=== PATIENT | male | born 1940 | race Caucasian/White ===

== ENCOUNTER 2017-10-13 08:15 | Outpatient (RCR) | payer MEDICARE, OTHER, SELFPAY ==
[2017-03-18 00:31] VITALS: BP 105/61; PULSE 96; RESP 20; TEMP 35.9
[2017-09-29 09:18] VITALS: BP 115/96; PULSE 113; RESP 20; TEMP 37; BMI 65.4
--- NOTE | 2017-09-29 10:57 | PCM.WC.HP ---
(1) Bilateral edema of lower extremity Status: Chronic Current Visit: Yes Code(s): R60.0 - Localized edema (2) Chronic atrial fibrillation Status: Chronic Current Visit: Yes Code(s): I48.2 - Chronic atrial fibrillation (3) Neuropathic pain, leg, bilateral Status: Chronic Current Visit: Yes Code(s): G57.91 - Unspecified mononeuropathy of right lower limb; G57.92 - Unspecified mononeuropathy of left lower limb (4) Nonhealing ulcer of left lower leg Status: Acute Current Visit: Yes Code(s): L97.829 - Non-pressure chronic ulcer of other part of left lower leg with unspecified severity (5) Nonischemic cardiomyopathy Status: Chronic Current Visit: Yes Code(s): I42.8 - Other cardiomyopathies (6) Open wounds involving multiple regions of lower extremity Status: Chronic Current Visit: Yes Code(s): S81.809A - Unspecified open wound, unspecified lower leg, initial encounter (7) Infected open wound Status: Acute Current Visit: Yes Code(s): T14.8XXA - Other injury of unspecified body region, initial encounter; L08.9 - Local infection of the skin and subcutaneous tissue, unspecified History of Present Illness Date of Service: 09/29/17 Chief Complaint: Follow-up left lower leg ulcers History of Wound: 77-year-old white male who had surgery with Dr. 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 Apparently unbeknown to him he developed some open areas on the left lower leg and neglected them. Now he has very large deep ulcers with necrotic tissue and smell on the left lower leg anterior and posterior leg. Patient has been using his Aquacel silver on it. And not wearing his stockings or compression. There is a lot of edema and redness and cellulitis. Past Medical History Past Medical History: Chronic Problems Nonischemic cardiomyopathy (Chronic) Chronic systolic CHF (congestive heart failure) (Chronic) Chronic atrial fibrillation (Chronic) Bilateral edema of lower extremity (Chronic) Open wounds involving multiple regions of lower extremity (Chronic) Neuropathic pain, leg, bilateral (Chronic) Pain, lower extremity (Chronic) PAOD (peripheral arterial occlusive disease) (Chronic) Peripheral vascular disease of extremity with claudication (Chronic) Surgical History: appendectomy, herniorrhaphy, - - Hand surgery Allergies/Adverse Reactions: Allergies codeine Adverse Reaction (Verified 09/29/17 09:53) Nausea Home Medications: Ambulatory Orders Medication Instructions Recorded Aspirin E.C. [Ecotrin] 81 mg PO DAILY@0800 11/06/15 Furosemide [Lasix] 40 mg PO BID 11/06/15 Potassium Chloride [Klor-Con M10] 10 meq PO BID 11/06/15 Apixaban [Eliquis] 5 mg PO BID 05/24/17 Carvedilol [Coreg (Beta Min)] 12.5 mg PO BID 05/24/17 Lisinopril [Zestril] 10 mg PO DAILY 05/24/17 - Family History Maternal No pertinent history Paternal No pertinent history Lives: Spouse/ Significant Other Smoking Status: Former smoker Tobacco Use: Non-smoker Alcohol: None Drugs: None Review of Systems Constitutional: Denies: Chills, Fever Eyes: Denies: Blurred vision, Drainage, Pain HEENT: Denies: Difficulty Hearing, Difficulty Swallowing, Sore Throat, Visual Changes Cardiovascular: Denies: Chest Pain, Palpitations, Syncope Respiratory: Denies: Cough, Shortness of Breath Gastrointestinal: Denies: Abdominal Pain, Nausea, Vomiting Genitourinary: Denies: Dysuria, Frequency Musculoskeletal: Denies: Joint Pain, Muscle pain Skin: Reports: - - Left anterior and posterior ray is open ulcers with necrosis. Denies: Jaundice, Rash Neurological: Denies: Balance problems, Change in Speech, Difficulty swallowing, Focal weakness Psychiatric: Denies: Anxiety, Depression Endocrine: Denies: Change in Body Habitus Hematologic/ Lymphatic: Denies: Adenopathy - Physical Exam Vital Signs Temp Pulse Resp BP 98.6 F 113 H 20 H 115/96 H 09/29/17 09:18 09/29/17 09:18 09/29/17 09:18 09/29/17 09:18 General: Oriented x3, Cooperative, Well developed HEENT: Atraumatic, PERRLA Oral: Moist Mucosa Neck: Supple, No JVD Lungs: Clear to auscultation, Normal air movement Cardiovascular: Regular rate, Regular Rhythm Abdomen: Bowel Sounds Present, Soft, Non Tender, No Hepato-splenomegaly Extremities: No clubbing, No edema Wound Measurements and Assessment WC - Nurse 1 - General Ulcer Measurement Start: 09/29/17 09:18 Freq: Status: Active Protocol: Activity Type Activity Date Activity User E-Sign Co-Sign Detail Recorded Client Recorded Date Recorded By Document 09/29/17 09:18 DL [id number] 09/29/17 09:50 DL 09/29/17 09:18 Wound Center Nurse 1 [Ulcer Assessment Protocol: WC.WD.LOC] #7 R Ray -Current Size (cm) - Length 0.8 -Current Size (cm) - Width 1.6 -Current Size (cm) - Depth 0.1 -Total Square Cm 1.28 -Photo Taken Yes -Classification - Thickness Unclassifiable (Eschar Covered ) -Exudate Amt None Present (0 %) -Wound Margin Thickened -Granulation Amt None Present (0 %) -Necrosis Amt Large (67-100%) -Necrotic Tissue Type Eschar -Structure Exposed N/A -Texture (Cyndy-wound Skin Appearance) Localized Edema -Moisture (Cyndy-wound Skin Appearance No Abnormality ) -Color (Cyndy-wound Skin Appearance) Erythema Hemosiderin Staining -Temperature (Cyndy-wound Skin No Abnormality Appearance) (Pt Warm) -Foul Odor after Cleansing Yes -Anesthetic Used 4% Lidocaine Solution #6 L Ray -Current Size (cm) - Length 11.1 -Current Size (cm) - Width 4.1 -Current Size (cm) - Depth 0.5 -Total Square Cm 45.51 -Photo Taken Yes -Exudate Amt Medium (34-66%) -Exudate Type Serosanguineous -Wound Margin Thickened -Granulation Amt None Present (0 %) -Necrosis Amt Large (67-100%) -Necrotic Tissue Type Adherent Slough -Structure Exposed N/A -Texture (Cyndy-wound Skin Appearance) Localized Edema Scarring -Moisture (Cyndy-wound Skin Appearance No Abnormality ) -Color (Cyndy-wound Skin Appearance) Erythema Hemosiderin Staining -Temperature (Cyndy-wound Skin No Abnormality Appearance) (Pt Warm) -Ulcer Cleansing Wound Cleanser -Foul Odor after Cleansing Yes -Anesthetic Used 4% Lidocaine Solution #5 LLE Post -Current Size (cm) - Length 7.3 -Current Size (cm) - Width 5.5 -Current Size (cm) - Depth 0.5 -Total Square Cm 40.15 -Photo Taken Yes -Classification - Thickness Full Thickness without Exposed Support Structure -Exudate Amt Medium (34-66%) -Exudate Type Serosanguineous -Wound Margin Thickened -Granulation Amt Small (1-33%) -Granulation Quality Red -Necrosis Amt Large (67-100%) -Necrotic Tissue Type Adherent Slough -Structure Exposed N/A -Texture (Cyndy-wound Skin Appearance) Localized Edema Scarring -Moisture (Cyndy-wound Skin Appearance No Abnormality ) -Color (Cyndy-wound Skin Appearance) Erythema Hemosiderin Staining -Temperature (Cyndy-wound Skin No Abnormality Appearance) (Pt Warm) -Ulcer Cleansing Wound Cleanser -Foul Odor after Cleansing Yes -Anesthetic Used 4% Lidocaine Solution [Edema Assessment] -Right Calf (cm) 39.5 -Right Ankle (cm) 25.9 -Left Calf (cm) 45 -Left Ankle (cm) 25 WC - Nurse 2 - General Ulcer CM Notes Start: 09/29/17 09:18 Freq: Status: Active Protocol: Activity Type Activity Date Activity User E-Sign Co-Sign Detail Recorded Client Recorded Date Recorded By Document 09/29/17 10:12 MW [id number] 09/29/17 10:36 MW 09/29/17 10:12 Wound Center Nurse 2 [Procedure/Treatment] #7 R Ray -Time 10:24 -Correct Patient Yes -Correct Side, Site, Position Yes -Correct Procedure Yes -Procedure Performed No -Post Debridement Size (cm) - Length 0.8 -Post Debridement Size (cm) - Width 1.6 -Post Debridement Size (cm) - Depth 0.1 -Total Square Cm 1.28 -Wound/Ulcer Outcome Not Healed -Ulcer Cleansing Not Cleansed -Foul Odor after Cleansing No -Bioengineered Tissue No -Cetacaine [place] No -Bleeding Controlled with NA -Treatment Response Procedure Tolerated Well #6 L Ray -Time 10:22 -Correct Patient Yes -Correct Side, Site, Position Yes -Correct Procedure Yes -Procedure Performed Yes -Type of Procedure Debridement -Clinical Debridement Subcutaneous -Post Debridement Size (cm) - Length 11.3 -Post Debridement Size (cm) - Width 2.5 -Post Debridement Size (cm) - Depth 0.3 -Total Square Cm 28.25 -Wound/Ulcer Outcome Not Healed -Ulcer Cleansing Rinsed/ Irrigated with Saline -Foul Odor after Cleansing No -Bioengineered Tissue No -Cetacaine [place] No -Bleeding Controlled with Pressure -Treatment Response Procedure Tolerated Well #5 LLE Post -Time 10:23 -Correct Patient Yes -Correct Side, Site, Position Yes -Correct Procedure Yes -Procedure Performed Yes -Type of Procedure Debridement -Clinical Debridement Subcutaneous -Post Debridement Size (cm) - Length 8.8 -Post Debridement Size (cm) - Width 3.5 -Post Debridement Size (cm) - Depth 0.3 -Total Square Cm 30.80 -Wound/Ulcer Outcome Not Healed -Ulcer Cleansing Rinsed/ Irrigated with Saline -Foul Odor after Cleansing No -Bioengineered Tissue No -Cetacaine [place] No -Bleeding Controlled with Pressure -Treatment Response Procedure Tolerated Well [See Physician Procedure note for Specifics] Pain Scale: 0-10 Numeric [Pain] -Is Patient Pain Free? Yes Musculoskeletal: No Tenderness to Palpation of Joints or Extremities Lymphatic: No Cervical, Supraclavicular, or Inguinal Adenopathy Neurological: Cranial nerves II-XII grossly intact, Neuro grossly intact Psych/Mental Status: Normal Affect, Appropriate, Alert and oriented to time, place, person, mood and affect Debridement Note Post-Debridement Measurements/Treatment WC - Nurse 2 - General Ulcer CM Notes Start: 09/29/17 09:18 Freq: Status: Active Protocol: Activity Type Activity Date Activity User E-Sign Co-Sign Detail Recorded Client Recorded Date Recorded By Document 09/29/17 10:12 MW [id number] 09/29/17 10:36 MW 09/29/17 10:12 Wound Center Nurse 2 #7 R Ray -Time 10:24 -Correct Patient Yes -Correct Side, Site, Position Yes -Correct Procedure Yes -Procedure Performed No -Post Debridement Size (cm) - Length 0.8 -Post Debridement Size (cm) - Width 1.6 -Post Debridement Size (cm) - Depth 0.1 -Total Square Cm 1.28 -Wound/Ulcer Outcome Not Healed -Ulcer Cleansing Not Cleansed -Foul Odor after Cleansing No -Bioengineered Tissue No -Cetacaine [place] No -Bleeding Controlled with NA -Treatment Response Procedure Tolerated Well #6 L Ray -Time 10:22 -Correct Patient Yes -Correct Side, Site, Position Yes -Correct Procedure Yes -Procedure Performed Yes -Type of Procedure Debridement -Clinical Debridement Subcutaneous -Post Debridement Size (cm) - Length 11.3 -Post Debridement Size (cm) - Width 2.5 -Post Debridement Size (cm) - Depth 0.3 -Total Square Cm 28.25 -Wound/Ulcer Outcome Not Healed -Ulcer Cleansing Rinsed/ Irrigated with Saline -Foul Odor after Cleansing No -Bioengineered Tissue No -Cetacaine [place] No -Bleeding Controlled with Pressure -Treatment Response Procedure Tolerated Well #5 LLE Post -Time 10:23 -Correct Patient Yes -Correct Side, Site, Position Yes -Correct Procedure Yes -Procedure Performed Yes -Type of Procedure Debridement -Clinical Debridement Subcutaneous -Post Debridement Size (cm) - Length 8.8 -Post Debridement Size (cm) - Width 3.5 -Post Debridement Size (cm) - Depth 0.3 -Total Square Cm 30.80 -Wound/Ulcer Outcome Not Healed -Ulcer Cleansing Rinsed/ Irrigated with Saline -Foul Odor after Cleansing No -Bioengineered Tissue No -Cetacaine [place] No -Bleeding Controlled with Pressure -Treatment Response Procedure Tolerated Well Pain Scale: 0-10 Numeric Is Patient Pain Free? Yes Wound debrided: Left lower posterior ulcer Type of Debridement: Excisional debridement Anesthesia Used: 5% Lidocaine Gel Depth: Down to and including healthy tissue, in the subcutaneous layer Percentage of wound debrided: 100 Instrument Used: 5mm curette, 7mm curette, #15 blade, Forceps, - - Others Tissue Removed: Necrosis devitalized tissue slough Severity: Limited To Skin Breakdown Amount of bleeding with debridement: Mild Bleeding Controlled with: Compression and gauze Patient tolerated procedure well - Additional Wound Wound debrided: Left anterior ray ulcer Type of Debridement: Excisional debridement Anesthesia Used: 5% Lidocaine Gel Depth: Down to and including healthy tissue, in the subcutaneous layer Percentage of wound debrided: 100 Instrument Used: 7mm curette, #15 blade, Forceps - Scissors, - - Scissors Tissue Removed: Necrotic slough devitalized tissue Severity: Limited To Skin Breakdown Amount of bleeding with debridement: Mild Bleeding Controlled with: Compression and gauze Patient tolerated procedure: Patient tolerated procedure well Assessment/Plan Cultures of all lower leg ulcers lab work CBC with differential pre-albumin and a CMP Active Problems Infected open wound (Acute) Nonischemic cardiomyopathy (Chronic) Chronic atrial fibrillation (Chronic) Bilateral edema of lower extremity (Chronic) Open wounds involving multiple regions of lower extremity (Chronic) Neuropathic pain, leg, bilateral (Chronic) Nonhealing ulcer of left lower leg (Acute) Assessment: bilateral lower leg edema. Cellulitis,. Bilateral lower leg edema. Left lower leg ulcer-. 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 Atrial fib to onset. Peripheral vascular disease Plan: Wash bilateral lower legs with Hibiclens apply Santyl to all open areas cover with gauze moistened and then Adaptic gauze and Sanjuana with a double layer Tubigrip to both legs. Follow-up one week. Nursing notes reviewed
[2017-10-06 08:31] VITALS: BP 85/59; PULSE 100; RESP 18; TEMP 37.1; BMI 65.4
--- NOTE | 2017-10-06 09:47 | PN.PCM_ITS ---
(1) Bilateral edema of lower extremity Status: Chronic Current Visit: Yes Code(s): R60.0 - Localized edema (2) Chronic atrial fibrillation Status: Chronic Current Visit: Yes Code(s): I48.2 - Chronic atrial fibrillation (3) Neuropathic pain, leg, bilateral Status: Chronic Current Visit: Yes Code(s): G57.91 - Unspecified mononeuropathy of right lower limb; G57.92 - Unspecified mononeuropathy of left lower limb (4) Nonhealing ulcer of left lower leg Status: Acute Current Visit: Yes Code(s): L97.829 - Non-pressure chronic ulcer of other part of left lower leg with unspecified severity (5) Nonischemic cardiomyopathy Status: Chronic Current Visit: Yes Code(s): I42.8 - Other cardiomyopathies (6) Open wounds involving multiple regions of lower extremity Status: Chronic Current Visit: Yes Code(s): S81.809A - Unspecified open wound, unspecified lower leg, initial encounter (7) Infected open wound Status: Acute Current Visit: Yes Code(s): T14.8XXA - Other injury of unspecified body region, initial encounter; L08.9 - Local infection of the skin and subcutaneous tissue, unspecified Type of Wound Date of Service: 10/06/17 Chief Complaint: Follow-up on bilateral lower leg ulcers History of Wound: 77-year-old white male who had surgery with Dr. 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 Apparently unbeknown to him he developed some open areas on the left lower leg and neglected them. Now he has very large deep ulcers with necrotic tissue and smell on the left lower leg anterior and posterior leg. Patient has been using his Aquacel silver on it. And not wearing his stockings or compression. There is a lot of edema and redness and cellulitis. Progress of Wound: The right lower leg ulcer is healed. The left anterior and posterior open ulcers are half the size they were last week still has a lot of yellow slough but much improved. Smell is gone and patient has been taking sulfa and metronidazole which were correct picks from cultures they were sensitive to both for he is bacteria and anaerobes. She is tolerating medications and treatments well swelling is much improved also wearing a double layer Tubigrip. His history of coxsackie a virus he still goes in a congestive heart failure he is BNP was over 500 his pre-albumin was 22 his regular albumin his blood was within normal limits shows some slight anemia on labs suggested he take iron. - Physical Exam Vital Signs Temp Pulse Resp BP 98.7 F 100 18 85/59 L 10/06/17 08:31 10/06/17 08:31 10/06/17 08:31 10/06/17 08:31 General: Oriented x3, Cooperative, Well developed HEENT: Atraumatic, PERRLA Oral: Moist Mucosa Neck: Supple, No JVD Lungs: Clear to auscultation, Normal air movement Cardiovascular: Regular rate, Regular Rhythm Abdomen: Bowel Sounds Present, Soft, Non Tender, No Hepato-splenomegaly Extremities: No clubbing, No edema, - - Open ulcers anterior and posterior left lower leg Wound Measurements and Assessment WC - Nurse 1 - General Ulcer Measurement Start: 09/29/17 09:18 Freq: Status: Active Protocol: Activity Type Activity Date Activity User E-Sign Co-Sign Detail Recorded Client Recorded Date Recorded By Document 10/06/17 08:31 [id number] 10/06/17 08:51 10/06/17 08:31 Wound Center Nurse 1 [Ulcer Assessment Protocol: .WD.LOC] #7 R Ray -Combined with other wound No -Current Size (cm) - Length 0 -Current Size (cm) - Width 0 -Current Size (cm) - Depth 0 -Total Square Cm 0 -Date of Last Picture (Recall this 10/06/17 field) -Photo Taken Yes -Epithelialization Large 67-100% -Tunneling No -Undermining/Tunneling No -Circular Undermining No -Classification - Thickness Full Thickness without Exposed Support Structure -Exudate Amt None Present (0 %) -Wound Margin Distinct, Outline Attached -Granulation Amt Large (67-100%) -Granulation Quality [place] -Slough/Fibrin No -Necrosis Amt None Present (0 %) -Structure Exposed None/Limited to Skin Breakdown -Texture (Cyndy-wound Skin Appearance) Localized Edema -Moisture (Cyndy-wound Skin Appearance Dry/Scaly ) -Color (Cyndy-wound Skin Appearance) Erythema Hemosiderin Staining -Temperature (Cyndy-wound Skin No Abnormality Appearance) (Pt Warm) -Tenderness on Palpation (Cyndy-wound No Skin Appearance) -Ulcer Cleansing Rinsed/ Irrigated with Saline -Foul Odor after Cleansing No -Anesthetic Used 5% Lidocaine Gel #6 L Ray -Combined with other wound No -Current Size (cm) - Length 9.7 -Current Size (cm) - Width 3.3 -Current Size (cm) - Depth 0.2 -Total Square Cm 32.01 -Photo Taken No -Epithelialization Small 1-33% -Tunneling No -Undermining/Tunneling No -Circular Undermining No -Classification - Thickness Full Thickness without Exposed Support Structure -Exudate Amt Large (67-100%) -Exudate Type Serosanguineous -Wound Margin Fibrotic Scar, Thickened Scar -Granulation Amt Small (1-33%) -Granulation Quality [place] -Slough/Fibrin Yes -Necrosis Amt Large (67-100%) -Necrotic Tissue Type Adherent Slough -Structure Exposed Fascia Fat Layer Exposed -Texture (Cyndy-wound Skin Appearance) Localized Edema Scarring -Color (Cyndy-wound Skin Appearance) Erythema Hemosiderin Staining -Temperature (Cyndy-wound Skin No Abnormality Appearance) (Pt Warm) -Tenderness on Palpation (Cyndy-wound No Skin Appearance) -Ulcer Cleansing Rinsed/ Irrigated with Saline -Foul Odor after Cleansing No -Anesthetic Used 5% Lidocaine Gel #5 LLE Post -Combined with other wound No -Current Size (cm) - Length 5.0 -Current Size (cm) - Width 3.0 -Current Size (cm) - Depth 0.2 -Total Square Cm 15.00 -Photo Taken No -Epithelialization Small 1-33% -Tunneling No -Undermining/Tunneling No -Circular Undermining No -Classification - Thickness Full Thickness without Exposed Support Structure -Exudate Amt Medium (34-66%) -Exudate Type Serous -Wound Margin Fibrotic Scar, Thickened Scar -Granulation Amt Small (1-33%) -Granulation Quality [place] -Slough/Fibrin Yes -Necrosis Amt Medium (34-66%) -Necrotic Tissue Type Adherent Slough -Structure Exposed Fascia Fat Layer Exposed -Texture (Cyndy-wound Skin Appearance) Localized Edema Scarring -Moisture (Cyndy-wound Skin Appearance No Abnormality ) -Color (Cyndy-wound Skin Appearance) Erythema Hemosiderin Staining -Temperature (Cyndy-wound Skin No Abnormality Appearance) (Pt Warm) -Tenderness on Palpation (Cyndy-wound No Skin Appearance) -Ulcer Cleansing Rinsed/ Irrigated with Saline -Foul Odor after Cleansing No -Anesthetic Used 5% Lidocaine Gel [Edema Assessment] -Lower Limb Edema Present Yes -Right Calf (cm) 37.0 -Right Ankle (cm) 25.5 -Left Calf (cm) 41.8 -Left Ankle (cm) 26.0 BETI - Nurse 2 - General Ulcer CM Notes Start: 09/29/17 09:18 Freq: Status: Active Protocol: Activity Type Activity Date Activity User E-Sign Co-Sign Detail Recorded Client Recorded Date Recorded By Document 10/06/17 09:12 MW [id number] 10/06/17 09:17 MW 10/06/17 09:12 Wound Center Nurse 2 [Procedure/Treatment] #6 L Ray -Time 09:12 -Correct Patient Yes -Correct Side, Site, Position Yes -Correct Procedure Yes -Procedure Performed Yes -Type of Procedure Debridement -Clinical Debridement Subcutaneous -Post Debridement Size (cm) - Length 9.8 -Post Debridement Size (cm) - Width 3.5 -Post Debridement Size (cm) - Depth 0.3 -Total Square Cm 34.30 -Wound/Ulcer Outcome Not Healed -Ulcer Cleansing Wound Cleanser -Foul Odor after Cleansing No -Bioengineered Tissue No -Cetacaine [place] No -Bleeding Controlled with Pressure -Treatment Response Procedure Tolerated Well #5 LLE Post -Time 09:13 -Correct Patient Yes -Correct Side, Site, Position Yes -Correct Procedure Yes -Procedure Performed Yes -Type of Procedure Debridement -Clinical Debridement Subcutaneous -Post Debridement Size (cm) - Length 8.7 -Post Debridement Size (cm) - Width 2.5 -Post Debridement Size (cm) - Depth 0.2 -Total Square Cm 21.75 -Wound/Ulcer Outcome Amputation Anticipated -Ulcer Cleansing Rinsed/ Irrigated with Saline -Foul Odor after Cleansing No -Bioengineered Tissue No -Bleeding Controlled with Pressure -Treatment Response Procedure Tolerated Well [See Physician Procedure note for Specifics] Pain Scale: 0-10 Numeric [Pain] -Is Patient Pain Free? Yes Musculoskeletal: No Tenderness to Palpation of Joints or Extremities Lymphatic: No Cervical, Supraclavicular, or Inguinal Adenopathy Neurological: Cranial nerves II-XII grossly intact, Neuro grossly intact Psych/Mental Status: Normal Affect, Appropriate Debridement Note Post-Debridement Measurements/Treatment BETI - Nurse 2 - General Ulcer CM Notes Start: 09/29/17 09:18 Freq: Status: Active Protocol: Activity Type Activity Date Activity User E-Sign Co-Sign Detail Recorded Client Recorded Date Recorded By Document 09/29/17 10:12 MW [id number] 09/29/17 10:36 MW Document 10/06/17 09:12 MW [id number] 10/06/17 09:17 MW 09/29/17 10/06/17 10:12 09:12 Wound Center Nurse 2 #7 R Ray -Time 10:24 -Correct Patient Yes -Correct Side, Site, Position Yes -Correct Procedure Yes -Procedure Performed No -Post Debridement Size (cm) - Length 0.8 -Post Debridement Size (cm) - Width 1.6 -Post Debridement Size (cm) - Depth 0.1 -Total Square Cm 1.28 -Wound/Ulcer Outcome Not Healed -Ulcer Cleansing Not Cleansed -Foul Odor after Cleansing No -Bioengineered Tissue No -Cetacaine [place] No -Bleeding Controlled with NA -Treatment Response Procedure Tolerated Well #6 L Ray -Time 10:22 09:12 -Correct Patient Yes Yes -Correct Side, Site, Position Yes Yes -Correct Procedure Yes Yes -Procedure Performed Yes Yes -Type of Procedure Debridement Debridement -Clinical Debridement Subcutaneous Subcutaneous -Post Debridement Size (cm) - Length 11.3 9.8 -Post Debridement Size (cm) - Width 2.5 3.5 -Post Debridement Size (cm) - Depth 0.3 0.3 -Total Square Cm 28.25 34.30 -Wound/Ulcer Outcome Not Healed Not Healed -Ulcer Cleansing Rinsed/ Wound Cleanser Irrigated with Saline -Foul Odor after Cleansing No No -Bioengineered Tissue No No -Cetacaine [place] No No -Bleeding Controlled with Pressure Pressure -Treatment Response Procedure Procedure Tolerated Well Tolerated Well #5 LLE Post -Time 10:23 09:13 -Correct Patient Yes Yes -Correct Side, Site, Position Yes Yes -Correct Procedure Yes Yes -Procedure Performed Yes Yes -Type of Procedure Debridement Debridement -Clinical Debridement Subcutaneous Subcutaneous -Post Debridement Size (cm) - Length 8.8 8.7 -Post Debridement Size (cm) - Width 3.5 2.5 -Post Debridement Size (cm) - Depth 0.3 0.2 -Total Square Cm 30.80 21.75 -Wound/Ulcer Outcome Not Healed Amputation Anticipated -Ulcer Cleansing Rinsed/ Rinsed/ Irrigated with Irrigated with Saline Saline -Foul Odor after Cleansing No No -Bioengineered Tissue No No -Cetacaine [place] No -Bleeding Controlled with Pressure Pressure -Treatment Response Procedure Procedure Tolerated Well Tolerated Well Pain Scale: 0-10 Numeric Is Patient Pain Free? Yes Yes Wound debrided: Anterior lower ray Type of Debridement: Excisional debridement Anesthesia Used: 5% Lidocaine Gel Depth: Down to and including healthy tissue, in the subcutaneous layer Percentage of wound debrided: 100 Instrument Used: 5mm curette Tissue Removed: Slough and some fibrin Severity: Limited To Skin Breakdown Amount of bleeding with debridement: Mild Bleeding Controlled with: Compression and gauze Patient tolerated procedure well - Additional Wound Wound debrided: Posterior left lower leg other Type of Debridement: Excisional debridement Anesthesia Used: 5% Lidocaine Gel Depth: Down to and including healthy tissue, in the subcutaneous layer Percentage of wound debrided: 100 Instrument Used: 5mm curette Tissue Removed: Slough devitalized tissue Severity: Limited To Skin Breakdown Amount of bleeding with debridement: Mild Bleeding Controlled with: Compression and gauze Patient tolerated procedure: Patient tolerated procedure well Assessment/Plan Active Problems Infected open wound (Acute) Nonischemic cardiomyopathy (Chronic) Chronic atrial fibrillation (Chronic) Bilateral edema of lower extremity (Chronic) Open wounds involving multiple regions of lower extremity (Chronic) Neuropathic pain, leg, bilateral (Chronic) Nonhealing ulcer of left lower leg (Acute) Assessment: bilateral lower leg edema. Cellulitis,. Bilateral lower leg edema. Left lower leg ulcer-. Infection left lower leg ulcer. 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 Atrial fib to onset. Peripheral vascular disease Plan: Wash bilateral lower legs with Hibiclens apply Santyl to all open areas cover with gauze moistened and then Adaptic gauze and Sanjuana with a double layer Tubigrip to both legs. Follow-up one week. Nursing notes reviewed
[2017-10-13 08:26] VITALS: BP 109/72; PULSE 102; RESP 18; TEMP 36.6; BMI 65.4
--- NOTE | 2017-10-13 09:44 | PN.PCM_ITS ---
(1) Bilateral edema of lower extremity Status: Chronic Current Visit: Yes Code(s): R60.0 - Localized edema (2) Chronic atrial fibrillation Status: Chronic Current Visit: Yes Code(s): I48.2 - Chronic atrial fibrillation (3) Neuropathic pain, leg, bilateral Status: Chronic Current Visit: Yes Code(s): G57.91 - Unspecified mononeuropathy of right lower limb; G57.92 - Unspecified mononeuropathy of left lower limb (4) Nonhealing ulcer of left lower leg Status: Acute Current Visit: Yes Code(s): L97.829 - Non-pressure chronic ulcer of other part of left lower leg with unspecified severity (5) Nonischemic cardiomyopathy Status: Chronic Current Visit: Yes Code(s): I42.8 - Other cardiomyopathies (6) Open wounds involving multiple regions of lower extremity Status: Chronic Current Visit: Yes Code(s): S81.809A - Unspecified open wound, unspecified lower leg, initial encounter (7) Infected open wound Status: Acute Current Visit: Yes Code(s): T14.8XXA - Other injury of unspecified body region, initial encounter; L08.9 - Local infection of the skin and subcutaneous tissue, unspecified Type of Wound Date of Service: 10/13/17 Chief Complaint: Follow-up on bilateral lower leg ulcers History of Wound: 77-year-old white male who had surgery with Dr. 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 Apparently unbeknown to him he developed some open areas on the left lower leg and neglected them. Now he has very large deep ulcers with necrotic tissue and smell on the left lower leg anterior and posterior leg. Patient has been using his Aquacel silver on it. And not wearing his stockings or compression. There is a lot of edema and redness and cellulitis. Progress of Wound: The right lower leg ulcer is healed. The left anterior and posterior open ulcers still has a lot of yellow slough but improved. Smell is gone and patient has been taking sulfa and metronidazole which were correct picks from cultures they were sensitive to both for he is bacteria and anaerobes. he is tolerating medications and treatments well swelling is much improved also wearing a double layer Tubigrip. His history of coxsackie a virus he still goes in a congestive heart failure he is BNP was over 500 his pre -albumin was 22 his regular albumin his blood was within normal limits shows some slight anemia on labs suggested he take iron. We have applied for substitute scan for both the ulcers I think he would do very well. Currently we are using Santyl just to clean out all the slough having a hard time on the anterior ulcer to get most of the slough off using a lot of sharps to debride. - Physical Exam Vital Signs Temp Pulse Resp BP 98 F 102 H 18 109/72 10/13/17 08:26 10/13/17 08:26 10/13/17 08:26 10/13/17 08:26 General: Oriented x3, Cooperative, Well developed HEENT: Atraumatic, PERRLA Oral: Moist Mucosa Neck: Supple, No JVD Lungs: Clear to auscultation, Normal air movement Cardiovascular: Regular rate, Regular Rhythm Abdomen: Bowel Sounds Present, Soft, Non Tender, No Hepato-splenomegaly Extremities: No clubbing, No edema, - - Left lower leg anterior posterior open ulcer Skin: Ulcer/ Wound Wound Measurements and Assessment - Nurse 1 - General Ulcer Measurement Start: 09/29/17 09:18 Freq: Status: Active Protocol: Activity Type Activity Date Activity User E-Sign Co-Sign Detail Recorded Client Recorded Date Recorded By Document 10/13/17 08:26 DL [id number] 10/13/17 08:38 DL 10/13/17 08:26 Wound Center Nurse 1 [Ulcer Assessment Protocol: WC.WD.LOC] #6 L [place] -Current Size (cm) - Length 9.8 -Current Size (cm) - Width 2.8 -Current Size (cm) - Depth 0.3 -Total Square Cm 27.44 -Photo Taken No -Exudate Amt Large (67-100%) -Exudate Type Serosanguineous -Wound Margin Distinct, Outline Attached -Granulation Amt Small (1-33%) -Granulation Quality [place] -Necrosis Amt Large (67-100%) -Necrotic Tissue Type Adherent Slough -Structure Exposed N/A -Texture (Cyndy-wound Skin Appearance) Scarring -Moisture (Cyndy-wound Skin Appearance No Abnormality ) -Color (Cyndy-wound Skin Appearance) Hemosiderin Staining -Temperature (Cyndy-wound Skin No Abnormality Appearance) (Pt Warm) -Tenderness on Palpation (Cyndy-wound No Skin Appearance) -Ulcer Cleansing Wound Cleanser -Foul Odor after Cleansing No -Anesthetic Used 4% Lidocaine Solution #5 LLE Post -Current Size (cm) - Length 8.3 -Current Size (cm) - Width 2.7 -Current Size (cm) - Depth 0.3 -Total Square Cm 22.41 -Photo Taken No -Exudate Amt Large (67-100%) -Exudate Type Serosanguineous -Wound Margin Distinct, Outline Attached -Granulation Amt Small (1-33%) -Granulation Quality [place] -Necrosis Amt Large (67-100%) -Necrotic Tissue Type Adherent Slough -Structure Exposed N/A -Texture (Cyndy-wound Skin Appearance) Scarring -Moisture (Cyndy-wound Skin Appearance No Abnormality ) -Color (Cyndy-wound Skin Appearance) Hemosiderin Staining -Temperature (Cyndy-wound Skin No Abnormality Appearance) (Pt Warm) -Tenderness on Palpation (Cyndy-wound No Skin Appearance) -Ulcer Cleansing Wound Cleanser -Foul Odor after Cleansing No -Anesthetic Used 4% Lidocaine Solution [Edema Assessment] -Right Calf (cm) 35.3 -Right Ankle (cm) 25.8 -Left Calf (cm) 39 -Left Ankle (cm) 25 WC - Nurse 2 - General Ulcer CM Notes Start: 09/29/17 09:18 Freq: Status: Active Protocol: Activity Type Activity Date Activity User E-Sign Co-Sign Detail Recorded Client Recorded Date Recorded By Document 10/13/17 09:00 MW [id number] 10/13/17 09:09 MW 10/13/17 09:00 Wound Center Nurse 2 [Procedure/Treatment] #6 L [place] -Time 09:00 -Correct Patient Yes -Correct Side, Site, Position Yes -Correct Procedure Yes -Procedure Performed Yes -Type of Procedure Debridement -Clinical Debridement Subcutaneous -Post Debridement Size (cm) - Length 9.7 -Post Debridement Size (cm) - Width 3.5 -Post Debridement Size (cm) - Depth 0.3 -Total Square Cm 33.95 -Wound/Ulcer Outcome Not Healed -Ulcer Cleansing Rinsed/ Irrigated with Saline -Foul Odor after Cleansing No -Bioengineered Tissue No -Cetacaine [place] No -Bleeding Controlled with Pressure -Treatment Response Procedure Tolerated Well #5 LLE Post -Time 09:00 -Correct Patient Yes -Correct Side, Site, Position Yes -Correct Procedure Yes -Procedure Performed Yes -Type of Procedure Debridement -Clinical Debridement Subcutaneous -Post Debridement Size (cm) - Length 9.0 -Post Debridement Size (cm) - Width 2.0 -Post Debridement Size (cm) - Depth 0.2 -Total Square Cm 18.00 -Wound/Ulcer Outcome Not Healed -Ulcer Cleansing Rinsed/ Irrigated with Saline -Foul Odor after Cleansing No -Bioengineered Tissue No -Cetacaine [place] No -Bleeding Controlled with Pressure -Treatment Response Procedure Tolerated Well [See Physician Procedure note for Specifics] Pain Scale: 0-10 Numeric [Pain] -Is Patient Pain Free? Yes Musculoskeletal: No Tenderness to Palpation of Joints or Extremities Lymphatic: No Cervical, Supraclavicular, or Inguinal Adenopathy Neurological: Cranial nerves II-XII grossly intact, Neuro grossly intact Psych/Mental Status: Normal Affect, Appropriate, Alert and oriented to time, place, person, mood and affect Debridement Note Post-Debridement Measurements/Treatment WC - Nurse 2 - General Ulcer CM Notes Start: 09/29/17 09:18 Freq: Status: Active Protocol: Activity Type Activity Date Activity User E-Sign Co-Sign Detail Recorded Client Recorded Date Recorded By Document 09/29/17 10:12 MW [id number] 09/29/17 10:36 MW Document 10/06/17 09:12 MW [id number] 10/06/17 09:17 MW Document 10/13/17 09:00 MW [id number] 10/13/17 09:09 MW 09/29/17 10/06/17 10/13/17 10:12 09:12 09:00 Wound Center Nurse 2 #7 R Christensen -Time 10:24 -Correct Patient Yes -Correct Side, Site, Position Yes -Correct Procedure Yes -Procedure Performed No -Post Debridement Size (cm) - Length 0.8 -Post Debridement Size (cm) - Width 1.6 -Post Debridement Size (cm) - Depth 0.1 -Total Square Cm 1.28 -Wound/Ulcer Outcome Not Healed -Ulcer Cleansing Not Cleansed -Foul Odor after Cleansing No -Bioengineered Tissue No -Cetacaine [place] No -Bleeding Controlled with NA -Treatment Response Procedure Tolerated Well #6 L [place]ensen -Time 10:22 09:12 09:00 -Correct Patient Yes Yes Yes -Correct Side, Site, Position Yes Yes Yes -Correct Procedure Yes Yes Yes -Procedure Performed Yes Yes Yes -Type of Procedure Debridement Debridement Debridement -Clinical Debridement Subcutaneous Subcutaneous Subcutaneous -Post Debridement Size (cm) - Length 11.3 9.8 9.7 -Post Debridement Size (cm) - Width 2.5 3.5 3.5 -Post Debridement Size (cm) - Depth 0.3 0.3 0.3 -Total Square Cm 28.25 34.30 33.95 -Wound/Ulcer Outcome Not Healed Not Healed Not Healed -Ulcer Cleansing Rinsed/ Wound Cleanser Rinsed/ Irrigated with Irrigated with Saline Saline -Foul Odor after Cleansing No No No -Bioengineered Tissue No No No -Cetacaine [place] No No No -Bleeding Controlled with Pressure Pressure Pressure -Treatment Response Procedure Procedure Procedure Tolerated Well Tolerated Well Tolerated Well #5 LLE Post -Time 10:23 09:13 09:00 -Correct Patient Yes Yes Yes -Correct Side, Site, Position Yes Yes Yes -Correct Procedure Yes Yes Yes -Procedure Performed Yes Yes Yes -Type of Procedure Debridement Debridement Debridement -Clinical Debridement Subcutaneous Subcutaneous Subcutaneous -Post Debridement Size (cm) - Length 8.8 8.7 9.0 -Post Debridement Size (cm) - Width 3.5 2.5 2.0 -Post Debridement Size (cm) - Depth 0.3 0.2 0.2 -Total Square Cm 30.80 21.75 18.00 -Wound/Ulcer Outcome Not Healed Amputation Not Healed Anticipated -Ulcer Cleansing Rinsed/ Rinsed/ Rinsed/ Irrigated with Irrigated with Irrigated with Saline Saline Saline -Foul Odor after Cleansing No No No -Bioengineered Tissue No No No -Cetacaine [place] No No -Bleeding Controlled with Pressure Pressure Pressure -Treatment Response Procedure Procedure Procedure Tolerated Well Tolerated Well Tolerated Well Pain Scale: 0-10 Numeric Is Patient Pain Free? Yes Yes Yes Wound debrided: Left lower leg anterior ulcer Type of Debridement: Excisional debridement Anesthesia Used: 5% Lidocaine Gel Depth: Down to and including healthy tissue, in the subcutaneous layer Percentage of wound debrided: 100 Instrument Used: 5mm curette, #15 blade Tissue Removed: Slough and devitalized tissue Severity: Limited To Skin Breakdown Amount of bleeding with debridement: Mild Bleeding Controlled with: Compression and gauze Patient tolerated procedure well Assessment/Plan Active Problems Infected open wound (Acute) Nonischemic cardiomyopathy (Chronic) Chronic atrial fibrillation (Chronic) Bilateral edema of lower extremity (Chronic) Open wounds involving multiple regions of lower extremity (Chronic) Neuropathic pain, leg, bilateral (Chronic) Nonhealing ulcer of left lower leg (Acute) Assessment: bilateral lower leg edema. Cellulitis,. Bilateral lower leg edema. Left lower leg ulcer-. Infection left lower leg ulcer. 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 Atrial fib to onset. Peripheral vascular disease Plan: Wash bilateral lower legs with Hibiclens apply Santyl to all open areas cover with gauze moistened and then Adaptic gauze and Sanjuana with a double layer Tubigrip to both legs. Follow-up one week. Continue to apply for substitutes skin. Nursing notes reviewed
== END 2017-10-18 23:59 ==
LOC: WC 08:15
PROVIDERS: Family Provider Internal Medicine; PCP Internal Medicine; Visit Provider Nurse Practitioner
DX: I73.9 Peripheral vascular disease, unspecified (principal); L97.821 Non-pressure chronic ulcer of other part of left lower leg limited to breakdown of skin; I48.2 Chronic atrial fibrillation; G57.91 Unspecified mononeuropathy of right lower limb; I42.8 Other cardiomyopathies; R60.0 Localized edema; L03.116 Cellulitis of left lower limb; I50.22 Chronic systolic (congestive) heart failure; Z87.891 Personal history of nicotine dependence
CPT/HCPCS: 11042; 11045; 87070; 87075; 87076; 87077; 87186; 87205; 99213; G0463

== ENCOUNTER 2017-11-10 08:00 | Outpatient (RCR) | payer MEDICARE, OTHER, SELFPAY ==
[2017-10-13 08:26] VITALS: BP 109/72
[2017-10-19 00:04] VITALS: PULSE 102; RESP 18; TEMP 36.6
[2017-10-20 08:34] VITALS: BP 128/87; PULSE 126; RESP 18; TEMP 36.7; BMI 65.4
--- NOTE | 2017-10-20 10:51 | PCM.WC.PN ---
(1) Infected open wound Status: Acute Current Visit: Yes Code(s): T14.8XXA - Other injury of unspecified body region, initial encounter; L08.9 - Local infection of the skin and subcutaneous tissue, unspecified (2) Nonhealing ulcer of left lower leg Status: Acute Current Visit: Yes Code(s): L97.829 - Non-pressure chronic ulcer of other part of left lower leg with unspecified severity (3) Bilateral edema of lower extremity Status: Chronic Current Visit: Yes Code(s): R60.0 - Localized edema (4) Chronic atrial fibrillation Status: Chronic Current Visit: Yes Code(s): I48.2 - Chronic atrial fibrillation (5) Chronic systolic CHF (congestive heart failure) Status: Chronic Current Visit: Yes Code(s): I50.22 - Chronic systolic (congestive) heart failure (6) Neuropathic pain, leg, bilateral Status: Chronic Current Visit: Yes Code(s): G57.91 - Unspecified mononeuropathy of right lower limb; G57.92 - Unspecified mononeuropathy of left lower limb (7) Nonischemic cardiomyopathy Status: Chronic Current Visit: Yes Code(s): I42.8 - Other cardiomyopathies Type of Wound Date of Service: 10/20/17 Chief Complaint: Follow-up on bilateral lower leg ulcers History of Wound: 77-year-old white male who had surgery with Dr. 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 Apparently unbeknown to him he developed some open areas on the left lower leg and neglected them. Now he has very large deep ulcers with necrotic tissue and smell on the left lower leg anterior and posterior leg. Patient has been using his Aquacel silver on it. And not wearing his stockings or compression. There is a lot of edema and redness and cellulitis. Progress of Wound: The right lower leg ulcer is healed. The left anterior and posterior open ulcers still has a lot of yellow slough but improved. Smell is gone and patient has been taking sulfa and metronidazole which were correct picks from cultures they were sensitive to both for he is bacteria and anaerobes. he is tolerating medications and treatments well swelling is much improved also wearing a double layer Tubigrip. His history of coxsackie a virus he still goes in a congestive heart failure he is BNP was over 500 his pre-albumin was 22 his regular albumin his blood was within normal limits shows some slight anemia on labs suggested he take iron. Patient was approved for epiphytic's and received #1 today and the anterior ulcer which he tolerated very well. We will change the dressing to Aquacel to the posterior moistened since most of the slough is gone and is becoming more shallow. - Physical Exam Vital Signs Temp Pulse Resp BP 98.0 F 126 H 18 128/87 H 10/20/17 08:34 10/20/17 08:34 10/20/17 08:34 10/20/17 08:34 General: Oriented x3, Cooperative, Well developed HEENT: Atraumatic, PERRLA Oral: Moist Mucosa Neck: Supple, No JVD Lungs: Clear to auscultation, Normal air movement Cardiovascular: Regular rate, Regular Rhythm Abdomen: Bowel Sounds Present, Soft, Non Tender, No Hepato-splenomegaly Extremities: No clubbing, No edema, - - Left lower leg ulcer anterior and posterior Skin: Ulcer/ Wound Wound Measurements and Assessment - Nurse 1 - General Ulcer Measurement Start: 10/20/17 08:33 Freq: Status: Active Protocol: Activity Type Activity Date Activity User E-Sign Co-Sign Detail Recorded Client Recorded Date Recorded By Document 10/20/17 08:34 [id number] 10/20/17 08:38 TM 10/20/17 08:34 Wound Center Nurse 1 [Ulcer Assessment Protocol: .WD.LOC] #7 R Christensen -Combined with other wound No #6 L Christensen -Combined with other wound No -Current Size (cm) - Length 10.2 -Current Size (cm) - Width 3.2 -Current Size (cm) - Depth 0.2 -Total Square Cm 32.64 -Photo Taken No -Epithelialization None Present -Tunneling No -Undermining/Tunneling No -Circular Undermining No -Classification - Thickness Full Thickness without Exposed Support Structure -Exudate Amt Large (67-100%) -Exudate Type Purulent -Granulation Amt Small (1-33%) -Granulation Quality Red -Slough/Fibrin Yes -Necrosis Amt Large (67-100%) -Necrotic Tissue Type Adherent Slough -Structure Exposed Fascia Fat Layer Exposed -Texture (Cyndy-wound Skin Appearance) Friable Localized Edema Scarring -Moisture (Cyndy-wound Skin Appearance No Abnormality ) -Color (Cyndy-wound Skin Appearance) Erythema Hemosiderin Staining -Temperature (Cyndy-wound Skin No Abnormality Appearance) (Pt Warm) -Tenderness on Palpation (Cyndy-wound No Skin Appearance) -Ulcer Cleansing Rinsed/ Irrigated with Saline -Foul Odor after Cleansing No -Anesthetic Used 5% Lidocaine Gel #5 LLE Post -Combined with other wound No -Current Size (cm) - Length 8.4 -Current Size (cm) - Width 2.4 -Current Size (cm) - Depth 0.2 -Total Square Cm 20.16 -Photo Taken No -Epithelialization None Present -Tunneling No -Undermining/Tunneling No -Circular Undermining No -Classification - Thickness Full Thickness without Exposed Support Structure -Exudate Amt Large (67-100%) -Exudate Type Purulent -Wound Margin Distinct, Outline Attached -Granulation Amt Small (1-33%) -Granulation Quality [place] -Slough/Fibrin Yes -Necrosis Amt Large (67-100%) -Necrotic Tissue Type Adherent Slough -Structure Exposed Fascia Fat Layer Exposed -Texture (Cyndy-wound Skin Appearance) Friable Localized Edema Scarring -Moisture (Cyndy-wound Skin Appearance No Abnormality ) -Color (Cyndy-wound Skin Appearance) Erythema Hemosiderin Staining -Temperature (Cyndy-wound Skin No Abnormality Appearance) (Pt Warm) -Tenderness on Palpation (Cyndy-wound No Skin Appearance) -Ulcer Cleansing Rinsed/ Irrigated with Saline -Foul Odor after Cleansing No -Anesthetic Used 5% Lidocaine Gel [Edema Assessment] -Lower Limb Edema Present Yes -Left Calf (cm) 39.5 -Left Ankle (cm) 25.0 WC - Nurse 2 - General Ulcer CM Notes Start: 10/20/17 08:33 Freq: Status: Active Protocol: Activity Type Activity Date Activity User E-Sign Co-Sign Detail Recorded Client Recorded Date Recorded By Document 10/20/17 09:17 MW [id number] 10/20/17 09:31 MW 10/20/17 09:17 Wound Center Nurse 2 [Procedure/Treatment] #6 L Christensen -Time 09:18 -Correct Patient Yes -Correct Side, Site, Position Yes -Correct Procedure Yes -Procedure Performed Yes -Type of Procedure Debridement -Clinical Debridement Subcutaneous -Post Debridement Size (cm) - Length 9.7 -Post Debridement Size (cm) - Width 3.2 -Post Debridement Size (cm) - Depth 0.3 -Total Square Cm 31.04 -Wound/Ulcer Outcome Not Healed -Ulcer Cleansing Rinsed/ Irrigated with Saline -Foul Odor after Cleansing No -Bioengineered Tissue Yes -Type of bioengineered Tissue EPIFIX -Expiration Date 05/19/22 -Product Lot Number [id number] -Percent Used 100 -Saline Lot Number [id number] -Cetacaine [place] No -Bleeding Controlled with Pressure -Treatment Response Procedure Tolerated Well #5 LLE Post -Time 09:18 -Correct Patient Yes -Correct Side, Site, Position Yes -Correct Procedure Yes -Procedure Performed Yes -Type of Procedure Debridement -Clinical Debridement Subcutaneous -Post Debridement Size (cm) - Length 8.5 -Post Debridement Size (cm) - Width 1.8 -Post Debridement Size (cm) - Depth 0.2 -Total Square Cm 15.30 -Wound/Ulcer Outcome Not Healed -Ulcer Cleansing Rinsed/ Irrigated with Saline -Foul Odor after Cleansing No -Bioengineered Tissue No -Cetacaine [place] No -Bleeding Controlled with Pressure -Treatment Response Procedure Tolerated Well [See Physician Procedure note for Specifics] Pain Scale: 0-10 Numeric [Pain] -Is Patient Pain Free? Yes Musculoskeletal: No Tenderness to Palpation of Joints or Extremities Lymphatic: No Cervical, Supraclavicular, or Inguinal Adenopathy Neurological: Cranial nerves II-XII grossly intact, Neuro grossly intact Psych/Mental Status: Normal Affect, Appropriate, Alert and oriented to time, place, person, mood and affect Debridement Note Post-Debridement Measurements/Treatment WC - Nurse 2 - General Ulcer CM Notes Start: 10/20/17 08:33 Freq: Status: Active Protocol: Activity Type Activity Date Activity User E-Sign Co-Sign Detail Recorded Client Recorded Date Recorded By Document 10/20/17 09:17 MW [id number] 10/20/17 09:31 MW 10/20/17 09:17 Wound Center Nurse 2 #6 L Christensen -Time 09:18 -Correct Patient Yes -Correct Side, Site, Position Yes -Correct Procedure Yes -Procedure Performed Yes -Type of Procedure Debridement -Clinical Debridement Subcutaneous -Post Debridement Size (cm) - Length 9.7 -Post Debridement Size (cm) - Width 3.2 -Post Debridement Size (cm) - Depth 0.3 -Total Square Cm 31.04 -Wound/Ulcer Outcome Not Healed -Ulcer Cleansing Rinsed/ Irrigated with Saline -Foul Odor after Cleansing No -Bioengineered Tissue Yes -Type of bioengineered Tissue EPIFIX -Expiration Date 05/19/22 -Product Lot Number [id number] -Percent Used 100 -Saline Lot Number [id number] -Cetacaine [place] No -Bleeding Controlled with Pressure -Treatment Response Procedure Tolerated Well #5 LLE Post -Time 09:18 -Correct Patient Yes -Correct Side, Site, Position Yes -Correct Procedure Yes -Procedure Performed Yes -Type of Procedure Debridement -Clinical Debridement Subcutaneous -Post Debridement Size (cm) - Length 8.5 -Post Debridement Size (cm) - Width 1.8 -Post Debridement Size (cm) - Depth 0.2 -Total Square Cm 15.30 -Wound/Ulcer Outcome Not Healed -Ulcer Cleansing Rinsed/ Irrigated with Saline -Foul Odor after Cleansing No -Bioengineered Tissue No -Cetacaine [place] No -Bleeding Controlled with Pressure -Treatment Response Procedure Tolerated Well Pain Scale: 0-10 Numeric Is Patient Pain Free? Yes Type of Debridement: Excisional debridement Anesthesia Used: 5% Lidocaine Gel Depth: Down to and including healthy tissue, in the subcutaneous layer, to muscle Percentage of wound debrided: 100 Instrument Used: 5mm curette, #15 blade Tissue Removed: Slough and fibrin Severity: Fat Layer Exposed Amount of bleeding with debridement: Mild Bleeding Controlled with: Compression and gauze Patient tolerated procedure well - Additional Wound Wound debrided: Posterior left lower leg ulcer Type of Debridement: Excisional debridement Anesthesia Used: 5% Lidocaine Gel Depth: Down to and including healthy tissue, in the subcutaneous layer Percentage of wound debrided: 100 Instrument Used: 5mm curette, #15 blade Tissue Removed: Slough and fibrin Severity: Limited To Skin Breakdown Amount of bleeding with debridement: Mild Bleeding Controlled with: Compression and gauze Patient tolerated procedure: Patient tolerated procedure well Assessment/Plan Active Problems Infected open wound (Acute) Nonischemic cardiomyopathy (Chronic) Chronic systolic CHF (congestive heart failure) (Chronic) Chronic atrial fibrillation (Chronic) Bilateral edema of lower extremity (Chronic) Neuropathic pain, leg, bilateral (Chronic) Nonhealing ulcer of left lower leg (Acute) Assessment: bilateral lower leg edema. Cellulitis,. Bilateral lower leg edema. Left lower leg ulcer-. Infection left lower leg ulcer. 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 Atrial fib to onset. Peripheral vascular disease Plan: Wash around bilateral lower leg ulcers. Left lower anterior ulcer do not touch because of the epi flex. Posterior ulcer apply Aquacel silver moistened with Adaptic and moistened gauze wrap and a double layer Tubigrip to bilateral lower legs. Follow-up in 1 week. Nursing notes reviewed
--- NOTE | 2017-10-20 10:59 | PN.PCM_ITS ---
(1) Infected open wound Status: Acute Current Visit: Yes Code(s): T14.8XXA - Other injury of unspecified body region, initial encounter; L08.9 - Local infection of the skin and subcutaneous tissue, unspecified (2) Nonhealing ulcer of left lower leg Status: Acute Current Visit: Yes Code(s): L97.829 - Non-pressure chronic ulcer of other part of left lower leg with unspecified severity (3) Bilateral edema of lower extremity Status: Chronic Current Visit: Yes Code(s): R60.0 - Localized edema (4) Chronic atrial fibrillation Status: Chronic Current Visit: Yes Code(s): I48.2 - Chronic atrial fibrillation (5) Chronic systolic CHF (congestive heart failure) Status: Chronic Current Visit: Yes Code(s): I50.22 - Chronic systolic ( congestive) heart failure (6) Neuropathic pain, leg, bilateral Status: Chronic Current Visit: Yes Code(s): G57.91 - Unspecified mononeuropathy of right lower limb; G57.92 - Unspecified mononeuropathy of left lower limb (7) Nonischemic cardiomyopathy Status: Chronic Current Visit: Yes Code(s): I42.8 - Other cardiomyopathies Type of Wound Date of Service: 10/20/17 Chief Complaint: Follow-up on bilateral lower leg ulcers History of Wound: 77-year-old white male who had surgery with Dr. 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 Apparently unbeknown to him he developed some open areas on the left lower leg and neglected them. Now he has very large deep ulcers with necrotic tissue and smell on the left lower leg anterior and posterior leg. Patient has been using his Aquacel silver on it. And not wearing his stockings or compression. There is a lot of edema and redness and cellulitis. Progress of Wound: The right lower leg ulcer is healed. The left anterior and posterior open ulcers still has a lot of yellow slough but improved. Smell is gone and patient has been taking sulfa and metronidazole which were correct picks from cultures they were sensitive to both for he is bacteria and anaerobes. he is tolerating medications and treatments well swelling is much improved also wearing a double layer Tubigrip. His history of coxsackie a virus he still goes in a congestive heart failure he is BNP was over 500 his pre -albumin was 22 his regular albumin his blood was within normal limits shows some slight anemia on labs suggested he take iron. Patient was approved for epiphytic's and received #1 today and the anterior ulcer which he tolerated very well. We will change the dressing to Aquacel to the posterior moistened since most of the slough is gone and is becoming more shallow. - Physical Exam Vital Signs Temp Pulse Resp BP 98.0 F 126 H 18 128/87 H 10/20/17 08:34 10/20/17 08:34 10/20/17 08:34 10/20/17 08:34 General: Oriented x3, Cooperative, Well developed HEENT: Atraumatic, PERRLA Oral: Moist Mucosa Neck: Supple, No JVD Lungs: Clear to auscultation, Normal air movement Cardiovascular: Regular rate, Regular Rhythm Abdomen: Bowel Sounds Present, Soft, Non Tender, No Hepato-splenomegaly Extremities: No clubbing, No edema, - - Left lower leg ulcer anterior and posterior Skin: Ulcer/ Wound Wound Measurements and Assessment - Nurse 1 - General Ulcer Measurement Start: 10/20/17 08:33 Freq: Status: Active Protocol: Activity Type Activity Date Activity User E-Sign Co-Sign Detail Recorded Client Recorded Date Recorded By Document 10/20/17 08:34 [id number] 10/20/17 08:38 TM 10/20/17 08:34 Wound Center Nurse 1 [Ulcer Assessment Protocol: .WD.LOC] #7 R Christensen -Combined with other wound No #6 L Christensen -Combined with other wound No -Current Size (cm) - Length 10.2 -Current Size (cm) - Width 3.2 -Current Size (cm) - Depth 0.2 -Total Square Cm 32.64 -Photo Taken No -Epithelialization None Present -Tunneling No -Undermining/Tunneling No -Circular Undermining No -Classification - Thickness Full Thickness without Exposed Support Structure -Exudate Amt Large (67-100%) -Exudate Type Purulent -Granulation Amt Small (1-33%) -Granulation Quality Red -Slough/Fibrin Yes -Necrosis Amt Large (67-100%) -Necrotic Tissue Type Adherent Slough -Structure Exposed Fascia Fat Layer Exposed -Texture (Cyndy-wound Skin Appearance) Friable Localized Edema Scarring -Moisture (Cyndy-wound Skin Appearance No Abnormality ) -Color (Cyndy-wound Skin Appearance) Erythema Hemosiderin Staining -Temperature (Cyndy-wound Skin No Abnormality Appearance) (Pt Warm) -Tenderness on Palpation (Cyndy-wound No Skin Appearance) -Ulcer Cleansing Rinsed/ Irrigated with Saline -Foul Odor after Cleansing No -Anesthetic Used 5% Lidocaine Gel #5 LLE Post -Combined with other wound No -Current Size (cm) - Length 8.4 -Current Size (cm) - Width 2.4 -Current Size (cm) - Depth 0.2 -Total Square Cm 20.16 -Photo Taken No -Epithelialization None Present -Tunneling No -Undermining/Tunneling No -Circular Undermining No -Classification - Thickness Full Thickness without Exposed Support Structure -Exudate Amt Large (67-100%) -Exudate Type Purulent -Wound Margin Distinct, Outline Attached -Granulation Amt Small (1-33%) -Granulation Quality [place] -Slough/Fibrin Yes -Necrosis Amt Large (67-100%) -Necrotic Tissue Type Adherent Slough -Structure Exposed Fascia Fat Layer Exposed -Texture (Cyndy-wound Skin Appearance) Friable Localized Edema Scarring -Moisture (Cyndy-wound Skin Appearance No Abnormality ) -Color (Cyndy-wound Skin Appearance) Erythema Hemosiderin Staining -Temperature (Cyndy-wound Skin No Abnormality Appearance) (Pt Warm) -Tenderness on Palpation (Cyndy-wound No Skin Appearance) -Ulcer Cleansing Rinsed/ Irrigated with Saline -Foul Odor after Cleansing No -Anesthetic Used 5% Lidocaine Gel [Edema Assessment] -Lower Limb Edema Present Yes -Left Calf (cm) 39.5 -Left Ankle (cm) 25.0 WC - Nurse 2 - General Ulcer CM Notes Start: 10/20/17 08:33 Freq: Status: Active Protocol: Activity Type Activity Date Activity User E-Sign Co-Sign Detail Recorded Client Recorded Date Recorded By Document 10/20/17 09:17 MW [id number] 10/20/17 09:31 MW 10/20/17 09:17 Wound Center Nurse 2 [Procedure/Treatment] #6 L Christensen -Time 09:18 -Correct Patient Yes -Correct Side, Site, Position Yes -Correct Procedure Yes -Procedure Performed Yes -Type of Procedure Debridement -Clinical Debridement Subcutaneous -Post Debridement Size (cm) - Length 9.7 -Post Debridement Size (cm) - Width 3.2 -Post Debridement Size (cm) - Depth 0.3 -Total Square Cm 31.04 -Wound/Ulcer Outcome Not Healed -Ulcer Cleansing Rinsed/ Irrigated with Saline -Foul Odor after Cleansing No -Bioengineered Tissue Yes -Type of bioengineered Tissue EPIFIX -Expiration Date 05/19/22 -Product Lot Number [id number] -Percent Used 100 -Saline Lot Number [id number] -Cetacaine [place] No -Bleeding Controlled with Pressure -Treatment Response Procedure Tolerated Well #5 LLE Post -Time 09:18 -Correct Patient Yes -Correct Side, Site, Position Yes -Correct Procedure Yes -Procedure Performed Yes -Type of Procedure Debridement -Clinical Debridement Subcutaneous -Post Debridement Size (cm) - Length 8.5 -Post Debridement Size (cm) - Width 1.8 -Post Debridement Size (cm) - Depth 0.2 -Total Square Cm 15.30 -Wound/Ulcer Outcome Not Healed -Ulcer Cleansing Rinsed/ Irrigated with Saline -Foul Odor after Cleansing No -Bioengineered Tissue No -Cetacaine [place] No -Bleeding Controlled with Pressure -Treatment Response Procedure Tolerated Well [See Physician Procedure note for Specifics] Pain Scale: 0-10 Numeric [Pain] -Is Patient Pain Free? Yes Musculoskeletal: No Tenderness to Palpation of Joints or Extremities Lymphatic: No Cervical, Supraclavicular, or Inguinal Adenopathy Neurological: Cranial nerves II-XII grossly intact, Neuro grossly intact Psych/Mental Status: Normal Affect, Appropriate, Alert and oriented to time, place, person, mood and affect Debridement Note Post-Debridement Measurements/Treatment WC - Nurse 2 - General Ulcer CM Notes Start: 10/20/17 08:33 Freq: Status: Active Protocol: Activity Type Activity Date Activity User E-Sign Co-Sign Detail Recorded Client Recorded Date Recorded By Document 10/20/17 09:17 MW [id number] 10/20/17 09:31 MW 10/20/17 09:17 Wound Center Nurse 2 #6 L Christensen -Time 09:18 -Correct Patient Yes -Correct Side, Site, Position Yes -Correct Procedure Yes -Procedure Performed Yes -Type of Procedure Debridement -Clinical Debridement Subcutaneous -Post Debridement Size (cm) - Length 9.7 -Post Debridement Size (cm) - Width 3.2 -Post Debridement Size (cm) - Depth 0.3 -Total Square Cm 31.04 -Wound/Ulcer Outcome Not Healed -Ulcer Cleansing Rinsed/ Irrigated with Saline -Foul Odor after Cleansing No -Bioengineered Tissue Yes -Type of bioengineered Tissue EPIFIX -Expiration Date 05/19/22 -Product Lot Number [id number] -Percent Used 100 -Saline Lot Number [id number] -Cetacaine [place] No -Bleeding Controlled with Pressure -Treatment Response Procedure Tolerated Well #5 LLE Post -Time 09:18 -Correct Patient Yes -Correct Side, Site, Position Yes -Correct Procedure Yes -Procedure Performed Yes -Type of Procedure Debridement -Clinical Debridement Subcutaneous -Post Debridement Size (cm) - Length 8.5 -Post Debridement Size (cm) - Width 1.8 -Post Debridement Size (cm) - Depth 0.2 -Total Square Cm 15.30 -Wound/Ulcer Outcome Not Healed -Ulcer Cleansing Rinsed/ Irrigated with Saline -Foul Odor after Cleansing No -Bioengineered Tissue No -Cetacaine [place] No -Bleeding Controlled with Pressure -Treatment Response Procedure Tolerated Well Pain Scale: 0-10 Numeric Is Patient Pain Free? Yes Type of Debridement: Excisional debridement Anesthesia Used: 5% Lidocaine Gel Depth: Down to and including healthy tissue, in the subcutaneous layer, to muscle Percentage of wound debrided: 100 Instrument Used: 5mm curette, #15 blade Tissue Removed: Slough and fibrin Severity: Fat Layer Exposed Amount of bleeding with debridement: Mild Bleeding Controlled with: Compression and gauze Patient tolerated procedure well - Additional Wound Wound debrided: Posterior left lower leg ulcer Type of Debridement: Excisional debridement Anesthesia Used: 5% Lidocaine Gel Depth: Down to and including healthy tissue, in the subcutaneous layer Percentage of wound debrided: 100 Instrument Used: 5mm curette, #15 blade Tissue Removed: Slough and fibrin Severity: Limited To Skin Breakdown Amount of bleeding with debridement: Mild Bleeding Controlled with: Compression and gauze Patient tolerated procedure: Patient tolerated procedure well Assessment/Plan Active Problems Infected open wound (Acute) Nonischemic cardiomyopathy (Chronic) Chronic systolic CHF (congestive heart failure) (Chronic) Chronic atrial fibrillation (Chronic) Bilateral edema of lower extremity (Chronic) Neuropathic pain, leg, bilateral (Chronic) Nonhealing ulcer of left lower leg (Acute) Assessment: bilateral lower leg edema. Cellulitis,. Bilateral lower leg edema. Left lower leg ulcer-. Infection left lower leg ulcer. 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 Atrial fib to onset. Peripheral vascular disease Plan: Wash around bilateral lower leg ulcers. Left lower anterior ulcer do not touch because of the epi flex. Posterior ulcer apply Aquacel silver moistened with Adaptic and moistened gauze wrap and a double layer Tubigrip to bilateral lower legs. Follow-up in 1 week. Nursing notes reviewed
[2017-10-27 08:15] VITALS: BP 99/57; PULSE 97; RESP 20; TEMP 36.6; BMI 65.4
--- NOTE | 2017-10-27 13:11 | PCM.WC.PN ---
(1) Infected open wound Status: Acute Current Visit: Yes Code(s): T14.8XXA - Other injury of unspecified body region, initial encounter; L08.9 - Local infection of the skin and subcutaneous tissue, unspecified (2) Nonhealing ulcer of left lower leg Status: Acute Current Visit: Yes Code(s): L97.829 - Non-pressure chronic ulcer of other part of left lower leg with unspecified severity (3) Bilateral edema of lower extremity Status: Chronic Current Visit: Yes Code(s): R60.0 - Localized edema (4) Chronic atrial fibrillation Status: Chronic Current Visit: Yes Code(s): I48.2 - Chronic atrial fibrillation (5) Chronic systolic CHF (congestive heart failure) Status: Chronic Current Visit: Yes Code(s): I50.22 - Chronic systolic (congestive) heart failure (6) Neuropathic pain, leg, bilateral Status: Chronic Current Visit: Yes Code(s): G57.91 - Unspecified mononeuropathy of right lower limb; G57.92 - Unspecified mononeuropathy of left lower limb (7) Nonischemic cardiomyopathy Status: Chronic Current Visit: Yes Code(s): I42.8 - Other cardiomyopathies Type of Wound Date of Service: 10/27/17 Chief Complaint: Follow-up on bilateral lower leg ulcers History of Wound: 77-year-old white male who had surgery with Dr. 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 Apparently unbeknown to him he developed some open areas on the left lower leg and neglected them. Now he has very large deep ulcers with necrotic tissue and smell on the left lower leg anterior and posterior leg. Patient has been using his Aquacel silver on it. And not wearing his stockings or compression. There is a lot of edema and redness and cellulitis. Progress of Wound: The left anterior and posterior open ulcers still has a lot of yellow slough but improved. Smell is gone and patient has been taking sulfa and metronidazole which were correct picks from cultures they were sensitive to both for he is bacteria and anaerobes. He is on epi fix #2 and tolerating well anterior ray wound is improving. Swelling is much improved also wearing a double layer Tubigrip. His history of coxsackie a virus he still goes in a congestive heart failure he is BNP was over 500 his pre-albumin was 22 his regular albumin his blood was within normal limits shows some slight anemia on labs suggested he take iron. Patient was approved for epi-fix - Physical Exam Vital Signs Temp Pulse Resp BP 97.8 F 97 20 H 99/57 L 10/27/17 08:15 10/27/17 08:15 10/27/17 08:15 10/27/17 08:15 General: Oriented x3, Cooperative, Well developed HEENT: Atraumatic, PERRLA Oral: Moist Mucosa Neck: Supple, No JVD Lungs: Clear to auscultation, Normal air movement Cardiovascular: Regular rate, Regular Rhythm Abdomen: Bowel Sounds Present, Soft, Non Tender, No Hepato-splenomegaly Extremities: No clubbing, No edema, - - Lower leg anterior posterior ulcer Wound Measurements and Assessment WC - Nurse 1 - General Ulcer Measurement Start: 10/20/17 08:33 Freq: Status: Active Protocol: Activity Type Activity Date Activity User E-Sign Co-Sign Detail Recorded Client Recorded Date Recorded By Document 10/27/17 08:15 DL [id number] 10/27/17 08:29 DL 10/27/17 08:15 Wound Center Nurse 1 [Ulcer Assessment Protocol: WC.WD.LOC] #6 L Ray -Current Size (cm) - Length 9.8 -Current Size (cm) - Width 3 -Current Size (cm) - Depth 0.3 -Total Square Cm 29.4 -Photo Taken Yes -Exudate Amt Medium (34-66%) -Exudate Type Serosanguineous -Wound Margin Distinct, Outline Attached -Granulation Amt Small (1-33%) -Granulation Quality Red -Necrosis Amt Large (67-100%) -Necrotic Tissue Type Adherent Slough -Structure Exposed N/A -Texture (Cyndy-wound Skin Appearance) Scarring -Moisture (Cyndy-wound Skin Appearance No Abnormality ) -Color (Cyndy-wound Skin Appearance) Hemosiderin Staining -Temperature (Cyndy-wound Skin No Abnormality Appearance) (Pt Warm) -Ulcer Cleansing Wound Cleanser -Foul Odor after Cleansing No -Anesthetic Used 4% Lidocaine Solution #5 LLE Post -Current Size (cm) - Length 7.6 -Current Size (cm) - Width 5.4 -Current Size (cm) - Depth 0.3 -Total Square Cm 41.04 -Photo Taken Yes -Exudate Amt Medium (34-66%) -Exudate Type Serosanguineous -Wound Margin Distinct, Outline Attached -Granulation Amt Small (1-33%) -Granulation Quality Red -Necrosis Amt Medium (34-66%) -Necrotic Tissue Type Adherent Slough -Structure Exposed N/A -Texture (Cyndy-wound Skin Appearance) Scarring -Moisture (Cyndy-wound Skin Appearance No Abnormality ) -Color (Cyndy-wound Skin Appearance) Hemosiderin Staining -Temperature (Cyndy-wound Skin No Abnormality Appearance) (Pt Warm) -Ulcer Cleansing Wound Cleanser -Foul Odor after Cleansing No -Anesthetic Used 4% Lidocaine Solution [Edema Assessment] -Right Calf (cm) 36 -Right Ankle (cm) 25 -Left Calf (cm) 40.5 -Left Ankle (cm) 24.5 WC - Nurse 2 - General Ulcer CM Notes Start: 10/20/17 08:33 Freq: Status: Active Protocol: Activity Type Activity Date Activity User E-Sign Co-Sign Detail Recorded Client Recorded Date Recorded By Document 10/27/17 08:48 MW [id number] 10/27/17 09:08 MW 10/27/17 08:48 Wound Center Nurse 2 [Procedure/Treatment] #6 L Ray -Time 08:49 -Correct Patient Yes -Correct Side, Site, Position Yes -Correct Procedure Yes -Procedure Performed Yes -Type of Procedure Debridement -Clinical Debridement Subcutaneous -Post Debridement Size (cm) - Length 9.4 -Post Debridement Size (cm) - Width 2.8 -Post Debridement Size (cm) - Depth 0.3 -Total Square Cm 26.32 -Wound/Ulcer Outcome Not Healed -Ulcer Cleansing Rinsed/ Irrigated with Saline -Foul Odor after Cleansing No -Bioengineered Tissue No -Type of bioengineered Tissue EPIFIX -Expiration Date 05/19/22 -Product Lot Number [id number] -Bleeding Controlled with Pressure -Other SALINE LOT # [id number] -Treatment Response Procedure Tolerated Well #5 LLE Post -Time 08:49 -Correct Patient Yes -Correct Side, Site, Position Yes -Correct Procedure Yes -Procedure Performed Yes -Type of Procedure Debridement -Clinical Debridement Subcutaneous -Post Debridement Size (cm) - Length 8.5 -Post Debridement Size (cm) - Width 1.8 -Post Debridement Size (cm) - Depth 0.2 -Total Square Cm 15.30 -Wound/Ulcer Outcome Not Healed -Ulcer Cleansing Rinsed/ Irrigated with Saline -Foul Odor after Cleansing No -Type of bioengineered Tissue EPIFIX -Bleeding Controlled with Pressure -Treatment Response Procedure Tolerated Well [See Physician Procedure note for Specifics] Pain Scale: 0-10 Numeric [Pain] -Is Patient Pain Free? Yes Musculoskeletal: No Tenderness to Palpation of Joints or Extremities Lymphatic: No Cervical, Supraclavicular, or Inguinal Adenopathy Neurological: Cranial nerves II-XII grossly intact, Neuro grossly intact Psych/Mental Status: Normal Affect, Appropriate Debridement Note Post-Debridement Measurements/Treatment WC - Nurse 2 - General Ulcer CM Notes Start: 10/20/17 08:33 Freq: Status: Active Protocol: Activity Type Activity Date Activity User E-Sign Co-Sign Detail Recorded Client Recorded Date Recorded By Document 10/20/17 09:17 MW [id number] 10/20/17 09:31 MW Document 10/27/17 08:48 MW [id number] 10/27/17 09:08 MW 10/20/17 10/27/17 09:17 08:48 Wound Center Nurse 2 #6 L Ray -Time 09:18 08:49 -Correct Patient Yes Yes -Correct Side, Site, Position Yes Yes -Correct Procedure Yes Yes -Procedure Performed Yes Yes -Type of Procedure Debridement Debridement -Clinical Debridement Subcutaneous Subcutaneous -Post Debridement Size (cm) - Length 9.7 9.4 -Post Debridement Size (cm) - Width 3.2 2.8 -Post Debridement Size (cm) - Depth 0.3 0.3 -Total Square Cm 31.04 26.32 -Wound/Ulcer Outcome Not Healed Not Healed -Ulcer Cleansing Rinsed/ Rinsed/ Irrigated with Irrigated with Saline Saline -Foul Odor after Cleansing No No -Bioengineered Tissue Yes No -Type of bioengineered Tissue EPIFIX EPIFIX -Expiration Date 05/19/22 05/19/22 -Product Lot Number [id number] -Percent Used 100 -Saline Lot Number [id number] -Cetacaine Pierson No -Bleeding Controlled with Pressure Pressure -Other SALINE LOT # [id number] -Treatment Response Procedure Procedure Tolerated Well Tolerated Well #5 LLE Post -Time 09:18 08:49 -Correct Patient Yes Yes -Correct Side, Site, Position Yes Yes -Correct Procedure Yes Yes -Procedure Performed Yes Yes -Type of Procedure Debridement Debridement -Clinical Debridement Subcutaneous Subcutaneous -Post Debridement Size (cm) - Length 8.5 8.5 -Post Debridement Size (cm) - Width 1.8 1.8 -Post Debridement Size (cm) - Depth 0.2 0.2 -Total Square Cm 15.30 15.30 -Wound/Ulcer Outcome Not Healed Not Healed -Ulcer Cleansing Rinsed/ Rinsed/ Irrigated with Irrigated with Saline Saline -Foul Odor after Cleansing No No -Bioengineered Tissue No -Type of bioengineered Tissue EPIFIX -Cetacaine Pierson No -Bleeding Controlled with Pressure Pressure -Treatment Response Procedure Procedure Tolerated Well Tolerated Well Pain Scale: 0-10 Numeric Is Patient Pain Free? Yes Yes Wound debrided: Anterior lower ray ulcer Type of Debridement: Excisional debridement Anesthesia Used: 5% Lidocaine Gel Depth: Down to and including healthy tissue, in the subcutaneous layer Instrument Used: 5mm curette, #15 blade, Forceps, - Tissue Removed: Slough Severity: Limited To Skin Breakdown Amount of bleeding with debridement: Moderate Bleeding Controlled with: Compression and gauze Patient tolerated procedure well - Additional Wound Wound debrided: Cheerier left lower leg ulcer Type of Debridement: Excisional debridement Anesthesia Used: 5% Lidocaine Gel Depth: Down to and including healthy tissue, in the subcutaneous layer Percentage of wound debrided: 100 Instrument Used: 5mm curette Tissue Removed: slough Severity: Fat Layer Exposed Amount of bleeding with debridement: Mild Bleeding Controlled with: Compression and gauze Patient tolerated procedure: Patient tolerated procedure well Assessment/Plan Active Problems Infected open wound (Acute) Nonischemic cardiomyopathy (Chronic) Chronic systolic CHF (congestive heart failure) (Chronic) Chronic atrial fibrillation (Chronic) Bilateral edema of lower extremity (Chronic) Neuropathic pain, leg, bilateral (Chronic) Nonhealing ulcer of left lower leg (Acute) Assessment: bilateral lower leg edema. Cellulitis,. Bilateral lower leg edema. Left lower leg ulcer-. Infection left lower leg ulcer. 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 Atrial fib to onset. Peripheral vascular disease Plan: Wash around bilateral lower leg ulcers. Left lower anterior ulcer do not touch because of the epi flix #2. Posterior ulcer apply Aquacel silver moistened with Adaptic and moistened gauze wrap and a double layer Tubigrip to bilateral lower legs. Follow-up in 1 week. Nursing notes reviewed
--- NOTE | 2017-10-27 13:16 | PN.PCM_ITS ---
(1) Infected open wound Status: Acute Current Visit: Yes Code(s): T14.8XXA - Other injury of unspecified body region, initial encounter; L08.9 - Local infection of the skin and subcutaneous tissue, unspecified (2) Nonhealing ulcer of left lower leg Status: Acute Current Visit: Yes Code(s): L97.829 - Non-pressure chronic ulcer of other part of left lower leg with unspecified severity (3) Bilateral edema of lower extremity Status: Chronic Current Visit: Yes Code(s): R60.0 - Localized edema (4) Chronic atrial fibrillation Status: Chronic Current Visit: Yes Code(s): I48.2 - Chronic atrial fibrillation (5) Chronic systolic CHF (congestive heart failure) Status: Chronic Current Visit: Yes Code(s): I50.22 - Chronic systolic ( congestive) heart failure (6) Neuropathic pain, leg, bilateral Status: Chronic Current Visit: Yes Code(s): G57.91 - Unspecified mononeuropathy of right lower limb; G57.92 - Unspecified mononeuropathy of left lower limb (7) Nonischemic cardiomyopathy Status: Chronic Current Visit: Yes Code(s): I42.8 - Other cardiomyopathies Type of Wound Date of Service: 10/27/17 Chief Complaint: Follow-up on bilateral lower leg ulcers History of Wound: 77-year-old white male who had surgery with Dr. 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 Apparently unbeknown to him he developed some open areas on the left lower leg and neglected them. Now he has very large deep ulcers with necrotic tissue and smell on the left lower leg anterior and posterior leg. Patient has been using his Aquacel silver on it. And not wearing his stockings or compression. There is a lot of edema and redness and cellulitis. Progress of Wound: The left anterior and posterior open ulcers still has a lot of yellow slough but improved. Smell is gone and patient has been taking sulfa and metronidazole which were correct picks from cultures they were sensitive to both for he is bacteria and anaerobes. He is on epi fix #2 and tolerating well anterior ray wound is improving. Swelling is much improved also wearing a double layer Tubigrip. His history of coxsackie a virus he still goes in a congestive heart failure he is BNP was over 500 his pre-albumin was 22 his regular albumin his blood was within normal limits shows some slight anemia on labs suggested he take iron. Patient was approved for epi-fix - Physical Exam Vital Signs Temp Pulse Resp BP 97.8 F 97 20 H 99/57 L 10/27/17 08:15 10/27/17 08:15 10/27/17 08:15 10/27/17 08:15 General: Oriented x3, Cooperative, Well developed HEENT: Atraumatic, PERRLA Oral: Moist Mucosa Neck: Supple, No JVD Lungs: Clear to auscultation, Normal air movement Cardiovascular: Regular rate, Regular Rhythm Abdomen: Bowel Sounds Present, Soft, Non Tender, No Hepato-splenomegaly Extremities: No clubbing, No edema, - - Lower leg anterior posterior ulcer Wound Measurements and Assessment WC - Nurse 1 - General Ulcer Measurement Start: 10/20/17 08:33 Freq: Status: Active Protocol: Activity Type Activity Date Activity User E-Sign Co-Sign Detail Recorded Client Recorded Date Recorded By Document 10/27/17 08:15 DL [id number] 10/27/17 08:29 DL 10/27/17 08:15 Wound Center Nurse 1 [Ulcer Assessment Protocol: WC.WD.LOC] #6 L Ray -Current Size (cm) - Length 9.8 -Current Size (cm) - Width 3 -Current Size (cm) - Depth 0.3 -Total Square Cm 29.4 -Photo Taken Yes -Exudate Amt Medium (34-66%) -Exudate Type Serosanguineous -Wound Margin Distinct, Outline Attached -Granulation Amt Small (1-33%) -Granulation Quality Red -Necrosis Amt Large (67-100%) -Necrotic Tissue Type Adherent Slough -Structure Exposed N/A -Texture (Cyndy-wound Skin Appearance) Scarring -Moisture (Cyndy-wound Skin Appearance No Abnormality ) -Color (Cyndy-wound Skin Appearance) Hemosiderin Staining -Temperature (Cyndy-wound Skin No Abnormality Appearance) (Pt Warm) -Ulcer Cleansing Wound Cleanser -Foul Odor after Cleansing No -Anesthetic Used 4% Lidocaine Solution #5 LLE Post -Current Size (cm) - Length 7.6 -Current Size (cm) - Width 5.4 -Current Size (cm) - Depth 0.3 -Total Square Cm 41.04 -Photo Taken Yes -Exudate Amt Medium (34-66%) -Exudate Type Serosanguineous -Wound Margin Distinct, Outline Attached -Granulation Amt Small (1-33%) -Granulation Quality Red -Necrosis Amt Medium (34-66%) -Necrotic Tissue Type Adherent Slough -Structure Exposed N/A -Texture (Cyndy-wound Skin Appearance) Scarring -Moisture (Cyndy-wound Skin Appearance No Abnormality ) -Color (Cyndy-wound Skin Appearance) Hemosiderin Staining -Temperature (Cyndy-wound Skin No Abnormality Appearance) (Pt Warm) -Ulcer Cleansing Wound Cleanser -Foul Odor after Cleansing No -Anesthetic Used 4% Lidocaine Solution [Edema Assessment] -Right Calf (cm) 36 -Right Ankle (cm) 25 -Left Calf (cm) 40.5 -Left Ankle (cm) 24.5 WC - Nurse 2 - General Ulcer CM Notes Start: 10/20/17 08:33 Freq: Status: Active Protocol: Activity Type Activity Date Activity User E-Sign Co-Sign Detail Recorded Client Recorded Date Recorded By Document 10/27/17 08:48 MW [id number] 10/27/17 09:08 MW 10/27/17 08:48 Wound Center Nurse 2 [Procedure/Treatment] #6 L Ray -Time 08:49 -Correct Patient Yes -Correct Side, Site, Position Yes -Correct Procedure Yes -Procedure Performed Yes -Type of Procedure Debridement -Clinical Debridement Subcutaneous -Post Debridement Size (cm) - Length 9.4 -Post Debridement Size (cm) - Width 2.8 -Post Debridement Size (cm) - Depth 0.3 -Total Square Cm 26.32 -Wound/Ulcer Outcome Not Healed -Ulcer Cleansing Rinsed/ Irrigated with Saline -Foul Odor after Cleansing No -Bioengineered Tissue No -Type of bioengineered Tissue EPIFIX -Expiration Date 05/19/22 -Product Lot Number [id number] -Bleeding Controlled with Pressure -Other SALINE LOT # [id number] -Treatment Response Procedure Tolerated Well #5 LLE Post -Time 08:49 -Correct Patient Yes -Correct Side, Site, Position Yes -Correct Procedure Yes -Procedure Performed Yes -Type of Procedure Debridement -Clinical Debridement Subcutaneous -Post Debridement Size (cm) - Length 8.5 -Post Debridement Size (cm) - Width 1.8 -Post Debridement Size (cm) - Depth 0.2 -Total Square Cm 15.30 -Wound/Ulcer Outcome Not Healed -Ulcer Cleansing Rinsed/ Irrigated with Saline -Foul Odor after Cleansing No -Type of bioengineered Tissue EPIFIX -Bleeding Controlled with Pressure -Treatment Response Procedure Tolerated Well [See Physician Procedure note for Specifics] Pain Scale: 0-10 Numeric [Pain] -Is Patient Pain Free? Yes Musculoskeletal: No Tenderness to Palpation of Joints or Extremities Lymphatic: No Cervical, Supraclavicular, or Inguinal Adenopathy Neurological: Cranial nerves II-XII grossly intact, Neuro grossly intact Psych/Mental Status: Normal Affect, Appropriate Debridement Note Post-Debridement Measurements/Treatment WC - Nurse 2 - General Ulcer CM Notes Start: 10/20/17 08:33 Freq: Status: Active Protocol: Activity Type Activity Date Activity User E-Sign Co-Sign Detail Recorded Client Recorded Date Recorded By Document 10/20/17 09:17 MW [id number] 10/20/17 09:31 MW Document 10/27/17 08:48 MW [id number] 10/27/17 09:08 MW 10/20/17 10/27/17 09:17 08:48 Wound Center Nurse 2 #6 L Ray -Time 09:18 08:49 -Correct Patient Yes Yes -Correct Side, Site, Position Yes Yes -Correct Procedure Yes Yes -Procedure Performed Yes Yes -Type of Procedure Debridement Debridement -Clinical Debridement Subcutaneous Subcutaneous -Post Debridement Size (cm) - Length 9.7 9.4 -Post Debridement Size (cm) - Width 3.2 2.8 -Post Debridement Size (cm) - Depth 0.3 0.3 -Total Square Cm 31.04 26.32 -Wound/Ulcer Outcome Not Healed Not Healed -Ulcer Cleansing Rinsed/ Rinsed/ Irrigated with Irrigated with Saline Saline -Foul Odor after Cleansing No No -Bioengineered Tissue Yes No -Type of bioengineered Tissue EPIFIX EPIFIX -Expiration Date 05/19/22 05/19/22 -Product Lot Number [id number] -Percent Used 100 -Saline Lot Number [id number] -Cetacaine Leander No -Bleeding Controlled with Pressure Pressure -Other SALINE LOT # [id number] -Treatment Response Procedure Procedure Tolerated Well Tolerated Well #5 LLE Post -Time 09:18 08:49 -Correct Patient Yes Yes -Correct Side, Site, Position Yes Yes -Correct Procedure Yes Yes -Procedure Performed Yes Yes -Type of Procedure Debridement Debridement -Clinical Debridement Subcutaneous Subcutaneous -Post Debridement Size (cm) - Length 8.5 8.5 -Post Debridement Size (cm) - Width 1.8 1.8 -Post Debridement Size (cm) - Depth 0.2 0.2 -Total Square Cm 15.30 15.30 -Wound/Ulcer Outcome Not Healed Not Healed -Ulcer Cleansing Rinsed/ Rinsed/ Irrigated with Irrigated with Saline Saline -Foul Odor after Cleansing No No -Bioengineered Tissue No -Type of bioengineered Tissue EPIFIX -Cetacaine Leander No -Bleeding Controlled with Pressure Pressure -Treatment Response Procedure Procedure Tolerated Well Tolerated Well Pain Scale: 0-10 Numeric Is Patient Pain Free? Yes Yes Wound debrided: Anterior lower ray ulcer Type of Debridement: Excisional debridement Anesthesia Used: 5% Lidocaine Gel Depth: Down to and including healthy tissue, in the subcutaneous layer Instrument Used: 5mm curette, #15 blade, Forceps, - Tissue Removed: Slough Severity: Limited To Skin Breakdown Amount of bleeding with debridement: Moderate Bleeding Controlled with: Compression and gauze Patient tolerated procedure well - Additional Wound Wound debrided: Cheerier left lower leg ulcer Type of Debridement: Excisional debridement Anesthesia Used: 5% Lidocaine Gel Depth: Down to and including healthy tissue, in the subcutaneous layer Percentage of wound debrided: 100 Instrument Used: 5mm curette Tissue Removed: slough Severity: Fat Layer Exposed Amount of bleeding with debridement: Mild Bleeding Controlled with: Compression and gauze Patient tolerated procedure: Patient tolerated procedure well Assessment/Plan Active Problems Infected open wound (Acute) Nonischemic cardiomyopathy (Chronic) Chronic systolic CHF (congestive heart failure) (Chronic) Chronic atrial fibrillation (Chronic) Bilateral edema of lower extremity (Chronic) Neuropathic pain, leg, bilateral (Chronic) Nonhealing ulcer of left lower leg (Acute) Assessment: bilateral lower leg edema. Cellulitis,. Bilateral lower leg edema. Left lower leg ulcer-. Infection left lower leg ulcer. 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 Atrial fib to onset. Peripheral vascular disease Plan: Wash around bilateral lower leg ulcers. Left lower anterior ulcer do not touch because of the epi flix #2. Posterior ulcer apply Aquacel silver moistened with Adaptic and moistened gauze wrap and a double layer Tubigrip to bilateral lower legs. Follow-up in 1 week. Nursing notes reviewed
[2017-11-03 08:21] VITALS: BMI 65.4
--- NOTE | 2017-11-03 09:37 | PCM.WC.PN ---
(1) Infected open wound Status: Acute Current Visit: Yes Code(s): T14.8XXA - Other injury of unspecified body region, initial encounter; L08.9 - Local infection of the skin and subcutaneous tissue, unspecified (2) Nonhealing ulcer of left lower leg Status: Acute Current Visit: Yes Code(s): L97.829 - Non-pressure chronic ulcer of other part of left lower leg with unspecified severity (3) Bilateral edema of lower extremity Status: Chronic Current Visit: Yes Code(s): R60.0 - Localized edema (4) Chronic atrial fibrillation Status: Chronic Current Visit: Yes Code(s): I48.2 - Chronic atrial fibrillation (5) Chronic systolic CHF (congestive heart failure) Status: Chronic Current Visit: Yes Code(s): I50.22 - Chronic systolic (congestive) heart failure (6) Neuropathic pain, leg, bilateral Status: Chronic Current Visit: Yes Code(s): G57.91 - Unspecified mononeuropathy of right lower limb; G57.92 - Unspecified mononeuropathy of left lower limb (7) Nonischemic cardiomyopathy Status: Chronic Current Visit: Yes Code(s): I42.8 - Other cardiomyopathies Type of Wound Date of Service: 11/03/17 Chief Complaint: Follow-up on bilateral lower leg ulcers History of Wound: 77-year-old white male who had surgery with Dr. 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 Apparently unbeknown to him he developed some open areas on the left lower leg and neglected them. Now he has very large deep ulcers with necrotic tissue and smell on the left lower leg anterior and posterior leg. Patient has been using his Aquacel silver on it. And not wearing his stockings or compression. There is a lot of edema and redness and cellulitis. Progress of Wound: The left anterior and posterior open ulcers still has a lot of yellow slough but improved. Smell is gone and patient has been taking sulfa and metronidazole which were correct picks from cultures they were sensitive to both for he is bacteria and anaerobes. He is on epi fix #3 and tolerating well anterior ray wound is improving. Swelling is much improved also wearing a double layer Tubigrip. His history of coxsackie a virus he still goes in a congestive heart failure he is BNP was over 500 his pre-albumin was 22 his regular albumin his blood was within normal limits shows some slight anemia on labs suggested he take iron. - Physical Exam Vital Signs Temp Pulse Resp BP 97.8 F 97 20 H 99/57 L 10/27/17 08:15 10/27/17 08:15 10/27/17 08:15 10/27/17 08:15 General: Oriented x3, Cooperative, Well developed HEENT: Atraumatic, PERRLA Oral: Moist Mucosa Neck: Supple, No JVD Lungs: Clear to auscultation, Normal air movement Cardiovascular: Regular rate, Regular Rhythm Abdomen: Bowel Sounds Present, Soft, Non Tender, No Hepato-splenomegaly Extremities: No clubbing, No edema, - - Left lower leg anterior posterior ulcers Wound Measurements and Assessment WC - Nurse 1 - General Ulcer Measurement Start: 10/20/17 08:33 Freq: Status: Active Protocol: Activity Type Activity Date Activity User E-Sign Co-Sign Detail Recorded Client Recorded Date Recorded By Document 11/03/17 08:21 DV [id number] 11/03/17 08:34 DV 11/03/17 08:21 Wound Center Nurse 1 [Ulcer Assessment Protocol: WC.WD.LOC] #6 L Ray -Combined with other wound No -Current Size (cm) - Length 9.5 -Current Size (cm) - Width 2.7 -Current Size (cm) - Depth 0.3 -Total Square Cm 25.65 -Photo Taken No -Epithelialization None Present -Tunneling No -Undermining/Tunneling No -Circular Undermining No -Classification - Thickness Full Thickness without Exposed Support Structure -Exudate Amt Medium (34-66%) -Exudate Type Serosanguineous -Wound Margin Distinct, Outline Attached -Granulation Amt Small (1-33%) -Granulation Quality Pale -Slough/Fibrin Yes -Necrosis Amt Large (67-100%) -Necrotic Tissue Type Adherent Slough -Structure Exposed None/Limited to Skin Breakdown -Texture (Cyndy-wound Skin Appearance) Assessed Localized Edema Scarring -Moisture (Cyndy-wound Skin Appearance Assessed ) Weeping -Color (Cyndy-wound Skin Appearance) Assessed Erythema Hemosiderin Staining -Temperature (Cyndy-wound Skin No Abnormality Appearance) (Pt Warm) -Ulcer Cleansing Wound Cleanser -Foul Odor after Cleansing No -Anesthetic Used 4% Lidocaine Solution #5 LLE Post -Combined with other wound No -Current Size (cm) - Length 8.4 -Current Size (cm) - Width 1.5 -Current Size (cm) - Depth 0.2 -Total Square Cm 12.60 -Photo Taken No -Epithelialization None Present -Tunneling No -Undermining/Tunneling No -Circular Undermining No -Classification - Thickness Full Thickness without Exposed Support Structure -Exudate Amt Medium (34-66%) -Exudate Type Serosanguineous -Wound Margin Distinct, Outline Attached -Granulation Amt Small (1-33%) -Granulation Quality [place] -Slough/Fibrin Yes -Necrosis Amt Large (67-100%) -Necrotic Tissue Type Adherent Slough -Structure Exposed None/Limited to Skin Breakdown -Texture (Cyndy-wound Skin Appearance) Assessed Localized Edema Scarring -Moisture (Cyndy-wound Skin Appearance Assessed ) Weeping -Color (Cyndy-wound Skin Appearance) Assessed Erythema Hemosiderin Staining -Temperature (Cyndy-wound Skin No Abnormality Appearance) (Pt Warm) -Tenderness on Palpation (Cyndy-wound Yes Skin Appearance) -Ulcer Cleansing Wound Cleanser -Foul Odor after Cleansing No -Anesthetic Used 4% Lidocaine Solution [Edema Assessment] -Lower Limb Edema Present Yes -Right Calf (cm) 42.1 -Right Ankle (cm) 25.8 -Left Calf (cm) 44.0 -Point of measurement (cm from the 26.5 medial instep) WC - Nurse 2 - General Ulcer CM Notes Start: 10/20/17 08:33 Freq: Status: Active Protocol: Activity Type Activity Date Activity User E-Sign Co-Sign Detail Recorded Client Recorded Date Recorded By Document 11/03/17 08:50 MW [id number] 11/03/17 09:06 MW 11/03/17 08:50 Wound Center Nurse 2 [Procedure/Treatment] #6 L Ray -Time 08:51 -Correct Patient Yes -Correct Side, Site, Position Yes -Correct Procedure Yes -Procedure Performed Yes -Type of Procedure Debridement -Clinical Debridement Subcutaneous -Post Debridement Size (cm) - Length 9.5 -Post Debridement Size (cm) - Width 3.0 -Post Debridement Size (cm) - Depth 0.3 -Total Square Cm 28.50 -Wound/Ulcer Outcome Not Healed -Ulcer Cleansing Rinsed/ Irrigated with Saline -Foul Odor after Cleansing No -Bioengineered Tissue Yes -Type of bioengineered Tissue EPIFIX -Expiration Date 08/18/22 -Product Lot Number [id number] -Percent Used 100 -Saline Lot Number [id number] -Bleeding Controlled with Pressure -Treatment Response Procedure Tolerated Well #5 LLE Post -Time 08:54 -Correct Patient Yes -Correct Side, Site, Position Yes -Correct Procedure Yes -Procedure Performed Yes -Type of Procedure Debridement -Clinical Debridement Subcutaneous -Post Debridement Size (cm) - Length 8.5 -Post Debridement Size (cm) - Width 1.5 -Post Debridement Size (cm) - Depth 0.2 -Total Square Cm 12.75 -Wound/Ulcer Outcome Not Healed -Ulcer Cleansing Rinsed/ Irrigated with Saline -Foul Odor after Cleansing No -Bleeding Controlled with Pressure -Treatment Response Procedure Tolerated Well [See Physician Procedure note for Specifics] Pain Scale: 0-10 Numeric [Pain] -Is Patient Pain Free? Yes Musculoskeletal: No Tenderness to Palpation of Joints or Extremities Lymphatic: No Cervical, Supraclavicular, or Inguinal Adenopathy Neurological: Cranial nerves II-XII grossly intact, Neuro grossly intact Psych/Mental Status: Normal Affect, Appropriate Debridement Note Post-Debridement Measurements/Treatment WC - Nurse 2 - General Ulcer CM Notes Start: 10/20/17 08:33 Freq: Status: Active Protocol: Activity Type Activity Date Activity User E-Sign Co-Sign Detail Recorded Client Recorded Date Recorded By Document 10/20/17 09:17 MW [id number] 10/20/17 09:31 MW Document 10/27/17 08:48 MW [id number] 10/27/17 09:08 MW Document 11/03/17 08:50 MW [id number] 11/03/17 09:06 MW 10/20/17 10/27/17 11/03/17 09:17 08:48 08:50 Wound Center Nurse 2 #6 L Ray -Time 09:18 08:49 08:51 -Correct Patient Yes Yes Yes -Correct Side, Site, Position Yes Yes Yes -Correct Procedure Yes Yes Yes -Procedure Performed Yes Yes Yes -Type of Procedure Debridement Debridement Debridement -Clinical Debridement Subcutaneous Subcutaneous Subcutaneous -Post Debridement Size (cm) - Length 9.7 9.4 9.5 -Post Debridement Size (cm) - Width 3.2 2.8 3.0 -Post Debridement Size (cm) - Depth 0.3 0.3 0.3 -Total Square Cm 31.04 26.32 28.50 -Wound/Ulcer Outcome Not Healed Not Healed Not Healed -Ulcer Cleansing Rinsed/ Rinsed/ Rinsed/ Irrigated with Irrigated with Irrigated with Saline Saline Saline -Foul Odor after Cleansing No No No -Bioengineered Tissue Yes No Yes -Type of bioengineered Tissue EPIFIX EPIFIX EPIFIX -Expiration Date 05/19/22 05/19/22 08/18/22 -Product Lot Number [id number] -Percent Used 100 100 -Saline Lot Number [id number] -Cetacaine [place] No -Bleeding Controlled with Pressure Pressure Pressure -Other SALINE LOT # [id number] -Treatment Response Procedure Procedure Procedure Tolerated Well Tolerated Well Tolerated Well #5 LLE Post -Time 09:18 08:49 08:54 -Correct Patient Yes Yes Yes -Correct Side, Site, Position Yes Yes Yes -Correct Procedure Yes Yes Yes -Procedure Performed Yes Yes Yes -Type of Procedure Debridement Debridement Debridement -Clinical Debridement Subcutaneous Subcutaneous Subcutaneous -Post Debridement Size (cm) - Length 8.5 8.5 8.5 -Post Debridement Size (cm) - Width 1.8 1.8 1.5 -Post Debridement Size (cm) - Depth 0.2 0.2 0.2 -Total Square Cm 15.30 15.30 12.75 -Wound/Ulcer Outcome Not Healed Not Healed Not Healed -Ulcer Cleansing Rinsed/ Rinsed/ Rinsed/ Irrigated with Irrigated with Irrigated with Saline Saline Saline -Foul Odor after Cleansing No No No -Bioengineered Tissue No -Type of bioengineered Tissue EPIFIX -Cetacaine [place] No -Bleeding Controlled with Pressure Pressure Pressure -Treatment Response Procedure Procedure Procedure Tolerated Well Tolerated Well Tolerated Well Pain Scale: 0-10 Numeric Is Patient Pain Free? Yes Yes Yes Wound debrided: Left anterior ray Type of Debridement: Excisional debridement Anesthesia Used: 5% Lidocaine Gel Depth: Down to and including healthy tissue, in the subcutaneous layer Percentage of wound debrided: 100 Instrument Used: 5mm curette Tissue Removed: Slough and fibrin Severity: Limited To Skin Breakdown Amount of bleeding with debridement: Mild Bleeding Controlled with: Compression and gauze Patient tolerated procedure well - Additional Wound Wound debrided: Left lower posterior ulcer Type of Debridement: Excisional debridement Anesthesia Used: 5% Lidocaine Gel Depth: Down to and including healthy tissue, in the subcutaneous layer Percentage of wound debrided: 100 Instrument Used: 5mm curette Tissue Removed: Slough and fibrin Severity: Limited To Skin Breakdown Amount of bleeding with debridement: Mild Bleeding Controlled with: Pressure, Compression and gauze Patient tolerated procedure: Patient tolerated procedure well Assessment/Plan Recultured back of leg ulcer Active Problems Infected open wound (Acute) Nonischemic cardiomyopathy (Chronic) Chronic systolic CHF (congestive heart failure) (Chronic) Chronic atrial fibrillation (Chronic) Bilateral edema of lower extremity (Chronic) Neuropathic pain, leg, bilateral (Chronic) Nonhealing ulcer of left lower leg (Acute) Assessment: bilateral lower leg edema. Cellulitis,. Bilateral lower leg edema. Left lower leg ulcer-. Infection left lower leg ulcer. 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 Atrial fib to onset. Peripheral vascular disease Plan: Wash around bilateral lower leg ulcers. Left lower anterior ulcer do not touch because of the epi flix #3. Posterior ulcer apply Aquacel silver moistened with Adaptic and moistened gauze wrap and a double layer Tubigrip to bilateral lower legs. Follow-up in 1 week. Nursing notes reviewed
--- NOTE | 2017-11-03 09:41 | PN.PCM_ITS ---
(1) Infected open wound Status: Acute Current Visit: Yes Code(s): T14.8XXA - Other injury of unspecified body region, initial encounter; L08.9 - Local infection of the skin and subcutaneous tissue, unspecified (2) Nonhealing ulcer of left lower leg Status: Acute Current Visit: Yes Code(s): L97.829 - Non-pressure chronic ulcer of other part of left lower leg with unspecified severity (3) Bilateral edema of lower extremity Status: Chronic Current Visit: Yes Code(s): R60.0 - Localized edema (4) Chronic atrial fibrillation Status: Chronic Current Visit: Yes Code(s): I48.2 - Chronic atrial fibrillation (5) Chronic systolic CHF (congestive heart failure) Status: Chronic Current Visit: Yes Code(s): I50.22 - Chronic systolic ( congestive) heart failure (6) Neuropathic pain, leg, bilateral Status: Chronic Current Visit: Yes Code(s): G57.91 - Unspecified mononeuropathy of right lower limb; G57.92 - Unspecified mononeuropathy of left lower limb (7) Nonischemic cardiomyopathy Status: Chronic Current Visit: Yes Code(s): I42.8 - Other cardiomyopathies Type of Wound Date of Service: 11/03/17 Chief Complaint: Follow-up on bilateral lower leg ulcers History of Wound: 77-year-old white male who had surgery with Dr. 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 Apparently unbeknown to him he developed some open areas on the left lower leg and neglected them. Now he has very large deep ulcers with necrotic tissue and smell on the left lower leg anterior and posterior leg. Patient has been using his Aquacel silver on it. And not wearing his stockings or compression. There is a lot of edema and redness and cellulitis. Progress of Wound: The left anterior and posterior open ulcers still has a lot of yellow slough but improved. Smell is gone and patient has been taking sulfa and metronidazole which were correct picks from cultures they were sensitive to both for he is bacteria and anaerobes. He is on epi fix #3 and tolerating well anterior ray wound is improving. Swelling is much improved also wearing a double layer Tubigrip. His history of coxsackie a virus he still goes in a congestive heart failure he is BNP was over 500 his pre-albumin was 22 his regular albumin his blood was within normal limits shows some slight anemia on labs suggested he take iron. - Physical Exam Vital Signs Temp Pulse Resp BP 97.8 F 97 20 H 99/57 L 10/27/17 08:15 10/27/17 08:15 10/27/17 08:15 10/27/17 08:15 General: Oriented x3, Cooperative, Well developed HEENT: Atraumatic, PERRLA Oral: Moist Mucosa Neck: Supple, No JVD Lungs: Clear to auscultation, Normal air movement Cardiovascular: Regular rate, Regular Rhythm Abdomen: Bowel Sounds Present, Soft, Non Tender, No Hepato-splenomegaly Extremities: No clubbing, No edema, - - Left lower leg anterior posterior ulcers Wound Measurements and Assessment WC - Nurse 1 - General Ulcer Measurement Start: 10/20/17 08:33 Freq: Status: Active Protocol: Activity Type Activity Date Activity User E-Sign Co-Sign Detail Recorded Client Recorded Date Recorded By Document 11/03/17 08:21 DV [id number] 11/03/17 08:34 DV 11/03/17 08:21 Wound Center Nurse 1 [Ulcer Assessment Protocol: WC.WD.LOC] #6 L Ray -Combined with other wound No -Current Size (cm) - Length 9.5 -Current Size (cm) - Width 2.7 -Current Size (cm) - Depth 0.3 -Total Square Cm 25.65 -Photo Taken No -Epithelialization None Present -Tunneling No -Undermining/Tunneling No -Circular Undermining No -Classification - Thickness Full Thickness without Exposed Support Structure -Exudate Amt Medium (34-66%) -Exudate Type Serosanguineous -Wound Margin Distinct, Outline Attached -Granulation Amt Small (1-33%) -Granulation Quality Pale -Slough/Fibrin Yes -Necrosis Amt Large (67-100%) -Necrotic Tissue Type Adherent Slough -Structure Exposed None/Limited to Skin Breakdown -Texture (Cyndy-wound Skin Appearance) Assessed Localized Edema Scarring -Moisture (Cyndy-wound Skin Appearance Assessed ) Weeping -Color (Cyndy-wound Skin Appearance) Assessed Erythema Hemosiderin Staining -Temperature (Cyndy-wound Skin No Abnormality Appearance) (Pt Warm) -Ulcer Cleansing Wound Cleanser -Foul Odor after Cleansing No -Anesthetic Used 4% Lidocaine Solution #5 LLE Post -Combined with other wound No -Current Size (cm) - Length 8.4 -Current Size (cm) - Width 1.5 -Current Size (cm) - Depth 0.2 -Total Square Cm 12.60 -Photo Taken No -Epithelialization None Present -Tunneling No -Undermining/Tunneling No -Circular Undermining No -Classification - Thickness Full Thickness without Exposed Support Structure -Exudate Amt Medium (34-66%) -Exudate Type Serosanguineous -Wound Margin Distinct, Outline Attached -Granulation Amt Small (1-33%) -Granulation Quality [place] -Slough/Fibrin Yes -Necrosis Amt Large (67-100%) -Necrotic Tissue Type Adherent Slough -Structure Exposed None/Limited to Skin Breakdown -Texture (Cyndy-wound Skin Appearance) Assessed Localized Edema Scarring -Moisture (Cyndy-wound Skin Appearance Assessed ) Weeping -Color (Cyndy-wound Skin Appearance) Assessed Erythema Hemosiderin Staining -Temperature (Cyndy-wound Skin No Abnormality Appearance) (Pt Warm) -Tenderness on Palpation (Cyndy-wound Yes Skin Appearance) -Ulcer Cleansing Wound Cleanser -Foul Odor after Cleansing No -Anesthetic Used 4% Lidocaine Solution [Edema Assessment] -Lower Limb Edema Present Yes -Right Calf (cm) 42.1 -Right Ankle (cm) 25.8 -Left Calf (cm) 44.0 -Point of measurement (cm from the 26.5 medial instep) WC - Nurse 2 - General Ulcer CM Notes Start: 10/20/17 08:33 Freq: Status: Active Protocol: Activity Type Activity Date Activity User E-Sign Co-Sign Detail Recorded Client Recorded Date Recorded By Document 11/03/17 08:50 MW [id number] 11/03/17 09:06 MW 11/03/17 08:50 Wound Center Nurse 2 [Procedure/Treatment] #6 L Ray -Time 08:51 -Correct Patient Yes -Correct Side, Site, Position Yes -Correct Procedure Yes -Procedure Performed Yes -Type of Procedure Debridement -Clinical Debridement Subcutaneous -Post Debridement Size (cm) - Length 9.5 -Post Debridement Size (cm) - Width 3.0 -Post Debridement Size (cm) - Depth 0.3 -Total Square Cm 28.50 -Wound/Ulcer Outcome Not Healed -Ulcer Cleansing Rinsed/ Irrigated with Saline -Foul Odor after Cleansing No -Bioengineered Tissue Yes -Type of bioengineered Tissue EPIFIX -Expiration Date 08/18/22 -Product Lot Number [id number] -Percent Used 100 -Saline Lot Number [id number] -Bleeding Controlled with Pressure -Treatment Response Procedure Tolerated Well #5 LLE Post -Time 08:54 -Correct Patient Yes -Correct Side, Site, Position Yes -Correct Procedure Yes -Procedure Performed Yes -Type of Procedure Debridement -Clinical Debridement Subcutaneous -Post Debridement Size (cm) - Length 8.5 -Post Debridement Size (cm) - Width 1.5 -Post Debridement Size (cm) - Depth 0.2 -Total Square Cm 12.75 -Wound/Ulcer Outcome Not Healed -Ulcer Cleansing Rinsed/ Irrigated with Saline -Foul Odor after Cleansing No -Bleeding Controlled with Pressure -Treatment Response Procedure Tolerated Well [See Physician Procedure note for Specifics] Pain Scale: 0-10 Numeric [Pain] -Is Patient Pain Free? Yes Musculoskeletal: No Tenderness to Palpation of Joints or Extremities Lymphatic: No Cervical, Supraclavicular, or Inguinal Adenopathy Neurological: Cranial nerves II-XII grossly intact, Neuro grossly intact Psych/Mental Status: Normal Affect, Appropriate Debridement Note Post-Debridement Measurements/Treatment WC - Nurse 2 - General Ulcer CM Notes Start: 10/20/17 08:33 Freq: Status: Active Protocol: Activity Type Activity Date Activity User E-Sign Co-Sign Detail Recorded Client Recorded Date Recorded By Document 10/20/17 09:17 MW [id number] 10/20/17 09:31 MW Document 10/27/17 08:48 MW [id number] 10/27/17 09:08 MW Document 11/03/17 08:50 MW [id number] 11/03/17 09:06 MW 10/20/17 10/27/17 11/03/17 09:17 08:48 08:50 Wound Center Nurse 2 #6 L Ray -Time 09:18 08:49 08:51 -Correct Patient Yes Yes Yes -Correct Side, Site, Position Yes Yes Yes -Correct Procedure Yes Yes Yes -Procedure Performed Yes Yes Yes -Type of Procedure Debridement Debridement Debridement -Clinical Debridement Subcutaneous Subcutaneous Subcutaneous -Post Debridement Size (cm) - Length 9.7 9.4 9.5 -Post Debridement Size (cm) - Width 3.2 2.8 3.0 -Post Debridement Size (cm) - Depth 0.3 0.3 0.3 -Total Square Cm 31.04 26.32 28.50 -Wound/Ulcer Outcome Not Healed Not Healed Not Healed -Ulcer Cleansing Rinsed/ Rinsed/ Rinsed/ Irrigated with Irrigated with Irrigated with Saline Saline Saline -Foul Odor after Cleansing No No No -Bioengineered Tissue Yes No Yes -Type of bioengineered Tissue EPIFIX EPIFIX EPIFIX -Expiration Date 05/19/22 05/19/22 08/18/22 -Product Lot Number [id number] -Percent Used 100 100 -Saline Lot Number [id number] -Cetacaine [place] No -Bleeding Controlled with Pressure Pressure Pressure -Other SALINE LOT # [id number] -Treatment Response Procedure Procedure Procedure Tolerated Well Tolerated Well Tolerated Well #5 LLE Post -Time 09:18 08:49 08:54 -Correct Patient Yes Yes Yes -Correct Side, Site, Position Yes Yes Yes -Correct Procedure Yes Yes Yes -Procedure Performed Yes Yes Yes -Type of Procedure Debridement Debridement Debridement -Clinical Debridement Subcutaneous Subcutaneous Subcutaneous -Post Debridement Size (cm) - Length 8.5 8.5 8.5 -Post Debridement Size (cm) - Width 1.8 1.8 1.5 -Post Debridement Size (cm) - Depth 0.2 0.2 0.2 -Total Square Cm 15.30 15.30 12.75 -Wound/Ulcer Outcome Not Healed Not Healed Not Healed -Ulcer Cleansing Rinsed/ Rinsed/ Rinsed/ Irrigated with Irrigated with Irrigated with Saline Saline Saline -Foul Odor after Cleansing No No No -Bioengineered Tissue No -Type of bioengineered Tissue EPIFIX -Cetacaine [place] No -Bleeding Controlled with Pressure Pressure Pressure -Treatment Response Procedure Procedure Procedure Tolerated Well Tolerated Well Tolerated Well Pain Scale: 0-10 Numeric Is Patient Pain Free? Yes Yes Yes Wound debrided: Left anterior ray Type of Debridement: Excisional debridement Anesthesia Used: 5% Lidocaine Gel Depth: Down to and including healthy tissue, in the subcutaneous layer Percentage of wound debrided: 100 Instrument Used: 5mm curette Tissue Removed: Slough and fibrin Severity: Limited To Skin Breakdown Amount of bleeding with debridement: Mild Bleeding Controlled with: Compression and gauze Patient tolerated procedure well - Additional Wound Wound debrided: Left lower posterior ulcer Type of Debridement: Excisional debridement Anesthesia Used: 5% Lidocaine Gel Depth: Down to and including healthy tissue, in the subcutaneous layer Percentage of wound debrided: 100 Instrument Used: 5mm curette Tissue Removed: Slough and fibrin Severity: Limited To Skin Breakdown Amount of bleeding with debridement: Mild Bleeding Controlled with: Pressure, Compression and gauze Patient tolerated procedure: Patient tolerated procedure well Assessment/Plan Recultured back of leg ulcer Active Problems Infected open wound (Acute) Nonischemic cardiomyopathy (Chronic) Chronic systolic CHF (congestive heart failure) (Chronic) Chronic atrial fibrillation (Chronic) Bilateral edema of lower extremity (Chronic) Neuropathic pain, leg, bilateral (Chronic) Nonhealing ulcer of left lower leg (Acute) Assessment: bilateral lower leg edema. Cellulitis,. Bilateral lower leg edema. Left lower leg ulcer-. Infection left lower leg ulcer. 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 Atrial fib to onset. Peripheral vascular disease Plan: Wash around bilateral lower leg ulcers. Left lower anterior ulcer do not touch because of the epi flix #3. Posterior ulcer apply Aquacel silver moistened with Adaptic and moistened gauze wrap and a double layer Tubigrip to bilateral lower legs. Follow-up in 1 week. Nursing notes reviewed
[2017-11-10 08:23] VITALS: BP 146/57; PULSE 113; RESP 18; TEMP 36.9; BMI 65.4
--- NOTE | 2017-11-10 09:31 | PCM.WC.PN ---
(1) Infected open wound Status: Acute Current Visit: Yes Code(s): T14.8XXA - Other injury of unspecified body region, initial encounter; L08.9 - Local infection of the skin and subcutaneous tissue, unspecified (2) Nonhealing ulcer of left lower leg Status: Acute Current Visit: Yes Code(s): L97.829 - Non-pressure chronic ulcer of other part of left lower leg with unspecified severity (3) Bilateral edema of lower extremity Status: Chronic Current Visit: Yes Code(s): R60.0 - Localized edema (4) Chronic atrial fibrillation Status: Chronic Current Visit: Yes Code(s): I48.2 - Chronic atrial fibrillation (5) Chronic systolic CHF (congestive heart failure) Status: Chronic Current Visit: Yes Code(s): I50.22 - Chronic systolic (congestive) heart failure (6) Neuropathic pain, leg, bilateral Status: Chronic Current Visit: Yes Code(s): G57.91 - Unspecified mononeuropathy of right lower limb; G57.92 - Unspecified mononeuropathy of left lower limb (7) Nonischemic cardiomyopathy Status: Chronic Current Visit: Yes Code(s): I42.8 - Other cardiomyopathies Type of Wound Date of Service: 11/10/17 Chief Complaint: Follow-up on bilateral lower leg ulcers History of Wound: 77-year-old white male who had surgery with Dr. 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 Apparently unbeknown to him he developed some open areas on the left lower leg and neglected them. Now he has very large deep ulcers with necrotic tissue and smell on the left lower leg anterior and posterior leg. Patient has been using his Aquacel silver on it. And not wearing his stockings or compression. There is a lot of edema and redness and cellulitis. Progress of Wound: The left anterior and posterior open ulcers still has a lot of yellow slough but improved. Will obtain another infection in his left lower leg anterior posterior will hold on the epi fix this week. We saw that there was no movement and improvement with the epi fix. He is on epi fix #3 and tolerating well anterior ray wound is improving. Swelling is much improved also wearing a double layer Tubigrip. His history of coxsackie a virus he still goes in a congestive heart failure he is BNP was over 500 his pre-albumin was 22 his regular albumin his blood was within normal limits shows some slight anemia on labs suggested he take iron. - Physical Exam Vital Signs Temp Pulse Resp BP 98.4 F 113 H 18 146/57 H 11/10/17 08:23 11/10/17 08:23 11/10/17 08:23 11/10/17 08:23 General: Oriented x3, Cooperative, Well developed HEENT: Atraumatic, PERRLA Oral: Moist Mucosa Neck: Supple, No JVD Lungs: Clear to auscultation, Normal air movement Cardiovascular: Regular rate, Regular Rhythm Abdomen: Bowel Sounds Present, Soft, Non Tender, No Hepato-splenomegaly Extremities: No clubbing, No edema Skin: - - Lower anterior posterior ray Wound Measurements and Assessment WC - Nurse 1 - General Ulcer Measurement Start: 10/20/17 08:33 Freq: Status: Active Protocol: Activity Type Activity Date Activity User E-Sign Co-Sign Detail Recorded Client Recorded Date Recorded By Document 11/10/17 08:23 [id number] 11/10/17 08:25 11/10/17 08:23 Wound Center Nurse 1 [Ulcer Assessment] #6 L Ray -Combined with other wound No -Current Size (cm) - Length 9.5 -Current Size (cm) - Width 3.5 -Current Size (cm) - Depth 0.2 -Total Square Cm 33.25 -Photo Taken No -Epithelialization Small 1-33% -Tunneling No -Undermining/Tunneling No -Circular Undermining No -Classification - Thickness Full Thickness without Exposed Support Structure -Exudate Amt Large (67-100%) -Exudate Type Serosanguineous -Wound Margin Fibrotic Scar, Thickened Scar -Granulation Amt Medium (34-66%) -Granulation Quality [place] -Slough/Fibrin Yes -Necrosis Amt Medium (34-66%) -Necrotic Tissue Type Adherent Slough -Structure Exposed Fascia Fat Layer Exposed -Texture (Cyndy-wound Skin Appearance) Friable Localized Edema Scarring -Moisture (Cyndy-wound Skin Appearance No Abnormality ) -Color ([place]yndy-wound Skin Appearance) Erythema Hemosiderin Staining -Temperature ([place]yndy-wound Skin No Abnormality Appearance) (Pt Warm) -Tenderness on Palpation (Cyndy-wound No Skin Appearance) -Ulcer Cleansing Rinsed/ Irrigated with Saline -Foul Odor after Cleansing No -Anesthetic Used 5% Lidocaine Gel #5 LLE Post -Combined with other wound No -Current Size (cm) - Length 8.4 -Current Size (cm) - Width 1.8 -Current Size (cm) - Depth 0.2 -Total Square Cm 15.12 -Photo Taken No -Epithelialization None Present -Tunneling No -Undermining/Tunneling No -Circular Undermining No -Classification - Thickness Full Thickness without Exposed Support Structure -Exudate Amt Medium (34-66%) -Exudate Type Serosanguineous -Wound Margin Fibrotic Scar, Thickened Scar -Granulation Amt Medium (34-66%) -Granulation Quality [place] -Slough/Fibrin Yes -Necrosis Amt Medium (34-66%) -Necrotic Tissue Type Adherent Slough -Structure Exposed Fascia Fat Layer Exposed -Texture (Cyndy-wound Skin Appearance) Friable Localized Edema Scarring -Moisture (Cyndy-wound Skin Appearance No Abnormality ) -Color (Cyndy-wound Skin Appearance) Erythema Hemosiderin Staining -Temperature (Cyndy-wound Skin No Abnormality Appearance) (Pt Warm) -Tenderness on Palpation (Cyndy-wound No Skin Appearance) -Ulcer Cleansing Rinsed/ Irrigated with Saline -Foul Odor after Cleansing No -Anesthetic Used 5% Lidocaine Gel [Edema Assessment] -Lower Limb Edema Present Yes -Left Calf (cm) 41.0 -Left Ankle (cm) 25.0 WC - Nurse 2 - General Ulcer CM Notes Start: 10/20/17 08:33 Freq: Status: Active Protocol: Activity Type Activity Date Activity User E-Sign Co-Sign Detail Recorded Client Recorded Date Recorded By Document 11/10/17 08:50 MW [id number] 11/10/17 08:59 MW 11/10/17 08:50 Wound Center Nurse 2 [Procedure/Treatment] #6 L Ray -Time 08:50 -Correct Patient Yes -Correct Side, Site, Position Yes -Correct Procedure Yes -Procedure Performed Yes -Type of Procedure Debridement -Clinical Debridement Subcutaneous -Post Debridement Size (cm) - Length 9.5 -Post Debridement Size (cm) - Width 3.0 -Post Debridement Size (cm) - Depth 0.3 -Total Square Cm 28.50 -Wound/Ulcer Outcome Not Healed -Ulcer Cleansing Rinsed/ Irrigated with Saline -Foul Odor after Cleansing No -Bioengineered Tissue No -Bleeding Controlled with Pressure -Treatment Response Procedure Tolerated Well #5 LLE Post -Time 08:51 -Correct Patient Yes -Correct Side, Site, Position Yes -Correct Procedure Yes -Procedure Performed Yes -Type of Procedure Debridement -Clinical Debridement Subcutaneous -Post Debridement Size (cm) - Length 9.0 -Post Debridement Size (cm) - Width 1.5 -Post Debridement Size (cm) - Depth 0.2 -Total Square Cm 13.50 -Wound/Ulcer Outcome Not Healed -Ulcer Cleansing Rinsed/ Irrigated with Saline -Foul Odor after Cleansing No -Bioengineered Tissue No -Bleeding Controlled with Pressure -Treatment Response Procedure Tolerated Well [See Physician Procedure note for Specifics] Pain Scale: 0-10 Numeric [Pain] -Is Patient Pain Free? Yes Musculoskeletal: No Tenderness to Palpation of Joints or Extremities Lymphatic: No Cervical, Supraclavicular, or Inguinal Adenopathy Neurological: Cranial nerves II-XII grossly intact, Neuro grossly intact Psych/Mental Status: Normal Affect, Appropriate Debridement Note Post-Debridement Measurements/Treatment WC - Nurse 2 - General Ulcer CM Notes Start: 10/20/17 08:33 Freq: Status: Active Protocol: Activity Type Activity Date Activity User E-Sign Co-Sign Detail Recorded Client Recorded Date Recorded By Document 10/20/17 09:17 MW [id number] 10/20/17 09:31 MW Document 10/27/17 08:48 MW [id number] 10/27/17 09:08 MW Document 11/03/17 08:50 MW [id number] 11/03/17 09:06 MW Document 11/10/17 08:50 MW [id number] 11/10/17 08:59 MW 10/20/17 10/27/17 11/03/17 09:17 08:48 08:50 Wound Center Nurse 2 #6 L Ray -Time 09:18 08:49 08:51 -Correct Patient Yes Yes Yes -Correct Side, Site, Position Yes Yes Yes -Correct Procedure Yes Yes Yes -Procedure Performed Yes Yes Yes -Type of Procedure Debridement Debridement Debridement -Clinical Debridement Subcutaneous Subcutaneous Subcutaneous -Post Debridement Size (cm) - Length 9.7 9.4 9.5 -Post Debridement Size (cm) - Width 3.2 2.8 3.0 -Post Debridement Size (cm) - Depth 0.3 0.3 0.3 -Total Square Cm 31.04 26.32 28.50 -Wound/Ulcer Outcome Not Healed Not Healed Not Healed -Ulcer Cleansing Rinsed/ Rinsed/ Rinsed/ Irrigated with Irrigated with Irrigated with Saline Saline Saline -Foul Odor after Cleansing No No No -Bioengineered Tissue Yes No Yes -Type of bioengineered Tissue EPIFIX EPIFIX EPIFIX -Expiration Date 05/19/22 05/19/22 08/18/22 -Product Lot Number [id number] -Percent Used 100 100 -Saline Lot Number [id number] -Cetacaine [place] No -Bleeding Controlled with Pressure Pressure Pressure -Other SALINE LOT # [id number] -Treatment Response Procedure Procedure Procedure Tolerated Well Tolerated Well Tolerated Well #5 LLE Post -Time 09:18 08:49 08:54 -Correct Patient Yes Yes Yes -Correct Side, Site, Position Yes Yes Yes -Correct Procedure Yes Yes Yes -Procedure Performed Yes Yes Yes -Type of Procedure Debridement Debridement Debridement -Clinical Debridement Subcutaneous Subcutaneous Subcutaneous -Post Debridement Size (cm) - Length 8.5 8.5 8.5 -Post Debridement Size (cm) - Width 1.8 1.8 1.5 -Post Debridement Size (cm) - Depth 0.2 0.2 0.2 -Total Square Cm 15.30 15.30 12.75 -Wound/Ulcer Outcome Not Healed Not Healed Not Healed -Ulcer Cleansing Rinsed/ Rinsed/ Rinsed/ Irrigated with Irrigated with Irrigated with Saline Saline Saline -Foul Odor after Cleansing No No No -Bioengineered Tissue No -Type of bioengineered Tissue EPIFIX -Cetacaine [place] No -Bleeding Controlled with Pressure Pressure Pressure -Treatment Response Procedure Procedure Procedure Tolerated Well Tolerated Well Tolerated Well Pain Scale: 0-10 Numeric Is Patient Pain Free? Yes Yes Yes 11/10/17 08:50 Wound Center Nurse 2 #6 L Ray -Time 08:50 -Correct Patient Yes -Correct Side, Site, Position Yes -Correct Procedure Yes -Procedure Performed Yes -Type of Procedure Debridement -Clinical Debridement Subcutaneous -Post Debridement Size (cm) - Length 9.5 -Post Debridement Size (cm) - Width 3.0 -Post Debridement Size (cm) - Depth 0.3 -Total Square Cm 28.50 -Wound/Ulcer Outcome Not Healed -Ulcer Cleansing Rinsed/ Irrigated with Saline -Foul Odor after Cleansing No -Bioengineered Tissue No -Type of bioengineered Tissue -Expiration Date -Product Lot Number -Percent Used -Saline Lot Number -Cetacaine [place] -Bleeding Controlled with Pressure -Other -Treatment Response Procedure Tolerated Well #5 LLE Post -Time 08:51 -Correct Patient Yes -Correct Side, Site, Position Yes -Correct Procedure Yes -Procedure Performed Yes -Type of Procedure Debridement -Clinical Debridement Subcutaneous -Post Debridement Size (cm) - Length 9.0 -Post Debridement Size (cm) - Width 1.5 -Post Debridement Size (cm) - Depth 0.2 -Total Square Cm 13.50 -Wound/Ulcer Outcome Not Healed -Ulcer Cleansing Rinsed/ Irrigated with Saline -Foul Odor after Cleansing No -Bioengineered Tissue No -Type of bioengineered Tissue -Cetacaine [place] -Bleeding Controlled with Pressure -Treatment Response Procedure Tolerated Well Pain Scale: 0-10 Numeric Is Patient Pain Free? Yes Wound debrided: Your lower ray Type of Debridement: Excisional debridement Anesthesia Used: 5% Lidocaine Gel Depth: Down to and including healthy tissue, in the subcutaneous layer Percentage of wound debrided: 100 Instrument Used: 5mm curette Tissue Removed: Slough and some fibrin Severity: Limited To Skin Breakdown Bleeding Controlled with: Pressure, Compression and gauze Patient tolerated procedure well - Additional Wound Wound debrided: posterior left lower leg Type of Debridement: Excisional debridement Anesthesia Used: 5% Lidocaine Gel Depth: Down to and including healthy tissue, in the subcutaneous layer Percentage of wound debrided: 100 Instrument Used: 5mm curette Tissue Removed: Slough and fibrin Severity: Limited To Skin Breakdown Amount of bleeding with debridement: Mild Bleeding Controlled with: Compression and gauze Patient tolerated procedure: Patient tolerated procedure well Assessment/Plan Active Problems Infected open wound (Acute) Nonischemic cardiomyopathy (Chronic) Chronic systolic CHF (congestive heart failure) (Chronic) Chronic atrial fibrillation (Chronic) Bilateral edema of lower extremity (Chronic) Neuropathic pain, leg, bilateral (Chronic) Nonhealing ulcer of left lower leg (Acute) Assessment: bilateral lower leg edema. Cellulitis,. Bilateral lower leg edema. Left lower leg ulcer-. Infection left lower leg ulcer. 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 Atrial fib to onset. Peripheral vascular disease Plan: Wash around bilateral lower leg ulcers. Left lower anterior and posterior ulcers apply Aquacel silver moistened Adaptic gauze and [place]. Continue the double layer Tubigrip to bilateral lower legs. Follow-up in 1 week. ReStart epi fix next week. Nursing notes reviewed
--- NOTE | 2017-11-10 09:36 | PN.PCM_ITS ---
(1) Infected open wound Status: Acute Current Visit: Yes Code(s): T14.8XXA - Other injury of unspecified body region, initial encounter; L08.9 - Local infection of the skin and subcutaneous tissue, unspecified (2) Nonhealing ulcer of left lower leg Status: Acute Current Visit: Yes Code(s): L97.829 - Non-pressure chronic ulcer of other part of left lower leg with unspecified severity (3) Bilateral edema of lower extremity Status: Chronic Current Visit: Yes Code(s): R60.0 - Localized edema (4) Chronic atrial fibrillation Status: Chronic Current Visit: Yes Code(s): I48.2 - Chronic atrial fibrillation (5) Chronic systolic CHF (congestive heart failure) Status: Chronic Current Visit: Yes Code(s): I50.22 - Chronic systolic ( congestive) heart failure (6) Neuropathic pain, leg, bilateral Status: Chronic Current Visit: Yes Code(s): G57.91 - Unspecified mononeuropathy of right lower limb; G57.92 - Unspecified mononeuropathy of left lower limb (7) Nonischemic cardiomyopathy Status: Chronic Current Visit: Yes Code(s): I42.8 - Other cardiomyopathies Type of Wound Date of Service: 11/10/17 Chief Complaint: Follow-up on bilateral lower leg ulcers History of Wound: 77-year-old white male who had surgery with Dr. 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 Apparently unbeknown to him he developed some open areas on the left lower leg and neglected them. Now he has very large deep ulcers with necrotic tissue and smell on the left lower leg anterior and posterior leg. Patient has been using his Aquacel silver on it. And not wearing his stockings or compression. There is a lot of edema and redness and cellulitis. Progress of Wound: The left anterior and posterior open ulcers still has a lot of yellow slough but improved. Will obtain another infection in his left lower leg anterior posterior will hold on the epi fix this week. We saw that there was no movement and improvement with the epi fix. He is on epi fix #3 and tolerating well anterior ray wound is improving. Swelling is much improved also wearing a double layer Tubigrip. His history of coxsackie a virus he still goes in a congestive heart failure he is BNP was over 500 his pre-albumin was 22 his regular albumin his blood was within normal limits shows some slight anemia on labs suggested he take iron. - Physical Exam Vital Signs Temp Pulse Resp BP 98.4 F 113 H 18 146/57 H 11/10/17 08:23 11/10/17 08:23 11/10/17 08:23 11/10/17 08:23 General: Oriented x3, Cooperative, Well developed HEENT: Atraumatic, PERRLA Oral: Moist Mucosa Neck: Supple, No JVD Lungs: Clear to auscultation, Normal air movement Cardiovascular: Regular rate, Regular Rhythm Abdomen: Bowel Sounds Present, Soft, Non Tender, No Hepato-splenomegaly Extremities: No clubbing, No edema Skin: - - Lower anterior posterior ray Wound Measurements and Assessment WC - Nurse 1 - General Ulcer Measurement Start: 10/20/17 08:33 Freq: Status: Active Protocol: Activity Type Activity Date Activity User E-Sign Co-Sign Detail Recorded Client Recorded Date Recorded By Document 11/10/17 08:23 [id number] 11/10/17 08:25 11/10/17 08:23 Wound Center Nurse 1 [Ulcer Assessment] #6 L Ray -Combined with other wound No -Current Size (cm) - Length 9.5 -Current Size (cm) - Width 3.5 -Current Size (cm) - Depth 0.2 -Total Square Cm 33.25 -Photo Taken No -Epithelialization Small 1-33% -Tunneling No -Undermining/Tunneling No -Circular Undermining No -Classification - Thickness Full Thickness without Exposed Support Structure -Exudate Amt Large (67-100%) -Exudate Type Serosanguineous -Wound Margin Fibrotic Scar, Thickened Scar -Granulation Amt Medium (34-66%) -Granulation Quality [place] -Slough/Fibrin Yes -Necrosis Amt Medium (34-66%) -Necrotic Tissue Type Adherent Slough -Structure Exposed Fascia Fat Layer Exposed -Texture (Cyndy-wound Skin Appearance) Friable Localized Edema Scarring -Moisture (Cyndy-wound Skin Appearance No Abnormality ) -Color (Cyndy-wound Skin Appearance) Erythema Hemosiderin Staining -Temperature (Cyndy-wound Skin No Abnormality Appearance) (Pt Warm) -Tenderness on Palpation (Cyndy-wound No Skin Appearance) -Ulcer Cleansing Rinsed/ Irrigated with Saline -Foul Odor after Cleansing No -Anesthetic Used 5% Lidocaine Gel #5 LLE Post -Combined with other wound No -Current Size (cm) - Length 8.4 -Current Size (cm) - Width 1.8 -Current Size (cm) - Depth 0.2 -Total Square Cm 15.12 -Photo Taken No -Epithelialization None Present -Tunneling No -Undermining/Tunneling No -Circular Undermining No -Classification - Thickness Full Thickness without Exposed Support Structure -Exudate Amt Medium (34-66%) -Exudate Type Serosanguineous -Wound Margin Fibrotic Scar, Thickened Scar -Granulation Amt Medium (34-66%) -Granulation Quality [place] -Slough/Fibrin Yes -Necrosis Amt Medium (34-66%) -Necrotic Tissue Type Adherent Slough -Structure Exposed Fascia Fat Layer Exposed -Texture (Cyndy-wound Skin Appearance) Friable Localized Edema Scarring -Moisture (Cyndy-wound Skin Appearance No Abnormality ) -Color (Cyndy-wound Skin Appearance) Erythema Hemosiderin Staining -Temperature (Cyndy-wound Skin No Abnormality Appearance) (Pt Warm) -Tenderness on Palpation (Cyndy-wound No Skin Appearance) -Ulcer Cleansing Rinsed/ Irrigated with Saline -Foul Odor after Cleansing No -Anesthetic Used 5% Lidocaine Gel [Edema Assessment] -Lower Limb Edema Present Yes -Left Calf (cm) 41.0 -Left Ankle (cm) 25.0 WC - Nurse 2 - General Ulcer CM Notes Start: 10/20/17 08:33 Freq: Status: Active Protocol: Activity Type Activity Date Activity User E-Sign Co-Sign Detail Recorded Client Recorded Date Recorded By Document 11/10/17 08:50 MW [id number] 11/10/17 08:59 MW 11/10/17 08:50 Wound Center Nurse 2 [Procedure/Treatment] #6 L Ray -Time 08:50 -Correct Patient Yes -Correct Side, Site, Position Yes -Correct Procedure Yes -Procedure Performed Yes -Type of Procedure Debridement -Clinical Debridement Subcutaneous -Post Debridement Size (cm) - Length 9.5 -Post Debridement Size (cm) - Width 3.0 -Post Debridement Size (cm) - Depth 0.3 -Total Square Cm 28.50 -Wound/Ulcer Outcome Not Healed -Ulcer Cleansing Rinsed/ Irrigated with Saline -Foul Odor after Cleansing No -Bioengineered Tissue No -Bleeding Controlled with Pressure -Treatment Response Procedure Tolerated Well #5 LLE Post -Time 08:51 -Correct Patient Yes -Correct Side, Site, Position Yes -Correct Procedure Yes -Procedure Performed Yes -Type of Procedure Debridement -Clinical Debridement Subcutaneous -Post Debridement Size (cm) - Length 9.0 -Post Debridement Size (cm) - Width 1.5 -Post Debridement Size (cm) - Depth 0.2 -Total Square Cm 13.50 -Wound/Ulcer Outcome Not Healed -Ulcer Cleansing Rinsed/ Irrigated with Saline -Foul Odor after Cleansing No -Bioengineered Tissue No -Bleeding Controlled with Pressure -Treatment Response Procedure Tolerated Well [See Physician Procedure note for Specifics] Pain Scale: 0-10 Numeric [Pain] -Is Patient Pain Free? Yes Musculoskeletal: No Tenderness to Palpation of Joints or Extremities Lymphatic: No Cervical, Supraclavicular, or Inguinal Adenopathy Neurological: Cranial nerves II-XII grossly intact, Neuro grossly intact Psych/Mental Status: Normal Affect, Appropriate Debridement Note Post-Debridement Measurements/Treatment WC - Nurse 2 - General Ulcer CM Notes Start: 10/20/17 08:33 Freq: Status: Active Protocol: Activity Type Activity Date Activity User E-Sign Co-Sign Detail Recorded Client Recorded Date Recorded By Document 10/20/17 09:17 MW [id number] 10/20/17 09:31 MW Document 10/27/17 08:48 MW [id number] 10/27/17 09:08 MW Document 11/03/17 08:50 MW [id number] 11/03/17 09:06 MW Document 11/10/17 08:50 MW [id number] 11/10/17 08:59 MW 10/20/17 10/27/17 11/03/17 09:17 08:48 08:50 Wound Center Nurse 2 #6 L Ray -Time 09:18 08:49 08:51 -Correct Patient Yes Yes Yes -Correct Side, Site, Position Yes Yes Yes -Correct Procedure Yes Yes Yes -Procedure Performed Yes Yes Yes -Type of Procedure Debridement Debridement Debridement -Clinical Debridement Subcutaneous Subcutaneous Subcutaneous -Post Debridement Size (cm) - Length 9.7 9.4 9.5 -Post Debridement Size (cm) - Width 3.2 2.8 3.0 -Post Debridement Size (cm) - Depth 0.3 0.3 0.3 -Total Square Cm 31.04 26.32 28.50 -Wound/Ulcer Outcome Not Healed Not Healed Not Healed -Ulcer Cleansing Rinsed/ Rinsed/ Rinsed/ Irrigated with Irrigated with Irrigated with Saline Saline Saline -Foul Odor after Cleansing No No No -Bioengineered Tissue Yes No Yes -Type of bioengineered Tissue EPIFIX EPIFIX EPIFIX -Expiration Date 05/19/22 05/19/22 08/18/22 -Product Lot Number [id number] -Percent Used 100 100 -Saline Lot Number [id number] -Cetacaine [place] No -Bleeding Controlled with Pressure Pressure Pressure -Other SALINE LOT # [id number] -Treatment Response Procedure Procedure Procedure Tolerated Well Tolerated Well Tolerated Well #5 LLE Post -Time 09:18 08:49 08:54 -Correct Patient Yes Yes Yes -Correct Side, Site, Position Yes Yes Yes -Correct Procedure Yes Yes Yes -Procedure Performed Yes Yes Yes -Type of Procedure Debridement Debridement Debridement -Clinical Debridement Subcutaneous Subcutaneous Subcutaneous -Post Debridement Size (cm) - Length 8.5 8.5 8.5 -Post Debridement Size (cm) - Width 1.8 1.8 1.5 -Post Debridement Size (cm) - Depth 0.2 0.2 0.2 -Total Square Cm 15.30 15.30 12.75 -Wound/Ulcer Outcome Not Healed Not Healed Not Healed -Ulcer Cleansing Rinsed/ Rinsed/ Rinsed/ Irrigated with Irrigated with Irrigated with Saline Saline Saline -Foul Odor after Cleansing No No No -Bioengineered Tissue No -Type of bioengineered Tissue EPIFIX -Cetacaine [place] No -Bleeding Controlled with Pressure Pressure Pressure -Treatment Response Procedure Procedure Procedure Tolerated Well Tolerated Well Tolerated Well Pain Scale: 0-10 Numeric Is Patient Pain Free? Yes Yes Yes 11/10/17 08:50 Wound Center Nurse 2 #6 L Ray -Time 08:50 -Correct Patient Yes -Correct Side, Site, Position Yes -Correct Procedure Yes -Procedure Performed Yes -Type of Procedure Debridement -Clinical Debridement Subcutaneous -Post Debridement Size (cm) - Length 9.5 -Post Debridement Size (cm) - Width 3.0 -Post Debridement Size (cm) - Depth 0.3 -Total Square Cm 28.50 -Wound/Ulcer Outcome Not Healed -Ulcer Cleansing Rinsed/ Irrigated with Saline -Foul Odor after Cleansing No -Bioengineered Tissue No -Type of bioengineered Tissue -Expiration Date -Product Lot Number -Percent Used -Saline Lot Number -Cetacaine [place] -Bleeding Controlled with Pressure -Other -Treatment Response Procedure Tolerated Well #5 LLE Post -Time 08:51 -Correct Patient Yes -Correct Side, Site, Position Yes -Correct Procedure Yes -Procedure Performed Yes -Type of Procedure Debridement -Clinical Debridement Subcutaneous -Post Debridement Size (cm) - Length 9.0 -Post Debridement Size (cm) - Width 1.5 -Post Debridement Size (cm) - Depth 0.2 -Total Square Cm 13.50 -Wound/Ulcer Outcome Not Healed -Ulcer Cleansing Rinsed/ Irrigated with Saline -Foul Odor after Cleansing No -Bioengineered Tissue No -Type of bioengineered Tissue -Cetacaine [place] -Bleeding Controlled with Pressure -Treatment Response Procedure Tolerated Well Pain Scale: 0-10 Numeric Is Patient Pain Free? Yes Wound debrided: Your lower ray Type of Debridement: Excisional debridement Anesthesia Used: 5% Lidocaine Gel Depth: Down to and including healthy tissue, in the subcutaneous layer Percentage of wound debrided: 100 Instrument Used: 5mm curette Tissue Removed: Slough and some fibrin Severity: Limited To Skin Breakdown Bleeding Controlled with: Pressure, Compression and gauze Patient tolerated procedure well - Additional Wound Wound debrided: posterior left lower leg Type of Debridement: Excisional debridement Anesthesia Used: 5% Lidocaine Gel Depth: Down to and including healthy tissue, in the subcutaneous layer Percentage of wound debrided: 100 Instrument Used: 5mm curette Tissue Removed: Slough and fibrin Severity: Limited To Skin Breakdown Amount of bleeding with debridement: Mild Bleeding Controlled with: Compression and gauze Patient tolerated procedure: Patient tolerated procedure well Assessment/Plan Active Problems Infected open wound (Acute) Nonischemic cardiomyopathy (Chronic) Chronic systolic CHF (congestive heart failure) (Chronic) Chronic atrial fibrillation (Chronic) Bilateral edema of lower extremity (Chronic) Neuropathic pain, leg, bilateral (Chronic) Nonhealing ulcer of left lower leg (Acute) Assessment: bilateral lower leg edema. Cellulitis,. Bilateral lower leg edema. Left lower leg ulcer-. Infection left lower leg ulcer. 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 Atrial fib to onset. Peripheral vascular disease Plan: Wash around bilateral lower leg ulcers. Left lower anterior and posterior ulcers apply Aquacel silver moistened Adaptic gauze and Sanjuana. Continue the double layer Tubigrip to bilateral lower legs. Follow-up in 1 week. ReStart epi fix next week. Nursing notes reviewed
== END 2017-11-15 23:59 ==
LOC: WC 08:00
PROVIDERS: Family Provider Internal Medicine; PCP Internal Medicine; Visit Provider Nurse Practitioner
DX: I73.9 Peripheral vascular disease, unspecified (principal); L97.821 Non-pressure chronic ulcer of other part of left lower leg limited to breakdown of skin; I50.22 Chronic systolic (congestive) heart failure; I48.2 Chronic atrial fibrillation; I42.9 Cardiomyopathy, unspecified; R60.0 Localized edema; G57.91 Unspecified mononeuropathy of right lower limb; G57.92 Unspecified mononeuropathy of left lower limb
CPT/HCPCS: 11042; 11045; 15271; 87070; 87075; 87077; 87186; 87205; Q4131

== ENCOUNTER 2017-12-15 11:30 | Outpatient (RCR) | payer MEDICARE, OTHER, SELFPAY ==
[2017-11-16 00:13] VITALS: BP 99/57; PULSE 113; RESP 18; TEMP 36.9; BMI 65.4
[2017-11-17 08:14] VITALS: BP 101/51; PULSE 80; RESP 18; TEMP 37.3; BMI 65.4
--- NOTE | 2017-11-17 11:04 | PCM.WC.PN ---
(1) Infected open wound Status: Acute Current Visit: Yes Code(s): T14.8XXA - Other injury of unspecified body region, initial encounter; L08.9 - Local infection of the skin and subcutaneous tissue, unspecified (2) Nonhealing ulcer of left lower leg Status: Acute Current Visit: Yes Code(s): L97.829 - Non-pressure chronic ulcer of other part of left lower leg with unspecified severity (3) Bilateral edema of lower extremity Status: Chronic Current Visit: Yes Code(s): R60.0 - Localized edema (4) Chronic atrial fibrillation Status: Chronic Current Visit: Yes Code(s): I48.2 - Chronic atrial fibrillation (5) Neuropathic pain, leg, bilateral Status: Chronic Current Visit: Yes Code(s): G57.91 - Unspecified mononeuropathy of right lower limb; G57.92 - Unspecified mononeuropathy of left lower limb Type of Wound Date of Service: 11/17/17 Chief Complaint: Follow-up on bilateral lower leg ulcers History of Wound: 77-year-old white male who had surgery with Dr. 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 Apparently unbeknown to him he developed some open areas on the left lower leg and neglected them. Now he has very large deep ulcers with necrotic tissue and smell on the left lower leg anterior and posterior leg. Patient has been using his Aquacel silver on it. And not wearing his stockings or compression. There is a lot of edema and redness and cellulitis. Progress of Wound: The left anterior and posterior open ulcers still has a lot of yellow slough but easily removed and improved. Sitting up antibiotic therapy for his infection will be able to apply epi fix #4. Both ulcers today are slightly improved. Swelling is much improved also wearing a double layer Tubigrip. His history of coxsackie a virus he still goes in a congestive heart failure he is BNP was over 500 his pre-albumin was 22 his regular albumin his blood was within normal limits shows some slight anemia on labs suggested he take iron. - Physical Exam Vital Signs Temp Pulse Resp BP 99.1 F 80 18 101/51 L 11/17/17 08:14 11/17/17 08:14 11/17/17 08:14 11/17/17 08:14 General: Oriented x3, Cooperative, Well developed HEENT: Atraumatic, PERRLA Oral: Moist Mucosa Neck: Supple, No JVD Lungs: Clear to auscultation, Normal air movement Cardiovascular: Regular rate, Regular Rhythm Abdomen: Bowel Sounds Present, Soft, Non Tender, No Hepato-splenomegaly Extremities: No clubbing, Edema Skin: Ulcer/ Wound - Left anterior and posterior lower leg ulcers Wound Measurements and Assessment WC - Nurse 1 - General Ulcer Measurement Start: 11/17/17 08:14 Freq: Status: Active Protocol: Activity Type Activity Date Activity User E-Sign Co-Sign Detail Recorded Client Recorded Date Recorded By Document 11/17/17 08:14 TM [id number] 11/17/17 08:28 TM 11/17/17 08:14 Wound Center Nurse 1 [Ulcer Assessment] #6 L Christensen -Combined with other wound No -Current Size (cm) - Length 8.0 -Current Size (cm) - Width 4.0 -Current Size (cm) - Depth 0.2 -Total Square Cm 32.00 -Photo Taken No -Epithelialization None Present -Tunneling No -Undermining/Tunneling No -Circular Undermining No -Classification - Thickness Full Thickness without Exposed Support Structure -Exudate Amt Large (67-100%) -Exudate Type Serosanguineous -Wound Margin Fibrotic Scar, Thickened Scar -Granulation Amt Small (1-33%) -Granulation Quality [place] -Slough/Fibrin Yes -Necrosis Amt Large (67-100%) -Necrotic Tissue Type Adherent Slough -Structure Exposed Fascia Fat Layer Exposed -Texture (Cyndy-wound Skin Appearance) Friable Localized Edema Scarring -Moisture (Cyndy-wound Skin Appearance No Abnormality ) -Color (Cyndy-wound Skin Appearance) Erythema Hemosiderin Staining -Temperature (Cyndy-wound Skin No Abnormality Appearance) (Pt Warm) -Tenderness on Palpation (Cyndy-wound No Skin Appearance) -Ulcer Cleansing Rinsed/ Irrigated with Saline -Foul Odor after Cleansing No -Anesthetic Used 5% Lidocaine Gel #5 LLE Post -Combined with other wound No -Current Size (cm) - Length 8.3 -Current Size (cm) - Width 4.5 -Current Size (cm) - Depth 0.2 -Total Square Cm 37.35 -Photo Taken No -Epithelialization Small 1-33% -Tunneling No -Undermining/Tunneling No -Circular Undermining No -Classification - Thickness Full Thickness without Exposed Support Structure -Exudate Amt Small (1-33%) -Exudate Type Serosanguineous -Wound Margin Distinct, Outline Attached -Granulation Amt None Present (0 %) -Granulation Quality N/A -Slough/Fibrin Yes -Necrosis Amt Large (67-100%) -Necrotic Tissue Type Adherent Slough -Structure Exposed Fascia Fat Layer Exposed -Texture (Cyndy-wound Skin Appearance) Localized Edema Scarring -Moisture (Cyndy-wound Skin Appearance No Abnormality ) -Color (Cyndy-wound Skin Appearance) Erythema Hemosiderin Staining -Temperature (Cyndy-wound Skin No Abnormality Appearance) (Pt Warm) -Tenderness on Palpation (Cyndy-wound No Skin Appearance) -Ulcer Cleansing Rinsed/ Irrigated with Saline -Foul Odor after Cleansing No -Anesthetic Used 5% Lidocaine Gel [Edema Assessment] -Lower Limb Edema Present Yes -Left Calf (cm) 41.0 -Left Ankle (cm) 27.5 WC - Nurse 2 - General Ulcer CM Notes Start: 11/17/17 08:14 Freq: Status: Active Protocol: Activity Type Activity Date Activity User E-Sign Co-Sign Detail Recorded Client Recorded Date Recorded By Document 11/17/17 08:34 MW [id number] 11/17/17 08:45 MW 11/17/17 08:34 Wound Center Nurse 2 [Procedure/Treatment] #6 L Christensen -Time 08:36 -Correct Patient Yes -Correct Side, Site, Position Yes -Correct Procedure Yes -Procedure Performed Yes -Type of Procedure Debridement -Clinical Debridement Subcutaneous -Post Debridement Size (cm) - Length 9.4 -Post Debridement Size (cm) - Width 3.4 -Post Debridement Size (cm) - Depth 0.3 -Total Square Cm 31.96 -Wound/Ulcer Outcome Not Healed -Foul Odor after Cleansing No -Type of bioengineered Tissue EPIFIX -Expiration Date 08/18/22 -Product Lot Number [id number] -Percent Used 100 -Saline Lot Number [id number] -Bleeding Controlled with Pressure -Treatment Response Procedure Tolerated Well #5 LLE Post -Time 08:36 -Correct Patient Yes -Correct Side, Site, Position Yes -Correct Procedure Yes -Procedure Performed Yes -Type of Procedure Debridement -Clinical Debridement Subcutaneous -Post Debridement Size (cm) - Length 8.5 -Post Debridement Size (cm) - Width 1.4 -Post Debridement Size (cm) - Depth 0.2 -Total Square Cm 11.90 -Wound/Ulcer Outcome Not Healed -Ulcer Cleansing Rinsed/ Irrigated with Saline -Foul Odor after Cleansing No -Bioengineered Tissue No -Type of bioengineered Tissue EPIFIX -Bleeding Controlled with Pressure -Treatment Response Procedure Tolerated Well [See Physician Procedure note for Specifics] Pain Scale: 0-10 Numeric [Pain] -Is Patient Pain Free? Yes Musculoskeletal: No Tenderness to Palpation of Joints or Extremities Lymphatic: No Cervical, Supraclavicular, or Inguinal Adenopathy Neurological: Cranial nerves II-XII grossly intact, Neuro grossly intact Psych/Mental Status: Normal Affect, Appropriate Debridement Note Post-Debridement Measurements/Treatment WC - Nurse 2 - General Ulcer CM Notes Start: 11/17/17 08:14 Freq: Status: Active Protocol: Activity Type Activity Date Activity User E-Sign Co-Sign Detail Recorded Client Recorded Date Recorded By Document 11/17/17 08:34 MW [id number] 11/17/17 08:45 MW 11/17/17 08:34 Wound Center Nurse 2 #6 L Christensen -Time 08:36 -Correct Patient Yes -Correct Side, Site, Position Yes -Correct Procedure Yes -Procedure Performed Yes -Type of Procedure Debridement -Clinical Debridement Subcutaneous -Post Debridement Size (cm) - Length 9.4 -Post Debridement Size (cm) - Width 3.4 -Post Debridement Size (cm) - Depth 0.3 -Total Square Cm 31.96 -Wound/Ulcer Outcome Not Healed -Foul Odor after Cleansing No -Type of bioengineered Tissue EPIFIX -Expiration Date 08/18/22 -Product Lot Number [id number] -Percent Used 100 -Saline Lot Number [id number] -Bleeding Controlled with Pressure -Treatment Response Procedure Tolerated Well #5 LLE Post -Time 08:36 -Correct Patient Yes -Correct Side, Site, Position Yes -Correct Procedure Yes -Procedure Performed Yes -Type of Procedure Debridement -Clinical Debridement Subcutaneous -Post Debridement Size (cm) - Length 8.5 -Post Debridement Size (cm) - Width 1.4 -Post Debridement Size (cm) - Depth 0.2 -Total Square Cm 11.90 -Wound/Ulcer Outcome Not Healed -Ulcer Cleansing Rinsed/ Irrigated with Saline -Foul Odor after Cleansing No -Bioengineered Tissue No -Type of bioengineered Tissue EPIFIX -Bleeding Controlled with Pressure -Treatment Response Procedure Tolerated Well Pain Scale: 0-10 Numeric Is Patient Pain Free? Yes Wound debrided: Lower anterior ulcer Type of Debridement: Excisional debridement Anesthesia Used: 5% Lidocaine Gel Depth: in the subcutaneous layer Instrument Used: 7mm curette Tissue Removed: slough and fibrin Severity: Limited To Skin Breakdown Amount of bleeding with debridement: Mild Bleeding Controlled with: Compression and gauze Patient tolerated procedure well - Additional Wound Wound debrided: Posterior left lower leg Type of Debridement: Excisional debridement Anesthesia Used: 5% Lidocaine Gel Depth: Down to and including healthy tissue, in the subcutaneous layer Percentage of wound debrided: 100 Instrument Used: 7mm curette Tissue Removed: Slough and fibrin Severity: Limited To Skin Breakdown Amount of bleeding with debridement: Mild Bleeding Controlled with: Compression and gauze Patient tolerated procedure: Patient tolerated procedure well Assessment/Plan Active Problems Infected open wound (Acute) Chronic atrial fibrillation (Chronic) Bilateral edema of lower extremity (Chronic) Neuropathic pain, leg, bilateral (Chronic) Nonhealing ulcer of left lower leg (Acute) Assessment: bilateral lower leg edema. Cellulitis,. Bilateral lower leg edema. Left lower leg ulcer-. Infection left lower leg ulcer. 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 Atrial fib to onset. Peripheral vascular disease Plan: Wash around bilateral lower leg ulcers. Left lower anterior epi f ix #4. and posterior ulcers apply promogran moistened Adaptic gauze and Sanjuana QOD. Continue the double layer Tubigrip to bilateral lower legs. Follow-up in 2week. Nursing notes reviewed
--- NOTE | 2017-11-17 11:16 | PN.PCM_ITS ---
(1) Infected open wound Status: Acute Current Visit: Yes Code(s): T14.8XXA - Other injury of unspecified body region, initial encounter; L08.9 - Local infection of the skin and subcutaneous tissue, unspecified (2) Nonhealing ulcer of left lower leg Status: Acute Current Visit: Yes Code(s): L97.829 - Non-pressure chronic ulcer of other part of left lower leg with unspecified severity (3) Bilateral edema of lower extremity Status: Chronic Current Visit: Yes Code(s): R60.0 - Localized edema (4) Chronic atrial fibrillation Status: Chronic Current Visit: Yes Code(s): I48.2 - Chronic atrial fibrillation (5) Neuropathic pain, leg, bilateral Status: Chronic Current Visit: Yes Code(s): G57.91 - Unspecified mononeuropathy of right lower limb; G57.92 - Unspecified mononeuropathy of left lower limb Type of Wound Date of Service: 11/17/17 Chief Complaint: Follow-up on bilateral lower leg ulcers History of Wound: 77-year-old white male who had surgery with Dr. 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 Apparently unbeknown to him he developed some open areas on the left lower leg and neglected them. Now he has very large deep ulcers with necrotic tissue and smell on the left lower leg anterior and posterior leg. Patient has been using his Aquacel silver on it. And not wearing his stockings or compression. There is a lot of edema and redness and cellulitis. Progress of Wound: The left anterior and posterior open ulcers still has a lot of yellow slough but easily removed and improved. Sitting up antibiotic therapy for his infection will be able to apply epi fix #4. Both ulcers today are slightly improved. Swelling is much improved also wearing a double layer Tubigrip. His history of coxsackie a virus he still goes in a congestive heart failure he is BNP was over 500 his pre-albumin was 22 his regular albumin his blood was within normal limits shows some slight anemia on labs suggested he take iron. - Physical Exam Vital Signs Temp Pulse Resp BP 99.1 F 80 18 101/51 L 11/17/17 08:14 11/17/17 08:14 11/17/17 08:14 11/17/17 08:14 General: Oriented x3, Cooperative, Well developed HEENT: Atraumatic, PERRLA Oral: Moist Mucosa Neck: Supple, No JVD Lungs: Clear to auscultation, Normal air movement Cardiovascular: Regular rate, Regular Rhythm Abdomen: Bowel Sounds Present, Soft, Non Tender, No Hepato-splenomegaly Extremities: No clubbing, Edema Skin: Ulcer/ Wound - Left anterior and posterior lower leg ulcers Wound Measurements and Assessment WC - Nurse 1 - General Ulcer Measurement Start: 11/17/17 08:14 Freq: Status: Active Protocol: Activity Type Activity Date Activity User E-Sign Co-Sign Detail Recorded Client Recorded Date Recorded By Document 11/17/17 08:14 TM [id number] 11/17/17 08:28 TM 11/17/17 08:14 Wound Center Nurse 1 [Ulcer Assessment] #6 L Christensen -Combined with other wound No -Current Size (cm) - Length 8.0 -Current Size (cm) - Width 4.0 -Current Size (cm) - Depth 0.2 -Total Square Cm 32.00 -Photo Taken No -Epithelialization None Present -Tunneling No -Undermining/Tunneling No -Circular Undermining No -Classification - Thickness Full Thickness without Exposed Support Structure -Exudate Amt Large (67-100%) -Exudate Type Serosanguineous -Wound Margin Fibrotic Scar, Thickened Scar -Granulation Amt Small (1-33%) -Granulation Quality [place] -Slough/Fibrin Yes -Necrosis Amt Large (67-100%) -Necrotic Tissue Type Adherent Slough -Structure Exposed Fascia Fat Layer Exposed -Texture (Cyndy-wound Skin Appearance) Friable Localized Edema Scarring -Moisture (Cyndy-wound Skin Appearance No Abnormality ) -Color (Cyndy-wound Skin Appearance) Erythema Hemosiderin Staining -Temperature (Cyndy-wound Skin No Abnormality Appearance) (Pt Warm) -Tenderness on Palpation (Cyndy-wound No Skin Appearance) -Ulcer Cleansing Rinsed/ Irrigated with Saline -Foul Odor after Cleansing No -Anesthetic Used 5% Lidocaine Gel #5 LLE Post -Combined with other wound No -Current Size (cm) - Length 8.3 -Current Size (cm) - Width 4.5 -Current Size (cm) - Depth 0.2 -Total Square Cm 37.35 -Photo Taken No -Epithelialization Small 1-33% -Tunneling No -Undermining/Tunneling No -Circular Undermining No -Classification - Thickness Full Thickness without Exposed Support Structure -Exudate Amt Small (1-33%) -Exudate Type Serosanguineous -Wound Margin Distinct, Outline Attached -Granulation Amt None Present (0 %) -Granulation Quality N/A -Slough/Fibrin Yes -Necrosis Amt Large (67-100%) -Necrotic Tissue Type Adherent Slough -Structure Exposed Fascia Fat Layer Exposed -Texture (Cyndy-wound Skin Appearance) Localized Edema Scarring -Moisture (Cyndy-wound Skin Appearance No Abnormality ) -Color (Cyndy-wound Skin Appearance) Erythema Hemosiderin Staining -Temperature (Cyndy-wound Skin No Abnormality Appearance) (Pt Warm) -Tenderness on Palpation (Cyndy-wound No Skin Appearance) -Ulcer Cleansing Rinsed/ Irrigated with Saline -Foul Odor after Cleansing No -Anesthetic Used 5% Lidocaine Gel [Edema Assessment] -Lower Limb Edema Present Yes -Left Calf (cm) 41.0 -Left Ankle (cm) 27.5 WC - Nurse 2 - General Ulcer CM Notes Start: 11/17/17 08:14 Freq: Status: Active Protocol: Activity Type Activity Date Activity User E-Sign Co-Sign Detail Recorded Client Recorded Date Recorded By Document 11/17/17 08:34 MW [id number] 11/17/17 08:45 MW 11/17/17 08:34 Wound Center Nurse 2 [Procedure/Treatment] #6 L Christensen -Time 08:36 -Correct Patient Yes -Correct Side, Site, Position Yes -Correct Procedure Yes -Procedure Performed Yes -Type of Procedure Debridement -Clinical Debridement Subcutaneous -Post Debridement Size (cm) - Length 9.4 -Post Debridement Size (cm) - Width 3.4 -Post Debridement Size (cm) - Depth 0.3 -Total Square Cm 31.96 -Wound/Ulcer Outcome Not Healed -Foul Odor after Cleansing No -Type of bioengineered Tissue EPIFIX -Expiration Date 08/18/22 -Product Lot Number [id number] -Percent Used 100 -Saline Lot Number [id number] -Bleeding Controlled with Pressure -Treatment Response Procedure Tolerated Well #5 LLE Post -Time 08:36 -Correct Patient Yes -Correct Side, Site, Position Yes -Correct Procedure Yes -Procedure Performed Yes -Type of Procedure Debridement -Clinical Debridement Subcutaneous -Post Debridement Size (cm) - Length 8.5 -Post Debridement Size (cm) - Width 1.4 -Post Debridement Size (cm) - Depth 0.2 -Total Square Cm 11.90 -Wound/Ulcer Outcome Not Healed -Ulcer Cleansing Rinsed/ Irrigated with Saline -Foul Odor after Cleansing No -Bioengineered Tissue No -Type of bioengineered Tissue EPIFIX -Bleeding Controlled with Pressure -Treatment Response Procedure Tolerated Well [See Physician Procedure note for Specifics] Pain Scale: 0-10 Numeric [Pain] -Is Patient Pain Free? Yes Musculoskeletal: No Tenderness to Palpation of Joints or Extremities Lymphatic: No Cervical, Supraclavicular, or Inguinal Adenopathy Neurological: Cranial nerves II-XII grossly intact, Neuro grossly intact Psych/Mental Status: Normal Affect, Appropriate Debridement Note Post-Debridement Measurements/Treatment WC - Nurse 2 - General Ulcer CM Notes Start: 11/17/17 08:14 Freq: Status: Active Protocol: Activity Type Activity Date Activity User E-Sign Co-Sign Detail Recorded Client Recorded Date Recorded By Document 11/17/17 08:34 MW [id number] 11/17/17 08:45 MW 11/17/17 08:34 Wound Center Nurse 2 #6 L Christensen -Time 08:36 -Correct Patient Yes -Correct Side, Site, Position Yes -Correct Procedure Yes -Procedure Performed Yes -Type of Procedure Debridement -Clinical Debridement Subcutaneous -Post Debridement Size (cm) - Length 9.4 -Post Debridement Size (cm) - Width 3.4 -Post Debridement Size (cm) - Depth 0.3 -Total Square Cm 31.96 -Wound/Ulcer Outcome Not Healed -Foul Odor after Cleansing No -Type of bioengineered Tissue EPIFIX -Expiration Date 08/18/22 -Product Lot Number [id number] -Percent Used 100 -Saline Lot Number [id number] -Bleeding Controlled with Pressure -Treatment Response Procedure Tolerated Well #5 LLE Post -Time 08:36 -Correct Patient Yes -Correct Side, Site, Position Yes -Correct Procedure Yes -Procedure Performed Yes -Type of Procedure Debridement -Clinical Debridement Subcutaneous -Post Debridement Size (cm) - Length 8.5 -Post Debridement Size (cm) - Width 1.4 -Post Debridement Size (cm) - Depth 0.2 -Total Square Cm 11.90 -Wound/Ulcer Outcome Not Healed -Ulcer Cleansing Rinsed/ Irrigated with Saline -Foul Odor after Cleansing No -Bioengineered Tissue No -Type of bioengineered Tissue EPIFIX -Bleeding Controlled with Pressure -Treatment Response Procedure Tolerated Well Pain Scale: 0-10 Numeric Is Patient Pain Free? Yes Wound debrided: Lower anterior ulcer Type of Debridement: Excisional debridement Anesthesia Used: 5% Lidocaine Gel Depth: in the subcutaneous layer Instrument Used: 7mm curette Tissue Removed: slough and fibrin Severity: Limited To Skin Breakdown Amount of bleeding with debridement: Mild Bleeding Controlled with: Compression and gauze Patient tolerated procedure well - Additional Wound Wound debrided: Posterior left lower leg Type of Debridement: Excisional debridement Anesthesia Used: 5% Lidocaine Gel Depth: Down to and including healthy tissue, in the subcutaneous layer Percentage of wound debrided: 100 Instrument Used: 7mm curette Tissue Removed: Slough and fibrin Severity: Limited To Skin Breakdown Amount of bleeding with debridement: Mild Bleeding Controlled with: Compression and gauze Patient tolerated procedure: Patient tolerated procedure well Assessment/Plan Active Problems Infected open wound (Acute) Chronic atrial fibrillation (Chronic) Bilateral edema of lower extremity (Chronic) Neuropathic pain, leg, bilateral (Chronic) Nonhealing ulcer of left lower leg (Acute) Assessment: bilateral lower leg edema. Cellulitis,. Bilateral lower leg edema. Left lower leg ulcer-. Infection left lower leg ulcer. 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 Atrial fib to onset. Peripheral vascular disease Plan: Wash around bilateral lower leg ulcers. Left lower anterior epi f ix #4. and posterior ulcers apply promogran moistened Adaptic gauze and Sanjuana QOD. Continue the double layer Tubigrip to bilateral lower legs. Follow-up in 2week. Nursing notes reviewed
[2017-12-01 08:20] VITALS: BP 122/60; PULSE 107; RESP 20; TEMP 36.7; BMI 65.4
--- NOTE | 2017-12-01 09:46 | PCM.WC.PN ---
(1) Infected open wound Status: Acute Current Visit: Yes Code(s): T14.8XXA - Other injury of unspecified body region, initial encounter; L08.9 - Local infection of the skin and subcutaneous tissue, unspecified (2) Nonhealing ulcer of left lower leg Status: Acute Current Visit: Yes Code(s): L97.829 - Non-pressure chronic ulcer of other part of left lower leg with unspecified severity (3) Bilateral edema of lower extremity Status: Chronic Current Visit: Yes Code(s): R60.0 - Localized edema (4) Chronic atrial fibrillation Status: Chronic Current Visit: Yes Code(s): I48.2 - Chronic atrial fibrillation (5) Neuropathic pain, leg, bilateral Status: Chronic Current Visit: Yes Code(s): G57.91 - Unspecified mononeuropathy of right lower limb; G57.92 - Unspecified mononeuropathy of left lower limb Type of Wound Date of Service: 12/01/17 Chief Complaint: Follow-up on bilateral lower leg ulcers History of Wound: 77-year-old white male who had surgery with Dr. 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 Apparently unbeknown to him he developed some open areas on the left lower leg and neglected them. Now he has very large deep ulcers with necrotic tissue and smell on the left lower leg anterior and posterior leg. Patient has been using his Aquacel silver on it. And not wearing his stockings or compression. There is a lot of edema and redness and cellulitis. Progress of Wound: The left anterior and posterior open ulcers still has a lot of yellow slough but easily removed and improved. Epi fix #5 applied to the ant ray using 100 %.. Both ulcers today are slightly improved. Swelling is much improved also wearing a double layer Tubigrip need more compression for healing, going to add brandon wrap overtop the double layer tubigrip. His history of coxsackie a virus he still goes in a congestive heart failure he is BNP was over 500 his pre-albumin was 22 his regular albumin his blood was within normal limits shows some slight anemia on labs suggested he take iron. 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 - Physical Exam Vital Signs Temp Pulse Resp BP 98.0 F 107 H 20 H 122/60 H 12/01/17 08:20 12/01/17 08:20 12/01/17 08:20 12/01/17 08:20 General: Oriented x3, Cooperative, Well developed HEENT: Atraumatic, PERRLA Oral: Moist Mucosa Neck: Supple, No JVD Lungs: Clear to auscultation, Normal air movement Cardiovascular: Regular rate, Regular Rhythm Abdomen: Bowel Sounds Present, Soft, Non Tender, No Hepato-splenomegaly Extremities: No clubbing, Edema Skin: Ulcer/ Wound - Left anterior posterior ray ulcers Wound Measurements and Assessment WC - Nurse 1 - General Ulcer Measurement Start: 11/17/17 08:14 Freq: Status: Active Protocol: Activity Type Activity Date Activity User E-Sign Co-Sign Detail Recorded Client Recorded Date Recorded By Document 12/01/17 08:20 LORA [id number] 12/01/17 08:43 JS 12/01/17 08:20 Wound Center Nurse 1 [Ulcer Assessment] #6 L Ray -Combined with other wound No -Current Size (cm) - Length 9.8 -Current Size (cm) - Width 5.0 -Current Size (cm) - Depth 0.3 -Total Square Cm 49.00 -Date of Last Picture (Recall this 12/01/17 field) -Photo Taken Yes -Epithelialization None Present -Tunneling No -Undermining/Tunneling No -Circular Undermining No -Classification - Thickness Full Thickness without Exposed Support Structure -Exudate Amt Medium (34-66%) -Exudate Type Yellow/Green -Wound Margin Distinct, Outline Attached -Granulation Amt Small (1-33%) -Granulation Quality Pale Red -Slough/Fibrin Yes -Necrosis Amt None Present (0 %) -Necrotic Tissue Type Adherent Slough -Structure Exposed Fascia Fat Layer Exposed -Texture (Cyndy-wound Skin Appearance) No Abnormality -Moisture (Cyndy-wound Skin Appearance No Abnormality ) -Color (Cyndy-wound Skin Appearance) No Abnormality -Temperature (Cyndy-wound Skin No Abnormality Appearance) (Pt Warm) -Tenderness on Palpation (Cyndy-wound Yes Skin Appearance) -Ulcer Cleansing Rinsed/ Irrigated with Saline -Foul Odor after Cleansing No -Anesthetic Used 5% Lidocaine Gel #5 LLE Post -Combined with other wound No -Current Size (cm) - Length 9.3 -Current Size (cm) - Width 2.2 -Current Size (cm) - Depth 0.2 -Total Square Cm 20.46 -Date of Last Picture (Recall this 12/01/17 field) -Photo Taken Yes -Epithelialization None Present -Tunneling No -Undermining/Tunneling No -Circular Undermining No -Classification - Thickness Full Thickness without Exposed Support Structure -Exudate Amt Medium (34-66%) -Exudate Type Yellow/Green -Wound Margin Distinct, Outline Attached -Granulation Amt Small (1-33%) -Granulation Quality Pale Red -Slough/Fibrin Yes -Necrosis Amt None Present (0 %) -Necrotic Tissue Type Adherent Slough -Structure Exposed Fascia Fat Layer Exposed -Texture (Cyndy-wound Skin Appearance) No Abnormality -Moisture (Cyndy-wound Skin Appearance No Abnormality ) -Color (Cyndy-wound Skin Appearance) No Abnormality -Temperature (Cyndy-wound Skin No Abnormality Appearance) (Pt Warm) -Tenderness on Palpation (Cyndy-wound Yes Skin Appearance) -Ulcer Cleansing Rinsed/ Irrigated with Saline -Foul Odor after Cleansing No -Anesthetic Used 5% Lidocaine Gel [Edema Assessment] -Lower Limb Edema Present Yes -Point of measurement (cm from the 38.5 medial instep) -Point of Measurement (cm from the 27.5 medial instep) -Left Calf (cm) 45.0 -Left Ankle (cm) 27.5 WC - Nurse 2 - General Ulcer CM Notes Start: 11/17/17 08:14 Freq: Status: Active Protocol: Activity Type Activity Date Activity User E-Sign Co-Sign Detail Recorded Client Recorded Date Recorded By Document 12/01/17 09:05 MW [id number] 12/01/17 09:16 MW 12/01/17 09:05 Wound Center Nurse 2 [Procedure/Treatment] #6 L Ray -Time 09:05 -Correct Patient Yes -Correct Side, Site, Position Yes -Correct Procedure Yes -Procedure Performed Yes -Type of Procedure Debridement -Clinical Debridement Subcutaneous -Post Debridement Size (cm) - Length 9.3 -Post Debridement Size (cm) - Width 3.4 -Post Debridement Size (cm) - Depth 0.3 -Total Square Cm 31.62 -Wound/Ulcer Outcome Not Healed -Ulcer Cleansing Rinsed/ Irrigated with Saline -Foul Odor after Cleansing No -Bioengineered Tissue No -Type of bioengineered Tissue EPIFIX -Expiration Date 09/18/22 -Product Lot Number [id number] -Percent Used 100 -Saline Lot Number [id number] -Bleeding Controlled with Pressure -Treatment Response Procedure Tolerated Well #5 LLE Post -Time 09:05 -Correct Patient Yes -Correct Side, Site, Position Yes -Correct Procedure Yes -Procedure Performed Yes -Type of Procedure Debridement -Clinical Debridement Subcutaneous -Post Debridement Size (cm) - Length 8.1 -Post Debridement Size (cm) - Width 1.2 -Post Debridement Size (cm) - Depth 0.2 -Total Square Cm 9.72 -Wound/Ulcer Outcome Not Healed -Ulcer Cleansing Rinsed/ Irrigated with Saline -Foul Odor after Cleansing No -Bioengineered Tissue No -Bleeding Controlled with Pressure -Treatment Response Procedure Tolerated Well [See Physician Procedure note for Specifics] Pain Scale: 0-10 Numeric [Pain] -Is Patient Pain Free? Yes Musculoskeletal: No Tenderness to Palpation of Joints or Extremities Lymphatic: No Cervical, Supraclavicular, or Inguinal Adenopathy Neurological: Cranial nerves II-XII grossly intact, Neuro grossly intact Psych/Mental Status: Normal Affect, Appropriate, Alert and oriented to time, place, person, mood and affect Debridement Note Post-Debridement Measurements/Treatment WC - Nurse 2 - General Ulcer CM Notes Start: 11/17/17 08:14 Freq: Status: Active Protocol: Activity Type Activity Date Activity User E-Sign Co-Sign Detail Recorded Client Recorded Date Recorded By Document 11/17/17 08:34 MW [id number] 11/17/17 08:45 MW Document 12/01/17 09:05 MW [id number] 12/01/17 09:16 MW 11/17/17 12/01/17 08:34 09:05 Wound Center Nurse 2 #6 L Ray -Time 08:36 09:05 -Correct Patient Yes Yes -Correct Side, Site, Position Yes Yes -Correct Procedure Yes Yes -Procedure Performed Yes Yes -Type of Procedure Debridement Debridement -Clinical Debridement Subcutaneous Subcutaneous -Post Debridement Size (cm) - Length 9.4 9.3 -Post Debridement Size (cm) - Width 3.4 3.4 -Post Debridement Size (cm) - Depth 0.3 0.3 -Total Square Cm 31.96 31.62 -Wound/Ulcer Outcome Not Healed Not Healed -Ulcer Cleansing Rinsed/ Irrigated with Saline -Foul Odor after Cleansing No No -Bioengineered Tissue No -Type of bioengineered Tissue EPIFIX EPIFIX -Expiration Date 08/18/22 09/18/22 -Product Lot Number [id number] -Percent Used 100 100 -Saline Lot Number [id number] -Bleeding Controlled with Pressure Pressure -Treatment Response Procedure Procedure Tolerated Well Tolerated Well #5 LLE Post -Time 08:36 09:05 -Correct Patient Yes Yes -Correct Side, Site, Position Yes Yes -Correct Procedure Yes Yes -Procedure Performed Yes Yes -Type of Procedure Debridement Debridement -Clinical Debridement Subcutaneous Subcutaneous -Post Debridement Size (cm) - Length 8.5 8.1 -Post Debridement Size (cm) - Width 1.4 1.2 -Post Debridement Size (cm) - Depth 0.2 0.2 -Total Square Cm 11.90 9.72 -Wound/Ulcer Outcome Not Healed Not Healed -Ulcer Cleansing Rinsed/ Rinsed/ Irrigated with Irrigated with Saline Saline -Foul Odor after Cleansing No No -Bioengineered Tissue No No -Type of bioengineered Tissue EPIFIX -Bleeding Controlled with Pressure Pressure -Treatment Response Procedure Procedure Tolerated Well Tolerated Well Pain Scale: 0-10 Numeric Is Patient Pain Free? Yes Yes Wound debrided: Posterior ray ulcer Laterality: Left Type of Debridement: Excisional debridement Anesthesia Used: 5% Lidocaine Gel Depth: Down to and including healthy tissue, in the subcutaneous layer Percentage of wound debrided: 100 Instrument Used: 7mm curette Tissue Removed: Slough and fibrin Severity: Limited To Skin Breakdown Amount of bleeding with debridement: Mild Bleeding Controlled with: Compression and gauze Patient tolerated procedure well - Additional Wound Wound debrided: Left anterior lower ray Laterality: Left Type of Debridement: Excisional debridement Anesthesia Used: 5% Lidocaine Gel Depth: Down to and including healthy tissue, in the subcutaneous layer Percentage of wound debrided: 100 Instrument Used: 7mm curette Tissue Removed: Slough and fibrin Severity: Limited To Skin Breakdown Bleeding Controlled with: Compression and gauze Patient tolerated procedure: Patient tolerated procedure well Assessment/Plan Active Problems Infected open wound (Acute) Chronic atrial fibrillation (Chronic) Bilateral edema of lower extremity (Chronic) Neuropathic pain, leg, bilateral (Chronic) Nonhealing ulcer of left lower leg (Acute) Assessment: bilateral lower leg edema. Cellulitis,. Bilateral lower leg edema. Left lower leg ulcer-. Infection left lower leg ulcer. 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 Atrial fib to onset. Peripheral vascular disease Plan: Wash around bilateral lower leg ulcers. Left lower anterior epi f ix #5. and posterior ulcers apply promogran moistened Adaptic gauze and Sanjuana QOD. Continue the double layer Tubigrip to bilateral lower legs with Brandon wrap over top. Follow-up in 1 week. Nursing notes reviewed
--- NOTE | 2017-12-01 09:52 | PN.PCM_ITS ---
(1) Infected open wound Status: Acute Current Visit: Yes Code(s): T14.8XXA - Other injury of unspecified body region, initial encounter; L08.9 - Local infection of the skin and subcutaneous tissue, unspecified (2) Nonhealing ulcer of left lower leg Status: Acute Current Visit: Yes Code(s): L97.829 - Non-pressure chronic ulcer of other part of left lower leg with unspecified severity (3) Bilateral edema of lower extremity Status: Chronic Current Visit: Yes Code(s): R60.0 - Localized edema (4) Chronic atrial fibrillation Status: Chronic Current Visit: Yes Code(s): I48.2 - Chronic atrial fibrillation (5) Neuropathic pain, leg, bilateral Status: Chronic Current Visit: Yes Code(s): G57.91 - Unspecified mononeuropathy of right lower limb; G57.92 - Unspecified mononeuropathy of left lower limb Type of Wound Date of Service: 12/01/17 Chief Complaint: Follow-up on bilateral lower leg ulcers History of Wound: 77-year-old white male who had surgery with Dr. 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 Apparently unbeknown to him he developed some open areas on the left lower leg and neglected them. Now he has very large deep ulcers with necrotic tissue and smell on the left lower leg anterior and posterior leg. Patient has been using his Aquacel silver on it. And not wearing his stockings or compression. There is a lot of edema and redness and cellulitis. Progress of Wound: The left anterior and posterior open ulcers still has a lot of yellow slough but easily removed and improved. Epi fix #5 applied to the ant ray using 100 %.. Both ulcers today are slightly improved. Swelling is much improved also wearing a double layer Tubigrip need more compression for healing, going to add brandon wrap overtop the double layer tubigrip. His history of coxsackie a virus he still goes in a congestive heart failure he is BNP was over 500 his pre-albumin was 22 his regular albumin his blood was within normal limits shows some slight anemia on labs suggested he take iron. 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 - Physical Exam Vital Signs Temp Pulse Resp BP 98.0 F 107 H 20 H 122/60 H 12/01/17 08:20 12/01/17 08:20 12/01/17 08:20 12/01/17 08:20 General: Oriented x3, Cooperative, Well developed HEENT: Atraumatic, PERRLA Oral: Moist Mucosa Neck: Supple, No JVD Lungs: Clear to auscultation, Normal air movement Cardiovascular: Regular rate, Regular Rhythm Abdomen: Bowel Sounds Present, Soft, Non Tender, No Hepato-splenomegaly Extremities: No clubbing, Edema Skin: Ulcer/ Wound - Left anterior posterior ray ulcers Wound Measurements and Assessment WC - Nurse 1 - General Ulcer Measurement Start: 11/17/17 08:14 Freq: Status: Active Protocol: Activity Type Activity Date Activity User E-Sign Co-Sign Detail Recorded Client Recorded Date Recorded By Document 12/01/17 08:20 LORA [id number] 12/01/17 08:43 JS 12/01/17 08:20 Wound Center Nurse 1 [Ulcer Assessment] #6 L Ray -Combined with other wound No -Current Size (cm) - Length 9.8 -Current Size (cm) - Width 5.0 -Current Size (cm) - Depth 0.3 -Total Square Cm 49.00 -Date of Last Picture (Recall this 12/01/17 field) -Photo Taken Yes -Epithelialization None Present -Tunneling No -Undermining/Tunneling No -Circular Undermining No -Classification - Thickness Full Thickness without Exposed Support Structure -Exudate Amt Medium (34-66%) -Exudate Type Yellow/Green -Wound Margin Distinct, Outline Attached -Granulation Amt Small (1-33%) -Granulation Quality Pale Red -Slough/Fibrin Yes -Necrosis Amt None Present (0 %) -Necrotic Tissue Type Adherent Slough -Structure Exposed Fascia Fat Layer Exposed -Texture (Cyndy-wound Skin Appearance) No Abnormality -Moisture (Cyndy-wound Skin Appearance No Abnormality ) -Color (Cyndy-wound Skin Appearance) No Abnormality -Temperature (Cyndy-wound Skin No Abnormality Appearance) (Pt Warm) -Tenderness on Palpation (Cyndy-wound Yes Skin Appearance) -Ulcer Cleansing Rinsed/ Irrigated with Saline -Foul Odor after Cleansing No -Anesthetic Used 5% Lidocaine Gel #5 LLE Post -Combined with other wound No -Current Size (cm) - Length 9.3 -Current Size (cm) - Width 2.2 -Current Size (cm) - Depth 0.2 -Total Square Cm 20.46 -Date of Last Picture (Recall this 12/01/17 field) -Photo Taken Yes -Epithelialization None Present -Tunneling No -Undermining/Tunneling No -Circular Undermining No -Classification - Thickness Full Thickness without Exposed Support Structure -Exudate Amt Medium (34-66%) -Exudate Type Yellow/Green -Wound Margin Distinct, Outline Attached -Granulation Amt Small (1-33%) -Granulation Quality Pale Red -Slough/Fibrin Yes -Necrosis Amt None Present (0 %) -Necrotic Tissue Type Adherent Slough -Structure Exposed Fascia Fat Layer Exposed -Texture (Cyndy-wound Skin Appearance) No Abnormality -Moisture (Cyndy-wound Skin Appearance No Abnormality ) -Color (Cyndy-wound Skin Appearance) No Abnormality -Temperature (Cyndy-wound Skin No Abnormality Appearance) (Pt Warm) -Tenderness on Palpation (Cyndy-wound Yes Skin Appearance) -Ulcer Cleansing Rinsed/ Irrigated with Saline -Foul Odor after Cleansing No -Anesthetic Used 5% Lidocaine Gel [Edema Assessment] -Lower Limb Edema Present Yes -Point of measurement (cm from the 38.5 medial instep) -Point of Measurement (cm from the 27.5 medial instep) -Left Calf (cm) 45.0 -Left Ankle (cm) 27.5 WC - Nurse 2 - General Ulcer CM Notes Start: 11/17/17 08:14 Freq: Status: Active Protocol: Activity Type Activity Date Activity User E-Sign Co-Sign Detail Recorded Client Recorded Date Recorded By Document 12/01/17 09:05 MW [id number] 12/01/17 09:16 MW 12/01/17 09:05 Wound Center Nurse 2 [Procedure/Treatment] #6 L Ray -Time 09:05 -Correct Patient Yes -Correct Side, Site, Position Yes -Correct Procedure Yes -Procedure Performed Yes -Type of Procedure Debridement -Clinical Debridement Subcutaneous -Post Debridement Size (cm) - Length 9.3 -Post Debridement Size (cm) - Width 3.4 -Post Debridement Size (cm) - Depth 0.3 -Total Square Cm 31.62 -Wound/Ulcer Outcome Not Healed -Ulcer Cleansing Rinsed/ Irrigated with Saline -Foul Odor after Cleansing No -Bioengineered Tissue No -Type of bioengineered Tissue EPIFIX -Expiration Date 09/18/22 -Product Lot Number [id number] -Percent Used 100 -Saline Lot Number [id number] -Bleeding Controlled with Pressure -Treatment Response Procedure Tolerated Well #5 LLE Post -Time 09:05 -Correct Patient Yes -Correct Side, Site, Position Yes -Correct Procedure Yes -Procedure Performed Yes -Type of Procedure Debridement -Clinical Debridement Subcutaneous -Post Debridement Size (cm) - Length 8.1 -Post Debridement Size (cm) - Width 1.2 -Post Debridement Size (cm) - Depth 0.2 -Total Square Cm 9.72 -Wound/Ulcer Outcome Not Healed -Ulcer Cleansing Rinsed/ Irrigated with Saline -Foul Odor after Cleansing No -Bioengineered Tissue No -Bleeding Controlled with Pressure -Treatment Response Procedure Tolerated Well [See Physician Procedure note for Specifics] Pain Scale: 0-10 Numeric [Pain] -Is Patient Pain Free? Yes Musculoskeletal: No Tenderness to Palpation of Joints or Extremities Lymphatic: No Cervical, Supraclavicular, or Inguinal Adenopathy Neurological: Cranial nerves II-XII grossly intact, Neuro grossly intact Psych/Mental Status: Normal Affect, Appropriate, Alert and oriented to time, place, person, mood and affect Debridement Note Post-Debridement Measurements/Treatment WC - Nurse 2 - General Ulcer CM Notes Start: 11/17/17 08:14 Freq: Status: Active Protocol: Activity Type Activity Date Activity User E-Sign Co-Sign Detail Recorded Client Recorded Date Recorded By Document 11/17/17 08:34 MW [id number] 11/17/17 08:45 MW Document 12/01/17 09:05 MW [id number] 12/01/17 09:16 MW 11/17/17 12/01/17 08:34 09:05 Wound Center Nurse 2 #6 L Ray -Time 08:36 09:05 -Correct Patient Yes Yes -Correct Side, Site, Position Yes Yes -Correct Procedure Yes Yes -Procedure Performed Yes Yes -Type of Procedure Debridement Debridement -Clinical Debridement Subcutaneous Subcutaneous -Post Debridement Size (cm) - Length 9.4 9.3 -Post Debridement Size (cm) - Width 3.4 3.4 -Post Debridement Size (cm) - Depth 0.3 0.3 -Total Square Cm 31.96 31.62 -Wound/Ulcer Outcome Not Healed Not Healed -Ulcer Cleansing Rinsed/ Irrigated with Saline -Foul Odor after Cleansing No No -Bioengineered Tissue No -Type of bioengineered Tissue EPIFIX EPIFIX -Expiration Date 08/18/22 09/18/22 -Product Lot Number [id number] -Percent Used 100 100 -Saline Lot Number [id number] -Bleeding Controlled with Pressure Pressure -Treatment Response Procedure Procedure Tolerated Well Tolerated Well #5 LLE Post -Time 08:36 09:05 -Correct Patient Yes Yes -Correct Side, Site, Position Yes Yes -Correct Procedure Yes Yes -Procedure Performed Yes Yes -Type of Procedure Debridement Debridement -Clinical Debridement Subcutaneous Subcutaneous -Post Debridement Size (cm) - Length 8.5 8.1 -Post Debridement Size (cm) - Width 1.4 1.2 -Post Debridement Size (cm) - Depth 0.2 0.2 -Total Square Cm 11.90 9.72 -Wound/Ulcer Outcome Not Healed Not Healed -Ulcer Cleansing Rinsed/ Rinsed/ Irrigated with Irrigated with Saline Saline -Foul Odor after Cleansing No No -Bioengineered Tissue No No -Type of bioengineered Tissue EPIFIX -Bleeding Controlled with Pressure Pressure -Treatment Response Procedure Procedure Tolerated Well Tolerated Well Pain Scale: 0-10 Numeric Is Patient Pain Free? Yes Yes Wound debrided: Posterior ray ulcer Laterality: Left Type of Debridement: Excisional debridement Anesthesia Used: 5% Lidocaine Gel Depth: Down to and including healthy tissue, in the subcutaneous layer Percentage of wound debrided: 100 Instrument Used: 7mm curette Tissue Removed: Slough and fibrin Severity: Limited To Skin Breakdown Amount of bleeding with debridement: Mild Bleeding Controlled with: Compression and gauze Patient tolerated procedure well - Additional Wound Wound debrided: Left anterior lower ray Laterality: Left Type of Debridement: Excisional debridement Anesthesia Used: 5% Lidocaine Gel Depth: Down to and including healthy tissue, in the subcutaneous layer Percentage of wound debrided: 100 Instrument Used: 7mm curette Tissue Removed: Slough and fibrin Severity: Limited To Skin Breakdown Bleeding Controlled with: Compression and gauze Patient tolerated procedure: Patient tolerated procedure well Assessment/Plan Active Problems Infected open wound (Acute) Chronic atrial fibrillation (Chronic) Bilateral edema of lower extremity (Chronic) Neuropathic pain, leg, bilateral (Chronic) Nonhealing ulcer of left lower leg (Acute) Assessment: bilateral lower leg edema. Cellulitis,. Bilateral lower leg edema. Left lower leg ulcer-. Infection left lower leg ulcer. 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 Atrial fib to onset. Peripheral vascular disease Plan: Wash around bilateral lower leg ulcers. Left lower anterior epi f ix #5. and posterior ulcers apply promogran moistened Adaptic gauze and Sanjuana QOD. Continue the double layer Tubigrip to bilateral lower legs with Brandon wrap over top. Follow-up in 1 week. Nursing notes reviewed
[2017-12-08 08:37] VITALS: BP 128/80; RESP 20; TEMP 36.6; BMI 65.4
--- NOTE | 2017-12-08 09:23 | PCM.WC.PN ---
(1) Infected open wound Status: Acute Current Visit: Yes Code(s): T14.8XXA - Other injury of unspecified body region, initial encounter; L08.9 - Local infection of the skin and subcutaneous tissue, unspecified (2) Nonhealing ulcer of left lower leg Status: Acute Current Visit: Yes Code(s): L97.829 - Non-pressure chronic ulcer of other part of left lower leg with unspecified severity (3) Bilateral edema of lower extremity Status: Chronic Current Visit: Yes Code(s): R60.0 - Localized edema (4) Chronic atrial fibrillation Status: Chronic Current Visit: Yes Code(s): I48.2 - Chronic atrial fibrillation (5) Neuropathic pain, leg, bilateral Status: Chronic Current Visit: Yes Code(s): G57.91 - Unspecified mononeuropathy of right lower limb; G57.92 - Unspecified mononeuropathy of left lower limb Type of Wound Date of Service: 12/08/17 Chief Complaint: Follow-up on bilateral lower leg ulcers History of Wound: 77-year-old white male who had surgery with Dr. 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 Apparently unbeknown to him he developed some open areas on the left lower leg and neglected them. Now he has very large deep ulcers with necrotic tissue and smell on the left lower leg anterior and posterior leg. Patient has been using his Aquacel silver on it. And not wearing his stockings or compression. There is a lot of edema and redness and cellulitis. Progress of Wound: The left anterior and posterior open ulcers have little slough in them. Specially the posterior leg very beefy and a lot of new epithelial excision of the skin using Promogran. The anterior has been slower but still developing a lot of epithelial tissue also were going to try to hold on the epi-fix this week and use Promogran in the anterior leg also. Swelling is improved also wearing a double layer Tubigrip and Brandon wrap over top for more compression His history of coxsackie a virus he still goes in a congestive heart failure he is BNP was over 500 his pre-albumin was 22 his regular albumin his blood was within normal limits shows some slight anemia on labs suggested he take iron. 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 Forced elevating legs eating more meat to improve his healing. - Physical Exam Vital Signs Temp Pulse Resp BP 97.8 F 107 H 20 H 128/80 H 12/08/17 08:37 12/01/17 08:20 12/08/17 08:37 12/08/17 08:37 General: Oriented x3, Cooperative, Well developed HEENT: Atraumatic, PERRLA Oral: Moist Mucosa Neck: Supple, No JVD Lungs: Clear to auscultation, Normal air movement Cardiovascular: Regular rate, Regular Rhythm Abdomen: Bowel Sounds Present, Soft, Non Tender, No Hepato-splenomegaly Extremities: No clubbing, Edema Skin: Ulcer/ Wound - Left lower leg anterior posterior ray Wound Measurements and Assessment WC - Nurse 1 - General Ulcer Measurement Start: 11/17/17 08:14 Freq: Status: Active Protocol: Activity Type Activity Date Activity User E-Sign Co-Sign Detail Recorded Client Recorded Date Recorded By Document 12/08/17 08:37 LORA [id number] 12/08/17 08:53 LORA 12/08/17 08:37 Wound Center Nurse 1 [Ulcer Assessment] #6 L Ray -Combined with other wound No -Current Size (cm) - Length 9.4 -Current Size (cm) - Width 4.9 -Current Size (cm) - Depth 0.4 -Total Square Cm 46.06 -Date of Last Picture (Recall this 12/01/17 field) -Photo Taken No -Epithelialization None Present -Tunneling No -Undermining/Tunneling No -Circular Undermining No -Classification - Thickness Full Thickness without Exposed Support Structure -Exudate Amt Medium (34-66%) -Exudate Type Serosanguineous -Wound Margin Distinct, Outline Attached -Granulation Amt Medium (34-66%) -Granulation Quality Pale Red -Slough/Fibrin Yes -Necrosis Amt Small (1-33%) -Necrotic Tissue Type Adherent Slough -Structure Exposed Fascia Fat Layer Exposed -Texture (Cyndy-wound Skin Appearance) Localized Edema -Moisture (Cyndy-wound Skin Appearance No Abnormality ) -Color (Cyndy-wound Skin Appearance) Hemosiderin Staining -Temperature (Cyndy-wound Skin No Abnormality Appearance) (Pt Warm) -Tenderness on Palpation (Cyndy-wound Yes Skin Appearance) -Ulcer Cleansing Rinsed/ Irrigated with Saline -Foul Odor after Cleansing No -Anesthetic Used 5% Lidocaine Gel #5 LLE Post -Combined with other wound No -Current Size (cm) - Length 8.6 -Current Size (cm) - Width 1.5 -Current Size (cm) - Depth 0.3 -Total Square Cm 12.90 -Date of Last Picture (Recall this 12/01/17 field) -Photo Taken No -Epithelialization None Present -Tunneling No -Undermining/Tunneling No -Circular Undermining No -Classification - Thickness Full Thickness without Exposed Support Structure -Exudate Amt Medium (34-66%) -Exudate Type Serosanguineous -Wound Margin Distinct, Outline Attached -Granulation Amt Small (1-33%) -Granulation Quality Pale Red -Slough/Fibrin Yes -Necrosis Amt None Present (0 %) -Necrotic Tissue Type Adherent Slough -Structure Exposed Fascia Fat Layer Exposed -Texture (Cyndy-wound Skin Appearance) No Abnormality Localized Edema -Moisture (Cyndy-wound Skin Appearance Dry/Scaly ) -Color (Cyndy-wound Skin Appearance) Hemosiderin Staining -Temperature (Cyndy-wound Skin No Abnormality Appearance) (Pt Warm) -Tenderness on Palpation (Cyndy-wound Yes Skin Appearance) -Ulcer Cleansing Rinsed/ Irrigated with Saline -Foul Odor after Cleansing No -Anesthetic Used 5% Lidocaine Gel [Edema Assessment] -Lower Limb Edema Present Yes -Left Calf (cm) 46.0 -Left Ankle (cm) 28.0 WC - Nurse 2 - General Ulcer CM Notes Start: 11/17/17 08:14 Freq: Status: Active Protocol: Activity Type Activity Date Activity User E-Sign Co-Sign Detail Recorded Client Recorded Date Recorded By Document 12/08/17 09:09 MW [id number] 12/08/17 09:18 MW 12/08/17 09:09 Wound Center Nurse 2 [Procedure/Treatment] #6 L Ray -Time 09:10 -Correct Patient Yes -Correct Side, Site, Position Yes -Correct Procedure Yes -Procedure Performed Yes -Type of Procedure Debridement -Clinical Debridement Subcutaneous -Post Debridement Size (cm) - Length 9.2 -Post Debridement Size (cm) - Width 3.1 -Post Debridement Size (cm) - Depth 0.3 -Total Square Cm 28.52 -Wound/Ulcer Outcome Not Healed -Ulcer Cleansing Rinsed/ Irrigated with Saline -Foul Odor after Cleansing No -Type of bioengineered Tissue EPIFIX -Bleeding Controlled with Pressure -Treatment Response Procedure Tolerated Well #5 LLE Post -Time 09:10 -Correct Patient Yes -Correct Side, Site, Position Yes -Correct Procedure Yes -Procedure Performed Yes -Type of Procedure Debridement -Clinical Debridement Subcutaneous -Post Debridement Size (cm) - Length 8.7 -Post Debridement Size (cm) - Width 1.4 -Post Debridement Size (cm) - Depth 0.2 -Total Square Cm 12.18 -Wound/Ulcer Outcome Not Healed -Ulcer Cleansing Rinsed/ Irrigated with Saline -Foul Odor after Cleansing No -Bleeding Controlled with Pressure -Treatment Response Procedure Tolerated Well [See Physician Procedure note for Specifics] Pain Scale: 0-10 Numeric [Pain] -Is Patient Pain Free? Yes Musculoskeletal: No Tenderness to Palpation of Joints or Extremities Lymphatic: No Cervical, Supraclavicular, or Inguinal Adenopathy Neurological: Cranial nerves II-XII grossly intact, Neuro grossly intact Psych/Mental Status: Normal Affect, Appropriate, Alert and oriented to time, place, person, mood and affect Debridement Note Post-Debridement Measurements/Treatment WC - Nurse 2 - General Ulcer CM Notes Start: 11/17/17 08:14 Freq: Status: Active Protocol: Activity Type Activity Date Activity User E-Sign Co-Sign Detail Recorded Client Recorded Date Recorded By Document 11/17/17 08:34 MW [id number] 11/17/17 08:45 MW Document 12/01/17 09:05 MW [id number] 12/01/17 09:16 MW Document 12/08/17 09:09 MW [id number] 12/08/17 09:18 MW 11/17/17 12/01/17 12/08/17 08:34 09:05 09:09 Wound Center Nurse 2 #6 L Ray -Time 08:36 09:05 09:10 -Correct Patient Yes Yes Yes -Correct Side, Site, Position Yes Yes Yes -Correct Procedure Yes Yes Yes -Procedure Performed Yes Yes Yes -Type of Procedure Debridement Debridement Debridement -Clinical Debridement Subcutaneous Subcutaneous Subcutaneous -Post Debridement Size (cm) - Length 9.4 9.3 9.2 -Post Debridement Size (cm) - Width 3.4 3.4 3.1 -Post Debridement Size (cm) - Depth 0.3 0.3 0.3 -Total Square Cm 31.96 31.62 28.52 -Wound/Ulcer Outcome Not Healed Not Healed Not Healed -Ulcer Cleansing Rinsed/ Rinsed/ Irrigated with Irrigated with Saline Saline -Foul Odor after Cleansing No No No -Bioengineered Tissue No -Type of bioengineered Tissue EPIFIX EPIFIX EPIFIX -Expiration Date 08/18/22 09/18/22 -Product Lot Number [id number] -Percent Used 100 100 -Saline Lot Number [id number] -Bleeding Controlled with Pressure Pressure Pressure -Treatment Response Procedure Procedure Procedure Tolerated Well Tolerated Well Tolerated Well #5 LLE Post -Time 08:36 09:05 09:10 -Correct Patient Yes Yes Yes -Correct Side, Site, Position Yes Yes Yes -Correct Procedure Yes Yes Yes -Procedure Performed Yes Yes Yes -Type of Procedure Debridement Debridement Debridement -Clinical Debridement Subcutaneous Subcutaneous Subcutaneous -Post Debridement Size (cm) - Length 8.5 8.1 8.7 -Post Debridement Size (cm) - Width 1.4 1.2 1.4 -Post Debridement Size (cm) - Depth 0.2 0.2 0.2 -Total Square Cm 11.90 9.72 12.18 -Wound/Ulcer Outcome Not Healed Not Healed Not Healed -Ulcer Cleansing Rinsed/ Rinsed/ Rinsed/ Irrigated with Irrigated with Irrigated with Saline Saline Saline -Foul Odor after Cleansing No No No -Bioengineered Tissue No No -Type of bioengineered Tissue EPIFIX -Bleeding Controlled with Pressure Pressure Pressure -Treatment Response Procedure Procedure Procedure Tolerated Well Tolerated Well Tolerated Well Pain Scale: 0-10 Numeric Is Patient Pain Free? Yes Yes Yes Wound debrided: Anterior ray left lower leg Type of Debridement: Excisional debridement Anesthesia Used: 5% Lidocaine Gel Depth: Down to and including healthy tissue, in the subcutaneous layer Percentage of wound debrided: 100 Instrument Used: 7mm curette Tissue Removed: Fibrin and some devitalized tissue Severity: Limited To Skin Breakdown Amount of bleeding with debridement: Mild Patient tolerated procedure well - Additional Wound Wound debrided: Posterior lower leg ulcer Type of Debridement: Excisional debridement Anesthesia Used: 5% Lidocaine Gel Depth: Down to and including healthy tissue, in the subcutaneous layer, to muscle Percentage of wound debrided: 100 Instrument Used: 7mm curette Tissue Removed: Fibrin and some devitalized tissue Severity: Limited To Skin Breakdown Bleeding Controlled with: Compression and gauze Patient tolerated procedure: Patient tolerated procedure well Assessment/Plan Ulcers taken anaerobic and aerobic Active Problems Infected open wound (Acute) Chronic atrial fibrillation (Chronic) Bilateral edema of lower extremity (Chronic) Neuropathic pain, leg, bilateral (Chronic) Nonhealing ulcer of left lower leg (Acute) Assessment: bilateral lower leg edema. Cellulitis,. Bilateral lower leg edema. Left lower leg ulcer-. Infection left lower leg ulcer. 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 Atrial fib to onset. Peripheral vascular disease Plan: Use Hibiclens wash around bilateral lower leg ulcers. posterior ulcers and anterior ulcer apply promogran moistened Adaptic gauze and Sanjuana QOD. Continue the double layer Tubigrip to bilateral lower legs with Brandon wrap over top. Follow-up in 1 week. Nursing notes reviewed
--- NOTE | 2017-12-08 09:34 | PN.PCM_ITS ---
(1) Infected open wound Status: Acute Current Visit: Yes Code(s): T14.8XXA - Other injury of unspecified body region, initial encounter; L08.9 - Local infection of the skin and subcutaneous tissue, unspecified (2) Nonhealing ulcer of left lower leg Status: Acute Current Visit: Yes Code(s): L97.829 - Non-pressure chronic ulcer of other part of left lower leg with unspecified severity (3) Bilateral edema of lower extremity Status: Chronic Current Visit: Yes Code(s): R60.0 - Localized edema (4) Chronic atrial fibrillation Status: Chronic Current Visit: Yes Code(s): I48.2 - Chronic atrial fibrillation (5) Neuropathic pain, leg, bilateral Status: Chronic Current Visit: Yes Code(s): G57.91 - Unspecified mononeuropathy of right lower limb; G57.92 - Unspecified mononeuropathy of left lower limb Type of Wound Date of Service: 12/08/17 Chief Complaint: Follow-up on bilateral lower leg ulcers History of Wound: 77-year-old white male who had surgery with Dr. 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 Apparently unbeknown to him he developed some open areas on the left lower leg and neglected them. Now he has very large deep ulcers with necrotic tissue and smell on the left lower leg anterior and posterior leg. Patient has been using his Aquacel silver on it. And not wearing his stockings or compression. There is a lot of edema and redness and cellulitis. Progress of Wound: The left anterior and posterior open ulcers have little slough in them. Specially the posterior leg very beefy and a lot of new epithelial excision of the skin using Promogran. The anterior has been slower but still developing a lot of epithelial tissue also were going to try to hold on the epi-fix this week and use Promogran in the anterior leg also. Swelling is improved also wearing a double layer Tubigrip and Brandon wrap over top for more compression His history of coxsackie a virus he still goes in a congestive heart failure he is BNP was over 500 his pre-albumin was 22 his regular albumin his blood was within normal limits shows some slight anemia on labs suggested he take iron. 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 Forced elevating legs eating more meat to improve his healing. - Physical Exam Vital Signs Temp Pulse Resp BP 97.8 F 107 H 20 H 128/80 H 12/08/17 08:37 12/01/17 08:20 12/08/17 08:37 12/08/17 08:37 General: Oriented x3, Cooperative, Well developed HEENT: Atraumatic, PERRLA Oral: Moist Mucosa Neck: Supple, No JVD Lungs: Clear to auscultation, Normal air movement Cardiovascular: Regular rate, Regular Rhythm Abdomen: Bowel Sounds Present, Soft, Non Tender, No Hepato-splenomegaly Extremities: No clubbing, Edema Skin: Ulcer/ Wound - Left lower leg anterior posterior ray Wound Measurements and Assessment WC - Nurse 1 - General Ulcer Measurement Start: 11/17/17 08:14 Freq: Status: Active Protocol: Activity Type Activity Date Activity User E-Sign Co-Sign Detail Recorded Client Recorded Date Recorded By Document 12/08/17 08:37 LORA [id number] 12/08/17 08:53 LORA 12/08/17 08:37 Wound Center Nurse 1 [Ulcer Assessment] #6 L Ray -Combined with other wound No -Current Size (cm) - Length 9.4 -Current Size (cm) - Width 4.9 -Current Size (cm) - Depth 0.4 -Total Square Cm 46.06 -Date of Last Picture (Recall this 12/01/17 field) -Photo Taken No -Epithelialization None Present -Tunneling No -Undermining/Tunneling No -Circular Undermining No -Classification - Thickness Full Thickness without Exposed Support Structure -Exudate Amt Medium (34-66%) -Exudate Type Serosanguineous -Wound Margin Distinct, Outline Attached -Granulation Amt Medium (34-66%) -Granulation Quality Pale Red -Slough/Fibrin Yes -Necrosis Amt Small (1-33%) -Necrotic Tissue Type Adherent Slough -Structure Exposed Fascia Fat Layer Exposed -Texture (Cyndy-wound Skin Appearance) Localized Edema -Moisture (Cyndy-wound Skin Appearance No Abnormality ) -Color (Cyndy-wound Skin Appearance) Hemosiderin Staining -Temperature (Cyndy-wound Skin No Abnormality Appearance) (Pt Warm) -Tenderness on Palpation (Cyndy-wound Yes Skin Appearance) -Ulcer Cleansing Rinsed/ Irrigated with Saline -Foul Odor after Cleansing No -Anesthetic Used 5% Lidocaine Gel #5 LLE Post -Combined with other wound No -Current Size (cm) - Length 8.6 -Current Size (cm) - Width 1.5 -Current Size (cm) - Depth 0.3 -Total Square Cm 12.90 -Date of Last Picture (Recall this 12/01/17 field) -Photo Taken No -Epithelialization None Present -Tunneling No -Undermining/Tunneling No -Circular Undermining No -Classification - Thickness Full Thickness without Exposed Support Structure -Exudate Amt Medium (34-66%) -Exudate Type Serosanguineous -Wound Margin Distinct, Outline Attached -Granulation Amt Small (1-33%) -Granulation Quality Pale Red -Slough/Fibrin Yes -Necrosis Amt None Present (0 %) -Necrotic Tissue Type Adherent Slough -Structure Exposed Fascia Fat Layer Exposed -Texture (Cyndy-wound Skin Appearance) No Abnormality Localized Edema -Moisture (Cyndy-wound Skin Appearance Dry/Scaly ) -Color (Cyndy-wound Skin Appearance) Hemosiderin Staining -Temperature (Cyndy-wound Skin No Abnormality Appearance) (Pt Warm) -Tenderness on Palpation (Cyndy-wound Yes Skin Appearance) -Ulcer Cleansing Rinsed/ Irrigated with Saline -Foul Odor after Cleansing No -Anesthetic Used 5% Lidocaine Gel [Edema Assessment] -Lower Limb Edema Present Yes -Left Calf (cm) 46.0 -Left Ankle (cm) 28.0 WC - Nurse 2 - General Ulcer CM Notes Start: 11/17/17 08:14 Freq: Status: Active Protocol: Activity Type Activity Date Activity User E-Sign Co-Sign Detail Recorded Client Recorded Date Recorded By Document 12/08/17 09:09 MW [id number] 12/08/17 09:18 MW 12/08/17 09:09 Wound Center Nurse 2 [Procedure/Treatment] #6 L Ray -Time 09:10 -Correct Patient Yes -Correct Side, Site, Position Yes -Correct Procedure Yes -Procedure Performed Yes -Type of Procedure Debridement -Clinical Debridement Subcutaneous -Post Debridement Size (cm) - Length 9.2 -Post Debridement Size (cm) - Width 3.1 -Post Debridement Size (cm) - Depth 0.3 -Total Square Cm 28.52 -Wound/Ulcer Outcome Not Healed -Ulcer Cleansing Rinsed/ Irrigated with Saline -Foul Odor after Cleansing No -Type of bioengineered Tissue EPIFIX -Bleeding Controlled with Pressure -Treatment Response Procedure Tolerated Well #5 LLE Post -Time 09:10 -Correct Patient Yes -Correct Side, Site, Position Yes -Correct Procedure Yes -Procedure Performed Yes -Type of Procedure Debridement -Clinical Debridement Subcutaneous -Post Debridement Size (cm) - Length 8.7 -Post Debridement Size (cm) - Width 1.4 -Post Debridement Size (cm) - Depth 0.2 -Total Square Cm 12.18 -Wound/Ulcer Outcome Not Healed -Ulcer Cleansing Rinsed/ Irrigated with Saline -Foul Odor after Cleansing No -Bleeding Controlled with Pressure -Treatment Response Procedure Tolerated Well [See Physician Procedure note for Specifics] Pain Scale: 0-10 Numeric [Pain] -Is Patient Pain Free? Yes Musculoskeletal: No Tenderness to Palpation of Joints or Extremities Lymphatic: No Cervical, Supraclavicular, or Inguinal Adenopathy Neurological: Cranial nerves II-XII grossly intact, Neuro grossly intact Psych/Mental Status: Normal Affect, Appropriate, Alert and oriented to time, place, person, mood and affect Debridement Note Post-Debridement Measurements/Treatment WC - Nurse 2 - General Ulcer CM Notes Start: 11/17/17 08:14 Freq: Status: Active Protocol: Activity Type Activity Date Activity User E-Sign Co-Sign Detail Recorded Client Recorded Date Recorded By Document 11/17/17 08:34 MW [id number] 11/17/17 08:45 MW Document 12/01/17 09:05 MW [id number] 12/01/17 09:16 MW Document 12/08/17 09:09 MW [id number] 12/08/17 09:18 MW 11/17/17 12/01/17 12/08/17 08:34 09:05 09:09 Wound Center Nurse 2 #6 L Ray -Time 08:36 09:05 09:10 -Correct Patient Yes Yes Yes -Correct Side, Site, Position Yes Yes Yes -Correct Procedure Yes Yes Yes -Procedure Performed Yes Yes Yes -Type of Procedure Debridement Debridement Debridement -Clinical Debridement Subcutaneous Subcutaneous Subcutaneous -Post Debridement Size (cm) - Length 9.4 9.3 9.2 -Post Debridement Size (cm) - Width 3.4 3.4 3.1 -Post Debridement Size (cm) - Depth 0.3 0.3 0.3 -Total Square Cm 31.96 31.62 28.52 -Wound/Ulcer Outcome Not Healed Not Healed Not Healed -Ulcer Cleansing Rinsed/ Rinsed/ Irrigated with Irrigated with Saline Saline -Foul Odor after Cleansing No No No -Bioengineered Tissue No -Type of bioengineered Tissue EPIFIX EPIFIX EPIFIX -Expiration Date 08/18/22 09/18/22 -Product Lot Number [id number] -Percent Used 100 100 -Saline Lot Number [id number] -Bleeding Controlled with Pressure Pressure Pressure -Treatment Response Procedure Procedure Procedure Tolerated Well Tolerated Well Tolerated Well #5 LLE Post -Time 08:36 09:05 09:10 -Correct Patient Yes Yes Yes -Correct Side, Site, Position Yes Yes Yes -Correct Procedure Yes Yes Yes -Procedure Performed Yes Yes Yes -Type of Procedure Debridement Debridement Debridement -Clinical Debridement Subcutaneous Subcutaneous Subcutaneous -Post Debridement Size (cm) - Length 8.5 8.1 8.7 -Post Debridement Size (cm) - Width 1.4 1.2 1.4 -Post Debridement Size (cm) - Depth 0.2 0.2 0.2 -Total Square Cm 11.90 9.72 12.18 -Wound/Ulcer Outcome Not Healed Not Healed Not Healed -Ulcer Cleansing Rinsed/ Rinsed/ Rinsed/ Irrigated with Irrigated with Irrigated with Saline Saline Saline -Foul Odor after Cleansing No No No -Bioengineered Tissue No No -Type of bioengineered Tissue EPIFIX -Bleeding Controlled with Pressure Pressure Pressure -Treatment Response Procedure Procedure Procedure Tolerated Well Tolerated Well Tolerated Well Pain Scale: 0-10 Numeric Is Patient Pain Free? Yes Yes Yes Wound debrided: Anterior ray left lower leg Type of Debridement: Excisional debridement Anesthesia Used: 5% Lidocaine Gel Depth: Down to and including healthy tissue, in the subcutaneous layer Percentage of wound debrided: 100 Instrument Used: 7mm curette Tissue Removed: Fibrin and some devitalized tissue Severity: Limited To Skin Breakdown Amount of bleeding with debridement: Mild Patient tolerated procedure well - Additional Wound Wound debrided: Posterior lower leg ulcer Type of Debridement: Excisional debridement Anesthesia Used: 5% Lidocaine Gel Depth: Down to and including healthy tissue, in the subcutaneous layer, to muscle Percentage of wound debrided: 100 Instrument Used: 7mm curette Tissue Removed: Fibrin and some devitalized tissue Severity: Limited To Skin Breakdown Bleeding Controlled with: Compression and gauze Patient tolerated procedure: Patient tolerated procedure well Assessment/Plan Ulcers taken anaerobic and aerobic Active Problems Infected open wound (Acute) Chronic atrial fibrillation (Chronic) Bilateral edema of lower extremity (Chronic) Neuropathic pain, leg, bilateral (Chronic) Nonhealing ulcer of left lower leg (Acute) Assessment: bilateral lower leg edema. Cellulitis,. Bilateral lower leg edema. Left lower leg ulcer-. Infection left lower leg ulcer. 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 Atrial fib to onset. Peripheral vascular disease Plan: Use Hibiclens wash around bilateral lower leg ulcers. posterior ulcers and anterior ulcer apply promogran moistened Adaptic gauze and Sanjuana QOD. Continue the double layer Tubigrip to bilateral lower legs with Brandon wrap over top. Follow-up in 1 week. Nursing notes reviewed
[2017-12-15 08:31] VITALS: BP 103/67; PULSE 84; RESP 20; TEMP 36.7; BMI 65.4
--- NOTE | 2017-12-15 09:23 | PCM.WC.PN ---
(1) Infected open wound Status: Acute Current Visit: Yes Code(s): T14.8XXA - Other injury of unspecified body region, initial encounter; L08.9 - Local infection of the skin and subcutaneous tissue, unspecified (2) Nonhealing ulcer of left lower leg Status: Acute Current Visit: Yes Code(s): L97.829 - Non-pressure chronic ulcer of other part of left lower leg with unspecified severity (3) Bilateral edema of lower extremity Status: Chronic Current Visit: Yes Code(s): R60.0 - Localized edema (4) Chronic atrial fibrillation Status: Chronic Current Visit: Yes Code(s): I48.2 - Chronic atrial fibrillation (5) Neuropathic pain, leg, bilateral Status: Chronic Current Visit: Yes Code(s): G57.91 - Unspecified mononeuropathy of right lower limb; G57.92 - Unspecified mononeuropathy of left lower limb (6) Chronic systolic CHF (congestive heart failure) Status: Chronic Current Visit: Yes Code(s): I50.22 - Chronic systolic (congestive) heart failure (7) Nonischemic cardiomyopathy Status: Chronic Current Visit: Yes Code(s): I42.8 - Other cardiomyopathies Type of Wound Date of Service: 12/15/17 Chief Complaint: Follow-up on bilateral lower leg ulcers History of Wound: 77-year-old white male who had surgery with Dr. 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 Apparently unbeknown to him he developed some open areas on the left lower leg and neglected them. Now he has very large deep ulcers with necrotic tissue and smell on the left lower leg anterior and posterior leg. Patient has been using his Aquacel silver on it. And not wearing his stockings or compression. There is a lot of edema and redness and cellulitis. Progress of Wound: The left anterior and posterior open ulcers bigger this week. 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 The posterior ulcer is slightly bigger and deeper also less beefy than it was last week. The left total leg is very swollen he has intolerant to the extra Brandon wrap on the left leg because of the pain. So the cultures came back positive for MRSA and he is on Bactrim DS for that he showed no anaerobes which was good. But the left leg swelling is a concern and we are going to get an emergency ultrasound on him now to make sure that there is no blood clot or any problems in that leg to impede healing. We also are going to apply for puraply for both wounds because of the infection puraply can be put in wounds with some infection in them and they will still take. We will also consult Dr. Restrepo and infectious disease to just make sure that there is nothing else that we could possibly do we will continue with our treatment plan and continue with consults to see if he would be open for graft because of the depth of the ulcer. His history of coxsackie a virus he still goes in a congestive heart failure he is BNP was over 500 his pre-albumin was 22 his regular albumin his blood was within normal limits shows some slight anemia on labs suggested he take iron. 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 Forced elevating legs eating more meat to improve his healing. - Physical Exam Vital Signs Temp Pulse Resp BP 98.0 F 84 20 H 103/67 12/15/17 08:31 12/15/17 08:31 12/15/17 08:31 12/15/17 08:31 General: Oriented x3, Cooperative, Well developed HEENT: Atraumatic, PERRLA Oral: Moist Mucosa Neck: Supple, No JVD Lungs: Clear to auscultation, Normal air movement Cardiovascular: Regular rate, Regular Rhythm Abdomen: Bowel Sounds Present, Soft, Non Tender, No Hepato-splenomegaly Extremities: No clubbing, No edema, - - Left lower leg anterior posterior christensen area ulcers open nonhealing Wound Measurements and Assessment WC - Nurse 1 - General Ulcer Measurement Start: 11/17/17 08:14 Freq: Status: Active Protocol: Activity Type Activity Date Activity User E-Sign Co-Sign Detail Recorded Client Recorded Date Recorded By Document 12/15/17 08:31 LORA [id number] 12/15/17 08:55 LORA 12/15/17 08:31 Wound Center Nurse 1 [Ulcer Assessment] #6 L Christensen -Combined with other wound No -Current Size (cm) - Length 9.3 -Current Size (cm) - Width 5.0 -Current Size (cm) - Depth 0.3 -Total Square Cm 46.50 -Date of Last Picture (Recall this 12/01/17 field) -Photo Taken No -Epithelialization None Present -Tunneling No -Undermining/Tunneling No -Circular Undermining No -Classification - Thickness Full Thickness without Exposed Support Structure -Change in Wound Grade/Stage No Query Text:If change please identify the Stage/Grade in the comment (ie. S2 G3) -Exudate Amt Medium (34-66%) -Exudate Type Serosanguineous -Wound Margin Distinct, Outline Attached -Granulation Amt Small (1-33%) -Granulation Quality Pale [place] -Slough/Fibrin Yes -Necrosis Amt None Present (0 %) -Necrotic Tissue Type Adherent Slough -Structure Exposed Fascia Fat Layer Exposed -Texture (Cyndy-wound Skin Appearance) Localized Edema -Moisture (Cyndy-wound Skin Appearance No Abnormality ) -Color (Cyndy-wound Skin Appearance) Hemosiderin Staining -Temperature (Cyndy-wound Skin No Abnormality Appearance) (Pt Warm) -Tenderness on Palpation (Cyndy-wound Yes Skin Appearance) -Ulcer Cleansing Rinsed/ Irrigated with Saline -Foul Odor after Cleansing No -Anesthetic Used 4% Lidocaine Solution 5% Lidocaine Gel #5 LLE Post -Combined with other wound No -Current Size (cm) - Length 6.3 -Current Size (cm) - Width 5.5 -Current Size (cm) - Depth 0.3 -Total Square Cm 34.65 -Date of Last Picture (Recall this 12/01/17 field) -Photo Taken No -Epithelialization None Present -Tunneling No -Undermining/Tunneling No -Circular Undermining No -Classification - Thickness Full Thickness without Exposed Support Structure -Change in Wound Grade/Stage No Query Text:If change please identify the Stage/Grade in the comment (ie. S2 G3) -Exudate Amt Large (67-100%) -Exudate Type Serosanguineous -Wound Margin Distinct, Outline Attached -Granulation Amt Medium (34-66%) -Granulation Quality Pale [place] -Slough/Fibrin Yes -Necrosis Amt None Present (0 %) -Necrotic Tissue Type Adherent Slough -Structure Exposed Fascia Fat Layer Exposed -Texture (Cyndy-wound Skin Appearance) Localized Edema -Moisture (Cyndy-wound Skin Appearance No Abnormality ) -Color (Cyndy-wound Skin Appearance) No Abnormality -Temperature (Cyndy-wound Skin No Abnormality Appearance) (Pt Warm) -Tenderness on Palpation (Cyndy-wound Yes Skin Appearance) -Ulcer Cleansing Rinsed/ Irrigated with Saline -Foul Odor after Cleansing No -Anesthetic Used 4% Lidocaine Solution 5% Lidocaine Gel [Edema Assessment] -Lower Limb Edema Present Yes -Point of measurement (cm from the 38.8 medial instep) -Point of Measurement (cm from the 27.0 medial instep) -Left Ankle (cm) 49.0 -Left Foot (cm) 27.6 WC - Nurse 2 - General Ulcer CM Notes Start: 11/17/17 08:14 Freq: Status: Active Protocol: Activity Type Activity Date Activity User E-Sign Co-Sign Detail Recorded Client Recorded Date Recorded By Document 12/15/17 09:02 MW [id number] 12/15/17 09:11 MW 12/15/17 09:02 Wound Center Nurse 2 [Procedure/Treatment] #6 L Christensen -Time 09:03 -Correct Patient Yes -Correct Side, Site, Position Yes -Correct Procedure Yes -Procedure Performed Yes -Type of Procedure Debridement -Clinical Debridement Subcutaneous -Post Debridement Size (cm) - Length 9.5 -Post Debridement Size (cm) - Width 3.8 -Post Debridement Size (cm) - Depth 0.4 -Total Square Cm 36.10 -Wound/Ulcer Outcome Not Healed -Ulcer Cleansing Rinsed/ Irrigated with Saline -Foul Odor after Cleansing No -Bioengineered Tissue No -Bleeding Controlled with Pressure -Treatment Response Procedure Tolerated Well #5 LLE Post -Time 09:04 -Correct Patient Yes -Correct Side, Site, Position Yes -Correct Procedure Yes -Procedure Performed Yes -Type of Procedure Debridement -Clinical Debridement Subcutaneous -Post Debridement Size (cm) - Length 9.0 -Post Debridement Size (cm) - Width 1.7 -Post Debridement Size (cm) - Depth 0.3 -Total Square Cm 15.30 -Wound/Ulcer Outcome Not Healed -Ulcer Cleansing Rinsed/ Irrigated with Saline -Foul Odor after Cleansing No -Bioengineered Tissue No -Bleeding Controlled with Pressure -Treatment Response Procedure Tolerated Well [See Physician Procedure note for Specifics] Musculoskeletal: No Tenderness to Palpation of Joints or Extremities Lymphatic: No Cervical, Supraclavicular, or Inguinal Adenopathy Neurological: Cranial nerves II-XII grossly intact, Neuro grossly intact Psych/Mental Status: Normal Affect, Appropriate, Alert and oriented to time, place, person, mood and affect Debridement Note Post-Debridement Measurements/Treatment BETI - Nurse 2 - General Ulcer CM Notes Start: 11/17/17 08:14 Freq: Status: Active Protocol: Activity Type Activity Date Activity User E-Sign Co-Sign Detail Recorded Client Recorded Date Recorded By Document 11/17/17 08:34 MW [id number] 11/17/17 08:45 MW Document 12/01/17 09:05 MW [id number] 12/01/17 09:16 MW Document 12/08/17 09:09 MW [id number] 12/08/17 09:18 MW Document 12/15/17 09:02 MW [id number] 12/15/17 09:11 MW 11/17/17 12/01/17 12/08/17 08:34 09:05 09:09 Wound Center Nurse 2 #6 L Christensen -Time 08:36 09:05 09:10 -Correct Patient Yes Yes Yes -Correct Side, Site, Position Yes Yes Yes -Correct Procedure Yes Yes Yes -Procedure Performed Yes Yes Yes -Type of Procedure Debridement Debridement Debridement -Clinical Debridement Subcutaneous Subcutaneous Subcutaneous -Post Debridement Size (cm) - Length 9.4 9.3 9.2 -Post Debridement Size (cm) - Width 3.4 3.4 3.1 -Post Debridement Size (cm) - Depth 0.3 0.3 0.3 -Total Square Cm 31.96 31.62 28.52 -Wound/Ulcer Outcome Not Healed Not Healed Not Healed -Ulcer Cleansing Rinsed/ Rinsed/ Irrigated with Irrigated with Saline Saline -Foul Odor after Cleansing No No No -Bioengineered Tissue No -Type of bioengineered Tissue EPIFIX EPIFIX EPIFIX -Expiration Date 08/18/22 09/18/22 -Product Lot Number [id number] -Percent Used 100 100 -Saline Lot Number [id number] -Bleeding Controlled with Pressure Pressure Pressure -Treatment Response Procedure Procedure Procedure Tolerated Well Tolerated Well Tolerated Well #5 LLE Post -Time 08:36 09:05 09:10 -Correct Patient Yes Yes Yes -Correct Side, Site, Position Yes Yes Yes -Correct Procedure Yes Yes Yes -Procedure Performed Yes Yes Yes -Type of Procedure Debridement Debridement Debridement -Clinical Debridement Subcutaneous Subcutaneous Subcutaneous -Post Debridement Size (cm) - Length 8.5 8.1 8.7 -Post Debridement Size (cm) - Width 1.4 1.2 1.4 -Post Debridement Size (cm) - Depth 0.2 0.2 0.2 -Total Square Cm 11.90 9.72 12.18 -Wound/Ulcer Outcome Not Healed Not Healed Not Healed -Ulcer Cleansing Rinsed/ Rinsed/ Rinsed/ Irrigated with Irrigated with Irrigated with Saline Saline Saline -Foul Odor after Cleansing No No No -Bioengineered Tissue No No -Type of bioengineered Tissue EPIFIX -Bleeding Controlled with Pressure Pressure Pressure -Treatment Response Procedure Procedure Procedure Tolerated Well Tolerated Well Tolerated Well Pain Scale: 0-10 Numeric Is Patient Pain Free? Yes Yes Yes 12/15/17 09:02 Wound Center Nurse 2 #6 L Christensen -Time 09:03 -Correct Patient Yes -Correct Side, Site, Position Yes -Correct Procedure Yes -Procedure Performed Yes -Type of Procedure Debridement -Clinical Debridement Subcutaneous -Post Debridement Size (cm) - Length 9.5 -Post Debridement Size (cm) - Width 3.8 -Post Debridement Size (cm) - Depth 0.4 -Total Square Cm 36.10 -Wound/Ulcer Outcome Not Healed -Ulcer Cleansing Rinsed/ Irrigated with Saline -Foul Odor after Cleansing No -Bioengineered Tissue No -Type of bioengineered Tissue -Expiration Date -Product Lot Number -Percent Used -Saline Lot Number -Bleeding Controlled with Pressure -Treatment Response Procedure Tolerated Well #5 LLE Post -Time 09:04 -Correct Patient Yes -Correct Side, Site, Position Yes -Correct Procedure Yes -Procedure Performed Yes -Type of Procedure Debridement -Clinical Debridement Subcutaneous -Post Debridement Size (cm) - Length 9.0 -Post Debridement Size (cm) - Width 1.7 -Post Debridement Size (cm) - Depth 0.3 -Total Square Cm 15.30 -Wound/Ulcer Outcome Not Healed -Ulcer Cleansing Rinsed/ Irrigated with Saline -Foul Odor after Cleansing No -Bioengineered Tissue No -Type of bioengineered Tissue -Bleeding Controlled with Pressure -Treatment Response Procedure Tolerated Well Pain Scale: 0-10 Numeric Is Patient Pain Free? Wound debrided: Left anterior ulcer Type of Debridement: Excisional debridement Depth: Down to and including healthy tissue, in the subcutaneous layer, to bone Percentage of wound debrided: 100 Instrument Used: 7mm curette Tissue Removed: Slough and fibrin Severity: Limited To Skin Breakdown Amount of bleeding with debridement: Mild Bleeding Controlled with: Pressure, Compression and gauze Patient tolerated procedure well - Additional Wound Wound debrided: Posterior left lower leg Type of Debridement: Excisional debridement Anesthesia Used: 5% Lidocaine Gel Depth: Down to and including healthy tissue, in the subcutaneous layer, to muscle Percentage of wound debrided: 100 Instrument Used: 7mm curette Tissue Removed: Fibrin and some slough Severity: Limited To Skin Breakdown Amount of bleeding with debridement: Mild Bleeding Controlled with: Compression and gauze Patient tolerated procedure: Patient tolerated procedure well Assessment/Plan Some left leg consult with liya and infectious disease Active Problems Infected open wound (Acute) Nonischemic cardiomyopathy (Chronic) Chronic systolic CHF (congestive heart failure) (Chronic) Chronic atrial fibrillation (Chronic) Bilateral edema of lower extremity (Chronic) Neuropathic pain, leg, bilateral (Chronic) Nonhealing ulcer of left lower leg (Acute) Assessment: bilateral lower leg edema. Cellulitis,. Bilateral lower leg edema swelling excessively in the left leg. Left lower leg ulcer-. Infection left lower leg ulcer. 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 Atrial fib to onset. Peripheral vascular disease Plan: Use Hibiclens wash around bilateral lower leg ulcers. posterior ulcers and anterior ulcer apply promogran moistened Adaptic gauze and Sanjuana QOD. Continue the double layer Tubigrip to bilateral lower legs with Brandon wrap over top. Follow-up in [address] nickerson and infectious disease. Ultrasound emergency immediately for left leg. Nursing notes reviewed
--- NOTE | 2017-12-15 09:33 | PN.PCM_ITS ---
(1) Infected open wound Status: Acute Current Visit: Yes Code(s): T14.8XXA - Other injury of unspecified body region, initial encounter; L08.9 - Local infection of the skin and subcutaneous tissue, unspecified (2) Nonhealing ulcer of left lower leg Status: Acute Current Visit: Yes Code(s): L97.829 - Non-pressure chronic ulcer of other part of left lower leg with unspecified severity (3) Bilateral edema of lower extremity Status: Chronic Current Visit: Yes Code(s): R60.0 - Localized edema (4) Chronic atrial fibrillation Status: Chronic Current Visit: Yes Code(s): I48.2 - Chronic atrial fibrillation (5) Neuropathic pain, leg, bilateral Status: Chronic Current Visit: Yes Code(s): G57.91 - Unspecified mononeuropathy of right lower limb; G57.92 - Unspecified mononeuropathy of left lower limb (6) Chronic systolic CHF (congestive heart failure) Status: Chronic Current Visit: Yes Code(s): I50.22 - Chronic systolic ( congestive) heart failure (7) Nonischemic cardiomyopathy Status: Chronic Current Visit: Yes Code(s): I42.8 - Other cardiomyopathies Type of Wound Date of Service: 12/15/17 Chief Complaint: Follow-up on bilateral lower leg ulcers History of Wound: 77-year-old white male who had surgery with Dr. 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 Apparently unbeknown to him he developed some open areas on the left lower leg and neglected them. Now he has very large deep ulcers with necrotic tissue and smell on the left lower leg anterior and posterior leg. Patient has been using his Aquacel silver on it. And not wearing his stockings or compression. There is a lot of edema and redness and cellulitis. Progress of Wound: The left anterior and posterior open ulcers bigger this week. 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 The posterior ulcer is slightly bigger and deeper also less beefy than it was last week. The left total leg is very swollen he has intolerant to the extra Brandon wrap on the left leg because of the pain. So the cultures came back positive for MRSA and he is on Bactrim DS for that he showed no anaerobes which was good. But the left leg swelling is a concern and we are going to get an emergency ultrasound on him now to make sure that there is no blood clot or any problems in that leg to impede healing. We also are going to apply for puraply for both wounds because of the infection puraply can be put in wounds with some infection in them and they will still take. We will also consult Dr. Restrepo and infectious disease to just make sure that there is nothing else that we could possibly do we will continue with our treatment plan and continue with consults to see if he would be open for graft because of the depth of the ulcer. His history of coxsackie a virus he still goes in a congestive heart failure he is BNP was over 500 his pre-albumin was 22 his regular albumin his blood was within normal limits shows some slight anemia on labs suggested he take iron. 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 Forced elevating legs eating more meat to improve his healing. - Physical Exam Vital Signs Temp Pulse Resp BP 98.0 F 84 20 H 103/67 12/15/17 08:31 12/15/17 08:31 12/15/17 08:31 12/15/17 08:31 General: Oriented x3, Cooperative, Well developed HEENT: Atraumatic, PERRLA Oral: Moist Mucosa Neck: Supple, No JVD Lungs: Clear to auscultation, Normal air movement Cardiovascular: Regular rate, Regular Rhythm Abdomen: Bowel Sounds Present, Soft, Non Tender, No Hepato-splenomegaly Extremities: No clubbing, No edema, - - Left lower leg anterior posterior christensen area ulcers open nonhealing Wound Measurements and Assessment WC - Nurse 1 - General Ulcer Measurement Start: 11/17/17 08:14 Freq: Status: Active Protocol: Activity Type Activity Date Activity User E-Sign Co-Sign Detail Recorded Client Recorded Date Recorded By Document 12/15/17 08:31 LORA [id number] 12/15/17 08:55 LORA 12/15/17 08:31 Wound Center Nurse 1 [Ulcer Assessment] #6 L Christensen -Combined with other wound No -Current Size (cm) - Length 9.3 -Current Size (cm) - Width 5.0 -Current Size (cm) - Depth 0.3 -Total Square Cm 46.50 -Date of Last Picture (Recall this 12/01/17 field) -Photo Taken No -Epithelialization None Present -Tunneling No -Undermining/Tunneling No -Circular Undermining No -Classification - Thickness Full Thickness without Exposed Support Structure -Change in Wound Grade/Stage No Query Text:If change please identify the Stage/Grade in the comment (ie. S2 G3) -Exudate Amt Medium (34-66%) -Exudate Type Serosanguineous -Wound Margin Distinct, Outline Attached -Granulation Amt Small (1-33%) -Granulation Quality Pale [place] -Slough/Fibrin Yes -Necrosis Amt None Present (0 %) -Necrotic Tissue Type Adherent Slough -Structure Exposed Fascia Fat Layer Exposed -Texture (Cyndy-wound Skin Appearance) Localized Edema -Moisture (Cyndy-wound Skin Appearance No Abnormality ) -Color (Cyndy-wound Skin Appearance) Hemosiderin Staining -Temperature (Cyndy-wound Skin No Abnormality Appearance) (Pt Warm) -Tenderness on Palpation (Cyndy-wound Yes Skin Appearance) -Ulcer Cleansing Rinsed/ Irrigated with Saline -Foul Odor after Cleansing No -Anesthetic Used 4% Lidocaine Solution 5% Lidocaine Gel #5 LLE Post -Combined with other wound No -Current Size (cm) - Length 6.3 -Current Size (cm) - Width 5.5 -Current Size (cm) - Depth 0.3 -Total Square Cm 34.65 -Date of Last Picture (Recall this 12/01/17 field) -Photo Taken No -Epithelialization None Present -Tunneling No -Undermining/Tunneling No -Circular Undermining No -Classification - Thickness Full Thickness without Exposed Support Structure -Change in Wound Grade/Stage No Query Text:If change please identify the Stage/Grade in the comment (ie. S2 G3) -Exudate Amt Large (67-100%) -Exudate Type Serosanguineous -Wound Margin Distinct, Outline Attached -Granulation Amt Medium (34-66%) -Granulation Quality Pale [place] -Slough/Fibrin Yes -Necrosis Amt None Present (0 %) -Necrotic Tissue Type Adherent Slough -Structure Exposed Fascia Fat Layer Exposed -Texture (Cyndy-wound Skin Appearance) Localized Edema -Moisture (Cyndy-wound Skin Appearance No Abnormality ) -Color (Cyndy-wound Skin Appearance) No Abnormality -Temperature (Cyndy-wound Skin No Abnormality Appearance) (Pt Warm) -Tenderness on Palpation (Cyndy-wound Yes Skin Appearance) -Ulcer Cleansing Rinsed/ Irrigated with Saline -Foul Odor after Cleansing No -Anesthetic Used 4% Lidocaine Solution 5% Lidocaine Gel [Edema Assessment] -Lower Limb Edema Present Yes -Point of measurement (cm from the 38.8 medial instep) -Point of Measurement (cm from the 27.0 medial instep) -Left Ankle (cm) 49.0 -Left Foot (cm) 27.6 WC - Nurse 2 - General Ulcer CM Notes Start: 11/17/17 08:14 Freq: Status: Active Protocol: Activity Type Activity Date Activity User E-Sign Co-Sign Detail Recorded Client Recorded Date Recorded By Document 12/15/17 09:02 MW [id number] 12/15/17 09:11 MW 12/15/17 09:02 Wound Center Nurse 2 [Procedure/Treatment] #6 L Christensen -Time 09:03 -Correct Patient Yes -Correct Side, Site, Position Yes -Correct Procedure Yes -Procedure Performed Yes -Type of Procedure Debridement -Clinical Debridement Subcutaneous -Post Debridement Size (cm) - Length 9.5 -Post Debridement Size (cm) - Width 3.8 -Post Debridement Size (cm) - Depth 0.4 -Total Square Cm 36.10 -Wound/Ulcer Outcome Not Healed -Ulcer Cleansing Rinsed/ Irrigated with Saline -Foul Odor after Cleansing No -Bioengineered Tissue No -Bleeding Controlled with Pressure -Treatment Response Procedure Tolerated Well #5 LLE Post -Time 09:04 -Correct Patient Yes -Correct Side, Site, Position Yes -Correct Procedure Yes -Procedure Performed Yes -Type of Procedure Debridement -Clinical Debridement Subcutaneous -Post Debridement Size (cm) - Length 9.0 -Post Debridement Size (cm) - Width 1.7 -Post Debridement Size (cm) - Depth 0.3 -Total Square Cm 15.30 -Wound/Ulcer Outcome Not Healed -Ulcer Cleansing Rinsed/ Irrigated with Saline -Foul Odor after Cleansing No -Bioengineered Tissue No -Bleeding Controlled with Pressure -Treatment Response Procedure Tolerated Well [See Physician Procedure note for Specifics] Musculoskeletal: No Tenderness to Palpation of Joints or Extremities Lymphatic: No Cervical, Supraclavicular, or Inguinal Adenopathy Neurological: Cranial nerves II-XII grossly intact, Neuro grossly intact Psych/Mental Status: Normal Affect, Appropriate, Alert and oriented to time, place, person, mood and affect Debridement Note Post-Debridement Measurements/Treatment BETI - Nurse 2 - General Ulcer CM Notes Start: 11/17/17 08:14 Freq: Status: Active Protocol: Activity Type Activity Date Activity User E-Sign Co-Sign Detail Recorded Client Recorded Date Recorded By Document 11/17/17 08:34 MW [id number] 11/17/17 08:45 MW Document 12/01/17 09:05 MW [id number] 12/01/17 09:16 MW Document 12/08/17 09:09 MW [id number] 12/08/17 09:18 MW Document 12/15/17 09:02 MW [id number] 12/15/17 09:11 MW 11/17/17 12/01/17 12/08/17 08:34 09:05 09:09 Wound Center Nurse 2 #6 L Christensen -Time 08:36 09:05 09:10 -Correct Patient Yes Yes Yes -Correct Side, Site, Position Yes Yes Yes -Correct Procedure Yes Yes Yes -Procedure Performed Yes Yes Yes -Type of Procedure Debridement Debridement Debridement -Clinical Debridement Subcutaneous Subcutaneous Subcutaneous -Post Debridement Size (cm) - Length 9.4 9.3 9.2 -Post Debridement Size (cm) - Width 3.4 3.4 3.1 -Post Debridement Size (cm) - Depth 0.3 0.3 0.3 -Total Square Cm 31.96 31.62 28.52 -Wound/Ulcer Outcome Not Healed Not Healed Not Healed -Ulcer Cleansing Rinsed/ Rinsed/ Irrigated with Irrigated with Saline Saline -Foul Odor after Cleansing No No No -Bioengineered Tissue No -Type of bioengineered Tissue EPIFIX EPIFIX EPIFIX -Expiration Date 08/18/22 09/18/22 -Product Lot Number [id number] -Percent Used 100 100 -Saline Lot Number [id number] -Bleeding Controlled with Pressure Pressure Pressure -Treatment Response Procedure Procedure Procedure Tolerated Well Tolerated Well Tolerated Well #5 LLE Post -Time 08:36 09:05 09:10 -Correct Patient Yes Yes Yes -Correct Side, Site, Position Yes Yes Yes -Correct Procedure Yes Yes Yes -Procedure Performed Yes Yes Yes -Type of Procedure Debridement Debridement Debridement -Clinical Debridement Subcutaneous Subcutaneous Subcutaneous -Post Debridement Size (cm) - Length 8.5 8.1 8.7 -Post Debridement Size (cm) - Width 1.4 1.2 1.4 -Post Debridement Size (cm) - Depth 0.2 0.2 0.2 -Total Square Cm 11.90 9.72 12.18 -Wound/Ulcer Outcome Not Healed Not Healed Not Healed -Ulcer Cleansing Rinsed/ Rinsed/ Rinsed/ Irrigated with Irrigated with Irrigated with Saline Saline Saline -Foul Odor after Cleansing No No No -Bioengineered Tissue No No -Type of bioengineered Tissue EPIFIX -Bleeding Controlled with Pressure Pressure Pressure -Treatment Response Procedure Procedure Procedure Tolerated Well Tolerated Well Tolerated Well Pain Scale: 0-10 Numeric Is Patient Pain Free? Yes Yes Yes 12/15/17 09:02 Wound Center Nurse 2 #6 L Christensen -Time 09:03 -Correct Patient Yes -Correct Side, Site, Position Yes -Correct Procedure Yes -Procedure Performed Yes -Type of Procedure Debridement -Clinical Debridement Subcutaneous -Post Debridement Size (cm) - Length 9.5 -Post Debridement Size (cm) - Width 3.8 -Post Debridement Size (cm) - Depth 0.4 -Total Square Cm 36.10 -Wound/Ulcer Outcome Not Healed -Ulcer Cleansing Rinsed/ Irrigated with Saline -Foul Odor after Cleansing No -Bioengineered Tissue No -Type of bioengineered Tissue -Expiration Date -Product Lot Number -Percent Used -Saline Lot Number -Bleeding Controlled with Pressure -Treatment Response Procedure Tolerated Well #5 LLE Post -Time 09:04 -Correct Patient Yes -Correct Side, Site, Position Yes -Correct Procedure Yes -Procedure Performed Yes -Type of Procedure Debridement -Clinical Debridement Subcutaneous -Post Debridement Size (cm) - Length 9.0 -Post Debridement Size (cm) - Width 1.7 -Post Debridement Size (cm) - Depth 0.3 -Total Square Cm 15.30 -Wound/Ulcer Outcome Not Healed -Ulcer Cleansing Rinsed/ Irrigated with Saline -Foul Odor after Cleansing No -Bioengineered Tissue No -Type of bioengineered Tissue -Bleeding Controlled with Pressure -Treatment Response Procedure Tolerated Well Pain Scale: 0-10 Numeric Is Patient Pain Free? Wound debrided: Left anterior ulcer Type of Debridement: Excisional debridement Depth: Down to and including healthy tissue, in the subcutaneous layer, to bone Percentage of wound debrided: 100 Instrument Used: 7mm curette Tissue Removed: Slough and fibrin Severity: Limited To Skin Breakdown Amount of bleeding with debridement: Mild Bleeding Controlled with: Pressure, Compression and gauze Patient tolerated procedure well - Additional Wound Wound debrided: Posterior left lower leg Type of Debridement: Excisional debridement Anesthesia Used: 5% Lidocaine Gel Depth: Down to and including healthy tissue, in the subcutaneous layer, to muscle Percentage of wound debrided: 100 Instrument Used: 7mm curette Tissue Removed: Fibrin and some slough Severity: Limited To Skin Breakdown Amount of bleeding with debridement: Mild Bleeding Controlled with: Compression and gauze Patient tolerated procedure: Patient tolerated procedure well Assessment/Plan Some left leg consult with liya and infectious disease Active Problems Infected open wound (Acute) Nonischemic cardiomyopathy (Chronic) Chronic systolic CHF (congestive heart failure) (Chronic) Chronic atrial fibrillation (Chronic) Bilateral edema of lower extremity (Chronic) Neuropathic pain, leg, bilateral (Chronic) Nonhealing ulcer of left lower leg (Acute) Assessment: bilateral lower leg edema. Cellulitis,. Bilateral lower leg edema swelling excessively in the left leg. Left lower leg ulcer-. Infection left lower leg ulcer. 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 Atrial fib to onset. Peripheral vascular disease Plan: Use Hibiclens wash around bilateral lower leg ulcers. posterior ulcers and anterior ulcer apply promogran moistened Adaptic gauze and Sanjuana QOD. Continue the double layer Tubigrip to bilateral lower legs with Brandon wrap over top. Follow-up in [address] nickerson and infectious disease. Ultrasound emergency immediately for left leg. Nursing notes reviewed
--- NOTE | 2017-12-15 10:02 | VDLE_ITS ---
Reason For Study: LEG SWELLING Procedure LEFT Exam performed in department. GSV is normal. A preliminary report was called and/or faxed CFV is compressible, spontaneous, phasic, to Benson Lopez. competent, and demonstrates normal augmentation. FV is compressible, spontaneous, phasic, competent and demonstrates normal augmentation. POP V is compressible, spontaneous, phasic, competent and demonstrates normal augmentation. T/P Trunk is compressible. PTV is compressible. LT PerV is compressible. Interpretation Summary There is no evidence of left lower extremity deep vein thrombosis. Left greater saphenous vein appears patent and compressible segmentally. Ordering Physician: LISETTE LOPEZ Referring Physician: Phoebe Daniels M.D. Performed By: Silva Sanchez RVT
== END 2017-12-16 23:59 ==
LOC: CVS 11:30
PROVIDERS: Family Provider Internal Medicine; PCP Internal Medicine; Visit Provider Nurse Practitioner
DX: I73.9 Peripheral vascular disease, unspecified (principal); L97.821 Non-pressure chronic ulcer of other part of left lower leg limited to breakdown of skin; I48.2 Chronic atrial fibrillation; R60.0 Localized edema; L08.9 Local infection of the skin and subcutaneous tissue, unspecified; G57.91 Unspecified mononeuropathy of right lower limb; B95.62 Methicillin resistant Staphylococcus aureus infection as the cause of diseases classified elsewhere; I50.22 Chronic systolic (congestive) heart failure
CPT/HCPCS: 11042; 11045; 15271; 87070; 87075; 87077; 87186; 87205; 93971; Q4131

== ENCOUNTER 2018-01-11 15:00 | Outpatient (RCR) | payer MEDICARE, OTHER, SELFPAY ==
[2017-12-17 00:18] VITALS: BP 99/57; PULSE 84; RESP 20; TEMP 36.7; BMI 65.4
[2017-12-22 08:38] VITALS: BP 99/68; PULSE 110; RESP 20; TEMP 36.4; BMI 65.4
--- NOTE | 2017-12-22 09:37 | PCM.WC.PN ---
(1) Infected open wound Status: Acute Current Visit: Yes Code(s): T14.8XXA - Other injury of unspecified body region, initial encounter; L08.9 - Local infection of the skin and subcutaneous tissue, unspecified (2) Nonhealing ulcer of left lower leg Status: Acute Current Visit: Yes Code(s): L97.829 - Non-pressure chronic ulcer of other part of left lower leg with unspecified severity (3) Bilateral edema of lower extremity Status: Chronic Current Visit: Yes Code(s): R60.0 - Localized edema (4) Chronic atrial fibrillation Status: Chronic Current Visit: Yes Code(s): I48.2 - Chronic atrial fibrillation (5) Nonischemic cardiomyopathy Status: Chronic Current Visit: Yes Code(s): I42.8 - Other cardiomyopathies (6) Pain, lower extremity Status: Chronic Current Visit: Yes Type of Wound Date of Service: 12/22/17 Chief Complaint: Follow-up on bilateral lower leg ulcers History of Wound: 77-year-old white male who had surgery with Dr. 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 Apparently unbeknown to him he developed some open areas on the left lower leg and neglected them. Now he has very large deep ulcers with necrotic tissue and smell on the left lower leg anterior and posterior leg. Patient has been using his Aquacel silver on it. And not wearing his stockings or compression. There is a lot of edema and redness and cellulitis. Progress of Wound: The left anterior and posterior open ulcers about the same this week. 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 He has been taking antibiotic therapy for that plus and antimicrobial but did not show any anaerobes in his ulcer. The left total leg length is much improved. Patient states his primary care doctor gave him a better medication for decreasing edema. Patient states he will try review using the Brandon wraps over the Tubigrip's this next week. He has been more compliant with elevation and it shows. So the cultures came back positive for MRSA and he is on Bactrim DS for that he showed no anaerobes which was good. Ultrasound shows no blood clot in his left leg. Patient was approved for puraply #1 was applied today to the anterior ulcer. Puraply can be put on wounds that have MRSA it is resistant. We also are going to apply for puraply for both wounds. It is medically necessary for him to either use the substitute skin or we will be looking at a skin graft. We will also consult Dr. Restrepo and infectious disease to just make sure that there is nothing else that we could possibly do we will continue with our treatment plan and continue with consults to see if he would be open for graft because of the depth of the ulcer. His history of coxsackie a virus he still goes in a congestive heart failure he is BNP was over 500 his pre-albumin was 22 his regular albumin his blood was within normal limits shows some slight anemia on labs suggested he take iron. 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 Forced elevating legs eating more meat to improve his healing. - Physical Exam Vital Signs Temp Pulse Resp BP 97.6 F L 110 H 20 H 99/68 12/22/17 08:38 12/22/17 08:38 12/22/17 08:38 12/22/17 08:38 General: Oriented x3, Cooperative, Well developed HEENT: Atraumatic, PERRLA Oral: Moist Mucosa Neck: Supple, No JVD Lungs: Clear to auscultation, Normal air movement Cardiovascular: Regular rate, Regular Rhythm Abdomen: Bowel Sounds Present, Soft, Non Tender, No Hepato-splenomegaly Extremities: No clubbing, No edema Skin: Ulcer/ Wound - Anterior and posterior left lower leg ulcers Wound Measurements and Assessment WC - Nurse 1 - General Ulcer Measurement Start: 12/22/17 08:25 Freq: Status: Active Protocol: Activity Type Activity Date Activity User E-Sign Co-Sign Detail Recorded Client Recorded Date Recorded By Document 12/22/17 08:38 DL [id number] 12/22/17 08:51 DL 12/22/17 08:38 Wound Center Nurse 1 [Ulcer Assessment] #6 L Christensen -Current Size (cm) - Length 9.5 -Current Size (cm) - Width 4.4 -Current Size (cm) - Depth 0.6 -Total Square Cm 41.80 -Photo Taken No -Exudate Amt Medium (34-66%) -Exudate Type Serosanguineous -Wound Margin Thickened -Granulation Amt Small (1-33%) -Granulation Quality [place] -Necrosis Amt Large (67-100%) -Necrotic Tissue Type Adherent Slough -Structure Exposed N/A -Texture (Cyndy-wound Skin Appearance) Scarring -Moisture (Cyndy-wound Skin Appearance Dry/Scaly ) -Color (Cyndy-wound Skin Appearance) No Abnormality Hemosiderin Staining Rubor -Temperature (Cyndy-wound Skin No Abnormality Appearance) (Pt Warm) -Ulcer Cleansing Rinsed/ Irrigated with Saline -Foul Odor after Cleansing No -Anesthetic Used 4% Lidocaine Solution #5 LLE Post -Current Size (cm) - Length 7.8 -Current Size (cm) - Width 1.8 -Current Size (cm) - Depth 0.6 -Total Square Cm 14.04 -Photo Taken No -Exudate Amt Medium (34-66%) -Exudate Type Serosanguineous -Wound Margin Thickened -Granulation Amt Small (1-33%) -Granulation Quality [place] -Necrosis Amt Large (67-100%) -Necrotic Tissue Type Adherent Slough -Structure Exposed N/A -Texture (Cyndy-wound Skin Appearance) Scarring -Moisture (Cyndy-wound Skin Appearance Dry/Scaly ) -Color (Cyndy-wound Skin Appearance) Hemosiderin Staining Rubor -Temperature (Cyndy-wound Skin No Abnormality Appearance) (Pt Warm) -Tenderness on Palpation (Cyndy-wound Yes Skin Appearance) -Ulcer Cleansing Rinsed/ Irrigated with Saline -Foul Odor after Cleansing No -Anesthetic Used 4% Lidocaine Solution [Edema Assessment] -Left Calf (cm) 42 -Left Ankle (cm) 24.2 WC - Nurse 2 - General Ulcer CM Notes Start: 12/22/17 08:25 Freq: Status: Active Protocol: Activity Type Activity Date Activity User E-Sign Co-Sign Detail Recorded Client Recorded Date Recorded By Document 12/22/17 09:07 MW [id number] 12/22/17 09:19 MW 12/22/17 09:07 Wound Center Nurse 2 [Procedure/Treatment] #6 L Christensen -Time 09:08 -Correct Patient Yes -Correct Side, Site, Position Yes -Correct Procedure Yes -Procedure Performed Yes -Type of Procedure Debridement -Clinical Debridement Subcutaneous -Post Debridement Size (cm) - Length 9.3 -Post Debridement Size (cm) - Width 3.8 -Post Debridement Size (cm) - Depth 0.4 -Total Square Cm 35.34 -Wound/Ulcer Outcome Not Healed -Ulcer Cleansing Rinsed/ Irrigated with Saline -Foul Odor after Cleansing No -Bioengineered Tissue Yes -Type of bioengineered Tissue [id number] -Expiration Date 08/12/19 -Product Lot Number [id number] -Percent Used 100 -Saline Lot Number [id number] -Bleeding Controlled with Pressure -Treatment Response Procedure Tolerated Well #5 LLE Post -Time 09:08 -Correct Patient Yes -Correct Side, Site, Position Yes -Correct Procedure Yes -Procedure Performed Yes -Type of Procedure Debridement -Clinical Debridement Subcutaneous -Post Debridement Size (cm) - Length 8.5 -Post Debridement Size (cm) - Width 1.5 -Post Debridement Size (cm) - Depth 0.3 -Total Square Cm 12.75 -Wound/Ulcer Outcome Not Healed -Ulcer Cleansing Rinsed/ Irrigated with Saline -Foul Odor after Cleansing No -Bioengineered Tissue No -Bleeding Controlled with Pressure -Treatment Response Procedure Tolerated Well [See Physician Procedure note for Specifics] Pain Scale: 0-10 Numeric [Pain] -Is Patient Pain Free? Yes Musculoskeletal: No Tenderness to Palpation of Joints or Extremities Lymphatic: No Cervical, Supraclavicular, or Inguinal Adenopathy Neurological: Cranial nerves II-XII grossly intact, Neuro grossly intact Psych/Mental Status: Normal Affect, Appropriate Debridement Note Post-Debridement Measurements/Treatment WC - Nurse 2 - General Ulcer CM Notes Start: 12/22/17 08:25 Freq: Status: Active Protocol: Activity Type Activity Date Activity User E-Sign Co-Sign Detail Recorded Client Recorded Date Recorded By Document 12/22/17 09:07 MW [id number] 12/22/17 09:19 MW 12/22/17 09:07 Wound Center Nurse 2 #6 L Christensen -Time 09:08 -Correct Patient Yes -Correct Side, Site, Position Yes -Correct Procedure Yes -Procedure Performed Yes -Type of Procedure Debridement -Clinical Debridement Subcutaneous -Post Debridement Size (cm) - Length 9.3 -Post Debridement Size (cm) - Width 3.8 -Post Debridement Size (cm) - Depth 0.4 -Total Square Cm 35.34 -Wound/Ulcer Outcome Not Healed -Ulcer Cleansing Rinsed/ Irrigated with Saline -Foul Odor after Cleansing No -Bioengineered Tissue Yes -Type of bioengineered Tissue [id number] -Expiration Date 08/12/19 -Product Lot Number [id number] -Percent Used 100 -Saline Lot Number [id number] -Bleeding Controlled with Pressure -Treatment Response Procedure Tolerated Well #5 LLE Post -Time 09:08 -Correct Patient Yes -Correct Side, Site, Position Yes -Correct Procedure Yes -Procedure Performed Yes -Type of Procedure Debridement -Clinical Debridement Subcutaneous -Post Debridement Size (cm) - Length 8.5 -Post Debridement Size (cm) - Width 1.5 -Post Debridement Size (cm) - Depth 0.3 -Total Square Cm 12.75 -Wound/Ulcer Outcome Not Healed -Ulcer Cleansing Rinsed/ Irrigated with Saline -Foul Odor after Cleansing No -Bioengineered Tissue No -Bleeding Controlled with Pressure -Treatment Response Procedure Tolerated Well Pain Scale: 0-10 Numeric Is Patient Pain Free? Yes Wound debrided: Cheerier christensen ulcer Type of Debridement: Excisional debridement Anesthesia Used: 5% Lidocaine Gel Depth: Down to and including healthy tissue, in the subcutaneous layer Percentage of wound debrided: 100 Instrument Used: 7mm curette Tissue Removed: Devitalized tissue and slough Severity: Limited To Skin Breakdown Amount of bleeding with debridement: None Bleeding Controlled with: Pressure, Compression and gauze Patient tolerated procedure well - Additional Wound Wound debrided: Posterior left lower leg ulcer Type of Debridement: Excisional debridement Anesthesia Used: 5% Lidocaine Gel Depth: Down to and including healthy tissue, in the subcutaneous layer Percentage of wound debrided: 100 Instrument Used: 7mm curette Tissue Removed: Slough and devitalized tissue Severity: Limited To Skin Breakdown Amount of bleeding with debridement: None Bleeding Controlled with: Pressure Patient tolerated procedure: Patient tolerated procedure well Assessment/Plan Active Problems Infected open wound (Acute) Nonischemic cardiomyopathy (Chronic) Chronic atrial fibrillation (Chronic) Bilateral edema of lower extremity (Chronic) Pain, lower extremity (Chronic) Nonhealing ulcer of left lower leg (Acute) Assessment: bilateral lower leg edema. Cellulitis,. Bilateral lower leg edema swelling excessively in the left leg. Left lower leg ulcer-. Infection left lower leg ulcer. 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 Atrial fib to onset. Peripheral vascular disease Plan: Use Hibiclens wash around bilateral lower leg ulcers. posterior ulcers apply promogran moistened Adaptic gauze and Sanjuana QOD. Anterior ulcer #1 puraply with Adaptic over top Steri-Strips gauze dressing. Continue the double layer Tubigrip to bilateral lower legs with Brandon wrap over top. Follow-up in [address] nickerson and infectious disease. Nursing notes reviewed
--- NOTE | 2017-12-22 09:46 | PN.PCM_ITS ---
(1) Infected open wound Status: Acute Current Visit: Yes Code(s): T14.8XXA - Other injury of unspecified body region, initial encounter; L08.9 - Local infection of the skin and subcutaneous tissue, unspecified (2) Nonhealing ulcer of left lower leg Status: Acute Current Visit: Yes Code(s): L97.829 - Non-pressure chronic ulcer of other part of left lower leg with unspecified severity (3) Bilateral edema of lower extremity Status: Chronic Current Visit: Yes Code(s): R60.0 - Localized edema (4) Chronic atrial fibrillation Status: Chronic Current Visit: Yes Code(s): I48.2 - Chronic atrial fibrillation (5) Nonischemic cardiomyopathy Status: Chronic Current Visit: Yes Code(s): I42.8 - Other cardiomyopathies (6) Pain, lower extremity Status: Chronic Current Visit: Yes Type of Wound Date of Service: 12/22/17 Chief Complaint: Follow-up on bilateral lower leg ulcers History of Wound: 77-year-old white male who had surgery with Dr. 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 Apparently unbeknown to him he developed some open areas on the left lower leg and neglected them. Now he has very large deep ulcers with necrotic tissue and smell on the left lower leg anterior and posterior leg. Patient has been using his Aquacel silver on it. And not wearing his stockings or compression. There is a lot of edema and redness and cellulitis. Progress of Wound: The left anterior and posterior open ulcers about the same this week. 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 He has been taking antibiotic therapy for that plus and antimicrobial but did not show any anaerobes in his ulcer. The left total leg length is much improved. Patient states his primary care doctor gave him a better medication for decreasing edema. Patient states he will try review using the Brandon wraps over the Tubigrip's this next week. He has been more compliant with elevation and it shows. So the cultures came back positive for MRSA and he is on Bactrim DS for that he showed no anaerobes which was good. Ultrasound shows no blood clot in his left leg. Patient was approved for puraply #1 was applied today to the anterior ulcer. Puraply can be put on wounds that have MRSA it is resistant. We also are going to apply for puraply for both wounds. It is medically necessary for him to either use the substitute skin or we will be looking at a skin graft. We will also consult Dr. Restrepo and infectious disease to just make sure that there is nothing else that we could possibly do we will continue with our treatment plan and continue with consults to see if he would be open for graft because of the depth of the ulcer. His history of coxsackie a virus he still goes in a congestive heart failure he is BNP was over 500 his pre-albumin was 22 his regular albumin his blood was within normal limits shows some slight anemia on labs suggested he take iron. 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 Forced elevating legs eating more meat to improve his healing. - Physical Exam Vital Signs Temp Pulse Resp BP 97.6 F L 110 H 20 H 99/68 12/22/17 08:38 12/22/17 08:38 12/22/17 08:38 12/22/17 08:38 General: Oriented x3, Cooperative, Well developed HEENT: Atraumatic, PERRLA Oral: Moist Mucosa Neck: Supple, No JVD Lungs: Clear to auscultation, Normal air movement Cardiovascular: Regular rate, Regular Rhythm Abdomen: Bowel Sounds Present, Soft, Non Tender, No Hepato-splenomegaly Extremities: No clubbing, No edema Skin: Ulcer/ Wound - Anterior and posterior left lower leg ulcers Wound Measurements and Assessment WC - Nurse 1 - General Ulcer Measurement Start: 12/22/17 08:25 Freq: Status: Active Protocol: Activity Type Activity Date Activity User E-Sign Co-Sign Detail Recorded Client Recorded Date Recorded By Document 12/22/17 08:38 DL [id number] 12/22/17 08:51 DL 12/22/17 08:38 Wound Center Nurse 1 [Ulcer Assessment] #6 L Christensen -Current Size (cm) - Length 9.5 -Current Size (cm) - Width 4.4 -Current Size (cm) - Depth 0.6 -Total Square Cm 41.80 -Photo Taken No -Exudate Amt Medium (34-66%) -Exudate Type Serosanguineous -Wound Margin Thickened -Granulation Amt Small (1-33%) -Granulation Quality [place] -Necrosis Amt Large (67-100%) -Necrotic Tissue Type Adherent Slough -Structure Exposed N/A -Texture (Cyndy-wound Skin Appearance) Scarring -Moisture (Cyndy-wound Skin Appearance Dry/Scaly ) -Color (Cyndy-wound Skin Appearance) No Abnormality Hemosiderin Staining Rubor -Temperature (Cyndy-wound Skin No Abnormality Appearance) (Pt Warm) -Ulcer Cleansing Rinsed/ Irrigated with Saline -Foul Odor after Cleansing No -Anesthetic Used 4% Lidocaine Solution #5 LLE Post -Current Size (cm) - Length 7.8 -Current Size (cm) - Width 1.8 -Current Size (cm) - Depth 0.6 -Total Square Cm 14.04 -Photo Taken No -Exudate Amt Medium (34-66%) -Exudate Type Serosanguineous -Wound Margin Thickened -Granulation Amt Small (1-33%) -Granulation Quality [place] -Necrosis Amt Large (67-100%) -Necrotic Tissue Type Adherent Slough -Structure Exposed N/A -Texture (Cyndy-wound Skin Appearance) Scarring -Moisture (Cyndy-wound Skin Appearance Dry/Scaly ) -Color (Cyndy-wound Skin Appearance) Hemosiderin Staining Rubor -Temperature (Cyndy-wound Skin No Abnormality Appearance) (Pt Warm) -Tenderness on Palpation (Cyndy-wound Yes Skin Appearance) -Ulcer Cleansing Rinsed/ Irrigated with Saline -Foul Odor after Cleansing No -Anesthetic Used 4% Lidocaine Solution [Edema Assessment] -Left Calf (cm) 42 -Left Ankle (cm) 24.2 WC - Nurse 2 - General Ulcer CM Notes Start: 12/22/17 08:25 Freq: Status: Active Protocol: Activity Type Activity Date Activity User E-Sign Co-Sign Detail Recorded Client Recorded Date Recorded By Document 12/22/17 09:07 MW [id number] 12/22/17 09:19 MW 12/22/17 09:07 Wound Center Nurse 2 [Procedure/Treatment] #6 L Christensen -Time 09:08 -Correct Patient Yes -Correct Side, Site, Position Yes -Correct Procedure Yes -Procedure Performed Yes -Type of Procedure Debridement -Clinical Debridement Subcutaneous -Post Debridement Size (cm) - Length 9.3 -Post Debridement Size (cm) - Width 3.8 -Post Debridement Size (cm) - Depth 0.4 -Total Square Cm 35.34 -Wound/Ulcer Outcome Not Healed -Ulcer Cleansing Rinsed/ Irrigated with Saline -Foul Odor after Cleansing No -Bioengineered Tissue Yes -Type of bioengineered Tissue [id number] -Expiration Date 08/12/19 -Product Lot Number [id number] -Percent Used 100 -Saline Lot Number [id number] -Bleeding Controlled with Pressure -Treatment Response Procedure Tolerated Well #5 LLE Post -Time 09:08 -Correct Patient Yes -Correct Side, Site, Position Yes -Correct Procedure Yes -Procedure Performed Yes -Type of Procedure Debridement -Clinical Debridement Subcutaneous -Post Debridement Size (cm) - Length 8.5 -Post Debridement Size (cm) - Width 1.5 -Post Debridement Size (cm) - Depth 0.3 -Total Square Cm 12.75 -Wound/Ulcer Outcome Not Healed -Ulcer Cleansing Rinsed/ Irrigated with Saline -Foul Odor after Cleansing No -Bioengineered Tissue No -Bleeding Controlled with Pressure -Treatment Response Procedure Tolerated Well [See Physician Procedure note for Specifics] Pain Scale: 0-10 Numeric [Pain] -Is Patient Pain Free? Yes Musculoskeletal: No Tenderness to Palpation of Joints or Extremities Lymphatic: No Cervical, Supraclavicular, or Inguinal Adenopathy Neurological: Cranial nerves II-XII grossly intact, Neuro grossly intact Psych/Mental Status: Normal Affect, Appropriate Debridement Note Post-Debridement Measurements/Treatment WC - Nurse 2 - General Ulcer CM Notes Start: 12/22/17 08:25 Freq: Status: Active Protocol: Activity Type Activity Date Activity User E-Sign Co-Sign Detail Recorded Client Recorded Date Recorded By Document 12/22/17 09:07 MW [id number] 12/22/17 09:19 MW 12/22/17 09:07 Wound Center Nurse 2 #6 L Christensen -Time 09:08 -Correct Patient Yes -Correct Side, Site, Position Yes -Correct Procedure Yes -Procedure Performed Yes -Type of Procedure Debridement -Clinical Debridement Subcutaneous -Post Debridement Size (cm) - Length 9.3 -Post Debridement Size (cm) - Width 3.8 -Post Debridement Size (cm) - Depth 0.4 -Total Square Cm 35.34 -Wound/Ulcer Outcome Not Healed -Ulcer Cleansing Rinsed/ Irrigated with Saline -Foul Odor after Cleansing No -Bioengineered Tissue Yes -Type of bioengineered Tissue [id number] -Expiration Date 08/12/19 -Product Lot Number [id number] -Percent Used 100 -Saline Lot Number [id number] -Bleeding Controlled with Pressure -Treatment Response Procedure Tolerated Well #5 LLE Post -Time 09:08 -Correct Patient Yes -Correct Side, Site, Position Yes -Correct Procedure Yes -Procedure Performed Yes -Type of Procedure Debridement -Clinical Debridement Subcutaneous -Post Debridement Size (cm) - Length 8.5 -Post Debridement Size (cm) - Width 1.5 -Post Debridement Size (cm) - Depth 0.3 -Total Square Cm 12.75 -Wound/Ulcer Outcome Not Healed -Ulcer Cleansing Rinsed/ Irrigated with Saline -Foul Odor after Cleansing No -Bioengineered Tissue No -Bleeding Controlled with Pressure -Treatment Response Procedure Tolerated Well Pain Scale: 0-10 Numeric Is Patient Pain Free? Yes Wound debrided: Cheerier christensen ulcer Type of Debridement: Excisional debridement Anesthesia Used: 5% Lidocaine Gel Depth: Down to and including healthy tissue, in the subcutaneous layer Percentage of wound debrided: 100 Instrument Used: 7mm curette Tissue Removed: Devitalized tissue and slough Severity: Limited To Skin Breakdown Amount of bleeding with debridement: None Bleeding Controlled with: Pressure, Compression and gauze Patient tolerated procedure well - Additional Wound Wound debrided: Posterior left lower leg ulcer Type of Debridement: Excisional debridement Anesthesia Used: 5% Lidocaine Gel Depth: Down to and including healthy tissue, in the subcutaneous layer Percentage of wound debrided: 100 Instrument Used: 7mm curette Tissue Removed: Slough and devitalized tissue Severity: Limited To Skin Breakdown Amount of bleeding with debridement: None Bleeding Controlled with: Pressure Patient tolerated procedure: Patient tolerated procedure well Assessment/Plan Active Problems Infected open wound (Acute) Nonischemic cardiomyopathy (Chronic) Chronic atrial fibrillation (Chronic) Bilateral edema of lower extremity (Chronic) Pain, lower extremity (Chronic) Nonhealing ulcer of left lower leg (Acute) Assessment: bilateral lower leg edema. Cellulitis,. Bilateral lower leg edema swelling excessively in the left leg. Left lower leg ulcer-. Infection left lower leg ulcer. 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 Atrial fib to onset. Peripheral vascular disease Plan: Use Hibiclens wash around bilateral lower leg ulcers. posterior ulcers apply promogran moistened Adaptic gauze and Sanjuana QOD. Anterior ulcer #1 puraply with Adaptic over top Steri-Strips gauze dressing. Continue the double layer Tubigrip to bilateral lower legs with Brandon wrap over top. Follow-up in [address] nickerson and infectious disease. Nursing notes reviewed
[2018-01-05 09:45] VITALS: BP 99/69; PULSE 100; RESP 18; TEMP 36.4; BMI 65.4
--- NOTE | 2018-01-05 10:55 | PCM.WC.PN ---
(1) Infected open wound Status: Acute Current Visit: Yes Code(s): T14.8XXA - Other injury of unspecified body region, initial encounter; L08.9 - Local infection of the skin and subcutaneous tissue, unspecified (2) Nonhealing ulcer of left lower leg Status: Acute Current Visit: Yes Code(s): L97.829 - Non-pressure chronic ulcer of other part of left lower leg with unspecified severity (3) Bilateral edema of lower extremity Status: Chronic Current Visit: Yes Code(s): R60.0 - Localized edema (4) Chronic atrial fibrillation Status: Chronic Current Visit: Yes Code(s): I48.2 - Chronic atrial fibrillation (5) Nonischemic cardiomyopathy Status: Chronic Current Visit: Yes Code(s): I42.8 - Other cardiomyopathies (6) Pain, lower extremity Status: Chronic Current Visit: Yes Type of Wound Date of Service: 01/05/18 Chief Complaint: Follow-up on bilateral lower leg ulcers History of Wound: 77-year-old white male who had surgery with Dr. 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 Apparently unbeknown to him he developed some open areas on the left lower leg and neglected them. Now he has very large deep ulcers with necrotic tissue and smell on the left lower leg anterior and posterior leg. Patient has been using his Aquacel silver on it. And not wearing his stockings or compression. There is a lot of edema and redness and cellulitis. Progress of Wound: The left anterior and posterior open ulcers are bigger slightly but smell awful, the puraply rep states it pulls the bad out and after debridement was not as bad . 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 He has been taking antibiotic therapy for that plus and antimicrobial but did not show any anaerobes in his ulcer. The left total leg length is much improved. Patient states his primary care doctor gave him a better medication for decreasing edema. Patient states unable to tolerate the Brandon wraps over the Tubigrip's . He missed last week and it shows with the smell and the increased szeof the wounds.Ultrasound shows no blood clot in his left leg. Patient was approved for puraply #2 was applied today to the anterior ulcer. Puraply can be put on wounds that have MRSA it is resistant.Applied #1 puraply to the posterior Llower leg It is medically necessary for him to either use the substitute skin or we will be looking at a skin graft. We will also consult Dr. Restrepo and infectious disease to just make sure that there is nothing else that we could possibly do we will continue with our treatment plan and continue with consults to see if he would be open for graft because of the depth of the ulcer. His history of coxsackie a virus he still goes in a congestive heart failure he is BNP was over 500 his pre-albumin was 22 his regular albumin his blood was within normal limits shows some slight anemia on labs suggested he take iron. 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 Forced elevating legs eating more meat to improve his healing. - Physical Exam Vital Signs Temp Pulse Resp BP 97.5 F L 100 18 99/69 01/05/18 09:45 01/05/18 09:45 01/05/18 09:45 01/05/18 09:45 General: Oriented x3, Cooperative, Well developed HEENT: Atraumatic, PERRLA Oral: Moist Mucosa Neck: Supple, No JVD Lungs: Clear to auscultation, Normal air movement Cardiovascular: Regular rate, Regular Rhythm Abdomen: Bowel Sounds Present, Soft, Non Tender, No Hepato-splenomegaly Extremities: No clubbing, No edema, Edema Skin: Ulcer/ Wound - Lower anterior and posterior left lower leg Wound Measurements and Assessment WC - Nurse 1 - General Ulcer Measurement Start: 12/22/17 08:25 Freq: Status: Active Protocol: Activity Type Activity Date Activity User E-Sign Co-Sign Detail Recorded Client Recorded Date Recorded By Document 01/05/18 09:45 [id number] 01/05/18 09:49 01/05/18 09:45 Wound Center Nurse 1 [Ulcer Assessment] #6 L Christensen -Combined with other wound No -Current Size (cm) - Length 9.5 -Current Size (cm) - Width 5.0 -Current Size (cm) - Depth 0.3 -Total Square Cm 47.50 -Date of Last Picture (Recall this 01/05/18 field) -Photo Taken Yes -Epithelialization None Present -Tunneling No -Undermining/Tunneling Yes -Undermining/Tunneling Starts (O' 9 clock) -Undermining/Tunneling Ends (O'clock) 11 -Maximum Distance (cm) 0.3 -Circular Undermining No -Classification - Thickness Full Thickness with Exposed Support Structure -Exudate Amt Large (67-100%) -Exudate Type Purulent -Wound Margin Distinct, Outline Attached -Granulation Amt None Present (0 %) -Granulation Quality N/A -Slough/Fibrin Yes -Necrosis Amt Large (67-100%) -Necrotic Tissue Type Adherent Slough -Structure Exposed Fascia Bone Fat Layer Exposed -Texture (Cyndy-wound Skin Appearance) Friable Localized Edema Scarring -Moisture (Cyndy-wound Skin Appearance No Abnormality ) -Color (Cyndy-wound Skin Appearance) Erythema Hemosiderin Staining -Temperature (Cyndy-wound Skin No Abnormality Appearance) (Pt Warm) -Tenderness on Palpation (Cyndy-wound Yes Skin Appearance) -Ulcer Cleansing Rinsed/ Irrigated with Saline -Foul Odor after Cleansing Yes -Anesthetic Used 5% Lidocaine Gel #5 LLE Post -Combined with other wound No -Current Size (cm) - Length 8.0 -Current Size (cm) - Width 6.0 -Current Size (cm) - Depth 0.2 -Total Square Cm 48.00 -Date of Last Picture (Recall this 01/05/18 field) -Photo Taken Yes -Epithelialization Small 1-33% -Tunneling No -Undermining/Tunneling No -Circular Undermining No -Classification - Thickness Full Thickness without Exposed Support Structure -Exudate Amt Small (1-33%) -Exudate Type Serosanguineous -Wound Margin Distinct, Outline Attached -Granulation Amt Large (67-100%) -Granulation Quality Pale [place] -Slough/Fibrin Yes -Necrosis Amt Small (1-33%) -Necrotic Tissue Type Adherent Slough -Structure Exposed Fascia Fat Layer Exposed -Texture (Cyndy-wound Skin Appearance) Localized Edema Scarring -Moisture (Cyndy-wound Skin Appearance No Abnormality ) -Color (Cyndy-wound Skin Appearance) Erythema Hemosiderin Staining -Temperature (Cyndy-wound Skin No Abnormality Appearance) (Pt Warm) -Tenderness on Palpation (Cyndy-wound No Skin Appearance) -Ulcer Cleansing Rinsed/ Irrigated with Saline -Foul Odor after Cleansing No -Anesthetic Used 5% Lidocaine Gel [Edema Assessment] -Lower Limb Edema Present Yes -Right Calf (cm) 37.0 -Right Ankle (cm) 26.0 -Left Calf (cm) 42.0 -Left Ankle (cm) 26.5 WC - Nurse 2 - General Ulcer CM Notes Start: 12/22/17 08:25 Freq: Status: Active Protocol: Activity Type Activity Date Activity User E-Sign Co-Sign Detail Recorded Client Recorded Date Recorded By Document 01/05/18 09:56 MW [id number] 01/05/18 10:15 MW 01/05/18 09:56 Wound Center Nurse 2 [Procedure/Treatment] #6 L Christensen -Time 09:57 -Correct Patient Yes -Correct Side, Site, Position Yes -Correct Procedure Yes -Procedure Performed Yes -Type of Procedure Debridement -Clinical Debridement Muscle -Post Debridement Size (cm) - Length 9.4 -Post Debridement Size (cm) - Width 4.5 -Post Debridement Size (cm) - Depth 0.5 -Total Square Cm 42.30 -Wound/Ulcer Outcome Not Healed -Ulcer Cleansing Rinsed/ Irrigated with Saline -Foul Odor after Cleansing No -Bioengineered Tissue No -Type of bioengineered Tissue [id number] -Expiration Date 08/12/19 -Product Lot Number [id number] -Percent Used 100 -Saline Lot Number [id number] -Bleeding Controlled with Pressure -Treatment Response Procedure Tolerated Well #5 LLE Post -Time 09:57 -Correct Patient Yes -Correct Side, Site, Position Yes -Correct Procedure Yes -Procedure Performed Yes -Type of Procedure Debridement -Clinical Debridement Subcutaneous -Post Debridement Size (cm) - Length 9.0 -Post Debridement Size (cm) - Width 1.6 -Post Debridement Size (cm) - Depth 0.4 -Total Square Cm 14.40 -Wound/Ulcer Outcome Not Healed -Ulcer Cleansing Rinsed/ Irrigated with Saline -Foul Odor after Cleansing No -Bioengineered Tissue No -Type of bioengineered Tissue [id number] -Expiration Date 08/12/19 -Product Lot Number [id number] -Percent Used 75 -Saline Lot Number [id number] -Bleeding Controlled with Pressure -Treatment Response Procedure Tolerated Well [See Physician Procedure note for Specifics] Pain Scale: 0-10 Numeric [Pain] -Is Patient Pain Free? Yes Musculoskeletal: No Tenderness to Palpation of Joints or Extremities Lymphatic: No Cervical, Supraclavicular, or Inguinal Adenopathy Neurological: Cranial nerves II-XII grossly intact, Neuro grossly intact Psych/Mental Status: Normal Affect, Appropriate Debridement Note Post-Debridement Measurements/Treatment WC - Nurse 2 - General Ulcer CM Notes Start: 12/22/17 08:25 Freq: Status: Active Protocol: Activity Type Activity Date Activity User E-Sign Co-Sign Detail Recorded Client Recorded Date Recorded By Document 12/22/17 09:07 MW [id number] 12/22/17 09:19 MW Document 01/05/18 09:56 MW [id number] 01/05/18 10:15 MW 12/22/17 01/05/18 09:07 09:56 Wound Center Nurse 2 #6 L Christensen -Time 09:08 09:57 -Correct Patient Yes Yes -Correct Side, Site, Position Yes Yes -Correct Procedure Yes Yes -Procedure Performed Yes Yes -Type of Procedure Debridement Debridement -Clinical Debridement Subcutaneous Muscle -Post Debridement Size (cm) - Length 9.3 9.4 -Post Debridement Size (cm) - Width 3.8 4.5 -Post Debridement Size (cm) - Depth 0.4 0.5 -Total Square Cm 35.34 42.30 -Wound/Ulcer Outcome Not Healed Not Healed -Ulcer Cleansing Rinsed/ Rinsed/ Irrigated with Irrigated with Saline Saline -Foul Odor after Cleansing No No -Bioengineered Tissue Yes No -Type of bioengineered Tissue [id number] -Expiration Date 08/12/19 08/12/19 -Product Lot Number [id number] -Percent Used 100 100 -Saline Lot Number [id number] -Bleeding Controlled with Pressure Pressure -Treatment Response Procedure Procedure Tolerated Well Tolerated Well #5 LLE Post -Time 09:08 09:57 -Correct Patient Yes Yes -Correct Side, Site, Position Yes Yes -Correct Procedure Yes Yes -Procedure Performed Yes Yes -Type of Procedure Debridement Debridement -Clinical Debridement Subcutaneous Subcutaneous -Post Debridement Size (cm) - Length 8.5 9.0 -Post Debridement Size (cm) - Width 1.5 1.6 -Post Debridement Size (cm) - Depth 0.3 0.4 -Total Square Cm 12.75 14.40 -Wound/Ulcer Outcome Not Healed Not Healed -Ulcer Cleansing Rinsed/ Rinsed/ Irrigated with Irrigated with Saline Saline -Foul Odor after Cleansing No No -Bioengineered Tissue No No -Type of bioengineered Tissue [id number] -Expiration Date 08/12/19 -Product Lot Number [id number] -Percent Used 75 -Saline Lot Number [id number] -Bleeding Controlled with Pressure Pressure -Treatment Response Procedure Procedure Tolerated Well Tolerated Well Pain Scale: 0-10 Numeric Is Patient Pain Free? Yes Yes Wound debrided: Left lower anterior lower leg Anesthesia Used: 5% Lidocaine Gel Depth: Down to and including healthy tissue, in the subcutaneous layer, - - Tendon Percentage of wound debrided: 100 Instrument Used: 7mm curette Tissue Removed: Slough Severity: Limited To Skin Breakdown Amount of bleeding with debridement: Mild Bleeding Controlled with: Compression and gauze Patient tolerated procedure well - Additional Wound Wound debrided: Left posterior lower leg Type of Debridement: Excisional debridement Anesthesia Used: 5% Lidocaine Gel Depth: Down to and including healthy tissue, in the subcutaneous layer Percentage of wound debrided: 100 Instrument Used: 5mm curette Tissue Removed: Slough and fibrin Severity: Limited To Skin Breakdown Amount of bleeding with debridement: Mild Bleeding Controlled with: Compression and gauze Patient tolerated procedure: Patient tolerated procedure well Assessment/Plan Active Problems Infected open wound (Acute) Nonischemic cardiomyopathy (Chronic) Chronic atrial fibrillation (Chronic) Bilateral edema of lower extremity (Chronic) Pain, lower extremity (Chronic) Nonhealing ulcer of left lower leg (Acute) Assessment: bilateral lower leg edema. Cellulitis,. Bilateral lower leg edema swelling excessively in the left leg. Left lower leg ulcer-. Infection left lower leg ulcer. 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 Atrial fib to onset. Peripheral vascular disease Plan: Use Hibiclens wash around bilateral lower leg ulcers. posterior ulcers apply for 1 puraply moistened Adaptic gauze and Sanjuana. Anterior ulcer #2 puraply with Adaptic over top Steri-Strips gauze dressing. Continue the double layer Tubigrip to bilateral lower legs. Follow-up in 1 week with another provider and follow-up with me in [address] nickerson and infectious disease. Nursing notes reviewed
--- NOTE | 2018-01-05 11:03 | PN.PCM_ITS ---
(1) Infected open wound Status: Acute Current Visit: Yes Code(s): T14.8XXA - Other injury of unspecified body region, initial encounter; L08.9 - Local infection of the skin and subcutaneous tissue, unspecified (2) Nonhealing ulcer of left lower leg Status: Acute Current Visit: Yes Code(s): L97.829 - Non-pressure chronic ulcer of other part of left lower leg with unspecified severity (3) Bilateral edema of lower extremity Status: Chronic Current Visit: Yes Code(s): R60.0 - Localized edema (4) Chronic atrial fibrillation Status: Chronic Current Visit: Yes Code(s): I48.2 - Chronic atrial fibrillation (5) Nonischemic cardiomyopathy Status: Chronic Current Visit: Yes Code(s): I42.8 - Other cardiomyopathies (6) Pain, lower extremity Status: Chronic Current Visit: Yes Type of Wound Date of Service: 01/05/18 Chief Complaint: Follow-up on bilateral lower leg ulcers History of Wound: 77-year-old white male who had surgery with Dr. 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 Apparently unbeknown to him he developed some open areas on the left lower leg and neglected them. Now he has very large deep ulcers with necrotic tissue and smell on the left lower leg anterior and posterior leg. Patient has been using his Aquacel silver on it. And not wearing his stockings or compression. There is a lot of edema and redness and cellulitis. Progress of Wound: The left anterior and posterior open ulcers are bigger slightly but smell awful, the puraply rep states it pulls the bad out and after debridement was not as bad . 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 He has been taking antibiotic therapy for that plus and antimicrobial but did not show any anaerobes in his ulcer. The left total leg length is much improved. Patient states his primary care doctor gave him a better medication for decreasing edema. Patient states unable to tolerate the Brandon wraps over the Tubigrip's . He missed last week and it shows with the smell and the increased szeof the wounds.Ultrasound shows no blood clot in his left leg. Patient was approved for puraply #2 was applied today to the anterior ulcer. Puraply can be put on wounds that have MRSA it is resistant.Applied #1 puraply to the posterior Llower leg It is medically necessary for him to either use the substitute skin or we will be looking at a skin graft. We will also consult Dr. Restrepo and infectious disease to just make sure that there is nothing else that we could possibly do we will continue with our treatment plan and continue with consults to see if he would be open for graft because of the depth of the ulcer. His history of coxsackie a virus he still goes in a congestive heart failure he is BNP was over 500 his pre-albumin was 22 his regular albumin his blood was within normal limits shows some slight anemia on labs suggested he take iron. 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 Forced elevating legs eating more meat to improve his healing. - Physical Exam Vital Signs Temp Pulse Resp BP 97.5 F L 100 18 99/69 01/05/18 09:45 01/05/18 09:45 01/05/18 09:45 01/05/18 09:45 General: Oriented x3, Cooperative, Well developed HEENT: Atraumatic, PERRLA Oral: Moist Mucosa Neck: Supple, No JVD Lungs: Clear to auscultation, Normal air movement Cardiovascular: Regular rate, Regular Rhythm Abdomen: Bowel Sounds Present, Soft, Non Tender, No Hepato-splenomegaly Extremities: No clubbing, No edema, Edema Skin: Ulcer/ Wound - Lower anterior and posterior left lower leg Wound Measurements and Assessment WC - Nurse 1 - General Ulcer Measurement Start: 12/22/17 08:25 Freq: Status: Active Protocol: Activity Type Activity Date Activity User E-Sign Co-Sign Detail Recorded Client Recorded Date Recorded By Document 01/05/18 09:45 [id number] 01/05/18 09:49 01/05/18 09:45 Wound Center Nurse 1 [Ulcer Assessment] #6 L Christensen -Combined with other wound No -Current Size (cm) - Length 9.5 -Current Size (cm) - Width 5.0 -Current Size (cm) - Depth 0.3 -Total Square Cm 47.50 -Date of Last Picture (Recall this 01/05/18 field) -Photo Taken Yes -Epithelialization None Present -Tunneling No -Undermining/Tunneling Yes -Undermining/Tunneling Starts (O' 9 clock) -Undermining/Tunneling Ends (O'clock) 11 -Maximum Distance (cm) 0.3 -Circular Undermining No -Classification - Thickness Full Thickness with Exposed Support Structure -Exudate Amt Large (67-100%) -Exudate Type Purulent -Wound Margin Distinct, Outline Attached -Granulation Amt None Present (0 %) -Granulation Quality N/A -Slough/Fibrin Yes -Necrosis Amt Large (67-100%) -Necrotic Tissue Type Adherent Slough -Structure Exposed Fascia Bone Fat Layer Exposed -Texture (Cyndy-wound Skin Appearance) Friable Localized Edema Scarring -Moisture (Cyndy-wound Skin Appearance No Abnormality ) -Color (Cyndy-wound Skin Appearance) Erythema Hemosiderin Staining -Temperature (Cyndy-wound Skin No Abnormality Appearance) (Pt Warm) -Tenderness on Palpation (Cyndy-wound Yes Skin Appearance) -Ulcer Cleansing Rinsed/ Irrigated with Saline -Foul Odor after Cleansing Yes -Anesthetic Used 5% Lidocaine Gel #5 LLE Post -Combined with other wound No -Current Size (cm) - Length 8.0 -Current Size (cm) - Width 6.0 -Current Size (cm) - Depth 0.2 -Total Square Cm 48.00 -Date of Last Picture (Recall this 01/05/18 field) -Photo Taken Yes -Epithelialization Small 1-33% -Tunneling No -Undermining/Tunneling No -Circular Undermining No -Classification - Thickness Full Thickness without Exposed Support Structure -Exudate Amt Small (1-33%) -Exudate Type Serosanguineous -Wound Margin Distinct, Outline Attached -Granulation Amt Large (67-100%) -Granulation Quality Pale Mascotte -Slough/Fibrin Yes -Necrosis Amt Small (1-33%) -Necrotic Tissue Type Adherent Slough -Structure Exposed Fascia Fat Layer Exposed -Texture (Cyndy-wound Skin Appearance) Localized Edema Scarring -Moisture (Cyndy-wound Skin Appearance No Abnormality ) -Color (Cyndy-wound Skin Appearance) Erythema Hemosiderin Staining -Temperature (Cyndy-wound Skin No Abnormality Appearance) (Pt Warm) -Tenderness on Palpation (Cyndy-wound No Skin Appearance) -Ulcer Cleansing Rinsed/ Irrigated with Saline -Foul Odor after Cleansing No -Anesthetic Used 5% Lidocaine Gel [Edema Assessment] -Lower Limb Edema Present Yes -Right Calf (cm) 37.0 -Right Ankle (cm) 26.0 -Left Calf (cm) 42.0 -Left Ankle (cm) 26.5 WC - Nurse 2 - General Ulcer CM Notes Start: 12/22/17 08:25 Freq: Status: Active Protocol: Activity Type Activity Date Activity User E-Sign Co-Sign Detail Recorded Client Recorded Date Recorded By Document 01/05/18 09:56 MW [id number] 01/05/18 10:15 MW 01/05/18 09:56 Wound Center Nurse 2 [Procedure/Treatment] #6 L Christensen -Time 09:57 -Correct Patient Yes -Correct Side, Site, Position Yes -Correct Procedure Yes -Procedure Performed Yes -Type of Procedure Debridement -Clinical Debridement Muscle -Post Debridement Size (cm) - Length 9.4 -Post Debridement Size (cm) - Width 4.5 -Post Debridement Size (cm) - Depth 0.5 -Total Square Cm 42.30 -Wound/Ulcer Outcome Not Healed -Ulcer Cleansing Rinsed/ Irrigated with Saline -Foul Odor after Cleansing No -Bioengineered Tissue No -Type of bioengineered Tissue [id number] -Expiration Date 08/12/19 -Product Lot Number [id number] -Percent Used 100 -Saline Lot Number [id number] -Bleeding Controlled with Pressure -Treatment Response Procedure Tolerated Well #5 LLE Post -Time 09:57 -Correct Patient Yes -Correct Side, Site, Position Yes -Correct Procedure Yes -Procedure Performed Yes -Type of Procedure Debridement -Clinical Debridement Subcutaneous -Post Debridement Size (cm) - Length 9.0 -Post Debridement Size (cm) - Width 1.6 -Post Debridement Size (cm) - Depth 0.4 -Total Square Cm 14.40 -Wound/Ulcer Outcome Not Healed -Ulcer Cleansing Rinsed/ Irrigated with Saline -Foul Odor after Cleansing No -Bioengineered Tissue No -Type of bioengineered Tissue [id number] -Expiration Date 08/12/19 -Product Lot Number [id number] -Percent Used 75 -Saline Lot Number [id number] -Bleeding Controlled with Pressure -Treatment Response Procedure Tolerated Well [See Physician Procedure note for Specifics] Pain Scale: 0-10 Numeric [Pain] -Is Patient Pain Free? Yes Musculoskeletal: No Tenderness to Palpation of Joints or Extremities Lymphatic: No Cervical, Supraclavicular, or Inguinal Adenopathy Neurological: Cranial nerves II-XII grossly intact, Neuro grossly intact Psych/Mental Status: Normal Affect, Appropriate Debridement Note Post-Debridement Measurements/Treatment WC - Nurse 2 - General Ulcer CM Notes Start: 12/22/17 08:25 Freq: Status: Active Protocol: Activity Type Activity Date Activity User E-Sign Co-Sign Detail Recorded Client Recorded Date Recorded By Document 12/22/17 09:07 MW [id number] 12/22/17 09:19 MW Document 01/05/18 09:56 MW [id number] 01/05/18 10:15 MW 12/22/17 01/05/18 09:07 09:56 Wound Center Nurse 2 #6 L Christensen -Time 09:08 09:57 -Correct Patient Yes Yes -Correct Side, Site, Position Yes Yes -Correct Procedure Yes Yes -Procedure Performed Yes Yes -Type of Procedure Debridement Debridement -Clinical Debridement Subcutaneous Muscle -Post Debridement Size (cm) - Length 9.3 9.4 -Post Debridement Size (cm) - Width 3.8 4.5 -Post Debridement Size (cm) - Depth 0.4 0.5 -Total Square Cm 35.34 42.30 -Wound/Ulcer Outcome Not Healed Not Healed -Ulcer Cleansing Rinsed/ Rinsed/ Irrigated with Irrigated with Saline Saline -Foul Odor after Cleansing No No -Bioengineered Tissue Yes No -Type of bioengineered Tissue [id number] -Expiration Date 08/12/19 08/12/19 -Product Lot Number [id number] -Percent Used 100 100 -Saline Lot Number [id number] -Bleeding Controlled with Pressure Pressure -Treatment Response Procedure Procedure Tolerated Well Tolerated Well #5 LLE Post -Time 09:08 09:57 -Correct Patient Yes Yes -Correct Side, Site, Position Yes Yes -Correct Procedure Yes Yes -Procedure Performed Yes Yes -Type of Procedure Debridement Debridement -Clinical Debridement Subcutaneous Subcutaneous -Post Debridement Size (cm) - Length 8.5 9.0 -Post Debridement Size (cm) - Width 1.5 1.6 -Post Debridement Size (cm) - Depth 0.3 0.4 -Total Square Cm 12.75 14.40 -Wound/Ulcer Outcome Not Healed Not Healed -Ulcer Cleansing Rinsed/ Rinsed/ Irrigated with Irrigated with Saline Saline -Foul Odor after Cleansing No No -Bioengineered Tissue No No -Type of bioengineered Tissue [id number] -Expiration Date 08/12/19 -Product Lot Number [id number] -Percent Used 75 -Saline Lot Number [id number] -Bleeding Controlled with Pressure Pressure -Treatment Response Procedure Procedure Tolerated Well Tolerated Well Pain Scale: 0-10 Numeric Is Patient Pain Free? Yes Yes Wound debrided: Left lower anterior lower leg Anesthesia Used: 5% Lidocaine Gel Depth: Down to and including healthy tissue, in the subcutaneous layer, - - Tendon Percentage of wound debrided: 100 Instrument Used: 7mm curette Tissue Removed: Slough Severity: Limited To Skin Breakdown Amount of bleeding with debridement: Mild Bleeding Controlled with: Compression and gauze Patient tolerated procedure well - Additional Wound Wound debrided: Left posterior lower leg Type of Debridement: Excisional debridement Anesthesia Used: 5% Lidocaine Gel Depth: Down to and including healthy tissue, in the subcutaneous layer Percentage of wound debrided: 100 Instrument Used: 5mm curette Tissue Removed: Slough and fibrin Severity: Limited To Skin Breakdown Amount of bleeding with debridement: Mild Bleeding Controlled with: Compression and gauze Patient tolerated procedure: Patient tolerated procedure well Assessment/Plan Active Problems Infected open wound (Acute) Nonischemic cardiomyopathy (Chronic) Chronic atrial fibrillation (Chronic) Bilateral edema of lower extremity (Chronic) Pain, lower extremity (Chronic) Nonhealing ulcer of left lower leg (Acute) Assessment: bilateral lower leg edema. Cellulitis,. Bilateral lower leg edema swelling excessively in the left leg. Left lower leg ulcer-. Infection left lower leg ulcer. 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 Atrial fib to onset. Peripheral vascular disease Plan: Use Hibiclens wash around bilateral lower leg ulcers. posterior ulcers apply for 1 puraply moistened Adaptic gauze and Sanjuana. Anterior ulcer #2 puraply with Adaptic over top Steri-Strips gauze dressing. Continue the double layer Tubigrip to bilateral lower legs. Follow-up in 1 week with another provider and follow-up with me in [address] nickerson and infectious disease. Nursing notes reviewed
[2018-01-11 15:59] VITALS: RESP 18; TEMP 36.6; BMI 65.4
--- NOTE | 2018-01-11 19:40 | PCM.WC.PN ---
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 Apparently unbeknown to him he developed some open areas on the left lower leg and neglected them. Now he has very large deep ulcers with necrotic tissue and smell on the left lower leg anterior and posterior leg. Patient has been using his Aquacel silver on it. And not wearing his stockings or compression. There is a lot of edema and redness and cellulitis. Progress of Wound: Courtesy visit for Vale Lopez NP. The left anterior ulceration now has bone exposed and both anterior and posterior ulcers have a slight foul smell. The patient did tolerate the previous use of purapply well. 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 Patient states unable to tolerate the Brandon wraps over the Tubigrip's . Purapply was applied to both ulcers today and 100% was used. It is medically necessary for him to either use the substitute skin or we will be looking at a skin graft. Patient does have a pending consult for Dr. Restrepo and infectious disease to just make sure that there is nothing else that we could possibly do. we will continue with our treatment plan and continue with consults to see if he would be open for graft because of the depth of the ulcer. - Physical Exam Vital Signs Temp Pulse Resp BP 97.8 F 100 18 99/69 01/11/18 15:59 01/05/18 09:45 01/11/18 15:59 01/05/18 09:45 General: Alert, Oriented x3, Cooperative, No apparent distress HEENT: Atraumatic Lungs: Clear to auscultation Cardiovascular: Regular rate, Regular Rhythm Extremities: Diminished Peripheral Pulses, Edema - generalized BLLE edema Skin: Ulcer/ Wound - Ulcerations present anterior and posterior left lower extremity. Anterior lower extremity shows a large amount of slough and devitalized tissue and bone is exposed. Left posterior lower extremity ulcer has a moderate amount of slough to. There is a slight foul smell to the wounds. No surrounding erythema or warmth Neurological: Neuro grossly intact Psych/Mental Status: Normal Affect, Alert and oriented to time, place, person, mood and affect Debridement Note Post-Debridement Measurements/Treatment WC - Nurse 2 - General Ulcer CM Notes Start: 12/22/17 08:25 Freq: Status: Active Protocol: Activity Type Activity Date Activity User E-Sign Co-Sign Detail Recorded Client Recorded Date Recorded By Document 12/22/17 09:07 MW [id number] 12/22/17 09:19 MW Document 01/05/18 09:56 MW [id number] 01/05/18 10:15 MW Document 01/11/18 16:58 DV [id number] 01/11/18 17:20 DV 12/22/17 01/05/18 01/11/18 09:07 09:56 16:58 Wound Center Nurse 2 #6 L Christensen -Time 09:08 09:57 16:59 -Correct Patient Yes Yes Yes -Correct Side, Site, Position Yes Yes Yes -Correct Procedure Yes Yes Yes -Procedure Performed Yes Yes Yes -Type of Procedure Debridement Debridement Debridement -Clinical Debridement Subcutaneous Muscle Subcutaneous -Post Debridement Size (cm) - Length 9.3 9.4 9.0 -Post Debridement Size (cm) - Width 3.8 4.5 5.5 -Post Debridement Size (cm) - Depth 0.4 0.5 0.9 -Total Square Cm 35.34 42.30 49.50 -Wound/Ulcer Outcome Not Healed Not Healed Not Healed -Ulcer Cleansing Rinsed/ Rinsed/ Irrigated with Irrigated with Saline Saline -Foul Odor after Cleansing No No No -Bioengineered Tissue Yes No Yes -Type of bioengineered Tissue [id number] -Expiration Date 08/12/19 08/12/19 08/12/19 -Product Lot Number [id number] -Percent Used 100 100 100 -Saline Lot Number [id number] -Topical Lidocaine (%) 5 -Bleeding Controlled with Pressure Pressure Pressure -Treatment Response Procedure Procedure Procedure Tolerated Well Tolerated Well Tolerated Well #5 LLE Post -Time 09:08 09:57 16:59 -Correct Patient Yes Yes Yes -Correct Side, Site, Position Yes Yes Yes -Correct Procedure Yes Yes Yes -Procedure Performed Yes Yes Yes -Type of Procedure Debridement Debridement Debridement -Clinical Debridement Subcutaneous Subcutaneous Subcutaneous -Post Debridement Size (cm) - Length 8.5 9.0 9.0 -Post Debridement Size (cm) - Width 1.5 1.6 4.0 -Post Debridement Size (cm) - Depth 0.3 0.4 0.4 -Total Square Cm 12.75 14.40 36.00 -Wound/Ulcer Outcome Not Healed Not Healed Not Healed -Ulcer Cleansing Rinsed/ Rinsed/ Rinsed/ Irrigated with Irrigated with Irrigated with Saline Saline Saline -Foul Odor after Cleansing No No No -Bioengineered Tissue No No Yes -Type of bioengineered Tissue [id number] -Expiration Date 08/12/19 08/12/19 -Product Lot Number [id number] -Percent Used 75 100 -Saline Lot Number [id number] -Topical Lidocaine (%) 5 -Bleeding Controlled with Pressure Pressure Pressure -Treatment Response Procedure Procedure Procedure Tolerated Well Tolerated Well Tolerated Well Pain Scale: 0-10 Numeric Is Patient Pain Free? Yes Yes Yes Wound debrided: Left anterior lower extremity ulcer Laterality: Left Type of Debridement: Excisional debridement Anesthesia Used: 5% Lidocaine Gel Depth: to bone Percentage of wound debrided: 100 Instrument Used: 7mm curette Tissue Removed: Large amounts of slough and fibrous and devitalized tissue Severity: Necrosis of Muscle Amount of bleeding with debridement: Mild Bleeding Controlled with: Pressure Patient tolerated procedure well - Additional Wound Wound debrided: Left posterior lower extremity ulcer Laterality: Left Type of Debridement: Excisional debridement Anesthesia Used: 5% Lidocaine Gel Depth: to muscle Percentage of wound debrided: 100 Instrument Used: 7mm curette Tissue Removed: Slough and devitalized tissue Severity: Necrosis of Muscle Amount of bleeding with debridement: Mild Bleeding Controlled with: Pressure Patient tolerated procedure: Patient tolerated procedure well Assessment/Plan Assessment: bilateral lower leg edema. Cellulitis,. Bilateral lower leg edema swelling excessively in the left leg. Left lower leg ulcer-. Infection left lower leg ulcer. 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 Atrial fib to onset. Peripheral vascular disease Plan: Use Hibiclens wash around bilateral lower leg ulcers. Anterior and posterior ulcer puraply applied with wound veil over top Steri-Strips gauze dressing, 100% was used with 0% waste. Continue the double layer Tubigrip to bilateral lower legs. Continue taking the full course of antibiotics as previously prescribed. Educated on worsening signs of systemic infection that would require urgent medical attention. Patient verbalized understanding. Given the fact that bone is not exposed, an x-ray of the lower extremity was ordered to rule out osteomyelitis. If questionable, further imaging may be warranted in the future. Follow-up in 1 week with Vale Lopez NP. Call Dr. restrepo and infectious disease to set up consult appointments. This note was generated with [employer] dictation software. It may contain incorrect words, spelling, and punctuation that were not noted in checking the note before signing. Code Visit Office Visits / Consults: 33677 OV L4 Est 150xxx-152xx: [id number] Skin sub graft trnk/arm/leg
--- NOTE | 2018-01-17 13:51 | PN.PCM_ITS ---
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 Apparently unbeknown to him he developed some open areas on the left lower leg and neglected them. Now he has very large deep ulcers with necrotic tissue and smell on the left lower leg anterior and posterior leg. Patient has been using his Aquacel silver on it. And not wearing his stockings or compression. There is a lot of edema and redness and cellulitis. Progress of Wound: Courtesy visit for Vale Lopez NP. The left anterior ulceration now has bone exposed and both anterior and posterior ulcers have a slight foul smell. The patient did tolerate the previous use of purapply well. 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 Patient states unable to tolerate the Brandon wraps over the Tubigrip's . Purapply was applied to both ulcers today and 100% was used. It is medically necessary for him to either use the substitute skin or we will be looking at a skin graft. Patient does have a pending consult for Dr. Restrepo and infectious disease to just make sure that there is nothing else that we could possibly do. we will continue with our treatment plan and continue with consults to see if he would be open for graft because of the depth of the ulcer. - Physical Exam Vital Signs Temp Pulse Resp BP 97.8 F 100 18 99/69 01/11/18 15:59 01/05/18 09:45 01/11/18 15:59 01/05/18 09:45 General: Alert, Oriented x3, Cooperative, No apparent distress HEENT: Atraumatic Lungs: Clear to auscultation Cardiovascular: Regular rate, Regular Rhythm Extremities: Diminished Peripheral Pulses, Edema - generalized BLLE edema Skin: Ulcer/ Wound - Ulcerations present anterior and posterior left lower extremity. Anterior lower extremity shows a large amount of slough and devitalized tissue and bone is exposed. Left posterior lower extremity ulcer has a moderate amount of slough to. There is a slight foul smell to the wounds. No surrounding erythema or warmth Neurological: Neuro grossly intact Psych/Mental Status: Normal Affect, Alert and oriented to time, place, person, mood and affect Debridement Note Post-Debridement Measurements/Treatment WC - Nurse 2 - General Ulcer CM Notes Start: 12/22/17 08:25 Freq: Status: Active Protocol: Activity Type Activity Date Activity User E-Sign Co-Sign Detail Recorded Client Recorded Date Recorded By Document 12/22/17 09:07 MW [id number] 12/22/17 09:19 MW Document 01/05/18 09:56 MW [id number] 01/05/18 10:15 MW Document 01/11/18 16:58 DV [id number] 01/11/18 17:20 DV 12/22/17 01/05/18 01/11/18 09:07 09:56 16:58 Wound Center Nurse 2 #6 L Christensen -Time 09:08 09:57 16:59 -Correct Patient Yes Yes Yes -Correct Side, Site, Position Yes Yes Yes -Correct Procedure Yes Yes Yes -Procedure Performed Yes Yes Yes -Type of Procedure Debridement Debridement Debridement -Clinical Debridement Subcutaneous Muscle Subcutaneous -Post Debridement Size (cm) - Length 9.3 9.4 9.0 -Post Debridement Size (cm) - Width 3.8 4.5 5.5 -Post Debridement Size (cm) - Depth 0.4 0.5 0.9 -Total Square Cm 35.34 42.30 49.50 -Wound/Ulcer Outcome Not Healed Not Healed Not Healed -Ulcer Cleansing Rinsed/ Rinsed/ Irrigated with Irrigated with Saline Saline -Foul Odor after Cleansing No No No -Bioengineered Tissue Yes No Yes -Type of bioengineered Tissue [id number] -Expiration Date 08/12/19 08/12/19 08/12/19 -Product Lot Number [id number] -Percent Used 100 100 100 -Saline Lot Number [id number] -Topical Lidocaine (%) 5 -Bleeding Controlled with Pressure Pressure Pressure -Treatment Response Procedure Procedure Procedure Tolerated Well Tolerated Well Tolerated Well #5 LLE Post -Time 09:08 09:57 16:59 -Correct Patient Yes Yes Yes -Correct Side, Site, Position Yes Yes Yes -Correct Procedure Yes Yes Yes -Procedure Performed Yes Yes Yes -Type of Procedure Debridement Debridement Debridement -Clinical Debridement Subcutaneous Subcutaneous Subcutaneous -Post Debridement Size (cm) - Length 8.5 9.0 9.0 -Post Debridement Size (cm) - Width 1.5 1.6 4.0 -Post Debridement Size (cm) - Depth 0.3 0.4 0.4 -Total Square Cm 12.75 14.40 36.00 -Wound/Ulcer Outcome Not Healed Not Healed Not Healed -Ulcer Cleansing Rinsed/ Rinsed/ Rinsed/ Irrigated with Irrigated with Irrigated with Saline Saline Saline -Foul Odor after Cleansing No No No -Bioengineered Tissue No No Yes -Type of bioengineered Tissue [id number] -Expiration Date 08/12/19 08/12/19 -Product Lot Number [id number] -Percent Used 75 100 -Saline Lot Number [id number] -Topical Lidocaine (%) 5 -Bleeding Controlled with Pressure Pressure Pressure -Treatment Response Procedure Procedure Procedure Tolerated Well Tolerated Well Tolerated Well Pain Scale: 0-10 Numeric Is Patient Pain Free? Yes Yes Yes Wound debrided: Left anterior lower extremity ulcer Laterality: Left Type of Debridement: Excisional debridement Anesthesia Used: 5% Lidocaine Gel Depth: to bone Percentage of wound debrided: 100 Instrument Used: 7mm curette Tissue Removed: Large amounts of slough and fibrous and devitalized tissue Severity: Necrosis of Muscle Amount of bleeding with debridement: Mild Bleeding Controlled with: Pressure Patient tolerated procedure well - Additional Wound Wound debrided: Left posterior lower extremity ulcer Laterality: Left Type of Debridement: Excisional debridement Anesthesia Used: 5% Lidocaine Gel Depth: to muscle Percentage of wound debrided: 100 Instrument Used: 7mm curette Tissue Removed: Slough and devitalized tissue Severity: Necrosis of Muscle Amount of bleeding with debridement: Mild Bleeding Controlled with: Pressure Patient tolerated procedure: Patient tolerated procedure well Assessment/Plan Assessment: bilateral lower leg edema. Cellulitis,. Bilateral lower leg edema swelling excessively in the left leg. Left lower leg ulcer-. Infection left lower leg ulcer. 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 Atrial fib to onset. Peripheral vascular disease Plan: Use Hibiclens wash around bilateral lower leg ulcers. Anterior and posterior ulcer puraply applied with wound veil over top Steri-Strips gauze dressing, 100% was used with 0% waste. Continue the double layer Tubigrip to bilateral lower legs. Continue taking the full course of antibiotics as previously prescribed. Educated on worsening signs of systemic infection that would require urgent medical attention. Patient verbalized understanding. Given the fact that bone is not exposed, an x-ray of the lower extremity was ordered to rule out osteomyelitis. If questionable, further imaging may be warranted in the future. Follow-up in 1 week with Vale Lopez NP. Call Dr. restrepo and infectious disease to set up consult appointments. This note was generated with [employer] dictation software. It may contain incorrect words, spelling, and punctuation that were not noted in checking the note before signing. Code Visit Office Visits / Consults: [id number] OV L4 Est 150xxx-152xx: [id number] Skin sub graft trnk/arm/leg
== END 2018-01-15 23:59 ==
LOC: WC 15:00
PROVIDERS: Family Provider Internal Medicine; PCP Internal Medicine; Visit Provider Nurse Practitioner
DX: I73.9 Peripheral vascular disease, unspecified (principal); L97.821 Non-pressure chronic ulcer of other part of left lower leg limited to breakdown of skin; L08.9 Local infection of the skin and subcutaneous tissue, unspecified; R60.0 Localized edema; I48.2 Chronic atrial fibrillation; I42.8 Other cardiomyopathies; B95.62 Methicillin resistant Staphylococcus aureus infection as the cause of diseases classified elsewhere; I50.9 Heart failure, unspecified; M79.89 Other specified soft tissue disorders; G62.9 Polyneuropathy, unspecified; I77.9 Disorder of arteries and arterioles, unspecified
CPT/HCPCS: 11042; 11045; 15271; 15272; 87070; 87075; 87077; 87186; 87205; Q4172

== ENCOUNTER → 2018-01-14 11:59 | Outpatient (CLI) | payer MEDICARE, OTHER, SELFPAY ==
--- NOTE | 2018-01-14 12:08 | RAD_ITS ---
STUDY: X-RAY - LEFT TIBIA AND FIBULA REASON FOR EXAM: Male, 77 years old. EXPOSED BONE, LLE ULCER TECHNIQUE: 2 view(s) of the tibia and fibula were obtained. COMPARISON: None. FINDINGS: Normal visualized tibia. Normal visualized fibula. There is calcification in the knee joint space which may signify calcium pyrophosphate deposition disease. Soft tissue edema. Soft tissue swelling around the ankle. Soft tissue defect along the anterior aspect of the lower extremity. This likely represents a large ulceration. There is a calcaneal spur. RAD/Tibia & Fibula 2 Views IMPRESSION: Soft tissue edema. Soft tissue swelling around the ankle. Soft tissue defect along the anterior aspect of the lower extremity. This likely represents a large ulceration. Electronically Signed: Luciano Gandhi MD at 16:18 EDT , Service support ,
== END ==
PROVIDERS: Family Provider Internal Medicine; PCP Internal Medicine; Visit Provider Nurse Practitioner
DX: L97.826 Non-pressure chronic ulcer of other part of left lower leg with bone involvement without evidence of necrosis (principal)
CPT/HCPCS: 73590

== ENCOUNTER → 2018-01-30 09:46 | Outpatient (CLI) | payer MEDICARE, OTHER, SELFPAY ==
--- NOTE | 2018-01-30 09:55 | RAD_ITS ---
STUDY: X-RAY - LEFT ANKLE REASON FOR EXAM: Male, 77 years old. Ankle sprain evaluate for fracture TECHNIQUE: 3 view(s) of the ankle. COMPARISON: January 14, 2018 left ankle x-ray FINDINGS: The bones are osteopenic. This is especially seen on the medial malleolus. An acute fracture is not visualized. Normal medial and lateral malleoli. Normal tibiotalar articulation and ankle mortise. There is a plantar spur. The visualized subtalar, talonavicular, calcaneocuboid and tarsal articulations are normal. Is visualized soft tissue swelling. RAD/Ankle min 3 Views IMPRESSION: Bony osteopenia. Degenerative change. No definitive evidence of an acute fracture. Electronically Signed: Latisha Khan MD at 17:52 EDT Tel , Service support ,
== END ==
PROVIDERS: Family Provider Internal Medicine; PCP Internal Medicine; Visit Provider Podiatrist
DX: S93.402A Sprain of unspecified ligament of left ankle, initial encounter (principal)
CPT/HCPCS: 73610

== ENCOUNTER 2018-02-14 08:00 | Outpatient (RCR) | payer MEDICARE, OTHER, SELFPAY ==
[2018-01-16 00:19] VITALS: BP 99/57; PULSE 100; RESP 18; TEMP 36.6; BMI 65.4
[2018-01-19 09:52] VITALS: BP 118/74; PULSE 100; RESP 18; TEMP 36; BMI 65.4
--- NOTE | 2018-01-22 13:47 | PCM.WC.PN ---
(1) Infected open wound Status: Acute Current Visit: No Code(s): T14.8XXA - Other injury of unspecified body region, initial encounter; L08.9 - Local infection of the skin and subcutaneous tissue, unspecified (2) Nonhealing ulcer of left lower leg Status: Acute Current Visit: No Code(s): L97.829 - Non-pressure chronic ulcer of other part of left lower leg with unspecified severity (3) Bilateral edema of lower extremity Status: Chronic Current Visit: Yes Code(s): R60.0 - Localized edema (4) Chronic atrial fibrillation Status: Chronic Current Visit: No Code(s): I48.2 - Chronic atrial fibrillation (5) Neuropathic pain, leg, bilateral Status: Chronic Current Visit: No Code(s): G57.91 - Unspecified mononeuropathy of right lower limb; G57.92 - Unspecified mononeuropathy of left lower limb Type of Wound Date of Service: 02/02/18 Chief Complaint: Follow-up on bilateral lower leg ulcers History of Wound: 77-year-old white male who had surgery with Dr. 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 Apparently unbeknown to him he developed some open areas on the left lower leg and neglected them. Now he has very large deep ulcers with necrotic tissue and smell on the left lower leg anterior and posterior leg. Patient has been using his Aquacel silver on it. And not wearing his stockings or compression. There is a lot of edema and redness and cellulitis. Progress of Wound: The left anterior and posterior open ulcers are slightlysmaller with no odor, the puraply rep states it pulls the bad out. 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 Xrays show no osteomylitis but soft tissue swelling . He has been taking antibiotic therapy for that plus and antimicrobial but did not show any anaerobes in his ulcer. The left total leg length is much improved. Patient states his primary care doctor gave him a better medication for decreasing edema. Patient states unable to tolerate the Brandon wraps over the Tubigrip's . Ultrsound showed no blood clot in his left leg. Patient was approved for puraply #3 was applied today to the anterior ulcer and posterior ulcer too. It is medically necessary for him to either use the substitute skin or we will be looking at a skin graft. We will also consult Dr. Restrepo and infectious disease to just make sure that there is nothing else that we could possibly do we will continue with our treatment plan and continue with consults to see if he would be open for graft because of the depth of the ulcer. His history of coxsackie a virus he still goes in a congestive heart failure he is BNP was over 500 his pre-albumin was 22 his regular albumin his blood was within normal limits shows some slight anemia on labs suggested he take iron. 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 Forced elevating legs eating more meat to improve his healing. - Physical Exam Vital Signs Temp Pulse Resp BP 96.8 F L 100 18 118/74 01/19/18 09:52 01/19/18 09:52 01/19/18 09:52 01/19/18 09:52 General: Oriented x3, Cooperative, Well developed HEENT: Atraumatic, PERRLA Oral: Moist Mucosa Neck: Supple, No JVD Lungs: Clear to auscultation, Normal air movement Cardiovascular: Regular rate, Regular Rhythm Abdomen: Bowel Sounds Present, Soft, Non Tender, No Hepato-splenomegaly Extremities: No clubbing, No edema Skin: Ulcer/ Wound - L lower leg upcer anterior and posterior Musculoskeletal: No Tenderness to Palpation of Joints or Extremities Lymphatic: No Cervical, Supraclavicular, or Inguinal Adenopathy Neurological: Cranial nerves II-XII grossly intact, Neuro grossly intact Psych/Mental Status: Normal Affect, Appropriate, Alert and oriented to time, place, person, mood and affect Debridement Note Post-Debridement Measurements/Treatment WC - Nurse 2 - General Ulcer CM Notes Start: 01/19/18 09:52 Freq: Status: Active Protocol: Activity Type Activity Date Activity User E-Sign Co-Sign Detail Recorded Client Recorded Date Recorded By Document 01/19/18 10:28 DV [id number] 01/19/18 10:50 DV 01/19/18 10:28 Wound Center Nurse 2 #6 L Christensen -Time 10:29 -Correct Patient Yes -Correct Side, Site, Position Yes -Correct Procedure Yes -Procedure Performed Yes -Type of Procedure Debridement -Clinical Debridement Subcutaneous -Post Debridement Size (cm) - Length 9.2 -Post Debridement Size (cm) - Width 5.2 -Post Debridement Size (cm) - Depth 0.7 -Total Square Cm 47.84 -Wound/Ulcer Outcome Not Healed -Ulcer Cleansing Rinsed/ Irrigated with Saline -Foul Odor after Cleansing No -Bioengineered Tissue Yes -Type of bioengineered Tissue [id number] -Expiration Date 09/14/19 -Product Lot Number [id number] -Percent Used 100 -Saline Lot Number [id number] -Topical Lidocaine (%) 4 -Bleeding Controlled with Pressure -Treatment Response Procedure Tolerated Well #5 LLE Post -Time 10:37 -Correct Patient Yes -Correct Side, Site, Position Yes -Correct Procedure Yes -Procedure Performed Yes -Type of Procedure Debridement -Clinical Debridement Subcutaneous -Post Debridement Size (cm) - Length 8.4 -Post Debridement Size (cm) - Width 1.9 -Post Debridement Size (cm) - Depth 0.3 -Total Square Cm 15.96 -Wound/Ulcer Outcome Not Healed -Ulcer Cleansing Rinsed/ Irrigated with Saline -Foul Odor after Cleansing No -Bioengineered Tissue Yes -Type of bioengineered Tissue [id number] -Expiration Date 09/14/19 -Product Lot Number [id number] -Percent Used 100 -Saline Lot Number [id number] -Topical Lidocaine (%) 4 -Bleeding Controlled with Pressure -Treatment Response Procedure Tolerated Well Pain Scale: 0-10 Numeric Is Patient Pain Free? Yes Wound debrided: L anterior christensen Type of Debridement: Excisional debridement Anesthesia Used: 5% Lidocaine Gel Depth: Down to and including healthy tissue, in the subcutaneous layer Percentage of wound debrided: 100 Instrument Used: 5mm curette Tissue Removed: slough and fibrin Severity: Limited To Skin Breakdown Amount of bleeding with debridement: Mild Bleeding Controlled with: Compression and gauze Patient tolerated procedure well - Additional Wound Wound debrided: L posterior christensen Type of Debridement: Excisional debridement Anesthesia Used: 5% Lidocaine Gel Depth: Down to and including healthy tissue, in the subcutaneous layer Percentage of wound debrided: 100 Instrument Used: 5mm curette Tissue Removed: slough devitalized tissue Severity: Limited To Skin Breakdown Amount of bleeding with debridement: Mild Bleeding Controlled with: Compression and gauze Patient tolerated procedure: Patient tolerated procedure well Assessment/Plan Active Problems Skin ulcer of lower leg with necrosis of muscle (Chronic) 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 Cellulitis,. Bilateral lower leg edema swelling excessively in the left leg. Left lower leg ulcer-. Infection left lower leg ulcer. 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 Atrial fib to onset. Peripheral vascular disease Plan: Use Hibiclens wash around bilateral lower leg ulcers. TAught patient to decolonized self for the MRSA. posterior ulcers apply #4 puraply moistened with hydrogel veil gauze and Sanjuana. Anterior ulcer #4 puraply with hydrogel Veil over top Steri-Strips gauze dressing. Continue the double layer Tubigrip to bilateral lower legs. Follow-up in [address] restrepo and infectious disease. Nursing notes reviewed
--- NOTE | 2018-01-22 13:57 | PN.PCM_ITS ---
(1) Infected open wound Status: Acute Current Visit: No Code(s): T14.8XXA - Other injury of unspecified body region, initial encounter; L08.9 - Local infection of the skin and subcutaneous tissue, unspecified (2) Nonhealing ulcer of left lower leg Status: Acute Current Visit: No Code(s): L97.829 - Non-pressure chronic ulcer of other part of left lower leg with unspecified severity (3) Bilateral edema of lower extremity Status: Chronic Current Visit: Yes Code(s): R60.0 - Localized edema (4) Chronic atrial fibrillation Status: Chronic Current Visit: No Code(s): I48.2 - Chronic atrial fibrillation (5) Neuropathic pain, leg, bilateral Status: Chronic Current Visit: No Code(s): G57.91 - Unspecified mononeuropathy of right lower limb; G57.92 - Unspecified mononeuropathy of left lower limb Type of Wound Date of Service: 02/02/18 Chief Complaint: Follow-up on bilateral lower leg ulcers History of Wound: 77-year-old white male who had surgery with Dr. 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 Apparently unbeknown to him he developed some open areas on the left lower leg and neglected them. Now he has very large deep ulcers with necrotic tissue and smell on the left lower leg anterior and posterior leg. Patient has been using his Aquacel silver on it. And not wearing his stockings or compression. There is a lot of edema and redness and cellulitis. Progress of Wound: The left anterior and posterior open ulcers are slightlysmaller with no odor, the puraply rep states it pulls the bad out. 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 Xrays show no osteomylitis but soft tissue swelling . He has been taking antibiotic therapy for that plus and antimicrobial but did not show any anaerobes in his ulcer. The left total leg length is much improved. Patient states his primary care doctor gave him a better medication for decreasing edema. Patient states unable to tolerate the Brandon wraps over the Tubigrip's . Ultrsound showed no blood clot in his left leg. Patient was approved for puraply #3 was applied today to the anterior ulcer and posterior ulcer too. It is medically necessary for him to either use the substitute skin or we will be looking at a skin graft. We will also consult Dr. Restrepo and infectious disease to just make sure that there is nothing else that we could possibly do we will continue with our treatment plan and continue with consults to see if he would be open for graft because of the depth of the ulcer. His history of coxsackie a virus he still goes in a congestive heart failure he is BNP was over 500 his pre-albumin was 22 his regular albumin his blood was within normal limits shows some slight anemia on labs suggested he take iron. 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 Forced elevating legs eating more meat to improve his healing. - Physical Exam Vital Signs Temp Pulse Resp BP 96.8 F L 100 18 118/74 01/19/18 09:52 01/19/18 09:52 01/19/18 09:52 01/19/18 09:52 General: Oriented x3, Cooperative, Well developed HEENT: Atraumatic, PERRLA Oral: Moist Mucosa Neck: Supple, No JVD Lungs: Clear to auscultation, Normal air movement Cardiovascular: Regular rate, Regular Rhythm Abdomen: Bowel Sounds Present, Soft, Non Tender, No Hepato-splenomegaly Extremities: No clubbing, No edema Skin: Ulcer/ Wound - L lower leg upcer anterior and posterior Musculoskeletal: No Tenderness to Palpation of Joints or Extremities Lymphatic: No Cervical, Supraclavicular, or Inguinal Adenopathy Neurological: Cranial nerves II-XII grossly intact, Neuro grossly intact Psych/Mental Status: Normal Affect, Appropriate, Alert and oriented to time, place, person, mood and affect Debridement Note Post-Debridement Measurements/Treatment WC - Nurse 2 - General Ulcer CM Notes Start: 01/19/18 09:52 Freq: Status: Active Protocol: Activity Type Activity Date Activity User E-Sign Co-Sign Detail Recorded Client Recorded Date Recorded By Document 01/19/18 10:28 DV [id number] 01/19/18 10:50 DV 01/19/18 10:28 Wound Center Nurse 2 #6 L Christensen -Time 10:29 -Correct Patient Yes -Correct Side, Site, Position Yes -Correct Procedure Yes -Procedure Performed Yes -Type of Procedure Debridement -Clinical Debridement Subcutaneous -Post Debridement Size (cm) - Length 9.2 -Post Debridement Size (cm) - Width 5.2 -Post Debridement Size (cm) - Depth 0.7 -Total Square Cm 47.84 -Wound/Ulcer Outcome Not Healed -Ulcer Cleansing Rinsed/ Irrigated with Saline -Foul Odor after Cleansing No -Bioengineered Tissue Yes -Type of bioengineered Tissue [id number] -Expiration Date 09/14/19 -Product Lot Number [id number] -Percent Used 100 -Saline Lot Number [id number] -Topical Lidocaine (%) 4 -Bleeding Controlled with Pressure -Treatment Response Procedure Tolerated Well #5 LLE Post -Time 10:37 -Correct Patient Yes -Correct Side, Site, Position Yes -Correct Procedure Yes -Procedure Performed Yes -Type of Procedure Debridement -Clinical Debridement Subcutaneous -Post Debridement Size (cm) - Length 8.4 -Post Debridement Size (cm) - Width 1.9 -Post Debridement Size (cm) - Depth 0.3 -Total Square Cm 15.96 -Wound/Ulcer Outcome Not Healed -Ulcer Cleansing Rinsed/ Irrigated with Saline -Foul Odor after Cleansing No -Bioengineered Tissue Yes -Type of bioengineered Tissue [id number] -Expiration Date 09/14/19 -Product Lot Number [id number] -Percent Used 100 -Saline Lot Number [id number] -Topical Lidocaine (%) 4 -Bleeding Controlled with Pressure -Treatment Response Procedure Tolerated Well Pain Scale: 0-10 Numeric Is Patient Pain Free? Yes Wound debrided: L anterior christensen Type of Debridement: Excisional debridement Anesthesia Used: 5% Lidocaine Gel Depth: Down to and including healthy tissue, in the subcutaneous layer Percentage of wound debrided: 100 Instrument Used: 5mm curette Tissue Removed: slough and fibrin Severity: Limited To Skin Breakdown Amount of bleeding with debridement: Mild Bleeding Controlled with: Compression and gauze Patient tolerated procedure well - Additional Wound Wound debrided: L posterior christensen Type of Debridement: Excisional debridement Anesthesia Used: 5% Lidocaine Gel Depth: Down to and including healthy tissue, in the subcutaneous layer Percentage of wound debrided: 100 Instrument Used: 5mm curette Tissue Removed: slough devitalized tissue Severity: Limited To Skin Breakdown Amount of bleeding with debridement: Mild Bleeding Controlled with: Compression and gauze Patient tolerated procedure: Patient tolerated procedure well Assessment/Plan Active Problems Skin ulcer of lower leg with necrosis of muscle (Chronic) 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 Cellulitis,. Bilateral lower leg edema swelling excessively in the left leg. Left lower leg ulcer-. Infection left lower leg ulcer. 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 Atrial fib to onset. Peripheral vascular disease Plan: Use Hibiclens wash around bilateral lower leg ulcers. TAught patient to decolonized self for the MRSA. posterior ulcers apply #4 puraply moistened with hydrogel veil gauze and Sanjuana. Anterior ulcer #4 puraply with hydrogel Veil over top Steri-Strips gauze dressing. Continue the double layer Tubigrip to bilateral lower legs. Follow-up in [address] restrepo and infectious disease. Nursing notes reviewed
[2018-01-26 14:07] VITALS: BP 100/64; PULSE 92; RESP 18; TEMP 36.1; BMI 65.4
--- NOTE | 2018-01-26 15:40 | PCM.WC.PN ---
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 Status: Chronic Current Visit: Yes Code(s): L97.902 - Non-pressure chronic ulcer of unspecified part of unspecified lower leg with fat layer exposed (3) Bilateral edema of lower extremity Status: Chronic Current Visit: Yes Code(s): R60.0 - Localized edema (4) Pain, lower extremity Status: Chronic Current Visit: Yes Qualifiers: Laterality: left Qualified Code(s): M79.605 - Pain in left leg (5) Peripheral vascular disease of extremity with claudication Status: Chronic Current Visit: Yes Code(s): I73.9 - Peripheral vascular disease, unspecified Type of Wound Date of Service: 01/28/18 Chief Complaint: Follow-up on left leg ulcers History of Wound: 77-year-old white male who had surgery with Dr. Maloney in July for his small vessel occlusions in the left lower leg return to clinic today. He is recently been seen at the wound care center by nurse practitioner Vale. His wound was cultured and he dedrick out multiple organisms. He was started on antibiotics and pure apply was applied to stimulate healing and to address his bioburden. He denies leg or wound pain. He denies fever, chill, nausea, vomiting. He had previous vascular disease and was seen by Dr. Maloney. He does not remember exactly what he had done. He takes equate nutritional supplements daily. He reports he does also have a follow-up consultation with plastic surgery within the next month and a half. I am covering for nurse practitioner, Vale, today. Progress of Wound: stable - Physical Exam Vital Signs Temp Pulse Resp BP 96.9 F L 92 18 100/64 01/26/18 14:07 01/26/18 14:07 01/26/18 14:07 01/26/18 14:07 General: Alert, Oriented x3, Cooperative Extremities: No cyanosis, Capillary Refill Less than 3 Seconds, No Calf Tenderness - Negative Travon and Araya sign bilateral, Diminished Peripheral Pulses, Edema Skin: Ulcer/ Wound - No purulence, no erythema, streaking, no odor, no acute signs of infection. The left christensen bone and also exposed tendon and muscle bellies to the anterior lateral area. His skin has no hair and is very atrophic. There is no eschar or necrosis. The posterior left leg wound is granular base with minimal fibrous tissue noted. Wound Measurements and Assessment WC - Nurse 1 - General Ulcer Measurement Start: 01/19/18 09:52 Freq: Status: Active Protocol: Activity Type Activity Date Activity User E-Sign Co-Sign Detail Recorded Client Recorded Date Recorded By Document 01/26/18 14:07 MW [id number] 01/26/18 14:19 MW 01/26/18 14:07 Wound Center Nurse 1 [Ulcer Assessment] #6 L Christensen -Combined with other wound No -Current Size (cm) - Length 8.4 -Current Size (cm) - Width 4.6 -Current Size (cm) - Depth 0.6 -Total Square Cm 38.64 -Photo Taken No -Epithelialization None Present -Tunneling No -Undermining/Tunneling No -Circular Undermining No -Exudate Amt Medium (34-66%) -Exudate Type Serosanguineous -Wound Margin Distinct, Outline Attached -Granulation Amt None Present (0 %) -Granulation Quality N/A -Slough/Fibrin Yes -Necrosis Amt Large (67-100%) -Necrotic Tissue Type Adherent Slough -Structure Exposed N/A -Texture (Cyndy-wound Skin Appearance) Assessed Localized Edema Scarring -Moisture (Cyndy-wound Skin Appearance Assessed ) Dry/Scaly -Color (Cyndy-wound Skin Appearance) Assessed Rubor -Temperature (Cyndy-wound Skin No Abnormality Appearance) (Pt Warm) -Tenderness on Palpation (Cyndy-wound Yes Skin Appearance) -Ulcer Cleansing Rinsed/ Irrigated with Saline -Foul Odor after Cleansing No -Anesthetic Used 4% Lidocaine Solution 5% Lidocaine Gel #5 LLE Post -Combined with other wound No -Current Size (cm) - Length 7.5 -Current Size (cm) - Width 4.0 -Current Size (cm) - Depth 0.3 -Total Square Cm 30.00 -Photo Taken No -Epithelialization None Present -Tunneling No -Undermining/Tunneling No -Circular Undermining No -Exudate Amt Medium (34-66%) -Exudate Type Serosanguineous -Wound Margin Distinct, Outline Attached -Granulation Amt None Present (0 %) -Granulation Quality N/A -Slough/Fibrin Yes -Necrosis Amt Large (67-100%) -Necrotic Tissue Type Adherent Slough -Structure Exposed N/A -Texture (Cyndy-wound Skin Appearance) Assessed Localized Edema Scarring -Moisture (Cyndy-wound Skin Appearance Assessed ) Dry/Scaly -Color (Cyndy-wound Skin Appearance) Assessed Rubor -Temperature (Cyndy-wound Skin No Abnormality Appearance) (Pt Warm) -Tenderness on Palpation (Cyndy-wound Yes Skin Appearance) -Ulcer Cleansing Rinsed/ Irrigated with Saline -Foul Odor after Cleansing No -Anesthetic Used 4% Lidocaine Solution 5% Lidocaine Gel [Edema Assessment] -Lower Limb Edema Present Yes -Left Calf (cm) 41.0 -Left Ankle (cm) 25.0 WC - Nurse 2 - General Ulcer CM Notes Start: 01/19/18 09:52 Freq: Status: Active Protocol: Activity Type Activity Date Activity User E-Sign Co-Sign Detail Recorded Client Recorded Date Recorded By Document 01/26/18 14:42 [id number] 01/26/18 15:06 01/26/18 14:42 Wound Center Nurse 2 [Procedure/Treatment] #6 L Christensen -Time 14:46 -Correct Patient Yes -Correct Side, Site, Position Yes -Correct Procedure Yes -Procedure Performed Yes -Type of Procedure Debridement -Clinical Debridement Subcutaneous -Post Debridement Size (cm) - Length 8.5 -Post Debridement Size (cm) - Width 4.7 -Post Debridement Size (cm) - Depth 0.6 -Total Square Cm 39.95 -Wound/Ulcer Outcome Not Healed -Ulcer Cleansing Rinsed/ Irrigated with Saline -Foul Odor after Cleansing No -Bioengineered Tissue Yes -Type of bioengineered Tissue EPIFIX -Expiration Date 10/19/22 -Product Lot Number [id number] -Percent Used 50 -Saline Lot Number [id number] -Topical Lidocaine (%) 5 -Bleeding Controlled with Pressure -Treatment Response Procedure Tolerated Well #5 LLE Post -Time 14:46 -Correct Patient Yes -Correct Side, Site, Position Yes -Correct Procedure Yes -Procedure Performed Yes -Type of Procedure Debridement -Clinical Debridement Subcutaneous -Post Debridement Size (cm) - Length 7.6 -Post Debridement Size (cm) - Width 4.1 -Post Debridement Size (cm) - Depth 0.3 -Total Square Cm 31.16 -Wound/Ulcer Outcome Not Healed -Ulcer Cleansing Rinsed/ Irrigated with Saline -Foul Odor after Cleansing No -Bioengineered Tissue No -Expiration Date 10/19/22 -Product Lot Number [id number] -Percent Used 50 -Saline Lot Number [id number] -Topical Lidocaine (%) 5 -Bleeding Controlled with Pressure -Treatment Response Procedure Tolerated Well [See Physician Procedure note for Specifics] Pain Scale: 0-10 Numeric [Pain] -Is Patient Pain Free? Yes Musculoskeletal: No Tenderness to Palpation of Joints or Extremities, Muscle Wasting, Tenderness - No pain with wound manipulation left leg Neurological: - - Lack of epicritic sensation light touch Psych/Mental Status: Normal Affect, Appropriate Debridement Note Post-Debridement Measurements/Treatment WC - Nurse 2 - General Ulcer CM Notes Start: 01/19/18 09:52 Freq: Status: Active Protocol: Activity Type Activity Date Activity User E-Sign Co-Sign Detail Recorded Client Recorded Date Recorded By Document 01/19/18 10:28 DV [id number] 01/19/18 10:50 DV Document 01/26/18 14:42 TM [id number] 01/26/18 15:06 TM 01/19/18 01/26/18 10:28 14:42 Wound Center Nurse 2 #6 L Christensen -Time 10:29 14:46 -Correct Patient Yes Yes -Correct Side, Site, Position Yes Yes -Correct Procedure Yes Yes -Procedure Performed Yes Yes -Type of Procedure Debridement Debridement -Clinical Debridement Subcutaneous Subcutaneous -Post Debridement Size (cm) - Length 9.2 8.5 -Post Debridement Size (cm) - Width 5.2 4.7 -Post Debridement Size (cm) - Depth 0.7 0.6 -Total Square Cm 47.84 39.95 -Wound/Ulcer Outcome Not Healed Not Healed -Ulcer Cleansing Rinsed/ Rinsed/ Irrigated with Irrigated with Saline Saline -Foul Odor after Cleansing No No -Bioengineered Tissue Yes Yes -Type of bioengineered Tissue [id number] EPIFIX -Expiration Date 09/14/19 10/19/22 -Product Lot Number [id number] -Percent Used 100 50 -Saline Lot Number [id number] -Topical Lidocaine (%) 4 5 -Bleeding Controlled with Pressure Pressure -Treatment Response Procedure Procedure Tolerated Well Tolerated Well #5 LLE Post -Time 10:37 14:46 -Correct Patient Yes Yes -Correct Side, Site, Position Yes Yes -Correct Procedure Yes Yes -Procedure Performed Yes Yes -Type of Procedure Debridement Debridement -Clinical Debridement Subcutaneous Subcutaneous -Post Debridement Size (cm) - Length 8.4 7.6 -Post Debridement Size (cm) - Width 1.9 4.1 -Post Debridement Size (cm) - Depth 0.3 0.3 -Total Square Cm 15.96 31.16 -Wound/Ulcer Outcome Not Healed Not Healed -Ulcer Cleansing Rinsed/ Rinsed/ Irrigated with Irrigated with Saline Saline -Foul Odor after Cleansing No No -Bioengineered Tissue Yes No -Type of bioengineered Tissue [id number] -Expiration Date 09/14/19 10/19/22 -Product Lot Number [id number] -Percent Used 100 50 -Saline Lot Number [id number] -Topical Lidocaine (%) 4 5 -Bleeding Controlled with Pressure Pressure -Treatment Response Procedure Procedure Tolerated Well Tolerated Well Pain Scale: 0-10 Numeric Is Patient Pain Free? Yes Yes Wound debrided: leg anterior Laterality: Left Type of Debridement: Excisional debridement Anesthesia Used: 4% Lidocaine Solution Depth: in the subcutaneous layer Percentage of wound debrided: 100 Instrument Used: #15 blade Tissue Removed: fibrous, devitalized subcutaneous, biofilm, slough Severity: Fat Layer Exposed - Subcutaneous tissue was debrided. There was exposed muscle and bone and these items were not debrided today Bleeding Controlled with: Pressure Patient tolerated procedure well - Additional Wound Wound debrided: leg posterior Laterality: Left Type of Debridement: Excisional debridement Anesthesia Used: 5% Lidocaine Gel Depth: in the subcutaneous layer Percentage of wound debrided: 100 Instrument Used: #15 blade, 3-12 blade Tissue Removed: fibrous, devitalized subcutaneous, biofilm, slough Severity: Fat Layer Exposed Amount of bleeding with debridement: Mild Bleeding Controlled with: Pressure Patient tolerated procedure: Patient tolerated procedure well Assessment/Plan Active Problems 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 Left leg ulcer with muscle and bone exposed. left lower leg edema. Cellulitis resolving. 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 Atrial fib to onset Plan: I reviewed and discussed his case today. Subcutaneous excisional ulcer debridement was performed as noted in the clinical panel. He appears to be responding well to his MRSA decolonization, Hibiclens wash, antibiotics, and multiple applications of antimicrobial collagen dressing (puraply). Verbal consent was obtained for application of epi fix today to the anterior christensen. The indications and healing expectations were discussed. He tolerated this well. The advanced wound care product was secured in place with Steri-Strips and wound veil. He was advised to keep this clean dry and intact until follow-up visit next week. Sangeeta was applied to the posterior leg wound and he was advised to change this every 1-2 days. To continue light compression, Tubigrip. I reviewed his venous Doppler evaluation which did not demonstrate greater saphenous vein reflux or deep venous thrombosis. We reviewed and discussed his peripheral vascular disease status. His noninvasive vascular studies from 2016 did demonstrate an PEREZ in the left lower extremity of 0.5 to and evidence of multi segment disease. He relates he was seen and treated by Dr. Maloney. I will request his medical records to see exactly which intervention has been performed. He understands additional follow-up will be likely. His x-rays from January 14, 2018 were reviewed without any acute fracture, dislocation, foreign body, soft tissue emphysema, periosteal reaction adjacent to the wound bed, other periosteal or bone destruction. 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 Infectious disease input will be appreciated. His previous lab work from September 2017 was reviewed with a white blood cell count of 7.0, creatinine 1.31, prealbumin of 22.3. I recommend additional screening with ESR and C-reactive protein. Recommend nutritional supplementation with Napoleon which has amino acids and collagen protein which optimize healing. A prescription is provided. I recommend improve immobilization of this wound site with a tall cam walker boot. I can see the tendon moving and gliding freely within the wound bed and will be difficult to epithelialize over this moving structure. A prescription was provided and I advised he avoid tight strap placement directly over the wound bed. I see he has a plastic surgery consultation scheduled within the next 6 weeks. I recommended advanced techniques. I offered him application of additional advanced wound care products in the operating room within the next couple of weeks if we can get this scheduled. I will review the case with Dr. Restrepo to see if he had any other free flap, muscle flap, or other advanced technique surgical treatment options. Otherwise, I will proceed with debridement, application of advanced wound care products such as Amniofil or epi cord if preapproved, and application of wound VAC. This can be done under local anesthetic. He understands an H&P will need to be completed as well as additional lab work. Follow-up in 1 week at the wound care center. To call sooner if he has any questions or concerns.
--- NOTE | 2018-01-26 15:43 | PN.PCM_ITS ---
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 Status: Chronic Current Visit: Yes Code(s): L97.902 - Non-pressure chronic ulcer of unspecified part of unspecified lower leg with fat layer exposed (3) Bilateral edema of lower extremity Status: Chronic Current Visit: Yes Code(s): R60.0 - Localized edema (4) Pain, lower extremity Status: Chronic Current Visit: Yes Qualifiers: Laterality: left Qualified Code(s): M79.605 - Pain in left leg (5) Peripheral vascular disease of extremity with claudication Status: Chronic Current Visit: Yes Code(s): I73.9 - Peripheral vascular disease, unspecified Type of Wound Date of Service: 01/28/18 Chief Complaint: Follow-up on left leg ulcers History of Wound: 77-year-old white male who had surgery with Dr. Maloney in July for his small vessel occlusions in the left lower leg return to clinic today. He is recently been seen at the wound care center by nurse practitioner Vale. His wound was cultured and he dedrick out multiple organisms. He was started on antibiotics and pure apply was applied to stimulate healing and to address his bioburden. He denies leg or wound pain. He denies fever, chill, nausea, vomiting. He had previous vascular disease and was seen by Dr. Maloney. He does not remember exactly what he had done. He takes equate nutritional supplements daily. He reports he does also have a follow-up consultation with plastic surgery within the next month and a half. I am covering for nurse practitioner, Vale, today. Progress of Wound: stable - Physical Exam Vital Signs Temp Pulse Resp BP 96.9 F L 92 18 100/64 01/26/18 14:07 01/26/18 14:07 01/26/18 14:07 01/26/18 14:07 General: Alert, Oriented x3, Cooperative Extremities: No cyanosis, Capillary Refill Less than 3 Seconds, No Calf Tenderness - Negative Travon and Araya sign bilateral, Diminished Peripheral Pulses, Edema Skin: Ulcer/ Wound - No purulence, no erythema, streaking, no odor, no acute signs of infection. The left christensen bone and also exposed tendon and muscle bellies to the anterior lateral area. His skin has no hair and is very atrophic. There is no eschar or necrosis. The posterior left leg wound is granular base with minimal fibrous tissue noted. Wound Measurements and Assessment WC - Nurse 1 - General Ulcer Measurement Start: 01/19/18 09:52 Freq: Status: Active Protocol: Activity Type Activity Date Activity User E-Sign Co-Sign Detail Recorded Client Recorded Date Recorded By Document 01/26/18 14:07 MW [id number] 01/26/18 14:19 MW 01/26/18 14:07 Wound Center Nurse 1 [Ulcer Assessment] #6 L Christensen -Combined with other wound No -Current Size (cm) - Length 8.4 -Current Size (cm) - Width 4.6 -Current Size (cm) - Depth 0.6 -Total Square Cm 38.64 -Photo Taken No -Epithelialization None Present -Tunneling No -Undermining/Tunneling No -Circular Undermining No -Exudate Amt Medium (34-66%) -Exudate Type Serosanguineous -Wound Margin Distinct, Outline Attached -Granulation Amt None Present (0 %) -Granulation Quality N/A -Slough/Fibrin Yes -Necrosis Amt Large (67-100%) -Necrotic Tissue Type Adherent Slough -Structure Exposed N/A -Texture (Cyndy-wound Skin Appearance) Assessed Localized Edema Scarring -Moisture (Cyndy-wound Skin Appearance Assessed ) Dry/Scaly -Color (Cyndy-wound Skin Appearance) Assessed Rubor -Temperature (Cyndy-wound Skin No Abnormality Appearance) (Pt Warm) -Tenderness on Palpation (Cyndy-wound Yes Skin Appearance) -Ulcer Cleansing Rinsed/ Irrigated with Saline -Foul Odor after Cleansing No -Anesthetic Used 4% Lidocaine Solution 5% Lidocaine Gel #5 LLE Post -Combined with other wound No -Current Size (cm) - Length 7.5 -Current Size (cm) - Width 4.0 -Current Size (cm) - Depth 0.3 -Total Square Cm 30.00 -Photo Taken No -Epithelialization None Present -Tunneling No -Undermining/Tunneling No -Circular Undermining No -Exudate Amt Medium (34-66%) -Exudate Type Serosanguineous -Wound Margin Distinct, Outline Attached -Granulation Amt None Present (0 %) -Granulation Quality N/A -Slough/Fibrin Yes -Necrosis Amt Large (67-100%) -Necrotic Tissue Type Adherent Slough -Structure Exposed N/A -Texture (Cyndy-wound Skin Appearance) Assessed Localized Edema Scarring -Moisture (Cyndy-wound Skin Appearance Assessed ) Dry/Scaly -Color (Cyndy-wound Skin Appearance) Assessed Rubor -Temperature (Cyndy-wound Skin No Abnormality Appearance) (Pt Warm) -Tenderness on Palpation (Cyndy-wound Yes Skin Appearance) -Ulcer Cleansing Rinsed/ Irrigated with Saline -Foul Odor after Cleansing No -Anesthetic Used 4% Lidocaine Solution 5% Lidocaine Gel [Edema Assessment] -Lower Limb Edema Present Yes -Left Calf (cm) 41.0 -Left Ankle (cm) 25.0 WC - Nurse 2 - General Ulcer CM Notes Start: 01/19/18 09:52 Freq: Status: Active Protocol: Activity Type Activity Date Activity User E-Sign Co-Sign Detail Recorded Client Recorded Date Recorded By Document 01/26/18 14:42 [id number] 01/26/18 15:06 01/26/18 14:42 Wound Center Nurse 2 [Procedure/Treatment] #6 L Christensen -Time 14:46 -Correct Patient Yes -Correct Side, Site, Position Yes -Correct Procedure Yes -Procedure Performed Yes -Type of Procedure Debridement -Clinical Debridement Subcutaneous -Post Debridement Size (cm) - Length 8.5 -Post Debridement Size (cm) - Width 4.7 -Post Debridement Size (cm) - Depth 0.6 -Total Square Cm 39.95 -Wound/Ulcer Outcome Not Healed -Ulcer Cleansing Rinsed/ Irrigated with Saline -Foul Odor after Cleansing No -Bioengineered Tissue Yes -Type of bioengineered Tissue EPIFIX -Expiration Date 10/19/22 -Product Lot Number [id number] -Percent Used 50 -Saline Lot Number [id number] -Topical Lidocaine (%) 5 -Bleeding Controlled with Pressure -Treatment Response Procedure Tolerated Well #5 LLE Post -Time 14:46 -Correct Patient Yes -Correct Side, Site, Position Yes -Correct Procedure Yes -Procedure Performed Yes -Type of Procedure Debridement -Clinical Debridement Subcutaneous -Post Debridement Size (cm) - Length 7.6 -Post Debridement Size (cm) - Width 4.1 -Post Debridement Size (cm) - Depth 0.3 -Total Square Cm 31.16 -Wound/Ulcer Outcome Not Healed -Ulcer Cleansing Rinsed/ Irrigated with Saline -Foul Odor after Cleansing No -Bioengineered Tissue No -Expiration Date 10/19/22 -Product Lot Number [id number] -Percent Used 50 -Saline Lot Number [id number] -Topical Lidocaine (%) 5 -Bleeding Controlled with Pressure -Treatment Response Procedure Tolerated Well [See Physician Procedure note for Specifics] Pain Scale: 0-10 Numeric [Pain] -Is Patient Pain Free? Yes Musculoskeletal: No Tenderness to Palpation of Joints or Extremities, Muscle Wasting, Tenderness - No pain with wound manipulation left leg Neurological: - - Lack of epicritic sensation light touch Psych/Mental Status: Normal Affect, Appropriate Debridement Note Post-Debridement Measurements/Treatment WC - Nurse 2 - General Ulcer CM Notes Start: 01/19/18 09:52 Freq: Status: Active Protocol: Activity Type Activity Date Activity User E-Sign Co-Sign Detail Recorded Client Recorded Date Recorded By Document 01/19/18 10:28 DV [id number] 01/19/18 10:50 DV Document 01/26/18 14:42 TM [id number] 01/26/18 15:06 TM 01/19/18 01/26/18 10:28 14:42 Wound Center Nurse 2 #6 L Christensen -Time 10:29 14:46 -Correct Patient Yes Yes -Correct Side, Site, Position Yes Yes -Correct Procedure Yes Yes -Procedure Performed Yes Yes -Type of Procedure Debridement Debridement -Clinical Debridement Subcutaneous Subcutaneous -Post Debridement Size (cm) - Length 9.2 8.5 -Post Debridement Size (cm) - Width 5.2 4.7 -Post Debridement Size (cm) - Depth 0.7 0.6 -Total Square Cm 47.84 39.95 -Wound/Ulcer Outcome Not Healed Not Healed -Ulcer Cleansing Rinsed/ Rinsed/ Irrigated with Irrigated with Saline Saline -Foul Odor after Cleansing No No -Bioengineered Tissue Yes Yes -Type of bioengineered Tissue [id number] EPIFIX -Expiration Date 09/14/19 10/19/22 -Product Lot Number [id number] -Percent Used 100 50 -Saline Lot Number [id number] -Topical Lidocaine (%) 4 5 -Bleeding Controlled with Pressure Pressure -Treatment Response Procedure Procedure Tolerated Well Tolerated Well #5 LLE Post -Time 10:37 14:46 -Correct Patient Yes Yes -Correct Side, Site, Position Yes Yes -Correct Procedure Yes Yes -Procedure Performed Yes Yes -Type of Procedure Debridement Debridement -Clinical Debridement Subcutaneous Subcutaneous -Post Debridement Size (cm) - Length 8.4 7.6 -Post Debridement Size (cm) - Width 1.9 4.1 -Post Debridement Size (cm) - Depth 0.3 0.3 -Total Square Cm 15.96 31.16 -Wound/Ulcer Outcome Not Healed Not Healed -Ulcer Cleansing Rinsed/ Rinsed/ Irrigated with Irrigated with Saline Saline -Foul Odor after Cleansing No No -Bioengineered Tissue Yes No -Type of bioengineered Tissue [id number] -Expiration Date 09/14/19 10/19/22 -Product Lot Number [id number] -Percent Used 100 50 -Saline Lot Number [id number] -Topical Lidocaine (%) 4 5 -Bleeding Controlled with Pressure Pressure -Treatment Response Procedure Procedure Tolerated Well Tolerated Well Pain Scale: 0-10 Numeric Is Patient Pain Free? Yes Yes Wound debrided: leg anterior Laterality: Left Type of Debridement: Excisional debridement Anesthesia Used: 4% Lidocaine Solution Depth: in the subcutaneous layer Percentage of wound debrided: 100 Instrument Used: #15 blade Tissue Removed: fibrous, devitalized subcutaneous, biofilm, slough Severity: Fat Layer Exposed - Subcutaneous tissue was debrided. There was exposed muscle and bone and these items were not debrided today Bleeding Controlled with: Pressure Patient tolerated procedure well - Additional Wound Wound debrided: leg posterior Laterality: Left Type of Debridement: Excisional debridement Anesthesia Used: 5% Lidocaine Gel Depth: in the subcutaneous layer Percentage of wound debrided: 100 Instrument Used: #15 blade, 3-12 blade Tissue Removed: fibrous, devitalized subcutaneous, biofilm, slough Severity: Fat Layer Exposed Amount of bleeding with debridement: Mild Bleeding Controlled with: Pressure Patient tolerated procedure: Patient tolerated procedure well Assessment/Plan Active Problems 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 Left leg ulcer with muscle and bone exposed. left lower leg edema. Cellulitis resolving. 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 Atrial fib to onset Plan: I reviewed and discussed his case today. Subcutaneous excisional ulcer debridement was performed as noted in the clinical panel. He appears to be responding well to his MRSA decolonization, Hibiclens wash, antibiotics, and multiple applications of antimicrobial collagen dressing (puraply). Verbal consent was obtained for application of epi fix today to the anterior christensen. The indications and healing expectations were discussed. He tolerated this well. The advanced wound care product was secured in place with Steri-Strips and wound veil. He was advised to keep this clean dry and intact until follow- up visit next week. Sangeeta was applied to the posterior leg wound and he was advised to change this every 1-2 days. To continue light compression, Tubigrip. I reviewed his venous Doppler evaluation which did not demonstrate greater saphenous vein reflux or deep venous thrombosis. We reviewed and discussed his peripheral vascular disease status. His noninvasive vascular studies from 2016 did demonstrate an PEREZ in the left lower extremity of 0.5 to and evidence of multi segment disease. He relates he was seen and treated by Dr. Maloney. I will request his medical records to see exactly which intervention has been performed. He understands additional follow-up will be likely. His x-rays from January 14, 2018 were reviewed without any acute fracture , dislocation, foreign body, soft tissue emphysema, periosteal reaction adjacent to the wound bed, other periosteal or bone destruction. 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 Infectious disease input will be appreciated. His previous lab work from September 2017 was reviewed with a white blood cell count of 7.0, creatinine 1.31, prealbumin of 22.3. I recommend additional screening with ESR and C-reactive protein. Recommend nutritional supplementation with Napoleon which has amino acids and collagen protein which optimize healing. A prescription is provided. I recommend improve immobilization of this wound site with a tall cam walker boot. I can see the tendon moving and gliding freely within the wound bed and will be difficult to epithelialize over this moving structure. A prescription was provided and I advised he avoid tight strap placement directly over the wound bed. I see he has a plastic surgery consultation scheduled within the next 6 weeks. I recommended advanced techniques. I offered him application of additional advanced wound care products in the operating room within the next couple of weeks if we can get this scheduled. I will review the case with Dr. Restrepo to see if he had any other free flap, muscle flap, or other advanced technique surgical treatment options. Otherwise, I will proceed with debridement, application of advanced wound care products such as Amniofil or epi cord if preapproved, and application of wound VAC. This can be done under local anesthetic. He understands an H&P will need to be completed as well as additional lab work. Follow-up in 1 week at the wound care center. To call sooner if he has any questions or concerns.
[2018-02-02 08:48] VITALS: BP 101/60; PULSE 105; RESP 20; TEMP 36.7; BMI 65.4
--- NOTE | 2018-02-02 10:50 | PCM.WC.PN ---
(1) Infected open wound Status: Acute Current Visit: Yes Code(s): T14.8XXA - Other injury of unspecified body region, initial encounter; L08.9 - Local infection of the skin and subcutaneous tissue, unspecified (2) Nonhealing ulcer of left lower leg Status: Acute Current Visit: Yes Code(s): L97.829 - Non-pressure chronic ulcer of other part of left lower leg with unspecified severity (3) Bilateral edema of lower extremity Status: Chronic Current Visit: Yes Code(s): R60.0 - Localized edema (4) Chronic atrial fibrillation Status: Chronic Current Visit: Yes Code(s): I48.2 - Chronic atrial fibrillation (5) Neuropathic pain, leg, bilateral Status: Chronic Current Visit: Yes Code(s): G57.91 - Unspecified mononeuropathy of right lower limb; G57.92 - Unspecified mononeuropathy of left lower limb (6) 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 Status: Acute Current Visit: Yes Code(s): L97.922 - Non-pressure chronic ulcer of unspecified part of left lower leg with fat layer exposed Type of Wound Date of Service: 02/02/18 Chief Complaint: Follow-up on bilateral lower leg ulcers History of Wound: 77-year-old white male who had surgery with Dr. 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 Apparently unbeknown to him he developed some open areas on the left lower leg and neglected them. Now he has very large deep ulcers with necrotic tissue and smell on the left lower leg anterior and posterior leg. Patient has been using his Aquacel silver on it. And not wearing his stockings or compression. There is a lot of edema and redness and cellulitis. Progress of Wound: The left anterior and posterior open ulcers are the same with no odor, the puraply rep states it pulls the bad out. 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 Xrays show no osteomylitis but soft tissue swelling . He has been taking antibiotic therapy for that plus and antimicrobial but did not show any anaerobes in his ulcer. The left total leg length is much improved. Patient states his primary care doctor gave him a better medication for decreasing edema. Patient states unable to tolerate the Brandon wraps over the Tubigrip's . Ultrsound showed no blood clot in his left leg. Patient was approved for puraply #3 was applied today to the anterior ulcer and posterior ulcer too. It is medically necessary for him to either use the substitute skin or we will be looking at a skin graft. Now transfer care to Dr. Lynn on for surgical debridement and skin substitutes layered. His history of coxsackie a virus he still goes in a congestive heart failure he is BNP was over 500 his pre-albumin was 22 his regular albumin his blood was within normal limits shows some slight anemia on labs suggested he take iron. 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 Forced elevating legs eating more meat to improve his healing. Patient has requested a hospital bed to elevate and still be able to work. We will write a letter or send a prescription over for his many diagnosis is for his peripheral vascular disease edema nonhealing ulcers. - Physical Exam Vital Signs Temp Pulse Resp BP 98.0 F 105 H 20 H 101/60 02/02/18 08:48 02/02/18 08:48 02/02/18 08:48 02/02/18 08:48 General: Oriented x3, Cooperative, Well developed HEENT: Atraumatic, PERRLA Oral: Moist Mucosa Neck: Supple, No JVD Lungs: Clear to auscultation, Normal air movement Cardiovascular: Regular rate, Regular Rhythm Abdomen: Bowel Sounds Present, Soft, Non Tender, No Hepato-splenomegaly Extremities: No clubbing, No edema, - - There is anterior and posterior leg Wound Measurements and Assessment WC - Nurse 1 - General Ulcer Measurement Start: 01/19/18 09:52 Freq: Status: Active Protocol: Activity Type Activity Date Activity User E-Sign Co-Sign Detail Recorded Client Recorded Date Recorded By Document 02/02/18 08:48 [id number] 02/02/18 09:05 LORA 02/02/18 08:48 Wound Center Nurse 1 [Ulcer Assessment] #6 L Christensen -Combined with other wound No -Current Size (cm) - Length 9.5 -Current Size (cm) - Width 5.5 -Current Size (cm) - Depth 0.4 -Total Square Cm 52.25 -Date of Last Picture (Recall this 02/02/18 field) -Photo Taken Yes -Epithelialization None Present -Tunneling No -Undermining/Tunneling No -Circular Undermining No -Classification - Thickness Full Thickness with Exposed Support Structure -Exudate Amt Large (67-100%) -Exudate Type Serosanguineous -Wound Margin Distinct, Outline Attached -Granulation Amt Small (1-33%) -Granulation Quality Pale Shindler -Slough/Fibrin Yes -Necrosis Amt None Present (0 %) -Necrotic Tissue Type Eschar -Structure Exposed Muscle -Texture (Cyndy-wound Skin Appearance) No Abnormality -Moisture (Cyndy-wound Skin Appearance No Abnormality ) -Color (Cyndy-wound Skin Appearance) No Abnormality -Temperature (Cyndy-wound Skin No Abnormality Appearance) (Pt Warm) -Tenderness on Palpation (Cyndy-wound Yes Skin Appearance) -Ulcer Cleansing Rinsed/ Irrigated with Saline -Foul Odor after Cleansing No -Anesthetic Used 4% Lidocaine Solution #5 LLE Post -Combined with other wound No -Current Size (cm) - Length 6.0 -Current Size (cm) - Width 5.2 -Current Size (cm) - Depth 0.3 -Total Square Cm 31.20 -Date of Last Picture (Recall this 02/02/18 field) -Photo Taken Yes -Epithelialization Small 1-33% -Tunneling No -Undermining/Tunneling No -Circular Undermining No -Classification - Thickness Full Thickness without Exposed Support Structure -Change in Wound Grade/Stage No Query Text:If change please identify the Stage/Grade in the comment (ie. S2 G3) -Exudate Amt Medium (34-66%) -Exudate Type Serosanguineous -Wound Margin Distinct, Outline Attached -Granulation Amt Medium (34-66%) -Granulation Quality Pale Shindler -Slough/Fibrin Yes -Necrosis Amt None Present (0 %) -Necrotic Tissue Type Adherent Slough -Structure Exposed N/A -Texture (Cyndy-wound Skin Appearance) No Abnormality -Moisture (Cyndy-wound Skin Appearance No Abnormality ) -Color (Cyndy-wound Skin Appearance) No Abnormality -Temperature (Cyndy-wound Skin No Abnormality Appearance) (Pt Warm) -Tenderness on Palpation (Cyndy-wound Yes Skin Appearance) -Ulcer Cleansing Rinsed/ Irrigated with Saline -Foul Odor after Cleansing No -Anesthetic Used 4% Lidocaine Solution [Edema Assessment] -Lower Limb Edema Present Yes -Right Calf (cm) 36.0 -Right Ankle (cm) 24.0 -Left Calf (cm) 40.2 -Left Ankle (cm) 27.2 WC - Nurse 2 - General Ulcer CM Notes Start: 01/19/18 09:52 Freq: Status: Active Protocol: Activity Type Activity Date Activity User E-Sign Co-Sign Detail Recorded Client Recorded Date Recorded By Document 02/02/18 09:33 DV [id number] 02/02/18 09:46 DV 02/02/18 09:33 Wound Center Nurse 2 [Procedure/Treatment] #6 L Christensen -Time 09:43 -Correct Patient Yes -Correct Side, Site, Position Yes -Correct Procedure Yes -Procedure Performed Yes -Type of Procedure Debridement -Clinical Debridement Subcutaneous -Post Debridement Size (cm) - Length 9.5 -Post Debridement Size (cm) - Width 5.0 -Post Debridement Size (cm) - Depth 0.6 -Total Square Cm 47.50 -Wound/Ulcer Outcome Not Healed -Ulcer Cleansing Rinsed/ Irrigated with Saline -Foul Odor after Cleansing No -Bioengineered Tissue Yes -Type of bioengineered Tissue [id number] -Expiration Date 09/29/19 -Product Lot Number [id number] -Percent Used 100 -Saline Lot Number [id number] -Topical Lidocaine (%) 4 -Bleeding Controlled with Pressure -Treatment Response Procedure Tolerated Well #5 LLE Post -Time 09:33 -Correct Patient Yes -Correct Side, Site, Position Yes -Correct Procedure Yes -Procedure Performed Yes -Type of Procedure Debridement -Clinical Debridement Subcutaneous -Post Debridement Size (cm) - Length 8.4 -Post Debridement Size (cm) - Width 2.0 -Post Debridement Size (cm) - Depth 0.3 -Total Square Cm 16.80 -Wound/Ulcer Outcome Not Healed -Ulcer Cleansing Rinsed/ Irrigated with Saline -Foul Odor after Cleansing No -Bioengineered Tissue Yes -Type of bioengineered Tissue EPIFIX -Expiration Date 10/19/22 -Product Lot Number [id number] -Percent Used 100 -Saline Lot Number [id number] -Topical Lidocaine (%) 4 -Bleeding Controlled with Pressure -Treatment Response Procedure Tolerated Well [See Physician Procedure note for Specifics] Pain Scale: 0-10 Numeric [Pain] -Is Patient Pain Free? Yes Musculoskeletal: No Tenderness to Palpation of Joints or Extremities Lymphatic: No Cervical, Supraclavicular, or Inguinal Adenopathy Neurological: Cranial nerves II-XII grossly intact, Neuro grossly intact Psych/Mental Status: Normal Affect, Appropriate Debridement Note Post-Debridement Measurements/Treatment WC - Nurse 2 - General Ulcer CM Notes Start: 01/19/18 09:52 Freq: Status: Active Protocol: Activity Type Activity Date Activity User E-Sign Co-Sign Detail Recorded Client Recorded Date Recorded By Document 01/19/18 10:28 DV [id number] 01/19/18 10:50 DV Document 01/26/18 14:42 TM [id number] 01/26/18 15:06 TM Document 02/02/18 09:33 DV [id number] 02/02/18 09:46 DV 01/19/18 01/26/18 02/02/18 10:28 14:42 09:33 Wound Center Nurse 2 #6 L Christensen -Time 10:29 14:46 09:43 -Correct Patient Yes Yes Yes -Correct Side, Site, Position Yes Yes Yes -Correct Procedure Yes Yes Yes -Procedure Performed Yes Yes Yes -Type of Procedure Debridement Debridement Debridement -Clinical Debridement Subcutaneous Subcutaneous Subcutaneous -Post Debridement Size (cm) - Length 9.2 8.5 9.5 -Post Debridement Size (cm) - Width 5.2 4.7 5.0 -Post Debridement Size (cm) - Depth 0.7 0.6 0.6 -Total Square Cm 47.84 39.95 47.50 -Wound/Ulcer Outcome Not Healed Not Healed Not Healed -Ulcer Cleansing Rinsed/ Rinsed/ Rinsed/ Irrigated with Irrigated with Irrigated with Saline Saline Saline -Foul Odor after Cleansing No No No -Bioengineered Tissue Yes Yes Yes -Type of bioengineered Tissue [id number] EPIFIX [id number] -Expiration Date 09/14/19 10/19/22 09/29/19 -Product Lot Number [id number] -Percent Used 100 50 100 -Saline Lot Number [id number] -Topical Lidocaine (%) 4 5 4 -Bleeding Controlled with Pressure Pressure Pressure -Treatment Response Procedure Procedure Procedure Tolerated Well Tolerated Well Tolerated Well #5 LLE Post -Time 10:37 14:46 09:33 -Correct Patient Yes Yes Yes -Correct Side, Site, Position Yes Yes Yes -Correct Procedure Yes Yes Yes -Procedure Performed Yes Yes Yes -Type of Procedure Debridement Debridement Debridement -Clinical Debridement Subcutaneous Subcutaneous Subcutaneous -Post Debridement Size (cm) - Length 8.4 7.6 8.4 -Post Debridement Size (cm) - Width 1.9 4.1 2.0 -Post Debridement Size (cm) - Depth 0.3 0.3 0.3 -Total Square Cm 15.96 31.16 16.80 -Wound/Ulcer Outcome Not Healed Not Healed Not Healed -Ulcer Cleansing Rinsed/ Rinsed/ Rinsed/ Irrigated with Irrigated with Irrigated with Saline Saline Saline -Foul Odor after Cleansing No No No -Bioengineered Tissue Yes No Yes -Type of bioengineered Tissue [id number] EPIFIX -Expiration Date 09/14/19 10/19/22 10/19/22 -Product Lot Number [id number] -Percent Used 100 50 100 -Saline Lot Number [id number] -Topical Lidocaine (%) 4 5 4 -Bleeding Controlled with Pressure Pressure Pressure -Treatment Response Procedure Procedure Procedure Tolerated Well Tolerated Well Tolerated Well Pain Scale: 0-10 Numeric Is Patient Pain Free? Yes Yes Yes Wound debrided: Left anterior christensen Type of Debridement: Excisional debridement Anesthesia Used: 5% Lidocaine Gel Depth: Down to and including healthy tissue, in the subcutaneous layer, to bone Percentage of wound debrided: 100 Instrument Used: 7mm curette Tissue Removed: Fibrin Severity: Fat Layer Exposed Amount of bleeding with debridement: None Bleeding Controlled with: Pressure Patient tolerated procedure well - Additional Wound Wound debrided: Posterior calf Laterality: Left Type of Debridement: Excisional debridement Anesthesia Used: 5% Lidocaine Gel Depth: Down to and including healthy tissue, in the subcutaneous layer Percentage of wound debrided: 100 Instrument Used: 5mm curette Tissue Removed: Hamzah and slough Amount of bleeding with debridement: Mild Bleeding Controlled with: Compression and gauze Patient tolerated procedure: Patient tolerated procedure well Assessment/Plan Active Problems Skin ulcer of lower leg with necrosis of muscle (Chronic) 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 Cellulitis,. Bilateral lower leg edema swelling excessively in the left leg. Left lower leg ulcer-. Infection left lower leg ulcer. 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 Atrial fib to onset. Peripheral vascular disease Plan: Posterior ulcers apply #7 epi-fix moistened with hydrogel veil gauze and Sanjuana. Anterior ulcer # 5 puraply with hydrogel Veil over top Steri-Strips gauze dressing. Continue the double layer Tubigrip to bilateral lower legs. Follow-up with Dr. Cleary for further transfer care. Follow-up in [address] joshua and infectious disease. Nursing notes reviewed
--- NOTE | 2018-02-02 11:00 | PN.PCM_ITS ---
(1) Infected open wound Status: Acute Current Visit: Yes Code(s): T14.8XXA - Other injury of unspecified body region, initial encounter; L08.9 - Local infection of the skin and subcutaneous tissue, unspecified (2) Nonhealing ulcer of left lower leg Status: Acute Current Visit: Yes Code(s): L97.829 - Non-pressure chronic ulcer of other part of left lower leg with unspecified severity (3) Bilateral edema of lower extremity Status: Chronic Current Visit: Yes Code(s): R60.0 - Localized edema (4) Chronic atrial fibrillation Status: Chronic Current Visit: Yes Code(s): I48.2 - Chronic atrial fibrillation (5) Neuropathic pain, leg, bilateral Status: Chronic Current Visit: Yes Code(s): G57.91 - Unspecified mononeuropathy of right lower limb; G57.92 - Unspecified mononeuropathy of left lower limb (6) 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 Status: Acute Current Visit: Yes Code(s): L97.922 - Non-pressure chronic ulcer of unspecified part of left lower leg with fat layer exposed Type of Wound Date of Service: 02/02/18 Chief Complaint: Follow-up on bilateral lower leg ulcers History of Wound: 77-year-old white male who had surgery with Dr. 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 Apparently unbeknown to him he developed some open areas on the left lower leg and neglected them. Now he has very large deep ulcers with necrotic tissue and smell on the left lower leg anterior and posterior leg. Patient has been using his Aquacel silver on it. And not wearing his stockings or compression. There is a lot of edema and redness and cellulitis. Progress of Wound: The left anterior and posterior open ulcers are the same with no odor, the puraply rep states it pulls the bad out. 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 Xrays show no osteomylitis but soft tissue swelling . He has been taking antibiotic therapy for that plus and antimicrobial but did not show any anaerobes in his ulcer. The left total leg length is much improved. Patient states his primary care doctor gave him a better medication for decreasing edema. Patient states unable to tolerate the Brandon wraps over the Tubigrip's . Ultrsound showed no blood clot in his left leg. Patient was approved for puraply #3 was applied today to the anterior ulcer and posterior ulcer too. It is medically necessary for him to either use the substitute skin or we will be looking at a skin graft. Now transfer care to Dr. Lynn on for surgical debridement and skin substitutes layered. His history of coxsackie a virus he still goes in a congestive heart failure he is BNP was over 500 his pre-albumin was 22 his regular albumin his blood was within normal limits shows some slight anemia on labs suggested he take iron. 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 Forced elevating legs eating more meat to improve his healing. Patient has requested a hospital bed to elevate and still be able to work. We will write a letter or send a prescription over for his many diagnosis is for his peripheral vascular disease edema nonhealing ulcers. - Physical Exam Vital Signs Temp Pulse Resp BP 98.0 F 105 H 20 H 101/60 02/02/18 08:48 02/02/18 08:48 02/02/18 08:48 02/02/18 08:48 General: Oriented x3, Cooperative, Well developed HEENT: Atraumatic, PERRLA Oral: Moist Mucosa Neck: Supple, No JVD Lungs: Clear to auscultation, Normal air movement Cardiovascular: Regular rate, Regular Rhythm Abdomen: Bowel Sounds Present, Soft, Non Tender, No Hepato-splenomegaly Extremities: No clubbing, No edema, - - There is anterior and posterior leg Wound Measurements and Assessment WC - Nurse 1 - General Ulcer Measurement Start: 01/19/18 09:52 Freq: Status: Active Protocol: Activity Type Activity Date Activity User E-Sign Co-Sign Detail Recorded Client Recorded Date Recorded By Document 02/02/18 08:48 [id number] 02/02/18 09:05 LORA 02/02/18 08:48 Wound Center Nurse 1 [Ulcer Assessment] #6 L Christensen -Combined with other wound No -Current Size (cm) - Length 9.5 -Current Size (cm) - Width 5.5 -Current Size (cm) - Depth 0.4 -Total Square Cm 52.25 -Date of Last Picture (Recall this 02/02/18 field) -Photo Taken Yes -Epithelialization None Present -Tunneling No -Undermining/Tunneling No -Circular Undermining No -Classification - Thickness Full Thickness with Exposed Support Structure -Exudate Amt Large (67-100%) -Exudate Type Serosanguineous -Wound Margin Distinct, Outline Attached -Granulation Amt Small (1-33%) -Granulation Quality Pale Thendara -Slough/Fibrin Yes -Necrosis Amt None Present (0 %) -Necrotic Tissue Type Eschar -Structure Exposed Muscle -Texture (Cyndy-wound Skin Appearance) No Abnormality -Moisture (Cyndy-wound Skin Appearance No Abnormality ) -Color (Cyndy-wound Skin Appearance) No Abnormality -Temperature (Cyndy-wound Skin No Abnormality Appearance) (Pt Warm) -Tenderness on Palpation (Cyndy-wound Yes Skin Appearance) -Ulcer Cleansing Rinsed/ Irrigated with Saline -Foul Odor after Cleansing No -Anesthetic Used 4% Lidocaine Solution #5 LLE Post -Combined with other wound No -Current Size (cm) - Length 6.0 -Current Size (cm) - Width 5.2 -Current Size (cm) - Depth 0.3 -Total Square Cm 31.20 -Date of Last Picture (Recall this 02/02/18 field) -Photo Taken Yes -Epithelialization Small 1-33% -Tunneling No -Undermining/Tunneling No -Circular Undermining No -Classification - Thickness Full Thickness without Exposed Support Structure -Change in Wound Grade/Stage No Query Text:If change please identify the Stage/Grade in the comment (ie. S2 G3) -Exudate Amt Medium (34-66%) -Exudate Type Serosanguineous -Wound Margin Distinct, Outline Attached -Granulation Amt Medium (34-66%) -Granulation Quality Pale Thendara -Slough/Fibrin Yes -Necrosis Amt None Present (0 %) -Necrotic Tissue Type Adherent Slough -Structure Exposed N/A -Texture (Cyndy-wound Skin Appearance) No Abnormality -Moisture (Cyndy-wound Skin Appearance No Abnormality ) -Color (Cyndy-wound Skin Appearance) No Abnormality -Temperature (Cyndy-wound Skin No Abnormality Appearance) (Pt Warm) -Tenderness on Palpation (Cyndy-wound Yes Skin Appearance) -Ulcer Cleansing Rinsed/ Irrigated with Saline -Foul Odor after Cleansing No -Anesthetic Used 4% Lidocaine Solution [Edema Assessment] -Lower Limb Edema Present Yes -Right Calf (cm) 36.0 -Right Ankle (cm) 24.0 -Left Calf (cm) 40.2 -Left Ankle (cm) 27.2 WC - Nurse 2 - General Ulcer CM Notes Start: 01/19/18 09:52 Freq: Status: Active Protocol: Activity Type Activity Date Activity User E-Sign Co-Sign Detail Recorded Client Recorded Date Recorded By Document 02/02/18 09:33 DV [id number] 02/02/18 09:46 DV 02/02/18 09:33 Wound Center Nurse 2 [Procedure/Treatment] #6 L Christensen -Time 09:43 -Correct Patient Yes -Correct Side, Site, Position Yes -Correct Procedure Yes -Procedure Performed Yes -Type of Procedure Debridement -Clinical Debridement Subcutaneous -Post Debridement Size (cm) - Length 9.5 -Post Debridement Size (cm) - Width 5.0 -Post Debridement Size (cm) - Depth 0.6 -Total Square Cm 47.50 -Wound/Ulcer Outcome Not Healed -Ulcer Cleansing Rinsed/ Irrigated with Saline -Foul Odor after Cleansing No -Bioengineered Tissue Yes -Type of bioengineered Tissue [id number] -Expiration Date 09/29/19 -Product Lot Number [id number] -Percent Used 100 -Saline Lot Number [id number] -Topical Lidocaine (%) 4 -Bleeding Controlled with Pressure -Treatment Response Procedure Tolerated Well #5 LLE Post -Time 09:33 -Correct Patient Yes -Correct Side, Site, Position Yes -Correct Procedure Yes -Procedure Performed Yes -Type of Procedure Debridement -Clinical Debridement Subcutaneous -Post Debridement Size (cm) - Length 8.4 -Post Debridement Size (cm) - Width 2.0 -Post Debridement Size (cm) - Depth 0.3 -Total Square Cm 16.80 -Wound/Ulcer Outcome Not Healed -Ulcer Cleansing Rinsed/ Irrigated with Saline -Foul Odor after Cleansing No -Bioengineered Tissue Yes -Type of bioengineered Tissue EPIFIX -Expiration Date 10/19/22 -Product Lot Number [id number] -Percent Used 100 -Saline Lot Number [id number] -Topical Lidocaine (%) 4 -Bleeding Controlled with Pressure -Treatment Response Procedure Tolerated Well [See Physician Procedure note for Specifics] Pain Scale: 0-10 Numeric [Pain] -Is Patient Pain Free? Yes Musculoskeletal: No Tenderness to Palpation of Joints or Extremities Lymphatic: No Cervical, Supraclavicular, or Inguinal Adenopathy Neurological: Cranial nerves II-XII grossly intact, Neuro grossly intact Psych/Mental Status: Normal Affect, Appropriate Debridement Note Post-Debridement Measurements/Treatment WC - Nurse 2 - General Ulcer CM Notes Start: 01/19/18 09:52 Freq: Status: Active Protocol: Activity Type Activity Date Activity User E-Sign Co-Sign Detail Recorded Client Recorded Date Recorded By Document 01/19/18 10:28 DV [id number] 01/19/18 10:50 DV Document 01/26/18 14:42 TM [id number] 01/26/18 15:06 TM Document 02/02/18 09:33 DV [id number] 02/02/18 09:46 DV 01/19/18 01/26/18 02/02/18 10:28 14:42 09:33 Wound Center Nurse 2 #6 L Christensen -Time 10:29 14:46 09:43 -Correct Patient Yes Yes Yes -Correct Side, Site, Position Yes Yes Yes -Correct Procedure Yes Yes Yes -Procedure Performed Yes Yes Yes -Type of Procedure Debridement Debridement Debridement -Clinical Debridement Subcutaneous Subcutaneous Subcutaneous -Post Debridement Size (cm) - Length 9.2 8.5 9.5 -Post Debridement Size (cm) - Width 5.2 4.7 5.0 -Post Debridement Size (cm) - Depth 0.7 0.6 0.6 -Total Square Cm 47.84 39.95 47.50 -Wound/Ulcer Outcome Not Healed Not Healed Not Healed -Ulcer Cleansing Rinsed/ Rinsed/ Rinsed/ Irrigated with Irrigated with Irrigated with Saline Saline Saline -Foul Odor after Cleansing No No No -Bioengineered Tissue Yes Yes Yes -Type of bioengineered Tissue [id number] EPIFIX [id number] -Expiration Date 09/14/19 10/19/22 09/29/19 -Product Lot Number [id number] -Percent Used 100 50 100 -Saline Lot Number [id number] -Topical Lidocaine (%) 4 5 4 -Bleeding Controlled with Pressure Pressure Pressure -Treatment Response Procedure Procedure Procedure Tolerated Well Tolerated Well Tolerated Well #5 LLE Post -Time 10:37 14:46 09:33 -Correct Patient Yes Yes Yes -Correct Side, Site, Position Yes Yes Yes -Correct Procedure Yes Yes Yes -Procedure Performed Yes Yes Yes -Type of Procedure Debridement Debridement Debridement -Clinical Debridement Subcutaneous Subcutaneous Subcutaneous -Post Debridement Size (cm) - Length 8.4 7.6 8.4 -Post Debridement Size (cm) - Width 1.9 4.1 2.0 -Post Debridement Size (cm) - Depth 0.3 0.3 0.3 -Total Square Cm 15.96 31.16 16.80 -Wound/Ulcer Outcome Not Healed Not Healed Not Healed -Ulcer Cleansing Rinsed/ Rinsed/ Rinsed/ Irrigated with Irrigated with Irrigated with Saline Saline Saline -Foul Odor after Cleansing No No No -Bioengineered Tissue Yes No Yes -Type of bioengineered Tissue [id number] EPIFIX -Expiration Date 09/14/19 10/19/22 10/19/22 -Product Lot Number [id number] -Percent Used 100 50 100 -Saline Lot Number [id number] -Topical Lidocaine (%) 4 5 4 -Bleeding Controlled with Pressure Pressure Pressure -Treatment Response Procedure Procedure Procedure Tolerated Well Tolerated Well Tolerated Well Pain Scale: 0-10 Numeric Is Patient Pain Free? Yes Yes Yes Wound debrided: Left anterior christensen Type of Debridement: Excisional debridement Anesthesia Used: 5% Lidocaine Gel Depth: Down to and including healthy tissue, in the subcutaneous layer, to bone Percentage of wound debrided: 100 Instrument Used: 7mm curette Tissue Removed: Fibrin Severity: Fat Layer Exposed Amount of bleeding with debridement: None Bleeding Controlled with: Pressure Patient tolerated procedure well - Additional Wound Wound debrided: Posterior calf Laterality: Left Type of Debridement: Excisional debridement Anesthesia Used: 5% Lidocaine Gel Depth: Down to and including healthy tissue, in the subcutaneous layer Percentage of wound debrided: 100 Instrument Used: 5mm curette Tissue Removed: Hamzah and slough Amount of bleeding with debridement: Mild Bleeding Controlled with: Compression and gauze Patient tolerated procedure: Patient tolerated procedure well Assessment/Plan Active Problems Skin ulcer of lower leg with necrosis of muscle (Chronic) 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 Cellulitis,. Bilateral lower leg edema swelling excessively in the left leg. Left lower leg ulcer-. Infection left lower leg ulcer. 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 Atrial fib to onset. Peripheral vascular disease Plan: Posterior ulcers apply #7 epi-fix moistened with hydrogel veil gauze and Sanjuana. Anterior ulcer # 5 puraply with hydrogel Veil over top Steri-Strips gauze dressing. Continue the double layer Tubigrip to bilateral lower legs. Follow-up with Dr. Cleary for further transfer care. Follow-up in [address] joshua and infectious disease. Nursing notes reviewed
[2018-02-14 08:08] VITALS: BP 103/71; PULSE 105; RESP 18; TEMP 37.1; BMI 65.4
--- NOTE | 2018-02-14 09:17 | PN.PCM_ITS ---
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 Status: Chronic Current Visit: Yes Code(s): L97.902 - Non-pressure chronic ulcer of unspecified part of unspecified lower leg with fat layer exposed (3) Bilateral edema of lower extremity Status: Chronic Current Visit: Yes Code(s): R60.0 - Localized edema (4) Pain, lower extremity Status: Chronic Current Visit: Yes Qualifiers: Laterality: left Qualified Code(s): M79.605 - Pain in left leg (5) Peripheral vascular disease of extremity with claudication Status: Chronic Current Visit: Yes Code(s): I73.9 - Peripheral vascular disease, unspecified (6) Venous insufficiency Status: Acute Current Visit: Yes Code(s): I87.2 - Venous insufficiency ( chronic) (peripheral) (7) Cellulitis of left leg Status: Acute Current Visit: Yes Code(s): L03.116 - Cellulitis of left lower limb Type of Wound Date of Service: 02/14/18 Chief Complaint: Follow-up on left lower leg ulcers History of Wound: 77-year-old male who had surgery with Dr. 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 He follows up today for 2 left left lower extremity wounds. He has increased swelling and inflammation to that site today. He did not obtain his walking boot yet. He denies fever, chill, nausea, vomiting, loss of appetite, odor, streaking to the leg. He was previously not amenable to go to surgery he would like to reconsider this at this time. His increased leg swelling and relates he has been more active over this past holiday weekend. Progress of Wound: improving posterior wound. Anterior wound with increased inflammation - Physical Exam Vital Signs Temp Pulse Resp BP 98.7 F 105 H 18 103/71 02/14/18 08:08 02/14/18 08:08 02/14/18 08:08 02/14/18 08:08 General: Alert, Oriented x3, Cooperative Extremities: No cyanosis, Capillary Refill Less than 3 Seconds, No Calf Tenderness - Negative Travon and Araya sign left lower extremity, Diminished Peripheral Pulses, Edema, - - The posterior leg ulcer site has improved granulation tissue. The anterior leg wound has exposed muscle and bone without discoloration or necrosis. There is period of moist eschar to the distal peripheral border. His adjacent skin is hairless and atrophic. He does have exposed subcutaneous granular and fibrous tissue noted. There is increased peripheral edema inflammation and hyperpigmentation without purulence, odor, or nena infection. There is no proximal streaking. Skin: Ulcer/ Wound Wound Measurements and Assessment WC - Nurse 1 - General Ulcer Measurement Start: 01/19/18 09:52 Freq: Status: Active Protocol: Activity Type Activity Date Activity User E-Sign Co-Sign Detail Recorded Client Recorded Date Recorded By Document 02/14/18 08:08 DL [id number] 02/14/18 08:23 DL 02/14/18 08:08 Wound Center Nurse 1 [Ulcer Assessment] #6 L Christensen -Current Size (cm) - Length 8.7 -Current Size (cm) - Width 6.2 -Current Size (cm) - Depth 0.5 -Total Square Cm 53.94 -Photo Taken No -Exudate Amt Large (67-100%) -Exudate Type Serosanguineous -Wound Margin Distinct, Outline Attached -Granulation Amt Medium (34-66%) -Granulation Quality Red -Necrosis Amt Medium (34-66%) -Necrotic Tissue Type Adherent Slough -Structure Exposed Bone -Texture (Cyndy-wound Skin Appearance) Excoriation Localized Edema -Color (Cyndy-wound Skin Appearance) Erythema -Temperature (Cyndy-wound Skin No Abnormality Appearance) (Pt Warm) -Tenderness on Palpation (Cyndy-wound Yes Skin Appearance) -Ulcer Cleansing Wound Cleanser -Foul Odor after Cleansing No -Anesthetic Used 4% Lidocaine Solution #5 LLE Post -Current Size (cm) - Length 7 -Current Size (cm) - Width 5 -Current Size (cm) - Depth 0.4 -Total Square Cm 35 -Photo Taken No -Exudate Amt Medium (34-66%) -Exudate Type Serosanguineous -Wound Margin Distinct, Outline Attached -Granulation Amt Medium (34-66%) -Granulation Quality Red -Necrosis Amt Medium (34-66%) -Necrotic Tissue Type Adherent Slough -Structure Exposed N/A -Texture (Cyndy-wound Skin Appearance) Localized Edema Scarring -Moisture (Cyndy-wound Skin Appearance Maceration ) -Color (Cyndy-wound Skin Appearance) Erythema -Temperature (Cyndy-wound Skin No Abnormality Appearance) (Pt Warm) -Ulcer Cleansing Wound Cleanser -Foul Odor after Cleansing No -Anesthetic Used 4% Lidocaine Solution [Edema Assessment] -Left Calf (cm) 42 -Left Ankle (cm) 26.4 Musculoskeletal: No Tenderness to Palpation of Joints or Extremities, Muscle Wasting, Tenderness - Pain with manipulation left lower extremity Neurological: - - Lack of epicritic sensation light touch left lower extremity Psych/Mental Status: Normal Affect, Appropriate Debridement Note Post-Debridement Measurements/Treatment WC - Nurse 2 - General Ulcer CM Notes Start: 01/19/18 09:52 Freq: Status: Active Protocol: Activity Type Activity Date Activity User E-Sign Co-Sign Detail Recorded Client Recorded Date Recorded By Document 01/19/18 10:28 DV [id number] 01/19/18 10:50 DV Document 01/26/18 14:42 TM [id number] 01/26/18 15:06 TM Document 02/02/18 09:33 DV [id number] 02/02/18 09:46 DV 01/19/18 01/26/18 02/02/18 10:28 14:42 09:33 Wound Center Nurse 2 #6 L Christensen -Time 10:29 14:46 09:43 -Correct Patient Yes Yes Yes -Correct Side, Site, Position Yes Yes Yes -Correct Procedure Yes Yes Yes -Procedure Performed Yes Yes Yes -Type of Procedure Debridement Debridement Debridement -Clinical Debridement Subcutaneous Subcutaneous Subcutaneous -Post Debridement Size (cm) - Length 9.2 8.5 9.5 -Post Debridement Size (cm) - Width 5.2 4.7 5.0 -Post Debridement Size (cm) - Depth 0.7 0.6 0.6 -Total Square Cm 47.84 39.95 47.50 -Wound/Ulcer Outcome Not Healed Not Healed Not Healed -Ulcer Cleansing Rinsed/ Rinsed/ Rinsed/ Irrigated with Irrigated with Irrigated with Saline Saline Saline -Foul Odor after Cleansing No No No -Bioengineered Tissue Yes Yes Yes -Type of bioengineered Tissue [id number] EPIFIX [id number] -Expiration Date 09/14/19 10/19/22 09/29/19 -Product Lot Number [id number] -Percent Used 100 50 100 -Saline Lot Number [id number] -Topical Lidocaine (%) 4 5 4 -Bleeding Controlled with Pressure Pressure Pressure -Treatment Response Procedure Procedure Procedure Tolerated Well Tolerated Well Tolerated Well #5 LLE Post -Time 10:37 14:46 09:33 -Correct Patient Yes Yes Yes -Correct Side, Site, Position Yes Yes Yes -Correct Procedure Yes Yes Yes -Procedure Performed Yes Yes Yes -Type of Procedure Debridement Debridement Debridement -Clinical Debridement Subcutaneous Subcutaneous Subcutaneous -Post Debridement Size (cm) - Length 8.4 7.6 8.4 -Post Debridement Size (cm) - Width 1.9 4.1 2.0 -Post Debridement Size (cm) - Depth 0.3 0.3 0.3 -Total Square Cm 15.96 31.16 16.80 -Wound/Ulcer Outcome Not Healed Not Healed Not Healed -Ulcer Cleansing Rinsed/ Rinsed/ Rinsed/ Irrigated with Irrigated with Irrigated with Saline Saline Saline -Foul Odor after Cleansing No No No -Bioengineered Tissue Yes No Yes -Type of bioengineered Tissue [id number] EPIFIX -Expiration Date 09/14/19 10/19/22 10/19/22 -Product Lot Number [id number] -Percent Used 100 50 100 -Saline Lot Number [id number] -Topical Lidocaine (%) 4 5 4 -Bleeding Controlled with Pressure Pressure Pressure -Treatment Response Procedure Procedure Procedure Tolerated Well Tolerated Well Tolerated Well Pain Scale: 0-10 Numeric Is Patient Pain Free? Yes Yes Yes Wound debrided: posterior leg Laterality: Left Type of Debridement: Excisional debridement Anesthesia Used: 4% Lidocaine Solution Depth: in the subcutaneous layer Percentage of wound debrided: 100 Instrument Used: 5mm curette Tissue Removed: fibrous, devitalized subcutaneous, biofilm, slough Severity: Fat Layer Exposed Amount of bleeding with debridement: Mild Bleeding Controlled with: Pressure Patient tolerated procedure well - Additional Wound Wound debrided: anterior leg Laterality: Left Type of Debridement: Excisional debridement Anesthesia Used: 4% Lidocaine Solution Depth: in the subcutaneous layer Percentage of wound debrided: 100 Instrument Used: 5mm curette Tissue Removed: fibrous, devitalized subcutaneous, biofilm, slough Severity: Fat Layer Exposed Amount of bleeding with debridement: Mild Bleeding Controlled with: Pressure Patient tolerated procedure: Patient tolerated procedure well Assessment/Plan Active Problems Skin ulcer of lower leg with necrosis of muscle (Chronic) 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 Worsening status of left lower extremity ; infection workup in process. Rule out MRSA carrier status. Bilateral lower leg edema swelling increased in the left leg. Left lower leg ulcer-anterior and posterior. 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 Atrial fib to onset. Peripheral vascular disease Plan: I reviewed and discussed his case today. Subcutaneous excisional ulcer debridement was performed as noted in the clinical panel. The post debridement measurement of the posterior left leg wound measures 7.1 x 5.1 x 0 L with a total measurement of 36.21 cm?. The anterior left leg post debridement wound measurement is 8.8 x 6 with a total measurement of 55.44 cm?. The ulcer sites were excisionally debrided with a 15 blade after 5% lidocaine solution was applied for anesthesia. He tolerated this well. Hemostasis was controlled with pressure and 1 3-0 Prolene was used to help stop a dermal bleeder to the anterior lateral aspect of the wound margin after prolonged compression did not completely stop site. This is controlled prior to dressing application.. Applied was applied to the borders of the anterior wound which appears to have increased inflammation today. Aerobic and anaerobic cultures were also obtained after debridement and saline irrigation was performed. I am also concerned that he is a MRSA carrier and performed a nasal swab today to see if a decolonization process is necessary. He appeared to be responding well to his MRSA decolonization, Hibiclens wash, antibiotics, and multiple applications of antimicrobial collagen dressing (puraply). However he has a little setback this week and is not clear if this is his infection returning or if his increased activity is resulting in his increased leg edema. the indications and healing expectations were discussed. He tolerated this well. The advanced wound care product was secured in place with Steri-Strips and wound veil. He was advised to keep this clean dry and intact until follow-up visit next week. Sangeeta was applied to the posterior leg wound. To continue light compression, Tubigrip. I reviewed his venous Doppler evaluation which did not demonstrate greater saphenous vein reflux or deep venous thrombosis. We reviewed and discussed his peripheral vascular disease status. His noninvasive vascular studies from 2016 did demonstrate an PEREZ in the left lower extremity of 0.5 to and evidence of multi segment disease. He relates he was seen and treated by Dr. Maloney. I will request his medical records to see exactly which intervention has been performed. And also interested in obtaining a primary care physician notes to better understand his medical history in preparation for surgical intervention. His x-rays from January 14, 2018 were reviewed without any acute fracture, dislocation, foreign body, soft tissue emphysema, periosteal reaction adjacent to the wound bed, other periosteal or bone destruction. This was discussed again today. Infectious disease input will be appreciated and I recommend a consultation. The wound care center nursing staff will help coordinate this. His previous lab work from September 2017 was reviewed with a white blood cell count of 7.0, creatinine 1.31, prealbumin of 22.3. I recommend additional screening with ESR and C-reactive protein. Recommend nutritional supplementation with Napoleon which has amino acids and collagen protein which optimize healing. A prescription is provided. I recommend improve immobilization of this wound site with a tall cam walker boot. He did not obtain this yet and he was advised to go to the foot and ankle center to get fitted today. I can see the tendon moving and gliding freely within the wound bed and will be difficult to epithelialize over this moving structure. A prescription was provided and I advised he avoid tight strap placement directly over the wound bed. I offered him application of additional advanced wound care products in the operating room within the next couple of weeks if we can get this scheduled. A wound VAC will be considered. This can be done under local anesthetic. He understands an H&P will need to be completed as well as additional lab work. Follow-up in 1 week at the wound care center. To call sooner if he has any questions or concerns.
[2018-02-14 13:56] LABS: M R Staph aureus DNA By PCR POSITIVE (Negative); Probe Check PASS
[2018-02-14 14:00] LABS: M R Staph aureus DNA By PCR POSITIVE (Negative); Probe Check PASS; Staph aureus DNA By PCR POSITIVE (Negative)
== END 2018-02-15 23:59 ==
LOC: WC 08:00
PROVIDERS: Family Provider Internal Medicine; PCP Internal Medicine; Visit Provider Podiatrist
DX: I73.9 Peripheral vascular disease, unspecified (principal); L97.823 Non-pressure chronic ulcer of other part of left lower leg with necrosis of muscle; R60.0 Localized edema; I48.2 Chronic atrial fibrillation; G57.93 Unspecified mononeuropathy of bilateral lower limbs; L08.9 Local infection of the skin and subcutaneous tissue, unspecified; B95.62 Methicillin resistant Staphylococcus aureus infection as the cause of diseases classified elsewhere; I50.9 Heart failure, unspecified
CPT/HCPCS: 11042; 15271; 15272; 87070; 87075; 87077; 87186; 87205; 87640; 87641; Q4131; Q4172

== ENCOUNTER 2018-02-17 10:14 | Inpatient (IN) | payer MEDICARE, OTHER, SELFPAY ==
[2018-02-17] VITALS (9 sets, daily range): BP systolic 95–141; BP diastolic 53–61; PULSE 86–140; RESP 16–18; TEMP 36.7–36.9; O2SAT 96–100; BMI 28.3; BMI 29.1; BMI 27.7; BMI 27.6
[2018-02-17 11:31] LABS: Absolute Lymphocyte Count 1.27 X10^3/ul (0.83-4.51); Absolute Neutrophil Count 8.5 X10^3/uL (2.0-7.7); Basophil# 0.01 X10^3/uL; Basophil% 0.1 % (0-1); Eosinophil# 0.12 X10^3/uL; Eosinophils% 1.1 % (0-5); Hematocrit 30.7 % (40-54); Lymphocyte # 1.27 X10^3/ul (4.0); Lymphocyte % 11.6 % (19-41); Mean Corp Hgb Conc 32.6 g/gl (32-36); Mean Corpuscular Hgb 29.1 pg (27.0-32.0); Mean Corpuscular Volume 89.2 fL (80-94); Mean Platelet Vol. 9.5 fl (6.2-12.0); Monocyte# 1.02 X10^3/uL; Monocyte% 9.3 % (0-10); Neutrophil % 77.7 % (47-70); Platelet Count 252 K/mm3 (150-450); RBC Distribution Width CV 13.5 % (11.6-14.6); RBC Distribution Width SD 44.5 fl (35.1-43.9); Red Blood Count 3.44 M/mm3 (4.6-6.2); White Blood Count 10.9 K/mm3 (4.4-11.0)
[2018-02-17 11:32] LABS: POSITIVE COUNT NO; POSITIVE DIFFERENTIAL NO; POSITIVE MORPHOLOGY NO
[2018-02-17] MEDS: Ceftriaxone 1 GM/50 ML BAG IV ×2 (11:38→22:12)
[2018-02-17 11:50] LABS: Anion Gap 9 (5-15); BUN 49 mg/dL (7-18); BUN/Creat Ratio 35.3 RATIO (10-20); Chloride 103 mmol/L (98-107); Creatinine, Serum 1.39 mg/dL (0.70-1.30); EST Glomerular Filtration Rate 53 mL/min (>60); Est Glom Filt Rate - Afr Amer 64 mL/min (>60); Glucose 109 mg/dL (74-106); Potassium 4.1 mmol/L (3.5-5.1); Sodium Level 138 mmol/L (136-145)
[2018-02-17 11:53] LABS: Lactic Acid 1.2 mmol/L (0.4-2.0)
--- NOTE | 2018-02-17 12:36 | ED.DCSUM_ITS ---
- ER Visit Summary Date of Service: 02/17/18 Chief Complaint: Bleeding from wound on left leg History of Present Illness: The patient is a [address] Daniels and goes to the wound clinic. He has a wound on the anterior left leg that has been present for quite some time. It was debrided by Dr. Cleary on February 14. Patient reports that there was a small area that would not stop bleeding so a stitch was placed. Patient states that he removed the dressing this morning approximately an hour ago and it began bleeding horribly. EMS placed a turning cut on his leg. He reports that he has a burning pain 8 out of 10 worst and 6 out of 10 currently. Review of systems: General: No fever, chills, cold sweats. Cardiovascular: No chest pain, palpitations. Respiratory: No cough, shortness of breath, dyspnea on exertion. Gastrointestinal: No abdominal pain, vomiting, diarrhea, melena, or hematochezia. Genitourinary: No dysuria, frequency, hematuria. Skin: No rash. Neuro: No headache, numbness, weakness. Physical Examination: Vitals: Stable. Afebrile. General: Well-nourished and well-developed. Head: Normocephalic atraumatic. Neck: Supple, no lymphadenopathy. No JVD. Nontender. Cardiovascular: Regular rate and rhythm. No murmurs. Respiratory: No respiratory distress. Clear to auscultation bilaterally. Abdominal: Soft, nontender, nondistended, normal bowel sounds. No guarding, rebound, or peritoneal signs. Back: Nontender. Extremities: Approximately 10 cm in diameter ulcer to the anterior left leg. There is a avulsed skin covering this. There is no active bleeding. There is a significant amount of malodorous purulent drainage on the dressing. He is neurovascularly intact distally. Skin: Normal color, no rash. Neurologic: Alert and oriented ?3. Cranial nerves II through XII are intact. Normal strength and sensation. Psych: Normal affect. Test Results: CBC is marked for an H&H of 10.0 and 30.0 his last hemoglobin was 12.9 on October 04. 7 neutrophils 70 leukocytes 12. Chem-7 is more for BUN 49 , creatinine 1.39, glucose 109. CRP is 105. Lactic acid is 1.2. Patient had a wound culture obtained February 14 which shows MRSA. Anaerobic cultures are still pending. Emergency Department Course and Treatment: Patient had a dressing placed. He was treated with Rocephin and vancomycin IV. Treatment Plan: Patient was discussed with Dr. Lazaro. He will also be discussed with Dr. Lucas and admitted for further evaluation and treatment. Disposition: Admitted in improved condition. Impression: 1. Infected non healing wound left leg. 2. Anemia. This note was generated with [employer] dictation software. It may contain incorrect words, spelling, and punctuation that were not noted in review of the chart prior to signing ED Disposition - Plan for ED Patient: Chief Complaint: Laceration Referrals: Phoebe Daniels MD [Primary Care Provider] -
--- NOTE | 2018-02-17 12:38 | HP.PCM_ITS ---
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) Nonischemic cardiomyopathy (Chronic) Chronic systolic CHF (congestive heart failure) (Chronic) Chronic atrial fibrillation (Chronic) Bilateral edema of lower extremity (Chronic) Open wounds involving multiple regions of lower extremity (Chronic) Neuropathic pain, leg, bilateral (Chronic) Pain, lower extremity (Chronic) PAOD (peripheral arterial occlusive disease) (Chronic) Peripheral vascular disease of extremity with claudication (Chronic) Allergies codeine Adverse Reaction (Verified 09/29/17 09:53) Nausea Home Medications: Ambulatory Orders Medication Instructions Recorded Aspirin E.C. [Ecotrin] 81 mg PO DAILY@0800 11/06/15 Furosemide [Lasix] 40 mg PO BID 11/06/15 Potassium Chloride [Klor-Con M10] 10 meq PO BID 11/06/15 Apixaban [Eliquis] 5 mg PO BID 05/24/17 Carvedilol [Coreg (Beta Min)] 12.5 mg PO BID 05/24/17 Lisinopril [Zestril] 10 mg PO DAILY 05/24/17 Surgical History: appendectomy, herniorrhaphy, - - Hand surgery Smoking Status: Former smoker - *Family History Maternal History Items: No pertinent history Paternal History Items: No pertinent history - Physical Exam General: Alert, Oriented x3, Cooperative HEENT: Atraumatic, PERRLA, EOMI, Normocephalic Neck: Supple, No JVD, Negative Carotid Bruits Lungs: Clear to auscultation, Normal air movement Cardiovascular: Regular rate, No murmurs Abdomen: Bowel Sounds Present, Soft, Non Tender Extremities: No edema, Capillary Refill Less than 3 Seconds Skin: No rashes, No breakdown Musculoskeletal: No Tenderness to Palpation of Joints or Extremities Neurological: Cranial nerves II-XII grossly intact Psych/Mental Status: Normal Affect, Appropriate Vital Signs Temp Pulse Resp BP Pulse Ox 98.3 F 120 H 18 141/59 H 96 02/17/18 10:15 02/17/18 11:54 02/17/18 11:54 02/17/18 11:54 02/17/18 11:54 Oxygen Delivery Method Room Air Weight: 97.522 kg Body Mass Index (BMI) 29.1 Laboratory Tests Past 24 Hrs 02/17/18 02/17/18 02/17/18 11:19 11:19 11:19 WBC 10.9 RBC 3.44 L Hgb 10.0 L Hct 30.7 L MCV 89.2 MCH 29.1 MCHC 32.6 RDW 13.5 RDW Differential 44.5 H Plt Count 252 MPV 9.5 Immature Gran % (Auto) 0.200 Neut % (Auto) 77.7 H Lymph % (Auto) 11.6 L Stafford % (Auto) 9.3 Eos % (Auto) 1.1 Baso % (Auto) 0.1 Absolute Neuts (auto) 8.5 H Absolute Lymphs (auto) 1.27 Total Counted Not Reportable ESR Pending Sodium 138 Potassium 4.1 Chloride 103 Carbon Dioxide 26.0 Anion Gap 9 BUN 49 H Creatinine 1.39 H Estim Creat Clear Calc 51.10 Est GFR (MDRD) Af Amer 64 Est GFR (MDRD) Non-Af 53 L BUN/Creatinine Ratio 35.3 H Glucose 109 H Lactic Acid 1.2 Calcium 9.0 C-React Prot Ext Range 105.00 H Assessment/Plan All Active Problems 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 (Acute) Venous insufficiency (Acute) Cellulitis of left leg (Acute) Infected open wound (Acute) Nonhealing ulcer of left lower leg (Acute) Code Visit Inpatient E&M: 30856 Init Hosp L3
--- NOTE | 2018-02-17 13:21 | DT_ITS ---
This patient was seen during an EMR downtime February 19, 2018 - February 26, 2018. This patient may have a combination of paper and electronic documentation or all paper documentation. All documentation is viewable within the e-chart portion of [email or web address] for each patient visit.
[2018-02-17 14:45] LABS: Erythrocyte Sedimentation Rate 43 mm/hr (0-20)
--- NOTE | 2018-02-17 17:34 | HP.PCM_ITS ---
<Washington Proctor - Last Filed: 02/17/18 17:22> Problem List (1) Cellulitis of left leg Status: Acute (2) CKD (chronic kidney disease) stage 3, GFR 30-59 ml/min Status: Chronic (3) Nonischemic cardiomyopathy Status: Chronic (4) Chronic systolic CHF (congestive heart failure) Status: Chronic (5) PAOD (peripheral arterial occlusive disease) Status: Chronic (6) Anemia Status: Chronic History of Present Illness Date of Admission: 02/17/18 Chief Complaint: bleeding of nonhealing lle wound The patient is a 77 year old M with a hx of chronic venous stasis wounds, nonischemic cardiomyopathy, chronic Afib, systolic CHF, PAD, who presents to the ER from the home by squad for bleeding of his LLE wound. He has a large about 10x6 cm open wound down to the bone that is treated weekly by Dr. Cleary at the wound center. Reportedly, something was nicked on monday with copious bleeding and a subsequent ligation. He was changing his dressing at home today and it started bleeding profusely. He states it was shooting blood out. He is on eliquis for Afib. He placed a tourniquet on his leg. He was brought to the emergency room and had a hgb of 10.0, and in the ER it was noted not to be actively bleeding but was foul smelling and with purulent drainage. He denies fevers or chills. He has tachycardia but denies palpitations, he did miss his morning meds today. He has no worsening of chronic pain, redness, or warmth of his affected wound. He is in severe pain daily for about 2 years. 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) CKD (chronic kidney disease) stage 3, GFR 30-59 ml/min (Chronic) Anemia (Chronic) Nonischemic cardiomyopathy (Chronic) Chronic systolic CHF (congestive heart failure) (Chronic) Chronic atrial fibrillation (Chronic) Bilateral edema of lower extremity (Chronic) Open wounds involving multiple regions of lower extremity (Chronic) Neuropathic pain, leg, bilateral (Chronic) Pain, lower extremity (Chronic) PAOD (peripheral arterial occlusive disease) (Chronic) Peripheral vascular disease of extremity with claudication (Chronic) Allergies codeine Adverse Reaction (Verified 09/29/17 09:53) Nausea Home Medications: Ambulatory Orders Medication Instructions Recorded Aspirin E.C. [Ecotrin] 81 mg PO DAILY@0800 11/06/15 Furosemide [Lasix] 40 mg PO BID 11/06/15 Potassium Chloride [Klor-Con M10] 10 meq PO BID 11/06/15 Apixaban [Eliquis] 5 mg PO BID 05/24/17 Carvedilol [Coreg (Beta Min)] 12.5 mg PO BID 05/24/17 Lisinopril [Zestril] 10 mg PO DAILY 05/24/17 Surgical History: appendectomy, herniorrhaphy, - - Hand surgery Psychiatric History: No pertinent psych hx Lives: Spouse/ Significant Other Smoking Status: Former smoker Tobacco Use: Non-smoker Alcohol: None Drugs: None - *Family History Maternal History Items: Dementia Paternal History Items: - - venous ulcers Review of Systems Constitutional: Denies: Chills, Fever, Weight Change HEENT: Denies: Head Aches, Sinus Congestion, Sinus Drainage Cardiovascular: Denies: Chest Pain, Palpitations Respiratory: Denies: Cough, Shortness of breath at rest, Sputum production Gastrointestinal: Denies: Abdominal Pain, Nausea, Vomiting Genitourinary: Denies: Dysuria Musculoskeletal: Denies: Joint Pain, Joint Tenderness Skin: Reports: Wounds - bleeding, draingage purulent. Denies: Rash Neurological: Denies: Numbness, Tingling, Focal weakness Psychiatric: Denies: Anxiety, Depression, Homicidal Ideations, Suicidal Ideations Hematologic/ Lymphatic: Denies: Easy Bruising, Easy Bleeding VTE Information - Inpt Only VTE Present on Admission: No VTE Mechan Device Prophylaxis: None VTE Pharm Prophylaxis ordered?: No Reason prophylaxis not ordered:: Medical Contraindication - Physical Exam General: Alert, Oriented x3, Cooperative HEENT: Atraumatic, PERRLA, EOMI, Normocephalic Neck: Supple, No JVD, Negative Carotid Bruits Lungs: Clear to auscultation, Normal air movement Cardiovascular: Regular rate, No murmurs Abdomen: Bowel Sounds Present, Soft, Non Tender Extremities: No edema, Capillary Refill Less than 3 Seconds Skin: No rashes, No breakdown, - - 610 chronic venous wound with surrounding erythema and slough, visible bone Musculoskeletal: No Tenderness to Palpation of Joints or Extremities Neurological: Cranial nerves II-XII grossly intact Psych/Mental Status: Normal Affect, Appropriate Vital Signs Temp Pulse Resp BP Pulse Ox 98.0 F 114 H 18 106/61 100 02/17/18 14:47 02/17/18 15:39 02/17/18 14:47 02/17/18 14:47 02/17/18 14:47 Oxygen Delivery Method Room Air Weight: 92.533 kg Body Mass Index (BMI) 27.6 Assessment/Plan All Active Problems 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 (Acute) Venous insufficiency (Acute) Cellulitis of left leg (Acute) Infected open wound (Acute) Nonhealing ulcer of left lower leg (Acute) 1. Bleeding, nonhealing wound, LLE chronic venous stasus, open to bone, some surrounding erythema concerning for cellulitis - no fever or wbc. Hx MRSA. Continue vanc and ceftriaxone. Consult to Dr. Cleary. Consult ID. Elevated CRP/ESR. 2. Chronic AF - tachy, missed AM meds. restart. Hold eliquis for bleeding 3. Anemia - mild. blood loss, bleeding now controlled. Trend 4. Hx Nonischemic CM and systolic CHF - continue home meds. 5. PAD - complicating wound healing. DVT ppx: SCDs and chemoppx contraindicated. DC planning: PTOT. This patient was seen by Washington Proctor PA-C under the supervision of Dr. Lucas. <Cony Lucas - Last Filed: 02/17/18 19:01> Problem List 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 (2) Nonischemic cardiomyopathy Status: Chronic (3) Chronic systolic CHF (congestive heart failure) Status: Chronic (4) Chronic atrial fibrillation Status: Chronic (5) Peripheral vascular disease of extremity with claudication Status: Chronic History of Present Illness The patient is a 77 year old M [] Past Medical History Allergies codeine Adverse Reaction (Verified 09/29/17 09:53) Nausea - Physical Exam Vital Signs Temp Pulse Resp BP Pulse Ox 98.0 F 114 H 18 106/61 100 02/17/18 14:47 02/17/18 15:39 02/17/18 14:47 02/17/18 14:47 02/17/18 14:47 Oxygen Delivery Method Room Air Weight: 92.533 kg Body Mass Index (BMI) 27.6 Assessment/Plan Patient was seen and examined with physician dental front office assistant Washington Proctor. I agree with his above history physical exam and assessment and plan as documented. Patient is a 77-year-old male with past medical history of chronic atrial fibrillation, on Eliquis and aspirin, history of chronic systolic CHF, nonischemic, history of chronic bilateral leg edema secondary to chronic venostasis with stasis dermatitis and ulcers. Had history of chronic ulcers since having his cardiomyopathy. These ulcers have taken more than 1 year to heal. He has been following up with the wound clinic for his left leg ulcer and follows up with Dr. Cleary. This week, the patient says he had wound debridement done in the wound center with bleeding for which a stitch was put in his leg to stop the bleeding. He was trying to change his dressing this morning, when the wound started gushing blood. Denied any fever or chills or dizziness or chest pain or shortness of breath. History of MRSA. Review of systems was essentially negative. 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 GEN: Alert and oriented ?3, not pale, no jaundice, well-hydrated CVS: Heart sounds 1 and 2 heard, no murmurs were heard, regular, no tachycardia RESP: Clinically clear to auscultation EXT: Lower edema, chronic, +2, with large tibia ulcer, appears to have stopped, bone exposed, ulcer at the heel of the foot. 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 Martínez in the outpatient, no signs of acute exacerbation Plan: Podiatry consult, ID consult, IV hydration, IV vancomycin, pharmacy to dose vancomycin, IV ceftriaxone, hold Eliquis and aspirin for now light of active bleeding, would resume heparin subcu for DVT prophylaxis from tomorrow Code Visit Inpatient E&M: 19608 Init Hosp L3
--- NOTE | 2018-02-17 18:17 | PCM.CONS.GEN ---
Reason for Consult Date of Consultation: 02/17/18 Reason for Consultation: Ulcer left leg History of Present Illness: The patient is a 77 year old male with history nonhealing ulcerations leg lower extremity was seen today at bedside - anterior leg and posterior leg. He was admitted today after he presented to the ER due to significant bleeding from the left anterior leg ulcer site, he did present to the ER with a tourniquet around leg to stop the bleeding. He also relates to purulent drainage from the wound, and wound is deep down to tendon and bone; recent culture from 02/14/18 growing MRSA. He has been following at the wound center, recently saw Dr. Cleary this past Monday. Today WBC is WNL. ESR and CRP are elevated. Patient does have history of chronic venous insufficiency as well as chronic peripheral arterial disease to the lower extremites. He relates he has has seen Dr. Maloney in the past. Patient does admit he does not elevate his legs as he should. Patient was admitted for further workup and management. 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) CKD (chronic kidney disease) stage 3, GFR 30-59 ml/min (Chronic) Anemia (Chronic) Nonischemic cardiomyopathy (Chronic) Chronic systolic CHF (congestive heart failure) (Chronic) Chronic atrial fibrillation (Chronic) Bilateral edema of lower extremity (Chronic) Open wounds involving multiple regions of lower extremity (Chronic) Neuropathic pain, leg, bilateral (Chronic) Pain, lower extremity (Chronic) PAOD (peripheral arterial occlusive disease) (Chronic) Peripheral vascular disease of extremity with claudication (Chronic) Allergies codeine Adverse Reaction (Verified 09/29/17 09:53) Nausea Home Medications: Ambulatory Orders Medication Instructions Recorded Aspirin E.C. [Ecotrin] 81 mg PO DAILY@0800 11/06/15 Furosemide [Lasix] 40 mg PO BID 11/06/15 Potassium Chloride [Klor-Con M10] 10 meq PO BID 11/06/15 Apixaban [Eliquis] 5 mg PO BID 05/24/17 Carvedilol [Coreg (Beta Min)] 12.5 mg PO BID 05/24/17 Lisinopril [Zestril] 10 mg PO DAILY 05/24/17 Surgical History: appendectomy, herniorrhaphy, - - Hand surgery Psychiatric History: No pertinent psych hx Lives: Spouse/ Significant Other Smoking Status: Former smoker Tobacco Use: Non-smoker Alcohol: None Drugs: None - *Family History Maternal History Items: Dementia Paternal History Items: - - venous ulcers Review of Systems Constitutional: Denies: Chills, Fever Gastrointestinal: Denies: Nausea, Vomiting - Physical Exam General: Alert, Oriented x3, Cooperative, No apparent distress Extremities: Capillary Refill Less than 3 Seconds, - - Large anterior left leg ulceration measuring ~10cm x 5cm down to subcutaneous tissue, anterior tibial tendon and anterior tibia present, fibrogranular base, there is also smaller ulceration to the posterior left leg down to subcutaneous tissue with fibrogranular base, there is +maloder, there is edema to the leg and some erythema present, the bone of the anterior tibia which is visualized in the wound is hard, no visible abscess, no crepitus. There is no evidence of acute ischemia to the lower extremity bilateral. He relates there is pain localized to the ulcer sites left leg. There is chronic venous insufficiency to the lower extremity, pedal pulses intact however he does have chronic lower extremity arterial disease as well. Motor function intact to the lower extremity, but diffuse weakness is present. Sensation intact to lower extremities with light touch bilateral. Psych/Mental Status: Alert and oriented to time, place, person, mood and affect Vital Signs Temp Pulse Resp BP Pulse Ox 98.0 F 114 H 18 106/61 100 02/17/18 14:47 02/17/18 15:39 02/17/18 14:47 02/17/18 14:47 02/17/18 14:47 Oxygen Delivery Method Room Air Weight: 92.533 kg Body Mass Index (BMI) 27.6 Assessment/Plan All Active Problems 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 (Acute) Venous insufficiency (Acute) Cellulitis of left leg (Acute) Infected open wound (Acute) Nonhealing ulcer of left lower leg (Acute) Ulceration left lower extremity down to tendon and bone anterior aspect Ulceration left lower extremity down to subcutaneous tissue posterior aspect Peripheral vascular disease - venous and arterial - chronic MRSA infection left lower extremity Reviewed diagnostic data. Cultures from 02/14/18 have been reviewed, which are positive for MRSA. Patient on IV antibiotic therapy - vancomycin and rocephin at this time. Infectious Disease has been consulted. Previous xrays of the left leg reviewed from December 2017 - no evidence of osteomyelitis - however given bone exposure, elevated ESR and CRP with +MRSA wound culture an MRI is indicated for further evaluation - this was ordered. Blood cultures pending. New noninvasive lower extremity arterial study ordered - patient will need to follow up with vascular surgery given chronic venous and arterial disease to optimize healing. There is no evidence of acute ischemia at this time. Wound care: Aquacel Ag with overlying gauze and Kerlix dressing. Patient refused compression (even light compression) - he states it is to painful. He is to keep the left foot/leg elevated. Keep ulcer sites offloaded. Bleeding is controlled at this time, and no active bleeding is present at this time. Eliquis has been stopped at this time given the significant bleeding. I did speak and review with Dr. Huber. Podiatry will continue to follow patient.
[2018-02-17] MEDS: Acetaminophen 325 MG Tablet 650 MG PO (18:59)
--- NOTE | 2018-02-17 19:25 | RAD_ITS ---
STUDY: X-RAY - LEFT TIBIA AND FIBULA REASON FOR EXAM: Male, 77 years old. Ulceration of lower leg. TECHNIQUE: 4 view(s) of the tibia and fibula were obtained. COMPARISON: None. FINDINGS: Normal visualized tibia. Normal visualized fibula. There is a superficial ulcer within the posterior soft tissues of the lower leg distally. RAD/Tibia & Fibula 2 Views IMPRESSION: Superficial ulceration. No osseous abnormality. Electronically Signed: Bob Garcia MD at 21:12 EDT , Service support ,
--- NOTE | 2018-02-17 20:17 | PCM.RX.CS ---
Consult Pharmacy has been consulted to manage selected antiobiotic: Vancomycin Type of Consult: New start Suspected Infection: Skin/Soft tissue Prior Doses of Antibiotics Received/Current Regimen: Medications Vancomycin HCl 1,750 mg/ (Dextrose) 535 mls @ 250 mls/hr IV Q24H HALEY Discontinued Medications Vancomycin HCl 1,500 mg/ (Sodium Chloride) 530 mls @ 250 mls/hr IV X1 ONE Stop: 02/17/18 12:46 Last Admin: 02/17/18 12:00 Dose: 250 mls/hr Labs: Sodium 138 mmol/L (136-145) 02/17/18 11:19 Potassium 4.1 mmol/L (3.5-5.1) 02/17/18 11:19 Chloride 103 mmol/L (98-107) 02/17/18 11:19 Carbon Dioxide 26.0 mmol/L (21.0-32.0) 02/17/18 11:19 Anion Gap 9 (5-15) 02/17/18 11:19 BUN 49 mg/dL (7-18) H 02/17/18 11:19 Creatinine 1.39 mg/dL (0.70-1.30) H 02/17/18 11:19 Est GFR (MDRD) Af Amer 64 mL/min (>60) 02/17/18 11:19 Est GFR (MDRD) Non-Af 53 mL/min (>60) L 02/17/18 11:19 BUN/Creatinine Ratio 35.3 RATIO (10-20) H 02/17/18 11:19 Glucose 109 mg/dL (74-106) H 02/17/18 11:19 Weight used for dosin.5 kg Estimated Creatinine Clearance: 51 Goal Trough: 10-15 mcg/mL Pharmacy Plan for Drug Dosing: Pharmacy Service will continue to monitor and adjust dosing as required. Follow-Up Labs: Trough Vancomycin Labs to be done on [date and time ordered]: 02/19/18 @0730
[2018-02-17] MEDS: Carvedilol 12.5 MG Tablet PO (22:12)
[2018-02-18] VITALS (11 sets, daily range): BP systolic 87–106; BP diastolic 49–66; PULSE 84–107; RESP 15–18; TEMP 36.6–36.9; O2SAT 94–98
[2018-02-18 06:19] LABS: Hematocrit 30.1 % (40-54); Hemoglobin 9.8 g/dl (13.0-16.5); Mean Corp Hgb Conc 32.6 g/gl (32-36); Mean Corpuscular Hgb 30.2 pg (27.0-32.0); Mean Corpuscular Volume 92.6 fL (80-94); Mean Platelet Vol. 10.6 fl (6.2-12.0); Platelet Count 273 K/mm3 (150-450); RBC Distribution Width CV 13.4 % (11.6-14.6); RBC Distribution Width SD 44.2 fl (35.1-43.9); Red Blood Count 3.25 M/mm3 (4.6-6.2); White Blood Count 10.4 K/mm3 (4.4-11.0)
[2018-02-18 06:23] LABS: Scan Indicated on CBC? Y/N NO
[2018-02-18 06:35] LABS: Anion Gap 5 (5-15); BUN 25 mg/dL (7-18); BUN/Creat Ratio 30.2 RATIO (10-20); Calcium,Total 8.9 mg/dL (8.5-10.1); Chloride 111 mmol/L (98-107); Creatinine, Serum 0.83 mg/dL (0.70-1.30); EST Glomerular Filtration Rate 96 mL/min (>60); Est Glom Filt Rate - Afr Amer 116 mL/min (>60); Estimated Creatinine Clearance 83.11 ml/min; Glucose 104 mg/dL (74-106); Potassium 4.5 mmol/L (3.5-5.1); Sodium Level 142 mmol/L (136-145)
[2018-02-18] MEDS: Acetaminophen 325 MG Tablet 650 MG PO (08:17)
[2018-02-18] MEDS: Aspirin E.C. 81 MG Tablet PO (08:17)
[2018-02-18] MEDS: Carvedilol 25 MG Tablet PO (09:28)
[2018-02-18] MEDS: Furosemide 40 MG Tablet PO ×2 (09:28→17:38)
[2018-02-18] MEDS: Lisinopril 10 MG Tablet PO (09:28)
[2018-02-18] MEDS: Ceftriaxone 1 GM/50 ML BAG IV ×2 (11:05→21:30)
--- NOTE | 2018-02-18 12:46 | PN_ITS ---
<Washington Proctor - Last Filed: 02/18/18 12:29> Subjective: Pt remains comfortable in bed. Pain is minimal and well controlled. Using tylenol only. No fever/chills. No n/v. Appetite intact. Heart rate is improved. No palpitations, dizziness, LH. - Physical Exam General: Alert, Oriented x3, Cooperative HEENT: Atraumatic, PERRLA, EOMI, Normocephalic Neck: Supple, No JVD, Negative Carotid Bruits Lungs: Clear to auscultation, Normal air movement Cardiovascular: Regular rate, No murmurs Abdomen: Bowel Sounds Present, Soft, Non Tender Extremities: No edema, Capillary Refill Less than 3 Seconds Skin: No breakdown, - - erythema is receding away from demarcations. Musculoskeletal: No Tenderness to Palpation of Joints or Extremities Neurological: Cranial nerves II-XII grossly intact Psych/Mental Status: Normal Affect, Appropriate, Alert and oriented to time, place, person, mood and affect Vital Signs Temp Pulse Resp BP Pulse Ox 98.0 F 88 18 102/66 95 02/18/18 09:27 02/18/18 10:00 02/18/18 09:27 02/18/18 09:27 02/18/18 09:27 Oxygen Delivery Method Room Air Weight: 92.986 kg Body Mass Index (BMI) 27.6 Intake and Output for Last 24 Hours 02/16/18 02/17/18 02/18/18 23:59 23:59 23:59 Intake Total 2460 / 2460 1450 / 1450 Output Total 1000 / 1000 1250 / 1250 Balance 1460 / 1460 200 / 200 Laboratory Tests Past 24 Hrs 02/18/18 02/18/18 05:20 05:20 WBC 10.4 RBC 3.25 L Hgb 9.8 L Hct 30.1 L MCV 92.6 MCH 30.2 MCHC 32.6 RDW 13.4 RDW Differential 44.2 H Plt Count 273 MPV 10.6 Sodium 142 Potassium 4.5 Chloride 111 H Carbon Dioxide 26.0 Anion Gap 5 BUN 25 H Creatinine 0.83 Estim Creat Clear Calc 83.11 Est GFR (MDRD) Af Amer 116 Est GFR (MDRD) Non-Af 96 BUN/Creatinine Ratio 30.2 H Glucose 104 Calcium 8.9 Medical Necessity - Tobacco Use Smoking Status: Former smoker Tobacco Use: Non-smoker Assessment/Plan All Active Problems 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 (Acute) Venous insufficiency (Acute) Cellulitis of left leg (Acute) Infected open wound (Acute) Nonhealing ulcer of left lower leg (Acute) 1. Bleeding, nonhealing wound, LLE chronic venous stasus, open to bone, some surrounding erythema concerning for cellulitis. Hx MRSA. Continue vanc and ceftriaxone. Consult to Dr. Cleary. Consult ID. Elevated CRP/ESR. -XR without bone involvement. -Follow up with MRI to r/o osteo. -bleeding controlled. -no fever/wbc elevation -PVR study ordered. -He does not tolerate any compression 2. Chronic AF - tachy, missed AM meds. restart now. 3. Anemia - mild. blood loss, bleeding now controlled. Trend 4. Hx Nonischemic CM and systolic CHF - continue home meds. 5. PAD - complicating wound healing. DVT ppx: SCDs and chemoppx contraindicated. DC planning: PTOT. This patient was seen by Washington Proctor PA-C under the supervision of Dr. Lucas. <Cony Lucas - Last Filed: 02/18/18 16:07> - Physical Exam Vital Signs Temp Pulse Resp BP Pulse Ox 98.3 F 93 18 106/49 L 96 02/18/18 14:33 02/18/18 14:33 02/18/18 14:33 02/18/18 14:33 02/18/18 14:33 Oxygen Delivery Method Room Air Weight: 92.986 kg Body Mass Index (BMI) 27.6 Intake and Output for Last 24 Hours 02/16/18 02/17/18 02/18/18 23:59 23:59 23:59 Intake Total 2460 / 2460 1450 / 1450 Output Total 1000 / 1000 1250 / 1250 Balance 1460 / 1460 200 / 200 Laboratory Tests Past 24 Hrs 02/18/18 02/18/18 05:20 05:20 WBC 10.4 RBC 3.25 L Hgb 9.8 L Hct 30.1 L MCV 92.6 MCH 30.2 MCHC 32.6 RDW 13.4 RDW Differential 44.2 H Plt Count 273 MPV 10.6 Sodium 142 Potassium 4.5 Chloride 111 H Carbon Dioxide 26.0 Anion Gap 5 BUN 25 H Creatinine 0.83 Estim Creat Clear Calc 83.11 Est GFR (MDRD) Af Amer 116 Est GFR (MDRD) Non-Af 96 BUN/Creatinine Ratio 30.2 H Glucose 104 Calcium 8.9 Assessment/Plan Patient was seen and examined independently. I agree with the above interval history, physical examination assessment and plan as documented by Washington Proctor. Patient has no new complaints. No acute events overnight. Denied any pain in the leg. Lower extremity swelling is improved. No more bleeding seen overnight. Appreciate podiatry consult. Denies any fevers or chills or shortness of breath or chest pain. Vitals reviewed, are stable, tachycardia is improved, but slightly tachycardic. Physical exam is essentially unchanged in the same as documented above in Washington Proctor's notes. Discussed with a hotel front desk clerk, patient to be get an MRI of the lower extremity. Continue with vancomycin, ceftriaxone, infectious disease consult Increase Coreg to 25 mg p.o. twice daily Code Visit Inpatient E&M: 76866 Subs Hosp L2
--- NOTE | 2018-02-18 15:40 | PN_ITS ---
Subjective: Patient seen today for follow up on left leg. No new complaints, no acute events since overnight. No fevers, WBC WNL. He is resting in bed. He denies fever, chills, nausea, or vomiting. - Physical Exam General: Alert, Oriented x3, Cooperative, No apparent distress Extremities: Capillary Refill Less than 3 Seconds, - - Reviewed with nursing: Anterior left leg ulceration (measuring ~10cm x 5cm down to subcutaneous tissue , anterior tibial tendon and anterior tibia present) and ulceration to the posterior left leg (down to subcutaneous tissue) with less erythema, and otherwise stable, no active bleeding. There is no evidence of acute ischemia to the lower extremity bilateral. Pain to ulcerations controlled. Vital Signs Temp Pulse Resp BP Pulse Ox 98.3 F 93 18 106/49 L 96 02/18/18 14:33 02/18/18 14:33 02/18/18 14:33 02/18/18 14:33 02/18/18 14:33 Oxygen Delivery Method Room Air Weight: 92.986 kg Body Mass Index (BMI) 27.6 Intake and Output for Last 24 Hours 02/16/18 02/17/18 02/18/18 23:59 23:59 23:59 Intake Total 2460 / 2460 1450 / 1450 Output Total 1000 / 1000 1250 / 1250 Balance 1460 / 1460 200 / 200 Laboratory Tests Past 24 Hrs 02/18/18 02/18/18 05:20 05:20 WBC 10.4 RBC 3.25 L Hgb 9.8 L Hct 30.1 L MCV 92.6 MCH 30.2 MCHC 32.6 RDW 13.4 RDW Differential 44.2 H Plt Count 273 MPV 10.6 Sodium 142 Potassium 4.5 Chloride 111 H Carbon Dioxide 26.0 Anion Gap 5 BUN 25 H Creatinine 0.83 Estim Creat Clear Calc 83.11 Est GFR (MDRD) Af Amer 116 Est GFR (MDRD) Non-Af 96 BUN/Creatinine Ratio 30.2 H Glucose 104 Calcium 8.9 Medical Necessity - Tobacco Use Smoking Status: Former smoker Tobacco Use: Non-smoker Assessment/Plan All Active Problems 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 (Acute) Venous insufficiency (Acute) Cellulitis of left leg (Acute) Infected open wound (Acute) Nonhealing ulcer of left lower leg (Acute) Ulceration left lower extremity down to tendon and bone anterior aspect Ulceration left lower extremity down to subcutaneous tissue posterior aspect Peripheral vascular disease - venous and arterial - chronic MRSA infection left lower extremity Reviewed diagnostic data. Cultures from 02/14/18 have been reviewed, which are positive for MRSA. Patient on IV antibiotic therapy - vancomycin and rocephin at this time. Infectious Disease has been consulted. Xrays from yesterday without noted bone involvement, MRI is pending. Blood cultures pending. New noninvasive lower extremity arterial study have been ordered. There is no evidence of acute ischemia at this time. Wound care: Aquacel Ag with overlying gauze and Kerlix dressing. He is to keep the left foot/leg elevated. Keep ulcer sites offloaded. Bleeding is controlled at this time, and no active bleeding is present at this time. Eliquis has been resumed. Podiatry will continue to follow patient.
[2018-02-18] MEDS: APIXABAN 5 MG TABLET PO (21:38)
--- NOTE | 2018-02-19 07:00 | MRI_ITS ---
STUDY: MRI LEFT LOWER LEG WITHOUT CONTRAST REASON FOR EXAM: Male, 77 years old. Calf cellulitis, anteriorly open wound. TECHNIQUE: Standardized fat and water weighted pulse sequences were obtained in all 3 orthogonal planes. IV contrast was not utilized. COMPARISON: X-ray left tibia/fibula: 02/17/2018 FINDINGS: The examination demonstrate a 8.5 mm wide cutaneous/deep subcutaneous defect extending through the cortex of the tibia to the skin surface along the anterior aspect of the lower extremity. No definite cortical destruction/osseous abnormality or evidence of osteomyelitis demonstrated on this noncontrast exam. Medially in the lower leg distally subcutaneous T1-weighted high signal edema/hemorrhage is demonstrated. More distally in the lower leg laterally T2-weighted high signal in subcutaneous fat and intermuscular fascial planes is demonstrated, suggestive of cellulitis and non-necrotizing fasciitis. No drainable fluid collection/abscess formation is evident. MRI/Lower Ext/No Jt/w/o IMPRESSION: Superficial ulceration, cellulitis, subcutaneous hemorrhage/edema in the lower leg distally demonstrated as described without demonstrable cortical destruction/osseous abnormality to suggest osteomyelitis. Electronically Signed: Columba Mast MD at 8:16 EDT Tel , Service support ,
[2018-02-28 14:31] LABS: Vancomycin, Trough Level 8.8 ug/mL (5.0-15.0)
--- NOTE | 2018-03-03 09:12 | LEAS ---
Arterial Study - Arterial Study Arterial Study: This is a 77-year-old male with a history of peripheral arterial occlusive disease, atrial fibrillation, and smoking. He presents with a chronic nonhealing wound to the left lower extremity. With a history of, and suspecting, peripheral arterial occlusive disease, the patient was brought to the noninvasive vascular laboratory at this time for the purpose of bilateral noninvasive lower extremity arterial assessment. Doppler signal assessment was used to evaluate the pulses at ankle level bilaterally. The posterior tibial pulses were biphasic bilaterally. The dorsalis pedis pulses were monophasic bilaterally. Segmental limb pressures were obtained bilaterally. The right low thigh pressure was measured at 64 mmHg. The right calf pressure was measured at 68 mmHg. The right ankle pressure, as determined by posterior tibial pulse, was measured at 48 mmHg. The right ankle pressure, as determined by dorsalis pedis pulse, was measured at 49 mmHg. The left low thigh pressure was measured at 52 mmHg. The left calf pressure was measured at 44 mmHg. The left ankle pressure, as determined by posterior tibial pulse, was measured at 41 mmHg. The left ankle pressure, as determined by dorsalis pedis pulse, was measured at 46 mmHg. Pulse-volume recordings were obtained bilaterally and segmentally. Waveform amplitudes appeared to be diminished at low thigh, calf, and ankle levels. Resting ankle-brachial indices were calculated bilaterally. The resting right ankle-brachial index was calculated to be 0.45. The resting left ankle-brachial index was calculated to be 0.42. Impression: Based upon the findings of this resting noninvasive lower extremity arterial study, there is evidence of severe arterial occlusive disease in the lower extremities bilaterally. Biphasic and monophasic waveforms were noted at ankle level bilaterally. Resting ankle-brachial indices are severely diminished bilaterally. These findings suggest the presence of severe arterial occlusive disease in both lower extremities, which appears to be related to arterial inflow disease at the aorto-iliac or ilio-femoral levels. Clinical correlation is advised.
--- NOTE | 2018-03-03 09:19 | LEAS_ITS ---
Arterial Study - Arterial Study Arterial Study: This is a 77-year-old male with a history of peripheral arterial occlusive disease, atrial fibrillation, and smoking. He presents with a chronic nonhealing wound to the left lower extremity. With a history of, and suspecting , peripheral arterial occlusive disease, the patient was brought to the noninvasive vascular laboratory at this time for the purpose of bilateral noninvasive lower extremity arterial assessment. Doppler signal assessment was used to evaluate the pulses at ankle level bilaterally. The posterior tibial pulses were biphasic bilaterally. The dorsalis pedis pulses were monophasic bilaterally. Segmental limb pressures were obtained bilaterally. The right low thigh pressure was measured at 64 mmHg. The right calf pressure was measured at 68 mmHg. The right ankle pressure, as determined by posterior tibial pulse, was measured at 48 mmHg. The right ankle pressure, as determined by dorsalis pedis pulse, was measured at 49 mmHg. The left low thigh pressure was measured at 52 mmHg. The left calf pressure was measured at 44 mmHg. The left ankle pressure , as determined by posterior tibial pulse, was measured at 41 mmHg. The left ankle pressure, as determined by dorsalis pedis pulse, was measured at 46 mmHg. Pulse-volume recordings were obtained bilaterally and segmentally. Waveform amplitudes appeared to be diminished at low thigh, calf, and ankle levels. Resting ankle-brachial indices were calculated bilaterally. The resting right ankle-brachial index was calculated to be 0.45. The resting left ankle- brachial index was calculated to be 0.42. Impression: Based upon the findings of this resting noninvasive lower extremity arterial study, there is evidence of severe arterial occlusive disease in the lower extremities bilaterally. Biphasic and monophasic waveforms were noted at ankle level bilaterally. Resting ankle-brachial indices are severely diminished bilaterally. These findings suggest the presence of severe arterial occlusive disease in both lower extremities, which appears to be related to arterial inflow disease at the aorto-iliac or ilio-femoral levels. Clinical correlation is advised.
== END 2018-02-20 16:50 | DRG 593 ==
LOC: ED 11:25 → MS3 13:32
PROVIDERS: Admitting Provider Internal Medicine; Emergency Provider Emergency Medicine; Family Provider Internal Medicine; PCP Internal Medicine; Visit Provider Internal Medicine
DX: L97.826 Non-pressure chronic ulcer of other part of left lower leg with bone involvement without evidence of necrosis (principal); D62 Acute posthemorrhagic anemia; L03.116 Cellulitis of left lower limb; M86.9 Osteomyelitis, unspecified; I13.0 Hypertensive heart and chronic kidney disease with heart failure and stage 1 through stage 4 chronic kidney disease, or unspecified chronic kidney disease; I50.20 Unspecified systolic (congestive) heart failure; L97.821 Non-pressure chronic ulcer of other part of left lower leg limited to breakdown of skin; A49.02 Methicillin resistant Staphylococcus aureus infection, unspecified site; I87.8 Other specified disorders of veins; I73.9 Peripheral vascular disease, unspecified; I87.2 Venous insufficiency (chronic) (peripheral); I48.2 Chronic atrial fibrillation; N18.3 Chronic kidney disease, stage 3 (moderate); B33.24 Viral cardiomyopathy; Z87.891 Personal history of nicotine dependence; L97.823 Non-pressure chronic ulcer of other part of left lower leg with necrosis of muscle; R60.0 Localized edema; L08.9 Local infection of the skin and subcutaneous tissue, unspecified; G57.93 Unspecified mononeuropathy of bilateral lower limbs; B95.62 Methicillin resistant Staphylococcus aureus infection as the cause of diseases classified elsewhere
CPT/HCPCS: 15271; 36415; 73590; 73718; 80048; 80202; 83605; 85025; 85027; 85652; 86140; 87040; 87070; 87075; 87077; 87186; 87205; 87640; 87641; 93923; 96365; 97162; 97165; 97802; 99285; J7040; J7050; Q4172; A4216; G8978; G8979; G8987; G8988

== ENCOUNTER 2018-02-20 16:50 | Inpatient (IN) | payer MEDICARE, OTHER, SELFPAY ==
--- NOTE | 2018-02-20 16:50 | DT_ITS ---
This patient was seen during an EMR downtime February 19, 2018 - February 26, 2018. This patient may have a combination of paper and electronic documentation or all paper documentation. All documentation is viewable within the e-chart portion of [email or web address] for each patient visit.
[2018-02-20 19:15] VITALS: BMI 25.3
--- NOTE | 2018-02-21 14:10 | RAD_ITS ---
STUDY: X-RAY CHEST REASON FOR EXAM: Male, 77 years old. Right PICC placement verification. TECHNIQUE: Single frontal view of the chest. COMPARISON: March 18, 2017 FINDINGS: A right PICC catheter has been placed with the tip projected into the mid-SVC. No complications are noted. There is stable low volume inspiration with bibasilar atelectasis. There is hyperlucency of the visualized lung nicole unchanged. There is no demonstrated pleural abnormality. There is stable borderline cardiomegaly. Normal mediastinum and philip. Normal visualized pulmonary arteries. Normal visualized aortic arch and descending thoracic aorta. Normal visualized thoracic spine. Normal visualized ribs, clavicles, and shoulders. There is no demonstrated abnormality of the visualized soft tissue structures of the upper abdomen. RAD/Chest 1 View (Portable) IMPRESSION: Stable borderline cardiomegaly, low volume inspiration and hyperlucency. Placement of right PICC catheter without complications. Electronically Signed: Bob Garcia MD at 11:44 EDT , Service support ,
[2018-02-22 11:41] LABS: BUN 18 mg/dL (7-18); Glucose 90 mg/dL (74-106)
[2018-02-22 11:42] LABS: Anion Gap 10 (5-15); BUN/Creat Ratio 17.8 RATIO (10-20); Calcium,Total 8.9 mg/dL (8.5-10.1); Chloride 104 mmol/L (98-107); Creatinine, Serum 1.01 mg/dL (0.70-1.30); EST Glomerular Filtration Rate 76 mL/min (>60); Est Glom Filt Rate - Afr Amer 92 mL/min (>60); Potassium 4.2 mmol/L (3.5-5.1); Sodium Level 138 mmol/L (136-145)
[2018-02-22 16:51] LABS: Hematocrit 33.2 % (40-54); Hemoglobin 10.4 g/dl (13.0-16.5); Mean Corp Hgb Conc 31.3 g/gl (32-36); Mean Corpuscular Hgb 29.6 pg (27.0-32.0); Mean Corpuscular Volume 94.6 fL (80-94); Mean Platelet Vol. 11.2 fl (6.2-12.0); Platelet Count 289 K/mm3 (150-450); RBC Distribution Width CV 13.7 % (11.6-14.6); RBC Distribution Width SD 45.3 fl (35.1-43.9); Red Blood Count 3.51 M/mm3 (4.6-6.2); White Blood Count 10.9 K/mm3 (4.4-11.0)
[2018-02-22 16:52] LABS: Absolute Lymphocyte Count 1.36 X10^3/ul (0.83-4.51); Absolute Neutrophil Count 8.2 X10^3/uL (2.0-7.7); Basophil# 0.02 X10^3/uL; Basophil% 0.2 % (0-1); Eosinophils% 1.8 % (0-5); Lymphocyte # 1.36 X10^3/ul (4.0); Lymphocyte % 12.5 % (19-41); Monocyte# 1.08 X10^3/uL; Monocyte% 9.9 % (0-10); Neutrophil % 75.6 % (47-70); POSITIVE COUNT NO; POSITIVE DIFFERENTIAL NO; POSITIVE MORPHOLOGY NO
--- NOTE | 2018-02-22 23:03 | PCM.PN.RX ---
<VishalBrady ruiz D - Last Filed: 02/22/18 23:03> Progress Note - Pharmacy Subjective: TCU Admission Objective: Allergies codeine Adverse Reaction (Verified 09/29/17 09:53) Nausea Current Medications Generic Name Dose Route Start Last Admin Trade Name Freq PRN Reason Stop Dose Admin Acetaminophen 1,000 mg 02/21/18 15:32 Tylenol PO Q8H PRN PRN PAIN Apixaban 5 mg 02/21/18 18:00 Eliquis PO BID [facility] Aspirin 81 mg 02/21/18 08:00 Aspirin, Baby PO DAILY@0800 [facility] Carvedilol 25 mg 02/21/18 18:00 Coreg PO BID [facility] Furosemide 40 mg 02/21/18 18:00 Lasix PO BID [facility] Vancomycin HCl 1,750 mg/ 535 mls @ 260 mls/hr 02/20/18 15:00 Sodium Chloride IV Q24H [facility] Ceftriaxone Sodium 1 gm in 50 mls @ 100 mls/hr 02/22/18 10:00 Rocephin IV DAILY@1000 [facility] Lactobacillus Acidophilus 1 tablet 02/21/18 18:00 Acidophilus PO BID [facility] Lisinopril 10 mg 02/21/18 06:00 Zestril PO DAILY [facility] Nutritional Formula 1 packet 02/21/18 06:00 [place] Flavor PO BID [facility] Nutritional Formula (Lactose Free) 120 ml 02/21/18 22:00 Ensure Enlive PO 4X/DAY [facility] Polyethylene Glycol 17 gm 02/21/18 15:33 Miralax PO DAILY PRN Potassium Chloride 10 meq 02/21/18 08[facility]00 [facility]na 2 tablet 02/21/18 15:34 Senokot PO DAILY PRN CONSTIPATION Sodium Chloride 5 - 30 ml 02/22/18 15:34 IV UD PRN SALINE FLUSH Sodium 138 mmol/L (136-145) 02/19/18 Unknown Potassium 4.2 mmol/L (3.5-5.1) 02/19/18 Unknown Chloride 104 mmol/L (98-107) 02/19/18 Unknown Carbon Dioxide 24.0 mmol/L (21.0-32.0) 02/19/18 Unknown Anion Gap 10 (5-15) 02/19/18 Unknown BUN 18 mg/dL (7-18) 02/19/18 Unknown Creatinine 1.01 mg/dL (0.70-1.30) 02/19/18 Unknown Est GFR (MDRD) Af Amer 92 mL/min (>60) 02/19/18 Unknown Est GFR (MDRD) Non-Af 76 mL/min (>60) 02/19/18 Unknown BUN/Creatinine Ratio 17.8 RATIO (10-20) 02/19/18 Unknown Glucose 90 mg/dL (74-106) 02/19/18 Unknown Assessment/Plan: 1) Pain APAP for pain. Continue to monitor prn medication use, daily pain scores. 2) ID Vancomycin, ceftriaxone. Continue to monitor s/s infection. 3) Cardiac ASA, apixaban, carvedilol, furosemide/KCl, lisinopril. Continue to monitor Hgb/Hct, BP/HR, renal function, electrolytes, s/s bleeding/clot. 4) GI Lactobacillus twice daily. Continue to monitor for s/s GI distress. 5) Nutrition Ensure, [place]. Continue to monitor clinically. Psychotropic Medications: None Unnecessary Medications: None Bowel Regimen: 6) Senna prn, PEG prn. Continue to monitor prn medication use, for constipation/diarrhea. Date of Note:: 02/22/18 - Provider Comments Provider responsibility: Provider responsible to enter orders to implement recommendations <Chacorta Trammell Chi - Last Filed: 02/26/18 18:17> Progress Note - Pharmacy Subjective: [] Objective: Allergies codeine Adverse Reaction (Verified 09/29/17 09:53) Nausea Current Medications Generic Name Dose Route Start Last Admin Trade Name Freq PRN Reason Stop Dose Admin Acetaminophen 1,000 mg 02/21/18 15:32 Tylenol PO Q8H PRN PRN PAIN Apixaban 5 mg 02/21/18 18:00 02/26/18 17:49 Eliquis PO 5 mg BID [facility] Administration Aspirin 81 mg 02/21/18 08:00 02/26/18 08:00 Aspirin, Baby PO 81 mg DAILY@0800 [facility] Administration Carvedilol 25 mg 02/21/18 18:00 02/26/18 17:48 Coreg PO 25 mg BID [facility] Administration Furosemide 40 mg 02/21/18 18:00 02/26/18 17:48 Lasix PO 40 mg BID [facility] Administration Ceftriaxone Sodium 1 gm in 50 mls @ 100 mls/hr 02/22/18 10:00 02/26/18 10:08 Rocephin IV 100 mls/hr DAILY@1000 [facility] Administration Vancomycin HCl 1,250 mg/ 275 mls @ 183.333 mls/hr 02/26/18 15:00 02/26/18 14:52 Sodium Chloride IV 183.333 mls/hr Q24H [facility] Administration Lactobacillus Acidophilus 1 tablet 02/21/18 18:00 02/26/18 17:48 Acidophilus PO 1 tablet BID [facility] Administration Lisinopril 10 mg 02/21/18 06:00 02/26/18 06:00 Zestril PO 10 mg DAILY [facility] Administration Nutritional Formula 1 packet 02/21/18 06:00 02/26/18 17:49 [place] Flavor PO 1 packet BID [facility] Administration Nutritional Formula (Lactose Free) 120 ml 02/21/18 22:00 02/26/18 15:26 Ensure Enlive PO 120 ml 4X/DAY [facility] Administration Polyethylene Glycol 17 gm 02/21/18 15:33 Miralax PO DAILY PRN Potassium Chloride 10 meq 02/21/18 08:00 02/26/18 17:48 K-Dur PO 10 meq BIDCM [facility] Administration Senna 2 tablet 02/21/18 15:34 Senokot PO DAILY PRN CONSTIPATION Sodium Chloride 5 - 30 ml 02/22/18 15:34 IV UD PRN SALINE FLUSH Vital Signs Pulse Resp Pulse Ox 74 16 95 02/26/18 17:54 02/26/18 17:54 02/26/18 17:54 Oxygen Delivery Method Room Air Sodium 139 mmol/L (136-145) 02/21/18 Unknown Potassium 4.0 mmol/L (3.5-5.1) 02/21/18 Unknown Chloride 100 mmol/L (98-107) 02/21/18 Unknown Carbon Dioxide 30.0 mmol/L (21.0-32.0) 02/21/18 Unknown Anion Gap 9 (5-15) 02/21/18 Unknown BUN 19 mg/dL (7-18) H 02/21/18 Unknown Creatinine 0.91 mg/dL (0.70-1.30) 02/21/18 Unknown Est GFR (MDRD) Af Amer 104 mL/min (>60) 02/21/18 Unknown Est GFR (MDRD) Non-Af 86 mL/min (>60) 02/21/18 Unknown BUN/Creatinine Ratio 20.9 RATIO (10-20) H 02/21/18 Unknown Glucose 99 mg/dL (74-106) 02/21/18 Unknown Vancomycin Trough 15.5 ug/mL (5.0-15.0) H 02/22/18 13:50 Assessment/Plan: Psychotropic Medications: Unnecessary Medications: Bowel Regimen: - Provider Comments Provider responsibility: Provider responsible to enter orders to implement recommendations Provider Comments to Recommendations by Pharmacy: Agree
--- NOTE | 2018-02-22 23:07 | PHA.CONS_ITS ---
<VishalBrady ruiz D - Last Filed: 02/22/18 23:03> Progress Note - Pharmacy Subjective: TCU Admission Objective: Allergies codeine Adverse Reaction (Verified 09/29/17 09:53) Nausea Current Medications Generic Name Dose Route Start Last Admin Trade Name Freq PRN Reason Stop Dose Admin Acetaminophen 1,000 mg 02/21/18 15:32 Tylenol PO Q8H PRN PRN PAIN Apixaban 5 mg 02/21/18 18:00 Eliquis PO BID [facility] Aspirin 81 mg 02/21/18 08:00 Aspirin, Baby PO DAILY@0800 [facility] Carvedilol 25 mg 02/21/18 18:00 Coreg PO BID [facility] Furosemide 40 mg 02/21/18 18:00 Lasix PO BID [facility] Vancomycin HCl 1,750 mg/ 535 mls @ 260 mls/hr 02/20/18 15:00 Sodium Chloride IV Q24H [facility] Ceftriaxone Sodium 1 gm in 50 mls @ 100 mls/hr 02/22/18 10:00 Rocephin IV DAILY@1000 [facility] Lactobacillus Acidophilus 1 tablet 02/21/18 18:00 Acidophilus PO BID [facility] Lisinopril 10 mg 02/21/18 06:00 Zestril PO DAILY [facility] Nutritional Formula 1 packet 02/21/18 06:00 [place] Flavor PO BID [facility] Nutritional Formula (Lactose Free) 120 ml 02/21/18 22:00 Ensure Enlive PO 4X/DAY [facility] Polyethylene Glycol 17 gm 02/21/18 15:33 Miralax PO DAILY PRN Potassium Chloride 10 meq 02/21/18 08:00 [facility]na 2 tablet 02/21/18 15:34 Senokot PO DAILY PRN CONSTIPATION Sodium Chloride 5 - 30 ml 02/22/18 15:34 IV UD PRN SALINE FLUSH Sodium 138 mmol/L (136-145) 02/19/18 Unknown Potassium 4.2 mmol/L (3.5-5.1) 02/19/18 Unknown Chloride 104 mmol/L (98-107) 02/19/18 Unknown Carbon Dioxide 24.0 mmol/L (21.0-32.0) 02/19/18 Unknown Anion Gap 10 (5-15) 02/19/18 Unknown BUN 18 mg/dL (7-18) 02/19/18 Unknown Creatinine 1.01 mg/dL (0.70-1.30) 02/19/18 Unknown Est GFR (MDRD) Af Amer 92 mL/min (>60) 02/19/18 Unknown Est GFR (MDRD) Non-Af 76 mL/min (>60) 02/19/18 Unknown BUN/Creatinine Ratio 17.8 RATIO (10-20) 02/19/18 Unknown Glucose 90 mg/dL (74-106) 02/19/18 Unknown Assessment/Plan: 1) Pain APAP for pain. Continue to monitor prn medication use, daily pain scores. 2) ID Vancomycin, ceftriaxone. Continue to monitor s/s infection. 3) Cardiac ASA, apixaban, carvedilol, furosemide/KCl, lisinopril. Continue to monitor Hgb/Hct, BP/HR, renal function, electrolytes, s/s bleeding/clot. 4) GI Lactobacillus twice daily. Continue to monitor for s/s GI distress. 5) Nutrition Ensure, [place]. Continue to monitor clinically. Psychotropic Medications: None Unnecessary Medications: None Bowel Regimen: 6) Senna prn, PEG prn. Continue to monitor prn medication use, for constipation/ diarrhea. Date of Note:: 02/22/18 - Provider Comments Provider responsibility: Provider responsible to enter orders to implement recommendations <Chacorta Trammell Chi - Last Filed: 02/26/18 18:17> Progress Note - Pharmacy Subjective: [] Objective: Allergies codeine Adverse Reaction (Verified 09/29/17 09:53) Nausea Current Medications Generic Name Dose Route Start Last Admin Trade Name Freq PRN Reason Stop Dose Admin Acetaminophen 1,000 mg 02/21/18 15:32 Tylenol PO Q8H PRN PRN PAIN Apixaban 5 mg 02/21/18 18:00 02/26/18 17:49 Eliquis PO 5 mg BID [facility] Administration Aspirin 81 mg 02/21/18 08:00 02/26/18 08:00 Aspirin, Baby PO 81 mg DAILY@0800 [facility] Administration Carvedilol 25 mg 02/21/18 18:00 02/26/18 17:48 Coreg PO 25 mg BID [facility] Administration Furosemide 40 mg 02/21/18 18:00 02/26/18 17:48 Lasix PO 40 mg BID [facility] Administration Ceftriaxone Sodium 1 gm in 50 mls @ 100 mls/hr 02/22/18 10:00 02/26/18 10:08 Rocephin IV 100 mls/hr DAILY@1000 [facility] Administration Vancomycin HCl 1,250 mg/ 275 mls @ 183.333 mls/hr 02/26/18 15:00 02/26/18 14: 52 Sodium Chloride IV 183.333 mls/hr Q24H [facility] Administration Lactobacillus Acidophilus 1 tablet 02/21/18 18:00 02/26/18 17:48 Acidophilus PO 1 tablet BID [facility] Administration Lisinopril 10 mg 02/21/18 06:00 02/26/18 06:00 Zestril PO 10 mg DAILY [facility] Administration Nutritional Formula 1 packet 02/21/18 06:00 02/26/18 17:49 [place] Flavor PO 1 packet BID [facility] Administration Nutritional Formula (Lactose Free) 120 ml 02/21/18 22:00 02/26/18 15:26 Ensure Enlive PO 120 ml 4X/DAY [facility] Administration Polyethylene Glycol 17 gm 02/21/18 15:33 Miralax PO DAILY PRN Potassium Chloride 10 meq 02/21/18 08:00 02/26/18 17:48 K-Dur PO 10 meq BIDCM [facility] Administration Senna 2 tablet 02/21/18 15:34 Senokot PO DAILY PRN CONSTIPATION Sodium Chloride 5 - 30 ml 02/22/18 15:34 IV UD PRN SALINE FLUSH Vital Signs Pulse Resp Pulse Ox 74 16 95 02/26/18 17:54 02/26/18 17:54 02/26/18 17:54 Oxygen Delivery Method Room Air Sodium 139 mmol/L (136-145) 02/21/18 Unknown Potassium 4.0 mmol/L (3.5-5.1) 02/21/18 Unknown Chloride 100 mmol/L (98-107) 02/21/18 Unknown Carbon Dioxide 30.0 mmol/L (21.0-32.0) 02/21/18 Unknown Anion Gap 9 (5-15) 02/21/18 Unknown BUN 19 mg/dL (7-18) H 02/21/18 Unknown Creatinine 0.91 mg/dL (0.70-1.30) 02/21/18 Unknown Est GFR (MDRD) Af Amer 104 mL/min (>60) 02/21/18 Unknown Est GFR (MDRD) Non-Af 86 mL/min (>60) 02/21/18 Unknown BUN/Creatinine Ratio 20.9 RATIO (10-20) H 02/21/18 Unknown Glucose 99 mg/dL (74-106) 02/21/18 Unknown Vancomycin Trough 15.5 ug/mL (5.0-15.0) H 02/22/18 13:50 Assessment/Plan: Psychotropic Medications: Unnecessary Medications: Bowel Regimen: - Provider Comments Provider responsibility: Provider responsible to enter orders to implement recommendations Provider Comments to Recommendations by Pharmacy: Agree
[2018-02-24 10:16] LABS: Anion Gap 9 (5-15); BUN 19 mg/dL (7-18); BUN/Creat Ratio 20.9 RATIO (10-20); Calcium,Total 9.2 mg/dL (8.5-10.1); Chloride 100 mmol/L (98-107); Creatinine, Serum 0.91 mg/dL (0.70-1.30); EST Glomerular Filtration Rate 86 mL/min (>60); Est Glom Filt Rate - Afr Amer 104 mL/min (>60); Glucose 99 mg/dL (74-106); Sodium Level 139 mmol/L (136-145)
[2018-02-25 16:25] LABS: Vancomycin, Trough Level 15.5 ug/mL (5.0-15.0)
[2018-02-26] MEDS: Carvedilol 25 MG Tablet PO ×2 (06:00→17:48)
[2018-02-26] MEDS: Lisinopril 10 MG Tablet PO (06:00)
[2018-02-26] MEDS: Furosemide 40 MG Tablet PO ×2 (06:00→17:48)
[2018-02-26] MEDS: APIXABAN 5 MG TABLET PO ×2 (06:00→17:49)
[2018-02-26] MEDS: Aspirin 81 MG TAB.CHEW PO (08:00)
[2018-02-26] MEDS: Ceftriaxone 1 GM/50 ML BAG IV (10:08)
[2018-02-26 11:38] LABS: Red Blood Count 3.83 M/mm3 (4.6-6.2); White Blood Count 10.5 K/mm3 (4.4-11.0)
[2018-02-26 11:39] LABS: Hematocrit 34.3 % (40-54); Hemoglobin 11.2 g/dl (13.0-16.5); Lymphocyte % 13.6 % (19-41); Mean Corp Hgb Conc 32.7 g/gl (32-36); Mean Corpuscular Hgb 29.2 pg (27.0-32.0); Mean Corpuscular Volume 89.6 fL (80-94); Mean Platelet Vol. 9.9 fl (6.2-12.0); Neutrophil % 73.4 % (47-70); POSITIVE COUNT NO; POSITIVE DIFFERENTIAL NO; POSITIVE MORPHOLOGY NO; Platelet Count 403 K/mm3 (150-450); RBC Distribution Width CV 13.4 % (11.6-14.6)
[2018-02-26 11:40] LABS: Absolute Lymphocyte Count 1.43 X10^3/ul (0.83-4.51); Absolute Neutrophil Count 7.8 X10^3/uL (2.0-7.7); Basophil% 0.2 % (0-1); Eosinophils% 4.3 % (0-5); Lymphocyte # 1.43 X10^3/ul (4.0); Monocyte% 8.3 % (0-10); Neutrophil # 7.75 X10^3/uL (2.7-7.7)
--- NOTE | 2018-02-26 11:56 | PCM.RX.CS ---
Consult Pharmacy has been consulted to manage selected antiobiotic: Vancomycin Type of Consult: Follow-up Suspected Infection: Skin/Soft tissue Labs: Sodium 139 mmol/L (136-145) 02/21/18 Unknown Potassium 4.0 mmol/L (3.5-5.1) 02/21/18 Unknown Chloride 100 mmol/L (98-107) 02/21/18 Unknown Carbon Dioxide 30.0 mmol/L (21.0-32.0) 02/21/18 Unknown Anion Gap 9 (5-15) 02/21/18 Unknown BUN 19 mg/dL (7-18) H 02/21/18 Unknown Creatinine 0.91 mg/dL (0.70-1.30) 02/21/18 Unknown Est GFR (MDRD) Af Amer 104 mL/min (>60) 02/21/18 Unknown Est GFR (MDRD) Non-Af 86 mL/min (>60) 02/21/18 Unknown BUN/Creatinine Ratio 20.9 RATIO (10-20) H 02/21/18 Unknown Glucose 99 mg/dL (74-106) 02/21/18 Unknown Vancomycin Trough 15.5 ug/mL (5.0-15.0) H 02/22/18 13:50 Goal Trough: 10-15 mcg/mL - DOSE CHANGE TO 1250MG Q24H, TROUGH 02/28/18 @ 1430 Pharmacy Plan for Drug Dosing: Pharmacy Service will continue to monitor and adjust dosing as required.
--- NOTE | 2018-02-26 15:25 | CASEMGMT ---
Brief interview for mental status (BIMS) and resident mood interview (PHQ-9) completed on this day. BIMS score 15. PHQ-9 score 11/14. Ayanna WETZEL, SHIPPING TEAM LEADER
[2018-02-26 17:54] VITALS: PULSE 74; RESP 16; O2SAT 95
[2018-02-26] MEDS: 0.9% NaCl Peripheral Flush Adult/Peds IV (21:11)
--- NOTE | 2018-02-27 01:53 | NURSING ---
Code status discussed with pt at this time. Pt wishes to be a full code.
[2018-02-27] MEDS: Carvedilol 25 MG Tablet PO ×2 (05:03→18:11)
[2018-02-27] MEDS: APIXABAN 5 MG TABLET PO ×2 (05:03→18:09)
[2018-02-27] MEDS: Lisinopril 10 MG Tablet PO (05:04)
[2018-02-27] MEDS: Furosemide 40 MG Tablet PO ×2 (05:04→18:09)
[2018-02-27 05:14] LABS: Absolute Neutrophil Count 7.4 X10^3/uL (2.0-7.7); Basophil# 0.03 X10^3/uL; Basophil% 0.3 % (0-1); Eosinophil# 0.37 X10^3/uL; Eosinophils% 3.6 % (0-5); Hematocrit 32.6 % (40-54); Hemoglobin 10.3 g/dl (13.0-16.5); Lymphocyte % 13.8 % (19-41); Mean Corp Hgb Conc 31.6 g/gl (32-36); Mean Corpuscular Hgb 29.3 pg (27.0-32.0); Mean Corpuscular Volume 92.9 fL (80-94); Mean Platelet Vol. 9.9 fl (6.2-12.0); Monocyte# 0.95 X10^3/uL; Monocyte% 9.3 % (0-10); Neutrophil % 72.7 % (47-70); Platelet Count 449 K/mm3 (150-450); RBC Distribution Width CV 13.5 % (11.6-14.6); Red Blood Count 3.51 M/mm3 (4.6-6.2); White Blood Count 10.2 K/mm3 (4.4-11.0)
[2018-02-27 05:34] LABS: POSITIVE COUNT NO; POSITIVE DIFFERENTIAL NO; POSITIVE MORPHOLOGY NO
[2018-02-27 05:47] LABS: Anion Gap 8 (5-15); BUN 37 mg/dL (7-18); BUN/Creat Ratio 32.2 RATIO (10-20); Chloride 104 mmol/L (98-107); Creatinine, Serum 1.15 mg/dL (0.70-1.30); EST Glomerular Filtration Rate 66 mL/min (>60); Est Glom Filt Rate - Afr Amer 79 mL/min (>60); Glucose 114 mg/dL (74-106); Potassium 4.3 mmol/L (3.5-5.1); Sodium Level 141 mmol/L (136-145)
[2018-02-27 08:41] LABS: Vancomycin, Trough Level 17.9 ug/mL (5.0-15.0)
[2018-02-27] MEDS: Aspirin 81 MG TAB.CHEW PO (09:27)
[2018-02-27] MEDS: Ceftriaxone 1 GM/50 ML BAG IV (11:50)
[2018-02-27] MEDS: 0.9% NaCl Peripheral Flush Adult/Peds IV ×2 (11:50→23:59)
--- NOTE | 2018-02-27 13:35 | PCM.PN.ID ---
Subjective: Feeling well, no fever, no n/v/d, no issues with picc. - Physical Exam General: Alert, Cooperative, No apparent distress Lungs: Clear to auscultation, Normal air movement Cardiovascular: Regular rate, Regular Rhythm Abdomen: Soft, Non Tender, Non-Distended Skin: Ulcer/ Wound - L ray wrapped Vital Signs Pulse Resp Pulse Ox 74 16 95 02/26/18 17:54 02/26/18 17:54 02/26/18 17:54 Oxygen Delivery Method Room Air Weight: 87.1 kg Body Mass Index (BMI) 25.3 Intake and Output for Last 24 Hours 02/25/18 02/26/18 02/27/18 23:59 23:59 23:59 Intake Total 840 / 840 660 / 660 Output Total 800 / 800 300 / 300 Balance 40 / 40 360 / 360 Laboratory Tests Past 24 Hrs 02/25/18 02/27/18 02/27/18 13:04 05:00 05:00 WBC 10.2 RBC 3.51 L Hgb 10.3 L Hct 32.6 L MCV 92.9 MCH 29.3 MCHC 31.6 L RDW 13.5 RDW Differential 44.0 H Plt Count 449 MPV 9.9 Immature Gran % (Auto) 0.300 Neut % (Auto) 72.7 H Lymph % (Auto) 13.8 L [place] % (Auto) 9.3 Eos % (Auto) 3.6 Baso % (Auto) 0.3 Absolute Neuts (auto) 7.4 Absolute Lymphs (auto) 1.40 Total Counted Not Reportable Sodium 141 Potassium 4.3 Chloride 104 Carbon Dioxide 29.0 Anion Gap 8 BUN 37 H Creatinine 1.15 Est GFR (MDRD) Af Amer 79 Est GFR (MDRD) Non-Af 66 BUN/Creatinine Ratio 32.2 H Glucose 114 H Calcium 9.0 Vancomycin Trough 17.9 H Medical Necessity - Tobacco Use Smoking Status: Former smoker Route of nutrition/ use of supplements: [] Nutritional Intake: [] IV Site: [] [place] Catheter: [] - Assessment/Plan Antibiotics: [] Assessment/Plan: [] 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 Cont iv vanc while in TCU. Plan for discharge will be 4 more weeks of po doxy 100mg bid and 2 weeks of augmentin 875mg bid. ID follow-up at wound center. Will follow.
--- NOTE | 2018-02-27 14:13 | NURSING ---
Dr. Moya in to see patient, NO to d/c iv rocephin and start augmentin 875mg PO BID and doxycycline 100mg PO BID. Patient made aware.
[2018-02-27 15:45] VITALS: BP 105/58; PULSE 54; RESP 16; TEMP 36.7
--- NOTE | 2018-02-27 16:16 | CHAPLAIN ---
Type of Pastoral Visit _x__ Initial Visit ___ Follow-up Visit ___ On-call Visit ___ General Patient Visit ___ Spiritual Assessment ___ Family Conference ___ Bereavement ___ Rapid Response ___ Code Blue ___ Other (describe below) Pastoral Care Referral From _x__ Patient ___ Family ___ Nurse ___ Physician ___ Veterinary Inspector ___ Hand Bender ___ Other (describe below) Sacrament/Intervention _x__ Active listening ___ Anointing ___ Mandaen ___ Bereavement ___ Communion _x__ Yin exploration ___ _x__ Life review _x__ Prayer ___ Reconciliation ___ Sacrament of Sick ___ Supportive presence ___ Wedding ___ Other (describe below) Pastoral Comments
[2018-02-27] MEDS: Doxycycline 100 MG CAPSULE PO (18:10)
--- NOTE | 2018-02-27 18:18 | NURSING ---
PT STATED TO THIS NURSE THAT HIS SIDE AND BACK WAS ITCHY. THIS NURSE SEEN BACK WAS RED AND SLIGHTLY RAISED. REPORTED TO NUNO GAFFNEY
--- NOTE | 2018-02-27 18:31 | NURSING ---
Patient has a red, pruritic rash to back, Dr. Trammell made aware, NO for hytone 2.5% cream.
[2018-02-27] MEDS: Amox/Clavulanate 875 MG Tablet PO (21:20)
[2018-02-27] MEDS: Hydrocortisone 2.5% Crm 1 APPLIC TOPICAL (21:20)
[2018-02-27 21:53] VITALS: PULSE 87; RESP 18; O2SAT 97
--- NOTE | 2018-02-28 02:04 | NURSING ---
Pt remains in contact precautions this shift d/t MRSA in wound, all nursing care provided in room.
[2018-02-28] MEDS: Furosemide 40 MG Tablet PO ×2 (05:58→18:16)
[2018-02-28] MEDS: Hydrocortisone 2.5% Crm 1 APPLIC TOPICAL ×3 (05:58→20:58)
[2018-02-28] MEDS: Carvedilol 25 MG Tablet PO ×2 (05:58→18:17)
[2018-02-28] MEDS: Doxycycline 100 MG CAPSULE PO ×2 (05:59→18:16)
[2018-02-28] MEDS: Lisinopril 10 MG Tablet PO (05:59)
[2018-02-28] MEDS: APIXABAN 5 MG TABLET PO ×2 (05:59→18:16)
[2018-02-28] MEDS: Amox/Clavulanate 875 MG Tablet PO ×2 (08:00→18:16)
[2018-02-28] MEDS: Aspirin 81 MG TAB.CHEW PO (08:00)
[2018-02-28 10:00] VITALS: PULSE 91; RESP 18; O2SAT 96
--- NOTE | 2018-02-28 10:59 | CASEMGMT ---
Plan of care meeting held. Resident present as well as resident spouse. No discharge date set at this time. Resident plans to continue with further care and treatment on the Transitional Care Unit at this time. Resident plans to discharge home with spouse at time of discharge. Support given. Will continue to follow. Ayanna WETZEL, [employer] MAINFRAME DEVELOPER
--- NOTE | 2018-02-28 10:59 | NURSING ---
PT IN PRECAUTIONS FOR MRSA IN WOUND.
[2018-02-28] MEDS: Tuberculin,Purif.prot.deriv. 50 TU/ML Vial 5 ML ID (11:00)
--- NOTE | 2018-02-28 15:23 | NURSING ---
PT RASH NOW SPREADING TO BUTTOCKS,THIGHS, AND CHEST. PT WAS REFUSING THE CREAM ORDERED. NUNO GAFFNEY AND NUNO MARTIN IN ROOM ALSO TALKED TO PT ABOUT USEING THE CREAM. PT STATED I LOVE TO ITCH IT WILL GO AWAY IN A FEW DAYS. AFTER A LITTLE MORE EDUCATION PT FINALLY AGREED TO LET THIS NURSE PUT CREAM ON.
[2018-02-28 15:33] VITALS: BP 110/48; PULSE 91; RESP 28; TEMP 37.4; O2SAT 96
--- NOTE | 2018-02-28 17:56 | NURSING ---
Rash spreading to buttock, chest and rib. Dr Trammell aware. Would like us to try Hytone cream first. Resident previously refusing cream but willing to try some.
[2018-02-28] MEDS: 0.9% NaCl Peripheral Flush Adult/Peds IV (21:31)
[2018-03-01] MEDS: APIXABAN 5 MG TABLET PO ×2 (05:02→17:45)
[2018-03-01] MEDS: Carvedilol 25 MG Tablet PO ×2 (05:02→17:45)
[2018-03-01] MEDS: Lisinopril 10 MG Tablet PO (05:02)
[2018-03-01] MEDS: Furosemide 40 MG Tablet PO ×2 (05:02→17:47)
[2018-03-01] MEDS: Doxycycline 100 MG CAPSULE PO ×2 (05:02→17:45)
[2018-03-01] MEDS: Hydrocortisone 2.5% Crm 1 APPLIC TOPICAL ×2 (05:03→20:52)
[2018-03-01] MEDS: Amox/Clavulanate 875 MG Tablet PO ×2 (07:12→17:44)
[2018-03-01] MEDS: Aspirin 81 MG TAB.CHEW PO (07:12)
[2018-03-01] MEDS: Acetaminophen 500 MG Tablet 1000 MG PO ×2 (07:12→21:06)
--- NOTE | 2018-03-01 12:15 | PCM.PROGNOTE ---
Subjective: This 77 year old male patient was seen today resting bedside for follow up and dressing change of left lower leg ulcers. Patient has no new complaints at this time today. He denies any feelings of nausea, vomiting, fever, or chills. - Physical Exam General: Alert, Oriented x3, Cooperative Extremities: Capillary Refill Less than 3 Seconds, No Calf Tenderness - negative rima and celeste sign, Edema - lower extremity Skin: Ulcer/ Wound - Ulcer to left anterior ray down to subcutaneous level with visualization of ant tib tendon and some ant tibia present. Ulcer measures approximately 10cm x 5cm. There is mixture of granular tissue, fibrotic tissue, slough to the base. There are two smaller ulcers to the posterior calf down to subcutaneous tissue as well. These did not probe to bone. These ulcers all appear stable at this time. There is no active bleeding noted. There continues to be no evidence of acute ischemia to the lower extremity bilateral. Pain continues to be controlled to ulcer sites. Musculoskeletal: Tenderness - Slight tenderness to direct palpation of ulcer sites. Neurological: Sensory exam intact to light touch and pain Psych/Mental Status: Normal Affect, Appropriate Vital Signs Temp Pulse Resp BP Pulse Ox 99.4 F H 91 28 H 110/48 L 96 02/28/18 15:33 02/28/18 15:33 02/28/18 15:33 02/28/18 15:33 02/28/18 15:33 Oxygen Delivery Method Room Air Weight: 87.1 kg Body Mass Index (BMI) 25.3 Intake and Output for Last 24 Hours 02/27/18 02/28/18 03/01/18 23:59 23:59 23:59 Intake Total 840 / 840 600 / 600 480 / 480 Output Total 1550 / 1550 1350 / 1350 1075 / 1075 Balance -710 / -710 -750 / -750 -595 / -595 Medical Necessity - Tobacco Use Smoking Status: Former smoker Assessment/Plan All Active Problems 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 (Acute) Venous insufficiency (Acute) Cellulitis of left leg (Acute) Infected open wound (Acute) Nonhealing ulcer of left lower leg (Acute) Ulcer left lower extremity down to tendon an bone - anterior Ulcer left lower extremity down to subcutaneous tissue- posterior PVD MRSA Patient was carefully examined and evaluated in detail. His vitals remain stable at this time. He is being followed by infectious disease and being treated with IV antibiotics. Patient still currently thinking about surgical procedure by Dr. Cleary currently. MRI result report read as no signs of acute osteomyelitis. Dressing change was performed using adaptic to the base, followed by slightly moistened aquacel ag, followed by 4x4s, ABD, and kerlix. Patient to have dressing changes daily by nursing staff. Again no active bleeding present. Patient was instructed to keep legs elevated, as he refuses any compression. Patient will follow up with Dr. Cleary in wound center if he is discharged. Podiatry will continue to follow while in house.
[2018-03-01 15:37] VITALS: BP 84/51; PULSE 90; RESP 18; TEMP 36.7; O2SAT 92
[2018-03-01 21:10] VITALS: PULSE 80; RESP 22; O2SAT 94
--- NOTE | 2018-03-01 21:10 | NURSING ---
DURING ASSESSMENT THIS NURSE NOTED A CRACKED AREA ON CALLOUSED HEEL LEFT FOOT OUTER ASPECT. PATIENT STATED I GET THEM ALL THE TIME, I USE GOLD NARAYAN HEEL CREAM AND IT CLEARS THEM RIGHT UP. PATIENT POSITIONED LEFT LEG AND FOOT ON OUTER ASPECT BUT PUTS COMPUTER AT FOOT OF BED AND REST HIS FOOT ON TOP OF COMPUTER. AREA DRY AND OPEN TO AIR. DENIES ANY PAIN AT SITE. WILL CONT TO MONITOR. SAME REPORTED TO DELMA RN AND DUSTIN RN.
[2018-03-01 22:16] LABS: Vancomycin, Trough Level 13.9 ug/mL (5.0-15.0)
[2018-03-01] MEDS: 0.9% NaCl Peripheral Flush Adult/Peds IV (22:28)
--- NOTE | 2018-03-01 22:41 | PCM.RX.CS ---
Consult Pharmacy has been consulted to manage selected antiobiotic: Vancomycin Type of Consult: Follow-up Suspected Infection: Skin/Soft tissue Prior Doses of Antibiotics Received/Current Regimen: Medications Vancomycin HCl 1,250 mg/ (Sodium Chloride) 275 mls @ 183.333 mls/hr IV Q24H [facility] Last Admin: 03/01/18 22:28 Dose: 183.333 mls/hr Labs: Sodium 141 mmol/L (136-145) 02/27/18 05:00 Potassium 4.3 mmol/L (3.5-5.1) 02/27/18 05:00 Chloride 104 mmol/L (98-107) 02/27/18 05:00 Carbon Dioxide 29.0 mmol/L (21.0-32.0) 02/27/18 05:00 Anion Gap 8 (5-15) 02/27/18 05:00 BUN 37 mg/dL (7-18) H 02/27/18 05:00 Creatinine 1.15 mg/dL (0.70-1.30) 02/27/18 05:00 Est GFR (MDRD) Af Amer 79 mL/min (>60) 02/27/18 05:00 Est GFR (MDRD) Non-Af 66 mL/min (>60) 02/27/18 05:00 BUN/Creatinine Ratio 32.2 RATIO (10-20) H 02/27/18 05:00 Glucose 114 mg/dL (74-106) H 02/27/18 05:00 Vancomycin Trough 13.9 ug/mL (5.0-15.0) 03/01/18 21:46 Weight used for dosin.1 kg Estimated Creatinine Clearance: 67 Goal Trough: 10-15 mcg/mL Pharmacy Plan for Drug Dosing: Pharmacy Service will continue to monitor and adjust dosing as required. Follow-Up Labs: Trough Vancomycin Labs to be done on [date and time ordered]: 03/04/18 @3419
[2018-03-02] MEDS: Lisinopril 10 MG Tablet PO (04:59)
[2018-03-02] MEDS: APIXABAN 5 MG TABLET PO ×2 (04:59→17:35)
[2018-03-02] MEDS: Doxycycline 100 MG CAPSULE PO ×2 (04:59→17:35)
[2018-03-02] MEDS: Carvedilol 25 MG Tablet PO ×2 (04:59→17:35)
[2018-03-02] MEDS: Furosemide 40 MG Tablet PO ×2 (04:59→17:35)
[2018-03-02] MEDS: Hydrocortisone 2.5% Crm 1 APPLIC TOPICAL ×2 (05:00→20:10)
[2018-03-02] MEDS: Aspirin 81 MG TAB.CHEW PO (08:19)
[2018-03-02] MEDS: Amox/Clavulanate 875 MG Tablet PO ×2 (08:19→17:35)
[2018-03-02 10:00] VITALS: PULSE 77; RESP 18; O2SAT 94
[2018-03-02] MEDS: Acetaminophen 500 MG Tablet 1000 MG PO (10:39)
[2018-03-02 15:21] VITALS: BP 89/57; PULSE 100; RESP 20; TEMP 36.9; O2SAT 92
[2018-03-02] MEDS: 0.9% NaCl Peripheral Flush Adult/Peds IV (22:28)
[2018-03-02] MEDS: 0.9% NaCl IVPB Med Flush (250 mL) 15 ML IV (22:31)
[2018-03-03] MEDS: Acetaminophen 500 MG Tablet 1000 MG PO ×2 (00:13→08:26)
[2018-03-03] MEDS: Hydrocortisone 2.5% Crm 1 APPLIC TOPICAL ×3 (04:01→19:37)
[2018-03-03] MEDS: Doxycycline 100 MG CAPSULE PO ×2 (04:01→16:42)
[2018-03-03] MEDS: Carvedilol 25 MG Tablet PO ×2 (04:01→16:43)
[2018-03-03] MEDS: Furosemide 40 MG Tablet PO ×2 (04:01→16:42)
[2018-03-03] MEDS: APIXABAN 5 MG TABLET PO ×2 (04:01→16:43)
[2018-03-03] MEDS: Lisinopril 10 MG Tablet PO (04:03)
[2018-03-03] MEDS: Aspirin 81 MG TAB.CHEW PO (07:47)
[2018-03-03] MEDS: Amox/Clavulanate 875 MG Tablet PO ×2 (07:47→16:42)
[2018-03-03 15:43] VITALS: BP 114/72; PULSE 105; RESP 18; TEMP 36.1; O2SAT 94
[2018-03-03 21:00] VITALS: PULSE 68; RESP 18; O2SAT 96
[2018-03-03] MEDS: 0.9% NaCl Peripheral Flush Adult/Peds IV ×2 (22:05→23:41)
--- NOTE | 2018-03-04 04:52 | NURSING ---
Pt remains in contact isolation precautions for MRSA in wound, nursing care provided in pt room.
[2018-03-04] MEDS: Hydrocortisone 2.5% Crm 1 APPLIC TOPICAL ×3 (06:43→20:10)
[2018-03-04] MEDS: Furosemide 40 MG Tablet PO ×2 (06:43→17:59)
[2018-03-04] MEDS: Doxycycline 100 MG CAPSULE PO ×2 (06:44→17:59)
[2018-03-04] MEDS: APIXABAN 5 MG TABLET PO ×2 (06:44→17:59)
[2018-03-04] MEDS: Carvedilol 25 MG Tablet PO (06:45)
[2018-03-04] MEDS: Lisinopril 10 MG Tablet PO (06:45)
--- NOTE | 2018-03-04 08:54 | NURSING ---
PT IN PRECAUTIONS FOR MRSA.
[2018-03-04] MEDS: Aspirin 81 MG TAB.CHEW PO (08:55)
[2018-03-04] MEDS: Amox/Clavulanate 875 MG Tablet PO ×2 (08:55→17:59)
[2018-03-04 16:00] VITALS: BP 94/39; PULSE 84; RESP 16; TEMP 36.8; O2SAT 95
[2018-03-04 18:12] VITALS: BP 87/49
[2018-03-04 21:04] VITALS: PULSE 76; RESP 18; O2SAT 96
[2018-03-04 22:11] LABS: Vancomycin, Trough Level 13.1 ug/mL (5.0-15.0)
--- NOTE | 2018-03-04 22:20 | PCM.RX.CS ---
Consult Pharmacy has been consulted to manage selected antiobiotic: Vancomycin Type of Consult: Follow-up Suspected Infection: Skin/Soft tissue Prior Doses of Antibiotics Received/Current Regimen: Medications Vancomycin HCl 1,250 mg/ (Sodium Chloride) 275 mls @ 183.333 mls/hr IV Q24H HALEY Last Admin: 03/03/18 21:37 Dose: 183.333 mls/hr Labs: Sodium 141 mmol/L (136-145) 02/27/18 05:00 Potassium 4.3 mmol/L (3.5-5.1) 02/27/18 05:00 Chloride 104 mmol/L (98-107) 02/27/18 05:00 Carbon Dioxide 29.0 mmol/L (21.0-32.0) 02/27/18 05:00 Anion Gap 8 (5-15) 02/27/18 05:00 BUN 37 mg/dL (7-18) H 02/27/18 05:00 Creatinine 1.15 mg/dL (0.70-1.30) 02/27/18 05:00 Est GFR (MDRD) Af Amer 79 mL/min (>60) 02/27/18 05:00 Est GFR (MDRD) Non-Af 66 mL/min (>60) 02/27/18 05:00 BUN/Creatinine Ratio 32.2 RATIO (10-20) H 02/27/18 05:00 Glucose 114 mg/dL (74-106) H 02/27/18 05:00 Vancomycin Trough 13.1 ug/mL (5.0-15.0) 03/04/18 21:30 Weight used for dosin.1 kg Estimated Creatinine Clearance: 67 Goal Trough: 10-15 mcg/mL Pharmacy Plan for Drug Dosing: Trough levels within goal range. Next level scheduled in 4 days. Pharmacy Service will continue to monitor and adjust dosing as required. Follow-Up Labs: Trough Vancomycin Labs to be done on [date and time ordered]: 03/08/18 @8796
[2018-03-04] MEDS: 0.9% NaCl Peripheral Flush Adult/Peds IV (22:57)
[2018-03-04] MEDS: 0.9% NaCl IVPB Med Flush (250 mL) 15 ML IV (22:57)
[2018-03-05] MEDS: APIXABAN 5 MG TABLET PO ×2 (06:46→17:07)
[2018-03-05] MEDS: Hydrocortisone 2.5% Crm 1 APPLIC TOPICAL ×3 (06:46→21:05)
[2018-03-05] MEDS: Doxycycline 100 MG CAPSULE PO ×2 (06:46→17:07)
[2018-03-05] MEDS: Furosemide 40 MG Tablet PO ×2 (06:46→17:07)
[2018-03-05] MEDS: Carvedilol 25 MG Tablet PO ×2 (06:46→17:07)
[2018-03-05] MEDS: Lisinopril 10 MG Tablet PO (06:47)
[2018-03-05] MEDS: Acetaminophen 500 MG Tablet 1000 MG PO ×2 (06:51→21:27)
--- NOTE | 2018-03-05 06:55 | NURSING ---
Pt remains in contact isolation precautions for MRSA in wound. All nursing care provided in room. Dressing changed to lower left leg per orders.
[2018-03-05] MEDS: Aspirin 81 MG TAB.CHEW PO (08:10)
[2018-03-05] MEDS: Amox/Clavulanate 875 MG Tablet PO ×2 (08:10→17:08)
--- NOTE | 2018-03-05 11:52 | MDS.RN ---
Information for the mds was obtained from review of the clinical record-computer and paper charting due to computers down hospital wide during part of lookback period, and direct observation of resident's care.
[2018-03-05] MEDS: 0.9% NaCl PICC Flush IV (15:30)
[2018-03-05 16:00] VITALS: BP 114/63; PULSE 88; RESP 16; TEMP 36.6; O2SAT 96
[2018-03-05 21:30] VITALS: PULSE 78; RESP 20; O2SAT 98
[2018-03-05] MEDS: 0.9% NaCl IVPB Med Flush (250 mL) 15 ML IV (21:54)
[2018-03-05] MEDS: 0.9% NaCl Peripheral Flush Adult/Peds IV (21:58)
[2018-03-06] MEDS: Furosemide 40 MG Tablet PO ×2 (04:19→17:36)
[2018-03-06] MEDS: APIXABAN 5 MG TABLET PO ×2 (04:19→17:36)
[2018-03-06] MEDS: Lisinopril 10 MG Tablet PO (04:19)
[2018-03-06] MEDS: Doxycycline 100 MG CAPSULE PO ×2 (04:20→17:36)
[2018-03-06] MEDS: Hydrocortisone 2.5% Crm 1 APPLIC TOPICAL ×3 (04:20→20:36)
[2018-03-06] MEDS: Carvedilol 25 MG Tablet PO (04:20)
[2018-03-06 04:30] LABS: Absolute Lymphocyte Count 1.55 X10^3/ul (0.83-4.51); Absolute Neutrophil Count 4.5 X10^3/uL (2.0-7.7); Basophil# 0.03 X10^3/uL; Basophil% 0.4 % (0-1); Eosinophil# 0.78 X10^3/uL; Hematocrit 31.1 % (40-54); Hemoglobin 10.1 g/dl (13.0-16.5); Lymphocyte # 1.55 X10^3/ul (4.0); Lymphocyte % 19.9 % (19-41); Mean Corp Hgb Conc 32.5 g/gl (32-36); Mean Corpuscular Volume 92.3 fL (80-94); Mean Platelet Vol. 9.8 fl (6.2-12.0); Monocyte# 0.95 X10^3/uL; Monocyte% 12.2 % (0-10); Neutrophil # 4.45 X10^3/uL (2.7-7.7); Neutrophil % 57.2 % (47-70); Platelet Count 287 K/mm3 (150-450); RBC Distribution Width CV 13.9 % (11.6-14.6); RBC Distribution Width SD 45.1 fl (35.1-43.9); Red Blood Count 3.37 M/mm3 (4.6-6.2); White Blood Count 7.8 K/mm3 (4.4-11.0)
[2018-03-06 04:31] LABS: POSITIVE COUNT NO; POSITIVE DIFFERENTIAL NO; POSITIVE MORPHOLOGY NO
[2018-03-06 04:51] LABS: Anion Gap 6 (5-15); BUN 37 mg/dL (7-18); BUN/Creat Ratio 31.6 RATIO (10-20); Calcium,Total 8.6 mg/dL (8.5-10.1); Chloride 108 mmol/L (98-107); Creatinine, Serum 1.17 mg/dL (0.70-1.30); EST Glomerular Filtration Rate 64 mL/min (>60); Est Glom Filt Rate - Afr Amer 78 mL/min (>60); Glucose 95 mg/dL (74-106); Sodium Level 142 mmol/L (136-145)
[2018-03-06] MEDS: Aspirin 81 MG TAB.CHEW PO (08:30)
[2018-03-06] MEDS: Amox/Clavulanate 875 MG Tablet PO ×2 (08:30→17:36)
[2018-03-06] MEDS: Acetaminophen 500 MG Tablet 1000 MG PO (08:30)
--- NOTE | 2018-03-06 08:37 | NURSING ---
PT IN PRECAUTIONS FOR MRSA IN WOUND. NUNO CANO WOUND NURSE IN ROOM CHANGING DRESSING.
--- NOTE | 2018-03-06 14:31 | CASEMGMT ---
Brief interview for mental status (BIMS) and resident mood interview (PHQ-9) completed on this day. BIMS score 15/15. PHQ-9 score
[2018-03-06 15:24] VITALS: BP 89/52; PULSE 76; RESP 20; TEMP 36.6; O2SAT 95
--- NOTE | 2018-03-06 15:37 | NURSING ---
wound photo: left anterior lower leg
--- NOTE | 2018-03-06 15:43 | NURSING ---
wound photo: left medial lower leg
[2018-03-06 17:49] VITALS: BP 96/48; PULSE 76
[2018-03-06 21:05] VITALS: PULSE 72; RESP 18; O2SAT 95
[2018-03-06] MEDS: 0.9% NaCl IVPB Med Flush (250 mL) 15 ML IV (22:08)
[2018-03-06] MEDS: 0.9% NaCl Peripheral Flush Adult/Peds IV (22:08)
[2018-03-07] MEDS: Hydrocortisone 2.5% Crm 1 APPLIC TOPICAL ×2 (04:07→19:56)
[2018-03-07] MEDS: Doxycycline 100 MG CAPSULE PO ×2 (04:08→17:40)
[2018-03-07] MEDS: Carvedilol 25 MG Tablet PO ×2 (04:08→17:40)
[2018-03-07] MEDS: Lisinopril 10 MG Tablet PO (04:08)
[2018-03-07] MEDS: APIXABAN 5 MG TABLET PO ×2 (04:08→17:40)
[2018-03-07] MEDS: Furosemide 40 MG Tablet PO ×2 (04:08→17:40)
[2018-03-07] MEDS: Amox/Clavulanate 875 MG Tablet PO ×2 (08:34→17:40)
[2018-03-07] MEDS: Aspirin 81 MG TAB.CHEW PO (08:34)
--- NOTE | 2018-03-07 09:51 | NURSING ---
Pt remains in contact precautions this shift d/t MRSA in wound, all nursing care and therapy provided in room.
--- NOTE | 2018-03-07 10:02 | CASEMGMT ---
Social Work Spoke with resident in room. Resident is requesting for discharge date to be set for 03/08/18. Spoke with staff/therapy, 03/08/18 is an agreeable date at this time. Resident plans to discharge home with spouse at time of discharge. Resident declining to have any further therapy after discharge. Resident reporting to have all needed durable medical equipment already set up within the home. Resident plans to follow up with the wound center for wound care management. Resident spouse plans to provide transportation home for resident at time of discharge. Support given. Proposed discharge date: 03/08/18 PLAN: Discharge home with spouse and wound center for wound care management. Ayanna WETZEL, COMPONENT ASSEMBLER SUPERVISOR
--- NOTE | 2018-03-07 10:36 | NURSING ---
Dr. Moya updated on discharge tomorrow, N.O. for last dose of IV Vanc tonight, pull PICC line after dose, stop dates also clarified and entered for Doxycycline and Augmentin. Pt updated on all.
[2018-03-07] MEDS: 0.9% NaCl Peripheral Flush Adult/Peds IV ×2 (11:20→21:24)
[2018-03-07] MEDS: Acetaminophen 500 MG Tablet 1000 MG PO (13:40)
--- NOTE | 2018-03-07 16:25 | DCINST_ITS ---
You will use the following diet at home:: No restrictions, Regular Your food should be the consistency of: Regular Your liquids should be the consistency of: Regular/Thin Discharge Activity: Return to Normal Activity, May Shower, Use Walker Weight Bearing Status: Weight bearing as tolerated Call your doctor if you observe: Fever of 101 or Higher, Inability to urinate, Inability to have a bowel movement, Shortness of breath, Chest pain, Uncontrolled pain Allergies/Adverse Reactions: Allergies codeine Adverse Reaction (Verified 09/29/17 09:53) Nausea Medications to take at Discharge Aspirin E.C. [Ecotrin] 81 mg PO DAILY@0800 11/06/15 Furosemide [Lasix] 40 mg PO BID 11/06/15 Potassium Chloride [Klor-Con M10] 10 meq PO BID 11/06/15 Apixaban [Eliquis] 5 mg PO BID 05/24/17 Carvedilol [Coreg (Beta Min)] 12.5 mg PO BID 05/24/17 Lisinopril [Zestril] 10 mg PO DAILY 05/24/17 Amox/Clavulanate Tablet [Augmentin Tablet] 875 mg PO BIDCM #10 tab 03/07/18 Apixaban [Eliquis] 5 mg PO BID tablet 03/07/18 Aspirin [Aspirin, Baby] 81 mg PO DAILY@0800 tab.chew 03/07/18 Carvedilol [Coreg (Beta Min)] 25 mg PO BID tablet 03/07/18 Doxycycline 100 mg PO BID #38 cap 03/07/18 Furosemide [Lasix] 40 mg PO BID tablet 03/07/18 Hydrocortisone 2.5% Crm [Hytone] 1 applic TOPICAL TID tube 03/07/18 Lactobacillus Acidophilus [Acidophilus] 1 tab PO BID #60 tab 03/07/18 Lisinopril [Zestril] 10 mg PO DAILY tablet 03/07/18 Nutritional Supplement [[place] - ORANGE FLAVOR] 1 packet PO BID #60 packet Potassium Chloride [K-Dur] 10 meq PO BIDCM tablet 03/07/18 The following prescriptions were given: Amox/Clavulanate Tablet [Augmentin Tablet] 875 mg PO BIDCM #10 tab Doxycycline 100 mg PO BID #38 cap Lactobacillus Acidophilus [Acidophilus] 1 tab PO BID #60 tab Nutritional Supplement [[place] - ORANGE FLAVOR] 1 packet PO BID #60 packet Primary Care Physician: Phoebe Daniels MD [Primary Care Provider] - Please follow up with your Primary Care Physician in: 1 week. Proposed Discharge Date: 03/08/18
--- NOTE | 2018-03-07 16:25 | PCM.DC.SUM ---
Discharge Date and Diagnosis Date of Admission: 02/17/18 Date of Discharge: 03/08/18 - Secondary Discharge Diagnosis Chronic Problems Skin ulcer of lower leg with necrosis of muscle (Chronic) 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 (Chronic) CKD (chronic kidney disease) stage 3, GFR 30-59 ml/min (Chronic) Anemia (Chronic) Nonischemic cardiomyopathy (Chronic) Chronic systolic CHF (congestive heart failure) (Chronic) Chronic atrial fibrillation (Chronic) Bilateral edema of lower extremity (Chronic) Open wounds involving multiple regions of lower extremity (Chronic) Neuropathic pain, leg, bilateral (Chronic) Pain, lower extremity (Chronic) PAOD (peripheral arterial occlusive disease) (Chronic) Peripheral vascular disease of extremity with claudication (Chronic) Hospital Course and Treatment Imaging Results: 02/26/18 16:54 Diet: Cardiac/Low Cholesterol Diet Comments: low sodium Clinical Impression(s) from Imaging Studies Chest X-Ray 02/21/18 14:10 IMPRESSION: Stable borderline cardiomegaly, low volume inspiration and hyperlucency. Placement of right PICC catheter without complications. Electronically Signed: Bob Garcia MD at 11:44 EDT , Service support , Labs (Last 48 Hours) 02/21/18 03/06/18 03/06/18 06:00 04:17 04:17 WBC Cancelled 7.8 Corrected WBC Cancelled RBC Cancelled 3.37 L Hgb Cancelled 10.1 L Hct Cancelled 31.1 L MCV Cancelled 92.3 MCH Cancelled 30.0 MCHC Cancelled 32.5 RDW Cancelled 13.9 RDW Differential Cancelled 45.1 H Plt Count Cancelled 287 MPV Cancelled 9.8 Immature Gran % (Auto) Cancelled 0.300 Neut % (Auto) Cancelled 57.2 Lymph % (Auto) Cancelled 19.9 [place] % (Auto) Cancelled 12.2 H Eos % (Auto) Cancelled 10.0 H Baso % (Auto) Cancelled 0.4 Immature Gran # (Auto) Cancelled Absolute Neuts (auto) Cancelled 4.5 Absolute Lymphs (auto) Cancelled 1.55 Absolute Monos (auto) Cancelled Total Counted Cancelled Not Reportable Neutrophils % (Manual) Cancelled Band Neutrophils % Cancelled Lymphocytes % (Manual) Cancelled Monocytes % (Manual) Cancelled Eosinophils % (Manual) Cancelled Basophils % (Manual) Cancelled Metamyelocytes % Cancelled Myelocytes % Cancelled Promyelocytes % Cancelled Blast Cells % Cancelled Plasma Cell % (Manual) Cancelled Other Cells % Cancelled Lymphocytes # Cancelled Nucleated RBCs/100 WBC Cancelled Differential Comment Cancelled Diff Path Review Cancelled Hypersegmented Neuts Cancelled Atypical Lymphocytes Cancelled Reactive Lymphocytes Cancelled Smudge Cells Cancelled Eosinophilia # Cancelled Basophilia # Cancelled Toxic Granulation Cancelled Dohle Bodies Cancelled Ariana Rods Cancelled Platelet Estimate Cancelled Plt Morphology Comment Cancelled RBC Morphology Cancelled Polychromasia Cancelled Hypochromasia Cancelled Poikilocytosis Cancelled Basophilic Stippling Cancelled Anisocytosis Cancelled Microcytosis Cancelled Macrocytosis Cancelled Spherocytes Cancelled Sickle Cells Cancelled Target Cells Cancelled Tear Drop Cells Cancelled Ovalocytes Cancelled Stomatocytes Cancelled [place] Bodies Cancelled [place] Cells Cancelled Bite Cells Cancelled Acanthocytes (Spur) Cancelled Rouleaux Cancelled Schistocytes Cancelled Sodium 142 Potassium 4.0 Chloride 108 H Carbon Dioxide 28.0 Anion Gap 6 BUN 37 H Creatinine 1.17 Estim Creat Clear Calc 60.70 Est GFR (MDRD) Af Amer 78 Est GFR (MDRD) Non-Af 64 BUN/Creatinine Ratio 31.6 H Glucose 95 Calcium 8.6 Consultations 02/26/18 Consult: Onc/Wound/clarity developer Routine Comment: Operations: None Procedures: None Summary of Care Provided: The patient is a 77 year old Male with below past medical history hospitalized for left lower extremity cellulitis/osteomyelitis requiring wound debridement, intravenous antibiotics, admitted to TCU for rehabilitation, strengthening, intravenous antibiotics, wound care, prior to discharge home with spouse. Discharge home with spouse, and wound center for wound care management. Discharge Diet: No Restrictions Discharge Activity: Return to Normal Activity, May Shower, Use Walker Weight Bearing Status: Weight bearing as tolerated Call your doctor if you observe: Fever of 101 or Higher, Inability to urinate, Inability to have a bowel movement, Shortness of breath, Chest pain, Uncontrolled pain Home Medications: Medications to take at Discharge Aspirin E.C. [Ecotrin] 81 mg PO DAILY@0800 11/06/15 Furosemide [Lasix] 40 mg PO BID 11/06/15 Potassium Chloride [Klor-Con M10] 10 meq PO BID 11/06/15 Apixaban [Eliquis] 5 mg PO BID 05/24/17 Carvedilol [Coreg (Beta Min)] 12.5 mg PO BID 05/24/17 Lisinopril [Zestril] 10 mg PO DAILY 05/24/17 Amox/Clavulanate Tablet [Augmentin Tablet] 875 mg PO BIDCM #10 tab 03/07/18 Apixaban [Eliquis] 5 mg PO BID tablet 03/07/18 Aspirin [Aspirin, Baby] 81 mg PO DAILY@0800 tab.chew 03/07/18 Carvedilol [Coreg (Beta Min)] 25 mg PO BID tablet 03/07/18 Doxycycline 100 mg PO BID #38 cap 03/07/18 Furosemide [Lasix] 40 mg PO BID tablet 03/07/18 Hydrocortisone 2.5% Crm [Hytone] 1 applic TOPICAL TID tube 03/07/18 Lactobacillus Acidophilus [Acidophilus] 1 tab PO BID #60 tab 03/07/18 Lisinopril [Zestril] 10 mg PO DAILY tablet 03/07/18 Nutritional Supplement [[place] - [place]ANGE FLAVOR] 1 packet PO BID #60 packet 03/07/18 Potassium Chloride [K-Dur] 10 meq PO BIDCM tablet 03/07/18 Following Prescrptions Were Given to Patient: Amox/Clavulanate Tablet [Augmentin Tablet] 875 mg PO BIDCM #10 tab Doxycycline 100 mg PO BID #38 cap Lactobacillus Acidophilus [Acidophilus] 1 tab PO BID #60 tab Nutritional Supplement [[place] - ORANGE FLAVOR] 1 packet PO BID #60 packet Primary Care Physician: Phoebe Daniels MD [Primary Care Provider] - Please follow up with your Primary Care Physician in: 1 week. Please Follow Up With: Linda Cleary DPM - Wound Center. When: 1 week. Disposition: Home Minutes spent on discharge:: 30 Patient Condition:: Stable Medical Necessity - Tobacco Use Smoking Status: Former smoker Meaningful Use Info Meaningful Use Diagnoses (Choose all that apply): None applicable
--- NOTE | 2018-03-07 16:28 | DS.PCM_ITS ---
Discharge Date and Diagnosis Date of Admission: 02/17/18 Date of Discharge: 03/08/18 - Secondary Discharge Diagnosis Chronic Problems Skin ulcer of lower leg with necrosis of muscle (Chronic) 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 (Chronic) CKD (chronic kidney disease) stage 3, GFR 30-59 ml/min (Chronic) Anemia (Chronic) Nonischemic cardiomyopathy (Chronic) Chronic systolic CHF (congestive heart failure) (Chronic) Chronic atrial fibrillation (Chronic) Bilateral edema of lower extremity (Chronic) Open wounds involving multiple regions of lower extremity (Chronic) Neuropathic pain, leg, bilateral (Chronic) Pain, lower extremity (Chronic) PAOD (peripheral arterial occlusive disease) (Chronic) Peripheral vascular disease of extremity with claudication (Chronic) Hospital Course and Treatment Imaging Results: 02/26/18 16:54 Diet: Cardiac/Low Cholesterol Diet Comments: low sodium Clinical Impression(s) from Imaging Studies Chest X-Ray 02/21/18 14:10 IMPRESSION: Stable borderline cardiomegaly, low volume inspiration and hyperlucency. Placement of right PICC catheter without complications. Electronically Signed: Bob Garcia MD at 11:44 EDT , Service support , Labs (Last 48 Hours) 02/21/18 03/06/18 03/06/18 06:00 04:17 04:17 WBC Cancelled 7.8 Corrected WBC Cancelled RBC Cancelled 3.37 L Hgb Cancelled 10.1 L Hct Cancelled 31.1 L MCV Cancelled 92.3 MCH Cancelled 30.0 MCHC Cancelled 32.5 RDW Cancelled 13.9 RDW Differential Cancelled 45.1 H Plt Count Cancelled 287 MPV Cancelled 9.8 Immature Gran % (Auto) Cancelled 0.300 Neut % (Auto) Cancelled 57.2 Lymph % (Auto) Cancelled 19.9 [place] % (Auto) Cancelled 12.2 H Eos % (Auto) Cancelled 10.0 H Baso % (Auto) Cancelled 0.4 Immature Gran # (Auto) Cancelled Absolute Neuts (auto) Cancelled 4.5 Absolute Lymphs (auto) Cancelled 1.55 Absolute Monos (auto) Cancelled Total Counted Cancelled Not Reportable Neutrophils % (Manual) Cancelled Band Neutrophils % Cancelled Lymphocytes % (Manual) Cancelled Monocytes % (Manual) Cancelled Eosinophils % (Manual) Cancelled Basophils % (Manual) Cancelled Metamyelocytes % Cancelled Myelocytes % Cancelled Promyelocytes % Cancelled Blast Cells % Cancelled Plasma Cell % (Manual) Cancelled Other Cells % Cancelled Lymphocytes # Cancelled Nucleated RBCs/100 WBC Cancelled Differential Comment Cancelled Diff Path Review Cancelled Hypersegmented Neuts Cancelled Atypical Lymphocytes Cancelled Reactive Lymphocytes Cancelled Smudge Cells Cancelled Eosinophilia # Cancelled Basophilia # Cancelled Toxic Granulation Cancelled Dohle Bodies Cancelled Ariana Rods Cancelled Platelet Estimate Cancelled Plt Morphology Comment Cancelled RBC Morphology Cancelled Polychromasia Cancelled Hypochromasia Cancelled Poikilocytosis Cancelled Basophilic Stippling Cancelled Anisocytosis Cancelled Microcytosis Cancelled Macrocytosis Cancelled Spherocytes Cancelled Sickle Cells Cancelled Target Cells Cancelled Tear Drop Cells Cancelled Ovalocytes Cancelled Stomatocytes Cancelled Recinos[place] Bodies Cancelled [place] Cells Cancelled Bite Cells Cancelled Acanthocytes (Spur) Cancelled Rouleaux Cancelled Schistocytes Cancelled Sodium 142 Potassium 4.0 Chloride 108 H Carbon Dioxide 28.0 Anion Gap 6 BUN 37 H Creatinine 1.17 Estim Creat Clear Calc 60.70 Est GFR (MDRD) Af Amer 78 Est GFR (MDRD) Non-Af 64 BUN/Creatinine Ratio 31.6 H Glucose 95 Calcium 8.6 Consultations 02/26/18 Consult: Onc/Wound/surgical resident Routine Comment: Operations: None Procedures: None Summary of Care Provided: The patient is a 77 year old Male with below past medical history hospitalized for left lower extremity cellulitis/osteomyelitis requiring wound debridement, intravenous antibiotics, admitted to TCU for rehabilitation, strengthening, intravenous antibiotics, wound care, prior to discharge home with spouse. Discharge home with spouse, and wound center for wound care management. Discharge Diet: No Restrictions Discharge Activity: Return to Normal Activity, May Shower, Use Walker Weight Bearing Status: Weight bearing as tolerated Call your doctor if you observe: Fever of 101 or Higher, Inability to urinate, Inability to have a bowel movement, Shortness of breath, Chest pain, Uncontrolled pain Home Medications: Medications to take at Discharge Aspirin E.C. [Ecotrin] 81 mg PO DAILY@0800 11/06/15 Furosemide [Lasix] 40 mg PO BID 11/06/15 Potassium Chloride [Klor-Con M10] 10 meq PO BID 11/06/15 Apixaban [Eliquis] 5 mg PO BID 05/24/17 Carvedilol [Coreg (Beta Min)] 12.5 mg PO BID 05/24/17 Lisinopril [Zestril] 10 mg PO DAILY 05/24/17 Amox/Clavulanate Tablet [Augmentin Tablet] 875 mg PO BIDCM #10 tab 03/07/18 Apixaban [Eliquis] 5 mg PO BID tablet 03/07/18 Aspirin [Aspirin, Baby] 81 mg PO DAILY@0800 tab.chew 03/07/18 Carvedilol [Coreg (Beta Min)] 25 mg PO BID tablet 03/07/18 Doxycycline 100 mg PO BID #38 cap 03/07/18 Furosemide [Lasix] 40 mg PO BID tablet 03/07/18 Hydrocortisone 2.5% Crm [Hytone] 1 applic TOPICAL TID tube 03/07/18 Lactobacillus Acidophilus [Acidophilus] 1 tab PO BID #60 tab 03/07/18 Lisinopril [Zestril] 10 mg PO DAILY tablet 03/07/18 Nutritional Supplement [[place] - ORANGE FLAVOR] 1 packet PO BID #60 packet Potassium Chloride [K-Dur] 10 meq PO BIDCM tablet 03/07/18 Following Prescrptions Were Given to Patient: Amox/Clavulanate Tablet [Augmentin Tablet] 875 mg PO BIDCM #10 tab Doxycycline 100 mg PO BID #38 cap Lactobacillus Acidophilus [Acidophilus] 1 tab PO BID #60 tab Nutritional Supplement [[place] - ORANGE FLAVOR] 1 packet PO BID #60 packet Primary Care Physician: Phoebe Daniels MD [Primary Care Provider] - Please follow up with your Primary Care Physician in: 1 week. Please Follow Up With: Linda Cleary DPM - Wound Center. When: 1 week. Disposition: Home Minutes spent on discharge:: 30 Patient Condition:: Stable Medical Necessity - Tobacco Use Smoking Status: Former smoker Meaningful Use Info Meaningful Use Diagnoses (Choose all that apply): None applicable
--- NOTE | 2018-03-07 19:57 | NURSING ---
Pt remains in isolation precautions for MRSA in wound. All nursing care provided in room.
[2018-03-07 20:00] VITALS: PULSE 76; RESP 18; O2SAT 97
[2018-03-08] MEDS: APIXABAN 5 MG TABLET PO (06:27)
[2018-03-08] MEDS: Carvedilol 25 MG Tablet PO (06:27)
[2018-03-08] MEDS: Doxycycline 100 MG CAPSULE PO (06:27)
[2018-03-08] MEDS: Lisinopril 10 MG Tablet PO (06:28)
[2018-03-08] MEDS: Furosemide 40 MG Tablet PO (06:28)
[2018-03-08] MEDS: Aspirin 81 MG TAB.CHEW PO (07:55)
[2018-03-08] MEDS: Amox/Clavulanate 875 MG Tablet PO (07:55)
[2018-03-08] MEDS: Acetaminophen 500 MG Tablet 1000 MG PO (07:55)
[2018-03-08 11:20] VITALS: BP 100/60; PULSE 99; RESP 18; TEMP 36.8; O2SAT 96
--- NOTE | 2018-03-19 15:15 | MDS.RN ---
Information for the mds was obtained from review of the clinical record, interview of resident, staff, and direct observation of resident's care.
== END 2018-03-08 12:30 | disposition home or self-care (01) | DRG 949 ==
PROVIDERS: Internal Medicine Infectious Disease; Nurse Practitioner Family; Admitting Provider Family Medicine Geriatric Medicine; Family Provider Internal Medicine; PCP Internal Medicine; Visit Provider Family Medicine Geriatric Medicine
DX: Z48.817 Encounter for surgical aftercare following surgery on the skin and subcutaneous tissue (principal); L97.826 Non-pressure chronic ulcer of other part of left lower leg with bone involvement without evidence of necrosis; M86.8X6 Other osteomyelitis, lower leg; I50.22 Chronic systolic (congestive) heart failure; I13.0 Hypertensive heart and chronic kidney disease with heart failure and stage 1 through stage 4 chronic kidney disease, or unspecified chronic kidney disease; I48.2 Chronic atrial fibrillation; I73.9 Peripheral vascular disease, unspecified; D50.0 Iron deficiency anemia secondary to blood loss (chronic); Z79.01 Long term (current) use of anticoagulants; N18.3 Chronic kidney disease, stage 3 (moderate); Z87.891 Personal history of nicotine dependence
CPT/HCPCS: 36415; 71045; 80048; 80202; 85025; 97110; 97116; 97162; 97166; 97530; 97535; 97802; J7040; J7050; A4216; G8978; G8979; G8987; G8988

== ENCOUNTER 2018-03-16 08:00 | Outpatient (RCR) | payer MEDICARE, OTHER, SELFPAY ==
[2018-02-16 00:22] VITALS: BP 103/71; PULSE 105; RESP 18; TEMP 37.1; BMI 65.4
[2018-03-09 08:21] VITALS: BP 87/52; PULSE 102; RESP 20; TEMP 37; BMI 65.4
--- NOTE | 2018-03-09 12:25 | PCM.WC.PN ---
(1) Cellulitis of left leg Status: Acute Current Visit: No Code(s): L03.116 - Cellulitis of left lower limb (2) Infected open wound Status: Acute Current Visit: Yes Code(s): T14.8XXA - Other injury of unspecified body region, initial encounter; L08.9 - Local infection of the skin and subcutaneous tissue, unspecified (3) Nonhealing ulcer of left lower leg Status: Acute Current Visit: Yes Code(s): L97.829 - Non-pressure chronic ulcer of other part of left lower leg with unspecified severity (4) 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 Status: Acute Current Visit: Yes Code(s): L97.922 - Non-pressure chronic ulcer of unspecified part of left lower leg with fat layer exposed (5) Venous insufficiency Status: Acute Current Visit: Yes Code(s): I87.2 - Venous insufficiency (chronic) (peripheral) (6) Anemia Status: Chronic Current Visit: Yes Code(s): D64.9 - Anemia, unspecified (7) Bilateral edema of lower extremity Status: Chronic Current Visit: Yes Code(s): R60.0 - Localized edema (8) Chronic atrial fibrillation Status: Chronic Current Visit: Yes Code(s): I48.2 - Chronic atrial fibrillation (9) Chronic systolic CHF (congestive heart failure) Status: Chronic Current Visit: Yes Code(s): I50.22 - Chronic systolic (congestive) heart failure (10) 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 Status: Chronic Current Visit: Yes Code(s): L97.902 - Non-pressure chronic ulcer of unspecified part of unspecified lower leg with fat layer exposed (11) Nonischemic cardiomyopathy Status: Chronic Current Visit: Yes Code(s): I42.8 - Other cardiomyopathies (12) Open wounds involving multiple regions of lower extremity Status: Chronic Current Visit: Yes Code(s): S81.809A - Unspecified open wound, unspecified lower leg, initial encounter (13) PAOD (peripheral arterial occlusive disease) Status: Chronic Current Visit: Yes Code(s): I77.9 - Disorder of arteries and arterioles, unspecified (14) Pain, lower extremity Status: Chronic Current Visit: Yes Qualifiers: (15) Peripheral vascular disease of extremity with claudication Status: Chronic Current Visit: Yes Code(s): I73.9 - Peripheral vascular disease, unspecified Type of Wound Date of Service: 03/09/18 Chief Complaint: Follow-up on left lower leg ulcers History of Wound: 77-year-old male who had surgery with Dr. 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 He follows up today for 2 left left lower extremity wounds. He has increased swelling and inflammation to that site today. He did not obtain his walking boot yet. He denies fever, chill, nausea, vomiting, loss of appetite, odor, streaking to the leg. He was previously not amenable to go to surgery he would like to reconsider this at this time. His increased leg swelling and relates he has been more active over this past holiday weekend. Progress of Wound: 77-year-old white male with a anterior open ulcer to the left lower ray. And to the left posterior calf. Patient's open ulcer to the ray has tendon exposed. The posterior calf is almost healed and is more superficial opening. Patient was last seen of 02/16/2018 patient was referred to [facility] on for further evaluation and surgery to the left lower leg. Patient developed a bleeder and his left ray at at home after being seen by podiatry and ended up in the hospital. Patient was kept and has MRSA in his wound he has been on IV antibiotics for 21 days in the hospital in TCU unit. Patient originally refused surgery on his left lower leg and wanted to come back to the wound center. Today tendon still exposed on the anterior lower leg and discussed with patient that he can still develop osteomyelitis even though he has not yet. MRIs x-rays show no osteomyelitis at this point but we discussed with him it is really medically necessary that we close this and cover that tendon before he loses the leg. Posterior ulcer is pretty well healed. very well patient was convinced he needs to go to surgery and have the epi effects placed in surgery so they can do a better job. We did place an epi fix today on his left ray over tendons only and used Promogran over the rest of the Beefy wound. - Physical Exam Vital Signs Temp Pulse Resp BP 98.6 F 102 H 20 H 87/52 L 03/09/18 08:21 03/09/18 08:21 03/09/18 08:21 03/09/18 08:21 General: Oriented x3, Cooperative, Well developed HEENT: Atraumatic, PERRLA Oral: Moist Mucosa Neck: Supple, No JVD Lungs: Clear to auscultation, Normal air movement Cardiovascular: Regular rate, Regular Rhythm Abdomen: Bowel Sounds Present, Soft, Non Tender, No Hepato-splenomegaly Extremities: No clubbing, No edema Skin: Ulcer/ Wound - Lower anterior ray posterior calf Wound Measurements and Assessment WC - Nurse 1 - General Ulcer Measurement Start: 03/09/18 08:21 Freq: Status: Active Protocol: Activity Type Activity Date Activity User E-Sign Co-Sign Detail Recorded Client Recorded Date Recorded By Document 03/09/18 08:21 LORA [id number] 03/09/18 08:37 LORA 03/09/18 08:21 Wound Center Nurse 1 [Ulcer Assessment] #6 L Ray -Combined with other wound No -Current Size (cm) - Length 13.0 -Current Size (cm) - Width 5.0 -Current Size (cm) - Depth 0.3 -Total Square Cm 65.00 -Date of Last Picture (Recall this 03/09/18 field) -Photo Taken Yes -Epithelialization None Present -Tunneling No -Undermining/Tunneling No -Circular Undermining No -Classification - Thickness Full Thickness with Exposed Support Structure -Exudate Amt Large (67-100%) -Exudate Type Serosanguineous -Wound Margin Distinct, Outline Attached -Necrosis Amt Medium (34-66%) -Necrotic Tissue Type Adherent Slough -Structure Exposed Tendon -Texture (Cyndy-wound Skin Appearance) No Abnormality -Moisture (Cyndy-wound Skin Appearance No Abnormality ) -Color (Cyndy-wound Skin Appearance) No Abnormality -Temperature (Cyndy-wound Skin No Abnormality Appearance) (Pt Warm) -Tenderness on Palpation (Cyndy-wound Yes Skin Appearance) -Ulcer Cleansing Rinsed/ Irrigated with Saline -Foul Odor after Cleansing No -Anesthetic Used 4% Lidocaine Solution 5% Lidocaine Gel #5 LLE Post -Combined with other wound No -Current Size (cm) - Length 5.0 -Current Size (cm) - Width 0.8 -Current Size (cm) - Depth 0.1 -Total Square Cm 4.00 -Date of Last Picture (Recall this 03/09/18 field) -Photo Taken Yes -Epithelialization Medium 34-66% -Tunneling No -Undermining/Tunneling No -Circular Undermining No -Classification - Thickness Full Thickness without Exposed Support Structure -Exudate Amt Small (1-33%) -Exudate Type Serosanguineous -Wound Margin Distinct, Outline Attached -Granulation Amt Small (1-33%) -Granulation Quality Red -Slough/Fibrin Yes -Necrosis Amt None Present (0 %) -Necrotic Tissue Type Eschar -Structure Exposed None/Limited to Skin Breakdown -Texture (Cyndy-wound Skin Appearance) No Abnormality -Moisture (Cyndy-wound Skin Appearance No Abnormality ) -Color (Cyndy-wound Skin Appearance) No Abnormality -Temperature (Cyndy-wound Skin No Abnormality Appearance) (Pt Warm) -Tenderness on Palpation (Cyndy-wound Yes Skin Appearance) -Ulcer Cleansing Rinsed/ Irrigated with Saline -Foul Odor after Cleansing No -Anesthetic Used 4% Lidocaine Solution 5% Lidocaine Gel [Edema Assessment] -Lower Limb Edema Present No -Left Calf (cm) 40.5 -Left Ankle (cm) 25.0 WC - Nurse 2 - General Ulcer CM Notes Start: 03/09/18 08:21 Freq: Status: Active Protocol: Activity Type Activity Date Activity User E-Sign Co-Sign Detail Recorded Client Recorded Date Recorded By Document 03/09/18 09:10 DV [id number] 03/09/18 09:28 DV 03/09/18 09:10 Wound Center Nurse 2 [Procedure/Treatment] #6 L Ray -Time 09:13 -Correct Patient Yes -Correct Side, Site, Position Yes -Correct Procedure Yes -Procedure Performed Yes -Type of Procedure Debridement -Clinical Debridement Subcutaneous -Post Debridement Size (cm) - Length 13.0 -Post Debridement Size (cm) - Width 5.0 -Post Debridement Size (cm) - Depth 0.3 -Total Square Cm 65.00 -Wound/Ulcer Outcome Not Healed -Ulcer Cleansing Rinsed/ Irrigated with Saline -Foul Odor after Cleansing No -Bioengineered Tissue Yes -Type of bioengineered Tissue EPIFIX -Expiration Date 10/19/22 -Product Lot Number [id number] -Percent Used 100 -Saline Lot Number [id number] -Topical Lidocaine (%) 5 -Bleeding Controlled with Pressure -Other HYDROGEL -Treatment Response Procedure Tolerated Well #5 LLE Post -Time 09:13 -Correct Patient Yes -Correct Side, Site, Position Yes -Correct Procedure Yes -Procedure Performed Yes -Type of Procedure Debridement -Clinical Debridement Subcutaneous -Post Debridement Size (cm) - Length 2.8 -Post Debridement Size (cm) - Width 0.5 -Post Debridement Size (cm) - Depth 0.2 -Total Square Cm 1.40 -Wound/Ulcer Outcome Not Healed -Ulcer Cleansing Rinsed/ Irrigated with Saline -Foul Odor after Cleansing No -Bioengineered Tissue Yes -Type of bioengineered Tissue EPIFIX -Bleeding Controlled with Pressure -Treatment Response Procedure Tolerated Well [See Physician Procedure note for Specifics] Pain Scale: 0-10 Numeric [Pain] -Is Patient Pain Free? Yes Musculoskeletal: No Tenderness to Palpation of Joints or Extremities Lymphatic: No Cervical, Supraclavicular, or Inguinal Adenopathy Neurological: Cranial nerves II-XII grossly intact, Neuro grossly intact Psych/Mental Status: Normal Affect, Appropriate, Alert and oriented to time, place, person, mood and affect Debridement Note Post-Debridement Measurements/Treatment WC - Nurse 2 - General Ulcer CM Notes Start: 03/09/18 08:21 Freq: Status: Active Protocol: Activity Type Activity Date Activity User E-Sign Co-Sign Detail Recorded Client Recorded Date Recorded By Document 03/09/18 09:10 DV [id number] 03/09/18 09:28 DV 03/09/18 09:10 Wound Center Nurse 2 #6 L Ray -Time 09:13 -Correct Patient Yes -Correct Side, Site, Position Yes -Correct Procedure Yes -Procedure Performed Yes -Type of Procedure Debridement -Clinical Debridement Subcutaneous -Post Debridement Size (cm) - Length 13.0 -Post Debridement Size (cm) - Width 5.0 -Post Debridement Size (cm) - Depth 0.3 -Total Square Cm 65.00 -Wound/Ulcer Outcome Not Healed -Ulcer Cleansing Rinsed/ Irrigated with Saline -Foul Odor after Cleansing No -Bioengineered Tissue Yes -Type of bioengineered Tissue EPIFIX -Expiration Date 10/19/22 -Product Lot Number [id number] -Percent Used 100 -Saline Lot Number [id number] -Topical Lidocaine (%) 5 -Bleeding Controlled with Pressure -Other HYDROGEL -Treatment Response Procedure Tolerated Well #5 LLE Post -Time 09:13 -Correct Patient Yes -Correct Side, Site, Position Yes -Correct Procedure Yes -Procedure Performed Yes -Type of Procedure Debridement -Clinical Debridement Subcutaneous -Post Debridement Size (cm) - Length 2.8 -Post Debridement Size (cm) - Width 0.5 -Post Debridement Size (cm) - Depth 0.2 -Total Square Cm 1.40 -Wound/Ulcer Outcome Not Healed -Ulcer Cleansing Rinsed/ Irrigated with Saline -Foul Odor after Cleansing No -Bioengineered Tissue Yes -Type of bioengineered Tissue EPIFIX -Bleeding Controlled with Pressure -Treatment Response Procedure Tolerated Well Pain Scale: 0-10 Numeric Is Patient Pain Free? 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 (Chronic) 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 (Acute) Venous insufficiency (Acute) Anemia (Chronic) Infected open wound (Acute) Nonischemic cardiomyopathy (Chronic) Chronic systolic CHF (congestive heart failure) (Chronic) Chronic atrial fibrillation (Chronic) Bilateral edema of lower extremity (Chronic) Open wounds involving multiple regions of lower extremity (Chronic) Pain, lower extremity (Chronic) PAOD (peripheral arterial occlusive disease) (Chronic) Peripheral vascular disease of extremity with claudication (Chronic) Nonhealing ulcer of left lower leg (Acute) Assessment: bilateral lower leg edema. Worsening status of left lower extremity; infection workup in process. Rule out MRSA carrier status. Bilateral lower leg edema swelling increased in the left leg. Left lower leg ulcer-anterior and posterior. 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 Atrial fib to onset. Peripheral vascular disease Plan: Epi fix #1 applied to his left lower ray tendons only applied Promogran to beefy red skin around the area covered with hydrogel Tunica Steri-Strips gauze dressing double layer Tubigrip. Not to be changed for a week follow-up in 1 week or. We referred him back to Dr. Engel on for surgery patient has agreed to with us that he needs surgery. Can be seen with me till surgery is scheduled am actually performed.
--- NOTE | 2018-03-09 12:52 | PN.PCM_ITS ---
(1) Cellulitis of left leg Status: Acute Current Visit: No Code(s): L03.116 - Cellulitis of left lower limb (2) Infected open wound Status: Acute Current Visit: Yes Code(s): T14.8XXA - Other injury of unspecified body region, initial encounter; L08.9 - Local infection of the skin and subcutaneous tissue, unspecified (3) Nonhealing ulcer of left lower leg Status: Acute Current Visit: Yes Code(s): L97.829 - Non-pressure chronic ulcer of other part of left lower leg with unspecified severity (4) 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 Status: Acute Current Visit: Yes Code(s): L97.922 - Non-pressure chronic ulcer of unspecified part of left lower leg with fat layer exposed (5) Venous insufficiency Status: Acute Current Visit: Yes Code(s): I87.2 - Venous insufficiency ( chronic) (peripheral) (6) Anemia Status: Chronic Current Visit: Yes Code(s): D64.9 - Anemia, unspecified (7) Bilateral edema of lower extremity Status: Chronic Current Visit: Yes Code(s): R60.0 - Localized edema (8) Chronic atrial fibrillation Status: Chronic Current Visit: Yes Code(s): I48.2 - Chronic atrial fibrillation (9) Chronic systolic CHF (congestive heart failure) Status: Chronic Current Visit: Yes Code(s): I50.22 - Chronic systolic ( congestive) heart failure (10) 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 Status: Chronic Current Visit: Yes Code(s): L97.902 - Non-pressure chronic ulcer of unspecified part of unspecified lower leg with fat layer exposed (11) Nonischemic cardiomyopathy Status: Chronic Current Visit: Yes Code(s): I42.8 - Other cardiomyopathies (12) Open wounds involving multiple regions of lower extremity Status: Chronic Current Visit: Yes Code(s): S81.809A - Unspecified open wound, unspecified lower leg, initial encounter (13) PAOD (peripheral arterial occlusive disease) Status: Chronic Current Visit: Yes Code(s): I77.9 - Disorder of arteries and arterioles, unspecified (14) Pain, lower extremity Status: Chronic Current Visit: Yes Qualifiers: (15) Peripheral vascular disease of extremity with claudication Status: Chronic Current Visit: Yes Code(s): I73.9 - Peripheral vascular disease, unspecified Type of Wound Date of Service: 03/09/18 Chief Complaint: Follow-up on left lower leg ulcers History of Wound: 77-year-old male who had surgery with Dr. 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 He follows up today for 2 left left lower extremity wounds. He has increased swelling and inflammation to that site today. He did not obtain his walking boot yet. He denies fever, chill, nausea, vomiting, loss of appetite, odor, streaking to the leg. He was previously not amenable to go to surgery he would like to reconsider this at this time. His increased leg swelling and relates he has been more active over this past holiday weekend. Progress of Wound: 77-year-old white male with a anterior open ulcer to the left lower ray. And to the left posterior calf. Patient's open ulcer to the ray has tendon exposed. The posterior calf is almost healed and is more superficial opening. Patient was last seen of 02/16/2018 patient was referred to [facility] on for further evaluation and surgery to the left lower leg. Patient developed a bleeder and his left ray at at home after being seen by podiatry and ended up in the hospital. Patient was kept and has MRSA in his wound he has been on IV antibiotics for 21 days in the hospital in TCU unit. Patient originally refused surgery on his left lower leg and wanted to come back to the wound center. Today tendon still exposed on the anterior lower leg and discussed with patient that he can still develop osteomyelitis even though he has not yet. MRIs x-rays show no osteomyelitis at this point but we discussed with him it is really medically necessary that we close this and cover that tendon before he loses the leg. Posterior ulcer is pretty well healed. very well patient was convinced he needs to go to surgery and have the epi effects placed in surgery so they can do a better job. We did place an epi fix today on his left ray over tendons only and used Promogran over the rest of the Beefy wound. - Physical Exam Vital Signs Temp Pulse Resp BP 98.6 F 102 H 20 H 87/52 L 03/09/18 08:21 03/09/18 08:21 03/09/18 08:21 03/09/18 08:21 General: Oriented x3, Cooperative, Well developed HEENT: Atraumatic, PERRLA Oral: Moist Mucosa Neck: Supple, No JVD Lungs: Clear to auscultation, Normal air movement Cardiovascular: Regular rate, Regular Rhythm Abdomen: Bowel Sounds Present, Soft, Non Tender, No Hepato-splenomegaly Extremities: No clubbing, No edema Skin: Ulcer/ Wound - Lower anterior ray posterior calf Wound Measurements and Assessment WC - Nurse 1 - General Ulcer Measurement Start: 03/09/18 08:21 Freq: Status: Active Protocol: Activity Type Activity Date Activity User E-Sign Co-Sign Detail Recorded Client Recorded Date Recorded By Document 03/09/18 08:21 LORA [id number] 03/09/18 08:37 LORA 03/09/18 08:21 Wound Center Nurse 1 [Ulcer Assessment] #6 L Ray -Combined with other wound No -Current Size (cm) - Length 13.0 -Current Size (cm) - Width 5.0 -Current Size (cm) - Depth 0.3 -Total Square Cm 65.00 -Date of Last Picture (Recall this 03/09/18 field) -Photo Taken Yes -Epithelialization None Present -Tunneling No -Undermining/Tunneling No -Circular Undermining No -Classification - Thickness Full Thickness with Exposed Support Structure -Exudate Amt Large (67-100%) -Exudate Type Serosanguineous -Wound Margin Distinct, Outline Attached -Necrosis Amt Medium (34-66%) -Necrotic Tissue Type Adherent Slough -Structure Exposed Tendon -Texture (Cyndy-wound Skin Appearance) No Abnormality -Moisture (Cyndy-wound Skin Appearance No Abnormality ) -Color (Cyndy-wound Skin Appearance) No Abnormality -Temperature (Cyndy-wound Skin No Abnormality Appearance) (Pt Warm) -Tenderness on Palpation (Cyndy-wound Yes Skin Appearance) -Ulcer Cleansing Rinsed/ Irrigated with Saline -Foul Odor after Cleansing No -Anesthetic Used 4% Lidocaine Solution 5% Lidocaine Gel #5 LLE Post -Combined with other wound No -Current Size (cm) - Length 5.0 -Current Size (cm) - Width 0.8 -Current Size (cm) - Depth 0.1 -Total Square Cm 4.00 -Date of Last Picture (Recall this 03/09/18 field) -Photo Taken Yes -Epithelialization Medium 34-66% -Tunneling No -Undermining/Tunneling No -Circular Undermining No -Classification - Thickness Full Thickness without Exposed Support Structure -Exudate Amt Small (1-33%) -Exudate Type Serosanguineous -Wound Margin Distinct, Outline Attached -Granulation Amt Small (1-33%) -Granulation Quality Red -Slough/Fibrin Yes -Necrosis Amt None Present (0 %) -Necrotic Tissue Type Eschar -Structure Exposed None/Limited to Skin Breakdown -Texture (Cyndy-wound Skin Appearance) No Abnormality -Moisture (Cyndy-wound Skin Appearance No Abnormality ) -Color (Cyndy-wound Skin Appearance) No Abnormality -Temperature (Cyndy-wound Skin No Abnormality Appearance) (Pt Warm) -Tenderness on Palpation (Cyndy-wound Yes Skin Appearance) -Ulcer Cleansing Rinsed/ Irrigated with Saline -Foul Odor after Cleansing No -Anesthetic Used 4% Lidocaine Solution 5% Lidocaine Gel [Edema Assessment] -Lower Limb Edema Present No -Left Calf (cm) 40.5 -Left Ankle (cm) 25.0 WC - Nurse 2 - General Ulcer CM Notes Start: 03/09/18 08:21 Freq: Status: Active Protocol: Activity Type Activity Date Activity User E-Sign Co-Sign Detail Recorded Client Recorded Date Recorded By Document 03/09/18 09:10 DV [id number] 03/09/18 09:28 DV 03/09/18 09:10 Wound Center Nurse 2 [Procedure/Treatment] #6 L Ray -Time 09:13 -Correct Patient Yes -Correct Side, Site, Position Yes -Correct Procedure Yes -Procedure Performed Yes -Type of Procedure Debridement -Clinical Debridement Subcutaneous -Post Debridement Size (cm) - Length 13.0 -Post Debridement Size (cm) - Width 5.0 -Post Debridement Size (cm) - Depth 0.3 -Total Square Cm 65.00 -Wound/Ulcer Outcome Not Healed -Ulcer Cleansing Rinsed/ Irrigated with Saline -Foul Odor after Cleansing No -Bioengineered Tissue Yes -Type of bioengineered Tissue EPIFIX -Expiration Date 10/19/22 -Product Lot Number [id number] -Percent Used 100 -Saline Lot Number 73704 -Topical Lidocaine (%) 5 -Bleeding Controlled with Pressure -Other HYDROGEL -Treatment Response Procedure Tolerated Well #5 LLE Post -Time 09:13 -Correct Patient Yes -Correct Side, Site, Position Yes -Correct Procedure Yes -Procedure Performed Yes -Type of Procedure Debridement -Clinical Debridement Subcutaneous -Post Debridement Size (cm) - Length 2.8 -Post Debridement Size (cm) - Width 0.5 -Post Debridement Size (cm) - Depth 0.2 -Total Square Cm 1.40 -Wound/Ulcer Outcome Not Healed -Ulcer Cleansing Rinsed/ Irrigated with Saline -Foul Odor after Cleansing No -Bioengineered Tissue Yes -Type of bioengineered Tissue EPIFIX -Bleeding Controlled with Pressure -Treatment Response Procedure Tolerated Well [See Physician Procedure note for Specifics] Pain Scale: 0-10 Numeric [Pain] -Is Patient Pain Free? Yes Musculoskeletal: No Tenderness to Palpation of Joints or Extremities Lymphatic: No Cervical, Supraclavicular, or Inguinal Adenopathy Neurological: Cranial nerves II-XII grossly intact, Neuro grossly intact Psych/Mental Status: Normal Affect, Appropriate, Alert and oriented to time, place, person, mood and affect Debridement Note Post-Debridement Measurements/Treatment WC - Nurse 2 - General Ulcer CM Notes Start: 03/09/18 08:21 Freq: Status: Active Protocol: Activity Type Activity Date Activity User E-Sign Co-Sign Detail Recorded Client Recorded Date Recorded By Document 03/09/18 09:10 DV [id number] 03/09/18 09:28 DV 03/09/18 09:10 Wound Center Nurse 2 #6 L Ray -Time 09:13 -Correct Patient Yes -Correct Side, Site, Position Yes -Correct Procedure Yes -Procedure Performed Yes -Type of Procedure Debridement -Clinical Debridement Subcutaneous -Post Debridement Size (cm) - Length 13.0 -Post Debridement Size (cm) - Width 5.0 -Post Debridement Size (cm) - Depth 0.3 -Total Square Cm 65.00 -Wound/Ulcer Outcome Not Healed -Ulcer Cleansing Rinsed/ Irrigated with Saline -Foul Odor after Cleansing No -Bioengineered Tissue Yes -Type of bioengineered Tissue EPIFIX -Expiration Date 10/19/22 -Product Lot Number [id number] -Percent Used 100 -Saline Lot Number [id number] -Topical Lidocaine (%) 5 -Bleeding Controlled with Pressure -Other HYDROGEL -Treatment Response Procedure Tolerated Well #5 LLE Post -Time 09:13 -Correct Patient Yes -Correct Side, Site, Position Yes -Correct Procedure Yes -Procedure Performed Yes -Type of Procedure Debridement -Clinical Debridement Subcutaneous -Post Debridement Size (cm) - Length 2.8 -Post Debridement Size (cm) - Width 0.5 -Post Debridement Size (cm) - Depth 0.2 -Total Square Cm 1.40 -Wound/Ulcer Outcome Not Healed -Ulcer Cleansing Rinsed/ Irrigated with Saline -Foul Odor after Cleansing No -Bioengineered Tissue Yes -Type of bioengineered Tissue EPIFIX -Bleeding Controlled with Pressure -Treatment Response Procedure Tolerated Well Pain Scale: 0-10 Numeric Is Patient Pain Free? 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 (Chronic) 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 (Acute) Venous insufficiency (Acute) Anemia (Chronic) Infected open wound (Acute) Nonischemic cardiomyopathy (Chronic) Chronic systolic CHF (congestive heart failure) (Chronic) Chronic atrial fibrillation (Chronic) Bilateral edema of lower extremity (Chronic) Open wounds involving multiple regions of lower extremity (Chronic) Pain, lower extremity (Chronic) PAOD (peripheral arterial occlusive disease) (Chronic) Peripheral vascular disease of extremity with claudication (Chronic) Nonhealing ulcer of left lower leg (Acute) Assessment: bilateral lower leg edema. Worsening status of left lower extremity ; infection workup in process. Rule out MRSA carrier status. Bilateral lower leg edema swelling increased in the left leg. Left lower leg ulcer-anterior and posterior. 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 Atrial fib to onset. Peripheral vascular disease Plan: Epi fix #1 applied to his left lower ray tendons only applied Promogran to beefy red skin around the area covered with hydrogel [place] Steri-Strips gauze dressing double layer Tubigrip. Not to be changed for a week follow-up in 1 week or. We referred him back to Dr. Engel on for surgery patient has agreed to with us that he needs surgery. Can be seen with me till surgery is scheduled am actually performed.
[2018-03-16 08:17] VITALS: BP 93/54; PULSE 111; RESP 16; TEMP 37.1; BMI 65.4
--- NOTE | 2018-03-16 09:52 | PCM.WC.PN ---
(1) Cellulitis of left leg Status: Acute Current Visit: Yes Code(s): L03.116 - Cellulitis of left lower limb (2) Infected open wound Status: Acute Current Visit: Yes Code(s): T14.8XXA - Other injury of unspecified body region, initial encounter; L08.9 - Local infection of the skin and subcutaneous tissue, unspecified (3) Nonhealing ulcer of left lower leg Status: Acute Current Visit: Yes Code(s): L97.829 - Non-pressure chronic ulcer of other part of left lower leg with unspecified severity (4) 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 Status: Acute Current Visit: Yes Code(s): L97.922 - Non-pressure chronic ulcer of unspecified part of left lower leg with fat layer exposed (5) Venous insufficiency Status: Acute Current Visit: Yes Code(s): I87.2 - Venous insufficiency (chronic) (peripheral) (6) Anemia Status: Chronic Current Visit: Yes Code(s): D64.9 - Anemia, unspecified (7) Bilateral edema of lower extremity Status: Chronic Current Visit: Yes Code(s): R60.0 - Localized edema (8) Chronic atrial fibrillation Status: Chronic Current Visit: Yes Code(s): I48.2 - Chronic atrial fibrillation (9) Chronic systolic CHF (congestive heart failure) Status: Chronic Current Visit: Yes Code(s): I50.22 - Chronic systolic (congestive) heart failure (10) 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 Status: Chronic Current Visit: Yes Code(s): L97.902 - Non-pressure chronic ulcer of unspecified part of unspecified lower leg with fat layer exposed (11) Nonischemic cardiomyopathy Status: Chronic Current Visit: Yes Code(s): I42.8 - Other cardiomyopathies (12) Open wounds involving multiple regions of lower extremity Status: Chronic Current Visit: Yes Code(s): S81.809A - Unspecified open wound, unspecified lower leg, initial encounter (13) PAOD (peripheral arterial occlusive disease) Status: Chronic Current Visit: Yes Code(s): I77.9 - Disorder of arteries and arterioles, unspecified (14) Pain, lower extremity Status: Chronic Current Visit: Yes Qualifiers: (15) Peripheral vascular disease of extremity with claudication Status: Chronic Current Visit: Yes Code(s): I73.9 - Peripheral vascular disease, unspecified Type of Wound Date of Service: 03/16/18 Chief Complaint: Follow-up on left lower leg ulcers History of Wound: 77-year-old male who had surgery with Dr. 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 He follows up today for 2 left left lower extremity wounds. He has increased swelling and inflammation to that site today. He did not obtain his walking boot yet. He denies fever, chill, nausea, vomiting, loss of appetite, odor, streaking to the leg. He was previously not amenable to go to surgery he would like to reconsider this at this time. His increased leg swelling and relates he has been more active over this past holiday weekend. Progress of Wound: 77-year-old white male with a anterior open ulcer to the left lower ray. And to the left posterior calf. Patient's open ulcer to the ray has tendon exposed. The posterior calf is open more again this week beefy base and is still superficial opening. Today tendon still exposed on the anterior lower leg ulcer is larger but there is developing skin growth over the tendon can be seen from the epi fix it is crucial and medically necessary to continue using the epi fix to we can get him in surgery to cover the tendon before we lose it. Today we had him sign surgery papers for Dr. Engel on to get this done in early part of March. MRIs x-rays show no osteomyelitis at this point but we discussed with him it is really medically necessary that we close this and cover that tendon before he loses the leg. Discussed with patient offloading of the posterior ulcer needs to be done better he is developing pressure on that area that is keeping it open. - Physical Exam Vital Signs Temp Pulse Resp BP 98.8 F 111 H 16 93/54 L 03/16/18 08:17 03/16/18 08:17 03/16/18 08:17 03/16/18 08:17 General: Oriented x3, Cooperative, Well developed HEENT: Atraumatic, PERRLA Oral: Moist Mucosa Neck: Supple, No JVD Lungs: Clear to auscultation, Normal air movement Cardiovascular: Regular rate, Regular Rhythm Abdomen: Bowel Sounds Present, Soft, Non Tender, No Hepato-splenomegaly Extremities: No clubbing, No edema Skin: Ulcer/ Wound - Anterior posterior left lower leg ulcers with tendon exposed on the ray Wound Measurements and Assessment WC - Nurse 1 - General Ulcer Measurement Start: 03/09/18 08:21 Freq: Status: Active Protocol: Activity Type Activity Date Activity User E-Sign Co-Sign Detail Recorded Client Recorded Date Recorded By Document 03/16/18 08:17 [id number] 03/16/18 08:32 CS 03/16/18 08:17 Wound Center Nurse 1 [Ulcer Assessment] #6 L Ray -Combined with other wound No -Current Size (cm) - Length 13.8 -Current Size (cm) - Width 5.2 -Current Size (cm) - Depth 0.3 -Total Square Cm 71.76 -Photo Taken No -Epithelialization None Present -Tunneling No -Undermining/Tunneling No -Circular Undermining No -Classification - Thickness Full Thickness with Exposed Support Structure -Exudate Amt Large (67-100%) -Exudate Type Serosanguineous -Wound Margin Distinct, Outline Attached -Granulation Amt Small (1-33%) -Granulation Quality Red -Slough/Fibrin Yes -Necrosis Amt Medium (34-66%) -Necrotic Tissue Type Adherent Slough -Structure Exposed Tendon Fascia Fat Layer Exposed -Texture (Cyndy-wound Skin Appearance) Friable Scarring -Moisture (Cyndy-wound Skin Appearance Weeping ) -Color (Cyndy-wound Skin Appearance) Erythema Hemosiderin Staining -Temperature (Cyndy-wound Skin No Abnormality Appearance) (Pt Warm) -Tenderness on Palpation (Cyndy-wound Yes Skin Appearance) -Ulcer Cleansing Rinsed/ Irrigated with Saline -Foul Odor after Cleansing No -Anesthetic Used 5% Lidocaine Gel #5 LLE Post -Combined with other wound No -Current Size (cm) - Length 2.5 -Current Size (cm) - Width 0.7 -Current Size (cm) - Depth 0.2 -Total Square Cm 1.75 -Photo Taken No -Epithelialization Small 1-33% -Tunneling No -Undermining/Tunneling No -Circular Undermining No -Classification - Thickness Full Thickness without Exposed Support Structure -Exudate Amt Small (1-33%) -Exudate Type Serosanguineous -Wound Margin Distinct, Outline Attached -Granulation Amt Large (67-100%) -Granulation Quality [place] -Slough/Fibrin Yes -Necrosis Amt Small (1-33%) -Necrotic Tissue Type Adherent Slough -Structure Exposed Fascia Fat Layer Exposed -Texture (Cyndy-wound Skin Appearance) Scarring -Moisture (Cyndy-wound Skin Appearance No Abnormality ) -Color (Cyndy-wound Skin Appearance) Hemosiderin Staining -Temperature (Cyndy-wound Skin No Abnormality Appearance) (Pt Warm) -Tenderness on Palpation (Cyndy-wound No Skin Appearance) -Ulcer Cleansing Rinsed/ Irrigated with Saline -Foul Odor after Cleansing No -Anesthetic Used 5% Lidocaine Gel [Edema Assessment] -Lower Limb Edema Present Yes -Right Calf (cm) 36.6 -Right Ankle (cm) 25.7 -Left Calf (cm) 41.3 -Left Ankle (cm) 27.4 WC - Nurse 2 - General Ulcer CM Notes Start: 03/09/18 08:21 Freq: Status: Active Protocol: Activity Type Activity Date Activity User E-Sign Co-Sign Detail Recorded Client Recorded Date Recorded By Document 03/16/18 08:53 LORA [id number] 03/16/18 09:15 LORA 03/16/18 08:53 Wound Center Nurse 2 [Procedure/Treatment] #6 L Ray -Time 08:53 -Correct Patient Yes -Correct Side, Site, Position Yes -Correct Procedure Yes -Procedure Performed Yes -Type of Procedure Debridement -Clinical Debridement Muscle Bone -Post Debridement Size (cm) - Length 13.8 -Post Debridement Size (cm) - Width 5.0 -Post Debridement Size (cm) - Depth 0.3 -Total Square Cm 69.00 -Wound/Ulcer Outcome Not Healed -Ulcer Cleansing Rinsed/ Irrigated with Saline -Foul Odor after Cleansing No -Bioengineered Tissue No -Topical Lidocaine (%) 5 -Lidocaine (ml) 10 -Bleeding Controlled with NA -Treatment Response Procedure Tolerated Well #5 LLE Post -Time 08:54 -Correct Patient Yes -Correct Side, Site, Position Yes -Correct Procedure Yes -Procedure Performed Yes -Type of Procedure Debridement -Clinical Debridement Subcutaneous -Post Debridement Size (cm) - Length 5.0 -Post Debridement Size (cm) - Width 1.0 -Post Debridement Size (cm) - Depth 0.2 -Total Square Cm 5.00 -Wound/Ulcer Outcome Not Healed -Ulcer Cleansing Rinsed/ Irrigated with Saline -Foul Odor after Cleansing No -Bioengineered Tissue No -Topical Lidocaine (%) 4 -Lidocaine (ml) 5 -Bleeding Controlled with NA -Treatment Response Procedure Tolerated Well [See Physician Procedure note for Specifics] Pain Scale: 0-10 Numeric [Pain] -Is Patient Pain Free? Yes Musculoskeletal: No Tenderness to Palpation of Joints or Extremities Lymphatic: No Cervical, Supraclavicular, or Inguinal Adenopathy Neurological: Cranial nerves II-XII grossly intact, Neuro grossly intact Psych/Mental Status: Normal Affect, Appropriate Debridement Note Post-Debridement Measurements/Treatment WC - Nurse 2 - General Ulcer CM Notes Start: 03/09/18 08:21 Freq: Status: Active Protocol: Activity Type Activity Date Activity User E-Sign Co-Sign Detail Recorded Client Recorded Date Recorded By Document 03/09/18 09:10 DV [id number] 03/09/18 09:28 DV Document 03/16/18 08:53 JS [id number] 03/16/18 09:15 JS 03/09/18 03/16/18 09:10 08:53 Wound Center Nurse 2 #6 L Ray -Time 09:13 08:53 -Correct Patient Yes Yes -Correct Side, Site, Position Yes Yes -Correct Procedure Yes Yes -Procedure Performed Yes Yes -Type of Procedure Debridement Debridement -Clinical Debridement Subcutaneous Muscle Bone -Post Debridement Size (cm) - Length 13.0 13.8 -Post Debridement Size (cm) - Width 5.0 5.0 -Post Debridement Size (cm) - Depth 0.3 0.3 -Total Square Cm 65.00 69.00 -Wound/Ulcer Outcome Not Healed Not Healed -Ulcer Cleansing Rinsed/ Rinsed/ Irrigated with Irrigated with Saline Saline -Foul Odor after Cleansing No No -Bioengineered Tissue Yes No -Type of bioengineered Tissue EPIFIX -Expiration Date 10/19/22 -Product Lot Number [id number] -Percent Used 100 -Saline Lot Number [id number] -Topical Lidocaine (%) 5 5 -Lidocaine (ml) 10 -Bleeding Controlled with Pressure NA -Other HYDROGEL -Treatment Response Procedure Procedure Tolerated Well Tolerated Well #5 LLE Post -Time 09:13 08:54 -Correct Patient Yes Yes -Correct Side, Site, Position Yes Yes -Correct Procedure Yes Yes -Procedure Performed Yes Yes -Type of Procedure Debridement Debridement -Clinical Debridement Subcutaneous Subcutaneous -Post Debridement Size (cm) - Length 2.8 5.0 -Post Debridement Size (cm) - Width 0.5 1.0 -Post Debridement Size (cm) - Depth 0.2 0.2 -Total Square Cm 1.40 5.00 -Wound/Ulcer Outcome Not Healed Not Healed -Ulcer Cleansing Rinsed/ Rinsed/ Irrigated with Irrigated with Saline Saline -Foul Odor after Cleansing No No -Bioengineered Tissue Yes No -Type of bioengineered Tissue EPIFIX -Topical Lidocaine (%) 4 -Lidocaine (ml) 5 -Bleeding Controlled with Pressure NA -Treatment Response Procedure Procedure Tolerated Well Tolerated Well Pain Scale: 0-10 Numeric Is Patient Pain Free? Yes Yes Wound debrided: Left lower anterior ulcer Type of Debridement: Excisional debridement Anesthesia Used: 5% Lidocaine Gel Depth: Down to and including healthy tissue, to bone Percentage of wound debrided: 100 Instrument Used: 7mm curette Tissue Removed: Fibrin Severity: Limited To Skin Breakdown Bleeding Controlled with: Pressure Patient tolerated procedure well - Additional Wound Wound debrided: Left posterior lower leg ulcer Type of Debridement: Excisional debridement Depth: Down to and including healthy tissue, in the subcutaneous layer Instrument Used: 5mm curette Tissue Removed: Fibrin Severity: Limited To Skin Breakdown Amount of bleeding with debridement: Mild Bleeding Controlled with: Pressure Patient tolerated procedure: Patient tolerated procedure well Assessment/Plan Active Problems 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 (Chronic) 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 (Acute) Venous insufficiency (Acute) Cellulitis of left leg (Acute) Anemia (Chronic) Infected open wound (Acute) Nonischemic cardiomyopathy (Chronic) Chronic systolic CHF (congestive heart failure) (Chronic) Chronic atrial fibrillation (Chronic) Bilateral edema of lower extremity (Chronic) Open wounds involving multiple regions of lower extremity (Chronic) Pain, lower extremity (Chronic) PAOD (peripheral arterial occlusive disease) (Chronic) Peripheral vascular disease of extremity with claudication (Chronic) Nonhealing ulcer of left lower leg (Acute) Assessment: bilateral lower leg edema. Worsening status of left lower extremity; infection workup in process. Rule out MRSA carrier status. Bilateral lower leg edema swelling increased in the left leg. Left lower leg ulcer-anterior and posterior. 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 Atrial fib to onset. Peripheral vascular disease Plan: Epi fix #13 applied to his left lower ray tendons only applied Promogran to beefy red skin around the area covered with hydrogel [place] Steri-Strips gauze dressing double layer Tubigrip. Not to be changed for a week posterior dressing to be changed in every other day. follow-up in 1 week. We referred him back to Dr. Engel on for surgery patient has agreed to with us that he needs surgery. Surgery permission signed. Can be seen with me till surgery is scheduled am actually performed.
--- NOTE | 2018-03-16 09:59 | PN.PCM_ITS ---
(1) Cellulitis of left leg Status: Acute Current Visit: Yes Code(s): L03.116 - Cellulitis of left lower limb (2) Infected open wound Status: Acute Current Visit: Yes Code(s): T14.8XXA - Other injury of unspecified body region, initial encounter; L08.9 - Local infection of the skin and subcutaneous tissue, unspecified (3) Nonhealing ulcer of left lower leg Status: Acute Current Visit: Yes Code(s): L97.829 - Non-pressure chronic ulcer of other part of left lower leg with unspecified severity (4) 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 Status: Acute Current Visit: Yes Code(s): L97.922 - Non-pressure chronic ulcer of unspecified part of left lower leg with fat layer exposed (5) Venous insufficiency Status: Acute Current Visit: Yes Code(s): I87.2 - Venous insufficiency ( chronic) (peripheral) (6) Anemia Status: Chronic Current Visit: Yes Code(s): D64.9 - Anemia, unspecified (7) Bilateral edema of lower extremity Status: Chronic Current Visit: Yes Code(s): R60.0 - Localized edema (8) Chronic atrial fibrillation Status: Chronic Current Visit: Yes Code(s): I48.2 - Chronic atrial fibrillation (9) Chronic systolic CHF (congestive heart failure) Status: Chronic Current Visit: Yes Code(s): I50.22 - Chronic systolic ( congestive) heart failure (10) 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 Status: Chronic Current Visit: Yes Code(s): L97.902 - Non-pressure chronic ulcer of unspecified part of unspecified lower leg with fat layer exposed (11) Nonischemic cardiomyopathy Status: Chronic Current Visit: Yes Code(s): I42.8 - Other cardiomyopathies (12) Open wounds involving multiple regions of lower extremity Status: Chronic Current Visit: Yes Code(s): S81.809A - Unspecified open wound, unspecified lower leg, initial encounter (13) PAOD (peripheral arterial occlusive disease) Status: Chronic Current Visit: Yes Code(s): I77.9 - Disorder of arteries and arterioles, unspecified (14) Pain, lower extremity Status: Chronic Current Visit: Yes Qualifiers: (15) Peripheral vascular disease of extremity with claudication Status: Chronic Current Visit: Yes Code(s): I73.9 - Peripheral vascular disease, unspecified Type of Wound Date of Service: 03/16/18 Chief Complaint: Follow-up on left lower leg ulcers History of Wound: 77-year-old male who had surgery with Dr. 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 He follows up today for 2 left left lower extremity wounds. He has increased swelling and inflammation to that site today. He did not obtain his walking boot yet. He denies fever, chill, nausea, vomiting, loss of appetite, odor, streaking to the leg. He was previously not amenable to go to surgery he would like to reconsider this at this time. His increased leg swelling and relates he has been more active over this past holiday weekend. Progress of Wound: 77-year-old white male with a anterior open ulcer to the left lower ray. And to the left posterior calf. Patient's open ulcer to the ray has tendon exposed. The posterior calf is open more again this week beefy base and is still superficial opening. Today tendon still exposed on the anterior lower leg ulcer is larger but there is developing skin growth over the tendon can be seen from the epi fix it is crucial and medically necessary to continue using the epi fix to we can get him in surgery to cover the tendon before we lose it. Today we had him sign surgery papers for Dr. Engel on to get this done in early part of March. MRIs x-rays show no osteomyelitis at this point but we discussed with him it is really medically necessary that we close this and cover that tendon before he loses the leg. Discussed with patient offloading of the posterior ulcer needs to be done better he is developing pressure on that area that is keeping it open. - Physical Exam Vital Signs Temp Pulse Resp BP 98.8 F 111 H 16 93/54 L 03/16/18 08:17 03/16/18 08:17 03/16/18 08:17 03/16/18 08:17 General: Oriented x3, Cooperative, Well developed HEENT: Atraumatic, PERRLA Oral: Moist Mucosa Neck: Supple, No JVD Lungs: Clear to auscultation, Normal air movement Cardiovascular: Regular rate, Regular Rhythm Abdomen: Bowel Sounds Present, Soft, Non Tender, No Hepato-splenomegaly Extremities: No clubbing, No edema Skin: Ulcer/ Wound - Anterior posterior left lower leg ulcers with tendon exposed on the ray Wound Measurements and Assessment WC - Nurse 1 - General Ulcer Measurement Start: 03/09/18 08:21 Freq: Status: Active Protocol: Activity Type Activity Date Activity User E-Sign Co-Sign Detail Recorded Client Recorded Date Recorded By Document 03/16/18 08:17 [id number] 03/16/18 08:32 CS 03/16/18 08:17 Wound Center Nurse 1 [Ulcer Assessment] #6 L Ray -Combined with other wound No -Current Size (cm) - Length 13.8 -Current Size (cm) - Width 5.2 -Current Size (cm) - Depth 0.3 -Total Square Cm 71.76 -Photo Taken No -Epithelialization None Present -Tunneling No -Undermining/Tunneling No -Circular Undermining No -Classification - Thickness Full Thickness with Exposed Support Structure -Exudate Amt Large (67-100%) -Exudate Type Serosanguineous -Wound Margin Distinct, Outline Attached -Granulation Amt Small (1-33%) -Granulation Quality Red -Slough/Fibrin Yes -Necrosis Amt Medium (34-66%) -Necrotic Tissue Type Adherent Slough -Structure Exposed Tendon Fascia Fat Layer Exposed -Texture (Cyndy-wound Skin Appearance) Friable Scarring -Moisture (Cyndy-wound Skin Appearance Weeping ) -Color (Cyndy-wound Skin Appearance) Erythema Hemosiderin Staining -Temperature (Cyndy-wound Skin No Abnormality Appearance) (Pt Warm) -Tenderness on Palpation (Cyndy-wound Yes Skin Appearance) -Ulcer Cleansing Rinsed/ Irrigated with Saline -Foul Odor after Cleansing No -Anesthetic Used 5% Lidocaine Gel #5 LLE Post -Combined with other wound No -Current Size (cm) - Length 2.5 -Current Size (cm) - Width 0.7 -Current Size (cm) - Depth 0.2 -Total Square Cm 1.75 -Photo Taken No -Epithelialization Small 1-33% -Tunneling No -Undermining/Tunneling No -Circular Undermining No -Classification - Thickness Full Thickness without Exposed Support Structure -Exudate Amt Small (1-33%) -Exudate Type Serosanguineous -Wound Margin Distinct, Outline Attached -Granulation Amt Large (67-100%) -Granulation Quality [place] -Slough/Fibrin Yes -Necrosis Amt Small (1-33%) -Necrotic Tissue Type Adherent Slough -Structure Exposed Fascia Fat Layer Exposed -Texture (Cyndy-wound Skin Appearance) Scarring -Moisture (Cyndy-wound Skin Appearance No Abnormality ) -Color (Cyndy-wound Skin Appearance) Hemosiderin Staining -Temperature (Cyndy-wound Skin No Abnormality Appearance) (Pt Warm) -Tenderness on Palpation (Cyndy-wound No Skin Appearance) -Ulcer Cleansing Rinsed/ Irrigated with Saline -Foul Odor after Cleansing No -Anesthetic Used 5% Lidocaine Gel [Edema Assessment] -Lower Limb Edema Present Yes -Right Calf (cm) 36.6 -Right Ankle (cm) 25.7 -Left Calf (cm) 41.3 -Left Ankle (cm) 27.4 WC - Nurse 2 - General Ulcer CM Notes Start: 03/09/18 08:21 Freq: Status: Active Protocol: Activity Type Activity Date Activity User E-Sign Co-Sign Detail Recorded Client Recorded Date Recorded By Document 03/16/18 08:53 LORA [id number] 03/16/18 09:15 LORA 03/16/18 08:53 Wound Center Nurse 2 [Procedure/Treatment] #6 L Ray -Time 08:53 -Correct Patient Yes -Correct Side, Site, Position Yes -Correct Procedure Yes -Procedure Performed Yes -Type of Procedure Debridement -Clinical Debridement Muscle Bone -Post Debridement Size (cm) - Length 13.8 -Post Debridement Size (cm) - Width 5.0 -Post Debridement Size (cm) - Depth 0.3 -Total Square Cm 69.00 -Wound/Ulcer Outcome Not Healed -Ulcer Cleansing Rinsed/ Irrigated with Saline -Foul Odor after Cleansing No -Bioengineered Tissue No -Topical Lidocaine (%) 5 -Lidocaine (ml) 10 -Bleeding Controlled with NA -Treatment Response Procedure Tolerated Well #5 LLE Post -Time 08:54 -Correct Patient Yes -Correct Side, Site, Position Yes -Correct Procedure Yes -Procedure Performed Yes -Type of Procedure Debridement -Clinical Debridement Subcutaneous -Post Debridement Size (cm) - Length 5.0 -Post Debridement Size (cm) - Width 1.0 -Post Debridement Size (cm) - Depth 0.2 -Total Square Cm 5.00 -Wound/Ulcer Outcome Not Healed -Ulcer Cleansing Rinsed/ Irrigated with Saline -Foul Odor after Cleansing No -Bioengineered Tissue No -Topical Lidocaine (%) 4 -Lidocaine (ml) 5 -Bleeding Controlled with NA -Treatment Response Procedure Tolerated Well [See Physician Procedure note for Specifics] Pain Scale: 0-10 Numeric [Pain] -Is Patient Pain Free? Yes Musculoskeletal: No Tenderness to Palpation of Joints or Extremities Lymphatic: No Cervical, Supraclavicular, or Inguinal Adenopathy Neurological: Cranial nerves II-XII grossly intact, Neuro grossly intact Psych/Mental Status: Normal Affect, Appropriate Debridement Note Post-Debridement Measurements/Treatment WC - Nurse 2 - General Ulcer CM Notes Start: 03/09/18 08:21 Freq: Status: Active Protocol: Activity Type Activity Date Activity User E-Sign Co-Sign Detail Recorded Client Recorded Date Recorded By Document 03/09/18 09:10 DV [id number] 03/09/18 09:28 DV Document 03/16/18 08:53 JS [id number] 03/16/18 09:15 JS 03/09/18 03/16/18 09:10 08:53 Wound Center Nurse 2 #6 L Ray -Time 09:13 08:53 -Correct Patient Yes Yes -Correct Side, Site, Position Yes Yes -Correct Procedure Yes Yes -Procedure Performed Yes Yes -Type of Procedure Debridement Debridement -Clinical Debridement Subcutaneous Muscle Bone -Post Debridement Size (cm) - Length 13.0 13.8 -Post Debridement Size (cm) - Width 5.0 5.0 -Post Debridement Size (cm) - Depth 0.3 0.3 -Total Square Cm 65.00 69.00 -Wound/Ulcer Outcome Not Healed Not Healed -Ulcer Cleansing Rinsed/ Rinsed/ Irrigated with Irrigated with Saline Saline -Foul Odor after Cleansing No No -Bioengineered Tissue Yes No -Type of bioengineered Tissue EPIFIX -Expiration Date 10/19/22 -Product Lot Number [id number] -Percent Used 100 -Saline Lot Number [id number] -Topical Lidocaine (%) 5 5 -Lidocaine (ml) 10 -Bleeding Controlled with Pressure NA -Other HYDROGEL -Treatment Response Procedure Procedure Tolerated Well Tolerated Well #5 LLE Post -Time 09:13 08:54 -Correct Patient Yes Yes -Correct Side, Site, Position Yes Yes -Correct Procedure Yes Yes -Procedure Performed Yes Yes -Type of Procedure Debridement Debridement -Clinical Debridement Subcutaneous Subcutaneous -Post Debridement Size (cm) - Length 2.8 5.0 -Post Debridement Size (cm) - Width 0.5 1.0 -Post Debridement Size (cm) - Depth 0.2 0.2 -Total Square Cm 1.40 5.00 -Wound/Ulcer Outcome Not Healed Not Healed -Ulcer Cleansing Rinsed/ Rinsed/ Irrigated with Irrigated with Saline Saline -Foul Odor after Cleansing No No -Bioengineered Tissue Yes No -Type of bioengineered Tissue EPIFIX -Topical Lidocaine (%) 4 -Lidocaine (ml) 5 -Bleeding Controlled with Pressure NA -Treatment Response Procedure Procedure Tolerated Well Tolerated Well Pain Scale: 0-10 Numeric Is Patient Pain Free? Yes Yes Wound debrided: Left lower anterior ulcer Type of Debridement: Excisional debridement Anesthesia Used: 5% Lidocaine Gel Depth: Down to and including healthy tissue, to bone Percentage of wound debrided: 100 Instrument Used: 7mm curette Tissue Removed: Fibrin Severity: Limited To Skin Breakdown Bleeding Controlled with: Pressure Patient tolerated procedure well - Additional Wound Wound debrided: Left posterior lower leg ulcer Type of Debridement: Excisional debridement Depth: Down to and including healthy tissue, in the subcutaneous layer Instrument Used: 5mm curette Tissue Removed: Fibrin Severity: Limited To Skin Breakdown Amount of bleeding with debridement: Mild Bleeding Controlled with: Pressure Patient tolerated procedure: Patient tolerated procedure well Assessment/Plan Active Problems 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 (Chronic) 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 (Acute) Venous insufficiency (Acute) Cellulitis of left leg (Acute) Anemia (Chronic) Infected open wound (Acute) Nonischemic cardiomyopathy (Chronic) Chronic systolic CHF (congestive heart failure) (Chronic) Chronic atrial fibrillation (Chronic) Bilateral edema of lower extremity (Chronic) Open wounds involving multiple regions of lower extremity (Chronic) Pain, lower extremity (Chronic) PAOD (peripheral arterial occlusive disease) (Chronic) Peripheral vascular disease of extremity with claudication (Chronic) Nonhealing ulcer of left lower leg (Acute) Assessment: bilateral lower leg edema. Worsening status of left lower extremity ; infection workup in process. Rule out MRSA carrier status. Bilateral lower leg edema swelling increased in the left leg. Left lower leg ulcer-anterior and posterior. 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 Atrial fib to onset. Peripheral vascular disease Plan: Epi fix #13 applied to his left lower ray tendons only applied Promogran to beefy red skin around the area covered with hydrogel [place] Steri-Strips gauze dressing double layer Tubigrip. Not to be changed for a week posterior dressing to be changed in every other day. follow-up in 1 week. We referred him back to Dr. Engel on for surgery patient has agreed to with us that he needs surgery. Surgery permission signed. Can be seen with me till surgery is scheduled am actually performed.
== END 2018-03-17 23:59 ==
LOC: WC 08:00
PROVIDERS: Family Provider Internal Medicine; PCP Internal Medicine; Visit Provider Nurse Practitioner
DX: I73.9 Peripheral vascular disease, unspecified (principal); I77.9 Disorder of arteries and arterioles, unspecified; I42.0 Dilated cardiomyopathy; I50.22 Chronic systolic (congestive) heart failure; I48.2 Chronic atrial fibrillation; R60.0 Localized edema; L03.116 Cellulitis of left lower limb; L08.9 Local infection of the skin and subcutaneous tissue, unspecified; Z86.14 Personal history of Methicillin resistant Staphylococcus aureus infection; L97.821 Non-pressure chronic ulcer of other part of left lower leg limited to breakdown of skin; G62.9 Polyneuropathy, unspecified
CPT/HCPCS: 15271; 87070; 87075; 87077; 87186; 87205; 97110; 97162; 97166; 97530; 99212; Q4131; G0463

== ENCOUNTER 2018-04-03 12:57 | Day surgery (SDC) | payer MEDICARE, OTHER, SELFPAY ==
[2018-04-03 13:29] LABS: Hematocrit 30.7 % (40-54); Hemoglobin 9.9 g/dl (13.0-16.5); Mean Corp Hgb Conc 32.2 g/gl (32-36); Mean Corpuscular Hgb 29.6 pg (27.0-32.0); Mean Corpuscular Volume 91.9 fL (80-94); Mean Platelet Vol. 9.3 fl (6.2-12.0); Platelet Count 360 K/mm3 (150-450); RBC Distribution Width CV 15.4 % (11.6-14.6); RBC Distribution Width SD 52.1 fl (35.1-43.9); Red Blood Count 3.34 M/mm3 (4.6-6.2); Scan Indicated on CBC? Y/N NO; White Blood Count 10.1 K/mm3 (4.4-11.0)
[2018-04-03 13:32] VITALS: BP 83/70; PULSE 114; RESP 16; TEMP 36.8; O2SAT 100; BMI 24.6
[2018-04-03 13:44] LABS: ALB/GLOB Ratio 0.6 RATIO (0.9-2.4); AST(SGOT) 13 U/L (15-37); Alanine Aminotransfer ALT/SGPT 14 U/L (16-61); Albumin, Serum 2.7 g/dL (3.2-5.0); Alkaline Phosphatase 70 U/L (45-117); Anion Gap 8 (5-15); BUN 32 mg/dL (7-18); BUN/Creat Ratio 22.7 RATIO (10-20); Calcium,Total 8.9 mg/dL (8.5-10.1); Chloride 105 mmol/L (98-107); Creatinine, Serum 1.41 mg/dL (0.70-1.30); EST Glomerular Filtration Rate 52 mL/min (>60); Est Glom Filt Rate - Afr Amer 63 mL/min (>60); Globulin 4.3 g/dL (2.2-4.2); Glucose 95 mg/dL (74-106); Sodium Level 138 mmol/L (136-145)
[2018-04-03] MEDS: Bupivacaine Mpf 0.5% 30 ML VIAL (14:50)
[2018-04-03 16:06] VITALS: BP 106/70; BP 83/70; PULSE 120; RESP 16; TEMP 36.4; O2SAT 99
--- NOTE | 2018-04-03 16:09 | PCM.DC.POD ---
Discharge Diet: No Restrictions Discharge Activity: - - reduce overall activity Weight Bearing Status: Weight bearing as tolerated Keep extremity elevated above heart level: Left Leg Call your doctor if your incision/area has: Continuous Slow Oozing, Sudden Increased Bleeding, Increased Pain/ Swelling, Increased Redness, Foul Smelling Discharge, Swelling at the incision site Call your doctor if you observe: Fever of 101 or Higher, Calf discomfort, Uncontrolled pain Cleanse incision/area with: Keep Dressing Clean & Dry Allergies/Adverse Reactions: Allergies codeine Adverse Reaction (Verified 04/02/18 16:17) Nausea Medications to take at Discharge Aspirin E.C. [Ecotrin] 81 mg PO DAILY@0800 11/06/15 Apixaban [Eliquis] 5 mg PO BID 05/24/17 Carvedilol [Coreg (Beta Min)] 12.5 mg PO BID 05/24/17 Furosemide [Lasix] 40 mg PO BID tablet 03/07/18 Lactobacillus Acidophilus [Acidophilus] 1 tab PO BID #60 tab 03/07/18 Lisinopril [Zestril] 10 mg PO DAILY tablet 03/07/18 Nutritional Supplement [[place] - ORANGE FLAVOR] 1 packet PO BID #60 packet 03/07/18 Potassium Chloride [K-Dur] 10 meq PO BIDCM tablet 03/07/18 Levofloxacin [Levaquin] 500 mg PO DAILY 04/02/18 Primary Care Physician: Phoebe Daniels MD [Primary Care Provider] - Test Results: Test results from this visit will be discussed in further detail at your follow-up appointment, if applicable. Please Follow Up With: Linda Cleary DPM When: [facility] Proposed Discharge Date: 04/03/18
[2018-04-03 16:10] VITALS: BP 83/70; BP 95/76; PULSE 97; RESP 16; O2SAT 96
--- NOTE | 2018-04-03 16:11 | PCM.IMDPSTOP ---
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 delayed healing Post-Operative Diagnosis: non healing ulcer left leg with exposed bone and tendon. delayed healing Surgery/Procedure Performed:: debridement of tendon left leg. application of advanced wound care products left leg (amniofill and epicord). application of JOSE wound vac left leg Description of Surgical Findings:: hemostasis controlled see detailed operative report The patient tolerated the procedure and anesthesia well. He was transported to the PACU with vital signs stable and vascular status intact left lower extremity. Postoperative orders were entered electronically. he will be discharged home later today. Estimated Blood Loss: <40 mL Specimen's removed: none Type of Anesthesia:: Local MAC Special Medications: Preoperative - 16 cc of 1:1 mixture of 1% lidocaine plain and 0.5% Marcaine plain administered in the local infiltrative manner to left leg wound - Admit VTE Documentation VTE Present on Admission: No VTE Pharm Prophylaxis ordered?: Yes
--- NOTE | 2018-04-03 16:14 | OP.PN_ITS ---
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 delayed healing Post-Operative Diagnosis: non healing ulcer left leg with exposed bone and tendon. delayed healing Surgery/Procedure Performed:: debridement of tendon left leg. application of advanced wound care products left leg (amniofill and epicord). application of JOSE wound vac left leg Description of Surgical Findings:: hemostasis controlled see detailed operative report The patient tolerated the procedure and anesthesia well. He was transported to the PACU with vital signs stable and vascular status intact left lower extremity. Postoperative orders were entered electronically. he will be discharged home later today. Estimated Blood Loss: <40 mL Specimen's removed: none Type of Anesthesia:: Local MAC Special Medications: Preoperative - 16 cc of 1:1 mixture of 1% lidocaine plain and 0.5% Marcaine plain administered in the local infiltrative manner to left leg wound - Admit VTE Documentation VTE Present on Admission: No VTE Pharm Prophylaxis ordered?: Yes
[2018-04-03 16:15] VITALS: BP 83/70; BP 85/65; PULSE 93; RESP 16; O2SAT 98
[2018-04-03 16:20] VITALS: BP 83/70; BP 99/76; PULSE 108; RESP 16; TEMP 36.6; O2SAT 94
[2018-04-03 16:47] VITALS: BP 83/70
--- NOTE | 2018-04-03 22:19 | PCM.OPRPT ---
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 delayed healing Post-Operative Diagnosis: non healing ulcer left leg with exposed bone and tendon. delayed healing Surgery/Procedure Performed:: debridement of tendon left leg. application of advanced wound care products left leg (amniofill and epicord). application of JOSE wound vac left leg Description of Surgical Findings:: hemostasis : Anatomic dissection, pressure Materials: 3-0 nylon, Adaptic,two 3 x 5 epi cord applications, 1000 mL of Amniofill Complications: None Specimens: None bottling machine operator: none Type of Anesthesia:: Local MAC Special Medications: Preoperative - 16 cc of 1:1 mixture of 1% lidocaine plain and 0.5% Marcaine plain administered in the local infiltrative manner to left leg wound Specimen's removed: none Estimated Blood Loss (mL): <40 mL Description of Procedure: Indications: This is a 77-year-old male with past medical history including anemia chronic kidney disease, congestive heart failure, neuropathy, peripheral vascular disease, venous insufficiency, malnutrition, noncompliance, previous smoker, chronic anticoagulation use has had a wound to the left leg for approximately 2 years with significant delayed healing. He has been seen at the wound care center and has failed traditional therapies including routine debridement, vascular intervention, nutritional supplementation, offloading, advanced and conservative wound treatment and Biologics. He has been treated in a comprehensive manner. He has also had previous progressive wound size. He has a history of MRSA and deep tissue infection which she was treated earlier this year with IV antibiotics administered via PICC line and antimicrobial dressings and debridements. He is ready to proceed with surgical debridement and advanced tissue application. The preoperative indications, planned procedure, possible benefits, risks, complications, and anticipated healing time and management were discussed in detail with patient. He understands these potential complications include but are not limited to the following: Pain, delayed or nonhealing, swelling, scarring, loss of limb function or life, blood clots, allergic reaction, chronic pain syndrome. He understands and elects to proceed with surgery at this time. No guarantees were made. He understands he is at risk for limb loss and this may be a staged surgical procedure. His preoperative diagnostic data was reviewed including CBC and CMP. His preoperative clearance and history and physical exam were also reviewed; he obtain this at no time family physicians. I answered his questions. The surgical limb and surgical consent were signed. Procedure in detail: The patient was transported to the operating room via cart and placed on the operating table in supine position. Final verification the patient, surgery, limb designation was performed via the timeout procedure. The anesthesia team initiated MAC. Local anesthetic was administered as described above. The left lower extremity is prepped and draped in the usual aseptic manner. No tourniquet was utilized. Attention was first directed to the large wound to the anterior left leg that measures 18.3 x 7.0 x 0.8 cm. A 15 blade and a forcep was used to remove devitalized necrotic tibialis anterior tendon, biofilm, slough. Additionally a curette was used to debride the borders and other exposed subcutaneous tissue. There is an area of exposed bone to the proximal medial aspect of this wound bed which is not discolored or soft to touch. There is no purulence or necrosis noted at or after the tendon debridement in this wound does not appear to be infected at this time. He did demonstrate some hematogenous drainage however this is not pulsatile or uncontrolled after pressure was applied. The post debridement measurement was 18.5 x 7.2 x 0.8 cm. Attention was next directed to the left posterior medial wound that measures 5.0 x 2.0 x 0.2 cm. A curette was used to remove devitalized subcutaneous, fibrous, biofilm, slough tissue. Again pressure was applied to maintain hemostasis and the post debridement measurement was 5.2 x 2.1 x 0.2 cm. The leg was copiously irrigated with normal saline. Epi cord was fashioned over the exposed tibialis anterior tendon was sutured in place with 3-0 nylon. Additional advanced wound care product, Amniofill, was gently applied to the adjacent exposed bone and subcutaneous tissue to the medial lower aspect of the centrally located tendon. The wound was covered 100% and additional epi cord was sutured over the previously exposed bone area. Adaptic was next applied and gently sutured in place at 3 locations. The advancement product was gently moistened with saline gauze and incorporation and absorption was initiated. The remaining Amniofill product was applied to the posterior medial left leg wound and this was additionally covered with Adaptic and moistened with saline. Next, a jose (10 x 10) was applied to cover the large wound and was secured in place. This was turned on and no leaks were identified. The posterior wound was covered with gauze abdominal pad. The remainder of the leg was padded with abdominal pad and the wound VAC port was padded and secured to the leg with additional Kerlix and Brandon wrap applied in a noncompressive manner. Prior to dressing application it was noted that there was no pulsatile bleeding and brisk capillary refill time continue to all digits the left foot. After procedure: The patient tolerated the procedure and anesthesia well. He was transported to the PACU with vital signs stable and vascular status intact to left lower extremity. He will be discharged home later today. He was advised to keep his dressing and wound VAC clean dry and intact until follow-up visit at the wound care center next Monday. He was advised to elevate his limb and to avoid excessive walking activities. He was advised to avoid smoking and alcohol. He was advised to continue with proper nutrition to optimize healing and to keep pressure off of the wound site. I will continue to follow him closely during his recovery period. All of his postoperative orders were entered electronically. Linda Cleary DPM, [facility] Grafts/Implants Used: epicord and amniofill
== END 2018-04-03 17:15 | disposition home or self-care (01) ==
LOC: SDC 12:59 → AC 13:01
PROVIDERS: Family Provider Internal Medicine; PCP Internal Medicine; Visit Provider Podiatrist
PROC: (CPT 11042; principal; 2018-04-03 14:20)
DX: L97.823 Non-pressure chronic ulcer of other part of left lower leg with necrosis of muscle (principal); L97.222 Non-pressure chronic ulcer of left calf with fat layer exposed; I73.9 Peripheral vascular disease, unspecified; I87.2 Venous insufficiency (chronic) (peripheral); D64.9 Anemia, unspecified; G62.9 Polyneuropathy, unspecified; E46 Unspecified protein-calorie malnutrition; I13.0 Hypertensive heart and chronic kidney disease with heart failure and stage 1 through stage 4 chronic kidney disease, or unspecified chronic kidney disease; N18.9 Chronic kidney disease, unspecified; I50.9 Heart failure, unspecified; I48.91 Unspecified atrial fibrillation; Z68.24 Body mass index [BMI] 24.0-24.9, adult; Z91.19 Patient's noncompliance with other medical treatment and regimen; Z87.891 Personal history of nicotine dependence; Z85.828 Personal history of other malignant neoplasm of skin; Z79.02 Long term (current) use of antithrombotics/antiplatelets; Z79.82 Long term (current) use of aspirin; Z79.899 Other long term (current) drug therapy
CPT/HCPCS: 01470; 11042; 11043; 80053; 85027; J7120

== ENCOUNTER 2018-04-11 08:30 | Outpatient (RCR) | payer MEDICARE, OTHER, SELFPAY ==
[2018-03-18 00:24] VITALS: BP 93/54; PULSE 111; RESP 16; TEMP 37.1; BMI 65.4
[2018-03-23 08:17] VITALS: BP 96/59; PULSE 125; RESP 18; TEMP 37.3; BMI 65.4
--- NOTE | 2018-03-23 09:33 | PCM.WC.PN ---
(1) MRSA (methicillin resistant staph aureus) culture positive Status: Acute Current Visit: Yes Code(s): Z22.322 - Carrier or suspected carrier of Methicillin resistant Staphylococcus aureus (2) Cellulitis of left leg Status: Acute Current Visit: Yes Code(s): L03.116 - Cellulitis of left lower limb (3) Infected open wound Status: Acute Current Visit: Yes Code(s): T14.8XXA - Other injury of unspecified body region, initial encounter; L08.9 - Local infection of the skin and subcutaneous tissue, unspecified (4) Nonhealing ulcer of left lower leg Status: Acute Current Visit: Yes Code(s): L97.829 - Non-pressure chronic ulcer of other part of left lower leg with unspecified severity (5) 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 Status: Acute Current Visit: Yes Code(s): L97.922 - Non-pressure chronic ulcer of unspecified part of left lower leg with fat layer exposed (6) Venous insufficiency Status: Acute Current Visit: Yes Code(s): I87.2 - Venous insufficiency (chronic) (peripheral) (7) Anemia Status: Chronic Current Visit: Yes Code(s): D64.9 - Anemia, unspecified (8) Bilateral edema of lower extremity Status: Chronic Current Visit: Yes Code(s): R60.0 - Localized edema (9) CKD (chronic kidney disease) stage 3, GFR 30-59 ml/min Status: Chronic Current Visit: Yes Code(s): N18.3 - Chronic kidney disease, stage 3 (moderate) (10) Chronic atrial fibrillation Status: Chronic Current Visit: Yes Code(s): I48.2 - Chronic atrial fibrillation (11) PAOD (peripheral arterial occlusive disease) Status: Chronic Current Visit: Yes Code(s): I77.9 - Disorder of arteries and arterioles, unspecified (12) Peripheral vascular disease of extremity with claudication Status: Chronic Current Visit: Yes Code(s): I73.9 - Peripheral vascular disease, unspecified Type of Wound Date of Service: 03/23/18 Chief Complaint: Follow-up on left lower leg ulcers History of Wound: 77-year-old male who had surgery with Dr. 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 He follows up today for 2 left left lower extremity wounds. He has increased swelling and inflammation to that site today. He did not obtain his walking boot yet. He denies fever, chill, nausea, vomiting, loss of appetite, odor, streaking to the leg. He was previously not amenable to go to surgery he would like to reconsider this at this time. His increased leg swelling and relates he has been more active over this past holiday weekend. Progress of Wound: 77-year-old white male with a anterior open ulcer to the left lower ray. And to the left posterior calf. Patient's open ulcer to the ray has tendon exposed. The posterior calf is open but just subcutaneously and healing slowly. Today tendon still exposed on the anterior lower leg ulcer is larger but there is developing skin growth over the tendon can be seen from the epi fix it is crucial and medically necessary to continue using the epi fix to we can get him in surgery to cover the tendon before we lose it. Today we had him sign surgery papers for Dr. Engel on to get this done in early part of March. MRIs x-rays show no osteomyelitis at this point but we discussed with him it is really medically necessary that we close this and cover that tendon before he loses the leg. Discussed with patient offloading of the posterior ulcer needs to be done better he is developing pressure on that area that is keeping it open. Patient did show MRSA on this last culture and will be started on Levaquin 500 for 14 days. - Physical Exam Vital Signs Temp Pulse Resp BP 99.1 F 125 H 18 96/59 L 03/23/18 08:17 03/23/18 08:17 03/23/18 08:17 03/23/18 08:17 General: Oriented x3, Cooperative, Well developed HEENT: Atraumatic, PERRLA Oral: Moist Mucosa Neck: Supple, No JVD Lungs: Clear to auscultation, Normal air movement Cardiovascular: Regular rate, Regular Rhythm Abdomen: Bowel Sounds Present, Soft, Non Tender, No Hepato-splenomegaly Extremities: No clubbing, No edema Skin: Ulcer/ Wound - Floor ray ulcer with tendon posterior ulcer subcutaneously Wound Measurements and Assessment WC - Nurse 1 - General Ulcer Measurement Start: 03/23/18 08:16 Freq: Status: Active Protocol: Activity Type Activity Date Activity User E-Sign Co-Sign Detail Recorded Client Recorded Date Recorded By Document 03/23/18 08:17 TN [id number] 03/23/18 08:27 TN 03/23/18 08:17 Wound Center Nurse 1 [Ulcer Assessment] #6 L Ray -Combined with other wound No -Current Size (cm) - Length 15 -Current Size (cm) - Width 6.2 -Current Size (cm) - Depth 0.2 -Total Square Cm 93.0 -Photo Taken No -Epithelialization None Present -Tunneling No -Undermining/Tunneling No -Circular Undermining No -Classification - Thickness Full Thickness with Exposed Support Structure -Change in Wound Grade/Stage No Query Text:If change please identify the Stage/Grade in the comment (ie. S2 G3) -Exudate Amt Large (67-100%) -Exudate Type Yellow/Green -Wound Margin Distinct, Outline Attached -Granulation Amt Small (1-33%) -Granulation Quality [place] -Slough/Fibrin Yes -Necrosis Amt Large (67-100%) -Necrotic Tissue Type Adherent Slough -Structure Exposed Tendon -Texture (Cyndy-wound Skin Appearance) Assessed Localized Edema Scarring -Moisture (Cyndy-wound Skin Appearance Assessed ) Maceration -Color (Cyndy-wound Skin Appearance) Assessed Erythema Hemosiderin Staining -Temperature (Cyndy-wound Skin No Abnormality Appearance) (Pt Warm) -Tenderness on Palpation (Cyndy-wound No Skin Appearance) -Ulcer Cleansing Wound Cleanser -Foul Odor after Cleansing No -Anesthetic Used 5% Lidocaine Gel #5 LLE Post -Combined with other wound No -Current Size (cm) - Length 1.8 -Current Size (cm) - Width 1.4 -Current Size (cm) - Depth 0.2 -Total Square Cm 2.52 -Photo Taken No -Epithelialization None Present -Tunneling No -Undermining/Tunneling No -Circular Undermining No -Classification - Thickness Full Thickness without Exposed Support Structure -Change in Wound Grade/Stage No Query Text:If change please identify the Stage/Grade in the comment (ie. S2 G3) -Exudate Amt Large (67-100%) -Exudate Type Serosanguineous -Wound Margin Distinct, Outline Attached -Granulation Amt Medium (34-66%) -Granulation Quality [place] -Slough/Fibrin Yes -Necrosis Amt Medium (34-66%) -Necrotic Tissue Type Adherent Slough -Structure Exposed None/Limited to Skin Breakdown -Texture (Cyndy-wound Skin Appearance) Assessed Localized Edema Scarring -Moisture (Cyndy-wound Skin Appearance Assessed ) Maceration -Color (Cyndy-wound Skin Appearance) Assessed Erythema Hemosiderin Staining -Temperature (Cyndy-wound Skin No Abnormality Appearance) (Pt Warm) -Tenderness on Palpation (Cyndy-wound No Skin Appearance) -Ulcer Cleansing Wound Cleanser -Foul Odor after Cleansing No -Anesthetic Used 5% Lidocaine Gel [Edema Assessment] -Lower Limb Edema Present Yes -Left Calf (cm) 42.5 -Left Ankle (cm) 30.7 WC - Nurse 2 - General Ulcer CM Notes Start: 03/23/18 08:16 Freq: Status: Active Protocol: Activity Type Activity Date Activity User E-Sign Co-Sign Detail Recorded Client Recorded Date Recorded By Document 03/23/18 08:49 LORA [id number] 03/23/18 08:58 LORA 03/23/18 08:49 Wound Center Nurse 2 [Procedure/Treatment] #6 L Ray -Time 08:49 -Correct Patient Yes -Correct Side, Site, Position Yes -Correct Procedure Yes -Procedure Performed Yes -Type of Procedure Debridement -Clinical Debridement Muscle -Post Debridement Size (cm) - Length 15.5 -Post Debridement Size (cm) - Width 6.5 -Post Debridement Size (cm) - Depth 0.8 -Total Square Cm 100.75 -Wound/Ulcer Outcome Not Healed -Ulcer Cleansing Rinsed/ Irrigated with Saline -Foul Odor after Cleansing No -Bioengineered Tissue No -Bleeding Controlled with NA -Treatment Response Procedure Tolerated Well #5 LLE Post -Time 08:50 -Correct Patient Yes -Correct Side, Site, Position Yes -Correct Procedure Yes -Procedure Performed Yes -Type of Procedure Debridement -Clinical Debridement Subcutaneous -Post Debridement Size (cm) - Length 5.2 -Post Debridement Size (cm) - Width 1.5 -Post Debridement Size (cm) - Depth 0.2 -Total Square Cm 7.80 -Wound/Ulcer Outcome Not Healed -Ulcer Cleansing Rinsed/ Irrigated with Saline -Foul Odor after Cleansing No -Bioengineered Tissue No -Bleeding Controlled with NA -Treatment Response Procedure Tolerated Well [See Physician Procedure note for Specifics] Pain Scale: 0-10 Numeric [Pain] -Is Patient Pain Free? Yes Musculoskeletal: No Tenderness to Palpation of Joints or Extremities Lymphatic: No Cervical, Supraclavicular, or Inguinal Adenopathy Neurological: Cranial nerves II-XII grossly intact, Neuro grossly intact Psych/Mental Status: Normal Affect, Appropriate Debridement Note Post-Debridement Measurements/Treatment WC - Nurse 2 - General Ulcer CM Notes Start: 03/23/18 08:16 Freq: Status: Active Protocol: Activity Type Activity Date Activity User E-Sign Co-Sign Detail Recorded Client Recorded Date Recorded By Document 03/23/18 08:49 LORA [id number] 03/23/18 08:58 LORA 03/23/18 08:49 Wound Center Nurse 2 #6 L Ray -Time 08:49 -Correct Patient Yes -Correct Side, Site, Position Yes -Correct Procedure Yes -Procedure Performed Yes -Type of Procedure Debridement -Clinical Debridement Muscle -Post Debridement Size (cm) - Length 15.5 -Post Debridement Size (cm) - Width 6.5 -Post Debridement Size (cm) - Depth 0.8 -Total Square Cm 100.75 -Wound/Ulcer Outcome Not Healed -Ulcer Cleansing Rinsed/ Irrigated with Saline -Foul Odor after Cleansing No -Bioengineered Tissue No -Bleeding Controlled with NA -Treatment Response Procedure Tolerated Well #5 LLE Post -Time 08:50 -Correct Patient Yes -Correct Side, Site, Position Yes -Correct Procedure Yes -Procedure Performed Yes -Type of Procedure Debridement -Clinical Debridement Subcutaneous -Post Debridement Size (cm) - Length 5.2 -Post Debridement Size (cm) - Width 1.5 -Post Debridement Size (cm) - Depth 0.2 -Total Square Cm 7.80 -Wound/Ulcer Outcome Not Healed -Ulcer Cleansing Rinsed/ Irrigated with Saline -Foul Odor after Cleansing No -Bioengineered Tissue No -Bleeding Controlled with NA -Treatment Response Procedure Tolerated Well Pain Scale: 0-10 Numeric Is Patient Pain Free? Yes Wound debrided: Left lower ray area Type of Debridement: Excisional debridement Anesthesia Used: 5% Lidocaine Gel Depth: Down to and including healthy tissue, in the subcutaneous layer Instrument Used: 7mm curette Tissue Removed: Slough and fibrin Severity: Limited To Skin Breakdown Amount of bleeding with debridement: None Bleeding Controlled with: Pressure Patient tolerated procedure well - Additional Wound Wound debrided: Posterior left lower leg calf Type of Debridement: Excisional debridement Anesthesia Used: 5% Lidocaine Gel Depth: Down to and including healthy tissue, in the subcutaneous layer Instrument Used: 5mm curette Tissue Removed: Fibrin and some slough Severity: Limited To Skin Breakdown Amount of bleeding with debridement: None Bleeding Controlled with: Compression and gauze Patient tolerated procedure: Patient tolerated procedure well Assessment/Plan Active Problems 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 Worsening status of left lower extremity; infection workup in process. Rule out MRSA carrier status. Bilateral lower leg edema swelling increased in the left leg. Left lower leg ulcer-anterior and posterior. 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 Atrial fib to onset. Peripheral vascular disease Plan: Wash left leg in shower with Hibiclens apply Sangeeta to all of left anterior and posterior ray area cover with Adaptic gauze wrap double layer Tubigrip follow-up in 1 week. We referred him back to Dr. Engel on for surgery patient has agreed to with us that he needs surgery. Surgery permission signed. Can be seen with me till surgery is scheduled am actually performed.
[2018-03-30 08:17] VITALS: BP 110/59; PULSE 120; RESP 20; TEMP 36.4; BMI 65.4
--- NOTE | 2018-03-30 09:34 | PCM.WC.PN ---
(1) MRSA (methicillin resistant staph aureus) culture positive Status: Acute Current Visit: Yes Code(s): Z22.322 - Carrier or suspected carrier of Methicillin resistant Staphylococcus aureus (2) Cellulitis of left leg Status: Acute Current Visit: Yes Code(s): L03.116 - Cellulitis of left lower limb (3) Infected open wound Status: Acute Current Visit: Yes Code(s): T14.8XXA - Other injury of unspecified body region, initial encounter; L08.9 - Local infection of the skin and subcutaneous tissue, unspecified (4) Nonhealing ulcer of left lower leg Status: Acute Current Visit: Yes Code(s): L97.829 - Non-pressure chronic ulcer of other part of left lower leg with unspecified severity (5) 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 Status: Acute Current Visit: Yes Code(s): L97.922 - Non-pressure chronic ulcer of unspecified part of left lower leg with fat layer exposed (6) Venous insufficiency Status: Acute Current Visit: Yes Code(s): I87.2 - Venous insufficiency (chronic) (peripheral) (7) Anemia Status: Chronic Current Visit: Yes Code(s): D64.9 - Anemia, unspecified (8) Bilateral edema of lower extremity Status: Chronic Current Visit: Yes Code(s): R60.0 - Localized edema (9) CKD (chronic kidney disease) stage 3, GFR 30-59 ml/min Status: Chronic Current Visit: Yes Code(s): N18.3 - Chronic kidney disease, stage 3 (moderate) (10) Chronic atrial fibrillation Status: Chronic Current Visit: Yes Code(s): I48.2 - Chronic atrial fibrillation (11) PAOD (peripheral arterial occlusive disease) Status: Chronic Current Visit: Yes Code(s): I77.9 - Disorder of arteries and arterioles, unspecified (12) Peripheral vascular disease of extremity with claudication Status: Chronic Current Visit: Yes Code(s): I73.9 - Peripheral vascular disease, unspecified (13) Chronic systolic CHF (congestive heart failure) Status: Chronic Current Visit: Yes Code(s): I50.22 - Chronic systolic (congestive) heart failure Type of Wound Date of Service: 03/30/18 Chief Complaint: Follow-up on left lower leg ulcers History of Wound: 77-year-old male who had surgery with Dr. 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 He follows up today for 2 left left lower extremity wounds. He has increased swelling and inflammation to that site today. He did not obtain his walking boot yet. He denies fever, chill, nausea, vomiting, loss of appetite, odor, streaking to the leg. He was previously not amenable to go to surgery he would like to reconsider this at this time. His increased leg swelling and relates he has been more active over this past holiday weekend. Progress of Wound: 77-year-old white male with a anterior open ulcer to the left lower christensen. And to the left posterior calf. Patient's open ulcer to the christensen has tendon exposed. The posterior calf is open but just subcutaneously and healing slowly. Today tendon still exposed on the anterior lower leg ulcer is larger. the epi fix is crucial and medically necessary to continue using in surgery to cover the tendon before we lose it. Today patient has appointment with Dr. Laisha Fulton for preop evaluation for surgery on Monday . MRIs x-rays show no osteomyelitis at this point but we discussed with him it is really medically necessary that we close this and cover that tendon before he loses the leg. Discussed with patient offloading of the posterior ulcer needs to be done better he is developing pressure on that area that is keeping it open. Patient did show MRSA on this last culture and will be started on Levaquin 500 for 14 days. - Physical Exam Vital Signs Temp Pulse Resp BP 97.5 F L 120 H 20 H 110/59 L 03/30/18 08:17 03/30/18 08:17 03/30/18 08:17 03/30/18 08:17 General: Oriented x3, Cooperative, Well developed HEENT: Atraumatic, PERRLA Oral: Moist Mucosa Neck: Supple, No JVD Lungs: Clear to auscultation, Normal air movement Cardiovascular: Regular rate, Regular Rhythm Abdomen: Bowel Sounds Present, Soft, Non Tender, No Hepato-splenomegaly Extremities: No clubbing, Edema Skin: Ulcer/ Wound, - - Cellulitis around the wound Wound Measurements and Assessment WC - Nurse 1 - General Ulcer Measurement Start: 03/23/18 08:16 Freq: Status: Active Protocol: Activity Type Activity Date Activity User E-Sign Co-Sign Detail Recorded Client Recorded Date Recorded By Document 03/30/18 08:17 DL [id number] 03/30/18 08:34 DL 03/30/18 08:17 Wound Center Nurse 1 [Ulcer Assessment] #6 L Christensen -Current Size (cm) - Length 17.6 -Current Size (cm) - Width 6.2 -Current Size (cm) - Depth 0.5 -Total Square Cm 109.12 -Photo Taken No -Exudate Amt Large (67-100%) -Exudate Type Serosanguineous -Wound Margin Distinct, Outline Attached -Granulation Amt Medium (34-66%) -Granulation Quality [place] -Necrosis Amt Large (67-100%) -Necrotic Tissue Type Adherent Slough -Structure Exposed Tendon Bone -Texture (Cyndy-wound Skin Appearance) Localized Edema -Moisture (Cyndy-wound Skin Appearance Dry/Scaly ) -Color (Cyndy-wound Skin Appearance) Erythema Hemosiderin Staining -Temperature (Cyndy-wound Skin No Abnormality Appearance) (Pt Warm) -Tenderness on Palpation (Cyndy-wound No Skin Appearance) -Ulcer Cleansing Wound Cleanser -Foul Odor after Cleansing No -Anesthetic Used 4% Lidocaine Solution #5 LLE Post -Current Size (cm) - Length 3.2 -Current Size (cm) - Width 2.2 -Current Size (cm) - Depth 0.2 -Total Square Cm 7.04 -Photo Taken No -Exudate Amt Medium (34-66%) -Exudate Type Serosanguineous -Wound Margin Distinct, Outline Attached -Granulation Amt Medium (34-66%) -Granulation Quality Lexa -Necrosis Amt Medium (34-66%) -Necrotic Tissue Type Adherent Slough -Structure Exposed N/A -Texture (Cyndy-wound Skin Appearance) Scarring -Moisture (Cyndy-wound Skin Appearance Dry/Scaly ) -Color (Cyndy-wound Skin Appearance) Hemosiderin Staining -Temperature (Cyndy-wound Skin No Abnormality Appearance) (Pt Warm) -Ulcer Cleansing Wound Cleanser -Foul Odor after Cleansing No -Anesthetic Used 4% Lidocaine Solution [Edema Assessment] -Right Calf (cm) 41 -Right Ankle (cm) 27.2 WC - Nurse 2 - General Ulcer CM Notes Start: 03/23/18 08:16 Freq: Status: Active Protocol: Activity Type Activity Date Activity User E-Sign Co-Sign Detail Recorded Client Recorded Date Recorded By Document 03/30/18 09:10 [id number] 03/30/18 09:13 03/30/18 09:10 Wound Center Nurse 2 [Procedure/Treatment] #6 L Christensen -Time 09:10 -Correct Patient Yes -Correct Side, Site, Position Yes -Correct Procedure Yes -Procedure Performed Yes -Type of Procedure Debridement -Clinical Debridement Bone -Post Debridement Size (cm) - Length 18.3 -Post Debridement Size (cm) - Width 7.0 -Post Debridement Size (cm) - Depth 0.8 -Total Square Cm 128.10 -Wound/Ulcer Outcome Not Healed -Ulcer Cleansing Rinsed/ Irrigated with Saline -Foul Odor after Cleansing No -Bioengineered Tissue No -Topical Lidocaine (%) 4 -Lidocaine (ml) 20 -Bleeding Controlled with NA -Treatment Response Procedure Tolerated Well #5 LLE Post -Time 09:12 -Correct Patient Yes -Correct Side, Site, Position Yes -Correct Procedure Yes -Procedure Performed Yes -Type of Procedure Debridement -Clinical Debridement Subcutaneous -Post Debridement Size (cm) - Length 5.0 -Post Debridement Size (cm) - Width 2.0 -Post Debridement Size (cm) - Depth 0.2 -Total Square Cm 10.00 -Wound/Ulcer Outcome Not Healed -Ulcer Cleansing Rinsed/ Irrigated with Saline -Foul Odor after Cleansing No -Bioengineered Tissue No -Topical Lidocaine (%) 5 -Lidocaine (ml) 10 -Bleeding Controlled with NA -Treatment Response Procedure Tolerated Well [See Physician Procedure note for Specifics] Pain Scale: 0-10 Numeric [Pain] -Is Patient Pain Free? Yes Musculoskeletal: No Tenderness to Palpation of Joints or Extremities Lymphatic: No Cervical, Supraclavicular, or Inguinal Adenopathy Neurological: Cranial nerves II-XII grossly intact, Neuro grossly intact Psych/Mental Status: Normal Affect, Appropriate Debridement Note Post-Debridement Measurements/Treatment WC - Nurse 2 - General Ulcer CM Notes Start: 03/23/18 08:16 Freq: Status: Active Protocol: Activity Type Activity Date Activity User E-Sign Co-Sign Detail Recorded Client Recorded Date Recorded By Document 03/23/18 08:49 [id number] 03/23/18 08:58 Document 03/30/18 09:10 [id number] 03/30/18 09:13 LORA 03/23/18 03/30/18 08:49 09:10 Wound Center Nurse 2 #6 L Christensen -Time 08:49 09:10 -Correct Patient Yes Yes -Correct Side, Site, Position Yes Yes -Correct Procedure Yes Yes -Procedure Performed Yes Yes -Type of Procedure Debridement Debridement -Clinical Debridement Muscle Bone -Post Debridement Size (cm) - Length 15.5 18.3 -Post Debridement Size (cm) - Width 6.5 7.0 -Post Debridement Size (cm) - Depth 0.8 0.8 -Total Square Cm 100.75 128.10 -Wound/Ulcer Outcome Not Healed Not Healed -Ulcer Cleansing Rinsed/ Rinsed/ Irrigated with Irrigated with Saline Saline -Foul Odor after Cleansing No No -Bioengineered Tissue No No -Topical Lidocaine (%) 4 -Lidocaine (ml) 20 -Bleeding Controlled with NA NA -Treatment Response Procedure Procedure Tolerated Well Tolerated Well #5 LLE Post -Time 08:50 09:12 -Correct Patient Yes Yes -Correct Side, Site, Position Yes Yes -Correct Procedure Yes Yes -Procedure Performed Yes Yes -Type of Procedure Debridement Debridement -Clinical Debridement Subcutaneous Subcutaneous -Post Debridement Size (cm) - Length 5.2 5.0 -Post Debridement Size (cm) - Width 1.5 2.0 -Post Debridement Size (cm) - Depth 0.2 0.2 -Total Square Cm 7.80 10.00 -Wound/Ulcer Outcome Not Healed Not Healed -Ulcer Cleansing Rinsed/ Rinsed/ Irrigated with Irrigated with Saline Saline -Foul Odor after Cleansing No No -Bioengineered Tissue No No -Topical Lidocaine (%) 5 -Lidocaine (ml) 10 -Bleeding Controlled with NA NA -Treatment Response Procedure Procedure Tolerated Well Tolerated Well Pain Scale: 0-10 Numeric Is Patient Pain Free? Yes Yes Wound debrided: Left anterior christensen Type of Debridement: Excisional debridement Anesthesia Used: 5% Lidocaine Gel Depth: in the subcutaneous layer, to muscle, to bone Percentage of wound debrided: 100 Instrument Used: 7mm curette Tissue Removed: Devitalized tissue and fibrin Amount of bleeding with debridement: Moderate Bleeding Controlled with: Compression and gauze, Gel Foam Patient tolerated procedure well Assessment/Plan Active Problems 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 (Acute) Venous insufficiency (Acute) Cellulitis of left leg (Acute) CKD (chronic kidney disease) stage 3, GFR 30-59 ml/min (Chronic) Anemia (Chronic) MRSA (methicillin resistant staph aureus) culture positive (Acute) Infected open wound (Acute) Chronic systolic CHF (congestive heart failure) (Chronic) Chronic atrial fibrillation (Chronic) Bilateral edema of lower extremity (Chronic) PAOD (peripheral arterial occlusive disease) (Chronic) Peripheral vascular disease of extremity with claudication (Chronic) Nonhealing ulcer of left lower leg (Acute) Assessment: 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 Worsening status of left lower extremity; infection workup in process. 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 Bilateral lower leg edema swelling increased in the left leg. Left lower leg ulcer-anterior and posterior. 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 Atrial fib to onset. Peripheral vascular disease Plan: Wash left leg in shower with Hibiclens apply Sangeeta to all of left anterior and posterior christensen area cover with Adaptic gauze wrap double layer Tubigrip. We referred him back to Dr. Engel for surgery patient has agreed to with us that he needs surgery. Surgery permission signed. Keep appointment with Dr. Laisha Fulton for preop eval. Transfer care to Dr. Maren ozuna for postoperative care
--- NOTE | 2018-03-30 09:44 | PN.PCM_ITS ---
(1) MRSA (methicillin resistant staph aureus) culture positive Status: Acute Current Visit: Yes Code(s): Z22.322 - Carrier or suspected carrier of Methicillin resistant Staphylococcus aureus (2) Cellulitis of left leg Status: Acute Current Visit: Yes Code(s): L03.116 - Cellulitis of left lower limb (3) Infected open wound Status: Acute Current Visit: Yes Code(s): T14.8XXA - Other injury of unspecified body region, initial encounter; L08.9 - Local infection of the skin and subcutaneous tissue, unspecified (4) Nonhealing ulcer of left lower leg Status: Acute Current Visit: Yes Code(s): L97.829 - Non-pressure chronic ulcer of other part of left lower leg with unspecified severity (5) 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 Status: Acute Current Visit: Yes Code(s): L97.922 - Non-pressure chronic ulcer of unspecified part of left lower leg with fat layer exposed (6) Venous insufficiency Status: Acute Current Visit: Yes Code(s): I87.2 - Venous insufficiency ( chronic) (peripheral) (7) Anemia Status: Chronic Current Visit: Yes Code(s): D64.9 - Anemia, unspecified (8) Bilateral edema of lower extremity Status: Chronic Current Visit: Yes Code(s): R60.0 - Localized edema (9) CKD (chronic kidney disease) stage 3, GFR 30-59 ml/min Status: Chronic Current Visit: Yes Code(s): N18.3 - Chronic kidney disease, stage 3 (moderate) (10) Chronic atrial fibrillation Status: Chronic Current Visit: Yes Code(s): I48.2 - Chronic atrial fibrillation (11) PAOD (peripheral arterial occlusive disease) Status: Chronic Current Visit: Yes Code(s): I77.9 - Disorder of arteries and arterioles, unspecified (12) Peripheral vascular disease of extremity with claudication Status: Chronic Current Visit: Yes Code(s): I73.9 - Peripheral vascular disease, unspecified (13) Chronic systolic CHF (congestive heart failure) Status: Chronic Current Visit: Yes Code(s): I50.22 - Chronic systolic ( congestive) heart failure Type of Wound Date of Service: 03/30/18 Chief Complaint: Follow-up on left lower leg ulcers History of Wound: 77-year-old male who had surgery with Dr. 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 He follows up today for 2 left left lower extremity wounds. He has increased swelling and inflammation to that site today. He did not obtain his walking boot yet. He denies fever, chill, nausea, vomiting, loss of appetite, odor, streaking to the leg. He was previously not amenable to go to surgery he would like to reconsider this at this time. His increased leg swelling and relates he has been more active over this past holiday weekend. Progress of Wound: 77-year-old white male with a anterior open ulcer to the left lower christensen. And to the left posterior calf. Patient's open ulcer to the christensen has tendon exposed. The posterior calf is open but just subcutaneously and healing slowly. Today tendon still exposed on the anterior lower leg ulcer is larger. the epi fix is crucial and medically necessary to continue using in surgery to cover the tendon before we lose it. Today patient has appointment with Dr. Laisha Fulton for preop evaluation for surgery on Monday . MRIs x- rays show no osteomyelitis at this point but we discussed with him it is really medically necessary that we close this and cover that tendon before he loses the leg. Discussed with patient offloading of the posterior ulcer needs to be done better he is developing pressure on that area that is keeping it open. Patient did show MRSA on this last culture and will be started on Levaquin 500 for 14 days. - Physical Exam Vital Signs Temp Pulse Resp BP 97.5 F L 120 H 20 H 110/59 L 03/30/18 08:17 03/30/18 08:17 03/30/18 08:17 03/30/18 08:17 General: Oriented x3, Cooperative, Well developed HEENT: Atraumatic, PERRLA Oral: Moist Mucosa Neck: Supple, No JVD Lungs: Clear to auscultation, Normal air movement Cardiovascular: Regular rate, Regular Rhythm Abdomen: Bowel Sounds Present, Soft, Non Tender, No Hepato-splenomegaly Extremities: No clubbing, Edema Skin: Ulcer/ Wound, - - Cellulitis around the wound Wound Measurements and Assessment WC - Nurse 1 - General Ulcer Measurement Start: 03/23/18 08:16 Freq: Status: Active Protocol: Activity Type Activity Date Activity User E-Sign Co-Sign Detail Recorded Client Recorded Date Recorded By Document 03/30/18 08:17 DL [id number] 03/30/18 08:34 DL 03/30/18 08:17 Wound Center Nurse 1 [Ulcer Assessment] #6 L Christensen -Current Size (cm) - Length 17.6 -Current Size (cm) - Width 6.2 -Current Size (cm) - Depth 0.5 -Total Square Cm 109.12 -Photo Taken No -Exudate Amt Large (67-100%) -Exudate Type Serosanguineous -Wound Margin Distinct, Outline Attached -Granulation Amt Medium (34-66%) -Granulation Quality [address] -Necrosis Amt Large (67-100%) -Necrotic Tissue Type Adherent Slough -Structure Exposed Tendon Bone -Texture (Cyndy-wound Skin Appearance) Localized Edema -Moisture (Cyndy-wound Skin Appearance Dry/Scaly ) -Color (Cyndy-wound Skin Appearance) Erythema Hemosiderin Staining -Temperature (Cyndy-wound Skin No Abnormality Appearance) (Pt Warm) -Tenderness on Palpation (Cyndy-wound No Skin Appearance) -Ulcer Cleansing Wound Cleanser -Foul Odor after Cleansing No -Anesthetic Used 4% Lidocaine Solution #5 LLE Post -Current Size (cm) - Length 3.2 -Current Size (cm) - Width 2.2 -Current Size (cm) - Depth 0.2 -Total Square Cm 7.04 -Photo Taken No -Exudate Amt Medium (34-66%) -Exudate Type Serosanguineous -Wound Margin Distinct, Outline Attached -Granulation Amt Medium (34-66%) -Granulation Quality [address] -Necrosis Amt Medium (34-66%) -Necrotic Tissue Type Adherent Slough -Structure Exposed N/A -Texture (Cyndy-wound Skin Appearance) Scarring -Moisture (Cyndy-wound Skin Appearance Dry/Scaly ) -Color (Cyndy-wound Skin Appearance) Hemosiderin Staining -Temperature (Cyndy-wound Skin No Abnormality Appearance) (Pt Warm) -Ulcer Cleansing Wound Cleanser -Foul Odor after Cleansing No -Anesthetic Used 4% Lidocaine Solution [Edema Assessment] -Right Calf (cm) 41 -Right Ankle (cm) 27.2 WC - Nurse 2 - General Ulcer CM Notes Start: 03/23/18 08:16 Freq: Status: Active Protocol: Activity Type Activity Date Activity User E-Sign Co-Sign Detail Recorded Client Recorded Date Recorded By Document 03/30/18 09:10 [id number] 03/30/18 09:13 03/30/18 09:10 Wound Center Nurse 2 [Procedure/Treatment] #6 L Christensen -Time 09:10 -Correct Patient Yes -Correct Side, Site, Position Yes -Correct Procedure Yes -Procedure Performed Yes -Type of Procedure Debridement -Clinical Debridement Bone -Post Debridement Size (cm) - Length 18.3 -Post Debridement Size (cm) - Width 7.0 -Post Debridement Size (cm) - Depth 0.8 -Total Square Cm 128.10 -Wound/Ulcer Outcome Not Healed -Ulcer Cleansing Rinsed/ Irrigated with Saline -Foul Odor after Cleansing No -Bioengineered Tissue No -Topical Lidocaine (%) 4 -Lidocaine (ml) 20 -Bleeding Controlled with NA -Treatment Response Procedure Tolerated Well #5 LLE Post -Time 09:12 -Correct Patient Yes -Correct Side, Site, Position Yes -Correct Procedure Yes -Procedure Performed Yes -Type of Procedure Debridement -Clinical Debridement Subcutaneous -Post Debridement Size (cm) - Length 5.0 -Post Debridement Size (cm) - Width 2.0 -Post Debridement Size (cm) - Depth 0.2 -Total Square Cm 10.00 -Wound/Ulcer Outcome Not Healed -Ulcer Cleansing Rinsed/ Irrigated with Saline -Foul Odor after Cleansing No -Bioengineered Tissue No -Topical Lidocaine (%) 5 -Lidocaine (ml) 10 -Bleeding Controlled with NA -Treatment Response Procedure Tolerated Well [See Physician Procedure note for Specifics] Pain Scale: 0-10 Numeric [Pain] -Is Patient Pain Free? Yes Musculoskeletal: No Tenderness to Palpation of Joints or Extremities Lymphatic: No Cervical, Supraclavicular, or Inguinal Adenopathy Neurological: Cranial nerves II-XII grossly intact, Neuro grossly intact Psych/Mental Status: Normal Affect, Appropriate Debridement Note Post-Debridement Measurements/Treatment WC - Nurse 2 - General Ulcer CM Notes Start: 03/23/18 08:16 Freq: Status: Active Protocol: Activity Type Activity Date Activity User E-Sign Co-Sign Detail Recorded Client Recorded Date Recorded By Document 03/23/18 08:49 [id number] 03/23/18 08:58 Document 03/30/18 09:10 [id number] 03/30/18 09:13 LORA 03/23/18 03/30/18 08:49 09:10 Wound Center Nurse 2 #6 L Christensen -Time 08:49 09:10 -Correct Patient Yes Yes -Correct Side, Site, Position Yes Yes -Correct Procedure Yes Yes -Procedure Performed Yes Yes -Type of Procedure Debridement Debridement -Clinical Debridement Muscle Bone -Post Debridement Size (cm) - Length 15.5 18.3 -Post Debridement Size (cm) - Width 6.5 7.0 -Post Debridement Size (cm) - Depth 0.8 0.8 -Total Square Cm 100.75 128.10 -Wound/Ulcer Outcome Not Healed Not Healed -Ulcer Cleansing Rinsed/ Rinsed/ Irrigated with Irrigated with Saline Saline -Foul Odor after Cleansing No No -Bioengineered Tissue No No -Topical Lidocaine (%) 4 -Lidocaine (ml) 20 -Bleeding Controlled with NA NA -Treatment Response Procedure Procedure Tolerated Well Tolerated Well #5 LLE Post -Time 08:50 09:12 -Correct Patient Yes Yes -Correct Side, Site, Position Yes Yes -Correct Procedure Yes Yes -Procedure Performed Yes Yes -Type of Procedure Debridement Debridement -Clinical Debridement Subcutaneous Subcutaneous -Post Debridement Size (cm) - Length 5.2 5.0 -Post Debridement Size (cm) - Width 1.5 2.0 -Post Debridement Size (cm) - Depth 0.2 0.2 -Total Square Cm 7.80 10.00 -Wound/Ulcer Outcome Not Healed Not Healed -Ulcer Cleansing Rinsed/ Rinsed/ Irrigated with Irrigated with Saline Saline -Foul Odor after Cleansing No No -Bioengineered Tissue No No -Topical Lidocaine (%) 5 -Lidocaine (ml) 10 -Bleeding Controlled with NA NA -Treatment Response Procedure Procedure Tolerated Well Tolerated Well Pain Scale: 0-10 Numeric Is Patient Pain Free? Yes Yes Wound debrided: Left anterior christensen Type of Debridement: Excisional debridement Anesthesia Used: 5% Lidocaine Gel Depth: in the subcutaneous layer, to muscle, to bone Percentage of wound debrided: 100 Instrument Used: 7mm curette Tissue Removed: Devitalized tissue and fibrin Amount of bleeding with debridement: Moderate Bleeding Controlled with: Compression and gauze, Gel Foam Patient tolerated procedure well Assessment/Plan Active Problems 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 (Acute) Venous insufficiency (Acute) Cellulitis of left leg (Acute) CKD (chronic kidney disease) stage 3, GFR 30-59 ml/min (Chronic) Anemia (Chronic) MRSA (methicillin resistant staph aureus) culture positive (Acute) Infected open wound (Acute) Chronic systolic CHF (congestive heart failure) (Chronic) Chronic atrial fibrillation (Chronic) Bilateral edema of lower extremity (Chronic) PAOD (peripheral arterial occlusive disease) (Chronic) Peripheral vascular disease of extremity with claudication (Chronic) Nonhealing ulcer of left lower leg (Acute) Assessment: 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 Worsening status of left lower extremity; infection workup in process. 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 Bilateral lower leg edema swelling increased in the left leg. Left lower leg ulcer-anterior and posterior. 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 Atrial fib to onset. Peripheral vascular disease Plan: Wash left leg in shower with Hibiclens apply Sangeeta to all of left anterior and posterior christensen area cover with Adaptic gauze wrap double layer Tubigrip. We referred him back to Dr. Engel for surgery patient has agreed to with us that he needs surgery. Surgery permission signed. Keep appointment with Dr. Laisha Fulton for preop eval. Transfer care to Dr. Maren ozuna for postoperative care
[2018-04-11 08:43] VITALS: BP 105/62; PULSE 115; RESP 18; TEMP 36.9; BMI 65.4
--- NOTE | 2018-04-11 09:51 | PN.PCM_ITS ---
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 Current Visit: Yes Code(s): L97.923 - Non-pressure chronic ulcer of unspecified part of left lower leg with necrosis of muscle (2) 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 Status: Chronic Current Visit: Yes Code(s): L97.922 - Non-pressure chronic ulcer of unspecified part of left lower leg with fat layer exposed (3) Venous insufficiency Status: Acute Current Visit: Yes Code(s): I87.2 - Venous insufficiency ( chronic) (peripheral) (4) CKD (chronic kidney disease) stage 3, GFR 30-59 ml/min Status: Chronic Current Visit: Yes Code(s): N18.3 - Chronic kidney disease, stage 3 (moderate) (5) Bilateral edema of lower extremity Status: Chronic Current Visit: Yes Code(s): R60.0 - Localized edema (6) Delayed wound healing Status: Chronic Current Visit: Yes Code(s): T14.8XXD - Other injury of unspecified body region, subsequent encounter Type of Wound Date of Service: 04/11/18 Chief Complaint: Follow-up on left lower leg ulcers History of Wound: 77-year-old male who had surgery with Dr. 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 He follows up today for 2 left left lower extremity wounds. He has increased swelling and inflammation to that site today. He did not obtain his walking boot yet. He denies fever, chill, nausea, vomiting, loss of appetite, odor, streaking to the leg. He was previously not amenable to go to surgery he would like to reconsider this at this time. His increased leg swelling and relates he has been more active over this past holiday weekend. Progress of Wound: 77-year-old white male with a anterior open ulcer to the left lower ray. And to the left posterior calf. Patient's open ulcer to the ray has tendon exposed. He had an advanced wound care product applied in the operating room last week after aggressive devitalized tendon debridement. A jose wound VAC was applied he kept this clean and intact. He has been trying to elevate the limb and reports pain with prolonged elevation. He does have some leg swelling he denies calf pain, shortness of breath, chest pain, fever, chill, nausea, vomiting, loss of appetite. He is here today with his . - Physical Exam Vital Signs Temp Pulse Resp BP 98.4 F 115 H 18 105/62 04/11/18 08:43 04/11/18 08:43 04/11/18 08:43 04/11/18 08:43 General: Alert, Oriented x3, Cooperative Extremities: No cyanosis, Capillary Refill Less than 3 Seconds, No Calf Tenderness - Negative Travon and Araya sign left lower extremity, Diminished Peripheral Pulses, Edema - Left lower extremity Skin: Ulcer/ Wound - No purulence, no odor, no erythema, streaking, no acute signs of infection. Wound veil of Adaptic is sutured into the skin with underlying advanced wound care product in place with partial incorporation. There is no peripheral maceration noted., - - The peripheral skin is hairless and atrophic Wound Measurements and Assessment WC - Nurse 1 - General Ulcer Measurement Start: 03/23/18 08:16 Freq: Status: Active Protocol: Activity Type Activity Date Activity User E-Sign Co-Sign Detail Recorded Client Recorded Date Recorded By Document 04/11/18 08:43 DL [id number] 04/11/18 08:52 DL 04/11/18 08:43 Wound Center Nurse 1 [Ulcer Assessment] #6 L Ray -Texture (Cyndy-wound Skin Appearance) No Abnormality -Moisture (Cyndy-wound Skin Appearance No Abnormality ) -Color (Cyndy-wound Skin Appearance) No Abnormality #5 LLE Post -Texture (Cyndy-wound Skin Appearance) No Abnormality -Moisture (Cyndy-wound Skin Appearance No Abnormality ) -Color (Cyndy-wound Skin Appearance) No Abnormality -Temperature (Cyndy-wound Skin No Abnormality Appearance) (Pt Warm) WC - Nurse 2 - General Ulcer CM Notes Start: 03/23/18 08:16 Freq: Status: Active Protocol: Activity Type Activity Date Activity User E-Sign Co-Sign Detail Recorded Client Recorded Date Recorded By Document 04/11/18 09:15 TM [id number] 04/11/18 09:19 TM 04/11/18 09:15 Wound Center Nurse 2 [Procedure/Treatment] #6 L Ray -Time 09:16 -Correct Patient Yes -Correct Side, Site, Position Yes -Correct Procedure Yes -Procedure Performed Yes -Post Debridement Size (cm) - Length 0.1 -Post Debridement Size (cm) - Width 0.1 -Post Debridement Size (cm) - Depth 0.1 -Total Square Cm 0.01 -Wound/Ulcer Outcome Not Healed -Ulcer Cleansing Not Cleansed -Foul Odor after Cleansing No -Bioengineered Tissue No -Bleeding Controlled with NA -Other amniofil and epicord intact covered with adaptic then JOSE NPWT applied -Treatment Response Procedure Tolerated Well #5 LLE Post -Time 09:17 -Correct Patient Yes -Correct Side, Site, Position Yes -Correct Procedure Yes -Procedure Performed Yes -Post Debridement Size (cm) - Length 0.1 -Post Debridement Size (cm) - Width 0.1 -Post Debridement Size (cm) - Depth 0.1 -Total Square Cm 0.01 -Wound/Ulcer Outcome Not Healed -Ulcer Cleansing Not Cleansed -Foul Odor after Cleansing No -Bioengineered Tissue No -Bleeding Controlled with NA -Other amniofil and epicord intact covered with adaptic then gauze -Treatment Response Procedure Tolerated Well [See Physician Procedure note for Specifics] Pain Scale: 0-10 Numeric [Pain] -Is Patient Pain Free? Yes Musculoskeletal: No Tenderness to Palpation of Joints or Extremities, Muscle Wasting Neurological: - - Lack of epicritic sensation light touch periwound Psych/Mental Status: Normal Affect, Appropriate Debridement Note Post-Debridement Measurements/Treatment WC - Nurse 2 - General Ulcer CM Notes Start: 03/23/18 08:16 Freq: Status: Active Protocol: Activity Type Activity Date Activity User E-Sign Co-Sign Detail Recorded Client Recorded Date Recorded By Document 03/23/18 08:49 [id number] 03/23/18 08:58 Document 03/30/18 09:10 [id number] 03/30/18 09:13 Document 04/11/18 09:15 [id number] 04/11/18 09:19 03/23/18 03/30/18 04/11/18 08:49 09:10 09:15 Wound Center Nurse 2 #6 L Ray -Time 08:49 09:10 09:16 -Correct Patient Yes Yes Yes -Correct Side, Site, Position Yes Yes Yes -Correct Procedure Yes Yes Yes -Procedure Performed Yes Yes Yes -Type of Procedure Debridement Debridement -Clinical Debridement Muscle Bone -Post Debridement Size (cm) - Length 15.5 18.3 0.1 -Post Debridement Size (cm) - Width 6.5 7.0 0.1 -Post Debridement Size (cm) - Depth 0.8 0.8 0.1 -Total Square Cm 100.75 128.10 0.01 -Wound/Ulcer Outcome Not Healed Not Healed Not Healed -Ulcer Cleansing Rinsed/ Rinsed/ Not Cleansed Irrigated with Irrigated with Saline Saline -Foul Odor after Cleansing No No No -Bioengineered Tissue No No No -Topical Lidocaine (%) 4 -Lidocaine (ml) 20 -Bleeding Controlled with NA NA NA -Other amniofil and epicord intact covered with adaptic then JOSE NPWT applied -Treatment Response Procedure Procedure Procedure Tolerated Well Tolerated Well Tolerated Well #5 LLE Post -Time 08:50 09:12 09:17 -Correct Patient Yes Yes Yes -Correct Side, Site, Position Yes Yes Yes -Correct Procedure Yes Yes Yes -Procedure Performed Yes Yes Yes -Type of Procedure Debridement Debridement -Clinical Debridement Subcutaneous Subcutaneous -Post Debridement Size (cm) - Length 5.2 5.0 0.1 -Post Debridement Size (cm) - Width 1.5 2.0 0.1 -Post Debridement Size (cm) - Depth 0.2 0.2 0.1 -Total Square Cm 7.80 10.00 0.01 -Wound/Ulcer Outcome Not Healed Not Healed Not Healed -Ulcer Cleansing Rinsed/ Rinsed/ Not Cleansed Irrigated with Irrigated with Saline Saline -Foul Odor after Cleansing No No No -Bioengineered Tissue No No No -Topical Lidocaine (%) 5 -Lidocaine (ml) 10 -Bleeding Controlled with NA NA NA -Other amniofil and epicord intact covered with adaptic then gauze -Treatment Response Procedure Procedure Procedure Tolerated Well Tolerated Well Tolerated Well Pain Scale: 0-10 Numeric Is Patient Pain Free? 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 Bilateral lower leg edema swelling increased in the left leg. Left lower leg ulcer-anterior (tendon exposed) and posterior (subcutaneous tissue exposed). 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 Atrial fib to onset. Peripheral vascular disease Plan: I reviewed and discussed his care plan. Debridement was not performed today because events wound care product is incorporating in. The underlying sutured Adaptic wound veil was left in place. The jose wound VAC was removed and additional product will be ordered for application next week. Today this is covered with gauze abdominal pads Kerlix and Tubigrip. He was advised to elevate his limb at least 20 min/hour. I am suspecting he is perhaps getting some ischemic pain with prolonged elevation. To follow-up with vascular surgery as advised. He is reassured there are no signs of infection or blood clot today. He was advised to monitor this and he demonstrates understanding. To continue nutritional supplementation optimize healing. To return to clinic in 1 week or call sooner if he has any questions or concerns.
== END 2018-04-17 23:59 ==
LOC: WC 08:30
PROVIDERS: Family Provider Internal Medicine; PCP Internal Medicine; Visit Provider Nurse Practitioner
DX: I73.9 Peripheral vascular disease, unspecified (principal); I48.2 Chronic atrial fibrillation; L97.821 Non-pressure chronic ulcer of other part of left lower leg limited to breakdown of skin; L97.221 Non-pressure chronic ulcer of left calf limited to breakdown of skin; I77.9 Disorder of arteries and arterioles, unspecified; R60.0 Localized edema; N18.3 Chronic kidney disease, stage 3 (moderate); L03.116 Cellulitis of left lower limb; Z86.14 Personal history of Methicillin resistant Staphylococcus aureus infection; I48.91 Unspecified atrial fibrillation; I50.22 Chronic systolic (congestive) heart failure
CPT/HCPCS: 11042; 11043; 11044; 11046; 11047; 99214; G0463

== ENCOUNTER 2018-05-16 15:00 | Outpatient (RCR) | payer MEDICARE, OTHER, SELFPAY ==
[2018-04-18 00:28] VITALS: BP 105/62; PULSE 115; RESP 18; TEMP 36.9; BMI 65.4
[2018-04-18 08:39] VITALS: BP 96/69; PULSE 128; RESP 18; TEMP 36.6; BMI 65.4
--- NOTE | 2018-04-18 08:56 | WC ---
veil sutured to wound periulcer let in place.
--- NOTE | 2018-04-18 11:15 | PCM.WC.PN ---
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 Current Visit: Yes Code(s): L97.923 - Non-pressure chronic ulcer of unspecified part of left lower leg with necrosis of muscle (2) Venous insufficiency Status: Chronic Current Visit: Yes Code(s): I87.2 - Venous insufficiency (chronic) (peripheral) (3) Delayed wound healing Status: Chronic Current Visit: Yes Code(s): T14.8XXD - Other injury of unspecified body region, subsequent encounter (4) Peripheral vascular disease of extremity with claudication Status: Chronic Current Visit: Yes Code(s): I73.9 - Peripheral vascular disease, unspecified Type of Wound Date of Service: 04/18/18 Chief Complaint: Follow-up on left lower leg ulcers History of Wound: 77-year-old male who had surgery with Dr. 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 He follows up today for 2 left left lower extremity wounds. He has decreased swelling and inflammation to that site today. He denies fever, chill, nausea, vomiting, loss of appetite, odor, streaking to the leg. He did undergo surgical debridement of his necrotic tendon with application of epi cord and amniofill within the last 2 weeks and is doing well. He is left his dressing intact. He is interested in having additional wound VAC applied today if appropriate. He relates significant decrease in pain and has been able to walk this past week. Progress of Wound: Stable - Physical Exam Vital Signs Temp Pulse Resp BP 97.8 F 128 H 18 96/69 04/18/18 08:39 04/18/18 08:39 04/18/18 08:39 04/18/18 08:39 General: Alert, Oriented x3, Cooperative HEENT: Atraumatic Extremities: No cyanosis, Capillary Refill Less than 3 Seconds, No Calf Tenderness - Negative Travon and Araya bilateral, Diminished Peripheral Pulses, Edema - Decreased left leg Skin: Ulcer/ Wound - No purulence, no erythema, streaking, odor, no infection. The peripheral skin is atrophic. The Adaptic as a wound veil and underlying advanced wound care products are incorporating well and remained intact without any local signs of infection. No necrosis or purulence noted. Wound Measurements and Assessment WC - Nurse 1 - General Ulcer Measurement Start: 04/18/18 08:39 Freq: Status: Active Protocol: Activity Type Activity Date Activity User E-Sign Co-Sign Detail Recorded Client Recorded Date Recorded By Document 04/18/18 08:39 RB [id number] 04/18/18 08:57 RB 04/18/18 08:39 Wound Center Nurse 1 [Ulcer Assessment] #6 L Christensen -Combined with other wound No -Current Size (cm) - Length 19.2 -Current Size (cm) - Width 6.3 -Current Size (cm) - Depth 0.3 -Total Square Cm 120.96 -Photo Taken No -Epithelialization Small 1-33% -Tunneling No -Undermining/Tunneling No -Circular Undermining No -Classification - Thickness Full Thickness without Exposed Support Structure -Exudate Amt Medium (34-66%) -Exudate Type Serosanguineous -Wound Margin Thickened & Rolled Under -Granulation Amt Medium (34-66%) -Granulation Quality [place] -Slough/Fibrin Yes -Necrosis Amt Small (1-33%) -Necrotic Tissue Type Adherent Slough -Structure Exposed N/A -Texture (Cyndy-wound Skin Appearance) Assessed -Moisture (Cyndy-wound Skin Appearance Assessed ) -Color (Cyndy-wound Skin Appearance) Assessed -Temperature (Cyndy-wound Skin No Abnormality Appearance) (Pt Warm) -Tenderness on Palpation (Cyndy-wound No Skin Appearance) -Ulcer Cleansing Rinsed/ Irrigated with Saline -Foul Odor after Cleansing No -Anesthetic Used 4% Lidocaine Solution #5 LLE Post -Combined with other wound No -Current Size (cm) - Length 5 -Current Size (cm) - Width 1.7 -Current Size (cm) - Depth 0.3 -Total Square Cm 8.5 -Photo Taken No -Tunneling No -Undermining/Tunneling No -Circular Undermining No -Classification - Thickness Full Thickness without Exposed Support Structure -Exudate Amt Small (1-33%) -Exudate Type Serosanguineous -Wound Margin Thickened & Rolled Under -Granulation Amt Large (67-100%) -Granulation Quality [place] -Slough/Fibrin Yes -Necrosis Amt Medium (34-66%) -Necrotic Tissue Type Adherent Slough -Structure Exposed N/A -Texture (Cyndy-wound Skin Appearance) Assessed -Moisture (Cyndy-wound Skin Appearance Assessed ) -Color (Cyndy-wound Skin Appearance) Assessed -Temperature ([place]yndy-wound Skin No Abnormality Appearance) (Pt Warm) -Tenderness on Palpation (Cyndy-wound No Skin Appearance) -Ulcer Cleansing Rinsed/ Irrigated with Saline -Foul Odor after Cleansing No -Anesthetic Used 4% Lidocaine Solution [Edema Assessment] -Lower Limb Edema Present Yes -Right Calf (cm) 35.5 -Right Ankle (cm) 25.2 -Left Calf (cm) 39.5 -Left Ankle (cm) 28.2 04/18/18 08:56 Wound Center by Lori Blanco sutured to wound periulcer let in place. Initialized on 04/18/18 08:56 - END OF NOTE WC - Nurse 2 - General Ulcer CM Notes Start: 04/18/18 08:39 Freq: Status: Active Protocol: Activity Type Activity Date Activity User E-Sign Co-Sign Detail Recorded Client Recorded Date Recorded By Document 04/18/18 09:04 [id number] 04/18/18 09:14 TM 04/18/18 09:04 Wound Center Nurse 2 [Procedure/Treatment] #6 L Christensen -Time 09:12 -Correct Patient Yes -Correct Side, Site, Position Yes -Correct Procedure Yes -Procedure Performed Yes -Post Debridement Size (cm) - Length 19.2 -Post Debridement Size (cm) - Width 6.3 -Post Debridement Size (cm) - Depth 0.3 -Total Square Cm 120.96 -Wound/Ulcer Outcome Not Healed -Ulcer Cleansing Rinsed/ Irrigated with Saline -Foul Odor after Cleansing No -Bioengineered Tissue No -Topical Lidocaine (%) 4 -Bleeding Controlled with NA -Other amniofil and epicord intact covered with adaptic JOSE placed over graft -Treatment Response Procedure Tolerated Well #5 LLE Post -Time 09:13 -Correct Patient Yes -Correct Side, Site, Position Yes -Correct Procedure Yes -Procedure Performed Yes -Post Debridement Size (cm) - Length 5.0 -Post Debridement Size (cm) - Width 1.7 -Post Debridement Size (cm) - Depth 0.3 -Total Square Cm 8.50 -Wound/Ulcer Outcome Not Healed -Ulcer Cleansing Rinsed/ Irrigated with Saline -Foul Odor after Cleansing No -Bioengineered Tissue No -Topical Lidocaine (%) 4 -Bleeding Controlled with NA -Other amniofil and epicord intact covered with adaptic JOSE placed over graft -Treatment Response Procedure Tolerated Well [See Physician Procedure note for Specifics] Pain Scale: 0-10 Numeric [Pain] -Is Patient Pain Free? Yes Musculoskeletal: No Tenderness to Palpation of Joints or Extremities, Muscle Wasting Neurological: - - Lack of epicritic sensation light touch noted Psych/Mental Status: Normal Affect, Appropriate Debridement Note Post-Debridement Measurements/Treatment WC - Nurse 2 - General Ulcer CM Notes Start: 04/18/18 08:39 Freq: Status: Active Protocol: Activity Type Activity Date Activity User E-Sign Co-Sign Detail Recorded Client Recorded Date Recorded By Document 04/18/18 09:04 [id number] 04/18/18 09:14 TM 04/18/18 09:04 Wound Center Nurse 2 #6 L Christensen -Time 09:12 -Correct Patient Yes -Correct Side, Site, Position Yes -Correct Procedure Yes -Procedure Performed Yes -Post Debridement Size (cm) - Length 19.2 -Post Debridement Size (cm) - Width 6.3 -Post Debridement Size (cm) - Depth 0.3 -Total Square Cm 120.96 -Wound/Ulcer Outcome Not Healed -Ulcer Cleansing Rinsed/ Irrigated with Saline -Foul Odor after Cleansing No -Bioengineered Tissue No -Topical Lidocaine (%) 4 -Bleeding Controlled with NA -Other amniofil and epicord intact covered with adaptic JOSE placed over graft -Treatment Response Procedure Tolerated Well #5 LLE Post -Time 09:13 -Correct Patient Yes -Correct Side, Site, Position Yes -Correct Procedure Yes -Procedure Performed Yes -Post Debridement Size (cm) - Length 5.0 -Post Debridement Size (cm) - Width 1.7 -Post Debridement Size (cm) - Depth 0.3 -Total Square Cm 8.50 -Wound/Ulcer Outcome Not Healed -Ulcer Cleansing Rinsed/ Irrigated with Saline -Foul Odor after Cleansing No -Bioengineered Tissue No -Topical Lidocaine (%) 4 -Bleeding Controlled with NA -Other amniofil and epicord intact covered with adaptic JOSE placed over graft -Treatment Response Procedure Tolerated Well Pain Scale: 0-10 Numeric Is Patient Pain Free? 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 Bilateral lower leg edema swelling increased in the left leg. Left lower leg ulcer-anterior (tendon exposed) and posterior (subcutaneous tissue exposed) now s/p advanced wound product application. 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 Atrial fib to onset. Peripheral vascular disease Plan: I reviewed and discussed his care plan. Debridement was not performed today because the wound care product is incorporating and remains stable at this time. The underlying sutured Adaptic wound veil was left in place. The jose wound VAC was reapplied today and he is advised he does intact clean and dry at the upcoming week. He was advised to elevate his limb at least 20 min/hour. I am suspecting he is perhaps getting some ischemic pain with prolonged elevation. To follow-up with vascular surgery as advised. He is reassured there are no signs of infection or blood clot today. He was advised to monitor this and he demonstrates understanding. To continue nutritional supplementation optimize healing. To continue to take nutritional supplementation to optimize healing. To return to clinic in 1 week or call sooner if he has any questions or concerns.
[2018-04-25 08:40] VITALS: BP 106/56; PULSE 114; RESP 18; TEMP 37.1; BMI 65.4
--- NOTE | 2018-04-25 16:10 | PN.PCM_ITS ---
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 Code(s): L97.923 - Non-pressure chronic ulcer of unspecified part of left lower leg with necrosis of muscle (2) Venous insufficiency Status: Chronic Code(s): I87.2 - Venous insufficiency (chronic) (peripheral) (3) Delayed wound healing Status: Chronic Code(s): T14.8XXD - Other injury of unspecified body region, subsequent encounter (4) Peripheral vascular disease of extremity with claudication Status: Chronic Code(s): I73.9 - Peripheral vascular disease, unspecified Type of Wound Date of Service: 04/28/18 Chief Complaint: Follow-up on left lower leg ulcers History of Wound: 77-year-old male who had surgery with Dr. 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 He follows up today for two left left lower extremity wounds. He has decreased swelling and inflammation to that site today. He denies fever, chill, nausea, vomiting , loss of appetite, odor, streaking to the leg. He did undergo surgical debridement of his necrotic tendon with application of epi cord and amniofill within the last 3 weeks and is doing well. He is left his dressing intact. Progress of Wound: Improved quality - Physical Exam Vital Signs Temp Pulse Resp BP 98.7 F 114 H 18 106/56 L 04/25/18 08:40 04/25/18 08:40 04/25/18 08:40 04/25/18 08:40 General: Alert, Oriented x3, Cooperative Extremities: No cyanosis, Capillary Refill Less than 3 Seconds, No Calf Tenderness - Negative Travon and Araya sign bilateral, Diminished Peripheral Pulses, Edema - Decreased left lower extremity Skin: Ulcer/ Wound - No purulence, no erythema, streaking, no border, no infection left lower extremity, - - Peripheral skin is hairless atrophic Wound Measurements and Assessment WC - Nurse 1 - General Ulcer Measurement Start: 04/18/18 08:39 Freq: Status: Active Protocol: Activity Type Activity Date Activity User E-Sign Co-Sign Detail Recorded Client Recorded Date Recorded By Document 04/25/18 08:40 DL [id number] 04/25/18 08:49 DL 04/25/18 08:40 Wound Center Nurse 1 [Ulcer Assessment] #5 LLE Post -Combined with other wound No [Edema Assessment] -Lower Limb Edema Present Yes -Left Calf (cm) 41.5 -Left Ankle (cm) 27.5 BETI - Nurse 2 - General Ulcer CM Notes Start: 04/18/18 08:39 Freq: Status: Active Protocol: Activity Type Activity Date Activity User E-Sign Co-Sign Detail Recorded Client Recorded Date Recorded By Document 04/25/18 09:02 [id number] 04/25/18 09:12 04/25/18 09:02 Wound Center Nurse 2 [Procedure/Treatment] #6 L Christensen -Time 09:02 -Correct Patient Yes -Correct Side, Site, Position Yes -Correct Procedure Yes -Procedure Performed Yes -Type of Procedure Debridement -Clinical Debridement Subcutaneous -Post Debridement Size (cm) - Length 20.0 -Post Debridement Size (cm) - Width 7.0 -Post Debridement Size (cm) - Depth 0.4 -Total Square Cm 140.00 -Wound/Ulcer Outcome Not Healed -Ulcer Cleansing Rinsed/ Irrigated with Saline -Foul Odor after Cleansing No -Bioengineered Tissue No -Topical Lidocaine (%) 4 -Bleeding Controlled with Pressure -Treatment Response Procedure Tolerated Well #5 LLE Post -Time 09:02 -Correct Patient Yes -Correct Side, Site, Position Yes -Correct Procedure Yes -Procedure Performed Yes -Type of Procedure Debridement -Clinical Debridement Subcutaneous -Post Debridement Size (cm) - Length 4.3 -Post Debridement Size (cm) - Width 4.3 -Post Debridement Size (cm) - Depth 0.2 -Total Square Cm 18.49 -Wound/Ulcer Outcome Not Healed -Ulcer Cleansing Rinsed/ Irrigated with Saline -Foul Odor after Cleansing No -Bioengineered Tissue No -Topical Lidocaine (%) 4 -Bleeding Controlled with Pressure -Treatment Response Procedure Tolerated Well [See Physician Procedure note for Specifics] Pain Scale: 0-10 Numeric [Pain] -Is Patient Pain Free? Yes Musculoskeletal: No Tenderness to Palpation of Joints or Extremities, Muscle Wasting Neurological: - - Lack of epicritic sensation light touch left lower extremity Psych/Mental Status: Normal Affect, Appropriate Debridement Note Post-Debridement Measurements/Treatment BETI - Nurse 2 - General Ulcer CM Notes Start: 04/18/18 08:39 Freq: Status: Active Protocol: Activity Type Activity Date Activity User E-Sign Co-Sign Detail Recorded Client Recorded Date Recorded By Document 04/18/18 09:04 [id number] 04/18/18 09:14 TM Document 04/25/18 09:02 [id number] 04/25/18 09:12 TM 04/18/18 04/25/18 09:04 09:02 Wound Center Nurse 2 #6 L Christensen -Time 09:12 09:02 -Correct Patient Yes Yes -Correct Side, Site, Position Yes Yes -Correct Procedure Yes Yes -Procedure Performed Yes Yes -Type of Procedure Debridement -Clinical Debridement Subcutaneous -Post Debridement Size (cm) - Length 19.2 20.0 -Post Debridement Size (cm) - Width 6.3 7.0 -Post Debridement Size (cm) - Depth 0.3 0.4 -Total Square Cm 120.96 140.00 -Wound/Ulcer Outcome Not Healed Not Healed -Ulcer Cleansing Rinsed/ Rinsed/ Irrigated with Irrigated with Saline Saline -Foul Odor after Cleansing No No -Bioengineered Tissue No No -Topical Lidocaine (%) 4 4 -Bleeding Controlled with NA Pressure -Other amniofil and epicord intact covered with adaptic JOSE placed over graft -Treatment Response Procedure Procedure Tolerated Well Tolerated Well #5 LLE Post -Time 09:13 09:02 -Correct Patient Yes Yes -Correct Side, Site, Position Yes Yes -Correct Procedure Yes Yes -Procedure Performed Yes Yes -Type of Procedure Debridement -Clinical Debridement Subcutaneous -Post Debridement Size (cm) - Length 5.0 4.3 -Post Debridement Size (cm) - Width 1.7 4.3 -Post Debridement Size (cm) - Depth 0.3 0.2 -Total Square Cm 8.50 18.49 -Wound/Ulcer Outcome Not Healed Not Healed -Ulcer Cleansing Rinsed/ Rinsed/ Irrigated with Irrigated with Saline Saline -Foul Odor after Cleansing No No -Bioengineered Tissue No No -Topical Lidocaine (%) 4 4 -Bleeding Controlled with NA Pressure -Other amniofil and epicord intact covered with adaptic JOSE placed over graft -Treatment Response Procedure Procedure Tolerated Well Tolerated Well Pain Scale: 0-10 Numeric Is Patient Pain Free? Yes Yes Wound debrided: posterior leg Laterality: Left Type of Debridement: Excisional debridement Anesthesia Used: 4% Lidocaine Solution Depth: in the subcutaneous layer Percentage of wound debrided: 100 Instrument Used: #15 blade Tissue Removed: fibrous, devitalized subcutaneous, biofilm, slough Severity: Fat Layer Exposed Amount of bleeding with debridement: Mild Bleeding Controlled with: Pressure Patient tolerated procedure well - Additional Wound Wound debrided: anterior leg Laterality: Right Type of Debridement: Excisional debridement Anesthesia Used: 4% Lidocaine Solution Depth: in the subcutaneous layer, to muscle Percentage of wound debrided: 90 - peripheral subcutaneous, 10 - tendon devitalized Instrument Used: #15 blade, Forceps Tissue Removed: fibrous, devitalized subcutaneous and tendon, biofilm, slough Severity: Necrosis of Muscle Amount of bleeding with debridement: Mild Bleeding Controlled with: Pressure Patient tolerated procedure: Patient tolerated procedure well Assessment/Plan Assessment: 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 Bilateral lower leg edema swelling increased in the left leg. Left lower leg ulcer-anterior (tendon exposed) and posterior (subcutaneous tissue exposed) now s/p advanced wound product application. 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 Atrial fib to onset. Peripheral vascular disease Plan: I reviewed and discussed his care plan. The underlying sutured Adaptic wound veil wasremoved today and debride was performed as noted in the clinical panelment to muscle and subcutaneous tissue. Sangeeta was applied to the adjacent ninth tendon area and some of the epi cord was left intact over the healthy centralize anterior tibialis tendon. The jose wound VAC was reapplied today and he is advised he does intact clean and dry at the upcoming week. He was advised to elevate his limb at least 20 min/hour. I am suspecting he is perhaps getting some ischemic pain with prolonged elevation. To follow-up with vascular surgery as advised. He is reassured there are no signs of infection or blood clot today. He was advised to monitor this and he demonstrates understanding. To continue nutritional supplementation optimize healing. To continue to take nutritional supplementation to optimize healing. To return to clinic in 1 week or call sooner if he has any questions or concerns.
[2018-05-02 09:54] VITALS: BP 103/62; PULSE 129; RESP 22; TEMP 36.6; BMI 65.4
--- NOTE | 2018-05-02 11:08 | PCM.WC.PN ---
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 He follows up today for two left left lower extremity wounds. He has decreased swelling and inflammation to that site today. He denies fever, chill, nausea, vomiting, loss of appetite, odor, streaking to the leg. He did undergo surgical debridement of his necrotic tendon with application of epi cord and amniofill within the last 3 weeks and is doing well. He is left his dressing intact. He reports increased drainage in the wound VAC is fairly saturated. Progress of Wound: Improved quality - Physical Exam Vital Signs Temp Pulse Resp BP 97.8 F 129 H 22 H 103/62 05/02/18 09:54 05/02/18 09:54 05/02/18 09:54 05/02/18 09:54 General: Alert, Oriented x3, Cooperative HEENT: Atraumatic Extremities: No cyanosis, Capillary Refill Less than 3 Seconds, No Calf Tenderness - Negative Travon and Araya sign left lower extremity, Diminished Peripheral Pulses, Edema - Continue to left lower extremity decreased compared to 1 month ago Skin: Ulcer/ Wound - No purulence, odor, erythema, streaking, acute infection. There is continued exposed bone that is healthy and white to the proximal medial aspect of the wound bed. There is continued exposed tendon with partial devitalization and liquid applied characteristic. The peripheral skin is atrophic. He has significant improvement in the quality of peripheral granulation tissue that is healthy bleeding and beefy red in color. The posterior leg wound has decreased in size and also is healthy and granular with sparse fibrous tissue Wound Measurements and Assessment WC - Nurse 1 - General Ulcer Measurement Start: 04/18/18 08:39 Freq: Status: Active Protocol: Activity Type Activity Date Activity User E-Sign Co-Sign Detail Recorded Client Recorded Date Recorded By Document 05/02/18 09:54 DL [id number] 05/02/18 10:06 DL 05/02/18 09:54 Wound Center Nurse 1 [Ulcer Assessment] #6 L Christensen -Current Size (cm) - Length 20.1 -Current Size (cm) - Width 7.5 -Current Size (cm) - Depth 0.5 -Total Square Cm 150.75 -Photo Taken No -Exudate Amt Large (67-100%) -Exudate Type Yellow/Green -Wound Margin Distinct, Outline Attached -Granulation Amt Medium (34-66%) -Granulation Quality Red -Necrosis Amt Medium (34-66%) -Necrotic Tissue Type Adherent Slough -Structure Exposed Bone -Texture (Cyndy-wound Skin Appearance) Excoriation Scarring -Moisture (Cyndy-wound Skin Appearance No Abnormality ) -Color (Cyndy-wound Skin Appearance) Erythema Hemosiderin Staining -Temperature (Cyndy-wound Skin No Abnormality Appearance) (Pt Warm) -Ulcer Cleansing Wound Cleanser -Foul Odor after Cleansing Yes -Anesthetic Used 4% Lidocaine Solution #5 LLE Post -Current Size (cm) - Length 7 -Current Size (cm) - Width 1.9 -Current Size (cm) - Depth 0.2 -Total Square Cm 13.3 -Photo Taken No -Exudate Amt Medium (34-66%) -Exudate Type Serosanguineous -Wound Margin Distinct, Outline Attached -Granulation Amt Medium (34-66%) -Granulation Quality Red -Necrosis Amt Medium (34-66%) -Necrotic Tissue Type Adherent Slough -Structure Exposed N/A -Texture (Cyndy-wound Skin Appearance) Scarring -Color (Cyndy-wound Skin Appearance) Erythema Hemosiderin Staining -Temperature (Cyndy-wound Skin No Abnormality Appearance) (Pt Warm) -Ulcer Cleansing Wound Cleanser -Foul Odor after Cleansing No -Anesthetic Used 4% Lidocaine Solution [Edema Assessment] -Left Calf (cm) 42 -Left Ankle (cm) 26.3 WC - Nurse 2 - General Ulcer CM Notes Start: 04/18/18 08:39 Freq: Status: Active Protocol: Activity Type Activity Date Activity User E-Sign Co-Sign Detail Recorded Client Recorded Date Recorded By Document 05/02/18 10:22 [id number] 05/02/18 10:56 05/02/18 10:22 Wound Center Nurse 2 [Procedure/Treatment] #6 L Christensen -Time 10:24 -Correct Patient Yes -Correct Side, Site, Position Yes -Correct Procedure Yes -Procedure Performed Yes -Type of Procedure Debridement -Clinical Debridement Muscle -Post Debridement Size (cm) - Length 20.2 -Post Debridement Size (cm) - Width 7.6 -Post Debridement Size (cm) - Depth 0.5 -Total Square Cm 153.52 -Wound/Ulcer Outcome Not Healed -Ulcer Cleansing Rinsed/ Irrigated with Saline -Foul Odor after Cleansing No -Bioengineered Tissue No -Topical Lidocaine (%) 4 -Bleeding Controlled with Pressure -Treatment Response Procedure Tolerated Well #5 LLE Post -Time 10:26 -Correct Patient Yes -Correct Side, Site, Position Yes -Correct Procedure Yes -Procedure Performed Yes -Type of Procedure Debridement -Clinical Debridement Subcutaneous -Post Debridement Size (cm) - Length 7.1 -Post Debridement Size (cm) - Width 2.0 -Post Debridement Size (cm) - Depth 0.2 -Total Square Cm 14.20 -Wound/Ulcer Outcome Not Healed -Ulcer Cleansing Rinsed/ Irrigated with Saline -Foul Odor after Cleansing No -Bioengineered Tissue No -Topical Lidocaine (%) 4 -Bleeding Controlled with Pressure -Treatment Response Procedure Tolerated Well [See Physician Procedure note for Specifics] Pain Scale: 0-10 Numeric [Pain] -Is Patient Pain Free? Yes Musculoskeletal: No Tenderness to Palpation of Joints or Extremities, Muscle Wasting, Tenderness - Minimal wound manipulation pain Neurological: - - Lack of epicritic sensation and altered light touch and debridement left lower extremity Psych/Mental Status: Normal Affect, Appropriate Debridement Note Post-Debridement Measurements/Treatment BETI - Nurse 2 - General Ulcer CM Notes Start: 04/18/18 08:39 Freq: Status: Active Protocol: Activity Type Activity Date Activity User E-Sign Co-Sign Detail Recorded Client Recorded Date Recorded By Document 04/18/18 09:04 [id number] 04/18/18 09:14 TM Document 04/25/18 09:02 [id number] 04/25/18 09:12 TM Document 05/02/18 10:22 [id number] 05/02/18 10:56 04/18/18 04/25/18 05/02/18 09:04 09:02 10:22 Wound Center Nurse 2 #6 L Christensen -Time 09:12 09:02 10:24 -Correct Patient Yes Yes Yes -Correct Side, Site, Position Yes Yes Yes -Correct Procedure Yes Yes Yes -Procedure Performed Yes Yes Yes -Type of Procedure Debridement Debridement -Clinical Debridement Muscle Muscle -Post Debridement Size (cm) - Length 19.2 20.0 20.2 -Post Debridement Size (cm) - Width 6.3 7.0 7.6 -Post Debridement Size (cm) - Depth 0.3 0.4 0.5 -Total Square Cm 120.96 140.00 153.52 -Wound/Ulcer Outcome Not Healed Not Healed Not Healed -Ulcer Cleansing Rinsed/ Rinsed/ Rinsed/ Irrigated with Irrigated with Irrigated with Saline Saline Saline -Foul Odor after Cleansing No No No -Bioengineered Tissue No No No -Topical Lidocaine (%) 4 4 4 -Bleeding Controlled with NA Pressure Pressure -Other amniofil and epicord intact covered with adaptic JOSE placed over graft -Treatment Response Procedure Procedure Procedure Tolerated Well Tolerated Well Tolerated Well #5 LLE Post -Time 09:13 09:02 10:26 -Correct Patient Yes Yes Yes -Correct Side, Site, Position Yes Yes Yes -Correct Procedure Yes Yes Yes -Procedure Performed Yes Yes Yes -Type of Procedure Debridement Debridement -Clinical Debridement Subcutaneous Subcutaneous -Post Debridement Size (cm) - Length 5.0 4.3 7.1 -Post Debridement Size (cm) - Width 1.7 4.3 2.0 -Post Debridement Size (cm) - Depth 0.3 0.2 0.2 -Total Square Cm 8.50 18.49 14.20 -Wound/Ulcer Outcome Not Healed Not Healed Not Healed -Ulcer Cleansing Rinsed/ Rinsed/ Rinsed/ Irrigated with Irrigated with Irrigated with Saline Saline Saline -Foul Odor after Cleansing No No No -Bioengineered Tissue No No No -Topical Lidocaine (%) 4 4 4 -Bleeding Controlled with NA Pressure Pressure -Other amniofil and epicord intact covered with adaptic JOSE placed over graft -Treatment Response Procedure Procedure Procedure Tolerated Well Tolerated Well Tolerated Well Pain Scale: 0-10 Numeric Is Patient Pain Free? Yes Yes Yes Wound debrided: posterior leg Laterality: Left Type of Debridement: Excisional debridement Anesthesia Used: 4% Lidocaine Solution Depth: in the subcutaneous layer Percentage of wound debrided: 100 Instrument Used: #15 blade Tissue Removed: fibrous, devitalized subcutaneous, biofilm, slough Severity: Fat Layer Exposed Amount of bleeding with debridement: Mild Bleeding Controlled with: Pressure Patient tolerated procedure well - Additional Wound Wound debrided: anterior leg Laterality: Left Type of Debridement: Excisional debridement Anesthesia Used: 4% Lidocaine Solution Depth: to muscle Percentage of wound debrided: 90 - subcutaneous, 10 - tendon Instrument Used: #15 blade Tissue Removed: fibrous, devitalized subcutaneous, biofilm, slough Severity: Necrosis of Muscle - tibialis anterior Amount of bleeding with debridement: Mild Bleeding Controlled with: Pressure Patient tolerated procedure: Patient tolerated procedure well Assessment/Plan Active Problems 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 Bilateral lower leg edema swelling increased in the left leg. Left lower leg ulcer-anterior (tendon exposed) and posterior (subcutaneous tissue exposed) now s/p advanced wound product application. 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 Atrial fib to onset. Peripheral vascular disease Plan: I reviewed and discussed his care plan. Subcutaneous and tendon debridement was performed as noted in the clinical panel and he tolerated this well. Sangeeta was applied to the adjacent exposed tendon area and some of the epi cord was left intact over the healthy centralize anterior tibialis tendon. The ojse wound VAC was reapplied today and he is advised he does intact clean and dry at the upcoming week. I recommend repeat debridement in the operating room with application of Osvaldo fell and epi cord; scheduling will be initiated. He is amenable to this plan and understands indications purpose and anticipated healing time and management that is anticipated to be staged. He was advised to elevate his limb at least 20 min/hour. I am suspecting he is perhaps getting some ischemic pain with prolonged elevation. To follow-up with vascular surgery as advised. He is reassured there are no signs of infection or blood clot today. He was advised to monitor this and he demonstrates understanding. To continue nutritional supplementation optimize healing. To continue to take nutritional supplementation to optimize healing. To continue with Tubigrip compression to decrease leg edema. To return to clinic in 1 week or call sooner if he has any questions or concerns.
[2018-05-04 15:29] VITALS: BP 96/55; PULSE 120; RESP 16; TEMP 37; BMI 65.4
[2018-05-09 10:38] VITALS: BP 98/56; PULSE 121; RESP 20; TEMP 37.7; BMI 65.4
[2018-05-09 12:59] LABS: Absolute Neutrophil Count 11.8 X10^3/uL (2.0-7.7); Basophil# 0.01 X10^3/uL; Basophil% 0.1 % (0-1); Eosinophil# 0.04 X10^3/uL; Eosinophils% 0.3 % (0-5); Hematocrit 30.4 % (40-54); Hemoglobin 9.4 g/dl (13.0-16.5); Lymphocyte % 8.4 % (19-41); Mean Corp Hgb Conc 30.9 g/gl (32-36); Mean Corpuscular Hgb 28.5 pg (27.0-32.0); Mean Corpuscular Volume 92.1 fL (80-94); Mean Platelet Vol. 9.8 fl (6.2-12.0); Monocyte# 1.17 X10^3/uL; Monocyte% 8.2 % (0-10); Neutrophil # 11.81 X10^3/uL (2.7-7.7); Neutrophil % 82.9 % (47-70); Platelet Count 457 K/mm3 (150-450); RBC Distribution Width SD 50.9 fl (35.1-43.9); White Blood Count 14.3 K/mm3 (4.4-11.0)
[2018-05-09 13:01] LABS: POSITIVE COUNT NO; POSITIVE DIFFERENTIAL NO; POSITIVE MORPHOLOGY NO
[2018-05-09 13:06] LABS: Erythrocyte Sedimentation Rate 95 mm/hr (0-20)
[2018-05-09 13:18] LABS: ALB/GLOB Ratio 0.6 RATIO (0.9-2.4); AST(SGOT) 15 U/L (15-37); Alanine Aminotransfer ALT/SGPT 17 U/L (16-61); Albumin, Serum 2.7 g/dL (3.2-5.0); Alkaline Phosphatase 79 U/L (45-117); Anion Gap 7 (5-15); BUN 18 mg/dL (7-18); BUN/Creat Ratio 15.1 RATIO (10-20); Calcium,Total 8.9 mg/dL (8.5-10.1); Chloride 105 mmol/L (98-107); Creatinine, Serum 1.19 mg/dL (0.70-1.30); EST Glomerular Filtration Rate 63 mL/min (>60); Est Glom Filt Rate - Afr Amer 76 mL/min (>60); Globulin 4.9 g/dL (2.2-4.2); Glucose 105 mg/dL (74-106); Potassium 3.6 mmol/L (3.5-5.1); Protein, Total 7.6 g/dL (6.4-8.2); Sodium Level 140 mmol/L (136-145)
--- NOTE | 2018-05-09 13:18 | PCM.WC.PN ---
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 lower leg with necrosis of muscle (3) Venous insufficiency Status: Chronic Current Visit: Yes Code(s): I87.2 - Venous insufficiency (chronic) (peripheral) (4) Delayed wound healing Status: Chronic Current Visit: Yes Code(s): T14.8XXD - Other injury of unspecified body region, subsequent encounter (5) Peripheral vascular disease of extremity with claudication Status: Chronic Current Visit: Yes Code(s): I73.9 - Peripheral vascular disease, unspecified Type of Wound Date of Service: 05/09/18 Chief Complaint: Follow-up on left lower leg ulcers History of Wound: 77-year-old male who had surgery with Dr. 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 He follows up today for two left left lower extremity wounds. He has decreased swelling and inflammation to that site today. He denies fever, chill, nausea, vomiting, loss of appetite, odor, streaking to the leg. He did undergo surgical debridement of his necrotic tendon with application of epi cord and amniofill. He is left his dressing intact. He reports increased drainage and odor noted. He denies fever, chill, nausea, vomiting, loss of appetite. He is with his today. His wound VAC became loose and he removed it at home. Progress of Wound: Worsening status - Physical Exam Vital Signs Temp Pulse Resp BP 99.8 F H 121 H 20 H 98/56 L 05/09/18 10:38 05/09/18 10:38 05/09/18 10:38 05/09/18 10:38 General: Alert, Oriented x3, Cooperative HEENT: Atraumatic Extremities: No cyanosis, Capillary Refill Less than 3 Seconds, No Calf Tenderness - Negative Travon and Araya last, Diminished Peripheral Pulses, Edema Skin: Ulcer/ Wound - There is an odor and the wound appears to be deteriorating with increased fibrous slough. There is continued exposed tibia bone that is nondiscolored. The tibialis anterior tendon is devitalized and is sloughing away. The peripheral skin is hairless and atrophic. The posterior leg wound is decreased in size and has peripheral epithelialization noted Wound Measurements and Assessment WC - Nurse 1 - General Ulcer Measurement Start: 04/18/18 08:39 Freq: Status: Active Protocol: Activity Type Activity Date Activity User E-Sign Co-Sign Detail Recorded Client Recorded Date Recorded By Document 05/09/18 10:38 [facility] [id number] 05/09/18 10:55 [facility] 05/09/18 10:38 Wound Center Nurse 1 [Ulcer Assessment] #6 L Christensen -Combined with other wound No -Current Size (cm) - Length 20.5 -Current Size (cm) - Width 8.7 -Current Size (cm) - Depth 0.4 -Total Square Cm 178.35 -Photo Taken No -Epithelialization None Present -Tunneling No -Undermining/Tunneling No -Circular Undermining No -Exudate Amt Large (67-100%) -Exudate Type Yellow/Green -Wound Margin Well Defined, Not Attached -Granulation Amt None Present (0 %) -Granulation Quality N/A -Slough/Fibrin Yes -Necrosis Amt Large (67-100%) -Necrotic Tissue Type Adherent Slough -Structure Exposed Tendon -Texture (Cyndy-wound Skin Appearance) Assessed Excoriation Localized Edema -Moisture (Cyndy-wound Skin Appearance Assessed ) Weeping -Color (Cyndy-wound Skin Appearance) Assessed -Temperature (Cyndy-wound Skin No Abnormality Appearance) (Pt Warm) -Tenderness on Palpation (Cyndy-wound Yes Skin Appearance) -Ulcer Cleansing Wound Cleanser -Foul Odor after Cleansing Yes, Due to Product Use -Anesthetic Used 4% Lidocaine Solution #5 LLE Post -Combined with other wound No -Current Size (cm) - Length 8 -Current Size (cm) - Width 5 -Current Size (cm) - Depth 0.3 -Total Square Cm 40 -Photo Taken No -Epithelialization Small 1-33% -Tunneling No -Undermining/Tunneling No -Circular Undermining No -Exudate Amt Medium (34-66%) -Exudate Type Serosanguineous -Wound Margin Flat & Intact -Granulation Amt Medium (34-66%) -Granulation Quality Red -Slough/Fibrin Yes -Necrosis Amt Small (1-33%) -Necrotic Tissue Type Adherent Slough -Structure Exposed N/A -Texture (Cyndy-wound Skin Appearance) Assessed Localized Edema -Moisture (Cyndy-wound Skin Appearance Assessed ) Dry/Scaly -Color (Cyndy-wound Skin Appearance) Assessed -Temperature (Cyndy-wound Skin No Abnormality Appearance) (Pt Warm) -Tenderness on Palpation (Cyndy-wound No Skin Appearance) -Ulcer Cleansing Wound Cleanser -Anesthetic Used 4% Lidocaine Solution [Edema Assessment] -Lower Limb Edema Present Yes -Right Calf (cm) 35 -Right Ankle (cm) 25.8 -Left Calf (cm) 42.9 -Left Ankle (cm) 28.3 WC - Nurse 2 - General Ulcer CM Notes Start: 04/18/18 08:39 Freq: Status: Active Protocol: Activity Type Activity Date Activity User E-Sign Co-Sign Detail Recorded Client Recorded Date Recorded By Document 05/09/18 11:21 [id number] 05/09/18 11:23 05/09/18 11:21 Wound Center Nurse 2 [Procedure/Treatment] #6 L Christensen -Time 11:22 -Correct Patient Yes -Correct Side, Site, Position Yes -Correct Procedure Yes -Procedure Performed Yes -Type of Procedure Debridement -Clinical Debridement Subcutaneous -Post Debridement Size (cm) - Length 20.6 -Post Debridement Size (cm) - Width 8.8 -Post Debridement Size (cm) - Depth 0.4 -Total Square Cm 181.28 -Wound/Ulcer Outcome Not Healed -Ulcer Cleansing Rinsed/ Irrigated with Saline -Foul Odor after Cleansing No -Bioengineered Tissue No -Topical Lidocaine (%) 4 -Bleeding Controlled with Pressure -Treatment Response Procedure Tolerated Well #5 LLE Post -Time 11:22 -Correct Patient Yes -Correct Side, Site, Position Yes -Correct Procedure Yes -Procedure Performed Yes -Type of Procedure Debridement -Clinical Debridement Subcutaneous -Post Debridement Size (cm) - Length 8.1 -Post Debridement Size (cm) - Width 5.1 -Post Debridement Size (cm) - Depth 0.3 -Total Square Cm 41.31 -Wound/Ulcer Outcome Not Healed -Ulcer Cleansing Rinsed/ Irrigated with Saline -Foul Odor after Cleansing No -Bioengineered Tissue No -Topical Lidocaine (%) 4 -Bleeding Controlled with Pressure -Treatment Response Procedure Tolerated Well [See Physician Procedure note for Specifics] Pain Scale: 0-10 Numeric [Pain] -Is Patient Pain Free? Yes Musculoskeletal: No Tenderness to Palpation of Joints or Extremities, Muscle Wasting, Tenderness - Mild tenderness with wound manipulation, - - Compartment soft Neurological: - - Lack of epicritic sensation light touch periwound left Psych/Mental Status: Normal Affect, Appropriate Debridement Note Post-Debridement Measurements/Treatment WC - Nurse 2 - General Ulcer CM Notes Start: 04/18/18 08:39 Freq: Status: Active Protocol: Activity Type Activity Date Activity User E-Sign Co-Sign Detail Recorded Client Recorded Date Recorded By Document 04/18/18 09:04 TM [id number] 04/18/18 09:14 TM Document 04/25/18 09:02 TM [id number] 04/25/18 09:12 TM Document 05/02/18 10:22 TM [id number] 05/02/18 10:56 TM Document 05/09/18 11:21 TM [id number] 05/09/18 11:23 TM 04/18/18 04/25/18 05/02/18 09:04 09:02 10:22 Wound Center Nurse 2 #6 L Christensen -Time 09:12 09:02 10:24 -Correct Patient Yes Yes Yes -Correct Side, Site, Position Yes Yes Yes -Correct Procedure Yes Yes Yes -Procedure Performed Yes Yes Yes -Type of Procedure Debridement Debridement -Clinical Debridement Muscle Muscle -Post Debridement Size (cm) - Length 19.2 20.0 20.2 -Post Debridement Size (cm) - Width 6.3 7.0 7.6 -Post Debridement Size (cm) - Depth 0.3 0.4 0.5 -Total Square Cm 120.96 140.00 153.52 -Wound/Ulcer Outcome Not Healed Not Healed Not Healed -Ulcer Cleansing Rinsed/ Rinsed/ Rinsed/ Irrigated with Irrigated with Irrigated with Saline Saline Saline -Foul Odor after Cleansing No No No -Bioengineered Tissue No No No -Topical Lidocaine (%) 4 4 4 -Bleeding Controlled with NA Pressure Pressure -Other amniofil and epicord intact covered with adaptic JOSE placed over graft -Treatment Response Procedure Procedure Procedure Tolerated Well Tolerated Well Tolerated Well #5 LLE Post -Time 09:13 09:02 10:26 -Correct Patient Yes Yes Yes -Correct Side, Site, Position Yes Yes Yes -Correct Procedure Yes Yes Yes -Procedure Performed Yes Yes Yes -Type of Procedure Debridement Debridement -Clinical Debridement Subcutaneous Subcutaneous -Post Debridement Size (cm) - Length 5.0 4.3 7.1 -Post Debridement Size (cm) - Width 1.7 4.3 2.0 -Post Debridement Size (cm) - Depth 0.3 0.2 0.2 -Total Square Cm 8.50 18.49 14.20 -Wound/Ulcer Outcome Not Healed Not Healed Not Healed -Ulcer Cleansing Rinsed/ Rinsed/ Rinsed/ Irrigated with Irrigated with Irrigated with Saline Saline Saline -Foul Odor after Cleansing No No No -Bioengineered Tissue No No No -Topical Lidocaine (%) 4 4 4 -Bleeding Controlled with NA Pressure Pressure -Other amniofil and epicord intact covered with adaptic JOSE placed over graft -Treatment Response Procedure Procedure Procedure Tolerated Well Tolerated Well Tolerated Well Pain Scale: 0-10 Numeric Is Patient Pain Free? Yes Yes Yes 05/09/18 11:21 Wound Center Nurse 2 #6 L Christensen -Time 11:22 -Correct Patient Yes -Correct Side, Site, Position Yes -Correct Procedure Yes -Procedure Performed Yes -Type of Procedure Debridement -Clinical Debridement Subcutaneous -Post Debridement Size (cm) - Length 20.6 -Post Debridement Size (cm) - Width 8.8 -Post Debridement Size (cm) - Depth 0.4 -Total Square Cm 181.28 -Wound/Ulcer Outcome Not Healed -Ulcer Cleansing Rinsed/ Irrigated with Saline -Foul Odor after Cleansing No -Bioengineered Tissue No -Topical Lidocaine (%) 4 -Bleeding Controlled with Pressure -Other -Treatment Response Procedure Tolerated Well #5 LLE Post -Time 11:22 -Correct Patient Yes -Correct Side, Site, Position Yes -Correct Procedure Yes -Procedure Performed Yes -Type of Procedure Debridement -Clinical Debridement Subcutaneous -Post Debridement Size (cm) - Length 8.1 -Post Debridement Size (cm) - Width 5.1 -Post Debridement Size (cm) - Depth 0.3 -Total Square Cm 41.31 -Wound/Ulcer Outcome Not Healed -Ulcer Cleansing Rinsed/ Irrigated with Saline -Foul Odor after Cleansing No -Bioengineered Tissue No -Topical Lidocaine (%) 4 -Bleeding Controlled with Pressure -Other -Treatment Response Procedure Tolerated Well Pain Scale: 0-10 Numeric Is Patient Pain Free? Yes Wound debrided: leg anterior Laterality: Left Type of Debridement: Excisional debridement Anesthesia Used: 4% Lidocaine Solution Depth: to muscle Percentage of wound debrided: - - 5 % tendon; 70% subcutaneous Instrument Used: #15 blade Tissue Removed: fibrous, devitalized subcutaneous+tendon, biofilm, slough Severity: Necrosis of Muscle Amount of bleeding with debridement: Mild Bleeding Controlled with: Pressure Patient tolerated procedure well - Additional Wound Wound debrided: leg posterior Laterality: Left Type of Debridement: Excisional debridement Anesthesia Used: 4% Lidocaine Solution Depth: in the subcutaneous layer Percentage of wound debrided: 100 Instrument Used: #15 blade Tissue Removed: fibrous, devitalized subcutaneous, biofilm, slough Severity: Fat Layer Exposed Amount of bleeding with debridement: Mild Bleeding Controlled with: Pressure Patient tolerated procedure: Patient tolerated procedure well Assessment/Plan Active Problems 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 Bilateral lower leg edema swelling increased in the left leg. Left lower leg ulcer-anterior (tendon exposed) and posterior (subcutaneous tissue exposed) now s/p advanced wound product application. 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 Atrial fib to onset. Peripheral vascular disease Plan: I reviewed and discussed his care plan. Subcutaneous and tendon debridement was performed as noted in the clinical panel and he tolerated this well. To wash leg daily with Hibiclens antimicrobial soap. And to apply Betadine gauze to the wound to reduce the bioburden and infection. To discontinue wound VAC. After the wound was debrided, a wound culture was obtained. Infectious disease reconsultation will be initiated for next week. She was advised to monitor for local and systemic signs of illness and to report to the emergency room if these emerge. A prescription for Augmentin was provided and he was advised on safe and proper use. I recommend repeat debridement in the operating room with application of Amiofill and epi cord early May if his local deterioration improves. Consents will need to be signed. He is amenable to this plan and understands indications purpose and anticipated healing time and management that is anticipated to be staged. He was advised to elevate his limb at least 20 min/hour. to follow-up with vascular surgery as advised. He is reassured there are no signs of infection or blood clot today. He was advised to monitor this and he demonstrates understanding. To continue nutritional supplementation optimize healing. To continue with Tubigrip compression to decrease leg edema. To return to clinic in 1 week or call sooner if he has any questions or concerns.
--- NOTE | 2018-05-09 13:24 | PN.PCM_ITS ---
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 lower leg with necrosis of muscle (3) Venous insufficiency Status: Chronic Current Visit: Yes Code(s): I87.2 - Venous insufficiency ( chronic) (peripheral) (4) Delayed wound healing Status: Chronic Current Visit: Yes Code(s): T14.8XXD - Other injury of unspecified body region, subsequent encounter (5) Peripheral vascular disease of extremity with claudication Status: Chronic Current Visit: Yes Code(s): I73.9 - Peripheral vascular disease, unspecified Type of Wound Date of Service: 05/09/18 Chief Complaint: Follow-up on left lower leg ulcers History of Wound: 77-year-old male who had surgery with Dr. 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 He follows up today for two left left lower extremity wounds. He has decreased swelling and inflammation to that site today. He denies fever, chill, nausea, vomiting , loss of appetite, odor, streaking to the leg. He did undergo surgical debridement of his necrotic tendon with application of epi cord and amniofill. He is left his dressing intact. He reports increased drainage and odor noted. He denies fever, chill, nausea, vomiting, loss of appetite. He is with his today. His wound VAC became loose and he removed it at home. Progress of Wound: Worsening status - Physical Exam Vital Signs Temp Pulse Resp BP 99.8 F H 121 H 20 H 98/56 L 05/09/18 10:38 05/09/18 10:38 05/09/18 10:38 05/09/18 10:38 General: Alert, Oriented x3, Cooperative HEENT: Atraumatic Extremities: No cyanosis, Capillary Refill Less than 3 Seconds, No Calf Tenderness - Negative Travon and Araya last, Diminished Peripheral Pulses, Edema Skin: Ulcer/ Wound - There is an odor and the wound appears to be deteriorating with increased fibrous slough. There is continued exposed tibia bone that is nondiscolored. The tibialis anterior tendon is devitalized and is sloughing away. The peripheral skin is hairless and atrophic. The posterior leg wound is decreased in size and has peripheral epithelialization noted Wound Measurements and Assessment WC - Nurse 1 - General Ulcer Measurement Start: 04/18/18 08:39 Freq: Status: Active Protocol: Activity Type Activity Date Activity User E-Sign Co-Sign Detail Recorded Client Recorded Date Recorded By Document 05/09/18 10:38 [facility] [id number] 05/09/18 10:55 [facility] 05/09/18 10:38 Wound Center Nurse 1 [Ulcer Assessment] #6 L Christensen -Combined with other wound No -Current Size (cm) - Length 20.5 -Current Size (cm) - Width 8.7 -Current Size (cm) - Depth 0.4 -Total Square Cm 178.35 -Photo Taken No -Epithelialization None Present -Tunneling No -Undermining/Tunneling No -Circular Undermining No -Exudate Amt Large (67-100%) -Exudate Type Yellow/Green -Wound Margin Well Defined, Not Attached -Granulation Amt None Present (0 %) -Granulation Quality N/A -Slough/Fibrin Yes -Necrosis Amt Large (67-100%) -Necrotic Tissue Type Adherent Slough -Structure Exposed Tendon -Texture (Cyndy-wound Skin Appearance) Assessed Excoriation Localized Edema -Moisture (Cyndy-wound Skin Appearance Assessed ) Weeping -Color (Cyndy-wound Skin Appearance) Assessed -Temperature (Cyndy-wound Skin No Abnormality Appearance) (Pt Warm) -Tenderness on Palpation (Cyndy-wound Yes Skin Appearance) -Ulcer Cleansing Wound Cleanser -Foul Odor after Cleansing Yes, Due to Product Use -Anesthetic Used 4% Lidocaine Solution #5 LLE Post -Combined with other wound No -Current Size (cm) - Length 8 -Current Size (cm) - Width 5 -Current Size (cm) - Depth 0.3 -Total Square Cm 40 -Photo Taken No -Epithelialization Small 1-33% -Tunneling No -Undermining/Tunneling No -Circular Undermining No -Exudate Amt Medium (34-66%) -Exudate Type Serosanguineous -Wound Margin Flat & Intact -Granulation Amt Medium (34-66%) -Granulation Quality Red -Slough/Fibrin Yes -Necrosis Amt Small (1-33%) -Necrotic Tissue Type Adherent Slough -Structure Exposed N/A -Texture (Cyndy-wound Skin Appearance) Assessed Localized Edema -Moisture (Cyndy-wound Skin Appearance Assessed ) Dry/Scaly -Color (Cyndy-wound Skin Appearance) Assessed -Temperature (Cyndy-wound Skin No Abnormality Appearance) (Pt Warm) -Tenderness on Palpation (Cyndy-wound No Skin Appearance) -Ulcer Cleansing Wound Cleanser -Anesthetic Used 4% Lidocaine Solution [Edema Assessment] -Lower Limb Edema Present Yes -Right Calf (cm) 35 -Right Ankle (cm) 25.8 -Left Calf (cm) 42.9 -Left Ankle (cm) 28.3 WC - Nurse 2 - General Ulcer CM Notes Start: 04/18/18 08:39 Freq: Status: Active Protocol: Activity Type Activity Date Activity User E-Sign Co-Sign Detail Recorded Client Recorded Date Recorded By Document 05/09/18 11:21 [id number] 05/09/18 11:23 05/09/18 11:21 Wound Center Nurse 2 [Procedure/Treatment] #6 L Christensen -Time 11:22 -Correct Patient Yes -Correct Side, Site, Position Yes -Correct Procedure Yes -Procedure Performed Yes -Type of Procedure Debridement -Clinical Debridement Subcutaneous -Post Debridement Size (cm) - Length 20.6 -Post Debridement Size (cm) - Width 8.8 -Post Debridement Size (cm) - Depth 0.4 -Total Square Cm 181.28 -Wound/Ulcer Outcome Not Healed -Ulcer Cleansing Rinsed/ Irrigated with Saline -Foul Odor after Cleansing No -Bioengineered Tissue No -Topical Lidocaine (%) 4 -Bleeding Controlled with Pressure -Treatment Response Procedure Tolerated Well #5 LLE Post -Time 11:22 -Correct Patient Yes -Correct Side, Site, Position Yes -Correct Procedure Yes -Procedure Performed Yes -Type of Procedure Debridement -Clinical Debridement Subcutaneous -Post Debridement Size (cm) - Length 8.1 -Post Debridement Size (cm) - Width 5.1 -Post Debridement Size (cm) - Depth 0.3 -Total Square Cm 41.31 -Wound/Ulcer Outcome Not Healed -Ulcer Cleansing Rinsed/ Irrigated with Saline -Foul Odor after Cleansing No -Bioengineered Tissue No -Topical Lidocaine (%) 4 -Bleeding Controlled with Pressure -Treatment Response Procedure Tolerated Well [See Physician Procedure note for Specifics] Pain Scale: 0-10 Numeric [Pain] -Is Patient Pain Free? Yes Musculoskeletal: No Tenderness to Palpation of Joints or Extremities, Muscle Wasting, Tenderness - Mild tenderness with wound manipulation, - - Compartment soft Neurological: - - Lack of epicritic sensation light touch periwound left Psych/Mental Status: Normal Affect, Appropriate Debridement Note Post-Debridement Measurements/Treatment WC - Nurse 2 - General Ulcer CM Notes Start: 04/18/18 08:39 Freq: Status: Active Protocol: Activity Type Activity Date Activity User E-Sign Co-Sign Detail Recorded Client Recorded Date Recorded By Document 04/18/18 09:04 TM [id number] 04/18/18 09:14 TM Document 04/25/18 09:02 TM [id number] 04/25/18 09:12 TM Document 05/02/18 10:22 TM [id number] 05/02/18 10:56 TM Document 05/09/18 11:21 TM [id number] 05/09/18 11:23 TM 04/18/18 04/25/18 05/02/18 09:04 09:02 10:22 Wound Center Nurse 2 #6 L Christensen -Time 09:12 09:02 10:24 -Correct Patient Yes Yes Yes -Correct Side, Site, Position Yes Yes Yes -Correct Procedure Yes Yes Yes -Procedure Performed Yes Yes Yes -Type of Procedure Debridement Debridement -Clinical Debridement Muscle Muscle -Post Debridement Size (cm) - Length 19.2 20.0 20.2 -Post Debridement Size (cm) - Width 6.3 7.0 7.6 -Post Debridement Size (cm) - Depth 0.3 0.4 0.5 -Total Square Cm 120.96 140.00 153.52 -Wound/Ulcer Outcome Not Healed Not Healed Not Healed -Ulcer Cleansing Rinsed/ Rinsed/ Rinsed/ Irrigated with Irrigated with Irrigated with Saline Saline Saline -Foul Odor after Cleansing No No No -Bioengineered Tissue No No No -Topical Lidocaine (%) 4 4 4 -Bleeding Controlled with NA Pressure Pressure -Other amniofil and epicord intact covered with adaptic JOSE placed over graft -Treatment Response Procedure Procedure Procedure Tolerated Well Tolerated Well Tolerated Well #5 LLE Post -Time 09:13 09:02 10:26 -Correct Patient Yes Yes Yes -Correct Side, Site, Position Yes Yes Yes -Correct Procedure Yes Yes Yes -Procedure Performed Yes Yes Yes -Type of Procedure Debridement Debridement -Clinical Debridement Subcutaneous Subcutaneous -Post Debridement Size (cm) - Length 5.0 4.3 7.1 -Post Debridement Size (cm) - Width 1.7 4.3 2.0 -Post Debridement Size (cm) - Depth 0.3 0.2 0.2 -Total Square Cm 8.50 18.49 14.20 -Wound/Ulcer Outcome Not Healed Not Healed Not Healed -Ulcer Cleansing Rinsed/ Rinsed/ Rinsed/ Irrigated with Irrigated with Irrigated with Saline Saline Saline -Foul Odor after Cleansing No No No -Bioengineered Tissue No No No -Topical Lidocaine (%) 4 4 4 -Bleeding Controlled with NA Pressure Pressure -Other amniofil and epicord intact covered with adaptic JOSE placed over graft -Treatment Response Procedure Procedure Procedure Tolerated Well Tolerated Well Tolerated Well Pain Scale: 0-10 Numeric Is Patient Pain Free? Yes Yes Yes 05/09/18 11:21 Wound Center Nurse 2 #6 L Christensen -Time 11:22 -Correct Patient Yes -Correct Side, Site, Position Yes -Correct Procedure Yes -Procedure Performed Yes -Type of Procedure Debridement -Clinical Debridement Subcutaneous -Post Debridement Size (cm) - Length 20.6 -Post Debridement Size (cm) - Width 8.8 -Post Debridement Size (cm) - Depth 0.4 -Total Square Cm 181.28 -Wound/Ulcer Outcome Not Healed -Ulcer Cleansing Rinsed/ Irrigated with Saline -Foul Odor after Cleansing No -Bioengineered Tissue No -Topical Lidocaine (%) 4 -Bleeding Controlled with Pressure -Other -Treatment Response Procedure Tolerated Well #5 LLE Post -Time 11:22 -Correct Patient Yes -Correct Side, Site, Position Yes -Correct Procedure Yes -Procedure Performed Yes -Type of Procedure Debridement -Clinical Debridement Subcutaneous -Post Debridement Size (cm) - Length 8.1 -Post Debridement Size (cm) - Width 5.1 -Post Debridement Size (cm) - Depth 0.3 -Total Square Cm 41.31 -Wound/Ulcer Outcome Not Healed -Ulcer Cleansing Rinsed/ Irrigated with Saline -Foul Odor after Cleansing No -Bioengineered Tissue No -Topical Lidocaine (%) 4 -Bleeding Controlled with Pressure -Other -Treatment Response Procedure Tolerated Well Pain Scale: 0-10 Numeric Is Patient Pain Free? Yes Wound debrided: leg anterior Laterality: Left Type of Debridement: Excisional debridement Anesthesia Used: 4% Lidocaine Solution Depth: to muscle Percentage of wound debrided: - - 5 % tendon; 70% subcutaneous Instrument Used: #15 blade Tissue Removed: fibrous, devitalized subcutaneous+tendon, biofilm, slough Severity: Necrosis of Muscle Amount of bleeding with debridement: Mild Bleeding Controlled with: Pressure Patient tolerated procedure well - Additional Wound Wound debrided: leg posterior Laterality: Left Type of Debridement: Excisional debridement Anesthesia Used: 4% Lidocaine Solution Depth: in the subcutaneous layer Percentage of wound debrided: 100 Instrument Used: #15 blade Tissue Removed: fibrous, devitalized subcutaneous, biofilm, slough Severity: Fat Layer Exposed Amount of bleeding with debridement: Mild Bleeding Controlled with: Pressure Patient tolerated procedure: Patient tolerated procedure well Assessment/Plan Active Problems 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 Bilateral lower leg edema swelling increased in the left leg. Left lower leg ulcer-anterior (tendon exposed) and posterior (subcutaneous tissue exposed) now s/p advanced wound product application. 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 Atrial fib to onset. Peripheral vascular disease Plan: I reviewed and discussed his care plan. Subcutaneous and tendon debridement was performed as noted in the clinical panel and he tolerated this well. To wash leg daily with Hibiclens antimicrobial soap. And to apply Betadine gauze to the wound to reduce the bioburden and infection. To discontinue wound VAC. After the wound was debrided, a wound culture was obtained. Infectious disease reconsultation will be initiated for next week. She was advised to monitor for local and systemic signs of illness and to report to the emergency room if these emerge. A prescription for Augmentin was provided and he was advised on safe and proper use. I recommend repeat debridement in the operating room with application of Amiofill and epi cord early May if his local deterioration improves. Consents will need to be signed. He is amenable to this plan and understands indications purpose and anticipated healing time and management that is anticipated to be staged. He was advised to elevate his limb at least 20 min/hour. to follow-up with vascular surgery as advised. He is reassured there are no signs of infection or blood clot today. He was advised to monitor this and he demonstrates understanding. To continue nutritional supplementation optimize healing. To continue with Tubigrip compression to decrease leg edema. To return to clinic in 1 week or call sooner if he has any questions or concerns.
[2018-05-09 16:28] LABS: Probe Check PASS; Staph aureus DNA By PCR POSITIVE (Negative)
[2018-05-09 16:30] LABS: M R Staph aureus DNA By PCR POSITIVE (Negative)
[2018-05-16 13:13] VITALS: BP 118/60; PULSE 113; RESP 18; TEMP 36.4; BMI 65.4
--- NOTE | 2018-05-16 14:54 | PCM.WC.PN ---
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 Code(s): L97.923 - Non-pressure chronic ulcer of unspecified part of left lower leg with necrosis of muscle (3) Venous insufficiency Status: Chronic Code(s): I87.2 - Venous insufficiency (chronic) (peripheral) (4) Delayed wound healing Status: Chronic Code(s): T14.8XXD - Other injury of unspecified body region, subsequent encounter (5) Peripheral vascular disease of extremity with claudication Status: Chronic Code(s): I73.9 - Peripheral vascular disease, unspecified Type of Wound Date of Service: 05/19/18 Chief Complaint: Follow-up on left lower leg ulcers History of Wound: 77-year-old male who had surgery with Dr. 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 He follows up today for two left left lower extremity wounds. He has decreased swelling and inflammation to that site today. He denies fever, chill, nausea, vomiting, loss of appetite, odor, streaking to the leg. He did undergo surgical debridement of his necrotic tendon with application of epi cord and amniofill. He is left his dressing intact. He reports increased drainage and odor noted. He denies fever, chill, nausea, vomiting, loss of appetite. He was started on antibiotics and was seen by infectious disease physician, Dr. Ulrich, this afternoon. He is also ready to return to the operating room for additional debridement application of advanced wound care product, Amniofill and epi cord. He has discomfort behind his knee and back of the leg in this does not seem to warm up. He has swelling. She reports previous knee ligamentous damage is not sure if it is related to that. He has continued draining and weeping from the wound. Progress of Wound: Stabilizing - Physical Exam Vital Signs Temp Pulse Resp BP 97.5 F L 113 H 18 118/60 05/16/18 13:13 05/16/18 13:13 05/16/18 13:13 05/16/18 13:13 General: Alert, Oriented x3, Cooperative Extremities: No cyanosis, Capillary Refill Less than 3 Seconds - All digits left foot, No Calf Tenderness - Negative Travon sign. Positive Araya sign left, Diminished Peripheral Pulses, Edema - Left lower extremity Skin: Ulcer/ Wound - Posterior left leg wound has no erythema streaking necrosis deep tissue exposure or infection; peripheral epithelialization continues with a granular fibrous base. The left anterior wound has increased bone exposure and tendon devitalization. The remainder of the wound is granular and fibrous. There is decreased peripheral erythema and edema and odor noted since he has been on antibiotics and performs daily antimicrobial washes as advised., - - His peripheral skin is atrophic and hairless Wound Measurements and Assessment WC - Nurse 1 - General Ulcer Measurement Start: 04/18/18 08:39 Freq: Status: Active Protocol: Activity Type Activity Date Activity User E-Sign Co-Sign Detail Recorded Client Recorded Date Recorded By Document 05/16/18 13:13 JF [id number] 05/16/18 13:23 MAGALYS 05/16/18 13:13 Wound Center Nurse 1 [Ulcer Assessment] #6 L Christensen -Current Size (cm) - Length 21.7 -Current Size (cm) - Width 10.6 -Current Size (cm) - Depth 0.4 -Total Square Cm 230.02 -Photo Taken No -Exudate Amt Large (67-100%) -Exudate Type Serosanguineous -Wound Margin Distinct, Outline Attached -Granulation Amt Small (1-33%) -Granulation Quality [place] -Slough/Fibrin Yes -Necrosis Amt Large (67-100%) -Necrotic Tissue Type Adherent Slough -Structure Exposed Bone -Texture (Cyndy-wound Skin Appearance) Excoriation Localized Edema Scarring -Moisture (Cyndy-wound Skin Appearance Dry/Scaly ) -Color (Cyndy-wound Skin Appearance) Erythema Hemosiderin Staining -Temperature (Cyndy-wound Skin No Abnormality Appearance) (Pt Warm) -Tenderness on Palpation (Cyndy-wound Yes Skin Appearance) -Ulcer Cleansing Wound Cleanser -Foul Odor after Cleansing No -Anesthetic Used 4% Lidocaine Solution #5 LLE Post -Current Size (cm) - Length 7.4 -Current Size (cm) - Width 5.3 -Current Size (cm) - Depth 0.2 -Total Square Cm 39.22 -Photo Taken No -Exudate Amt Medium (34-66%) -Exudate Type Serosanguineous -Wound Margin Distinct, Outline Attached -Granulation Amt Medium (34-66%) -Granulation Quality [place] -Necrosis Amt Medium (34-66%) -Necrotic Tissue Type Adherent Slough -Structure Exposed N/A -Texture (Cyndy-wound Skin Appearance) Scarring -Moisture (Cyndy-wound Skin Appearance No Abnormality ) -Color (Cyndy-wound Skin Appearance) Hemosiderin Staining -Temperature (Cyndy-wound Skin No Abnormality Appearance) (Pt Warm) -Tenderness on Palpation (Cyndy-wound Yes Skin Appearance) -Ulcer Cleansing Wound Cleanser -Foul Odor after Cleansing No -Anesthetic Used 4% Lidocaine Solution [Edema Assessment] -Right Calf (cm) 34.5 -Right Ankle (cm) 24.9 -Left Calf (cm) 42.4 -Left Ankle (cm) 27.7 WC - Nurse 2 - General Ulcer CM Notes Start: 04/18/18 08:39 Freq: Status: Active Protocol: Activity Type Activity Date Activity User E-Sign Co-Sign Detail Recorded Client Recorded Date Recorded By Document 05/16/18 13:59 [id number] 05/16/18 14:05 05/16/18 13:59 Wound Center Nurse 2 [Procedure/Treatment] #6 L Christensen -Time 14:03 -Correct Patient Yes -Correct Side, Site, Position Yes -Correct Procedure Yes -Procedure Performed Yes -Type of Procedure Debridement -Clinical Debridement Muscle -Post Debridement Size (cm) - Length 21.8 -Post Debridement Size (cm) - Width 10.6 -Post Debridement Size (cm) - Depth 0.4 -Total Square Cm 231.08 -Wound/Ulcer Outcome Not Healed -Ulcer Cleansing Rinsed/ Irrigated with Saline -Foul Odor after Cleansing No -Bioengineered Tissue No -Bleeding Controlled with Pressure -Treatment Response Procedure Tolerated Well #5 LLE Post -Time 14:04 -Correct Patient Yes -Correct Side, Site, Position Yes -Correct Procedure Yes -Procedure Performed Yes -Type of Procedure Debridement -Clinical Debridement Subcutaneous -Post Debridement Size (cm) - Length 7.5 -Post Debridement Size (cm) - Width 5.3 -Post Debridement Size (cm) - Depth 0.2 -Total Square Cm 39.75 -Wound/Ulcer Outcome Not Healed -Ulcer Cleansing Rinsed/ Irrigated with Saline -Foul Odor after Cleansing No -Bioengineered Tissue No -Bleeding Controlled with Pressure -Treatment Response Procedure Tolerated Well [See Physician Procedure note for Specifics] Pain Scale: 0-10 Numeric [Pain] -Is Patient Pain Free? Yes Musculoskeletal: No Tenderness to Palpation of Joints or Extremities, Muscle Wasting, - - No bogginess on palpation. Neurological: - - Lack of normal epicritic sensation light touch left lower extremity and minimal discomfort with wound manipulation debridement Psych/Mental Status: Normal Affect, Appropriate Debridement Note Post-Debridement Measurements/Treatment WC - Nurse 2 - General Ulcer CM Notes Start: 04/18/18 08:39 Freq: Status: Active Protocol: Activity Type Activity Date Activity User E-Sign Co-Sign Detail Recorded Client Recorded Date Recorded By Document 04/18/18 09:04 TM [id number] 04/18/18 09:14 TM Document 04/25/18 09:02 TM [id number] 04/25/18 09:12 TM Document 05/02/18 10:22 [id number] 05/02/18 10:56 TM Document 05/09/18 11:21 [id number] 05/09/18 11:23 TM Document 05/16/18 13:59 [id number] 05/16/18 14:05 04/18/18 04/25/18 05/02/18 09:04 09:02 10:22 Wound Center Nurse 2 #6 L Christensen -Time 09:12 09:02 10:24 -Correct Patient Yes Yes Yes -Correct Side, Site, Position Yes Yes Yes -Correct Procedure Yes Yes Yes -Procedure Performed Yes Yes Yes -Type of Procedure Debridement Debridement -Clinical Debridement Muscle Muscle -Post Debridement Size (cm) - Length 19.2 20.0 20.2 -Post Debridement Size (cm) - Width 6.3 7.0 7.6 -Post Debridement Size (cm) - Depth 0.3 0.4 0.5 -Total Square Cm 120.96 140.00 153.52 -Wound/Ulcer Outcome Not Healed Not Healed Not Healed -Ulcer Cleansing Rinsed/ Rinsed/ Rinsed/ Irrigated with Irrigated with Irrigated with Saline Saline Saline -Foul Odor after Cleansing No No No -Bioengineered Tissue No No No -Topical Lidocaine (%) 4 4 4 -Bleeding Controlled with NA Pressure Pressure -Other amniofil and epicord intact covered with adaptic JOSE placed over graft -Treatment Response Procedure Procedure Procedure Tolerated Well Tolerated Well Tolerated Well #5 LLE Post -Time 09:13 09:02 10:26 -Correct Patient Yes Yes Yes -Correct Side, Site, Position Yes Yes Yes -Correct Procedure Yes Yes Yes -Procedure Performed Yes Yes Yes -Type of Procedure Debridement Debridement -Clinical Debridement Subcutaneous Subcutaneous -Post Debridement Size (cm) - Length 5.0 4.3 7.1 -Post Debridement Size (cm) - Width 1.7 4.3 2.0 -Post Debridement Size (cm) - Depth 0.3 0.2 0.2 -Total Square Cm 8.50 18.49 14.20 -Wound/Ulcer Outcome Not Healed Not Healed Not Healed -Ulcer Cleansing Rinsed/ Rinsed/ Rinsed/ Irrigated with Irrigated with Irrigated with Saline Saline Saline -Foul Odor after Cleansing No No No -Bioengineered Tissue No No No -Topical Lidocaine (%) 4 4 4 -Bleeding Controlled with NA Pressure Pressure -Other amniofil and epicord intact covered with adaptic JOSE placed over graft -Treatment Response Procedure Procedure Procedure Tolerated Well Tolerated Well Tolerated Well Pain Scale: 0-10 Numeric Is Patient Pain Free? Yes Yes Yes 05/09/18 05/16/18 11:21 13:59 Wound Center Nurse 2 #6 L Christensen -Time 11: 14:03 -Correct Patient Yes Yes -Correct Side, Site, Position Yes Yes -Correct Procedure Yes Yes -Procedure Performed Yes Yes -Type of Procedure Debridement Debridement -Clinical Debridement Subcutaneous Muscle -Post Debridement Size (cm) - Length 20.6 21.8 -Post Debridement Size (cm) - Width 8.8 10.6 -Post Debridement Size (cm) - Depth 0.4 0.4 -Total Square Cm 181.28 231.08 -Wound/Ulcer Outcome Not Healed Not Healed -Ulcer Cleansing Rinsed/ Rinsed/ Irrigated with Irrigated with Saline Saline -Foul Odor after Cleansing No No -Bioengineered Tissue No No -Topical Lidocaine (%) 4 -Bleeding Controlled with Pressure Pressure -Other -Treatment Response Procedure Procedure Tolerated Well Tolerated Well #5 LLE Post -Time 11: 14:04 -Correct Patient Yes Yes -Correct Side, Site, Position Yes Yes -Correct Procedure Yes Yes -Procedure Performed Yes Yes -Type of Procedure Debridement Debridement -Clinical Debridement Subcutaneous Subcutaneous -Post Debridement Size (cm) - Length 8.1 7.5 -Post Debridement Size (cm) - Width 5.1 5.3 -Post Debridement Size (cm) - Depth 0.3 0.2 -Total Square Cm 41.31 39.75 -Wound/Ulcer Outcome Not Healed Not Healed -Ulcer Cleansing Rinsed/ Rinsed/ Irrigated with Irrigated with Saline Saline -Foul Odor after Cleansing No No -Bioengineered Tissue No No -Topical Lidocaine (%) 4 -Bleeding Controlled with Pressure Pressure -Other -Treatment Response Procedure Procedure Tolerated Well Tolerated Well Pain Scale: 0-10 Numeric Is Patient Pain Free? Yes Yes Wound debrided: posterior leg Laterality: Left Type of Debridement: Excisional debridement Anesthesia Used: 4% Lidocaine Solution Depth: in the subcutaneous layer Percentage of wound debrided: 100 Instrument Used: #15 blade Tissue Removed: fibrous, devitalized subcutaneous, biofilm, slough Severity: Fat Layer Exposed Amount of bleeding with debridement: Mild Bleeding Controlled with: Pressure Patient tolerated procedure well - Additional Wound Wound debrided: anterior leg Laterality: Left Type of Debridement: Excisional debridement Anesthesia Used: 4% Lidocaine Solution Depth: to muscle Percentage of wound debrided: 80 - subcutaneous, 10 - tendon Instrument Used: #15 blade, Forceps Tissue Removed: fibrous, devitalized subcutaneous and tendon, biofilm, slough Severity: Necrosis of Muscle Amount of bleeding with debridement: Mild Bleeding Controlled with: Pressure Patient tolerated procedure: Patient tolerated procedure well Assessment/Plan Assessment: 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 Bilateral lower leg edema swelling increased in the left leg. Left lower leg ulcer-anterior (tendon exposed) and posterior (subcutaneous tissue exposed) now s/p advanced wound product application. 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 Atrial fib to onset. Peripheral vascular disease Plan: I reviewed and discussed his care plan. Subcutaneous and tendon debridement was performed as noted in the clinical panel and he tolerated this well. To wash leg daily with Hibiclens antimicrobial soap. And to apply Aquacel Ag and gauze to the wound to reduce the bioburden and infection. To discontinue wound VAC. Infectious disease consultation was performed today and multi organism growth was noted at the following: MRSA (PCR), burkoholderia cepacia, propionicbacterium propionicum, and prevotella intermedia. This case was discussed in detail with infectious disease physician consultation is greatly appreciated. He was advised to continue on doxycycline and ciprofloxacin for 2 weeks and prescription and lab orders were provided. It is noted his last set of labs included a white blood cell count of 14.3, limitation rate of 95, C-reactive protein of 111.0. He was advised to monitor for local and systemic signs of illness and to report to the emergency room if these emerge. I recommend repeat debridement in the operating room with application of Amiofill and epi cord early May if his local deterioration improves. Consents were signed today and he fully understands the plan. He is amenable to this plan and understands indications purpose and anticipated healing time and management that is anticipated to be staged. We discussed the indications, planned procedure, possible benefits, risks, complications, and anticipated healing time and management. No guarantees are made. He understands complications and risks may include but are not limited to the following: Pain, swelling, scarring, loss of limb, function, life, blood clot, allergic reaction, chronic pain, delayed or nonhealing, infection, dropfoot, abnormal walking pattern, need for additional surgeries. He understands preoperative clearance and history and physical exam with Dr. Fulton are required prior to proceeding to the operating room and he is scheduled to have this done today. He was advised to elevate his limb at least 20 min/hour. Due to his continued swelling and ongoing discomfort in the back of his left leg I ordered a venous Doppler exam to rule out a deep venous thrombosis. This is reviewed after clinic and it was negative for blood clot. Was to follow-up with vascular surgery as advised. He was advised to monitor this and he demonstrates understanding. To continue nutritional supplementation optimize healing. To continue with Tubigrip compression to decrease leg edema. To return to clinic in 2 week (surgery is scheduled in one week) or call sooner if he has any questions or concerns.
== END 2018-05-18 23:59 ==
LOC: CVS 15:00
PROVIDERS: Family Provider Internal Medicine; PCP Internal Medicine; Visit Provider Podiatrist
DX: I73.9 Peripheral vascular disease, unspecified (principal); I87.2 Venous insufficiency (chronic) (peripheral); Z86.14 Personal history of Methicillin resistant Staphylococcus aureus infection; I50.22 Chronic systolic (congestive) heart failure; I48.91 Unspecified atrial fibrillation; M30.3 Mucocutaneous lymph node syndrome [Kawasaki]; M79.605 Pain in left leg; R60.0 Localized edema; M79.89 Other specified soft tissue disorders; L97.822 Non-pressure chronic ulcer of other part of left lower leg with fat layer exposed; L97.823 Non-pressure chronic ulcer of other part of left lower leg with necrosis of muscle; G62.9 Polyneuropathy, unspecified
CPT/HCPCS: 11042; 11043; 11045; 80053; 85025; 85652; 86140; 87070; 87075; 87077; 87186; 87205; 87640; 93971; 97608; 99213; 99214; G0463

== ENCOUNTER 2018-06-06 08:30 | Outpatient (RCR) | payer MEDICARE, OTHER, SELFPAY ==
[2018-05-19 00:39] VITALS: BP 118/60; PULSE 113; RESP 18; TEMP 36.4; BMI 65.4
[2018-05-23 08:55] VITALS: BP 99/62; PULSE 106; RESP 16; TEMP 37.3; BMI 65.4
--- NOTE | 2018-05-23 10:59 | PCM.WC.PN ---
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 Current Visit: Yes Code(s): L97.922 - Non-pressure chronic ulcer of unspecified part of left lower leg with fat layer exposed (3) Venous insufficiency Status: Chronic Current Visit: Yes Code(s): I87.2 - Venous insufficiency (chronic) (peripheral) (4) Cellulitis of left leg Status: Resolved Current Visit: Yes Code(s): L03.116 - Cellulitis of left lower limb (5) Peripheral vascular disease of extremity with claudication Status: Chronic Current Visit: Yes Code(s): I73.9 - Peripheral vascular disease, unspecified (6) Deep venous thrombosis of distal end of left lower extremity Status: Ruled-out Current Visit: Yes Code(s): I82.4Z2 - Acute embolism and thrombosis of unspecified deep veins of left distal lower extremity (7) MRSA (methicillin resistant Staphylococcus aureus) infection Status: Ruled-out Current Visit: Yes Code(s): A49.02 - Methicillin resistant Staphylococcus aureus infection, unspecified site Type of Wound Date of Service: 05/23/18 Chief Complaint: Follow-up on left lower leg ulcers History of Wound: 77-year-old male who had surgery with Dr. 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 He follows up today for two left left lower extremity wounds. He has decreased swelling and inflammation to that site today. He denies fever, chill, nausea, vomiting, loss of appetite, odor, streaking to the leg. He did undergo surgical debridement of his necrotic tendon with application of epi cord and amniofill. He is left his dressing intact. This repeat procedure was recommended and was canceled for this week because he unfortunately missed his history and physical and clearance examining she with Dr. Fulton. He will try to get this rescheduled in the near future. He reports increased drainage and odor noted. He denies fever, chill, nausea, vomiting, loss of appetite. He denies leg ulcer pain. He did have a venous Doppler performed which was negative for DVT and his pain has resolved to the site. Progress of Wound: Worsening status - Physical Exam Vital Signs Temp Pulse Resp BP 99.1 F 106 H 16 99/62 05/23/18 08:55 05/23/18 08:55 05/23/18 08:55 05/23/18 08:55 General: Alert, Oriented x3, Cooperative HEENT: Atraumatic Extremities: No cyanosis, Capillary Refill Less than 3 Seconds, No Calf Tenderness - Negative Araya sign left, Diminished Peripheral Pulses, Edema - Moderate bilateral lower extremities Skin: Ulcer/ Wound - No purulence, no erythema, streaking, no odor, no acute signs of infection. The erythema, orders drainage, and inflammation have decreased since he has been on antibiotics. There is exposed bone and tendon. The wound bed is fibrous and mainly granular. The tibia bone remains firm and white in appearance Wound Measurements and Assessment WC - Nurse 1 - General Ulcer Measurement Start: 05/23/18 08:55 Freq: Status: Active Protocol: Activity Type Activity Date Activity User E-Sign Co-Sign Detail Recorded Client Recorded Date Recorded By Document 05/23/18 08:55 CT [id number] 05/23/18 09:20 CT 05/23/18 08:55 Wound Center Nurse 1 [Ulcer Assessment] #6 L Christensen -Combined with other wound No -Current Size (cm) - Length 20 -Current Size (cm) - Width 11.7 -Current Size (cm) - Depth 0.3 -Total Square Cm 234.0 -Photo Taken No -Tunneling No -Undermining/Tunneling No -Circular Undermining No -Exudate Amt Medium (34-66%) -Exudate Type Purulent -Wound Margin Thickened -Granulation Amt Small (1-33%) -Granulation Quality Red -Necrosis Amt Large (67-100%) -Necrotic Tissue Type Adherent Slough -Structure Exposed Tendon -Texture (Cyndy-wound Skin Appearance) Assessed Localized Edema -Moisture (Cyndy-wound Skin Appearance Assessed ) Maceration -Color (Ycndy-wound Skin Appearance) Assessed Rubor -Temperature (Cyndy-wound Skin No Abnormality Appearance) (Pt Warm) -Tenderness on Palpation (Cynyd-wound No Skin Appearance) -Ulcer Cleansing Rinsed/ Irrigated with Saline -Foul Odor after Cleansing No -Anesthetic Used 4% Lidocaine Solution 5% Lidocaine Gel #5 LLE Post -Combined with other wound No -Current Size (cm) - Length 8.5 -Current Size (cm) - Width 2.5 -Current Size (cm) - Depth 0.2 -Total Square Cm 21.25 -Photo Taken No -Tunneling No -Undermining/Tunneling No -Circular Undermining No -Exudate Amt Small (1-33%) -Exudate Type Serosanguineous -Wound Margin Flat & Intact -Granulation Amt Medium (34-66%) -Granulation Quality Pale [place] -Necrosis Amt Medium (34-66%) -Necrotic Tissue Type Adherent Slough -Texture (Cyndy-wound Skin Appearance) Assessed Localized Edema -Moisture (Cyndy-wound Skin Appearance Assessed ) Maceration -Color (Cyndy-wound Skin Appearance) Assessed -Temperature (Cyndy-wound Skin No Abnormality Appearance) (Pt Warm) -Tenderness on Palpation (Cyndy-wound No Skin Appearance) -Ulcer Cleansing Rinsed/ Irrigated with Saline -Foul Odor after Cleansing No -Anesthetic Used 4% Lidocaine Solution [Edema Assessment] -Lower Limb Edema Present Yes -Left Calf (cm) 42 -Left Ankle (cm) 30.5 WC - Nurse 2 - General Ulcer CM Notes Start: 05/23/18 08:55 Freq: Status: Active Protocol: Activity Type Activity Date Activity User E-Sign Co-Sign Detail Recorded Client Recorded Date Recorded By Document 05/23/18 09:51 [id number] 05/23/18 09:57 05/23/18 09:51 Wound Center Nurse 2 [Procedure/Treatment] #6 L Christensen -Time 09:56 -Correct Patient Yes -Correct Side, Site, Position Yes -Correct Procedure Yes -Procedure Performed Yes -Type of Procedure Debridement -Clinical Debridement Subcutaneous Muscle -Post Debridement Size (cm) - Length 20.1 -Post Debridement Size (cm) - Width 11.8 -Post Debridement Size (cm) - Depth 0.3 -Total Square Cm 237.18 -Wound/Ulcer Outcome Not Healed -Ulcer Cleansing Rinsed/ Irrigated with Saline -Foul Odor after Cleansing No -Bioengineered Tissue No -Topical Lidocaine (%) 4 -Bleeding Controlled with Pressure -Treatment Response Procedure Tolerated Well #5 LLE Post -Time 09:56 -Correct Patient Yes -Correct Side, Site, Position Yes -Correct Procedure Yes -Procedure Performed Yes -Type of Procedure Debridement -Clinical Debridement Subcutaneous -Post Debridement Size (cm) - Length 8.6 -Post Debridement Size (cm) - Width 2.6 -Post Debridement Size (cm) - Depth 0.2 -Total Square Cm 22.36 -Wound/Ulcer Outcome Not Healed -Ulcer Cleansing Rinsed/ Irrigated with Saline -Foul Odor after Cleansing No -Bioengineered Tissue No -Topical Lidocaine (%) 4 -Bleeding Controlled with Pressure -Treatment Response Procedure Tolerated Well [See Physician Procedure note for Specifics] Pain Scale: 0-10 Numeric [Pain] -Is Patient Pain Free? Yes Musculoskeletal: No Tenderness to Palpation of Joints or Extremities, Muscle Wasting, - - Decreased pain with wound and periwound manipulation. The compartments remain soft to the left leg on palpation Neurological: - - Lack of normal epicritic sensation to light touch left lower extremity Psych/Mental Status: Normal Affect, Appropriate, Anxious, - - Extremely talkative Debridement Note Post-Debridement Measurements/Treatment WC - Nurse 2 - General Ulcer CM Notes Start: 05/23/18 08:55 Freq: Status: Active Protocol: Activity Type Activity Date Activity User E-Sign Co-Sign Detail Recorded Client Recorded Date Recorded By Document 05/23/18 09:51 [id number] 05/23/18 09:57 05/23/18 09:51 Wound Center Nurse 2 #6 L Christensen -Time 09:56 -Correct Patient Yes -Correct Side, Site, Position Yes -Correct Procedure Yes -Procedure Performed Yes -Type of Procedure Debridement -Clinical Debridement Subcutaneous Muscle -Post Debridement Size (cm) - Length 20.1 -Post Debridement Size (cm) - Width 11.8 -Post Debridement Size (cm) - Depth 0.3 -Total Square Cm 237.18 -Wound/Ulcer Outcome Not Healed -Ulcer Cleansing Rinsed/ Irrigated with Saline -Foul Odor after Cleansing No -Bioengineered Tissue No -Topical Lidocaine (%) 4 -Bleeding Controlled with Pressure -Treatment Response Procedure Tolerated Well #5 LLE Post -Time 09:56 -Correct Patient Yes -Correct Side, Site, Position Yes -Correct Procedure Yes -Procedure Performed Yes -Type of Procedure Debridement -Clinical Debridement Subcutaneous -Post Debridement Size (cm) - Length 8.6 -Post Debridement Size (cm) - Width 2.6 -Post Debridement Size (cm) - Depth 0.2 -Total Square Cm 22.36 -Wound/Ulcer Outcome Not Healed -Ulcer Cleansing Rinsed/ Irrigated with Saline -Foul Odor after Cleansing No -Bioengineered Tissue No -Topical Lidocaine (%) 4 -Bleeding Controlled with Pressure -Treatment Response Procedure Tolerated Well Pain Scale: 0-10 Numeric Is Patient Pain Free? Yes Wound debrided: anterior leg Laterality: Left Type of Debridement: Excisional debridement Anesthesia Used: 4% Lidocaine Solution Depth: in the subcutaneous layer Percentage of wound debrided: 100 Instrument Used: 5mm curette Tissue Removed: fibrous, devitalized subcutaneous, biofilm, slough Severity: Fat Layer Exposed Amount of bleeding with debridement: Mild Bleeding Controlled with: Pressure Patient tolerated procedure well - Additional Wound Wound debrided: posterior leg Laterality: Left Type of Debridement: Excisional debridement Anesthesia Used: 4% Lidocaine Solution Depth: in the subcutaneous layer Percentage of wound debrided: 100 Instrument Used: 5mm curette Tissue Removed: fibrous, devitalized subcutaneous, biofilm, slough Severity: Fat Layer Exposed Amount of bleeding with debridement: Mild Bleeding Controlled with: Pressure Patient tolerated procedure: Patient tolerated procedure well Assessment/Plan Active Problems 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 Bilateral lower leg edema swelling increased in the left leg. Left lower leg ulcer-anterior (tendon exposed) and posterior (subcutaneous tissue exposed) now s/p advanced wound product application. 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 Atrial fib to onset. Peripheral vascular disease Plan: I reviewed and discussed his care plan. Subcutaneous and tendon debridement was performed as noted in the clinical panel and he tolerated this well. To wash leg daily with gentle Dial soap continue antimicrobial aggressive soap at this time. His wound appearance has improved and his infection signs are resolving. To change the dressing with Adaptic and Aquacel Ag. He has approximately 4 days left of antibiotics and he was advised to complete this. Infectious disease is on consultation and input is greatly appreciated. He was advised to monitor for local and systemic signs of illness and to report to the emergency room if these emerge. I recommend repeat debridement in the operating room with application of Amiofill and epi cord soon as possible. Consents were already freely signed. He is amenable to this plan and understands indications purpose and anticipated healing time and management that is anticipated to be staged. A new clearance and history and physical exam will be arranged prior to re-scheduling his debridement in the operating room with advanced product. He was advised to elevate his limb at least 20 min/hour. to follow-up with vascular surgery as advised. He is reassured there are no signs of infection or blood clot today. His venous Doppler results were reviewed from last week and were negative for deep venous thrombosis. He was advised to monitor this and he demonstrates understanding. To continue nutritional supplementation optimize healing. To continue with Tubigrip compression to decrease leg edema. To return to clinic in 1 week or call sooner if he has any questions or concerns.
[2018-05-30 08:58] VITALS: BP 94/60; PULSE 90; RESP 18; TEMP 37.5; BMI 65.4
--- NOTE | 2018-05-30 10:43 | PN.PCM_ITS ---
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 Current Visit: Yes Code(s): L97.922 - Non-pressure chronic ulcer of unspecified part of left lower leg with fat layer exposed (3) Venous insufficiency Status: Chronic Current Visit: Yes Code(s): I87.2 - Venous insufficiency ( chronic) (peripheral) (4) Cellulitis of left leg Status: Resolved Current Visit: Yes Code(s): L03.116 - Cellulitis of left lower limb (5) Peripheral vascular disease of extremity with claudication Status: Chronic Current Visit: Yes Code(s): I73.9 - Peripheral vascular disease, unspecified (6) Deep venous thrombosis of distal end of left lower extremity Status: Ruled-out Current Visit: Yes Code(s): I82.4Z2 - Acute embolism and thrombosis of unspecified deep veins of left distal lower extremity (7) MRSA (methicillin resistant Staphylococcus aureus) infection Status: Ruled-out Current Visit: Yes Code(s): A49.02 - Methicillin resistant Staphylococcus aureus infection, unspecified site Type of Wound Date of Service: 05/30/18 Chief Complaint: Follow-up on left lower leg ulcers History of Wound: 77-year-old male who had surgery with Dr. 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 He follows up today for two left left lower extremity wounds. He has decreased swelling and inflammation to that site today. He denies fever, chill, nausea, vomiting , loss of appetite, odor, streaking to the leg. He did undergo surgical debridement of his necrotic tendon with application of epi cord and amniofill. He is left his dressing intact. This repeat procedure was recommended and was canceled for this week because he unfortunately missed his history and physical and clearance examining she with Dr. Fulton. He will try to get this rescheduled in the near future. He has not been able to reschedule yet. He reports decreased drainage and odor noted. He denies fever, chill, nausea, vomiting, loss of appetite. He denies leg ulcer pain. He did have a venous Doppler performed which was negative for DVT and his pain has resolved to the site. Progress of Wound: Stable - Physical Exam Vital Signs Temp Pulse Resp BP 99.5 F H 90 18 94/60 05/30/18 08:58 05/30/18 08:58 05/30/18 08:58 05/30/18 08:58 General: Alert, Oriented x3, Cooperative HEENT: Atraumatic Extremities: No cyanosis, Capillary Refill Less than 3 Seconds, No Calf Tenderness - Negative Travon and Araya left, Diminished Peripheral Pulses, Edema - Left lower extremity Skin: Ulcer/ Wound - There is a large wound with no erythema, streaking, odor, nena necrosis noted. There is exposed bone to the anterior crest of the mid tibia with some overlying debris; this is still firm to touch. There is exposed tendon there is no longer devitalized. There is exposed subcutaneous and fibrous tissue with granulation tissue also the anterior and posterior wound. The peripheral skin is hairless and atrophic. Wound Measurements and Assessment WC - Nurse 1 - General Ulcer Measurement Start: 05/23/18 08:55 Freq: Status: Active Protocol: Activity Type Activity Date Activity User E-Sign Co-Sign Detail Recorded Client Recorded Date Recorded By Document 05/30/18 08:58 RB [id number] 05/30/18 09:13 RB 05/30/18 08:58 Wound Center Nurse 1 [Ulcer Assessment] #6 L Christensen -Combined with other wound No -Current Size (cm) - Length 21.5 -Current Size (cm) - Width 8.6 -Current Size (cm) - Depth 0.3 -Total Square Cm 184.90 -Photo Taken No -Tunneling No -Undermining/Tunneling No -Circular Undermining No -Classification - Thickness Full Thickness without Exposed Support Structure -Exudate Amt Large (67-100%) -Exudate Type Serosanguineous -Wound Margin Distinct, Outline Attached -Granulation Amt Medium (34-66%) -Granulation Quality [place] -Slough/Fibrin Yes -Necrosis Amt Large (67-100%) -Necrotic Tissue Type Adherent Slough -Structure Exposed N/A -Texture (Cyndy-wound Skin Appearance) Assessed -Moisture (Cyndy-wound Skin Appearance Dry/Scaly ) -Color (Cyndy-wound Skin Appearance) Assessed -Temperature (Cyndy-wound Skin No Abnormality Appearance) (Pt Warm) -Tenderness on Palpation (Cyndy-wound No Skin Appearance) -Ulcer Cleansing Rinsed/ Irrigated with Saline -Foul Odor after Cleansing No -Anesthetic Used 4% Lidocaine Solution 5% Lidocaine Gel #5 LLE Post -Combined with other wound No -Current Size (cm) - Length 8 -Current Size (cm) - Width 2.3 -Current Size (cm) - Depth 0.2 -Total Square Cm 18.4 -Photo Taken No -Tunneling No -Undermining/Tunneling No -Circular Undermining No -Classification - Thickness Full Thickness without Exposed Support Structure -Exudate Amt Small (1-33%) -Exudate Type Serosanguineous -Wound Margin Distinct, Outline Attached -Granulation Amt Medium (34-66%) -Granulation Quality [place] -Slough/Fibrin Yes -Necrosis Amt Medium (34-66%) -Necrotic Tissue Type Adherent Slough -Structure Exposed N/A -Texture (Cyndy-wound Skin Appearance) Assessed -Moisture (Cyndy-wound Skin Appearance Dry/Scaly ) -Color (Cyndy-wound Skin Appearance) Assessed -Temperature (Cyndy-wound Skin No Abnormality Appearance) (Pt Warm) -Tenderness on Palpation (Cyndy-wound No Skin Appearance) -Ulcer Cleansing Rinsed/ Irrigated with Saline -Foul Odor after Cleansing No -Anesthetic Used 4% Lidocaine Solution [Edema Assessment] -Lower Limb Edema Present Yes -Right Calf (cm) 34 -Right Ankle (cm) 25 -Left Calf (cm) 47 -Left Ankle (cm) 27.5 WC - Nurse 2 - General Ulcer CM Notes Start: 05/23/18 08:55 Freq: Status: Active Protocol: Activity Type Activity Date Activity User E-Sign Co-Sign Detail Recorded Client Recorded Date Recorded By Document 05/30/18 09:41 [id number] 05/30/18 09:43 05/30/18 09:41 Wound Center Nurse 2 [Procedure/Treatment] #6 L Christensen -Time 09:41 -Correct Patient Yes -Correct Side, Site, Position Yes -Correct Procedure Yes -Procedure Performed Yes -Type of Procedure Debridement -Clinical Debridement Subcutaneous -Post Debridement Size (cm) - Length 21.6 -Post Debridement Size (cm) - Width 8.7 -Post Debridement Size (cm) - Depth 0.3 -Total Square Cm 187.92 -Wound/Ulcer Outcome Not Healed -Ulcer Cleansing Rinsed/ Irrigated with Saline -Foul Odor after Cleansing No -Bioengineered Tissue No -Topical Lidocaine (%) 5 -Bleeding Controlled with Pressure -Treatment Response Procedure Tolerated Well #5 LLE Post -Time 09:42 -Correct Patient Yes -Correct Side, Site, Position Yes -Correct Procedure Yes -Procedure Performed Yes -Type of Procedure Debridement -Clinical Debridement Subcutaneous -Post Debridement Size (cm) - Length 8.1 -Post Debridement Size (cm) - Width 2.4 -Post Debridement Size (cm) - Depth 0.2 -Total Square Cm 19.44 -Wound/Ulcer Outcome Not Healed -Ulcer Cleansing Rinsed/ Irrigated with Saline -Foul Odor after Cleansing No -Bioengineered Tissue No -Topical Lidocaine (%) 5 -Bleeding Controlled with Pressure -Treatment Response Procedure Tolerated Well [See Physician Procedure note for Specifics] Pain Scale: 0-10 Numeric [Pain] -Is Patient Pain Free? Yes Musculoskeletal: No Tenderness to Palpation of Joints or Extremities, Muscle Wasting, - - Compartments soft left lower extremity Neurological: Sensory exam intact to light touch and pain Psych/Mental Status: Normal Affect, Appropriate Debridement Note Post-Debridement Measurements/Treatment WC - Nurse 2 - General Ulcer CM Notes Start: 05/23/18 08:55 Freq: Status: Active Protocol: Activity Type Activity Date Activity User E-Sign Co-Sign Detail Recorded Client Recorded Date Recorded By Document 05/23/18 09:51 [id number] 05/23/18 09:57 TM Document 05/30/18 09:41 [id number] 05/30/18 09:43 TM 05/23/18 05/30/18 09:51 09:41 Wound Center Nurse 2 #6 L Christensen -Time 09:56 09:41 -Correct Patient Yes Yes -Correct Side, Site, Position Yes Yes -Correct Procedure Yes Yes -Procedure Performed Yes Yes -Type of Procedure Debridement Debridement -Clinical Debridement Subcutaneous Subcutaneous Muscle -Post Debridement Size (cm) - Length 20.1 21.6 -Post Debridement Size (cm) - Width 11.8 8.7 -Post Debridement Size (cm) - Depth 0.3 0.3 -Total Square Cm 237.18 187.92 -Wound/Ulcer Outcome Not Healed Not Healed -Ulcer Cleansing Rinsed/ Rinsed/ Irrigated with Irrigated with Saline Saline -Foul Odor after Cleansing No No -Bioengineered Tissue No No -Topical Lidocaine (%) 4 5 -Bleeding Controlled with Pressure Pressure -Treatment Response Procedure Procedure Tolerated Well Tolerated Well #5 LLE Post -Time 09:56 09:42 -Correct Patient Yes Yes -Correct Side, Site, Position Yes Yes -Correct Procedure Yes Yes -Procedure Performed Yes Yes -Type of Procedure Debridement Debridement -Clinical Debridement Subcutaneous Subcutaneous -Post Debridement Size (cm) - Length 8.6 8.1 -Post Debridement Size (cm) - Width 2.6 2.4 -Post Debridement Size (cm) - Depth 0.2 0.2 -Total Square Cm 22.36 19.44 -Wound/Ulcer Outcome Not Healed Not Healed -Ulcer Cleansing Rinsed/ Rinsed/ Irrigated with Irrigated with Saline Saline -Foul Odor after Cleansing No No -Bioengineered Tissue No No -Topical Lidocaine (%) 4 5 -Bleeding Controlled with Pressure Pressure -Treatment Response Procedure Procedure Tolerated Well Tolerated Well Pain Scale: 0-10 Numeric Is Patient Pain Free? Yes Yes Wound debrided: posterior leg Laterality: Left Type of Debridement: Excisional debridement Anesthesia Used: 4% Lidocaine Solution Depth: in the subcutaneous layer Percentage of wound debrided: 100 Instrument Used: 5mm curette Tissue Removed: fibrous, devitalized subcutaneous, biofilm, slough Severity: Fat Layer Exposed Amount of bleeding with debridement: Mild Bleeding Controlled with: Pressure Patient tolerated procedure well - Additional Wound Wound debrided: anterior leg Laterality: Left Type of Debridement: Excisional debridement Anesthesia Used: 4% Lidocaine Solution Depth: in the subcutaneous layer Percentage of wound debrided: 100 Instrument Used: 5mm curette Severity: Limited To Skin Breakdown Amount of bleeding with debridement: Mild Bleeding Controlled with: Pressure Patient tolerated procedure: Patient tolerated procedure well Assessment/Plan Active Problems 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 Bilateral lower leg edema swelling increased in the left leg. Left lower leg ulcer-anterior (tendon exposed) and posterior (subcutaneous tissue exposed) now s/p advanced wound product application. 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 Atrial fib to onset. Peripheral vascular disease Plan: I reviewed and discussed his care plan. Subcutaneous and tendon debridement was performed as noted in the clinical panel and he tolerated this well. To wash leg daily with gentle Dial soap continue antimicrobial aggressive soap at this time. His wound appearance has improved and his infection signs are resolving. To change the dressing with Adaptic and Aquacel Ag. He has completed course of antibiotics. Infectious disease is on consultation and input is greatly appreciated. He was advised to monitor for local and systemic signs of illness and to report to the emergency room if these emerge. I recommend repeat debridement in the operating room with application of Amiofill and epi cord soon as possible. Consents were already freely signed. He is amenable to this plan and understands indications purpose and anticipated healing time and management that is anticipated to be staged. A new clearance and history and physical exam will be arranged prior to re- scheduling his debridement in the operating room with advanced product. He was advised to elevate his limb at least 20 min/hour. to follow-up with vascular surgery as advised. He previously saw Dr. Maloney and mainly addressed venous insufficiency issues. I do recommend he returns for discussion of further arterial workup or intervention due to his progressive deterioration of the wound and increased size. I am concerned that there arterial disease may be contributing to this. He was reassured there are no signs of infection or blood clot today. I am concerned about his prolonged bone exposure. It is noted his remote MRI to his leg was negative for osteomyelitis. I do recommend repeating labs including CBC, ESR, CRP, as well as a leg x-ray to screen for any status change with the tibia. Orders were provided. His recent venous Doppler results were reviewed and were negative for deep venous thrombosis. He was advised to monitor this and he demonstrates understanding. To continue n utritional supplementation optimize healing. To continue with Tubigrip compression to decrease leg edema. To return to clinic in 1 week or call sooner if he has any questions or concerns. I answered all of his questions.
[2018-06-06 08:43] VITALS: BP 93/57; PULSE 119; RESP 18; TEMP 37.1; BMI 65.4
--- NOTE | 2018-06-06 09:58 | PCM.WC.PN ---
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 Current Visit: Yes Code(s): L97.922 - Non-pressure chronic ulcer of unspecified part of left lower leg with fat layer exposed (3) Venous insufficiency Status: Chronic Current Visit: Yes Code(s): I87.2 - Venous insufficiency (chronic) (peripheral) (4) Cellulitis of left leg Status: Resolved Current Visit: Yes Code(s): L03.116 - Cellulitis of left lower limb (5) Peripheral vascular disease of extremity with claudication Status: Chronic Current Visit: Yes Code(s): I73.9 - Peripheral vascular disease, unspecified (6) Deep venous thrombosis of distal end of left lower extremity Status: Ruled-out Current Visit: Yes Code(s): I82.4Z2 - Acute embolism and thrombosis of unspecified deep veins of left distal lower extremity (7) MRSA (methicillin resistant Staphylococcus aureus) infection Status: Ruled-out Current Visit: Yes Code(s): A49.02 - Methicillin resistant Staphylococcus aureus infection, unspecified site Type of Wound Date of Service: 06/06/18 Chief Complaint: Follow-up on left lower leg ulcers History of Wound: 77-year-old male who had surgery with Dr. 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 He follows up today for two left left lower extremity wounds. He has decreased swelling and inflammation to that site today. He denies fever, chill, nausea, vomiting, loss of appetite, odor, streaking to the leg. He did undergo surgical debridement of his necrotic tendon with application of epi cord and amniofill. He was set up to have a history and physical exam performed by a different physician and his surgery is tentatively scheduled for June 29, 2018. He reports decreased drainage and odor noted. He denies fever, chill, nausea, vomiting, loss of appetite. He denies leg ulcer pain. He did have a venous Doppler performed which was negative for DVT and his pain has resolved to the site. I recommended updated labs and x-rays to evaluate for osteomyelitis due to the chronicity of this wound and exposed bone; he did not get this done yet. Progress of Wound: Stable - Physical Exam Vital Signs Temp Pulse Resp BP 98.7 F 119 H 18 93/57 L 06/06/18 08:43 06/06/18 08:43 06/06/18 08:43 06/06/18 08:43 General: Alert, Oriented x3, Cooperative Extremities: No cyanosis, Capillary Refill Less than 3 Seconds, No Calf Tenderness, Diminished Peripheral Pulses, Edema - Mild left lower extremity Skin: Ulcer/ Wound - No purulence, no erythema, streaking, odor, no acute signs of infection. The bone is firm to touch and is still exposed. The remaining tendon appears to be healthy and is not necrotic., - - The peripheral skin is hairless and atrophic Wound Measurements and Assessment WC - Nurse 1 - General Ulcer Measurement Start: 05/23/18 08:55 Freq: Status: Active Protocol: Activity Type Activity Date Activity User E-Sign Co-Sign Detail Recorded Client Recorded Date Recorded By Document 06/06/18 08:43 DL [id number] 06/06/18 08:56 DL 06/06/18 08:43 Wound Center Nurse 1 [Ulcer Assessment] #6 L Christensen -Current Size (cm) - Length 21.2 -Current Size (cm) - Width 11 -Current Size (cm) - Depth 0.4 -Total Square Cm 233.2 -Photo Taken No -Exudate Amt Large (67-100%) -Exudate Type Serosanguineous -Wound Margin Distinct, Outline Attached -Granulation Amt Small (1-33%) -Granulation Quality [place] -Necrosis Amt Large (67-100%) -Necrotic Tissue Type Adherent Slough -Structure Exposed Tendon Bone -Texture (Cyndy-wound Skin Appearance) Localized Edema Scarring -Moisture (Cyndy-wound Skin Appearance No Abnormality ) -Color (Cyndy-wound Skin Appearance) Hemosiderin Staining Rubor -Temperature (Cyndy-wound Skin No Abnormality Appearance) (Pt Warm) -Ulcer Cleansing Wound Cleanser -Foul Odor after Cleansing No -Anesthetic Used 4% Lidocaine Solution #5 LLE Post -Current Size (cm) - Length 7 -Current Size (cm) - Width 2.2 -Current Size (cm) - Depth 0.4 -Total Square Cm 15.4 -Photo Taken No -Exudate Amt Medium (34-66%) -Exudate Type Serosanguineous -Wound Margin Thickened -Granulation Amt Small (1-33%) -Granulation Quality [place] -Necrosis Amt Large (67-100%) -Necrotic Tissue Type Adherent Slough -Structure Exposed N/A -Texture (Cyndy-wound Skin Appearance) Localized Edema Scarring -Moisture (Cyndy-wound Skin Appearance No Abnormality ) -Color (Cyndy-wound Skin Appearance) Hemosiderin Staining Rubor -Temperature (Cyndy-wound Skin No Abnormality Appearance) (Pt Warm) -Ulcer Cleansing Wound Cleanser -Foul Odor after Cleansing No -Anesthetic Used 4% Lidocaine Solution [Edema Assessment] -Left Calf (cm) 43 -Left Ankle (cm) 25 WC - Nurse 2 - General Ulcer CM Notes Start: 05/23/18 08:55 Freq: Status: Active Protocol: Activity Type Activity Date Activity User E-Sign Co-Sign Detail Recorded Client Recorded Date Recorded By Document 06/06/18 09:04 DL [id number] 06/06/18 09:12 DL 06/06/18 09:04 Wound Center Nurse 2 [Procedure/Treatment] #6 L Christensen -Time 09:04 -Correct Patient Yes -Correct Side, Site, Position Yes -Correct Procedure Yes -Procedure Performed Yes -Type of Procedure Debridement -Clinical Debridement Subcutaneous -Post Debridement Size (cm) - Length 21.3 -Post Debridement Size (cm) - Width 11.1 -Post Debridement Size (cm) - Depth 0.4 -Total Square Cm 236.43 -Wound/Ulcer Outcome Not Healed -Ulcer Cleansing Rinsed/ Irrigated with Saline -Foul Odor after Cleansing No -Bioengineered Tissue No -Bleeding Controlled with Pressure -Treatment Response Procedure Tolerated Well #5 LLE Post -Time 09:04 -Correct Patient Yes -Correct Side, Site, Position Yes -Correct Procedure Yes -Procedure Performed Yes -Type of Procedure Debridement -Clinical Debridement Subcutaneous -Post Debridement Size (cm) - Length 7 -Post Debridement Size (cm) - Width 2.3 -Post Debridement Size (cm) - Depth 0.4 -Total Square Cm 16.1 -Wound/Ulcer Outcome Not Healed -Ulcer Cleansing Rinsed/ Irrigated with Saline -Foul Odor after Cleansing No -Bioengineered Tissue No -Bleeding Controlled with Pressure -Treatment Response Procedure Tolerated Well [See Physician Procedure note for Specifics] Pain Scale: 0-10 Numeric [Pain] -Is Patient Pain Free? Yes Musculoskeletal: No Tenderness to Palpation of Joints or Extremities, Muscle Wasting, - - Compartments left lower extremity remain soft to touch Neurological: - - Altered sensation light touch and periwound manipulation Psych/Mental Status: Normal Affect, Appropriate Debridement Note Post-Debridement Measurements/Treatment WC - Nurse 2 - General Ulcer CM Notes Start: 05/23/18 08:55 Freq: Status: Active Protocol: Activity Type Activity Date Activity User E-Sign Co-Sign Detail Recorded Client Recorded Date Recorded By Document 05/23/18 09:51 TM [id number] 05/23/18 09:57 TM Document 05/30/18 09:41 TM [id number] 05/30/18 09:43 TM Document 06/06/18 09:04 DL [id number] 06/06/18 09:12 DL 05/23/18 05/30/18 06/06/18 09:51 09:41 09:04 Wound Center Nurse 2 #6 L Christensen -Time 09:56 09:41 09:04 -Correct Patient Yes Yes Yes -Correct Side, Site, Position Yes Yes Yes -Correct Procedure Yes Yes Yes -Procedure Performed Yes Yes Yes -Type of Procedure Debridement Debridement Debridement -Clinical Debridement Subcutaneous Subcutaneous Subcutaneous Muscle -Post Debridement Size (cm) - Length 20.1 21.6 21.3 -Post Debridement Size (cm) - Width 11.8 8.7 11.1 -Post Debridement Size (cm) - Depth 0.3 0.3 0.4 -Total Square Cm 237.18 187.92 236.43 -Wound/Ulcer Outcome Not Healed Not Healed Not Healed -Ulcer Cleansing Rinsed/ Rinsed/ Rinsed/ Irrigated with Irrigated with Irrigated with Saline Saline Saline -Foul Odor after Cleansing No No No -Bioengineered Tissue No No No -Topical Lidocaine (%) 4 5 -Bleeding Controlled with Pressure Pressure Pressure -Treatment Response Procedure Procedure Procedure Tolerated Well Tolerated Well Tolerated Well #5 LLE Post -Time 09:56 09:42 09:04 -Correct Patient Yes Yes Yes -Correct Side, Site, Position Yes Yes Yes -Correct Procedure Yes Yes Yes -Procedure Performed Yes Yes Yes -Type of Procedure Debridement Debridement Debridement -Clinical Debridement Subcutaneous Subcutaneous Subcutaneous -Post Debridement Size (cm) - Length 8.6 8.1 7 -Post Debridement Size (cm) - Width 2.6 2.4 2.3 -Post Debridement Size (cm) - Depth 0.2 0.2 0.4 -Total Square Cm 22.36 19.44 16.1 -Wound/Ulcer Outcome Not Healed Not Healed Not Healed -Ulcer Cleansing Rinsed/ Rinsed/ Rinsed/ Irrigated with Irrigated with Irrigated with Saline Saline Saline -Foul Odor after Cleansing No No No -Bioengineered Tissue No No No -Topical Lidocaine (%) 4 5 -Bleeding Controlled with Pressure Pressure Pressure -Treatment Response Procedure Procedure Procedure Tolerated Well Tolerated Well Tolerated Well Pain Scale: 0-10 Numeric Is Patient Pain Free? Yes Yes Yes Wound debrided: posterior leg Laterality: Left Type of Debridement: Excisional debridement Anesthesia Used: 4% Lidocaine Solution Depth: in the subcutaneous layer Percentage of wound debrided: 100 Instrument Used: #15 blade Tissue Removed: fibrous, devitalized subcutaneous, biofilm, slough Severity: Fat Layer Exposed Amount of bleeding with debridement: Mild Bleeding Controlled with: Pressure Patient tolerated procedure well - Additional Wound Wound debrided: anterior leg Laterality: Left Type of Debridement: Excisional debridement Anesthesia Used: 4% Lidocaine Solution Depth: in the subcutaneous layer Percentage of wound debrided: 100 Instrument Used: #15 blade Tissue Removed: fibrous, devitalized subcutaneous, biofilm, slough Severity: Fat Layer Exposed Amount of bleeding with debridement: Mild Bleeding Controlled with: Pressure Patient tolerated procedure: Patient tolerated procedure well Assessment/Plan Active Problems 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 Bilateral lower leg edema swelling increased in the left leg. Left lower leg ulcer-anterior (tendon exposed) and posterior (subcutaneous tissue exposed) now s/p advanced wound product application. 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 Atrial fib to onset. Peripheral vascular disease Plan: I reviewed and discussed his care plan. Subcutaneous and tendon debridement was performed as noted in the clinical panel and he tolerated this well. To wash leg daily with gentle Dial soap continue antimicrobial aggressive soap at this time. His wound appearance has improved and his infection signs are resolving. To change the dressing with Adaptic and Aquacel Ag. He has completed course of antibiotics. Infectious disease is on consultation and input is greatly appreciated. He was advised to monitor for local and systemic signs of illness and to report to the emergency room if these emerge. I recommend repeat debridement in the operating room with application of Amiofill and epi cord soon as possible. Consents were already freely signed. He is amenable to this plan and understands indications purpose and anticipated healing time and management that is anticipated to be staged. A new clearance and history and physical exam was arranged and he is tentatively scheduled for June 29, 2018. He was advised to elevate his limb at least 20 min/hour. to follow-up with vascular surgery as advised. He is scheduled for July 11, 2018. He previously saw Dr. Maloney and mainly addressed venous insufficiency issues. I do recommend he returns for discussion of further arterial workup or intervention due to his progressive deterioration of the wound and increased size. He was reassured there are no signs of infection or blood clot today. I am concerned about his prolonged bone exposure. It is noted his remote MRI to his leg was negative for osteomyelitis. I do recommend repeating labs including CBC, ESR, CRP, as well as a leg x-ray to screen for any status change with the tibia. Orders were provided last week and I urged him to complete this today. His previous venous Doppler results were reviewed and were negative for deep venous thrombosis. He was advised to monitor this and he demonstrates understanding. To continue nutritional supplementation optimize healing. To continue with Tubigrip compression to decrease leg edema. To return to clinic in 1 week or call sooner if he has any questions or concerns. He understands his delay in completing treatment recommendations as compromising his care plan and his ability to salvage his limb. I answered all of his questions.
--- NOTE | 2018-06-06 15:50 | RAD_ITS ---
STUDY: X-RAY - LEFT TIBIA AND FIBULA REASON FOR EXAM: Male, 77 years old. Anterior wound. Possible osteomyelitis. TECHNIQUE: Frontal lateral view(s) of the tibia and fibula were obtained on 4 films. COMPARISON: None. FINDINGS: There is mottled lucency in the anterior mid to distal third of the tibia consistent with active osteomyelitis. Normal visualized fibula. There is no demonstrated acute fracture. There is a dressing along the mid to distal third of the lower leg. Lobulated irregularity of the cutaneous/subcutaneous tissues at the mid to distal third of the lower leg consistent with an open wound. There is generalized soft tissue swelling. 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 Electronically Signed: Torsten Walden MD at 19:58 EDT , Service support ,
[2018-06-06 17:13] LABS: Absolute Lymphocyte Count 1.19 X10^3/ul (0.83-4.51); Absolute Neutrophil Count 8.9 X10^3/uL (2.0-7.7); Basophil# 0.02 X10^3/uL; Basophil% 0.2 % (0-1); Eosinophil# 0.07 X10^3/uL; Eosinophils% 0.6 % (0-5); Hematocrit 31.9 % (40-54); Lymphocyte # 1.19 X10^3/ul (4.0); Lymphocyte % 10.6 % (19-41); Mean Corp Hgb Conc 31.3 g/gl (32-36); Mean Corpuscular Volume 89.4 fL (80-94); Monocyte# 1.06 X10^3/uL; Monocyte% 9.4 % (0-10); Neutrophil # 8.89 X10^3/uL (2.7-7.7); Platelet Count 410 K/mm3 (150-450); RBC Distribution Width CV 16.4 % (11.6-14.6); RBC Distribution Width SD 51.9 fl (35.1-43.9); Red Blood Count 3.57 M/mm3 (4.6-6.2); White Blood Count 11.3 K/mm3 (4.4-11.0)
[2018-06-06 17:25] LABS: POSITIVE COUNT NO; POSITIVE DIFFERENTIAL NO; POSITIVE MORPHOLOGY NO
[2018-06-06 17:45] LABS: Erythrocyte Sedimentation Rate 78 mm/hr (0-20)
[2018-06-13 08:59] VITALS: BP 104/65; PULSE 126; RESP 18; TEMP 36.8; BMI 65.4
--- NOTE | 2018-06-13 10:31 | PN.PCM_ITS ---
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: Chronic Code(s): L97.922 - Non-pressure chronic ulcer of unspecified part of left lower leg with fat layer exposed (4) Venous insufficiency Status: Chronic Code(s): I87.2 - Venous insufficiency (chronic) (peripheral) (5) Cellulitis of left leg Status: Resolved Code(s): L03.116 - Cellulitis of left lower limb (6) Peripheral vascular disease of extremity with claudication Status: Chronic Code(s): I73.9 - Peripheral vascular disease, unspecified (7) Deep venous thrombosis of distal end of left lower extremity Status: Ruled-out Code(s): I82.4Z2 - Acute embolism and thrombosis of unspecified deep veins of left distal lower extremity (8) MRSA (methicillin resistant Staphylococcus aureus) infection Status: Ruled-out Code(s): A49.02 - Methicillin resistant Staphylococcus aureus infection, unspecified site Type of Wound Date of Service: 06/13/18 Chief Complaint: Follow-up on left lower leg ulcers History of Wound: 77-year-old male who had surgery with Dr. Maloney in July for his small vessel occlusions in the left leg and venous insufficiency. He follows up today for two chronic non healing left left lower extremity wounds. He denies fever, chill, nausea, vomiting, loss of appetite, odor, streaking to the leg. He denies new redness or increased swelling. He denies pain. He did obtain the recommended leg x-rays and labs this past week even though it was obtained in a very delayed manner. Progress of Wound: Worsening status - Physical Exam Vital Signs Temp Pulse Resp BP 98.2 F 126 H 18 104/65 06/13/18 08:59 06/13/18 08:59 06/13/18 08:59 06/13/18 08:59 General: Alert, Oriented x3, Cooperative HEENT: Atraumatic Extremities: No cyanosis, Capillary Refill Less than 3 Seconds - All digits left foot, No Calf Tenderness - Negative Travon and Araya bilateral, Diminished Peripheral Pulses, Edema - Left leg moderate Skin: Ulcer/ Wound - There is no purulence, odor, streaking, fluctuance on palpation. The anterior leg wound has exposed tendon that is no longer necrotic and continued exposed mid tibial crest that is larger in size and is now discolored and has a moth-eaten appearance, - - The posterior leg ulcer has fibrous tissue and granulation tissue. The peripheral skin is atrophic and hairless Wound Measurements and Assessment WC - Nurse 1 - General Ulcer Measurement Start: 05/23/18 08:55 Freq: Status: Active Protocol: Activity Type Activity Date Activity User E-Sign Co-Sign Detail Recorded Client Recorded Date Recorded By Document 06/13/18 08:59 MAGALYS [id number] 06/13/18 09:08 MAGALYS 06/13/18 08:59 Wound Center Nurse 1 [Ulcer Assessment] #6 L Christensen -Combined with other wound No -Current Size (cm) - Length 21.5 -Current Size (cm) - Width 8.0 -Current Size (cm) - Depth 0.3 -Total Square Cm 172.00 -Photo Taken Yes -Epithelialization None Present -Tunneling No -Undermining/Tunneling No -Circular Undermining No -Exudate Amt Large (67-100%) -Exudate Type Serosanguineous -Wound Margin Flat & Intact -Granulation Amt None Present (0 %) -Slough/Fibrin Yes -Necrosis Amt Large (67-100%) -Necrotic Tissue Type Adherent Slough -Structure Exposed Tendon -Texture (Cyndy-wound Skin Appearance) Assessed Induration Localized Edema -Moisture (Cyndy-wound Skin Appearance Assessed ) Dry/Scaly -Color (Cyndy-wound Skin Appearance) Assessed -Temperature (Cyndy-wound Skin No Abnormality Appearance) (Pt Warm) -Tenderness on Palpation (Cyndy-wound No Skin Appearance) -Ulcer Cleansing Wound Cleanser -Foul Odor after Cleansing No -Anesthetic Used 4% Lidocaine Solution #5 LLE Post -Combined with other wound No -Current Size (cm) - Length 4 -Current Size (cm) - Width 2.7 -Current Size (cm) - Depth 0.2 -Total Square Cm 10.8 -Photo Taken Yes -Epithelialization Medium 34-66% -Tunneling No -Undermining/Tunneling No -Circular Undermining No -Exudate Amt Medium (34-66%) -Exudate Type Serosanguineous -Wound Margin Flat & Intact -Granulation Amt Medium (34-66%) -Granulation Quality Red -Slough/Fibrin Yes -Necrosis Amt Small (1-33%) -Necrotic Tissue Type Adherent Slough -Structure Exposed N/A -Texture (Cyndy-wound Skin Appearance) Assessed Localized Edema -Moisture (Cyndy-wound Skin Appearance Assessed ) Dry/Scaly -Color (Cyndy-wound Skin Appearance) Assessed -Temperature (Cyndy-wound Skin No Abnormality Appearance) (Pt Warm) -Tenderness on Palpation (Cyndy-wound No Skin Appearance) -Ulcer Cleansing Wound Cleanser -Foul Odor after Cleansing No -Anesthetic Used 4% Lidocaine Solution [Edema Assessment] -Lower Limb Edema Present Yes -Right Calf (cm) 34.0 -Right Ankle (cm) 24.3 -Left Calf (cm) 45.8 -Left Ankle (cm) 46.0 WC - Nurse 2 - General Ulcer CM Notes Start: 05/23/18 08:55 Freq: Status: Active Protocol: Activity Type Activity Date Activity User E-Sign Co-Sign Detail Recorded Client Recorded Date Recorded By Document 06/13/18 09:12 [id number] 06/13/18 09:26 06/13/18 09:12 Wound Center Nurse 2 [Procedure/Treatment] #6 L Christensen -Time 09:23 -Correct Patient Yes -Correct Side, Site, Position Yes -Correct Procedure Yes -Procedure Performed Yes -Type of Procedure Debridement -Clinical Debridement Subcutaneous -Post Debridement Size (cm) - Length 21.6 -Post Debridement Size (cm) - Width 8.0 -Post Debridement Size (cm) - Depth 0.3 -Total Square Cm 172.80 -Wound/Ulcer Outcome Not Healed -Ulcer Cleansing Rinsed/ Irrigated with Saline -Foul Odor after Cleansing No -Bioengineered Tissue No -Topical Lidocaine (%) 4 -Bleeding Controlled with Pressure -Treatment Response Procedure Not Tolerated Well #5 LLE Post -Time 09:25 -Correct Patient Yes -Correct Side, Site, Position Yes -Correct Procedure Yes -Procedure Performed Yes -Type of Procedure Debridement -Clinical Debridement Subcutaneous -Post Debridement Size (cm) - Length 4.1 -Post Debridement Size (cm) - Width 2.8 -Post Debridement Size (cm) - Depth 0.2 -Total Square Cm 11.48 -Wound/Ulcer Outcome Not Healed -Ulcer Cleansing Rinsed/ Irrigated with Saline -Foul Odor after Cleansing No -Bioengineered Tissue No -Topical Lidocaine (%) 4 -Bleeding Controlled with Pressure -Treatment Response Procedure Tolerated Well [See Physician Procedure note for Specifics] Pain Scale: 0-10 Numeric [Pain] -Is Patient Pain Free? Yes Musculoskeletal: No Tenderness to Palpation of Joints or Extremities, Muscle Wasting, Tenderness - Pain with debridement noted Neurological: - - Lack of normal epicritic sensation light touch Psych/Mental Status: Normal Affect, Appropriate Debridement Note Post-Debridement Measurements/Treatment WC - Nurse 2 - General Ulcer CM Notes Start: 05/23/18 08:55 Freq: Status: Active Protocol: Activity Type Activity Date Activity User E-Sign Co-Sign Detail Recorded Client Recorded Date Recorded By Document 05/23/18 09:51 TM [id number] 05/23/18 09:57 TM Document 05/30/18 09:41 TM [id number] 05/30/18 09:43 TM Document 06/06/18 09:04 DL [id number] 06/06/18 09:12 DL Document 06/13/18 09:12 TM [id number] 06/13/18 09:26 TM 05/23/18 05/30/18 06/06/18 09:51 09:41 09:04 Wound Center Nurse 2 #6 L Christensen -Time 09:56 09:41 09:04 -Correct Patient Yes Yes Yes -Correct Side, Site, Position Yes Yes Yes -Correct Procedure Yes Yes Yes -Procedure Performed Yes Yes Yes -Type of Procedure Debridement Debridement Debridement -Clinical Debridement Subcutaneous Subcutaneous Subcutaneous Muscle -Post Debridement Size (cm) - Length 20.1 21.6 21.3 -Post Debridement Size (cm) - Width 11.8 8.7 11.1 -Post Debridement Size (cm) - Depth 0.3 0.3 0.4 -Total Square Cm 237.18 187.92 236.43 -Wound/Ulcer Outcome Not Healed Not Healed Not Healed -Ulcer Cleansing Rinsed/ Rinsed/ Rinsed/ Irrigated with Irrigated with Irrigated with Saline Saline Saline -Foul Odor after Cleansing No No No -Bioengineered Tissue No No No -Topical Lidocaine (%) 4 5 -Bleeding Controlled with Pressure Pressure Pressure -Treatment Response Procedure Procedure Procedure Tolerated Well Tolerated Well Tolerated Well #5 LLE Post -Time 09:56 09:42 09:04 -Correct Patient Yes Yes Yes -Correct Side, Site, Position Yes Yes Yes -Correct Procedure Yes Yes Yes -Procedure Performed Yes Yes Yes -Type of Procedure Debridement Debridement Debridement -Clinical Debridement Subcutaneous Subcutaneous Subcutaneous -Post Debridement Size (cm) - Length 8.6 8.1 7 -Post Debridement Size (cm) - Width 2.6 2.4 2.3 -Post Debridement Size (cm) - Depth 0.2 0.2 0.4 -Total Square Cm 22.36 19.44 16.1 -Wound/Ulcer Outcome Not Healed Not Healed Not Healed -Ulcer Cleansing Rinsed/ Rinsed/ Rinsed/ Irrigated with Irrigated with Irrigated with Saline Saline Saline -Foul Odor after Cleansing No No No -Bioengineered Tissue No No No -Topical Lidocaine (%) 4 5 -Bleeding Controlled with Pressure Pressure Pressure -Treatment Response Procedure Procedure Procedure Tolerated Well Tolerated Well Tolerated Well Pain Scale: 0-10 Numeric Is Patient Pain Free? Yes Yes Yes 06/13/18 09:12 Wound Center Nurse 2 #6 L Christensen -Time 09:23 -Correct Patient Yes -Correct Side, Site, Position Yes -Correct Procedure Yes -Procedure Performed Yes -Type of Procedure Debridement -Clinical Debridement Subcutaneous -Post Debridement Size (cm) - Length 21.6 -Post Debridement Size (cm) - Width 8.0 -Post Debridement Size (cm) - Depth 0.3 -Total Square Cm 172.80 -Wound/Ulcer Outcome Not Healed -Ulcer Cleansing Rinsed/ Irrigated with Saline -Foul Odor after Cleansing No -Bioengineered Tissue No -Topical Lidocaine (%) 4 -Bleeding Controlled with Pressure -Treatment Response Procedure Not Tolerated Well #5 LLE Post -Time 09:25 -Correct Patient Yes -Correct Side, Site, Position Yes -Correct Procedure Yes -Procedure Performed Yes -Type of Procedure Debridement -Clinical Debridement Subcutaneous -Post Debridement Size (cm) - Length 4.1 -Post Debridement Size (cm) - Width 2.8 -Post Debridement Size (cm) - Depth 0.2 -Total Square Cm 11.48 -Wound/Ulcer Outcome Not Healed -Ulcer Cleansing Rinsed/ Irrigated with Saline -Foul Odor after Cleansing No -Bioengineered Tissue No -Topical Lidocaine (%) 4 -Bleeding Controlled with Pressure -Treatment Response Procedure Tolerated Well Pain Scale: 0-10 Numeric Is Patient Pain Free? Yes Wound debrided: anterior leg Laterality: Left Type of Debridement: Excisional debridement Anesthesia Used: 4% Lidocaine Solution Depth: in the subcutaneous layer Percentage of wound debrided: 40 Instrument Used: #15 blade Tissue Removed: fibrous, devitalized subcutaneous, biofilm, slough Severity: Fat Layer Exposed Amount of bleeding with debridement: Mild Bleeding Controlled with: Pressure Patient tolerated procedure well - Additional Wound Wound debrided: posterior leg Laterality: Left Type of Debridement: Excisional debridement Anesthesia Used: 4% Lidocaine Solution Depth: in the subcutaneous layer Percentage of wound debrided: 100 Instrument Used: #15 blade Tissue Removed: fibrous, devitalized subcutaneous, biofilm, slough Severity: Fat Layer Exposed Amount of bleeding with debridement: Mild Bleeding Controlled with: Pressure Patient tolerated procedure: Patient tolerated procedure well Assessment/Plan Clinical Impression(s) from Imaging Studies Tibia/Fibula X-Ray 06/06/18 15:50 IMPRESSION: Ulcerated soft tissue wound as well as osseous changes consistent with active tibial osteomyelitis of the mid to distal third of the left lower leg. Electronically Signed: Torsten Walden MD at 19:58 EDT , Service support , Assessment: Left lower leg ulcer-anterior (tendon exposed) and posterior (subcutaneous tissue exposed) now s/p advanced wound product application. Osteomyelitis left tibia. Peripheral vascular disease. 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 Bilateral lower leg edema swelling increased in the left leg. Neuropathy lower extremities. Atrial fibrillation. Non compliance. Venous insufficiency. Left acute DVT has been ruled out Plan: I reviewed and discussed his care plan. Subcutaneous debridement was performed as noted in the clinical panel and he tolerated this well. To wash leg daily with gentle Dial soap and water. To change the dressing with Adaptic and Aquacel Ag. He has continued deterioration and worsening ulcer status. His leg x-rays demonstrated progressive osteolysis of his left tibia consistent with osteomyelitis. His recent lab work was also reviewed from the including white blood cell count 11.3, ESR 78, C-reactive protein 34.2. He was advised to elevate his limb at least 20 min/hour. to follow-up with vascular surgery as advised. He is scheduled for July 11, 2018. I urged him to seek a sooner follow-up and he will try to see if he can get a ride to another office location. He had previous noninvasive vascular studies performed at [facility] in July 2016 with left ankle-brachial index of 0.5 to and biphasic PT and DP waveforms. He previously saw Dr. Maloney and mainly addressed venous insufficiency issues. He was also seen for arterial disease and he reports he had other vascular evaluations performed with Dr. Maloney at an outside facility as well as the [facility]. Medical records will be requested again; I would like to review this in full detail to see if additional noninvasive studies are warranted at this time. His previous venous Doppler results were reviewed and were negative for deep venous thrombosis. He was advised to monitor this and he demonstrates understanding. To continue nutritional supplementation optimize healing. To continue with Tubigrip compression to decrease leg edema. Infectious disease is also helping manage this case and he was seen today by Dr. Moya. A 6-week course of IV antibiotics will be reinitiated and he will need lab work reassessed approximately every 2 weeks. I recommend orthopedic surgical referral for bone debridement and biopsy versus amputation. His continued response and vascular status will help make this decision. Bone resection at this level is not currently in my podiatric scope of practice and I will help set this referral up for him. To return to clinic in 1 week or call sooner if he has any questions or concerns. His advanced wound care product application and ulcer debridement will be tentatively canceled for the operating room. He understands his delay in completing treatment recommendations is compromising his care plan and his ability to salvage his limb. I answered all of his questions.
--- NOTE | 2018-06-13 13:36 | PCM.PN.ID ---
Subjective: Feeling ok, no pain in leg. No fever. Xray done recently. Off abx for 1-2 weeks, leg relatively stable. No side effects with recent abx. - Physical Exam General: Alert, Cooperative, No apparent distress Lungs: Clear to auscultation, Normal air movement Cardiovascular: Regular rate, Regular Rhythm Abdomen: Soft, Non Tender, Non-Distended Skin: Ulcer/ Wound - L ray ulcer, deep Vital Signs Temp Pulse Resp BP 98.2 F 126 H 18 104/65 06/13/18 08:59 06/13/18 08:59 06/13/18 08:59 06/13/18 08:59 Oxygen Delivery Method Room Air Weight: 225 kg Body Mass Index (BMI) 65.4 Medical Necessity - Tobacco Use Smoking Status: Former smoker Tobacco Use: Non-smoker Route of nutrition/ use of supplements: [] Nutritional Intake: [] IV Site: [] [place] Catheter: [] - Assessment/Plan Antibiotics: [] Assessment/Plan: [] L tibial osteo with PAD and chronic ulcer - xray now with tibial ulcer. Recent wound cx with burkholderia and corynebacterium. Will need ortho referral. Seeing Dr. Maloney as outpt. May need surgical debridement vs amputation. Leg much worse over past few months. Will restart cipro/doxy for 6 week course based on recent cx results. Check basic labs in 2 weeks for monitoring. Will follow, d/w Dr. Cleary.
--- NOTE | 2018-06-27 11:38 | LEAS ---
Arterial Study - Arterial Study Arterial Study: Date of scan 06/20/[address] Maloney History: Left lower extremity ulceration with PVD ADD. Interpretation: Right lower extremity with decreased waveform noted from the low thigh down to the calf ankle out through the digits segmental pressures are already decreased at the low thigh at 0.79 maintained through the calf and at the PT 0.52 DP 0.56 with monophasic flow of both vessels. Left lower extremity again with decreased waveform noted from the low thigh down to the calf ankle and up to the digits segmental pressures decreased at the low thigh at 0.64 to the calf at 0.5 to, and then PT 0.49 DP 0.45. Again monophasic flow noted at both vessels at the ankle. Impression: 1. 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 2. Left lower extremity with moderate arterial occlusive disease with an PEREZ 0.49. Suggestive of either aortoiliac or iliofemoral occlusive disease.
== END 2018-06-17 23:59 ==
LOC: WC 08:30
PROVIDERS: Family Provider Internal Medicine; PCP Internal Medicine; Visit Provider Podiatrist
DX: I87.2 Venous insufficiency (chronic) (peripheral) (principal); L97.822 Non-pressure chronic ulcer of other part of left lower leg with fat layer exposed; I73.9 Peripheral vascular disease, unspecified; Z86.14 Personal history of Methicillin resistant Staphylococcus aureus infection; Z86.718 Personal history of other venous thrombosis and embolism; I50.22 Chronic systolic (congestive) heart failure; I48.91 Unspecified atrial fibrillation; Z87.891 Personal history of nicotine dependence
CPT/HCPCS: 11042; 11045; 36415; 73590; 85025; 85652; 86140; 99213; G0463

== ENCOUNTER → 2018-07-13 13:51 | Outpatient (CLI) | payer MEDICARE, OTHER, SELFPAY ==
[2018-07-13 15:09] LABS: Creatinine, Serum 0.86 mg/dL (0.70-1.30); EST Glomerular Filtration Rate 92 mL/min (>60); Est Glom Filt Rate - Afr Amer 111 mL/min (>60)
== END ==
PROVIDERS: Family Provider Internal Medicine; PCP Internal Medicine; Referring Provider Surgery Vascular Surgery; Visit Provider Surgery Vascular Surgery
DX: Z01.812 Encounter for preprocedural laboratory examination (principal); I70.239 Atherosclerosis of native arteries of right leg with ulceration of unspecified site
CPT/HCPCS: 36415; 82565

== ENCOUNTER 2018-07-18 08:30 | Outpatient (RCR) | payer MEDICARE, OTHER, SELFPAY ==
[2018-06-18 00:34] VITALS: BP 104/65; PULSE 126; RESP 18; TEMP 36.8; BMI 65.4
[2018-06-20 15:55] VITALS: BP 91/52; PULSE 131; RESP 18; TEMP 37.7; BMI 65.4
--- NOTE | 2018-06-20 17:13 | PN.PCM_ITS ---
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 Status: Chronic Qualifiers: Laterality: left Qualified Code(s): L97.923 - Non-pressure chronic ulcer of unspecified part of left lower leg with necrosis of muscle Code(s): L97.903 - Non-pressure chronic ulcer of unspecified part of unspecified lower leg with necrosis of muscle (4) 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 Status: Chronic Qualifiers: Laterality: left Qualified Code(s): L97.922 - Non-pressure chronic ulcer of unspecified part of left lower leg with fat layer exposed Code(s): L97.902 - Non-pressure chronic ulcer of unspecified part of unspecified lower leg with fat layer exposed (5) Delayed wound healing Status: Chronic Code(s): T14.8XXD - Other injury of unspecified body region, subsequent encounter (6) Peripheral vascular disease of extremity with claudication Status: Chronic Code(s): I73.9 - Peripheral vascular disease, unspecified Type of Wound Date of Service: 06/20/18 Chief Complaint: Follow-up on left lower leg ulcers History of Wound: 77-year-old male who had surgery with Dr. Maloney in July for his small vessel occlusions in the left leg and venous insufficiency. He follows up today for two chronic non healing left left lower extremity wounds. He denies fever, chill, nausea, vomiting, loss of appetite, odor, streaking to t he leg. He denies new redness or increased swelling. He denies pain. He completed the non invasive vascular study update and is scheduled to see ortho later this week. Progress of Wound: worse - Physical Exam Vital Signs Temp Pulse Resp BP 99.9 F H 131 H 18 91/52 L 06/20/18 15:55 06/20/18 15:55 06/20/18 15:55 06/20/18 15:55 General: Alert, Oriented x3, Cooperative HEENT: Atraumatic Extremities: No Calf Tenderness - negative rima and celeste bilateral, Diminished Peripheral Pulses - non palpble pt/dp left, Edema - mild to moderate left lower leg, Tenderness - wound manipulation and there is exposed tibia bone, - Skin: Ulcer/ Wound - no purulence, no erythema, no streaking, no foreign body. there is exposed tibia that is now discolored and loss of cortical boundry. the ulcer site has fibrous tissue, exposed tendon, biofilm, and some subcutaneous tissue also., - - the peripheral ulcer skin is hairless and atrophic. the tendon exposed is necrotic and devitalized Wound Measurements and Assessment WC - Nurse 1 - General Ulcer Measurement Start: 06/20/18 15:54 Freq: Status: Active Protocol: Activity Type Activity Date Activity User E-Sign Co-Sign Detail Recorded Client Recorded Date Recorded By Document 06/20/18 15:55 DV [id number] 06/20/18 16:09 DV 06/20/18 15:55 Wound Center Nurse 1 [Ulcer Assessment] #6 L Christensen -Combined with other wound No -Current Size (cm) - Length 22.7 -Current Size (cm) - Width 8.5 -Current Size (cm) - Depth 0.3 -Total Square Cm 192.95 -Photo Taken No -Epithelialization None Present -Tunneling No -Undermining/Tunneling No -Circular Undermining No -Classification - Thickness Full Thickness with Exposed Support Structure -Exudate Amt Large (67-100%) -Exudate Type Yellow/Green -Wound Margin Distinct, Outline Attached -Granulation Amt None Present (0 %) -Granulation Quality N/A -Slough/Fibrin Yes -Necrosis Amt Large (67-100%) -Necrotic Tissue Type Adherent Slough -Structure Exposed Tendon Fascia Muscle Bone Fat Layer Exposed -Texture (Cyndy-wound Skin Appearance) Assessed Localized Edema Scarring -Moisture (Cyndy-wound Skin Appearance Assessed ) Weeping -Color (Cyndy-wound Skin Appearance) Assessed -Temperature (Cyndy-wound Skin No Abnormality Appearance) (Pt Warm) -Tenderness on Palpation (Cyndy-wound No Skin Appearance) -Ulcer Cleansing Rinsed/ Irrigated with Saline -Foul Odor after Cleansing No -Anesthetic Used 5% Lidocaine Gel #5 LLE Post -Combined with other wound No -Current Size (cm) - Length 3.2 -Current Size (cm) - Width 2.4 -Current Size (cm) - Depth 0.2 -Total Square Cm 7.68 -Photo Taken No -Epithelialization None Present -Tunneling No -Undermining/Tunneling No -Circular Undermining No -Classification - Thickness Full Thickness without Exposed Support Structure -Exudate Amt None Present (0 %) -Wound Margin Distinct, Outline Attached -Granulation Amt None Present (0 %) -Granulation Quality N/A -Slough/Fibrin No -Necrosis Amt Large (67-100%) -Necrotic Tissue Type Necrosis of Muscle -Structure Exposed None/Limited to Skin Breakdown -Texture (Cyndy-wound Skin Appearance) Assessed Localized Edema -Moisture (Cyndy-wound Skin Appearance Assessed ) Dry/Scaly -Color (Cyndy-wound Skin Appearance) Assessed -Temperature (Cyndy-wound Skin No Abnormality Appearance) (Pt Warm) -Tenderness on Palpation (Cyndy-wound No Skin Appearance) -Ulcer Cleansing Rinsed/ Irrigated with Saline -Foul Odor after Cleansing No -Anesthetic Used 5% Lidocaine Gel [Edema Assessment] -Lower Limb Edema Present Yes -Right Calf (cm) 36.2 -Right Ankle (cm) 29.0 -Left Calf (cm) 52.9 -Left Ankle (cm) 32.5 WC - Nurse 2 - General Ulcer CM Notes Start: 06/20/18 15:54 Freq: Status: Active Protocol: Activity Type Activity Date Activity User E-Sign Co-Sign Detail Recorded Client Recorded Date Recorded By Document 06/20/18 16:32 [id number] 06/20/18 16:36 06/20/18 16:32 Wound Center Nurse 2 [Procedure/Treatment] #6 L Christensen -Time 16:33 -Correct Patient Yes -Correct Side, Site, Position Yes -Correct Procedure Yes -Procedure Performed Yes -Type of Procedure Debridement -Clinical Debridement Muscle -Post Debridement Size (cm) - Length 22.8 -Post Debridement Size (cm) - Width 8.6 -Post Debridement Size (cm) - Depth 0.3 -Total Square Cm 196.08 -Wound/Ulcer Outcome Not Healed -Ulcer Cleansing Rinsed/ Irrigated with Saline -Foul Odor after Cleansing No -Bioengineered Tissue No -Topical Lidocaine (%) 4 -Bleeding Controlled with Pressure -Treatment Response Procedure Tolerated Well #5 LLE Post -Time 16:33 -Correct Patient Yes -Correct Side, Site, Position Yes -Correct Procedure Yes -Procedure Performed Yes -Type of Procedure Debridement -Clinical Debridement Subcutaneous -Post Debridement Size (cm) - Length 3.3 -Post Debridement Size (cm) - Width 2.2 -Post Debridement Size (cm) - Depth 0.2 -Total Square Cm 7.26 -Wound/Ulcer Outcome Not Healed -Ulcer Cleansing Rinsed/ Irrigated with Saline -Foul Odor after Cleansing No -Bioengineered Tissue No -Topical Lidocaine (%) 4 -Bleeding Controlled with Pressure -Treatment Response Procedure Tolerated Well [See Physician Procedure note for Specifics] Pain Scale: 0-10 Numeric [Pain] -Is Patient Pain Free? Yes Musculoskeletal: No Tenderness to Palpation of Joints or Extremities, Muscle Wasting, - - compartment soft left lower extremity Neurological: - - altered sensation via light touch left lower extremity Psych/Mental Status: Normal Affect, Appropriate Debridement Note Post-Debridement Measurements/Treatment WC - Nurse 2 - General Ulcer CM Notes Start: 06/20/18 15:54 Freq: Status: Active Protocol: Activity Type Activity Date Activity User E-Sign Co-Sign Detail Recorded Client Recorded Date Recorded By Document 06/20/18 16:32 [id number] 06/20/18 16:36 06/20/18 16:32 Wound Center Nurse 2 #6 L Christensen -Time 16:33 -Correct Patient Yes -Correct Side, Site, Position Yes -Correct Procedure Yes -Procedure Performed Yes -Type of Procedure Debridement -Clinical Debridement Muscle -Post Debridement Size (cm) - Length 22.8 -Post Debridement Size (cm) - Width 8.6 -Post Debridement Size (cm) - Depth 0.3 -Total Square Cm 196.08 -Wound/Ulcer Outcome Not Healed -Ulcer Cleansing Rinsed/ Irrigated with Saline -Foul Odor after Cleansing No -Bioengineered Tissue No -Topical Lidocaine (%) 4 -Bleeding Controlled with Pressure -Treatment Response Procedure Tolerated Well #5 LLE Post -Time 16:33 -Correct Patient Yes -Correct Side, Site, Position Yes -Correct Procedure Yes -Procedure Performed Yes -Type of Procedure Debridement -Clinical Debridement Subcutaneous -Post Debridement Size (cm) - Length 3.3 -Post Debridement Size (cm) - Width 2.2 -Post Debridement Size (cm) - Depth 0.2 -Total Square Cm 7.26 -Wound/Ulcer Outcome Not Healed -Ulcer Cleansing Rinsed/ Irrigated with Saline -Foul Odor after Cleansing No -Bioengineered Tissue No -Topical Lidocaine (%) 4 -Bleeding Controlled with Pressure -Treatment Response Procedure Tolerated Well Pain Scale: 0-10 Numeric Is Patient Pain Free? Yes Wound debrided: leg Laterality: Left - posterior Type of Debridement: Excisional debridement Anesthesia Used: 4% Lidocaine Solution Depth: in the subcutaneous layer Percentage of wound debrided: 100 Instrument Used: #15 blade Tissue Removed: fibrous, devitalized subcutaneous, biofilm, slough Severity: Fat Layer Exposed Amount of bleeding with debridement: Mild Bleeding Controlled with: Pressure Patient tolerated procedure well - Additional Wound Wound debrided: leg anterior Laterality: Left Type of Debridement: Excisional debridement Anesthesia Used: 4% Lidocaine Solution Depth: to muscle Percentage of wound debrided: 10 Instrument Used: #15 blade, Forceps Amount of bleeding with debridement: Mild - fibrous, devitalized subcutaneous, biofilm, slough Bleeding Controlled with: Pressure Patient tolerated procedure: Patient tolerated procedure well Assessment/Plan Assessment: Left lower leg ulcer-anterior (tendon exposed) and posterior (subcutaneous tissue exposed). Osteomyelitis left tibia. Peripheral vascular disease. 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 Bilateral lower leg edema swelling increased in the left leg. Neuropathy lower extremities. Atrial fibrillation. Non compliance. Venous insufficiency. Left acute DVT has been ruled out Plan: I reviewed and discussed his care plan. Subcutaneous and necrotic muscle/tendon debridement was performed as noted in the clinical panel and he tolerated this well. To wash leg daily with gentle Dial soap and water. To change the dressing with Adaptic and Aquacel Ag. He has continued deterioration and worsening ulcer status. His leg x-rays demonstrated progressive osteolysis of his left tibia consistent with osteomyelitis. His recent lab work was also reviewed from the including white blood cell count 11.3, ESR 78, C-reactive protein 34.2. He was advised to elevate his limb at least 20 min/hour. to follow-up with vascular surgery as advised. He is scheduled for July 11, 2018. I urged him to seek a sooner follow-up and he will try to see if he can get a ride to another office location. He had recent updated noninvasive vascular studies performed at [facility] with bilateral dp and pt monophasic waveforms and right manpreet of 0.56 an left of 0.49. He was also seen for arterial disease and he reports he had other vascular evaluations performed with Dr. Maloney at an outside facility as well as the [facility]. His previous venous Doppler results were reviewed and were negative for deep venous thrombosis. He was advised to monitor this and he demonstrates understanding. To continue nutritional supplementation optimize healing. To continue with Tubigrip compression to decrease leg edema. Infectious disease is also helping manage this case and he was seen previously by Dr. Moya. A 6-week course of IV antibiotics will be reinitiated and he will need lab work reassessed approximately every 2 weeks. I recommend orthopedic surgical referral for bone debridement and biopsy versus amputation. His continued response and vascular status will help make this decision. Bone resection at this level is not currently in my podiatric scope of practice and I will help set this referral up for him. This case was discussed with Dr. Grier and recommendations are pending. To return to clinic in 1 week or call sooner if he has any questions or concerns. His advanced wound care product application and ulcer debridement is canceled and not appropriate at this time. He understands his delay in completing treatment recommendations is compromising his care plan and his ability to salvage his limb. I answered all of his questions.
[2018-06-27 08:32] VITALS: BP 101/67; PULSE 131; RESP 20; TEMP 37.6; BMI 65.4
--- NOTE | 2018-06-27 10:16 | PCM.WC.PN ---
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: Chronic Current Visit: Yes Qualifiers: Laterality: left Qualified Code(s): L97.923 - Non-pressure chronic ulcer of unspecified part of left lower leg with necrosis of muscle Code(s): L97.903 - Non-pressure chronic ulcer of unspecified part of unspecified lower leg with necrosis of muscle (4) 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 Status: Chronic Current Visit: Yes Qualifiers: Laterality: left Qualified Code(s): L97.922 - Non-pressure chronic ulcer of unspecified part of left lower leg with fat layer exposed Code(s): L97.902 - Non-pressure chronic ulcer of unspecified part of unspecified lower leg with fat layer exposed (5) Delayed wound healing Status: Chronic Current Visit: No Code(s): T14.8XXD - Other injury of unspecified body region, subsequent encounter (6) Peripheral vascular disease of extremity with claudication Status: Chronic Current Visit: No Code(s): I73.9 - Peripheral vascular disease, unspecified Type of Wound Date of Service: 06/27/18 Chief Complaint: Follow-up on left lower leg ulcers History of Wound: 77-year-old male who had surgery with Dr. Maloney in July for his small vessel occlusions in the left leg and venous insufficiency follows up today for two chronic non healing left left lower extremity wounds. He denies fever, chill, nausea, vomiting, loss of appetite, odor, streaking to the leg. He denies new redness or increased swelling. He denies pain. He saw Dr. Grier, orthopedic surgeon, who recommended vascular reconstruction versus above-knee amputation. Serial evaluation with Dr. Maloney for arterial evaluation is pending. He is taking antibiotics as prescribed twice daily for treatment of MRSA. He denies injuries or increased pain to the left leg. Progress of Wound: Stable - Physical Exam Vital Signs Temp Pulse Resp BP 99.7 F H 131 H 20 H 101/67 06/27/18 08:32 06/27/18 08:32 06/27/18 08:32 06/27/18 08:32 General: Alert, Oriented x3, Cooperative Extremities: No cyanosis, Capillary Refill Less than 3 Seconds, No Calf Tenderness - Negative Travon and Araya sign bilateral, Diminished Peripheral Pulses, Edema - Left lower extremity Skin: Ulcer/ Wound - No purulence, erythema, streaking, or odor today left leg. There is still exposed bone and tendon and there is no reduction in ulcer size to both sites in the left leg. The peripheral skin is hairless and atrophic. Wound Measurements and Assessment WC - Nurse 1 - General Ulcer Measurement Start: 06/20/18 15:54 Freq: Status: Active Protocol: Activity Type Activity Date Activity User E-Sign Co-Sign Detail Recorded Client Recorded Date Recorded By Document 06/27/18 08:32 DL [id number] 06/27/18 08:41 DL 06/27/18 08:32 Wound Center Nurse 1 [Ulcer Assessment] #6 L Christensen -Combined with other wound No -Current Size (cm) - Length 23 -Current Size (cm) - Width 11.3 -Current Size (cm) - Depth 0.4 -Total Square Cm 259.9 -Photo Taken No -Epithelialization None Present -Tunneling No -Undermining/Tunneling No -Circular Undermining No -Classification - Thickness Full Thickness with Exposed Support Structure -Change in Wound Grade/Stage No Query Text:If change please identify the Stage/Grade in the comment (ie. S2 G3) -Exudate Amt Large (67-100%) -Exudate Type Serosanguineous -Wound Margin Distinct, Outline Attached -Granulation Amt Small (1-33%) -Granulation Quality [place] -Slough/Fibrin Yes -Necrosis Amt Large (67-100%) -Necrotic Tissue Type Adherent Slough -Structure Exposed Bone -Texture (Cyndy-wound Skin Appearance) Assessed Localized Edema -Moisture (Cyndy-wound Skin Appearance No Abnormality ) Assessed -Color (Cyndy-wound Skin Appearance) Assessed Erythema Hemosiderin Staining -Temperature (Cyndy-wound Skin No Abnormality Appearance) (Pt Warm) -Tenderness on Palpation (Cyndy-wound No Skin Appearance) -Ulcer Cleansing Wound Cleanser -Foul Odor after Cleansing No -Anesthetic Used 4% Lidocaine Solution #5 LLE Post -Combined with other wound No -Current Size (cm) - Length 6.6 -Current Size (cm) - Width 5 -Current Size (cm) - Depth 0.4 -Total Square Cm 33.0 -Photo Taken No -Epithelialization None Present -Tunneling No -Undermining/Tunneling No -Circular Undermining No -Classification - Thickness Full Thickness without Exposed Support Structure -Change in Wound Grade/Stage No Query Text:If change please identify the Stage/Grade in the comment (ie. S2 G3) -Exudate Amt Large (67-100%) -Exudate Type Serous -Wound Margin Distinct, Outline Attached -Granulation Amt Small (1-33%) -Granulation Quality [place] -Slough/Fibrin Yes -Necrotic Tissue Type Adherent Slough -Structure Exposed Fat Layer Exposed -Texture (Cyndy-wound Skin Appearance) Assessed Localized Edema -Moisture (Cyndy-wound Skin Appearance No Abnormality ) Assessed -Color (Cyndy-wound Skin Appearance) Assessed Erythema Hemosiderin Staining -Temperature (Cyndy-wound Skin No Abnormality Appearance) (Pt Warm) -Tenderness on Palpation (Cyndy-wound No Skin Appearance) -Ulcer Cleansing Wound Cleanser -Foul Odor after Cleansing No -Anesthetic Used 4% Lidocaine Solution [Edema Assessment] -Lower Limb Edema Present No -Left Calf (cm) 45 -Left Ankle (cm) 26.4 WC - Nurse 2 - General Ulcer CM Notes Start: 06/20/18 15:54 Freq: Status: Active Protocol: Activity Type Activity Date Activity User E-Sign Co-Sign Detail Recorded Client Recorded Date Recorded By Document 06/27/18 08:57 [id number] 06/27/18 09:00 06/27/18 08:57 Wound Center Nurse 2 [Procedure/Treatment] #6 L Christensen -Time 08:58 -Correct Patient Yes -Correct Side, Site, Position Yes -Correct Procedure Yes -Procedure Performed Yes -Type of Procedure Debridement -Clinical Debridement Selective -Post Debridement Size (cm) - Length 23.1 -Post Debridement Size (cm) - Width 11.4 -Post Debridement Size (cm) - Depth 0.4 -Total Square Cm 263.34 -Wound/Ulcer Outcome Not Healed -Ulcer Cleansing Rinsed/ Irrigated with Saline -Foul Odor after Cleansing No -Bioengineered Tissue No -Topical Lidocaine (%) 4 -Bleeding Controlled with Pressure -Treatment Response Procedure Tolerated Well #5 LLE Post -Time 08:59 -Correct Patient Yes -Correct Side, Site, Position Yes -Correct Procedure Yes -Procedure Performed Yes -Clinical Debridement Selective -Post Debridement Size (cm) - Length 6.7 -Post Debridement Size (cm) - Width 5.1 -Post Debridement Size (cm) - Depth 0.4 -Total Square Cm 34.17 -Wound/Ulcer Outcome Not Healed -Ulcer Cleansing Rinsed/ Irrigated with Saline -Foul Odor after Cleansing No -Bioengineered Tissue No -Topical Lidocaine (%) 4 -Bleeding Controlled with Pressure -Treatment Response Procedure Tolerated Well [See Physician Procedure note for Specifics] Pain Scale: 0-10 Numeric [Pain] -Is Patient Pain Free? Yes Musculoskeletal: No Tenderness to Palpation of Joints or Extremities, Muscle Wasting, - - Compartments remain soft left lower extremity Neurological: - - Lack of normal epicritic sensation to light touch and with wound debridement left leg Psych/Mental Status: Normal Affect, Appropriate Debridement Note Post-Debridement Measurements/Treatment WC - Nurse 2 - General Ulcer CM Notes Start: 06/20/18 15:54 Freq: Status: Active Protocol: Activity Type Activity Date Activity User E-Sign Co-Sign Detail Recorded Client Recorded Date Recorded By Document 06/20/18 16:32 [id number] 06/20/18 16:36 TM Document 06/27/18 08:57 [id number] 06/27/18 09:00 TM 06/20/18 06/27/18 16:32 08:57 Wound Center Nurse 2 #6 L Christensen -Time 16:33 08:58 -Correct Patient Yes Yes -Correct Side, Site, Position Yes Yes -Correct Procedure Yes Yes -Procedure Performed Yes Yes -Type of Procedure Debridement Debridement -Clinical Debridement Muscle Selective -Post Debridement Size (cm) - Length 22.8 23.1 -Post Debridement Size (cm) - Width 8.6 11.4 -Post Debridement Size (cm) - Depth 0.3 0.4 -Total Square Cm 196.08 263.34 -Wound/Ulcer Outcome Not Healed Not Healed -Ulcer Cleansing Rinsed/ Rinsed/ Irrigated with Irrigated with Saline Saline -Foul Odor after Cleansing No No -Bioengineered Tissue No No -Topical Lidocaine (%) 4 4 -Bleeding Controlled with Pressure Pressure -Treatment Response Procedure Procedure Tolerated Well Tolerated Well #5 LLE Post -Time 16:33 08:59 -Correct Patient Yes Yes -Correct Side, Site, Position Yes Yes -Correct Procedure Yes Yes -Procedure Performed Yes Yes -Type of Procedure Debridement -Clinical Debridement Subcutaneous Selective -Post Debridement Size (cm) - Length 3.3 6.7 -Post Debridement Size (cm) - Width 2.2 5.1 -Post Debridement Size (cm) - Depth 0.2 0.4 -Total Square Cm 7.26 34.17 -Wound/Ulcer Outcome Not Healed Not Healed -Ulcer Cleansing Rinsed/ Rinsed/ Irrigated with Irrigated with Saline Saline -Foul Odor after Cleansing No No -Bioengineered Tissue No No -Topical Lidocaine (%) 4 4 -Bleeding Controlled with Pressure Pressure -Treatment Response Procedure Procedure Tolerated Well Tolerated Well Pain Scale: 0-10 Numeric Is Patient Pain Free? Yes Yes Wound debrided: leg anterior Laterality: Left Type of Debridement: Selective debridement Anesthesia Used: 4% Lidocaine Solution Depth: Down to and including healthy tissue Percentage of wound debrided: 100 Instrument Used: #15 blade Tissue Removed: fibrous, devitalized superficial tissue, biofilm, slough Severity: Limited To Skin Breakdown Amount of bleeding with debridement: Mild Bleeding Controlled with: Pressure Patient tolerated procedure well - Additional Wound Wound debrided: leg posterior Laterality: Left Type of Debridement: Excisional debridement Anesthesia Used: 4% Lidocaine Solution Depth: Down to and including healthy tissue Percentage of wound debrided: 100 Instrument Used: #15 blade Tissue Removed: fibrous, devitalized superficial tissue, biofilm, slough Severity: Limited To Skin Breakdown Amount of bleeding with debridement: Mild Bleeding Controlled with: Pressure Patient tolerated procedure: Patient tolerated procedure well Assessment/Plan Active Problems Osteomyelitis of left tibia (Acute) 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 Osteomyelitis left tibia. Peripheral vascular disease. 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 Bilateral lower leg edema swelling increased in the left leg. Neuropathy lower extremities. Atrial fibrillation. Non compliance. Venous insufficiency. Left acute DVT has been ruled out Plan: I reviewed and discussed his care plan. Selective debridement was performed as noted in the clinical panel and he tolerated this well. To wash leg daily with gentle Dial soap and water. To change the dressing with Adaptic and Aquacel Ag. He has continued deterioration and worsening ulcer status. His leg x-rays demonstrated progressive osteolysis of his left tibia consistent with osteomyelitis. His recent lab work was also reviewed from the including white blood cell count 11.3, ESR 78, C-reactive protein 34.2. He was advised to elevate his limb at least 20 min/hour. To follow-up with vascular surgery as advised. He is scheduled for July 11, 2018. I urged him to seek a sooner follow-up and he will try to see if he can get a ride to another office location. He had recent updated noninvasive vascular studies performed at [facility] with bilateral dp and pt monophasic waveforms and right manpreet of 0.56 an left of 0.49. He was also seen for arterial disease and he reports he had other vascular evaluations performed with Dr. Maloney at an outside facility as well as the [facility]. His previous venous Doppler results were reviewed and were negative for deep venous thrombosis. He was advised to monitor this and he demonstrates understanding. To continue nutritional supplementation optimize healing. To continue with Tubigrip compression to decrease leg edema. Infectious disease is also helping manage this case and he was seen previously by Dr. Moya. A 6-week course of IV antibiotics will be reinitiated and he will need lab work reassessed approximately every 2 weeks. I recommend orthopedic surgical referral for bone debridement and biopsy versus amputation. His continued response and vascular status will help make this decision. This case was discussed with Dr. Grier and recommendations include vascular reconstruction if this is a possibility versus above-knee amputation. To return to clinic in 1 week or call sooner if he has any questions or concerns. His advanced wound care product application and ulcer debridement is canceled and not appropriate at this time. The goal is to keep this leg free of active infection or worsening status until his definitive plan is completed. He understands his delay in completing treatment recommendations is compromising his care plan and his ability to salvage his limb. I answered all of his questions.
[2018-07-04 09:05] VITALS: BP 104/28; PULSE 122; RESP 22; TEMP 36.7; BMI 65.4
--- NOTE | 2018-07-04 10:21 | PCM.WC.PN ---
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: Chronic Current Visit: Yes Qualifiers: Laterality: left Qualified Code(s): L97.923 - Non-pressure chronic ulcer of unspecified part of left lower leg with necrosis of muscle Code(s): L97.903 - Non-pressure chronic ulcer of unspecified part of unspecified lower leg with necrosis of muscle (4) 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 Status: Chronic Current Visit: Yes Qualifiers: Laterality: left Qualified Code(s): L97.922 - Non-pressure chronic ulcer of unspecified part of left lower leg with fat layer exposed Code(s): L97.902 - Non-pressure chronic ulcer of unspecified part of unspecified lower leg with fat layer exposed (5) Delayed wound healing Status: Chronic Current Visit: No Code(s): T14.8XXD - Other injury of unspecified body region, subsequent encounter (6) Peripheral vascular disease of extremity with claudication Status: Chronic Current Visit: No Code(s): I73.9 - Peripheral vascular disease, unspecified Type of Wound Date of Service: 07/04/18 Chief Complaint: Follow-up on left lower leg ulcers History of Wound: 77-year-old male who had surgery with Dr. Maloney in July for his small vessel occlusions in the left leg and venous insufficiency follows up today for two chronic non healing left left lower extremity wounds. He denies fever, chill, nausea, vomiting, loss of appetite, odor, streaking to the leg. He denies new redness or increased swelling. He denies pain. He saw Dr. Grier, orthopedic surgeon, who recommended vascular reconstruction versus above-knee amputation. Serial evaluation with Dr. Maloney for arterial evaluation is pending and his appointment is scheduled for July 11, 2008. He is taking antibiotics as prescribed twice daily for treatment of MRSA. He denies injuries or increased pain to the left leg. Progress of Wound: Stable - Physical Exam Vital Signs Temp Pulse Resp BP 98.1 F 122 H 22 H 104/28 L 07/04/18 09:05 07/04/18 09:05 07/04/18 09:05 07/04/18 09:05 General: Alert, Oriented x3, Cooperative Extremities: No cyanosis, Capillary Refill Less than 3 Seconds, No Calf Tenderness - Negative Travon and Araya left, Diminished Peripheral Pulses - Nonpalpable pulses left, Edema - Moderate left lower extremity Skin: Ulcer/ Wound - There is exposed bone and tendon this is not progressively worsened. There is no purulence or odor streaking or erythema noted. The peripheral skin is hairless and atrophic. Wound Measurements and Assessment WC - Nurse 1 - General Ulcer Measurement Start: 06/20/18 15:54 Freq: Status: Active Protocol: Activity Type Activity Date Activity User E-Sign Co-Sign Detail Recorded Client Recorded Date Recorded By Document 07/04/18 09:05 DL [id number] 07/04/18 09:18 DL 07/04/18 09:05 Wound Center Nurse 1 [Ulcer Assessment] #6 L Christensen -Current Size (cm) - Length 22.8 -Current Size (cm) - Width 10.8 -Current Size (cm) - Depth 0.5 -Total Square Cm 246.24 -Photo Taken No -Exudate Amt Large (67-100%) -Exudate Type Serosanguineous -Wound Margin Thickened -Granulation Amt Small (1-33%) -Granulation Quality Marlow -Necrosis Amt Large (67-100%) -Necrotic Tissue Type Adherent Slough -Structure Exposed Bone -Texture (Cyndy-wound Skin Appearance) Scarring -Moisture (Cyndy-wound Skin Appearance Dry/Scaly ) -Color (Cyndy-wound Skin Appearance) Erythema Hemosiderin Staining Rubor -Temperature (Cyndy-wound Skin No Abnormality Appearance) (Pt Warm) -Ulcer Cleansing Wound Cleanser -Foul Odor after Cleansing No -Anesthetic Used 4% Lidocaine Solution #5 LLE Post -Current Size (cm) - Length 6.2 -Current Size (cm) - Width 5 -Current Size (cm) - Depth 0.3 -Total Square Cm 31.0 -Photo Taken No -Exudate Amt Small (1-33%) -Exudate Type Serosanguineous -Wound Margin Thickened -Granulation Amt Small (1-33%) -Granulation Quality Marlow Red -Necrosis Amt Large (67-100%) -Necrotic Tissue Type Adherent Slough -Structure Exposed N/A -Texture (Cyndy-wound Skin Appearance) Scarring -Moisture (Cyndy-wound Skin Appearance Dry/Scaly ) -Color (Cyndy-wound Skin Appearance) Erythema Hemosiderin Staining Rubor -Temperature (Cyndy-wound Skin No Abnormality Appearance) (Pt Warm) -Tenderness on Palpation (Cyndy-wound No Skin Appearance) -Ulcer Cleansing Wound Cleanser -Anesthetic Used 4% Lidocaine Solution [Edema Assessment] -Right Calf (cm) 36 -Right Ankle (cm) 28.4 -Right Foot (cm) 42 -Left Calf (cm) 25 WC - Nurse 2 - General Ulcer CM Notes Start: 06/20/18 15:54 Freq: Status: Active Protocol: Activity Type Activity Date Activity User E-Sign Co-Sign Detail Recorded Client Recorded Date Recorded By Document 07/04/18 09:38 [id number] 07/04/18 09:40 07/04/18 09:38 Wound Center Nurse 2 [Procedure/Treatment] #6 L Christensen -Time 09:38 -Correct Patient Yes -Correct Side, Site, Position Yes -Correct Procedure Yes -Procedure Performed Yes -Type of Procedure Debridement -Clinical Debridement Selective -Post Debridement Size (cm) - Length 23.1 -Post Debridement Size (cm) - Width 11.4 -Post Debridement Size (cm) - Depth 0.1 -Total Square Cm 263.34 -Wound/Ulcer Outcome Not Healed -Ulcer Cleansing Rinsed/ Irrigated with Saline -Foul Odor after Cleansing No -Bioengineered Tissue No -Topical Lidocaine (%) 4 -Bleeding Controlled with Pressure -Treatment Response Procedure Tolerated Well #5 LLE Post -Time 09:39 -Correct Patient Yes -Correct Side, Site, Position Yes -Correct Procedure Yes -Procedure Performed Yes -Type of Procedure Debridement -Clinical Debridement Selective -Post Debridement Size (cm) - Length 6.7 -Post Debridement Size (cm) - Width 5.1 -Post Debridement Size (cm) - Depth 0.4 -Total Square Cm 34.17 -Wound/Ulcer Outcome Not Healed -Ulcer Cleansing Rinsed/ Irrigated with Saline -Foul Odor after Cleansing No -Bioengineered Tissue No -Topical Lidocaine (%) 4 -Bleeding Controlled with Pressure -Treatment Response Procedure Tolerated Well [See Physician Procedure note for Specifics] Pain Scale: 0-10 Numeric [Pain] -Is Patient Pain Free? Yes Musculoskeletal: No Tenderness to Palpation of Joints or Extremities, Muscle Wasting, - - Compartments remain soft without fluctuance left lower extremity Neurological: - - Lack of normal epicritic sensation light touch and debridement; there is some pain noted with debridement Psych/Mental Status: Normal Affect, Appropriate Debridement Note Post-Debridement Measurements/Treatment WC - Nurse 2 - General Ulcer CM Notes Start: 06/20/18 15:54 Freq: Status: Active Protocol: Activity Type Activity Date Activity User E-Sign Co-Sign Detail Recorded Client Recorded Date Recorded By Document 06/20/18 16:32 [id number] 06/20/18 16:36 TM Document 06/27/18 08:57 TM [id number] 06/27/18 09:00 TM Document 07/04/18 09:38 TM [id number] 07/04/18 09:40 TM 06/20/18 06/27/18 07/04/18 16:32 08:57 09:38 Wound Center Nurse 2 #6 L Christensen -Time 16:33 08:58 09:38 -Correct Patient Yes Yes Yes -Correct Side, Site, Position Yes Yes Yes -Correct Procedure Yes Yes Yes -Procedure Performed Yes Yes Yes -Type of Procedure Debridement Debridement Debridement -Clinical Debridement Muscle Selective Selective -Post Debridement Size (cm) - Length 22.8 23.1 23.1 -Post Debridement Size (cm) - Width 8.6 11.4 11.4 -Post Debridement Size (cm) - Depth 0.3 0.4 0.1 -Total Square Cm 196.08 263.34 263.34 -Wound/Ulcer Outcome Not Healed Not Healed Not Healed -Ulcer Cleansing Rinsed/ Rinsed/ Rinsed/ Irrigated with Irrigated with Irrigated with Saline Saline Saline -Foul Odor after Cleansing No No No -Bioengineered Tissue No No No -Topical Lidocaine (%) 4 4 4 -Bleeding Controlled with Pressure Pressure Pressure -Treatment Response Procedure Procedure Procedure Tolerated Well Tolerated Well Tolerated Well #5 LLE Post -Time 16:33 08:59 09:39 -Correct Patient Yes Yes Yes -Correct Side, Site, Position Yes Yes Yes -Correct Procedure Yes Yes Yes -Procedure Performed Yes Yes Yes -Type of Procedure Debridement Debridement -Clinical Debridement Subcutaneous Selective Selective -Post Debridement Size (cm) - Length 3.3 6.7 6.7 -Post Debridement Size (cm) - Width 2.2 5.1 5.1 -Post Debridement Size (cm) - Depth 0.2 0.4 0.4 -Total Square Cm 7.26 34.17 34.17 -Wound/Ulcer Outcome Not Healed Not Healed Not Healed -Ulcer Cleansing Rinsed/ Rinsed/ Rinsed/ Irrigated with Irrigated with Irrigated with Saline Saline Saline -Foul Odor after Cleansing No No No -Bioengineered Tissue No No No -Topical Lidocaine (%) 4 4 4 -Bleeding Controlled with Pressure Pressure Pressure -Treatment Response Procedure Procedure Procedure Tolerated Well Tolerated Well Tolerated Well Pain Scale: 0-10 Numeric Is Patient Pain Free? Yes Yes Yes Wound debrided: leg posterior Laterality: Left Type of Debridement: Selective debridement Anesthesia Used: 4% Lidocaine Solution Depth: Down to and including healthy tissue Percentage of wound debrided: 100 Instrument Used: #15 blade Tissue Removed: fibrous, devitalized superficial, biofilm, slough Severity: Fat Layer Exposed Amount of bleeding with debridement: Mild Bleeding Controlled with: Pressure Patient tolerated procedure well - Additional Wound Wound debrided: leg anterior Laterality: Left Type of Debridement: Selective debridement Anesthesia Used: 4% Lidocaine Solution Depth: Down to and including healthy tissue Percentage of wound debrided: 100 Instrument Used: #15 blade Tissue Removed: fibrous, devitalized superficial, biofilm, slough Severity: Necrosis of Bone Amount of bleeding with debridement: Mild Bleeding Controlled with: Pressure Patient tolerated procedure: Patient tolerated procedure well Assessment/Plan Active Problems Osteomyelitis of left tibia (Acute) 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 Osteomyelitis left tibia. Peripheral vascular disease. 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 Bilateral lower leg edema swelling increased in the left leg. Neuropathy lower extremities. Atrial fibrillation. Non compliance. Venous insufficiency. Left acute DVT has been ruled out Plan: I reviewed and discussed his care plan. Selective debridement was performed as noted in the clinical panel and he tolerated this well. To wash leg daily with gentle Dial soap and water. To change the dressing with Adaptic and Aquacel Ag. He has continued deterioration and worsening ulcer status. His leg x-rays demonstrated progressive osteolysis of his left tibia consistent with osteomyelitis. His recent lab work was also reviewed from the including white blood cell count 11.3, ESR 78, C-reactive protein 34.2. He was advised to elevate his limb at least 20 min/hour. To follow-up with vascular surgery as advised. He is scheduled for July 11, 2018. I urged him to seek a sooner follow-up and he will try to see if he can get a ride to another office location. He had recent updated noninvasive vascular studies performed at [facility] with bilateral dp and pt monophasic waveforms and right manpreet of 0.56 an left of 0.49. He was also seen for arterial disease and he reports he had other vascular evaluations performed with Dr. Maloney at an outside facility as well as the [facility]. His previous venous Doppler results were reviewed and were negative for deep venous thrombosis. He was advised to monitor this and he demonstrates understanding. To continue nutritional supplementation optimize healing. To continue with Tubigrip compression to decrease leg edema. Infectious disease is also helping manage this case and he was seen previously by Dr. Moya. A 6-week course of IV antibiotics will be reinitiated and he will need lab work reassessed approximately every 2 weeks. I recommend orthopedic surgical referral for bone debridement and biopsy versus amputation. His continued response and vascular status will help make this decision. This case was discussed with Dr. Grier and recommendations include vascular reconstruction if this is a possibility versus above-knee amputation. To return to clinic in 1 week or call sooner if he has any questions or concerns. His advanced wound care product application and ulcer debridement is canceled and not appropriate at this time. The goal is to keep this leg free of active infection or worsening status until his definitive plan is completed. He understands his delay in completing treatment recommendations is compromising his care plan and his ability to salvage his limb. I answered all of his questions.
[2018-07-11 16:05] VITALS: BP 107/58; PULSE 134; RESP 22; TEMP 36.3; BMI 65.4
--- NOTE | 2018-07-11 16:59 | PN.PCM_ITS ---
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 Code(s): L97.922 - Non-pressure chronic ulcer of unspecified part of left lower leg with fat layer exposed (2) Skin ulcer of lower leg with necrosis of muscle Status: Chronic Qualifiers: Laterality: left Qualified Code(s): L97.923 - Non-pressure chronic ulcer of unspecified part of left lower leg with necrosis of muscle Code(s): L97.903 - Non-pressure chronic ulcer of unspecified part of unspecified lower leg with necrosis of muscle (3) Osteomyelitis of left tibia Status: Chronic Qualifiers: Osteomyelitis type: subacute Qualified Code(s): M86.262 - Subacute osteomyelitis, left tibia and fibula Code(s): M86.9 - Osteomyelitis, unspecified (4) Delayed wound healing Status: Chronic Code(s): T14.8XXD - Other injury of unspecified body region, subsequent encounter (5) Peripheral vascular disease of extremity with claudication Status: Chronic Code(s): I73.9 - Peripheral vascular disease, unspecified Type of Wound Date of Service: 07/11/18 Chief Complaint: Follow-up on left lower leg ulcers History of Wound: 77-year-old male who had surgery with Dr. Maloney in July for his small vessel occlusions in the left leg and venous insufficiency follows up today for two chronic non healing left left lower extremity wounds. He denies fever, chill, nausea, vomiting, loss of appetite, odor, streaking to the leg. He denies new redness or increased swelling. He denies pain. He saw Dr. Grier, orthopedic surgeon, who recommended vascular reconstruction versus above-knee amputation. Attended the he is taking antibiotics as prescribed twice daily for treatment of MRSA. He denies injuries or increased pain to the left leg. He attended the vascular referral as advised. Progress of Wound: Stable - Physical Exam Vital Signs Temp Pulse Resp BP 97.3 F L 134 H 22 H 107/58 L 07/11/18 16:05 07/11/18 16:05 07/11/18 16:05 07/11/18 16:05 General: Alert, Oriented x3, Cooperative Extremities: No cyanosis, Capillary Refill Less than 3 Seconds, No Calf Tenderness - Negative Travon and Araya left, Diminished Peripheral Pulses, Edema - Moderate left Skin: Ulcer/ Wound - There is no purulence, erythema, streaking, odor, infection, or eschar. There is continued exposed tendon and bone in this wound is not making healing progress. Wound Measurements and Assessment WC - Nurse 1 - General Ulcer Measurement Start: 06/20/18 15:54 Freq: Status: Active Protocol: Activity Type Activity Date Activity User E-Sign Co-Sign Detail Recorded Client Recorded Date Recorded By Document 07/11/18 16:05 DL [id number] 07/11/18 16:17 DL 07/11/18 16:05 Wound Center Nurse 1 [Ulcer Assessment] #6 L Christensen -Current Size (cm) - Length 21.4 -Current Size (cm) - Width 11.4 -Current Size (cm) - Depth 0.9 -Total Square Cm 243.96 -Photo Taken No -Exudate Amt Large (67-100%) -Exudate Type Yellow/Green -Wound Margin Thickened -Granulation Amt Small (1-33%) -Granulation Quality Talmage -Necrosis Amt Large (67-100%) -Necrotic Tissue Type Adherent Slough -Structure Exposed Bone -Texture (Cyndy-wound Skin Appearance) Localized Edema Scarring -Moisture (Cyndy-wound Skin Appearance Dry/Scaly ) -Color (Cyndy-wound Skin Appearance) Erythema Hemosiderin Staining -Temperature (Cyndy-wound Skin No Abnormality Appearance) (Pt Warm) -Tenderness on Palpation (Cyndy-wound No Skin Appearance) -Ulcer Cleansing Wound Cleanser -Foul Odor after Cleansing Yes -Anesthetic Used 5% Lidocaine Gel #5 LLE Post -Current Size (cm) - Length 7 -Current Size (cm) - Width 6 -Current Size (cm) - Depth 0.4 -Total Square Cm 42 -Photo Taken No -Exudate Amt Medium (34-66%) -Exudate Type Serosanguineous -Wound Margin Thickened -Granulation Amt Medium (34-66%) -Granulation Quality Talmage -Necrosis Amt Large (67-100%) -Necrotic Tissue Type Adherent Slough -Structure Exposed N/A -Texture (Cyndy-wound Skin Appearance) Localized Edema Scarring -Color (Cyndy-wound Skin Appearance) Erythema Hemosiderin Staining -Temperature (Cyndy-wound Skin No Abnormality Appearance) (Pt Warm) -Ulcer Cleansing Wound Cleanser -Foul Odor after Cleansing No -Anesthetic Used 4% Lidocaine Solution [Edema Assessment] -Left Calf (cm) 49 -Left Ankle (cm) 27 WC - Nurse 2 - General Ulcer CM Notes Start: 06/20/18 15:54 Freq: Status: Active Protocol: Activity Type Activity Date Activity User E-Sign Co-Sign Detail Recorded Client Recorded Date Recorded By Document 07/11/18 16:42 [id number] 07/11/18 16:47 07/11/18 16:42 Wound Center Nurse 2 [Procedure/Treatment] #6 L Christensen -Time 16:43 -Correct Patient Yes -Correct Side, Site, Position Yes -Correct Procedure Yes -Procedure Performed Yes -Type of Procedure Debridement -Clinical Debridement Subcutaneous -Post Debridement Size (cm) - Length 21.5 -Post Debridement Size (cm) - Width 11.5 -Post Debridement Size (cm) - Depth 0.9 -Total Square Cm 247.25 -Wound/Ulcer Outcome Not Healed -Ulcer Cleansing Rinsed/ Irrigated with Saline -Foul Odor after Cleansing No -Bioengineered Tissue No -Bleeding Controlled with Pressure -Treatment Response Procedure Tolerated Well #5 LLE Post -Time 16:43 -Correct Patient Yes -Correct Side, Site, Position Yes -Correct Procedure Yes -Procedure Performed Yes -Type of Procedure Debridement -Clinical Debridement Subcutaneous -Post Debridement Size (cm) - Length 7 -Post Debridement Size (cm) - Width 6.1 -Post Debridement Size (cm) - Depth 0.4 -Total Square Cm 42.7 -Wound/Ulcer Outcome Not Healed -Ulcer Cleansing Rinsed/ Irrigated with Saline -Foul Odor after Cleansing No -Bioengineered Tissue No -Bleeding Controlled with Pressure -Treatment Response Procedure Tolerated Well [See Physician Procedure note for Specifics] Pain Scale: 0-10 Numeric [Pain] -Is Patient Pain Free? Yes Musculoskeletal: No Tenderness to Palpation of Joints or Extremities, Muscle Wasting Neurological: - - Decreased sensation with palpation and ulcer debridement noted-selective Psych/Mental Status: Normal Affect, Appropriate Debridement Note Post-Debridement Measurements/Treatment WC - Nurse 2 - General Ulcer CM Notes Start: 06/20/18 15:54 Freq: Status: Active Protocol: Activity Type Activity Date Activity User E-Sign Co-Sign Detail Recorded Client Recorded Date Recorded By Document 06/20/18 16:32 [id number] 06/20/18 16:36 TM Document 06/27/18 08:57 [id number] 06/27/18 09:00 TM Document 07/04/18 09:38 TM [id number] 07/04/18 09:40 TM Document 07/11/18 16:42 [id number] [id number] 07/11/18 16:47 JF 06/20/18 06/27/18 07/04/18 16:32 08:57 09:38 Wound Center Nurse 2 #6 L Christensen -Time 16:33 08:58 09:38 -Correct Patient Yes Yes Yes -Correct Side, Site, Position Yes Yes Yes -Correct Procedure Yes Yes Yes -Procedure Performed Yes Yes Yes -Type of Procedure Debridement Debridement Debridement -Clinical Debridement Muscle Selective Selective -Post Debridement Size (cm) - Length 22.8 23.1 23.1 -Post Debridement Size (cm) - Width 8.6 11.4 11.4 -Post Debridement Size (cm) - Depth 0.3 0.4 0.1 -Total Square Cm 196.08 263.34 263.34 -Wound/Ulcer Outcome Not Healed Not Healed Not Healed -Ulcer Cleansing Rinsed/ Rinsed/ Rinsed/ Irrigated with Irrigated with Irrigated with Saline Saline Saline -Foul Odor after Cleansing No No No -Bioengineered Tissue No No No -Topical Lidocaine (%) 4 4 4 -Bleeding Controlled with Pressure Pressure Pressure -Treatment Response Procedure Procedure Procedure Tolerated Well Tolerated Well Tolerated Well #5 LLE Post -Time 16:33 08:59 09:39 -Correct Patient Yes Yes Yes -Correct Side, Site, Position Yes Yes Yes -Correct Procedure Yes Yes Yes -Procedure Performed Yes Yes Yes -Type of Procedure Debridement Debridement -Clinical Debridement Subcutaneous Selective Selective -Post Debridement Size (cm) - Length 3.3 6.7 6.7 -Post Debridement Size (cm) - Width 2.2 5.1 5.1 -Post Debridement Size (cm) - Depth 0.2 0.4 0.4 -Total Square Cm 7.26 34.17 34.17 -Wound/Ulcer Outcome Not Healed Not Healed Not Healed -Ulcer Cleansing Rinsed/ Rinsed/ Rinsed/ Irrigated with Irrigated with Irrigated with Saline Saline Saline -Foul Odor after Cleansing No No No -Bioengineered Tissue No No No -Topical Lidocaine (%) 4 4 4 -Bleeding Controlled with Pressure Pressure Pressure -Treatment Response Procedure Procedure Procedure Tolerated Well Tolerated Well Tolerated Well Pain Scale: 0-10 Numeric Is Patient Pain Free? Yes Yes Yes 10/24/18 16:42 Wound Center Nurse 2 #6 L Christensen -Time 16:43 -Correct Patient Yes -Correct Side, Site, Position Yes -Correct Procedure Yes -Procedure Performed Yes -Type of Procedure Debridement -Clinical Debridement Subcutaneous -Post Debridement Size (cm) - Length 21.5 -Post Debridement Size (cm) - Width 11.5 -Post Debridement Size (cm) - Depth 0.9 -Total Square Cm 247.25 -Wound/Ulcer Outcome Not Healed -Ulcer Cleansing Rinsed/ Irrigated with Saline -Foul Odor after Cleansing No -Bioengineered Tissue No -Topical Lidocaine (%) -Bleeding Controlled with Pressure -Treatment Response Procedure Tolerated Well #5 LLE Post -Time 16:43 -Correct Patient Yes -Correct Side, Site, Position Yes -Correct Procedure Yes -Procedure Performed Yes -Type of Procedure Debridement -Clinical Debridement Subcutaneous -Post Debridement Size (cm) - Length 7 -Post Debridement Size (cm) - Width 6.1 -Post Debridement Size (cm) - Depth 0.4 -Total Square Cm 42.7 -Wound/Ulcer Outcome Not Healed -Ulcer Cleansing Rinsed/ Irrigated with Saline -Foul Odor after Cleansing No -Bioengineered Tissue No -Topical Lidocaine (%) -Bleeding Controlled with Pressure -Treatment Response Procedure Tolerated Well Pain Scale: 0-10 Numeric Is Patient Pain Free? Yes Wound debrided: posterior leg Laterality: Left Type of Debridement: Selective debridement Anesthesia Used: 4% Lidocaine Solution Depth: in the subcutaneous layer Percentage of wound debrided: 100 Instrument Used: 5mm curette Tissue Removed: fibrous, devitalized tissue, biofilm, slough Severity: Fat Layer Exposed Amount of bleeding with debridement: Mild Bleeding Controlled with: Pressure Patient tolerated procedure well - Additional Wound Wound debrided: anterior leg Laterality: Left Type of Debridement: Selective debridement Anesthesia Used: 4% Lidocaine Solution Depth: Down to and including healthy tissue, in the subcutaneous layer Percentage of wound debrided: 100 Instrument Used: 7mm curette Tissue Removed: fibrous, devitalized tissue, biofilm, slough Severity: Necrosis of Bone Amount of bleeding with debridement: Mild Bleeding Controlled with: Pressure Patient tolerated procedure: Patient tolerated procedure well Assessment/Plan Assessment: Left lower leg ulcer-anterior (tendon and bone exposed) and posterior (subcutaneous tissue exposed). Osteomyelitis left tibia. Peripheral vascular disease. 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 Bilateral lower leg edema swelling increased in the left leg. Neuropathy lower extremities. Atrial fibrillation. Non compliance. Venous insufficiency. Left acute DVT has been ruled out Plan: I reviewed and discussed his care plan. Selective debridement was performed as noted in the clinical panel and he tolerated this well. To wash leg daily with gentle Dial soap and water. To change the dressing with Adaptic and Aquacel Ag. He has continued deterioration and worsening ulcer status. His leg x-rays demonstrated progressive osteolysis of his left tibia consistent with osteomyelitis. His recent lab work was also reviewed from the including white blood cell count 11.3, ESR 78, C-reactive protein 34.2. He was advised to elevate his limb at least 20 min/hour. To follow-up with vascular surgery as advised. He did see Dr. Maloney earlier today who recommends angiogram with potential intervention. He will proceed with getting this scheduled. He had a previous updated noninvasive vascular studies performed at [facility] with bilateral dp and pt monophasic waveforms and right manpreet of 0.56 an left of 0.49. He was also seen for arterial disease and he reports he had other vascular evaluations performed with Dr. Maloney at an outside facility as well as the [facility]. His previous venous Doppler results were reviewed and were negative for deep venous thrombosis. He was advised to monitor this and he demonstrates understanding. To continue nutritional supplementation optimize healing. To continue with Tubigrip compression to decrease leg edema. Infectious disease is also helping manage this case and he was seen previously by Dr. Moya. A 6-week course of IV antibiotics will be reinitiated and he will need lab work reassessed approximately every 2 weeks. I recommend orthopedic surgical referral for bone debridement and biopsy versus amputation. His continued response and vascular status will help make this decision. This case was discussed with Dr. Grier and recommendations include vascular reconstruction if this is a possibility versus above-knee amputation. To return to clinic in 1 week or call sooner if he has any questions or concerns. His advanced wound care product application and ulcer debridement is canceled and not appropriate at this time. The goal is to keep this leg free of active infection or worsening status until his definitive plan is completed. He understands his delay in completing treatment recommendations is compromising his care plan and his ability to salvage his limb. I answered all of his questions.
[2018-07-18 09:18] VITALS: BP 89/55; PULSE 132; RESP 18; TEMP 37.7; BMI 65.4
--- NOTE | 2018-07-18 09:49 | PCM.WC.PN ---
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 Current Visit: Yes Code(s): L97.922 - Non-pressure chronic ulcer of unspecified part of left lower leg with fat layer exposed (2) Skin ulcer of lower leg with necrosis of muscle Status: Chronic Current Visit: Yes Qualifiers: Laterality: left Qualified Code(s): L97.923 - Non-pressure chronic ulcer of unspecified part of left lower leg with necrosis of muscle Code(s): L97.903 - Non-pressure chronic ulcer of unspecified part of unspecified lower leg with necrosis of muscle (3) Osteomyelitis of left tibia Status: Chronic Current Visit: Yes Qualifiers: Osteomyelitis type: subacute Qualified Code(s): M86.262 - Subacute osteomyelitis, left tibia and fibula Code(s): M86.9 - Osteomyelitis, unspecified (4) Delayed wound healing Status: Chronic Current Visit: Yes Code(s): T14.8XXD - Other injury of unspecified body region, subsequent encounter (5) Peripheral vascular disease of extremity with claudication Status: Chronic Current Visit: Yes Code(s): I73.9 - Peripheral vascular disease, unspecified Type of Wound Date of Service: 07/18/18 Chief Complaint: Follow-up on left lower leg ulcers History of Wound: 77-year-old male who had surgery with Dr. Maloney in July for his small vessel occlusions in the left leg and venous insufficiency follows up today for two chronic non healing left left lower extremity wounds. He denies fever, chill, nausea, vomiting, loss of appetite, odor, streaking to the leg. He denies new redness or increased swelling. He denies pain. He saw Dr. Grier, orthopedic surgeon, who recommended vascular reconstruction versus above-knee amputation. Attended the he is taking antibiotics as prescribed twice daily for treatment of MRSA. He denies injuries or increased pain to the left leg. He attended the vascular referral as advised. He reports some occasional chills and this is not currently occurring this morning. Progress of Wound: Stable - Physical Exam Vital Signs Temp Pulse Resp BP 99.8 F H 132 H 18 89/55 L 07/18/18 09:18 07/18/18 09:18 07/18/18 09:18 07/18/18 09:18 General: Alert, Oriented x3, Cooperative, - - Very talkative Extremities: No cyanosis, Capillary Refill Less than 3 Seconds, No Calf Tenderness - Negative Travon and Araya sign bilateral, Diminished Peripheral Pulses, Edema - Bilateral lower extremities Skin: Ulcer/ Wound - No purulence, erythema, streaking, odor, or fluctuance on palpation left leg ulcer sites. There is exposed bone and tendon that is continued there is no nena necrosis or maceration. The posterior leg ulcer site is fibrous and granular, - - The peripheral skin is atrophic and hairless Wound Measurements and Assessment WC - Nurse 1 - General Ulcer Measurement Start: 06/20/18 15:54 Freq: Status: Active Protocol: Activity Type Activity Date Activity User E-Sign Co-Sign Detail Recorded Client Recorded Date Recorded By Document 07/18/18 09:18 [id number] 07/18/18 09:20 07/18/18 09:18 Wound Center Nurse 1 [Ulcer Assessment] #6 L Christensen -Combined with other wound No -Current Size (cm) - Length 23.0 -Current Size (cm) - Width 11.0 -Current Size (cm) - Depth 0.3 -Total Square Cm 253.00 -Photo Taken No -Epithelialization None Present -Tunneling No -Undermining/Tunneling No -Circular Undermining No -Exudate Amt Large (67-100%) -Exudate Type Serosanguineous -Wound Margin Flat & Intact -Granulation Amt None Present (0 %) -Slough/Fibrin Yes -Necrosis Amt Large (67-100%) -Necrotic Tissue Type Adherent Slough -Structure Exposed Tendon -Texture (Cyndy-wound Skin Appearance) Assessed Localized Edema Scarring -Moisture (Cyndy-wound Skin Appearance Assessed ) Dry/Scaly -Color (Cyndy-wound Skin Appearance) Assessed -Temperature (Cyndy-wound Skin No Abnormality Appearance) (Pt Warm) -Tenderness on Palpation (Cyndy-wound No Skin Appearance) -Ulcer Cleansing Wound Cleanser -Foul Odor after Cleansing No -Anesthetic Used 4% Lidocaine Solution #5 LLE Post -Combined with other wound No -Current Size (cm) - Length 4 -Current Size (cm) - Width 4 -Current Size (cm) - Depth 0.2 -Total Square Cm 16 -Photo Taken No -Epithelialization None Present -Tunneling No -Undermining/Tunneling No -Circular Undermining No -Exudate Amt Medium (34-66%) -Exudate Type Serosanguineous -Wound Margin Flat & Intact -Granulation Amt Medium (34-66%) -Granulation Quality [place] -Slough/Fibrin Yes -Necrosis Amt Small (1-33%) -Necrotic Tissue Type Adherent Slough -Structure Exposed N/A -Texture (Cyndy-wound Skin Appearance) Assessed Localized Edema -Moisture (Cyndy-wound Skin Appearance Assessed ) Dry/Scaly -Color (Cyndy-wound Skin Appearance) Assessed -Temperature (Cyndy-wound Skin No Abnormality Appearance) (Pt Warm) -Tenderness on Palpation (Cyndy-wound No Skin Appearance) -Ulcer Cleansing Wound Cleanser -Foul Odor after Cleansing No -Anesthetic Used 4% Lidocaine Solution [Edema Assessment] -Lower Limb Edema Present Yes -Left Calf (cm) 43.3 -Left Ankle (cm) 26.0 WC - Nurse 2 - General Ulcer CM Notes Start: 06/20/18 15:54 Freq: Status: Active Protocol: Activity Type Activity Date Activity User E-Sign Co-Sign Detail Recorded Client Recorded Date Recorded By Document 07/18/18 09:41 [id number] 07/18/18 09:44 07/18/18 09:41 Wound Center Nurse 2 [Procedure/Treatment] #6 L Christensen -Time 09:41 -Correct Patient Yes -Correct Side, Site, Position Yes -Correct Procedure Yes -Procedure Performed Yes -Type of Procedure Debridement -Clinical Debridement Selective -Post Debridement Size (cm) - Length 23.0 -Post Debridement Size (cm) - Width 11.0 -Post Debridement Size (cm) - Depth 0.3 -Total Square Cm 253.00 -Wound/Ulcer Outcome Not Healed -Ulcer Cleansing Rinsed/ Irrigated with Saline -Foul Odor after Cleansing No -Bioengineered Tissue No -Topical Lidocaine (%) 4 -Bleeding Controlled with Pressure -Treatment Response Procedure Tolerated Well #5 LLE Post -Time 09:41 -Correct Patient Yes -Correct Side, Site, Position Yes -Correct Procedure Yes -Procedure Performed Yes -Type of Procedure Debridement -Clinical Debridement Selective -Post Debridement Size (cm) - Length 4.0 -Post Debridement Size (cm) - Width 4.0 -Post Debridement Size (cm) - Depth 0.2 -Total Square Cm 16.00 -Wound/Ulcer Outcome Not Healed -Ulcer Cleansing Rinsed/ Irrigated with Saline -Foul Odor after Cleansing No -Bioengineered Tissue No -Topical Lidocaine (%) 4 -Bleeding Controlled with Pressure -Treatment Response Procedure Tolerated Well [See Physician Procedure note for Specifics] Pain Scale: 0-10 Numeric [Pain] -Is Patient Pain Free? Yes Musculoskeletal: No Tenderness to Palpation of Joints or Extremities, Muscle Wasting Neurological: - - Lack of normal sensation light touch and with wound debridement; partially intact Psych/Mental Status: Normal Affect, Appropriate Debridement Note Post-Debridement Measurements/Treatment WC - Nurse 2 - General Ulcer CM Notes Start: 06/20/18 15:54 Freq: Status: Active Protocol: Activity Type Activity Date Activity User E-Sign Co-Sign Detail Recorded Client Recorded Date Recorded By Document 06/20/18 16:32 [id number] 06/20/18 16:36 TM Document 06/27/18 08:57 [email or web address] [id number] 06/27/18 09:00 TM Document 07/04/18 09:38 [email or web address] [id number] 07/04/18 09:40 TM Document 07/11/18 16:42 [id number] 07/11/18 16:47 Document 07/18/18 09:41 [id number] 07/18/18 09:44 TM 06/20/18 06/27/18 07/04/18 16:32 08:57 09:38 Wound Center Nurse 2 #6 L Christensen -Time 16:33 08:58 09:38 -Correct Patient Yes Yes Yes -Correct Side, Site, Position Yes Yes Yes -Correct Procedure Yes Yes Yes -Procedure Performed Yes Yes Yes -Type of Procedure Debridement Debridement Debridement -Clinical Debridement Muscle Selective Selective -Post Debridement Size (cm) - Length 22.8 23.1 23.1 -Post Debridement Size (cm) - Width 8.6 11.4 11.4 -Post Debridement Size (cm) - Depth 0.3 0.4 0.1 -Total Square Cm 196.08 263.34 263.34 -Wound/Ulcer Outcome Not Healed Not Healed Not Healed -Ulcer Cleansing Rinsed/ Rinsed/ Rinsed/ Irrigated with Irrigated with Irrigated with Saline Saline Saline -Foul Odor after Cleansing No No No -Bioengineered Tissue No No No -Topical Lidocaine (%) 4 4 4 -Bleeding Controlled with Pressure Pressure Pressure -Treatment Response Procedure Procedure Procedure Tolerated Well Tolerated Well Tolerated Well #5 LLE Post -Time 16:33 08:59 09:39 -Correct Patient Yes Yes Yes -Correct Side, Site, Position Yes Yes Yes -Correct Procedure Yes Yes Yes -Procedure Performed Yes Yes Yes -Type of Procedure Debridement Debridement -Clinical Debridement Subcutaneous Selective Selective -Post Debridement Size (cm) - Length 3.3 6.7 6.7 -Post Debridement Size (cm) - Width 2.2 5.1 5.1 -Post Debridement Size (cm) - Depth 0.2 0.4 0.4 -Total Square Cm 7.26 34.17 34.17 -Wound/Ulcer Outcome Not Healed Not Healed Not Healed -Ulcer Cleansing Rinsed/ Rinsed/ Rinsed/ Irrigated with Irrigated with Irrigated with Saline Saline Saline -Foul Odor after Cleansing No No No -Bioengineered Tissue No No No -Topical Lidocaine (%) 4 4 4 -Bleeding Controlled with Pressure Pressure Pressure -Treatment Response Procedure Procedure Procedure Tolerated Well Tolerated Well Tolerated Well Pain Scale: 0-10 Numeric Is Patient Pain Free? Yes Yes Yes 18 07/18/18 16:42 09:41 Wound Center Nurse 2 #6 L Christensen -Time 16:43 09:41 -Correct Patient Yes Yes -Correct Side, Site, Position Yes Yes -Correct Procedure Yes Yes -Procedure Performed Yes Yes -Type of Procedure Debridement Debridement -Clinical Debridement Subcutaneous Selective -Post Debridement Size (cm) - Length 21.5 23.0 -Post Debridement Size (cm) - Width 11.5 11.0 -Post Debridement Size (cm) - Depth 0.9 0.3 -Total Square Cm 247.25 253.00 -Wound/Ulcer Outcome Not Healed Not Healed -Ulcer Cleansing Rinsed/ Rinsed/ Irrigated with Irrigated with Saline Saline -Foul Odor after Cleansing No No -Bioengineered Tissue No No -Topical Lidocaine (%) 4 -Bleeding Controlled with Pressure Pressure -Treatment Response Procedure Procedure Tolerated Well Tolerated Well #5 LLE Post -Time 16:43 09:41 -Correct Patient Yes Yes -Correct Side, Site, Position Yes Yes -Correct Procedure Yes Yes -Procedure Performed Yes Yes -Type of Procedure Debridement Debridement -Clinical Debridement Subcutaneous Selective -Post Debridement Size (cm) - Length 7 4.0 -Post Debridement Size (cm) - Width 6.1 4.0 -Post Debridement Size (cm) - Depth 0.4 0.2 -Total Square Cm 42.7 16.00 -Wound/Ulcer Outcome Not Healed Not Healed -Ulcer Cleansing Rinsed/ Rinsed/ Irrigated with Irrigated with Saline Saline -Foul Odor after Cleansing No No -Bioengineered Tissue No No -Topical Lidocaine (%) 4 -Bleeding Controlled with Pressure Pressure -Treatment Response Procedure Procedure Tolerated Well Tolerated Well Pain Scale: 0-10 Numeric Is Patient Pain Free? Yes Yes Wound debrided: posterior leg Laterality: Left Type of Debridement: Selective debridement Anesthesia Used: 4% Lidocaine Solution Depth: Down to and including healthy tissue Percentage of wound debrided: 100 Instrument Used: #15 blade Tissue Removed: fibrous, devitalized tissue, biofilm, slough Severity: Fat Layer Exposed Amount of bleeding with debridement: Mild Bleeding Controlled with: Pressure Patient tolerated procedure well - Additional Wound Wound debrided: anterior leg Laterality: Left Type of Debridement: Selective debridement Anesthesia Used: 4% Lidocaine Solution Depth: Down to and including healthy tissue - Bone and tendon were exposed and these were not debrided today Instrument Used: #15 blade Tissue Removed: fibrous, devitalized tissue, biofilm, slough Severity: Necrosis of Bone Amount of bleeding with debridement: Mild Bleeding Controlled with: Pressure Patient tolerated procedure: Patient tolerated procedure well Assessment/Plan Active Problems Osteomyelitis of left tibia (Chronic) Ulcer of left lower extremity with fat layer exposed (Chronic) Skin 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 Osteomyelitis left tibia. Peripheral vascular disease. 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 Bilateral lower leg edema swelling increased in the left leg. Neuropathy lower extremities. Atrial fibrillation. Non compliance. Venous insufficiency. Left acute DVT has been ruled out Plan: I reviewed and discussed his care plan. Selective debridement was performed as noted in the clinical panel and he tolerated this well. It is noted he has a temperature of 99.5 today and this may be considered a low-grade fever. He does not appear systemically ill today nor is he having systemic subjective reports. To monitor this closely. To wash leg daily with gentle Dial soap and water. To change the dressing with Adaptic and Aquacel Ag. He has continued deterioration and worsening ulcer status. His leg x-rays demonstrated progressive osteolysis of his left tibia consistent with osteomyelitis. His recent lab work was also reviewed from the including white blood cell count 11.3, ESR 78, C-reactive protein 34.2. He was advised to elevate his limb at least 20 min/hour. To follow-up with vascular surgery as advised. He did see Dr. Maloney earlier today who recommends angiogram with potential intervention. He will proceed with getting this scheduled. He had a previous updated noninvasive vascular studies performed at [facility] with bilateral dp and pt monophasic waveforms and right manpreet of 0.56 an left of 0.49. He was also seen for arterial disease and he reports he had other vascular evaluations performed with Dr. Maloney at an outside facility as well as the [facility]. Most recently, he has a CT of the abdominal area to assess for any proximal pathology that may be contributing to his arterial lack of perfusion to the limb and delayed healing. This is scheduled for next week. I urged him to call and confirm the date and time of this procedure. His previous venous Doppler results were reviewed and were negative for deep venous thrombosis. He was advised to monitor this and he demonstrates understanding. To continue nutritional supplementation optimize healing. To continue with Tubigrip compression to decrease leg edema. Infectious disease is also helping manage this case and he was seen previously by Dr. Moya. A 6-week course of IV antibiotics will be reinitiated and he will need lab work reassessed approximately every 2 weeks. I recommend orthopedic surgical referral for bone debridement and biopsy versus amputation. His continued response and vascular status will help make this decision. This case was discussed with Dr. Grier and recommendations include vascular reconstruction if this is a possibility versus above-knee amputation. To return to clinic in 1 week or call sooner if he has any questions or concerns. His advanced wound care product application and ulcer debridement is canceled and not appropriate at this time. The goal is to keep this leg free of active infection or worsening status until his definitive plan is completed. He understands his delay in completing treatment recommendations is compromising his care plan and his ability to salvage his limb. I answered all of his questions.
== END 2018-07-18 23:59 ==
LOC: WC 08:30
PROVIDERS: Family Provider Internal Medicine; PCP Internal Medicine; Referring Provider Podiatrist; Visit Provider Podiatrist
DX: I73.9 Peripheral vascular disease, unspecified (principal); Z86.14 Personal history of Methicillin resistant Staphylococcus aureus infection; M86.262 Subacute osteomyelitis, left tibia and fibula; L97.822 Non-pressure chronic ulcer of other part of left lower leg with fat layer exposed; L97.825 Non-pressure chronic ulcer of other part of left lower leg with muscle involvement without evidence of necrosis; G62.9 Polyneuropathy, unspecified; I48.91 Unspecified atrial fibrillation; I50.22 Chronic systolic (congestive) heart failure; Z91.19 Patient's noncompliance with other medical treatment and regimen
CPT/HCPCS: 11042; 11043; 93923; 97597; 97598; 99214; G0463

== ENCOUNTER → 2018-07-30 08:03 | Outpatient (CLI) | payer MEDICARE, OTHER, SELFPAY ==
--- NOTE | 2018-07-30 08:09 | CT_ITS ---
STUDY: CTA OF THE ABDOMINAL AORTA AND BILATERAL LOWER EXTREMITIES REASON FOR EXAM: Male, 77 years old. Nonhealing wound of the right lower extremity. RADIATION DOSAGE (If Supplied By Facility): CTDIvol = ( 9.96 ) mGy, DLP = ( 3264.74 ) mGycm TECHNIQUE: Axial CT angiography multi-detector data acquisition was obtained from the diaphragm to the feet following intravenous administration of 100 ml of Isovue 370 contrast. Axial images and MIP images were reconstructed from the axial data set. Post-processing of the angiographic images was performed, with multiplanar reformation and 3D reconstruction. Individualized dose optimization techniques were used for this CT. TECHNICAL QUALITY: Good COMPARISON: None. Descriptors of Narrowing: None (0%) Mild (< 50%) Moderate (50-70%) Severe (70-90%) Subtotal/Total Occlusion (90-100%) Non-Evaluable (technically non-diagnostic FINDINGS: Abdominal aorta: There is minimal atherosclerotic changes of the abdominal aorta. There is mild ectasia without dissection aneurysm or significant stenosis. Celiac and superior mesenteric arteries: No demonstrated narrowing. Inferior mesenteric artery: No demonstrated narrowing. Right renal artery(arteries): No demonstrated narrowing. Left renal artery(arteries): No demonstrated narrowing. Right common iliac artery: Atherosclerotic changes with mild stenosis Right external iliac artery: Atherosclerotic changes with mild stenosis. Right internal iliac artery: Atherosclerotic changes with mild stenosis. Left common iliac artery: Atherosclerotic changes with mild stenosis. Left external iliac artery: Atherosclerotic changes with mild stenosis. Left internal iliac artery: Atherosclerotic changes with mild stenosis. RIGHT LOWER EXTREMITY Right common femoral artery: Atherosclerotic changes with mild stenosis. Right profundus femoris: No demonstrated narrowing. Right superficial femoral: The superficial femoral artery is occluded at its origin. Right popliteal artery: The popliteal artery reconstitutes just below the Osito's canal. There is scattered atherosclerotic changes without significant stenosis. Right tibioperoneal trunk: No demonstrated narrowing. Right anterior tibial artery: No demonstrated narrowing. Right posterior tibial artery: No demonstrated narrowing. Right peroneal artery: No demonstrated narrowing. LEFT LOWER EXTREMITY Left common femoral artery: Atherosclerotic changes with mild stenosis. Left profundus femoris: No demonstrated narrowing. Left superficial femoral: There is occlusion of the SFA at its origin. Left popliteal artery: The popliteal artery reconstitutes via collaterals below the level of Osito's canal. There is no significant stenosis. Left tibioperoneal trunk: Minimal atherosclerotic changes without stenosis. Left anterior tibial artery: No demonstrated narrowing. Left posterior tibial artery: No demonstrated narrowing. Left peroneal artery: No demonstrated narrowing. Lung bases are clear. The heart is borderline enlarged. There is fatty infiltration liver without focal mass. Normal gallbladder and biliary ductal system. Normal spleen. Normal pancreas. Normal adrenal glands. Normal bilateral kidneys. Normal IVC and retroperitoneum. Normal stomach. Normal small bowel. There is normal colon. There is evidence of appendectomy. The urinary bladder is of normal size and wall thickness. The arm prostate invaginates into the bladder floor. There is no pelvic lymphadenopathy. No free air or free fluid is seen within the abdominal cavity. Normal abdominal wall. There are degenerative changes about the lumbar spine and hips. There is mild subcutaneous edema of both lower extremities, left greater than right. There is soft tissue defects over the anterior lower leg and foot. CT/CT ANGIO ABD&PEL W/O&W/DYE IMPRESSION: 1. 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 There is no abnormality of the calf vasculature. 2. Mild atherosclerotic changes of the aorta and iliac arteries. 3. Diffuse edema of the lower extremities left greater than right with soft tissue defect over the anterior lower leg and foot. 4. Fatty infiltration of the liver. 5. Enlarged prostate. Electronically Signed: Richard Mcmullen DO at 22:04 EST Tel [phone], Service support ,
== END ==
PROVIDERS: Family Provider Internal Medicine; PCP Internal Medicine; Referring Provider Surgery Vascular Surgery; Visit Provider Surgery Vascular Surgery
DX: I70.239 Atherosclerosis of native arteries of right leg with ulceration of unspecified site (principal)
CPT/HCPCS: 74174; Q9967

== ENCOUNTER → 2018-08-03 09:04 | Outpatient (CLI) | payer MEDICARE, OTHER, SELFPAY ==
--- NOTE | 2018-08-03 09:09 | VDLE_ITS ---
Reason For Study: LEG SWELLING RIGHT LEFT CFV is compressible, spontaneous, phasic, CFV is compressible, spontaneous, phasic, competent and demonstrates normal competent, and demonstrates normal augmentation. augmentation. FV is compressible, spontaneous, phasic, FV is compressible, spontaneous, phasic, competent and demonstrates normal competent and demonstrates normal augmentation. augmentation. POP V is compressible, spontaneous, phasic, POP V is compressible, spontaneous, phasic, competent and demonstrates normal competent and demonstrates normal augmentation. augmentation. T/P Trunk is compressible. T/P Trunk is compressible. PTV is compressible. PTV is compressible. RT PerV is compressible. LT PerV is compressible. SFJ is competent SFJ is competent GSV is INCOMPETENT with reflux greater GSV is INCOMPETENT with reflux greater than .5 sec and diameter of .40 x .41 cm than .5 sec and diameter of .38 x .38 cm SSV is competent SSV is INCOMPETENT with reflux greater INCOMPETENT applications project manager 13 cm prox to medial than .5 sec and diameter of .21 x .21 cm. malleolus. Procedure Exam performed in department. <> Interpretation Summary 1. bilateral no DVT. 2. right GSV 4.1 and reflux 3. Left GSV 3.8 and LSV 2.1 and both relfux. Ordering Physician: Coy Maloney Referring Physician: Phoebe Daniels M.D. Performed By: Silva Sanchez RVT
== END ==
PROVIDERS: Family Provider Internal Medicine; PCP Internal Medicine; Referring Provider Surgery Vascular Surgery; Visit Provider Surgery Vascular Surgery
DX: M79.89 Other specified soft tissue disorders (principal); M79.605 Pain in left leg; M79.604 Pain in right leg
CPT/HCPCS: 93970

== ENCOUNTER 2018-08-08 19:07 | Emergency (ER) | payer MEDICARE, OTHER, SELFPAY ==
[2018-08-08 19:08] VITALS: BP 81/43; PULSE 115; RESP 18; TEMP 36.6; O2SAT 98; BMI 27.1
[2018-08-08 19:29] VITALS: BP 82/47; PULSE 128; RESP 16; O2SAT 100
[2018-08-08 19:30] VITALS: BP 81/44; PULSE 120; RESP 16; O2SAT 99
--- NOTE | 2018-08-08 19:44 | ED.VISSUMM ---
- ER Visit Summary Date of Service: 08/08/18 Chief Complaint: Nausea and vomiting x2. History of Present Illness: The patient is a 77 M history of anemia and chronic leg wounds were seen at the wound care center. Patient was eating at a local restaurant and had nausea vomiting x2. Denies any fever. Denies abdominal pain. Denies any melena. Denies any hematemesis. Said before he went to eat he felt fine. Currently says he feels fine. He thinks he just picked up a virus. He does not want extensive evaluation done. Physical Examination: Well appearing older male. His initial blood pressure is 82/47 he states his pressure normally runs under 100. He has a known cardiomyopathy. Temperature 97.8. Heart rate is 128. Pulse ox 100% on room air no. No hypoxia. HEENT exam unremarkable. Moist mucous membranes. Patient does not look dehydrated. Neck nontender. Lungs clear to auscultation bilaterally. Heart regular rate and rhythm. Rate about 100. Abdomen is soft. Nontender. Nondistended. No signs of obstruction. Right upper right lower quadrant unremarkable. Normal bowel sounds. No peritoneal signs. Moving all 4 extremities. He has chronic edema in his left lower leg. He has dressings on both lower legs and feet from chronic wounds. Neurologically he is awake and alert with no focal motor deficits. Test Results: Discussed with the patient he does not want any workup done. Clinically looks well. Emergency Department Course and Treatment: Discharge home with Zofran home pack. Treatment Plan: Viral syndrome. Zofran. Fluids and rest. Return if worse. Patient and his are both in the room. Both are fine with no workup being done and that is what he prefers. He will return if he feels worse. Disposition: Discharge Impression: Acute nausea and vomiting secondary to viral. This note was generated with [email or web address] dictation software. It may contain incorrect words, spelling, and punctuation that were not noted in review of the chart prior to signing ED Disposition - Plan for ED Patient: Chief Complaint: General Illness Referrals: Phoebe Daniels MD [Primary Care Provider] -
[2018-08-08 20:07] VITALS: BP 87/59; PULSE 111; RESP 16; O2SAT 96
--- NOTE | 2018-08-08 20:09 | ED.DEP ---
ED Disposition - Plan for ED Patient: Disposition: Home or Assisted Living Chief Complaint: General Illness Instructions: ED Nausea Vomiting Referrals: Phoebe Daniels MD [Primary Care Provider] - 3-5 Days if not improving Additional Instructions: Zofran as needed for nausea. 20 of fluids and rest. Return if feeling worse. Or intractable vomiting or you develop abdominal pain.
--- NOTE | 2018-08-08 20:10 | ED.RN ---
PT AMBULATED IN HALLWAY AND DENIES DIZZINESS BP RECHECK 87/59, PULSE 111, RESPIRATIONS 16, PULSE OX 96% PT TOLERATED WELL.
[2018-08-08] MEDS: Ondansetron ODT 4 MG Tablet PO (20:26)
--- NOTE | 2018-08-08 20:26 | ED.DCSUM_ITS ---
- ER Visit Summary Date of Service: 08/08/18 Chief Complaint: Nausea and vomiting x2. History of Present Illness: The patient is a 77 M history of anemia and chronic leg wounds were seen at the wound care center. Patient was eating at a local restaurant and had nausea vomiting x2. Denies any fever. Denies abdominal pain. Denies any melena. Denies any hematemesis. Said before he went to eat he felt fine. Currently says he feels fine. He thinks he just picked up a virus. He does not want extensive evaluation done. Physical Examination: Well appearing older male. His initial blood pressure is 82/47 he states his pressure normally runs under 100. He has a known cardiomyo linda. Temperature 97.8. Heart rate is 128. Pulse ox 100% on room air no. No hypoxia. HEENT exam unremarkable. Moist mucous membranes. Patient does not look dehydrated. Neck nontender. Lungs clear to auscultation bilaterally. Heart regular rate and rhythm. Rate about 100. Abdomen is soft. Nontender. Nondistended. No signs of obstruction. Right upper right lower quadrant unremarkable. Normal bowel sounds. No peritoneal signs. Moving all 4 extremities. He has chronic edema in his left lower leg. He has dressings on both lower legs and feet from chronic wounds. Neurologically he is awake and alert with no focal motor deficits. Test Results: Discussed with the patient he does not want any workup done. Clinically looks well. Emergency Department Course and Treatment: Discharge home with Zofran home pack. Treatment Plan: Viral syndrome. Zofran. Fluids and rest. Return if worse. Helio ozuna and his are both in the room. Both are fine with no workup being done and that is what he prefers. He will return if he feels worse. Disposition: Discharge Impression: Acute nausea and vomiting secondary to viral. This note was generated with [employer] dictation software. It may contain incorrect words, spelling, and punctuation that were not noted in review of the chart prior to signing ED Disposition - Plan for ED Patient: Chief Complaint: General Illness Referrals: Phoebe Daniels MD [Primary Care Provider] -
== END 2018-08-08 20:27 | disposition home or self-care (01) ==
PROVIDERS: Emergency Provider Emergency Medicine; Family Provider Internal Medicine; PCP Internal Medicine
DX: R11.2 Nausea with vomiting, unspecified (principal); B34.9 Viral infection, unspecified; D64.9 Anemia, unspecified; Z79.02 Long term (current) use of antithrombotics/antiplatelets; Z79.82 Long term (current) use of aspirin; Z79.899 Other long term (current) drug therapy
CPT/HCPCS: 97597; 97598; 99282

== ENCOUNTER 2018-08-15 15:00 | Outpatient (RCR) | payer MEDICARE, OTHER, SELFPAY ==
[2018-07-19 00:39] VITALS: BP 89/55; PULSE 132; RESP 18; TEMP 37.7; BMI 65.4
[2018-07-25 09:31] VITALS: BP 125/78; PULSE 136; RESP 18; TEMP 37.6; BMI 65.4
--- NOTE | 2018-07-25 10:39 | PN.PCM_ITS ---
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 Current Visit: Yes Code(s): L97.922 - Non-pressure chronic ulcer of unspecified part of left lower leg with fat layer exposed (4) Venous insufficiency Status: Chronic Current Visit: Yes Code(s): I87.2 - Venous insufficiency (chronic) (peripheral) (5) MRSA (methicillin resistant staph aureus) culture positive Status: Resolved Current Visit: Yes Code(s): Z22.322 - Carrier or suspected carrier of Methicillin resistant Staphylococcus aureus (6) Delayed wound healing Status: Chronic Current Visit: Yes Code(s): T14.8XXD - Other injury of unspecified body region, subsequent encounter (7) Peripheral vascular disease of extremity with claudication Status: Chronic Current Visit: Yes Code(s): I73.9 - Peripheral vascular dis ease, unspecified Type of Wound Chief Complaint: Follow-up on left lower leg ulcers History of Wound: 77-year-old male who had surgery with Dr. Maloney in July for his small vessel occlusions in the left leg and venous insufficiency follows up today for two chronic non healing left left lower extremity wounds. He denies fever, chill, nausea, vomiting, loss of appetite, odor, streaking to the leg. He denies new redness or increased swelling. He denies pain. He saw Dr. Grier, orthopedic surgeon, who recommended vascular reconstruction versus above-knee amputation. He denies injuries or increased pain to the left leg. He attended the vascular referral as advised. He reports some occasional chills and this is not currently occurring this morning. He has an abdominal CT scan scheduled for July 30, 2018 and is follow-up with Dr. Maloney is August 08, 2018. Progress of Wound: Stable - Physical Exam Vital Signs Temp Pulse Resp BP 99.6 F H 136 H 18 125/78 H 07/25/18 09:31 07/25/18 09:31 07/25/18 09:31 07/25/18 09:31 General: Alert, Oriented x3, Cooperative Extremities: No cyanosis, Capillary Refill Less than 3 Seconds, No Calf Tenderness - Negative Travon and Araya signs left, Diminished Peripheral Pulses, Edema - Mild left lower extremity Skin: Ulcer/ Wound - No purulence, no erythema, streaking, no odor, no redness no infection left. Exposed bone and tendon are noted this appears to be stable. The peripheral skin is hairless and atrophic. Wound Measurements and Assessment WC - Nurse 1 - General Ulcer Measurement Start: 07/25/18 09:31 Freq: Status: Active Protocol: Activity Type Activity Date Activity User E-Sign Co-Sign Detail Recorded Client Recorded Date Recorded By Document 07/25/18 09: [id number] 07/25/18 09:33 07/25/18 09:31 Wound Center Nurse 1 [Ulcer Assessment] #6 L Christensen -Combined with other wound No -Current Size (cm) - Length 21.5 -Current Size (cm) - Width 12.0 -Current Size (cm) - Depth 0.5 -Total Square Cm 258.00 -Photo Taken No -Epithelialization None Present -Tunneling No -Undermining/Tunneling No -Circular Undermining No -Exudate Amt Large (67-100%) -Exudate Type Serosanguineous -Wound Margin Flat & Intact -Granulation Amt None Present (0 %) -Slough/Fibrin Yes -Necrosis Amt Large (67-100%) -Necrotic Tissue Type Adherent Slough -Structure Exposed Tendon Bone -Texture (Cyndy-wound Skin Appearance) Assessed Localized Edema -Moisture (Cyndy-wound Skin Appearance Assessed ) Dry/Scaly -Color (Cyndy-wound Skin Appearance) Assessed Hemosiderin Staining -Temperature (Cyndy-wound Skin No Abnormality Appearance) (Pt Warm) -Tenderness on Palpation (Cyndy-wound No Skin Appearance) -Ulcer Cleansing Wound Cleanser -Foul Odor after Cleansing No -Anesthetic Used 4% Lidocaine Solution #5 LLE Post -Combined with other wound No -Current Size (cm) - Length 5.5 -Current Size (cm) - Width 3 -Current Size (cm) - Depth 0.2 -Total Square Cm 16.5 -Photo Taken No -Epithelialization Small 1-33% -Tunneling No -Undermining/Tunneling No -Circular Undermining No -Exudate Amt Small (1-33%) -Exudate Type Serosanguineous -Wound Margin Flat & Intact -Granulation Amt Medium (34-66%) -Granulation Quality [place] -Slough/Fibrin Yes -Necrosis Amt Small (1-33%) -Necrotic Tissue Type Adherent Slough -Structure Exposed N/A -Texture (Cyndy-wound Skin Appearance) Assessed Localized Edema -Moisture (Cyndy-wound Skin Appearance Assessed ) Dry/Scaly -Color (Cyndy-wound Skin Appearance) Assessed Hemosiderin Staining -Temperature (Cyndy-wound Skin No Abnormality Appearance) (Pt Warm) -Tenderness on Palpation (Cyndy-wound No Skin Appearance) -Ulcer Cleansing Wound Cleanser -Foul Odor after Cleansing No -Anesthetic Used 4% Lidocaine Solution [Edema Assessment] -Lower Limb Edema Present Yes -Left Calf (cm) 45.2 -Left Ankle (cm) 27.2 WC - Nurse 2 - General Ulcer CM Notes Start: 07/25/18 09:31 Freq: Status: Active Protocol: Activity Type Activity Date Activity User E-Sign Co-Sign Detail Recorded Client Recorded Date Recorded By Document 07/25/18 09:46 [id number] 07/25/18 09:47 07/25/18 09:46 Wound Center Nurse 2 [Procedure/Treatment] #6 L Christensen -Time 09:46 -Correct Patient Yes -Correct Side, Site, Position Yes -Correct Procedure Yes -Procedure Performed Yes -Type of Procedure Debridement -Clinical Debridement Selective -Post Debridement Size (cm) - Length 21.6 -Post Debridement Size (cm) - Width 12.1 -Post Debridement Size (cm) - Depth 0.5 -Total Square Cm 261.36 -Wound/Ulcer Outcome Not Healed -Ulcer Cleansing Rinsed/ Irrigated with Saline -Foul Odor after Cleansing No -Bioengineered Tissue No -Topical Lidocaine (%) 4 -Bleeding Controlled with Pressure -Treatment Response Procedure Tolerated Well #5 LLE Post -Time 09:46 -Correct Patient Yes -Correct Side, Site, Position Yes -Correct Procedure Yes -Procedure Performed Yes -Type of Procedure Debridement -Clinical Debridement Selective -Post Debridement Size (cm) - Length 5.6 -Post Debridement Size (cm) - Width 3.1 -Post Debridement Size (cm) - Depth 0.2 -Total Square Cm 17.36 -Wound/Ulcer Outcome Not Healed -Ulcer Cleansing Rinsed/ Irrigated with Saline -Foul Odor after Cleansing No -Bioengineered Tissue No -Topical Lidocaine (%) 4 -Bleeding Controlled with Pressure -Treatment Response Procedure Tolerated Well [See Physician Procedure note for Specifics] Pain Scale: 0-10 Numeric [Pain] -Is Patient Pain Free? Yes Musculoskeletal: No Tenderness to Palpation of Joints or Extremities, Muscle Wasting Neurological: - - Normal epicritic sensation is not intact left lower extremity Psych/Mental Status: Normal Affect, Appropriate Debridement Note Post-Debridement Measurements/Treatment WC - Nurse 2 - General Ulcer CM Notes Start: 07/25/18 09:31 Freq: Status: Active Protocol: Activity Type Activity Date Activity User E-Sign Co-Sign Detail Recorded Client Recorded Date Recorded By Document 07/25/18 09:46 [id number] 07/25/18 09:47 07/25/18 09:46 Wound Center Nurse 2 #6 L Christensen -Time 09:46 -Correct Patient Yes -Correct Side, Site, Position Yes -Correct Procedure Yes -Procedure Performed Yes -Type of Procedure Debridement -Clinical Debridement Selective -Post Debridement Size (cm) - Length 21.6 -Post Debridement Size (cm) - Width 12.1 -Post Debridement Size (cm) - Depth 0.5 -Total Square Cm 261.36 -Wound/Ulcer Outcome Not Healed -Ulcer Cleansing Rinsed/ Irrigated with Saline -Foul Odor after Cleansing No -Bioengineered Tissue No -Topical Lidocaine (%) 4 -Bleeding Controlled with Pressure -Treatment Response Procedure Tolerated Well #5 LLE Post -Time 09:46 -Correct Patient Yes -Correct Side, Site, Position Yes -Correct Procedure Yes -Procedure Performed Yes -Type of Procedure Debridement -Clinical Debridement Selective -Post Debridement Size (cm) - Length 5.6 -Post Debridement Size (cm) - Width 3.1 -Post Debridement Size (cm) - Depth 0.2 -Total Square Cm 17.36 -Wound/Ulcer Outcome Not Healed -Ulcer Cleansing Rinsed/ Irrigated with Saline -Foul Odor after Cleansing No -Bioengineered Tissue No -Topical Lidocaine (%) 4 -Bleeding Controlled with Pressure -Treatment Response Procedure Tolerated Well Pain Scale: 0-10 Numeric Is Patient Pain Free? Yes Wound debrided: posterior leg Laterality: Left Wound Grade/Stage: Type of Debridement: Selective debridement Anesthesia Used: 4% Lidocaine Solution Depth: Down to and including healthy tissue Percentage of wound debrided: 100 Instrument Used: #15 blade Tissue Removed: fibrous, devitalized tissue, biofilm, slough Severity: Fat Layer Exposed Amount of bleeding with debridement: Mild Bleeding Controlled with: Pressure Patient tolerated procedure well - Additional Wound Wound debrided: anterior leg Laterality: Left Type of Debridement: Selective debridement Anesthesia Used: 4% Lidocaine Solution Depth: Down to and including healthy tissue Percentage of wound debrided: 100 Instrument Used: #15 blade Tissue Removed: fibrous, devitalized tissue, biofilm, slough Severity: Limited To Skin Breakdown Amount of bleeding with debridement: Mild Bleeding Controlled with: Pressure Patient tolerated procedure: Patient tolerated procedure well Assessment/Plan Active Problems Osteomyelitis of left tibia (Chronic) 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 Osteomyelitis left tibia. Peripheral vascular disease. 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 Bilateral lower leg edema sw elling increased in the left leg. Neuropathy lower extremities. Atrial fibrillation. Non compliance. Venous insufficiency. Left acute DVT has been ruled out Plan: I reviewed and discussed his care plan. Selective debridement was performed as noted in the clinical panel and he tolerated this well. To wash leg daily with gentle Dial soap and water. To change the dressing with Adaptic and Aquacel Ag. His leg x-rays demonstrated progressive osteolysis of his left tibia consistent with osteomyelitis. His recent lab work was also reviewed from the including white blood cell count 11.3, ESR 78, C-reactive protein 34.2. He was advised to elevate his limb at least 20 min/hour. To follow-up with vascular surgery as advised. He did see Dr. Maloney earlier today who recommends additional workup with abdominal CT and this is scheduled for July 30, 2018. He had a previous updated noninvasive vascular studies performed at [facility] with bilateral dp and pt monophasic waveforms and right manpreet of 0.56 an left of 0.49. He was also seen for arterial disease and he reports he had other vascular evaluations performed with Dr. Maloney at an outside facility as well as the [facility]. His previous venous Doppler results were reviewed and were negative for deep venous thrombosis. He was advised to monitor this and he demonstrates understanding. To continue nutritional supplementation optimize healing. To continue with Tubigrip compression to decrease leg edema. I recommend orthopedic surgical referral for bone debridement and biopsy versus amputation. His continued response and vascular status will help make this decision. This case was discussed with Dr. Grier and recommendations include vascular reconstruction if this is a possibility versus above-knee amputation. To return to clinic in 1 week or call sooner if he has any questions or concerns. The goal is to keep this leg free of active infection or worsening status until his definitive plan is completed. He understands his delay in completing treatment recommendations is compromising his care plan and his ability to salvage his limb. I answered all of his questions.
[2018-08-01 15:10] VITALS: BP 111/50; PULSE 137; RESP 22; TEMP 36.6; BMI 65.4
--- NOTE | 2018-08-01 17:16 | PN.PCM_ITS ---
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 Current Visit: Yes Code(s): L97.922 - Non-pressure chronic ulcer of unspecified part of left lower leg with fat layer exposed (4) Venous insufficiency Status: Chronic Current Visit: Yes Code(s): I87.2 - Venous insufficiency (chronic) (peripheral) (5) MRSA (methicillin resistant staph aureus) culture positive Status: Resolved Current Visit: Yes Code(s): Z22.322 - Carrier or suspected carrier of Methicillin resistant Staphylococcus aureus (6) Delayed wound healing Status: Chronic Current Visit: Yes Code(s): T14.8XXD - Other injury of unspecified body region, subsequent encounter (7) Peripheral vascular disease of extremity with claudication Status: Chronic Current Visit: Yes Code(s): I73.9 - Peripheral vascular dis ease, unspecified Type of Wound Date of Service: 08/01/18 Chief Complaint: Follow-up on left lower leg ulcers History of Wound: 77-year-old male who had surgery with Dr. Maloney in July for his small vessel occlusions in the left leg and venous insufficiency follows up today for two chronic non healing left left lower extremity wounds. He denies fever, chill, nausea, vomiting, loss of appetite, odor, streaking to the leg. He denies new redness or increased swelling. He denies pain. He saw Dr. Grier, orthopedic surgeon, who recommended vascular reconstruction versus above-knee amputation. He denies injuries or increased pain to the left leg. He attended the vascular referral as advised. He reports some occasional chills and this is not currently occurring this morning. He presented to obtain his abdominal CT scan and reports it was canceled because they could not find the order. He plans to call today to get this rescheduled. Progress of Wound: Stable - Physical Exam Vital Signs Temp Pulse Resp BP 98 F 137 H 22 H 111/50 L 08/01/18 15:10 08/01/18 15:10 08/01/18 15:10 08/01/18 15:10 General: Alert, Oriented x3, Cooperative Extremities: No cyanosis, Capillary Refill Less than 3 Seconds, No Calf Tenderness - Negative Travon and Araya sign left, Diminished Peripheral Pulses, Edema Skin: Ulcer/ Wound - No purulence, erythema, streaking, odor, or acute infection. It is noted that there is devitalized tendon and bone exposed and this remains stable compared to prior exams. Peripheral skin is very hairless and atrophic. Wound Measurements and Assessment WC - Nurse 1 - General Ulcer Measurement Start: 07/25/18 09:31 Freq: Status: Active Protocol: Activity Type Activity Date Activity User E-Sign Co-Sign Detail Recorded Client Recorded Date Recorded By Document 08/01/18 15:10 DL [id number] 08/01/18 15:22 DL 08/01/18 15:10 Wound Center Nurse 1 [Ulcer Assessment] #6 L Christensen -Current Size (cm) - Length 22.2 -Current Size (cm) - Width 13 -Current Size (cm) - Depth 0.7 -Total Square Cm 288.6 -Photo Taken No -Exudate Amt Large (67-100%) -Exudate Type Serosanguineous -Wound Margin Thickened & Rolled Under -Granulation Amt None Present (0 %) -Necrosis Amt Large (67-100%) -Necrotic Tissue Type Adherent Slough -Structure Exposed Tendon Bone -Texture (Cyndy-wound Skin Appearance) Localized Edema Scarring -Moisture (Cyndy-wound Skin Appearance No Abnormality ) -Color (Cyndy-wound Skin Appearance) Hemosiderin Staining Rubor -Temperature (Cyndy-wound Skin No Abnormality Appearance) (Pt Warm) -Ulcer Cleansing Wound Cleanser -Foul Odor after Cleansing No -Anesthetic Used 4% Lidocaine Solution #5 LLE Post -Current Size (cm) - Length 7.7 -Current Size (cm) - Width 5 -Current Size (cm) - Depth 0.7 -Total Square Cm 38.5 -Photo Taken No -Exudate Amt Large (67-100%) -Exudate Type Serosanguineous -Wound Margin Thickened & Rolled Under -Granulation Amt Small (1-33%) -Granulation Quality [place] -Necrosis Amt Large (67-100%) -Necrotic Tissue Type Adherent Slough -Structure Exposed N/A -Texture (Cyndy-wound Skin Appearance) Localized Edema Scarring -Moisture (Cyndy-wound Skin Appearance No Abnormality ) Dry/Scaly -Color (Cyndy-wound Skin Appearance) Hemosiderin Staining Rubor -Temperature (Cyndy-wound Skin No Abnormality Appearance) (Pt Warm) -Tenderness on Palpation (Cyndy-wound No Skin Appearance) -Ulcer Cleansing Wound Cleanser -Foul Odor after Cleansing No -Anesthetic Used 4% Lidocaine Solution [Edema Assessment] -Left Calf (cm) 45.5 -Left Ankle (cm) 27 WC - Nurse 2 - General Ulcer CM Notes Start: 07/25/18 09:31 Freq: Status: Active Protocol: Activity Type Activity Date Activity User E-Sign Co-Sign Detail Recorded Client Recorded Date Recorded By Document 08/01/18 15:45 [id number] 08/01/18 15:52 08/01/18 15:45 Wound Center Nurse 2 [Procedure/Treatment] #6 L Christensen -Time 15:46 -Correct Patient Yes -Correct Side, Site, Position Yes -Correct Procedure Yes -Procedure Performed Yes -Type of Procedure Debridement -Clinical Debridement Selective -Post Debridement Size (cm) - Length 22.3 -Post Debridement Size (cm) - Width 13.1 -Post Debridement Size (cm) - Depth 0.7 -Total Square Cm 292.13 -Wound/Ulcer Outcome Not Healed -Ulcer Cleansing Rinsed/ Irrigated with Saline -Foul Odor after Cleansing No -Bioengineered Tissue No -Topical Lidocaine (%) 4 -Bleeding Controlled with Pressure -Treatment Response Procedure Tolerated Well #5 LLE Post -Time 15:46 -Correct Patient Yes -Correct Side, Site, Position Yes -Correct Procedure Yes -Procedure Performed Yes -Type of Procedure Debridement -Clinical Debridement Selective -Post Debridement Size (cm) - Length 7.8 -Post Debridement Size (cm) - Width 5.1 -Post Debridement Size (cm) - Depth 0.7 -Total Square Cm 39.78 -Wound/Ulcer Outcome Not Healed -Ulcer Cleansing Rinsed/ Irrigated with Saline -Foul Odor after Cleansing No -Bioengineered Tissue No -Topical Lidocaine (%) 4 -Bleeding Controlled with Pressure -Treatment Response Procedure Tolerated Well [See Physician Procedure note for Specifics] Pain Scale: 0-10 Numeric [Pain] -Is Patient Pain Free? Yes Musculoskeletal: No Tenderness to Palpation of Joints or Extremities, Muscle Wasting Neurological: - - Lack of normal epicritic sensation light touch left lower extremity Psych/Mental Status: Normal Affect, Appropriate Debridement Note Post-Debridement Measurements/Treatment WC - Nurse 2 - General Ulcer CM Notes Start: 07/25/18 09:31 Freq: Status: Active Protocol: Activity Type Activity Date Activity User E-Sign Co-Sign Detail Recorded Client Recorded Date Recorded By Document 07/25/18 09:46 [id number] 07/25/18 09:47 Document 08/01/18 15:45 [id number] 08/01/18 15:52 TM 07/25/18 08/01/18 09:46 15:45 Wound Center Nurse 2 #6 L Christensen -Time 09:46 15:46 -Correct Patient Yes Yes -Correct Side, Site, Position Yes Yes -Correct Procedure Yes Yes -Procedure Performed Yes Yes -Type of Procedure Debridement Debridement -Clinical Debridement Selective Selective -Post Debridement Size (cm) - Length 21.6 22.3 -Post Debridement Size (cm) - Width 12.1 13.1 -Post Debridement Size (cm) - Depth 0.5 0.7 -Total Square Cm 261.36 292.13 -Wound/Ulcer Outcome Not Healed Not Healed -Ulcer Cleansing Rinsed/ Rinsed/ Irrigated with Irrigated with Saline Saline -Foul Odor after Cleansing No No -Bioengineered Tissue No No -Topical Lidocaine (%) 4 4 -Bleeding Controlled with Pressure Pressure -Treatment Response Procedure Procedure Tolerated Well Tolerated Well #5 LLE Post -Time 09:46 15:46 -Correct Patient Yes Yes -Correct Side, Site, Position Yes Yes -Correct Procedure Yes Yes -Procedure Performed Yes Yes -Type of Procedure Debridement Debridement -Clinical Debridement Selective Selective -Post Debridement Size (cm) - Length 5.6 7.8 -Post Debridement Size (cm) - Width 3.1 5.1 -Post Debridement Size (cm) - Depth 0.2 0.7 -Total Square Cm 17.36 39.78 -Wound/Ulcer Outcome Not Healed Not Healed -Ulcer Cleansing Rinsed/ Rinsed/ Irrigated with Irrigated with Saline Saline -Foul Odor after Cleansing No No -Bioengineered Tissue No No -Topical Lidocaine (%) 4 4 -Bleeding Controlled with Pressure Pressure -Treatment Response Procedure Procedure Tolerated Well Tolerated Well Pain Scale: 0-10 Numeric Is Patient Pain Free? Yes Yes Wound debrided: anterior leg Laterality: Left Type of Debridement: Selective debridement Anesthesia Used: 4% Lidocaine Solution Depth: in the subcutaneous layer Percentage of wound debrided: 100 Instrument Used: 7mm curette Tissue Removed: fibrous, devitalized ulcer tissue, biofilm, slough Severity: Necrosis of Bone Amount of bleeding with debridement: Mild Bleeding Controlled with: Pressure Patient tolerated procedure well - Additional Wound Wound debrided: posterior leg Laterality: Left Type of Debridement: Selective debridement Anesthesia Used: 4% Lidocaine Solution Depth: in the subcutaneous layer Percentage of wound debrided: 100 Instrument Used: 7mm curette Tissue Removed: fibrous, devitalized ulcer tissue, biofilm, slough Severity: Fat Layer Exposed Amount of bleeding with debridement: Mild Bleeding Controlled with: Pressure Patient tolerated procedure: Patient tolerated procedure well Assessment/Plan Active Problems Osteomyelitis of left tibia (Chronic) 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 Osteomyelitis left tibia. Peripheral vascular disease. 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 Bilateral lower leg edema swelling increased in the left leg. Neuropathy lower extremities. Atrial fibrillation. Non compliance. Venous insufficiency. Left acute DVT has been ruled out Plan: I reviewed and discussed his care plan. Selective debridement was performed as noted in the clinical panel and he tolerated this well. To wash leg daily with gentle Dial soap and water. To change the dressing with Adaptic and Aquacel Ag. His leg x-rays demonstrated progressive osteolysis of his left tibia consistent with osteomyelitis. His recent lab work was also reviewed from the including white blood cell count 11.3, ESR 78, C-reactive protein 34.2. He was advised to elevate his limb at least 20 min/hour. To follow-up with vascular surgery as advised. He did see Dr. Maloney earlier today who recommends additional workup with abdominal CT. He will work on getting this rescheduled and I urged him to do this quickly because he is high risk. He had a previous updated noninvasive vascular studies performed at [facility] with bilateral dp and pt monophasic waveforms and right manpreet of 0.56 an left of 0.49. He was also seen for arterial disease and he reports he had other vascular evaluations performed with Dr. Maloney at an outside facility as well as the [facility]. His previous venous Doppler results were reviewed and were negative for deep venous thrombosis. He was advised to monitor this and he demonstrates understanding. To continue nutritional supplementation optimize healing. To continue with Tubigrip compression to decrease leg edema. I recommend orthopedic surgical referral for bone debridement and biopsy versus amputation. His continued response and vascular status will help make this decision. This case was discussed with Dr. Grier and recommendations include vascular reconstruction if this is a possibility versus above-knee amputation. To return to clinic in 1 week or call sooner if he has any questions or concerns. The goal is to keep this leg free of active infection or worsening status until his definitive plan is completed. He understands his delay in completing treatment recommendations is compromising his care plan and his ability to salvage his limb. I answered all of his questions.
[2018-08-08 15:00] VITALS: BP 101/65; PULSE 122; RESP 16; TEMP 36.9; BMI 65.4
--- NOTE | 2018-08-08 17:47 | PCM.WC.PN ---
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: Chronic Code(s): L97.922 - Non-pressure chronic ulcer of unspecified part of left lower leg with fat layer exposed (4) Venous insufficiency Status: Chronic Code(s): I87.2 - Venous insufficiency (chronic) (peripheral) (5) MRSA (methicillin resistant staph aureus) culture positive Status: Resolved Code(s): Z22.322 - Carrier or suspected carrier of Methicillin resistant Staphylococcus aureus (6) Delayed wound healing Status: Chronic Code(s): T14.8XXD - Other injury of unspecified body region, subsequent encounter (7) Peripheral vascular disease of extremity with claudication Status: Chronic Code(s): I73.9 - Peripheral vascular disease, unspecified Type of Wound Date of Service: 08/08/18 Chief Complaint: Follow-up on left lower leg ulcers History of Wound: 77-year-old male who had surgery with Dr. Maloney in July for his small vessel occlusions in the left leg and venous insufficiency follows up today for two chronic non healing left left lower extremity wounds. He denies fever, chill, nausea, vomiting, loss of appetite, odor, streaking to the leg. He denies new redness or increased swelling. He denies pain. He saw Dr. Grier, orthopedic surgeon, who recommended vascular reconstruction versus above-knee amputation. He denies injuries or increased pain to the left leg. He attended the vascular referral as advised and is tentatively scheduled to have reconstructive vascular arterial study with Dr. Maloney within the next 2 weeks. Progress of Wound: Stable - Physical Exam Vital Signs Temp Pulse Resp BP 98.4 F 122 H 16 101/65 08/08/18 15:00 08/08/18 15:00 08/08/18 15:00 08/08/18 15:00 General: Alert, Oriented x3, Cooperative Extremities: No cyanosis, Capillary Refill Less than 3 Seconds, No Calf Tenderness, Diminished Peripheral Pulses, Edema Skin: Ulcer/ Wound - No purulence, erythema, itching, odor, or infection. He does have chronic osteomyelitis consistent with his exposed tibia and tendinous structures noted. There is no progressive maceration or necrosis today. The peripheral skin is very hairless and atrophic. Wound Measurements and Assessment WC - Nurse 1 - General Ulcer Measurement Start: 07/25/18 09:31 Freq: Status: Active Protocol: Activity Type Activity Date Activity User E-Sign Co-Sign Detail Recorded Client Recorded Date Recorded By Document 08/08/18 15:00 [id number] 08/08/18 15:13 08/08/18 15:00 Wound Center Nurse 1 [Ulcer Assessment] #6 L Christensen -Combined with other wound No -Current Size (cm) - Length 23.5 -Current Size (cm) - Width 12.0 -Current Size (cm) - Depth 0.5 -Total Square Cm 282.00 -Photo Taken No -Epithelialization None Present -Tunneling No -Undermining/Tunneling No -Circular Undermining No -Exudate Amt Large (67-100%) -Exudate Type Yellow/Green -Wound Margin Flat & Intact -Granulation Amt None Present (0 %) -Slough/Fibrin Yes -Necrosis Amt Large (67-100%) -Necrotic Tissue Type Adherent Slough -Structure Exposed Tendon -Texture (Cyndy-wound Skin Appearance) Assessed Localized Edema -Moisture (Cyndy-wound Skin Appearance Assessed ) Dry/Scaly -Color (Cyndy-wound Skin Appearance) Assessed Hemosiderin Staining -Temperature (Cyndy-wound Skin No Abnormality Appearance) (Pt Warm) -Tenderness on Palpation (Cyndy-wound No Skin Appearance) -Ulcer Cleansing Wound Cleanser -Foul Odor after Cleansing No -Anesthetic Used 4% Lidocaine Solution #5 LLE Post -Combined with other wound No -Current Size (cm) - Length 5 -Current Size (cm) - Width 5.5 -Current Size (cm) - Depth 0.2 -Total Square Cm 27.5 -Photo Taken No -Epithelialization Small 1-33% -Tunneling No -Undermining/Tunneling No -Circular Undermining No -Exudate Amt Small (1-33%) -Exudate Type Serosanguineous -Wound Margin Flat & Intact -Granulation Amt Medium (34-66%) -Granulation Quality [place] -Slough/Fibrin Yes -Necrosis Amt Small (1-33%) -Necrotic Tissue Type Adherent Slough -Structure Exposed N/A -Texture (Cyndy-wound Skin Appearance) Assessed Localized Edema -Moisture (Cyndy-wound Skin Appearance Assessed ) Dry/Scaly -Color (Cyndy-wound Skin Appearance) Assessed -Temperature (Cyndy-wound Skin No Abnormality Appearance) (Pt Warm) -Tenderness on Palpation (Cyndy-wound No Skin Appearance) -Ulcer Cleansing Wound Cleanser -Foul Odor after Cleansing No -Anesthetic Used 4% Lidocaine Solution [Edema Assessment] -Lower Limb Edema Present Yes -Left Calf (cm) 45.0 -Left Ankle (cm) 27.4 WC - Nurse 2 - General Ulcer CM Notes Start: 07/25/18 09:31 Freq: Status: Active Protocol: Activity Type Activity Date Activity User E-Sign Co-Sign Detail Recorded Client Recorded Date Recorded By Document 08/08/18 15:40 [id number] 08/08/18 15:41 08/08/18 15:40 Wound Center Nurse 2 [Procedure/Treatment] #6 L Christensen -Time 15:40 -Correct Patient Yes -Correct Side, Site, Position Yes -Correct Procedure Yes -Procedure Performed Yes -Type of Procedure Debridement -Clinical Debridement Selective -Post Debridement Size (cm) - Length 23.6 -Post Debridement Size (cm) - Width 12.1 -Post Debridement Size (cm) - Depth 0.5 -Total Square Cm 285.56 -Wound/Ulcer Outcome Not Healed -Ulcer Cleansing Rinsed/ Irrigated with Saline -Foul Odor after Cleansing No -Bioengineered Tissue No -Topical Lidocaine (%) 5 -Bleeding Controlled with Pressure -Treatment Response Procedure Tolerated Well #5 LLE Post -Time 15:40 -Correct Patient Yes -Correct Side, Site, Position Yes -Correct Procedure Yes -Procedure Performed Yes -Type of Procedure Debridement -Clinical Debridement Selective -Post Debridement Size (cm) - Length 5.1 -Post Debridement Size (cm) - Width 5.6 -Post Debridement Size (cm) - Depth 0.2 -Total Square Cm 28.56 -Wound/Ulcer Outcome Not Healed -Ulcer Cleansing Rinsed/ Irrigated with Saline -Foul Odor after Cleansing No -Bioengineered Tissue No -Topical Lidocaine (%) 5 -Bleeding Controlled with Pressure -Treatment Response Procedure Tolerated Well [See Physician Procedure note for Specifics] Pain Scale: 0-10 Numeric [Pain] -Is Patient Pain Free? Yes Musculoskeletal: No Tenderness to Palpation of Joints or Extremities, Muscle Wasting Neurological: - - There is lack of epicritic sensation light touch at the ulcer site Psych/Mental Status: Normal Affect, Appropriate Debridement Note Post-Debridement Measurements/Treatment WC - Nurse 2 - General Ulcer CM Notes Start: 07/25/18 09:31 Freq: Status: Active Protocol: Activity Type Activity Date Activity User E-Sign Co-Sign Detail Recorded Client Recorded Date Recorded By Document 07/25/18 09:46 [id number] 07/25/18 09:47 TM Document 08/01/18 15:45 [id number] 08/01/18 15:52 TM Document 08/08/18 15:40 [id number] 08/08/18 15:41 TM 07/25/18 08/01/18 08/08/18 09:46 15:45 15:40 Wound Center Nurse 2 #6 L Christensen -Time 09:46 15:46 15:40 -Correct Patient Yes Yes Yes -Correct Side, Site, Position Yes Yes Yes -Correct Procedure Yes Yes Yes -Procedure Performed Yes Yes Yes -Type of Procedure Debridement Debridement Debridement -Clinical Debridement Selective Selective Selective -Post Debridement Size (cm) - Length 21.6 22.3 23.6 -Post Debridement Size (cm) - Width 12.1 13.1 12.1 -Post Debridement Size (cm) - Depth 0.5 0.7 0.5 -Total Square Cm 261.36 292.13 285.56 -Wound/Ulcer Outcome Not Healed Not Healed Not Healed -Ulcer Cleansing Rinsed/ Rinsed/ Rinsed/ Irrigated with Irrigated with Irrigated with Saline Saline Saline -Foul Odor after Cleansing No No No -Bioengineered Tissue No No No -Topical Lidocaine (%) 4 4 5 -Bleeding Controlled with Pressure Pressure Pressure -Treatment Response Procedure Procedure Procedure Tolerated Well Tolerated Well Tolerated Well #5 LLE Post -Time 09:46 15:46 15:40 -Correct Patient Yes Yes Yes -Correct Side, Site, Position Yes Yes Yes -Correct Procedure Yes Yes Yes -Procedure Performed Yes Yes Yes -Type of Procedure Debridement Debridement Debridement -Clinical Debridement Selective Selective Selective -Post Debridement Size (cm) - Length 5.6 7.8 5.1 -Post Debridement Size (cm) - Width 3.1 5.1 5.6 -Post Debridement Size (cm) - Depth 0.2 0.7 0.2 -Total Square Cm 17.36 39.78 28.56 -Wound/Ulcer Outcome Not Healed Not Healed Not Healed -Ulcer Cleansing Rinsed/ Rinsed/ Rinsed/ Irrigated with Irrigated with Irrigated with Saline Saline Saline -Foul Odor after Cleansing No No No -Bioengineered Tissue No No No -Topical Lidocaine (%) 4 4 5 -Bleeding Controlled with Pressure Pressure Pressure -Treatment Response Procedure Procedure Procedure Tolerated Well Tolerated Well Tolerated Well Pain Scale: 0-10 Numeric Is Patient Pain Free? Yes Yes Yes Wound debrided: posterior leg Laterality: Left Type of Debridement: Selective debridement Anesthesia Used: 4% Lidocaine Solution Depth: Down to and including healthy tissue, in the subcutaneous layer Percentage of wound debrided: 100 Instrument Used: 7mm curette Tissue Removed: fibrous, devitalized tissue, biofilm, slough Severity: Necrosis of Bone Amount of bleeding with debridement: Mild Bleeding Controlled with: Pressure Patient tolerated procedure well - Additional Wound Wound debrided: anterior leg Laterality: Left Type of Debridement: Selective debridement Anesthesia Used: 4% Lidocaine Solution Depth: Down to and including healthy tissue, in the subcutaneous layer Percentage of wound debrided: 100 Instrument Used: 7mm curette Tissue Removed: fibrous, devitalized tissue, biofilm, slough Severity: Necrosis of Bone Amount of bleeding with debridement: Mild Bleeding Controlled with: Pressure Patient tolerated procedure: Patient tolerated procedure well Assessment/Plan Assessment: Left lower leg ulcer-anterior (tendon and bone exposed) and posterior (subcutaneous tissue exposed). Osteomyelitis left tibia. Peripheral vascular disease. 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 Bilateral lower leg edema swelling increased in the left leg. Neuropathy lower extremities. Atrial fibrillation. Non compliance. Venous insufficiency. Left acute DVT has been ruled out Plan: I reviewed and discussed his care plan. Selective debridement was performed as noted in the clinical panel and he tolerated this well. To wash leg daily with gentle Dial soap and water. To change the dressing with Adaptic and Aquacel Ag. His leg x-rays demonstrated progressive osteolysis of his left tibia consistent with osteomyelitis. His recent lab work was also reviewed from the including white blood cell count 11.3, ESR 78, C-reactive protein 34.2. He was advised to elevate his limb at least 20 min/hour. To follow-up with vascular surgery as advised. He rescheduled his abdominal CT scan and did follow up with Dr. Maloney as advised. He does have a pending reconstructive vascular surgery intervention planned for within the next 2 weeks. He had a previous updated noninvasive vascular studies performed at [facility] with bilateral dp and pt monophasic waveforms and right manpreet of 0.56 an left of 0.49. His previous venous Doppler results were reviewed and were negative for deep venous thrombosis. He was advised to monitor this and he demonstrates understanding. To continue nutritional supplementation optimize healing. To continue with Tubigrip compression to decrease leg edema. I recommend orthopedic surgical referral for bone debridement and biopsy versus amputation. His continued response and vascular status will help make this decision. This case was discussed with Dr. Grier and recommendations include vascular reconstruction if this is a possibility versus above-knee amputation. To return to clinic in 1 week or call sooner if he has any questions or concerns. The goal is to keep this leg free of active infection or worsening status until his definitive plan is completed. He understands his delay in completing treatment recommendations is compromising his care plan and his ability to salvage his limb. I answered all of his questions.
[2018-08-15 15:21] VITALS: BP 118/69; PULSE 116; RESP 22; TEMP 35.9; BMI 65.4
--- NOTE | 2018-08-15 16:05 | PN.PCM_ITS ---
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 Current Visit: Yes Code(s): L97.922 - Non-pressure chronic ulcer of unspecified part of left lower leg with fat layer exposed (4) Venous insufficiency Status: Chronic Current Visit: Yes Code(s): I87.2 - Venous insufficiency (chronic) (peripheral) (5) MRSA (methicillin resistant staph aureus) culture positive Status: Resolved Current Visit: Yes Code(s): Z22.322 - Carrier or suspected carrier of Methicillin resistant Staphylococcus aureus (6) Delayed wound healing Status: Chronic Current Visit: Yes Code(s): T14.8XXD - Other injury of unspecified body region, subsequent encounter (7) Peripheral vascular disease of extremity with claudication Status: Chronic Current Visit: Yes Code(s): I73.9 - Peripheral vascular dis ease, unspecified Type of Wound Date of Service: 08/15/18 Chief Complaint: Follow-up on left lower leg ulcers History of Wound: 77-year-old male who had surgery with Dr. Maloney in July for his small vessel occlusions in the left leg and venous insufficiency follows up today for two chronic non healing left left lower extremity wounds. He reports he is supposed to have reconstructive vascular artery surgery next week and does not know when. He is amenable to us helping make this phone call to communicate the plan with the vascular surgery office. He did already have his abdominal CT completed. He denies fever, chill, nausea, vomiting, loss of appetite, odor, streaking to the leg. He denies new redness or increased swelling. He denies pain. He saw Dr. Grier, orthopedic surgeon, who recommended vascular reconstruction versus above-knee amputation. He denies injuries or increased pain to the left leg. Progress of Wound: Worse with increased ulcer sizes - Physical Exam Vital Signs Temp Pulse Resp BP 96.6 F L 116 H 22 H 118/69 08/15/18 15:21 08/15/18 15:21 08/15/18 15:21 08/15/18 15:21 General: Alert, Oriented x3, Cooperative Extremities: No cyanosis, Capillary Refill Less than 3 Seconds, No Calf Tenderness - Negative Travon and Araya sign, Diminished Peripheral Pulses, Edema - Bilateral lower extremities Skin: Ulcer/ Wound - No purulence, erythema, streaking, odor, or acute infection. There is a continued exposed discolored tibia shaft bone that is larger in size. The posterior anterior leg ulcer sites also have increased in size and do not look viable. There is exposed edematous tendon including tibialis anterior and extensor tendons extruding from the anterior wound. The peripheral skin is hairless and atrophic. Wound Measurements and Assessment WC - Nurse 1 - General Ulcer Measurement Start: 07/25/18 09:31 Freq: Status: Active Protocol: Activity Type Activity Date Activity User E-Sign Co-Sign Detail Recorded Client Recorded Date Recorded By Document 08/15/18 15:21 DL [id number] 08/15/18 15:34 DL 08/15/18 15:21 Wound Center Nurse 1 [Ulcer Assessment] #6 L Christenesn -Current Size (cm) - Length 23.2 -Current Size (cm) - Width 12.8 -Current Size (cm) - Depth 0.8 -Total Square Cm 296.96 -Photo Taken No -Exudate Amt Large (67-100%) -Exudate Type Serosanguineous -Wound Margin Thickened & Rolled Under -Granulation Amt Small (1-33%) -Granulation Quality [place] -Necrosis Amt Large (67-100%) -Necrotic Tissue Type Adherent Slough -Structure Exposed Tendon Bone -Texture (Cyndy-wound Skin Appearance) Localized Edema Scarring -Moisture (Cyndy-wound Skin Appearance Dry/Scaly ) -Color (Cyndy-wound Skin Appearance) Erythema Hemosiderin Staining Rubor -Temperature (Cyndy-wound Skin No Abnormality Appearance) (Pt Warm) -Tenderness on Palpation (Cyndy-wound Yes Skin Appearance) -Ulcer Cleansing Wound Cleanser -Foul Odor after Cleansing No -Anesthetic Used 4% Lidocaine Solution #5 LLE Post -Current Size (cm) - Length 7.1 -Current Size (cm) - Width 5.6 -Current Size (cm) - Depth 0.3 -Total Square Cm 39.76 -Photo Taken No -Exudate Amt Medium (34-66%) -Exudate Type Serosanguineous -Wound Margin Thickened & Rolled Under -Granulation Amt None Present (0 %) -Necrosis Amt Large (67-100%) -Necrotic Tissue Type Adherent Slough -Structure Exposed N/A -Texture (Cyndy-wound Skin Appearance) Localized Edema Scarring -Moisture (Cyndy-wound Skin Appearance Dry/Scaly ) -Color (Cyndy-wound Skin Appearance) Hemosiderin Staining Rubor -Temperature (Cyndy-wound Skin No Abnormality Appearance) (Pt Warm) -Tenderness on Palpation (Cyndy-wound No Skin Appearance) -Ulcer Cleansing Wound Cleanser -Foul Odor after Cleansing No -Anesthetic Used 4% Lidocaine Solution [Edema Assessment] -Left Calf (cm) 41.5 -Left Ankle (cm) 26 Musculoskeletal: No Tenderness to Palpation of Joints or Extremities, Muscle Wasting, - - No pain with wound manipulation left. The compartments of the left lower extremity remains soft to palpate. Neurological: - - Lack of normal epicritic sensation light touch noted Psych/Mental Status: Normal Affect, Appropriate Debridement Note Post-Debridement Measurements/Treatment WC - Nurse 2 - General Ulcer CM Notes Start: 07/25/18 09:31 Freq: Status: Active Protocol: Activity Type Activity Date Activity User E-Sign Co-Sign Detail Recorded Client Recorded Date Recorded By Document 07/25/18 09:46 [id number] 07/25/18 09:47 Document 08/01/18 15:45 [id number] 08/01/18 15:52 TM Document 08/08/18 15:40 [id number] 08/08/18 15:41 07/25/18 08/01/18 08/08/18 09:46 15:45 15:40 Wound Center Nurse 2 #6 L Christensen -Time 09:46 15:46 15:40 -Correct Patient Yes Yes Yes -Correct Side, Site, Position Yes Yes Yes -Correct Procedure Yes Yes Yes -Procedure Performed Yes Yes Yes -Type of Procedure Debridement Debridement Debridement -Clinical Debridement Selective Selective Selective -Post Debridement Size (cm) - Length 21.6 22.3 23.6 -Post Debridement Size (cm) - Width 12.1 13.1 12.1 -Post Debridement Size (cm) - Depth 0.5 0.7 0.5 -Total Square Cm 261.36 292.13 285.56 -Wound/Ulcer Outcome Not Healed Not Healed Not Healed -Ulcer Cleansing Rinsed/ Rinsed/ Rinsed/ Irrigated with Irrigated with Irrigated with Saline Saline Saline -Foul Odor after Cleansing No No No -Bioengineered Tissue No No No -Topical Lidocaine (%) 4 4 5 -Bleeding Controlled with Pressure Pressure Pressure -Treatment Response Procedure Procedure Procedure Tolerated Well Tolerated Well Tolerated Well #5 LLE Post -Time 09:46 15:46 15:40 -Correct Patient Yes Yes Yes -Correct Side, Site, Position Yes Yes Yes -Correct Procedure Yes Yes Yes -Procedure Performed Yes Yes Yes -Type of Procedure Debridement Debridement Debridement -Clinical Debridement Selective Selective Selective -Post Debridement Size (cm) - Length 5.6 7.8 5.1 -Post Debridement Size (cm) - Width 3.1 5.1 5.6 -Post Debridement Size (cm) - Depth 0.2 0.7 0.2 -Total Square Cm 17.36 39.78 28.56 -Wound/Ulcer Outcome Not Healed Not Healed Not Healed -Ulcer Cleansing Rinsed/ Rinsed/ Rinsed/ Irrigated with Irrigated with Irrigated with Saline Saline Saline -Foul Odor after Cleansing No No No -Bioengineered Tissue No No No -Topical Lidocaine (%) 4 4 5 -Bleeding Controlled with Pressure Pressure Pressure -Treatment Response Procedure Procedure Procedure Tolerated Well Tolerated Well Tolerated Well Pain Scale: 0-10 Numeric Is Patient Pain Free? Yes Yes Yes Wound debrided: anterior leg Laterality: Left Type of Debridement: Selective debridement Anesthesia Used: 5% Lidocaine Gel Depth: in the subcutaneous layer Percentage of wound debrided: 100 Instrument Used: #15 blade Tissue Removed: fibrous, devitalized tissue, biofilm, slough Severity: Fat Layer Exposed Amount of bleeding with debridement: Mild Bleeding Controlled with: Pressure Patient tolerated procedure well - Additional Wound Wound debrided: posterior leg Laterality: Left Type of Debridement: Selective debridement Anesthesia Used: 5% Lidocaine Gel Depth: in the subcutaneous layer Percentage of wound debrided: 100 Instrument Used: #15 blade Tissue Removed: biofilm, slough , fibrous, devitalized tissue Severity: Necrosis of Muscle Amount of bleeding with debridement: Mild Bleeding Controlled with: Pressure Patient tolerated procedure: Patient tolerated procedure well Assessment/Plan Active Problems Osteomyelitis of left tibia (Chronic) 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 Osteomyelitis left tibia. Peripheral vascular disease. 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 Bilateral lower leg edema swelling increased in the left leg. Neuropathy lower extremities. Atrial fibrillation. Non compliance. Venous insufficiency. Left acute DVT has been ruled out Plan: I reviewed and discussed his care plan. Selective debridement was performed as noted in the clinical panel and he tolerated this well. To wash leg daily with gentle Dial soap and water. To change the dressing with Adaptic and Aquacel Ag. His leg x-rays demonstrated progressive osteolysis of his left tibia consistent with osteomyelitis. His recent lab work was also reviewed from the including white blood cell count 11.3, ESR 78, C-reactive protein 34.2. He was advised to elevate his limb at least 20 min/hour. To follow-up with vascular surgery as advised. He rescheduled his abdominal CT scan and did follow up with Dr. Maloney as advised. He does have a pending reconstructive vascular surgery intervention planned for within the next 2 weeks. Nurse Jauregui did call vascular surgery office and confirmed that he does need to have a left lower extremity angiogram to address his arterial disease there is suspected bilateral superficial femoral artery occlusion is noted which seemed to be his main issue at this time. Dr. Maloney is also concerned about his left greater saphenous vein reflux and recommend 24-hour compression and will consider a left EVLT procedure and bilateral ultrasound-guided sclero procedure. The vascular surgery office will call him tomorrow to confirm the scheduled time. He had a previous updated noninvasive vascular studies performed at [facility] with bilateral dp and pt monophasic waveforms and right manpreet of 0.56 an left of 0.49. His previous venous Doppler results were reviewed and were negative for deep venous thrombosis. He was advised to monitor this and he demonstrates understanding. To continue nutritional supplementation optimize healing. To continue with Tubigrip compression to decrease leg edema. I recommend orthopedic surgical referral for bone debridement and biopsy versus amputation. His continued response and vascular status will help make this decision. This case was discussed with Dr. Grier and recommendations include vascular reconstruction if this is a possibility versus above-knee amputation. To return to clinic in 1 week or call sooner if he has any questions or concerns. The goal is to keep this leg free of active infection or worsening status until his definitive plan is completed. He understands his delay in completing treatment recommendations is compromising his care plan and his ability to salvage his limb. I answered all of his questions.
== END 2018-08-17 23:59 ==
LOC: WC 15:00
PROVIDERS: Family Provider Internal Medicine; PCP Internal Medicine; Referring Provider Podiatrist; Visit Provider Podiatrist
DX: I87.2 Venous insufficiency (chronic) (peripheral) (principal); I73.9 Peripheral vascular disease, unspecified; Z86.14 Personal history of Methicillin resistant Staphylococcus aureus infection; L97.822 Non-pressure chronic ulcer of other part of left lower leg with fat layer exposed; L97.821 Non-pressure chronic ulcer of other part of left lower leg limited to breakdown of skin; I48.91 Unspecified atrial fibrillation; G62.9 Polyneuropathy, unspecified; Z91.19 Patient's noncompliance with other medical treatment and regimen; I50.22 Chronic systolic (congestive) heart failure; M86.8X6 Other osteomyelitis, lower leg
CPT/HCPCS: 97597; 97598; 99214; G0463

== ENCOUNTER 2018-09-12 15:00 | Outpatient (RCR) | payer MEDICARE, OTHER, SELFPAY ==
[2018-08-18 00:40] VITALS: BP 118/69; PULSE 116; RESP 22; TEMP 35.9
[2018-08-22 15:21] VITALS: BP 132/73; PULSE 74; RESP 18; TEMP 36.3; BMI 65.4
--- NOTE | 2018-08-22 16:51 | PN.PCM_ITS ---
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 layer exposed Status: Chronic Code(s): L97.922 - Non-pressure chronic ulcer of unspecified part of left lower leg with fat layer exposed (5) Venous insufficiency Status: Chronic Code(s): I87.2 - Venous insufficiency (chronic) (peripheral) (6) Delayed wound healing Status: Chronic Code(s): T14.8XXD - Other injury of unspecified body region, subsequent encounter (7) Peripheral vascular disease of extremity with claudication Status: Chronic Code(s): I73.9 - Peripheral vascular disease, unspecified Type of Wound Date of Service: 08/22/18 Chief Complaint: Follow-up on left lower leg ulcers History of Wound: 77-year-old male who had surgery with Dr. Maloney in July for his small vessel occlusions in the left leg and venous insufficiency follows up today for two chronic non healing left left lower extremity wounds. He reports he is supposed to have reconstructive vascular artery surgery next week on 08/31/18. He denies fever, chill, nausea, vomiting, loss of appetite, odor, streaking to the leg. He is tired. Progress of Wound: Worse with increased ulcer sizes - Physical Exam Vital Signs Temp Pulse Resp BP 97.3 F L 74 18 132/73 H 08/22/18 15:21 08/22/18 15:21 08/22/18 15:21 08/22/18 15:21 General: Alert, Oriented x3, Cooperative Extremities: No cyanosis, Capillary Refill Less than 3 Seconds, No Calf Tenderness - Negative Travon Bilateral, Diminished Peripheral Pulses, Edema - Left lower extremity, Tenderness - Minimal pain with ulcer manipulations to left leg Skin: Ulcer/ Wound - There is no purulence erythema or proximal streaking left lower extremity. There is continued exposed discolored and devascularized and devitalized tendon and bone of the anterior left leg ulcer site. The ulcer sizes to the anterior and posterior aspect of the left leg have also continue to expand and increase. The peripheral skin is hairless and atrophic. Wound Measurements and Assessment WC - Nurse 1 - General Ulcer Measurement Start: 08/22/18 15:20 Freq: Status: Active Protocol: Activity Type Activity Date Activity User E-Sign Co-Sign Detail Recorded Client Recorded Date Recorded By Document 08/22/18 15:21 RB [id number] 08/22/18 15:41 RB 08/22/18 15:21 Wound Center Nurse 1 [Ulcer Assessment] #6 L Christensen -Combined with other wound No -Current Size (cm) - Length 23.2 -Current Size (cm) - Width 12.8 -Current Size (cm) - Depth 0.9 -Total Square Cm 296.96 -Tunneling No -Undermining/Tunneling No -Circular Undermining No -Exudate Amt Large (67-100%) -Exudate Type Serosanguineous -Wound Margin Thickened & Rolled Under -Granulation Amt Small (1-33%) -Granulation Quality [place] Red -Slough/Fibrin Yes -Necrosis Amt Large (67-100%) -Necrotic Tissue Type Adherent Slough -Structure Exposed Tendon Fascia Muscle Bone -Texture (Cyndy-wound Skin Appearance) Assessed Localized Edema -Moisture (Cyndy-wound Skin Appearance Assessed ) Dry/Scaly -Color (Cyndy-wound Skin Appearance) Erythema Hemosiderin Staining -Temperature (Cyndy-wound Skin No Abnormality Appearance) (Pt Warm) -Tenderness on Palpation (Cyndy-wound No Skin Appearance) -Ulcer Cleansing Wound Cleanser -Foul Odor after Cleansing Yes -Anesthetic Used 4% Lidocaine Solution 5% Lidocaine Gel #5 LLE Post -Combined with other wound No -Current Size (cm) - Length 7 -Current Size (cm) - Width 6 -Current Size (cm) - Depth 0.4 -Total Square Cm 42 -Photo Taken No -Tunneling No -Undermining/Tunneling No -Circular Undermining No -Exudate Amt Medium (34-66%) -Exudate Type Serosanguineous -Wound Margin Thickened & Rolled Under -Granulation Amt Medium (34-66%) -Granulation Quality [place] -Slough/Fibrin Yes -Necrosis Amt Large (67-100%) -Necrotic Tissue Type Adherent Slough -Structure Exposed N/A -Texture (Cyndy-wound Skin Appearance) Localized Edema -Moisture (Cyndy-wound Skin Appearance Assessed ) Dry/Scaly -Color (Cyndy-wound Skin Appearance) Hemosiderin Staining -Tenderness on Palpation (Cyndy-wound No Skin Appearance) -Ulcer Cleansing Wound Cleanser -Foul Odor after Cleansing Yes -Anesthetic Used 4% Lidocaine Solution 5% Lidocaine Gel [Edema Assessment] -Lower Limb Edema Present Yes -Right Calf (cm) 34.2 -Right Ankle (cm) 24 -Left Calf (cm) 42.3 -Left Ankle (cm) 28.5 WC - Nurse 2 - General Ulcer CM Notes Start: 08/22/18 15:20 Freq: Status: Active Protocol: Activity Type Activity Date Activity User E-Sign Co-Sign Detail Recorded Client Recorded Date Recorded By Document 08/22/18 16:11 MAGALYS [id number] 08/22/18 16:13 MAGALYS 08/22/18 16:11 Wound Center Nurse 2 [Procedure/Treatment] #6 L Christensen -Time 16:12 -Correct Patient Yes -Correct Side, Site, Position Yes -Correct Procedure Yes -Procedure Performed Yes -Type of Procedure Debridement -Clinical Debridement Muscle -Post Debridement Size (cm) - Length 23.2 -Post Debridement Size (cm) - Width 12.8 -Post Debridement Size (cm) - Depth 0.9 -Total Square Cm 296.96 -Wound/Ulcer Outcome Not Healed -Ulcer Cleansing Rinsed/ Irrigated with Saline -Foul Odor after Cleansing No -Bioengineered Tissue No -Bleeding Controlled with Pressure -Other <20 sq cm tendon debrided . -Offloading No -Treatment Response Procedure Tolerated Well #5 LLE Post -Time 16:12 -Correct Patient Yes -Correct Side, Site, Position Yes -Correct Procedure Yes -Procedure Performed Yes -Type of Procedure Debridement -Clinical Debridement Selective -Post Debridement Size (cm) - Length 7 -Post Debridement Size (cm) - Width 6 -Post Debridement Size (cm) - Depth 0.4 -Total Square Cm 42 -Wound/Ulcer Outcome Not Healed -Ulcer Cleansing Rinsed/ Irrigated with Saline -Foul Odor after Cleansing No -Bioengineered Tissue No -Bleeding Controlled with Pressure -Other 20 sq cm selectively debrided. -Offloading No -Treatment Response Procedure Tolerated Well [See Physician Procedure note for Specifics] Pain Scale: 0-10 Numeric [Pain] -Is Patient Pain Free? Yes Musculoskeletal: No Tenderness to Palpation of Joints or Extremities, Muscle Wasting Neurological: - - Lack of normal epicritic sensation light touch left lower extremity Psych/Mental Status: Normal Affect, Appropriate Debridement Note Post-Debridement Measurements/Treatment WC - Nurse 2 - General Ulcer CM Notes Start: 08/22/18 15:20 Freq: Status: Active Protocol: Activity Type Activity Date Activity User E-Sign Co-Sign Detail Recorded Client Recorded Date Recorded By Document 08/22/18 16:11 MAGALYS [id number] 08/22/18 16:13 MAGALYS 08/22/18 16:11 Wound Center Nurse 2 #6 L Christensen -Time 16:12 -Correct Patient Yes -Correct Side, Site, Position Yes -Correct Procedure Yes -Procedure Performed Yes -Type of Procedure Debridement -Clinical Debridement Muscle -Post Debridement Size (cm) - Length 23.2 -Post Debridement Size (cm) - Width 12.8 -Post Debridement Size (cm) - Depth 0.9 -Total Square Cm 296.96 -Wound/Ulcer Outcome Not Healed -Ulcer Cleansing Rinsed/ Irrigated with Saline -Foul Odor after Cleansing No -Bioengineered Tissue No -Bleeding Controlled with Pressure -Other <20 sq cm tendon debrided . -Offloading No -Treatment Response Procedure Tolerated Well #5 LLE Post -Time 16:12 -Correct Patient Yes -Correct Side, Site, Position Yes -Correct Procedure Yes -Procedure Performed Yes -Type of Procedure Debridement -Clinical Debridement Selective -Post Debridement Size (cm) - Length 7 -Post Debridement Size (cm) - Width 6 -Post Debridement Size (cm) - Depth 0.4 -Total Square Cm 42 -Wound/Ulcer Outcome Not Healed -Ulcer Cleansing Rinsed/ Irrigated with Saline -Foul Odor after Cleansing No -Bioengineered Tissue No -Bleeding Controlled with Pressure -Other 20 sq cm selectively debrided. -Offloading No -Treatment Response Procedure Tolerated Well Pain Scale: 0-10 Numeric Is Patient Pain Free? Yes Wound debrided: posterior leg Laterality: Left Type of Debridement: Selective debridement Anesthesia Used: 5% Lidocaine Gel Depth: in the subcutaneous layer Percentage of wound debrided: 100 Instrument Used: #15 blade Tissue Removed: devitalized tissues, biofilm, slough, fibrous Severity: Fat Layer Exposed Amount of bleeding with debridement: Mild Bleeding Controlled with: Pressure Patient tolerated procedure well Assessment/Plan Assessment: Left lower leg ulcer-anterior (tendon and bone exposed) and posterior (subcutaneous tissue exposed). Osteomyelitis left tibia. Peripheral vascular disease. 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 Bilateral lower leg edema swelling increased in the left leg. Neuropathy lower extremities. Atrial fibrillation. Non compliance. Venous insufficiency. Left acute DVT has been ruled out Plan: I reviewed and discussed his care plan. Selective debridement was performed as noted in the clinical panel and he tolerated this well to the posterior leg site. Progressive deterioration and black discoloration of tendinous structures are noted to the anterior ulcer site and therefore e xcisional tendon and muscle debridement was performed as noted in the clinical panel. The peripheral subcutaneous tissue was selectively debrided. To wash leg daily with gentle Dial soap and water. To change the dressing with Adaptic and Aquacel Ag to the posterior ulcer site and Betadine gauze to the anterior leg site. I recommend we continue packing the gauze corner between the two anterior lateral leg muscle sites that remain. His leg x-rays demonstrated progressive osteolysis of his left tibia consistent with osteomyelitis. His recent lab work was also reviewed from the including white blood cell count 11.3, ESR 78, C-reactive protein 34.2. He was advised to elevate his limb at least 20 min/hour. To follow-up with vascular surgery as advised. He rescheduled his abdominal CT scan and did follow up with Dr. Maloney as advised. He does have a pending reconstructive vascular surgery intervention planned for August 31, 2018. A left lower extremity angiogram to address his arterial disease there is suspected bilateral superficial femoral artery occlusion is noted which seemed to be his main issue at this time. Dr. Maloney is also concerned about his left greater saphenous vein reflux and recommend 24-hour compression and will consider a left EVLT procedure and bilateral ultrasound- guided sclero procedure. He had a previous updated noninvasive vascular studie s performed at [facility] with bilateral dp and pt monophasic waveforms and right manpreet of 0.56 an left of 0.49. His previous venous Doppler results were reviewed and were negative for deep venous thrombosis. He was advised to monitor this and he demonstrates understanding. To continue nutritional supplementation optimize healing. To continue with Tubigrip compression to decrease leg edema. I recommend orthopedic surgical referral for bone debridement and biopsy versus amputation. His continued response and vascular status will help make this decision. This case was discussed with Dr. Grier and recommendations include vascular reconstruction if this is a possibility versus above-knee amputation. To return to clinic in 1 week or call sooner if he has any questions or concerns. The goal is to keep this leg free of active infection or worsening status until his definitive plan is completed. He understands his delay in completing treatment recommendations is compromising his care plan and his ability to salvage his limb. I answered all of his questions.
[2018-09-05 15:28] VITALS: BP 124/83; PULSE 127; RESP 22; TEMP 37.4; BMI 65.4
--- NOTE | 2018-09-05 16:25 | PCM.WC.PN ---
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 Current Visit: Yes Code(s): L97.924 - Non-pressure chronic ulcer of unspecified part of left lower leg with necrosis of bone (3) Osteomyelitis of left tibia Status: Chronic Current Visit: Yes Qualifiers: Code(s): M86.9 - Osteomyelitis, unspecified (4) Ulcer of left lower extremity with fat layer exposed Status: Chronic Current Visit: Yes Code(s): L97.922 - Non-pressure chronic ulcer of unspecified part of left lower leg with fat layer exposed (5) Venous insufficiency Status: Chronic Current Visit: Yes Code(s): I87.2 - Venous insufficiency (chronic) (peripheral) (6) Delayed wound healing Status: Chronic Current Visit: Yes Code(s): T14.8XXD - Other injury of unspecified body region, subsequent encounter (7) Peripheral vascular disease of extremity with claudication Status: Chronic Current Visit: Yes Code(s): I73.9 - Peripheral vascular disease, unspecified Type of Wound Chief Complaint: Follow-up on left lower leg ulcers History of Wound: 77-year-old male who had surgery with Dr. Maloney in July for his small vessel occlusions in the left leg and venous insufficiency follows up today for two chronic non healing left left lower extremity wounds. He reports he is supposed to have reconstructive vascular artery surgery next week on 08/31/18. He denies fever, chill, nausea, vomiting, loss of appetite, odor, streaking to the leg. He is tired. Progress of Wound: Worse with increased ulcer sizes - Physical Exam Vital Signs Temp Pulse Resp BP 99.3 F H 127 H 22 H 124/83 H 09/05/18 15:28 09/05/18 15:28 09/05/18 15:28 09/05/18 15:28 Wound Measurements and Assessment WC - Nurse 1 - General Ulcer Measurement Start: 08/22/18 15:20 Freq: Status: Active Protocol: Activity Type Activity Date Activity User E-Sign Co-Sign Detail Recorded Client Recorded Date Recorded By Document 09/05/18 15:28 DL [id number] 09/05/18 15:43 DL 09/05/18 15:28 Wound Center Nurse 1 [Ulcer Assessment] #6 L Christensen -Combined with other wound No -Current Size (cm) - Length 24.5 -Current Size (cm) - Width 12.5 -Current Size (cm) - Depth 0.5 -Total Square Cm 306.25 -Date of Last Picture (Recall this 09/05/18 field) -Photo Taken Yes -Epithelialization None Present -Tunneling No -Undermining/Tunneling No -Circular Undermining No -Classification - Thickness Full Thickness with Exposed Support Structure -Exudate Amt Large (67-100%) -Exudate Type Yellow/Green -Wound Margin Thickened -Granulation Amt None Present (0 %) -Granulation Quality N/A -Slough/Fibrin Yes -Necrosis Amt Large (67-100%) -Necrotic Tissue Type Adherent Slough -Structure Exposed Tendon Fascia Muscle Bone Fat Layer Exposed -Texture (Cyndy-wound Skin Appearance) Assessed -Moisture (Cyndy-wound Skin Appearance Assessed ) -Color (Cyndy-wound Skin Appearance) Assessed Ecchymosis -Temperature (Cyndy-wound Skin No Abnormality Appearance) (Pt Warm) -Tenderness on Palpation (Cyndy-wound Yes Skin Appearance) -Ulcer Cleansing Rinsed/ Irrigated with Saline -Foul Odor after Cleansing Yes -Anesthetic Used 4% Lidocaine Solution #5 LLE Post -Combined with other wound No -Current Size (cm) - Length 9.0 -Current Size (cm) - Width 5.5 -Current Size (cm) - Depth 0.4 -Total Square Cm 49.50 -Date of Last Picture (Recall this 09/05/18 field) -Photo Taken Yes -Epithelialization None Present -Undermining/Tunneling No -Circular Undermining No -Classification - Thickness Full Thickness without Exposed Support Structure -Exudate Amt Medium (34-66%) -Exudate Type Yellow/Green -Wound Margin Indistinct, Non -Visible -Granulation Amt None Present (0 %) -Granulation Quality N/A -Slough/Fibrin Yes -Necrosis Amt Large (67-100%) -Necrotic Tissue Type Adherent Slough -Structure Exposed Fascia Fat Layer Exposed -Texture (Cyndy-wound Skin Appearance) Assessed Scarring -Moisture (Cynyd-wound Skin Appearance Assessed ) Weeping -Color (Cyndy-wound Skin Appearance) Assessed Erythema -Temperature (Cyndy-wound Skin No Abnormality Appearance) (Pt Warm) -Tenderness on Palpation (Cyndy-wound No Skin Appearance) -Ulcer Cleansing Rinsed/ Irrigated with Saline -Foul Odor after Cleansing Yes -Anesthetic Used 4% Lidocaine Solution BETI - Nurse 2 - General Ulcer CM Notes Start: 08/22/18 15:20 Freq: Status: Active Protocol: Activity Type Activity Date Activity User E-Sign Co-Sign Detail Recorded Client Recorded Date Recorded By Document 09/05/18 16:04 [id number] 09/05/18 16:08 09/05/18 16:04 Wound Center Nurse 2 [Procedure/Treatment] #6 L Christensen -Time 16:04 -Correct Patient Yes -Correct Side, Site, Position Yes -Correct Procedure Yes -Procedure Performed Yes -Type of Procedure Debridement -Clinical Debridement Muscle Selective -Post Debridement Size (cm) - Length 24.5 -Post Debridement Size (cm) - Width 12.5 -Post Debridement Size (cm) - Depth 0.5 -Total Square Cm 306.25 -Wound/Ulcer Outcome Not Healed -Ulcer Cleansing Rinsed/ Irrigated with Saline -Foul Odor after Cleansing No -Bioengineered Tissue No -Bleeding Controlled with Pressure -Offloading No -Treatment Response Procedure Tolerated Well #5 LLE Post -Time 16:04 -Correct Patient Yes -Correct Side, Site, Position Yes -Correct Procedure Yes -Procedure Performed Yes -Type of Procedure Debridement -Clinical Debridement Selective -Post Debridement Size (cm) - Length 8 -Post Debridement Size (cm) - Width 5.5 -Post Debridement Size (cm) - Depth 0.4 -Total Square Cm 44.0 -Wound/Ulcer Outcome Not Healed -Ulcer Cleansing Rinsed/ Irrigated with Saline -Foul Odor after Cleansing No -Bioengineered Tissue No -Bleeding Controlled with Pressure -Offloading No -Treatment Response Procedure Tolerated Well [See Physician Procedure note for Specifics] Pain Scale: 0-10 Numeric [Pain] -Is Patient Pain Free? Yes Debridement Note Post-Debridement Measurements/Treatment BETI - Nurse 2 - General Ulcer CM Notes Start: 08/22/18 15:20 Freq: Status: Active Protocol: Activity Type Activity Date Activity User E-Sign Co-Sign Detail Recorded Client Recorded Date Recorded By Document 08/22/18 16:11 [id number] 08/22/18 16:13 Document 09/05/18 16:04 [id number] 09/05/18 16:08 08/22/18 09/05/18 16:11 16:04 Wound Center Nurse 2 #6 L Christensen -Time 16:12 16:04 -Correct Patient Yes Yes -Correct Side, Site, Position Yes Yes -Correct Procedure Yes Yes -Procedure Performed Yes Yes -Type of Procedure Debridement Debridement -Clinical Debridement Muscle Muscle Selective -Post Debridement Size (cm) - Length 23.2 24.5 -Post Debridement Size (cm) - Width 12.8 12.5 -Post Debridement Size (cm) - Depth 0.9 0.5 -Total Square Cm 296.96 306.25 -Wound/Ulcer Outcome Not Healed Not Healed -Ulcer Cleansing Rinsed/ Rinsed/ Irrigated with Irrigated with Saline Saline -Foul Odor after Cleansing No No -Bioengineered Tissue No No -Bleeding Controlled with Pressure Pressure -Other <20 sq cm tendon debrided . -Offloading No No -Treatment Response Procedure Procedure Tolerated Well Tolerated Well #5 LLE Post -Time 16:12 16:04 -Correct Patient Yes Yes -Correct Side, Site, Position Yes Yes -Correct Procedure Yes Yes -Procedure Performed Yes Yes -Type of Procedure Debridement Debridement -Clinical Debridement Selective Selective -Post Debridement Size (cm) - Length 7 8 -Post Debridement Size (cm) - Width 6 5.5 -Post Debridement Size (cm) - Depth 0.4 0.4 -Total Square Cm 42 44.0 -Wound/Ulcer Outcome Not Healed Not Healed -Ulcer Cleansing Rinsed/ Rinsed/ Irrigated with Irrigated with Saline Saline -Foul Odor after Cleansing No No -Bioengineered Tissue No No -Bleeding Controlled with Pressure Pressure -Other 20 sq cm selectively debrided. -Offloading No No -Treatment Response Procedure Procedure Tolerated Well Tolerated Well Pain Scale: 0-10 Numeric Is Patient Pain Free? Yes Yes Wound debrided: posterioe leg Laterality: Left Type of Debridement: Selective debridement Anesthesia Used: 4% Lidocaine Solution Depth: Down to and including healthy tissue, in the subcutaneous layer Percentage of wound debrided: 100 Instrument Used: #15 blade Tissue Removed: fibrous, devitalized tissue, biofilm, slough Severity: Fat Layer Exposed Amount of bleeding with debridement: Mild Bleeding Controlled with: Pressure Patient tolerated procedure well - Additional Wound Wound debrided: anterior leg Laterality: Left Type of Debridement: Excisional debridement Anesthesia Used: 4% Lidocaine Solution Depth: to muscle Percentage of wound debrided: 20 - 20% of the ulcer site included the tendon debridement. 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 Osteomyelitis left tibia. Peripheral vascular disease. 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 Bilateral lower leg edema swelling increased in the left leg. Neuropathy lower extremities. Atrial fibrillation. Non compliance. Venous insufficiency. Left acute DVT has been ruled out Plan: I reviewed and discussed his care plan. Selective and excisional tendon debridement was performed as noted in the clinical panel and he tolerated this well. Progressive deterioration and black discoloration of tendinous structures are noted to the anterior ulcer site and therefore excisional tendon and muscle debridement was performed as noted in the clinical panel. The peripheral subcutaneous tissue was selectively debrided. To wash leg daily with gentle Dial soap and water. To change the dressing with Aquacel Ag to the posterior and anterior ulcer sites. To additionally apply Betadine gauze to the anterior leg site where the tendon is starting to liquefy. His leg x-rays demonstrated progressive osteolysis of his left tibia consistent with osteomyelitis. His recent lab work was also reviewed from the including white blood cell count 11.3, ESR 78, C-reactive protein 34.2. He was advised to elevate his limb at least 20 min/hour. To follow-up with vascular surgery as advised. He he did have a recent vascular surgery intervention on August 31, 2018, and he is very fatigued since he has returned home. He is having leg pain since the procedure and this is recently started to improve. A left lower extremity angiogram to address his arterial disease there is suspected bilateral superficial femoral artery occlusion is noted which seemed to be his main issue at this time. He will return for a femoropopliteal bypass in September 2018; scheduling is pending. Dr. Maloney is also concerned about his left greater saphenous vein reflux and recommend 24-hour compression and will consider a left EVLT procedure and bilateral ultrasound-guided sclero procedure. He had a previous updated noninvasive vascular studies performed at [facility] with bilateral dp and pt monophasic waveforms and right manpreet of 0.56 an left of 0.49. His previous venous Doppler results were reviewed and were negative for deep venous thrombosis. He was advised to monitor this and he demonstrates understanding. To continue nutritional supplementation optimize healing. To continue with Tubigrip compression to decrease leg edema. I recommend orthopedic surgical referral for bone debridement and biopsy versus amputation. His continued response and vascular status will help make this decision. This case was previously discussed with Dr. Grier who is also on consultation for this case. To return to clinic in 1 week or call sooner if he has any questions or concerns. The goal is to keep this leg free of active infection or worsening status until his definitive plan is completed. He understands his delay in completing treatment recommendations is compromising his care plan and his ability to salvage his limb. I answered all of his questions.
[2018-09-12 15:07] VITALS: BP 91/40; PULSE 117; RESP 18; TEMP 37.3; BMI 65.4
--- NOTE | 2018-09-12 16:00 | PCM.WC.PN ---
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 Current Visit: Yes Code(s): L97.924 - Non-pressure chronic ulcer of unspecified part of left lower leg with necrosis of bone (3) Osteomyelitis of left tibia Status: Chronic Current Visit: Yes Qualifiers: Code(s): M86.9 - Osteomyelitis, unspecified (4) Ulcer of left lower extremity with fat layer exposed Status: Chronic Current Visit: Yes Code(s): L97.922 - Non-pressure chronic ulcer of unspecified part of left lower leg with fat layer exposed (5) Venous insufficiency Status: Chronic Current Visit: Yes Code(s): I87.2 - Venous insufficiency (chronic) (peripheral) (6) Delayed wound healing Status: Chronic Current Visit: Yes Code(s): T14.8XXD - Other injury of unspecified body region, subsequent encounter (7) Peripheral vascular disease of extremity with claudication Status: Chronic Current Visit: Yes Code(s): I73.9 - Peripheral vascular disease, unspecified Type of Wound Date of Service: 09/12/18 Chief Complaint: Follow-up on left lower leg ulcers History of Wound: 77-year-old male who had surgery with Dr. Maloney in July for his small vessel occlusions in the left leg and venous insufficiency follows up today for two chronic non healing left left lower extremity wounds. He reports he is supposed to have reconstructive vascular artery surgery. He reports he is apprehensive to proceed with the scheduling because he does not know the details of the surgical plan. He was reports he was supposed to receive this in writing and has never see this. He has many questions about this today. He has not recently called vascular to assess his questions this past week. He denies fever, chill, nausea, vomiting, loss of appetite, odor, streaking to the leg. He is with his friend today. Progress of Wound: Continued deteriorating ulcer status - Physical Exam Vital Signs Temp Pulse Resp BP 99.1 F 117 H 18 91/40 L 09/12/18 15:07 09/12/18 15:07 09/12/18 15:07 09/12/18 15:07 General: Alert, Oriented x3, Cooperative Extremities: No cyanosis, Capillary Refill Less than 3 Seconds, No Calf Tenderness - Negative Travon and Araya sign left lower extremity, Diminished Peripheral Pulses, Edema - Left lower extremity mild Skin: Ulcer/ Wound - No purulence, odor, erythema, streaking. The peripheral skin is hairless and atrophic. There is continued devitalization, liquid fixation, and dark discoloration to the extensor tendons to the mid left leg. There is also continued exposed tibia bone that is discolored soft and moth-eaten appearance. There is also subcutaneous tissue in the wound bed that is granular and fibrous. Wound Measurements and Assessment WC - Nurse 1 - General Ulcer Measurement Start: 08/22/18 15:20 Freq: Status: Active Protocol: Activity Type Activity Date Activity User E-Sign Co-Sign Detail Recorded Client Recorded Date Recorded By Document 09/12/18 15:07 DV [id number] 09/12/18 15:23 DV 09/12/18 15:07 Wound Center Nurse 1 [Ulcer Assessment] #6 L Christensen -Combined with other wound No -Current Size (cm) - Length 25.2 -Current Size (cm) - Width 11.0 -Current Size (cm) - Depth 0.7 -Total Square Cm 277.20 -Photo Taken No -Epithelialization None Present -Tunneling No -Undermining/Tunneling No -Circular Undermining No -Exudate Amt Large (67-100%) -Exudate Type Serosanguineous -Wound Margin Thickened & Rolled Under -Granulation Amt None Present (0 %) -Granulation Quality N/A -Slough/Fibrin No -Necrosis Amt Large (67-100%) -Necrotic Tissue Type Eschar -Structure Exposed Tendon Fascia Muscle Bone Fat Layer Exposed -Texture (Cyndy-wound Skin Appearance) Assessed -Moisture (Cyndy-wound Skin Appearance Assessed ) -Color (Cyndy-wound Skin Appearance) Assessed -Temperature (Cyndy-wound Skin No Abnormality Appearance) (Pt Warm) -Tenderness on Palpation (Cyndy-wound No Skin Appearance) -Ulcer Cleansing Wound Cleanser -Foul Odor after Cleansing No -Anesthetic Used 4% Lidocaine Solution #5 LLE Post -Combined with other wound No -Current Size (cm) - Length 9.3 -Current Size (cm) - Width 5.7 -Current Size (cm) - Depth 0.4 -Total Square Cm 53.01 WC - Nurse 2 - General Ulcer CM Notes Start: 08/22/18 15:20 Freq: Status: Active Protocol: Activity Type Activity Date Activity User E-Sign Co-Sign Detail Recorded Client Recorded Date Recorded By Document 09/12/18 15:32 [id number] 09/12/18 15:37 09/12/18 15:32 Wound Center Nurse 2 [Procedure/Treatment] #6 L Christensen -Time 15:32 -Correct Patient Yes -Correct Side, Site, Position Yes -Correct Procedure Yes -Procedure Performed Yes -Type of Procedure Debridement -Clinical Debridement Muscle -Post Debridement Size (cm) - Length 25.3 -Post Debridement Size (cm) - Width 11 -Post Debridement Size (cm) - Depth 0.7 -Total Square Cm 278.3 -Wound/Ulcer Outcome Not Healed -Ulcer Cleansing Rinsed/ Irrigated with Saline -Foul Odor after Cleansing No -Bioengineered Tissue No -Bleeding Controlled with Pressure -Offloading No -Treatment Response Procedure Tolerated Well #5 LLE Post -Time 15:32 -Correct Patient Yes -Correct Side, Site, Position Yes -Correct Procedure Yes -Procedure Performed Yes -Type of Procedure Debridement -Clinical Debridement Subcutaneous -Post Debridement Size (cm) - Length 9.3 -Post Debridement Size (cm) - Width 5.8 -Post Debridement Size (cm) - Depth 0.4 -Total Square Cm 53.94 -Wound/Ulcer Outcome Not Healed -Ulcer Cleansing Rinsed/ Irrigated with Saline -Foul Odor after Cleansing No -Bioengineered Tissue No -Bleeding Controlled with Pressure -Offloading No -Treatment Response Procedure Tolerated Well [See Physician Procedure note for Specifics] Pain Scale: 0-10 Numeric [Pain] -Is Patient Pain Free? Yes Musculoskeletal: No Tenderness to Palpation of Joints or Extremities, Muscle Wasting, Tenderness - Tenderness with ulcer manipulation Psych/Mental Status: Normal Affect, Appropriate, Anxious Debridement Note Post-Debridement Measurements/Treatment WC - Nurse 2 - General Ulcer CM Notes Start: 08/22/18 15:20 Freq: Status: Active Protocol: Activity Type Activity Date Activity User E-Sign Co-Sign Detail Recorded Client Recorded Date Recorded By Document 08/22/18 16:11 [id number] 08/22/18 16:13 Document 09/05/18 16:04 [email or web address] 09/05/18 16:08 Document 09/12/18 15:32 [id number] 09/12/18 15:37 08/22/18 09/05/18 09/12/18 16:11 16:04 15:32 Wound Center Nurse 2 #6 L Christensen -Time 16:12 16:04 15:32 -Correct Patient Yes Yes Yes -Correct Side, Site, Position Yes Yes Yes -Correct Procedure Yes Yes Yes -Procedure Performed Yes Yes Yes -Type of Procedure Debridement Debridement Debridement -Clinical Debridement Muscle Muscle Muscle Selective -Post Debridement Size (cm) - Length 23.2 24.5 25.3 -Post Debridement Size (cm) - Width 12.8 12.5 11 -Post Debridement Size (cm) - Depth 0.9 0.5 0.7 -Total Square Cm 296.96 306.25 278.3 -Wound/Ulcer Outcome Not Healed Not Healed Not Healed -Ulcer Cleansing Rinsed/ Rinsed/ Rinsed/ Irrigated with Irrigated with Irrigated with Saline Saline Saline -Foul Odor after Cleansing No No No -Bioengineered Tissue No No No -Bleeding Controlled with Pressure Pressure Pressure -Other <20 sq cm tendon debrided . -Offloading No No No -Treatment Response Procedure Procedure Procedure Tolerated Well Tolerated Well Tolerated Well #5 LLE Post -Time 16:12 16:04 15:32 -Correct Patient Yes Yes Yes -Correct Side, Site, Position Yes Yes Yes -Correct Procedure Yes Yes Yes -Procedure Performed Yes Yes Yes -Type of Procedure Debridement Debridement Debridement -Clinical Debridement Selective Selective Subcutaneous -Post Debridement Size (cm) - Length 7 8 9.3 -Post Debridement Size (cm) - Width 6 5.5 5.8 -Post Debridement Size (cm) - Depth 0.4 0.4 0.4 -Total Square Cm 42 44.0 53.94 -Wound/Ulcer Outcome Not Healed Not Healed Not Healed -Ulcer Cleansing Rinsed/ Rinsed/ Rinsed/ Irrigated with Irrigated with Irrigated with Saline Saline Saline -Foul Odor after Cleansing No No No -Bioengineered Tissue No No No -Bleeding Controlled with Pressure Pressure Pressure -Other 20 sq cm selectively debrided. -Offloading No No No -Treatment Response Procedure Procedure Procedure Tolerated Well Tolerated Well Tolerated Well Pain Scale: 0-10 Numeric Is Patient Pain Free? Yes Yes Yes Wound debrided: anterior leg Laterality: Left Type of Debridement: Excisional debridement Anesthesia Used: 5% Lidocaine Gel Depth: to muscle Percentage of wound debrided: 60 - devitalized subcutaneous, 30 - devitalized tendon Instrument Used: #15 blade, Forceps Tissue Removed: fibrous, devitalized subcutaneous and tendon, biofilm, slough Severity: Necrosis of Muscle Amount of bleeding with debridement: Mild Bleeding Controlled with: Pressure Patient tolerated procedure well - Additional Wound Wound debrided: posterior leg Laterality: Left Type of Debridement: Excisional debridement Anesthesia Used: 5% Lidocaine Gel Depth: in the subcutaneous layer Percentage of wound debrided: 100 Instrument Used: #15 blade Tissue Removed: fibrous, devitalized subcutaneous, biofilm, slough Severity: Fat Layer Exposed Amount of bleeding with debridement: Mild Bleeding Controlled with: Pressure Patient tolerated procedure: Patient tolerated procedure well Assessment/Plan Active Problems Osteomyelitis of left tibia (Chronic) Ulcer of left lower extremity with fat layer exposed (Chronic) 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 Osteomyelitis left tibia. Peripheral vascular disease. 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 Bilateral lower leg edema swelling increased in the left leg. Neuropathy lower extremities. Atrial fibrillation. Non compliance. Venous insufficiency. Left acute DVT has been ruled out Plan: I reviewed and discussed his care plan. excisional tendon debridement was performed as noted in the clinical panel and he tolerated this well. Progressive deterioration and black discoloration of tendinous structures are noted to the anterior ulcer site and therefore excisional tendon and muscle debridement was performed as noted in the clinical panel. The peripheral subcutaneous tissue was selectively debrided. To wash leg daily with gentle Dial soap and water. To change the dressing with Aquacel Ag to the posterior and anterior ulcer sites. To additionally apply Betadine gauze to the anterior leg site where the tendon is starting to liquefy. His leg x-rays demonstrated progressive osteolysis of his left tibia consistent with osteomyelitis. His recent lab work was also reviewed from the including white blood cell count 11.3, ESR 78, C-reactive protein 34.2. He was advised to elevate his limb at least 20 min/hour. To follow-up with vascular surgery as advised. He he did have a recent vascular surgery intervention on August 31, 2018. A left lower extremity angiogram to address his arterial disease there is suspected bilateral superficial femoral artery occlusion is noted which seemed to be his main issue at this time. He will return for a femoropopliteal bypass in September 2018; scheduling is pending. I have reviewed his vascular surgeons operation report and plan. It appears he will need to have additional cardiac clearance prior to proceeding with this next reconstructive surgery. Dr. Maloney is also concerned about his left greater saphenous vein reflux and recommend 24-hour compression and will consider a left EVLT procedure and bilateral ultrasound-guided sclero procedure. He had a previous updated noninvasive vascular studies performed at [facility] with bilateral dp and pt monophasic waveforms and right manpreet of 0.56 an left of 0.49. His previous venous Doppler results were reviewed and were negative for deep venous thrombosis. He was advised to monitor this and he demonstrates understanding. The patient has continued questions about his upcoming vascular surgery and I urged him to call and review this with the medical staff member over the phone or make another surgical consultation appointment. To continue nutritional supplementation optimize healing. To continue with Tubigrip compression to decrease leg edema. I recommend orthopedic surgical referral for bone debridement and biopsy versus amputation. His continued response and vascular status will help make this decision. This case was previously discussed with Dr. Grier who is also on consultation for this case. To return to clinic in 1 week or call sooner if he has any questions or concerns. The goal is to keep this leg free of active infection or worsening status until his definitive plan is completed. He understands his delay in completing treatment recommendations is compromising his care plan and his ability to salvage his limb. I answered all of his questions.
--- NOTE | 2018-09-12 16:05 | PN.PCM_ITS ---
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 Current Visit: Yes Code(s): L97.924 - Non-pressure chronic ulcer of unspecified part of left lower leg with necrosis of bone (3) Osteomyelitis of left tibia Status: Chronic Current Visit: Yes Qualifiers: Code(s): M86.9 - Osteomyelitis, unspecified (4) Ulcer of left lower extremity with fat layer exposed Status: Chronic Current Visit: Yes Code(s): L97.922 - Non-pressure chronic ulcer of unspecified part of left lower leg with fat layer exposed (5) Venous insufficiency Status: Chronic Current Visit: Yes Code(s): I87.2 - Venous insufficiency (chronic) (peripheral) (6) Delayed wound healing Status: Chronic Current Visit: Yes Code(s): T14.8XXD - Other injury of unspecified body region, subsequent encounter (7) Peripheral vascular disease of extremity with claudication Status: Chronic Current Visit: Yes Code(s): I73.9 - Peripheral vascular disease, unspecified Type of Wound Date of Service: 09/12/18 Chief Complaint: Follow-up on left lower leg ulcers History of Wound: 77-year-old male who had surgery with Dr. Maloney in July for his small vessel occlusions in the left leg and venous insufficiency follows up today for two chronic non healing left left lower extremity wounds. He reports he is supposed to have reconstructive vascular artery surgery. He reports he is apprehensive to proceed with the scheduling because he does not kn ow the details of the surgical plan. He was reports he was supposed to receive this in writing and has never see this. He has many questions about this today. He has not recently called vascular to assess his questions this past week. He denies fever, chill, nausea, vomiting, loss of appetite, odor, streaking to the leg. He is with his friend today. Progress of Wound: Continued deteriorating ulcer status - Physical Exam Vital Signs Temp Pulse Resp BP 99.1 F 117 H 18 91/40 L 09/12/18 15:07 09/12/18 15:07 09/12/18 15:07 09/12/18 15:07 General: Alert, Oriented x3, Cooperative Extremities: No cyanosis, Capillary Refill Less than 3 Seconds, No Calf Tendern ess - Negative Travon and Araya sign left lower extremity, Diminished Peripheral Pulses, Edema - Left lower extremity mild Skin: Ulcer/ Wound - No purulence, odor, erythema, streaking. The peripheral skin is hairless and atrophic. There is continued devitalization, liquid fixation, and dark discoloration to the extensor tendons to the mid left leg. There is also continued exposed tibia bone that is discolored soft and moth- eaten appearance. There is also subcutaneous tissue in the wound bed that is granular and fibrous. Wound Measurements and Assessment WC - Nurse 1 - General Ulcer Measurement Start: 08/22/18 15:20 Freq: Status: Active Protocol: Activity Type Activity Date Activity User E-Sign Co-Sign Detail Recorded Client Recorded Date Recorded By Document 09/12/18 15:07 DV [id number] 09/12/18 15:23 DV 09/12/18 15:07 Wound Center Nurse 1 [Ulcer Assessment] #6 L Christensen -Combined with other wound No -Current Size (cm) - Length 25.2 -Current Size (cm) - Width 11.0 -Current Size (cm) - Depth 0.7 -Total Square Cm 277.20 -Photo Taken No -Epithelialization None Present -Tunneling No -Undermining/Tunneling No -Circular Undermining No -Exudate Amt Large (67-100%) -Exudate Type Serosanguineous -Wound Margin Thickened & Rolled Under -Granulation Amt None Present (0 %) -Granulation Quality N/A -Slough/Fibrin No -Necrosis Amt Large (67-100%) -Necrotic Tissue Type Eschar -Structure Exposed Tendon Fascia Muscle Bone Fat Layer Exposed -Texture (Cyndy-wound Skin Appearance) Assessed -Moisture (Cyndy-wound Skin Appearance Assessed ) -Color (Cyndy-wound Skin Appearance) Assessed -Temperature (Cyndy-wound Skin No Abnormality Appearance) (Pt Warm) -Tenderness on Palpation (Cyndy-wound No Skin Appearance) -Ulcer Cleansing Wound Cleanser -Foul Odor after Cleansing No -Anesthetic Used 4% Lidocaine Solution #5 LLE Post -Combined with other wound No -Current Size (cm) - Length 9.3 -Current Size (cm) - Width 5.7 -Current Size (cm) - Depth 0.4 -Total Square Cm 53.01 - Nurse 2 - General Ulcer CM Notes Start: 08/22/18 15:20 Freq: Status: Active Protocol: Activity Type Activity Date Activity User E-Sign Co-Sign Detail Recorded Client Recorded Date Recorded By Document 09/12/18 15:32 [id number] 09/12/18 15:37 09/12/18 15:32 Wound Center Nurse 2 [Procedure/Treatment] #6 L Christensen -Time 15:32 -Correct Patient Yes -Correct Side, Site, Position Yes -Correct Procedure Yes -Procedure Performed Yes -Type of Procedure Debridement -Clinical Debridement Muscle -Post Debridement Size (cm) - Length 25.3 -Post Debridement Size (cm) - Width 11 -Post Debridement Size (cm) - Depth 0.7 -Total Square Cm 278.3 -Wound/Ulcer Outcome Not Healed -Ulcer Cleansing Rinsed/ Irrigated with Saline -Foul Odor after Cleansing No -Bioengineered Tissue No -Bleeding Controlled with Pressure -Offloading No -Treatment Response Procedure Tolerated Well #5 LLE Post -Time 15:32 -Correct Patient Yes -Correct Side, Site, Position Yes -Correct Procedure Yes -Procedure Performed Yes -Type of Procedure Debridement -Clinical Debridement Subcutaneous -Post Debridement Size (cm) - Length 9.3 -Post Debridement Size (cm) - Width 5.8 -Post Debridement Size (cm) - Depth 0.4 -Total Square Cm 53.94 -Wound/Ulcer Outcome Not Healed -Ulcer Cleansing Rinsed/ Irrigated with Saline -Foul Odor after Cleansing No -Bioengineered Tissue No -Bleeding Controlled with Pressure -Offloading No -Treatment Response Procedure Tolerated Well [See Physician Procedure note for Specifics] Pain Scale: 0-10 Numeric [Pain] -Is Patient Pain Free? Yes Musculoskeletal: No Tenderness to Palpation of Joints or Extremities, Muscle Wasting, Tenderness - Tenderness with ulcer manipulation Psych/Mental Status: Normal Affect, Appropriate, Anxious Debridement Note Post-Debridement Measurements/Treatment - Nurse 2 - General Ulcer CM Notes Start: 08/22/18 15:20 Freq: Status: Active Protocol: Activity Type Activity Date Activity User E-Sign Co-Sign Detail Recorded Client Recorded Date Recorded By Document 08/22/18 16:11 [id number] 08/22/18 16:13 Document 09/05/18 16:04 [id number] 09/05/18 16:08 Document 09/12/18 15:32 [id number] 09/12/18 15:37 08/22/18 09/05/18 09/12/18 16:11 16:04 15:32 Wound Center Nurse 2 #6 L Christensen -Time 16:12 16:04 15:32 -Correct Patient Yes Yes Yes -Correct Side, Site, Position Yes Yes Yes -Correct Procedure Yes Yes Yes -Procedure Performed Yes Yes Yes -Type of Procedure Debridement Debridement Debridement -Clinical Debridement Muscle Muscle Muscle Selective -Post Debridement Size (cm) - Length 23.2 24.5 25.3 -Post Debridement Size (cm) - Width 12.8 12.5 11 -Post Debridement Size (cm) - Depth 0.9 0.5 0.7 -Total Square Cm 296.96 306.25 278.3 -Wound/Ulcer Outcome Not Healed Not Healed Not Healed -Ulcer Cleansing Rinsed/ Rinsed/ Rinsed/ Irrigated with Irrigated with Irrigated with Saline Saline Saline -Foul Odor after Cleansing No No No -Bioengineered Tissue No No No -Bleeding Controlled with Pressure Pressure Pressure -Other <20 sq cm tendon debrided . -Offloading No No No -Treatment Response Procedure Procedure Procedure Tolerated Well Tolerated Well Tolerated Well #5 LLE Post -Time 16:12 16:04 15:32 -Correct Patient Yes Yes Yes -Correct Side, Site, Position Yes Yes Yes -Correct Procedure Yes Yes Yes -Procedure Performed Yes Yes Yes -Type of Procedure Debridement Debridement Debridement -Clinical Debridement Selective Selective Subcutaneous -Post Debridement Size (cm) - Length 7 8 9.3 -Post Debridement Size (cm) - Width 6 5.5 5.8 -Post Debridement Size (cm) - Depth 0.4 0.4 0.4 -Total Square Cm 42 44.0 53.94 -Wound/Ulcer Outcome Not Healed Not Healed Not Healed -Ulcer Cleansing Rinsed/ Rinsed/ Rinsed/ Irrigated with Irrigated with Irrigated with Saline Saline Saline -Foul Odor after Cleansing No No No -Bioengineered Tissue No No No -Bleeding Controlled with Pressure Pressure Pressure -Other 20 sq cm selectively debrided. -Offloading No No No -Treatment Response Procedure Procedure Procedure Tolerated Well Tolerated Well Tolerated Well Pain Scale: 0-10 Numeric Is Patient Pain Free? Yes Yes Yes Wound debrided: anterior leg Laterality: Left Type of Debridement: Excisional debridement Anesthesia Used: 5% Lidocaine Gel Depth: to muscle Percentage of wound debrided: 60 - devitalized subcutaneous, 30 - devitalized tendon Instrument Used: #15 blade, Forceps Tissue Removed: fibrous, devitalized subcutaneous and tendon, biofilm, slough Severity: Necrosis of Muscle Amount of bleeding with debridement: Mild Bleeding Controlled with: Pressure Patient tolerated procedure well - Additional Wound Wound debrided: posterior leg Laterality: Left Type of Debridement: Excisional debridement Anesthesia Used: 5% Lidocaine Gel Depth: in the subcutaneous layer Percentage of wound debrided: 100 Instrument Used: #15 blade Tissue Removed: fibrous, devitalized subcutaneous, biofilm, slough Severity: Fat Layer Exposed Amount of bleeding with debridement: Mild Bleeding Controlled with: Pressure Patient tolerated procedure: Patient tolerated procedure well Assessment/Plan Active Problems Osteomyelitis of left tibia (Chronic) Ulcer of left lower extremity with fat layer exposed (Chronic) 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 Osteomyelitis left tibia. Peripheral vascular disease. 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 Bilateral lower leg edema swelling increased in the left leg. Neuropathy lower extremities. Atrial fibrillation. Non compliance. Venous insufficiency. Left acute DVT has been ruled out Plan: I reviewed and discussed his care plan. excisional tendon debridement was performed as noted in the clinical panel and he tolerated this well. Progressive deterioration and black discoloration of tendinous structures are noted to the anterior ulcer site and therefore excisional tendon and muscle debridement was performed as noted in the clinical panel. The peripheral subcutaneous tissue was selectively debrided. To wash leg daily with gentle Dial soap and water. To change the dressing with Aquacel Ag to the posterior and anterior ulcer sites. To additionally apply Betadine gauze to the anterior leg site where the tendon is starting to liquefy. His leg x-rays demonstrated progressive osteolysis of his left tibia consistent with osteomyelitis. His recent lab work was also reviewed from the including white blood cell count 11.3, ESR 78, C-reactive protein 34.2. He was advised to elevate his limb at least 20 min/hour. To follow-up with vascular surgery as advised. He he did have a recent vascular surgery intervention on August 31, 2018. A left lower extremity angiogram to address his arterial disease there is suspected bilateral superficial femoral artery occlusion is noted which seemed to be his main issue at this time. He will return for a femoropopliteal bypass in September 2018; scheduling is pending. I have reviewed his vascular surgeons operation report and plan. It appears he will need to have additional cardiac clearance prior to proceeding with this next reconstructive surgery. Dr. Maloney is also concerned about his left greater saphenous vein reflux and recommend 24-hour compression and will consider a left EVLT procedure and bilateral ultrasound-guided sclero procedure. He had a previous updated noninvasive vascular studies performed at [facility] with bilateral dp and pt monophasic waveforms and right manpreet of 0.56 an left of 0.49. His previous venous Doppler results were reviewed and were negative for deep venous thrombosis. He was advised to monitor this and he demonstrates understanding. The patient has continued questions about his upcoming vascular surgery and I urged him to call and review this with the medical staff member over the phone or make another surgical consultation appointment. To continue nutritional supplementation optimize healing. To continue with Tubigrip compression to decrease leg edema. I recommend orthopedic surgical referral for bone debridement and biopsy versus amputation. His continued response and vascular status will help make this decision. This case was previously discussed with Dr. Grier who is also on consultation for this case. To return to clinic in 1 week or call sooner if he has any questions or concerns. The goal is to keep this leg free of active infection or worsening status until his definitive plan is completed. He understands his delay in completing treatment recommendations is compromising his care plan and his ability to salvage his limb. I answered all of his questions.
== END 2018-09-17 23:59 ==
LOC: WC 15:00
PROVIDERS: Family Provider Internal Medicine; PCP Internal Medicine; Referring Provider Podiatrist; Visit Provider Podiatrist
DX: I87.2 Venous insufficiency (chronic) (peripheral) (principal); I73.9 Peripheral vascular disease, unspecified; L97.822 Non-pressure chronic ulcer of other part of left lower leg with fat layer exposed; L97.824 Non-pressure chronic ulcer of other part of left lower leg with necrosis of bone; Z86.14 Personal history of Methicillin resistant Staphylococcus aureus infection; I50.22 Chronic systolic (congestive) heart failure; G62.9 Polyneuropathy, unspecified; Z91.19 Patient's noncompliance with other medical treatment and regimen; R60.0 Localized edema; M79.89 Other specified soft tissue disorders; L97.823 Non-pressure chronic ulcer of other part of left lower leg with necrosis of muscle
CPT/HCPCS: 11042; 11043; 11045; 97597; 97598

== ENCOUNTER 2018-09-26 15:15 | Outpatient (RCR) | payer MEDICARE, OTHER, SELFPAY ==
[2018-09-18 00:34] VITALS: BP 91/40; PULSE 117; RESP 18; TEMP 37.3
[2018-09-19 15:36] VITALS: BP 86/48; PULSE 113; RESP 16; TEMP 36.1; BMI 65.4
--- NOTE | 2018-09-19 16:52 | PN.PCM_ITS ---
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 Current Visit: Yes Code(s): L97.922 - Non-pressure chronic ulcer of unspecified part of left lower leg with fat layer exposed (3) Osteomyelitis of left tibia Status: Chronic Current Visit: Yes Qualifiers: Code(s): M86.9 - Osteomyelitis, unspecified (4) Venous insufficiency Status: Chronic Current Visit: Yes Code(s): I87.2 - Venous insufficiency (chronic) (peripheral) (5) Delayed wound healing Status: Chronic Current Visit: Yes Code(s): T14.8XXD - Other injury of unspecified body region, subsequent encounter (6) Peripheral vascular disease of extremity with claudication Status: Chronic Current Visit: Yes Code(s): I73.9 - Peripheral vascular disease, unspecified Type of Wound Date of Service: 09/19/18 Chief Complaint: Follow-up on left lower leg ulcers History of Wound: 78-year-old male who had surgery with Dr. Maloney in July for his small vessel occlusions in the left leg and venous insufficiency follows up today for two chronic non healing left left lower extremity wounds. He reports he is supposed to have reconstructive vascular artery surgery. He has a consultation appointment scheduled with Dr. Maloney this upcoming month. He denies fever, chill, nausea, vomiting, loss of appetite, odor, streaking to the leg. He continues to have dressing changes every other day with his home nurse. Progress of Wound: Continued deteriorating ulcer status - Physical Exam Vital Signs Temp Pulse Resp BP 96.9 F L 113 H 16 86/48 L 09/19/18 15:36 09/19/18 15:36 09/19/18 15:36 09/19/18 15:36 General: Alert, Oriented x3, Cooperative Extremities: Capillary Refill Less than 3 Seconds, No Calf Tenderness - Negative Travon and Araya sign left, Diminished Peripheral Pulses, Edema - Left lower extremity Skin: Ulcer/ Wound - There is continued deterioration of both anterior and posterior left leg ulcer sites with exposed devitalized tendon and necrotic appearing tibial crest bone. The tendon is continuing to liquefy. There is no nena purulence or streaking noted. The surrounding compartments remain soft to palpate. The adjacent peripheral skin is hairless and atrophic. Wound Measurements and Assessment WC - Nurse 1 - General Ulcer Measurement Start: 09/19/18 15:34 Freq: Status: Active Protocol: Activity Type Activity Date Activity User E-Sign Co-Sign Detail Recorded Client Recorded Date Recorded By Document 09/19/18 15:36 DL [id number] 09/19/18 15:50 DL 09/19/18 15:36 Wound Center Nurse 1 [Ulcer Assessment] #6 L Christensen -Current Size (cm) - Length 24 -Current Size (cm) - Width 11 -Current Size (cm) - Depth 0.6 -Total Square Cm 264 -Photo Taken No -Exudate Amt Large (67-100%) -Exudate Type Yellow/Green -Wound Margin Thickened & Rolled Under -Granulation Amt Small (1-33%) -Granulation Quality Marsing -Necrosis Amt Large (67-100%) -Necrotic Tissue Type Eschar -Structure Exposed Tendon Fascia -Texture (Cyndy-wound Skin Appearance) Localized Edema Scarring -Moisture (Cyndy-wound Skin Appearance Dry/Scaly ) -Color (Cyndy-wound Skin Appearance) Erythema -Temperature (Cyndy-wound Skin No Abnormality Appearance) (Pt Warm) -Tenderness on Palpation (Cyndy-wound No Skin Appearance) -Ulcer Cleansing Wound Cleanser -Foul Odor after Cleansing Yes -Anesthetic Used 4% Lidocaine Solution #5 LLE Post -Current Size (cm) - Length 9.2 -Current Size (cm) - Width 6 -Current Size (cm) - Depth 0.7 -Total Square Cm 55.2 -Photo Taken No -Exudate Amt Large (67-100%) -Exudate Type Yellow/Green -Wound Margin Thickened & Rolled Under -Granulation Amt Small (1-33%) -Granulation Quality Marsing -Necrosis Amt Large (67-100%) -Necrotic Tissue Type Adherent Slough -Structure Exposed N/A -Texture (Cyndy-wound Skin Appearance) Localized Edema Scarring -Moisture (Cyndy-wound Skin Appearance Dry/Scaly ) -Color (Cyndy-wound Skin Appearance) Hemosiderin Staining -Temperature (Cyndy-wound Skin No Abnormality Appearance) (Pt Warm) -Ulcer Cleansing Wound Cleanser -Foul Odor after Cleansing No -Anesthetic Used 4% Lidocaine Solution [Edema Assessment] -Left Calf (cm) 39 -Left Ankle (cm) 23.2 WC - Nurse 2 - General Ulcer CM Notes Start: 09/19/18 15:34 Freq: Status: Active Protocol: Activity Type Activity Date Activity User E-Sign Co-Sign Detail Recorded Client Recorded Date Recorded By Document 09/19/18 15:55 MAGALYS [id number] 09/19/18 16:00 09/19/18 15:55 Wound Center Nurse 2 [Procedure/Treatment] #6 L Christensen -Time 15:55 -Correct Patient Yes -Correct Side, Site, Position Yes -Correct Procedure Yes -Procedure Performed Yes -Type of Procedure Debridement -Clinical Debridement Subcutaneous Muscle -Post Debridement Size (cm) - Length 24 -Post Debridement Size (cm) - Width 11.1 -Post Debridement Size (cm) - Depth 0.6 -Total Square Cm 266.4 -Wound/Ulcer Outcome Not Healed -Ulcer Cleansing Rinsed/ Irrigated with Saline -Foul Odor after Cleansing No -Bioengineered Tissue No -Bleeding Controlled with Pressure -Offloading No -Treatment Response Procedure Tolerated Well #5 LLE Post -Time 15:56 -Correct Patient Yes -Correct Side, Site, Position Yes -Correct Procedure Yes -Procedure Performed Yes -Type of Procedure Debridement -Clinical Debridement Subcutaneous -Post Debridement Size (cm) - Length 9.2 -Post Debridement Size (cm) - Width 6.1 -Post Debridement Size (cm) - Depth 0.7 -Total Square Cm 56.12 -Wound/Ulcer Outcome Not Healed -Ulcer Cleansing Rinsed/ Irrigated with Saline -Foul Odor after Cleansing No -Bioengineered Tissue No -Bleeding Controlled with Pressure -Offloading No -Treatment Response Procedure Tolerated Well [See Physician Procedure note for Specifics] Pain Scale: 0-10 Numeric [Pain] -Is Patient Pain Free? Yes Musculoskeletal: No Tenderness to Palpation of Joints or Extremities, Muscle Wasting Neurological: - - Lack of epicritic sensation normal light touch is noted left cyndy-ulcer site Psych/Mental Status: Normal Affect, Appropriate Debridement Note Post-Debridement Measurements/Treatment WC - Nurse 2 - General Ulcer CM Notes Start: 09/19/18 15:34 Freq: Status: Active Protocol: Activity Type Activity Date Activity User E-Sign Co-Sign Detail Recorded Client Recorded Date Recorded By Document 09/19/18 15:55 MAGALYS [id number] 09/19/18 16:00 JF 09/19/18 15:55 Wound Center Nurse 2 #6 L Christensen -Time 15:55 -Correct Patient Yes -Correct Side, Site, Position Yes -Correct Procedure Yes -Procedure Performed Yes -Type of Procedure Debridement -Clinical Debridement Subcutaneous Muscle -Post Debridement Size (cm) - Length 24 -Post Debridement Size (cm) - Width 11.1 -Post Debridement Size (cm) - Depth 0.6 -Total Square Cm 266.4 -Wound/Ulcer Outcome Not Healed -Ulcer Cleansing Rinsed/ Irrigated with Saline -Foul Odor after Cleansing No -Bioengineered Tissue No -Bleeding Controlled with Pressure -Offloading No -Treatment Response Procedure Tolerated Well #5 LLE Post -Time 15:56 -Correct Patient Yes -Correct Side, Site, Position Yes -Correct Procedure Yes -Procedure Performed Yes -Type of Procedure Debridement -Clinical Debridement Subcutaneous -Post Debridement Size (cm) - Length 9.2 -Post Debridement Size (cm) - Width 6.1 -Post Debridement Size (cm) - Depth 0.7 -Total Square Cm 56.12 -Wound/Ulcer Outcome Not Healed -Ulcer Cleansing Rinsed/ Irrigated with Saline -Foul Odor after Cleansing No -Bioengineered Tissue No -Bleeding Controlled with Pressure -Offloading No -Treatment Response Procedure Tolerated Well Pain Scale: 0-10 Numeric Is Patient Pain Free? Yes Wound debrided: posterior leg Laterality: Left Type of Debridement: Excisional debridement Anesthesia Used: 5% Lidocaine Gel Depth: in the subcutaneous layer Percentage of wound debrided: 100 Instrument Used: #15 blade Tissue Removed: fibrous, devitalized subcutaneous, biofilm, slough Severity: Fat Layer Exposed Amount of bleeding with debridement: Mild Bleeding Controlled with: Pressure Patient tolerated procedure well - Additional Wound Wound debrided: anterior leg Laterality: Left Type of Debridement: Excisional debridement Anesthesia Used: 5% Lidocaine Gel Depth: in the subcutaneous layer Percentage of wound debrided: 10 Instrument Used: #15 blade, Forceps Tissue Removed: fibrous, devitalized subcutaneous and tendon, biofilm, slough Severity: Necrosis of Muscle Amount of bleeding with debridement: Mild Bleeding Controlled with: Pressure Patient tolerated procedure: Patient tolerated procedure well Assessment/Plan Active Problems Osteomyelitis of left tibia (Chronic) Ulcer of left lower extremity with fat layer exposed (Chronic) 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 Osteomyelitis left tibia. Peripheral vascular disease. 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 Bilateral lower leg edema swelling increased in the left leg. Neuropathy lower extremities. Atrial fibrillation. Non compliance. Venous insufficiency. Left acute DVT has been ruled out Plan: I reviewed and discussed his care plan. excisional tendon debridement was performed as noted in the clinical panel to the anterior ulcer site, and he tolerated this well. Subcutaneous excision to the posterior left leg ulcer site. Progressive deterioration and black discoloration of tendinous structures are noted to the anterior ulcer site and therefore excisional tendon and muscle debridement was performed as noted in the clinical panel. To wash leg daily with gentle Dial soap and water. To change the dressing with Betadine gauze to the posterior and anterior ulcer sites to dry this out and prevent further tendon deterioration and liquefication. His leg x-rays demonstrated progressive osteolysis of his left tibia consistent with osteomyelitis. His recent lab work was also reviewed from the including white blood cell count 11.3, ESR 78, C-reactive protein 34.2. He was advised to elevate his limb at least 20 min/hour. To follow-up with vascular surgery as advised. He he did have a recent vascular surgery intervention on August 31, 2018. A left lower extremity angiogram to address his arterial disease there is suspected bilateral superficial femoral artery occlusion is noted which seemed to be his main issue at this time. He will return for a femoropopliteal bypass in September 2018; scheduling is pending. I have reviewed his vascular surgeons operation report and plan. It appears he will need to have additional cardiac clearance prior to proceeding with this next reconstructive surgery. Dr. Maloney is also concerned about his left greater saphenous vein reflux and recommend 24-hour compression and will consider a left EVLT procedure and bilateral ultrasound-guided sclero procedure. He had a previous updated noninvasive vascular studies performed at [facility] with bilateral dp and pt monophasic waveforms and right manpreet of 0.56 an left of 0.49. His previous venous Doppler results were reviewed and were negative for deep venous thrombosis. He was advised to monitor this and he demonstrates understanding. To proceed with vascular procedure and consultations as scheduled. The patient understands by delaying his appointments this is significantly affecting his care plan and his limb may not be salvageable even after vascular reconstruction due to the loss of healthy tissue. To continue nutritional supplementation optimize healing. To continue with Tubigrip compression to decrease leg edema. I recommended orthopedic surgical referral for bone debridement and biopsy versus amputation. His continued response and vascular status will help make this decision. This case was previously discussed with Dr. Grier who is also on consultation for this case. To return to clinic in 1 week or call sooner if he has any questions or concerns. The goal is to keep this leg free of active infection or worsening status until his definitive plan is completed. I answered all of his questions.
[2018-09-26 15:46] VITALS: BP 124/92; PULSE 95; RESP 18; TEMP 35.7; BMI 65.4
--- NOTE | 2018-09-26 16:59 | PCM.WC.PN ---
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 Current Visit: Yes Code(s): L97.922 - Non-pressure chronic ulcer of unspecified part of left lower leg with fat layer exposed (3) Osteomyelitis of left tibia Status: Chronic Current Visit: Yes Qualifiers: Code(s): M86.9 - Osteomyelitis, unspecified (4) Venous insufficiency Status: Chronic Current Visit: Yes Code(s): I87.2 - Venous insufficiency (chronic) (peripheral) (5) Delayed wound healing Status: Chronic Current Visit: Yes Code(s): T14.8XXD - Other injury of unspecified body region, subsequent encounter (6) Peripheral vascular disease of extremity with claudication Status: Chronic Current Visit: Yes Code(s): I73.9 - Peripheral vascular disease, unspecified Type of Wound Date of Service: 09/26/18 Chief Complaint: Follow-up on left lower leg ulcers History of Wound: 78-year-old male who had surgery with Dr. Maloney in July for his small vessel occlusions in the left leg and venous insufficiency follows up today for two chronic non healing left left lower extremity wounds. He reports he is supposed to have reconstructive vascular artery surgery. He has a consultation appointment scheduled with Dr. Maloney this upcoming month. He denies fever, chill, nausea, vomiting, loss of appetite, odor, streaking to the leg. He continues to have dressing changes every other day with his home nurse. He denies calf pain, chest pain, shortness of breath. He relates overall fatigue. He is scheduled with his primary care physician Dr. Daniels tomorrow late morning. The appointment is for follow-up for his fatigue as well as for a preoperative history and physical and clearance for his vascular surgery. Progress of Wound: Continued deteriorating ulcer status - Physical Exam Vital Signs Temp Pulse Resp BP 96.2 F L 95 18 124/92 H 09/26/18 15:46 09/26/18 15:46 09/26/18 15:46 09/26/18 15:46 General: Alert, Oriented x3, Cooperative, - - Transports from the clinic in a wheelchair Extremities: Capillary Refill Less than 3 Seconds, Diminished Peripheral Pulses - Nonpalpable pulses left, Edema, Tenderness - Wound manipulation pain Skin: Ulcer/ Wound - The anterior and posterior left leg ulcer site continued to deteriorate and enlarged in size. The posterior ulcer has granular fibrous tissue. The anterior leg ulcer has exposed necrotic tibial crest bone and also dorsal medial midfoot bone that is newer that is also discolored. There is also exposed devitalized liquefied tendon with eschar. There is an odor. There is no purulence on expression erythema or streaking. The salvageability of this limb is not likely given this recent and progressive deterioration. The peripheral skin has no hair and is very atrophic Wound Measurements and Assessment WC - Nurse 1 - General Ulcer Measurement Start: 09/19/18 15:34 Freq: Status: Active Protocol: Activity Type Activity Date Activity User E-Sign Co-Sign Detail Recorded Client Recorded Date Recorded By Document 09/26/18 15:46 [facility] [id number] 09/26/18 15:54 [facility] 09/26/18 15:46 Wound Center Nurse 1 [Ulcer Assessment] #6 L Christensen -Combined with other wound No -Current Size (cm) - Length 26.0 -Current Size (cm) - Width 13 -Current Size (cm) - Depth 0.6 -Total Square Cm 338.0 -Photo Taken No -Epithelialization None Present -Tunneling No -Undermining/Tunneling No -Circular Undermining No -Exudate Amt Large -Exudate Type Serosanguineous -Wound Margin Thickened -Granulation Amt Small (1-33%) -Granulation Quality Shandon -Slough/Fibrin Yes -Necrosis Amt Large (67-100%) -Necrotic Tissue Type Adherent Slough -Structure Exposed Tendon -Texture (Cyndy-wound Skin Appearance) Scarring -Moisture (Cyndy-wound Skin Appearance Dry/Scaly ) -Color (Cyndy-wound Skin Appearance) Erythema -Temperature (Cyndy-wound Skin No Abnormality Appearance) (Pt Warm) -Tenderness on Palpation (Cyndy-wound Yes Skin Appearance) -Ulcer Cleansing Wound Cleanser -Foul Odor after Cleansing No -Anesthetic Used 4% Lidocaine Solution #5 LLE Post -Combined with other wound No -Current Size (cm) - Length 9.2 -Current Size (cm) - Width 6.2 -Current Size (cm) - Depth 0.3 -Total Square Cm 57.04 -Photo Taken No -Epithelialization None Present -Tunneling No -Undermining/Tunneling No -Circular Undermining No -Exudate Amt Medium -Exudate Type Serosanguineous -Wound Margin Thickened -Granulation Amt Small (1-33%) -Granulation Quality Shandon -Slough/Fibrin Yes -Necrosis Amt Large (67-100%) -Necrotic Tissue Type Adherent Slough -Texture (Cyndy-wound Skin Appearance) Scarring -Moisture (Cyndy-wound Skin Appearance Assessed ) -Color (Cyndy-wound Skin Appearance) Erythema -Temperature (Cyndy-wound Skin No Abnormality Appearance) (Pt Warm) -Tenderness on Palpation (Cyndy-wound Yes Skin Appearance) -Ulcer Cleansing Wound Cleanser -Foul Odor after Cleansing No -Anesthetic Used 4% Lidocaine Solution [Edema Assessment] -Lower Limb Edema Present Yes -Left Calf (cm) 38.4 -Left Ankle (cm) 24 WC - Nurse 2 - General Ulcer CM Notes Start: 09/19/18 15:34 Freq: Status: Active Protocol: Activity Type Activity Date Activity User E-Sign Co-Sign Detail Recorded Client Recorded Date Recorded By Document 09/26/18 16:15 [id number] 09/26/18 16:23 MAGALYS 09/26/18 16:15 Wound Center Nurse 2 [Procedure/Treatment] #6 L Christensen -Time 16:16 -Correct Patient Yes -Correct Side, Site, Position Yes -Correct Procedure Yes -Procedure Performed Yes -Type of Procedure Debridement -Clinical Debridement Muscle -Post Debridement Size (cm) - Length 26 -Post Debridement Size (cm) - Width 13.1 -Post Debridement Size (cm) - Depth 0.6 -Total Square Cm 340.6 -Wound/Ulcer Outcome Not Healed -Ulcer Cleansing Rinsed/ Irrigated with Saline -Foul Odor after Cleansing No -Bioengineered Tissue No -Bleeding Controlled with Pressure -Other 40cm2 debrided of tendon -Offloading No -Treatment Response Procedure Tolerated Well #5 LLE Post -Time 16:17 -Correct Patient Yes -Correct Side, Site, Position Yes -Correct Procedure Yes -Procedure Performed Yes -Type of Procedure Debridement -Clinical Debridement Selective -Post Debridement Size (cm) - Length 9.2 -Post Debridement Size (cm) - Width 6.3 -Post Debridement Size (cm) - Depth 0.3 -Total Square Cm 57.96 -Wound/Ulcer Outcome Not Healed -Ulcer Cleansing Rinsed/ Irrigated with Saline -Foul Odor after Cleansing No -Bioengineered Tissue No -Bleeding Controlled with Pressure -Offloading No -Treatment Response Procedure Tolerated Well [See Physician Procedure note for Specifics] Pain Scale: 0-10 Numeric [Pain] -Is Patient Pain Free? Yes Musculoskeletal: No Tenderness to Palpation of Joints or Extremities, Muscle Wasting Neurological: - - Lack of normal epicritic sensation light touch left lower extremity. Wound. It is no he does have pain discomfort with ulcer manipulation and debridement left Psych/Mental Status: Normal Affect, Appropriate Debridement Note Post-Debridement Measurements/Treatment WC - Nurse 2 - General Ulcer CM Notes Start: 09/19/18 15:34 Freq: Status: Active Protocol: Activity Type Activity Date Activity User E-Sign Co-Sign Detail Recorded Client Recorded Date Recorded By Document 09/19/18 15:55 [id number] 09/19/18 16:00 Document 09/26/18 16:15 [id number] 09/26/18 16:23 09/19/18 09/26/18 15:55 16:15 Wound Center Nurse 2 #6 L Christensen -Time 15:55 16:16 -Correct Patient Yes Yes -Correct Side, Site, Position Yes Yes -Correct Procedure Yes Yes -Procedure Performed Yes Yes -Type of Procedure Debridement Debridement -Clinical Debridement Subcutaneous Muscle Muscle -Post Debridement Size (cm) - Length 24 26 -Post Debridement Size (cm) - Width 11.1 13.1 -Post Debridement Size (cm) - Depth 0.6 0.6 -Total Square Cm 266.4 340.6 -Wound/Ulcer Outcome Not Healed Not Healed -Ulcer Cleansing Rinsed/ Rinsed/ Irrigated with Irrigated with Saline Saline -Foul Odor after Cleansing No No -Bioengineered Tissue No No -Bleeding Controlled with Pressure Pressure -Other 40cm2 debrided of tendon -Offloading No No -Treatment Response Procedure Procedure Tolerated Well Tolerated Well #5 LLE Post -Time 15:56 16:17 -Correct Patient Yes Yes -Correct Side, Site, Position Yes Yes -Correct Procedure Yes Yes -Procedure Performed Yes Yes -Type of Procedure Debridement Debridement -Clinical Debridement Subcutaneous Selective -Post Debridement Size (cm) - Length 9.2 9.2 -Post Debridement Size (cm) - Width 6.1 6.3 -Post Debridement Size (cm) - Depth 0.7 0.3 -Total Square Cm 56.12 57.96 -Wound/Ulcer Outcome Not Healed Not Healed -Ulcer Cleansing Rinsed/ Rinsed/ Irrigated with Irrigated with Saline Saline -Foul Odor after Cleansing No No -Bioengineered Tissue No No -Bleeding Controlled with Pressure Pressure -Offloading No No -Treatment Response Procedure Procedure Tolerated Well Tolerated Well Pain Scale: 0-10 Numeric Is Patient Pain Free? Yes Yes Wound debrided: posterior leg Laterality: Left Type of Debridement: Selective debridement Anesthesia Used: 5% Lidocaine Gel Depth: in the subcutaneous layer Percentage of wound debrided: 100 Instrument Used: #15 blade Tissue Removed: fibrous, devitalized tissue, biofilm, slough Severity: Fat Layer Exposed Amount of bleeding with debridement: Mild Bleeding Controlled with: Pressure Patient tolerated procedure well - Additional Wound Wound debrided: anterior christensen Laterality: Left Type of Debridement: Excisional debridement Anesthesia Used: 4% Lidocaine Solution Depth: in the subcutaneous layer, to muscle Percentage of wound debrided: - - 12% tendon excision debridement, 88 % selective debridement of devitalized subcutaneous. 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 Osteomyelitis left tibia. Peripheral vascular disease. 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 Bilateral lower leg edema swelling increased in the left leg. Neuropathy lower extremities. Atrial fibrillation. Non compliance. Venous insufficiency. Left acute DVT has been ruled out Plan: I reviewed and discussed his care plan. excisional tendon debridement was performed as noted in the clinical panel to the anterior ulcer site, and he tolerated this well. Selective debridement to the posterior left leg ulcer site was performed as noted in the clinical panel. Progressive deterioration and black discoloration of tendinous structures are noted to the anterior ulcer site and therefore excisional tendon and muscle debridement was performed as noted in the clinical panel. To wash leg daily with gentle Dial soap and water. To change the dressing with Betadine gauze to the posterior and anterior ulcer sites to dry this out and prevent further tendon deterioration and liquefication. His leg x-rays demonstrated progressive osteolysis of his left tibia consistent with osteomyelitis. His recent lab work was also reviewed from the including white blood cell count 11.3, ESR 78, C-reactive protein 34.2. He was advised to elevate his limb at least 20 min/hour. To follow-up with vascular surgery as advised. He he did have a recent vascular surgery intervention on August 31, 2018. A left lower extremity angiogram to address his arterial disease there is suspected bilateral superficial femoral artery occlusion is noted which seemed to be his main issue at this time. He will return for a femoropopliteal bypass in September 2018; scheduling is pending. I have reviewed his vascular surgeons operation report and plan. It appears he will need to have additional cardiac clearance prior to proceeding with this next reconstructive surgery. Dr. Maloney is also concerned about his left greater saphenous vein reflux and recommend 24-hour compression and will consider a left EVLT procedure and bilateral ultrasound-guided sclero procedure. He had a previous updated noninvasive vascular studies performed at [facility] with bilateral dp and pt monophasic waveforms and right manpreet of 0.56 an left of 0.49. His previous venous Doppler results were reviewed and were negative for deep venous thrombosis. He was advised to monitor this and he demonstrates understanding. To proceed with vascular procedure and consultations as scheduled. The patient understands by delaying his appointments this is significantly affecting his care plan and his limb may not be salvageable even after vascular reconstruction due to the loss of healthy tissue. He has a follow-up vascular appointment in 2 weeks and is not sure if his surgery is at that time or mid to late October. To continue nutritional supplementation optimize healing. To continue with Tubigrip compression to decrease leg edema. I recommended orthopedic surgical referral for bone debridement and biopsy versus amputation. His continued response and vascular status will help make this decision. This case was previously discussed with Dr. Grier who is also on consultation for this case. To return to clinic in 1 week or call sooner if he has any questions or concerns. The goal is to keep this leg free of active infection or worsening status until his definitive plan is completed. I answered all of his questions. Given his fatigue I recommend he go for evaluation in the emergency room or his primary care physician within the next day. He already has a scheduled appointment Dr. Daniels tomorrow and he was advised to attend as scheduled.
== END 2018-10-18 23:59 ==
LOC: WC 15:15
PROVIDERS: Family Provider Internal Medicine; PCP Internal Medicine; Referring Provider Podiatrist; Visit Provider Podiatrist
DX: I73.9 Peripheral vascular disease, unspecified (principal); I87.2 Venous insufficiency (chronic) (peripheral); L97.823 Non-pressure chronic ulcer of other part of left lower leg with necrosis of muscle; L97.822 Non-pressure chronic ulcer of other part of left lower leg with fat layer exposed; Z86.14 Personal history of Methicillin resistant Staphylococcus aureus infection; I48.91 Unspecified atrial fibrillation; Z91.19 Patient's noncompliance with other medical treatment and regimen; M86.662 Other chronic osteomyelitis, left tibia and fibula
CPT/HCPCS: 11042; 11043; 11045; 11046; 97597; 97598

== ENCOUNTER 2018-09-28 18:45 | Inpatient (IN) | payer MEDICARE, OTHER, SELFPAY ==
[2018-09-28] VITALS (11 sets, daily range): BP systolic 76–127; BP diastolic 40–112; PULSE 102–119; RESP 14–18; TEMP 36.2–36.6; O2SAT 91–100; BMI 22.2; BMI 21.5
--- NOTE | 2018-09-28 19:08 | EKG12_ITS ---
Test Reason : SYNCOPE/ R/O SEPSIS Blood Pressure : / mmHG Vent. Rate : 091 BPM Atrial Rate : 117 BPM P-R Int : 000 ms QRS Dur : 084 ms QT Int : 380 ms P-R-T Axes : 000 061 050 degrees QTc Int : 467 ms Atrial fibrillation Minimal voltage criteria for LVH, may be normal variant Abnormal ECG Confirmed by DEVYN OROURKE, MANNY ([id number]), news copy editor CODY HOFF ([id number]) on 10/02/2018 5:06:22 PM Referred By: Herberth Adams Confirmed By:MANNY SHEPARD MD
--- NOTE | 2018-09-28 19:11 | RAD_ITS ---
STUDY: X-RAY CHEST REASON FOR EXAM: Male, 78 years old. Dyspnea. TECHNIQUE: Single AP portable view of the chest. COMPARISON: None. FINDINGS: The lungs are clear and expanded. There is no demonstrated pleural abnormality. Normal size heart. Normal mediastinum and philip. Normal visualized pulmonary arteries. Normal visualized aortic arch and descending thoracic aorta. There is a dextroscoliosis of the thoracic spine. There is degenerative osteoarthritis of the bilateral shoulders. There is no demonstrated abnormality of the visualized soft tissue structures of the upper abdomen. RAD/Chest 1 View (Portable) IMPRESSION: Degenerative changes, as described above. No demonstrated acute cardiopulmonary process. Electronically Signed: Ronaldo Romo MD at 20:13 EST Tel , Service support ,
[2018-09-28] MEDS: 0.9% Normal Saline 1,000 ML 1000 ML IV (19:35)
[2018-09-28 19:44] LABS: Absolute Lymphocyte Count 1.15 X10^3/ul (0.83-4.51); Absolute Neutrophil Count 12.5 X10^3/uL (2.0-7.7); Basophil# 0.01 X10^3/uL; Basophil% 0.1 % (0-1); Eosinophil# 0.06 X10^3/uL; Eosinophils% 0.4 % (0-5); Hematocrit 26.3 % (40-54); Lymphocyte # 1.15 X10^3/ul (4.0); Mean Corp Hgb Conc 30.4 g/gl (32-36); Mean Corpuscular Hgb 25.6 pg (27.0-32.0); Mean Platelet Vol. 9.9 fl (6.2-12.0); Monocyte# 0.65 X10^3/uL; Monocyte% 4.5 % (0-10); Neutrophil # 12.53 X10^3/uL (2.7-7.7); Neutrophil % 86.8 % (47-70); Platelet Count 567 K/mm3 (150-450); RBC Distribution Width CV 17.4 % (11.6-14.6); RBC Distribution Width SD 52.9 fl (35.1-43.9); Red Blood Count 3.13 M/mm3 (4.6-6.2); White Blood Count 14.4 K/mm3 (4.4-11.0)
[2018-09-28 19:45] LABS: POSITIVE COUNT NO; POSITIVE DIFFERENTIAL NO; POSITIVE MORPHOLOGY NO
[2018-09-28 20:01] LABS: Anion Gap 9 (5-15); BUN 87 mg/dL (7-18); BUN/Creat Ratio 39.9 RATIO (10-20); Calcium,Total 9.6 mg/dL (8.5-10.1); Chloride 104 mmol/L (98-107); Creatinine, Serum 2.18 mg/dL (0.70-1.30); EST Glomerular Filtration Rate 31 mL/min (>60); Est Glom Filt Rate - Afr Amer 38 mL/min (>60); Estimated Creatinine Clearance 29.86 ml/min; Glucose 125 mg/dL (74-106); Potassium 5.3 mmol/L (3.5-5.1); Sodium Level 139 mmol/L (136-145)
--- NOTE | 2018-09-28 20:18 | ED.VISSUMM ---
- ER Visit Summary Date of Service: 09/28/18 Chief Complaint: [Syncope] History of Present Illness: The patient is a 78 M [presents the emergency department complaint of a syncopal episode that occurred this afternoon. Patient was at a restaurant with a friend and while sitting down the friend states that low back patient is kind of went to sleep and he hit his head gently on a bar. Patient then had some twitches that were noted and EMS was called. Patient denies any chest pain. Patient denies any shortness of breath. Patient apparently falls asleep easily. Patient tells me normally his blood pressure is in the 90s over 40s. Patient states he is not been eating or drinking well lately. Patient being treated for chronic left lower extremity wound. Patient also with history of A. fib and is on Eliquis. He denies any headache.] Physical Examination: [HEENT-PERRLA, EOMI. Cranial nerves II through XII grossly intact. TMs clear. Mucous membranes moist. No adenopathy. Cardiovascular-irregularly irregular with 2 of 6.ejection murmur. Lungs-clear to auscultation, chest wall stable without crepitus or subcu emphysema Abdomen-normoactive bowel sounds, soft, nontender, no rebound or rigidity, no peritoneal signs. Extremities-intact ?4, normal range of motion, normal pulses, atraumatic] Test Results: [EKG obtained arrival showed atrial fibrillation with a ventricular rate of 91 bpm with no acute ST segment changes. CBC with differential showed a white count of 14.4, hemoglobin 8.0, hematocrit 26, platelets 567. Chemistries unremarkable other than a potassium of 5.3. BUN was 87 and creatinine 2.18. Troponin was less than 0.015. I ordered a CT scan of the brain without contrast given the patient being on Coumadin and bumping his head however he is refusing to have the scan. Patient states he has no headache and does not have any concerns about his head and is adamant that he will not agree to a CAT scan. Patient understands cannot rule out intracranial hemorrhage.] Emergency Department Course and Treatment: [Patient was given a liter normal same fluid bolus. Patient blood pressure in the 90 systolic.] Treatment Plan: [Case will be discussed with hospitalist to admit patient] Disposition: [Admit] Impression: [Syncope Hypotension Acute kidney injury Anemia] This note was generated with Dragon dictation software. It may contain incorrect words, spelling, and punctuation that were not noted in review of the chart prior to signing ED Disposition - Plan for ED Patient: Chief Complaint: Syncope Referrals: Phoebe Daniels MD [Primary Care Provider] -
--- NOTE | 2018-09-28 20:18 | ED.RN ---
HOSPITALIST PAGED FOR DR TURPIN
--- NOTE | 2018-09-28 20:24 | HP.PCM_ITS ---
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 Patient reported that all day he did not eat so he went out to eat with friend at a restaurant. While at a restaurant he reported feeling light headed and hitting his head on the restaurant table. He thinks he did not pass out although people around think he passed out. Reportedly he has some twitching after passing out. The squad was called and patient was brought to the emergency department. Patient reported that because his has dementia; so he (patient) does not get good food food to eat at home. He reports drinking adequate amount of fluids. Patient reports chronic chills. Previously he was antibiotic therapy for his leg wound but at the time of presentation he was no longer on antibiotics. He reported that he follows up with wound care every week for his left lower extremity wound. He reported that his left lower extremity wound is not healing because he has poor blood supply in his leg. At the emergency department patient was found to have a white count of 14.4; potassium level of 5.3; severely elevated creatinine of 2.18 His initial systolic blood pressure at emergency department was in the 70s. Patient reports that typically his systolic blood pressure is in the 90s. With IV boluses patient's blood systolic pressure went into the middle 90s. 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) 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 (Chronic) Venous insufficiency (Chronic) CKD (chronic kidney disease) stage 3, GFR 30-59 ml/min (Chronic) Anemia (Chronic) 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) Delayed wound healing (Chronic) Nonischemic cardiomyopathy (Chronic) Chronic systolic CHF (congestive heart failure) (Chronic) Chronic atrial fibrillation (Chronic) Bilateral edema of lower extremity (Chronic) Open wounds involving multiple regions of lower extremity (Chronic) Neuropathic pain, leg, bilateral (Chronic) Pain, lower extremity (Chronic) PAOD (peripheral arterial occlusive disease) (Chronic) Peripheral vascular disease of extremity with claudication (Chronic) Allergies codeine Adverse Reaction (Verified 09/28/18 18:53) Nausea Home Medications: Ambulatory Orders Medication Instructions Recorded Aspirin E.C. [Ecotrin] 81 mg PO DAILY@0800 11/06/15 Apixaban [Eliquis] 5 mg PO BID 05/24/17 Carvedilol [Coreg (Beta Min)] 12.5 mg PO BID 05/24/17 Lisinopril [Zestril] 10 mg PO DAILY tablet 03/07/18 Nutritional Supplement [Napoleon - 1 packet PO BID #60 packet 03/07/18 [place] FLAVOR] traMADol [Ultram (G)] 50 mg PO Q6H PRN PRN 09/28/18 Surgical History: appendectomy, herniorrhaphy, - - Hand surgery Psychiatric History: No pertinent psych hx Smoking Status: Former smoker Tobacco Use: Cigarettes - *Family History Maternal History Items: Dementia Paternal History Items: - - venous ulcers Review of Systems Constitutional: Reports: Chills - Chronic HEENT: Denies: Head Aches, Sinus Congestion, Sinus Drainage Cardiovascular: Denies: Chest Pain, Palpitations Respiratory: Denies: Cough, Shortness of breath at rest, Sputum production Gastrointestinal: Denies: Abdominal Pain, Nausea, Vomiting Genitourinary: Denies: Dysuria Musculoskeletal: Denies: Joint Pain, Joint Tenderness Skin: Reports: Wounds - Left leg. Denies: Rash Neurological: Denies: Numbness, Tingling, Focal weakness Psychiatric: Denies: Anxiety, Depression, Homicidal Ideations, Suicidal Ideations Hematologic/ Lymphatic: Denies: Easy Bruising, Easy Bleeding VTE Information - Inpt Only VTE Present on Admission: No VTE Mechan Device Prophylaxis: None VTE Pharm Prophylaxis ordered?: No Reason prophylaxis not ordered:: Treatment Not Indicated - On Eliquis for A. fib; continued. Patient Problems: Active and Suspected Problems Severe sepsis (Acute) Osteomyelitis (Suspected) Syncope (Acute) - Physical Exam General: Alert, Oriented x3, Cooperative HEENT: Atraumatic, PERRLA, EOMI, Normocephalic Oral: Dry Mucosa Neck: Supple, No JVD, Negative Carotid Bruits Lungs: Clear to auscultation, Normal air movement Cardiovascular: No murmurs, Irregular Rate, Tachycardic Abdomen: Bowel Sounds Present, Soft, Non Tender Extremities: Tenderness - Left flank Skin: No rashes, - - Left leg with a necrotic wound with erythema around wound and with severe tenderness around wound. Musculoskeletal: Tenderness Neurological: Neuro grossly intact Psych/Mental Status: Normal Affect, Appropriate Vital Signs Temp Pulse Resp BP Pulse Ox 97.2 F L 102 H 17 96/41 L 98 09/28/18 19:40 09/28/18 19:40 09/28/18 19:40 09/28/18 19:40 09/28/18 19:40 Oxygen Flow Rate (L/min) 2 Oxygen Delivery Method Nasal Cannula Weight: 74.389 kg Body Mass Index (BMI) 22.2 Laboratory Tests Past 24 Hrs 09/28/18 09/28/18 19:35 19:35 WBC 14.4 H RBC 3.13 L Hgb 8.0 L Hct 26.3 L MCV 84.0 MCH 25.6 L MCHC 30.4 L RDW 17.4 H RDW Differential 52.9 H Plt Count 567 H MPV 9.9 Immature Gran % (Auto) 0.200 Neut % (Auto) 86.8 H Lymph % (Auto) 8.0 L [place] % (Auto) 4.5 Eos % (Auto) 0.4 Baso % (Auto) 0.1 Absolute Neuts (auto) 12.5 H Absolute Lymphs (auto) 1.15 Total Counted Not Reportable Sodium 139 Potassium 5.3 H Chloride 104 Carbon Dioxide 26.0 Anion Gap 9 BUN 87 H Creatinine 2.18 H Estim Creat Clear Calc 29.86 Est GFR (MDRD) Af Amer 38 L Est GFR (MDRD) Non-Af 31 L BUN/Creatinine Ratio 39.9 H Glucose 125 H Calcium 9.6 Troponin I < 0.015 Assessment/Plan All Active Problems Severe sepsis (Acute) Syncope (Acute) Deep venous thrombosis of distal end of left lower extremity (Ruled-out) Cellulitis of leg without foot, left (Acute) MRSA (methicillin resistant Staphylococcus aureus) infection (Resolved) Cellulitis of left leg (Resolved) MRSA (methicillin resistant staph aureus) culture positive (Resolved) Infected open wound (Acute) Nonhealing ulcer of left lower leg (Acute) The patient is a 78 year old M with a significant history of atrial fibrillation; coxsackie virus myocarditis/endocarditis; 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 Probable Severe sepsis secondary to osteomyelitis of left leg Because of leukocytosis and systolic blood pressure in the 70s with probable acute on chronic infection of his left leg patient was diagnosed with severe sepsis. Notably patient has AK I Discussed with emergency room doctor to get blood cultures and start patient on broad-spectrum antibiotics of vancomycin and Zosyn. We will continue vancomycin and Zosyn. Blood cultures are pending Urinalysis was unremarkable Lactic was unremarkable Patient sees podiatry. Will consult podiatry. We will consult infectious disease to optimize management. Nurse reported pus from wound. Order to get wound culture from pus. Wet to dry dressing ordered. Wound care consult. CRP ordered. Follow CBC and BMP. Severe dehydration It is likely that his syncopal episodes is from dehydration. As patient has dry mucous membrane and skin tenting. Patient received normal saline IV bolus at emergency department. We will continue patient on maintenance IV infusion at 150ml/hr for 3000 mL's. SHANA On admission his creatinine was 2.18 Review of old records shows baseline creatinine around 1.16 His BUN on admission was 87. BUN over creatinine is more than 20 Likely prerenal from severe dehydration and components of intrarenal from sepsis IV hydration as above Hold lisinopril. Avoid other nephrotoxic's A. fib with RVR Presentations patient's highest heart rate was 119. And he was in A. fib. He has chronic A. fib. His rapid ventricular rate is likely due to dehydration. Hydration as above Eliquis continued Carvedilol on hold secondary to hypotension Syncope Likely from a severe dehydration and probably severe sepsis IV hydration as above. Orthostatic blood pressure not ordered since patient was already hypotensive Echocardiogram ordered. Patient on telemetry monitoring. History of hypertension Because of hypotension on admission and AK would hold lisinopril and Coreg Trend blood pressures. DVT Prophylaxis Not indicated since patient is on Eliquis for A. fib. Eliquis continued. Code Visit Inpatient E&M: 43171 Init Hosp L3
[2018-09-28 20:56] LABS: Lactic Acid 1.6 mmol/L (0.4-2.0)
[2018-09-28 21:02] LABS: Bacteria 0 SEEN /hpf (None Seen); Mucous, Urine 0 SEEN /hpf (<or=2+); Red Blood Cells-Urine 0 SEEN /hpf (0-5); Squamous Epithelial Cells - UA 0 SEEN /hpf (0-5); White Blood Cells 0 SEEN /hpf (0-5)
[2018-09-28 21:12] LABS: Color, Urine Yellow (Yellow); Glucose, Dipstick Normal (Normal); Ketone-Dipstick Negative (Negative); Leukocyte Esterase-Dipstick Negative /ul (Negative); Nitrite-Dipstick Negative (Negative); Occult Blood-Urine 10 /ul (Negative); Protein-Dipstick Negative (Negative); Specific Gravity, Urine 1.015 (1.002-1.030); Urine Bilirubin Dipstick Negative (Negative); Urine Clarity Clear (Clear); Urine Urobilinogen Normal (Normal)
[2018-09-28] MEDS: 0.9% Normal Saline 1,000 ML 999 ML IV (21:13)
[2018-09-28] MEDS: Vancomycin IV 1,000 MG/200 ML BAG 200 MG IV (21:52)
[2018-09-28] MEDS: 0.9% Normal Saline 1,000 ML 150 ML IV (23:07)
[2018-09-28] MEDS: APIXABAN 5 MG TABLET PO (23:30)
[2018-09-29] VITALS (53 sets, daily range): BP systolic 70–118; BP diastolic 36–79; PULSE 76–121; RESP 15–26; TEMP 35.8–38.1; O2SAT 96–100
[2018-09-29] MEDS: Acetaminophen 325 MG Tablet 650 MG PO (02:22)
--- NOTE | 2018-09-29 02:53 | PCM.RX.CS ---
Consult Pharmacy has been consulted to manage selected antiobiotic: Vancomycin Type of Consult: New start Suspected Infection: Sepsis Prior Doses of Antibiotics Received/Current Regimen: Medications Vancomycin HCl (Vancomycin) 1,000 mg in 200 mls @ 200 mls/hr IV Q24H HALEY Discontinued Medications Vancomycin HCl (Vancomycin) 1,000 mg in 200 mls @ 200 mls/hr IV X1 ONE Stop: 09/28/18 22:29 Last Admin: 09/28/18 21:52 Dose: 200 mls/hr Labs: Sodium 139 mmol/L (136-145) 09/28/18 19:35 Potassium 5.3 mmol/L (3.5-5.1) H 09/28/18 19:35 Chloride 104 mmol/L (98-107) 09/28/18 19:35 Carbon Dioxide 26.0 mmol/L (21.0-32.0) 09/28/18 19:35 Anion Gap 9 (5-15) 09/28/18 19:35 BUN 87 mg/dL (7-18) H 09/28/18 19:35 Creatinine 2.18 mg/dL (0.70-1.30) H 09/28/18 19:35 Est GFR (MDRD) Af Amer 38 mL/min (>60) L 09/28/18 19:35 Est GFR (MDRD) Non-Af 31 mL/min (>60) L 09/28/18 19:35 BUN/Creatinine Ratio 39.9 RATIO (10-20) H 09/28/18 19:35 Glucose 125 mg/dL (74-106) H 09/28/18 19:35 Weight used for dosin kg Estimated Creatinine Clearance: 29.9 Goal Trough: 15-20 mcg/mL Pharmacy Plan for Drug Dosing: Pharmacy Service will continue to monitor and adjust dosing as required. Follow-Up Labs: Trough Vancomycin Labs to be done on [date and time ordered]: 09/30/18 @1248
[2018-09-29] MEDS: 0.9% Normal Saline 1,000 ML 999 ML IV (05:35)
[2018-09-29] MEDS: Piperacil/Tazobactam 3.375 GM/50 ML ML IV (06:38)
[2018-09-29] MEDS: 0.9% Normal Saline 1,000 ML 150 ML IV (06:38)
[2018-09-29 07:16] LABS: Hematocrit 20.7 % (40-54); Hemoglobin 6.3 g/dl (13.0-16.5); Mean Corp Hgb Conc 30.4 g/gl (32-36); Mean Corpuscular Hgb 25.6 pg (27.0-32.0); Mean Corpuscular Volume 84.1 fL (80-94); Mean Platelet Vol. 9.7 fl (6.2-12.0); Platelet Count 448 K/mm3 (150-450); RBC Distribution Width CV 17.6 % (11.6-14.6); RBC Distribution Width SD 54.2 fl (35.1-43.9); Red Blood Count 2.46 M/mm3 (4.6-6.2); White Blood Count 13.3 K/mm3 (4.4-11.0)
[2018-09-29 07:19] LABS: Scan Indicated on CBC? Y/N NO
[2018-09-29 07:22] LABS: Anion Gap 8 (5-15); BUN 70 mg/dL (7-18); BUN/Creat Ratio 46.4 RATIO (10-20); Chloride 112 mmol/L (98-107); Creatinine, Serum 1.51 mg/dL (0.70-1.30); EST Glomerular Filtration Rate 48 mL/min (>60); Est Glom Filt Rate - Afr Amer 58 mL/min (>60); Estimated Creatinine Clearance 43.17 ml/min; Glucose 115 mg/dL (74-106); Sodium Level 143 mmol/L (136-145)
--- NOTE | 2018-09-29 07:32 | NURSING ---
Pt to ICU bed 6 from PCU w/2 [employer]PER[employer]OCATIONAL [employer]'s transporting.
--- NOTE | 2018-09-29 07:32 | NURSING ---
This RN called report to CONSTRUCTION FIELD ENGINEERNeal at 07:10
[2018-09-29 08:39] LABS: Hematocrit 21.4 % (40-54); Hemoglobin 6.5 g/dl (13.0-16.5); Mean Corp Hgb Conc 30.4 g/gl (32-36); Mean Corpuscular Hgb 26.1 pg (27.0-32.0); Mean Corpuscular Volume 85.9 fL (80-94); Mean Platelet Vol. 10.5 fl (6.2-12.0); Platelet Count 512 K/mm3 (150-450); RBC Distribution Width CV 17.4 % (11.6-14.6); Red Blood Count 2.49 M/mm3 (4.6-6.2); White Blood Count 15.4 K/mm3 (4.4-11.0)
[2018-09-29 08:40] LABS: Scan Indicated on CBC? Y/N NO
--- NOTE | 2018-09-29 09:01 | RAD_ITS ---
STUDY: X-RAY - LEFT TIBIA AND FIBULA REASON FOR EXAM: Male, 78 years old. Infection TECHNIQUE: 3 views view(s) of the tibia and fibula were obtained. COMPARISON: None. FINDINGS: There is cortical irregularity noted in the anterior aspect of the mid to distal tibia with adjacent soft tissue lucency. Cortical thickening is also noted in the mid to distal fibula. RAD/Tibia & Fibula 2 Views IMPRESSION: Irregularity in the cortex and adjacent soft tissues of the mid to distal tibia and fibula, may represent an infectious process. MRI may be helpful for further evaluation. Electronically Signed: Gavino Gonzales, at 11:14 EST Tel , Service support ,
--- NOTE | 2018-09-29 09:01 | RAD_ITS ---
STUDY: X-RAY - LEFT FOOT CLINICAL: Male, 78 years old. Infection. TECHNIQUE: 3 views are obtained view(s) of the foot. COMPARISON: January 30, 2018 FINDINGS: There is mild bony spurring on the plantar calcaneus. Normal visualized subtalar, talonavicular, calcaneocuboid, tarsal and tarsometatarsal articulations. There is mild joint space narrowing at the tarsometatarsal joints. There is mild joint space narrowing and osteophyte formation at the first metatarsophalangeal joint. Normal tibial and fibular sesamoid bones. Normal interphalangeal joint of the great toe. Normal phalanges of the great toe. Normal second through fifth metatarsophalangeal joints. There is mild hammertoe configuration of the second through fourth toes. Nonspecific lucencies noted in the soft tissues of the lower leg at the level of the distal tibia. There is periosteal thickening and irregularity involving the anterior tibia which may represent sequelae from venous stasis or chronic infection. RAD/Foot min 3 Views IMPRESSION: Periosteal thickening in the anterior tibia may be related to venous stasis or chronic infection. Clinical correlation recommended. Nonspecific lucencies in the soft tissues as described may represent ulceration. Clinical correlation recommended. If further evaluation is warranted, MRI can be obtained. Electronically Signed: Gavino Gonzales, at 11:11 EST Tel , Service support ,
--- NOTE | 2018-09-29 09:09 | PCM.PROGNOTE ---
Patient Problems: Active and Suspected Problems Septic shock (Acute) Syncope (Acute) Subjective: Chief complaint: Follow-up after admission for syncopal episode, septic shock secondary to suspected osteomyelitis of the left leg/nonhealing infected ulcer/wound of the left leg with extensive necrotic tissue, exposed bone, muscles or tendons, also found to have acute kidney injury. Patient seen and examined. No acute events overnight. He complains of being very weak and fatigued. Denies chest pain or shortness of breath. Denies fever chills. Denied abdominal pain, nausea or vomiting. Patient was started on IV Levophed drip because of hypotension. He is afebrile, blood pressure has been in the 80s systolic, pulse ox and heart rate maintained. This patient has chronic nonhealing left leg arterial ulcer with exposed left tibia, tenderness of muscles with extensive necrotic tissues and gangrene. He has been following up with podiatry medicine for a long time and according to Dr. Diana who spoke with Dr. Cleary, there is no significant improvement in the left leg wound and it has been progressing with gangrene and necrotic tissue and probably, distally cannot be saved and patient will probably need amputation. - Physical Exam General: Alert, Oriented x3, Cooperative, No apparent distress HEENT: Atraumatic, PERRLA, EOMI, Normocephalic Oral: No Gingival or Mucosal Lesions/ Ulcerations, Dry Mucosa Neck: Supple, No JVD, Negative Carotid Bruits, Trachea Midline, Thyroid Normal Size and Texture Lungs: Clear to auscultation, No rhonchi, No wheeze, No rales, Diminished Cardiovascular: Regular rate, Regular Rhythm, Normal S1, Normal S2, No murmurs, PMI Normal Abdomen: Bowel Sounds Present, Soft, Non Tender, Non-Distended, No Hepato-splenomegaly Extremities: No clubbing, No cyanosis, No edema Skin: No rashes, Ulcer/ Wound - Left leg: Large wound on the anterior aspect of the left leg extending from mid left foot up to the upper one third of the left tibia, size is about 40 cm x 10 cm with exposed bone, tendons and muscles, necrotic tissue with gangrene. There is another wound on the dorsal aspect of the left leg measuring about 10 x 4 cm. Lymphatic: No Cervical, Supraclavicular, or Inguinal Adenopathy Neurological: Cranial nerves II-XII grossly intact, Motor Exam 5/5 strength throughout Psych/Mental Status: Normal Affect, Appropriate, Alert and oriented to time, place, person, mood and affect Vital Signs Temp Pulse Resp BP Pulse Ox 98.2 F 88 18 84/45 L 98 09/29/18 06:47 09/29/18 06:57 09/29/18 06:47 09/29/18 06:47 09/29/18 06:47 Oxygen Flow Rate (L/min) 2 Oxygen Delivery Method Room Air Weight: 164 lb 3.91 oz Body Mass Index (BMI) 21.5 Intake and Output for Last 24 Hours 09/27/18 09/28/18 09/29/18 23:59 23:59 23:59 Intake Total 958 / 958 870 / 870 Output Total 200 / 200 Balance 958 / 958 670 / 670 Laboratory Tests Past 24 Hrs 09/28/18 09/28/18 09/28/18 19:35 19:35 19:35 WBC 14.4 H RBC 3.13 L Hgb 8.0 L Hct 26.3 L MCV 84.0 MCH 25.6 L MCHC 30.4 L RDW 17.4 H RDW Differential 52.9 H Plt Count 567 H MPV 9.9 Immature Gran % (Auto) 0.200 Neut % (Auto) 86.8 H Lymph % (Auto) 8.0 L [place] % (Auto) 4.5 Eos % (Auto) 0.4 Baso % (Auto) 0.1 Absolute Neuts (auto) 12.5 H Absolute Lymphs (auto) 1.15 Total Counted Not Reportable Sodium 139 Potassium 5.3 H Chloride 104 Carbon Dioxide 26.0 Anion Gap 9 BUN 87 H Creatinine 2.18 H Estim Creat Clear Calc 29.86 Est GFR (MDRD) Af Amer 38 L Est GFR (MDRD) Non-Af 31 L BUN/Creatinine Ratio 39.9 H Glucose 125 H Lactic Acid 1.6 Calcium 9.6 Troponin I < 0.015 C-React Prot High Sens Urine Color Urine Clarity Urine pH Ur Specific [place] Urine Protein Urine Glucose (UA) Urine Ketones Urine Occult Blood Urine Nitrite Urine Bilirubin Urine Urobilinogen Ur Leukocyte Esterase Urine RBC Urine WBC Ur Squamous Epith Cells Urine Bacteria Urine Mucus 09/28/18 09/28/18 09/29/18 19:35 21:00 06:39 WBC RBC Hgb Hct MCV MCH MCHC RDW RDW Differential Plt Count MPV Immature Gran % (Auto) Neut % (Auto) Lymph % (Auto) [place] % (Auto) Eos % (Auto) Baso % (Auto) Absolute Neuts (auto) Absolute Lymphs (auto) Total Counted Sodium 143 Potassium 4.0 Chloride 112 H Carbon Dioxide 23.0 Anion Gap 8 BUN 70 H Creatinine 1.51 H Estim Creat Clear Calc 43.17 Est GFR (MDRD) Af Amer 58 L Est GFR (MDRD) Non-Af 48 L BUN/Creatinine Ratio 46.4 H Glucose 115 H Lactic Acid Calcium 8.0 L Troponin I C-React Prot High Sens 125.00 H Urine Color Yellow Urine Clarity Clear Urine pH 6.0 Ur Specific [place] 1.015 Urine Protein Negative Urine Glucose (UA) Normal Urine Ketones Negative Urine Occult Blood 10 H Urine Nitrite Negative Urine Bilirubin Negative Urine Urobilinogen Normal Ur Leukocyte Esterase Negative Urine RBC 0 SEEN Urine WBC 0 SEEN Ur Squamous Epith Cells 0 SEEN Urine Bacteria 0 SEEN Urine Mucus 0 SEEN 09/29/18 09/29/18 06:39 08:15 WBC 13.3 H 15.4 H RBC 2.46 L 2.49 L Hgb 6.3 L 6.5 L Hct 20.7 L 21.4 L MCV 84.1 85.9 MCH 25.6 L 26.1 L MCHC 30.4 L 30.4 L RDW 17.6 H 17.4 H RDW Differential 54.2 H 52.0 H Plt Count 448 512 H MPV 9.7 10.5 Immature Gran % (Auto) Neut % (Auto) Lymph % (Auto) [place] % (Auto) Eos % (Auto) Baso % (Auto) Absolute Neuts (auto) Absolute Lymphs (auto) Total Counted Sodium Potassium Chloride Carbon Dioxide Anion Gap BUN Creatinine Estim Creat Clear Calc Est GFR (MDRD) Af Amer Est GFR (MDRD) Non-Af BUN/Creatinine Ratio Glucose Lactic Acid Calcium Troponin I C-React Prot High Sens Urine Color Urine Clarity Urine pH Ur Specific [place] Urine Protein Urine Glucose (UA) Urine Ketones Urine Occult Blood Urine Nitrite Urine Bilirubin Urine Urobilinogen Ur Leukocyte Esterase Urine RBC Urine WBC Ur Squamous Epith Cells Urine Bacteria Urine Mucus Medical Necessity - Tobacco Use Smoking Status: Former smoker Tobacco Use: Cigarettes Assessment/Plan All Active Problems Septic shock (Acute) Syncope (Acute) Cellulitis of leg without foot, left (Acute) This is a 78 years old male patient presented to the medicine because of syncopal episode, found to have septic shock secondary to nonhealing infected large ulcer of the left leg with osteomyelitis of the left tibia with extensive necrotic tissue and gangrene in context of history of severe peripheral vascular disease and also found to have acute on chronic anemia and acute kidney injury. #1 septic shock: Secondary to osteomyelitis of the left leg/tibia with infected large left leg ulcer/wound, necrosis and gangrene as well. Normally, patient's blood pressure runs low in the 90 systolic but it has been down to 70s. Patient received bolus of IV fluids without improvement of his blood pressure. Started on IV Levophed drip. At this time, blood pressure improved, afebrile, other vital signs are stable. He is on IV meropenem and vancomycin. Blood and wound cultures are pending. Plan to continue same treatment. #2 nonhealing infected left leg large wound/ulcer, osteomyelitis of the left tibia/extensive necrotic tissue and gangrene: In context of history of severe peripheral vascular disease. Patient has been following up with podiatry medicine and wound care for a long time and reportedly, no improvement of his left leg wound and it has been getting worse and more extensive. After discussion with the patient and Dr. Diana, the manager training and development, and given his situation regarding the severe peripheral vascular disease, we recommended patient to go for amputation of the left leg because the infection is deep and severe, bone is exposed with necrotic tissue and gangrene and even with revascularization of the left lower extremity, chances of recovering and saving the left leg is very low and almost none. As mentioned above, patient is on IV meropenem and vancomycin. Plan: Orthopedic surgery consult for amputation. #3 acute on chronic anemia: Baseline hemoglobin has been around 9-12 g/dL. At this time, no evidence of active bleeding. Admission hemoglobin was 8 g/dL, came down to 6.3 this morning. It is normocytic anemia. Order given to give 2 units of packed RBCs. Plan to repeat H&H after blood transfusion, repeat CBC tomorrow morning. #4 acute kidney injury: Baseline creatinine has been normal. It is likely due to ATN secondary to septic shock and hypoperfusion. Admission creatinine was 2.18. Patient is on IV fluids and vasopressors. Creatinine came down to 1.51 today, improving. #5 A. fib with RVR: Patient did have a history of chronic atrial fibrillation. Last night, heart rate went up to 130s. This morning, heart rate is down to 80s-90s while on IV Levophed. No treatment given. At home, he has not been on any medication for rate control. Eliquis held because patient probably will go for surgery. #5 chronic systolic CHF/nonischemic cardiomyopathy: Clinically stable, compensated at this time. Patient has been receiving IV fluids. He had 2D echocardiogram back on July, and showed ejection fraction of 50-55%. Coreg and lisinopril held because of septic shock. Plan for close monitoring to avoid volume overload. #6 hypertension: On vasopressors, Coreg and lisinopril held. #7 DVT prophylaxis: DC Eliquis as patient may go for surgery. This note was generated with [employer] dictation software. It may contain incorrect words, spelling, and punctuation that were not noted in checking the note before signing. Code Visit Inpatient E&M: 50727 [facility] Hosp L3
--- NOTE | 2018-09-29 09:34 | PCM.PROGNOTE ---
Patient Problems: Active and Suspected Problems Septic shock (Acute) Syncope (Acute) Subjective: This this 78-year-old male patient was consulted to podiatry this morning after he presented to the emergency room last evening after having a syncopal episode while out to dinner last night. He was transferred to hospital by squad. Patient has been transferred to ICU today due to low blood pressure. This patient is known to Dr. Cleary as she has been treating him for many months at the wound healing center. The patient's extensive ulcers to left anterior and posterior lower leg and dorsal foot have shown continued deterioration over the months. He has had surgery in the past with Dr. Maloney for small vessel occlusions back in July. This patient has suspected osteomyelitis with extensive amount of necrotic anterior tibia exposed through anterior ulcer. Patient is currently resting comfortably in bed. He is currently denying any feeling of nausea, vomiting, or fever. He does relate some slight chills and says this is normal for him. - Physical Exam General: Alert, Oriented x3, Cooperative Extremities: Capillary Refill Less than 3 Seconds, Diminished Peripheral Pulses - DP and PT pulses nonpalpable to the left side, Edema, Tenderness - With manipulation of ulcer sites Skin: Ulcer/ Wound - Ulcer to anterior left lower leg approximately 30 cm x 15 cm. Ulcer to anterior lower leg extends from mid lower leg down to proximal foot. There is necrotic bone to the tibial crest as well as to the dorsal medial foot. There is also exposed and devitalized tendon with eschar noted throughout the ulcer site. There is malodor noted as well as some serosanguineous drainage. No thick purulence appreciated and no streaking or extending cellulitis. There is some slight surrounding erythema to the ulcer site. Ulcer to the posterior left lower leg measures approximately 10 cm x 6 cm and the base is noted to have a mixture of granular and fibrous tissue. No purulence or extending or streaking cellulitis noted to this area either. Musculoskeletal: Tenderness - With manipulation of ulcer site Neurological: - - Lack of normal epicritic sensation light touch left lower extremity Psych/Mental Status: Normal Affect, Appropriate Vital Signs Temp Pulse Resp BP Pulse Ox 98.2 F 88 18 84/45 L 98 09/29/18 06:47 09/29/18 06:57 09/29/18 06:47 09/29/18 06:47 09/29/18 06:47 Oxygen Flow Rate (L/min) 2 Oxygen Delivery Method Room Air Weight: 74.5 kg Body Mass Index (BMI) 21.5 Intake and Output for Last 24 Hours 09/27/18 09/28/18 09/29/18 23:59 23:59 23:59 Intake Total 958 / 958 870 / 870 Output Total 200 / 200 Balance 958 / 958 670 / 670 Laboratory Tests Past 24 Hrs 09/28/18 09/28/18 09/28/18 19:35 19:35 19:35 WBC 14.4 H RBC 3.13 L Hgb 8.0 L Hct 26.3 L MCV 84.0 MCH 25.6 L MCHC 30.4 L RDW 17.4 H RDW Differential 52.9 H Plt Count 567 H MPV 9.9 Immature Gran % (Auto) 0.200 Neut % (Auto) 86.8 H Lymph % (Auto) 8.0 L [place] % (Auto) 4.5 Eos % (Auto) 0.4 Baso % (Auto) 0.1 Absolute Neuts (auto) 12.5 H Absolute Lymphs (auto) 1.15 Total Counted Not Reportable Sodium 139 Potassium 5.3 H Chloride 104 Carbon Dioxide 26.0 Anion Gap 9 BUN 87 H Creatinine 2.18 H Estim Creat Clear Calc 29.86 Est GFR (MDRD) Af Amer 38 L Est GFR (MDRD) Non-Af 31 L BUN/Creatinine Ratio 39.9 H Glucose 125 H Lactic Acid 1.6 Calcium 9.6 Troponin I < 0.015 C-React Prot High Sens Urine Color Urine Clarity Urine pH Ur Specific [place] Urine Protein Urine Glucose (UA) Urine Ketones Urine Occult Blood Urine Nitrite Urine Bilirubin Urine Urobilinogen Ur Leukocyte Esterase Urine RBC Urine WBC Ur Squamous Epith Cells Urine Bacteria Urine Mucus 09/28/18 09/28/18 09/29/18 19:35 21:00 06:39 WBC RBC Hgb Hct MCV MCH MCHC RDW RDW Differential Plt Count MPV Immature Gran % (Auto) Neut % (Auto) Lymph % (Auto) [place] % (Auto) Eos % (Auto) Baso % (Auto) Absolute Neuts (auto) Absolute Lymphs (auto) Total Counted Sodium 143 Potassium 4.0 Chloride 112 H Carbon Dioxide 23.0 Anion Gap 8 BUN 70 H Creatinine 1.51 H Estim Creat Clear Calc 43.17 Est GFR (MDRD) Af Amer 58 L Est GFR (MDRD) Non-Af 48 L BUN/Creatinine Ratio 46.4 H Glucose 115 H Lactic Acid Calcium 8.0 L Troponin I C-React Prot High Sens 125.00 H Urine Color Yellow Urine Clarity Clear Urine pH 6.0 Ur Specific [place] 1.015 Urine Protein Negative Urine Glucose (UA) Normal Urine Ketones Negative Urine Occult Blood 10 H Urine Nitrite Negative Urine Bilirubin Negative Urine Urobilinogen Normal Ur Leukocyte Esterase Negative Urine RBC 0 SEEN Urine WBC 0 SEEN Ur Squamous Epith Cells 0 SEEN Urine Bacteria 0 SEEN Urine Mucus 0 SEEN 09/29/18 09/29/18 06:39 08:15 WBC 13.3 H 15.4 H RBC 2.46 L 2.49 L Hgb 6.3 L 6.5 L Hct 20.7 L 21.4 L MCV 84.1 85.9 MCH 25.6 L 26.1 L MCHC 30.4 L 30.4 L RDW 17.6 H 17.4 H RDW Differential 54.2 H 52.0 H Plt Count 448 512 H MPV 9.7 10.5 Immature Gran % (Auto) Neut % (Auto) Lymph % (Auto) [place] % (Auto) Eos % (Auto) Baso % (Auto) Absolute Neuts (auto) Absolute Lymphs (auto) Total Counted Sodium Potassium Chloride Carbon Dioxide Anion Gap BUN Creatinine Estim Creat Clear Calc Est GFR (MDRD) Af Amer Est GFR (MDRD) Non-Af BUN/Creatinine Ratio Glucose Lactic Acid Calcium Troponin I C-React Prot High Sens Urine Color Urine Clarity Urine pH Ur Specific [place] Urine Protein Urine Glucose (UA) Urine Ketones Urine Occult Blood Urine Nitrite Urine Bilirubin Urine Urobilinogen Ur Leukocyte Esterase Urine RBC Urine WBC Ur Squamous Epith Cells Urine Bacteria Urine Mucus Medical Necessity - Tobacco Use Smoking Status: Former smoker Tobacco Use: Cigarettes Assessment/Plan All Active Problems Septic shock (Acute) Syncope (Acute) Cellulitis of leg without foot, left (Acute) Osteomyelitis Left Lower Leg (tibia) Ulcer of left lower extremity with necrosis muscle/tendon/bone Ulcer left lower extremity with fat layer exposed PVD Venous insufficiency Delayed wound healing Patient was carefully examined and evaluated bedside with Dr. Costa present. Ulcer sites were carefully examined. Patient is currently afebrile. Patient's white count was 15.4 and CRP is 125. Description of ulcer sites can be noted above. Very light manual debridement was performed to any loosened/necrotic areas. Once complete the area was carefully cleansed and then dressed with betadine soaked 4x4s, dry 4x4s, and kerlix in order to prevent further tendon deterioration and liquefication. Patient is to keep these areas offloaded at all times. His most recent non invasive vascular studies demonstrate monophasic DP and PT waveforms as well as right PEREZ of 0.56 an left PEREZ of 0.49. I spoke with both Dr. Cleary via telephone as well as Dr. Costa after evaluating the patient with him bedside. At this time, I feel an orthopedic consult is in the patients best interest in order to be evaluated for amputation with the amount of long standing exposed/necrotic tibia and osteomyelitis. As stated before, this patient has shown continued progression and deterioration of his ulcer sites throughout his treatment at the wound healing center. Even if sufficient blood flow was restored to the lower leg and foot, there is still little hope for remodeling or salvageability to the lower leg. I discussed the possibility of amputation with the patient with Dr. Costa present, and he was open to the idea if that what was felt was needed to be done. Dr. Costa will be placing orthopedic consult for further evaluation for amputation. Blood cultures and wound cultures are still pending. X-rays of left tib/fib and left foot were ordered and show osseous destruction especially to tibia consistent with osteomyelitis. Please contact me with any questions.
--- NOTE | 2018-09-29 09:36 | PCM.CON.CC ---
Problem List (1) Osteomyelitis of left tibia Status: Chronic Qualifiers: (2) Ulcer of left lower extremity with fat layer exposed Status: Chronic (3) Ulcer of left lower extremity with necrosis of bone Status: Chronic (4) Ulcer of left lower extremity with necrosis of muscle Status: Chronic (5) Severe sepsis Status: Acute (6) Syncope Status: Acute (7) Cellulitis of leg without foot, left Status: Acute (8) Venous insufficiency Status: Chronic (9) CKD (chronic kidney disease) stage 3, GFR 30-59 ml/min Status: Chronic (10) Anemia Status: Chronic (11) Ulcer of left lower extremity with necrosis of muscle Status: Chronic (12) Delayed wound healing Status: Chronic (13) Nonischemic cardiomyopathy Status: Chronic (14) Chronic systolic CHF (congestive heart failure) Status: Chronic (15) Chronic atrial fibrillation Status: Chronic (16) Bilateral edema of lower extremity Status: Chronic (17) Open wounds involving multiple regions of lower extremity Status: Chronic (18) Neuropathic pain, leg, bilateral Status: Chronic (19) 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 Patient was reportedly attempting to sit down and became unresponsive. Patient reportedly had some twitching and EMS was called. Patient did not report any chest pain, shortness of breath, but reportedly nodded off quickly. On presentation to the ER, patient was noted to have systolic blood pressure in the 90s. Patient had reported decreased p.o. intake recently. Laboratory workup did show a leukocytosis of 14.4 and elevated platelets of 567. Creatinine was significantly elevated at 2.18 (baseline 0.8). Working diagnosis was hypotension was related to dehydration, so patient was admitted to PCU. This morning, patient was noted to have persistent systolic blood pressures in the 70s despite 4-1/2 L of IV fluids. Patient was transferred to the intensive care unit for further evaluation. Patient was initiated on Levophed peripherally. Patient had received Eliquis therapy at 11:30 PM last night. Patient has been evaluated by the wound center. Patient is being treated for a left lower extremity wound. Patient had noted some exudate recently. 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 Patient denies any current chest pain, abdominal pain, nausea or vomiting. Patient does feel subjectively improved since admission to the hospital, but I still feel right. Patient does report that he was supposed to have a femoropopliteal bypass completed by vascular surgery to help with wound healing. 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 Patient states his last EF was 50% and has improved since I had that virus. Patient reports he has been compliant with his medications as ordered. Patient denies any recent trauma. Patient denies any recent dysuria, hematuria, hemoptysis or melena. Patient does state that he would want full measures if required. Review of systems otherwise negative x10 systems 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) 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) Venous insufficiency (Chronic) CKD (chronic kidney disease) stage 3, GFR 30-59 ml/min (Chronic) Anemia (Chronic) 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) Delayed wound healing (Chronic) Nonischemic cardiomyopathy (Chronic) Chronic systolic CHF (congestive heart failure) (Chronic) Chronic atrial fibrillation (Chronic) Bilateral edema of lower extremity (Chronic) Open wounds involving multiple regions of lower extremity (Chronic) Neuropathic pain, leg, 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 [Ecotrin] 81 mg PO DAILY@0800 11/06/15 Apixaban [Eliquis] 5 mg PO BID 05/24/17 Carvedilol [Coreg (Beta Min)] 12.5 mg PO BID 05/24/17 Lisinopril [Zestril] 10 mg PO DAILY tablet 03/07/18 Nutritional Supplement [Napoleon - 1 packet PO BID #60 packet 03/07/18 ORANGE FLAVOR] traMADol [Ultram (G)] 50 mg PO Q6H PRN PRN 09/28/18 Surgical History: appendectomy, herniorrhaphy, - - Hand surgery Psychiatric History: No pertinent psych hx Smoking Status: Former smoker Tobacco Use: Cigarettes - *Family History Maternal History Items: Dementia Paternal History Items: - - venous ulcers Review of Systems Comment: See HPI Patient Problems: Active and Suspected Problems Severe sepsis (Acute) Syncope (Acute) Objective: Chest x-ray was personally reviewed and shows no acute infiltrate - Physical Exam General: Alert, Oriented x3, Cooperative, No apparent distress, - - Appears stated age. Thin build. No conversational dyspnea HEENT: Atraumatic, PERRLA, EOMI, Normocephalic, - - No scleral icterus or injection noted Oral: Moist Mucosa, No Gingival or Mucosal Lesions/ Ulcerations, - - Poor dentition Neck: Supple, No JVD, No Nodes, Trachea Midline Lungs: No rhonchi, No wheeze, No rales, Diminished, - - Metric expansion. No dullness to percussion. Cardiovascular: Normal S1, Normal S2, No murmurs, Irregular Rate, No rub noted, No Gallop Abdomen: Bowel Sounds Present, Soft, Non Tender, Non-Distended Extremities: No clubbing, No cyanosis, Diminished Peripheral Pulses, Edema - Left lower extremity Skin: Ulcer/ Wound - Large ulcers of the left lower extremity with exposed bone and tendon noted Musculoskeletal: Tenderness - Palpation of left lower extremity Lymphatic: No Cervical, Supraclavicular, or Inguinal Adenopathy Neurological: Cranial nerves II-XII grossly intact, Neuro grossly intact Psych/Mental Status: Alert and oriented to time, place, person, mood and affect Vital Signs Temp Pulse Resp BP Pulse Ox 36.8 C 88 18 84/45 L 98 09/29/18 06:47 09/29/18 06:57 09/29/18 06:47 09/29/18 06:47 09/29/18 06:47 Oxygen Flow Rate (L/min) 2 Oxygen Delivery Method Room Air Weight: 74.5 kg Body Mass Index (BMI) 21.5 Intake and Output for Last 24 Hours 09/27/18 09/28/18 09/29/18 23:59 23:59 23:59 Intake Total 958 / 958 870 / 870 Output Total 200 / 200 Balance 958 / 958 670 / 670 Laboratory Tests Past 24 Hrs 09/28/18 09/28/18 09/28/18 19:35 19:35 19:35 WBC 14.4 H RBC 3.13 L Hgb 8.0 L Hct 26.3 L MCV 84.0 MCH 25.6 L MCHC 30.4 L RDW 17.4 H RDW Differential 52.9 H Plt Count 567 H MPV 9.9 Immature Gran % (Auto) 0.200 Neut % (Auto) 86.8 H Lymph % (Auto) 8.0 L [place] % (Auto) 4.5 Eos % (Auto) 0.4 Baso % (Auto) 0.1 Absolute Neuts (auto) 12.5 H Absolute Lymphs (auto) 1.15 Total Counted Not Reportable Sodium 139 Potassium 5.3 H Chloride 104 Carbon Dioxide 26.0 Anion Gap 9 BUN 87 H Creatinine 2.18 H Estim Creat Clear Calc 29.86 Est GFR (MDRD) Af Amer 38 L Est GFR (MDRD) Non-Af 31 L BUN/Creatinine Ratio 39.9 H Glucose 125 H Lactic Acid 1.6 Calcium 9.6 Troponin I < 0.015 C-React Prot High Sens Urine Color Urine Clarity Urine pH Ur Specific [place] Urine Protein Urine Glucose (UA) Urine Ketones Urine Occult Blood Urine Nitrite Urine Bilirubin Urine Urobilinogen Ur Leukocyte Esterase Urine RBC Urine WBC Ur Squamous Epith Cells Urine Bacteria Urine Mucus 09/28/18 09/28/18 09/29/18 19:35 21:00 06:39 WBC RBC Hgb Hct MCV MCH MCHC RDW RDW Differential Plt Count MPV Immature Gran % (Auto) Neut % (Auto) Lymph % (Auto) [place] % (Auto) Eos % (Auto) Baso % (Auto) Absolute Neuts (auto) Absolute Lymphs (auto) Total Counted Sodium 143 Potassium 4.0 Chloride 112 H Carbon Dioxide 23.0 Anion Gap 8 BUN 70 H Creatinine 1.51 H Estim Creat Clear Calc 43.17 Est GFR (MDRD) Af Amer 58 L Est GFR (MDRD) Non-Af 48 L BUN/Creatinine Ratio 46.4 H Glucose 115 H Lactic Acid Calcium 8.0 L Troponin I C-React Prot High Sens 125.00 H Urine Color Yellow Urine Clarity Clear Urine pH 6.0 Ur Specific [place] 1.015 Urine Protein Negative Urine Glucose (UA) Normal Urine Ketones Negative Urine Occult Blood 10 H Urine Nitrite Negative Urine Bilirubin Negative Urine Urobilinogen Normal Ur Leukocyte Esterase Negative Urine RBC 0 SEEN Urine WBC 0 SEEN Ur Squamous Epith Cells 0 SEEN Urine Bacteria 0 SEEN Urine Mucus 0 SEEN 09/29/18 09/29/18 06:39 08:15 WBC 13.3 H 15.4 H RBC 2.46 L 2.49 L Hgb 6.3 L 6.5 L Hct 20.7 L 21.4 L MCV 84.1 85.9 MCH 25.6 L 26.1 L MCHC 30.4 L 30.4 L RDW 17.6 H 17.4 H RDW Differential 54.2 H 52.0 H Plt Count 448 512 H MPV 9.7 10.5 Immature Gran % (Auto) Neut % (Auto) Lymph % (Auto) [place] % (Auto) Eos % (Auto) Baso % (Auto) Absolute Neuts (auto) Absolute Lymphs (auto) Total Counted Sodium Potassium Chloride Carbon Dioxide Anion Gap BUN Creatinine Estim Creat Clear Calc Est GFR (MDRD) Af Amer Est GFR (MDRD) Non-Af BUN/Creatinine Ratio Glucose Lactic Acid Calcium Troponin I C-React Prot High Sens Urine Color Urine Clarity Urine pH Ur Specific [place] Urine Protein Urine Glucose (UA) Urine Ketones Urine Occult Blood Urine Nitrite Urine Bilirubin Urine Urobilinogen Ur Leukocyte Esterase Urine RBC Urine WBC Ur Squamous Epith Cells Urine Bacteria Urine Mucus Clinical Impression(s) from Imaging Studies Chest X-Ray 09/28/18 19:11 IMPRESSION: Degenerative changes, as described above. No demonstrated acute cardiopulmonary process. Electronically Signed: Ronaldo Romo MD at 20:13 EST Tel , Service support , Assessment/Plan Active and Suspected Problems Severe sepsis (Acute) Syncope (Acute) RECOMMENDATIONS: 1. Peripheral pressors for now 2. Potential central line later today 3. Transition from Zosyn to meropenem given previous susceptibilities 4. Continue vancomycin 5. Monitor oxygenation closely 6. Obtain old records from [facility] IMPRESSIONS: 1. Septic shock secondary to left lower extremity osteomyelitis Patient with chronic wounds of the left lower extremity. Previous cultures have shown Sheryl cepacia with intermediate resistance to Zosyn and MRSA. Patient will be placed on vancomycin. Zosyn will be transitioned to meropenem for better susceptibility. Wound center has been consulted for possible need of intervention and possible amputation. Patient did receive Eliquis therapy overnight, so will attempt to hold off on central line for now. This may be necessary this afternoon after anticoagulation is time to resolve. 2. Acute kidney injury Likely prerenal etiology secondary to #1. Patient has improved following aggressive resuscitation. We will continue to monitor. Urine output appears to be appropriate. Lisinopril has been appropriately held secondary to hypotension and acute kidney injury. No indication for renal replacement therapy at this time. 3. Possible acute blood loss anemia Patient with significant anemia on morning labs. Repeat testing shows persistent low hemoglobin. Patient is on anticoagulation, but no history of acute blood loss has been reported. Will await first bowel movement for evaluation. Patient will be transfused 2 units of packed red blood cells. This may need to be repeated this afternoon if develops clinical signs of bleeding. Other possible etiology would be intravascular hemolysis secondary to #1. 4. A. fib with RVR Vision has a history of chronic A. fib. Will need to watch ventricular rate closely given need for pressor therapy. There has been some improvement following hydration. Carvedilol has been held secondary to #1. Anticoagulation will be held secondary to a possible need for intervention. 5. Advanced age/syncope/hypertension Complicates care, management, recovery and prognosis. Antihypertensive medications have been held. Patient is a full code TIME: 47 minutes critical care time spent addressing septic shock, acute kidney injury, anemia, review of all data and collaboration with care team (8 AM to 9:50 AM) Code Visit 9xxxx: [id number] Critical care first hour
--- NOTE | 2018-09-29 10:14 | CASEMGMT ---
Participated in interdisciplinary rounds this am. Patient is already on eliquis. Chronic LLE wound that he follows with [facility] for. Hasn't been eating a lot. Was originally admitted to PCU but couldn't maintain BP so transferred to ICU. HGB low-plan to transfuse 2 units PRBCs. Discussing possible amputation of LLE. Consult to ortho. Veronica Swann RN, CCM.
--- NOTE | 2018-09-29 10:21 | CM.UR ---
See art instructor. Met face to face with patient, introduced myself and my role. States he currently has a RN (that he private pays) to come do his daily dressing change. DENIES having had any skilled home care before. Does continue to drive. Also discussed that we need a copy of his living will and DPOA for healthcare. He states he has them and mentioned a trust. Reinforced that I am referring a medical living will and DPOA for healthcare only. States he does have them. Asked if they can be brought in. Verb understanding but doesn't say that they will be brought in. Discussed discharge needs but patient states he does know until we find out what we are going to do. Agreed with vet and explained that case management will continue to follow what is going on with him so we can make recommendations or assist with any needs that come up. Verb understanding and agreement. Veronica Swann RN, [facility].
--- NOTE | 2018-09-29 13:42 | NURSING ---
Pt's reported that she is taking home his watch, necklace & bracelet. Pt aware as well. Rings remain with pt.
--- NOTE | 2018-09-29 19:28 | NURSING ---
education re chronic illness deferred till acute illness resolving
[2018-09-29 21:26] LABS: Hematocrit 25.1 % (40-54); Hemoglobin 7.9 g/dl (13.0-16.5)
[2018-09-29] MEDS: Vancomycin IV 1,000 MG/200 ML BAG 200 MG IV (21:45)
[2018-09-29] MEDS: 0.9% NaCl Peripheral Flush Adult/Peds IV (21:46)
[2018-09-30] VITALS (34 sets, daily range): BP systolic 91–152; BP diastolic 52–97; PULSE 88–131; RESP 17–29; TEMP 36.6–37.7; O2SAT 94–99
[2018-09-30 05:01] LABS: Absolute Lymphocyte Count 1.08 X10^3/ul (0.83-4.51); Basophil# 0.01 X10^3/uL; Basophil% 0.1 % (0-1); Eosinophil# 0.08 X10^3/uL; Eosinophils% 0.6 % (0-5); Hematocrit 25.1 % (40-54); Hemoglobin 7.7 g/dl (13.0-16.5); Lymphocyte # 1.08 X10^3/ul (4.0); Lymphocyte % 8.3 % (19-41); Mean Corp Hgb Conc 30.7 g/gl (32-36); Mean Corpuscular Hgb 26.3 pg (27.0-32.0); Mean Corpuscular Volume 85.7 fL (80-94); Mean Platelet Vol. 9.6 fl (6.2-12.0); Monocyte# 0.84 X10^3/uL; Monocyte% 6.4 % (0-10); Neutrophil # 10.98 X10^3/uL (2.7-7.7); Neutrophil % 84.3 % (47-70); Platelet Count 482 K/mm3 (150-450); RBC Distribution Width CV 17.5 % (11.6-14.6); RBC Distribution Width SD 54.9 fl (35.1-43.9); Red Blood Count 2.93 M/mm3 (4.6-6.2)
[2018-09-30 05:03] LABS: Anion Gap 8 (5-15); BUN 33 mg/dL (7-18); BUN/Creat Ratio 35.8 RATIO (10-20); Calcium,Total 8.5 mg/dL (8.5-10.1); Chloride 115 mmol/L (98-107); Creatinine, Serum 0.92 mg/dL (0.70-1.30); EST Glomerular Filtration Rate 85 mL/min (>60); Est Glom Filt Rate - Afr Amer 102 mL/min (>60); Estimated Creatinine Clearance 70.86 ml/min; Glucose 99 mg/dL (74-106); Potassium 3.9 mmol/L (3.5-5.1); Sodium Level 146 mmol/L (136-145)
[2018-09-30 05:09] LABS: POSITIVE COUNT NO; POSITIVE DIFFERENTIAL NO; POSITIVE MORPHOLOGY NO
--- NOTE | 2018-09-30 07:18 | PCM.PN.INT ---
Subjective: Patient did well overnight. Patient feels significantly improved compared to previous. Patient does remain in A. fib and has had some tachycardia overnight, but was able to be taken off of Levophed at approximately 2 AM. No bleeding is been reported. Patient continues to report left lower extremity and back pain, but attributes this to the bed. General: Alert, Oriented x3, Cooperative, No apparent distress, - - Appears older than stated age. No conversational dyspnea noted. HEENT: Atraumatic, PERRLA, EOMI, Normocephalic, - - No scleral icterus or injection noted. Oral: Moist Mucosa, No Gingival or Mucosal Lesions/ Ulcerations, - - Poor dentition Neck: Supple, No JVD, No Nodes, Trachea Midline Lungs: No rhonchi, No wheeze, No rales, Diminished, - - Symmetric expansion. No dullness to percussion. Cardiovascular: Normal S1, Normal S2, No murmurs, Irregular Rate, No rub noted, No Gallop, Tachycardic Abdomen: Bowel Sounds Present, Soft, Non Tender, Non-Distended Extremities: No cyanosis, Capillary Refill Less than 3 Seconds, Clubbing, Edema - Trace Skin: - - Left lower extremity wrapped. No significant changes otherwise Musculoskeletal: No Tenderness to Palpation of Joints or Extremities Lymphatic: No Cervical, Supraclavicular, or Inguinal Adenopathy Neurological: Cranial nerves II-XII grossly intact, Neuro grossly intact Psych/Mental Status: Alert and oriented to time, place, person, mood and affect Vital Signs Temp Pulse Resp BP Pulse Ox 37.2 C 97 21 H 99/67 98 09/30/18 07:00 09/30/18 07:00 09/30/18 07:00 09/30/18 07:00 09/30/18 07:00 Oxygen Flow Rate (L/min) 2 Oxygen Delivery Method Room Air Weight: 80.3 kg Body Mass Index (BMI) 21.5 Intake and Output for Last 24 Hours 09/28/18 09/29/18 09/30/18 23:59 23:59 23:59 Intake Total 958 / 958 4656.7 / 4656.7 529.6 / 529.6 Output Total 2500 / 2500 850 / 850 Balance 958 / 958 2156.7 / 2156.7 -320.4 / -320.4 Labs (Last 48 Hours) 09/28/18 09/28/18 09/28/18 19:35 19:35 19:35 WBC 14.4 H RBC 3.13 L Hgb 8.0 L Hct 26.3 L MCV 84.0 MCH 25.6 L MCHC 30.4 L RDW 17.4 H RDW Differential 52.9 H Plt Count 567 H MPV 9.9 Immature Gran % (Auto) 0.200 Neut % (Auto) 86.8 H Lymph % (Auto) 8.0 L [place] % (Auto) 4.5 Eos % (Auto) 0.4 Baso % (Auto) 0.1 Absolute Neuts (auto) 12.5 H Absolute Lymphs (auto) 1.15 Total Counted Not Reportable Sodium 139 Potassium 5.3 H Chloride 104 Carbon Dioxide 26.0 Anion Gap 9 BUN 87 H Creatinine 2.18 H Estim Creat Clear Calc 29.86 Est GFR (MDRD) Af Amer 38 L Est GFR (MDRD) Non-Af 31 L BUN/Creatinine Ratio 39.9 H Glucose 125 H Lactic Acid 1.6 Calcium 9.6 Troponin I < 0.015 C-React Prot High Sens Urine Color Urine Clarity Urine pH Ur Specific [place] Urine Protein Urine Glucose (UA) Urine Ketones Urine Occult Blood Urine Nitrite Urine Bilirubin Urine Urobilinogen Ur Leukocyte Esterase Urine RBC Urine WBC Ur Squamous Epith Cells Urine Bacteria Urine Mucus Blood Type Antibody Screen Crossmatch 09/28/18 09/28/18 09/29/18 19:35 21:00 06:39 WBC RBC Hgb Hct MCV MCH MCHC RDW RDW Differential Plt Count MPV Immature Gran % (Auto) Neut % (Auto) Lymph % (Auto) [place] % (Auto) Eos % (Auto) Baso % (Auto) Absolute Neuts (auto) Absolute Lymphs (auto) Total Counted Sodium 143 Potassium 4.0 Chloride 112 H Carbon Dioxide 23.0 Anion Gap 8 BUN 70 H Creatinine 1.51 H Estim Creat Clear Calc 43.17 Est GFR (MDRD) Af Amer 58 L Est GFR (MDRD) Non-Af 48 L BUN/Creatinine Ratio 46.4 H Glucose 115 H Lactic Acid Calcium 8.0 L Troponin I C-React Prot High Sens 125.00 H Urine Color Yellow Urine Clarity Clear Urine pH 6.0 Ur Specific [place] 1.015 Urine Protein Negative Urine Glucose (UA) Normal Urine Ketones Negative Urine Occult Blood 10 H Urine Nitrite Negative Urine Bilirubin Negative Urine Urobilinogen Normal Ur Leukocyte Esterase Negative Urine RBC 0 SEEN Urine WBC 0 SEEN Ur Squamous Epith Cells 0 SEEN Urine Bacteria 0 SEEN Urine Mucus 0 SEEN Blood Type Antibody Screen Crossmatch 09/29/18 09/29/18 09/29/18 06:39 08:15 09:35 WBC 13.3 H 15.4 H RBC 2.46 L 2.49 L Hgb 6.3 L 6.5 L Hct 20.7 L 21.4 L MCV 84.1 85.9 MCH 25.6 L 26.1 L MCHC 30.4 L 30.4 L RDW 17.6 H 17.4 H RDW Differential 54.2 H 52.0 H Plt Count 448 512 H MPV 9.7 10.5 Immature Gran % (Auto) Neut % (Auto) Lymph % (Auto) [place] % (Auto) Eos % (Auto) Baso % (Auto) Absolute Neuts (auto) Absolute Lymphs (auto) Total Counted Sodium Potassium Chloride Carbon Dioxide Anion Gap BUN Creatinine Estim Creat Clear Calc Est GFR (MDRD) Af Amer Est GFR (MDRD) Non-Af BUN/Creatinine Ratio Glucose Lactic Acid Calcium Troponin I C-React Prot High Sens Urine Color Urine Clarity Urine pH Ur Specific [place] Urine Protein Urine Glucose (UA) Urine Ketones Urine Occult Blood Urine Nitrite Urine Bilirubin Urine Urobilinogen Ur Leukocyte Esterase Urine RBC Urine WBC Ur Squamous Epith Cells Urine Bacteria Urine Mucus Blood Type O POSITIVE Antibody Screen NEGATIVE Crossmatch See Detail 09/29/18 09/30/18 09/30/18 21:15 04:35 04:35 WBC 13.0 H RBC 2.93 L Hgb 7.9 L 7.7 L Hct 25.1 L 25.1 L MCV 85.7 MCH 26.3 L MCHC 30.7 L RDW 17.5 H RDW Differential 54.9 H Plt Count 482 H MPV 9.6 Immature Gran % (Auto) 0.300 Neut % (Auto) 84.3 H Lymph % (Auto) 8.3 L [place] % (Auto) 6.4 Eos % (Auto) 0.6 Baso % (Auto) 0.1 Absolute Neuts (auto) 11.0 H Absolute Lymphs (auto) 1.08 Total Counted Not Reportable Sodium 146 H Potassium 3.9 Chloride 115 H Carbon Dioxide 23.0 Anion Gap 8 BUN 33 H Creatinine 0.92 Estim Creat Clear Calc 70.86 Est GFR (MDRD) Af Amer 102 Est GFR (MDRD) Non-Af 85 BUN/Creatinine Ratio 35.8 H Glucose 99 Lactic Acid Calcium 8.5 Troponin I C-React Prot High Sens Urine Color Urine Clarity Urine pH Ur Specific [place] Urine Protein Urine Glucose (UA) Urine Ketones Urine Occult Blood Urine Nitrite Urine Bilirubin Urine Urobilinogen Ur Leukocyte Esterase Urine RBC Urine WBC Ur Squamous Epith Cells Urine Bacteria Urine Mucus Blood Type Antibody Screen Crossmatch Microbiology 09/29/18 02:40 Ulcer, Decubitus - Leg, Left Gram Stain - Final 09/29/18 02:40 Ulcer, Decubitus - Leg, Left Gram Stain - Final Clinical Impression(s) from Imaging Studies Foot X-Ray 09/29/18 09:01 IMPRESSION: Periosteal thickening in the anterior tibia may be related to venous stasis or chronic infection. Clinical correlation recommended. Nonspecific lucencies in the soft tissues as described may represent ulceration. Clinical correlation recommended. If further evaluation is warranted, MRI can be obtained. Electronically Signed: Gavino Gonzales, at 11:11 EST Tel , Service support , Tibia/Fibula X-Ray 09/29/18 09:01 IMPRESSION: Irregularity in the cortex and adjacent soft tissues of the mid to distal tibia and fibula, may represent an infectious process. MRI may be helpful for further evaluation. Electronically Signed: Gavino Gonzales, at 11:14 EST Tel , Service support , Medical Necessity - Tobacco Use Smoking Status: Former smoker Tobacco Use: Cigarettes Assessment/Plan All Active Problems Septic shock (Acute) Syncope (Acute) Cellulitis of leg without foot, left (Acute) RECOMMENDATIONS: 1. Okay to advance diet as tolerated 2. No central line placement 3. Tinea vancomycin and meropenem until culture data available 4. Okay to transfer from the intensive care unit from my perspective 5. Increase activity as tolerated 6. Obtain old records from [facility] IMPRESSIONS: 1. Septic shock secondary to left lower extremity osteomyelitis Patient with chronic wounds of the left lower extremity. Previous cultures have shown Sheryl cepacia with intermediate resistance to Zosyn and MRSA. Patient will be placed on vancomycin. Zosyn will be transitioned to meropenem for better susceptibility. Repeat cultures are currently pending. Wound center has been consulted for possible need of intervention and possible amputation. Patient did not have a central line placed overnight. There is likely no indication at this time. 2. Acute kidney injury RESOLVED> likely prerenal etiology secondary to #1. Patient has improved following aggressive resuscitation. We will continue to monitor. Urine output appears to be appropriate. Lisinopril has been appropriately held secondary to hypotension and acute kidney injury. No indication for renal replacement therapy at this time. 3. Possible acute blood loss anemia Patient with significant anemia on morning labs. Hemoglobin is relatively stable after transfusion. This could be worked up as an outpatient. Patient may have an element of bone marrow suppression secondary to osteomyelitis. 4. A. fib with RVR Patient has a history of chronic A. fib. There has been some improvement following hydration. Carvedilol has been held secondary to #1. Anticoagulation will be held secondary to a possible need for intervention. This likely will be held given need for possible amputation of left lower extremity 5. Advanced age/syncope/hypertension Complicates care, management, recovery and prognosis. Antihypertensive medications have been held. Patient is a full code Code Visit Inpatient E&M: 16794 Subs Hosp L3
--- NOTE | 2018-09-30 07:40 | PCM.RX.CS ---
Consult Pharmacy has been consulted to manage selected antiobiotic: Vancomycin Type of Consult: Follow-up Suspected Infection: Sepsis, Osteomyelitis Prior Doses of Antibiotics Received/Current Regimen: Currently on vancomycin 1000mg IV q24h with the last dose received 09/29/18 at 21:45 Labs: Sodium 146 mmol/L (136-145) H 09/30/18 04:35 Potassium 3.9 mmol/L (3.5-5.1) 09/30/18 04:35 Chloride 115 mmol/L (98-107) H 09/30/18 04:35 Carbon Dioxide 23.0 mmol/L (21.0-32.0) 09/30/18 04:35 Anion Gap 8 (5-15) 09/30/18 04:35 BUN 33 mg/dL (7-18) H 09/30/18 04:35 Creatinine 0.92 mg/dL (0.70-1.30) 09/30/18 04:35 Est GFR (MDRD) Af Amer 102 mL/min (>60) 09/30/18 04:35 Est GFR (MDRD) Non-Af 85 mL/min (>60) 09/30/18 04:35 BUN/Creatinine Ratio 35.8 RATIO (10-20) H 09/30/18 04:35 Glucose 99 mg/dL (74-106) 09/30/18 04:35 Microbiology: Microbiology 09/29/18 02:40 Ulcer, Decubitus - Leg, Left Gram Stain - Final 09/29/18 02:40 Ulcer, Decubitus - Leg, Left Gram Stain - Final Weight used for dosin.3 kg Estimated Creatinine Clearance: 71 ml/min Goal Trough: 15-20 mcg/mL Pharmacy Plan for Drug Dosing: Patient's renal function has improved significantly from CrCl of 29.9 ml/min on 09/28/18 to 71 ml/min today so the vancomycin dose will be increased to 1000mg IV q12h. A trough will still be obtained before tonight's dose. Pharmacy Service will continue to monitor and adjust dosing as required. Follow-Up Labs: Trough Vancomycin Labs to be done on [date and time ordered]: 09/30/18 at 21:30
[2018-09-30] MEDS: Acetaminophen 325 MG Tablet 650 MG PO ×2 (08:03→19:46)
[2018-09-30] MEDS: Aspirin E.C. 81 MG Tablet PO (09:24)
--- NOTE | 2018-09-30 10:34 | CON.PCM_ITS ---
Reason for Consult Date of Consultation: 09/30/18 Reason for Consultation: LLE ulcer History of Present Illness: The patient is a 78 year old M [with extensive history of treatment for LLE ulcer by the wound center. He saw my partner, Dr. Grier, in the fall and a plan was made for AKA. He has had vascular studies and multiple procedures with Dr. Maloney. Was brought into [facility] this weekend with sepsis which is resolving on antibiotics. At the time of my consultation, the patient was comfortable, eating breakfast and his was with him at the bedside. 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) 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) Venous insufficiency (Chronic) CKD (chronic kidney disease) stage 3, GFR 30-59 ml/min (Chronic) Anemia (Chronic) 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) Delayed wound healing (Chronic) Nonischemic cardiomyopathy (Chronic) Chronic systolic CHF (congestive heart failure) (Chronic) Chronic atrial fibrillation (Chronic) Bilateral edema of lower extremity (Chronic) Open wounds involving multiple regions of lower extremity (Chronic) Neuropathic pain, leg, 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 [Ecotrin] 81 mg PO DAILY@0800 11/06/15 Apixaban [Eliquis] 5 mg PO BID 05/24/17 Carvedilol [Coreg (Beta Min)] 12.5 mg PO BID 05/24/17 Lisinopril [Zestril] 10 mg PO DAILY tablet 03/07/18 Nutritional Supplement [[place] - 1 packet PO BID #60 packet 03/07/18 [place]LAV[place]] traMADol [Ultram (G)] 50 mg PO Q6H PRN PRN 09/28/18 Furosemide [Lasix] 40 mg PO DAILY 09/29/18 Spironolactone 25 mg PO BID 09/29/18 Surgical History: appendectomy, herniorrhaphy, - - Hand surgery Psychiatric History: No pertinent psych hx Smoking Status: Former smoker Tobacco Use: Cigarettes - *Family History Maternal History Items: Dementia Paternal History Items: - - venous ulcers Patient Problems: Active and Suspected Problems Septic shock (Acute) Syncope (Acute) - Physical Exam General: Alert, Oriented x3, No apparent distress, - - Quite talkative Extremities: Tenderness - LLE. Ulcer on Left leg coverred with dressing which I did not take down. Left knee and exposed skin below the knee is warm and non- infected appearing. Musculoskeletal: Tenderness - Left foot shows chronic atrophic changes, pulses are non-palpable Neurological: Cranial nerves II-XII grossly intact, Neuro grossly intact Comment: xray of left leg reviewed. He appears to have osteomyelitis of lower tibia Vital Signs Temp Pulse Resp BP Pulse Ox 98.8 F 92 19 H 102/63 98 09/30/18 09:00 09/30/18 09:00 09/30/18 09:00 09/30/18 09:00 09/30/18 09:00 Oxygen Flow Rate (L/min) 2 Oxygen Delivery Method Room Air Weight: 177 lb 0.499 oz Body Mass Index (BMI) 21.5 Intake and Output for Last 24 Hours 09/28/18 09/29/18 09/30/18 23:59 23:59 23:59 Intake Total 958 / 958 4656.7 / 4656.7 529.6 / 529.6 Output Total 2500 / 2500 850 / 850 Balance 958 / 958 2156.7 / 2156.7 -320.4 / -320.4 Microbiology Past 72 Hours 09/29/18 02:40 Gram Stain - Final Ulcer, Decubitus - Leg, Left 09/29/18 02:40 Gram Stain - Final Ulcer, Decubitus - Leg, Left Laboratory Tests Past 24 Hrs 09/29/18 09/29/18 09/30/18 09:35 21:15 04:35 WBC 13.0 H RBC 2.93 L Hgb 7.9 L 7.7 L Hct 25.1 L 25.1 L MCV 85.7 MCH 26.3 L MCHC 30.7 L RDW 17.5 H RDW Differential 54.9 H Plt Count 482 H MPV 9.6 Immature Gran % (Auto) 0.300 Neut % (Auto) 84.3 H Lymph % (Auto) 8.3 L [place] % (Auto) 6.4 Eos % (Auto) 0.6 Baso % (Auto) 0.1 Absolute Neuts (auto) 11.0 H Absolute Lymphs (auto) 1.08 Total Counted Not Reportable Sodium Potassium Chloride Carbon Dioxide Anion Gap BUN Creatinine Estim Creat Clear Calc Est GFR (MDRD) Af Amer Est GFR (MDRD) Non-Af BUN/Creatinine Ratio Glucose Calcium Blood Type O POSITIVE Antibody Screen NEGATIVE Crossmatch See Detail 09/30/18 04:35 WBC RBC Hgb Hct MCV MCH MCHC RDW RDW Differential Plt Count MPV Immature Gran % (Auto) Neut % (Auto) Lymph % (Auto) [place] % (Auto) Eos % (Auto) Baso % (Auto) Absolute Neuts (auto) Absolute Lymphs (auto) Total Counted Sodium 146 H Potassium 3.9 Chloride 115 H Carbon Dioxide 23.0 Anion Gap 8 BUN 33 H Creatinine 0.92 Estim Creat Clear Calc 70.86 Est GFR (MDRD) Af Amer 102 Est GFR (MDRD) Non-Af 85 BUN/Creatinine Ratio 35.8 H Glucose 99 Calcium 8.5 Blood Type Antibody Screen Crossmatch Assessment/Plan All Active Problems Septic shock (Acute) Syncope (Acute) Cellulitis of leg without foot, left (Acute) Osteomyelitis left diaphyseal and lower tibia with chronic, non-healing ulcer despite valiant efforts by the patient and the wound care center. I think this patient will need an amputation to resolve this problem. I would like to see the definitive results of vascular studies to determine if he will support healing of a BKA or if an AKA would be more appropriate. He has already discussed an AKA with Dr. Grier. I will discuss case with Dr. Grier upon his return from vacation and we will make a definitive plan within the next 2 weeks. Patient does not appear to be in septic shock at this time, so an emergent amputation does not appear to be necessary. Case discussed with Dr. Amador who agrees with this plan. 1.5 hours spent with patient his family, discussing case with other consultants and on chart review.
--- NOTE | 2018-09-30 10:46 | PCM.PROGNOTE ---
Patient Problems: Active and Suspected Problems Septic shock (Acute) Syncope (Acute) Subjective: Chief complaint: Follow-up after admission for syncopal episode, septic shock secondary to suspected osteomyelitis of the left leg/nonhealing infected ulcer/wound of the left leg with extensive necrotic tissue, exposed bone, muscles or tendons, also found to have acute kidney injury. Patient seen and examined. No acute events overnight. Today, is feeling much better. Left leg pain is manageable. Denies chest pain or shortness of breath. His blood pressure has been improving. He has been off IV Levophed drip since 2 AM this morning. Other vital signs are stable, afebrile. - Physical Exam General: Alert, Oriented x3, Cooperative, No apparent distress HEENT: Atraumatic, PERRLA, EOMI, Normocephalic Oral: Moist Mucosa, No Gingival or Mucosal Lesions/ Ulcerations Neck: Supple, No JVD, Negative Carotid Bruits, Trachea Midline, Thyroid Normal Size and Texture Lungs: Clear to auscultation, No rhonchi, Diminished Cardiovascular: Regular rate, Regular Rhythm, Normal S1, Normal S2, PMI Normal Abdomen: Bowel Sounds Present, Soft, Non Tender, Non-Distended, No Hepato-splenomegaly Extremities: No clubbing, No cyanosis, Edema - Trace edema. Skin: No rashes, Ulcer/ Wound, - - Left leg: Large wound on the anterior aspect of the left leg extending from mid left foot up to the upper one third of the left tibia, size is about 40 cm x 10 cm with exposed bone, tendons and muscles, necrotic tissue with gangrene. There is another wound on the dorsal aspect of the left leg measuring about 10 x 4 cm. Lymphatic: No Cervical, Supraclavicular, or Inguinal Adenopathy Neurological: Cranial nerves II-XII grossly intact, Neuro grossly intact Psych/Mental Status: Normal Affect, Appropriate, Alert and oriented to time, place, person, mood and affect Vital Signs Temp Pulse Resp BP Pulse Ox 98.8 F 92 19 H 102/63 98 09/30/18 09:00 09/30/18 09:00 09/30/18 09:00 09/30/18 09:00 09/30/18 09:00 Oxygen Flow Rate (L/min) 2 Oxygen Delivery Method Room Air Weight: 177 lb 0.499 oz Body Mass Index (BMI) 21.5 Intake and Output for Last 24 Hours 09/28/18 09/29/18 09/30/18 23:59 23:59 23:59 Intake Total 958 / 958 4656.7 / 4656.7 529.6 / 529.6 Output Total 2500 / 2500 850 / 850 Balance 958 / 958 2156.7 / 2156.7 -320.4 / -320.4 Microbiology Past 72 Hours 09/29/18 02:40 Gram Stain - Final Ulcer, Decubitus - Leg, Left 09/29/18 02:40 Gram Stain - Final Ulcer, Decubitus - Leg, Left Laboratory Tests Past 24 Hrs 09/29/18 09/29/18 09/30/18 09:35 21:15 04:35 WBC 13.0 H RBC 2.93 L Hgb 7.9 L 7.7 L Hct 25.1 L 25.1 L MCV 85.7 MCH 26.3 L MCHC 30.7 L RDW 17.5 H RDW Differential 54.9 H Plt Count 482 H MPV 9.6 Immature Gran % (Auto) 0.300 Neut % (Auto) 84.3 H Lymph % (Auto) 8.3 L [place] % (Auto) 6.4 Eos % (Auto) 0.6 Baso % (Auto) 0.1 Absolute Neuts (auto) 11.0 H Absolute Lymphs (auto) 1.08 Total Counted Not Reportable Sodium Potassium Chloride Carbon Dioxide Anion Gap BUN Creatinine Estim Creat Clear Calc Est GFR (MDRD) Af Amer Est GFR (MDRD) Non-Af BUN/Creatinine Ratio Glucose Calcium Blood Type O POSITIVE Antibody Screen NEGATIVE Crossmatch See Detail 09/30/18 04:35 WBC RBC Hgb Hct MCV MCH MCHC RDW RDW Differential Plt Count MPV Immature Gran % (Auto) Neut % (Auto) Lymph % (Auto) [place] % (Auto) Eos % (Auto) Baso % (Auto) Absolute Neuts (auto) Absolute Lymphs (auto) Total Counted Sodium 146 H Potassium 3.9 Chloride 115 H Carbon Dioxide 23.0 Anion Gap 8 BUN 33 H Creatinine 0.92 Estim Creat Clear Calc 70.86 Est GFR (MDRD) Af Amer 102 Est GFR (MDRD) Non-Af 85 BUN/Creatinine Ratio 35.8 H Glucose 99 Calcium 8.5 Blood Type Antibody Screen Crossmatch Medical Necessity - Tobacco Use Smoking Status: Former smoker Tobacco Use: Cigarettes Assessment/Plan All Active Problems Septic shock (Acute) Syncope (Acute) Cellulitis of leg without foot, left (Acute) This is a 78 years old male patient presented to the medicine because of syncopal episode, found to have septic shock secondary to nonhealing infected large ulcer of the left leg with osteomyelitis of the left tibia with extensive necrotic tissue and gangrene in context of history of severe peripheral vascular disease and also found to have acute on chronic anemia and acute kidney injury. #1 septic shock: Secondary to osteomyelitis of the left leg/tibia with infected large left leg ulcer/wound, necrosis and gangrene as well. Vital signs are stabilized, blood pressure improved. He has been off Levophed drip since 2 AM this morning. Normally, his systolic blood pressure is around 90s. He is on IV meropenem and vancomycin. Blood and wound cultures are pending. Plan to transfer to PCU, continue same treatment. #2 nonhealing infected left leg large wound/ulcer, osteomyelitis of the left tibia/extensive necrotic tissue and gangrene: In context of history of severe peripheral vascular disease. He is on IV vancomycin and meropenem as above. Blood pressure stabilized, has been afebrile, white blood cell count is trending down. After discussion with podiatry medicine, will recommended patient to go for left leg amputation. Orthopedic surgery consulted and Dr. Gaspar recommended to have definitive results of the vascular studies to determine if the patient will need above or below-knee amputation and he stated that he would discuss the case with Dr. Grier when he comes back and then will have a definitive plan within 2 weeks. At this time, no plan for amputation. Patient had venous Doppler of the bilateral lower extremities on June, that revealed moderate arterial occlusive disease of the right leg as well as moderate arterial disease of the left lower extremity with PEREZ of 0.49. Plan to continue same treatment, will discuss with podiatry about possible need for debridement of recommended. #3 acute on chronic anemia: Baseline hemoglobin has been around 9-12 g/dL. At this time, no evidence of active bleeding. Today's hemoglobin is 7.7 g/dL after transfusion of 2 units of packed RBCs. Plan to transfuse another unit of packed RBCs, repeat CBC tomorrow morning. #4 acute kidney injury: Baseline creatinine has been normal. It is likely due to ATN secondary to septic shock and hypoperfusion. Admission creatinine was 2.18, came down to 0.9 to on IV fluids and vasopressors, improved. Plan to encourage oral intake, DC IV fluids. #5 A. fib with RVR: Heart rate improved, has been around 90-100. Plan to resume Coreg for rate control, resume Eliquis for anticoagulation. #5 chronic systolic CHF/nonischemic cardiomyopathy: Remained clinically stable, compensated at this time. He had 2D echocardiogram back on July, and showed ejection fraction of 50-55%. Plan to resume Coreg, Lasix and keep holding lisinopril and Aldactone. #6 hypertension: Blood pressure improved, has been off IV Levophed drip since 2 AM this morning. Plan to resume Coreg. #7 DVT prophylaxis: Resume Eliquis. This note was generated with [employer] dictation software. It may contain incorrect words, spelling, and punctuation that were not noted in checking the note before signing. Code Visit Inpatient E&M: 34715 Subs Hosp L2
[2018-09-30] MEDS: Vancomycin IV 1,000 MG/200 ML BAG 200 MG IV ×2 (10:58→22:24)
[2018-09-30] MEDS: 0.9% NaCl Peripheral Flush Adult/Peds IV (11:05)
--- NOTE | 2018-09-30 13:14 | PCM.PROGNOTE ---
Patient Problems: Active and Suspected Problems Septic shock (Acute) Syncope (Acute) Subjective: This 78 year old male patient was seen resting in his bed early this afternoon again today for evaluation of his ulcers to left lower extremity as well as dressing change. Patient is up in bed resting comfortably. He is much more alert today and telling stories and joking around. He says he feels better overall today as well. He denies any feelings of nausea, vomiting, fever, or chills. - Physical Exam General: Alert, Oriented x3, Cooperative, No apparent distress Extremities: Capillary Refill Less than 3 Seconds, Diminished Peripheral Pulses - DP and PT pulses nonpalpable to the left side, Edema, Tenderness - With manipulation of ulcer sites Skin: Ulcer/ Wound - Each ulcer site remains relatively stable since yesterday. Ulcer to anterior left lower leg measures approximately 30 cm x 15 cm. Ulcer to anterior lower leg extends from mid lower leg down to proximal foot. There is necrotic bone to the tibial crest as well as to the dorsal medial foot. There is also exposed and devitalized tendon with eschar noted throughout the ulcer site. There is malodor noted as well as some serosanguineous drainage. No thick purulence appreciated and no streaking or extending cellulitis. There is some slight surrounding erythema to the ulcer site. Ulcer to the posterior left lower leg measures approximately 10 cm x 6 cm and the base is noted to have a mixture of granular and fibrous tissue with a few necrotic/eschar areas as well. No purulence or extending or streaking cellulitis noted to this area either. Musculoskeletal: Tenderness - With manipulation of ulcer site Neurological: - - Lack of normal epicritic sensation light touch left lower extremity Psych/Mental Status: Normal Affect, Appropriate Vital Signs Temp Pulse Resp BP Pulse Ox 98.2 F 108 H 18 106/71 94 09/30/18 13:05 09/30/18 13:05 09/30/18 13:05 09/30/18 13:05 09/30/18 13:05 Oxygen Flow Rate (L/min) 2 Oxygen Delivery Method Room Air Weight: 80.3 kg Body Mass Index (BMI) 21.5 Intake and Output for Last 24 Hours 09/28/18 09/29/18 09/30/18 23:59 23:59 23:59 Intake Total 958 / 958 4656.7 / 4656.7 529.6 / 529.6 Output Total 2500 / 2500 850 / 850 Balance 958 / 958 2156.7 / 2156.7 -320.4 / -320.4 Microbiology Past 72 Hours 09/29/18 02:40 Gram Stain - Final Ulcer, Decubitus - Leg, Left Wound Culture - Preliminary GNR Poss Pseudomonas sp Gram positive organism 09/29/18 02:40 Gram Stain - Final Ulcer, Decubitus - Leg, Left Wound Culture - Preliminary GNR Poss Pseudomonas sp Gram positive organism Laboratory Tests Past 24 Hrs 09/29/18 09/29/18 09/29/18 09:35 09:35 21:15 WBC RBC Hgb 7.9 L Hct 25.1 L MCV MCH MCHC RDW RDW Differential Plt Count MPV Immature Gran % (Auto) Neut % (Auto) Lymph % (Auto) [place] % (Auto) Eos % (Auto) Baso % (Auto) Absolute Neuts (auto) Absolute Lymphs (auto) Total Counted Sodium Potassium Chloride Carbon Dioxide Anion Gap BUN Creatinine Estim Creat Clear Calc Est GFR (MDRD) Af Amer Est GFR (MDRD) Non-Af BUN/Creatinine Ratio Glucose Calcium Blood Type O POSITIVE Antibody Screen NEGATIVE Crossmatch See Detail See Detail 09/30/18 09/30/18 04:35 04:35 WBC 13.0 H RBC 2.93 L Hgb 7.7 L Hct 25.1 L MCV 85.7 MCH 26.3 L MCHC 30.7 L RDW 17.5 H RDW Differential 54.9 H Plt Count 482 H MPV 9.6 Immature Gran % (Auto) 0.300 Neut % (Auto) 84.3 H Lymph % (Auto) 8.3 L [place] % (Auto) 6.4 Eos % (Auto) 0.6 Baso % (Auto) 0.1 Absolute Neuts (auto) 11.0 H Absolute Lymphs (auto) 1.08 Total Counted Not Reportable Sodium 146 H Potassium 3.9 Chloride 115 H Carbon Dioxide 23.0 Anion Gap 8 BUN 33 H Creatinine 0.92 Estim Creat Clear Calc 70.86 Est GFR (MDRD) Af Amer 102 Est GFR (MDRD) Non-Af 85 BUN/Creatinine Ratio 35.8 H Glucose 99 Calcium 8.5 Blood Type Antibody Screen Crossmatch Medical Necessity - Tobacco Use Smoking Status: Former smoker Tobacco Use: Cigarettes Assessment/Plan All Active Problems Septic shock (Acute) Syncope (Acute) Cellulitis of leg without foot, left (Acute) Osteomyelitis Left Lower Leg (tibia) Ulcer of left lower extremity with necrosis muscle/tendon/bone Ulcer left lower extremity with fat layer exposed PVD Venous insufficiency Delayed wound healing Patient was carefully examined and evaluated bedside again today. Ulcer sites were carefully examined. Patient is currently afebrile and vital signs are currently stable. Blood pressure improved since yesterday. Patient's white count id down to 13 today. Description of ulcer sites can be noted above. Very light manual debridement was performed again today to reamove any loosened/necrotic areas. Once complete the area was carefully cleansed with sterile saline and then dressed with betadine soaked 4x4s, dry 4x4s, and kerlix in order to prevent further tendon deterioration and liquefication. Patient is to keep these areas offloaded at all times. His most recent non invasive vascular studies demonstrate monophasic DP and PT waveforms as well as right PEREZ of 0.56 an left PEREZ of 0.49. I continue to recommend either a below or above knee amputation by ortho, as there does not appear to be hope of salvaging his left lower leg, even if sufficient blood supply was returned to this area. Dr. Gaspar saw this patient today as well and agrees that this patient needs either a below or above knee amputation. His note states that he does not feel this patient is in septic shock at this time and does not believe his left lower leg needs to be amputated emergently. He states he would like to get further blood flow studies completed as well as discuss the case with his partner, Dr. Grier, before the final plan is in place. He anticipates the amputation happening within the next 1 or 2 weeks. I discussed this again today with the patient and he is still on board with this plan for amputation. Blood cultures still pending. Preliminary wound culture results are showing gnr poss psuedomonas as well as gram positive organism. ID is on consult and will see this patient tomorrow. This patient will require daily dressing changes as noted above. If he is discharged from the hospital prior to having his amputation, he is to follow up with regularly scheduled wound center appointments until ortho is ready to amputate. Podiatry will continue to follow this patient while in house as needed for ulcer evaluation and dressing changes. Please contact with any questions.
[2018-09-30] MEDS: Carvedilol 12.5 MG Tablet PO (21:12)
--- NOTE | 2018-09-30 22:28 | PCM.RX.CS ---
Consult Pharmacy has been consulted to manage selected antiobiotic: Vancomycin Type of Consult: Follow-up Suspected Infection: Sepsis Prior Doses of Antibiotics Received/Current Regimen: Medications Vancomycin HCl (Vancomycin) 1,000 mg in 200 mls @ 200 mls/hr IV Q12H HALEY Last Admin: 09/30/18 22:24 Dose: 200 mls/hr Labs: Sodium 146 mmol/L (136-145) H 09/30/18 04:35 Potassium 3.9 mmol/L (3.5-5.1) 09/30/18 04:35 Chloride 115 mmol/L (98-107) H 09/30/18 04:35 Carbon Dioxide 23.0 mmol/L (21.0-32.0) 09/30/18 04:35 Anion Gap 8 (5-15) 09/30/18 04:35 BUN 33 mg/dL (7-18) H 09/30/18 04:35 Creatinine 0.92 mg/dL (0.70-1.30) 09/30/18 04:35 Est GFR (MDRD) Af Amer 102 mL/min (>60) 09/30/18 04:35 Est GFR (MDRD) Non-Af 85 mL/min (>60) 09/30/18 04:35 BUN/Creatinine Ratio 35.8 RATIO (10-20) H 09/30/18 04:35 Glucose 99 mg/dL (74-106) 09/30/18 04:35 Vancomycin Trough 16.0 ug/mL (5.0-15.0) H 09/30/18 21:15 Microbiology: Microbiology 09/29/18 02:40 Ulcer, Decubitus - Leg, Left Gram Stain - Final 09/29/18 02:40 Ulcer, Decubitus - Leg, Left Wound Culture - Preliminary GNR Poss Pseudomonas sp Gram positive organism 09/29/18 02:40 Ulcer, Decubitus - Leg, Left Gram Stain - Final 09/29/18 02:40 Ulcer, Decubitus - Leg, Left Wound Culture - Preliminary GNR Poss Pseudomonas sp Gram positive organism Weight used for dosin.3 kg Estimated Creatinine Clearance: 71 Goal Trough: 15-20 mcg/mL Pharmacy Plan for Drug Dosing: Trough level received of 16.0, within target range of 15-20. Will continue dose at 1000mg IV q12h and redraw trough 10/02/18. Pharmacy Service will continue to monitor and adjust dosing as required. Follow-Up Labs: Trough Vancomycin Labs to be done on [date and time ordered]: 10/02/18 @8149
[2018-10-01] VITALS (8 sets, daily range): BP systolic 82–101; BP diastolic 58–68; PULSE 85–109; RESP 14–20; TEMP 37.3–37.6; O2SAT 95–98
[2018-10-01 04:14] LABS: Absolute Lymphocyte Count 0.91 X10^3/ul (0.83-4.51); Absolute Neutrophil Count 8.2 X10^3/uL (2.0-7.7); Basophil# 0.02 X10^3/uL; Basophil% 0.2 % (0-1); Eosinophil# 0.24 X10^3/uL; Eosinophils% 2.4 % (0-5); Hematocrit 30.8 % (40-54); Hemoglobin 9.5 g/dl (13.0-16.5); Lymphocyte # 0.91 X10^3/ul (4.0); Mean Corp Hgb Conc 30.8 g/gl (32-36); Mean Corpuscular Hgb 26.6 pg (27.0-32.0); Mean Corpuscular Volume 86.3 fL (80-94); Mean Platelet Vol. 9.5 fl (6.2-12.0); Monocyte# 0.74 X10^3/uL; Monocyte% 7.3 % (0-10); Neutrophil % 80.9 % (47-70); Platelet Count 437 K/mm3 (150-450); RBC Distribution Width CV 17.6 % (11.6-14.6); RBC Distribution Width SD 55.3 fl (35.1-43.9); Red Blood Count 3.57 M/mm3 (4.6-6.2); White Blood Count 10.1 K/mm3 (4.4-11.0)
[2018-10-01 04:21] LABS: POSITIVE COUNT NO; POSITIVE DIFFERENTIAL NO; POSITIVE MORPHOLOGY NO
[2018-10-01] MEDS: 0.9% NaCl Peripheral Flush Adult/Peds IV (05:33)
[2018-10-01] MEDS: Acetaminophen 325 MG Tablet 650 MG PO ×2 (05:48→13:25)
--- NOTE | 2018-10-01 07:02 | PCM.PN.INT ---
Subjective: The patient was seen and examined at the bedside this morning. Events from the last 24 hours have been reviewed. The patient is currently afebrile, hemodynamically stable and maintaining appropriate oxygen saturations on room air. The patient's Levophed has been off now for greater than 24 hours. Objective: The patient's most recent lab work, culture data and imaging studies have all been personally reviewed. Wound cultures dated September 29 were both positive for Pseudomonas. Blood cultures are pending. Surface echocardiogram dated 2014 revealed ejection fraction of 35%. Pulmonary artery systolic pressure was estimated to be 38 mmHg. General: Alert, Cooperative, No apparent distress HEENT: Atraumatic, PERRLA, Normocephalic Oral: No Gingival or Mucosal Lesions/ Ulcerations Neck: Supple, No Nodes, Trachea Midline Lungs: No rhonchi, No wheeze, No rales, Diminished Cardiovascular: Normal S1, Normal S2, No murmurs, Irregular Rate Abdomen: Bowel Sounds Present, Soft, Non Tender Extremities: No clubbing, No cyanosis, Edema Skin: - - Wrapped left lower extremity. Musculoskeletal: No Tenderness to Palpation of Joints or Extremities Lymphatic: No Cervical, Supraclavicular, or Inguinal Adenopathy Neurological: Neuro grossly intact Psych/Mental Status: Normal Affect, Appropriate Vital Signs Temp Pulse Resp BP Pulse Ox 37.6 C H 85 18 82/58 L 95 10/01/18 05:43 10/01/18 05:43 10/01/18 05:43 10/01/18 05:43 10/01/18 05:43 Oxygen Flow Rate (L/min) 2 Oxygen Delivery Method Room Air Weight: 180 lb 12.465 oz Body Mass Index (BMI) 21.5 Intake and Output for Last 24 Hours 09/29/18 09/30/18 10/01/18 23:59 23:59 23:59 Intake Total 4656.7 / 4656.7 2881.6 / 2881.6 480 / 480 Output Total 2500 / 2500 1600 / 1600 550 / 550 Balance 2156.7 / 2156.7 1281.6 / 1281.6 -70 / -70 Labs (Last 48 Hours) 09/29/18 09/29/18 09/29/18 06:39 06:39 08:15 WBC 13.3 H 15.4 H RBC 2.46 L 2.49 L Hgb 6.3 L 6.5 L Hct 20.7 L 21.4 L MCV 84.1 85.9 MCH 25.6 L 26.1 L MCHC 30.4 L 30.4 L RDW 17.6 H 17.4 H RDW Differential 54.2 H 52.0 H Plt Count 448 512 H MPV 9.7 10.5 Immature Gran % (Auto) Neut % (Auto) Lymph % (Auto) [place] % (Auto) Eos % (Auto) Baso % (Auto) Absolute Neuts (auto) Absolute Lymphs (auto) Total Counted Sodium 143 Potassium 4.0 Chloride 112 H Carbon Dioxide 23.0 Anion Gap 8 BUN 70 H Creatinine 1.51 H Estim Creat Clear Calc 43.17 Est GFR (MDRD) Af Amer 58 L Est GFR (MDRD) Non-Af 48 L BUN/Creatinine Ratio 46.4 H Glucose 115 H Calcium 8.0 L Vancomycin Trough Blood Type Antibody Screen Crossmatch 09/29/18 09/29/18 09/29/18 09:35 09:35 21:15 WBC RBC Hgb 7.9 L Hct 25.1 L MCV MCH MCHC RDW RDW Differential Plt Count MPV Immature Gran % (Auto) Neut % (Auto) Lymph % (Auto) [place] % (Auto) Eos % (Auto) Baso % (Auto) Absolute Neuts (auto) Absolute Lymphs (auto) Total Counted Sodium Potassium Chloride Carbon Dioxide Anion Gap BUN Creatinine Estim Creat Clear Calc Est GFR (MDRD) Af Amer Est GFR (MDRD) Non-Af BUN/Creatinine Ratio Glucose Calcium Vancomycin Trough Blood Type O POSITIVE Antibody Screen NEGATIVE Crossmatch See Detail See Detail 09/30/18 09/30/18 09/30/18 04:35 04:35 21:15 WBC 13.0 H RBC 2.93 L Hgb 7.7 L Hct 25.1 L MCV 85.7 MCH 26.3 L MCHC 30.7 L RDW 17.5 H RDW Differential 54.9 H Plt Count 482 H MPV 9.6 Immature Gran % (Auto) 0.300 Neut % (Auto) 84.3 H Lymph % (Auto) 8.3 L [place] % (Auto) 6.4 Eos % (Auto) 0.6 Baso % (Auto) 0.1 Absolute Neuts (auto) 11.0 H Absolute Lymphs (auto) 1.08 Total Counted Not Reportable Sodium 146 H Potassium 3.9 Chloride 115 H Carbon Dioxide 23.0 Anion Gap 8 BUN 33 H Creatinine 0.92 Estim Creat Clear Calc 70.86 Est GFR (MDRD) Af Amer 102 Est GFR (MDRD) Non-Af 85 BUN/Creatinine Ratio 35.8 H Glucose 99 Calcium 8.5 Vancomycin Trough 16.0 H Blood Type Antibody Screen Crossmatch 10/01/18 03:55 WBC 10.1 RBC 3.57 L Hgb 9.5 L Hct 30.8 L MCV 86.3 MCH 26.6 L MCHC 30.8 L RDW 17.6 H RDW Differential 55.3 H Plt Count 437 MPV 9.5 Immature Gran % (Auto) 0.200 Neut % (Auto) 80.9 H Lymph % (Auto) 9.0 L [place] % (Auto) 7.3 Eos % (Auto) 2.4 Baso % (Auto) 0.2 Absolute Neuts (auto) 8.2 H Absolute Lymphs (auto) 0.91 Total Counted Not Reportable Sodium Potassium Chloride Carbon Dioxide Anion Gap BUN Creatinine Estim Creat Clear Calc Est GFR (MDRD) Af Amer Est GFR (MDRD) Non-Af BUN/Creatinine Ratio Glucose Calcium Vancomycin Trough Blood Type Antibody Screen Crossmatch Microbiology 09/29/18 02:40 Ulcer, Decubitus - Leg, Left Gram Stain - Final 09/29/18 02:40 Ulcer, Decubitus - Leg, Left Wound Culture - Preliminary GNR Poss Pseudomonas sp Gram positive organism 09/29/18 02:40 Ulcer, Decubitus - Leg, Left Gram Stain - Final 09/29/18 02:40 Ulcer, Decubitus - Leg, Left Wound Culture - Preliminary GNR Poss Pseudomonas sp Gram positive organism Clinical Impression(s) from Imaging Studies Chest X-Ray 09/28/18 19:11 IMPRESSION: Degenerative changes, as described above. No demonstrated acute cardiopulmonary process. Electronically Signed: Ronaldo Romo MD at 20:13 EST Tel , Service support , Foot X-Ray 09/29/18 09:01 IMPRESSION: Periosteal thickening in the anterior tibia may be related to venous stasis or chronic infection. Clinical correlation recommended. Nonspecific lucencies in the soft tissues as described may represent ulceration. Clinical correlation recommended. If further evaluation is warranted, MRI can be obtained. Electronically Signed: Gavino Gonzales, at 11:11 EST Tel , Service support , Tibia/Fibula X-Ray 09/29/18 09:01 IMPRESSION: Irregularity in the cortex and adjacent soft tissues of the mid to distal tibia and fibula, may represent an infectious process. MRI may be helpful for further evaluation. Electronically Signed: Gavino Gonzales, at 11:14 EST Tel , Service support , Medical Necessity - Tobacco Use Smoking Status: Former smoker Tobacco Use: Cigarettes Assessment/Plan All Active Problems Septic shock (Acute) Syncope (Acute) Cellulitis of leg without foot, left (Acute) RECOMMENDATIONS: 1. Continue antibiotics per infectious diseases recommendations. 2. Encourage incentive spirometer use while in bed 3. Mobilize patient as tolerated. IMPRESSIONS: 1. Septic shock secondary to left lower extremity osteomyelitis Continue antibiotics per infectious diseases recommendations. The patient remains hemodynamically stable. Continue local wound care with tentative plans for surgical intervention in the very near future. 2. Acute kidney injury Resolved. Likely secondary to hemodynamic stability in the setting #1. Continue to monitor urine output. No indication for renal replacement therapy. 3. Normocytic anemia The patient has received 3 units of packed red blood cells to date. Blood counts remained stable. Continue to check H&H daily with plans to transfuse if hemoglobin drops below 7 g/dL. 4. Atrial fibrillation with rapid ventricular rate/history of systolic heart failure The patient has a history of chronic atrial fibrillation. We will continue beta-sumanth therapy as ordered. Eliquis is currently on hold. 5. Advanced age/syncope/hypertension Complicates care, management, recovery and prognosis. Physical therapy to work with patient. This note was generated with [employer] software. It may contain incorrect words, spelling, and punctuation that were not noted in checking the note before signing. Code Visit Inpatient E&M: 70754 Subs Hosp L3
[2018-10-01] MEDS: Aspirin E.C. 81 MG Tablet PO (08:30)
[2018-10-01] MEDS: Carvedilol 12.5 MG Tablet PO (08:35)
[2018-10-01] MEDS: Ciprofloxacin 500 MG Tablet PO (10:48)
--- NOTE | 2018-10-01 13:51 | PCM.HP.ID ---
Problem List (1) Septic shock Status: Acute Reason for Consult: septic shock Consulted by: Dr. Block History of Present Illness: The patient is a 78 year old M with PAD and recurrent LLE infection and osteo, past cxs with MRSA, PsA, burkholderia, strep, propionibacteria, and others. Had been stable off abx for a while, following at wound care, but worsening wound with necrosis and drainage. Over past few days, started feeling worse and had syncopal episode 09/28. Taken to ED, found to be in septic shock, admitted to icu on pressors. Started on vanc/zosyn, then meropenem, then changed to po cipro this AM. Wound cx with GPR and PsA. Feeling better, off pressors. Full ROS performed and neg except as noted above. - Medical History Past Medical History (Chronic Problems): Chronic Problems Osteomyelitis of left tibia (Chronic) Ulcer of left lower extremity with fat layer exposed (Chronic) Ulcer of left lower extremity with necrosis of bone (Chronic) 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) Venous insufficiency (Chronic) CKD (chronic kidney disease) stage 3, GFR 30-59 ml/min (Chronic) Anemia (Chronic) 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) Delayed wound healing (Chronic) Nonischemic cardiomyopathy (Chronic) Chronic systolic CHF (congestive heart failure) (Chronic) Chronic atrial fibrillation (Chronic) Bilateral edema of lower extremity (Chronic) Open wounds involving multiple regions of lower extremity (Chronic) Neuropathic pain, leg, 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 [Ecotrin] 81 mg PO DAILY@0800 11/06/15 Apixaban [Eliquis] 5 mg PO BID 05/24/17 Carvedilol [Coreg (Beta Min)] 12.5 mg PO BID 05/24/17 Lisinopril [Zestril] 10 mg PO DAILY tablet 03/07/18 Nutritional Supplement [[place] - 1 packet PO BID #60 packet 03/07/18 [place] FLAVOR] traMADol [Ultram (G)] 50 mg PO Q6H PRN PRN 09/28/18 Furosemide [Lasix] 40 mg PO DAILY 09/29/18 Spironolactone 25 mg PO BID 09/29/18 - Social History SMOKING STATUS:: Former smoker Vital Signs Temp Pulse Resp BP Pulse Ox 99.1 F 109 H 15 101/68 98 10/01/18 08:32 10/01/18 11:32 10/01/18 08:32 10/01/18 08:32 10/01/18 08:32 Oxygen Flow Rate (L/min) 2 Oxygen Delivery Method Room Air Weight: 82 kg Body Mass Index (BMI) 21.5 Microbiology Past 72 Hours 09/29/18 02:40 Gram Stain - Final Ulcer, Decubitus - Leg, Left Wound Culture - Final Pseudomonas aeroginosa Gram positive rito Anaerobic Culture - Preliminary Checking for anaerobes, further studies to follow. 09/29/18 02:40 Gram Stain - Final Ulcer, Decubitus - Leg, Left Wound Culture - Final Pseudomonas aeroginosa Gram positive rito Anaerobic Culture - Preliminary Checking for anaerobes, further studies to follow. 09/28/18 21:10 Blood Culture - Preliminary Blood Culture (Wb) - Right Wrist No growth in 48 hours. 09/28/18 19:35 Blood Culture - Preliminary Blood Culture (Wb) - Anticubital Left No growth in 48 hours. Laboratory Tests Past 24 Hrs 09/29/18 09/30/18 10/01/18 09:35 21:15 03:55 WBC 10.1 RBC 3.57 L Hgb 9.5 L Hct 30.8 L MCV 86.3 MCH 26.6 L MCHC 30.8 L RDW 17.6 H RDW Differential 55.3 H Plt Count 437 MPV 9.5 Immature Gran % (Auto) 0.200 Neut % (Auto) 80.9 H Lymph % (Auto) 9.0 L [place] % (Auto) 7.3 Eos % (Auto) 2.4 Baso % (Auto) 0.2 Absolute Neuts (auto) 8.2 H Absolute Lymphs (auto) 0.91 Total Counted Not Reportable Vancomycin Trough 16.0 H Crossmatch See Detail - Other Studies Radiology: [] reviewed Other Studies: [] Route of nutrition/ use of supplements: [] Nutritional Intake: [] IV Site: [] [place] Catheter: [] - Physical Exam General: Alert, Oriented x3, Cooperative, No apparent distress HEENT: Atraumatic, PERRLA, EOMI Neck: Supple, No Nodes Lungs: Clear to auscultation, Normal air movement Cardiovascular: No murmurs, Irregular Rate Abdomen: Soft, Non Tender, Non-Distended Extremities: No edema Skin: Ulcer/ Wound - LLE wrapped, per wound care large necrotic purulent ulcer with tendons exposed IV Site: Central Line, without redness Musculoskeletal: No Tenderness to Palpation of Joints or Extremities Neurological: Cranial nerves II-XII grossly intact - Assessment/Plan Antibiotics: [] Assessment/Plan: [] Active and Suspected Problems Septic shock (Acute) Syncope (Acute) Septic shock due to infected large necrotic LLE ulcer - wound cx with PsA and GPR. D/w wound care nurse. Given extent of the wound, long history of infection, and PAD, he wants to pursue amputation; I agree and I think this should be done in the near future to help with source control. BP low this AM off pressors. Will use zosyn for broader GPR and anaerobic coverage as well as his PsA. Stop cipro. Will follow, thank you, d/w Dr. Block. If he is transferred to [facility], I can follow him there.
--- NOTE | 2018-10-01 14:20 | CASEMGMT ---
Addendum entered by Blaine Arreguin 10/01/18 15:06: Per Dr. Block, transfer to [facility] has been initiated. Daniel MARTINEZ Original Note: NUNO BRANCH Note: PT/OT evaluations, pt ambulated 3 feet contact guard, assist of 1. RN CM assessment reveiwed. ID on consult. Possibility of surgery. Will need to re-evaluate dc needs, SNF vs Home, equipment after any surgical intervention. Daniel PERESM
[2018-10-01] MEDS: Piperacil/Tazobactam 3.375 GM/50 ML ML IV (15:29)
--- NOTE | 2018-10-02 08:55 | PCM.DC.SUM ---
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 #7 severe lower extremity peripheral arterial disease #8 syncope-etiology unknown - Secondary Discharge Diagnosis Chronic Problems Osteomyelitis of left tibia (Chronic) Ulcer of left lower extremity with fat layer exposed (Chronic) Ulcer of left lower extremity with necrosis of bone (Chronic) 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) Venous insufficiency (Chronic) CKD (chronic kidney disease) stage 3, GFR 30-59 ml/min (Chronic) Anemia (Chronic) 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) Delayed wound healing (Chronic) Nonischemic cardiomyopathy (Chronic) Chronic systolic CHF (congestive heart failure) (Chronic) Chronic atrial fibrillation (Chronic) Bilateral edema of lower extremity (Chronic) Open wounds involving multiple regions of lower extremity (Chronic) Neuropathic pain, leg, 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 Workup of the patient in the emergency room included a CBC which showed an elevated white blood cell count, hemoglobin was low at 8, chemistry panel was remarkable for potassium of 5.3, BUN of 87, and a creatinine of 2.18. Patient refused CT of the brain. Patient was found to be hypotensive in the emergency room and was given a fluid bolus. Patient was admitted initially to PCU but was transferred to ICU with a diagnosis of septic shock, he was seen in consultation by pulmonary medicine and was placed on vasopressors, he was seen in consultation by podiatry and infectious diseases and also orthopedic surgery. Patient had a large stage IV ulceration of his left lower leg which was chronic, cultures obtained from the leg wounds during this admission grew out Pseudomonas. Several discussions were carried out with the patient and the patient's vascular surgeon Dr. Maloney by phone, Dr. Maloney recommended that the patient undergo a left below the knee amputation, no surgical intervention was recommended for the patient other than this. I had a discussion with the patient and the patient's , he agreed to transfer to [facility] for amputation. [facility] agreed to take the patient into the ICU due to continued hypotension. On 10/01/18, patient was seen and examined: On examination he appeared in good health and spirits. Vital signs as documented. Skin warm and dry and without overt rashes. Neck without JVD. Lungs clear. Heart exam notable for irregular rhythm with a 2/6 systolic murmur at the left sternal border and apex. Abdomen unremarkable and without evidence of organomegaly, masses, or abdominal aortic enlargement. Extremities-stage IV ulceration was noted over the patient's left lower extremity in its anterior aspect extending from the mid left lower leg to the proximal foot, necrotic bone was noted to be visible in the wound, the wound was approximately 30 cm x 15 cm. Also there was noted to be an ulcer to the posterior left lower leg measuring 10 cm x 6 cm.. Neuro: Cranial nerves II through XII are grossly intact, no focal motor deficits were noted, sensation to light touch and pinprick intact. Psych: Patient is alert and oriented x3, he does not appear anxious or depressed On 10/01/18, patient was seen and examined and felt to be in stable condition for transfer to an acute care hospital for amputation of the left lower leg below the knee. He will be admitted to [facility] in the ICU. - Physical Exam Vital Signs Temp Pulse Resp BP Pulse Ox 99.6 F H 100 14 96/59 L 96 10/01/18 15:56 10/01/18 15:56 10/01/18 15:56 10/01/18 15:56 10/01/18 15:56 Oxygen Flow Rate (L/min) 2 Oxygen Delivery Method Room Air Weight: 82 kg Body Mass Index (BMI) 21.5 Intake and Output for Last 24 Hours 09/30/18 10/01/18 10/02/18 23:59 23:59 23:59 Intake Total 2881.6 / 2881.6 700 / 700 Output Total 1600 / 1600 1150 / 1150 Balance 1281.6 / 1281.6 -450 / -450 Microbiology Past 72 Hours 09/29/18 02:40 Gram Stain - Final Ulcer, Decubitus - Leg, Left Wound Culture - Final Pseudomonas aeroginosa Gram positive rito Anaerobic Culture - Preliminary Checking for anaerobes, further studies to follow. 09/29/18 02:40 Gram Stain - Final Ulcer, Decubitus - Leg, Left Wound Culture - Final Pseudomonas aeroginosa Gram positive rito Anaerobic Culture - Preliminary Checking for anaerobes, further studies to follow. 09/28/18 21:10 Blood Culture - Preliminary Blood Culture (Wb) - Right Wrist No growth in 48 hours. 09/28/18 19:35 Blood Culture - Preliminary Blood Culture (Wb) - Anticubital Left No growth in 48 hours. Home Medications: Medications to take at Discharge Aspirin E.C. [Ecotrin] 81 mg PO DAILY@0800 11/06/15 Apixaban [Eliquis] 5 mg PO BID 05/24/17 Carvedilol [Coreg (Beta Min)] 12.5 mg PO BID 05/24/17 Lisinopril [Zestril] 10 mg PO DAILY tablet 03/07/18 Nutritional Supplement [[place] - ORANGE FLAVOR] 1 packet PO BID #60 packet 03/07/18 traMADol [Ultram (G)] 50 mg PO Q6H PRN PRN 09/28/18 Furosemide [Lasix] 40 mg PO DAILY 09/29/18 Spironolactone 25 mg PO BID 09/29/18 Primary Care Physician: Phoebe Daniels MD [Primary Care Provider] - Disposition: Acute care Hospital Minutes spent on discharge:: 35 Patient Condition:: Stable Medical Necessity - Tobacco Use Smoking Status: Former smoker Tobacco Use: Cigarettes Meaningful Use Info Meaningful Use Diagnoses (Choose all that apply): None applicable Code Visit Inpatient E&M: 09343 Disch Hosp
== END 2018-10-01 17:35 | disposition short-term general hospital (02) | DRG 853 ==
LOC: ED 20:25 → PCU 20:38 → ICU 10-01 05:35
PROVIDERS: Hospitalist; Internal Medicine Critical Care Medicine; Admitting Provider Hospitalist; Emergency Provider Emergency Medicine; Family Provider Internal Medicine; PCP Internal Medicine; Referring Provider Hospitalist; Visit Provider Internal Medicine
DX: A41.52 Sepsis due to Pseudomonas (principal); R65.21 Severe sepsis with septic shock; L97.924 Non-pressure chronic ulcer of unspecified part of left lower leg with necrosis of bone; M86.662 Other chronic osteomyelitis, left tibia and fibula; I50.22 Chronic systolic (congestive) heart failure; I42.9 Cardiomyopathy, unspecified; I13.0 Hypertensive heart and chronic kidney disease with heart failure and stage 1 through stage 4 chronic kidney disease, or unspecified chronic kidney disease; N17.9 Acute kidney failure, unspecified; I70.262 Atherosclerosis of native arteries of extremities with gangrene, left leg; L97.822 Non-pressure chronic ulcer of other part of left lower leg with fat layer exposed; L97.823 Non-pressure chronic ulcer of other part of left lower leg with necrosis of muscle; D64.9 Anemia, unspecified; I48.2 Chronic atrial fibrillation; B96.5 Pseudomonas (aeruginosa) (mallei) (pseudomallei) as the cause of diseases classified elsewhere; R55 Syncope and collapse; Z79.02 Long term (current) use of antithrombotics/antiplatelets; Z86.14 Personal history of Methicillin resistant Staphylococcus aureus infection; Z87.891 Personal history of nicotine dependence; E86.0 Dehydration; N18.3 Chronic kidney disease, stage 3 (moderate); I73.9 Peripheral vascular disease, unspecified; I87.2 Venous insufficiency (chronic) (peripheral); Z91.19 Patient's noncompliance with other medical treatment and regimen
CPT/HCPCS: 11043; 11046; 36415; 71045; 73590; 73630; 80048; 80202; 81001; 83605; 84484; 85014; 85018; 85025; 85027; 86141; 86850; 86900; 86920; 86922; 87040; 87070; 87075; 87077; 87184; 87186; 87205; 93005; 97162; 97165; 97597; 97598; 97802; 99285; J2185; J7030; J7040; P9016; Q9957; A4216

== ENCOUNTER → 2018-12-26 | Outpatient (CLI) | payer MEDICARE, OTHER, SELFPAY ==
--- NOTE | 2018-05-16 13:46 | PCM.HP.ID ---
Reason for Consult: Chronic left flank wound with concern of infection Consulted by: Dr. 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 He also had a wound culture from late February which had the opportunity to review. In talking the patient denies any fevers or chills no constitutional symptoms and is otherwise hemodynamically stable. He does have a history of cardiomyopathy related to a viral illness as well as atrial fibrillation - Medical History Past Medical History (Chronic Problems): Chronic Problems Ulcer of left lower extremity with fat layer exposed (Chronic) Skin ulcer of lower leg with necrosis of muscle (Chronic) 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 (Chronic) 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 (Chronic) Venous insufficiency (Chronic) CKD (chronic kidney disease) stage 3, GFR 30-59 ml/min (Chronic) Anemia (Chronic) 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) Delayed wound healing (Chronic) Nonischemic cardiomyopathy (Chronic) Chronic systolic CHF (congestive heart failure) (Chronic) Chronic atrial fibrillation (Chronic) Bilateral edema of lower extremity (Chronic) Open wounds involving multiple regions of lower extremity (Chronic) Neuropathic pain, leg, bilateral (Chronic) Pain, lower extremity (Chronic) PAOD (peripheral arterial occlusive disease) (Chronic) Peripheral vascular disease of extremity with claudication (Chronic) Allergies/Adverse Reactions: Allergies codeine Adverse Reaction (Verified 04/02/18 16:17) Nausea Home Medications: Ambulatory Orders Medication Instructions Recorded Aspirin E.C. [Ecotrin] 81 mg PO DAILY@0800 11/06/15 Apixaban [Eliquis] 5 mg PO BID 05/24/17 Carvedilol [Coreg (Beta Min)] 12.5 mg PO BID 05/24/17 Furosemide [Lasix] 40 mg PO BID tablet 03/07/18 Lactobacillus Acidophilus 1 tab PO BID #60 tab 03/07/18 [Acidophilus] Lisinopril [Zestril] 10 mg PO DAILY tablet 03/07/18 Nutritional Supplement [Napoleon - 1 packet PO BID #60 packet 03/07/18 ORANGE FLAVOR] Potassium Chloride [K-Dur] 10 meq PO BIDCM tablet 03/07/18 Levofloxacin [Levaquin] 500 mg PO DAILY 04/02/18 - Other Studies Radiology: [] Other Studies: [] Route of nutrition/ use of supplements: [] Nutritional Intake: [] IV Site: [] [place] Catheter: [] Alert and oriented ?3 does not appear toxic lungs are clear heart exam S1-S2 abdomen soft nontender he has a large wound in his left lower leg anteriorly with some areas of necrotic tissue. - Assessment/Plan Antibiotics: [] Assessment/Plan: [] Chronic left leg wound with concern of bacterial superinfection he does have a history of MRSA recent cultures reviewed. At this point will treat with doxycycline 100 mg p.o. twice daily along with ciprofloxacin 500 mg p.o. twice daily for [address] course[address] Cleary regards to this management
--- NOTE | 2018-06-22 09:05 | NURSING ---
DURING PAT PHONE INTERVIEW, PT STOPPED THE INTERVIEW ABRUPTLY AFTER RN OBTAINED HIS HOME MED LIST AND INSTRUCTED HIM ON MEDS TO TAKE DOS. PT STATED HE HAD TO GO BC HE WAS HEAVY IN THE [employer]. PT ASKED TO FINISH PHONE INTERVIEW LATER IN THE DAY. RN INFORMED HIM OF OTHER PT'S SCHEDULED PHONE INTERVIEW APPOINTMENTS AND PLAN TO CALL WHEN TIME SLOT PRESENTED ITSELF LATER IN THE DAY. PT AGREEABLE.
[2018-10-19 00:59] VITALS: BMI 65.4
== END | disposition home or self-care (01) ==
LOC: SDC 10:30
PROVIDERS: Family Provider Internal Medicine; PCP Internal Medicine; Visit Provider Podiatrist
DX: S81.809A Unspecified open wound, unspecified lower leg, initial encounter (principal)

== ENCOUNTER 2019-03-20 14:20 | Inpatient (IN) | payer MEDICARE, OTHER, SELFPAY ==
[2019-03-20] VITALS (9 sets, daily range): BP systolic 73–136; BP diastolic 34–100; PULSE 62–120; RESP 15–18; TEMP 36.7–37.6; O2SAT 92–98; BMI 21.5; BMI 23.7; BMI 19.1
[2019-03-20] MEDS: 0.9% Normal Saline 1,000 ML 1000 ML IV (15:15)
[2019-03-20 15:18] LABS: Absolute Lymphocyte Count 1.65 X10^3/ul (0.83-4.51); Absolute Neutrophil Count 6.5 X10^3/uL (2.0-7.7); Basophil# 0.03 X10^3/uL; Basophil% 0.3 % (0-1); Eosinophils% 1.1 % (0-5); Hematocrit 37.7 % (40-54); Hemoglobin 12.6 g/dl (13.0-16.5); Lymphocyte # 1.65 X10^3/ul (4.0); Lymphocyte % 18.3 % (19-41); Mean Corp Hgb Conc 33.4 g/gl (32-36); Mean Corpuscular Hgb 30.4 pg (27.0-32.0); Mean Corpuscular Volume 91.1 fL (80-94); Mean Platelet Vol. 10.1 fl (6.2-12.0); Monocyte# 0.75 X10^3/uL; Monocyte% 8.3 % (0-10); Neutrophil # 6.49 X10^3/uL (2.7-7.7); Neutrophil % 71.8 % (47-70); Platelet Count 319 K/mm3 (150-450); RBC Distribution Width CV 14.9 % (11.6-14.6); RBC Distribution Width SD 49.7 fl (35.1-43.9); Red Blood Count 4.14 M/mm3 (4.6-6.2)
[2019-03-20 15:20] LABS: POSITIVE COUNT NO; POSITIVE DIFFERENTIAL NO; POSITIVE MORPHOLOGY NO
[2019-03-20 15:33] LABS: ALB/GLOB Ratio 0.8 RATIO (0.9-2.4); AST(SGOT) 11 U/L (15-37); Alanine Aminotransfer ALT/SGPT 14 U/L (16-61); Albumin, Serum 3.3 g/dL (3.2-5.0); Alkaline Phosphatase 74 U/L (45-117); Anion Gap 10 (5-15); BUN 31 mg/dL (7-18); Calcium,Total 9.2 mg/dL (8.5-10.1); Chloride 104 mmol/L (98-107); Creatinine, Serum 1.29 mg/dL (0.70-1.30); EST Glomerular Filtration Rate 57 mL/min (>60); Est Glom Filt Rate - Afr Amer 69 mL/min (>60); Globulin 3.9 g/dL (2.2-4.2); Glucose 102 mg/dL (74-106); Potassium 3.9 mmol/L (3.5-5.1); Protein, Total 7.2 g/dL (6.4-8.2); Sodium Level 140 mmol/L (136-145)
[2019-03-20 15:36] LABS: Lactic Acid 1.7 mmol/L (0.4-2.0)
--- NOTE | 2019-03-20 15:38 | ED.VISSUMM ---
- ER Visit Summary Date of Service: 03/20/19 Chief Complaint: [Wound to right leg] History of Present Illness: The patient is a 78 M [presents the emergency department with a wound to the right leg that occurred 3 days ago. Patient states that he fell out of his wheelchair onto a hardwood floor and sustained a laceration. Patient did not seek any medical attention at the time. Patient states that now he is had drainage from the wound and erythema. Patient went to urgent care and was referred to the emergency department when it was noted that he had a tympanic temperature of 100. Patient denies any chills or sweats. Patient does have history of coronary artery disease, CHF, A. fib, sepsis, and MRSA. 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 Patient states that his blood pressure typically runs low.] Physical Examination: [HEENT-PERRLA, EOMI. Cranial nerves II through XII grossly intact. TMs clear. Mucous membranes moist. No adenopathy. Cardiovascular-regular rate and rhythm without murmur or ectopy Lungs-clear to auscultation, chest wall stable without crepitus or subcu emphysema Abdomen-normoactive bowel sounds, soft, nontender, no rebound or rigidity, no peritoneal signs. Extremities-intact ?4, normal range of motion, normal pulses. Right lower extremity-patient has an 8 cm V-shaped laceration over the right lateral calf with some serous drainage noted from the wound. Site there is diffuse erythema and warmth noted to the lower leg. No significant lymphangitic streaking noted. Patient has normal sensation distally. Patient has palpable dorsal pedal and posterior tibial pulses.] Test Results: [EKG obtained on arrival via protocol by nursing staff showed A. fib with a ventricular rate of 100 bpm with right bundle branch block. CBC with differential 9.0, hemoglobin 12.6, hematocrit 38, placed 319. Chemistries unremarkable. Lactate was 1.7. LFTs were normal.] Emergency Department Course and Treatment: [Patient was started on vancomycin as well as Unasyn IV. Patient was given 50 mcg of fentanyl for pain. Patient was ordered a liter normal same fluid bolus.] Treatment Plan: [Admit for fluids and IV antibiotics. Disposition: [Admit] Impression: [Right lower leg laceration with cellulitis Hypotension] This note was generated with [employer]Q dictation software. It may contain incorrect words, spelling, and punctuation that were not noted in review of the chart prior to signing ED Disposition - Plan for ED Patient: Referrals: Phoebe Daniels MD [Primary Care Provider] -
[2019-03-20] MEDS: fentaNYL 100 MCG/2 ML Ampul 50 MCG IV (15:45)
--- NOTE | 2019-03-20 16:16 | HP.PCM_ITS ---
Problem List (1) Leg wound, right Status: Acute Qualifiers: Encounter type: initial encounter Qualified Code(s): S81.801A - Unspecified open wound, right lower leg, initial encounter History of Present Illness Date of Admission: 03/20/19 Chief Complaint: drainage from right leg wound The patient is a 78 year old M who is essentially wheelchair-bound but is able to transfer himself. Patient was attempting to transfer himself but then his right leg gave out and he fell to the floor. He sustained a laceration to his leg. Attempted to 10 to it at home but then started having increased drainage. Patient had no other overt constitutional symptoms. Presented to urgent care who saw the wound and directed him to the emergency room. Patient apparently was having a temperature of 100 ?F at the urgent care but was afebrile here. Patient did have some low blood pressure readings here but other times been normotensive and patient has been mentating properly. Patient does state that he has chronic low blood pressure. But he and his logistics expressing that patient is having serious and not purulent drainage from his lower extremity. Has some erythema in his leg but they state that that is not a new phenomenon. 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) 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) Venous insufficiency (Chronic) CKD (chronic kidney disease) stage 3, GFR 30-59 ml/min (Chronic) Anemia (Chronic) 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) Delayed wound healing (Chronic) Nonischemic cardiomyopathy (Chronic) Chronic systolic CHF (congestive heart failure) (Chronic) Chronic atrial fibrillation (Chronic) Bilateral edema of lower extremity (Chronic) Open wounds involving multiple regions of lower extremity (Chronic) Neuropathic pain, leg, 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 [Ecotrin] 81 mg PO DAILY@0800 11/06/15 Apixaban [Eliquis] 5 mg PO BID 05/24/17 Carvedilol [Coreg (Beta Min)] 12.5 mg PO BID 05/24/17 Lisinopril [Zestril] 10 mg PO DAILY tablet 03/07/18 traMADol [Ultram (G)] 50 mg PO Q6H PRN PRN 09/28/18 Furosemide [Lasix] 40 mg PO DAILY 09/29/18 Spironolactone 25 mg PO BID 09/29/18 Surgical History: appendectomy, herniorrhaphy, - - Hand surgery. left AKA Psychiatric History: No pertinent psych hx Lives: Spouse/ Significant Other Smoking Status: Former smoker Tobacco Use: Cigarettes, Cigars - *Family History Maternal History Items: Dementia Paternal History Items: - - venous ulcers Review of Systems Constitutional: Denies: Chills, Fever, Weight Change Eyes: Denies: Blurred vision, Double vision HEENT: Denies: Head Aches, Sinus Congestion, Sinus Drainage Cardiovascular: Denies: Chest Pain, Palpitations Respiratory: Denies: Cough, Shortness of breath at rest, Sputum production Gastrointestinal: Denies: Abdominal Pain, Nausea, Vomiting Genitourinary: Denies: Dysuria Musculoskeletal: Denies: Joint Pain, Joint Tenderness Skin: Denies: Rash, Wounds Neurological: Denies: Blurred vision, Double vision, Slurred speech, Numbness Psychiatric: Denies: Anxiety, Depression Endocrine: Denies: Change in Body Habitus, Heat/ Cold Intolerance Hematologic/ Lymphatic: Denies: Easy Bruising, Easy Bleeding, Hx of blood clot Comment: A 10 point review of systems were negative except as mentioned in the history of present illness and the other review of systems. VTE Information - Inpt Only VTE Present on Admission: No VTE Mechan Device Prophylaxis: None VTE Pharm Prophylaxis ordered?: No Reason prophylaxis not ordered:: Procedure Not Indicated Patient Problems: Active and Suspected Problems Leg wound, right (Acute) - Physical Exam General: Alert, Cooperative, No apparent distress HEENT: Atraumatic, Normocephalic Oral: Moist Mucosa, No Gingival or Mucosal Lesions/ Ulcerations Neck: No Nodes, Thyroid Normal Size and Texture Lungs: Clear to auscultation, Normal air movement, No rhonchi, No wheeze, No rales Cardiovascular: Regular rate, Regular Rhythm, Normal S1, Normal S2, No murmurs Abdomen: Bowel Sounds Present, Soft, Non Tender, Non-Distended, No Hepato- splenomegaly Extremities: - - Status post [id number]-[id number] amputation on the left. Right lower extremity wound shows a fairly large boomerang shaped skin tear. No purulence could be expressed. Does have copious serous drainage, however. Patient does have some venous stasis dermatitis and some slight bottleneck deformity of the right lower extremity. Skin: - - Skin tear on the right lower extremity Musculoskeletal: Arthritic Changes, Cachexia Neurological: Neuro grossly intact, Muscle tone normal Psych/Mental Status: Normal Affect, Appropriate Vital Signs Temp Pulse Resp BP Pulse Ox 36.7 C 111 H 18 108/71 94 03/20/19 14:39 03/20/19 16:00 03/20/19 16:00 03/20/19 16:00 03/20/19 16:00 Oxygen Delivery Method Room Air Weight: 81.647 kg Body Mass Index (BMI) 23.7 Laboratory Tests Past 24 Hrs 03/20/19 03/20/19 03/20/19 14:50 14:50 14:50 WBC 9.0 RBC 4.14 L Hgb 12.6 L Hct 37.7 L MCV 91.1 MCH 30.4 MCHC 33.4 RDW 14.9 H RDW Differential 49.7 H Plt Count 319 MPV 10.1 Immature Gran % (Auto) 0.200 Neut % (Auto) 71.8 H Lymph % (Auto) 18.3 L Grant % (Auto) 8.3 Eos % (Auto) 1.1 Baso % (Auto) 0.3 Absolute Neuts (auto) 6.5 Absolute Lymphs (auto) 1.65 Total Counted Not Reportable Sodium 140 Potassium 3.9 Chloride 104 Carbon Dioxide 26.0 Anion Gap 10 BUN 31 H Creatinine 1.29 Estim Creat Clear Calc 54.20 Est GFR (MDRD) Af Amer 69 Est GFR (MDRD) Non-Af 57 L BUN/Creatinine Ratio 24.0 H Glucose 102 Lactic Acid 1.7 Calcium 9.2 Total Bilirubin 0.80 AST 11 L ALT 14 L Alkaline Phosphatase 74 Total Protein 7.2 Albumin 3.3 Globulin 3.9 Albumin/Globulin Ratio 0.8 L Assessment/Plan All Active Problems Leg wound, right (Acute) Septic shock (Acute) Syncope (Acute) Cellulitis of leg without foot, left (Acute) 1. Right lower extremity wound * Not sure that this is actually infected at this time * Patient is having copious serous drainage but they think that is likely due to the fact that patient has chronic swelling in that leg likely due to his underlying heart failure. * Patient will be on vancomycin for now given his history of MRSA * Wound culture ordered in the emergency room and will be followed up * Local wound care and consult wound care as well * If symptoms do worsen then consider imaging of his leg. 2. Heart failure with a reduced ejection fraction * Clinically compensated at this time * Ejection fraction of 35% from echocardiogram on September 07, 2015 * Continue Lasix, spironolactone, lisinopril and carvedilol * Patient to follow-up with cardiology this summer 3. Chronic atrial fibrillation * Rate controlled * Continue with carvedilol * anticoagulated with apixaban 4. Low blood pressure readings * This is from the ER but I do not feel that these were accurate * Patient is mentating fine and has no signs or symptoms of septic shock 5. VTE prophylaxis: Low risk as patient is already on apixaban. No VTE prophylaxis indicated. Case discussed with his at bedside. Code Visit Inpatient E&M: 61005 Init Hosp L3
--- NOTE | 2019-03-20 16:30 | CASEMGMT ---
RN CM Assessment Introduced role of RN CM to patient and patient Elizabeth at bedside.? Patient is alert, oriented and able?to participate in RN CM Assessment. ?Information provided by both patient and patient Elizabeth. Care providers, pharmacy, and demographics verified. Presentation: Rt Leg wound x3 days. Patient fell out of WC x3 days ago onto [facility]. C/o Drainage and erythema. Seen at and referred to ER. Admit Dx: Rt Leg Wound Re-Admit: No. Inpt 09/28-10/01/18 for Severe Sepsis Barriers/Issues: None PCP: Phoebe Daniels Specialists: [facility] has nine specialist. Cardiac- Dr Fierro. Has not established with new Cloth Grader. Preferred Pharmacy: [facility] Insurance: [facility] A[facility]B, O Rx Benefit:?Yes LNOK: Elizabeth Collado LW/HPOA: Yes both, Not on file at [facility]. HPOA- Elizabeth Collado Living Arrangements:?Lives with in a condo with ramp to enter ADL?s: WC/Bed Bound. Independent with ADLs Transportation: Friend or , upon DC DME: HHC: PAst- [facility]. Preference [facility] if HHC needed. SNF: None Goal: Home, does not think will have any needs, Ok if HHC needed. Denies questions/concerns. Aware CM remains available for any emerging needs. DC PLAN: Home with possible HHC for Wound Care. Milad Lockett RNCM
--- NOTE | 2019-03-20 17:16 | PHA.PHARE_ITS ---
Consult Pharmacy has been consulted to manage selected antiobiotic: Vancomycin Type of Consult: New start Suspected Infection: Other Labs: Sodium 140 mmol/L (136-145) 03/20/19 14:50 Potassium 3.9 mmol/L (3.5-5.1) 03/20/19 14:50 Chloride 104 mmol/L (98-107) 03/20/19 14:50 Carbon Dioxide 26.0 mmol/L (21.0-32.0) 03/20/19 14:50 10 (5-15) 03/20/19 14:50 BUN 31 mg/dL (7-18) H 03/20/19 14:50 1.29 mg/dL (0.70-1.30) 03/20/19 14:50 Est GFR (MDRD) Af Amer 69 mL/min (>60) 03/20/19 14:50 Est GFR (MDRD) Non-Af 57 mL/min (>60) L 03/20/19 14:50 24.0 RATIO (10-20) H 03/20/19 14:50 Glucose 102 mg/dL (74-106) 03/20/19 14:50 Weight used for dosin kg Estimated Creatinine Clearance: 45 Goal Trough: 15-20 mcg/mL Pharmacy Plan for Drug Dosing: Patient on vancomycin here during recent admission. At that time, vancomycin dose was 1000mg IV q12h with same 15-20 mcg/mL trough goal. Recommend to re- start same regimen and check prior to 4th dose per policy. Patient has lost weight and initial creatinine is elevated but this is typical for his admissions and has been on vancomycin similar dosing a number of other times. Pharmacy Service will continue to monitor and adjust dosing as required. Follow-Up Labs: Trough Vancomycin - 03/22 @ [id number]
--- NOTE | 2019-03-20 18:20 | EKG12_ITS ---
Test Reason : HX OF AFIB Blood Pressure : / mmHG Vent. Rate : 100 BPM Atrial Rate : 340 BPM P-R Int : 000 ms QRS Dur : 120 ms QT Int : 378 ms P-R-T Axes : 000 068 033 degrees QTc Int : 487 ms Atrial fibrillation with premature ventricular or aberrantly conducted complexes Right bundle branch block Abnormal ECG Confirmed by DEB OROURKE, SALLY ([id number]), commercial production editor GERMAN AGUIRRE ([id number]) on 03/25/2019 1:25:47 PM Referred By: HAYDEN Confirmed By:SALLY BOYD MD
[2019-03-20] MEDS: APIXABAN 5 MG TABLET PO (21:52)
[2019-03-20] MEDS: Carvedilol 12.5 MG Tablet PO (21:52)
[2019-03-21 01:45] VITALS: BP 85/55; PULSE 101; RESP 16; TEMP 37; O2SAT 94
[2019-03-21] MEDS: oxyCODONE 5 MG Tablet PO (02:52)
[2019-03-21 03:45] VITALS: BP 95/50; PULSE 110; RESP 18; TEMP 37.1; O2SAT 94
[2019-03-21] MEDS: Vancomycin IV 1,000 MG/200 ML BAG 200 MG IV ×2 (06:07→18:14)
[2019-03-21] MEDS: 0.9% NaCl Peripheral Flush Adult/Peds IV ×2 (06:07→18:14)
[2019-03-21 07:52] LABS: Anion Gap 7 (5-15); BUN 24 mg/dL (7-18); BUN/Creat Ratio 27.4 RATIO (10-20); Calcium,Total 8.7 mg/dL (8.5-10.1); Chloride 110 mmol/L (98-107); Creatinine, Serum 0.88 mg/dL (0.70-1.30); EST Glomerular Filtration Rate 90 mL/min (>60); Est Glom Filt Rate - Afr Amer 108 mL/min (>60); Estimated Creatinine Clearance 65.43 ml/min; Glucose 104 mg/dL (74-106); Potassium 3.9 mmol/L (3.5-5.1); Sodium Level 141 mmol/L (136-145)
[2019-03-21 08:45] VITALS: BP 90/64; PULSE 73; RESP 18; TEMP 37.3; O2SAT 97
[2019-03-21] MEDS: Aspirin E.C. 81 MG Tablet PO (09:14)
[2019-03-21] MEDS: APIXABAN 5 MG TABLET PO ×2 (09:14→22:51)
[2019-03-21] MEDS: Spironolactone 25 MG Tablet PO (09:15)
[2019-03-21] MEDS: Carvedilol 12.5 MG Tablet PO (09:15)
--- NOTE | 2019-03-21 10:11 | PCM.CONS.GEN ---
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 He has a recent increase in falling and sustained an injury to the right leg 3 days ago with subsequent clear drainage. He was admitted for cellulitis and falling. He relates his blood pressure is usually running pretty low and he is not sure if this is related to his current state. This morning, he denies fever, chill, nausea, vomiting his leg pain is mild to moderate and is aggravated with direct touch.. His right knee is permanently contracted he is unable to stretch this out. 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) 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) Venous insufficiency (Chronic) CKD (chronic kidney disease) stage 3, GFR 30-59 ml/min (Chronic) Anemia (Chronic) 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) Delayed wound healing (Chronic) Nonischemic cardiomyopathy (Chronic) Chronic systolic CHF (congestive heart failure) (Chronic) Chronic atrial fibrillation (Chronic) Bilateral edema of lower extremity (Chronic) Open wounds involving multiple regions of lower extremity (Chronic) Neuropathic pain, leg, 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 [Ecotrin] 81 mg PO DAILY@0800 11/06/15 Apixaban [Eliquis] 5 mg PO BID 05/24/17 Carvedilol [Coreg (Beta Min)] 12.5 mg PO BID 05/24/17 Lisinopril [Zestril] 10 mg PO DAILY tablet 03/07/18 traMADol [Ultram (G)] 50 mg PO Q6H PRN PRN 09/28/18 Furosemide [Lasix] 40 mg PO DAILY 09/29/18 Spironolactone 25 mg PO BID 09/29/18 Surgical History: appendectomy, herniorrhaphy, - - Hand surgery. left AKA Psychiatric History: No pertinent psych hx Lives: Spouse/ Significant Other Smoking Status: Former smoker Tobacco Use: Cigarettes, Cigars - *Family History Maternal History Items: Dementia Paternal History Items: - - venous ulcers Review of Systems Constitutional: Denies: Chills, Fever Cardiovascular: Denies: Chest Pain Gastrointestinal: Denies: Nausea Musculoskeletal: Reports: Joint Tenderness, Leg Pain Skin: Reports: Skin Changes, Wounds Neurological: Reports: Balance problems, Incoordination Endocrine: Reports: Change in Body Habitus Hematologic/ Lymphatic: Reports: Easy Bruising, Easy Bleeding Patient Problems: Active and Suspected Problems Leg wound, right (Acute) Ulcer of right lower extremity with fat layer exposed (Acute) Skin tear (Acute) Malnutrition (Suspected) - Physical Exam General: Alert, Oriented x3, Cooperative HEENT: Atraumatic Extremities: No cyanosis, Capillary Refill Less than 3 Seconds, No Calf Tenderness - Negative Travon and Araya sign right lower extremity, Diminished Peripheral Pulses - Nonpalpable PT and DP pulse right lower extremity. His foot is warm to touch and there is no evidence of critical limb ischemia, - - Contracted right knee nonreducible. Left above-knee amputation noted Skin: Ulcer/ Wound - No purulence, erythema hamstring, odor, or infection noted. There is a large ulceration that is V-shaped with the apex at the anterior medially oriented lateral leg that measures 9.8 cm x 5.0 cm with a depth of 0.2 cm. There is also a smaller skin discontinuity to the posterior lateral right leg that measures 4 cm x 2.3 cm x 0.1 cm. There is no purulence, erythema hamstring, odor, necrosis, deep tissue exposure. The peripheral skin is hairless and atrophic with some evidence of chronic hyperpigmentation. There is no maceration Musculoskeletal: No Tenderness to Palpation of Joints or Extremities, Muscle Wasting Neurological: Sensory exam intact to light touch and pain Psych/Mental Status: Normal Affect, Appropriate, Anxious Vital Signs Temp Pulse Resp BP Pulse Ox 99.2 F H 73 18 90/64 97 07/04/19 08:45 03/21/19 08:45 03/21/19 08:45 03/21/19 08:45 03/21/19 08:45 Oxygen Delivery Method Room Air Weight: 65.8 kg Body Mass Index (BMI) 19.1 Intake and Output for Last 24 Hours 03/19/19 03/20/19 03/21/19 23:59 23:59 23:59 Intake Total 648 / 648 240 / 240 Output Total 100 / 100 135 / 135 Balance 548 / 548 105 / 105 Laboratory Tests Past 24 Hrs 03/20/19 03/20/19 03/20/19 14:50 14:50 14:50 WBC 9.0 RBC 4.14 L Hgb 12.6 L Hct 37.7 L MCV 91.1 MCH 30.4 MCHC 33.4 RDW 14.9 H RDW Differential 49.7 H Plt Count 319 MPV 10.1 Immature Gran % (Auto) 0.200 Neut % (Auto) 71.8 H Lymph % (Auto) 18.3 L [place] % (Auto) 8.3 Eos % (Auto) 1.1 Baso % (Auto) 0.3 Absolute Neuts (auto) 6.5 Absolute Lymphs (auto) 1.65 Total Counted Not Reportable Sodium 140 Potassium 3.9 Chloride 104 Carbon Dioxide 26.0 Anion Gap 10 BUN 31 H Creatinine 1.29 Estim Creat Clear Calc 54.20 Est GFR (MDRD) Af Amer 69 Est GFR (MDRD) Non-Af 57 L BUN/Creatinine Ratio 24.0 H Glucose 102 Lactic Acid 1.7 Calcium 9.2 Total Bilirubin 0.80 AST 11 L ALT 14 L Alkaline Phosphatase 74 Total Protein 7.2 Albumin 3.3 Globulin 3.9 Albumin/Globulin Ratio 0.8 L 03/21/19 06:30 WBC RBC Hgb Hct MCV MCH MCHC RDW RDW Differential Plt Count MPV Immature Gran % (Auto) Neut % (Auto) Lymph % (Auto) [place] % (Auto) Eos % (Auto) Baso % (Auto) Absolute Neuts (auto) Absolute Lymphs (auto) Total Counted Sodium 141 Potassium 3.9 Chloride 110 H Carbon Dioxide 24.0 Anion Gap 7 BUN 24 H Creatinine 0.88 Estim Creat Clear Calc 65.43 Est GFR (MDRD) Af Amer 108 Est GFR (MDRD) Non-Af 90 BUN/Creatinine Ratio 27.4 H Glucose 104 Lactic Acid Calcium 8.7 Total Bilirubin AST ALT Alkaline Phosphatase Total Protein Albumin Globulin Albumin/Globulin Ratio Assessment/Plan All Active Problems Leg wound, right (Acute) Ulcer of right lower extremity with fat layer exposed (Acute) Skin tear (Acute) Septic shock (Acute) Syncope (Acute) Cellulitis of leg without foot, left (Acute) Right leg ulcer secondary to skin tearing and falling Lower right leg ulcer with fat layer exposed Admitted for cellulitis which appears to be resolving Continued instability with walking and fall risk Other comorbidities including previous smoking habits, atrial fibrillation, low ejection fraction Malnutrition suspected Left above-knee amputation I reviewed and discussed his case. He does appear to have a very low-grade fever otherwise his vital signs are stable. He does not have any leukocytosis at this time. Clinically there is no redness or signs of cellulitis on his right leg which appears to be improving after chart review from admission. A culture was obtained while in the emergency room and there is no growth noted yet. This will be followed. His blood cultures are also negative for bacterial growth so far. I recommend changing the dressing daily with Adaptic and hydrogel; these will be ordered. He was reassured that there is no deep tissue exposure or nena infection at the ulcer sites. To keep pressure off the site by avoiding lying on the lateral side of his leg. This will be challenging due to his knee contraction. He does have a history of peripheral vascular disease and lower extremity edema which complicate his case. At this time today he does not have nena edema to his right leg and this will be monitored. I recommend nutritional supplementation to optimize healing; Napoleon was ordered. Medical management DVT prophylaxis per primary team is appreciated. To continue work with PT and OT for transfers. Thank you for the consultation. The podiatry team will continue to follow weekly while in house. To follow up at the wound healing center at time of discharge. Please not hesitate to call if you have any questions. Linda Cleary DPM, [facility] [phone]
--- NOTE | 2019-03-21 10:26 | DCINST_ITS ---
Call your doctor if your incision/area has: Continuous Slow Oozing, Sudden Increased Bleeding, Increased Pain/ Swelling, Increased Redness, Foul Smelling Discharge Call your doctor if you observe: Fever of 101 or Higher, Swelling in the ankles, Calf discomfort, Uncontrolled pain Cleanse incision/area with: Soap & Water - gentle prior to dressing changes; do not soak, - - change right leg dressing every 1 - 2 days with hydrogel, adaptic, 4x4 gauze, abdominal pad, kerlix. Allergies/Adverse Reactions: Allergies codeine Adverse Reaction (Verified 03/20/19 14:22) Nausea Medications to take at Discharge Aspirin E.C. [Ecotrin] 81 mg PO DAILY@0800 11/06/15 Apixaban [Eliquis] 5 mg PO BID 05/24/17 Carvedilol [Coreg (Beta Min)] 12.5 mg PO BID 05/24/17 Lisinopril [Zestril] 10 mg PO DAILY tablet 03/07/18 traMADol [Ultram (G)] 50 mg PO Q6H PRN PRN 09/28/18 Furosemide [Lasix] 40 mg PO DAILY 09/29/18 Spironolactone 25 mg PO BID 09/29/18 Primary Care Physician: Phoebe Daniels MD [Primary Care Provider] - Test Results: Test results from this visit will be discussed in further detail at your follow- up appointment, if applicable. Please Follow Up With: Clinic,Wound When: Dr. Cleary within one week of discharge. Call if concerns; [phone]
[2019-03-21] MEDS: traMADol 50 MG Tablet PO ×2 (10:41→18:15)
[2019-03-21 12:00] VITALS: BP 91/54; PULSE 94; RESP 16; TEMP 36.9; O2SAT 98
[2019-03-21] MEDS: Acetaminophen 325 MG Tablet 650 MG PO (13:15)
--- NOTE | 2019-03-21 14:45 | PN_ITS ---
Patient Problems: Active and Suspected Problems Leg wound, right (Acute) Ulcer of right lower extremity with fat layer exposed (Acute) Skin tear (Acute) Malnutrition (Suspected) Subjective: Patient is stated he fell down about 18 times last 2 to 3 years. Left above- knee amputation. Right knee is stiff and severe loss of range of motion. Right knee is contracted in V?shaped manner. Cannot extend the knee completely. This was discussed with employee wellness/fitness coordinator Dr. Cleary and consult appreciated. Vitals/I&O's: Vital Signs Temp Pulse Resp BP Pulse Ox 98.4 F 94 16 91/54 L 98 03/21/19 12:00 03/21/19 12:00 03/21/19 12:00 03/21/19 12:00 03/21/19 12:00 Oxygen Delivery Method Room Air Weight: 145 lb 1.027 oz Body Mass Index (BMI) 19.1 Intake and Output for Last 24 Hours 03/19/19 03/20/19 03/21/19 23:59 23:59 23:59 Intake Total 648 / 648 780 / 780 Output Total 100 / 100 235 / 235 Balance 548 / 548 545 / 545 General: Alert, Oriented x3, Cooperative HEENT: Atraumatic, PERRLA, EOMI, Normocephalic Neck: Supple, No JVD, Negative Carotid Bruits Lungs: Clear to auscultation, No rhonchi, No wheeze, No rales, Diminished - Air entry is diminished in bilateral lung bases. Cardiovascular: Regular rate, Regular Rhythm, Normal S1, Normal S2, No murmurs Abdomen: Bowel Sounds Present, Soft, Non Tender Extremities: No edema, Capillary Refill Less than 3 Seconds Skin: No rashes, No breakdown Musculoskeletal: Arthritic Changes, Muscle Wasting, Tenderness, - - Left above- knee amputation. No obvious ulcer/skin breakdown seen in left AKA stump. Right knee has contracture. Dressing on the left lower leg. Right foot skin is dry and shriveled. Neurological: Cranial nerves II-XII grossly intact, Deep Tendon Reflexes 2+/4 and Symmetrical, Neuro grossly intact Psych/Mental Status: Normal Affect, Appropriate Microbiology Past 72 Hours 03/20/19 15:24 Wound - Leg, Right Wound Culture - Preliminary Staphylococcus aureus Laboratory Results 03/20/19 14:50: WBC 9.0, RBC 4.14 L, Hgb 12.6 L, Hct 37.7 L, MCV 91.1, MCH 30.4, MCHC 33.4, RDW 14.9 H, RDW Differential 49.7 H, Plt Count 319, MPV 10.1, Immature Gran % (Auto) 0.200, Neut % (Auto) 71.8 H, Lymph % (Auto) 18.3 L, Mcdonough % (Auto) 8.3, Eos % (Auto) 1.1, Baso % (Auto) 0.3, Absolute Neuts (auto) 6.5, Absolute Lymphs (auto) 1.65, Total Counted Not Reportable 03/20/19 14:50: Sodium 140, Potassium 3.9, Chloride 104, Carbon Dioxide 26.0, Anion Gap 10, BUN 31 H, Creatinine 1.29, Estim Creat Clear Calc 54.20, Est GFR (MDRD) Af Amer 69, Est GFR (MDRD) Non-Af 57 L, BUN/Creatinine Ratio 24.0 H, Glucose 102, Calcium 9.2, Total Bilirubin 0.80, AST 11 L, ALT 14 L, Alkaline Phosphatase 74, Total Protein 7.2, Albumin 3.3, Globulin 3.9, Albumin/Globulin Ratio 0.8 L 03/20/19 14:50: Lactic Acid 1.7 03/21/19 06:30: Sodium 141, Potassium 3.9, Chloride 110 H, Carbon Dioxide 24.0, Anion Gap 7, BUN 24 H, Creatinine 0.88, Estim Creat Clear Calc 65.43, Est GFR (MDRD) Af Amer 108, Est GFR (MDRD) Non-Af 90, BUN/Creatinine Ratio 27.4 H, Glucose 104, Calcium 8.7 Current Medications Acetaminophen (Tylenol) 650 mg PO Q6H PRN PRN PRN Reason: Mild Pain (1-3)/Temp > 100.7 F Last Admin: 03/21/19 13:15 Dose: 650 mg Documented by: Apixaban (Eliquis) 5 mg PO BID [facility] Last Admin: 03/21/19 09:14 Dose: 5 mg Documented by: Aspirin (Ecotrin) 81 mg PO DAILY@0800 [facility] Last Admin: 03/21/19 09:14 Dose: 81 mg Documented by: Carvedilol (Coreg) 12.5 mg PO BID [facility] Last Admin: 03/21/19 09:15 Dose: 12.5 mg Documented by: Furosemide (Lasix) 40 mg PO DAILY [facility] Vancomycin IV Pharmacy to Dose (1 ea/ Sodium Chloride) 500 mls @ 250 mls/hr IV X1 PRN; Protocol PRN Reason: Rx to Dose Vancomycin HCl (Vancomycin) 1,000 mg in 200 mls @ 200 mls/hr IV Q12H [facility] Last Admin: 03/21/19 06:07 Dose: 200 mls/hr Documented by: Sodium Chloride () 250 mls @ 15 mls/hr IV .[id number] PRN PRN Reason: SALINE FLUSH Lisinopril (Zestril) 10 mg PO DAILY [facility] Last Admin: 03/21/19 09:16 Dose: Not Given Documented by: Melatonin (Melatonin) 3 mg PO QHS PRN PRN PRN Reason: INSOMNIA Nutritional Formula (Napoleon - [place] Flavor) 1 packet PO BIDCM [facility] Last Admin: 03/21/19 12:00 Dose: 1 packet Documented by: Nutritional Formula (Lactose Free) (Ensure Enlive) 120 ml PO 4X/DAY [facility] Last Admin: 03/21/19 09:16 Dose: 120 ml Documented by: Ondansetron HCl (Zofran) 4 mg IV Q8H PRN PRN PRN Reason: NAUSEA/VOMITING Oxycodone HCl (Oxyir) 5 mg PO Q4H PRN PRN PRN Reason: Moderate Pain (4-6/10) Last Admin: 03/21/19 02:52 Dose: 5 mg Documented by: Sodium Chloride () 10 - 40 ml IV UD PRN PRN Reason: SALINE FLUSH Last Admin: 03/21/19 06:07 Dose: 10 ml Documented by: Spironolactone (Aldactone) 25 mg PO BID [facility] Last Admin: 03/21/19 09:15 Dose: 25 mg Documented by: Tramadol HCl (Ultram) 50 mg PO Q6H PRN PRN PRN Reason: PAIN Last Admin: 03/21/19 10:41 Dose: 50 mg Documented by: Medical Necessity - Tobacco Use Smoking Status: Former smoker Tobacco Use: Cigarettes, Cigars Assessment/Plan All Active Problems Leg wound, right (Acute) Ulcer of right lower extremity with fat layer exposed (Acute) Skin tear (Acute) Septic shock (Acute) Syncope (Acute) Cellulitis of leg without foot, left (Acute) This is a 78-year-old gentleman, wheelchair-bound status post left AKA came to ER after he fell to the floor. He has contracture of right knee and attempt to transfer he fell down. The laceration in the left leg with increased serous drainage. Patient had temperature 100 Fahrenheit at urgent care and on the floor T-max 91.6 Fahrenheit. 1. Right lower extremity wound with low-grade fever: Patient does not have leukocytosis, redness or other signs of cellulitis on his right leg. Right leg wound culture shows staph aureus. MRSA nasal screen ordered. Patient has copious serous drainage. Right leg swelling has improved. Currently on vancomycin until MRSA is ruled out. Patient seen by Dr. Lynn and recommended daily dressing with Adaptic and hydrogel. Advised pressure off and avoid lying on the lateral side of his leg. 2. Heart failure with reduced EF with peripheral vascular disease. Echo in August 2015 reported as EF 35%. Currently clinically compensated. Continue Lasix, spironolactone, lisinopril and carvedilol. 3. Chronic atrial fibrillation * Rate controlled * Continue with carvedilol * anticoagulated with apixaban 4. Low blood pressure readings * The patient has chronically low blood pressure. * Patient mental status is good and has no signs or symptoms of septic shock 5. VTE prophylaxis: Low risk as patient is already on apixaban. No VTE prophylaxis indicated. Moderate protein calorie malnutrition: On nutritional supplement. Nutrition is consulted. Code Visit Inpatient E&M: 16818 [facility] L3
[2019-03-21] MEDS: Furosemide 40 MG Tablet PO (18:14)
[2019-03-21 18:47] LABS: M R Staph aureus DNA By PCR POSITIVE (Negative); Probe Check PASS
[2019-03-21 20:25] VITALS: BP 92/49; PULSE 97; RESP 18; TEMP 36.9; O2SAT 96
[2019-03-22 02:23] VITALS: BP 89/55; PULSE 99; RESP 16; TEMP 36.7; O2SAT 95
[2019-03-22] MEDS: traMADol 50 MG Tablet PO ×2 (02:40→09:36)
[2019-03-22 04:15] VITALS: BP 93/55; PULSE 88; RESP 18; TEMP 36.8; O2SAT 96
[2019-03-22 06:28] LABS: Anion Gap 6 (5-15); BUN 23 mg/dL (7-18); Chloride 108 mmol/L (98-107); Creatinine, Serum 0.92 mg/dL (0.70-1.30); EST Glomerular Filtration Rate 85 mL/min (>60); Est Glom Filt Rate - Afr Amer 102 mL/min (>60); Estimated Creatinine Clearance 62.58 ml/min; Glucose 95 mg/dL (74-106); Sodium Level 142 mmol/L (136-145)
[2019-03-22 06:30] LABS: Vancomycin, Trough Level 16.7 ug/mL (5.0-15.0)
[2019-03-22] MEDS: Vancomycin IV 1,000 MG/200 ML BAG 200 MG IV (07:02)
[2019-03-22 09:32] VITALS: BP 115/76; PULSE 115; RESP 18; TEMP 36.9; O2SAT 95
[2019-03-22] MEDS: Furosemide 40 MG Tablet PO (09:38)
[2019-03-22] MEDS: Aspirin E.C. 81 MG Tablet PO (09:38)
[2019-03-22] MEDS: APIXABAN 5 MG TABLET PO (09:38)
[2019-03-22] MEDS: Carvedilol 12.5 MG Tablet PO (09:38)
[2019-03-22] MEDS: Spironolactone 25 MG Tablet PO (09:38)
[2019-03-22] MEDS: Lisinopril 10 MG Tablet PO (09:39)
--- NOTE | 2019-03-22 11:05 | NURSING ---
wound photo: right lower leg
--- NOTE | 2019-03-22 11:22 | CASEMGMT ---
SW spoke w/pt and about POA/LW, let them know that the documents are not on file, encouraged them to bring in the forms as able in the future. TIMO Norris
--- NOTE | 2019-03-22 11:58 | CASEMGMT ---
SW spoke w/pt in room in regard to discharge plan. also present. SW inquired about pt going somewhere for rehab. Pt states that his right leg is locked up because he got too much rehab, and initially states he does not want therapy at all. Pt then spoke to SW about many of his medical issues, SW offered supportive listening. Pt then went on to speak to SW at length about his career. SW redirected pt to the plan at discharge. Pt spoke about losing weight and that his does not cook anymore. corrected pt and states she does cook, just not often. SW asked about Meals on Wheels. Initially pt seemed interested but then stated that they could have someone come in to cook for them if needed, and they can take care of this issue on their own. SW asked pt about home health care. Pt has had [facility] in the past, and is agreeable to referral to [facility] for both home therapy and nursing. SW let CM know that pt would like [facility] for therapy and nursing. No further social service needs at this time. TIMO Norris
--- NOTE | 2019-03-22 13:10 | CASEMGMT ---
Case Management Progress Note: Recommendation for [facility] PT/OT, Nurse for Wound Care. Patient refuses SNF and Plan for DC today. Patient preference [facility] and states he has [facility] Contact information at home. 1218- [facility] Order places and Called [facility] Cate at this time and left a 1302- Return call from Cate inquiring on Wound Care frequency, teaching to , and states start date of Monday. Aware Cm will discuss with provider and will call her back. 1309- Called Cate after s/w LUNA Perez and [facility] start date of Monday is fine as the dressing was changed today. Per Cate they will see patient Monday. CM to update Primary nurse Cori. Milad Lockett, NUNOCM
--- NOTE | 2019-03-22 13:12 | DCINST_ITS ---
- Discharge Diagnoses Current Active Problems: Current Active and Chronic Problems Leg wound, right (Acute) Ulcer of right lower extremity with fat layer exposed (Acute) Skin tear (Acute) You will use the following diet at home:: Cardiac Discharge Activity: Return to Normal Activity Call your doctor if your incision/area has: Continuous Slow Oozing, Sudden Increased Bleeding, Increased Pain/ Swelling, Increased Redness, Foul Smelling Discharge Call your doctor if you observe: Fever of 101 or Higher, Swelling in the ankles, Calf discomfort, Uncontrolled pain Cleanse incision/area with: Soap & Water - gentle prior to dressing changes; do not soak, - - change right leg dressing every 1 - 2 days with hydrogel, adaptic, 4x4 gauze, abdominal pad, kerlix. Additional Instructions: Change right leg ulcer sites every 1-2 days with hydrogel and cover with Adaptic, 4 x 4 gauze, abdominal pad and Kerlix. Home health to assist and teach with dressing changes. You will need to follow up with wound center as well. Allergies/Adverse Reactions: Allergies codeine Adverse Reaction (Verified 03/20/19 14:22) Nausea Medications to take at Discharge Aspirin E.C. [Ecotrin] 81 mg PO DAILY@0800 11/06/15 Apixaban [Eliquis] 5 mg PO BID 05/24/17 Carvedilol [Coreg (Beta Min)] 12.5 mg PO BID 05/24/17 Lisinopril [Zestril] 10 mg PO DAILY tablet 03/07/18 traMADol [Ultram] 50 mg PO Q6H PRN PRN 09/28/18 Furosemide [Lasix] 40 mg PO DAILY 09/29/18 Spironolactone 25 mg PO BID 09/29/18 Doxycycline [Vibramycin] 100 mg PO BID #10 cap 03/22/19 The following prescriptions were given: Doxycycline [Vibramycin] 100 mg PO BID #10 cap Transmission Status: Pending to [id number] Primary Care Physician: Phoebe Daniels MD [Primary Care Provider] - Please follow up with your Primary Care Physician in: 1 Week Test Results: Test results from this visit will be discussed in further detail at your follow- up appointment, if applicable. Please Follow Up With: Clinic,Wound When: Dr. Cleary within one week of discharge. Call if concerns; [phone] Proposed Discharge Date: 03/22/19
--- NOTE | 2019-03-22 13:19 | PCM.DC.SUM ---
<Ana Smith - Last Filed: 03/22/19 13:35> Discharge Date and Diagnosis Date of Admission: 03/20/19 Date of Discharge: 03/22/19 - Primary Discharge Diagnosis Active and Suspected Problems 1. Right leg ulcer with cellulitis, +MRSA 2. Right lower extremity skin tear secondary to fall prior to admission 3. Chronic debility/left yaibz-dme-mhbh amputation 4. Chronic systolic CHF 5. Chronic atrial fibrillation 6. Peripheral arterial occlusive disease 7. Chronic kidney disease stage III 8. Hypertension 9. 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) 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) Venous insufficiency (Chronic) CKD (chronic kidney disease) stage 3, GFR 30-59 ml/min (Chronic) Anemia (Chronic) 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) Delayed wound healing (Chronic) Nonischemic cardiomyopathy (Chronic) Chronic systolic CHF (congestive heart failure) (Chronic) Chronic atrial fibrillation (Chronic) Bilateral edema of lower extremity (Chronic) Open wounds involving multiple regions of lower extremity (Chronic) Neuropathic pain, leg, 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) Hospital Course and Treatment Consultations 03/20/19 16:40 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 Cleary- Podiatry Operations: None Procedures: None Summary of Care Provided: The patient is a 78 year old M admitted 03/20/2019 due to right lower extremity wound. 1. Right leg ulcer with cellulitis, +MRSA-right leg wound culture positive MRSA. Patient received IV vancomycin during admission. Wound does not appear acutely infected. Low-grade fever on admission. No leukocytosis. Doxycycline 100 mg twice daily for 5 days at discharge to complete course of antibiotics. Follow-up with wound center in [address] Cleary consulted during admission. Continue dressing changes every 1 to 2 days including washing with soap and water prior to dressing change, hydrogel, Adaptic, 4 x 4 gauze, abdominal pad and Kerlix. Home health at discharge. Follow-up with primary care provider in 1 week. 2. Right lower extremity skin tear secondary to fall prior to admission 3. Chronic debility/left lhdnb-wia-eoas amputation- PT/OT. Patient declined SNF/inpatient rehab. Agreeable to home health and home PT/OT. 4. Chronic systolic CHF-echo August 2015 with EF 35%. No acute CHF. Continue Lasix, spironolactone, lisinopril, carvedilol. Continue outpatient follow-up with cardiology as scheduled. 5. Chronic atrial fibrillation-continue Eliquis, carvedilol. 6. Peripheral arterial occlusive disease-continue aspirin regimen. 7. Chronic kidney disease stage III-at baseline. 8. Hypertension-stable, blood pressure initially hypotensive on admission, improved at discharge. Continue home carvedilol, Lasix, lisinopril, spironolactone regimen. 9. Moderate protein calorie malnutrition-recommend continued dietary supplementation. Patient seen and examined prior to discharge. Physical assessment as noted below. Patient is stable for discharge with follow up recommendations as noted above. This patient was seen by ELLY Jc under the supervision of Dr. Granger. - Physical Exam General: Alert, Oriented x3, Cooperative HEENT: Atraumatic, PERRLA, EOMI, Normocephalic Oral: - - Poor dentition Neck: Supple, No JVD, Negative Carotid Bruits Lungs: Clear to auscultation, Normal air movement Cardiovascular: - - Chronic atrial fibrillation, rate controlled Abdomen: Bowel Sounds Present, Soft, Non Tender, Non-Distended Extremities: No clubbing, No cyanosis, No edema, Capillary Refill Less than 3 Seconds, - - Status post left austp-avv-zfwm amputation. Skin: - - Right lower extremity wounds, dressing intact. Musculoskeletal: No Tenderness to Palpation of Joints or Extremities Neurological: Cranial nerves II-XII grossly intact, Neuro grossly intact Psych/Mental Status: Normal Affect, Appropriate Vital Signs Temp Pulse Resp BP Pulse Ox 98.5 F 115 H 18 115/76 95 03/22/19 09:32 03/22/19 09:32 03/22/19 09:32 03/22/19 09:32 03/22/19 09:32 Oxygen Delivery Method Room Air Weight: 145 lb 1.027 oz Body Mass Index (BMI) 19.1 Intake and Output for Last 24 Hours 03/20/19 03/21/19 03/22/19 23:59 23:59 23:59 Intake Total 648 / 648 1389 / 1389 740 / 740 Output Total 100 / 100 735 / 735 650 / 650 Balance 548 / 548 654 / 654 90 / 90 Microbiology Past 72 Hours 03/20/19 15:24 Gram Stain - Final Wound - Leg, Right Wound Culture - Final Meth. resistant Staph. aureus Laboratory Tests Past 24 Hrs 03/21/19 03/22/19 03/22/19 16:45 05:34 05:34 Sodium 142 Potassium 4.0 Chloride 108 H Carbon Dioxide 28.0 Anion Gap 6 BUN 23 H Creatinine 0.92 Estim Creat Clear Calc 62.58 Est GFR (MDRD) Af Amer 102 Est GFR (MDRD) Non-Af 85 BUN/Creatinine Ratio 25.0 H Glucose 95 Calcium 9.0 Vancomycin Trough 16.7 H MRSA (PCR) POSITIVE H Discharge Diet: Low fat/ Low Cholesterol Discharge Activity: Return to Normal Activity Call your doctor if your incision/area has: Continuous Slow Oozing, Sudden Increased Bleeding, Increased Pain/ Swelling, Increased Redness, Foul Smelling Discharge Call your doctor if you observe: Fever of 101 or Higher, Swelling in the ankles, Calf discomfort, Uncontrolled pain Cleanse incision/area with: Soap & Water - gentle prior to dressing changes; do not soak, - - change right leg dressing every 1 - 2 days with hydrogel, adaptic, 4x4 gauze, abdominal pad, kerlix. Home Medications: Medications to take at Discharge Aspirin E.C. [Ecotrin] 81 mg PO DAILY@0800 11/06/15 Apixaban [Eliquis] 5 mg PO BID 05/24/17 Carvedilol [Coreg (Beta Min)] 12.5 mg PO BID 05/24/17 Lisinopril [Zestril] 10 mg PO DAILY tablet 03/07/18 traMADol [Ultram] 50 mg PO Q6H PRN PRN 09/28/18 Furosemide [Lasix] 40 mg PO DAILY 09/29/18 Spironolactone 25 mg PO BID 09/29/18 Doxycycline [Vibramycin] 100 mg PO BID #10 cap 03/22/19 Following Prescrptions Were Given to Patient: Doxycycline [Vibramycin] 100 mg PO BID #10 cap [facility]: [id number] Primary Care Physician: Phoebe Daniels MD [Primary Care Provider] - Please follow up with your Primary Care Physician in: 1 Week Please Follow Up With: Clinic,Wound When: Dr. Cleary within one week of discharge. 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) Venous insufficiency (Chronic) CKD (chronic kidney disease) stage 3, GFR 30-59 ml/min (Chronic) Anemia (Chronic) 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) Delayed wound healing (Chronic) Nonischemic cardiomyopathy (Chronic) Chronic systolic CHF (congestive heart failure) (Chronic) Chronic atrial fibrillation (Chronic) Bilateral edema of lower extremity (Chronic) Open wounds involving multiple regions of lower extremity (Chronic) Neuropathic pain, leg, 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) Hospital Course and Treatment Consultations 03/20/19 16:40 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 He has contracture of right knee and attempt to transfer he fell down. The laceration in the left leg with increased serous drainage. Patient had temperature 100 Fahrenheit at urgent care and on the floor T-max 91.6 Fahrenheit. 1. Right lower leg ulcer with low-grade fever: Patient does not have leukocytosis, redness or other signs of cellulitis on his right leg. Right leg wound culture shows MRSA. MRSA PCR positive. Patient has copious serous drainage. Right leg swelling has improved. It seems patient has MRSA skin colonization rather than real deep wound infection. 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 The patient had 3 days of IV vancomycin here just to switch to doxycycline for 5 more days. Follow-up in wound center. Patient seen by Dr. Lynn and recommended daily dressing with Adaptic and hydrogel. Advised pressure off and avoid lying on the lateral side of his leg. 2. Heart failure with reduced EF with peripheral vascular disease. Echo in August 2015 reported as EF 35%. Currently clinically compensated. Continue Lasix, spironolactone, lisinopril and carvedilol. 3. Chronic atrial fibrillation Rate controlled Continue with carvedilol anticoagulated with apixaban 4. Low blood pressure readings The patient has chronically low blood pressure. Patient mental status is good and has no signs or symptoms of septic shock 5. VTE prophylaxis: Low risk as patient is already on apixaban. No VTE prophylaxis indicated. Moderate protein calorie malnutrition: On nutritional supplement. Discharge medication reconciliation done. Discharge follow-up instructions completed. Discharge process discussed with the patient and patient's and all questions were answered to patient's satisfaction.The patient refused SNF recommended by physical therapist. Discharged home with home health care. Total time spent, exact 35 minutes on discharge meds reconciliation, examination, review of imaging and blood test and discussion with the patient on follow-up instructions. [] Subjective: Seen and examined. Discussed with the patient and patient's regarding PT and OT. Discussed regarding the wound. Patient has history of MRSA infection of left foot for which later on he had amputation, AKA. Patient has not been using his prosthesis. Objective: General: Alert, Oriented x3, Cooperative HEENT: Atraumatic, PERRLA, EOMI, Normocephalic Neck: Supple, No JVD, Negative Carotid Bruits Lungs: Clear to auscultation, No rhonchi, No wheeze, No rales, Diminished - Air entry is diminished in bilateral lung bases. Cardiovascular: Regular rate, Regular Rhythm, Normal S1, Normal S2, No murmurs Abdomen: Bowel Sounds Present, Soft, Non Tender Extremities: No edema, Capillary Refill Less than 3 Seconds Skin: Lacerated wound over middle of right leg with skin flap. Photo reviewed. Leg edema has improved. Musculoskeletal: Arthritic Changes, Muscle Wasting, Tenderness, Left above-knee amputation. No obvious ulcer/skin breakdown seen in left AKA stump. Right knee has contracture. Dressing on the left lower leg. Right foot skin is dry and shriveled. Neurological: Cranial nerves II-XII grossly intact, Deep Tendon Reflexes 2+/4 and Symmetrical, Neuro grossly intact Psych/Mental Status: Normal Affect, Appropriate - Physical Exam Vital Signs Temp Pulse Resp BP Pulse Ox 98.5 F 115 H 18 115/76 95 03/22/19 09:32 03/22/19 09:32 03/22/19 09:32 03/22/19 09:32 03/22/19 09:32 Oxygen Delivery Method Room Air Weight: 145 lb 1.027 oz Body Mass Index (BMI) 19.1 Intake and Output for Last 24 Hours 03/20/19 03/21/19 03/22/19 23:59 23:59 23:59 Intake Total 648 / 648 1389 / 1389 740 / 740 Output Total 100 / 100 735 / 735 650 / 650 Balance 548 / 548 654 / 654 90 / 90 Microbiology Past 72 Hours 03/20/19 14:50 Blood Culture - Preliminary Blood Culture (Wb) - Left Forearm No growth in 48 hours. 03/20/19 14:50 Blood Culture - Preliminary Blood Culture (Wb) - Anticubital Right No growth in 48 hours. 03/20/19 15:24 Gram Stain - Final Wound - Leg, Right Wound Culture - Final Meth. resistant Staph. aureus Laboratory Tests Past 24 Hrs 03/21/19 03/22/19 03/22/19 16:45 05:34 05:34 Sodium 142 Potassium 4.0 Chloride 108 H Carbon Dioxide 28.0 Anion Gap 6 BUN 23 H Creatinine 0.92 Estim Creat Clear Calc 62.58 Est GFR (MDRD) Af Amer 102 Est GFR (MDRD) Non-Af 85 BUN/Creatinine Ratio 25.0 H Glucose 95 Calcium 9.0 Vancomycin Trough 16.7 H MRSA (PCR) POSITIVE H Code Visit Inpatient E&M: 24573 Disch Hosp
--- NOTE | 2019-03-25 16:35 | CASEMGMT ---
NUNO CM Discharge Follow-up Phone Call: KRAIG: Lupillo Strata: 3 Call Date: 03/25/19 Discharge Date: 03/22/19 Time of Call: 1615 Duration: 20 minutes ? Admitting Diagnosis: Rt leg ulcer with cellulitis Discharge follow-up call made to patient. Pt states he has been doing well since discharge. Reported the home health RN visited yesterday and completed the dressing change. Stated the plan is for [id number] dressing changes/visits. Reported that home PT visited today but described that his leg is frozen and he is not able to complete therapy with this leg. States he uses a sliding board to get in and out of his wheelchair and bed. Pt had not made his appointment with the wound center. Phone number provided and he planned to call after our call ended. Pt denied any further questions or concerns. Mayco Rizzo RN
--- NOTE | 2019-03-26 14:21 | CASEMGMT ---
NUNO BRANCH DC PHONE CALL DC DATE: 03/22/19 DC Disposition: Home with Home Care, [facility] Diagnosis on Discharge: R Leg ulcer cellulitis. LACE/STRATA: 07/21 Intro role of CM to patient via home. Pt very talkative, discussed baseball, book on psychology and his previous job. Attempted to refocus pt frequently, but he had difficulty staying on topic of dc. Pt stated he is doing well and no questions. Daniel SAHUN RN AC
== END 2019-03-22 14:40 | disposition home health service (06) | DRG 605 ==
LOC: ED 15:24 → PCU 16:09
PROVIDERS: Emergency Provider Emergency Medicine; Family Provider Internal Medicine; PCP Internal Medicine; Visit Provider Internal Medicine
DX: S81.811A Laceration without foreign body, right lower leg, initial encounter (principal); L03.115 Cellulitis of right lower limb; I50.22 Chronic systolic (congestive) heart failure; I13.0 Hypertensive heart and chronic kidney disease with heart failure and stage 1 through stage 4 chronic kidney disease, or unspecified chronic kidney disease; E44.0 Moderate protein-calorie malnutrition; Z68.1 Body mass index [BMI] 19.9 or less, adult; B95.62 Methicillin resistant Staphylococcus aureus infection as the cause of diseases classified elsewhere; W05.0XXA Fall from non-moving wheelchair, initial encounter; Y92.039 Unspecified place in apartment as the place of occurrence of the external cause; I25.10 Atherosclerotic heart disease of native coronary artery without angina pectoris; Z89.612 Acquired absence of left leg above knee; Z87.891 Personal history of nicotine dependence; I48.2 Chronic atrial fibrillation; Z79.01 Long term (current) use of anticoagulants; I73.9 Peripheral vascular disease, unspecified; M24.561 Contracture, right knee; Z99.3 Dependence on wheelchair; R53.81 Other malaise; N18.3 Chronic kidney disease, stage 3 (moderate); Z86.14 Personal history of Methicillin resistant Staphylococcus aureus infection
CPT/HCPCS: 36415; 80048; 80053; 80202; 83605; 85025; 87040; 87070; 87077; 87186; 87205; 87641; 93005; 97162; 97166; 97802; 99285; J7030; J7050; A4216; J0295

== ENCOUNTER 2019-04-03 14:35 | Inpatient (IN) | payer MEDICARE, OTHER, SELFPAY ==
[2019-04-03] VITALS (16 sets, daily range): BP systolic 65–156; BP diastolic 32–117; PULSE 60–106; RESP 16–22; TEMP 36.5–36.9; O2SAT 86–99; BMI 23.7; BMI 19.1; BMI 20.4
--- NOTE | 2019-04-03 15:12 | EKG12_ITS ---
Test Reason : ARRHYTHMIA Blood Pressure : / mmHG Vent. Rate : 089 BPM Atrial Rate : 416 BPM P-R Int : 000 ms QRS Dur : 118 ms QT Int : 400 ms P-R-T Axes : 000 074 068 degrees QTc Int : 486 ms Atrial fibrillation with premature ventricular or aberrantly conducted complexes Incomplete right bundle branch block Nonspecific T wave abnormality Prolonged QT Abnormal ECG Confirmed by DEVYN OROURKE, MANNY ([id number]), rewrite editor REECE PARISH ([id number]) on 04/08/2019 12:25:36 PM Referred By: Katie Cueto Confirmed By:MANNY SHEPARD MD
--- NOTE | 2019-04-03 15:31 | ED.DCSUM_ITS ---
- ER Visit Summary Date of Service: 04/03/19 Chief Complaint: [Hypotension] History of Present Illness: The patient is a 78 M [presents to the emergency department with complaint of low blood pressure that the visiting nurse noted today. Patient has chronic wound to the right lower extremity that she was t here to address and noted that his blood pressure was 70/40. Patient denies any symptoms. He denies fever or recent illness. He denies any blood in stool or black tarry stool. He denies feeling lightheaded or dizzy. Patient states that his blood pressure tends to run on the low side. Patient denies abdominal pain or urinary symptoms. Denies any chest pain. Patient denies shortness of breat h. Patient eating and drinking normally.] Physical Examination: [HEENT-PERRLA, EOMI. Cranial nerves II through XII grossly intact. TMs clear. Mucous membranes moist. No adenopathy. Cardiovascular-regular rate and rhythm without murmur or ectopy Lungs-clear to auscultation, chest wall stable without crepitus or subcu emphysema Abdomen-normoactive bowel sounds, soft, nontender, no rebound or rigidity, no peritoneal signs. Extremities-intact ?4, normal range of motion, normal pulses, atraumatic. Patient has a left ygijw-dgt-doav amputation. Evaluation of the right leg reveals that he has chronic wounds from just below the knee to the ankle. Does have some faint erythema to the extremity. Slightly warm to the touch. Patient did have the leg wrapped initially. Patient neurovascular intact.] Test Results: [Repeat blood pressure in the emergency department now 156/117. Heart rate initially documented as 43 is now in the 90s.] EKG obtained on arrival shows atrial fibrillation with a ventricular rate of [address] changes. When compared with prior EKG from March 20, 2019 no new changes noted. CBC with digital count of 9.8, hemoglobin 12, hematocrit 37, platelets 349. Chemistries unremarkable. BUN was 46 and creatinine 1.68. Troponin is less than 0.15. Lactate ordered and pending. Patient also had blood cultures ordered and pending. Emergency Department Course and Treatment: [She was ordered a liter normal same fluid bolus. After the initial elevated blood pressure his blood pressure did drop again into the 70s systolic. Patient continues to be asymptomatic.] Treatment Plan: [Admit for IV hydration] Disposition: [Admit] Impression: [Hypotension Dehydration Acute kidney injury] This note was generated with [employer] dictation software. It may contain incorrect words, spelling, and punctuation that were not noted in review of the chart prior to signing ED Disposition - Plan for ED Patient: Referrals: Phoebe Daniels MD [Primary Care Provider] -
[2019-04-03] MEDS: 0.9% Normal Saline 1,000 ML 150 ML IV (15:44)
[2019-04-03 15:47] LABS: Basophil# 0.03 X10^3/uL; Basophil% 0.3 % (0-1); Eosinophil# 0.15 X10^3/uL; Eosinophils% 1.5 % (0-5); Hematocrit 37.5 % (40-54); Lymphocyte % 18.4 % (19-41); Mean Corpuscular Hgb 29.9 pg (27.0-32.0); Mean Corpuscular Volume 93.5 fL (80-94); Monocyte# 0.81 X10^3/uL; Monocyte% 8.3 % (0-10); NRBC Flagged by Analyzer 0 % (0-5); Neutrophil # 6.98 X10^3/uL (2.7-7.7); Neutrophil % 71.2 % (47-70); Platelet Count 349 K/mm3 (150-450); RBC Distribution Width CV 14.6 % (11.6-14.6); RBC Distribution Width SD 50.4 fl (35.1-43.9); Red Blood Count 4.01 M/mm3 (4.6-6.2); White Blood Count 9.8 K/mm3 (4.4-11.0)
--- NOTE | 2019-04-03 15:56 | ED.RN ---
pt with right leg stasis ulcers chronic for three years. pt reports hx of mrsa. largest wound measurement listed in assessment, area is blackened and weepy. unable to measure depth.
[2019-04-03 16:01] LABS: Anion Gap 9 (5-15); BUN 46 mg/dL (7-18); BUN/Creat Ratio 27.4 RATIO (10-20); Calcium,Total 9.1 mg/dL (8.5-10.1); Chloride 104 mmol/L (98-107); Creatinine, Serum 1.68 mg/dL (0.70-1.30); EST Glomerular Filtration Rate 42 mL/min (>60); Est Glom Filt Rate - Afr Amer 51 mL/min (>60); Estimated Creatinine Clearance 34.26 ml/min; Glucose 79 mg/dL (74-106); Potassium 3.6 mmol/L (3.5-5.1); Sodium Level 141 mmol/L (136-145)
[2019-04-03] MEDS: 0.9% Normal Saline 1,000 ML 999 ML IV (16:19)
--- NOTE | 2019-04-03 16:40 | NURSING ---
ICU OBS HYPOTENSIOIN, ACUTE KIDNEY INJURY
--- NOTE | 2019-04-03 16:42 | HP.PCM_ITS ---
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 He was admitted through the ED on 04/03/2019 with a complaint of hypotension. Patient states his visiting nurse came home to assess him and noted that his blood pressure was low. Blood pressure was 70/40 and was seen when rechecked so he was brought into the ED. He has no complaints and feels totally fine. He states he took his blood pressure medication this morning. He denies any lightheadedness or dizziness, palpitations, dizziness, chest pain, shortness of breath, abdominal pain, diarrhea or vomiting. Review of systems is otherwise negative. He states he has had such low blood pressure readings in the past but has always been asymptomatic. At time of review, blood pressure was 78/54, was otherwise stable. Chemistry showed creatinine of 1.68, with baseline of ~0.9. CBC was unremarkable. He is being admitted to be managed for hypotension, probably medication induced. 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) 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) Venous insufficiency (Chronic) CKD (chronic kidney disease) stage 3, GFR 30-59 ml/min (Chronic) Anemia (Chronic) 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) Delayed wound healing (Chronic) Nonischemic cardiomyopathy (Chronic) Chronic systolic CHF (congestive heart failure) (Chronic) Chronic atrial fibrillation (Chronic) Bilateral edema of lower extremity (Chronic) Open wounds involving multiple regions of lower extremity (Chronic) Neuropathic pain, leg, 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 [Ecotrin] 81 mg PO DAILY@0800 11/06/15 Apixaban [Eliquis] 5 mg PO BID 05/24/17 Carvedilol [Coreg (Beta Min)] 12.5 mg PO BID 05/24/17 Lisinopril [Zestril] 10 mg PO DAILY tablet 03/07/18 traMADol [Ultram] 50 mg PO Q6H PRN PRN 09/28/18 Furosemide [Lasix] 40 mg PO DAILY 09/29/18 Spironolactone 25 mg PO BID 09/29/18 Surgical History: appendectomy, herniorrhaphy, - - Hand surgery. left AKA Psychiatric History: No pertinent psych hx Lives: Alone Smoking Status: Former smoker Alcohol: Occasional Drugs: None - *Family History Maternal History Items: Dementia Paternal History Items: - - venous ulcers Review of Systems Constitutional: Denies: Chills, Fever, Malaise, Weakness, Weight Change, Fatigue Eyes: Denies: Blurred vision HEENT: Denies: Head Aches, Sinus Congestion, Sinus Drainage Cardiovascular: Denies: Chest Pain, Chest Pressure, Chest Tightness, Palpitations Respiratory: Denies: Cough, Shortness of Breath, Shortness of breath at rest, Shortness of breath upon exertion, Sputum production Gastrointestinal: Denies: Abdominal Pain, Nausea, Vomiting Genitourinary: Denies: Dysuria Musculoskeletal: Denies: Joint Pain, Joint Tenderness Skin: Denies: Rash, Wounds Neurological: Denies: Numbness, Tingling, Focal weakness Psychiatric: Denies: Anxiety, Depression, Homicidal Ideations, Suicidal Ideations Hematologic/ Lymphatic: Denies: Easy Bruising, Easy Bleeding VTE Information - Inpt Only VTE Present on Admission: No VTE Pharm Prophylaxis ordered?: Yes - Physical Exam General: Alert, Oriented x3, Cooperative, No apparent distress HEENT: Atraumatic, PERRLA, EOMI, Normocephalic Oral: Moist Mucosa Neck: Supple, No JVD, Negative Carotid Bruits Lungs: Clear to auscultation, Normal air movement Cardiovascular: Regular rate, Regular Rhythm, Normal S1, Normal S2, No murmurs Abdomen: Bowel Sounds Present, Soft, Non Tender, Non-Distended, No Hepato- splenomegaly Extremities: No clubbing, No cyanosis, No edema, Capillary Refill Less than 3 Seconds Skin: - - erythema of RLE which is chronic, RLE wrapped in bandage Musculoskeletal: No Tenderness to Palpation of Joints or Extremities, - - LLE BKA Lymphatic: No Cervical, Supraclavicular, or Inguinal Adenopathy Neurological: Cranial nerves II-XII grossly intact Psych/Mental Status: Normal Affect, Alert and oriented to time, place, person, mood and affect Vital Signs Temp Pulse Resp BP Pulse Ox 98.4 F 83 19 H 95/64 94 04/03/19 16:27 04/03/19 16:27 04/03/19 16:27 04/03/19 16:27 04/03/19 16:27 Oxygen Delivery Method Room Air Weight: 145 lb Body Mass Index (BMI) 19.1 Laboratory Tests Past 24 Hrs 04/03/19 04/03/19 04/03/19 15:29 15:29 15:29 WBC 9.8 RBC 4.01 L Hgb 12.0 L Hct 37.5 L MCV 93.5 MCH 29.9 MCHC 32.0 RDW Std Deviation 50.4 H RDW Coeff of Reinier 14.6 Plt Count 349 MPV 10.0 Immature Gran % (Auto) 0.300 Neut % (Auto) 71.2 H Lymph % (Auto) 18.4 L [place] % (Auto) 8.3 Eos % (Auto) 1.5 Baso % (Auto) 0.3 Absolute Neuts (auto) 7.0 Absolute Lymphs (auto) 1.80 Absolute Nucleated RBC 0.00 Nucleated RBC % 0 Sodium 141 Potassium 3.6 Chloride 104 Carbon Dioxide 28.0 Anion Gap 9 BUN 46 H Creatinine 1.68 H Estim Creat Clear Calc 34.26 Est GFR (MDRD) Af Amer 51 L Est GFR (MDRD) Non-Af 42 L BUN/Creatinine Ratio 27.4 H Glucose 79 Lactic Acid Pending Calcium 9.1 Troponin I < 0.015 Assessment/Plan All Active Problems Leg wound, right (Acute) Ulcer of right lower extremity with fat layer exposed (Acute) Skin tear (Acute) Septic shock (Acute) Syncope (Acute) Cellulitis of leg without foot, left (Acute) 78-year-old male admitted with a complaint of hypotension. 1. Hypotension, probably medication induced * pateint took his BP meds today * BP in the 70s on admission, came up to 90s with IVF * admit to ICU for observation * hydrate with IVF NS @ 120cc/hr x 1 bag. Monitor BP and fluids closely o/a of history of CHF. * consult critical care * echo from 2014 showed EF of 35%, with moderate global hypokinesis of LV, and severely enlarged LA as well as moderately enlarged RA. Moderate 2+ mitral valve insufficiency and mild to moderate 1-2+ tricuspid valve insufficiency. * will repeat 2D echo * 2. SHANA: Cr is 1.68, baseline is ~ 0.9. Likely pre-renal due to hypotension. Hydrate with IVF 3. HFrEF: EF of 35%. On lasix, spironolactone, lisinopril and carvedilol. Will hold all these for now due to hypotension. 4. Chronic A. fib: Rate controlled. On Eliquis and carvedilol. Will hold carvedilol for now. 5. Hypertension: BP meds on hold is under 1. Patient was actually recently discharged on 03/22/2019 and he was also hypotensive at admission. Will hold his BP meds for now. 6. Moderate protein calorie malnutrition: BMI is 19. Consult nutrition. 7. Debility due to left BKA: due to MRSA infection. PT/OT on board DVT prophylaxis: on eliquis Code status: full code. * Patient counseled extensively about different types of CODE STATUS including f ull code, DNR CCA and DNR CCA. Patient elects to be full code. Total [id number] time 16 minutes. Code Visit Inpatient E&M: 21640 Init Hosp L3 Procedures: 65751 Advncd Care Plan 30 Min
--- NOTE | 2019-04-03 16:47 | NURSING ---
ICU 3
[2019-04-03 16:50] LABS: Lactic Acid 2.8 mmol/L (0.4-2.0)
[2019-04-03] MEDS: 0.9% Normal Saline 1,000 ML 125 ML IV (17:50)
[2019-04-03 19:35] LABS: Reflex Lactate? Y
[2019-04-03] MEDS: traMADol 50 MG Tablet PO (21:12)
[2019-04-03] MEDS: Menthol/Lanolin/Calamine/Znox 113 GM Tube 1 APPLIC TOPICAL (21:13)
[2019-04-03] MEDS: Nystatin Powder 15gm Bottle 1 APPLIC TOPICAL (21:13)
[2019-04-03] MEDS: APIXABAN 5 MG TABLET PO (21:13)
[2019-04-03 21:55] LABS: Lactic Acid 1.3 mmol/L (0.4-2.0)
[2019-04-04] VITALS (11 sets, daily range): BP systolic 98–140; BP diastolic 51–98; PULSE 90–102; RESP 15–25; TEMP 36.6–36.7; O2SAT 95–100
[2019-04-04] MEDS: 0.9% Normal Saline 1,000 ML 125 ML IV (02:38)
[2019-04-04 04:22] LABS: Absolute Neutrophil Count 6.6 X10^3/uL (2.0-7.7); Basophil# 0.04 X10^3/uL; Basophil% 0.4 % (0-1); Eosinophil# 0.08 X10^3/uL; Eosinophils% 0.9 % (0-5); Hematocrit 37.7 % (40-54); Lymphocyte % 18.5 % (19-41); Mean Corp Hgb Conc 31.8 g/dL (32-36); Mean Corpuscular Hgb 30.6 pg (27.0-32.0); Mean Corpuscular Volume 96.2 fL (80-94); Mean Platelet Vol. 10.3 fl (6.2-12.0); Monocyte# 0.76 X10^3/uL; Monocyte% 8.3 % (0-10); NRBC Flagged by Analyzer 0 % (0-5); Neutrophil # 6.58 X10^3/uL (2.7-7.7); Neutrophil % 71.6 % (47-70); Platelet Count 302 K/mm3 (150-450); RBC Distribution Width CV 14.7 % (11.6-14.6); RBC Distribution Width SD 52.2 fl (35.1-43.9); Red Blood Count 3.92 M/mm3 (4.6-6.2); White Blood Count 9.2 K/mm3 (4.4-11.0)
[2019-04-04 04:51] LABS: Anion Gap 6 (5-15); BUN 38 mg/dL (7-18); BUN/Creat Ratio 29.5 RATIO (10-20); Calcium,Total 8.7 mg/dL (8.5-10.1); Chloride 112 mmol/L (98-107); Creatinine, Serum 1.29 mg/dL (0.70-1.30); EST Glomerular Filtration Rate 57 mL/min (>60); Est Glom Filt Rate - Afr Amer 69 mL/min (>60); Estimated Creatinine Clearance 47.55 ml/min; Glucose 93 mg/dL (74-106); Potassium 4.4 mmol/L (3.5-5.1); Sodium Level 143 mmol/L (136-145)
--- NOTE | 2019-04-04 05:55 | ECHOD_ITS ---
Reason For Study: A. fib/flutter Procedure This was a 2D Doppler, Color Flow transthoracic echocardiogram. The study was technically difficult. Patient unable to lay on flat or on left side. Exam performed portable in ICU/CCU. Left Ventricle Normal size and thickness. The estimated ejection fraction is 60 %. Unable to assess diastolic dysfunction. No regional wall motion abnormalities noted. Right Ventricle Mildly dilated right ventricle. Normal systolic function. Atria The left atrium is mildly enlarged. The right atrium is mildly enlarged. No doppler evidence for ASD. Mitral Valve There is no mitral valve stenosis. Mild-Moderate (1-2+) mitral valve insufficiency. Tricuspid Valve There is no tricuspid stenosis. Moderate (2+) tricuspid valve insufficiency. Pulmonary artery systolic pressure is 30 mmHg. Aortic Valve Trisinus/trileaflet aortic valve. There is no aortic stenosis. No aortic valve insufficiency. Pulmonic Valve There is no pulmonic valvular stenosis. No pulmonic valve insufficiency. Great Vessels Normal aortic root. Pericardium/Pleural No pericardial effusion. MMode/2D Measurements & Calculations LVIDd: 4.0 cm IVSd: 1.0 cm Ao root diam: 3.5 cm LVIDs: 2.6 cm LVPWd: 1.1 cm RVDd: 3.8 cm FS: 33.9 % LAV(MOD-bp): 79.0 ml LA A4 area: 22.2 cm2 LA dimension(2D): 3.8 cm LAV(MOD-bp) Indexed: 41.0 ml/m2 LAV(MOD-sp2): 72.6 ml LAV(MOD-sp4): 64.4 ml RA A4 area: 19.6 cm2 Doppler Measurements & Calculations MV E max katherine: 92.9 cm/sec Ao V2 max: 101.8 cm/sec LV V1 max: 88.3 cm/sec Ao max P.2 mmHg LV V1 max P.1 mmHg PA V2 max: 72.7 cm/sec TR max katherine: 235.1 cm/sec TR max P.2 mmHg Interpretation Summary The estimated ejection fraction is 60 %. Unable to assess diastolic dysfunction. Moderate (2+) tricuspid valve insufficiency. Mild-Moderate (1-2+) mitral valve insufficiency. Pulmonary artery systolic pressure is 30 mmHg. Ordering Physician: Katie Cueto Referring Physician: Katie Cueto Performed By: Carola Rivas RDCS
--- NOTE | 2019-04-04 07:16 | PCM.PN.HOSP ---
Vitals/I&O's: Vital Signs Temp Pulse Resp BP Pulse Ox 97.8 F 98 18 99/59 L 98 04/04/19 04:00 04/04/19 06:00 04/04/19 06:00 04/04/19 06:00 04/04/19 06:00 Oxygen Delivery Method Room Air Weight: 154 lb 15.759 oz Body Mass Index (BMI) 20.4 Intake and Output for Last 24 Hours 04/02/19 04/03/19 04/04/19 23:59 23:59 23:59 Intake Total 1994 Output Total 450 / 450 Balance 1545 / 1545 Laboratory Results 04/03/19 15:29: WBC 9.8, RBC 4.01 L, Hgb 12.0 L, Hct 37.5 L, MCV 93.5, MCH 29.9, MCHC 32.0, RDW Std Deviation 50.4 H, RDW Coeff of Reinier 14.6, Plt Count 349, MPV 10.0, Immature Gran % (Auto) 0.300, Neut % (Auto) 71.2 H, Lymph % (Auto) 18.4 L, [place] % (Auto) 8.3, Eos % (Auto) 1.5, Baso % (Auto) 0.3, Absolute Neuts (auto) 7.0, Absolute Lymphs (auto) 1.80, Absolute Nucleated RBC 0.00, Nucleated RBC % 0 04/03/19 15:29: Sodium 141, Potassium 3.6, Chloride 104, Carbon Dioxide 28.0, Anion Gap 9, BUN 46 H, Creatinine 1.68 H, Estim Creat Clear Calc 34.26, Est GFR (MDRD) Af Amer 51 L, Est GFR (MDRD) Non-Af 42 L, BUN/Creatinine Ratio 27.4 H, Glucose 79, Calcium 9.1, Troponin I < 0.015 04/03/19 15:29: Lactic Acid 2.8 H 04/03/19 20:00: Lactic Acid Cancelled 04/03/19 21:10: Lactic Acid 1.3 04/04/19 04:00: WBC 9.2, RBC 3.92 L, Hgb 12.0 L, Hct 37.7 L, MCV 96.2 H, MCH 30.6, MCHC 31.8 L, RDW Std Deviation 52.2 H, RDW Coeff of Reinier 14.7 H, Plt Count 302, MPV 10.3, Immature Gran % (Auto) 0.300, Neut % (Auto) 71.6 H, Lymph % (Auto) 18.5 L, [place] % (Auto) 8.3, Eos % (Auto) 0.9, Baso % (Auto) 0.4, Absolute Neuts (auto) 6.6, Absolute Lymphs (auto) 1.70, Absolute Nucleated RBC 0.00, Nucleated RBC % 0 04/04/19 04:00: Sodium 143, Potassium 4.4, Chloride 112 H, Carbon Dioxide 25.0, Anion Gap 6, BUN 38 H, Creatinine 1.29, Estim Creat Clear Calc 47.55, Est GFR (MDRD) Af Amer 69, Est GFR (MDRD) Non-Af 57 L, BUN/Creatinine Ratio 29.5 H, Glucose 93, Calcium 8.7 Current Medications Apixaban (Eliquis) 5 mg PO BID [facility] Last Admin: 04/03/19 21:13 Dose: 5 mg Documented by: Aspirin (Ecotrin) 81 mg PO DAILY@0800 [facility] Calamine/Phenol (Calmoseptine Ointment) 1 applic TOPICAL BID [facility]; Protocol Last Admin: 04/03/19 21:13 Dose: 1 applicatio Documented by: Dextrose (D50w Syringe) 0 gm IV X1 PRN; Protocol PRN Reason: Hypoglycemia Glucagon () 1 mg IM .X1 PRN PRN Reason: Hypoglycemia Sodium Chloride () 1,000 mls @ 125 mls/hr IV .Q8H [facility] Stop: 04/04/19 08:59 Last Admin: 04/04/19 02:38 Dose: 125 mls/hr Documented by: Nystatin (Mycostatin Powder) 1 applic TOPICAL BID [facility]; Protocol Last Admin: 04/03/19 21:13 Dose: 1 applic Documented by: Sodium Chloride () 10 - 40 ml IV UD PRN PRN Reason: SALINE FLUSH Tramadol HCl (Ultram) 50 mg PO Q6H PRN PRN PRN Reason: PAIN Last Admin: 04/03/19 21:12 Dose: 50 mg Documented by: Medical Necessity - Tobacco Use Smoking Status: Former smoker Tobacco Use: Cigars Assessment/Plan All Active Problems Leg wound, right (Acute) Ulcer of right lower extremity with fat layer exposed (Acute) Skin tear (Acute) Septic shock (Acute) Syncope (Acute) Cellulitis of leg without foot, left (Acute)
--- NOTE | 2019-04-04 08:59 | PCM.DC ---
- Discharge Diagnoses Current Active Problems: (1) Hypotension, Asymptomatic, Secondary to Medications (2) Recent admit with Stable appearing RLE Wound (s/p skin tear w/ fall, MRSA cellulitis treated w/ doxycycline recently, wound care w/ Dr. 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 (4) Chronic debility, s/p L AKA with PAD (5) Chronic Atrial Fibrillation (6) CKD stage III (7) Hypertension (8) Moderate-Severe Protein-Calorie Malnutrition You will use the following diet at home:: Cardiac Your food should be the consistency of: Regular Your liquids should be the consistency of: Regular/Thin Discharge Activity: - - Please slowly resume prior normal daily activities. Strongly encourage fall precautions given fall history and recent right lower extremity injury upon prior fall. May resume sexual activity in: No Restrictions Call your doctor if your incision/area has: Continuous Slow Oozing, Sudden Increased Bleeding, Increased Pain/ Swelling, Increased Redness, Foul Smelling Discharge, Swelling at the incision site Call your doctor if you observe: Fever of 101 or Higher, Inability to urinate, Inability to have a bowel movement, Shortness of breath, Dizziness, Fainting spells, Chest pain, Uncontrolled pain, - - Persistent hypotension or conversely uncontrolled hypertension given medication reduction. Additional Dressing/Incision Instructions:: Continue dressing care per [facility], Wound RN and Dr. Cleary direction. Last change on 04/04/19 AM per Wound RN in hospital with similar appearance to prior examination. Instructions: Low Blood Pressure (Hypotension), Preventing Falls: Are You At Risk of Falling?, Preventing Falls: Making Changes in Your Living Space, Preventing Falls: Moving Safely Out of a Chair and Bed Additional Instructions: Cardiac Medication Changes: Per discussion with Cardiology who you will see outpatient, your coreg has been discontinued and you have been transitioned to Toprol XL which should reduce your blood pressure less but continue to treat your underlying cardiac disease. Currently, we will hold your lisinopril and spironolactone but closely monitor your blood pressures daily and bring a log to your first Cardiology visit to assist in determining your best new regimen. You may use the lasix as needed (40 mg orally daily as needed) for weight gain > 5 pounds or notable onset lower extremity swelling. If following discharge you have slowly notable elevated blood pressures consistently > 140/90 please contact the cardiology office earlier than your appointment to alter your medication regimen. Pending Tests on Discharge: Echocardiogram was obtained and resulting pending at discharge which will be reviewed this coming week during your cardiology visit. Allergies/Adverse Reactions: Allergies codeine Adverse Reaction (Verified 04/03/19 14:37) Nausea Medications to take at Discharge Aspirin E.C. [Ecotrin] 81 mg PO DAILY@0800 11/06/15 Apixaban [Eliquis] 5 mg PO BID 05/24/17 traMADol [Ultram] 50 mg PO Q6H PRN PRN 09/28/18 Furosemide [Lasix] 40 mg PO DAILY PRN #0 04/04/19 Menthol/Lanolin/Calamine/Znox [Calmoseptine Ointment] 1 applic TOPICAL BID PRN #1 tube 04/04/19 Metoprolol Succinate [Toprol Xl] 100 mg PO DAILY #30 tab.er.24h 04/04/19 Nystatin Powder [Mycostatin Powder] 1 applic TOPICAL BID #1 bottle 04/04/19 The following prescriptions were given: Menthol/Lanolin/Calamine/Znox [Calmoseptine Ointment] 1 applic TOPICAL BID PRN #1 tube PRN Reason: Prevention skin breakdown [facility]: [facility] Nystatin Powder [Mycostatin Powder] 1 applic TOPICAL BID #1 bottle Transmission Status: Pending to [facility] Metoprolol Succinate [Toprol Xl] 100 mg PO DAILY #30 tab.er.24h Transmission Status: Pending to [facility] Primary Care Physician: Phoebe Daniels MD [Primary Care Provider] - Please follow up with your Primary Care Physician in: Follow-up within 3-5 days to review admission. Test Results: Test results from this visit will be discussed in further detail at your follow-up appointment, if applicable. Please Follow Up With: Kwaku Lancaster MD When: Please follow-up this coming week as arranged. Proposed Discharge Date: 04/04/19
--- NOTE | 2019-04-04 09:09 | DS.PCM_ITS ---
Discharge Date and Diagnosis Date of Admission: 04/03/19 Date of Discharge: 04/04/19 - Primary Discharge Diagnosis (1) Hypotension, Asymptomatic, Secondary to Medications and poor intake, dehydration w/ Concurrent Acute Kidney Injury on #6 (2) Recent admit with Stable appearing RLE Wound (s/p skin tear w/ fall, MRSA cellulitis treated w/ doxycycline recently, wound care w/ Dr. 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) Venous insufficiency (Chronic) CKD (chronic kidney disease) stage 3, GFR 30-59 ml/min (Chronic) Anemia (Chronic) 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) Delayed wound healing (Chronic) Nonischemic cardiomyopathy (Chronic) Chronic systolic CHF (congestive heart failure) (Chronic) Chronic atrial fibrillation (Chronic) Bilateral edema of lower extremity (Chronic) Open wounds involving multiple regions of lower extremity (Chronic) Neuropathic pain, leg, 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) Hospital Course and Treatment Imaging Results: 04/04/19 05:55 Echo Complete [ECHO] AM (NON MEDS) Consultations 04/03/19 19:18 Consult: Onc/Wound/jute bag clipper Routine Comment: Reason for Consult:: RLE Discussed case with [facility] Dr. Lancaster to arrange follow-up, alter medications and assure appropriate t ransition as no current trapper bird (prior followed with Dr. 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 Cleary) who presented to the [facility] ED on 04/03/19 per skilled nursing professional recommendation as ongoing hypotension although he was asymptomatic at that time. Denied any recent worsening of his right lower extremity and states that he been compliant with dressing changes and follow-up with the wound care center. Upon initial ED presentation vital signs occluded blood pressure 65/32 which transiently improved in the ED with IV fluids to 156/117 but then again reduced to 74/52 following hydration, felt likely secondary medications as CBC with no WBC elevation or shift, stable appearing except evidence of dehydration, suspect poor intake with acute kidney injury w/ BUN/Cr 46/1.68 with prior baseline noted 0.8-1, initial lactic acid elevation 2.8, trop normal x 1, EKG without acute findings on ischemia. The patient was admitted to the ICU, continued aggressive hydration, home BP regimen was held with resolution of acute kidney injury with repeat BUN/Cr 38/1.29, LA normalized 1.3 and felt likely initially elevated secondary to dehydration with no obvious infection evident. Wound care nurse was contacted and evaluated patient on day of discharge as he had had wound care visit at that time and wound was well-appearing, similar to prior with continued outpatient follow-up planned. Given patient dramatic improvement more than expected felt acceptable for discharge to home with home therapies and discussed his case with cardiology group to obtain early follow-up as he he notes currently no longer having a trapper bird. Medication changes included transition off of Coreg to Toprol XL to assist with hypotension as well as discontinuation of lisinopril and spironolactone with transition of Lasix to as needed only with specific parameters until cardiology evaluation this coming week. She was amenable to these arrangements and also encouraged follow-up with his primary care physician and continued follow-up with wound care therapy as previously arranged with Dr. Cleary. DAY OF DISCHARGE PROGRESS NOTE: Subjective: Patient without acute event overnight per self and nursing report. Patient blood pressures following aggressive hydration have improved and remained stable although low normal. Discussed plan of care with patient and he is amenable to specific changes to his blood pressure regimen as well as specific colds with encouraged continued blood pressure monitoring at home with log to be brought to the cardiology office with these regimen changes. Discussed case with trapper bird who will see him in early follow-up in the office and is aware of his admission and again recommended these changes. Care evaluation this morning with noted stable appearing right lower extremity. Patient denies fever, chills, nausea, emesis, abdominal pain, chest pain or dyspnea on the lightheadedness or dizziness. Patient agreeable to discharge to home. Patient will be discharged with follow-up with primary care physician within 3-5 days in addition to audiology early follow-up this coming week as well as encourage continued wound care rations and treatments. Objective: T 97.9, heart rate 95, BP 126/82, respiratory rate 18, 98% on room air. Physical Examination: General: awake, alert, oriented x 3 and cooperative, seated upright in the bed, NAD well-appearing, extremely talkative. Skin: normal color, turgor, no icterus, cyanosis except right anterior lateral lower leg with a cluster stasis ulcers with minimal drainage, mild yellow slough, pink wound bed appearance and right lower leg with recent skin tear with mild to moderate light yellow drainage, non-malodorous, mild necrotic tissue similar to prior specifically eschar with mild slough which is similar to recent evaluation per wound care nurse and considered stable. HEENT: AT/NC, EOMI, PERRLA, MMM. Lungs: CTA bilaterally, moderate effort, mild decrease BL bases, no rales, ronchi or wheezing; Heart: Regular rate and rhythm; no gallop, rub audible. Abdomen: soft, NTTP, ND, normal BS. Extremities: no cyanosis, clubbing, skin, status post left AKA. Neurological: patient awake, alert, oriented x 3; cognitive function appears intact upon questioning,; pupils equally reactive to light and accomodation; cranial nerves II-XII grossly normal, moving all 4 extremities limitations given left AKA and right lower extremity chronic wound, strength accordingly moderately globally decreased. Psychiatric: affect appears normal, talkative, not ill-appearing. No acute evidence of depressive or anxiety feelings. Assessment and Plan: Please see hospital summary above. - Physical Exam Vital Signs Temp Pulse Resp BP Pulse Ox 97.9 F 99 18 101/78 98 04/04/19 08:00 04/04/19 08:00 04/04/19 08:00 04/04/19 08:00 04/04/19 06:00 Oxygen Delivery Method Room Air Weight: 154 lb 15.759 oz Body Mass Index (BMI) 20.4 Intake and Output for Last 24 Hours 04/02/19 04/03/19 04/04/19 23:59 23:59 23:59 Intake Total 1994 Output Total 450 / 450 Balance 1545 / 1545 Laboratory Tests Past 24 Hrs 04/03/19 04/03/19 04/03/19 15:29 15:29 15:29 WBC 9.8 RBC 4.01 L Hgb 12.0 L Hct 37.5 L MCV 93.5 MCH 29.9 MCHC 32.0 RDW Std Deviation 50.4 H RDW Coeff of Reinier 14.6 Plt Count 349 MPV 10.0 Immature Gran % (Auto) 0.300 Neut % (Auto) 71.2 H Lymph % (Auto) 18.4 L [place] % (Auto) 8.3 Eos % (Auto) 1.5 Baso % (Auto) 0.3 Absolute Neuts (auto) 7.0 Absolute Lymphs (auto) 1.80 Absolute Nucleated RBC 0.00 Nucleated RBC % 0 Sodium 141 Potassium 3.6 Chloride 104 Carbon Dioxide 28.0 Anion Gap 9 BUN 46 H Creatinine 1.68 H Estim Creat Clear Calc 34.26 Est GFR (MDRD) Af Amer 51 L Est GFR (MDRD) Non-Af 42 L BUN/Creatinine Ratio 27.4 H Glucose 79 Lactic Acid 2.8 H Calcium 9.1 Troponin I < 0.015 04/03/19 04/03/19 04/04/19 20:00 21:10 04:00 WBC 9.2 RBC 3.92 L Hgb 12.0 L Hct 37.7 L MCV 96.2 H MCH 30.6 MCHC 31.8 L RDW Std Deviation 52.2 H RDW Coeff of Reinier 14.7 H Plt Count 302 MPV 10.3 Immature Gran % (Auto) 0.300 Neut % (Auto) 71.6 H Lymph % (Auto) 18.5 L [place] % (Auto) 8.3 Eos % (Auto) 0.9 Baso % (Auto) 0.4 Absolute Neuts (auto) 6.6 Absolute Lymphs (auto) 1.70 Absolute Nucleated RBC 0.00 Nucleated RBC % 0 Sodium Potassium Chloride Carbon Dioxide Anion Gap BUN Creatinine Estim Creat Clear Calc Est GFR (MDRD) Af Amer Est GFR (MDRD) Non-Af BUN/Creatinine Ratio Glucose Lactic Acid Cancelled 1.3 Calcium Troponin I 04/04/19 04:00 WBC RBC Hgb Hct MCV MCH MCHC RDW Std Deviation RDW Coeff of Reinier Plt Count MPV Immature Gran % (Auto) Neut % (Auto) Lymph % (Auto) [place] % (Auto) Eos % (Auto) Baso % (Auto) Absolute Neuts (auto) Absolute Lymphs (auto) Absolute Nucleated RBC Nucleated RBC % Sodium 143 Potassium 4.4 Chloride 112 H Carbon Dioxide 25.0 Anion Gap 6 BUN 38 H Creatinine 1.29 Estim Creat Clear Calc 47.55 Est GFR (MDRD) Af Amer 69 Est GFR (MDRD) Non-Af 57 L BUN/Creatinine Ratio 29.5 H Glucose 93 Lactic Acid Calcium 8.7 Troponin I Discharge Activity: - - Please slowly resume prior normal daily activities. Strongly encourage fall precautions given fall history and recent right lower extremity injury upon prior fall. May resume sexual activity in: No Restrictions Call your doctor if your incision/area has: Continuous Slow Oozing, Sudden Increased Bleeding, Increased Pain/ Swelling, Increased Redness, Foul Smelling Discharge, Swelling at the incision site Call your doctor if you observe: Fever of 101 or Higher, Inability to urinate, Inability to have a bowel movement, Shortness of breath, Dizziness, Fainting spells, Chest pain, Uncontrolled pain, - - Persistent hypotension or conversely uncontrolled hypertension given medication reduction. Additional Dressing/Incision Instructions:: Continue dressing care per Wound Care Center, Wound RN and Dr. Cleary direction. Last change on 04/04/19 AM per Wound RN in hospital with similar appearance to prior examination. Home Medications: Medications to take at Discharge Aspirin E.C. [Ecotrin] 81 mg PO DAILY@0800 11/06/15 Apixaban [Eliquis] 5 mg PO BID 05/24/17 traMADol [Ultram] 50 mg PO Q6H PRN PRN 09/28/18 Furosemide [Lasix] 40 mg PO DAILY PRN #0 04/04/19 Menthol/Lanolin/Calamine/Znox [Calmoseptine Ointment] 1 applic TOPICAL BID PRN #1 tube 04/04/19 Metoprolol Succinate [Toprol Xl] 100 mg PO DAILY #30 tab.er.24h 04/04/19 Nystatin Powder [Mycostatin Powder] 1 applic TOPICAL BID #1 bottle 04/04/19 Following Prescrptions Were Given to Patient: Menthol/Lanolin/Calamine/Znox [Calmoseptine Ointment] 1 applic TOPICAL BID PRN #1 tube PRN Reason: Prevention skin breakdown Transmission Status: Pending to [facility] Nystatin Powder [Mycostatin Powder] 1 applic TOPICAL BID #1 bottle Transmission Status[facility] Metoprolol Succinate [Toprol Xl] 100 mg PO DAILY #30 tab.er.24h Transmission Status: Pending to [facility] Primary Care Physician: Phoebe Daniels MD [Primary Care Provider] - Please follow up with your Primary Care Physician in: Follow-up within 3-5 days to review admission. Please Follow Up With: Kwaku Lancaster MD When: Please follow-up this coming week as arranged. Patient Instructions: Low Blood Pressure (Hypotension), Preventing Falls: Are You At Risk of Falling?, Preventing Falls: Making Changes in Your Living Space, Preventing Falls: Moving Safely Out of a Chair and Bed Disposition: Home with Home Health Minutes spent on discharge:: 35 Patient Condition:: Fair Medical Necessity - Tobacco Use Smoking Status: Former smoker Tobacco Use: Cigars Meaningful Use Info Meaningful Use Diagnoses (Choose all that apply): None applicable Code Visit Inpatient E&M: 32418 Disch Hosp
[2019-04-04] MEDS: Aspirin E.C. 81 MG Tablet PO (09:16)
[2019-04-04] MEDS: APIXABAN 5 MG TABLET PO (09:16)
[2019-04-04] MEDS: Nystatin Powder 15gm Bottle 1 APPLIC TOPICAL (09:19)
--- NOTE | 2019-04-04 09:36 | CASEMGMT ---
Addendum entered by Adeola Barrera 04/04/19 10:17: Correction: Pt is not currently receiving PT/OT per Cate @ [facility]. Order edited for resumption of [facility] services, penitentiary only. PT/OT removed. Original Note: NUNO BRANCH Re-admission note: Pt admitted 03/20/19 and discharged 03/22/19 with diagnosis Rt leg ulcer w/cellulitis and hypotension. Pt refused SNF @ D/C. Was discharged home with [facility] penitentiary for wound care and PT/OT and Follow-up @ Wound Center. Re-admitted 04/03/19 w/diagnosis hypotension secondary to medications, poor intake, and dehydration. Pt received aggressive IVF hydration and changes were made to home medications. Pt being discharged home today w/resumption of HHC: PT/OT and penitentiary. Pt to follow up with his PCP, continued follow-up @ Wound Center, and cardiology. Call placed to Cate @ [facility] and she was made aware of pt's admission to [facility] and that pt is being discharged today. Resumption order for [facility] services placed. Cate made aware that changes to home medications have been made and referred her to see Discharge instructions. She was also made aware pt was encouraged to have log of his BP monitoring @ home done to take to his F/U cardiology appt. Dewey CHANDLER RN, CM
--- NOTE | 2019-04-04 10:38 | NURSING ---
wound photo: right lower leg
--- NOTE | 2019-04-04 10:59 | CASEMGMT ---
Pt requested for information regarding transportation. SW spoke w/pt and in room. redirected pt many times to conversation regarding transportation. Pt states they have two drivers but one is 83, he states the other one is still available. SW reviewed w/pt information regarding hospital van, gave pt's information on the hospital van. SW explained to call as soon as they know when the appointment is as van is not always available. SW explained if the van is not available when the appt is, they can assist in rescheduling for when the van is available. states understanding. SW also gave information for taxi vouchers. Pt does not think they would qualify financially for this. SW explained there is a list with this information however of other transportation options that may be helpful. states understanding. No further needs anticipated at this time. TIMO Norris
--- NOTE | 2019-04-05 01:22 | PCM.PN.BLA ---
Progress Note At about 1 AM on 04/05/2019. Received notification from lab about blood cultures drawn on 04/03/2019 returning positive for gram-positive cocci in 1 aerobic bottle out of 2 sets of blood cultures drawn. Will notify morning medicine team to follow up.
--- NOTE | 2019-04-05 15:41 | CCHN_ITS ---
Hospitalist Note Patient contacted with noted 1/4 bottles with GPC. CXR was unremarkable. UA unremarkable. CBC without WBC elevation or L shift. Contacted PCP office and updated them on this findings to closely monitor patient and if any concerns refer back to the ED with reported preliminary results. Contacted patient and left VM on his cell. Was able to reach him at his home number. He notes feeling well, continued normal appetite. Did note health halfway aid assessment today with BP SBP 90s which is similar to recent discharge, HR 90, noted low grade temperature. Discussed this may possible be a contaminant but requested that if he became febrile (>/= 100.4), tachycardic (>100) or any onset malaise, fatigue, poor appetite he return to the ED for further evaluation. Patient also noted complaint that he had ride arranged per hospital for Monday early AM visit with his PCP Dr. Daniels and that when he investigated the ride arranged would not be able to manage his wheelchair. Will given this feedback to CM/SW.
--- NOTE | 2019-04-08 13:58 | CASEMGMT ---
NUNO BRANCH DC PHONE CALL DC DATE: 04/05/19 DC Disposition: Home Diagnosis on Discharge: Home with [facility]/STRATA: 29/12 Intro role of CM to patient via phone. Pt states [facility] was out 3 days in a row. Pt did have questions re: hospital transportation. NUNO BRANCH called to [employer] and verified they do not have wheelchair van. Pt states he will reschedule his appts when he has a local company hazmat driver to assist him. No other concerns and states he has # for [facility]. Daniel SAHUN RN ACM
== END 2019-04-04 10:50 | disposition home or self-care (01) | DRG 682 ==
LOC: ED 15:53 → ICU 17:07
PROVIDERS: Admitting Provider Student in an Organized Health Care Education/Training Program; Emergency Provider Emergency Medicine; Family Provider Internal Medicine; PCP Internal Medicine; Referring Provider Student in an Organized Health Care Education/Training Program; Visit Provider Family Medicine
DX: N17.9 Acute kidney failure, unspecified (principal); E43 Unspecified severe protein-calorie malnutrition; Z68.1 Body mass index [BMI] 19.9 or less, adult; I50.22 Chronic systolic (congestive) heart failure; I13.0 Hypertensive heart and chronic kidney disease with heart failure and stage 1 through stage 4 chronic kidney disease, or unspecified chronic kidney disease; I95.2 Hypotension due to drugs; T50.905A Adverse effect of unspecified drugs, medicaments and biological substances, initial encounter; I48.2 Chronic atrial fibrillation; R53.81 Other malaise; E86.0 Dehydration; I87.2 Venous insufficiency (chronic) (peripheral); I73.9 Peripheral vascular disease, unspecified; Z89.612 Acquired absence of left leg above knee
CPT/HCPCS: 80048; 83605; 84484; 85025; 87040; 87077; 87186; 93005; 93306; 99285; J7030; J7040; A4216

== ENCOUNTER 2019-04-12 13:26 | Outpatient (RCR) | payer MEDICARE, OTHER, SELFPAY ==
[2018-10-19 00:59] VITALS: BP 124/92; PULSE 95; RESP 18; TEMP 35.7; BMI 65.4
[2019-04-03 17:12] VITALS: BMI 20.4
[2019-04-12 13:41] VITALS: BP 78/40; PULSE 110; RESP 16; TEMP 37.7; BMI 19.1
--- NOTE | 2019-04-12 14:20 | WC ---
BP LOW X2. 71/30 RUE PER MONITOR W/ PULSE OF 103. RECHK 78/40 W/ PULSE OF 110. WILL UPDATE MD AND APPLICATIONS ANALYST. PT DENIES SX. STATES IT'S ALWAYS LOW. STATES HAS NOT BEEN HOLDING METOPROLOL FOR SBP <100 OR HR <60, PER MED ORDERS IN COMPUTER.
--- NOTE | 2019-04-12 18:20 | PCM.WC.HP ---
(1) Contracture of knee joint Status: Chronic Current Visit: Yes Qualifiers: Laterality: right Qualified Code(s): M24.561 - Contracture, right knee Code(s): M24.569 - Contracture, unspecified knee (2) Ulcer of right lower extremity with fat layer exposed Status: Chronic Current Visit: Yes Code(s): L97.912 - Non-pressure chronic ulcer of unspecified part of right lower leg with fat layer exposed (3) Venous insufficiency Status: Chronic Current Visit: Yes Code(s): I87.2 - Venous insufficiency (chronic) (peripheral) (4) CKD (chronic kidney disease) stage 3, GFR 30-59 ml/min Status: Chronic Current Visit: Yes Code(s): N18.3 - Chronic kidney disease, stage 3 (moderate) (5) Chronic systolic CHF (congestive heart failure) Status: Chronic Current Visit: Yes Code(s): I50.22 - Chronic systolic (congestive) heart failure (6) Chronic atrial fibrillation Status: Chronic Current Visit: Yes Code(s): I48.2 - Chronic atrial fibrillation (7) Neuropathic pain, leg, bilateral Status: Chronic Current Visit: Yes Code(s): G57.91 - Unspecified mononeuropathy of right lower limb; G57.92 - Unspecified mononeuropathy of left lower limb (8) PAOD (peripheral arterial occlusive disease) Status: Chronic Current Visit: Yes Code(s): I77.9 - Disorder of arteries and arterioles, unspecified (9) Pressure ulcer, heel, right, unstageable Status: Acute Current Visit: Yes Code(s): L89.610 - Pressure ulcer of right heel, unstageable (10) Alcohol abuse Status: Acute Current Visit: Yes Code(s): F10.10 - Alcohol abuse, uncomplicated History of Present Illness Date of Service: 04/12/19 Chief Complaint: Follow-up on left lower leg ulcers History of Wound: 78-year-old male who has been treated at the wound center in the past for ulcers of his left lower leg due to PAD, PVD and noncompliance which ultimately resolved with AKA of left leg in [place] [address] Dionne Cole presents today after Home Health urged him to be seen for treatment of ulcers of his right ray and heel that have been present for several weeks after a fall where he injured his ray. He denies fever, chills, nausea, vomiting, loss of appetite, streaking to the leg. He has been using wet to dry dressings to the ulcers. He has a contracted knee joint and does not have good mobility due to this as well as his left AKA. He denies calf pain, chest pain, shortness of breath. He has a h/o ETOH abuse and lives at home with his who has dementia. He has a h/o MRSA and his lst vascular studies were done in June of 2018. He currently is not on any antibiotics. He does not wear any compression currently but has had tubigrips in past. 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) Ulcer of left lower extremity with fat layer exposed (Chronic) Ulcer of left lower extremity with necrosis of bone (Chronic) 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) Venous insufficiency (Chronic) CKD (chronic kidney disease) stage 3, GFR 30-59 ml/min (Chronic) Anemia (Chronic) 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) Delayed wound healing (Chronic) Nonischemic cardiomyopathy (Chronic) Chronic systolic CHF (congestive heart failure) (Chronic) Chronic atrial fibrillation (Chronic) Bilateral edema of lower extremity (Chronic) Open wounds involving multiple regions of lower extremity (Chronic) Neuropathic pain, leg, 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) Surgical History: appendectomy, herniorrhaphy, - - Hand surgery. left AKA Allergies/Adverse Reactions: Allergies codeine Adverse Reaction (Verified 04/12/19 14:20) Nausea Home Medications: Ambulatory Orders Medication Instructions Recorded Aspirin E.C. [Ecotrin] 81 mg PO DAILY@0800 11/06/15 Apixaban [Eliquis] 5 mg PO BID 05/24/17 traMADol [Ultram] 50 mg PO Q6H PRN PRN 09/28/18 Furosemide [Lasix] 40 mg PO DAILY PRN #0 04/04/19 Metoprolol Succinate [Toprol Xl] 100 mg PO DAILY #30 tab.er.24h 04/04/19 - Family History Maternal Family History: Family History (Last Updated 04/05/19 @ 16:08 by Michelle Mendoza) Mother Alzheimers disease Grandmother Alzheimers disease Brother Cancer Osteoporosis Dementia Paternal Family History: Family History (Last Updated 04/05/19 @ 16:08 by Michelle Mendoza) Mother Alzheimers disease Grandmother Alzheimers disease Brother Cancer Osteoporosis - - venous ulcers Lives: Spouse/ Significant Other Smoking Status: Former smoker Tobacco Use: Non-smoker Alcohol: Heavy Drugs: None Review of Systems Constitutional: Denies: Chills, Fever, Weight Change Eyes: Denies: Pain, Vision Change HEENT: Denies: Difficulty Hearing, Difficulty Swallowing, Sinus Congestion Cardiovascular: Denies: Chest Pain, Palpitations Respiratory: Denies: Cough, Shortness of Breath Gastrointestinal: Denies: Diarrhea, Nausea, Vomiting Genitourinary: Denies: Dysuria, Hematuria Musculoskeletal: Reports: Joint stiffness, Leg Pain Skin: Reports: Wounds Neurological: Reports: Numbness Endocrine: Denies: Heat/ Cold Intolerance, Polydipsia, Polyuria Hematologic/ Lymphatic: Reports: Easy Bleeding. Denies: Easy Bruising - Physical Exam Vital Signs Temp Pulse Resp BP 100 F H 110 H 16 78/40 L 04/12/19 13:41 04/12/19 13:41 04/12/19 13:41 04/12/19 13:41 General: Alert, Oriented x3, Cooperative, No apparent distress HEENT: Atraumatic, Normocephalic Oral: Moist Mucosa Lungs: Clear to auscultation Cardiovascular: Irregular Rate Abdomen: Soft, Non Tender Extremities: No Calf Tenderness, Diminished Peripheral Pulses, Edema, Tenderness Skin: Ulcer/ Wound Wound Measurements and Assessment WC - Nurse 1 - General Ulcer Measurement Start: 04/12/19 13:36 Freq: Status: Active Protocol: Activity Type Activity Date Activity User E-Sign Co-Sign Detail Recorded Client Recorded Date Recorded By Document 04/12/19 13:41 [facility] [id number] 04/12/19 14:15 [facility] 04/12/19 13:41 Wound Center Nurse 1 [Ulcer Assessment] #11- R LAT FOOT -Combined with other wound No -Current Size (cm) - Length 1.6 -Current Size (cm) - Width 1 -Current Size (cm) - Depth 0.1 -Total Square Cm 1.6 -Date of Last Picture (Recall this 04/12/19 field) -Photo Taken Yes -Epithelialization None Present -Tunneling No -Undermining/Tunneling No -Circular Undermining No -Exudate Amt Small -Exudate Type Serous -Wound Margin Distinct, Outline Attached -Granulation Amt None Present (0 %) -Slough/Fibrin Yes -Necrosis Amt Large (67-100%) -Necrotic Tissue Type Adherent Slough -Texture (Cyndy-wound Skin Appearance) Assessed -Moisture (Cyndy-wound Skin Appearance Maceration ) -Color (Cyndy-wound Skin Appearance) Assessed, Erythema,Palor -Temperature (Cyndy-wound Skin No Abnormality Appearance) (Pt Warm) -Tenderness on Palpation (Cyndy-wound No Skin Appearance) -Ulcer Cleansing SOAP AND WATER -Foul Odor after Cleansing No -Anesthetic Used 4% Lidocaine Solution #10- R LAT HEEL -Combined with other wound No -Current Size (cm) - Length 4 -Current Size (cm) - Width 3.5 -Current Size (cm) - Depth 0.1 -Total Square Cm 14.0 -Date of Last Picture (Recall this 04/12/19 field) -Photo Taken Yes -Epithelialization None Present -Tunneling No -Undermining/Tunneling No -Circular Undermining No -Exudate Amt Medium -Exudate Type Serous -Wound Margin Distinct, Outline Attached -Granulation Amt None Present (0 %) -Slough/Fibrin Yes -Necrosis Amt Large (67-100%) -Necrotic Tissue Type Adherent Slough -Texture (Cyndy-wound Skin Appearance) Assessed, Scarring -Moisture (Cyndy-wound Skin Appearance Assessed, ) Maceration -Color (Cyndy-wound Skin Appearance) Assessed,Palor -Temperature (Cyndy-wound Skin No Abnormality Appearance) (Pt Warm) -Tenderness on Palpation (Cyndy-wound No Skin Appearance) -Ulcer Cleansing SOAP AND WATER -Foul Odor after Cleansing No -Anesthetic Used 4% Lidocaine Solution #9- R RAY INFERIOR/LAT LEG -Combined with other wound No -Current Size (cm) - Length 9.5 -Current Size (cm) - Width 13.6 -Current Size (cm) - Depth 0.1 -Total Square Cm 129.20 -Date of Last Picture (Recall this 04/12/19 field) -Photo Taken No -Epithelialization None Present -Tunneling No -Undermining/Tunneling No -Circular Undermining No -Exudate Amt Large -Exudate Type Serosanguineous -Wound Margin Distinct, Outline Attached -Granulation Amt None Present (0 %) -Slough/Fibrin Yes -Necrosis Amt Large (67-100%) -Necrotic Tissue Type Adherent Slough -Texture (Cyndy-wound Skin Appearance) Assessed, Scarring -Moisture (Cyndy-wound Skin Appearance Assessed ) -Color (Cyndy-wound Skin Appearance) Assessed, Erythema, Hemosiderin Staining -Temperature (Cyndy-wound Skin No Abnormality Appearance) (Pt Warm) -Tenderness on Palpation (Cyndy-wound Yes Skin Appearance) -Ulcer Cleansing SOAP AND WATER -Foul Odor after Cleansing No -Anesthetic Used 4% Lidocaine Solution #8- R RAY SUPERIOR -Combined with other wound No -Current Size (cm) - Length 10.2 -Current Size (cm) - Width 5.5 -Current Size (cm) - Depth 0.3 -Total Square Cm 56.10 -Date of Last Picture (Recall this 04/12/19 field) -Photo Taken Yes -Epithelialization None Present -Tunneling No -Undermining/Tunneling No -Circular Undermining No -Exudate Amt Large -Exudate Type Serosanguineous -Wound Margin Distinct, Outline Attached -Granulation Amt None Present (0 %) -Slough/Fibrin Yes -Necrosis Amt Large (67-100%) -Necrotic Tissue Type Adherent Slough -Texture (Cyndy-wound Skin Appearance) Assessed, Localized Edema ,Scarring -Moisture (Cyndy-wound Skin Appearance Assessed ) -Color (Cyndy-wound Skin Appearance) Assessed, Hemosiderin Staining -Temperature (Cyndy-wound Skin No Abnormality Appearance) (Pt Warm) -Tenderness on Palpation (Cyndy-wound Yes Skin Appearance) -Ulcer Cleansing SOAP AND WATER -Foul Odor after Cleansing No -Anesthetic Used 4% Lidocaine Solution [Edema Assessment] -Lower Limb Edema Present Yes -Right Calf (cm) 44.5 -Right Ankle (cm) 26.4 WC - Nurse 2 - General Ulcer CM Notes Start: 04/12/19 13:36 Freq: Status: Active Protocol: Activity Type Activity Date Activity User E-Sign Co-Sign Detail Recorded Client Recorded Date Recorded By Document 04/12/19 15:17 MW [id number] 04/12/19 15:42 MW 04/12/19 15:17 Wound Center Nurse 2 [Procedure/Treatment] #11- R LAT FOOT -Time 15:18 -Correct Patient Yes -Correct Side, Site, Position Yes -Correct Procedure Yes -Procedure Performed No -Post Debridement Size (cm) - Length 1.6 -Post Debridement Size (cm) - Width 1.0 -Post Debridement Size (cm) - Depth 0.1 -Total Square Cm 1.60 -Wound/Ulcer Outcome Not Healed -Ulcer Cleansing Rinsed/ Irrigated with Saline -Foul Odor after Cleansing No -Bioengineered Tissue No -Bleeding Controlled with NA -Offloading No -Treatment Response Procedure Tolerated Well #10- R LAT HEEL -Time 15:18 -Correct Patient Yes -Correct Side, Site, Position Yes -Correct Procedure Yes -Post Debridement Size (cm) - Length 4.0 -Post Debridement Size (cm) - Width 3.5 -Post Debridement Size (cm) - Depth 0.1 -Total Square Cm 14.00 -Wound/Ulcer Outcome Not Healed -Ulcer Cleansing Rinsed/ Irrigated with Saline -Foul Odor after Cleansing No -Bioengineered Tissue No -Offloading No -Treatment Response Procedure Tolerated Well #9- R RAY INFERIOR/LAT LEG -Time 15:18 -Correct Patient Yes -Correct Side, Site, Position Yes -Correct Procedure Yes -Procedure Performed No -Post Debridement Size (cm) - Length 9.5 -Post Debridement Size (cm) - Width 13.6 -Post Debridement Size (cm) - Depth 0.1 -Total Square Cm 129.20 -Wound/Ulcer Outcome Not Healed -Ulcer Cleansing Rinsed/ Irrigated with Saline -Foul Odor after Cleansing No -Bioengineered Tissue No -Bleeding Controlled with Pressure -Offloading No -Treatment Response Procedure Tolerated Well #8- R RAY SUPERIOR -Time 15:18 -Correct Patient Yes -Correct Side, Site, Position Yes -Correct Procedure Yes -Procedure Performed Yes -Type of Procedure Debridement -Clinical Debridement Subcutaneous -Post Debridement Size (cm) - Length 10.0 -Post Debridement Size (cm) - Width 4.5 -Post Debridement Size (cm) - Depth 0.3 -Total Square Cm 45.00 -Wound/Ulcer Outcome Not Healed -Ulcer Cleansing Rinsed/ Irrigated with Saline -Foul Odor after Cleansing No -Bioengineered Tissue No -Bleeding Controlled with Pressure -Offloading No -Treatment Response Procedure Tolerated Well [See Physician Procedure note for Specifics] Pain Scale: 0-10 Numeric [Pain] -Is Patient Pain Free? Yes Psych/Mental Status: Normal Affect, Appropriate Debridement Note Post-Debridement Measurements/Treatment WC - Nurse 2 - General Ulcer CM Notes Start: 04/12/19 13:36 Freq: Status: Active Protocol: Activity Type Activity Date Activity User E-Sign Co-Sign Detail Recorded Client Recorded Date Recorded By Document 04/12/19 15:17 MW [id number] 04/12/19 15:42 MW 04/12/19 15:17 Wound Center Nurse 2 #11- R LAT FOOT -Time 15:18 -Correct Patient Yes -Correct Side, Site, Position Yes -Correct Procedure Yes -Procedure Performed No -Post Debridement Size (cm) - Length 1.6 -Post Debridement Size (cm) - Width 1.0 -Post Debridement Size (cm) - Depth 0.1 -Total Square Cm 1.60 -Wound/Ulcer Outcome Not Healed -Ulcer Cleansing Rinsed/ Irrigated with Saline -Foul Odor after Cleansing No -Bioengineered Tissue No -Bleeding Controlled with NA -Offloading No -Treatment Response Procedure Tolerated Well #10- R LAT HEEL -Time 15:18 -Correct Patient Yes -Correct Side, Site, Position Yes -Correct Procedure Yes -Post Debridement Size (cm) - Length 4.0 -Post Debridement Size (cm) - Width 3.5 -Post Debridement Size (cm) - Depth 0.1 -Total Square Cm 14.00 -Wound/Ulcer Outcome Not Healed -Ulcer Cleansing Rinsed/ Irrigated with Saline -Foul Odor after Cleansing No -Bioengineered Tissue No -Offloading No -Treatment Response Procedure Tolerated Well #9- R RAY INFERIOR/LAT LEG -Time 15:18 -Correct Patient Yes -Correct Side, Site, Position Yes -Correct Procedure Yes -Procedure Performed No -Post Debridement Size (cm) - Length 9.5 -Post Debridement Size (cm) - Width 13.6 -Post Debridement Size (cm) - Depth 0.1 -Total Square Cm 129.20 -Wound/Ulcer Outcome Not Healed -Ulcer Cleansing Rinsed/ Irrigated with Saline -Foul Odor after Cleansing No -Bioengineered Tissue No -Bleeding Controlled with Pressure -Offloading No -Treatment Response Procedure Tolerated Well #8- R RAY SUPERIOR -Time 15:18 -Correct Patient Yes -Correct Side, Site, Position Yes -Correct Procedure Yes -Procedure Performed Yes -Type of Procedure Debridement -Clinical Debridement Subcutaneous -Post Debridement Size (cm) - Length 10.0 -Post Debridement Size (cm) - Width 4.5 -Post Debridement Size (cm) - Depth 0.3 -Total Square Cm 45.00 -Wound/Ulcer Outcome Not Healed -Ulcer Cleansing Rinsed/ Irrigated with Saline -Foul Odor after Cleansing No -Bioengineered Tissue No -Bleeding Controlled with Pressure -Offloading No -Treatment Response Procedure Tolerated Well Pain Scale: 0-10 Numeric Is Patient Pain Free? Yes Wound debrided: right lateral foot Laterality: Right No debridement was completed today - Additional Wound Wound debrided: right lateral heel Laterality: Right Wound Grade/Stage: Unstageable Operative Diagnosis: no debridement completed - Additional Wound Wound debrided: right ray inferior/lateral leg Laterality: Right Operative Diagnosis: no debridement completed today - Additional Wound Wound debrided: right ray superior Laterality: Right Type of Debridement: Excisional debridement Anesthesia Used: 4% Lidocaine Solution, 5% Lidocaine Gel Depth: Down to and including healthy tissue, in the subcutaneous layer Percentage of wound debrided: 50 Instrument Used: Forceps Tissue Removed: yellow slough, devitalized tissue Severity: Fat Layer Exposed Amount of bleeding with debridement: Mild Bleeding Controlled with: Compression and gauze Patient tolerated procedure: Patient tolerated procedure well Assessment/Plan Active Problems (Last Updated 04/05/19 @ 16:06 by Michelle Mendoza) Contracture of knee joint (Chronic) Pressure ulcer, heel, right, unstageable (Acute) Alcohol abuse (Acute) 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) Venous insufficiency (Chronic) CKD (chronic kidney disease) stage 3, GFR 30-59 ml/min (Chronic) Chronic systolic CHF (congestive heart failure) (Chronic) Chronic atrial fibrillation (Chronic) Neuropathic pain, leg, 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) Assessment: Left lower leg ulcer-anterior (tendon and bone exposed) and posterior (subcutaneous tissue exposed). Osteomyelitis left tibia. Peripheral vascular disease. 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 Bilateral lower leg edema swelling increased in the left leg. Neuropathy lower extremities. Atrial fibrillation. Non compliance. Venous insufficiency. Left acute DVT has been ruled out Plan: Rogelio's ulcers were evaluated today. There was odor present with necrosis of subcutaneous tissue of his superior ray ulcer. Debridement of this ulcer was completed and a wound culture was taken. He has 2 other venous ulcers and an unstageable pressure ulcer of his right heel that was not opened due to concerns for propagating infection. Discussed options for treatment with the patient including possible AKA of his right leg, possible vascular intervention and/or surgical debridement. He would consider AKA as his leg is nearly not functional currently due to contracture of his right knee but would like to try more conservative treatment at this time with referral to vascular surgery followed by surgical debridement. Referral to see his vascular surgeon, Dr. Maloney as soon as possible was given due to his h/o complicated and rapidly progressive ulcerations. Will treat for infection based on wound culture results. He was encouraged to elevate and take pressure off of his right heel as much as possible. Advised to wash leg daily with gentle Dial soap and water. Will treat his ulcers with Aquacel Ag and a nurses hat to his heel. We will have him use Tubigrip compression to decrease leg edema. He was advised to go to the ER if he developed fever, chills, fatigue or erythema. F/U in 1 week.
== END 2019-04-17 23:59 ==
LOC: WC 13:26
PROVIDERS: Family Provider Internal Medicine; PCP Internal Medicine; Referring Provider Podiatrist; Visit Provider Podiatrist
DX: I87.2 Venous insufficiency (chronic) (peripheral) (principal); I13.0 Hypertensive heart and chronic kidney disease with heart failure and stage 1 through stage 4 chronic kidney disease, or unspecified chronic kidney disease; N18.3 Chronic kidney disease, stage 3 (moderate); L89.610 Pressure ulcer of right heel, unstageable; L97.812 Non-pressure chronic ulcer of other part of right lower leg with fat layer exposed; I48.2 Chronic atrial fibrillation; I50.22 Chronic systolic (congestive) heart failure; F10.10 Alcohol abuse, uncomplicated; I73.9 Peripheral vascular disease, unspecified; Z91.19 Patient's noncompliance with other medical treatment and regimen; Z89.612 Acquired absence of left leg above knee; Z86.14 Personal history of Methicillin resistant Staphylococcus aureus infection; Z87.891 Personal history of nicotine dependence
CPT/HCPCS: 11042; 11045; 87070; 87075; 87077; 87186; 87205; 99213; G0463

== ENCOUNTER 2019-04-17 12:39 | Inpatient (IN) | payer MEDICARE, OTHER, SELFPAY ==
[2019-04-15 14:37] VITALS: BMI 19.1
[2019-04-17] VITALS (11 sets, daily range): BP systolic 87–117; BP diastolic 55–86; PULSE 104–132; RESP 18–19; TEMP 36.4–37; O2SAT 93–99; BMI 19.1; BMI 19.5
--- NOTE | 2019-04-17 14:08 | RAD_ITS ---
STUDY: X-RAY CHEST REASON FOR EXAM: Male, 78 years old. Cough. TECHNIQUE: Single AP portable view of the chest. COMPARISON: Comparison is made with prior examination dated September 28, 2018. FINDINGS: EKG electrodes are seen. The lungs are clear and expanded. There is no demonstrated pleural abnormality. Normal size heart. Normal mediastinum and philip. Normal visualized pulmonary arteries. There is atherosclerotic tortuosity of the aortic arch and descending thoracic aorta. There is a levoscoliosis of the thoracic spine. Normal visualized ribs, clavicles, and shoulders. There is no demonstrated abnormality of the visualized soft tissue structures of the upper abdomen. RAD/Chest 1 View (Portable) IMPRESSION: No acute abnormality is seen. Electronically Signed: Thor Mccallum, at 14:49 EDT , Service support ,
--- NOTE | 2019-04-17 14:17 | RAD_ITS ---
STUDY: X-RAY - RIGHT TIBIA AND FIBULA REASON FOR EXAM: Male, 78 years old. Nonhealing wound in the lower leg. TECHNIQUE: 2 view(s) of the tibia and fibula were obtained. COMPARISON: None. FINDINGS: Normal visualized tibia. Normal visualized fibula. Soft tissue ulceration seen along the anterior midportion of the leg. RAD/Tibia & Fibula 2 Views IMPRESSION: Soft tissue ulceration/laceration in the anterior mid leg. Electronically Signed: Thor Mccallum, at 14:49 EDT , Service support ,
[2019-04-17 14:23] LABS: Absolute Lymphocyte Count 1.58 X10^3/uL (0.83-4.51); Absolute Neutrophil Count 8.2 X10^3/uL (2.0-7.7); Basophil# 0.05 X10^3/uL; Basophil% 0.5 % (0-1); Eosinophil# 0.14 X10^3/uL; Eosinophils% 1.3 % (0-5); Hemoglobin 12.6 g/dL (13.0-16.5); Lymphocyte # 1.58 X10^3/ul (4.0); Lymphocyte % 14.5 % (19-41); Mean Corp Hgb Conc 33.2 g/dL (32-36); Mean Corpuscular Hgb 30.8 pg (27.0-32.0); Mean Corpuscular Volume 92.9 fL (80-94); Mean Platelet Vol. 9.9 fl (6.2-12.0); Monocyte# 0.89 X10^3/uL; Monocyte% 8.2 % (0-10); NRBC Flagged by Analyzer 0 % (0-5); Neutrophil # 8.23 X10^3/uL (2.7-7.7); Neutrophil % 75.2 % (47-70); Platelet Count 339 K/mm3 (150-450); RBC Distribution Width CV 14.5 % (11.6-14.6); RBC Distribution Width SD 48.8 fl (35.1-43.9); Red Blood Count 4.09 M/mm3 (4.6-6.2); White Blood Count 10.9 K/mm3 (4.4-11.0)
--- NOTE | 2019-04-17 14:24 | ED.DCSUM_ITS ---
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 He is nonambulatory at baseline and uses a wheelchair. He has had wounds on his heel in the anterior aspect of his right leg for several months but states that he was unable to get the wound care until last Monday. He reports that a culture was performed and his wounds were dressed. When his home health they took the dressings off today, there were maggots in the right leg wound. He denies increased pain or fever/chills. He denies any other symptoms of infection. He was referred into the emergency department on discovering the maggots so that he could be evaluated for infection. Past Medical History - Allergies and Home Meds Allergies/Adverse Reactions: Allergies codeine Adverse Reaction (Verified 04/17/19 12:40) Nausea Primary Care Physician: Phoebe Daniels MD [Primary Care Provider] - Prior records reviewed: Yes Surgical History: appendectomy, herniorrhaphy, - - Hand surgery. left AKA Smoking Status: Former smoker - Family History Maternal Family History: Family History (Last Reviewed 04/15/19 @ 15:28 by Kwaku Lancaster MD) Mother Alzheimers disease Grandmother Alzheimers disease Brother Cancer Family History: Reports: Dementia Paternal Family History: Family History (Last Reviewed 04/15/19 @ 15:28 by Kwaku Lancaster MD) Mother Alzheimers disease Grandmother Alzheimers disease Brother Cancer Family History: Reports: - - venous ulcers Review of Systems General: Denies: Chills, Fever, Sweats Eyes: Denies: Visual changes - bilaterally, Diplopia ENT: Denies: Rhinorrhea, Sore throat Cardiovascular: Denies: Chest pain, Palpitations Respiratory: Denies: Dyspnea, Cough, Dyspnea on exertion Gastrointestinal: Denies: Abdominal pain, Nausea, Vomiting, Diarrhea, Melena, Hematochezia Genitourinary: Denies: Dysuria, Hematuria, Frequency Musculoskeletal: Denies: Back pain, Extremity Pain Skin: Reports: Rash, Wounds Neurological: Denies: Headache, Weakness, Numbness Physical Exam Vital Signs/Narrative: Vital Signs Temp Pulse Resp BP Pulse Ox 04/17/19 14:04 98.5 F 117 H 19 H 103/74 98 04/17/19 13:03 98.5 F 04/17/19 12:40 98.5 F 132 H 19 H 87/58 L 99 General: Cachectic, Acute Distress Head: Normocephalic, Atraumatic Eyes: Perrl, EOMI ENT: No rhinorrhea, Dry mucous membranes Neck: Supple, Nontender Cardiovascular: Regular rhythm, No murmurs, Tachycardia Respiratory: No distress, CTA bilaterally, Chest nontender Abdomen: Soft, Nontender, Nondistended, Normal bowel sounds Back: Nontender, Normal Inspection Extremities: Nontender, - - Left lower extremity is amputated. Right lower extremity reveals a large area of induration across the anterior aspect with erythema/warmth, and approximately a 10 x 15 cm open draining area on the mid shaft. I do not see any obvious maggots in the wound but he states that they were removed already. He also has a separate superficial appearing wound on the right heel. Skin: Normal color, No rash Neurological: Alert, Oriented x3, Cranial nerves II-XII grossly intact, Normal Strength, Normal Sensation Psychological: Normal affect, Normal Mood Diagnostic/Tx/Re-eval - Medical Decision Making Our nursing staff did remove maggots from his wound. He does not have a significant leukocytosis and his lactic acid is normal but he is tachycardic and appears septic. No evidence of severe sepsis. He was treated with IV Zosyn and vancomycin and I do feel he meets criteria for full admission. ED Disposition - Plan for ED Patient: Disposition: Acute Care Hospital [facility] Diagnosis: Wound of right lower extremity, Cellulitis of right leg Referrals: Phoebe Daniels MD [Primary Care Provider] -
[2019-04-17 14:34] LABS: International Normalized Ratio 1.3; Prothrombin Time (Protime)PT. 15.7 SECONDS (11.7-14.9)
[2019-04-17 14:39] LABS: ALB/GLOB Ratio 0.8 RATIO (0.9-2.4); AST(SGOT) 14 U/L (15-37); Alanine Aminotransfer ALT/SGPT 12 U/L (16-61); Albumin, Serum 3.4 g/dL (3.2-5.0); Alkaline Phosphatase 82 U/L (45-117); Anion Gap 6 (5-15); BUN 18 mg/dL (7-18); Calcium,Total 9.2 mg/dL (8.5-10.1); Chloride 103 mmol/L (98-107); EST Glomerular Filtration Rate 77 mL/min (>60); Est Glom Filt Rate - Afr Amer 93 mL/min (>60); Estimated Creatinine Clearance 57.55 ml/min; Globulin 4.2 g/dL (2.2-4.2); Glucose 94 mg/dL (74-106); Potassium 3.2 mmol/L (3.5-5.1); Protein, Total 7.6 g/dL (6.4-8.2); Sodium Level 137 mmol/L (136-145)
[2019-04-17 14:40] LABS: Bacteria 0 SEEN /hpf (None Seen); Mucous, Urine 0 SEEN /hpf (<or=2+); White Blood Cells 0 SEEN /hpf (0-5)
[2019-04-17 14:42] LABS: Color, Urine Yellow (Yellow); Glucose, Dipstick Normal (Normal); Ketone-Dipstick Negative (Negative); Leukocyte Esterase-Dipstick Negative /ul (Negative); Nitrite-Dipstick Negative (Negative); Occult Blood-Urine 50 /ul (Negative); Protein-Dipstick Negative (Negative); Urine Bilirubin Dipstick Negative (Negative); Urine Clarity Clear (Clear); Urine Urobilinogen Normal (Normal)
[2019-04-17 14:45] LABS: Lactic Acid 1.4 mmol/L (0.4-2.0)
[2019-04-17 14:56] LABS: Hyaline Cast 0-5 SEEN /lpf (0-5); Red Blood Cells-Urine 0-5 SEEN /hpf (0-5); Squamous Epithelial Cells - UA 0-5 SEEN /hpf (0-5)
--- NOTE | 2019-04-17 15:35 | ED.RN ---
PT PRESENTS WITH SEVERAL WOUNDS TO R LEG. SCROTOM IS REDDENED. THERE IS A FOUL URINE ODOR EMITTING FROM PT. THERE ARE SEVERAL BLISTERED WOUNDS TO BACK OF PTS UPPER LEGS. L LEG IS AMPUTATED ABOVE KNEE. R LEG HAS LARGE YELLOW/BLACK AREAS ON IT WITH SMALL MAGGOTS UNDER SKIN. ONE MAGGOT FOUND CRAWLING ON LEG AND KILLED. LEG IS RED, EDEMATOUS AND SEEPING. PT STATES THAT HOME HEALTH IS SUPPOSED TO BE SEEING HIM AT HOME AND HASN'T BEEN THERE FOR 3 DAYS. STATES HE HAD PROBLEMS WITH GETTING TRANSPORTATION TO HOSPITAL BECAUSE NO ONE HAS A VAN THAT CAN TAKE WHEELCHAIRS. THIS IS SUPPOSED TO BE A TOP [facility], AND IT IS HORRIBLE. PT STATES HE HAD NO IDEA HE HAS AN INFECTION IN HIS LEG. PT HAS POOR SELF CARE. PT STATES IS AT HOME WITH ALZHEIMERS AND CANNOT REMEMBER THINGS WELL. STATES THEY ARE BOTH HAVING PROBLEMS CARING FOR THEMSELVES. SW AND CM MADE AWARE.
--- NOTE | 2019-04-17 17:00 | NURSING ---
DR DONALD FOR DR TAPIA
--- NOTE | 2019-04-17 17:17 | NURSING ---
[address] SH[address] ROMERO, SEPSIS
[2019-04-17] MEDS: Ciprofloxacin 400 MG/200 ML BAG 200 MG IV (17:25)
--- NOTE | 2019-04-17 17:25 | PCM.HP.STD ---
Problem List (1) Wound of right lower extremity Status: Acute (2) Contracture of knee joint Status: Chronic Qualifiers: Laterality: right Qualified Code(s): M24.561 - Contracture, right knee (3) Essential hypertension Status: Chronic (4) CKD (chronic kidney disease) stage 3, GFR 30-59 ml/min Status: Chronic (5) Delayed wound healing Status: Chronic (6) Nonischemic cardiomyopathy Status: Chronic (7) Chronic systolic CHF (congestive heart failure) Status: Chronic (8) Chronic atrial fibrillation Status: Chronic (9) PAOD (peripheral arterial occlusive disease) Status: Chronic History of Present Illness Date of Admission: 04/17/19 Chief Complaint: Right leg wound. The patient is a 78 year old M with past medical history as mentioned above who was requested to come to the emergency department by the home health nurse because he was found to have maggots in the right leg wound. This patient has a history of right lower extremity cellulitis with nonhealing ulcer/wound with MRSA infection and he has been following up with the wound care center as outpatient and he supposed to have dressing changes every day but he mentioned that he was not able to get the home health service nurse to come to his house every day to do the dressing change. Over the last 3 days, he has been found to have the home health nurse come in to do dressing change but finally today he was able to have somebody coming to his house to check his wound and do the dressing change. He was found to have maggots on his right right lower extremity nonhealing ulcer and right heel. He denied any significant pain. He denies fever or chills. 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 He has history of chronic atrial fibrillation and he has been on Eliquis for anticoagulation, was on Coreg for rate control but he was instructed to stop taking Coreg because of low blood pressure and this is according to the patient. He is currently taking only Lasix and Eliquis. He had a history of nonischemic cardiomyopathy with chronic systolic CHF and currently, he is only on Lasix and he stated that he was instructed to stop taking lisinopril and Coreg. He has history of chronic anemia which is probably due to anemia of chronic disease and hemoglobin has been fluctuating anywhere between 7 to 12 g/dL and most recently, it has been around 12 g/dL. In the emergency department, patient was afebrile, tachycardic, blood pressure was initially stable and then systolic came down to around 98. Patient is a symptomatic, denies dizziness or lightheadedness. Routine blood work was remarkable for potassium of 3.2, otherwise normal. LFT was normal. Chest x-ray showed no acute findings. X-ray of the right tibia and fibula revealed soft tissue ulceration/laceration. He is being admitted for acute on chronic/recurrent right lower extremity cellulitis with infected chronic nonhealing right leg ulcer with maggots as well as nonhealing chronic probably infected right heel ulcer. 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) 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) Venous insufficiency (Chronic) CKD (chronic kidney disease) stage 3, GFR 30-59 ml/min (Chronic) Anemia (Chronic) Delayed wound healing (Chronic) Nonischemic cardiomyopathy (Chronic) Chronic systolic CHF (congestive heart failure) (Chronic) Chronic atrial fibrillation (Chronic) Bilateral edema of lower extremity (Chronic) Open wounds involving multiple regions of lower extremity (Chronic) Neuropathic pain, leg, 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) Medical History: Medical History (Last Updated 04/17/19 @ 17:18 by Corwin Costa MD) Essential hypertension (Chronic) I10 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) L97.912 Osteomyelitis of left tibia (Chronic) M86.9 Ulcer of left lower extremity with fat layer exposed (Chronic) L97.922 Ulcer of left lower extremity with necrosis of bone (Chronic) L97.924 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) L97.923 Venous insufficiency (Chronic) I87.2 CKD (chronic kidney disease) stage 3, GFR 30-59 ml/min (Chronic) N18.3 Anemia (Chronic) D64.9 Delayed wound healing (Chronic) T14.8XXD Nonischemic cardiomyopathy (Chronic) I42.8 Chronic systolic CHF (congestive heart failure) (Chronic) I50.22 Chronic atrial fibrillation (Chronic) I48.2 BPH loc w/o ur obs/LUTS N40.0 Allergies codeine Adverse Reaction (Verified 04/17/19 12:40) Nausea Home Medications: Ambulatory Orders Medication Instructions Recorded Apixaban [Eliquis] 5 mg PO BID 05/24/17 furosemide 40 mg tablet 40 mg PO DAILY 04/15/19 Surgical History: Surgical History (Last Reviewed 04/15/19 @ 15:28 by Kwaku Lancaster MD) History of left above knee amputation Onset Date: ~10/03/18 Z89.612 History of appendectomy Onset Date: ~1994 Z90.49 History of tonsillectomy Z.89 Surgical History: appendectomy, herniorrhaphy, - - Hand surgery. left AKA Psychiatric History: No pertinent psych hx Lives: Spouse/ Significant Other Smoking Status: Former smoker Alcohol: Occasional Drugs: None - *Family History Maternal Family History: Family History (Last Reviewed 04/15/19 @ 15:28 by Kwaku Lancaster MD) Mother Alzheimers disease Grandmother Alzheimers disease Brother Cancer History Items: Dementia Paternal Family History: Family History (Last Reviewed 04/15/19 @ 15:28 by Kwaku Lancaster MD) Mother Alzheimers disease Grandmother Alzheimers disease Brother Cancer History Items: - - venous ulcers Review of Systems Constitutional: Denies: Anorexia, Chills, Fever, Weakness Eyes: Denies: Blurred vision, Double vision, Drainage, Redness HEENT: Denies: Difficulty Hearing, Ear Pain, Eye Pain, Nasal Congestion, Sore Throat Cardiovascular: Denies: Chest Pain, Chest Pressure, Chest Tightness, Palpitations, Syncope Respiratory: Denies: Cough, Hemoptysis, Pleuritic Pain, Shortness of Breath, Sputum production, Wheezing Gastrointestinal: Denies: Abdominal Pain, Constipation, Diarrhea, Nausea, Vomiting Genitourinary: Denies: Dysuria, Frequency, Hematuria Musculoskeletal: Denies: Arm Pain, Back Pain, Foot Pain Skin: Reports: Wounds. Denies: Dryness, Rash Neurological: Denies: Balance problems, Double vision, Change in Speech, Slurred speech, Confusion, Incoordination Psychiatric: Denies: Anxiety, Depression Endocrine: Denies: Change in Body Habitus, Polydipsia, Polyuria VTE Information - Inpt Only VTE Present on Admission: No VTE Mechan Device Prophylaxis: None VTE Pharm Prophylaxis ordered?: Yes Patient Problems: Active and Suspected Problems (Last Updated 04/17/19 @ 17:18 by Corwin Costa MD) Wound of right lower extremity (Acute) Cellulitis of right leg (Acute) - Physical Exam General: Alert, Oriented x3, Cooperative, No apparent distress HEENT: Atraumatic, PERRLA, EOMI, Normocephalic Oral: Moist Mucosa, No Gingival or Mucosal Lesions/ Ulcerations Neck: Supple, No JVD, Negative Carotid Bruits, Trachea Midline, Thyroid Normal Size and Texture Lungs: Clear to auscultation, Normal air movement, No rhonchi, No wheeze, No rales, Diminished Cardiovascular: Normal S1, Normal S2, No murmurs, PMI Normal, Irregular Rate, Tachycardic Abdomen: Bowel Sounds Present, Soft, Non Tender, Non-Distended, No Hepato-splenomegaly Extremities: No clubbing, No cyanosis, - - Status post above left knee amputation. Right leg: Swelling and diffuse erythema involving the right leg from just below the right knee down to the right foot with chronic nonhealing ulcer on the anterior aspect measuring about 4 x 3 x 6 cm with black discoloration. Oozing and seeping on the lower part of the right leg. Chronic nonhealing right heel ulcer. Skin: Ulcer/ Wound Lymphatic: No Cervical, Supraclavicular, or Inguinal Adenopathy Neurological: Cranial nerves II-XII grossly intact, Neuro grossly intact Psych/Mental Status: Normal Affect, Appropriate, Alert and oriented to time, place, person, mood and affect Vital Signs Temp Pulse Resp BP Pulse Ox 97.8 F 113 H 18 98/83 H 99 04/17/19 16:03 04/17/19 16:03 04/17/19 16:03 04/17/19 16:03 04/17/19 16:03 Oxygen Delivery Method Room Air Weight: 145 lb Body Mass Index (BMI) 19.1 Laboratory Tests Past 24 Hrs 04/17/19 04/17/19 04/17/19 14:10 14:10 14:10 WBC 10.9 RBC 4.09 L Hgb 12.6 L Hct 38.0 L MCV 92.9 MCH 30.8 MCHC 33.2 RDW Std Deviation 48.8 H RDW Coeff of Reinier 14.5 Plt Count 339 MPV 9.9 Immature Gran % (Auto) 0.300 Neut % (Auto) 75.2 H Lymph % (Auto) 14.5 L Frederick % (Auto) 8.2 Eos % (Auto) 1.3 Baso % (Auto) 0.5 Absolute Neuts (auto) 8.2 H Absolute Lymphs (auto) 1.58 Nucleated RBC % 0 PT 15.7 H INR 1.3 Sodium 137 Potassium 3.2 L Chloride 103 Carbon Dioxide 28.0 Anion Gap 6 BUN 18 Creatinine 1.00 Estim Creat Clear Calc 57.55 Est GFR (MDRD) Af Amer 93 Est GFR (MDRD) Non-Af 77 BUN/Creatinine Ratio 18.0 Glucose 94 Lactic Acid Calcium 9.2 Total Bilirubin 0.70 AST 14 L ALT 12 L Alkaline Phosphatase 82 Total Protein 7.6 Albumin 3.4 Globulin 4.2 Albumin/Globulin Ratio 0.8 L Urine Color Urine Clarity Urine pH Ur Specific [place] Urine Protein Urine Glucose (UA) Urine Ketones Urine Occult Blood Urine Nitrite Urine Bilirubin Urine Urobilinogen Ur Leukocyte Esterase Urine RBC Urine WBC Ur Squamous Epith Cells Urine Bacteria Hyaline Casts Urine Mucus 04/17/19 04/17/19 14:10 14:30 WBC RBC Hgb Hct MCV MCH MCHC RDW Std Deviation RDW Coeff of Reinier Plt Count MPV Immature Gran % (Auto) Neut % (Auto) Lymph % (Auto) Frederick % (Auto) Eos % (Auto) Baso % (Auto) Absolute Neuts (auto) Absolute Lymphs (auto) Nucleated RBC % PT INR Sodium Potassium Chloride Carbon Dioxide Anion Gap BUN Creatinine Estim Creat Clear Calc Est GFR (MDRD) Af Amer Est GFR (MDRD) Non-Af BUN/Creatinine Ratio Glucose Lactic Acid 1.4 Calcium Total Bilirubin AST ALT Alkaline Phosphatase Total Protein Albumin Globulin Albumin/Globulin Ratio Urine Color Yellow Urine Clarity Clear Urine pH 5.0 Ur Specific [place] 1.020 Urine Protein Negative Urine Glucose (UA) Normal Urine Ketones Negative Urine Occult Blood 50 H Urine Nitrite Negative Urine Bilirubin Negative Urine Urobilinogen Normal Ur Leukocyte Esterase Negative Urine RBC 0-5 SEEN Urine WBC 0 SEEN Ur Squamous Epith Cells 0-5 SEEN Urine Bacteria 0 SEEN Hyaline Casts 0-5 SEEN Urine Mucus 0 SEEN Clinical Impression(s) from Imaging Studies Chest X-Ray 04/17/19 14:08 IMPRESSION: No acute abnormality is seen. Electronically Signed: Thor Mccallum, at 14:49 EDT , Service support , Tibia/Fibula X-Ray 04/17/19 14:17 IMPRESSION: Soft tissue ulceration/laceration in the anterior mid leg. Electronically Signed: Thor Demarcojennifermonse, at 14:49 EDT , Service support , Assessment/Plan All Active Problems (Last Updated 04/17/19 @ 17:18 by Corwin Costa MD) Wound of right lower extremity (Acute) Cellulitis of right leg (Acute) Pressure ulcer, heel, right, unstageable (Acute) This is a 78 years old male patient was instructed to come to ED by the home health nurse because she found maggots on his right lower extremity wounds, found to have acute on chronic/recurrent right lower extremity cellulitis, infected nonhealing right leg ulcer and right heel ulcer and he is being admitted for evaluation and treatment. #1 acute on chronic/recurrent right lower extremity cellulitis/nonhealing probably infected right ray ulcer/nonhealing infected right heel ulcer: Patient currently is not on antibiotic as outpatient. He had a wound culture done recently that showed Morganella and Serratia and also wound culture done the beginning of this month that showed MRSA. He is tachycardic, blood pressure is borderline but he is a symptomatic. He has been afebrile, no leukocytosis, lactic acid is normal. No evidence of sepsis or severe sepsis. Plan: Admit to PCU, cardiac monitoring, IV fluids, blood culture, urine culture, wound culture, ESR and C-reactive protein, start IV vancomycin and Zosyn, podiatry medicine consult, infectious disease consult, repeat CBC and BMP tomorrow morning, wound care nurse consult, PT OT evaluation and treatment. #2 nonischemic cardiomyopathy/chronic systolic CHF: Clinically stable, compensated. According to the patient, he was instructed by his doctor to stop taking Coreg, lisinopril and Aldactone. At this time, he is stable, no acute CHF. His blood pressure is borderline. Plan to start IV fluids as above, close monitoring of volume status to avoid volume overload. #3 chronic atrial fibrillation: Rate has been around 110. Patient stopped taking Coreg according to DrYaima instruction as per patient. Because Coreg is important beta-sumanth, we can start metoprolol, hold Eliquis for now because patient may go for surgery. #4 hypertension: Blood pressure is borderline at this time, asymptomatic. Patient taking only Lasix nowadays at home, was instructed to stop taking Coreg and lisinopril. #5 peripheral vascular disease: On Eliquis. #6 chronic anemia: Hemoglobin and hematocrit are stable, no evidence of active bleeding, no indication for transfusion. #7 DVT prophylaxis: Subcu Lovenox. This note was generated with [employer]u dictation software. It may contain incorrect words, spelling, and punctuation that were not noted in checking the note before signing. Code Visit Inpatient E&M: 59055 Init Hosp L3
--- NOTE | 2019-04-17 17:42 | CM.ED ---
SOCIAL WORK THIS WORKER ALONG WITH BIOSTATISTICS DIRECTOR, SUNG MET WITH PATIENT AND IN ROOM TO DISCUSS SAFE D/C PLANNING. PATIENT LIVES HOME WITH AND IS KNOWN TO LABOR CONTRACT ANALYST AND CASE MANAGEMENT FROM PREVIOUS ADMISSIONS. PATIENT IS REQUIRING DAILY DRESSING CHANGES AND CARE NEEDS ARE MUCH GREATER THAN WHAT CAN HANDLE AT HOME. MUCH ACTIVE LISTENING AND SUPPORT PROVIDED THROUGHOUT ASSESSMENT. PATIENT AND IN AGREEMENT WITH SNF UPON D/C-[facility]. MILL TENDER SECOND OPERATOR TO FOLLOW UP TOMORROW. GEORGE VARELA, BLINDSTITCH HEMMER, TUBE COATER.
--- NOTE | 2019-04-17 17:48 | CASEMGMT ---
RN CM Assessment Introduced role of RN CM to patient and patient Elizabeth at bedside.? Patient is alert, oriented and able?to participate in RN CM Assessment. ?Information provided by both patient and patient Elizabeth. Care providers, pharmacy, and demographics verified. This senior underwriter at bedside with ER COURTNEY Salcedo- please refer to her note for any further documentation. Presentation: Rt Leg wound, Has been to Wound Ctr, Multiple recent admits for MRSA Cellulitis, hypotension. Admit Dx: RLE Cellulitis, Chronic Nonhealing infected Ulcer Re-Admit: Yes. Inpt 04/03-04/04/19 for Hypotension, Inpt 03/20-03/22/19 for Cellulitis, hypotension. Inpt 09/28-10/01/18 for Severe Sepsis Barriers/Issues: Patient was DC'd with [facility]. Per Patient, [facility] has not been coming to visit when they were supposed to, states had to call them on Monday to come out and then they were supposed to come out on Monday-yes and did not, states they came today. Also, voices Transportation issues as when he called [facility] Transportation to assist he was told that they did not have Transportation. States that the friend that is a nurse that was supposed to assist with wound care on days that [facility] does not, Did not get back with him. This senior underwriter called Cate at [facility] at 1443 and states that Patient was seen at the Wound Ctr Monday and had dressing frequencies changed to Daily, [facility] patient was informed by them ([facility]) that they do not come out daily and patient/ stated would have their friend who is a nurse assist with dressing on the days they did not come out. States patient called their geographic information system analyst on Monday and she herself visited patient in the home and did dressing change, states that they seen patient today and noted had Maggots in wound and patient referred to ER, states believes the last dressing change was done on Monday when she did it. Denies [facility] on board. PCP: Phoebe Daniels Specialists: [facility] has nine specialist. Cardiac- Dr Fierro. Has not established with new Macaroni Press Operator. Wound Care- Dr Cleary Preferred Pharmacy: [facility] Insurance: [facility] A&B, MMO Rx Benefit:?Yes LNOK: Elizabeth Collado LW/HPOA: Yes both, Not on file at [facility]. HPOA- Elizabeth Collado Living Arrangements:?Lives with in a condo with ramp to enter ADL?s: WC/Bed Bound. Independent with ADLs Transportation: states that she is unable to transport patient d/t difficulty with WC. Patient states has two friends that can assist with transport, or this senior underwriter and SW made aware if meets medical necessity can arrange transportation at [place]. DME: HHC: Current with [facility] Nurse for Wound Care SNF: None, States is agreeable to go to SNF upon DC and preference is [facility]. Goal: SNF. Aware CM and SW remain available for any emerging needs. DC PLAN: SNF for Wound Care, PT for Transfer Training, Possible IV Abx. Milad Lockett RNCM
[2019-04-17 18:57] LABS: Erythrocyte Sedimentation Rate 54 mm/hr (0-20)
[2019-04-17] MEDS: Lactated Ringers 1,000 ML 100 ML IV (19:00)
--- NOTE | 2019-04-17 20:12 | PCM.RX.CS ---
Consult Pharmacy has been consulted to manage selected antiobiotic: Vancomycin Type of Consult: New start Suspected Infection: Skin/Soft tissue Prior Doses of Antibiotics Received/Current Regimen: NONE Labs: Sodium 137 mmol/L (136-145) 04/17/19 14:10 Potassium 3.2 mmol/L (3.5-5.1) L 04/17/19 14:10 Chloride 103 mmol/L (98-107) 04/17/19 14:10 Carbon Dioxide 28.0 mmol/L (21.0-32.0) 04/17/19 14:10 6 (5-15) 04/17/19 14:10 BUN 18 mg/dL (7-18) 04/17/19 14:10 1.00 mg/dL (0.70-1.30) 04/17/19 14:10 Est GFR (MDRD) Af Amer 93 mL/min (>60) 04/17/19 14:10 Est GFR (MDRD) Non-Af 77 mL/min (>60) 04/17/19 14:10 18.0 RATIO (10-20) 04/17/19 14:10 Glucose 94 mg/dL (74-106) 04/17/19 14:10 Weight used for dosin kg Estimated Creatinine Clearance: 58 ML/MIN Goal Trough: 15-20 mcg/mL Pharmacy Plan for Drug Dosing: PLAN/RECOMMENDATIONS 1. Vancomycin LOADING dose 1750mg IV x1 04/17/19 @2100 2. Scheduled vancomycin 750mg Q12hrs to start 04/18/19 @0900 3. Trough 04/19/19 @0830, prior to 4th total dose 4. Pharmacy Service will continue to monitor and adjust dosing as required.
[2019-04-17] MEDS: Acetaminophen 325 MG Tablet 650 MG PO (21:46)
--- NOTE | 2019-04-17 22:22 | CON.PCM_ITS ---
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 (2) Ulcer of right foot with fat layer exposed Status: Acute (3) Malnutrition Status: Chronic (4) Cellulitis of right leg Status: Acute (5) Contracture of knee joint Status: Chronic Qualifiers: Laterality: right Qualified Code(s): M24.561 - Contracture, right knee (6) Venous insufficiency Status: Chronic (7) Delayed wound healing Status: Chronic (8) Bilateral edema of lower extremity Status: Chronic Reason for Consult Date of Consultation: 04/17/19 Reason for Consultation: Right leg infection History of Present Illness: 78-year-old male with multiple comorbidities was seen bedside this evening for right leg and heel ulcers with rapidly progressing cellulitis. His pain is moderate. He denies current fever, chill, loss of appetite, chest pain, shortness of breath. He relates he has been visited a couple times a week by home health agency. He reports his leg became red swollen, painful, and with progressive odor over the last day and a half. He noticed a magnet emerged from his heel and he presented to the emergency room. 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) 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) Venous insufficiency (Chronic) CKD (chronic kidney disease) stage 3, GFR 30-59 ml/min (Chronic) Anemia (Chronic) Delayed wound healing (Chronic) Nonischemic cardiomyopathy (Chronic) Chronic systolic CHF (congestive heart failure) (Chronic) Chronic atrial fibrillation (Chronic) Bilateral edema of lower extremity (Chronic) Open wounds involving multiple regions of lower extremity (Chronic) Neuropathic pain, leg, 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) Medical History: Medical History (Last Updated 04/17/19 @ 17:18 by Corwin Costa MD) Essential hypertension (Chronic) I10 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) L97.912 Osteomyelitis of left tibia (Chronic) M86.9 Ulcer of left lower extremity with fat layer exposed (Chronic) L97.922 Ulcer of left lower extremity with necrosis of bone (Chronic) L97.924 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) L97.923 Venous insufficiency (Chronic) I87.2 CKD (chronic kidney disease) stage 3, GFR 30-59 ml/min (Chronic) N18.3 Anemia (Chronic) D64.9 Delayed wound healing (Chronic) T14.8XXD Nonischemic cardiomyopathy (Chronic) I42.8 Chronic systolic CHF (congestive heart failure) (Chronic) I50.22 Chronic atrial fibrillation (Chronic) I48.2 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 left AKA Psychiatric History: No pertinent psych hx Lives: Spouse/ Significant Other Smoking Status: Former smoker Tobacco Use: Cigarettes, Cigars Alcohol: Occasional Drugs: None - *Family History Maternal Family History: Family History (Last Reviewed 04/15/19 @ 15:28 by Kwaku Lancaster MD) Mother Alzheimers disease Grandmother Alzheimers disease Brother Cancer History Items: Dementia Paternal Family History: Family History (Last Reviewed 04/15/19 @ 15:28 by Kwaku Lancaster MD) Mother Alzheimers disease Grandmother Alzheimers disease Brother Cancer History Items: - - venous ulcers Review of Systems Constitutional: Reports: Weakness, Weight Change, Fatigue. Denies: Chills, Fever HEENT: Denies: Sore Throat Cardiovascular: Reports: Edema. Denies: Chest Pain, Claudication, Orthopnea Respiratory: Denies: Shortness of Breath Gastrointestinal: Denies: Nausea, Vomiting Musculoskeletal: Reports: Leg Pain. Denies: Foot Pain Skin: Reports: Skin Changes, Wounds Neurological: Reports: Balance problems, Incoordination Hematologic/ Lymphatic: Reports: Easy Bruising Patient Problems: Active and Suspected Problems (Last Updated 04/17/19 @ 17:18 by Corwin Costa MD) Ulcer of right foot with fat layer exposed (Acute) Wound of right lower extremity (Acute) Cellulitis of right leg (Acute) - Physical Exam General: Alert, Oriented x3, Cooperative, No apparent distress HEENT: Atraumatic Extremities: No cyanosis, Capillary Refill Less than 3 Seconds - All digits right foot, No Calf Tenderness - Compartments remain soft to the right lower extremity however there is remarkable edema and erythema to the leg. He has pain with wound manipulation. There is a negative Travon and Araya sign., Diminished Peripheral Pulses, Edema - Right lower extremity, - - Right knee contracture is rigid Skin: Ulcer/ Wound - 7.9 x 4.7 x 0.2 cm fibrous, eschar, and devitalized ulcer to the anterior lateral right leg is noted. Post debridement measures 8.0 x 5.0 x 0.2 cm area there is no exposed muscle or bone. There is no undermining or bogginess on palpation. There is diffuse erythema around the site and there is no distinct streaking. There is nonpalpable lymph node in the popliteal fossa. The posterior heel ulcer measures 2.8 x 3.0 x 0.1 cm and this is healthy pale granular base. There is no fluctuance or maggots noted at this time. Musculoskeletal: No Tenderness to Palpation of Joints or Extremities, Muscle Wasting, - - Left lower extremity amputation noted remains healed Neurological: - - Altered sensation light touch right lower extremity Psych/Mental Status: Normal Affect, Appropriate Vital Signs Temp Pulse Resp BP Pulse Ox 98.6 F 110 H 18 96/58 L 99 04/17/19 20:00 04/17/19 20:00 04/17/19 20:00 04/17/19 20:00 04/17/19 20:00 Oxygen Delivery Method Room Air Weight: 67.1 kg Body Mass Index (BMI) 19.5 Laboratory Tests Past 24 Hrs 04/17/19 04/17/19 04/17/19 14:10 14:10 14:10 WBC 10.9 RBC 4.09 L Hgb 12.6 L Hct 38.0 L MCV 92.9 MCH 30.8 MCHC 33.2 RDW Std Deviation 48.8 H RDW Coeff of Reinier 14.5 Plt Count 339 MPV 9.9 Immature Gran % (Auto) 0.300 Neut % (Auto) 75.2 H Lymph % (Auto) 14.5 L [place] % (Auto) 8.2 Eos % (Auto) 1.3 Baso % (Auto) 0.5 Absolute Neuts (auto) 8.2 H Absolute Lymphs (auto) 1.58 Nucleated RBC % 0 ESR PT 15.7 H INR 1.3 Sodium 137 Potassium 3.2 L Chloride 103 Carbon Dioxide 28.0 Anion Gap 6 BUN 18 Creatinine 1.00 Estim Creat Clear Calc 57.55 Est GFR (MDRD) Af Amer 93 Est GFR (MDRD) Non-Af 77 BUN/Creatinine Ratio 18.0 Glucose 94 Lactic Acid Calcium 9.2 Total Bilirubin 0.70 AST 14 L ALT 12 L Alkaline Phosphatase 82 C-React Prot Ext Range Total Protein 7.6 Albumin 3.4 Globulin 4.2 Albumin/Globulin Ratio 0.8 L Urine Color Urine Clarity Urine pH Ur Specific [place] Urine Protein Urine Glucose (UA) Urine Ketones Urine Occult Blood Urine Nitrite Urine Bilirubin Urine Urobilinogen Ur Leukocyte Esterase Urine RBC Urine WBC Ur Squamous Epith Cells Urine Bacteria Hyaline Casts Urine Mucus 04/17/19 04/17/19 04/17/19 14:10 14:10 14:10 WBC RBC Hgb Hct MCV MCH MCHC RDW Std Deviation RDW Coeff of Reinier Plt Count MPV Immature Gran % (Auto) Neut % (Auto) Lymph % (Auto) [place] % (Auto) Eos % (Auto) Baso % (Auto) Absolute Neuts (auto) Absolute Lymphs (auto) Nucleated RBC % ESR 54 H PT INR Sodium Potassium Chloride Carbon Dioxide Anion Gap BUN Creatinine Estim Creat Clear Calc Est GFR (MDRD) Af Amer Est GFR (MDRD) Non-Af BUN/Creatinine Ratio Glucose Lactic Acid 1.4 Calcium Total Bilirubin AST ALT Alkaline Phosphatase C-React Prot Ext Range Pending Total Protein Albumin Globulin Albumin/Globulin Ratio Urine Color Urine Clarity Urine pH Ur Specific [place] Urine Protein Urine Glucose (UA) Urine Ketones Urine Occult Blood Urine Nitrite Urine Bilirubin Urine Urobilinogen Ur Leukocyte Esterase Urine RBC Urine WBC Ur Squamous Epith Cells Urine Bacteria Hyaline Casts Urine Mucus 04/17/19 14:30 WBC RBC Hgb Hct MCV MCH MCHC RDW Std Deviation RDW Coeff of Reinier Plt Count MPV Immature Gran % (Auto) Neut % (Auto) Lymph % (Auto) [place] % (Auto) Eos % (Auto) Baso % (Auto) Absolute Neuts (auto) Absolute Lymphs (auto) Nucleated RBC % ESR PT INR Sodium Potassium Chloride Carbon Dioxide Anion Gap BUN Creatinine Estim Creat Clear Calc Est GFR (MDRD) Af Amer Est GFR (MDRD) Non-Af BUN/Creatinine Ratio Glucose Lactic Acid Calcium Total Bilirubin AST ALT Alkaline Phosphatase C-React Prot Ext Range Total Protein Albumin Globulin Albumin/Globulin Ratio Urine Color Yellow Urine Clarity Clear Urine pH 5.0 Ur Specific [place] 1.020 Urine Protein Negative Urine Glucose (UA) Normal Urine Ketones Negative Urine Occult Blood 50 H Urine Nitrite Negative Urine Bilirubin Negative Urine Urobilinogen Normal Ur Leukocyte Esterase Negative Urine RBC 0-5 SEEN Urine WBC 0 SEEN Ur Squamous Epith Cells 0-5 SEEN Urine Bacteria 0 SEEN Hyaline Casts 0-5 SEEN Urine Mucus 0 SEEN Assessment/Plan All Active Problems (Last Updated 04/17/19 @ 17:18 by Corwin Costa MD) Ulcer of right foot with fat layer exposed (Acute) Wound of right lower extremity (Acute) Cellulitis of right leg (Acute) Pressure ulcer, heel, right, unstageable (Acute) Right leg cellulitis Right leg ulcer with fat layer exposed Right heel ulcer with fat layer exposed Right knee contracture Left lower extremity amputation (above knee) Malnutrition Delayed healing Failure to thrive Atrial fibrillation on chronic anticoagulation medication Gait impairment Other comorbidities: Congestive heart failure, chronic kidney disease, chronic anemia, cardiomyopathy, peripheral vascular disease I reviewed and discussed his case today. He remains afebrile. He is tachycardic. His white blood cell count is 10.9 and sedimentation rate is 54. His other diagnostic data was reviewed. His right leg x-rays did not demonstrate any fracture, dislocation, soft tissue emphysema, foreign body or there is remarkable lower extremity edema noted and the anterior leg skin discontinuity is also seen radiographically. There is no soft tissue calcification. Clinically he appears to have an infection and he was started on vancomycin and Zosyn. I recommend infectious disease consultation. It is noted he is very high risk. Cultures were already obtained including wound cultures, urine cultures, and blood cultures in which all of these results are pending. Excisional subcutaneous debridement was performed with a 15 blade after verbal consent was obtained. He tolerated this well without local anesthetic. The purpose was to excise devitalized and nonviable fibrous tissue, biofilm, and slough. Pressure was applied to maintain hemostasis. Betadine wet-to-dry gauze abdominal Kerlix dressing was applied. The leg was cleansed gently with soap. This dressing will be applied and changed daily as well his cellulitis will be monitored. If lack of improvement is noted within the next 24 hours advanced imaging will be considered. He understands he is at risk for limb and life loss to this condition due to the recurrent nature of this, uncontrolled edema, and leg contracture. It is noted he has had noninvasive vascular studies performed in 2016 for which she had normal waveforms at the ankle level on the right. After his infection is better controlled and if further intervention is indicated, vascular studies will be updated. To take nutritional supplementation optimize healing and to offload ulcers to the best visibility will help with his limb salvage plan. Medical management DVT prophylaxis per primary team is greatly appreciated. Thank you for the consultation. Please not hesitate to call if you have any questions. I will continue to follow him closely one house. Linda Cleary DPM, [facility] [phone]
[2019-04-18] VITALS (14 sets, daily range): BP systolic 79–109; BP diastolic 50–68; PULSE 64–127; RESP 18; TEMP 36.7–37.1; O2SAT 98–100
--- NOTE | 2019-04-18 00:39 | NURSING ---
Pt refusing jazz wraps and elevation of RLE as ordered.
[2019-04-18 05:40] LABS: Absolute Lymphocyte Count 0.94 X10^3/uL (0.83-4.51); Absolute Neutrophil Count 9.7 X10^3/uL (2.0-7.7); Basophil# 0.03 X10^3/uL; Basophil% 0.3 % (0-1); Eosinophil# 0.07 X10^3/uL; Eosinophils% 0.6 % (0-5); Hematocrit 36.1 % (40-54); Hemoglobin 11.7 g/dL (13.0-16.5); Lymphocyte # 0.94 X10^3/ul (4.0); Lymphocyte % 8.2 % (19-41); Mean Corp Hgb Conc 32.4 g/dL (32-36); Mean Corpuscular Hgb 30.6 pg (27.0-32.0); Mean Corpuscular Volume 94.5 fL (80-94); Mean Platelet Vol. 9.8 fl (6.2-12.0); Monocyte# 0.71 X10^3/uL; Monocyte% 6.2 % (0-10); NRBC Flagged by Analyzer 0 % (0-5); Neutrophil % 84.4 % (47-70); Platelet Count 295 K/mm3 (150-450); RBC Distribution Width CV 14.6 % (11.6-14.6); RBC Distribution Width SD 50.4 fl (35.1-43.9); Red Blood Count 3.82 M/mm3 (4.6-6.2); White Blood Count 11.5 K/mm3 (4.4-11.0)
[2019-04-18 06:03] LABS: Anion Gap 7 (5-15); BUN 19 mg/dL (7-18); BUN/Creat Ratio 19.3 RATIO (10-20); Calcium,Total 8.5 mg/dL (8.5-10.1); Chloride 110 mmol/L (98-107); Creatinine, Serum 0.98 mg/dL (0.70-1.30); EST Glomerular Filtration Rate 78 mL/min (>60); Est Glom Filt Rate - Afr Amer 95 mL/min (>60); Estimated Creatinine Clearance 59.91 ml/min; Glucose 97 mg/dL (74-106); Potassium 4.1 mmol/L (3.5-5.1); Sodium Level 142 mmol/L (136-145)
[2019-04-18] MEDS: Acetaminophen 325 MG Tablet 650 MG PO ×2 (08:37→22:07)
[2019-04-18] MEDS: Enoxaparin 30 MG/0.3 ML Syringe SC (09:35)
[2019-04-18] MEDS: Metoprolol Tartrate 25 MG Tablet 12.5 MG PO (09:37)
--- NOTE | 2019-04-18 11:15 | CASEMGMT ---
SW let patient and his know on his last most recent admission that patient's advance directives were not on file. Dionne ATKINS MSW
--- NOTE | 2019-04-18 11:59 | PCM.PROGNOTE ---
Patient Problems: Active and Suspected Problems (Last Updated 04/17/19 @ 17:18 by Corwin Costa MD) Ulcer of right foot with fat layer exposed (Acute) Wound of right lower extremity (Acute) Cellulitis of right leg (Acute) Subjective: This 78-year-old male with comorbidities was seen bedside for right heel and leg ulcer with cellulitis. He has been on vancomycin and Zosyn. His pain is mildly reduced compared to yesterday. He denies fever, chill, nausea, loss of appetite. He is more talkative this afternoon. He relates he is unable to get into an MRI machine he has tried this in the past due to his leg contracture. - Physical Exam General: Alert, Oriented x3, Cooperative Extremities: No cyanosis, Capillary Refill Less than 3 Seconds, No Calf Tenderness - negative Travon and Araya sign right lower extremity, Diminished Peripheral Pulses, Edema - Right moderate swelling to left leg decreased compared to yesterday evening, - - He does not have pain on palpation to the ankle joint or foot. Rigid contraction of the right knee is noted Skin: Ulcer/ Wound - There there is a fibrous and devitalized eschar based wound to the anterior lateral right leg without exposed muscle or bone. The peripheral erythema has decreased in intensity and location compared to yesterday evening. There is no streaking. There is no bogginess or fluctuance on palpation. The compartments to the right lower extremity are soft to palpate. He does have tenderness to the posterior medial lower leg several inches above the ankle level. Musculoskeletal: Muscle Wasting Neurological: Sensory exam intact to light touch and pain Psych/Mental Status: Normal Affect, Appropriate Vital Signs Temp Pulse Resp BP Pulse Ox 98.0 F 80 18 101/65 98 04/18/19 08:00 04/18/19 09:37 04/18/19 08:00 04/18/19 08:00 04/18/19 08:00 Oxygen Delivery Method Room Air Weight: 67.1 kg Body Mass Index (BMI) 19.5 Intake and Output for Last 24 Hours 04/16/19 04/17/19 04/18/19 23:59 23:59 23:59 Intake Total 2386 / 2386 Output Total 950 / 950 Balance 1436 / 1436 Laboratory Tests Past 24 Hrs 04/17/19 04/17/19 04/17/19 14:10 14:10 14:10 WBC 10.9 RBC 4.09 L Hgb 12.6 L Hct 38.0 L MCV 92.9 MCH 30.8 MCHC 33.2 RDW Std Deviation 48.8 H RDW Coeff of Reinier 14.5 Plt Count 339 MPV 9.9 Immature Gran % (Auto) 0.300 Neut % (Auto) 75.2 H Lymph % (Auto) 14.5 L [place] % (Auto) 8.2 Eos % (Auto) 1.3 Baso % (Auto) 0.5 Absolute Neuts (auto) 8.2 H Absolute Lymphs (auto) 1.58 Nucleated RBC % 0 ESR PT 15.7 H INR 1.3 Sodium 137 Potassium 3.2 L Chloride 103 Carbon Dioxide 28.0 Anion Gap 6 BUN 18 Creatinine 1.00 Estim Creat Clear Calc 57.55 Est GFR (MDRD) Af Amer 93 Est GFR (MDRD) Non-Af 77 BUN/Creatinine Ratio 18.0 Glucose 94 Lactic Acid Calcium 9.2 Total Bilirubin 0.70 AST 14 L ALT 12 L Alkaline Phosphatase 82 C-React Prot Ext Range Total Protein 7.6 Albumin 3.4 Globulin 4.2 Albumin/Globulin Ratio 0.8 L Urine Color Urine Clarity Urine pH Ur Specific [place] Urine Protein Urine Glucose (UA) Urine Ketones Urine Occult Blood Urine Nitrite Urine Bilirubin Urine Urobilinogen Ur Leukocyte Esterase Urine RBC Urine WBC Ur Squamous Epith Cells Urine Bacteria Hyaline Casts Urine Mucus 04/17/19 04/17/19 04/17/19 14:10 14:10 14:10 WBC RBC Hgb Hct MCV MCH MCHC RDW Std Deviation RDW Coeff of Reinier Plt Count MPV Immature Gran % (Auto) Neut % (Auto) Lymph % (Auto) [place] % (Auto) Eos % (Auto) Baso % (Auto) Absolute Neuts (auto) Absolute Lymphs (auto) Nucleated RBC % ESR 54 H PT INR Sodium Potassium Chloride Carbon Dioxide Anion Gap BUN Creatinine Estim Creat Clear Calc Est GFR (MDRD) Af Amer Est GFR (MDRD) Non-Af BUN/Creatinine Ratio Glucose Lactic Acid 1.4 Calcium Total Bilirubin AST ALT Alkaline Phosphatase C-React Prot Ext Range 24.00 H Total Protein Albumin Globulin Albumin/Globulin Ratio Urine Color Urine Clarity Urine pH Ur Specific [place] Urine Protein Urine Glucose (UA) Urine Ketones Urine Occult Blood Urine Nitrite Urine Bilirubin Urine Urobilinogen Ur Leukocyte Esterase Urine RBC Urine WBC Ur Squamous Epith Cells Urine Bacteria Hyaline Casts Urine Mucus 04/17/19 04/18/19 04/18/19 14:30 05:15 05:15 WBC 11.5 H RBC 3.82 L Hgb 11.7 L Hct 36.1 L MCV 94.5 H MCH 30.6 MCHC 32.4 RDW Std Deviation 50.4 H RDW Coeff of Reinier 14.6 Plt Count 295 MPV 9.8 Immature Gran % (Auto) 0.300 Neut % (Auto) 84.4 H Lymph % (Auto) 8.2 L [place] % (Auto) 6.2 Eos % (Auto) 0.6 Baso % (Auto) 0.3 Absolute Neuts (auto) 9.7 H Absolute Lymphs (auto) 0.94 Nucleated RBC % 0 ESR PT INR Sodium 142 Potassium 4.1 Chloride 110 H Carbon Dioxide 25.0 Anion Gap 7 BUN 19 H Creatinine 0.98 Estim Creat Clear Calc 59.91 Est GFR (MDRD) Af Amer 95 Est GFR (MDRD) Non-Af 78 BUN/Creatinine Ratio 19.3 Glucose 97 Lactic Acid Calcium 8.5 Total Bilirubin AST ALT Alkaline Phosphatase C-React Prot Ext Range Total Protein Albumin Globulin Albumin/Globulin Ratio Urine Color Yellow Urine Clarity Clear Urine pH 5.0 Ur Specific [place] 1.020 Urine Protein Negative Urine Glucose (UA) Normal Urine Ketones Negative Urine Occult Blood 50 H Urine Nitrite Negative Urine Bilirubin Negative Urine Urobilinogen Normal Ur Leukocyte Esterase Negative Urine RBC 0-5 SEEN Urine WBC 0 SEEN Ur Squamous Epith Cells 0-5 SEEN Urine Bacteria 0 SEEN Hyaline Casts 0-5 SEEN Urine Mucus 0 SEEN Medical Necessity - Tobacco Use Smoking Status: Former smoker Tobacco Use: Cigarettes, Cigars Assessment/Plan All Active Problems (Last Updated 04/17/19 @ 17:18 by Corwin Costa MD) Ulcer of right foot with fat layer exposed (Acute) Wound of right lower extremity (Acute) Cellulitis of right leg (Acute) Pressure ulcer, heel, right, unstageable (Acute) Right leg cellulitis improving Right leg ulcer with fat layer exposed Right heel ulcer with fat layer exposed Right knee contracture Left lower extremity amputation (above knee) Malnutrition Delayed healing Failure to thrive Atrial fibrillation on chronic anticoagulation medication Gait impairment Other comorbidities: Congestive heart failure, chronic kidney disease, chronic anemia, cardiomyopathy, peripheral vascular disease I reviewed and discussed his case today. He remains afebrile. His vital signs are stable. His white blood cell count is 11.5 and sedimentation rate is 54. He continues on vancomycin and Zosyn with some improvement compared to yesterday evening. If lack of improvement is noted or abscess formation is suspected an MRI will be considered. It is noted he reports he is had difficulty obtaining this test in the past it is like contracture. I recommend infectious disease consultation and input will be appreciated. It is noted he is very high risk. Cultures were already obtained including wound cultures, urine cultures, and blood cultures in which all of these results are pending. To change dressing daily with Santyl, gauze, Kerlix, and one Brandon wrap. He understands he is at risk for limb and life loss to this condition due to the recurrent nature of this, uncontrolled edema, and leg contracture. It is noted he has had noninvasive vascular studies performed in 2016 for which she had normal waveforms at the ankle level on the right. After his infection is better controlled and if further intervention is indicated, vascular studies will be updated if this would have a treatment plan influence. To take nutritional supplementation optimize healing and to offload ulcers to the best visibility will help with his limb salvage plan. To keep pressure off of the ulcer sites while in bed. Medical management DVT prophylaxis per primary team is greatly appreciated. I will continue to follow him closely in house. I recommend detention facility placement after acute stabilization is achieved. Linda Cleary DPM, [facility] [phone]
--- NOTE | 2019-04-18 14:13 | CON.PCM_ITS ---
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 Reason for Consult: osteo Consulted by: Dr. Pride History of Present Illness: The patient is a 78 year old M with h/o recurrent leg infection/osteo. Had L AKA, wound is doing well. Returned home, had trouble with ability to followup, but had been feeling fine. No fever, no pain in RLE. Had noticed maggots on the floor in his garage, thought it was coming from old food. Found to have R heel wound with maggots present, came to ED, admitted on vanc/zosyn, seen by podiatry. Full ROS performed and neg except as noted above. 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) 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) Venous insufficiency (Chronic) CKD (chronic kidney disease) stage 3, GFR 30-59 ml/min (Chronic) Anemia (Chronic) Delayed wound healing (Chronic) Nonischemic cardiomyopathy (Chronic) Chronic systolic CHF (congestive heart failure) (Chronic) Chronic atrial fibrillation (Chronic) Bilateral edema of lower extremity (Chronic) Open wounds involving multiple regions of lower extremity (Chronic) Neuropathic pain, leg, 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) Allergies/Adverse Reactions: Allergies codeine Adverse Reaction (Verified 04/17/19 12:40) Nausea Home Medications: Ambulatory Orders Medication Instructions Recorded Apixaban [Eliquis] 5 mg PO BID 05/24/17 furosemide 40 mg tablet 40 mg PO DAILY 04/15/19 - Social History SMOKING STATUS:: Former smoker Vital Signs Temp Pulse Resp BP Pulse Ox 98.0 F 113 H 18 101/65 98 04/18/19 08:00 04/18/19 13:23 04/18/19 08:00 04/18/19 08:00 04/18/19 08:00 Oxygen Delivery Method Room Air Weight: 67.1 kg Body Mass Index (BMI) 19.5 Microbiology Past 72 Hours 04/17/19 14:05 Gram Stain - Final Wound - Leg, Right Wound Culture - Preliminary Gram negative rito Gram negative rito#2 04/17/19 14:30 Urine Culture - Preliminary Urine, Clean Catch Mixed Gram Positive Organisms Laboratory Tests Past 24 Hrs 04/17/19 04/17/19 04/17/19 14:10 14:10 14:10 WBC 10.9 RBC 4.09 L Hgb 12.6 L Hct 38.0 L MCV 92.9 MCH 30.8 MCHC 33.2 RDW Std Deviation 48.8 H RDW Coeff of Reinier 14.5 Plt Count 339 MPV 9.9 Immature Gran % (Auto) 0.300 Neut % (Auto) 75.2 H Lymph % (Auto) 14.5 L [place] % (Auto) 8.2 Eos % (Auto) 1.3 Baso % (Auto) 0.5 Absolute Neuts (auto) 8.2 H Absolute Lymphs (auto) 1.58 Nucleated RBC % 0 ESR PT 15.7 H INR 1.3 Sodium 137 Potassium 3.2 L Chloride 103 Carbon Dioxide 28.0 Anion Gap 6 BUN 18 Creatinine 1.00 Estim Creat Clear Calc 57.55 Est GFR (MDRD) Af Amer 93 Est GFR (MDRD) Non-Af 77 BUN/Creatinine Ratio 18.0 Glucose 94 Lactic Acid Calcium 9.2 Total Bilirubin 0.70 AST 14 L ALT 12 L Alkaline Phosphatase 82 C-React Prot Ext Range Total Protein 7.6 Albumin 3.4 Globulin 4.2 Albumin/Globulin Ratio 0.8 L Urine Color Urine Clarity Urine pH Ur Specific [place] Urine Protein Urine Glucose (UA) Urine Ketones Urine Occult Blood Urine Nitrite Urine Bilirubin Urine Urobilinogen Ur Leukocyte Esterase Urine RBC Urine WBC Ur Squamous Epith Cells Urine Bacteria Hyaline Casts Urine Mucus 04/17/19 04/17/19 04/17/19 14:10 14:10 14:10 WBC RBC Hgb Hct MCV MCH MCHC RDW Std Deviation RDW Coeff of Reinier Plt Count MPV Immature Gran % (Auto) Neut % (Auto) Lymph % (Auto) [place] % (Auto) Eos % (Auto) Baso % (Auto) Absolute Neuts (auto) Absolute Lymphs (auto) Nucleated RBC % ESR 54 H PT INR Sodium Potassium Chloride Carbon Dioxide Anion Gap BUN Creatinine Estim Creat Clear Calc Est GFR (MDRD) Af Amer Est GFR (MDRD) Non-Af BUN/Creatinine Ratio Glucose Lactic Acid 1.4 Calcium Total Bilirubin AST ALT Alkaline Phosphatase C-React Prot Ext Range 24.00 H Total Protein Albumin Globulin Albumin/Globulin Ratio Urine Color Urine Clarity Urine pH Ur Specific [place] Urine Protein Urine Glucose (UA) Urine Ketones Urine Occult Blood Urine Nitrite Urine Bilirubin Urine Urobilinogen Ur Leukocyte Esterase Urine RBC Urine WBC Ur Squamous Epith Cells Urine Bacteria Hyaline Casts Urine Mucus 04/17/19 04/18/19 04/18/19 14:30 05:15 05:15 WBC 11.5 H RBC 3.82 L Hgb 11.7 L Hct 36.1 L MCV 94.5 H MCH 30.6 MCHC 32.4 RDW Std Deviation 50.4 H RDW Coeff of Reinier 14.6 Plt Count 295 MPV 9.8 Immature Gran % (Auto) 0.300 Neut % (Auto) 84.4 H Lymph % (Auto) 8.2 L [place] % (Auto) 6.2 Eos % (Auto) 0.6 Baso % (Auto) 0.3 Absolute Neuts (auto) 9.7 H Absolute Lymphs (auto) 0.94 Nucleated RBC % 0 ESR PT INR Sodium 142 Potassium 4.1 Chloride 110 H Carbon Dioxide 25.0 Anion Gap 7 BUN 19 H Creatinine 0.98 Estim Creat Clear Calc 59.91 Est GFR (MDRD) Af Amer 95 Est GFR (MDRD) Non-Af 78 BUN/Creatinine Ratio 19.3 Glucose 97 Lactic Acid Calcium 8.5 Total Bilirubin AST ALT Alkaline Phosphatase C-React Prot Ext Range Total Protein Albumin Globulin Albumin/Globulin Ratio Urine Color Yellow Urine Clarity Clear Urine pH 5.0 Ur Specific [place] 1.020 Urine Protein Negative Urine Glucose (UA) Normal Urine Ketones Negative Urine Occult Blood 50 H Urine Nitrite Negative Urine Bilirubin Negative Urine Urobilinogen Normal Ur Leukocyte Esterase Negative Urine RBC 0-5 SEEN Urine WBC 0 SEEN Ur Squamous Epith Cells 0-5 SEEN Urine Bacteria 0 SEEN Hyaline Casts 0-5 SEEN Urine Mucus 0 SEEN - Other Studies Radiology: [] reviewed Other Studies: [] Route of nutrition/ use of supplements: [] Nutritional Intake: [] IV Site: [] [place] Catheter: [] - Physical Exam General: Alert, Oriented x3, Cooperative, No apparent distress HEENT: Atraumatic, PERRLA, EOMI Neck: Supple, No Nodes Lungs: Clear to auscultation, Normal air movement Cardiovascular: Regular rate, Regular Rhythm Abdomen: Soft, Non Tender, Non-Distended Extremities: No edema Skin: Incision - L AKA well healed, - - R heel wrapped IV Site: Peripheral, without redness Musculoskeletal: No Tenderness to Palpation of Joints or Extremities Neurological: Cranial nerves II-XII grossly intact - Assessment/Plan Antibiotics: [] Assessment/Plan: [] Active and Suspected Problems (Last Updated 04/17/19 @ 17:18 by Corwin Costa MD) Ulcer of right foot with fat layer exposed (Acute) Wound of right lower extremity (Acute) Cellulitis of right leg (Acute) R heel infected ulcer - maggots present on admission. Wound cx showing GNR x2. 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 04/12 grew morganella and serratia. Will order CT of foot to better identify depth of involvement since he cannot tolerate MRI. Cont vanc/zosyn. Will follow, thank you. D/w primary team and case planner.
--- NOTE | 2019-04-18 14:15 | CT_ITS ---
Exam: Contrast CT of the lower leg, ankle and foot. HISTORY: SUSPECTED RT HEEL OSTEO. PAIN RT LOWER POSTERIOR LEG COMPARISON: Radiographs of 04/17/2019. FINDINGS: No specific focal destructive lesion of the bones. No specific evidence for osteomyelitis. Normal mineralization. Degenerative changes of the midfoot. No fractures or dislocations. Soft tissue show nonspecific dorsal soft tissue swelling and a large skin defect of the anterior mid leg. The skin defect extends to the surface of the anterior compartment muscles. There is diffuse soft tissue atrophy. There is induration of the subcutaneous tissues throughout the leg and especially around the ankle. CT/Extremity Lower WITH Contrast IMPRESSION: No specific evidence for osteolytic process to suggest osteomyelitis. Electronically Signed: Jatin Garcia MD at 15:54 EDT , Service support ,
--- NOTE | 2019-04-18 14:48 | PCM.PROGNOTE ---
<Ana Smith - Last Filed: 04/18/19 15:16> Patient Problems: Active and Suspected Problems (Last Updated 04/17/19 @ 17:18 by Corwin Costa MD) Ulcer of right foot with fat layer exposed (Acute) Wound of right lower extremity (Acute) Cellulitis of right leg (Acute) Subjective: Patient seen and examined. Denies fever, chills. Denies significant right lower extremity pain. Reports he feels good. Patient very talkative about various subjects. - Physical Exam General: Alert, Oriented x3, Cooperative HEENT: Atraumatic, PERRLA, EOMI, Normocephalic Neck: Supple, No JVD, Negative Carotid Bruits Lungs: Clear to auscultation, Normal air movement Cardiovascular: - - Atrial fibrillation, rate controlled. Abdomen: Bowel Sounds Present, Soft, Non Tender, Non-Distended Extremities: No clubbing, No cyanosis, No edema, Capillary Refill Less than 3 Seconds Skin: No rashes, No breakdown, - - Chronic nonhealing right lower extremity ulceration, dressing intact. Musculoskeletal: No Tenderness to Palpation of Joints or Extremities, - - Status post left [id number] amputation Neurological: Cranial nerves II-XII grossly intact, Neuro grossly intact Psych/Mental Status: Normal Affect, Appropriate Vital Signs Temp Pulse Resp BP Pulse Ox 98.7 F 71 18 79/57 L 100 04/18/19 14:00 04/18/19 14:00 04/18/19 14:00 04/18/19 14:00 04/18/19 14:00 Oxygen Delivery Method Room Air Weight: 147 lb 14.883 oz Body Mass Index (BMI) 19.5 Intake and Output for Last 24 Hours 04/16/19 04/17/19 04/18/19 23:59 23:59 23:59 Intake Total 2386 / 2386 Output Total 950 / 950 Balance 1436 / 1436 Microbiology Past 72 Hours 04/17/19 14:05 Gram Stain - Final Wound - Leg, Right Wound Culture - Preliminary Gram negative rito Gram negative rito#2 04/17/19 14:30 Urine Culture - Preliminary Urine, Clean Catch Mixed Gram Positive Organisms Laboratory Tests Past 24 Hrs 04/17/19 04/17/19 04/17/19 14:10 14:10 14:30 WBC RBC Hgb Hct MCV MCH MCHC RDW Std Deviation RDW Coeff of Reinier Plt Count MPV Immature Gran % (Auto) Neut % (Auto) Lymph % (Auto) [place] % (Auto) Eos % (Auto) Baso % (Auto) Absolute Neuts (auto) Absolute Lymphs (auto) Nucleated RBC % ESR 54 H Sodium Potassium Chloride Carbon Dioxide Anion Gap BUN Creatinine Estim Creat Clear Calc Est GFR (MDRD) Af Amer Est GFR (MDRD) Non-Af BUN/Creatinine Ratio Glucose Calcium C-React Prot Ext Range 24.00 H Urine RBC 0-5 SEEN Urine WBC 0 SEEN Ur Squamous Epith Cells 0-5 SEEN Urine Bacteria 0 SEEN Hyaline Casts 0-5 SEEN Urine Mucus 0 SEEN 04/18/19 04/18/19 05:15 05:15 WBC 11.5 H RBC 3.82 L Hgb 11.7 L Hct 36.1 L MCV 94.5 H MCH 30.6 MCHC 32.4 RDW Std Deviation 50.4 H RDW Coeff of Reinier 14.6 Plt Count 295 MPV 9.8 Immature Gran % (Auto) 0.300 Neut % (Auto) 84.4 H Lymph % (Auto) 8.2 L [place] % (Auto) 6.2 Eos % (Auto) 0.6 Baso % (Auto) 0.3 Absolute Neuts (auto) 9.7 H Absolute Lymphs (auto) 0.94 Nucleated RBC % 0 ESR Sodium 142 Potassium 4.1 Chloride 110 H Carbon Dioxide 25.0 Anion Gap 7 BUN 19 H Creatinine 0.98 Estim Creat Clear Calc 59.91 Est GFR (MDRD) Af Amer 95 Est GFR (MDRD) Non-Af 78 BUN/Creatinine Ratio 19.3 Glucose 97 Calcium 8.5 C-React Prot Ext Range Urine RBC Urine WBC Ur Squamous Epith Cells Urine Bacteria Hyaline Casts Urine Mucus Medical Necessity - Tobacco Use Smoking Status: Former smoker Tobacco Use: Cigarettes, Cigars Assessment/Plan All Active Problems (Last Updated 04/17/19 @ 17:18 by Corwin Costa MD) Ulcer of right foot with fat layer exposed (Acute) Wound of right lower extremity (Acute) Cellulitis of right leg (Acute) Pressure ulcer, heel, right, unstageable (Acute) 1. Acute on chronic recurrent right lower extremity cellulitis with nonhealing infected right heel ulcer and nonhealing infected right ray ulcer, complicated by peripheral vascular disease-podiatry and infectious disease following. Continue IV Zosyn and IV vancomycin. Wound RN consult. Bedside debridement performed by podiatry. Dressing changes per orders. Plan for SNF at discharge. Follow wound cultures. CT of right lower extremity ordered to rule out right heel osteo. 2. Nonischemic cardiomyopathy/chronic systolic CHF-stable, home Lasix regimen discontinued. 3. Chronic atrial fibrillation-continue metoprolol. Eliquis on hold. Continue Lovenox. 4. Hypertension-stable, continue to monitor. 5. Chronic anemia-stable, trend CBC. 6. Status post left [id number] amputation- PT/OT. DVT prophylaxis-Lovenox subcu Discharge planning: SNF pending medical stabilization and pre-cert. This patient was seen by ELLY Jc under the supervision of Dr. Cueto. <Katie Cueto - Last Filed: 04/18/19 15:51> - Physical Exam Vital Signs Temp Pulse Resp BP Pulse Ox 98.7 F 71 18 79/57 L 100 04/18/19 14:00 04/18/19 14:00 04/18/19 14:00 04/18/19 14:00 04/18/19 14:00 Oxygen Delivery Method Room Air Weight: 147 lb 14.883 oz Body Mass Index (BMI) 19.5 Intake and Output for Last 24 Hours 04/16/19 04/17/19 04/18/19 23:59 23:59 23:59 Intake Total 2386 / 2386 Output Total 950 / 950 Balance 1436 / 1436 Microbiology Past 72 Hours 04/17/19 14:05 Gram Stain - Final Wound - Leg, Right Wound Culture - Preliminary Gram negative rito Gram negative rito#2 04/17/19 14:30 Urine Culture - Preliminary Urine, Clean Catch Mixed Gram Positive Organisms Laboratory Tests Past 24 Hrs 04/17/19 04/17/19 04/18/19 14:10 14:10 05:15 WBC 11.5 H RBC 3.82 L Hgb 11.7 L Hct 36.1 L MCV 94.5 H MCH 30.6 MCHC 32.4 RDW Std Deviation 50.4 H RDW Coeff of Reinier 14.6 Plt Count 295 MPV 9.8 Immature Gran % (Auto) 0.300 Neut % (Auto) 84.4 H Lymph % (Auto) 8.2 L [place] % (Auto) 6.2 Eos % (Auto) 0.6 Baso % (Auto) 0.3 Absolute Neuts (auto) 9.7 H Absolute Lymphs (auto) 0.94 Nucleated RBC % 0 ESR 54 H Sodium Potassium Chloride Carbon Dioxide Anion Gap BUN Creatinine Estim Creat Clear Calc Est GFR (MDRD) Af Amer Est GFR (MDRD) Non-Af BUN/Creatinine Ratio Glucose Calcium C-React Prot Ext Range 24.00 H 04/18/19 05:15 WBC RBC Hgb Hct MCV MCH MCHC RDW Std Deviation RDW Coeff of Reinier Plt Count MPV Immature Gran % (Auto) Neut % (Auto) Lymph % (Auto) [place] % (Auto) Eos % (Auto) Baso % (Auto) Absolute Neuts (auto) Absolute Lymphs (auto) Nucleated RBC % ESR Sodium 142 Potassium 4.1 Chloride 110 H Carbon Dioxide 25.0 Anion Gap 7 BUN 19 H Creatinine 0.98 Estim Creat Clear Calc 59.91 Est GFR (MDRD) Af Amer 95 Est GFR (MDRD) Non-Af 78 BUN/Creatinine Ratio 19.3 Glucose 97 Calcium 8.5 C-React Prot Ext Range Assessment/Plan Patient seen by Ana Smith NP-[place] under my supervision Patient admitted with a complaint of maggots in his right heel wound. He is being managed for cellulitis of the RLE. Patient seen and examined this morning. He denied any fever, chills, pain in his right foot, diarrhea or vomiting. Review of systems otherwise negative. o.e: Vital Signs Height 6 ft 1 in Weight: 147 lb 14.883 oz Weight in Pounds 147.9 lbs Pulse Ox 100 Temperature 98.7 F Pulse Rate 71 Respiratory Rate 18 Blood Pressure [BP] 102/55 Blood Pressure 79/57 Blood Pressure Position [BP] Semi-Fowlers Blood Pressure Position Sitting General: Alert, Oriented x3, Cooperative HEENT: Atraumatic, PERRLA, EOMI, Normocephalic Neck: Supple, No JVD, Negative Carotid Bruits Lungs: Clear to auscultation, Normal air movement Cardiovascular: - - Atrial fibrillation, rate controlled. Abdomen: Bowel Sounds Present, Soft, Non Tender, Non-Distended Extremities: No clubbing, No cyanosis, No edema, Capillary Refill Less than 3 Seconds Skin: Chronic nonhealing right lower extremity ulceration, bandaged Musculoskeletal: No Tenderness to Palpation of Joints or Extremities, - - left AKA Neurological: Cranial nerves II-XII grossly intact, Neuro grossly intact Psych/Mental Status: Normal Affect, Appropriate Plan is to continue IV vancomycin and IV zosyn. He had bedside debridement by podiatry on admission yesternight. ID on board. Wound care nurse consulted. CT of RLE ordered to rule out osteomyelitis of the right foot.- patient unable to tolerate MRI. WOund and blood cultures pending. Nutrition also consulted on account of severe protein calorie malnutrition. BMI is only 19.5. Ensure supplements. Rest of management as per Ana Smith [employer] OPERATOR HELPER-C's note, which I have reviewed and endorsed. Code Visit Inpatient E&M: 34190 Subs Hosp L2
--- NOTE | 2019-04-18 15:05 | ED.RN ---
This RN is taking over care for NUNO Cooper. Pt going down to CT at this time.
[2019-04-18] MEDS: 0.9% Saline Lock 10 ML Syringe IV (15:09)
--- NOTE | 2019-04-18 15:27 | CASEMGMT ---
COURTNEY reviewed chart and ED SW spoke with patient and his . They agreed to SNF placement and would prefer [facility]. SW went into room to talk with patient's . Introduced self and role at [facility]. SW told her SW wanted to confirm the plan. SW told her that the SW spoke with them in the ED and they wanted [facility] [place] at discharge. Patient's said, Oh ok is that the plan? She said she did not talk with the ED SW it must have been her . She thought this would be a good idea if it will help save his leg. SW let her know SW made the referral to [facility]. COURTNEY told her the earliest he would go would be Monday. COURTNEY explained Medicare benefits. She thanked COURTNEY for the update. SW will also talk with patient as it seems like patient's does not remember the conversation they had in ED with COURTNEY. COURTNEY called [facility] with referral and also faxed information. Dionne ATKINS MSW
[2019-04-19] VITALS (10 sets, daily range): BP systolic 96–113; BP diastolic 51–59; PULSE 88–125; RESP 16–18; TEMP 36.6–37.1; O2SAT 95–98
[2019-04-19 07:02] LABS: Hematocrit 32.9 % (40-54); Hemoglobin 10.8 g/dL (13.0-16.5); Mean Corp Hgb Conc 32.8 g/dL (32-36); Mean Corpuscular Hgb 31.4 pg (27.0-32.0); Mean Corpuscular Volume 95.6 fL (80-94); Platelet Count 297 K/mm3 (150-450); RBC Distribution Width CV 14.7 % (11.6-14.6); RBC Distribution Width SD 51.3 fl (35.1-43.9); Red Blood Count 3.44 M/mm3 (4.6-6.2); White Blood Count 8.4 K/mm3 (4.4-11.0)
[2019-04-19 07:19] LABS: Anion Gap 7 (5-15); BUN 18 mg/dL (7-18); Calcium,Total 8.7 mg/dL (8.5-10.1); Chloride 109 mmol/L (98-107); EST Glomerular Filtration Rate 77 mL/min (>60); Est Glom Filt Rate - Afr Amer 93 mL/min (>60); Estimated Creatinine Clearance 58.71 ml/min; Glucose 88 mg/dL (74-106); Potassium 3.8 mmol/L (3.5-5.1); Sodium Level 142 mmol/L (136-145)
[2019-04-19] MEDS: 0.9% Normal Saline 1,000 ML 500 ML IV (08:37)
[2019-04-19] MEDS: Enoxaparin 30 MG/0.3 ML Syringe SC (08:37)
[2019-04-19 09:22] LABS: Vancomycin, Trough Level 16.2 ug/mL (5.0-15.0)
--- NOTE | 2019-04-19 09:32 | PCM.PROGNOTE ---
<Ana Smith - Last Filed: 04/19/19 09:39> Patient Problems: Active and Suspected Problems (Last Updated 04/17/19 @ 17:18 by Corwin Costa MD) Ulcer of right foot with fat layer exposed (Acute) Wound of right lower extremity (Acute) Cellulitis of right leg (Acute) Subjective: Patient seen and examined. Denies fever, chills. Denies significant pain right lower extremity. No acute events overnight. - Physical Exam General: Alert, Oriented x3, Cooperative HEENT: Atraumatic, PERRLA, EOMI, Normocephalic Neck: Supple, No JVD, Negative Carotid Bruits Lungs: Clear to auscultation, Normal air movement Cardiovascular: - - Atrial for ablation, rate controlled. Abdomen: Bowel Sounds Present, Soft, Non Tender, Non-Distended Extremities: No clubbing, No cyanosis, Capillary Refill Less than 3 Seconds, Edema - RLE, Brandon wrap in place. Skin: No rashes, No breakdown, - - Chronic nonhealing right lower extremity ulceration, dressing intact. Musculoskeletal: No Tenderness to Palpation of Joints or Extremities, - - Status post left [id number]-[id number] amputation Neurological: Cranial nerves II-XII grossly intact, Neuro grossly intact Psych/Mental Status: Normal Affect, Appropriate Vital Signs Temp Pulse Resp BP Pulse Ox 97.8 F 119 H 18 96/54 L 97 04/19/19 03:15 04/19/19 07:47 04/19/19 03:15 04/19/19 03:15 04/19/19 03:15 Oxygen Delivery Method Room Air Weight: 147 lb 14.883 oz Body Mass Index (BMI) 19.5 Intake and Output for Last 24 Hours 04/17/19 04/18/19 04/19/19 23:59 23:59 23:59 Intake Total 3572 / 3572 309.4 / 309.4 Output Total 1375 / 1375 175 / 175 Balance 2197 / 2197 134.4 / 134.4 Microbiology Past 72 Hours 04/17/19 14:05 Gram Stain - Final Wound - Leg, Right Wound Culture - Preliminary Gram negative rito Gram negative rito#2 Anaerobic Culture - Preliminary Checking for anaerobes, further studies to follow. 04/17/19 14:30 Urine Culture - Preliminary Urine, Clean Catch Mixed Gram Positive Organisms Laboratory Tests Past 24 Hrs 04/19/19 04/19/19 04/19/19 06:35 06:35 06:35 WBC 8.4 RBC 3.44 L Hgb 10.8 L Hct 32.9 L MCV 95.6 H MCH 31.4 MCHC 32.8 RDW Std Deviation 51.3 H RDW Coeff of Reinier 14.7 H Plt Count 297 MPV 10.0 Sodium 142 Potassium 3.8 Chloride 109 H Carbon Dioxide 26.0 Anion Gap 7 BUN 18 Creatinine 1.00 Estim Creat Clear Calc 58.71 Est GFR (MDRD) Af Amer 93 Est GFR (MDRD) Non-Af 77 BUN/Creatinine Ratio 18.0 Glucose 88 Calcium 8.7 Vancomycin Trough 16.2 H Medical Necessity - Tobacco Use Smoking Status: Former smoker Tobacco Use: Cigarettes, Cigars Assessment/Plan All Active Problems (Last Updated 04/17/19 @ 17:18 by Corwin Costa MD) Ulcer of right foot with fat layer exposed (Acute) Wound of right lower extremity (Acute) Cellulitis of right leg (Acute) Pressure ulcer, heel, right, unstageable (Acute) 1. Acute on chronic recurrent right lower extremity cellulitis with nonhealing infected right heel ulcer with gram-negative organism and nonhealing right ray ulcer, complicated by peripheral vascular disease-podiatry and infectious disease following. Continue IV Zosyn and IV vancomycin. Wound RN consult. Bedside debridement performed by podiatry 04/17/19. Dressing changes per orders. Plan for SNF at discharge. Follow wound cultures. CT of right lower extremity showed no specific evidence for osteolytic process to suggest osteomyelitis. 2. Nonischemic cardiomyopathy/chronic systolic CHF-stable, home Lasix regimen discontinued. 3. Chronic atrial fibrillation-continue metoprolol. Eliquis on hold. Continue Lovenox. 4. Hypertension-stable, continue to monitor. 5. Chronic anemia-stable, trend CBC. 6. Status post left [id number] amputation- PT/OT. 7. Severe protein malnutrition as evidenced by severe weight loss, BMI 19.5. Nutrition consult. Continue dietary supplementation. DVT prophylaxis-Lovenox subcu Discharge planning: SNF pending medical stabilization and pre-cert. This patient was seen by ELLY Jc under the supervision of Dr. Cueto. <Katie Cueto - Last Filed: 04/19/19 12:44> - Physical Exam Vital Signs Temp Pulse Resp BP Pulse Ox 98.7 F 97 18 100/59 L 96 04/19/19 09:15 04/19/19 09:15 04/19/19 09:15 04/19/19 09:15 04/19/19 09:15 Oxygen Delivery Method Room Air Weight: 147 lb 14.883 oz Body Mass Index (BMI) 19.5 Intake and Output for Last 24 Hours 04/17/19 04/18/19 04/19/19 23:59 23:59 23:59 Intake Total 3572 / 3572 309.4 / 309.4 Output Total 1375 / 1375 175 / 175 Balance 2197 / 2197 134.4 / 134.4 Microbiology Past 72 Hours 04/17/19 14:10 Blood Culture - Preliminary Blood Culture (Wb) - Right Forearm No growth in 48 hours. 04/17/19 14:30 Urine Culture - Final Urine, Clean Catch Mixed Gram Positive Organisms 04/17/19 14:05 Gram Stain - Final Wound - Leg, Right Wound Culture - Preliminary Gram negative rito Gram negative rito#2 Anaerobic Culture - Preliminary Checking for anaerobes, further studies to follow. Laboratory Tests Past 24 Hrs 04/19/19 04/19/19 04/19/19 06:35 06:35 06:35 WBC 8.4 RBC 3.44 L Hgb 10.8 L Hct 32.9 L MCV 95.6 H MCH 31.4 MCHC 32.8 RDW Std Deviation 51.3 H RDW Coeff of Reinier 14.7 H Plt Count 297 MPV 10.0 Sodium 142 Potassium 3.8 Chloride 109 H Carbon Dioxide 26.0 Anion Gap 7 BUN 18 Creatinine 1.00 Estim Creat Clear Calc 58.71 Est GFR (MDRD) Af Amer 93 Est GFR (MDRD) Non-Af 77 BUN/Creatinine Ratio 18.0 Glucose 88 Calcium 8.7 Vancomycin Trough 16.2 H Assessment/Plan Patient seen by Ana Smith NP-[place] under my supervision Patient seen and examined this morning. He had no complaints and felt well. Review of systems otherwise negative. Labs and vitals reviewed. o.e: Vital Signs Height 6 ft 1 in Weight: 147 lb 14.883 oz Weight in Pounds 147.9 lbs Pulse Ox 96 Temperature 98.7 F Pulse Rate 97 Respiratory Rate 18 Blood Pressure [BP] 102/55 Blood Pressure 100/59 Blood Pressure Position [BP] Semi-Fowlers Blood Pressure Position Supine General: Alert, Oriented x3, Cooperative HEENT: Atraumatic, PERRLA, EOMI, Normocephalic Neck: Supple, No JVD, Negative Carotid Bruits Lungs: Clear to auscultation, Normal air movement Cardiovascular: - - Atrial fibrillation, rate controlled. Abdomen: Bowel Sounds Present, Soft, Non Tender, Non-Distended Extremities: No clubbing, No cyanosis, No edema, Capillary Refill Less than 3 Seconds Skin: Chronic nonhealing right lower extremity ulceration, bandaged Musculoskeletal: No Tenderness to Palpation of Joints or Extremities, - - left AKA Neurological: Cranial nerves II-XII grossly intact, Neuro grossly intact Psych/Mental Status: Normal Affect, Appropriate Plan is to continue IV vancomycin and IV zosyn. He had bedside debridement by podiatry on admission. ID on board. Wound care nurse consulted. CT of the right lower extremity was negative for any evidence of osteomyelitis. Wound culture grew gram-negative rods with speciation to follow. Blood cultures were negative urine cultured mixed gram-positive organisms. Continue IV vancomycin and Zosyn. Nutrition on board for severe protein calorie malnutrition. For discharge to SNF once medically stable. Rest of management as per Ana Smith NP-C's note, which I have reviewed and endorsed. Code Visit Inpatient E&M: 93283 Subs Hosp L2
--- NOTE | 2019-04-19 10:41 | PCM.RX.CS ---
Consult Pharmacy has been consulted to manage selected antiobiotic: Vancomycin Type of Consult: Follow-up Suspected Infection: Skin/Soft tissue Prior Doses of Antibiotics Received/Current Regimen: Currently on 750mg iv q12h. Labs: Sodium 142 mmol/L (136-145) 04/19/19 06:35 Potassium 3.8 mmol/L (3.5-5.1) 04/19/19 06:35 Chloride 109 mmol/L (98-107) H 04/19/19 06:35 Carbon Dioxide 26.0 mmol/L (21.0-32.0) 04/19/19 06:35 7 (5-15) 04/19/19 06:35 BUN 18 mg/dL (7-18) 04/19/19 06:35 1.00 mg/dL (0.70-1.30) 04/19/19 06:35 Est GFR (MDRD) Af Amer 93 mL/min (>60) 04/19/19 06:35 Est GFR (MDRD) Non-Af 77 mL/min (>60) 04/19/19 06:35 18.0 RATIO (10-20) 04/19/19 06:35 Glucose 88 mg/dL (74-106) 04/19/19 06:35 Vancomycin Trough 16.2 ug/mL (5.0-15.0) H 04/19/19 06:35 Microbiology: Microbiology 04/17/19 14:30 Urine, Clean Catch Urine Culture - Final Mixed Gram Positive Organisms 04/17/19 14:05 Wound - Leg, Right Gram Stain - Final 04/17/19 14:05 Wound - Leg, Right Wound Culture - Preliminary Gram negative rito Gram negative rito#2 04/17/19 14:05 Wound - Leg, Right Anaerobic Culture - Preliminary Checking for anaerobes, further studies to follow. Weight used for dosin.1 kg Estimated Creatinine Clearance: ~60 ml/min Goal Trough: 15-20 mcg/mL Pharmacy Plan for Drug Dosing: Trough level this AM 16.2 (goal range 15-20 mcg/ml). Renal function same. Will continue same dose and get trough level repeated before 4th additional dose on 04.20.19. Pharmacy Service will continue to monitor and adjust dosing as required. Follow-Up Labs: Trough Vancomycin - 04.20.19 @2029 before 2100 dose
--- NOTE | 2019-04-19 11:44 | CASEMGMT ---
COURTNEY spoke with patient regarding going to [facility] at discharge. He said he talked with SW in ED about this. He said he isn't ready for that yet so he thinks he will go home. COURTNEY told him that the physicians think it would be best if he went to [facility] for care as this could help save his leg. He said he will talk with Dr Cleary about it. He then said he thinks they are full. COURTNEY told him that SW already spoke with them and they will have a bed for him. He was surprised they would have a bed. Dionne ATKINS MSW
[2019-04-19] MEDS: Collagenase 30gm Tube 1 APPLIC TOPICAL (13:07)
--- NOTE | 2019-04-19 14:38 | CHAPLAIN ---
Type of Pastoral Visit _x__ Initial Visit ___ Follow-up Visit ___ On-call Visit ___ General Patient Visit ___ Spiritual Assessment ___ Family Conference ___ Bereavement ___ Rapid Response ___ Code Blue ___ Other (describe below) Pastoral Care Referral From _x__ Patient ___ Family ___ Nurse ___ Physician ___ Gasket Winder ___ Business Administration Instructor ___ Other (describe below) Sacrament/Intervention _x__ Active listening ___ Anointing ___ Anabaptist ___ Bereavement ___ Communion _x__ Yin exploration ___ _x__ Life review _x__ Prayer ___ Reconciliation ___ Sacrament of Sick _x__ Supportive presence ___ Wedding ___ Other (describe below) Pastoral Comments
--- NOTE | 2019-04-19 14:56 | PCM.PN.ID ---
Patient Problems: Active and Suspected Problems (Last Updated 04/17/19 @ 17:18 by Corwin Costa MD) Ulcer of right foot with fat layer exposed (Acute) Wound of right lower extremity (Acute) Cellulitis of right leg (Acute) Subjective: Feeling ok, no fever, no n/v/d, planning on going home - Physical Exam General: Alert, Cooperative, No apparent distress Lungs: Clear to auscultation, Normal air movement Cardiovascular: Regular rate, Regular Rhythm Abdomen: Soft, Non Tender, Non-Distended Skin: Ulcer/ Wound - reviewed photos Vital Signs Temp Pulse Resp BP Pulse Ox 98.7 F 97 18 100/59 L 96 04/19/19 09:15 04/19/19 09:15 04/19/19 09:15 04/19/19 09:15 04/19/19 09:15 Oxygen Delivery Method Room Air Weight: 67.1 kg Body Mass Index (BMI) 19.5 Intake and Output for Last 24 Hours 04/17/19 04/18/19 04/19/19 23:59 23:59 23:59 Intake Total 3572 / 3572 309.4 / 309.4 Output Total 1375 / 1375 175 / 175 Balance 2197 / 2197 134.4 / 134.4 Microbiology Past 72 Hours 04/17/19 14:10 Blood Culture - Preliminary Blood Culture (Wb) - Right Forearm No growth in 48 hours. 04/17/19 14:30 Urine Culture - Final Urine, Clean Catch Mixed Gram Positive Organisms 04/17/19 14:05 Gram Stain - Final Wound - Leg, Right Wound Culture - Preliminary Gram negative rito Gram negative rito#2 Anaerobic Culture - Preliminary Checking for anaerobes, further studies to follow. Laboratory Tests Past 24 Hrs 04/19/19 04/19/19 04/19/19 06:35 06:35 06:35 WBC 8.4 RBC 3.44 L Hgb 10.8 L Hct 32.9 L MCV 95.6 H MCH 31.4 MCHC 32.8 RDW Std Deviation 51.3 H RDW Coeff of Reinier 14.7 H Plt Count 297 MPV 10.0 Sodium 142 Potassium 3.8 Chloride 109 H Carbon Dioxide 26.0 Anion Gap 7 BUN 18 Creatinine 1.00 Estim Creat Clear Calc 58.71 Est GFR (MDRD) Af Amer 93 Est GFR (MDRD) Non-Af 77 BUN/Creatinine Ratio 18.0 Glucose 88 Calcium 8.7 Vancomycin Trough 16.2 H Medical Necessity - Tobacco Use Smoking Status: Former smoker Tobacco Use: Cigarettes, Cigars Route of nutrition/ use of supplements: [] Nutritional Intake: [] IV Site: [] Austin Catheter: [] - Assessment/Plan Antibiotics: [] Assessment/Plan: [] Active and Suspected Problems (Last Updated 04/17/19 @ 17:18 by Corwin Costa MD) Ulcer of right foot with fat layer exposed (Acute) Wound of right lower extremity (Acute) Cellulitis of right leg (Acute) R heel infected ulcer - maggots present on admission. Wound cx showing GNR x2. 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 04/12 grew morganella and serratia. CT showed no osteo. Cont vanc/zosyn. Hopefully will able to send home on po abx. Will follow, D/w caser shoe parts.
--- NOTE | 2019-04-19 15:10 | NURSING ---
wound photo: right lower leg
--- NOTE | 2019-04-19 15:11 | NURSING ---
wound photo: right lateral heel/foot
[2019-04-19] MEDS: Metoprolol Tartrate 25 MG Tablet 12.5 MG PO (21:15)
[2019-04-19] MEDS: APIXABAN 5 MG TABLET PO (22:40)
--- NOTE | 2019-04-19 23:01 | PN_ITS ---
Patient Problems: Active and Suspected Problems (Last Updated 04/17/19 @ 17:18 by Corwin Costa MD) Ulcer of right foot with fat layer exposed (Acute) Wound of right lower extremity (Acute) Cellulitis of right leg (Acute) Subjective: This 78-year-old male with multiple comorbidities was seen bedside for right leg ulcers and cellulitis. His pain is still present but slightly decreased. He denies fevers or chills. He is very talkative this evening. - Physical Exam General: Alert, Oriented x3, Cooperative Extremities: No Calf Tenderness - Negative Travon and Araya sign, Diminished Peripheral Pulses, Edema - Decreased right lower extremity edema noted with increased visualization of skin wrinkles Skin: Ulcer/ Wound - Fibrous and eschar leg ulcer with decreased peripheral erythema. No fluctuance or bogginess on palpation. Compartments of right lower extremity remain soft to palpate. The erythema is decreasing in location and intensity to the right lower extremity. There is no longer any odor noted Musculoskeletal: No Tenderness to Palpation of Joints or Extremities, Muscle Wasting, - - Right knee contracture noted Neurological: Sensory exam intact to light touch and pain Psych/Mental Status: Normal Affect, Appropriate Vital Signs Temp Pulse Resp BP Pulse Ox 98.2 F 112 H 18 113/51 L 98 04/19/19 21:05 04/19/19 21:15 04/19/19 21:05 04/19/19 21:15 04/19/19 21:05 Oxygen Delivery Method Room Air Weight: 67.1 kg Body Mass Index (BMI) 19.5 Intake and Output for Last 24 Hours 04/17/19 04/18/19 04/19/19 23:59 23:59 23:59 Intake Total 3572 / 3572 1775.4 / 1775.4 Output Total 1375 / 1375 825 / 825 Balance 2197 / 2197 950.4 / 950.4 Microbiology Past 72 Hours 04/17/19 14:10 Blood Culture - Preliminary Blood Culture (Wb) - Right Forearm No growth in 48 hours. 04/17/19 14:30 Urine Culture - Final Urine, Clean Catch Mixed Gram Positive Organisms 04/17/19 14:05 Gram Stain - Final Wound - Leg, Right Wound Culture - Preliminary Gram negative rito Gram negative rito#2 Anaerobic Culture - Preliminary Checking for anaerobes, further studies to follow. Laboratory Tests Past 24 Hrs 04/19/19 04/19/19 04/19/19 06:35 06:35 06:35 WBC 8.4 RBC 3.44 L Hgb 10.8 L Hct 32.9 L MCV 95.6 H MCH 31.4 MCHC 32.8 RDW Std Deviation 51.3 H RDW Coeff of Reinier 14.7 H Plt Count 297 MPV 10.0 Sodium 142 Potassium 3.8 Chloride 109 H Carbon Dioxide 26.0 Anion Gap 7 BUN 18 Creatinine 1.00 Estim Creat Clear Calc 58.71 Est GFR (MDRD) Af Amer 93 Est GFR (MDRD) Non-Af 77 BUN/Creatinine Ratio 18.0 Glucose 88 Calcium 8.7 Vancomycin Trough 16.2 H Medical Necessity - Tobacco Use Smoking Status: Former smoker Tobacco Use: Cigarettes, Cigars Assessment/Plan All Active Problems (Last Updated 04/17/19 @ 17:18 by Crowin Costa MD) Ulcer of right foot with fat layer exposed (Acute) Wound of right lower extremity (Acute) Cellulitis of right leg (Acute) Pressure ulcer, heel, right, unstageable (Acute) Right leg cellulitis improving Right leg ulcer with fat layer exposed Right heel ulcer with fat layer exposed Right knee contracture Left lower extremity amputation (above knee) Malnutrition Delayed healing Failure to thrive Atrial fibrillation on chronic anticoagulation medication Gait impairment Other comorbidities: Congestive heart failure, chronic kidney disease, chronic anemia, cardiomyopathy, peripheral vascular disease I reviewed and discussed his case today. He remains afebrile. His vital signs are stable. He does not have leukocytosis. He continues on vancomycin and Zosyn with some improvement. His cultures are noted. He had a CT scan performe d of the hindfoot and he does not have evidence of osteomyelitis adjacent to the heel ulcer site. Infectious disease on consultation is greatly appreciated. To continue to change dressing daily with Santyl, gauze, Kerlix, and one Brandon wrap. He understands he is at risk for limb and life loss to this condition due to the recurrent nature of this, uncontrolled edema, and leg contracture. I advised him to go to long-term facility. He is not amenable to this at this time and plans to set up better home care. To continue work with social work on discharge planning. To take nutritional supplementation optimize healing and to offload ulcers to the best visibility will help with his limb salvage plan. To keep pressure off of the ulcer sites while in bed. Medical management DVT prophylaxis per primary team is greatly appreciated. I will continue to follow him closely in house. Please not hesitate to call if you have any questions. Linda Cleary DPM, [facility] [phone]
[2019-04-19] MEDS: Acetaminophen 325 MG Tablet 650 MG PO (23:43)
[2019-04-20] VITALS (7 sets, daily range): BP systolic 101–124; BP diastolic 48–86; PULSE 82–120; RESP 18–20; TEMP 36.1–36.7; O2SAT 96
[2019-04-20] MEDS: Metoprolol Tartrate 25 MG Tablet 12.5 MG PO (10:19)
[2019-04-20] MEDS: Collagenase 30gm Tube 1 APPLIC TOPICAL (10:20)
[2019-04-20] MEDS: APIXABAN 5 MG TABLET PO (12:18)
--- NOTE | 2019-04-20 12:30 | CASEMGMT ---
SOCIAL WORK CALL FROM NURSEAGATA TO UPDATE PATIENT REFUSING D/C TO [facility] THIS DAY. MET WITH PATIENT AND NURSEAGATA IN ROOM. PATIENT STATES REMEMBERS THIS WORKER FROM ED PRIOR TO ADMISSION. PATIENT STATES DOES NOT FEEL HE NEEDS RETIREMENT AT THIS TIME AND STATES FRIEND, SWAPNIL WILL BE ABLE TO ASSIST WITH DRESSING CHANGES ALONG WITH HOME HEALTH. INFORMED PATIENT THIS WORKER WILL NEED TO FOLLOW UP WITH HOME HEALTH TO UPDATE ON CHANGE IN D/C PLAN. VOICED CONCERNS WITH PATIENT RETURNING HOME D/T WOUND NEEDS AND ISSUES WITH FRIEND NOT SHOWING UP FOR WOUND CARE PRIOR TO ADMISSION AND MAGGOTS IN WOUND. PATIENT UNDERSTANDS CONCERNS, BUT STATES WISHES TO RETURN HOME. PATIENT STATES FRIEND, SWAPNIL WILL BE OUT TOMORROW FOR DRESSING CHANGE. PATIENT TO D/C HOME THIS DAY. THIS WORKER TO FOLLOW UP WITH [facility] AND MAKE ADULT PROTECTIVE SERVICES REFERRAL D/T CONCERNS FOR PATIENT IN THE HOME. GEORGE VARELA, FEED PREPARATION OPERATOR, HAND DEICER ELEMENT WINDER.
--- NOTE | 2019-04-20 12:50 | CASEMGMT ---
SOCIAL WORK SPOKE WITH [facility] MACHINE SHOP INSTRUCTORFILLER OPERATOR, CAESAR. UPDATED ON PATIENT'S D/C HOME THIS DAY. CAESAR REQUESTING THIS WORKER FOLLOW UP ON MONDAY WITH INTAKE TO DISCUSS HOME HEALTH NEEDS AND IF [facility] STILL ABLE TO FOLLOW PATIENT. GEORGE VARELA, COURT USHER, SOLE LAYER.
--- NOTE | 2019-04-20 13:33 | DCINST_ITS ---
- Discharge Diagnoses Current Active Problems: Current Active and Chronic Problems (Last Updated 04/17/19 @ 17:18 by Corwin Costa MD) 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) Ulcer of right foot with fat layer exposed (Acute) Malnutrition (Chronic) Wound of right lower extremity (Acute) Cellulitis of right leg (Acute) You will use the following diet at home:: Cardiac Discharge Activity: Return to Normal Activity Call your doctor if you observe: Fever of 101 or Higher, Shortness of breath, Dizziness, Fainting spells, Chest pain Additional Instructions: He will need to complete daily dressing changes with nickel thickness Santyl to right leg and heel ulcer, wrap with gauze and Kerlix followed by Brandon wrap. Cleanse area with saline prior to dressing change. Allergies/Adverse Reactions: Allergies codeine Adverse Reaction (Verified 04/17/19 12:40) Nausea Medications to take at Discharge Apixaban [Eliquis] 5 mg PO BID 05/24/17 furosemide 40 mg tablet 40 mg PO DAILY 04/15/19 Collagenase [Santyl] 1 applic TOPICAL DAILY #1 tube 04/20/19 Levofloxacin [Levaquin] 750 mg PO DAILY #7 tab 04/20/19 Metoprolol Tartrate [Lopressor (beta sumanth)] 12.5 mg PO BID #60 tab 04/20/19 The following prescriptions were given: Levofloxacin [Levaquin] 750 mg PO DAILY #7 tab [facility] Metoprolol Tartrate [Lopressor (beta sumanth)] 12.5 mg PO BID #60 tab Transmission Status: [facility] Collagenase [Santyl] 1 applic TOPICAL DAILY #1 tube Transmission Status: [facility] Primary Care Physician: Phoebe Daniels MD [Primary Care Provider] - Please follow up with your Primary Care Physician in: 1 Week Test Results: Test results from this visit will be discussed in further detail at your follow- up appointment, if applicable. Please Follow Up With: Linda Cleary DPM When: As scheduled 04/28/2019 Please Follow Up With: Clinic,Wound When: 3-5 Days Please Follow Up With: Kwaku Lancaster MD When: As scheduled 06/10/2019 Proposed Discharge Date: 04/20/19
--- NOTE | 2019-04-20 13:40 | DS.PCM_ITS ---
<Ana Smith - Last Filed: 04/20/19 13:47> Discharge Date and Diagnosis Date of Admission: 04/17/19 Date of Discharge: 04/20/19 - Primary Discharge Diagnosis Active and Suspected Problems (Last Updated 04/17/19 @ 17:18 by Corwin Costa MD) 1. Acute on chronic recurrent right lower extremity cellulitis with nonhealing infected right heel ulcer with multiple organisms. 2. Nonischemic cardiomyopathy/chronic systolic CHF 3. Chronic atrial fibrillation 4. Hypertension 5. Chronic anemia 6. Status post left wboxd-rgb-khia amputation 7. 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) 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) Venous insufficiency (Chronic) CKD (chronic kidney disease) stage 3, GFR 30-59 ml/min (Chronic) Anemia (Chronic) Delayed wound healing (Chronic) Nonischemic cardiomyopathy (Chronic) Chronic systolic CHF (congestive heart failure) (Chronic) Chronic atrial fibrillation (Chronic) Bilateral edema of lower extremity (Chronic) Open wounds involving multiple regions of lower extremity (Chronic) Neuropathic pain, leg, 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) Hospital Course and Treatment Imaging Results: Diagnostic Data Chest X-Ray 04/17/19 14:08 IMPRESSION: No acute abnormality is seen. Electronically Signed: Thor Mccallum, at 14:49 EDT , Service support , Tibia/Fibula X-Ray 04/17/19 14:17 IMPRESSION: Soft tissue ulceration/laceration in the anterior mid leg. Electronically Signed: Thor Mccallum, at 14:49 EDT , Service support , Lower Extremity CT 04/18/19 14:15 IMPRESSION: No specific evidence for osteolytic process to suggest osteomyelitis. Electronically Signed: Jatin Garcia MD at 15:54 EDT , Service support , Consultations 04/17/19 18:26 Consult: Onc/Wound/assistant producer Routine Comment: Dr. Cleary- Podiatry Dr. Moya- ID Operations: None Procedures: None Summary of Care Provided: The patient is a 78 year old M admitted 04/17/2019 due to right leg wound. 1. Acute on chronic recurrent right lower extremity cellulitis with nonhealing infected right heel ulcer with wmmxo-srsz-jftuvgdr organism and nonhealing right ray ulcer, complicated by peripheral vascular disease-podiatry and infectious disease following. IV Zosyn and IV vancomycin during admission. Continue antibiotics at discharge with oral Levaquin x1 week. Bedside debridement performed by podiatry 04/17/19. CT of right lower extremity showed no specific evidence for osteolytic process to suggest osteomyelitis. Wound culture positive for Serratia marcescens, alcaligenes, Morganella. All susceptible to Levaquin. Patient strongly encouraged to go to SNF at discharge given recurrent admissions and nonhealing wounds. However patient refused and opted to return home at discharge stating he would get more help with dressing changes. Patient will need daily dressing changes and close follow-up with wound center and podiatry. 2. Nonischemic cardiomyopathy/chronic systolic CHF-stable, home Lasix regimen discontinued. 3. Chronic atrial fibrillation-continue low-dose metoprolol. Continue Eliquis. 4. Hypertension-stable. Blood pressure on the low end during admission. 5. Chronic anemia-stable. 6. Status post left suxph-bvb-gqwf amputation 7. Severe protein malnutrition as evidenced by severe weight loss, BMI 19.5. Continue dietary supplementation. General: Alert, Oriented x3, Cooperative HEENT: Atraumatic, PERRLA, EOMI, Normocephalic Neck: Supple, No JVD, Negative Carotid Bruits Lungs: Clear to auscultation, Normal air movement Cardiovascular: - - Atrial for ablation, rate controlled. Abdomen: Bowel Sounds Present, Soft, Non Tender, Non-Distended Extremities: No clubbing, No cyanosis, Capillary Refill Less than 3 Seconds, Edema - RLE, Brandon wrap in place. Skin: No rashes, No breakdown, - - Chronic nonhealing right lower extremity ulceration, dressing intact. Musculoskeletal: No Tenderness to Palpation of Joints or Extremities, - - Status post left krzjs-abk-boez amputation Neurological: Cranial nerves II-XII grossly intact, Neuro grossly intact Psych/Mental Status: Normal Affect, Appropriate Patient seen and examined prior to discharge. Physical assessment as noted above. Patient is stable for discharge with follow up recommendations as noted above. This patient was seen by ELLY Jc under the supervision of Dr. Cueto. - Physical Exam Vital Signs Temp Pulse Resp BP Pulse Ox 98.0 F 106 H 18 124/86 H 96 04/20/19 09:05 04/20/19 11:09 04/20/19 09:05 04/20/19 09:05 04/20/19 09:05 Oxygen Delivery Method Room Air Weight: 147 lb 14.883 oz Body Mass Index (BMI) 19.5 Intake and Output for Last 24 Hours 04/18/19 04/19/19 04/20/19 23:59 23:59 23:59 Intake Total 3572 / 3572 1775.4 / 2757.4 1280 / 1280 Output Total 1375 / 1375 825 / 1425 1400 / 1400 Balance 2197 / 2197 950.4 / 1332.4 -120 / -120 Microbiology Past 72 Hours 04/17/19 14:05 Gram Stain - Final Wound - Leg, Right Wound Culture - Final Serratia marcescens Alcaligenes faecalis ssp faeca Morganella morganii sp morgani Anaerobic Culture - Final No anaerobic bacteria isolated. 04/17/19 14:10 Blood Culture - Preliminary Blood Culture (Wb) - Right Forearm No growth in 48 hours. 04/17/19 14:30 Urine Culture - Final Urine, Clean Catch Mixed Gram Positive Organisms Discharge Diet: Low fat/ Low Cholesterol Discharge Activity: Return to Normal Activity Call your doctor if you observe: Fever of 101 or Higher, Shortness of breath, Dizziness, Fainting spells, Chest pain Home Medications: Medications to take at Discharge Apixaban [Eliquis] 5 mg PO BID 05/24/17 Collagenase [Santyl] 1 applic TOPICAL DAILY #1 tube 04/20/19 Levofloxacin [Levaquin] 750 mg PO DAILY #7 tab 04/20/19 Metoprolol Tartrate [Lopressor (beta sumanth)] 12.5 mg PO BID #60 tab 04/20/19 Following Prescrptions Were Given to Patient: Levofloxacin [Levaquin] 750 mg PO DAILY #7 tab Transmission Status: Received by [id number] Metoprolol Tartrate [Lopressor (beta sumanth)] 12.5 mg PO BID #60 tab Transmission Status: Received by [id number] Collagenase [Santyl] 1 applic TOPICAL DAILY #1 tube Transmission Status: Received by [id number] Primary Care Physician: Phoebe Daniels MD [Primary Care Provider] - Please follow up with your Primary Care Physician in: 1 Week Please Follow Up With: Linda Cleary DPM When: As scheduled 04/28/2019 Please Follow Up With: Clinic,Wound When: 3-5 Days Please Follow Up With: Kwaku Lancaster MD When: As scheduled 06/10/2019 Disposition: Home with Home Health Minutes spent on discharge:: 35 Patient Condition:: Stable Medical Necessity - Tobacco Use Smoking Status: Former smoker Tobacco Use: Cigarettes, Cigars Meaningful Use Info Meaningful Use Diagnoses (Choose all that apply): None applicable <Katie Cueto - Last Filed: 04/20/19 14:11> Discharge Date and Diagnosis - Secondary Discharge Diagnosis Chronic Problems (Last Updated 04/17/19 @ 17:18 by Corwin Costa MD) 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) Malnutrition (Chronic) Contracture of knee joint (Chronic) Alcohol abuse (Chronic) Essential hypertension (Chronic) 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) Ulcer of left lower extremity with fat layer exposed (Chronic) Ulcer of left lower extremity with necrosis of bone (Chronic) 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) Venous insufficiency (Chronic) CKD (chronic kidney disease) stage 3, GFR 30-59 ml/min (Chronic) Anemia (Chronic) Delayed wound healing (Chronic) Nonischemic cardiomyopathy (Chronic) Chronic systolic CHF (congestive heart failure) (Chronic) Chronic atrial fibrillation (Chronic) Bilateral edema of lower extremity (Chronic) Open wounds involving multiple regions of lower extremity (Chronic) Neuropathic pain, leg, 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 He had a history of right lower extremity cellulitis with a nonhealing ulcer and had been following up with the wound care center as outpatient. Was also has been having dressing changes done every day at home but this had not been happening as he said he could not get his home health nurse to come to his activity to do the dressing change. He denied any fever or chills. He was admitted and managed for right lower extremity cellulitis with chronic nonhealing right leg ulcer. He was started on IV vancomycin and Zosyn. Podiatry was consulted and he had bedside debridement of the wound done on the day of admission. Infectious disease was also consulted. CT of the right lower extremity done was negative for osteomyelitis. Of note, patient could not tolerate MRI. Wound cultures Serratia, Morganella and Alcaligenes sp, all sensitive to levaquin. Physical therapy evaluated patient and deemed patient does need an additional therapy in a skilled rehab facility. Patient however adamantly refused to go and insisted on going home. Patient remained stable and was discharged home on 04/20/2019. He was discharged with a prescription for p.o. Levaquin. He is to have daily dressing changes and is to follow-up with wound care center and podiatry. Patient seen and examined prior to discharge. He had no complaints and felt well. Review of systems otherwise negative. Labs and vitals reviewed. Home medication reviewed and reconciled. o/e: [] Vital Signs Height 6 ft 1 in Weight: 147 lb 14.883 oz Weight in Pounds 147.9 lbs Pulse Ox 96 Temperature 98.0 F Pulse Rate 106 Respiratory Rate 18 Blood Pressure [BP] 102/55 Blood Pressure 124/86 Blood Pressure Position [BP] Semi-Fowlers Blood Pressure Position Semi-Fowlers General: Alert, Oriented x3, Cooperative HEENT: Atraumatic, PERRLA, EOMI, Normocephalic Neck: Supple, No JVD, Negative Carotid Bruits Lungs: Clear to auscultation, Normal air movement Cardiovascular: - - Atrial fibrillation, rate controlled. Abdomen: Bowel Sounds Present, Soft, Non Tender, Non-Distended Extremities: No clubbing, No cyanosis, No edema, Capillary Refill Less than 3 S econds Skin: Chronic nonhealing right lower extremity ulceration, bandaged Musculoskeletal: No Tenderness to Palpation of Joints or Extremities, - - left AKA Neurological: Cranial nerves II-XII grossly intact, Neuro grossly intact Psych/Mental Status: Normal Affect, Appropriate Rest of management as per Ana Smith BUSINESS COORDINATOR-C's note, which I have reviewed and endorsed. - Physical Exam Vital Signs Temp Pulse Resp BP Pulse Ox 98.0 F 106 H 18 124/86 H 96 04/20/19 09:05 04/20/19 11:09 04/20/19 09:05 04/20/19 09:05 04/20/19 09:05 Oxygen Delivery Method Room Air Weight: 147 lb 14.883 oz Body Mass Index (BMI) 19.5 Intake and Output for Last 24 Hours 04/18/19 04/19/19 04/20/19 23:59 23:59 23:59 Intake Total 3572 / 3572 1775.4 / 2757.4 1280 / 1280 Output Total 1375 / 1375 825 / 1425 1400 / 1400 Balance 2197 / 2197 950.4 / 1332.4 -120 / -120 Microbiology Past 72 Hours 04/17/19 14:05 Gram Stain - Final Wound - Leg, Right Wound Culture - Final Serratia marcescens Alcaligenes faecalis ssp faeca Morganella morganii sp morgani Anaerobic Culture - Final No anaerobic bacteria isolated. 04/17/19 14:10 Blood Culture - Preliminary Blood Culture (Wb) - Right Forearm No growth in 48 hours. 04/17/19 14:30 Urine Culture - Final Urine, Clean Catch Mixed Gram Positive Organisms Code Visit Inpatient E&M: 06859 Disch Hosp
--- NOTE | 2019-04-20 15:30 | CASEMGMT ---
SOCIAL WORK CALL TO [facility] WITH [employer]. LEFT MESSAGE. WILL FOLLOW UP MONDAY. GEORGE VARELA, BOAT CLEANING SUPERVISOR, GEOPHYSICAL PROSPECTING PERMIT AGENT.
--- NOTE | 2019-04-22 14:16 | CASEMGMT ---
Addendum entered by Blaine Arreguin 04/22/19 14:54: Return call received from Cate, [facility]. She states pt's friend who is a nurse is helping pt with dressing changes, and [facility] nurse will initiate care tomorrow. Original Note: NUNO BRANCH DC PHONE CALL DC DATE: 04/20/19 DC Disposition: Home with [facility] Diagnosis on Discharge: L leg cellulitis LACE/STRATA: 29/12 Attempted call to home phone. No answer. Pt is active with [facility]. Call to Cate @ [facility], message left requesting call back to see if pt's case has been opened. Suresh SAHUN RN ACM
== END 2019-04-20 14:25 | disposition home or self-care (01) | DRG 570 ==
LOC: ED 16:33 → PCU 17:45
PROVIDERS: Nurse Practitioner Family; Admitting Provider Hospitalist; Emergency Provider Emergency Medicine; Family Provider Internal Medicine; PCP Internal Medicine; Referring Provider Hospitalist; Visit Provider Student in an Organized Health Care Education/Training Program
DX: L03.115 Cellulitis of right lower limb (principal); E43 Unspecified severe protein-calorie malnutrition; I50.22 Chronic systolic (congestive) heart failure; I13.0 Hypertensive heart and chronic kidney disease with heart failure and stage 1 through stage 4 chronic kidney disease, or unspecified chronic kidney disease; I42.9 Cardiomyopathy, unspecified; Z68.1 Body mass index [BMI] 19.9 or less, adult; L97.512 Non-pressure chronic ulcer of other part of right foot with fat layer exposed; L98.492 Non-pressure chronic ulcer of skin of other sites with fat layer exposed; Z86.14 Personal history of Methicillin resistant Staphylococcus aureus infection; Z99.3 Dependence on wheelchair; M24.561 Contracture, right knee; N18.3 Chronic kidney disease, stage 3 (moderate); I48.2 Chronic atrial fibrillation; I73.9 Peripheral vascular disease, unspecified; Z79.02 Long term (current) use of antithrombotics/antiplatelets; Z79.899 Other long term (current) drug therapy; D63.8 Anemia in other chronic diseases classified elsewhere; Z87.891 Personal history of nicotine dependence; R62.7 Adult failure to thrive; Z89.612 Acquired absence of left leg above knee; B96.89 Other specified bacterial agents as the cause of diseases classified elsewhere
CPT/HCPCS: 36415; 71045; 73590; 73701; 80048; 80053; 80202; 81001; 83605; 85025; 85027; 85610; 85652; 86140; 87040; 87070; 87075; 87077; 87086; 87088; 87186; 87205; 97110; 97162; 97166; 97802; 99284; J7030; J7040; J7050; J7120; Q9967; A4216; J0744

== ENCOUNTER 2019-05-15 15:00 | Outpatient (RCR) | payer MEDICARE, OTHER, SELFPAY ==
[2019-04-17 18:07] VITALS: BMI 19.5
[2019-04-18 00:09] VITALS: BP 78/40; PULSE 110; RESP 16; TEMP 37.7
[2019-04-24 16:17] VITALS: BP 99/49; PULSE 110; RESP 20; TEMP 37.2; BMI 19.5
--- NOTE | 2019-04-24 17:00 | PCM.WC.PN ---
(1) Ulcer of right lower extremity with fat layer exposed Status: Chronic Current Visit: Yes Code(s): L97.912 - Non-pressure chronic ulcer of unspecified part of right lower leg with fat layer exposed (2) Malnutrition Status: Chronic Current Visit: Yes Code(s): E46 - Unspecified protein-calorie malnutrition (3) Contracture of knee joint Status: Chronic Current Visit: Yes Qualifiers: Code(s): M24.569 - Contracture, unspecified knee (4) Venous insufficiency Status: Chronic Current Visit: Yes Code(s): I87.2 - Venous insufficiency (chronic) (peripheral) (5) Delayed wound healing Status: Chronic Current Visit: Yes Code(s): T14.8XXD - Other injury of unspecified body region, subsequent encounter (6) Bilateral edema of lower extremity Status: Chronic Current Visit: Yes Code(s): R60.0 - Localized edema (7) 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 He is well-known to me and I was treating him last week on the inpatient setting for cellulitis, maggot infestation and infection. He has a home nurse visiting who helps with Santyl dressings. He is completed course of antibiotics. He is continue to follow-up with orthopedics in regards to his knee contracture and understands he is at risk for limb loss. He denies current fever, chill, nausea, vomiting. He has continued pain however it is reduced compared to 1 week ago. He presents in a wheelchair. Progress of Wound: Continued deteriorating ulcer status - Physical Exam Vital Signs Temp Pulse Resp BP 98.9 F 110 H 20 H 99/49 L 04/24/19 16:17 04/24/19 16:17 04/24/19 16:17 04/24/19 16:17 General: Alert, Oriented x3, Cooperative, No apparent distress Extremities: No cyanosis, Capillary Refill Less than 3 Seconds, No Calf Tenderness - Negative Araya sign right, Diminished Peripheral Pulses, Edema - Right lower extremity, - - Right lower extremity amputation noted Skin: Ulcer/ Wound - No purulence, erythema, streaking, odor, infection noted today. The right lateral leg is fibrous with reduced eschar tissue noted and there is some new granulation tissue noted. The right heel ulcer has pale granular base with no longer any eschar fibrous tissue noted. There is no deep probing. There is some skin discontinuity with some hemorrhagic changes and maceration to the right lower leg. No exposed deep tendon or bone., - - The peripheral skin is hairless and atrophic. Wound Measurements and Assessment WC - Nurse 1 - General Ulcer Measurement Start: 04/24/19 16:17 Freq: Status: Active Protocol: Activity Type Activity Date Activity User E-Sign Co-Sign Detail Recorded Client Recorded Date Recorded By Document 04/24/19 16:17 DL [id number] 04/24/19 16:29 DL 04/24/19 16:17 Wound Center Nurse 1 [Ulcer Assessment] #11- R LAT FOOT -Current Size (cm) - Length 0.8 -Current Size (cm) - Width 0.7 -Current Size (cm) - Depth 0.2 -Total Square Cm 0.56 -Photo Taken No -Exudate Amt Small -Exudate Type Serosanguineous -Wound Margin Distinct, Outline Attached -Granulation Amt None Present (0 %) -Necrosis Amt Large (67-100%) -Necrotic Tissue Type Adherent Slough -Structure Exposed N/A -Texture (Cyndy-wound Skin Appearance) Scarring -Moisture (Cyndy-wound Skin Appearance Weeping ) -Color (Cyndy-wound Skin Appearance) Erythema, Hemosiderin Staining,Rubor -Temperature (Cyndy-wound Skin No Abnormality Appearance) (Pt Warm) -Tenderness on Palpation (Cyndy-wound No Skin Appearance) -Ulcer Cleansing Wound Cleanser -Foul Odor after Cleansing No -Anesthetic Used 4% Lidocaine Solution #10- R LAT HEEL -Current Size (cm) - Length 3 -Current Size (cm) - Width 2.7 -Current Size (cm) - Depth 0.2 -Total Square Cm 8.1 -Photo Taken No -Exudate Amt Medium -Exudate Type Serosanguineous -Wound Margin Distinct, Outline Attached -Granulation Amt None Present (0 %) -Necrosis Amt Large (67-100%) -Necrotic Tissue Type Adherent Slough -Structure Exposed N/A -Texture (Cyndy-wound Skin Appearance) Localized Edema ,Scarring -Moisture (Cyndy-wound Skin Appearance Weeping ) -Color (Cyndy-wound Skin Appearance) Erythema, Hemosiderin Staining,Rubor -Temperature (Cyndy-wound Skin No Abnormality Appearance) (Pt Warm) -Tenderness on Palpation (Cyndy-wound No Skin Appearance) -Ulcer Cleansing Wound Cleanser -Foul Odor after Cleansing No -Anesthetic Used 4% Lidocaine Solution #9- R MCDOWELL INFERIOR/LAT LEG -Current Size (cm) - Length 3.5 -Current Size (cm) - Width 10 -Current Size (cm) - Depth 0.2 -Total Square Cm 35.0 -Photo Taken No -Exudate Amt Large -Exudate Type Serosanguineous -Wound Margin Distinct, Outline Attached -Granulation Amt Medium (34-66%) -Granulation Quality [place],Red -Necrosis Amt Medium (34-66%) -Necrotic Tissue Type Adherent Slough -Structure Exposed N/A -Texture (Cyndy-wound Skin Appearance) Localized Edema ,Scarring -Moisture (Cyndy-wound Skin Appearance Weeping ) -Color (Cyndy-wound Skin Appearance) Erythema, Hemosiderin Staining,Rubor -Temperature (Cyndy-wound Skin No Abnormality Appearance) (Pt Warm) -Tenderness on Palpation (Cyndy-wound No Skin Appearance) -Ulcer Cleansing Wound Cleanser -Foul Odor after Cleansing No -Anesthetic Used 4% Lidocaine Solution #8- R MCDOWELL SUPERIOR -Current Size (cm) - Length 10.3 -Current Size (cm) - Width 5.7 -Current Size (cm) - Depth 0.4 -Total Square Cm 58.71 -Photo Taken No -Exudate Amt Large -Exudate Type Serosanguineous -Wound Margin Distinct, Outline Attached -Granulation Amt Medium (34-66%) -Necrosis Amt Medium (34-66%) -Necrotic Tissue Type Adherent Slough -Structure Exposed N/A -Texture (Cyndy-wound Skin Appearance) Localized Edema ,Scarring -Moisture (Cyndy-wound Skin Appearance Weeping ) -Color (Cyndy-wound Skin Appearance) Erythema, Hemosiderin Staining,Rubor -Temperature (Cyndy-wound Skin No Abnormality Appearance) (Pt Warm) -Tenderness on Palpation (Cyndy-wound No Skin Appearance) -Ulcer Cleansing Wound Cleanser -Foul Odor after Cleansing No -Anesthetic Used 4% Lidocaine Solution [Edema Assessment] -Right Calf (cm) 45.5 -Right Ankle (cm) 27 WC - Nurse 2 - General Ulcer CM Notes Start: 04/24/19 16:17 Freq: Status: Active Protocol: Activity Type Activity Date Activity User E-Sign Co-Sign Detail Recorded Client Recorded Date Recorded By Document 04/24/19 16:35 VALENTE [id number] 04/24/19 16:42 AN 04/24/19 16:35 Wound Center Nurse 2 [Procedure/Treatment] #11- R LAT FOOT -Time 16:39 -Correct Patient Yes -Correct Side, Site, Position Yes -Correct Procedure Yes -Procedure Performed Yes -Type of Procedure Debridement -Clinical Debridement Subcutaneous -Post Debridement Size (cm) - Length 0.9 -Post Debridement Size (cm) - Width 0.8 -Post Debridement Size (cm) - Depth 0.2 -Total Square Cm 0.72 -Wound/Ulcer Outcome Not Healed -Bleeding Controlled with Pressure -Offloading No -Treatment Response Procedure Tolerated Well #10- R LAT HEEL -Time 16:39 -Correct Patient Yes -Correct Side, Site, Position Yes -Correct Procedure Yes -Procedure Performed Yes -Type of Procedure Debridement -Clinical Debridement Subcutaneous -Post Debridement Size (cm) - Length 3.1 -Post Debridement Size (cm) - Width 2.8 -Post Debridement Size (cm) - Depth 0.2 -Total Square Cm 8.68 -Wound/Ulcer Outcome Not Healed -Bleeding Controlled with Pressure -Offloading No -Treatment Response Procedure Tolerated Well #9- R MCDOWELL INFERIOR/LAT LEG -Time 16:40 -Correct Patient Yes -Correct Side, Site, Position Yes -Correct Procedure Yes -Procedure Performed Yes -Type of Procedure Debridement -Clinical Debridement Subcutaneous -Post Debridement Size (cm) - Length 3.6 -Post Debridement Size (cm) - Width 10.1 -Post Debridement Size (cm) - Depth 0.2 -Total Square Cm 36.36 -Wound/Ulcer Outcome Not Healed -Ulcer Cleansing Rinsed/ Irrigated with Saline -Bleeding Controlled with Pressure -Offloading No -Treatment Response Procedure Tolerated Well #8- R MCDOWELL SUPERIOR -Time 16:41 -Correct Patient Yes -Correct Side, Site, Position Yes -Correct Procedure Yes -Procedure Performed Yes -Type of Procedure Debridement -Clinical Debridement Subcutaneous -Post Debridement Size (cm) - Length 10.4 -Post Debridement Size (cm) - Width 5.8 -Post Debridement Size (cm) - Depth 0.4 -Total Square Cm 60.32 -Wound/Ulcer Outcome Not Healed -Ulcer Cleansing Rinsed/ Irrigated with Saline -Bleeding Controlled with Pressure -Offloading No -Treatment Response Procedure Tolerated Well [See Physician Procedure note for Specifics] Pain Scale: 0-10 Numeric [Pain] -Is Patient Pain Free? Yes Musculoskeletal: No Tenderness to Palpation of Joints or Extremities, Muscle Wasting Neurological: Sensory exam intact to light touch and pain Psych/Mental Status: Normal Affect, Appropriate Debridement Note Post-Debridement Measurements/Treatment WC - Nurse 2 - General Ulcer CM Notes Start: 04/24/19 16:17 Freq: Status: Active Protocol: Activity Type Activity Date Activity User E-Sign Co-Sign Detail Recorded Client Recorded Date Recorded By Document 04/24/19 16:35 AN [id number] 04/24/19 16:42 AN 04/24/19 16:35 Wound Center Nurse 2 #11- R LAT FOOT -Time 16:39 -Correct Patient Yes -Correct Side, Site, Position Yes -Correct Procedure Yes -Procedure Performed Yes -Type of Procedure Debridement -Clinical Debridement Subcutaneous -Post Debridement Size (cm) - Length 0.9 -Post Debridement Size (cm) - Width 0.8 -Post Debridement Size (cm) - Depth 0.2 -Total Square Cm 0.72 -Wound/Ulcer Outcome Not Healed -Bleeding Controlled with Pressure -Offloading No -Treatment Response Procedure Tolerated Well #10- R LAT HEEL -Time 16:39 -Correct Patient Yes -Correct Side, Site, Position Yes -Correct Procedure Yes -Procedure Performed Yes -Type of Procedure Debridement -Clinical Debridement Subcutaneous -Post Debridement Size (cm) - Length 3.1 -Post Debridement Size (cm) - Width 2.8 -Post Debridement Size (cm) - Depth 0.2 -Total Square Cm 8.68 -Wound/Ulcer Outcome Not Healed -Bleeding Controlled with Pressure -Offloading No -Treatment Response Procedure Tolerated Well #9- R MCDOWELL INFERIOR/LAT LEG -Time 16:40 -Correct Patient Yes -Correct Side, Site, Position Yes -Correct Procedure Yes -Procedure Performed Yes -Type of Procedure Debridement -Clinical Debridement Subcutaneous -Post Debridement Size (cm) - Length 3.6 -Post Debridement Size (cm) - Width 10.1 -Post Debridement Size (cm) - Depth 0.2 -Total Square Cm 36.36 -Wound/Ulcer Outcome Not Healed -Ulcer Cleansing Rinsed/ Irrigated with Saline -Bleeding Controlled with Pressure -Offloading No -Treatment Response Procedure Tolerated Well #8- R MCDOWELL SUPERIOR -Time 16:41 -Correct Patient Yes -Correct Side, Site, Position Yes -Correct Procedure Yes -Procedure Performed Yes -Type of Procedure Debridement -Clinical Debridement Subcutaneous -Post Debridement Size (cm) - Length 10.4 -Post Debridement Size (cm) - Width 5.8 -Post Debridement Size (cm) - Depth 0.4 -Total Square Cm 60.32 -Wound/Ulcer Outcome Not Healed -Ulcer Cleansing Rinsed/ Irrigated with Saline -Bleeding Controlled with Pressure -Offloading No -Treatment Response Procedure Tolerated Well Pain Scale: 0-10 Numeric Is Patient Pain Free? Yes Wound debrided: lateral leg Laterality: Right Type of Debridement: Excisional debridement Anesthesia Used: 5% Lidocaine Gel Depth: in the subcutaneous layer Percentage of wound debrided: 100 Instrument Used: #15 blade Tissue Removed: fibrous, devitalized subcutaneous, biofilm, slough Severity: Fat Layer Exposed Amount of bleeding with debridement: Mild Bleeding Controlled with: Pressure Patient tolerated procedure well - Additional Wound Wound debrided: heel Laterality: Right Type of Debridement: Excisional debridement Anesthesia Used: 5% Lidocaine Gel Depth: in the subcutaneous layer Percentage of wound debrided: 100 Instrument Used: #15 blade Tissue Removed: fibrous, devitalized subcutaneous, biofilm, slough Severity: Fat Layer Exposed Amount of bleeding with debridement: Mild Bleeding Controlled with: Pressure Patient tolerated procedure: Patient tolerated procedure well Assessment/Plan Active Problems (Last Updated 04/17/19 @ 17:18 by Corwin Costa MD) Knee contracture (Chronic) 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) Malnutrition (Chronic) Contracture of knee joint (Chronic) Venous insufficiency (Chronic) Delayed wound healing (Chronic) Bilateral edema of lower extremity (Chronic) PAOD (peripheral arterial occlusive disease) (Chronic) Assessment: Right leg ulcer with fat layer exposed, cellulitis resolved. Right heel ulcer with fat layer exposed, maggots infestation resolved. Malnutrition. Peripheral vascular disease. 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 Bilateral lower leg edema swelling increased in the left leg. Neuropathy lower extremities. Atrial fibrillation. Non compliance. Venous insufficiency. Left acute DVT has been ruled out Plan: I reviewed and discuss his case. It is noted he continues on antibiotics under the management of infectious disease. His diagnostic data was recently reviewed during his last hospital admission. He has known peripheral vascular disease and chronic venous insufficiency is also suspected. His ulcers were debrided as noted in the clinical panel. To continue daily Santyl application with his home health nurse. To offload by keeping pressure off of the sites. He understands his knee contracture is an issue for healing and functionality. He understands he is high risk for amputation and this may be more functional for him. He would like to proceed with a limb salvage plan at this time. To take nutritional supplementation to optimize healing. To monitor for development of infection. This has improved compared to last week. To continue with periodic elevation and application of Brandon wrap to control edema. I answered his questions. He will return to the wound healing center 1 week or call sooner if you have any questions or concerns.
[2019-05-08 16:29] VITALS: BP 100/45; PULSE 120; RESP 18; TEMP 38.1; BMI 19.5
--- NOTE | 2019-05-08 17:06 | PN.PCM_ITS ---
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: Acute Current Visit: Yes Code(s): L97.512 - Non-pressure chronic ulcer of other part of right foot with fat layer exposed (2) Ulcer of right lower extremity with fat layer exposed Status: Chronic Current Visit: Yes Code(s): L97.912 - Non-pressure chronic ulcer of unspecified part of right lower leg with fat layer exposed (3) Malnutrition Status: Chronic Current Visit: Yes Code(s): E46 - Unspecified protein- calorie malnutrition (4) Contracture of knee joint Status: Chronic Current Visit: Yes Qualifiers: Code(s): M24.569 - Contracture, unspecified knee (5) Venous insufficiency Status: Chronic Current Visit: Yes Code(s): I87.2 - Venous insufficiency (chronic) (peripheral) (6) Delayed wound healing Status: Chronic Current Visit: Yes Code(s): T14.8XXD - Other injury of unspecified body region, subsequent encounter (7) Bilateral edema of lower extremity Status: Chronic Current Visit: Yes Code(s): R60.0 - Localized edema (8) 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 He is well-known to me and I was treating him recently in the inpatient setting for cellulitis, maggot infestation and infection. He has a home nurse visiting who helps with Santyl dressings. He has a home health nurse and also privately hired nurse to help with this. He has completed course of antibiotics. He is continue to follow-up with orthopedics in regards to his knee contracture and understands he is at risk for limb loss. He has peripheral vascular disease. He denies current fever, chill, nausea, vomiting. He has continued pain however it is reduced compared to several weeks ago. He presents in a wheelchair. He tries to apply the Brandon wrap intermittently as tolerated. Progress of Wound: Stable. New right foot ulcer - Physical Exam Vital Signs Temp Pulse Resp BP 100.5 F H 120 H 18 100/45 L 05/08/19 16:29 05/08/19 16:29 05/08/19 16:29 05/08/19 16:29 General: Alert, Oriented x3, Cooperative, No apparent distress Extremities: No cyanosis, Capillary Refill Less than 3 Seconds, No Calf Tenderness - Negative Travon and Araya sign right lower extremity, Diminished Peripheral Pulses, Edema, - - Right knee contracture nonreducible. Left lower extremity amputation is noted Skin: Ulcer/ Wound - No purulence, erythema, streaking, odor, infection right lower extremity. No maggots or deep tissue exposure noted., - - The peripheral skin is hairless atrophic. The ulcer sites are devitalized Wound Measurements and Assessment WC - Nurse 1 - General Ulcer Measurement Start: 04/24/19 16:17 Freq: Status: Active Protocol: Activity Type Activity Date Activity User E-Sign Co-Sign Detail Recorded Client Recorded Date Recorded By Document 05/08/19 16:29 [facility] [id number] 05/08/19 16:37 [facility] 05/08/19 16:29 Wound Center Nurse 1 [Ulcer Assessment] #11- R LAT FOOT -Combined with other wound No -Current Size (cm) - Length 0.6 -Current Size (cm) - Width 0.7 -Current Size (cm) - Depth 0.2 -Total Square Cm 0.42 -Photo Taken No -Epithelialization None Present -Tunneling No -Undermining/Tunneling No -Circular Undermining No -Exudate Amt Medium -Exudate Type Serous -Wound Margin Distinct, Outline Attached -Granulation Amt None Present (0 %) -Slough/Fibrin Yes -Necrosis Amt Large (67-100%) -Necrotic Tissue Type Adherent Slough -Texture (Cyndy-wound Skin Appearance) Assessed, Scarring -Moisture (Cyndy-wound Skin Appearance Assessed, ) Maceration -Color (Cyndy-wound Skin Appearance) Assessed,Palor -Temperature (Cyndy-wound Skin No Abnormality Appearance) (Pt Warm) -Tenderness on Palpation (Cyndy-wound No Skin Appearance) -Ulcer Cleansing soap and water -Foul Odor after Cleansing No -Anesthetic Used 4% Lidocaine Solution #10- R LAT HEEL -Combined with other wound No -Current Size (cm) - Length 2 -Current Size (cm) - Width 1.5 -Current Size (cm) - Depth 0.3 -Total Square Cm 3.0 -Photo Taken No -Epithelialization None Present -Tunneling No -Undermining/Tunneling No -Circular Undermining No -Exudate Amt Medium -Exudate Type Serous -Wound Margin Distinct, Outline Attached -Granulation Amt Small (1-33%) -Granulation Quality Lealman,Red -Slough/Fibrin Yes -Necrosis Amt Large (67-100%) -Necrotic Tissue Type Adherent Slough -Texture (Cyndy-wound Skin Appearance) Assessed, Scarring -Moisture (Cyndy-wound Skin Appearance Assessed, ) Maceration -Color (Cyndy-wound Skin Appearance) Assessed,Palor -Temperature (Cyndy-wound Skin No Abnormality Appearance) (Pt Warm) -Tenderness on Palpation (Cyndy-wound No Skin Appearance) -Ulcer Cleansing soap and water -Foul Odor after Cleansing No -Anesthetic Used 4% Lidocaine Solution #9- R RAY INFERIOR/LAT LEG -Combined with other wound No -Current Size (cm) - Length 3.5 -Current Size (cm) - Width 10 -Current Size (cm) - Depth 0.2 -Total Square Cm 35.0 -Photo Taken No -Epithelialization None Present -Tunneling No -Undermining/Tunneling No -Circular Undermining No -Exudate Amt Medium -Exudate Type Serous -Wound Margin Flat & Intact -Granulation Amt Small (1-33%) -Granulation Quality Lealman -Slough/Fibrin Yes -Necrosis Amt Medium (34-66%) -Necrotic Tissue Type Adherent Slough -Texture (Cyndy-wound Skin Appearance) Assessed, Scarring -Moisture (Cyndy-wound Skin Appearance Assessed, ) Maceration -Color (Cyndy-wound Skin Appearance) Assessed,Palor -Temperature (Cyndy-wound Skin No Abnormality Appearance) (Pt Warm) -Tenderness on Palpation (Cyndy-wound No Skin Appearance) -Ulcer Cleansing soap and water -Foul Odor after Cleansing No -Anesthetic Used 4% Lidocaine Solution #8- R RAY SUPERIOR -Combined with other wound No -Current Size (cm) - Length 11.4 -Current Size (cm) - Width 6 -Current Size (cm) - Depth 0.3 -Total Square Cm 68.4 -Photo Taken No -Epithelialization None Present -Tunneling No -Undermining/Tunneling No -Circular Undermining No -Exudate Amt Medium -Exudate Type Serous -Wound Margin Distinct, Outline Attached -Granulation Amt Small (1-33%) -Granulation Quality Red -Slough/Fibrin Yes -Necrosis Amt Large (67-100%) -Necrotic Tissue Type Adherent Slough -Texture (Cyndy-wound Skin Appearance) Assessed, Scarring -Moisture (Cyndy-wound Skin Appearance Assessed,Dry/ ) Scaly -Color (Cyndy-wound Skin Appearance) Assessed, Erythema -Temperature (Cyndy-wound Skin No Abnormality Appearance) (Pt Warm) -Tenderness on Palpation (Cyndy-wound No Skin Appearance) -Ulcer Cleansing soap and water -Foul Odor after Cleansing No -Anesthetic Used 4% Lidocaine Solution [Edema Assessment] -Lower Limb Edema Present Yes -Right Calf (cm) 45.4 -Right Ankle (cm) 26 WC - Nurse 2 - General Ulcer CM Notes Start: 04/24/19 16:17 Freq: Status: Active Protocol: Activity Type Activity Date Activity User E-Sign Co-Sign Detail Recorded Client Recorded Date Recorded By Document 05/08/19 16:54 AN [id number] 05/08/19 17:00 AN 05/08/19 16:54 Wound Center Nurse 2 [Procedure/Treatment] #11- R LAT FOOT -Time 16:56 -Correct Patient Yes -Correct Side, Site, Position Yes -Correct Procedure Yes -Procedure Performed Yes -Type of Procedure Debridement -Clinical Debridement Subcutaneous -Post Debridement Size (cm) - Length 0.7 -Post Debridement Size (cm) - Width 0.8 -Post Debridement Size (cm) - Depth 0.2 -Total Square Cm 0.56 -Wound/Ulcer Outcome Not Healed -Ulcer Cleansing Rinsed/ Irrigated with Saline -Foul Odor after Cleansing No -Bioengineered Tissue No -Bleeding Controlled with Pressure -Offloading Yes -Treatment Response Procedure Tolerated Well #10- R LAT HEEL -Time 16:57 -Correct Patient Yes -Correct Side, Site, Position Yes -Correct Procedure Yes -Procedure Performed Yes -Type of Procedure Debridement -Clinical Debridement Subcutaneous -Post Debridement Size (cm) - Length 2.1 -Post Debridement Size (cm) - Width 1.6 -Post Debridement Size (cm) - Depth 0.3 -Total Square Cm 3.36 -Wound/Ulcer Outcome Not Healed -Ulcer Cleansing Rinsed/ Irrigated with Saline -Foul Odor after Cleansing No -Bioengineered Tissue No -Bleeding Controlled with Pressure -Offloading Yes -Treatment Response Procedure Tolerated Well #9- R RAY INFERIOR/LAT LEG -Time 16:57 -Correct Patient Yes -Correct Side, Site, Position Yes -Correct Procedure Yes -Procedure Performed Yes -Type of Procedure Debridement -Clinical Debridement Subcutaneous -Post Debridement Size (cm) - Length 3.6 -Post Debridement Size (cm) - Width 10.1 -Post Debridement Size (cm) - Depth 0.2 -Total Square Cm 36.36 -Wound/Ulcer Outcome Not Healed -Ulcer Cleansing Rinsed/ Irrigated with Saline -Foul Odor after Cleansing No -Bioengineered Tissue No -Bleeding Controlled with Pressure -Offloading Yes -Treatment Response Procedure Tolerated Well #8- R RAY SUPERIOR -Time 16:58 -Correct Patient Yes -Correct Side, Site, Position Yes -Correct Procedure Yes -Procedure Performed Yes -Type of Procedure Debridement -Clinical Debridement Subcutaneous -Post Debridement Size (cm) - Length 11.5 -Post Debridement Size (cm) - Width 6.1 -Post Debridement Size (cm) - Depth 0.3 -Total Square Cm 70.15 -Wound/Ulcer Outcome Not Healed -Ulcer Cleansing Rinsed/ Irrigated with Saline -Foul Odor after Cleansing No -Bioengineered Tissue No -Bleeding Controlled with Pressure -Offloading Yes -Treatment Response Procedure Tolerated Well [See Physician Procedure note for Specifics] Pain Scale: 0-10 Numeric [Pain] -Is Patient Pain Free? Yes Musculoskeletal: No Tenderness to Palpation of Joints or Extremities, Muscle Wasting, Tenderness - Pain with ulcer manipulation, - - No bogginess or fluctuance on palpation Neurological: Sensory exam intact to light touch and pain Psych/Mental Status: Normal Affect, Appropriate, Anxious - Very talkative Debridement Note Post-Debridement Measurements/Treatment WC - Nurse 2 - General Ulcer CM Notes Start: 04/24/19 16:17 Freq: Status: Active Protocol: Activity Type Activity Date Activity User E-Sign Co-Sign Detail Recorded Client Recorded Date Recorded By Document 04/24/19 16:35 AN [id number] 04/24/19 16:42 AN Document 05/08/19 16:54 AN [id number] 05/08/19 17:00 AN 04/24/19 05/08/19 16:35 16:54 Wound Center Nurse 2 #11- R LAT FOOT -Time 16:39 16:56 -Correct Patient Yes Yes -Correct Side, Site, Position Yes Yes -Correct Procedure Yes Yes -Procedure Performed Yes Yes -Type of Procedure Debridement Debridement -Clinical Debridement Subcutaneous Subcutaneous -Post Debridement Size (cm) - Length 0.9 0.7 -Post Debridement Size (cm) - Width 0.8 0.8 -Post Debridement Size (cm) - Depth 0.2 0.2 -Total Square Cm 0.72 0.56 -Wound/Ulcer Outcome Not Healed Not Healed -Ulcer Cleansing Rinsed/ Irrigated with Saline -Foul Odor after Cleansing No -Bioengineered Tissue No -Bleeding Controlled with Pressure Pressure -Offloading No Yes -Treatment Response Procedure Procedure Tolerated Well Tolerated Well #10- R LAT HEEL -Time 16:39 16:57 -Correct Patient Yes Yes -Correct Side, Site, Position Yes Yes -Correct Procedure Yes Yes -Procedure Performed Yes Yes -Type of Procedure Debridement Debridement -Clinical Debridement Subcutaneous Subcutaneous -Post Debridement Size (cm) - Length 3.1 2.1 -Post Debridement Size (cm) - Width 2.8 1.6 -Post Debridement Size (cm) - Depth 0.2 0.3 -Total Square Cm 8.68 3.36 -Wound/Ulcer Outcome Not Healed Not Healed -Ulcer Cleansing Rinsed/ Irrigated with Saline -Foul Odor after Cleansing No -Bioengineered Tissue No -Bleeding Controlled with Pressure Pressure -Offloading No Yes -Treatment Response Procedure Procedure Tolerated Well Tolerated Well #9- R RAY INFERIOR/LAT LEG -Time 16:40 16:57 -Correct Patient Yes Yes -Correct Side, Site, Position Yes Yes -Correct Procedure Yes Yes -Procedure Performed Yes Yes -Type of Procedure Debridement Debridement -Clinical Debridement Subcutaneous Subcutaneous -Post Debridement Size (cm) - Length 3.6 3.6 -Post Debridement Size (cm) - Width 10.1 10.1 -Post Debridement Size (cm) - Depth 0.2 0.2 -Total Square Cm 36.36 36.36 -Wound/Ulcer Outcome Not Healed Not Healed -Ulcer Cleansing Rinsed/ Rinsed/ Irrigated with Irrigated with Saline Saline -Foul Odor after Cleansing No -Bioengineered Tissue No -Bleeding Controlled with Pressure Pressure -Offloading No Yes -Treatment Response Procedure Procedure Tolerated Well Tolerated Well #8- R RAY SUPERIOR -Time 16:41 16:58 -Correct Patient Yes Yes -Correct Side, Site, Position Yes Yes -Correct Procedure Yes Yes -Procedure Performed Yes Yes -Type of Procedure Debridement Debridement -Clinical Debridement Subcutaneous Subcutaneous -Post Debridement Size (cm) - Length 10.4 11.5 -Post Debridement Size (cm) - Width 5.8 6.1 -Post Debridement Size (cm) - Depth 0.4 0.3 -Total Square Cm 60.32 70.15 -Wound/Ulcer Outcome Not Healed Not Healed -Ulcer Cleansing Rinsed/ Rinsed/ Irrigated with Irrigated with Saline Saline -Foul Odor after Cleansing No -Bioengineered Tissue No -Bleeding Controlled with Pressure Pressure -Offloading No Yes -Treatment Response Procedure Procedure Tolerated Well Tolerated Well Pain Scale: 0-10 Numeric Is Patient Pain Free? Yes Yes Wound debrided: lateral foot Laterality: Right Type of Debridement: Excisional debridement Anesthesia Used: 5% Lidocaine Gel Depth: in the subcutaneous layer Percentage of wound debrided: 100 Instrument Used: #15 blade Tissue Removed: fibrous, devitalized subcutaneous, biofim, slough Severity: Fat Layer Exposed Amount of bleeding with debridement: Mild Bleeding Controlled with: Pressure Patient tolerated procedure well - Additional Wound Wound debrided: heel Laterality: Right Anesthesia Used: 5% Lidocaine Gel Depth: in the subcutaneous layer Percentage of wound debrided: 100 Instrument Used: #15 blade Tissue Removed: fibrous, devitalized subcutaneous, biofim, slough Severity: Fat Layer Exposed Amount of bleeding with debridement: Mild Bleeding Controlled with: Pressure Patient tolerated procedure: Patient tolerated procedure well - Additional Wound Wound debrided: ray (proximal) Laterality: Right Type of Debridement: Excisional debridement Anesthesia Used: 5% Lidocaine Gel Depth: in the subcutaneous layer Percentage of wound debrided: 100 Instrument Used: #15 blade Tissue Removed: fibrous, devitalized subcutaneous, biofim, slough Severity: Fat Layer Exposed Amount of bleeding with debridement: Mild Bleeding Controlled with: Pressure Patient tolerated procedure: Patient tolerated procedure well - Additional Wound Wound debrided: ray (distal) Laterality: Right Type of Debridement: Excisional debridement Anesthesia Used: 5% Lidocaine Gel Depth: in the subcutaneous layer Percentage of wound debrided: 100 Instrument Used: #15 blade Tissue Removed: fibrous, devitalized subcutaneous, biofim, slough Severity: Fat Layer Exposed Amount of bleeding with debridement: Mild Bleeding Controlled with: Pressure Patient tolerated procedure: Patient tolerated procedure well Assessment/Plan Active Problems (Last Updated 04/17/19 @ 17:18 by Corwin Costa MD) Knee contracture (Chronic) 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) Ulcer of right foot with fat layer exposed (Acute) Malnutrition (Chronic) Contracture of knee joint (Chronic) Venous insufficiency (Chronic) Delayed wound healing (Chronic) Bilateral edema of lower extremity (Chronic) PAOD (peripheral arterial occlusive disease) (Chronic) Assessment: Right leg ulcer with fat layer exposed, cellulitis resolved x 2. Right heel ulcer with fat layer exposed, maggots infestation resolved. New right foot ulcers that layer exposed, no infection. Malnutrition. Peripheral vascular disease. 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 Bilateral lower leg edema swelling increased in the left leg. Neuropathy lower extremities. Atrial fibrillation. Non compliance. Venous insufficiency. Left lower extremity amputation healing noted. Right knee contracture Plan: I reviewed and discuss his case. It is noted he continues on antibiotics under the management of infectious disease. His diagnostic data was recently reviewed during his last hospital admission. He has known peripheral vascular disease and chronic venous insufficiency is also suspected. His ulcers were debrided as noted in the clinical panel. His new skin discontinuity is noted. To continue daily Santyl application with his home health nurse. To offload by keeping pressure off of the sites. He understands his knee contracture is an issue for healing and functionality. He understands he is high risk for a mputation and this may be more functional for him. His heel ulcer site appears to be doing well and is progressing the most. He would like to proceed with a limb salvage plan at this time. To take nutritional supplementation to optimize healing. To monitor for development of infection. This has improved compared to last week. To continue with periodic elevation and application of Brandon wrap t o control edema. I answered his questions. He will return to the wound healing center 1 week or call sooner if you have any questions or concerns.
[2019-05-15 15:15] VITALS: BP 106/70; PULSE 128; RESP 16; TEMP 38.2; BMI 19.5
--- NOTE | 2019-05-15 16:02 | PN.PCM_ITS ---
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: Chronic Current Visit: Yes Code(s): L97.512 - Non-pressure chronic ulcer of other part of right foot with fat layer exposed (2) Ulcer of right lower extremity with fat layer exposed Status: Chronic Current Visit: Yes Code(s): L97.912 - Non-pressure chronic ulcer of unspecified part of right lower leg with fat layer exposed (3) Malnutrition Status: Chronic Current Visit: Yes Code(s): E46 - Unspecified protein- calorie malnutrition (4) Contracture of knee joint Status: Chronic Current Visit: Yes Qualifiers: Code(s): M24.569 - Contracture, unspecified knee (5) Venous insufficiency Status: Chronic Current Visit: Yes Code(s): I87.2 - Venous insufficiency (chronic) (peripheral) (6) Delayed wound healing Status: Chronic Current Visit: Yes Code(s): T14.8XXD - Other injury of unspecified body region, subsequent encounter (7) Bilateral edema of lower extremity Status: Chronic Current Visit: Yes Code(s): R60.0 - Localized edema (8) 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 He is well-known to me and I was treating him recently in the inpatient setting for cellulitis, maggot infestation and infection. He has a home nurse visiting who helps with Santyl dressings. He has a home health nurse and also privately hired nurse to help with this. He has completed course of antibiotics. He is continue to follow-up with orthopedics in regards to his knee contracture and understands he is at risk for limb loss; this appointment will be completed prior to next week. He has established peripheral vascular disease and is under the care of Dr. Maloney. He denies current fever, chill, nausea, vomiting. His pain is controlled today. He presents in a wheelchair. He tries to apply the Brandon wrap intermittently as tolerated. Progress of Wound: Stable right leg and foot ulcers - Physical Exam Vital Signs Temp Pulse Resp BP 100.7 F H 128 H 16 106/70 05/15/19 15:15 05/15/19 15:15 05/15/19 15:15 05/15/19 15:15 General: Alert, Oriented x3, Cooperative, No apparent distress Extremities: Diminished Peripheral Pulses, Edema - Right lower extremity moderate, Tenderness - Pain with ulcer manipulation. The ulcers do not appear healthy and there fibrous tissue with devitalized subcutaneous tissue., - - Right knee contracture. Left lower extremity amputation Skin: Ulcer/ Wound - No nena purulence, erythema, streaking, odor, or gross infection. The peripheral skin is hairless and atrophic. There is no deep tissue exposure noted or maceration. The right heel ulcer is reducing in size with peripheral epithelialization and there is no deep probing. Wound Measurements and Assessment WC - Nurse 1 - General Ulcer Measurement Start: 04/24/19 16:17 Freq: Status: Active Protocol: Activity Type Activity Date Activity User E-Sign Co-Sign Detail Recorded Client Recorded Date Recorded By Document 05/15/19 15:15 [id number] 05/15/19 15:26 05/15/19 15:15 Wound Center Nurse 1 [Ulcer Assessment] #11- R LAT FOOT -Combined with other wound No -Current Size (cm) - Length 0.7 -Current Size (cm) - Width 0.5 -Current Size (cm) - Depth 0.2 -Total Square Cm 0.35 -Photo Taken No -Epithelialization None Present -Tunneling No -Undermining/Tunneling No -Circular Undermining No -Exudate Amt Small -Exudate Type Serosanguineous -Wound Margin Distinct, Outline Attached -Granulation Amt None Present (0 %) -Slough/Fibrin Yes -Necrosis Amt Large (67-100%) -Necrotic Tissue Type Adherent Slough -Texture (Cyndy-wound Skin Appearance) Assessed, Scarring -Moisture (Cyndy-wound Skin Appearance Assessed ) -Color (Cyndy-wound Skin Appearance) Assessed -Temperature (Cyndy-wound Skin No Abnormality Appearance) (Pt Warm) -Tenderness on Palpation (Cyndy-wound No Skin Appearance) -Ulcer Cleansing soap and water -Foul Odor after Cleansing No -Anesthetic Used 4% Lidocaine Solution #10- R LAT HEEL -Combined with other wound No -Current Size (cm) - Length 2.4 -Current Size (cm) - Width 0.9 -Current Size (cm) - Depth 0.2 -Total Square Cm 2.16 -Photo Taken No -Epithelialization None Present -Tunneling No -Undermining/Tunneling No -Circular Undermining No -Exudate Amt Small -Exudate Type Serosanguineous -Wound Margin Distinct, Outline Attached -Granulation Amt Medium (34-66%) -Granulation Quality [place],Red -Slough/Fibrin Yes -Necrosis Amt Medium (34-66%) -Necrotic Tissue Type Adherent Slough -Texture (Cyndy-wound Skin Appearance) Assessed, Scarring -Moisture (Cyndy-wound Skin Appearance Assessed ) -Color (Cyndy-wound Skin Appearance) Assessed -Temperature (Cyndy-wound Skin No Abnormality Appearance) (Pt Warm) -Tenderness on Palpation (Cyndy-wound No Skin Appearance) -Ulcer Cleansing soap and water -Foul Odor after Cleansing No -Anesthetic Used 4% Lidocaine Solution #9- R RAY INFERIOR/LAT LEG -Combined with other wound No -Current Size (cm) - Length 2.7 -Current Size (cm) - Width 9 -Current Size (cm) - Depth 0.2 -Total Square Cm 24.3 -Photo Taken No -Epithelialization None Present -Tunneling No -Undermining/Tunneling No -Circular Undermining No -Exudate Amt Large -Exudate Type Serosanguineous -Wound Margin Distinct, Outline Attached -Granulation Amt Small (1-33%) -Granulation Quality [place] -Slough/Fibrin Yes -Necrosis Amt Large (67-100%) -Necrotic Tissue Type Adherent Slough -Texture (Cyndy-wound Skin Appearance) Assessed, Localized Edema ,Scarring -Moisture (Cyndy-wound Skin Appearance Assessed, ) Maceration -Color (Cyndy-wound Skin Appearance) Assessed,Palor -Temperature (Cyndy-wound Skin No Abnormality Appearance) (Pt Warm) -Tenderness on Palpation (Cyndy-wound No Skin Appearance) -Ulcer Cleansing soap and water -Foul Odor after Cleansing No -Anesthetic Used 5% Lidocaine Gel #8- R RAY SUPERIOR -Combined with other wound No -Current Size (cm) - Length 12 -Current Size (cm) - Width 6.4 -Current Size (cm) - Depth 0.3 -Total Square Cm 76.8 -Photo Taken No -Epithelialization None Present -Tunneling No -Undermining/Tunneling No -Circular Undermining No -Exudate Amt Large -Exudate Type Serosanguineous -Wound Margin Thickened -Granulation Amt Small (1-33%) -Granulation Quality [place] -Slough/Fibrin Yes -Necrosis Amt Large (67-100%) -Necrotic Tissue Type Adherent Slough -Texture (Cyndy-wound Skin Appearance) Assessed, Localized Edema ,Scarring -Moisture (Cyndy-wound Skin Appearance Assessed ) -Color (Cyndy-wound Skin Appearance) Assessed -Temperature (Cyndy-wound Skin No Abnormality Appearance) (Pt Warm) -Tenderness on Palpation (Cyndy-wound No Skin Appearance) -Ulcer Cleansing soap and water -Foul Odor after Cleansing No -Anesthetic Used 4% Lidocaine Solution [Edema Assessment] -Lower Limb Edema Present Yes -Right Calf (cm) 43.5 -Right Ankle (cm) 26.7 WC - Nurse 2 - General Ulcer CM Notes Start: 04/24/19 16:17 Freq: Status: Active Protocol: Activity Type Activity Date Activity User E-Sign Co-Sign Detail Recorded Client Recorded Date Recorded By Document 05/15/19 15:38 AN [id number] 05/15/19 15:41 AN 05/15/19 15:38 Wound Center Nurse 2 [Procedure/Treatment] #11- R LAT FOOT -Time 15:40 -Correct Patient Yes -Correct Side, Site, Position Yes -Correct Procedure Yes -Procedure Performed Yes -Type of Procedure Debridement -Clinical Debridement Subcutaneous -Post Debridement Size (cm) - Length 0.8 -Post Debridement Size (cm) - Width 0.6 -Post Debridement Size (cm) - Depth 0.2 -Total Square Cm 0.48 -Wound/Ulcer Outcome Not Healed -Ulcer Cleansing Rinsed/ Irrigated with Saline -Foul Odor after Cleansing No -Bioengineered Tissue No -Bleeding Controlled with Pressure -Offloading Yes -Treatment Response Procedure Tolerated Well #10- R LAT HEEL -Time 15:40 -Correct Patient Yes -Correct Side, Site, Position Yes -Correct Procedure Yes -Procedure Performed Yes -Type of Procedure Debridement -Clinical Debridement Subcutaneous -Post Debridement Size (cm) - Length 2.5 -Post Debridement Size (cm) - Width 1.0 -Post Debridement Size (cm) - Depth 0.2 -Total Square Cm 2.50 -Wound/Ulcer Outcome Not Healed -Ulcer Cleansing Rinsed/ Irrigated with Saline -Foul Odor after Cleansing No -Bioengineered Tissue No -Bleeding Controlled with Pressure -Offloading Yes -Treatment Response Procedure Tolerated Well #9- R RAY INFERIOR/LAT LEG -Time 15:40 -Correct Patient Yes -Correct Side, Site, Position Yes -Correct Procedure Yes -Procedure Performed Yes -Type of Procedure Debridement -Clinical Debridement Subcutaneous -Post Debridement Size (cm) - Length 2.8 -Post Debridement Size (cm) - Width 9.0 -Post Debridement Size (cm) - Depth 0.2 -Total Square Cm 25.20 -Wound/Ulcer Outcome Not Healed -Ulcer Cleansing Rinsed/ Irrigated with Saline -Foul Odor after Cleansing No -Bioengineered Tissue No -Bleeding Controlled with Pressure -Offloading Yes -Treatment Response Procedure Tolerated Well #8- R RAY SUPERIOR -Time 15:41 -Correct Patient Yes -Correct Side, Site, Position Yes -Correct Procedure Yes -Procedure Performed Yes -Type of Procedure Debridement -Clinical Debridement Subcutaneous -Post Debridement Size (cm) - Length 12 -Post Debridement Size (cm) - Width 6.4 -Post Debridement Size (cm) - Depth 0.2 -Total Square Cm 76.8 -Wound/Ulcer Outcome Not Healed -Ulcer Cleansing Rinsed/ Irrigated with Saline -Foul Odor after Cleansing No -Bioengineered Tissue No -Bleeding Controlled with Pressure -Offloading Yes -Treatment Response Procedure Tolerated Well [See Physician Procedure note for Specifics] Pain Scale: 0-10 Numeric [Pain] -Is Patient Pain Free? Yes Musculoskeletal: No Tenderness to Palpation of Joints or Extremities, Muscle Wasting Neurological: Sensory exam intact to light touch and pain Psych/Mental Status: Normal Affect, Appropriate Debridement Note Post-Debridement Measurements/Treatment WC - Nurse 2 - General Ulcer CM Notes Start: 04/24/19 16:17 Freq: Status: Active Protocol: Activity Type Activity Date Activity User E-Sign Co-Sign Detail Recorded Client Recorded Date Recorded By Document 04/24/19 16:35 AN [id number] 04/24/19 16:42 AN Document 05/08/19 16:54 AN [id number] 05/08/19 17:00 AN Document 05/15/19 15:38 AN [id number] 05/15/19 15:41 AN 04/24/19 05/08/19 05/15/19 16:35 16:54 15:38 Wound Center Nurse 2 #11- R LAT FOOT -Time 16:39 16:56 15:40 -Correct Patient Yes Yes Yes -Correct Side, Site, Position Yes Yes Yes -Correct Procedure Yes Yes Yes -Procedure Performed Yes Yes Yes -Type of Procedure Debridement Debridement Debridement -Clinical Debridement Subcutaneous Subcutaneous Subcutaneous -Post Debridement Size (cm) - Length 0.9 0.7 0.8 -Post Debridement Size (cm) - Width 0.8 0.8 0.6 -Post Debridement Size (cm) - Depth 0.2 0.2 0.2 -Total Square Cm 0.72 0.56 0.48 -Wound/Ulcer Outcome Not Healed Not Healed Not Healed -Ulcer Cleansing Rinsed/ Rinsed/ Irrigated with Irrigated with Saline Saline -Foul Odor after Cleansing No No -Bioengineered Tissue No No -Bleeding Controlled with Pressure Pressure Pressure -Offloading No Yes Yes -Treatment Response Procedure Procedure Procedure Tolerated Well Tolerated Well Tolerated Well #10- R LAT HEEL -Time 16:39 16:57 15:40 -Correct Patient Yes Yes Yes -Correct Side, Site, Position Yes Yes Yes -Correct Procedure Yes Yes Yes -Procedure Performed Yes Yes Yes -Type of Procedure Debridement Debridement Debridement -Clinical Debridement Subcutaneous Subcutaneous Subcutaneous -Post Debridement Size (cm) - Length 3.1 2.1 2.5 -Post Debridement Size (cm) - Width 2.8 1.6 1.0 -Post Debridement Size (cm) - Depth 0.2 0.3 0.2 -Total Square Cm 8.68 3.36 2.50 -Wound/Ulcer Outcome Not Healed Not Healed Not Healed -Ulcer Cleansing Rinsed/ Rinsed/ Irrigated with Irrigated with Saline Saline -Foul Odor after Cleansing No No -Bioengineered Tissue No No -Bleeding Controlled with Pressure Pressure Pressure -Offloading No Yes Yes -Treatment Response Procedure Procedure Procedure Tolerated Well Tolerated Well Tolerated Well #9- R RAY INFERIOR/LAT LEG -Time 16:40 16:57 15:40 -Correct Patient Yes Yes Yes -Correct Side, Site, Position Yes Yes Yes -Correct Procedure Yes Yes Yes -Procedure Performed Yes Yes Yes -Type of Procedure Debridement Debridement Debridement -Clinical Debridement Subcutaneous Subcutaneous Subcutaneous -Post Debridement Size (cm) - Length 3.6 3.6 2.8 -Post Debridement Size (cm) - Width 10.1 10.1 9.0 -Post Debridement Size (cm) - Depth 0.2 0.2 0.2 -Total Square Cm 36.36 36.36 25.20 -Wound/Ulcer Outcome Not Healed Not Healed Not Healed -Ulcer Cleansing Rinsed/ Rinsed/ Rinsed/ Irrigated with Irrigated with Irrigated with Saline Saline Saline -Foul Odor after Cleansing No No -Bioengineered Tissue No No -Bleeding Controlled with Pressure Pressure Pressure -Offloading No Yes Yes -Treatment Response Procedure Procedure Procedure Tolerated Well Tolerated Well Tolerated Well #8- R RAY SUPERIOR -Time 16:41 16:58 15:41 -Correct Patient Yes Yes Yes -Correct Side, Site, Position Yes Yes Yes -Correct Procedure Yes Yes Yes -Procedure Performed Yes Yes Yes -Type of Procedure Debridement Debridement Debridement -Clinical Debridement Subcutaneous Subcutaneous Subcutaneous -Post Debridement Size (cm) - Length 10.4 11.5 12 -Post Debridement Size (cm) - Width 5.8 6.1 6.4 -Post Debridement Size (cm) - Depth 0.4 0.3 0.2 -Total Square Cm 60.32 70.15 76.8 -Wound/Ulcer Outcome Not Healed Not Healed Not Healed -Ulcer Cleansing Rinsed/ Rinsed/ Rinsed/ Irrigated with Irrigated with Irrigated with Saline Saline Saline -Foul Odor after Cleansing No No -Bioengineered Tissue No No -Bleeding Controlled with Pressure Pressure Pressure -Offloading No Yes Yes -Treatment Response Procedure Procedure Procedure Tolerated Well Tolerated Well Tolerated Well Pain Scale: 0-10 Numeric Is Patient Pain Free? Yes Yes Yes Wound debrided: ray (superior) Laterality: Right Type of Debridement: Excisional debridement Anesthesia Used: 5% Lidocaine Gel Depth: in the subcutaneous layer Percentage of wound debrided: 100 Instrument Used: 7mm curette Tissue Removed: fibrous, devitalized subcutaneous, biofilm, slough Severity: Fat Layer Exposed Amount of bleeding with debridement: Mild Bleeding Controlled with: Pressure Patient tolerated procedure well - Additional Wound Wound debrided: ray (inferior) Laterality: Right Type of Debridement: Excisional debridement Anesthesia Used: 5% Lidocaine Gel Depth: in the subcutaneous layer Percentage of wound debrided: 100 Instrument Used: 7mm curette Tissue Removed: fibrous, devitalized subcutaneous, biofilm, slough Severity: Fat Layer Exposed Amount of bleeding with debridement: Mild Bleeding Controlled with: Pressure Patient tolerated procedure: Patient tolerated procedure well - Additional Wound Wound debrided: lateral foot Laterality: Right Type of Debridement: Excisional debridement Anesthesia Used: 5% Lidocaine Gel Depth: in the subcutaneous layer Percentage of wound debrided: 100 Instrument Used: 7mm curette Tissue Removed: fibrous, devitalized subcutaneous, biofilm, slough Severity: Fat Layer Exposed Amount of bleeding with debridement: Mild Bleeding Controlled with: Pressure Patient tolerated procedure: Patient tolerated procedure well - Additional Wound Wound debrided: heel Laterality: Right Type of Debridement: Excisional debridement Anesthesia Used: 5% Lidocaine Gel Depth: in the subcutaneous layer Percentage of wound debrided: 100 Instrument Used: 7mm curette Tissue Removed: fibrous, devitalized subcutaneous, biofilm, slough Severity: Fat Layer Exposed Amount of bleeding with debridement: Mild Bleeding Controlled with: Pressure Patient tolerated procedure: Patient tolerated procedure well Assessment/Plan Active Problems (Last Updated 04/17/19 @ 17:18 by Corwin Costa MD) Knee contracture (Chronic) 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) Ulcer of right foot with fat layer exposed (Chronic) Malnutrition (Chronic) Contracture of knee joint (Chronic) Venous insufficiency (Chronic) Delayed wound healing (Chronic) Bilateral edema of lower extremity (Chronic) PAOD (peripheral arterial occlusive disease) (Chronic) Assessment: Right leg ulcer with fat layer exposed, cellulitis resolved x 2. Right heel ulcer with fat layer exposed, maggots infestation resolved. right foot ulcers that layer exposed, no infection. Malnutrition. Peripheral vascular disease. 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 Bilateral lower leg edema swelling increased in the left leg. Neuropathy lower extremities. Atrial fibrillation. Non compliance. Venous insufficiency. Left lower extremity amputation healing noted. Right knee contracture Plan: I reviewed and discuss his case. It is noted he continues on antibiotics under the management of infectious disease. His diagnostic data was recently reviewed during his last hospital admission. He has known peripheral vascular disease and chronic venous insufficiency is also suspected. His ulcers were debrided as noted in the clinical panel. His new skin discontinuity is noted. To continue daily Santyl application with his home health nurse. To offload by keeping pressure off of the sites. He understands his knee contracture is an issue for healing and functionality. He understands he is high risk for amputation and this may be more functional for him. His heel ulcer site appears to be doing well and is progressing the most. He would like to proceed with a limb salvage plan at this time. To take nutritional supplementation to optimize healing. To monitor for development of infection. This has improved compared to last week. To continue with periodic elevation and application of Brandon wrap to control edema. I answered his questions. He will return to the wound healing center 1 week or call sooner if you have any questions or concerns.
== END 2019-05-18 23:59 ==
LOC: WC 15:00
PROVIDERS: Family Provider Internal Medicine; PCP Internal Medicine; Referring Provider Podiatrist; Visit Provider Podiatrist
DX: I73.9 Peripheral vascular disease, unspecified (principal); I87.2 Venous insufficiency (chronic) (peripheral); M24.569 Contracture, unspecified knee; R60.0 Localized edema; G62.9 Polyneuropathy, unspecified; B87.9 Myiasis, unspecified; I50.22 Chronic systolic (congestive) heart failure; L97.812 Non-pressure chronic ulcer of other part of right lower leg with fat layer exposed; L97.412 Non-pressure chronic ulcer of right heel and midfoot with fat layer exposed; I48.91 Unspecified atrial fibrillation; Z91.19 Patient's noncompliance with other medical treatment and regimen; Z86.718 Personal history of other venous thrombosis and embolism
CPT/HCPCS: 11042; 11045

== ENCOUNTER 2019-06-05 10:00 | Outpatient (RCR) | payer MEDICARE, OTHER, SELFPAY ==
[2019-05-19 00:13] VITALS: BP 106/70; PULSE 128; RESP 16; TEMP 38.2
[2019-05-22 15:54] VITALS: BP 78/44; PULSE 115; RESP 16; TEMP 37.6; BMI 19.5
--- NOTE | 2019-05-22 16:46 | PN.PCM_ITS ---
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 Current Visit: Yes Code(s): I77.9 - Disorder of arteries and arterioles, unspecified (2) Ulcer of right lower extremity with fat layer exposed Status: Chronic Current Visit: Yes Code(s): L97.912 - Non-pressure chronic ulcer of unspecified part of right lower leg with fat layer exposed (3) Ulcer of right foot with fat layer exposed Status: Chronic Current Visit: Yes Code(s): L97.512 - Non-pressure chronic ulcer of other part of right foot with fat layer exposed (4) Malnutrition Status: Chronic Current Visit: Yes Code(s): E46 - Unspecified protein- calorie malnutrition (5) Contracture of knee joint Status: Chronic Current Visit: Yes Qualifiers: Code(s): M24.569 - Contracture, unspecified knee (6) Venous insufficiency Status: Chronic Current Visit: Yes Code(s): I87.2 - Venous insufficiency (chronic) (peripheral) (7) Delayed wound healing Status: Chronic Current Visit: Yes Code(s): T14.8XXD - Other injury of unspecified body region, subsequent encounter Type of Wound Date of Service: 05/22/19 Chief Complaint: Right leg and foot ulcers History of Wound: 78-year-old male returns to the wound healing center for right leg ulcers, heel ulcer, a right foot ulcer. He has a home nurse visiting who helps with Santyl dressings. He has a home health nurse and also privately hired nurse to help with this. He has completed course of antibiotics. He is continue to follow-up with orthopedics in regards to his knee contracture and understands he is at risk for limb loss; this appointment will be completed tomorrow. He has established peripheral vascular disease and is under the care of Dr. Maloney. He relates his next follow-up for an interventional angiogram procedure is in 6 weeks. He denies current fever, chill, nausea, vomiting. His pain is controlled today. He presents in a wheelchair. He tries to apply the Brandon wrap intermittently as tolerated. He has a new ulcers to the back of his thigh and buttock from sitting in his wheelchair for an extended period of time. Progress of Wound: Stable right leg and foot ulcers. New proximal ulcers reported - Physical Exam Vital Signs Temp Pulse Resp BP 99.6 F H 115 H 16 78/44 L 05/22/19 15:54 05/22/19 15:54 05/22/19 15:54 05/22/19 15:54 General: Alert, Oriented x3, Cooperative, No apparent distress HEENT: Atraumatic Extremities: No cyanosis, Capillary Refill Less than 3 Seconds, No Calf Tenderness - Negative Araya sign right, Diminished Peripheral Pulses, Edema - Right lower extremity, - - Right rigid knee contracture. Left lower extremity amputation Skin: Ulcer/ Wound - No purulence, erythema, streaking, odor, infection. The ulcer beds are fibrous and devitalizing. The peripheral skin is hairless and atrophic. Wound Measurements and Assessment WC - Nurse 1 - General Ulcer Measurement Start: 05/22/19 15:54 Freq: Status: Active Protocol: Activity Type Activity Date Activity User E-Sign Co-Sign Detail Recorded Client Recorded Date Recorded By Document 05/22/19 15:54 MW [id number] 05/22/19 16:07 MW 05/22/19 15:54 Wound Center Nurse 1 [Ulcer Assessment] #12 right posterior thigh cluster -Combined with other wound No -Current Size (cm) - Length 4.5 -Current Size (cm) - Width 4.0 -Current Size (cm) - Depth 0.1 -Total Square Cm 18.00 -Date of Last Picture (Recall this 05/22/19 field) -Photo Taken Yes -Epithelialization None Present -Tunneling No -Undermining/Tunneling No -Circular Undermining No -Exudate Amt Large -Exudate Type Serosanguineous -Wound Margin Flat & Intact -Granulation Amt None Present (0 %) -Granulation Quality N/A -Slough/Fibrin Yes -Necrosis Amt Large (67-100%) -Necrotic Tissue Type Adherent Slough -Structure Exposed N/A -Texture (Cyndy-wound Skin Appearance) Assessed, Localized Edema -Moisture (Cyndy-wound Skin Appearance Assessed, ) Maceration -Color (Cyndy-wound Skin Appearance) Assessed,Rubor -Temperature (Cyndy-wound Skin No Abnormality Appearance) (Pt Warm) -Tenderness on Palpation (Cyndy-wound No Skin Appearance) -Ulcer Cleansing soap and water -Foul Odor after Cleansing No #11- R LAT FOOT -Combined with other wound No -Current Size (cm) - Length 1.0 -Current Size (cm) - Width 0.6 -Current Size (cm) - Depth 0.2 -Total Square Cm 0.60 -Photo Taken No -Epithelialization None Present -Tunneling No -Undermining/Tunneling No -Circular Undermining No -Exudate Amt Large -Exudate Type Serosanguineous -Wound Margin Flat & Intact -Granulation Amt None Present (0 %) -Granulation Quality N/A -Slough/Fibrin Yes -Necrosis Amt Large (67-100%) -Necrotic Tissue Type Adherent Slough -Structure Exposed N/A -Texture (Cyndy-wound Skin Appearance) Assessed, Localized Edema -Moisture (Cyndy-wound Skin Appearance Assessed, ) Maceration -Color (Cyndy-wound Skin Appearance) Assessed,Rubor -Temperature (Cyndy-wound Skin No Abnormality Appearance) (Pt Warm) -Tenderness on Palpation (Cyndy-wound No Skin Appearance) -Ulcer Cleansing soap and water -Foul Odor after Cleansing No -Anesthetic Used 4% Lidocaine Solution #10- R LAT HEEL -Combined with other wound No -Current Size (cm) - Length 1.2 -Current Size (cm) - Width 1.0 -Current Size (cm) - Depth 0.2 -Total Square Cm 1.20 -Photo Taken No -Epithelialization None Present -Tunneling No -Undermining/Tunneling No -Circular Undermining No -Exudate Amt Large -Exudate Type Serosanguineous -Wound Margin Flat & Intact -Granulation Amt None Present (0 %) -Granulation Quality N/A -Slough/Fibrin Yes -Necrosis Amt Large (67-100%) -Necrotic Tissue Type Adherent Slough -Structure Exposed N/A -Texture (Cyndy-wound Skin Appearance) Assessed, Localized Edema -Moisture (Cyndy-wound Skin Appearance Assessed, ) Maceration -Color (Cyndy-wound Skin Appearance) Assessed,Rubor -Temperature (Cyndy-wound Skin No Abnormality Appearance) (Pt Warm) -Tenderness on Palpation (Cyndy-wound No Skin Appearance) -Ulcer Cleansing soap and water -Foul Odor after Cleansing No -Anesthetic Used 4% Lidocaine Solution #9- R MCDOWELL INFERIOR/LAT LEG -Combined with other wound No -Current Size (cm) - Length 3.0 -Current Size (cm) - Width 9.0 -Current Size (cm) - Depth 0.3 -Total Square Cm 27.00 -Photo Taken No -Epithelialization None Present -Tunneling No -Undermining/Tunneling No -Circular Undermining No -Exudate Amt Large -Exudate Type Serosanguineous -Wound Margin Flat & Intact -Granulation Amt None Present (0 %) -Granulation Quality N/A -Slough/Fibrin Yes -Necrosis Amt Large (67-100%) -Necrotic Tissue Type Adherent Slough -Structure Exposed N/A -Texture (Cyndy-wound Skin Appearance) Assessed, Localized Edema -Moisture (Cyndy-wound Skin Appearance Assessed, ) Maceration -Color (Cyndy-wound Skin Appearance) Assessed,Rubor -Temperature (Cyndy-wound Skin No Abnormality Appearance) (Pt Warm) -Tenderness on Palpation (Cyndy-wound No Skin Appearance) -Ulcer Cleansing soap and water -Foul Odor after Cleansing No -Anesthetic Used 4% Lidocaine Solution #8- R MCDOWELL SUPERIOR -Combined with other wound No -Current Size (cm) - Length 11.5 -Current Size (cm) - Width 6.5 -Current Size (cm) - Depth 0.4 -Total Square Cm 74.75 -Photo Taken No -Epithelialization None Present -Tunneling No -Undermining/Tunneling No -Circular Undermining No -Exudate Amt Large -Exudate Type Serosanguineous -Wound Margin Flat & Intact -Granulation Amt None Present (0 %) -Granulation Quality N/A -Slough/Fibrin Yes -Necrosis Amt Large (67-100%) -Necrotic Tissue Type Adherent Slough -Structure Exposed N/A -Texture (Cyndy-wound Skin Appearance) Assessed, Localized Edema -Moisture (Cyndy-wound Skin Appearance Assessed, ) Maceration -Color (Cyndy-wound Skin Appearance) Assessed,Rubor -Temperature (Cyndy-wound Skin No Abnormality Appearance) (Pt Warm) -Tenderness on Palpation (Cyndy-wound Yes Skin Appearance) -Ulcer Cleansing soap and water -Foul Odor after Cleansing No -Anesthetic Used 4% Lidocaine Solution [Edema Assessment] -Lower Limb Edema Present Yes -Right Calf (cm) 44.8 -Right Ankle (cm) 26.5 WC - Nurse 2 - General Ulcer CM Notes Start: 05/22/19 15:54 Freq: Status: Active Protocol: Activity Type Activity Date Activity User E-Sign Co-Sign Detail Recorded Client Recorded Date Recorded By Document 05/22/19 16:12 AN [id number] 05/22/19 16:19 AN 05/22/19 16:12 Wound Center Nurse 2 [Procedure/Treatment] #11- R LAT FOOT -Time 16:14 -Correct Patient Yes -Correct Side, Site, Position Yes -Correct Procedure Yes -Procedure Performed Yes -Type of Procedure Debridement -Clinical Debridement Subcutaneous -Post Debridement Size (cm) - Length 1.1 -Post Debridement Size (cm) - Width 0.7 -Post Debridement Size (cm) - Depth 0.2 -Total Square Cm 0.77 -Wound/Ulcer Outcome Not Healed -Bleeding Controlled with Pressure -Offloading Yes -Treatment Response Procedure Tolerated Well #10- R LAT HEEL -Time 16:15 -Correct Patient Yes -Correct Side, Site, Position Yes -Correct Procedure Yes -Procedure Performed Yes -Type of Procedure Debridement -Clinical Debridement Subcutaneous -Post Debridement Size (cm) - Length 1.3 -Post Debridement Size (cm) - Width 1.1 -Post Debridement Size (cm) - Depth 0.2 -Total Square Cm 1.43 -Wound/Ulcer Outcome Not Healed -Ulcer Cleansing Rinsed/ Irrigated with Saline -Foul Odor after Cleansing No -Bioengineered Tissue No -Bleeding Controlled with Pressure -Offloading Yes -Treatment Response Procedure Tolerated Well #9- R MCDOWELL INFERIOR/LAT LEG -Time 16:15 -Correct Patient Yes -Correct Side, Site, Position Yes -Correct Procedure Yes -Procedure Performed Yes -Type of Procedure Debridement -Clinical Debridement Subcutaneous -Post Debridement Size (cm) - Length 3.1 -Post Debridement Size (cm) - Width 9.1 -Post Debridement Size (cm) - Depth 0.3 -Total Square Cm 28.21 -Wound/Ulcer Outcome Not Healed -Ulcer Cleansing Rinsed/ Irrigated with Saline -Foul Odor after Cleansing No -Bioengineered Tissue No -Bleeding Controlled with Pressure -Offloading Yes -Treatment Response Procedure Tolerated Well #8- R MCDOWELL SUPERIOR -Time 16:16 -Correct Patient Yes -Correct Side, Site, Position Yes -Correct Procedure Yes -Procedure Performed Yes -Type of Procedure Debridement -Clinical Debridement Subcutaneous -Post Debridement Size (cm) - Length 11.6 -Post Debridement Size (cm) - Width 6.6 -Post Debridement Size (cm) - Depth 0.4 -Total Square Cm 76.56 -Wound/Ulcer Outcome Not Healed -Ulcer Cleansing Rinsed/ Irrigated with Saline -Foul Odor after Cleansing No -Bioengineered Tissue No -Bleeding Controlled with Pressure -Offloading Yes -Treatment Response Procedure Tolerated Well [See Physician Procedure note for Specifics] Pain Scale: 0-10 Numeric [Pain] -Is Patient Pain Free? Yes Musculoskeletal: No Tenderness to Palpation of Joints or Extremities, Muscle Wasting, - - No bogginess or fluctuance on palpation Neurological: Sensory exam intact to light touch and pain Psych/Mental Status: Normal Affect, Appropriate, Anxious Debridement Note Post-Debridement Measurements/Treatment WC - Nurse 2 - General Ulcer CM Notes Start: 05/22/19 15:54 Freq: Status: Active Protocol: Activity Type Activity Date Activity User E-Sign Co-Sign Detail Recorded Client Recorded Date Recorded By Document 05/22/19 16:12 AN [id number] 05/22/19 16:19 AN 05/22/19 16:12 Wound Center Nurse 2 #11- R LAT FOOT -Time 16:14 -Correct Patient Yes -Correct Side, Site, Position Yes -Correct Procedure Yes -Procedure Performed Yes -Type of Procedure Debridement -Clinical Debridement Subcutaneous -Post Debridement Size (cm) - Length 1.1 -Post Debridement Size (cm) - Width 0.7 -Post Debridement Size (cm) - Depth 0.2 -Total Square Cm 0.77 -Wound/Ulcer Outcome Not Healed -Bleeding Controlled with Pressure -Offloading Yes -Treatment Response Procedure Tolerated Well #10- R LAT HEEL -Time 16:15 -Correct Patient Yes -Correct Side, Site, Position Yes -Correct Procedure Yes -Procedure Performed Yes -Type of Procedure Debridement -Clinical Debridement Subcutaneous -Post Debridement Size (cm) - Length 1.3 -Post Debridement Size (cm) - Width 1.1 -Post Debridement Size (cm) - Depth 0.2 -Total Square Cm 1.43 -Wound/Ulcer Outcome Not Healed -Ulcer Cleansing Rinsed/ Irrigated with Saline -Foul Odor after Cleansing No -Bioengineered Tissue No -Bleeding Controlled with Pressure -Offloading Yes -Treatment Response Procedure Tolerated Well #9- R MCDOWELL INFERIOR/LAT LEG -Time 16:15 -Correct Patient Yes -Correct Side, Site, Position Yes -Correct Procedure Yes -Procedure Performed Yes -Type of Procedure Debridement -Clinical Debridement Subcutaneous -Post Debridement Size (cm) - Length 3.1 -Post Debridement Size (cm) - Width 9.1 -Post Debridement Size (cm) - Depth 0.3 -Total Square Cm 28.21 -Wound/Ulcer Outcome Not Healed -Ulcer Cleansing Rinsed/ Irrigated with Saline -Foul Odor after Cleansing No -Bioengineered Tissue No -Bleeding Controlled with Pressure -Offloading Yes -Treatment Response Procedure Tolerated Well #8- R MCDOWELL SUPERIOR -Time 16:16 -Correct Patient Yes -Correct Side, Site, Position Yes -Correct Procedure Yes -Procedure Performed Yes -Type of Procedure Debridement -Clinical Debridement Subcutaneous -Post Debridement Size (cm) - Length 11.6 -Post Debridement Size (cm) - Width 6.6 -Post Debridement Size (cm) - Depth 0.4 -Total Square Cm 76.56 -Wound/Ulcer Outcome Not Healed -Ulcer Cleansing Rinsed/ Irrigated with Saline -Foul Odor after Cleansing No -Bioengineered Tissue No -Bleeding Controlled with Pressure -Offloading Yes -Treatment Response Procedure Tolerated Well Pain Scale: 0-10 Numeric Is Patient Pain Free? Yes Wound debrided: anterior leg (superior) Laterality: Right Type of Debridement: Excisional debridement Anesthesia Used: 5% Lidocaine Gel Depth: in the subcutaneous layer Percentage of wound debrided: 100 Instrument Used: #15 blade Tissue Removed: fibrous, devitalized subcutaneous, biofilm, slough Severity: Fat Layer Exposed Amount of bleeding with debridement: Mild Bleeding Controlled with: Pressure Patient tolerated procedure well - Additional Wound Wound debrided: anterior leg (inferior) Laterality: Right Type of Debridement: Excisional debridement Anesthesia Used: 5% Lidocaine Gel Depth: in the subcutaneous layer Percentage of wound debrided: 100 Instrument Used: #15 blade Tissue Removed: fibrous, devitalized subcutaneous, biofilm, slough Severity: Fat Layer Exposed Amount of bleeding with debridement: Mild Bleeding Controlled with: Pressure Patient tolerated procedure: Patient tolerated procedure well - Additional Wound Wound debrided: lateral foot Laterality: Right Type of Debridement: Excisional debridement Anesthesia Used: 5% Lidocaine Gel Depth: in the subcutaneous layer Percentage of wound debrided: 100 Instrument Used: #15 blade Tissue Removed: fibrous, devitalized subcutaneous, biofilm, slough Severity: Fat Layer Exposed Amount of bleeding with debridement: Mild Bleeding Controlled with: Pressure Patient tolerated procedure: Patient tolerated procedure well - Additional Wound Wound debrided: heel Laterality: Right Type of Debridement: Excisional debridement Anesthesia Used: 5% Lidocaine Gel Depth: in the subcutaneous layer Percentage of wound debrided: 100 Instrument Used: #15 blade Tissue Removed: fibrous, devitalized subcutaneous, biofilm, slough Severity: Fat Layer Exposed Amount of bleeding with debridement: Mild Bleeding Controlled with: Pressure Patient tolerated procedure: Patient tolerated procedure well Assessment/Plan Active Problems (Last Updated 04/17/19 @ 17:18 by Corwin Costa MD) 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) Ulcer of right foot with fat layer exposed (Chronic) Malnutrition (Chronic) Contracture of knee joint (Chronic) Venous insufficiency (Chronic) Delayed wound healing (Chronic) PAOD (peripheral arterial occlusive disease) (Chronic) Assessment: Right leg ulcer with fat layer exposed x 2. Right heel ulcer with fat layer exposed, maggots infestation resolved. right foot ulcers that layer exposed, no infection. Malnutrition. Peripheral vascular disease. 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 Bilateral lower leg edema swelling increased in the left leg. Neuropathy lower extremities. Atrial fibrillation. Non compliance. Venous insufficiency. Left lower extremity amputation healing noted. Right knee contracture. New proximal ulcers Plan: I reviewed and discuss his case. It is noted he continues on antibiotics under the management of infectious disease. His diagnostic data was recently reviewed during his last hospital admission. He has known peripheral vascular disease and chronic venous insufficiency is also suspected. His ulcers were debrided as noted in the clinical panel. To continue daily Santyl application with his home health nurse. To offload by keeping pressure off of the sites. He understands his knee contracture is an issue for healing and functionality. He understands he is high risk for amputation and this may be more functional for him. His heel ulcer site appears to be doing well and is progressing the most. He would like to proceed with a limb salvage plan at this time. To take nutritional supplementation to optimize healing. To monitor for development of infection. This has improved compared to last week. To continue with periodic elevation and application of Brandon wrap to control edema. I answered his questions. To follow-up with vascular surgery for intervention is scheduled. He will return to the wound healing center 1 week or call sooner if you have any questions or concerns. His proximal ulcers are also noted and he will follow- up with another wound care center provider review sites are not my current [place] license scope of practice.
[2019-06-05 11:04] VITALS: BP 118/73; PULSE 120; RESP 18; TEMP 37; BMI 19.5
--- NOTE | 2019-06-05 11:05 | WC ---
pt to room per W/C assisted manually to bed . pt has urine soaked shorts & R lower leg dressing. Dr sommers and Halina aware. pt RLE dressing removed and washed with soap and water
--- NOTE | 2019-06-05 12:03 | PN.PCM_ITS ---
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 Current Visit: Yes Code(s): I77.9 - Disorder of arteries and arterioles, unspecified (2) Ulcer of right lower extremity with fat layer exposed Status: Chronic Current Visit: Yes Code(s): L97.912 - Non-pressure chronic ulcer of unspecified part of right lower leg with fat layer exposed (3) Ulcer of right foot with fat layer exposed Status: Chronic Current Visit: Yes Code(s): L97.512 - Non-pressure chronic ulcer of other part of right foot with fat layer exposed (4) Malnutrition Status: Chronic Current Visit: Yes Code(s): E46 - Unspecified protein- calorie malnutrition (5) Contracture of knee joint Status: Chronic Current Visit: Yes Qualifiers: Code(s): M24.569 - Contracture, unspecified knee (6) Venous insufficiency Status: Chronic Current Visit: Yes Code(s): I87.2 - Venous insufficiency (chronic) (peripheral) (7) Delayed wound healing Status: Chronic Current Visit: Yes Code(s): T14.8XXD - Other injury of unspecified body region, subsequent encounter (8) Failure to thrive Status: Acute Current Visit: Yes Type of Wound Date of Service: 06/05/19 Chief Complaint: Right leg and foot ulcers History of Wound: 78-year-old male returns to the wound healing center for right leg ulcers, heel ulcer, a right foot ulcer. He has a home nurse visiting who helps with Santyl dressings. He has a home health nurse and also privately hired nurse to help with this. He has completed course of antibiotics. He is continue to follow-up with orthopedics in regards to his knee contracture and understands he is at risk for limb loss. He has established peripheral vascular disease and is under the care of Dr. Maloney. He relates his next follow-up for an interventional angiogram procedure is in about 1 month. He denies current fever, chill, nausea, vomiting. His pain is controlled today. He presents in a wheelchair. He tries to apply the Brandon wrap intermittently as tolerated. He has a new ulcers to the back of his thigh and buttock from sitting in his wheelchair for an extended period of time; he saw Dr. Meade for this condition today. He has had recent difficulty at home even with the daily nursing help. His has Alzheimer's and had a recent surgery as well. He presents today with urine soaked garments. Progress of Wound: Stable right leg and foot ulcers. proximal ulcers reported - Physical Exam Vital Signs Temp Pulse Resp BP 98.6 F 120 H 18 118/73 06/05/19 11:04 06/05/19 11:04 06/05/19 11:04 06/05/19 11:04 General: Alert, Oriented x3, Cooperative, No apparent distress, Lethargic, - - Very talkative HEENT: Atraumatic Extremities: No cyanosis, Capillary Refill Less than 3 Seconds, No Calf Tenderness - negative celeste right, Diminished Peripheral Pulses, Edema - Right lower extremity with weeping Skin: Ulcer/ Wound - Anterior right leg ulcer is fibrous with devitalized tissue noted. There is no erythema, streaking, purulence or bone exposed. He also has continuation of foot ulcer to the lateral aspect that has pale granular base and some peripheral moisture noted. There is no fluctuance or bogginess on palpation., - - The peripheral skin is hairless and atrophic. Musculoskeletal: No Tenderness to Palpation of Joints or Extremities, Muscle Wasting, - - Rigidly contracted right knee. Left lower extremity amputation. Right lower extremity compartments are soft to palpate Neurological: Sensory exam intact to light touch and pain Psych/Mental Status: Normal Affect, Restless Debridement Note Post-Debridement Measurements/Treatment WC - Nurse 2 - General Ulcer CM Notes Start: 05/22/19 15:54 Freq: Status: Active Protocol: Activity Type Activity Date Activity User E-Sign Co-Sign Detail Recorded Client Recorded Date Recorded By Document 05/22/19 16:12 AN [id number] 05/22/19 16:19 AN 05/22/19 16:12 Wound Center Nurse 2 #11- R LAT FOOT -Time 16:14 -Correct Patient Yes -Correct Side, Site, Position Yes -Correct Procedure Yes -Procedure Performed Yes -Type of Procedure Debridement -Clinical Debridement Subcutaneous -Post Debridement Size (cm) - Length 1.1 -Post Debridement Size (cm) - Width 0.7 -Post Debridement Size (cm) - Depth 0.2 -Total Square Cm 0.77 -Wound/Ulcer Outcome Not Healed -Bleeding Controlled with Pressure -Offloading Yes -Treatment Response Procedure Tolerated Well #10- R LAT HEEL -Time 16:15 -Correct Patient Yes -Correct Side, Site, Position Yes -Correct Procedure Yes -Procedure Performed Yes -Type of Procedure Debridement -Clinical Debridement Subcutaneous -Post Debridement Size (cm) - Length 1.3 -Post Debridement Size (cm) - Width 1.1 -Post Debridement Size (cm) - Depth 0.2 -Total Square Cm 1.43 -Wound/Ulcer Outcome Not Healed -Ulcer Cleansing Rinsed/ Irrigated with Saline -Foul Odor after Cleansing No -Bioengineered Tissue No -Bleeding Controlled with Pressure -Offloading Yes -Treatment Response Procedure Tolerated Well #9- R MCDOWELL INFERIOR/LAT LEG -Time 16:15 -Correct Patient Yes -Correct Side, Site, Position Yes -Correct Procedure Yes -Procedure Performed Yes -Type of Procedure Debridement -Clinical Debridement Subcutaneous -Post Debridement Size (cm) - Length 3.1 -Post Debridement Size (cm) - Width 9.1 -Post Debridement Size (cm) - Depth 0.3 -Total Square Cm 28.21 -Wound/Ulcer Outcome Not Healed -Ulcer Cleansing Rinsed/ Irrigated with Saline -Foul Odor after Cleansing No -Bioengineered Tissue No -Bleeding Controlled with Pressure -Offloading Yes -Treatment Response Procedure Tolerated Well #8- R MCDOWELL SUPERIOR -Time 16:16 -Correct Patient Yes -Correct Side, Site, Position Yes -Correct Procedure Yes -Procedure Performed Yes -Type of Procedure Debridement -Clinical Debridement Subcutaneous -Post Debridement Size (cm) - Length 11.6 -Post Debridement Size (cm) - Width 6.6 -Post Debridement Size (cm) - Depth 0.4 -Total Square Cm 76.56 -Wound/Ulcer Outcome Not Healed -Ulcer Cleansing Rinsed/ Irrigated with Saline -Foul Odor after Cleansing No -Bioengineered Tissue No -Bleeding Controlled with Pressure -Offloading Yes -Treatment Response Procedure Tolerated Well Pain Scale: 0-10 Numeric Is Patient Pain Free? Yes Assessment/Plan Active Problems (Last Updated 04/17/19 @ 17:18 by Corwin Costa MD) Failure to thrive (Acute) 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) Ulcer of right foot with fat layer exposed (Chronic) Malnutrition (Chronic) Contracture of knee joint (Chronic) Venous insufficiency (Chronic) Delayed wound healing (Chronic) PAOD (peripheral arterial occlusive disease) (Chronic) Assessment: Right leg ulcer with fat layer exposed x 2, no infection. Right heel ulcer with fat layer exposed, no infection. right foot ulcers that layer exposed, no infection. thigh ulcers, no infection. Malnutrition. Peripheral vascular disease. 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 Bilateral lower leg edema swelling increased in the left leg. Neuropathy lower extremities. Atrial f ibrillation. Non compliance. Venous insufficiency. Left lower extremity amputation healing noted. Right knee contracture. Plan: I reviewed and discuss his case. He is talkative today and is unable to stay on track in a more advanced manner than prior visits. He does not appear to be able to take care of himself in a safe and appropriate manner at home regardless of daily home nursing care. It is noted his is no longer able to help him due to her medical status change. He was advised to go for evaluation of failure to thrive. I recommend prison facility placement. He understands there is an insurance approval process associated with this. It was discussed at length if he is amendable to proceed forward with a temporary prison placement and he relates he is open to this option. He has known peripheral vascular disease and chronic venous insufficiency is also suspected. To continue daily Santyl. To offload by keeping pressure off of the sites. He understands his knee contracture is an issue for healing and functionality. He understands he is high risk for amputation and this may be more functional for him. His heel ulcer site appears to be doing well and is progressing the most. He would like to proceed with a limb salvage plan at this time. To take nutritional supplementation to optimize healing. To monitor for development of infection. This has improved compared to his last wound center visit. To continue with periodic elevation and application of Brandon wrap to control edema. I answered his questions. To follow-up with vascular surgery for intervention is scheduled. He will return to the wound healing center 1 week or call sooner if you have any questions or concerns. His proximal ulcers are also noted and he is also following with Dr. Meade. I answered his questions.
== END 2019-06-17 23:59 ==
LOC: WC 10:00
PROVIDERS: Family Provider Internal Medicine; PCP Internal Medicine; Referring Provider Podiatrist; Visit Provider Podiatrist
DX: I73.9 Peripheral vascular disease, unspecified (principal); L97.412 Non-pressure chronic ulcer of right heel and midfoot with fat layer exposed; M24.561 Contracture, right knee; I87.2 Venous insufficiency (chronic) (peripheral); L97.812 Non-pressure chronic ulcer of other part of right lower leg with fat layer exposed; L97.512 Non-pressure chronic ulcer of other part of right foot with fat layer exposed; Z86.14 Personal history of Methicillin resistant Staphylococcus aureus infection; M30.3 Mucocutaneous lymph node syndrome [Kawasaki]; G62.9 Polyneuropathy, unspecified; Z91.19 Patient's noncompliance with other medical treatment and regimen; I48.91 Unspecified atrial fibrillation; I50.22 Chronic systolic (congestive) heart failure
CPT/HCPCS: 11042; 11045

== ENCOUNTER 2019-06-05 12:04 | Emergency (ER) | payer MEDICARE, OTHER, SELFPAY ==
[2019-06-05 11:04] VITALS: BMI 19.5
[2019-06-05 12:06] VITALS: BP 110/41; PULSE 128; RESP 20; TEMP 36.7; O2SAT 99; BMI 19.1
--- NOTE | 2019-06-05 12:58 | ED.VIS.GEN ---
History of Present Illness Chief Complaint: Wound Informant: Patient Narrative: Patient reported was sent over from the wound center secondary to concerns about ability to take care of himself. He has left AKA, chronic right knee flexure and chronic right lower extremity wounds. Patient is in a wheelchair. Friend at bedside states he never really gets out of the chair. Physician from the wound center called over and stated the wound does not look acutely infected, but they were worried about his ability to care for himself at home. Past Medical History - Allergies and Home Meds Allergies/Adverse Reactions: Allergies codeine Adverse Reaction (Verified 06/05/19 12:06) Nausea Primary Care Physician: Phoebe Daniels MD [Primary Care Provider] - Prior records reviewed: Yes Past Medical History: - - Reviewed Surgical History: appendectomy, herniorrhaphy, - - Hand surgery. left MAMIE Lives: Spouse/ Significant Other Smoking Status: Former smoker - Family History Maternal Family History: Family History (Last Reviewed 04/15/19 @ 15:28 by Kwaku Lancaster MD) Mother Alzheimers disease Grandmother Alzheimers disease Brother Cancer Family History: Reports: Dementia Paternal Family History: Family History (Last Reviewed 04/15/19 @ 15:28 by Kwaku Lancaster MD) Mother Alzheimers disease Grandmother Alzheimers disease Brother Cancer Family History: Reports: - - venous ulcers Review of Systems General: Denies: Chills, Fever Eyes: Denies: Visual changes - bilaterally ENT: Denies: Bilateral ear pain Cardiovascular: Denies: Chest pain Respiratory: Denies: Dyspnea Skin: Reports: Wounds Hematologic: Denies: Easy bleeding Physical Exam Vital Signs/Narrative: Vital Signs Temp Pulse Resp BP Pulse Ox 06/05/19 12:06 98.1 F 128 H 20 H 110/41 L 99 Inital Vital Signs reviewed: Yes General: Well nourished, Well developed ENT: Moist mucous membranes Cardiovascular: Irregular Respiratory: No distress, CTA bilaterally Abdomen: Soft, Nontender Extremities: - - Chronic right lower extremity wound with dressing in place. Patient just left the wound center. Neurological: Alert, Oriented x3 Psychological: Normal affect Diagnostic/Tx/Re-eval - Medical Decision Making She will work. Patient already has home health that comes regular. We are able to speak with him on the phone. They state that they do just come in for wound care to his leg. They state problem they have noticed is that he urinates down his leg and it contaminates his wound. Patient told me that he was wearing a diaper. Home health recommended trying a condom catheter and they would be able to assess tomorrow if this was beneficial. Patient reportedly does have trapezius coming for his bed tomorrow to help him get from his wheelchair to bed. Patient has continued to refuse any placement in facility for additional assistance. Home health is meeting with him tomorrow to discuss this further. ED Disposition - Plan for ED Patient: Disposition: Home or Assisted Living Diagnosis: Declining functional status, Failure to thrive Instructions: WEAKNESS, Unk Cause Referrals: Phoebe Daniels MD [Primary Care Provider] -
--- NOTE | 2019-06-05 13:15 | ED.RN ---
WOUND ASSESSED BY MD, PT NOT HERE FOR CONCERNS WITH WOUND-SEE MD REPORT.
--- NOTE | 2019-06-05 13:20 | CM.ED ---
SOCIAL WORK INFORMANT: DR. CA REASON FOR REFERRAL: D/C PLANNING PATIENT KNOWN TO IMAGING TECHNICIAN FROM PREVIOUS VISITS AND ADMISSION. COLLABORATION WITH KATHY AND MERVIN STODDARD WITH [facility]. PER HOME HEALTH, DOES NOT FEEL PATIENT IS MAKING GOOD DECISIONS AND MAY BE CONSIDERING DISCHARGING PATIENT FROM THEIR SERVICES. MERVIN AND HOME HEALTH SOFTWARE DEVELOPMENT PROJECT MANAGERALYCIA TO BE GOING OUT TO MEET WITH PATIENT TOMORROW, 06/06/19. ENCOURAGED IF NEEDED, ADULT PROTECTIVE SERVICE REPORT BE MADE WITH CONCERNS FOR PATIENT AND 'S SAFETY IN THE HOME. REPORT HAS BEEN MADE TO ADULT PROTECTIVE SERVICES UPON LAST ADMISSION BY THIS WORKER. DR. CA SPOKE WITH [facility] REGARDING ADDITIONAL SUPPLIES. SUPPORTS/RESOURCES: [facility] SN/AIDE MONDAYS/FRIDAYS, WOUND CLINIC ON WEDNESDAYS, AND ROUTE SALESPERSONDRISS. MET WITH PATIENT IN ROOM. PATIENT WISHES TO RETURN HOME UPON D/C AND VISITOR IS PRESENT IN ROOM TO TRANSPORT PATIENT HOME UPON D/C. PLAN: HOME WITH HOME HEALTH TO FOLLOW UP IN THE HOME TOMORROW. GEORGE VARELA, MELTER ASSISTANT, DONKEY ENGINE FIRER/FIREMAN.
[2019-06-05 13:41] VITALS: BP 117/69; PULSE 89; RESP 16; O2SAT 97
--- NOTE | 2019-06-05 14:14 | ED.RN ---
CONDOM CATHETERM CATHETER BAG AND LEG BAG SENT HOME WITH PT FOR HOME HEALTH TO APPLY AND USE PER MD REQUEST.
== END 2019-06-05 13:45 | disposition home or self-care (01) ==
PROVIDERS: Emergency Provider Emergency Medicine; Family Provider Internal Medicine; PCP Internal Medicine
DX: R62.7 Adult failure to thrive (principal); R53.81 Other malaise; Z89.612 Acquired absence of left leg above knee; Z87.891 Personal history of nicotine dependence; S81.801A Unspecified open wound, right lower leg, initial encounter; X58.XXXA Exposure to other specified factors, initial encounter; Y93.89 Activity, other specified; Y92.89 Other specified places as the place of occurrence of the external cause; Y99.8 Other external cause status
CPT/HCPCS: 99282

== ENCOUNTER 2019-06-10 16:30 | Inpatient (IN) | payer MEDICARE, OTHER, SELFPAY ==
[2019-06-10] VITALS (8 sets, daily range): BP systolic 79–116; BP diastolic 45–79; PULSE 82–123; RESP 13–25; TEMP 36.4–37.2; O2SAT 96–98; BMI 19.3; BMI 19.5; BMI 23.1
--- NOTE | 2019-06-10 19:26 | CM.ED ---
Social Work Consult: Discharge Planning/ECF placement Informant: Dr. Vu Met with patient in room. Introduced self as well as renal social worker role. Patient familiar with this renal social worker from past encounters. Patient lives with patient spouse. Patient spouse is unable to assist patient due to being diagnosed with dementia. Patient is wheelchair bound. Patient stating to have all needs at home. Patient stating to have home health services coming to manage patient wound care. Patient also goes to the wound care center. Patient is not interested in detention stating that things are getting hard at home. Patient stating that 1st choice of facility is [facility] ([facility] Patient aware that patient will need to meet medical qualifications in order to admit to the hospital setting. Patient stating to not be open to private pay in a facility as that is crazy. Collaborating further with Dr. Vu, Dr. Vu to consult hospitalist for possible admission. Social work to continue to follow as indicated. Maryjane Cross MSW, MILLY
--- NOTE | 2019-06-10 19:27 | EKG12_ITS ---
Test Reason : Blood Pressure : / mmHG Vent. Rate : 131 BPM Atrial Rate : 159 BPM P-R Int : 000 ms QRS Dur : 114 ms QT Int : 266 ms P-R-T Axes : 000 080 059 degrees QTc Int : 392 ms Atrial fibrillation with rapid ventricular response Incomplete right bundle branch block Nonspecific T wave abnormality Abnormal ECG Confirmed by DEB OROURKE, KAREEM ([id number]), manager editorial GERMAN AGUIRRE ([id number]) on 06/12/2019 10:49:34 AM Referred By: Kareem Callaway Confirmed By:KAREEM BOYD MD
[2019-06-10 19:39] LABS: Bacteria 0 SEEN /hpf (None Seen)
[2019-06-10 19:40] LABS: Color, Urine Yellow (Yellow); Glucose, Dipstick Normal (Normal); Ketone-Dipstick 5 mg/dl (Negative); Leukocyte Esterase-Dipstick Negative /ul (Negative); Nitrite-Dipstick Negative (Negative); Occult Blood-Urine 25 /ul (Negative); Protein-Dipstick Negative (Negative); Urine Bilirubin Dipstick Negative (Negative); Urine Clarity Clear (Clear); Urine Urobilinogen 1 mg/dl (Normal)
[2019-06-10 19:44] LABS: Absolute Lymphocyte Count 1.27 X10^3/uL (0.83-4.51); Absolute Neutrophil Count 5.2 X10^3/uL (2.0-7.7); Basophil# 0.04 X10^3/uL; Basophil% 0.5 % (0-1); Eosinophil# 0.15 X10^3/uL; Hematocrit 37.8 % (40-54); Hemoglobin 11.8 g/dL (13.0-16.5); Lymphocyte # 1.27 X10^3/ul (4.0); Lymphocyte % 17.1 % (19-41); Mean Corp Hgb Conc 31.2 g/dL (32-36); Mean Corpuscular Hgb 28.7 pg (27.0-32.0); Mean Platelet Vol. 9.4 fl (6.2-12.0); Monocyte# 0.78 X10^3/uL; Monocyte% 10.5 % (0-10); NRBC Flagged by Analyzer 0 % (0-5); Neutrophil # 5.15 X10^3/uL (2.7-7.7); Neutrophil % 69.5 % (47-70); Platelet Count 377 K/mm3 (150-450); RBC Distribution Width CV 14.5 % (11.6-14.6); Red Blood Count 4.11 M/mm3 (4.6-6.2); White Blood Count 7.4 K/mm3 (4.4-11.0)
[2019-06-10 19:50] LABS: Hyaline Cast 0-5 SEEN /lpf (0-5)
[2019-06-10 19:51] LABS: Mucous, Urine 1+ /hpf (<or=2+)
[2019-06-10 19:52] LABS: Red Blood Cells-Urine 0-5 SEEN /hpf (0-5); Squamous Epithelial Cells - UA 0-5 SEEN /hpf (0-5)
[2019-06-10 19:53] LABS: White Blood Cells 0-5 SEEN /hpf (0-5)
--- NOTE | 2019-06-10 20:11 | ED.RN ---
lab called with critical lab results. lactic acid 2.0. Dr. Vu made aware. no new orders at this time
[2019-06-10 20:29] LABS: ALB/GLOB Ratio 0.6 RATIO (0.9-2.4); AST(SGOT) 20 U/L (15-37); Alanine Aminotransfer ALT/SGPT 17 U/L (16-61); Albumin, Serum 2.4 g/dL (3.2-5.0); Alkaline Phosphatase 71 U/L (45-117); Anion Gap 4 (5-15); BUN 18 mg/dL (7-18); BUN/Creat Ratio 19.8 RATIO (10-20); Calcium,Total 8.5 mg/dL (8.5-10.1); Chloride 109 mmol/L (98-107); Creatinine, Serum 0.91 mg/dL (0.70-1.30); EST Glomerular Filtration Rate 86 mL/min (>60); Est Glom Filt Rate - Afr Amer 104 mL/min (>60); Estimated Creatinine Clearance 64.55 ml/min; Glucose 96 mg/dL (74-106); Potassium 3.4 mmol/L (3.5-5.1); Protein, Total 6.4 g/dL (6.4-8.2); Sodium Level 144 mmol/L (136-145)
[2019-06-10] MEDS: Metoprolol Tartrate 5 MG/5 ML Vial IV (21:55)
[2019-06-10] MEDS: Metoprolol Tartrate 25 MG Tablet PO (21:55)
[2019-06-10] MEDS: traMADol 50 MG Tablet PO (21:56)
--- NOTE | 2019-06-10 22:10 | PCM.HP.STD ---
Problem List (1) Failure to thrive Status: Chronic Qualifiers: (2) Knee contracture Status: Chronic (3) Ulcer of right lower extremity with fat layer exposed Status: Chronic (4) Malnutrition Status: Chronic (5) Wound of right lower extremity Status: Acute (6) Essential hypertension Status: Chronic (7) Delayed wound healing Status: Chronic (8) Chronic atrial fibrillation Status: Acute Comment: with RVR History of Present Illness Date of Admission: 06/10/19 Chief Complaint: unable to care for self, chronic wounds, rapid heart rate The patient is a 78 year old male patient with a past medical history of alcohol abuse status post left [id number] amputation for chronic vascular insufficiency and wounds. The patient presents to the emergency room admitting that he can no longer safely care for himself at home. He has chronic wounds of the right lower extremity and scrotum which he continues to urinate into the wound dressings at home due to being unable to get to the bathroom on his own. The patient has been reluctant to be admitted to penitentiary facilities in the past however at this time he admits that he needs that kind of help. On further evaluation the emergency room an EKG was done which showed atrial fibrillation with RVR patient was already on Eliquis for his atrial fibrillation that is chronic however, the patient will now be admitted to the progressive care unit for management of the rapid ventricular response. He currently denies chest pain or shortness of breath but does feel weak. He is agreeable to being discharged to penitentiary facility following his admission here. 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) 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) Venous insufficiency (Chronic) CKD (chronic kidney disease) stage 3, GFR 30-59 ml/min (Chronic) Anemia (Chronic) Delayed wound healing (Chronic) Nonischemic cardiomyopathy (Chronic) Chronic systolic CHF (congestive heart failure) (Chronic) Bilateral edema of lower extremity (Chronic) Open wounds involving multiple regions of lower extremity (Chronic) Neuropathic pain, leg, 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) Medical History: Medical History (Last Reviewed 06/10/19 @ 16:23 by Kwaku Lancaster MD) Essential hypertension (Chronic) I10 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) L97.912 Osteomyelitis of left tibia (Chronic) M86.9 Ulcer of left lower extremity with fat layer exposed (Chronic) L97.922 Ulcer of left lower extremity with necrosis of bone (Chronic) L97.924 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) L97.923 Venous insufficiency (Chronic) I87.2 CKD (chronic kidney disease) stage 3, GFR 30-59 ml/min (Chronic) N18.3 Anemia (Chronic) D64.9 Delayed wound healing (Chronic) T14.8XXD Nonischemic cardiomyopathy (Chronic) I42.8 Chronic systolic CHF (congestive heart failure) (Chronic) I50.22 Chronic atrial fibrillation (Chronic) I48.2 BPH loc w/o ur obs/LUTS N40.0 Allergies codeine Adverse Reaction (Verified 06/10/19 16:31) Nausea Home Medications: Ambulatory Orders Medication Instructions Recorded Apixaban [Eliquis] 5 mg PO BID 05/24/17 Collagenase [Santyl] 1 applic TOPICAL DAILY #1 tube 04/20/19 metoprolol tartrate 25 mg tablet 25 mg PO BID #60 tab 05/24/19 furosemide 20 mg tablet 20 mg PO DAILY 06/10/19 traMADol [Ultram] 1 tab PO Q6H PRN PRN 06/10/19 Surgical History: Surgical History (Last Reviewed 06/10/19 @ 16:23 by Kwaku Lancaster MD) History of left above knee amputation Onset Date: ~10/03/18 Z89.612 History of appendectomy Onset Date: ~1994 Z90.49 History of tonsillectomy Z90.89 Surgical History: appendectomy, herniorrhaphy, - - Hand surgery. left AKA Psychiatric History: No pertinent psych hx Smoking Status: Former smoker - *Family History Maternal Family History: Family History (Last Reviewed 06/10/19 @ 16:23 by Kwaku Lancaster MD) Mother Alzheimers disease Grandmother Alzheimers disease Brother Cancer History Items: Dementia Paternal Family History: Family History (Last Reviewed 06/10/19 @ 16:23 by Kwaku Lancaster MD) Mother Alzheimers disease Grandmother Alzheimers disease Brother Cancer History Items: - - venous ulcers Review of Systems Constitutional: Reports: Weakness. Denies: Chills, Fever, Weight Change HEENT: Denies: Head Aches, Sinus Congestion, Sinus Drainage Cardiovascular: Denies: Chest Pain, Palpitations Respiratory: Denies: Cough, Shortness of breath at rest, Sputum production Gastrointestinal: Denies: Abdominal Pain, Nausea, Vomiting Genitourinary: Denies: Dysuria Musculoskeletal: Denies: Joint Pain, Joint Tenderness Skin: Reports: Skin Changes, Wounds. Denies: Rash Neurological: Denies: Numbness, Tingling, Focal weakness Psychiatric: Denies: Anxiety, Depression, Homicidal Ideations, Suicidal Ideations Hematologic/ Lymphatic: Denies: Easy Bruising, Easy Bleeding VTE Information - Inpt Only VTE Present on Admission: No VTE Mechan Device Prophylaxis: None VTE Pharm Prophylaxis ordered?: Yes - Physical Exam General: Alert, Cooperative, Confused HEENT: Atraumatic, Normocephalic Neck: Supple, Negative Carotid Bruits Lungs: Clear to auscultation, Normal air movement Cardiovascular: Normal S1, Normal S2, No murmurs, Irregular Rate, Tachycardic Abdomen: Bowel Sounds Present, Soft, Non Tender Extremities: Diminished Peripheral Pulses, Edema, Tenderness Skin: Ulcer/ Wound - large open wounds right leg and marked scrotal swelling, distal extremity swolln 2+ with erythema not warm Musculoskeletal: No Tenderness to Palpation of Joints or Extremities Neurological: Neuro grossly intact Psych/Mental Status: Normal Affect, Appropriate Vital Signs Temp Pulse Resp BP Pulse Ox 98.6 F 123 H 13 115/79 98 06/10/19 22:00 06/10/19 22:00 06/10/19 22:00 06/10/19 22:00 06/10/19 22:00 Oxygen Delivery Method Room Air Weight: 148 lb Body Mass Index (BMI) 19.5 Laboratory Tests Past 24 Hrs 0906/10/19 06/10/19 19:26 19:35 19:35 WBC 7.4 RBC 4.11 L Hgb 11.8 L Hct 37.8 L MCV 92.0 MCH 28.7 MCHC 31.2 L RDW Std Deviation 49.0 H RDW Coeff of Reinier 14.5 Plt Count 377 MPV 9.4 Immature Gran % (Auto) 0.400 Neut % (Auto) 69.5 Lymph % (Auto) 17.1 L [place] % (Auto) 10.5 H Eos % (Auto) 2.0 Baso % (Auto) 0.5 Absolute Neuts (auto) 5.2 Absolute Lymphs (auto) 1.27 Nucleated RBC % 0 Sodium Cancelled Potassium Cancelled Chloride Cancelled Carbon Dioxide Cancelled Anion Gap Cancelled BUN Cancelled Creatinine Cancelled Estim Creat Clear Calc Cancelled Est GFR (MDRD) Af Amer Cancelled Est GFR (MDRD) Non-Af Cancelled BUN/Creatinine Ratio Cancelled Glucose Cancelled Lactic Acid Calcium Cancelled Total Bilirubin Cancelled AST Cancelled ALT Cancelled Alkaline Phosphatase Cancelled Troponin I Total Protein Cancelled Albumin Cancelled Globulin Cancelled Albumin/Globulin Ratio Cancelled Urine Color Yellow Urine Clarity Clear Urine pH 5.0 Ur Specific [place] 1.020 Urine Protein Negative Urine Glucose (UA) Normal Urine Ketones 5 H Urine Occult Blood 25 H Urine Nitrite Negative Urine Bilirubin Negative Urine Urobilinogen 1 H Ur Leukocyte Esterase Negative Urine RBC 0-5 SEEN Urine WBC 0-5 SEEN Ur Squamous Epith Cells 0-5 SEEN Urine Bacteria 0 SEEN Hyaline Casts 0-5 SEEN Urine Mucus 1+ 06/10/19 06/10/19 06/10/19 19:35 20:00 20:00 WBC RBC Hgb Hct MCV MCH MCHC RDW Std Deviation RDW Coeff of Reinier Plt Count MPV Immature Gran % (Auto) Neut % (Auto) Lymph % (Auto) [place] % (Auto) Eos % (Auto) Baso % (Auto) Absolute Neuts (auto) Absolute Lymphs (auto) Nucleated RBC % Sodium 144 Potassium 3.4 L Chloride 109 H Carbon Dioxide 31.0 Anion Gap 4 L BUN 18 Creatinine 0.91 Estim Creat Clear Calc 64.55 Est GFR (MDRD) Af Amer 104 Est GFR (MDRD) Non-Af 86 BUN/Creatinine Ratio 19.8 Glucose 96 Lactic Acid 2.0 Calcium 8.5 Total Bilirubin 0.30 AST 20 ALT 17 Alkaline Phosphatase 71 Troponin I Pending Total Protein 6.4 Albumin 2.4 L Globulin 4.0 Albumin/Globulin Ratio 0.6 L Urine Color Urine Clarity Urine pH Ur Specific [place] Urine Protein Urine Glucose (UA) Urine Ketones Urine Occult Blood Urine Nitrite Urine Bilirubin Urine Urobilinogen Ur Leukocyte Esterase Urine RBC Urine WBC Ur Squamous Epith Cells Urine Bacteria Hyaline Casts Urine Mucus Assessment/Plan All Active Problems (Last Reviewed 06/10/19 @ 16:23 by Kwaku Lancaster MD) Wound of right lower extremity (Acute) Cellulitis of right leg (Acute) Pressure ulcer, heel, right, unstageable (Acute) Chronic atrial fibrillation (Acute) Chronic Problems (Last Reviewed 06/10/19 @ 16:23 by Kwaku Lancaster MD) Failure to thrive (Chronic) Knee contracture (Chronic) 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) Ulcer of right foot with fat layer exposed (Chronic) Malnutrition (Chronic) Contracture of knee joint (Chronic) Alcohol abuse (Chronic) Essential hypertension (Chronic) 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) Ulcer of left lower extremity with fat layer exposed (Chronic) Ulcer of left lower extremity with necrosis of bone (Chronic) 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) Venous insufficiency (Chronic) CKD (chronic kidney disease) stage 3, GFR 30-59 ml/min (Chronic) Anemia (Chronic) Delayed wound healing (Chronic) Nonischemic cardiomyopathy (Chronic) Chronic systolic CHF (congestive heart failure) (Chronic) Bilateral edema of lower extremity (Chronic) Open wounds involving multiple regions of lower extremity (Chronic) Neuropathic pain, leg, 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) Plan 1. Atrial fibrillation with RVR?continue Eliquis restart home metoprolol ,monitor on telemetry floor 2. Nonischemic cardiomyopathy/chronic systolic CHF-stable 3. hypertension?stable continue current medication 4. Failure to thrive?chronic open wounds right lower extremity unable to manage at home?wound care consult?social work consult for discharge planning to penitentiary 5. CBC CMP in the a.m. 6. DVT prophylaxis?low molecular weight heparin Code Visit Inpatient E&M: 59763 Init Hosp L3
[2019-06-10 23:42] LABS: Reflex Lactate? Y
[2019-06-11] VITALS (12 sets, daily range): BP systolic 87–116; BP diastolic 54–72; PULSE 102–134; RESP 16–18; TEMP 37.1–37.6; O2SAT 96–100; BMI 23.1
[2019-06-11 00:40] LABS: Lactic Acid 1.3 mmol/L (0.4-2.0)
--- NOTE | 2019-06-11 01:13 | ED.VISSUMM ---
- ER Visit Summary Date of Service: 06/11/19 Chief Complaint: I cannot live at home anymore History of Present Illness: The patient is a 78 M who presents the emergency department stating that he is ready to live in a assisted. He states that he was having home health care come to see him but they dropped him. Patient has been extremely reluctant in the past to have care home facility help care for him. He has a left AKA due to vascular insufficiency complicated with alcohol abuse. His chronic wounds to the right leg and scrotum. They have a hard time healing as he frequently has incontinence on them. He tells me he has a hard time getting to the bathroom. He has a history of atrial fibrillation and is on anticoagulants and metoprolol. He has not yet taken his metoprolol tonight. States he quit smoking. Physical Examination: Triage blood pressure was noted to be low and heart rate of 85. Bring him back to the room his blood pressure is normal but his heart rate is elevated. Gen: Well-nourished well-developed she does disheveled wearing sunglasses and a hat and smells heavily of urine Head: Normocephalic atraumatic Eyes: Perrl EOMI ENT: TMs clear no rhinorrhea moist mucous membranes Neck: Supple no lymphadenopathy no JVD nontender CVS: Irregularly irregular tachycardic rhythm Respiratory: No distress clear to auscultation bilaterally chest nontender Abdomen: Soft nontender nondistended normal bowel sounds no masses Back: Nontender Extremity: Chronic wounds to the right leg anteriorly the right posterior thigh in the right hemiscrotum. The right leg shows lymphedema and is weeping. Skin: Normal color no rash Neuro: alert orientated ?3 CN II-XII intact normal strength Psych: Normal affect normal mood Test Results: EKG shows atrial fibrillation at a rate of 131. White count is normal hemoglobin 1.8. Potassium 3.4. Chloride 109. Troponin negative urinalysis negative. Emergency Department Course and Treatment: Patient received a dose of IV metoprolol and his p.o. nighttime dose of metoprolol his heart rate is slowed down into the 90s. He also received a dose of IV Lasix. Spoke with our hospitalist and social workers on several occasions the patient will be admitted to PCU with plan for care home facility discharge. Impression: 1. Atrial fibrillation with rapid ventricular response 2. Failure to thrive 3. Chronic right lower extremity wounds 4. Scrotal ulcer 5. Lymphedema This note was generated with [employer] dictation software. It may contain incorrect words, spelling, and punctuation that were not noted in review of the chart prior to signing ED Disposition - Plan for ED Patient: Disposition: Acute Care Hospital [facility]
--- NOTE | 2019-06-11 02:21 | NURSING ---
Attempted to place padded boot on pt foot to protect heel from breakdown. Pt states heel is healing and refuses to wear padded boot. Education provided to no effect. Boot left in room, pt states he may wear it later.
[2019-06-11] MEDS: 0.9% Normal Saline 1,000 ML 75 ML IV ×2 (02:25→14:41)
[2019-06-11 07:10] LABS: Absolute Lymphocyte Count 0.93 X10^3/uL (0.83-4.51); Absolute Neutrophil Count 7.8 X10^3/uL (2.0-7.7); Basophil# 0.04 X10^3/uL; Basophil% 0.4 % (0-1); Eosinophil# 0.07 X10^3/uL; Eosinophils% 0.7 % (0-5); Hematocrit 35.3 % (40-54); Hemoglobin 11.3 g/dL (13.0-16.5); Lymphocyte # 0.93 X10^3/ul (4.0); Lymphocyte % 9.4 % (19-41); Mean Corpuscular Volume 90.5 fL (80-94); Mean Platelet Vol. 9.7 fl (6.2-12.0); Monocyte# 1.02 X10^3/uL; Monocyte% 10.3 % (0-10); NRBC Flagged by Analyzer 0 % (0-5); Neutrophil # 7.77 X10^3/uL (2.7-7.7); Neutrophil % 78.7 % (47-70); Platelet Count 385 K/mm3 (150-450); RBC Distribution Width CV 14.5 % (11.6-14.6); RBC Distribution Width SD 47.8 fl (35.1-43.9); White Blood Count 9.9 K/mm3 (4.4-11.0)
[2019-06-11 07:37] LABS: ALB/GLOB Ratio 0.6 RATIO (0.9-2.4); AST(SGOT) 20 U/L (15-37); Alanine Aminotransfer ALT/SGPT 16 U/L (16-61); Albumin, Serum 2.4 g/dL (3.2-5.0); Alkaline Phosphatase 64 U/L (45-117); Anion Gap 4 (5-15); BUN 15 mg/dL (7-18); BUN/Creat Ratio 20.1 RATIO (10-20); Calcium,Total 8.5 mg/dL (8.5-10.1); Chloride 111 mmol/L (98-107); Creatinine, Serum 0.75 mg/dL (0.70-1.30); EST Glomerular Filtration Rate 108 mL/min (>60); Est Glom Filt Rate - Afr Amer 130 mL/min (>60); Estimated Creatinine Clearance 69.46 ml/min; Globulin 3.7 g/dL (2.2-4.2); Glucose 96 mg/dL (74-106); Potassium 3.8 mmol/L (3.5-5.1); Protein, Total 6.1 g/dL (6.4-8.2); Sodium Level 143 mmol/L (136-145)
[2019-06-11] MEDS: Furosemide 20 MG Tablet PO (09:34)
[2019-06-11] MEDS: Metoprolol Tartrate 25 MG Tablet PO (09:34)
[2019-06-11] MEDS: APIXABAN 5 MG TABLET PO ×2 (09:34→22:00)
--- NOTE | 2019-06-11 10:28 | CASEMGMT ---
SW met with patient, he recognized SW from previous admission. SW asked if he is still willing to go to [facility]. He said he was in agreement. SW asked him if he was going to back out this time. He then went into a long story about how he did not back out he was analyzing the pros and cons. He went in to a long story about when he talks people learn a lot if they listen. He then went several different directions in his conversation. He talked about his photographic memory then he went on to a roommate he used to have that had one. Then he went on to the hospital wanting money, to he had a dream he was working on a report for the government. He told SW he is on the witness protection list with the FBI and he said he is wanted by the FBI. Patient's room phone rang and COURTNEY stepped out. COURTNEY will work on referral to [facility]. Dionne ATKINS MSW
[2019-06-11 11:16] LABS: M R Staph aureus DNA By PCR POSITIVE (Negative); Probe Check PASS; Staph aureus DNA By PCR POSITIVE (Negative)
[2019-06-11 12:19] LABS: Thyroid Stim Hormone (TSH) 0.57 uIU/mL (0.358-3.74)
--- NOTE | 2019-06-11 13:54 | NURSING ---
wound photo: right leg
--- NOTE | 2019-06-11 13:55 | NURSING ---
wound photo: right posterior/lateral, lateral foot/heel
--- NOTE | 2019-06-11 13:57 | NURSING ---
wound photo: right posterior thigh
--- NOTE | 2019-06-11 14:02 | PCM.PROGNOTE ---
<Washington Proctor - Last Filed: 06/11/19 14:09> Subjective: Patient is very talkative this morning and unable to maintain concentration on his medical condition and the questions that I have offered him. He requires frequent reorientation to the conversation. He remains in atrial fibrillation with rapid ventricular response this morning. He had somehypotension overnight. He was seen in the cardiology office by Dr. Lancaster yesterday. He has no palpitations. He has no chest pain, heaviness, tightness, lightheadedness, dizziness. He is not short of breath. He has no fevers or chills. He admits that at home his wounds have been contaminated by urine. He is agreeable to placement in snf. - Physical Exam General: Alert, Oriented x3, Cooperative HEENT: Atraumatic, PERRLA, EOMI, Normocephalic Neck: Supple, No JVD, Negative Carotid Bruits Lungs: Clear to auscultation, Normal air movement Cardiovascular: Regular rate, Irregular Rate, Tachycardic Abdomen: Bowel Sounds Present, Soft, Non Tender Extremities: No edema, Capillary Refill Less than 3 Seconds Skin: No rashes, No breakdown Musculoskeletal: No Tenderness to Palpation of Joints or Extremities, - - Left knee [id number] amputation, right distal extremity chronic wounds Neurological: Cranial nerves II-XII grossly intact Psych/Mental Status: Normal Affect, Appropriate, Alert and oriented to time, place, person, mood and affect Vital Signs Temp Pulse Resp BP Pulse Ox 99.4 F H 119 H 16 95/72 98 06/11/19 10:10 06/11/19 11:10 06/11/19 10:10 06/11/19 10:10 06/11/19 10:10 Oxygen Delivery Method Room Air Weight: 175 lb 0.012 oz Body Mass Index (BMI) 23.1 Intake and Output for Last 24 Hours 06/09/19 06/10/19 06/11/19 23:59 23:59 23:59 Intake Total 950 / 950 Balance 950 / 950 Microbiology Past 72 Hours 06/11/19 09:15 Gram Stain - Final Wound - Leg, Right Laboratory Tests Past 24 Hrs 06/10/19 06/10/19 06/10/19 19:26 19:35 19:35 WBC 7.4 RBC 4.11 L Hgb 11.8 L Hct 37.8 L MCV 92.0 MCH 28.7 MCHC 31.2 L RDW Std Deviation 49.0 H RDW Coeff of Reinier 14.5 Plt Count 377 MPV 9.4 Immature Gran % (Auto) 0.400 Neut % (Auto) 69.5 Lymph % (Auto) 17.1 L [place] % (Auto) 10.5 H Eos % (Auto) 2.0 Baso % (Auto) 0.5 Absolute Neuts (auto) 5.2 Absolute Lymphs (auto) 1.27 Nucleated RBC % 0 Sodium Cancelled Potassium Cancelled Chloride Cancelled Carbon Dioxide Cancelled Anion Gap Cancelled BUN Cancelled Creatinine Cancelled Estim Creat Clear Calc Cancelled Est GFR (MDRD) Af Amer Cancelled Est GFR (MDRD) Non-Af Cancelled BUN/Creatinine Ratio Cancelled Glucose Cancelled Lactic Acid Calcium Cancelled Total Bilirubin Cancelled AST Cancelled ALT Cancelled Alkaline Phosphatase Cancelled Troponin I Total Protein Cancelled Albumin Cancelled Globulin Cancelled Albumin/Globulin Ratio Cancelled TSH Urine Color Yellow Urine Clarity Clear Urine pH 5.0 Ur Specific [place] 1.020 Urine Protein Negative Urine Glucose (UA) Normal Urine Ketones 5 H Urine Occult Blood 25 H Urine Nitrite Negative Urine Bilirubin Negative Urine Urobilinogen 1 H Ur Leukocyte Esterase Negative Urine RBC 0-5 SEEN Urine WBC 0-5 SEEN Ur Squamous Epith Cells 0-5 SEEN Urine Bacteria 0 SEEN Hyaline Casts 0-5 SEEN Urine Mucus 1+ S.aureus Protein A PCR MRSA (PCR) 06/10/19 06/10/19 06/10/19 19:35 20:00 20:00 WBC RBC Hgb Hct MCV MCH MCHC RDW Std Deviation RDW Coeff of Reinier Plt Count MPV Immature Gran % (Auto) Neut % (Auto) Lymph % (Auto) [place] % (Auto) Eos % (Auto) Baso % (Auto) Absolute Neuts (auto) Absolute Lymphs (auto) Nucleated RBC % Sodium 144 Potassium 3.4 L Chloride 109 H Carbon Dioxide 31.0 Anion Gap 4 L BUN 18 Creatinine 0.91 Estim Creat Clear Calc 64.55 Est GFR (MDRD) Af Amer 104 Est GFR (MDRD) Non-Af 86 BUN/Creatinine Ratio 19.8 Glucose 96 Lactic Acid 2.0 Calcium 8.5 Total Bilirubin 0.30 AST 20 ALT 17 Alkaline Phosphatase 71 Troponin I < 0.015 Total Protein 6.4 Albumin 2.4 L Globulin 4.0 Albumin/Globulin Ratio 0.6 L TSH Urine Color Urine Clarity Urine pH Ur Specific [place] Urine Protein Urine Glucose (UA) Urine Ketones Urine Occult Blood Urine Nitrite Urine Bilirubin Urine Urobilinogen Ur Leukocyte Esterase Urine RBC Urine WBC Ur Squamous Epith Cells Urine Bacteria Hyaline Casts Urine Mucus S.aureus Protein A PCR MRSA (PCR) 06/11/19 06/11/19 06/11/19 00:08 06:44 06:44 WBC 9.9 RBC 3.90 L Hgb 11.3 L Hct 35.3 L MCV 90.5 MCH 29.0 MCHC 32.0 RDW Std Deviation 47.8 H RDW Coeff of Reinier 14.5 Plt Count 385 MPV 9.7 Immature Gran % (Auto) 0.500 Neut % (Auto) 78.7 H Lymph % (Auto) 9.4 L [place] % (Auto) 10.3 H Eos % (Auto) 0.7 Baso % (Auto) 0.4 Absolute Neuts (auto) 7.8 H Absolute Lymphs (auto) 0.93 Nucleated RBC % 0 Sodium 143 Potassium 3.8 Chloride 111 H Carbon Dioxide 28.0 Anion Gap 4 L BUN 15 Creatinine 0.75 Estim Creat Clear Calc 69.46 Est GFR (MDRD) Af Amer 130 Est GFR (MDRD) Non-Af 108 BUN/Creatinine Ratio 20.1 H Glucose 96 Lactic Acid 1.3 Calcium 8.5 Total Bilirubin 0.50 AST 20 ALT 16 Alkaline Phosphatase 64 Troponin I Total Protein 6.1 L Albumin 2.4 L Globulin 3.7 Albumin/Globulin Ratio 0.6 L TSH Urine Color Urine Clarity Urine pH Ur Specific [place] Urine Protein Urine Glucose (UA) Urine Ketones Urine Occult Blood Urine Nitrite Urine Bilirubin Urine Urobilinogen Ur Leukocyte Esterase Urine RBC Urine WBC Ur Squamous Epith Cells Urine Bacteria Hyaline Casts Urine Mucus S.aureus Protein A PCR MRSA (PCR) 06/11/19 06/11/19 06:44 09:15 WBC RBC Hgb Hct MCV MCH MCHC RDW Std Deviation RDW Coeff of Reinier Plt Count MPV Immature Gran % (Auto) Neut % (Auto) Lymph % (Auto) [place] % (Auto) Eos % (Auto) Baso % (Auto) Absolute Neuts (auto) Absolute Lymphs (auto) Nucleated RBC % Sodium Potassium Chloride Carbon Dioxide Anion Gap BUN Creatinine Estim Creat Clear Calc Est GFR (MDRD) Af Amer Est GFR (MDRD) Non-Af BUN/Creatinine Ratio Glucose Lactic Acid Calcium Total Bilirubin AST ALT Alkaline Phosphatase Troponin I Total Protein Albumin Globulin Albumin/Globulin Ratio TSH 0.57 Urine Color Urine Clarity Urine pH Ur Specific [place] Urine Protein Urine Glucose (UA) Urine Ketones Urine Occult Blood Urine Nitrite Urine Bilirubin Urine Urobilinogen Ur Leukocyte Esterase Urine RBC Urine WBC Ur Squamous Epith Cells Urine Bacteria Hyaline Casts Urine Mucus S.aureus Protein A PCR POSITIVE H MRSA (PCR) POSITIVE H Medical Necessity - Tobacco Use Smoking Status: Former smoker Assessment/Plan All Active Problems (Last Reviewed 06/10/19 @ 16:23 by Kwaku Lancaster MD) Wound of right lower extremity (Acute) Cellulitis of right leg (Acute) Pressure ulcer, heel, right, unstageable (Acute) Chronic atrial fibrillation (Acute) 1. Chronic Atrial fibrillation with rapid ventricular response-hypotension with increased metoprolol, cardiology was consulted for further management. He is a patient of Dr. Lancaster. TSH normal. Mag pending. Continue eliquis. 2. Nonhealing lower extremity wounds-he does not appear to be acutely infected at this time. Wound cultures do show 2+ gram-positive cocci, 1+ gram-positive rods, rare gram-negative rods. Serology is positive for MRSA. Defer antibiotics. Status post left leg AKA. Patient has been unable to successfully care for his wounds at home, he has been incontinent of urine which is contaminated to his wounds. He is agreeable to [place] [facility] for further care as he is incapable of providing this to himself. Wound care nurse is following. 3. HTN - as above, running low with metoprolol 4. Malnutrition - dietary eval DVT ppx: Eliquis DC planning: SNF This patient was seen by Washington Proctor PA-C under the supervision of Doctor Bigg. <Rogelio Pride - Last Filed: 06/11/19 16:23> - Physical Exam Vital Signs Temp Pulse Resp BP Pulse Ox 99.5 F H 112 H 18 95/57 L 96 06/11/19 14:00 06/11/19 15:40 06/11/19 14:00 06/11/19 14:00 06/11/19 14:00 Oxygen Delivery Method Room Air Weight: 79.379 kg Body Mass Index (BMI) 23.1 Intake and Output for Last 24 Hours 06/09/19 06/10/19 06/11/19 23:59 23:59 23:59 Intake Total 1869 Balance 1869 Microbiology Past 72 Hours 06/11/19 09:15 Gram Stain - Final Wound - Leg, Right Laboratory Tests Past 24 Hrs 06/10/19 06/10/19 06/10/19 19:26 19:35 19:35 WBC 7.4 RBC 4.11 L Hgb 11.8 L Hct 37.8 L MCV 92.0 MCH 28.7 MCHC 31.2 L RDW Std Deviation 49.0 H RDW Coeff of Reinier 14.5 Plt Count 377 MPV 9.4 Immature Gran % (Auto) 0.400 Neut % (Auto) 69.5 Lymph % (Auto) 17.1 L [place] % (Auto) 10.5 H Eos % (Auto) 2.0 Baso % (Auto) 0.5 Absolute Neuts (auto) 5.2 Absolute Lymphs (auto) 1.27 Nucleated RBC % 0 Sodium Cancelled Potassium Cancelled Chloride Cancelled Carbon Dioxide Cancelled Anion Gap Cancelled BUN Cancelled Creatinine Cancelled Estim Creat Clear Calc Cancelled Est GFR (MDRD) Af Amer Cancelled Est GFR (MDRD) Non-Af Cancelled BUN/Creatinine Ratio Cancelled Glucose Cancelled Lactic Acid Calcium Cancelled Magnesium Total Bilirubin Cancelled AST Cancelled ALT Cancelled Alkaline Phosphatase Cancelled Troponin I Total Protein Cancelled Albumin Cancelled Globulin Cancelled Albumin/Globulin Ratio Cancelled TSH Urine Color Yellow Urine Clarity Clear Urine pH 5.0 Ur Specific [place] 1.020 Urine Protein Negative Urine Glucose (UA) Normal Urine Ketones 5 H Urine Occult Blood 25 H Urine Nitrite Negative Urine Bilirubin Negative Urine Urobilinogen 1 H Ur Leukocyte Esterase Negative Urine RBC 0-5 SEEN Urine WBC 0-5 SEEN Ur Squamous Epith Cells 0-5 SEEN Urine Bacteria 0 SEEN Hyaline Casts 0-5 SEEN Urine Mucus 1+ S.aureus Protein A PCR MRSA (PCR) 06/10/19 06/10/19 06/10/19 19:35 20:00 20:00 WBC RBC Hgb Hct MCV MCH MCHC RDW Std Deviation RDW Coeff of Reinier Plt Count MPV Immature Gran % (Auto) Neut % (Auto) Lymph % (Auto) [place] % (Auto) Eos % (Auto) Baso % (Auto) Absolute Neuts (auto) Absolute Lymphs (auto) Nucleated RBC % Sodium 144 Potassium 3.4 L Chloride 109 H Carbon Dioxide 31.0 Anion Gap 4 L BUN 18 Creatinine 0.91 Estim Creat Clear Calc 64.55 Est GFR (MDRD) Af Amer 104 Est GFR (MDRD) Non-Af 86 BUN/Creatinine Ratio 19.8 Glucose 96 Lactic Acid 2.0 Calcium 8.5 Magnesium Total Bilirubin 0.30 AST 20 ALT 17 Alkaline Phosphatase 71 Troponin I < 0.015 Total Protein 6.4 Albumin 2.4 L Globulin 4.0 Albumin/Globulin Ratio 0.6 L TSH Urine Color Urine Clarity Urine pH Ur Specific [place] Urine Protein Urine Glucose (UA) Urine Ketones Urine Occult Blood Urine Nitrite Urine Bilirubin Urine Urobilinogen Ur Leukocyte Esterase Urine RBC Urine WBC Ur Squamous Epith Cells Urine Bacteria Hyaline Casts Urine Mucus S.aureus Protein A PCR MRSA (PCR) 06/11/19 06/11/19 06/11/19 00:08 06:44 06:44 WBC 9.9 RBC 3.90 L Hgb 11.3 L Hct 35.3 L MCV 90.5 MCH 29.0 MCHC 32.0 RDW Std Deviation 47.8 H RDW Coeff of Reinier 14.5 Plt Count 385 MPV 9.7 Immature Gran % (Auto) 0.500 Neut % (Auto) 78.7 H Lymph % (Auto) 9.4 L [place] % (Auto) 10.3 H Eos % (Auto) 0.7 Baso % (Auto) 0.4 Absolute Neuts (auto) 7.8 H Absolute Lymphs (auto) 0.93 Nucleated RBC % 0 Sodium 143 Potassium 3.8 Chloride 111 H Carbon Dioxide 28.0 Anion Gap 4 L BUN 15 Creatinine 0.75 Estim Creat Clear Calc 69.46 Est GFR (MDRD) Af Amer 130 Est GFR (MDRD) Non-Af 108 BUN/Creatinine Ratio 20.1 H Glucose 96 Lactic Acid 1.3 Calcium 8.5 Magnesium Total Bilirubin 0.50 AST 20 ALT 16 Alkaline Phosphatase 64 Troponin I Total Protein 6.1 L Albumin 2.4 L Globulin 3.7 Albumin/Globulin Ratio 0.6 L TSH Urine Color Urine Clarity Urine pH Ur Specific [place] Urine Protein Urine Glucose (UA) Urine Ketones Urine Occult Blood Urine Nitrite Urine Bilirubin Urine Urobilinogen Ur Leukocyte Esterase Urine RBC Urine WBC Ur Squamous Epith Cells Urine Bacteria Hyaline Casts Urine Mucus S.aureus Protein A PCR MRSA (PCR) 06/11/19 06/11/19 06/11/19 06:44 06:44 09:15 WBC RBC Hgb Hct MCV MCH MCHC RDW Std Deviation RDW Coeff of Reinier Plt Count MPV Immature Gran % (Auto) Neut % (Auto) Lymph % (Auto) [place] % (Auto) Eos % (Auto) Baso % (Auto) Absolute Neuts (auto) Absolute Lymphs (auto) Nucleated RBC % Sodium Potassium Chloride Carbon Dioxide Anion Gap BUN Creatinine Estim Creat Clear Calc Est GFR (MDRD) Af Amer Est GFR (MDRD) Non-Af BUN/Creatinine Ratio Glucose Lactic Acid Calcium Magnesium 2.1 Total Bilirubin AST ALT Alkaline Phosphatase Troponin I Total Protein Albumin Globulin Albumin/Globulin Ratio TSH 0.57 Urine Color Urine Clarity Urine pH Ur Specific [place] Urine Protein Urine Glucose (UA) Urine Ketones Urine Occult Blood Urine Nitrite Urine Bilirubin Urine Urobilinogen Ur Leukocyte Esterase Urine RBC Urine WBC Ur Squamous Epith Cells Urine Bacteria Hyaline Casts Urine Mucus S.aureus Protein A PCR POSITIVE H MRSA (PCR) POSITIVE H Assessment/Plan This patient was seen in conjunction with Washington Proctor PA-C . I have independently interviewed and examined the patient and reviewed pertinent historical, laboratory, and other data. Please refer to Washington Proctor PA-C note for details of this patient's presentation, findings, and recommendations. I have reviewed Washington Proctor PA-C note and concur with documented findings. In brief, patient is a 71-year-old gentleman with multiple comorbidities including chronic A. fib, essential hypertension and nonhealing ulcer involving the right lower extremity who presented with recent redness and drainage involving the right lower extremity. Patient was also found to be in A. fib with RVR admitted to a monitored bed for further management Physical Examination: GENERAL: cooperative HEENT: Atraumatic; EYES; Anicteric, NECK; supple, normal thyroid, RESPIRATORY: Diminished to auscultation CARDIOVASCULAR: irregularly irregular, tachycardic GI: soft, non-tender, : No Renal angle tenderness; EXTREMITIES: Left AKA, and extensive nonhealing wound involving the right lower extremity with some discharge PSYCH; Normal affect Assessment: 1. A. fib with RVR in a patient with chronic A. fib 2. Suspected cellulitis surrounding an area of nonhealing wound involving the right lower extremity 3. Essential hypertension 4. Peripheral vascular disease 5. Chronic congestive heart failure with preserved ejection fraction, EF in March 2019 60% 6. 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 DVT prophylaxis patient is on Eliquis Recommendations: 1. I have discussed the results of my overview and impressions with the patient 2. Options for management were reviewed Code Visit Inpatient E&M: 37262 [facility] L3
[2019-06-11 14:31] LABS: Magnesium 2.1 mg/dL (1.6-2.6)
--- NOTE | 2019-06-11 16:37 | PCM.PN.CARD ---
Subjectve: Patient is asymptomatic from a cardiac standpoint. However his telemetry reveals A. fib with rapid ventricular response. He had a Holter as an outpatient recently that showed A. fib with an average heart rate of around 102 bpm. After that metoprolol was added. Objective: Vital Signs Temp Pulse Resp BP Pulse Ox 99.5 F H 112 H 18 95/57 L 96 06/11/19 14:00 06/11/19 15:40 06/11/19 14:00 06/11/19 14:00 06/11/19 14:00 Oxygen Delivery Method Room Air Weight: 175 lb 0.012 oz Body Mass Index (BMI) 23.1 Intake and Output for Last 24 Hours 06/09/19 06/10/19 06/11/19 23:59 23:59 23:59 Intake Total 1869 Balance 1869 General: Awake, Alert, Oriented x 3 HEENT: Atraumatic Oral: Moist Mucosa Neck: Supple Cardiovascular: Irregular Rhythm Extremities: No edema, - - Left above-knee amputation. Dressing in the right leg. Skin: No Rashes, Ulcers Psych/Mental Status: Appropriate 06/10/19 19:26: Urine Color Yellow, Urine Clarity Clear, Urine pH 5.0, Ur Specific [place] 1.020, Urine Protein Negative, Urine Glucose (UA) Normal, Urine Ketones 5 H, Urine Occult Blood 25 H, Urine Nitrite Negative, Urine Bilirubin Negative, Urine Urobilinogen 1 H, Ur Leukocyte Esterase Negative, Urine RBC 0-5 SEEN, Urine WBC 0-5 SEEN 06/10/19 19:35: WBC 7.4, RBC 4.11 L, Hgb 11.8 L, Hct 37.8 L, MCV 92.0, MCH 28.7, MCHC 31.2 L, Plt Count 377, MPV 9.4, Immature Gran % (Auto) 0.400, Neut % (Auto) 69.5, Lymph % (Auto) 17.1 L, [place] % (Auto) 10.5 H, Eos % (Auto) 2.0, Baso % (Auto) 0.5, Absolute Neuts (auto) 5.2, Nucleated RBC % 0 06/10/19 19:35: Sodium Cancelled, Potassium Cancelled, Chloride Cancelled, Carbon Dioxide Cancelled, Anion Gap Cancelled, BUN Cancelled, Creatinine Cancelled, Est GFR (MDRD) Af Amer Cancelled, Est GFR (MDRD) Non-Af Cancelled, BUN/Creatinine Ratio Cancelled, Glucose Cancelled, Calcium Cancelled, Total Bilirubin Cancelled 06/10/19 19:35: Lactic Acid 2.0 06/10/19 20:00: Sodium 144, Potassium 3.4 L, Chloride 109 H, Carbon Dioxide 31.0, Anion Gap 4 L, BUN 18, Creatinine 0.91, Est GFR (MDRD) Af Amer 104, Est GFR (MDRD) Non-Af 86, BUN/Creatinine Ratio 19.8, Glucose 96, Calcium 8.5, Total Bilirubin 0.30 06/10/19 20:00: Troponin I < 0.015 06/11/19 00:08: Lactic Acid 1.3 06/11/19 06:44: WBC 9.9, RBC 3.90 L, Hgb 11.3 L, Hct 35.3 L, MCV 90.5, MCH 29.0, MCHC 32.0, Plt Count 385, MPV 9.7, Immature Gran % (Auto) 0.500, Neut % (Auto) 78.7 H, Lymph % (Auto) 9.4 L, [place] % (Auto) 10.3 H, Eos % (Auto) 0.7, Baso % (Auto) 0.4, Absolute Neuts (auto) 7.8 H, Nucleated RBC % 0 06/11/19 06:44: Sodium 143, Potassium 3.8, Chloride 111 H, Carbon Dioxide 28.0, Anion Gap 4 L, BUN 15, Creatinine 0.75, Est GFR (MDRD) Af Amer 130, Est GFR (MDRD) Non-Af 108, BUN/Creatinine Ratio 20.1 H, Glucose 96, Calcium 8.5, Total Bilirubin 0.50 06/11/19 06:44: Magnesium 2.1 Rhythm: EKG: ECHO: Stress Test: Cardiac Cath: PCI: CT Surgery: Holter monitor: EPS: PPM: CXR: Chest CT Scan: Medical Necessity - Tobacco Use Smoking Status: Former smoker Assessment/Plan 1. Atrial fibrillation: I will go ahead and increase the metoprolol to see if this helps. If this is inadequate we may have to add a calcium channel sumanth or digoxin based on blood pressure. Patient had preserved EF on recent echo.
--- NOTE | 2019-06-11 17:07 | CHAPLAIN ---
Type of Pastoral Visit _x__ Initial Visit ___ Follow-up Visit ___ On-call Visit ___ General Patient Visit ___ Spiritual Assessment ___ Family Conference ___ Bereavement ___ Rapid Response ___ Code Blue ___ Other (describe below) Pastoral Care Referral From _x__ Patient ___ Family ___ Nurse ___ Physician ___ Block And Case Maker ___ Front Office Representative ___ Other (describe below) Sacrament/Intervention _x__ Active listening ___ Anointing ___ Confucianist ___ Bereavement ___ Communion ___ Yin exploration ___ _x__ Life review _x__ Prayer ___ Reconciliation ___ Sacrament of Sick _x__ Supportive presence ___ Wedding ___ Other (describe below) Pastoral Comments
--- NOTE | 2019-06-11 21:06 | PHA.PHARE_ITS ---
Consult Pharmacy has been consulted to manage selected antiobiotic: Vancomycin Type of Consult: New start Suspected Infection: Skin/Soft tissue Prior Doses of Antibiotics Received/Current Regimen: Vancomycin 1250mg IV x1 06/11/19 at 1741 Labs: Sodium 143 mmol/L (136-145) 06/11/19 06:44 Potassium 3.8 mmol/L (3.5-5.1) 06/11/19 06:44 Chloride 111 mmol/L (98-107) H 06/11/19 06:44 Carbon Dioxide 28.0 mmol/L (21.0-32.0) 06/11/19 06:44 Anion Gap 4 (5-15) L 06/11/19 06:44 BUN 15 mg/dL (7-18) 06/11/19 06:44 Creatinine 0.75 mg/dL (0.70-1.30) 06/11/19 06:44 Est GFR (MDRD) Af Amer 130 mL/min (>60) 06/11/19 06:44 Est GFR (MDRD) Non-Af 108 mL/min (>60) 06/11/19 06:44 BUN/Creatinine Ratio 20.1 RATIO (10-20) H 06/11/19 06:44 Glucose 96 mg/dL (74-106) 06/11/19 06:44 Microbiology: Microbiology 06/11/19 09:15 Wound - Leg, Right Gram Stain - Final Weight used for dosin kg Estimated Creatinine Clearance: 69 Goal Trough: 10-15 mcg/mL Pharmacy Plan for Drug Dosing: Goal trough for the pt is 10-15. Pt received a x1 dose of Vancomycin 1250mg on 06/11/19 at 1741. Pt has been the [facility] in the past and on Vancomycin in the past. He is right on the border to receive 750mg q12h or 1000mg q12h. Looking back at his past admissions, pt has received 1000mg q12h. Pt will be dosed at Vancomycin 1000mg IV q12h starting 06/12/19 at 0600. Trough will be drawn 06/13/19 at 0530 Pharmacy Service will continue to monitor and adjust dosing as required. Follow-Up Labs: Trough Vancomycin - 06/13/19 @ 0530
[2019-06-11] MEDS: Metoprolol Tartrate 50 MG Tablet PO (22:00)
[2019-06-12] VITALS (13 sets, daily range): BP systolic 93–102; BP diastolic 57–68; PULSE 62–121; RESP 16; TEMP 36.7–37.6; O2SAT 95–98
[2019-06-12] MEDS: Vancomycin IV 1,000 MG/200 ML BAG 200 MG IV ×2 (05:03→18:47)
[2019-06-12] MEDS: 0.9% NaCl Peripheral Flush Adult/Peds IV (06:17)
[2019-06-12 06:43] LABS: Absolute Lymphocyte Count 1.26 X10^3/uL (0.83-4.51); Absolute Neutrophil Count 6.9 X10^3/uL (2.0-7.7); Basophil# 0.02 X10^3/uL; Basophil% 0.2 % (0-1); Eosinophil# 0.08 X10^3/uL; Eosinophils% 0.9 % (0-5); Hematocrit 32.6 % (40-54); Hemoglobin 10.3 g/dL (13.0-16.5); Lymphocyte # 1.26 X10^3/ul (4.0); Lymphocyte % 14.4 % (19-41); Mean Corp Hgb Conc 31.6 g/dL (32-36); Mean Corpuscular Hgb 28.9 pg (27.0-32.0); Mean Corpuscular Volume 91.3 fL (80-94); Mean Platelet Vol. 9.9 fl (6.2-12.0); Monocyte# 0.44 X10^3/uL; NRBC Flagged by Analyzer 0 % (0-5); Neutrophil # 6.92 X10^3/uL (2.7-7.7); Platelet Count 315 K/mm3 (150-450); RBC Distribution Width CV 14.5 % (11.6-14.6); RBC Distribution Width SD 48.2 fl (35.1-43.9); Red Blood Count 3.57 M/mm3 (4.6-6.2); White Blood Count 8.8 K/mm3 (4.4-11.0)
[2019-06-12 06:50] LABS: Anion Gap 6 (5-15); BUN 15 mg/dL (7-18); BUN/Creat Ratio 16.5 RATIO (10-20); Calcium,Total 8.2 mg/dL (8.5-10.1); Chloride 112 mmol/L (98-107); Creatinine, Serum 0.91 mg/dL (0.70-1.30); EST Glomerular Filtration Rate 86 mL/min (>60); Est Glom Filt Rate - Afr Amer 104 mL/min (>60); Estimated Creatinine Clearance 76.33 ml/min; Glucose 106 mg/dL (74-106); Potassium 3.7 mmol/L (3.5-5.1); Sodium Level 143 mmol/L (136-145)
[2019-06-12] MEDS: Metoprolol Tartrate 50 MG Tablet PO ×2 (10:03→22:21)
[2019-06-12] MEDS: APIXABAN 5 MG TABLET PO ×2 (10:04→22:20)
[2019-06-12] MEDS: Collagenase 30gm Tube 1 APPLIC TOPICAL (10:04)
[2019-06-12] MEDS: Furosemide 20 MG Tablet PO (10:04)
[2019-06-12] MEDS: 0.9% Normal Saline 1,000 ML 75 ML IV ×2 (10:05→22:10)
--- NOTE | 2019-06-12 10:47 | PCM.HP.ID ---
Problem List (1) Wound of right lower extremity Status: Acute Reason for Consult: wound infection Consulted by: Dr. Pride History of Present Illness: The patient is a 78 year old M with chronic RLE wounds, recurrent infections, admitted 06/10 with falls and afib at home. Has been unable to care for himself at home. No fever. Some pain in legs. Came to ED, wound cx sent, now on vanc/zosyn. Full ROS performed and neg except as noted above. He is unable to provide much history. 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) 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) Venous insufficiency (Chronic) CKD (chronic kidney disease) stage 3, GFR 30-59 ml/min (Chronic) Anemia (Chronic) Delayed wound healing (Chronic) Nonischemic cardiomyopathy (Chronic) Chronic systolic CHF (congestive heart failure) (Chronic) Bilateral edema of lower extremity (Chronic) Open wounds involving multiple regions of lower extremity (Chronic) Neuropathic pain, leg, 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) Allergies/Adverse Reactions: Allergies codeine Adverse Reaction (Verified 06/10/19 16:31) Nausea Home Medications: Ambulatory Orders Medication Instructions Recorded Apixaban [Eliquis] 5 mg PO BID 05/24/17 Collagenase [Santyl] 1 applic TOPICAL DAILY #1 tube 04/20/19 metoprolol tartrate 25 mg tablet 25 mg PO BID #60 tab 05/24/19 furosemide 20 mg tablet 20 mg PO DAILY 06/10/19 traMADol [Ultram] 1 tab PO Q6H PRN PRN 06/10/19 - Social History SMOKING STATUS:: Former smoker Vital Signs Temp Pulse Resp BP Pulse Ox 98.6 F 103 H 16 96/66 97 06/12/19 06:20 06/12/19 10:03 06/12/19 06:20 06/12/19 06:20 06/12/19 06:20 Oxygen Delivery Method Room Air Weight: 79.379 kg Body Mass Index (BMI) 23.1 Microbiology Past 72 Hours 06/11/19 09:15 Gram Stain - Final Wound - Leg, Right Laboratory Tests Past 24 Hrs 06/11/19 06/11/19 06/11/19 06:44 06:44 09:15 WBC RBC Hgb Hct MCV MCH MCHC RDW Std Deviation RDW Coeff of Reinier Plt Count MPV Immature Gran % (Auto) Neut % (Auto) Lymph % (Auto) [place] % (Auto) Eos % (Auto) Baso % (Auto) Absolute Neuts (auto) Absolute Lymphs (auto) Nucleated RBC % Sodium Potassium Chloride Carbon Dioxide Anion Gap BUN Creatinine Estim Creat Clear Calc Est GFR (MDRD) Af Amer Est GFR (MDRD) Non-Af BUN/Creatinine Ratio Glucose Calcium Magnesium 2.1 TSH 0.57 S.aureus Protein A PCR POSITIVE H MRSA (PCR) POSITIVE H 06/12/19 06/12/19 06:05 06:05 WBC 8.8 RBC 3.57 L Hgb 10.3 L Hct 32.6 L MCV 91.3 MCH 28.9 MCHC 31.6 L RDW Std Deviation 48.2 H RDW Coeff of Reinier 14.5 Plt Count 315 MPV 9.9 Immature Gran % (Auto) 0.500 Neut % (Auto) 79.0 H Lymph % (Auto) 14.4 L [place] % (Auto) 5.0 Eos % (Auto) 0.9 Baso % (Auto) 0.2 Absolute Neuts (auto) 6.9 Absolute Lymphs (auto) 1.26 Nucleated RBC % 0 Sodium 143 Potassium 3.7 Chloride 112 H Carbon Dioxide 25.0 Anion Gap 6 BUN 15 Creatinine 0.91 Estim Creat Clear Calc 76.33 Est GFR (MDRD) Af Amer 104 Est GFR (MDRD) Non-Af 86 BUN/Creatinine Ratio 16.5 Glucose 106 Calcium 8.2 L Magnesium 2.0 TSH S.aureus Protein A PCR MRSA (PCR) - Other Studies Radiology: [] reviewed Other Studies: [] Route of nutrition/ use of supplements: [] Nutritional Intake: [] IV Site: [] Austin Catheter: [] - Physical Exam General: Cooperative, No apparent distress HEENT: Atraumatic, PERRLA, EOMI Neck: Supple, No Nodes Lungs: Clear to auscultation, Normal air movement Cardiovascular: Irregular Rate, Tachycardic Abdomen: Soft, Non Tender, Non-Distended Extremities: No edema, Diminished Peripheral Pulses Skin: Ulcer/ Wound - reviewed photos IV Site: Peripheral Musculoskeletal: No Tenderness to Palpation of Joints or Extremities Neurological: Cranial nerves II-XII grossly intact - Assessment/Plan Antibiotics: [] Assessment/Plan: [] RLE infected ulcer - has grown MRSA, morganella, serratia, alcaligenes in the past. On vanc/zosyn. No fever, normal wbc. Plan on course of pill abx once susceptibilities are back. Will follow, thank you.
--- NOTE | 2019-06-12 11:51 | CASEMGMT ---
SW spoke w/pt about LW/POA. Pt states he has a trust, and his nephews are also listed on the trust since his cannot help w/decisions at this time. SW asked specifically about POA form, pt indicates he has them, but may update them and have them notarized. Pt wants to do this on his own at this time. TIMO Norris
--- NOTE | 2019-06-12 13:08 | PN_ITS ---
<Washington Proctor - Last Filed: 06/12/19 13:08> Subjective: Resting comfortably in bed NAD. upright, partially on right side. No complaints. No palp. HR still running high teens. Waiting for placement. - Physical Exam General: Alert, Oriented x3, Cooperative HEENT: Atraumatic, PERRLA, EOMI, Normocephalic Neck: Supple, No JVD, Negative Carotid Bruits Lungs: Clear to auscultation, Normal air movement Cardiovascular: No murmurs, Irregular Rate, Tachycardic Abdomen: Bowel Sounds Present, Soft, Non Tender Extremities: No edema, Capillary Refill Less than 3 Seconds Skin: No rashes, No breakdown Musculoskeletal: No Tenderness to Palpation of Joints or Extremities, - - left aka Neurological: Cranial nerves II-XII grossly intact Psych/Mental Status: Normal Affect, Appropriate, Alert and oriented to time, place, person, mood and affect Vital Signs Temp Pulse Resp BP Pulse Ox 98.7 F 101 H 16 93/58 L 98 06/12/19 12:20 06/12/19 12:20 06/12/19 12:20 06/12/19 12:20 06/12/19 12:20 Oxygen Delivery Method Room Air Weight: 175 lb 0.012 oz Body Mass Index (BMI) 23.1 Intake and Output for Last 24 Hours 06/10/19 06/11/19 06/12/19 23:59 23:59 23:59 Intake Total 3998.75 / 3998.75 1552.5 / 1552.5 Output Total 150 / 150 Balance 3998.75 / 3998.75 1402.5 / 1402.5 Microbiology Past 72 Hours 06/11/19 09:15 Gram Stain - Final Wound - Leg, Right Wound Culture - Preliminary GNR 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 auctioneer automobile Gram negative rito Gram negative rito#2 Gram positive organism Laboratory Tests Past 24 Hrs 06/11/19 06/12/19 06/12/19 06:44 06:05 06:05 WBC 8.8 RBC 3.57 L Hgb 10.3 L Hct 32.6 L MCV 91.3 MCH 28.9 MCHC 31.6 L RDW Std Deviation 48.2 H RDW Coeff of Reinier 14.5 Plt Count 315 MPV 9.9 Immature Gran % (Auto) 0.500 Neut % (Auto) 79.0 H Lymph % (Auto) 14.4 L [place] % (Auto) 5.0 Eos % (Auto) 0.9 Baso % (Auto) 0.2 Absolute Neuts (auto) 6.9 Absolute Lymphs (auto) 1.26 Nucleated RBC % 0 Sodium 143 Potassium 3.7 Chloride 112 H Carbon Dioxide 25.0 Anion Gap 6 BUN 15 Creatinine 0.91 Estim Creat Clear Calc 76.33 Est GFR (MDRD) Af Amer 104 Est GFR (MDRD) Non-Af 86 BUN/Creatinine Ratio 16.5 Glucose 106 Calcium 8.2 L Magnesium 2.1 2.0 Medical Necessity - Tobacco Use Smoking Status: Former smoker Assessment/Plan All Active Problems (Last Reviewed 06/10/19 @ 16:23 by Kwaku Lancaster MD) Wound of right lower extremity (Acute) Cellulitis of right leg (Acute) Pressure ulcer, heel, right, unstageable (Acute) Chronic atrial fibrillation (Acute) 1. Chronic Atrial fibrillation with rapid ventricular response-metoprolol. Still mildly elevated. Cardiology following. TSH normal. Mag pending. Continue eliquis. 2. Nonhealing lower extremity wounds- ID consulted. Wound care consulted. On Vanc/Zosyn. Wounds + for MRSA. No fever/leukocytosis. 3. HTN - as above, running low with metoprolol 4. Malnutrition - dietary eval DVT ppx: Eliquis DC planning: SNF This patient was seen by Washington Proctor PA-C under the supervision of Doctor Bigg. <Rogelio Pride - Last Filed: 06/12/19 13:46> - Physical Exam Vital Signs Temp Pulse Resp BP Pulse Ox 98.7 F 101 H 16 93/58 L 98 06/12/19 12:20 06/12/19 12:20 06/12/19 12:20 06/12/19 12:20 06/12/19 12:20 Oxygen Delivery Method Room Air Weight: 79.379 kg Body Mass Index (BMI) 23.1 Intake and Output for Last 24 Hours 06/10/19 06/11/19 06/12/19 23:59 23:59 23:59 Intake Total 3998.75 / 3998.75 1552.5 / 1552.5 Output Total 150 / 150 Balance 3998.75 / 3998.75 1402.5 / 1402.5 Microbiology Past 72 Hours 06/11/19 09:15 Gram Stain - Final Wound - Leg, Right Wound Culture - Preliminary GNR lactose auctioneer automobile Gram negative rito Gram negative rito#2 Gram positive organism Laboratory Tests Past 24 Hrs 06/11/19 06/12/19 06/12/19 06:44 06:05 06:05 WBC 8.8 RBC 3.57 L Hgb 10.3 L Hct 32.6 L MCV 91.3 MCH 28.9 MCHC 31.6 L RDW Std Deviation 48.2 H RDW Coeff of Reinier 14.5 Plt Count 315 MPV 9.9 Immature Gran % (Auto) 0.500 Neut % (Auto) 79.0 H Lymph % (Auto) 14.4 L [place] % (Auto) 5.0 Eos % (Auto) 0.9 Baso % (Auto) 0.2 Absolute Neuts (auto) 6.9 Absolute Lymphs (auto) 1.26 Nucleated RBC % 0 Sodium 143 Potassium 3.7 Chloride 112 H Carbon Dioxide 25.0 Anion Gap 6 BUN 15 Creatinine 0.91 Estim Creat Clear Calc 76.33 Est GFR (MDRD) Af Amer 104 Est GFR (MDRD) Non-Af 86 BUN/Creatinine Ratio 16.5 Glucose 106 Calcium 8.2 L Magnesium 2.1 2.0 Assessment/Plan This patient was seen in conjunction with Washington Proctor PA-C . I have independently interviewed and examined the patient and reviewed pertinent historical, laboratory, and other data. Please refer to Washington Proctor PA-C note for details of this patient's presentation, findings, and recommendations. I have reviewed Washington Proctor PA-C note and concur with documented findings. In brief, patient is a 71-year-old gentleman with multiple comorbidities including chronic A. fib, essential hypertension and nonhealing ulcer involving the right lower extremity who presented with recent redness and drainage involving the right lower extremity. Patient was also found to be in A. fib with RVR admitted to a monitored bed for further management 06/12/2019; patient wound cultures obtained on admission so far positive for. GNR lactose auctioneer automobile, Gram negative rito, Gram negative rito#2 Gram positive organism. Patient was started on Zosyn and vancomycin the day prior with consultation placed to infectious disease patient has been seen by Dr. Moya his note and recommendations reviewed Physical Examination: GENERAL: cooperative HEENT: Atraumatic; EYES; Anicteric, NECK; supple, normal thyroid, RESPIRATORY: Diminished to auscultation CARDIOVASCULAR: irregularly irregular, tachycardic GI: soft, non-tender, : No Renal angle tenderness; EXTREMITIES: Left AKA, and extensive nonhealing wound involving the right lower extremity with some discharge PSYCH; Normal affect Assessment: 1. A. fib with RVR in a patient with chronic A. fib 2. Cellulitis surrounding an area of nonhealing wound involving the right lower extremity 3. Essential hypertension 4. Peripheral vascular disease 5. Chronic congestive heart failure with preserved ejection fraction, EF in March 2019 60% 6. 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 DVT prophylaxis patient is on Eliquis Recommendations: 1. I have discussed the results of my overview and impressions with the patient 2. Options for management were reviewed Microbiology 06/11/19 09:15 Wound - Leg, Right Gram Stain - Final 06/11/19 09:15 Wound - Leg, Right Wound Culture - Preliminary GNR lactose auctioneer automobile Gram negative rito Gram negative rito#2 Gram positive organism Code Visit Inpatient E&M: 59532 Subs Hosp L2
--- NOTE | 2019-06-12 14:23 | CASEMGMT ---
COURTNEY faxed initial referral to [facility] yesterday. COURTNEY then faxed PT/OT evaluations and today's progress notes to [facility]. Await response. Dionne ATKINS MSW
--- NOTE | 2019-06-12 16:02 | NURSING ---
Read and reviewed SN documentation
[2019-06-12] MEDS: Menthol/Lanolin/Calamine/Znox 113 GM Tube 1 APPLIC TOPICAL (22:20)
[2019-06-13 03:00] VITALS: PULSE 107
[2019-06-13 04:00] VITALS: BP 112/67; PULSE 96; RESP 16; TEMP 36.6; O2SAT 95
[2019-06-13] MEDS: Vancomycin IV 1,000 MG/200 ML BAG 200 MG IV (05:21)
[2019-06-13 05:40] LABS: Anion Gap 5 (5-15); BUN 14 mg/dL (7-18); BUN/Creat Ratio 16.2 RATIO (10-20); Calcium,Total 8.1 mg/dL (8.5-10.1); Chloride 113 mmol/L (98-107); Creatinine, Serum 0.87 mg/dL (0.70-1.30); EST Glomerular Filtration Rate 91 mL/min (>60); Est Glom Filt Rate - Afr Amer 110 mL/min (>60); Estimated Creatinine Clearance 79.84 ml/min; Glucose 91 mg/dL (74-106); Potassium 3.8 mmol/L (3.5-5.1); Sodium Level 144 mmol/L (136-145)
[2019-06-13 05:41] LABS: Vancomycin, Trough Level 16.7 ug/mL (5.0-15.0)
[2019-06-13 05:42] LABS: Absolute Lymphocyte Count 0.94 X10^3/uL (0.83-4.51); Absolute Neutrophil Count 5.1 X10^3/uL (2.0-7.7); Basophil# 0.03 X10^3/uL; Basophil% 0.4 % (0-1); Eosinophil# 0.23 X10^3/uL; Eosinophils% 3.3 % (0-5); Hematocrit 30.6 % (40-54); Hemoglobin 9.6 g/dL (13.0-16.5); Lymphocyte # 0.94 X10^3/ul (4.0); Lymphocyte % 13.3 % (19-41); Mean Corp Hgb Conc 31.4 g/dL (32-36); Mean Corpuscular Hgb 28.3 pg (27.0-32.0); Mean Corpuscular Volume 90.3 fL (80-94); Monocyte% 9.9 % (0-10); NRBC Flagged by Analyzer 0 % (0-5); Neutrophil # 5.13 X10^3/uL (2.7-7.7); Neutrophil % 72.8 % (47-70); Platelet Count 295 K/mm3 (150-450); RBC Distribution Width CV 14.6 % (11.6-14.6); RBC Distribution Width SD 48.2 fl (35.1-43.9); Red Blood Count 3.39 M/mm3 (4.6-6.2); White Blood Count 7.1 K/mm3 (4.4-11.0)
--- NOTE | 2019-06-13 05:50 | PCM.RX.CS ---
Consult Pharmacy has been consulted to manage selected antiobiotic: Vancomycin Type of Consult: Follow-up Suspected Infection: Skin/Soft tissue Labs: Sodium 144 mmol/L (136-145) 06/13/19 05:05 Potassium 3.8 mmol/L (3.5-5.1) 06/13/19 05:05 Chloride 113 mmol/L (98-107) H 06/13/19 05:05 Carbon Dioxide 26.0 mmol/L (21.0-32.0) 06/13/19 05:05 Anion Gap 5 (5-15) 06/13/19 05:05 BUN 14 mg/dL (7-18) 06/13/19 05:05 Creatinine 0.87 mg/dL (0.70-1.30) 06/13/19 05:05 Est GFR (MDRD) Af Amer 110 mL/min (>60) 06/13/19 05:05 Est GFR (MDRD) Non-Af 91 mL/min (>60) 06/13/19 05:05 BUN/Creatinine Ratio 16.2 RATIO (10-20) 06/13/19 05:05 Glucose 91 mg/dL (74-106) 06/13/19 05:05 Vancomycin Trough 16.7 ug/mL (5.0-15.0) H 06/13/19 05:05 Microbiology: Microbiology 06/11/19 09:15 Wound - Leg, Right Gram Stain - Final 06/11/19 09:15 Wound - Leg, Right Wound Culture - 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 TROUGH 16.7 SCr DECREASED TO 0.87 NO CHANGES REDRAW TROUGH 06/14 @ 1730 Follow-Up Labs: Trough Vancomycin Labs to be done on [date and time ordered]: 06/14 @ 1738
--- NOTE | 2019-06-13 07:32 | CASEMGMT ---
Received call from Martha at [facility] and they can accept patient. Dionne ATKINS AIR ANALYSIS TECHNICIAN
[2019-06-13 07:52] VITALS: PULSE 114
[2019-06-13 09:00] VITALS: BP 112/79; PULSE 128; RESP 18; TEMP 35.9; O2SAT 95
[2019-06-13 09:05] VITALS: PULSE 128
[2019-06-13] MEDS: Metoprolol Tartrate 50 MG Tablet PO (09:05)
[2019-06-13] MEDS: Furosemide 20 MG Tablet PO (09:05)
[2019-06-13] MEDS: APIXABAN 5 MG TABLET PO (09:06)
[2019-06-13] MEDS: Menthol/Lanolin/Calamine/Znox 113 GM Tube 1 APPLIC TOPICAL (09:09)
[2019-06-13] MEDS: Collagenase 30gm Tube 1 APPLIC TOPICAL (09:10)
--- NOTE | 2019-06-13 10:12 | PN.ID_ITS ---
Subjective: Feeling ok, no fever - Physical Exam General: Alert, Cooperative, No apparent distress Lungs: Clear to auscultation, Normal air movement Cardiovascular: No murmurs Abdomen: Soft, Non Tender, Non-Distended Skin: Ulcer/ Wound - bandaged Vital Signs Temp Pulse Resp BP Pulse Ox 96.6 F L 128 H 18 112/79 95 06/13/19 09:00 06/13/19 09:05 06/13/19 09:00 06/13/19 09:00 06/13/19 09:00 Oxygen Delivery Method Room Air Weight: 79.379 kg Body Mass Index (BMI) 23.1 Intake and Output for Last 24 Hours 06/11/19 06/12/19 06/13/19 23:59 23:59 23:59 Intake Total 3998.75 / 3998.75 3188.75 / 3428.75 730 / 730 Output Total 150 / 150 200 / 200 Balance 3998.75 / 3998.75 3038.75 / 3278.75 530 / 530 Microbiology Past 72 Hours 06/11/19 09:15 Gram Stain - Final Wound - Leg, Right Wound Culture - Preliminary 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 Gram negative rito Staphylococcus aureus Gram positive organism Laboratory Tests Past 24 Hrs 06/13/19 06/13/19 06/13/19 05:05 05:05 05:05 WBC 7.1 RBC 3.39 L Hgb 9.6 L Hct 30.6 L MCV 90.3 MCH 28.3 MCHC 31.4 L RDW Std Deviation 48.2 H RDW Coeff of Reinier 14.6 Plt Count 295 MPV 10.0 Immature Gran % (Auto) 0.300 Neut % (Auto) 72.8 H Lymph % (Auto) 13.3 L [place] % (Auto) 9.9 Eos % (Auto) 3.3 Baso % (Auto) 0.4 Absolute Neuts (auto) 5.1 Absolute Lymphs (auto) 0.94 Nucleated RBC % 0 Sodium 144 Potassium 3.8 Chloride 113 H Carbon Dioxide 26.0 Anion Gap 5 BUN 14 Creatinine 0.87 Estim Creat Clear Calc 79.84 Est GFR (MDRD) Af Amer 110 Est GFR (MDRD) Non-Af 91 BUN/Creatinine Ratio 16.2 Glucose 91 Calcium 8.1 L Vancomycin Trough 16.7 H Medical Necessity - Tobacco Use Smoking Status: Former smoker Route of nutrition/ use of supplements: [] Nutritional Intake: [] IV Site: [] Austin Catheter: [] - Assessment/Plan Antibiotics: [] Assessment/Plan: [] RLE infected ulcer - has grown MRSA, morganella, serratia, alcaligenes in the past. On vanc/zosyn. No fever, normal wbc. Ok for d/c to ECF on 5 more days of bactrim and cefdinir. Will follow final cx results. Will follow, d/w primary team
--- NOTE | 2019-06-13 10:28 | CASEMGMT ---
Message left with Cate at [facility] to notify her that the plan is for pt to go to [facility] today. Mallory REINA CM
--- NOTE | 2019-06-13 11:08 | PCM.EXTCARCO ---
- Diet 06/10/19 23:37 Diet: Regular Diet Food consistency:: Regular Liquid Consistency:: Regular/Thin - Routine Orders/Code Status Enema Type: Fleetz Enema Frequency: Daily PRN Suppository Type: Dulcolax 10mg Suppository Frequency: Daily PRN Routine Lab Work: CBC, BMP, - - Q Week - Wound(s) RIGHT LEG Wound Type: Stasis Ulcer Dressing Change: santyl with Adaptic Scrotum Wound Type: moisture related open area right lateral foot Wound Type: Pressure Injury Dressing Change: Dry Sterile Dressing right heel Wound Type: Pressure Injury Dressing Change: Dry Sterile Dressing right posterior thigh Wound Type: cluster of moisture related open area - Suggestions for Active Care Change Position every (hours): 2 Times a day to sit in chair: 3 - Therapies Extremity Affected:: Left Lower - L AKA Physical Therapy: Eval and Treat Occupational Therapy: Eval and Treat - Problem/Diagnosis (1) Failure to thrive Status: Chronic Current Visit: No (2) Knee contracture Status: Chronic Current Visit: No (3) Ulcer of right foot with fat layer exposed Status: Chronic Current Visit: No (4) Malnutrition Status: Chronic Current Visit: No (5) Cellulitis of right leg Status: Acute Current Visit: Yes (6) Contracture of knee joint Status: Chronic Current Visit: No (7) Pressure ulcer, heel, right, unstageable Status: Chronic Current Visit: No (8) Alcohol abuse Status: Chronic Current Visit: No (9) Essential hypertension Status: Chronic Current Visit: No (10) Ulcer of right lower extremity with fat layer exposed Status: Chronic Current Visit: No (11) Venous insufficiency Status: Chronic Current Visit: No (12) CKD (chronic kidney disease) stage 3, GFR 30-59 ml/min Status: Chronic Current Visit: No (13) Anemia Status: Chronic Current Visit: No (14) Delayed wound healing Status: Chronic Current Visit: No (15) Nonischemic cardiomyopathy Status: Chronic Current Visit: No (16) Chronic systolic CHF (congestive heart failure) Status: Chronic Current Visit: No (17) Chronic atrial fibrillation Status: Acute Comment: with RVR Current Visit: Yes (18) Neuropathic pain, leg, bilateral Status: Chronic Current Visit: No (19) PAOD (peripheral arterial occlusive disease) Status: Chronic Current Visit: No - Allergies/Procedures Done in Hospital Allergies/Adverse Reactions: Allergies codeine Adverse Reaction (Verified 06/10/19 16:31) Nausea Procedures: None - Type of Care/Length of Stay Estimated LOS: Convalescent Care Less Than 30 days Type of Care Needed: Skilled Rehab Potential: Fair Prognosis: Fair - Additional Orders/Day of Discharge Additional Orders: Cleanse wounds to right foot, heel and leg, posterior thigh and scrotum daily with soap and water. Dry dressing to right lateral foot and heel. Santyl to right ray wound daily and cover with dry dressing. Wrap leg and heel with Kerlix. Calmoseptine to scrotum as needed. H&P will serve as current which was dated: 06/10/19 Day of Discharge: 06/13/19 - Dietary and Speech Recommendations Dietitian Recommendations/Changes: Recommend Napoleon packet at meals (B,L,D). - Follow Up Care Primary Care Physician: Phoebe Daniels MD [Primary Care Provider] - Please follow up with your Primary Care Physician in: 1 week Please Follow Up With: Linda Cleary DPM When: 1 week at wound center Please Follow Up With: Clinic,Wound When: 1 week Please Follow Up With: Kwaku Lancaster MD When: As scheduled 09/04/2019.
--- NOTE | 2019-06-13 11:54 | DS.PCM_ITS ---
<Ana Smith - Last Filed: 06/13/19 13:37> Discharge Date and Diagnosis Date of Admission: 06/10/19 Date of Discharge: 06/13/19 - Primary Discharge Diagnosis Active and Suspected Problems (Last Reviewed 06/10/19 @ 16:23 by Kwaku Lancaster MD) 1. Atrial fibrillation with RVR on chronic atrial fibrillation 2. 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 Chronic diastolic CHF 4. Hypertension 5. Chronic anemia 6. Status post left [id number] amputation 7. Severe protein calorie malnutrition 8. Peripheral vascular disease - Secondary Discharge Diagnosis Chronic Problems (Last Reviewed 06/10/19 @ 16:23 by Kwaku Lancsater MD) Failure to thrive (Chronic) Knee contracture (Chronic) Ulcer of right foot with fat layer exposed (Chronic) Malnutrition (Chronic) Contracture of knee joint (Chronic) Pressure ulcer, heel, right, unstageable (Chronic) Alcohol abuse (Chronic) Essential hypertension (Chronic) 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) Venous insufficiency (Chronic) CKD (chronic kidney disease) stage 3, GFR 30-59 ml/min (Chronic) Anemia (Chronic) Delayed wound healing (Chronic) Nonischemic cardiomyopathy (Chronic) Chronic systolic CHF (congestive heart failure) (Chronic) Neuropathic pain, leg, 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 Lancaster- Cardiology Dr. Moya- ID Operations: None Procedures: None Summary of Care Provided: The patient is a 78 year old M admitted 06/10/2019 due to rapid heart rate, un able to care for self and chronic wounds. 1. Atrial fibrillation with RVR on chronic atrial fibrillation-Home metoprolol regimen increased to 75 mg twice daily. Continue Eliquis regimen. Heart rate better controlled. Continue outpatient follow-up with cardiology as scheduled. 2. Recurrent right lower extremity cellulitis with nonhealing right lower extremity wounds-infectious disease consulted for right lower extremity infected ulcer. Wound culture with multiple organisms including gram-negative rito, staph aureus and gram-positive organism, final sensitivities pending. Plan to discharge on Bactrim and cefdinir for 5 days at discharge. Follow with wound center in 1 week. Continue daily dressing changes per discharge orders. 3. Chronic diastolic CHF-continue home Lasix regimen. Echocardiogram March 2018 with EF 60%, moderate tricuspid valve insufficiency, mild to moderate mitral valve insufficiency. Brandon wrap right lower extremity. 4. Hypertension-stable, continue home metoprolol regimen. 5. Chronic anemia- at baseline. 6. Peripheral vascular disease General: Alert, Oriented x3, Cooperative HEENT: Atraumatic, PERRLA, EOMI, Normocephalic Neck: Supple, No JVD, Negative Carotid Bruits Lungs: Clear to auscultation, Normal air movement Cardiovascular: Atrial fibrillation, rate controlled. Abdomen: Bowel Sounds Present, Soft, Non Tender, Non-Distended Extremities: No clubbing, No cyanosis, Capillary Refill Less than 3 Seconds, No edema Skin: No rashes, No breakdown, Chronic nonhealing right lower extremity wounds, dressing intact. Musculoskeletal: No Tenderness to Palpation of Joints or Extremities, Status post left [id number]-[id number] amputation Neurological: Cranial nerves II-XII grossly intact, Neuro grossly intact Psych/Mental Status: Normal Affect, Appropriate Patient seen and examined prior to discharge. Physical assessment as noted above. Patient is stable for discharge with follow up recommendations as noted above. This patient was seen by ELLY Jc under the supervision of Dr. Pride. - Physical Exam Vital Signs Temp Pulse Resp BP Pulse Ox 96.6 F L 128 H 18 112/79 95 06/13/19 09:00 06/13/19 09:05 06/13/19 09:00 06/13/19 09:00 06/13/19 09:00 Oxygen Delivery Method Room Air Weight: 175 lb 0.012 oz Body Mass Index (BMI) 23.1 Intake and Output for Last 24 Hours 06/11/19 06/12/19 06/13/19 23:59 23:59 23:59 Intake Total 3998.75 / 3998.75 3188.75 / 3428.75 1780 / 1780 Output Total 150 / 150 200 / 200 Balance 3998.75 / 3998.75 3038.75 / 3278.75 1580 / 1580 Microbiology Past 72 Hours 06/11/19 09:15 Gram Stain - Final Wound - Leg, Right Wound Culture - Preliminary GNR lactose business associate Gram negative rito Staphylococcus aureus Gram positive organism Laboratory Tests Past 24 Hrs 06/13/19 06/13/19 06/13/19 05:05 05:05 05:05 WBC 7.1 RBC 3.39 L Hgb 9.6 L Hct 30.6 L MCV 90.3 MCH 28.3 MCHC 31.4 L RDW Std Deviation 48.2 H RDW Coeff of Reinier 14.6 Plt Count 295 MPV 10.0 Immature Gran % (Auto) 0.300 Neut % (Auto) 72.8 H Lymph % (Auto) 13.3 L [place]ock % (Auto) 9.9 Eos % (Auto) 3.3 Baso % (Auto) 0.4 Absolute Neuts (auto) 5.1 Absolute Lymphs (auto) 0.94 Nucleated RBC % 0 Sodium 144 Potassium 3.8 Chloride 113 H Carbon Dioxide 26.0 Anion Gap 5 BUN 14 Creatinine 0.87 Estim Creat Clear Calc 79.84 Est GFR (MDRD) Af Amer 110 Est GFR (MDRD) Non-Af 91 BUN/Creatinine Ratio 16.2 Glucose 91 Calcium 8.1 L Vancomycin Trough 16.7 H Home Medications: Medications to take at Discharge Apixaban [Eliquis] 5 mg PO BID 05/24/17 Collagenase [Santyl] 1 applic TOPICAL DAILY #1 tube 04/20/19 furosemide 20 mg tablet 20 mg PO DAILY 06/10/19 traMADol [Ultram] 1 tab PO Q6H PRN PRN 06/10/19 Cefdinir [Omnicef [equiv]] 300 mg PO Q12 5 Days #10 cap 06/13/19 Metoprolol Tartrate [Lopressor (beta sumanth)] 75 mg PO BID tab 06/13/19 Smz/Tmp Ds [Bactrim Ds] 1 tab PO BID 5 Days #10 tab 06/13/19 Primary Care Physician: Phoebe Daniels MD [Primary Care Provider] - Please follow up with your Primary Care Physician in: 1 week Please Follow Up With: Gavino Simmons CNP Please Follow Up With: Linda Cleary DPM When: 1 week at wound center Please Follow Up With: Clinic,Wound When: 1 week Please Follow Up With: Kwaku Lancaster MD When: As scheduled 09/04/2019. Disposition: Alf facility Minutes spent on discharge:: 35 Patient Condition:: Stable Medical Necessity - Tobacco Use Smoking Status: Former smoker Meaningful Use Info Meaningful Use Diagnoses (Choose all that apply): None applicable <Rogelio Pride - Last Filed: 06/13/19 13:49> Discharge Date and Diagnosis - Secondary Discharge Diagnosis Chronic Problems (Last Updated 06/13/19 @ 11:55 by ELLY Jc) Failure to thrive (Chronic) Knee contracture (Chronic) Ulcer of right foot with fat layer exposed (Chronic) Malnutrition (Chronic) Contracture of knee joint (Chronic) Pressure ulcer, heel, right, unstageable (Chronic) Alcohol abuse (Chronic) Essential hypertension (Chronic) 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) Venous insufficiency (Chronic) CKD (chronic kidney disease) stage 3, GFR 30-59 ml/min (Chronic) Anemia (Chronic) Delayed wound healing (Chronic) Nonischemic cardiomyopathy (Chronic) Chronic systolic CHF (congestive heart failure) (Chronic) Neuropathic pain, leg, 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 I have independently interviewed and examined the patient and reviewed pertinent historical, laboratory, and other data. Please refer to ELLY Jc note for details of this patient's presentation, findings, and recommendations. I have reviewed ELLY Jc note and concur with documented findings. In brief, patient is a 71-year-old gentleman with multiple comorbidities including chronic A. fib, essential hypertension and nonhealing ulcer involving the right lower extremity who presented with recent redness and drainage involving the right lower extremity. Patient was also found to be in A. fib with RVR admitted to a monitored bed for further management 06/12/2019; patient wound cultures obtained on admission so far positive for. GNR lactose business associate, Gram negative rito, Gram negative rito#2 Gram positive organism. Patient was started on Zosyn and vancomycin the day prior with consultation placed to infectious disease patient has been seen by Dr. Moya his note and recommendations reviewed Assessment: 1. A. fib with RVR in a patient with chronic A. fib 2. Cellulitis surrounding an area of nonhealing wound involving the right lower extremity 3. Essential hypertension 4. Peripheral vascular disease 5. Chronic congestive heart failure with preserved ejection fraction, EF in March 2019 60% 6. 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 DVT prophylaxis patient is on [facility] course: As documented above - Physical Exam Vital Signs Temp Pulse Resp BP Pulse Ox 96.6 F L 92 18 112/79 95 06/13/19 09:00 06/13/19 12:00 06/13/19 09:00 06/13/19 09:00 06/13/19 09:00 Oxygen Delivery Method Room Air Weight: 79.379 kg Body Mass Index (BMI) 23.1 Intake and Output for Last 24 Hours 06/11/19 06/12/19 06/13/19 23:59 23:59 23:59 Intake Total 3998.75 / 3998.75 3188.75 / 3428.75 2260 / 2260 Output Total 150 / 150 650 / 650 Balance 3998.75 / 3998.75 3038.75 / 3278.75 1610 / 1610 Microbiology Past 72 Hours 06/11/19 09:15 Gram Stain - Final Wound - Leg, Right Wound Culture - Preliminary GNR lactose business associate Gram negative rito Staphylococcus aureus Gram positive rito Laboratory Tests Past 24 Hrs 06/13/19 06/13/19 06/13/19 05:05 05:05 05:05 WBC 7.1 RBC 3.39 L Hgb 9.6 L Hct 30.6 L MCV 90.3 MCH 28.3 MCHC 31.4 L RDW Std Deviation 48.2 H RDW Coeff of Reinier 14.6 Plt Count 295 MPV 10.0 Immature Gran % (Auto) 0.300 Neut % (Auto) 72.8 H Lymph % (Auto) 13.3 L [place] % (Auto) 9.9 Eos % (Auto) 3.3 Baso % (Auto) 0.4 Absolute Neuts (auto) 5.1 Absolute Lymphs (auto) 0.94 Nucleated RBC % 0 Sodium 144 Potassium 3.8 Chloride 113 H Carbon Dioxide 26.0 Anion Gap 5 BUN 14 Creatinine 0.87 Estim Creat Clear Calc 79.84 Est GFR (MDRD) Af Amer 110 Est GFR (MDRD) Non-Af 91 BUN/Creatinine Ratio 16.2 Glucose 91 Calcium 8.1 L Vancomycin Trough 16.7 H Code Visit Inpatient E&M: 00990 Disch Hosp
--- NOTE | 2019-06-13 11:54 | PN.CARD_ITS ---
Subjectve: Patient denies any cardiac complaints. No chest pain, palpitations. Objective: Vital Signs Temp Pulse Resp BP Pulse Ox 96.6 F L 128 H 18 112/79 95 06/13/19 09:00 06/13/19 09:05 06/13/19 09:00 06/13/19 09:00 06/13/19 09:00 Oxygen Delivery Method Room Air Weight: 175 lb 0.012 oz Body Mass Index (BMI) 23.1 Intake and Output for Last 24 Hours 06/11/19 06/12/19 06/13/19 23:59 23:59 23:59 Intake Total 3998.75 / 3998.75 3188.75 / 3428.75 1780 / 1780 Output Total 150 / 150 200 / 200 Balance 3998.75 / 3998.75 3038.75 / 3278.75 1580 / 1580 General: Awake, Alert, Oriented x 3 HEENT: Atraumatic Oral: Moist Mucosa Neck: Supple Cardiovascular: Irregular Rhythm Psych/Mental Status: Appropriate 06/13/19 05:05: WBC 7.1, RBC 3.39 L, Hgb 9.6 L, Hct 30.6 L, MCV 90.3, MCH 28.3, MCHC 31.4 L, Plt Count 295, MPV 10.0, Immature Gran % (Auto) 0.300, Neut % (Auto) 72.8 H, Lymph % (Auto) 13.3 L, [place] % (Auto) 9.9, Eos % (Auto) 3.3, Baso % (Auto) 0.4, Absolute Neuts (auto) 5.1, Nucleated RBC % 0 06/13/19 05:05: Sodium 144, Potassium 3.8, Chloride 113 H, Carbon Dioxide 26.0, Anion Gap 5, BUN 14, Creatinine 0.87, Est GFR (MDRD) Af Amer 110, Est GFR (MDRD) Non-Af 91, BUN/Creatinine Ratio 16.2, Glucose 91, Calcium 8.1 L Rhythm: EKG: ECHO: Stress Test: Cardiac Cath: PCI: CT Surgery: Holter monitor: EPS: PPM: CXR: Chest CT Scan: Medical Necessity - Tobacco Use Smoking Status: Former smoker Assessment/Plan 1. Atrial fibrillation: Heart rate is still elevated. I would recommend increasing the metoprolol to 75 mg p.o. twice daily. He is okay to be discharged from a cardiac standpoint to an extended care facility.
--- NOTE | 2019-06-13 11:54 | CASEMGMT ---
Patient is ready for discharge to [facility]. COURTNEY called [facility] and arranged for patient to get picked up at 2p via cot. COURTNEY faxed orders to [facility]. COURTNEY completed 7000 on HENS. COURTNEY notified patient, RN, charge rn, admin secretary, and Martha at [facility]. COURTNEY asked patient if he would like to notify his and he said she is here getting him coffee. Plan: d/c to [facility] under skilled level of care on a convalescent stay. [facility] transport him via cot. Dionne ATKINS SUPERVISOR TRAVEL TRAILER
[2019-06-13 12:00] VITALS: PULSE 92
[2019-06-13] MEDS: Smz/Tmp Ds Tablet 1 TABLET PO (12:24)
--- NOTE | 2019-06-13 13:50 | NURSING ---
Report called to Cate at [facility]. [phone]
== END 2019-06-13 14:27 | disposition skilled nursing facility (03) | DRG 308 ==
LOC: ED 19:25 → PCU 06-11 00:07
PROVIDERS: Physician Assistant; Admitting Provider Family Medicine; Emergency Provider Emergency Medicine; Family Provider Internal Medicine; PCP Internal Medicine; Referring Provider Family Medicine; Visit Provider Internal Medicine
DX: I48.2 Chronic atrial fibrillation (principal); E43 Unspecified severe protein-calorie malnutrition; L03.115 Cellulitis of right lower limb; I13.0 Hypertensive heart and chronic kidney disease with heart failure and stage 1 through stage 4 chronic kidney disease, or unspecified chronic kidney disease; I50.42 Chronic combined systolic (congestive) and diastolic (congestive) heart failure; M86.662 Other chronic osteomyelitis, left tibia and fibula; L97.922 Non-pressure chronic ulcer of unspecified part of left lower leg with fat layer exposed; Z68.1 Body mass index [BMI] 19.9 or less, adult; N18.3 Chronic kidney disease, stage 3 (moderate); D63.1 Anemia in chronic kidney disease; Z89.612 Acquired absence of left leg above knee; I73.9 Peripheral vascular disease, unspecified; R62.7 Adult failure to thrive; N50.89 Other specified disorders of the male genital organs; I89.0 Lymphedema, not elsewhere classified; Z87.891 Personal history of nicotine dependence; M24.569 Contracture, unspecified knee; F10.10 Alcohol abuse, uncomplicated; L97.512 Non-pressure chronic ulcer of other part of right foot with fat layer exposed; I87.2 Venous insufficiency (chronic) (peripheral); I42.9 Cardiomyopathy, unspecified; Z79.899 Other long term (current) drug therapy; Z79.02 Long term (current) use of antithrombotics/antiplatelets; B95.62 Methicillin resistant Staphylococcus aureus infection as the cause of diseases classified elsewhere
CPT/HCPCS: 36415; 80048; 80053; 80202; 81001; 83605; 83735; 84443; 84484; 85025; 87070; 87077; 87186; 87205; 87640; 93005; 97162; 97166; 97802; 99285; J7030; J7050; A4216

== ENCOUNTER 2019-07-17 10:51 | Outpatient (RCR) | payer MEDICARE, OTHER, SELFPAY ==
[2019-06-10 23:42] VITALS: BMI 23.1
[2019-06-18 00:20] VITALS: BP 118/73; PULSE 120; RESP 18; TEMP 37
[2019-07-17 10:56] VITALS: BP 103/67; PULSE 123; RESP 18; TEMP 37.6; BMI 23.1
--- NOTE | 2019-07-17 13:01 | PN.PCM_ITS ---
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: Chronic Code(s): L97.512 - Non-pressure chronic ulcer of other part of right foot with fat layer exposed (2) Malnutrition Status: Chronic Code(s): E46 - Unspecified protein-calorie malnutrition (3) Contracture of knee joint Status: Chronic Qualifiers: Code(s): M24.569 - Contracture, unspecified knee (4) Ulcer of right lower extremity with fat layer exposed Status: Chronic Code(s): L97.912 - Non-pressure chronic ulcer of unspecified part of right lower leg with fat layer exposed (5) Venous insufficiency Status: Chronic Code(s): I87.2 - Venous insufficiency (chronic) (peripheral) (6) CKD (chronic kidney disease) stage 3, GFR 30-59 ml/min Status: Chronic Code(s): N18.3 - Chronic kidney disease, stage 3 (moderate) (7) Delayed wound healing Status: Chronic Code(s): T14.8XXD - Other injury of unspecified body region, subsequent encounter (8) Other specified peripheral vascular diseases Status: Chronic Code(s): I73.89 - Other specified peripheral vascular diseases Type of Wound Date of Service: 07/17/19 Chief Complaint: Right leg and foot ulcers History of Wound: 78-year-old male returns to the wound healing center for right leg ulcers, heel ulcer, a right foot ulcer. He has a home nurse visiting who helps with Santyl dressings. He has a home health nurse and also privately hired nurse to help with this. He has completed course of antibiotics. It is noted he recently admitted to the hospital about 2 weeks ago, was seen by the medicine team and infectious disease, and further managed by [facility]. He has subsequently returned home. He is continue to follow-up with orthopedics in regards to his knee contracture and understands he is at risk for limb loss. He is seeing a physical therapist. He has established peripheral vascular disease and is under the care of Dr. Maloney. He relates his next follow-up for an interventional angiogram procedure is in about 1 month. He denies current fever, chill, nausea, vomiting. His pain is controlled today. He presents in a wheelchair. He tries to apply the Brandon wrap intermittently as tolerated. Progress of Wound: Stable right leg and foot ulcers - Physical Exam Vital Signs Temp Pulse Resp BP 99.6 F H 123 H 18 103/67 07/17/19 10:56 07/17/19 10:56 07/17/19 10:56 07/17/19 10:56 General: Alert, Oriented x3, Cooperative, No apparent distress Extremities: Capillary Refill Less than 3 Seconds - Right, No Calf Tenderness - Negative Travon and Araya sign right, Diminished Peripheral Pulses, Edema - Mild to moderate right lower extremity, - - Left lower extremity amputation noted. Right nonreducible knee contracture noted Skin: Ulcer/ Wound - No purulence, erythema, streaking, nena infection, maceration foot and leg ulcers. The right heel ulcer does have an odor and the other ulceration. The right heel ulcer also has devitalized fibrous tissue, extra slough, and some nonadherent eschar. There is no exposed tissue or probe to bone., - - His skin is hairless and atrophic. Wound Measurements and Assessment WC - Nurse 1 - General Ulcer Measurement Start: 07/17/19 10:56 Freq: Status: Active Protocol: Activity Type Activity Date Activity User E-Sign Co-Sign Detail Recorded Client Recorded Date Recorded By Document 07/17/19 10:56 MW [id number] 07/17/19 11:11 MW 07/17/19 10:56 Wound Center Nurse 1 [Ulcer Assessment] #18- R PLANTAR FOOT -Combined with other wound No -Current Size (cm) - Length 2.5 -Current Size (cm) - Width 2.5 -Current Size (cm) - Depth 0.1 -Total Square Cm 6.25 -Date of Last Picture (Recall this 07/17/19 field) -Photo Taken Yes -Epithelialization None Present -Tunneling No -Undermining/Tunneling No -Circular Undermining No -Exudate Amt Small -Exudate Type Serosanguineous -Wound Margin Distinct, Outline Attached -Granulation Amt Small (1-33%) -Granulation Quality Red -Slough/Fibrin Yes -Necrosis Amt Large (67-100%) -Necrotic Tissue Type Adherent Slough -Texture (Cyndy-wound Skin Appearance) Assessed, Scarring -Moisture (Cyndy-wound Skin Appearance Assessed,Dry/ ) Scaly -Color (Cyndy-wound Skin Appearance) Assessed -Temperature (Cyndy-wound Skin No Abnormality Appearance) (Pt Warm) -Tenderness on Palpation (Cyndy-wound No Skin Appearance) -Ulcer Cleansing SOAP AND WATER -Foul Odor after Cleansing No -Anesthetic Used 4% Lidocaine Solution #17- R POST THIGH CLUSTER -Combined with other wound No -Current Size (cm) - Length 2.5 -Current Size (cm) - Width 5.6 -Current Size (cm) - Depth 0.1 -Total Square Cm 14.00 -Date of Last Picture (Recall this 07/17/19 field) -Photo Taken Yes -Epithelialization None Present -Tunneling No -Undermining/Tunneling No -Circular Undermining No -Exudate Amt Small -Exudate Type Serosanguineous -Wound Margin Flat & Intact -Granulation Amt Medium (34-66%) -Granulation Quality Red -Slough/Fibrin Yes -Necrosis Amt Medium (34-66%) -Necrotic Tissue Type Adherent Slough -Texture (Cyndy-wound Skin Appearance) Assessed, Scarring -Moisture (Cyndy-wound Skin Appearance Assessed ) -Color (Cyndy-wound Skin Appearance) Assessed, Erythema -Temperature (Cyndy-wound Skin No Abnormality Appearance) (Pt Warm) -Tenderness on Palpation (Cyndy-wound No Skin Appearance) -Ulcer Cleansing Rinsed/ Irrigated with Saline -Foul Odor after Cleansing No -Anesthetic Used 4% Lidocaine Solution #16- R LAT FOOT -Combined with other wound No -Current Size (cm) - Length 1.0 -Current Size (cm) - Width 0.9 -Current Size (cm) - Depth 0.2 -Total Square Cm 0.90 -Date of Last Picture (Recall this 07/17/19 field) -Photo Taken Yes -Epithelialization None Present -Tunneling No -Undermining/Tunneling No -Circular Undermining No -Exudate Amt Small -Exudate Type Serosanguineous -Wound Margin Distinct, Outline Attached -Granulation Amt None Present (0 %) -Slough/Fibrin Yes -Necrosis Amt Large (67-100%) -Necrotic Tissue Type Eschar -Texture (Cyndy-wound Skin Appearance) Assessed, Scarring -Moisture (Cyndy-wound Skin Appearance Maceration ) -Color (Cyndy-wound Skin Appearance) Assessed,Palor -Temperature (Cyndy-wound Skin No Abnormality Appearance) (Pt Warm) -Tenderness on Palpation (Cyndy-wound No Skin Appearance) -Ulcer Cleansing SOAP AND WATER -Foul Odor after Cleansing No -Anesthetic Used 4% Lidocaine Solution #15- R LAT HEEL -Combined with other wound No -Current Size (cm) - Length 6.5 -Current Size (cm) - Width 8 -Current Size (cm) - Depth 0.3 -Total Square Cm 52.0 -Date of Last Picture (Recall this 07/17/19 field) -Photo Taken Yes -Epithelialization None Present -Tunneling No -Undermining/Tunneling No -Circular Undermining No -Exudate Amt Large -Exudate Type Serosanguineous -Wound Margin Distinct, Outline Attached -Granulation Amt Small (1-33%) -Granulation Quality [place] -Slough/Fibrin Yes -Necrosis Amt Large (67-100%) -Necrotic Tissue Type Adherent Slough -Texture (Cyndy-wound Skin Appearance) Assessed, Scarring -Moisture (Cyndy-wound Skin Appearance Assessed, ) Maceration -Color (Cyndy-wound Skin Appearance) Assessed,Palor -Temperature (Cyndy-wound Skin No Abnormality Appearance) (Pt Warm) -Tenderness on Palpation (Cyndy-wound No Skin Appearance) -Ulcer Cleansing SOAP AND WATER -Foul Odor after Cleansing No -Anesthetic Used 4% Lidocaine Solution #14- R RAY INF/LAT LEG -Combined with other wound No -Current Size (cm) - Length 8.5 -Current Size (cm) - Width 11.5 -Current Size (cm) - Depth 0.1 -Total Square Cm 97.75 -Date of Last Picture (Recall this 07/17/19 field) -Photo Taken Yes -Epithelialization None Present -Tunneling No -Undermining/Tunneling No -Circular Undermining No -Exudate Amt Large -Exudate Type Serosanguineous -Wound Margin Flat & Intact -Granulation Amt Large (67-100%) -Granulation Quality [place] -Slough/Fibrin Yes -Necrosis Amt Small (1-33%) -Necrotic Tissue Type Adherent Slough -Texture (Cyndy-wound Skin Appearance) Assessed, Scarring -Moisture (Cyndy-wound Skin Appearance Assessed, ) Maceration -Color (Cyndy-wound Skin Appearance) Assessed,Palor -Temperature (Cyndy-wound Skin No Abnormality Appearance) (Pt Warm) -Tenderness on Palpation (Cyndy-wound No Skin Appearance) -Ulcer Cleansing SOAP ADN WATER -Foul Odor after Cleansing No -Anesthetic Used 4% Lidocaine Solution #13- R RAY SUPERIOR -Combined with other wound No -Current Size (cm) - Length 13.0 -Current Size (cm) - Width 6.8 -Current Size (cm) - Depth 0.2 -Total Square Cm 88.40 -Date of Last Picture (Recall this 07/17/19 field) -Photo Taken Yes -Epithelialization None Present -Tunneling No -Undermining/Tunneling No -Circular Undermining No -Exudate Amt Large -Exudate Type Serosanguineous -Wound Margin Flat & Intact -Granulation Amt Small (1-33%) -Granulation Quality [place] -Slough/Fibrin Yes -Necrosis Amt Large (67-100%) -Necrotic Tissue Type Adherent Slough -Texture (Cyndy-wound Skin Appearance) Assessed, Scarring -Moisture (Cyndy-wound Skin Appearance Assessed, ) Maceration -Color (Cyndy-wound Skin Appearance) Assessed,Palor -Temperature (Cyndy-wound Skin No Abnormality Appearance) (Pt Warm) -Tenderness on Palpation (Cyndy-wound No Skin Appearance) -Ulcer Cleansing SOAP AND WATER -Foul Odor after Cleansing No -Anesthetic Used 4% Lidocaine Solution [Edema Assessment] -Lower Limb Edema Present Yes -Right Calf (cm) 42.5 -Right Ankle (cm) 26.4 WC - Nurse 2 - General Ulcer CM Notes Start: 07/17/19 10:56 Freq: Status: Active Protocol: Activity Type Activity Date Activity User E-Sign Co-Sign Detail Recorded Client Recorded Date Recorded By Document 07/17/19 11:44 AN [id number] 07/17/19 11:51 AN 07/17/19 11:44 Wound Center Nurse 2 [Procedure/Treatment] #18- R PLANTAR FOOT -Time 11:45 -Correct Patient Yes -Correct Side, Site, Position Yes -Correct Procedure Yes -Procedure Performed Yes -Type of Procedure Debridement -Clinical Debridement Subcutaneous -Post Debridement Size (cm) - Length 2.6 -Post Debridement Size (cm) - Width 2.6 -Post Debridement Size (cm) - Depth 0.1 -Total Square Cm 6.76 -Wound/Ulcer Outcome Not Healed -Ulcer Cleansing Rinsed/ Irrigated with Saline -Bleeding Controlled with Pressure -Offloading Yes -Treatment Response Procedure Tolerated Well #17- R POST THIGH CLUSTER -Time 11:46 -Correct Patient Yes -Correct Side, Site, Position Yes -Correct Procedure Yes -Procedure Performed Yes -Type of Procedure Debridement -Clinical Debridement Subcutaneous -Post Debridement Size (cm) - Length 2.5 -Post Debridement Size (cm) - Width 5.7 -Post Debridement Size (cm) - Depth 0.1 -Total Square Cm 14.25 -Wound/Ulcer Outcome Not Healed -Ulcer Cleansing Rinsed/ Irrigated with Saline -Bleeding Controlled with Pressure -Offloading Yes -Type of Offloading Surgical Shoe -Treatment Response Procedure Tolerated Well #16- R LAT FOOT -Time 11:46 -Correct Patient Yes -Correct Side, Site, Position Yes -Correct Procedure Yes -Procedure Performed Yes -Type of Procedure Debridement -Clinical Debridement Subcutaneous -Post Debridement Size (cm) - Length 1.1 -Post Debridement Size (cm) - Width 1.0 -Post Debridement Size (cm) - Depth 0.2 -Total Square Cm 1.10 -Wound/Ulcer Outcome Not Healed -Ulcer Cleansing Rinsed/ Irrigated with Saline -Bleeding Controlled with Pressure -Offloading Yes -Type of Offloading Surgical Shoe -Treatment Response Procedure Tolerated Well #15- R LAT HEEL -Time 11:48 -Correct Patient Yes -Correct Side, Site, Position Yes -Correct Procedure Yes -Procedure Performed Yes -Type of Procedure Debridement -Clinical Debridement Subcutaneous -Post Debridement Size (cm) - Length 6.6 -Post Debridement Size (cm) - Width 8.1 -Post Debridement Size (cm) - Depth 0.3 -Total Square Cm 53.46 -Wound/Ulcer Outcome Not Healed -Ulcer Cleansing Rinsed/ Irrigated with Saline -Foul Odor after Cleansing No -Bioengineered Tissue No -Bleeding Controlled with Pressure -Offloading Yes -Type of Offloading Surgical Shoe -Treatment Response Procedure Tolerated Well #14- R RAY INF/LAT LEG -Time 11:48 -Correct Patient Yes -Correct Side, Site, Position Yes -Correct Procedure Yes -Procedure Performed Yes -Type of Procedure Debridement -Clinical Debridement Subcutaneous -Post Debridement Size (cm) - Length 8.6 -Post Debridement Size (cm) - Width 1.6 -Post Debridement Size (cm) - Depth 0.1 -Total Square Cm 13.76 -Wound/Ulcer Outcome Not Healed -Ulcer Cleansing Rinsed/ Irrigated with Saline -Foul Odor after Cleansing No -Bioengineered Tissue No -Bleeding Controlled with Pressure -Offloading Yes -Type of Offloading Surgical Shoe -Treatment Response Procedure Tolerated Well #13- R RAY SUPERIOR -Time 11:49 -Correct Patient Yes -Correct Side, Site, Position Yes -Correct Procedure Yes -Procedure Performed Yes -Type of Procedure Debridement -Clinical Debridement Subcutaneous -Post Debridement Size (cm) - Length 13.1 -Post Debridement Size (cm) - Width 6.9 -Post Debridement Size (cm) - Depth 0.2 -Total Square Cm 90.39 -Wound/Ulcer Outcome Not Healed -Ulcer Cleansing Rinsed/ Irrigated with Saline -Foul Odor after Cleansing No -Bioengineered Tissue No -Bleeding Controlled with Pressure -Offloading Yes -Type of Offloading Surgical Shoe -Treatment Response Procedure Tolerated Well [See Physician Procedure note for Specifics] Pain Scale: 0-10 Numeric [Pain] -Is Patient Pain Free? Yes Musculoskeletal: No Tenderness to Palpation of Joints or Extremities, Muscle Wasting, - - Compartments are soft to palpate right lower extremity Neurological: - - Lack of normal epicritic sensation light touch right lower extremity Psych/Mental Status: Normal Affect, Appropriate Debridement Note Post-Debridement Measurements/Treatment WC - Nurse 2 - General Ulcer CM Notes Start: 07/17/19 10:56 Freq: Status: Active Protocol: Activity Type Activity Date Activity User E-Sign Co-Sign Detail Recorded Client Recorded Date Recorded By Document 07/17/19 11:44 AN [id number] 07/17/19 11:51 AN 07/17/19 11:44 Wound Center Nurse 2 #18- R PLANTAR FOOT -Time 11:45 -Correct Patient Yes -Correct Side, Site, Position Yes -Correct Procedure Yes -Procedure Performed Yes -Type of Procedure Debridement -Clinical Debridement Subcutaneous -Post Debridement Size (cm) - Length 2.6 -Post Debridement Size (cm) - Width 2.6 -Post Debridement Size (cm) - Depth 0.1 -Total Square Cm 6.76 -Wound/Ulcer Outcome Not Healed -Ulcer Cleansing Rinsed/ Irrigated with Saline -Bleeding Controlled with Pressure -Offloading Yes -Treatment Response Procedure Tolerated Well #17- R POST THIGH CLUSTER -Time 11:46 -Correct Patient Yes -Correct Side, Site, Position Yes -Correct Procedure Yes -Procedure Performed Yes -Type of Procedure Debridement -Clinical Debridement Subcutaneous -Post Debridement Size (cm) - Length 2.5 -Post Debridement Size (cm) - Width 5.7 -Post Debridement Size (cm) - Depth 0.1 -Total Square Cm 14.25 -Wound/Ulcer Outcome Not Healed -Ulcer Cleansing Rinsed/ Irrigated with Saline -Bleeding Controlled with Pressure -Offloading Yes -Type of Offloading Surgical Shoe -Treatment Response Procedure Tolerated Well #16- R LAT FOOT -Time 11:46 -Correct Patient Yes -Correct Side, Site, Position Yes -Correct Procedure Yes -Procedure Performed Yes -Type of Procedure Debridement -Clinical Debridement Subcutaneous -Post Debridement Size (cm) - Length 1.1 -Post Debridement Size (cm) - Width 1.0 -Post Debridement Size (cm) - Depth 0.2 -Total Square Cm 1.10 -Wound/Ulcer Outcome Not Healed -Ulcer Cleansing Rinsed/ Irrigated with Saline -Bleeding Controlled with Pressure -Offloading Yes -Type of Offloading Surgical Shoe -Treatment Response Procedure Tolerated Well #15- R LAT HEEL -Time 11:48 -Correct Patient Yes -Correct Side, Site, Position Yes -Correct Procedure Yes -Procedure Performed Yes -Type of Procedure Debridement -Clinical Debridement Subcutaneous -Post Debridement Size (cm) - Length 6.6 -Post Debridement Size (cm) - Width 8.1 -Post Debridement Size (cm) - Depth 0.3 -Total Square Cm 53.46 -Wound/Ulcer Outcome Not Healed -Ulcer Cleansing Rinsed/ Irrigated with Saline -Foul Odor after Cleansing No -Bioengineered Tissue No -Bleeding Controlled with Pressure -Offloading Yes -Type of Offloading Surgical Shoe -Treatment Response Procedure Tolerated Well #14- R RAY INF/LAT LEG -Time 11:48 -Correct Patient Yes -Correct Side, Site, Position Yes -Correct Procedure Yes -Procedure Performed Yes -Type of Procedure Debridement -Clinical Debridement Subcutaneous -Post Debridement Size (cm) - Length 8.6 -Post Debridement Size (cm) - Width 1.6 -Post Debridement Size (cm) - Depth 0.1 -Total Square Cm 13.76 -Wound/Ulcer Outcome Not Healed -Ulcer Cleansing Rinsed/ Irrigated with Saline -Foul Odor after Cleansing No -Bioengineered Tissue No -Bleeding Controlled with Pressure -Offloading Yes -Type of Offloading Surgical Shoe -Treatment Response Procedure Tolerated Well #13- R RAY SUPERIOR -Time 11:49 -Correct Patient Yes -Correct Side, Site, Position Yes -Correct Procedure Yes -Procedure Performed Yes -Type of Procedure Debridement -Clinical Debridement Subcutaneous -Post Debridement Size (cm) - Length 13.1 -Post Debridement Size (cm) - Width 6.9 -Post Debridement Size (cm) - Depth 0.2 -Total Square Cm 90.39 -Wound/Ulcer Outcome Not Healed -Ulcer Cleansing Rinsed/ Irrigated with Saline -Foul Odor after Cleansing No -Bioengineered Tissue No -Bleeding Controlled with Pressure -Offloading Yes -Type of Offloading Surgical Shoe -Treatment Response Procedure Tolerated Well Pain Scale: 0-10 Numeric Is Patient Pain Free? Yes Wound debrided: medial forefoot Laterality: Right Type of Debridement: Excisional debridement Anesthesia Used: 5% Lidocaine Gel Depth: in the subcutaneous layer Percentage of wound debrided: 100 Instrument Used: #15 blade Tissue Removed: fibrous, devitalized subcutaneous, biofilm, slough Severity: Fat Layer Exposed Amount of bleeding with debridement: Mild Bleeding Controlled with: Pressure Patient tolerated procedure well - Additional Wound Wound debrided: heel Laterality: Right Type of Debridement: Excisional debridement Anesthesia Used: 5% Lidocaine Gel Depth: in the subcutaneous layer Percentage of wound debrided: 100 Instrument Used: #15 blade, Forceps Tissue Removed: fibrous, devitalized subcutaneous, biofilm, slough Severity: Fat Layer Exposed Amount of bleeding with debridement: Mild Bleeding Controlled with: Pressure Patient tolerated procedure: Patient tolerated procedure well - Additional Wound Wound debrided: anterior ray (proximal) Laterality: Right Type of Debridement: Excisional debridement Anesthesia Used: 4% Lidocaine Solution Depth: in the subcutaneous layer Percentage of wound debrided: 100 Instrument Used: #15 blade Tissue Removed: fibrous, devitalized subcutaneous, biofilm, slough Severity: Fat Layer Exposed Amount of bleeding with debridement: Mild Bleeding Controlled with: Pressure, Compression and gauze - Additional Wound Wound debrided: anterior leg (inferior) Laterality: Right Type of Debridement: Excisional debridement Anesthesia Used: 5% Lidocaine Gel Depth: in the subcutaneous layer Percentage of wound debrided: 100 Instrument Used: #15 blade Tissue Removed: fibrous, devitalized subcutaneous, biofilm, slough Severity: Fat Layer Exposed Amount of bleeding with debridement: Mild Bleeding Controlled with: Pressure Patient tolerated procedure: Patient tolerated procedure well Assessment/Plan Assessment: Right leg ulcer with fat layer exposed x 2, no infection. Right heel ulcer with fat layer exposed, no infection-worse status. right foot ulcers that layer exposed, no infection. Malnutrition. Peripheral vascular disease. 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 Bilateral lower leg edema swelling. Neuropathy lower extremities. Atrial fibrillation. Non compliance. Venous insufficiency. Left lower extremity amputation healing noted. Right knee contracture. Plan: I reviewed and discuss his case including his current treatment plan, ongoing risks including serious systemic illness and further limb loss. It is noted he has had recent failure to thrive over the past month and half and was evaluated in the emergency room a couple times. It is also noted that he was admitted to the hospital on 06/11/2018 for failure to thrive and was subsequently treated for infected heel ulcer. It is noted he was discharged home on cefdinir and Bactrim. While admitted to the hospital, infectious disease physician did see and evaluate him. His cultures from approximately 2 weeks ago were also reviewed with multi-organism growth including MRSA. His last lab work from 06/25/2018 was also reviewed without gross abnormalities of the CBC or CMP. He does not have a past medical history of diabetes however screening hemoglobin A1c will be considered. Subcutaneous excisional debridement was performed to ulcer site edema and clinical panel. He has known peripheral vascular disease and chronic venous insufficiency is also suspected. To continue daily Santyl to leg and foot ulcers with the exception of Betadine wet-to-dry gauze to the heel. To offload by keeping pressure off of the sites. He understands his knee contracture is an issue for healing and functionality. He has been working with physical therapy at home. He understands he is high risk for amputation and this may be more functional for him. His deterioration of the right heel is noted unremarkable compared to his last visit the wound healing center over a month ago. He would like to proceed with a limb salvage plan at this time. To take nutritional supplementation to optimize healing. To continue with periodic elevation and application of Brandon wrap to control edema. I answered his questions. To follow-up with vascular surgery for intervention is scheduled. He was supposed to follow-up with vascular surgery in mid June and these medical documents will be requested. To continue with home health assistance for wound care and other daily assistance. His progressive decline over the past year is noted. He will return to the wound healing center 1 week or call sooner if you have any questions or concerns. I answered his questions.
== END 2019-07-18 23:59 ==
LOC: WC 10:51
PROVIDERS: Family Provider Internal Medicine; PCP Internal Medicine; Referring Provider Podiatrist; Visit Provider Podiatrist
DX: I73.89 Other specified peripheral vascular diseases (principal); I87.2 Venous insufficiency (chronic) (peripheral); L97.412 Non-pressure chronic ulcer of right heel and midfoot with fat layer exposed; M24.561 Contracture, right knee; N18.3 Chronic kidney disease, stage 3 (moderate); L97.812 Non-pressure chronic ulcer of other part of right lower leg with fat layer exposed; Z91.19 Patient's noncompliance with other medical treatment and regimen; G62.9 Polyneuropathy, unspecified; Z86.14 Personal history of Methicillin resistant Staphylococcus aureus infection; M30.3 Mucocutaneous lymph node syndrome [Kawasaki]; I50.22 Chronic systolic (congestive) heart failure
CPT/HCPCS: 11042; 11045

== ENCOUNTER 2019-07-31 14:00 | Outpatient (RCR) | payer MEDICARE, OTHER, SELFPAY ==
[2019-07-19 00:25] VITALS: BP 103/67; PULSE 123; RESP 18; TEMP 37.6
[2019-07-31 14:22] VITALS: BP 105/65; PULSE 107; RESP 18; TEMP 36.3; BMI 23.1
--- NOTE | 2019-07-31 15:17 | PCM.WC.PN ---
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: Chronic Current Visit: Yes Code(s): L97.512 - Non-pressure chronic ulcer of other part of right foot with fat layer exposed (4) Malnutrition Status: Chronic Current Visit: Yes Code(s): E46 - Unspecified protein-calorie malnutrition (5) Ulcer of right lower extremity with fat layer exposed Status: Chronic Current Visit: Yes Code(s): L97.912 - Non-pressure chronic ulcer of unspecified part of right lower leg with fat layer exposed (6) Venous insufficiency Status: Chronic Current Visit: Yes Code(s): I87.2 - Venous insufficiency (chronic) (peripheral) (7) Delayed wound healing Status: Chronic Current Visit: Yes Code(s): T14.8XXD - Other injury of unspecified body region, subsequent encounter Type of Wound Date of Service: 07/31/19 Chief Complaint: Right leg and foot ulcers History of Wound: 78-year-old male returns to the wound healing center for right leg ulcers, heel ulcer, a right foot ulcer. He has a home nurse visiting who helps with Santyl dressings. He has a home health nurse and also privately hired nurse to help with this. He has completed course of antibiotics. He is continue to follow-up with orthopedics in regards to his knee contracture and understands he is at risk for limb loss. He is seeing a physical therapist. He has established peripheral vascular disease and is under the care of Dr. Maloney. He relates his next follow-up for an interventional angiogram procedure is in about 1 month. He denies current fever, chill, nausea, vomiting. His pain is controlled today. He presents in a wheelchair. He tries to apply the Brandon wrap intermittently as tolerated. His decline status is noted. Progress of Wound: Stable right leg and foot ulcers - Physical Exam Vital Signs Temp Pulse Resp BP 97.3 F L 107 H 18 105/65 07/31/19 14:22 07/31/19 14:22 07/31/19 14:22 07/31/19 14:22 General: Alert, Oriented x3, Cooperative, No apparent distress HEENT: Atraumatic Extremities: No cyanosis, Capillary Refill Less than 3 Seconds, No Calf Tenderness - Negative celeste sign right, Diminished Peripheral Pulses, Edema - Decreased right lower extremity but still persistent, - - Left lower extremity amputation noted. Right rigid knee contraction noted Skin: Ulcer/ Wound - Devitalized necrotic tissue to the right heel is significantly resolved and the remaining tissue quality is fibrous and granular. The odor has resolved. There is no muscle or bone exposed. There is no maceration. There is no purulence, erythema hamstring, odor or cutaneous infection to all ulcer sites. His peripheral skin is very hairless and atrophic. The anterior leg ulcers have a significant amount of fibrous tissue and this has been reducing since he has been on Santyl Wound Measurements and Assessment WC - Nurse 1 - General Ulcer Measurement Start: 07/24/19 14:49 Freq: Status: Active Protocol: Activity Type Activity Date Activity User E-Sign Co-Sign Detail Recorded Client Recorded Date Recorded By Document 07/31/19 14:22 [id number] 07/31/19 14:45 07/31/19 14:22 Wound Center Nurse 1 [Ulcer Assessment] #18- R PLANTAR FOOT -Current Size (cm) - Length 1.5 -Current Size (cm) - Width 2.1 -Current Size (cm) - Depth 0.2 -Total Square Cm 3.15 -Tunneling No -Undermining/Tunneling No -Circular Undermining No -Exudate Amt Medium -Exudate Type Serosanguineous -Wound Margin Thickened & Rolled Under -Granulation Amt Small (1-33%) -Granulation Quality [place] -Slough/Fibrin Yes -Necrosis Amt Large (67-100%) -Necrotic Tissue Type Adherent Slough -Structure Exposed N/A -Texture (Cyndy-wound Skin Appearance) Assessed -Moisture (Cyndy-wound Skin Appearance Maceration ) -Color (Cyndy-wound Skin Appearance) Assessed -Temperature (Cyndy-wound Skin No Abnormality Appearance) (Pt Warm) -Tenderness on Palpation (Cyndy-wound No Skin Appearance) -Ulcer Cleansing Wound Cleanser -Foul Odor after Cleansing No -Anesthetic Used 4% Lidocaine Solution #17- R POST THIGH CLUSTER -Combined with other wound No -Current Size (cm) - Length 7.5 -Current Size (cm) - Width 5.5 -Current Size (cm) - Depth 0.1 -Total Square Cm 41.25 -Tunneling No -Undermining/Tunneling No -Circular Undermining No -Exudate Amt Medium -Exudate Type Serosanguineous -Wound Margin Flat & Intact -Granulation Amt Medium (34-66%) -Granulation Quality [place] -Slough/Fibrin Yes -Necrosis Amt Medium (34-66%) -Necrotic Tissue Type Adherent Slough -Structure Exposed N/A -Texture (Cyndy-wound Skin Appearance) Assessed, Excoriation, Friable -Moisture (Cyndy-wound Skin Appearance Assessed ) -Color (Cyndy-wound Skin Appearance) Assessed -Temperature (Cyndy-wound Skin No Abnormality Appearance) (Pt Warm) -Tenderness on Palpation (Cyndy-wound No Skin Appearance) -Ulcer Cleansing Wound Cleanser -Foul Odor after Cleansing No -Anesthetic Used 4% Lidocaine Solution #16- R LAT FOOT -Combined with other wound No -Current Size (cm) - Length 1.5 -Current Size (cm) - Width 1.2 -Current Size (cm) - Depth 0.3 -Total Square Cm 1.80 -Tunneling No -Undermining/Tunneling No -Circular Undermining No -Exudate Amt Medium -Exudate Type Serosanguineous -Wound Margin Thickened & Rolled Under -Granulation Amt Small (1-33%) -Granulation Quality [place] -Slough/Fibrin Yes -Necrosis Amt Large (67-100%) -Necrotic Tissue Type Adherent Slough -Structure Exposed N/A -Texture (Cyndy-wound Skin Appearance) Assessed -Moisture (Cyndy-wound Skin Appearance Assessed, ) Maceration -Color (Cyndy-wound Skin Appearance) Assessed -Temperature (Cyndy-wound Skin No Abnormality Appearance) (Pt Warm) -Tenderness on Palpation (Cyndy-wound No Skin Appearance) -Ulcer Cleansing Wound Cleanser -Foul Odor after Cleansing No -Anesthetic Used 4% Lidocaine Solution #15- R LAT HEEL -Combined with other wound No -Current Size (cm) - Length 6 -Current Size (cm) - Width 6.5 -Current Size (cm) - Depth 0.5 -Total Square Cm 39.0 -Tunneling No -Undermining/Tunneling No -Circular Undermining No -Exudate Amt Medium -Exudate Type Serosanguineous -Wound Margin Thickened & Rolled Under -Granulation Amt Medium (34-66%) -Granulation Quality [place] -Slough/Fibrin Yes -Necrosis Amt Medium (34-66%) -Necrotic Tissue Type Adherent Slough -Structure Exposed N/A -Texture (Cyndy-wound Skin Appearance) Assessed -Moisture (Cyndy-wound Skin Appearance Assessed, ) Maceration -Color (Cyndy-wound Skin Appearance) Assessed -Temperature (Cyndy-wound Skin No Abnormality Appearance) (Pt Warm) -Tenderness on Palpation (Cyndy-wound No Skin Appearance) -Ulcer Cleansing Wound Cleanser -Foul Odor after Cleansing No -Anesthetic Used 4% Lidocaine Solution #14- R MCDOWELL INF/LAT LEG -Combined with other wound No -Current Size (cm) - Length 6.7 -Current Size (cm) - Width 8 -Current Size (cm) - Depth 0.2 -Total Square Cm 53.6 -Tunneling No -Undermining/Tunneling No -Circular Undermining No -Exudate Amt Large -Exudate Type Serosanguineous -Wound Margin Thickened & Rolled Under -Granulation Amt Medium (34-66%) -Granulation Quality [place] -Slough/Fibrin Yes -Necrosis Amt Large (67-100%) -Necrotic Tissue Type Adherent Slough -Structure Exposed N/A -Texture (Cyndy-wound Skin Appearance) Assessed -Moisture (Cyndy-wound Skin Appearance Assessed, ) Maceration -Color (Cyndy-wound Skin Appearance) Assessed -Temperature (Cyndy-wound Skin No Abnormality Appearance) (Pt Warm) -Tenderness on Palpation (Cyndy-wound No Skin Appearance) -Ulcer Cleansing Wound Cleanser -Foul Odor after Cleansing No -Anesthetic Used 4% Lidocaine Solution #13- R MCDOWELL SUPERIOR -Combined with other wound No -Current Size (cm) - Length 13.2 -Current Size (cm) - Width 6.8 -Current Size (cm) - Depth 0.3 -Total Square Cm 89.76 -Tunneling No -Undermining/Tunneling No -Circular Undermining No -Exudate Amt Large -Exudate Type Serosanguineous -Wound Margin Thickened & Rolled Under -Granulation Amt Medium (34-66%) -Granulation Quality [place] -Slough/Fibrin Yes -Necrosis Amt Large (67-100%) -Necrotic Tissue Type Adherent Slough -Structure Exposed N/A -Texture (Cyndy-wound Skin Appearance) Assessed -Moisture (Cyndy-wound Skin Appearance Maceration ) -Color (Cyndy-wound Skin Appearance) Assessed -Temperature (Cyndy-wound Skin No Abnormality Appearance) (Pt Warm) -Tenderness on Palpation (Cyndy-wound No Skin Appearance) -Ulcer Cleansing Wound Cleanser -Foul Odor after Cleansing No -Anesthetic Used 4% Lidocaine Solution WC - Nurse 2 - General Ulcer CM Notes Start: 07/24/19 14:49 Freq: Status: Active Protocol: Activity Type Activity Date Activity User E-Sign Co-Sign Detail Recorded Client Recorded Date Recorded By Document 07/31/19 15:07 MAGALYS [id number] 07/31/19 15:12 MAGALYS 07/31/19 15:07 Wound Center Nurse 2 [Procedure/Treatment] #18- R PLANTAR FOOT -Time 15:07 -Correct Patient Yes -Correct Side, Site, Position Yes -Correct Procedure Yes -Procedure Performed Yes -Type of Procedure Debridement -Clinical Debridement Subcutaneous -Post Debridement Size (cm) - Length 1.5 -Post Debridement Size (cm) - Width 2.2 -Post Debridement Size (cm) - Depth 0.2 -Total Square Cm 3.30 -Wound/Ulcer Outcome Not Healed -Ulcer Cleansing Rinsed/ Irrigated with Saline -Foul Odor after Cleansing No -Bioengineered Tissue No -Bleeding Controlled with Pressure -Offloading No -Treatment Response Procedure Tolerated Well #17- R POST THIGH CLUSTER -Correct Patient No -Correct Side, Site, Position No -Correct Procedure No -Procedure Performed No #16- R LAT FOOT -Time 15:09 -Correct Patient Yes -Correct Side, Site, Position Yes -Correct Procedure Yes -Procedure Performed Yes -Type of Procedure Debridement -Clinical Debridement Subcutaneous -Post Debridement Size (cm) - Length 1.5 -Post Debridement Size (cm) - Width 1.3 -Post Debridement Size (cm) - Depth 0.3 -Total Square Cm 1.95 -Wound/Ulcer Outcome Not Healed -Ulcer Cleansing Rinsed/ Irrigated with Saline -Foul Odor after Cleansing No -Bioengineered Tissue No -Bleeding Controlled with Pressure -Offloading No -Treatment Response Procedure Tolerated Well #15- R LAT HEEL -Time 15:10 -Correct Patient Yes -Correct Side, Site, Position Yes -Correct Procedure Yes -Procedure Performed Yes -Type of Procedure Debridement -Clinical Debridement Subcutaneous -Post Debridement Size (cm) - Length 6.1 -Post Debridement Size (cm) - Width 6.5 -Post Debridement Size (cm) - Depth 0.5 -Total Square Cm 39.65 -Wound/Ulcer Outcome Not Healed -Ulcer Cleansing Rinsed/ Irrigated with Saline -Foul Odor after Cleansing No -Bioengineered Tissue No -Bleeding Controlled with Pressure -Offloading No -Treatment Response Procedure Tolerated Well #14- R MCDOWELL INF/LAT LEG -Time 15:11 -Correct Patient Yes -Correct Side, Site, Position Yes -Correct Procedure Yes -Procedure Performed Yes -Type of Procedure Debridement -Clinical Debridement Subcutaneous -Post Debridement Size (cm) - Length 6.8 -Post Debridement Size (cm) - Width 8 -Post Debridement Size (cm) - Depth 0.2 -Total Square Cm 54.4 -Wound/Ulcer Outcome Not Healed -Ulcer Cleansing Rinsed/ Irrigated with Saline -Foul Odor after Cleansing No -Bioengineered Tissue No -Bleeding Controlled with Pressure -Offloading No -Treatment Response Procedure Tolerated Well #13- R MCDOWELL SUPERIOR -Time 15:11 -Correct Patient Yes -Correct Side, Site, Position Yes -Correct Procedure Yes -Procedure Performed Yes -Type of Procedure Debridement -Clinical Debridement Subcutaneous -Post Debridement Size (cm) - Length 13.3 -Post Debridement Size (cm) - Width 6.8 -Post Debridement Size (cm) - Depth 0.3 -Total Square Cm 90.44 -Wound/Ulcer Outcome Not Healed -Ulcer Cleansing Rinsed/ Irrigated with Saline -Foul Odor after Cleansing No -Bioengineered Tissue No -Bleeding Controlled with Pressure -Offloading No -Treatment Response Procedure Tolerated Well [See Physician Procedure note for Specifics] Pain Scale: 0-10 Numeric [Pain] -Is Patient Pain Free? Yes Musculoskeletal: No Tenderness to Palpation of Joints or Extremities, Muscle Wasting, - - compartment soft to palpate right lower extremity Neurological: Sensory exam intact to light touch and pain Psych/Mental Status: Normal Affect, Appropriate, Anxious Debridement Note Post-Debridement Measurements/Treatment WC - Nurse 2 - General Ulcer CM Notes Start: 07/24/19 14:49 Freq: Status: Active Protocol: Activity Type Activity Date Activity User E-Sign Co-Sign Detail Recorded Client Recorded Date Recorded By Document 07/31/19 15:07 MAGALYS [id number] 07/31/19 15:12 MAGALYS 07/31/19 15:07 Wound Center Nurse 2 #18- R PLANTAR FOOT -Time 15:07 -Correct Patient Yes -Correct Side, Site, Position Yes -Correct Procedure Yes -Procedure Performed Yes -Type of Procedure Debridement -Clinical Debridement Subcutaneous -Post Debridement Size (cm) - Length 1.5 -Post Debridement Size (cm) - Width 2.2 -Post Debridement Size (cm) - Depth 0.2 -Total Square Cm 3.30 -Wound/Ulcer Outcome Not Healed -Ulcer Cleansing Rinsed/ Irrigated with Saline -Foul Odor after Cleansing No -Bioengineered Tissue No -Bleeding Controlled with Pressure -Offloading No -Treatment Response Procedure Tolerated Well #17- R POST THIGH CLUSTER -Correct Patient No -Correct Side, Site, Position No -Correct Procedure No -Procedure Performed No #16- R LAT FOOT -Time 15:09 -Correct Patient Yes -Correct Side, Site, Position Yes -Correct Procedure Yes -Procedure Performed Yes -Type of Procedure Debridement -Clinical Debridement Subcutaneous -Post Debridement Size (cm) - Length 1.5 -Post Debridement Size (cm) - Width 1.3 -Post Debridement Size (cm) - Depth 0.3 -Total Square Cm 1.95 -Wound/Ulcer Outcome Not Healed -Ulcer Cleansing Rinsed/ Irrigated with Saline -Foul Odor after Cleansing No -Bioengineered Tissue No -Bleeding Controlled with Pressure -Offloading No -Treatment Response Procedure Tolerated Well #15- R LAT HEEL -Time 15:10 -Correct Patient Yes -Correct Side, Site, Position Yes -Correct Procedure Yes -Procedure Performed Yes -Type of Procedure Debridement -Clinical Debridement Subcutaneous -Post Debridement Size (cm) - Length 6.1 -Post Debridement Size (cm) - Width 6.5 -Post Debridement Size (cm) - Depth 0.5 -Total Square Cm 39.65 -Wound/Ulcer Outcome Not Healed -Ulcer Cleansing Rinsed/ Irrigated with Saline -Foul Odor after Cleansing No -Bioengineered Tissue No -Bleeding Controlled with Pressure -Offloading No -Treatment Response Procedure Tolerated Well #14- R MCDOWELL INF/LAT LEG -Time 15:11 -Correct Patient Yes -Correct Side, Site, Position Yes -Correct Procedure Yes -Procedure Performed Yes -Type of Procedure Debridement -Clinical Debridement Subcutaneous -Post Debridement Size (cm) - Length 6.8 -Post Debridement Size (cm) - Width 8 -Post Debridement Size (cm) - Depth 0.2 -Total Square Cm 54.4 -Wound/Ulcer Outcome Not Healed -Ulcer Cleansing Rinsed/ Irrigated with Saline -Foul Odor after Cleansing No -Bioengineered Tissue No -Bleeding Controlled with Pressure -Offloading No -Treatment Response Procedure Tolerated Well #13- R MCDOWELL SUPERIOR -Time 15:11 -Correct Patient Yes -Correct Side, Site, Position Yes -Correct Procedure Yes -Procedure Performed Yes -Type of Procedure Debridement -Clinical Debridement Subcutaneous -Post Debridement Size (cm) - Length 13.3 -Post Debridement Size (cm) - Width 6.8 -Post Debridement Size (cm) - Depth 0.3 -Total Square Cm 90.44 -Wound/Ulcer Outcome Not Healed -Ulcer Cleansing Rinsed/ Irrigated with Saline -Foul Odor after Cleansing No -Bioengineered Tissue No -Bleeding Controlled with Pressure -Offloading No -Treatment Response Procedure Tolerated Well Pain Scale: 0-10 Numeric Is Patient Pain Free? Yes Wound debrided: anterior leg Laterality: Right Type of Debridement: Excisional debridement Anesthesia Used: 5% Lidocaine Gel Depth: in the subcutaneous layer Percentage of wound debrided: 100 Instrument Used: #15 blade Tissue Removed: fibrous, devitalized subcutaneous, biofilm, slough Severity: Fat Layer Exposed Amount of bleeding with debridement: Mild Bleeding Controlled with: Pressure Patient tolerated procedure well - Additional Wound Wound debrided: anterior leg (inferior lateral) Laterality: Right Type of Debridement: Excisional debridement Anesthesia Used: 5% Lidocaine Gel Depth: in the subcutaneous layer Percentage of wound debrided: 100 Instrument Used: #15 blade Tissue Removed: fibrous, devitalized subcutaneous, biofilm, slough Severity: Fat Layer Exposed Amount of bleeding with debridement: Mild Bleeding Controlled with: Pressure Patient tolerated procedure: Patient tolerated procedure well - Additional Wound Wound debrided: heel Laterality: Right Type of Debridement: Excisional debridement Anesthesia Used: 5% Lidocaine Gel Depth: in the subcutaneous layer Percentage of wound debrided: 100 Instrument Used: #15 blade Tissue Removed: fibrous, devitalized subcutaneous, biofilm, slough Severity: Fat Layer Exposed Amount of bleeding with debridement: Mild Bleeding Controlled with: Pressure Patient tolerated procedure: Patient tolerated procedure well - Additional Wound Wound debrided: sub 1st metatarsal head Laterality: Right Type of Debridement: Excisional debridement Anesthesia Used: 5% Lidocaine Gel Depth: in the subcutaneous layer Percentage of wound debrided: 100 Instrument Used: #15 blade Tissue Removed: fibrous, devitalized subcutaneous, biofilm, slough Severity: Fat Layer Exposed Amount of bleeding with debridement: Mild Bleeding Controlled with: Pressure Patient tolerated procedure: Patient tolerated procedure well - Additional Wound Wound debrided: lateral foot Laterality: Right Type of Debridement: Excisional debridement Anesthesia Used: 5% Lidocaine Gel Depth: in the subcutaneous layer Percentage of wound debrided: 100 Instrument Used: #15 blade Tissue Removed: fibrous, devitalized subcutaneous, biofilm, slough Severity: Fat Layer Exposed Amount of bleeding with debridement: Mild Bleeding Controlled with: Pressure Patient tolerated procedure: Patient tolerated procedure well Assessment/Plan Active Problems (Last Updated 06/13/19 @ 11:55 by ELLY Jc) Other specified peripheral vascular diseases (Chronic) Knee contracture (Chronic) Ulcer 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 Right heel ulcer with fat layer exposed, no infection-improved and stabilized status. right foot ulcers that layer exposed, no infection. Malnutrition. Peripheral vascular disease. 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 Bilateral lower leg edema swelling. Neuropathy lower extremities. Atrial fibrillation. Non compliance. Venous insufficiency. Left lower extremity amputation healing noted. Right knee contracture. Plan: I reviewed and discuss his case including his current treatment plan, ongoing risks including serious systemic illness and further limb loss. It is noted he has had recent failure to thrive over the past month and half and was evaluated in the emergency room a couple times. It is also noted that he was admitted to the hospital on 06/11/2018 for failure to thrive and was subsequently treated for infected heel ulcer. It is noted he was discharged home on cefdinir and Bactrim. While admitted to the hospital, infectious disease physician did see and evaluate him. His last lab work from 06/25/2018 was also reviewed without gross abnormalities of the CBC or CMP. He does not have a past medical history of diabetes however screening hemoglobin A1c will be considered. Subcutaneous excisional debridement was performed to ulcer site edema and clinical panel. He has known peripheral vascular disease and chronic venous insufficiency is also suspected. To continue daily Santyl to leg and foot ulcers with the exception of Betadine wet-to-dry gauze to the heel. To offload by keeping pressure off of the sites. He understands his knee contracture is an issue for healing and functionality. He has been working with physical therapy at home. He understands he is high risk for amputation and this may be more functional for him. He would like to proceed with a limb salvage plan at this time. To take nutritional supplementation to optimize healing. To continue with periodic elevation and application of Brandon wrap to control edema. I answered his questions. To follow-up with vascular surgery for intervention is scheduled. He was supposed to follow-up with vascular surgery in mid June and these medical documents will be requested. To continue with home health assistance for wound care and other daily assistance. His progressive decline over the past year is noted. He will return to the wound healing center 1 week or call sooner if you have any questions or concerns. I answered his questions.
== END 2019-08-17 23:59 ==
LOC: WC 14:00
PROVIDERS: Family Provider Internal Medicine; PCP Internal Medicine; Referring Provider Podiatrist; Visit Provider Podiatrist
DX: I73.89 Other specified peripheral vascular diseases (principal); M24.569 Contracture, unspecified knee; L97.512 Non-pressure chronic ulcer of other part of right foot with fat layer exposed; I87.2 Venous insufficiency (chronic) (peripheral); M24.561 Contracture, right knee; L97.812 Non-pressure chronic ulcer of other part of right lower leg with fat layer exposed; L97.412 Non-pressure chronic ulcer of right heel and midfoot with fat layer exposed; Z86.14 Personal history of Methicillin resistant Staphylococcus aureus infection; M30.3 Mucocutaneous lymph node syndrome [Kawasaki]; I50.22 Chronic systolic (congestive) heart failure; Z91.19 Patient's noncompliance with other medical treatment and regimen; I48.91 Unspecified atrial fibrillation; G62.9 Polyneuropathy, unspecified; Z89.612 Acquired absence of left leg above knee
CPT/HCPCS: 11042; 11045

== ENCOUNTER 2019-08-04 16:06 | Inpatient (IN) | payer MEDICARE, OTHER, SELFPAY ==
[2019-08-04] VITALS (9 sets, daily range): BP systolic 97–122; BP diastolic 59–78; PULSE 78–141; RESP 13–28; TEMP 36.6–37.6; O2SAT 97–99; BMI 23.2; BMI 21.7
--- NOTE | 2019-08-04 16:50 | RAD_ITS ---
STUDY: X-RAY - RIGHT FOOT CLINICAL: Male, 78 years old. Infection TECHNIQUE: 3 view(s) of the foot. COMPARISON: None. FINDINGS: Decreased cortical density at the heads of the third, fourth and fifth metatarsals as well as the proximal phalanx of these digits. Osteomyelitis, cannot be excluded. Extensive forefoot soft tissue swelling with plantar soft tissue ulceration. RAD/Foot min 3 Views IMPRESSION: Extensive soft tissue swelling. Possible osteomyelitis. Electronically Signed: Thanh Ye DO at 18:07 EST Tel , Service support ,
--- NOTE | 2019-08-04 17:01 | ED.DCSUM_ITS ---
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 Patient states he is in wound care and his chronic wounds on his right leg. He notes for the past 3 days has had increased redness, pain and drainage. He states he has chronic swelling of the right foot and lower leg but that is unchanged. He denies any fever, chills, chest pain, shortness of breath or generalized malaise. Denies any urinary symptoms or GI symptoms. Past Medical History - Allergies and Home Meds Allergies/Adverse Reactions: Allergies codeine Adverse Reaction (Verified 08/04/19 16:11) Nausea Past Medical History: - - Atrial fibrillation, chronic wounds, MRSA Surgical History: appendectomy, herniorrhaphy, - - Hand surgery. left AKA Lives: Spouse/ Significant Other Smoking Status: Former smoker - Family History Maternal Family History: Family History (Last Reviewed 08/04/19 @ 19:52 by Kendall Modi DO) Mother Alzheimers disease Grandmother Alzheimers disease Brother Cancer Family History: Reports: Dementia Paternal Family History: Family History (Last Reviewed 08/04/19 @ 19:52 by Kendall Modi DO) Mother Alzheimers disease Grandmother Alzheimers disease Brother Cancer Family History: Reports: - - venous ulcers Review of Systems General: Denies: Chills, Fever, Sweats Eyes: Denies: Visual changes - bilaterally, Diplopia ENT: Denies: Rhinorrhea, Sore throat Cardiovascular: Denies: Chest pain, Palpitations Respiratory: Denies: Dyspnea, Cough, Dyspnea on exertion Gastrointestinal: Denies: Abdominal pain, Nausea, Vomiting, Diarrhea, Melena, Hematochezia Genitourinary: Denies: Dysuria, Hematuria, Frequency Musculoskeletal: Reports: Swelling - Chronic?right foot, Extremity Pain - Right foot. Denies: Back pain Skin: Reports: Wounds - Extensive chronic draining wounds on the right lower leg and foot. Erythema and edema of the foot extending up to mid ray, mild tenderness to palpation.. Denies: Rash Neurological: Denies: Headache, Weakness, Numbness Physical Exam Vital Signs/Narrative: Vital Signs Temp Pulse Resp BP Pulse Ox 08/04/19 16:08 98.8 F 78 18 122/68 H 97 Inital Vital Signs reviewed: Yes General: Well nourished, Well developed, No Acute Distress Head: Normocephalic, Atraumatic Eyes: Perrl, EOMI ENT: Moist mucous membranes, No rhinorrhea Neck: Supple, Nontender Cardiovascular: Regular rate, Regular rhythm, No murmurs Respiratory: No distress, CTA bilaterally, Chest nontender Abdomen: Soft, Nontender, Nondistended, Normal bowel sounds Back: Nontender, Normal Inspection Extremities: - - Left [id number] amputation. Right lower extremity patient has diffuse chronic appearing wounds. He has significant wounds on his right calf approximately 15cm x 5 cm. Patient has additional chronic appearing wounds on his right lateral foot and heel. There is an odorous and purulent discharge associated with some. Skin: Rash - See above, - - Erythema and warmth of the right foot up to the mid ray, associated tenderness palpation Neurological: Alert, Oriented x3, Cranial nerves II-XII grossly intact, Normal Strength, Normal Sensation Psychological: Normal affect, Normal Mood Diagnostic/Tx/Re-eval Clinical Impression(s) from Imaging Studies Foot X-Ray 08/04/19 16:50 IMPRESSION: Extensive soft tissue swelling. Possible osteomyelitis. Electronically Signed: Thanh Ye DO at 18:07 EST Tel , Service support , Laboratory Data 08/04/19 08/04/19 08/04/19 16:00 16:00 16:00 WBC 11.2 H RBC 3.96 L Hgb 10.4 L Hct 33.8 L MCV 85.4 MCH 26.3 L MCHC 30.8 L RDW Std Deviation 51.6 H RDW Coeff of Reinier 16.7 H Plt Count 411 MPV 10.4 Immature Gran % (Auto) 0.400 Neut % (Auto) 72.8 H Lymph % (Auto) 15.7 L [place] % (Auto) 10.0 Eos % (Auto) 0.8 Baso % (Auto) 0.3 Absolute Neuts (auto) 8.2 H Absolute Lymphs (auto) 1.76 Nucleated RBC % 0 ESR 51 H PT 17.6 H INR 1.5 APTT 40.2 H Sodium 140 Potassium 3.5 Chloride 105 Carbon Dioxide 28.0 Anion Gap 7 BUN 20 H Creatinine 0.88 Estim Creat Clear Calc 79.45 Est GFR (MDRD) Af Amer 108 Est GFR (MDRD) Non-Af 90 BUN/Creatinine Ratio 22.8 H Glucose 90 Lactic Acid Calcium 8.7 Total Bilirubin 0.60 AST 44 H ALT 24 Alkaline Phosphatase 67 C-React Prot Ext Range 113.00 H Total Protein 7.6 Albumin 2.5 L Globulin 5.1 H Albumin/Globulin Ratio 0.5 L Urine Color Urine Clarity Urine pH Ur Specific [place] Urine Protein Urine Glucose (UA) Urine Ketones Urine Occult Blood Urine Nitrite Urine Bilirubin Urine Urobilinogen Ur Leukocyte Esterase Urine RBC Urine WBC Ur Squamous Epith Cells Amorphous Sediment Urine Bacteria Hyaline Casts Urine Mucus 08/04/19 08/04/19 16:00 18:43 WBC RBC Hgb Hct MCV MCH MCHC RDW Std Deviation RDW Coeff of Reinier Plt Count MPV Immature Gran % (Auto) Neut % (Auto) Lymph % (Auto) [place] % (Auto) Eos % (Auto) Baso % (Auto) Absolute Neuts (auto) Absolute Lymphs (auto) Nucleated RBC % ESR PT INR APTT Sodium Potassium Chloride Carbon Dioxide Anion Gap BUN Creatinine Estim Creat Clear Calc Est GFR (MDRD) Af Amer Est GFR (MDRD) Non-Af BUN/Creatinine Ratio Glucose Lactic Acid 1.4 Calcium Total Bilirubin AST ALT Alkaline Phosphatase C-React Prot Ext Range Total Protein Albumin Globulin Albumin/Globulin Ratio Urine Color Yellow Urine Clarity Sl. Cloudy Urine pH 5.0 Ur Specific [place] 1.025 Urine Protein 30 H Urine Glucose (UA) Normal Urine Ketones 5 H Urine Occult Blood 25 H Urine Nitrite Negative Urine Bilirubin 1 H Urine Urobilinogen 1 H Ur Leukocyte Esterase 25 H Urine RBC 0-5 SEEN Urine WBC 0-5 SEEN Ur Squamous Epith Cells 0-5 SEEN Amorphous Sediment 1+ URATE Urine Bacteria 0 SEEN Hyaline Casts 0-5 SEEN Urine Mucus RARE - Medical Decision Making Patient is evaluated for worsening pain, redness and drainage from his right foot. He has multiple chronic wounds and is in wound care for. Patient's presentation is concerning for cellulitis. X-ray shows findings concerning for osteomyelitis. Lactate is normal. He is tachycardic in the emergency room but I suspect it is more from his chronic atrial fibrillation he is due for his metoprolol shortly. He is given IV fluids in the emergency room. White blood cell count is mildly elevated he has significantly elevated ESR and CRP. Patient started on vancomycin and Rocephin in the emergency room. He will be admitted for further management of cellulitis and possible osteomyelitis of the right lower extremity. He is agreeable with this plan. He is hemodynamically stable for the general medical floor at time of disposition. ED Disposition - Plan for ED Patient: Disposition: Acute Care Hospital [facility] Diagnosis: Osteomyelitis of foot, right, acute, Cellulitis of right leg, Sepsis
[2019-08-04 17:16] LABS: Absolute Lymphocyte Count 1.76 X10^3/uL (0.83-4.51); Absolute Neutrophil Count 8.2 X10^3/uL (2.0-7.7); Basophil# 0.03 X10^3/uL; Basophil% 0.3 % (0-1); Eosinophil# 0.09 X10^3/uL; Eosinophils% 0.8 % (0-5); Hematocrit 33.8 % (40-54); Hemoglobin 10.4 g/dL (13.0-16.5); Lymphocyte # 1.76 X10^3/ul (4.0); Lymphocyte % 15.7 % (19-41); Mean Corp Hgb Conc 30.8 g/dL (32-36); Mean Corpuscular Hgb 26.3 pg (27.0-32.0); Mean Corpuscular Volume 85.4 fL (80-94); Mean Platelet Vol. 10.4 fl (6.2-12.0); Monocyte# 1.12 X10^3/uL; NRBC Flagged by Analyzer 0 % (0-5); Neutrophil # 8.16 X10^3/uL (2.7-7.7); Neutrophil % 72.8 % (47-70); Platelet Count 411 K/mm3 (150-450); RBC Distribution Width CV 16.7 % (11.6-14.6); RBC Distribution Width SD 51.6 fl (35.1-43.9); Red Blood Count 3.96 M/mm3 (4.6-6.2); White Blood Count 11.2 K/mm3 (4.4-11.0)
[2019-08-04 17:20] LABS: International Normalized Ratio 1.5; Prothrombin Time (Protime)PT. 17.6 SECONDS (11.7-14.9)
[2019-08-04 17:21] LABS: Partial Thromboplast Time 40.2 Seconds (24.1-36.2)
[2019-08-04 17:23] LABS: ALB/GLOB Ratio 0.5 RATIO (0.9-2.4); AST(SGOT) 44 U/L (15-37); Alanine Aminotransfer ALT/SGPT 24 U/L (16-61); Albumin, Serum 2.5 g/dL (3.2-5.0); Alkaline Phosphatase 67 U/L (45-117); Anion Gap 7 (5-15); BUN 20 mg/dL (7-18); BUN/Creat Ratio 22.8 RATIO (10-20); Calcium,Total 8.7 mg/dL (8.5-10.1); Chloride 105 mmol/L (98-107); Creatinine, Serum 0.88 mg/dL (0.70-1.30); EST Glomerular Filtration Rate 90 mL/min (>60); Est Glom Filt Rate - Afr Amer 108 mL/min (>60); Estimated Creatinine Clearance 79.45 ml/min; Globulin 5.1 g/dL (2.2-4.2); Glucose 90 mg/dL (74-106); Lactic Acid 1.4 mmol/L (0.4-2.0); Potassium 3.5 mmol/L (3.5-5.1); Protein, Total 7.6 g/dL (6.4-8.2); Sodium Level 140 mmol/L (136-145)
[2019-08-04 17:40] LABS: Erythrocyte Sedimentation Rate 51 mm/hr (0-20)
--- NOTE | 2019-08-04 17:51 | ED.RN ---
Pt took his own Tramadol 50mg. Dr Jones aware, and approved.
[2019-08-04 18:47] LABS: Bacteria 0 SEEN /hpf (None Seen)
[2019-08-04 18:48] LABS: Color, Urine Yellow (Yellow); Glucose, Dipstick Normal (Normal); Ketone-Dipstick 5 mg/dl (Negative); Leukocyte Esterase-Dipstick 25 /ul (Negative); Nitrite-Dipstick Negative (Negative); Occult Blood-Urine 25 /ul (Negative); Protein-Dipstick 30 mg/dl (Negative); Specific Gravity, Urine 1.025 (1.002-1.030); Urine Clarity Sl. Cloudy (Clear); Urine Urobilinogen 1 mg/dl (Normal)
[2019-08-04 18:58] LABS: Urine Bilirubin Dipstick 1 mg/dL (Negative)
[2019-08-04 18:59] LABS: Red Blood Cells-Urine 0-5 SEEN /hpf (0-5); White Blood Cells 0-5 SEEN /hpf (0-5)
[2019-08-04 19:00] LABS: Amorphous Sediment 1+ URATE; Hyaline Cast 0-5 SEEN /lpf (0-5); Mucous, Urine RARE /hpf (<or=2+); Squamous Epithelial Cells - UA 0-5 SEEN /hpf (0-5)
[2019-08-04] MEDS: 0.9% Normal Saline 1,000 ML 999 ML IV (19:47)
--- NOTE | 2019-08-04 19:50 | HP.PCM_ITS ---
Problem List (1) Cellulitis of right leg Status: Acute (2) Sepsis Status: Acute History of Present Illness Date of Admission: 08/04/19 Chief Complaint: right leg erythema The patient is a 78 year old M who was in his normal state of health up until 3 days ago when he started developing erythema of his right foot and leg. Progressively got worse and was more painful. Presented to the emergency room and was noted to have wounds over his right anterior ray, right MTP and right lateral foot. X-ray was showing cellulitis and concerning for osteomyelitis. Patient was also tachycardic and septic. Patient received IV fluids and I will receive a vancomycin and Pipracil and/tazobactam. [] Past Medical History Past Medical History (Chronic Problems): Chronic Problems (Last Updated 06/13/19 @ 11:55 by ELLY Jc) Other specified peripheral vascular diseases (Chronic) Failure to thrive (Chronic) Knee contracture (Chronic) Ulcer of right foot with fat layer exposed (Chronic) Malnutrition (Chronic) Contracture of knee joint (Chronic) Pressure ulcer, heel, right, unstageable (Chronic) Alcohol abuse (Chronic) Essential hypertension (Chronic) 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) Venous insufficiency (Chronic) CKD (chronic kidney disease) stage 3, GFR 30-59 ml/min (Chronic) Anemia (Chronic) Delayed wound healing (Chronic) Nonischemic cardiomyopathy (Chronic) Chronic systolic CHF (congestive heart failure) (Chronic) Neuropathic pain, leg, 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) Medical History: Medical History (Last Reviewed 08/04/19 @ 19:52 by Kendall Modi DO) Essential hypertension (Chronic) I10 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) L97.912 Venous insufficiency (Chronic) I87.2 CKD (chronic kidney disease) stage 3, GFR 30-59 ml/min (Chronic) N18.3 Anemia (Chronic) D64.9 Delayed wound healing (Chronic) T14.8XXD Nonischemic cardiomyopathy (Chronic) I42.8 Chronic systolic CHF (congestive heart failure) (Chronic) I50.22 Chronic atrial fibrillation (Acute) I48.2 with RVR BPH loc w/o ur obs/LUTS N40.0 Allergies codeine Adverse Reaction (Verified 08/04/19 16:11) Nausea Home Medications: Ambulatory Orders Medication Instructions Recorded Apixaban [Eliquis] 5 mg PO BID 05/24/17 Collagenase [Santyl] 1 applic TOPICAL DAILY #1 tube 04/20/19 furosemide 20 mg tablet 20 mg PO DAILY 06/10/19 traMADol [Ultram] 1 tab PO Q6H PRN PRN 06/10/19 Metoprolol Tartrate [Lopressor 50 mg PO BID 08/04/19 (beta sumanth)] Surgical History: Surgical History (Last Reviewed 08/04/19 @ 19:52 by Kendall Modi DO) History of left above knee amputation Onset Date: ~10/03/18 Z89.612 History of appendectomy Onset Date: ~1994 Z90.49 History of tonsillectomy Z90.89 Surgical History: appendectomy, herniorrhaphy, - - Hand surgery. left AKA Psychiatric History: No pertinent psych hx Lives: Spouse/ Significant Other Smoking Status: Former smoker - *Family History Maternal Family History: Family History (Last Reviewed 08/04/19 @ 19:52 by Kendall Modi DO) Mother Alzheimers disease Grandmother Alzheimers disease Brother Cancer History Items: Dementia Paternal Family History: Family History (Last Reviewed 08/04/19 @ 19:52 by Kendall Modi DO) Mother Alzheimers disease Grandmother Alzheimers disease Brother Cancer History Items: - - venous ulcers Review of Systems Constitutional: Denies: Anorexia, Chills, Fever, Night Sweats Eyes: Denies: Blurred vision, Double vision HEENT: Denies: Head Aches, Sinus Congestion, Sinus Drainage Cardiovascular: Denies: Chest Pain, Palpitations Respiratory: Denies: Cough, Shortness of breath at rest, Sputum production Gastrointestinal: Denies: Abdominal Pain, Nausea, Vomiting Genitourinary: Denies: Dysuria Musculoskeletal: Denies: Joint Pain, Joint Tenderness Skin: Reports: Rash, Wounds Neurological: Denies: Numbness, Tingling, Focal weakness Psychiatric: Denies: Anxiety, Depression Endocrine: Reports: Change in Body Habitus - Is lost about 100 pounds since October Hematologic/ Lymphatic: Denies: Easy Bruising, Easy Bleeding, Hx of blood clot Comment: All review of systems are negative except for as mentioned above and in the HPI. VTE Information - Inpt Only VTE Present on Admission: No VTE Mechan Device Prophylaxis: None VTE Pharm Prophylaxis ordered?: No Reason prophylaxis not ordered:: Procedure Not Indicated Patient Problems: Active and Suspected Problems (Last Updated 06/13/19 @ 11:55 by ELLY Jc) Sepsis (Acute) - Physical Exam Vitals/I&O's: Vital Signs Temp Pulse Resp BP Pulse Ox 37.6 C H 132 H 13 103/78 99 08/04/19 19:00 08/04/19 19:47 08/04/19 19:47 08/04/19 19:47 08/04/19 19:47 Oxygen Delivery Method Room Air Weight: 80 kg Body Mass Index (BMI) 23.2 General: Alert, Oriented x3, No apparent distress HEENT: Atraumatic, Normocephalic, - - No icterus Oral: Moist Mucosa, - - poor dentition Neck: No Nodes, Trachea Midline Lungs: Clear to auscultation, Normal air movement, No rhonchi, No wheeze, No rales Cardiovascular: Regular rate, Regular Rhythm, Normal S1, Normal S2, No murmurs Abdomen: Bowel Sounds Present, Soft, Non Tender, Non-Distended, No Hepato- splenomegaly Extremities: - - Left stump clean and intact. Edema of the right lower ex tremity. It is stuck in a flexion at the knee position at roughly 90 degrees. Is able to extend it somewhat to perhaps 80 degrees Skin: - - Erythema involving the right lower extremity. Patient has a large anterior ray wound on the right. Patient has a ulceration on the right MTP with some blistering of skin and ulceration on the right lateral foot. Musculoskeletal: Cachexia, - - Right knee stuck in a flexed position Neurological: - - In the sensation of the right lower extremity. Unable to check a patellar reflex of the right lower extremity given the flexed position. Psych/Mental Status: Normal Affect, Appropriate, - - She provides a lot of not pertinent details to his overall condition such as naming specific physical therapist that has seen him in the past and specific dates when therapist of seeing him. Laboratory Results 08/04/19 16:00: WBC 11.2 H, RBC 3.96 L, Hgb 10.4 L, Hct 33.8 L, MCV 85.4, MCH 26.3 L, MCHC 30.8 L, RDW Std Deviation 51.6 H, RDW Coeff of Reinier 16.7 H, Plt Count 411, MPV 10.4, Immature Gran % (Auto) 0.400, Neut % (Auto) 72.8 H, Lymph % (Auto) 15.7 L, [place] % (Auto) 10.0, Eos % (Auto) 0.8, Baso % (Auto) 0.3, Absolute Neuts (auto) 8.2 H, Absolute Lymphs (auto) 1.76, Nucleated RBC % 0, ESR 51 H 08/04/19 16:00: PT 17.6 H, INR 1.5, APTT 40.2 H 08/04/19 16:00: Sodium 140, Potassium 3.5, Chloride 105, Carbon Dioxide 28.0, Anion Gap 7, BUN 20 H, Creatinine 0.88, Estim Creat Clear Calc 79.45, Est GFR (MDRD) Af Amer 108, Est GFR (MDRD) Non-Af 90, BUN/Creatinine Ratio 22.8 H, Glucose 90, Calcium 8.7, Total Bilirubin 0.60, AST 44 H, ALT 24, Alkaline Phosphatase 67, C-React Prot Ext Range 113.00 H, Total Protein 7.6, Albumin 2.5 L, Globulin 5.1 H, Albumin/Globulin Ratio 0.5 L 08/04/19 16:00: Lactic Acid 1.4 08/04/19 18:43: Urine Color Yellow, Urine Clarity Sl. Cloudy, Urine pH 5.0, Ur Specific [place] 1.025, Urine Protein 30 H, Urine Glucose (UA) Normal, Urine Ketones 5 H, Urine Occult Blood 25 H, Urine Nitrite Negative, Urine Bilirubin 1 H, Urine Urobilinogen 1 H, Ur Leukocyte Esterase 25 H, Urine RBC 0-5 SEEN, Urine WBC 0-5 SEEN, Ur Squamous Epith Cells 0-5 SEEN, Amorphous Sediment 1+ URATE, Urine Bacteria 0 SEEN, Hyaline Casts 0-5 SEEN, Urine Mucus RARE Clinical Impression(s) from Imaging Studies Foot X-Ray 08/04/19 16:50 IMPRESSION: Extensive soft tissue swelling. Possible osteomyelitis. Electronically Signed: Thanh Ye DO at 18:07 EST Tel , Service support , Current Medications Sodium Chloride () 1,000 mls @ 999 mls/hr IV .Q1H1M ONE Stop: 08/04/19 20:10 Last Admin: 08/04/19 19:47 Dose: 999 mls/hr Documented by: Vancomycin IV Pharmacy to Dose (1 ea/ Sodium Chloride) 500 mls @ 250 mls/hr IV PRN PRN; Protocol PRN Reason: Rx to Dose Vancomycin HCl 1,250 mg/ (Sodium Chloride) 275 mls @ 167 mls/hr IV X1 ONE Stop: 08/04/19 21:08 Assessment/Plan All Active Problems (Last Updated 06/13/19 @ 11:55 by Ana Smith, CARLOS-C) Sepsis (Acute) Cellulitis of right leg (Acute) Chronic atrial fibrillation (Acute) 1. Sepsis * Present on admission * Secondary cellulitis * Supportive management 2. Right lower extremity cellulitis * Unclear of the nidus of this cellulitis, could involve the lesions on his foot or on his ray * Mention of osteomyelitis on x-ray of his foot so we will check a CAT scan. Preferably like to check an MRI but patient is unable to extend his knee and has tried MRIs before and been unable to do so. * Continue with piperacillin/tazobactam and vancomycin * Consult wound care as well as podiatry * Check ankle brachial index * Patient has had a amputation of his left lower extremity due to similar circumstances in the past. That surgery was performed at [facility] by Dr. Dionne Cole 3. Tachycardia * Sinus * Likely exacerbated by the patient's underlying sepsis at this time * Resume metoprolol and monitor on telemetry 4. Atrial fibrillation * Appears to be in sinus tach at this time * Continue with metoprolol as well as apixaban 5. VTE prophylaxis: Low risk as patient is already anticoagulated. 6. Advanced care planning: Discussed with the patient. Patient wants to be full CODE STATUS at this time. Code Visit Inpatient E&M: 13560 Init Hosp L3
--- NOTE | 2019-08-04 20:43 | CT_ITS ---
STUDY: RIGHT FOOT/ANKLE CT SCAN WITH CONTRAST REASON FOR EXAM: Male, 78 years old. Cellulitis. Osteomyelitis. RADIATION DOSAGE (If Supplied By Facility): CTDIvol = ( 15.35 ) mGy, DLP = ( 653.11 ) mGycm. Individualized dose optimization techniques were used for this CT.? TECHNIQUE: Axial multidetector CT scan of the right lower extremity. Coronal and sagittal reformatted images. Postcontrast evaluation with 100 mL Isovue-370. COMPARISON: April 18, 2019. FINDINGS: Distal tibia intact. Distal fibula intact. Talus intact. Calcaneus intact. Navicular intact. Cuboid intact. Cuneiforms intact. First through fifth metatarsals intact. First proximal phalanx intact. First distal phalanx intact. Second through fifth digits intact. Mild joint space narrowing at the distal interphalangeal joints with hammertoes. Small plantar spur. Mild subtalar joint arthrosis. Osteopenia. Diffuse soft tissue swelling with faint enhancement, ulceration and soft tissue gas adjacent the first metatarsophalangeal joint (coronal image 67 series 601). Additional structure at the anterior mid leg (axial image 25 series 3). No discrete abscess identified. Extensor tendons appear intact. Posterior tibialis and flexor tendons appear intact. Peroneus tendons appear intact. Achilles tendon appears intact. CT/Extremity Lower WITH Contrast IMPRESSION: No acute osteomyelitis or abscess Diffuse right lower extremity cellulitis with ulcers Mild osteoarthritis with osteopenia Electronically Signed: Kendall Chu DO at 22:48 EST Tel , Service support ,
--- NOTE | 2019-08-04 20:43 | ART_ITS ---
Reason For Study: Right leg ulcer Procedure A bilateral lower extremity continuous wave Doppler with analog waveform analysis and ankle brachial indexes. Left Segmental Pressures Left brachial= 100mmHg. Right Segmental Pressures Right brachial= 99mmHg. Right dorsalis pedis artery = 53mmHg. The right dorsalis pedis waveforms are monophasic. Indices The right ankle brachial index by the dorsalis pedis is 0.53. Interpretation Summary Limited examination secondary to placement of bandages. Right posterior tibial artery could not be interrogated. Abnormal right DP ankle-brachial index of 0.53 with monophasic waveform consistent with moderately severe disease. The index and waveform closer to the severe level. It appears that the right digital brachial index was not obtainable in the right digital PPG is markedly flattened. Ordering Physician: Kendall Modi Referring Physician: Phoebe Daniels M.D. Performed By: Aliya Rascon RVT
--- NOTE | 2019-08-04 21:20 | PCM.RX.CS ---
Consult Pharmacy has been consulted to manage selected antiobiotic: Vancomycin Type of Consult: New start Suspected Infection: Skin/Soft tissue Prior Doses of Antibiotics Received/Current Regimen: Medications Vancomycin HCl 750 mg/ Sodium (Chloride) 265 mls @ 250 mls/hr IV Q12H HALEY Discontinued Medications Vancomycin HCl 1,250 mg/ (Sodium Chloride) 275 mls @ 167 mls/hr IV X1 ONE Stop: 08/04/19 21:08 Last Admin: 08/04/19 21:00 Dose: 0 mls/hr Labs: Sodium 140 mmol/L (136-145) 08/04/19 16:00 Potassium 3.5 mmol/L (3.5-5.1) 08/04/19 16:00 Chloride 105 mmol/L (98-107) 08/04/19 16:00 Carbon Dioxide 28.0 mmol/L (21.0-32.0) 08/04/19 16:00 Anion Gap 7 (5-15) 08/04/19 16:00 BUN 20 mg/dL (7-18) H 08/04/19 16:00 Creatinine 0.88 mg/dL (0.70-1.30) 08/04/19 16:00 Est GFR (MDRD) Af Amer 108 mL/min (>60) 08/04/19 16:00 Est GFR (MDRD) Non-Af 90 mL/min (>60) 08/04/19 16:00 BUN/Creatinine Ratio 22.8 RATIO (10-20) H 08/04/19 16:00 Glucose 90 mg/dL (74-106) 08/04/19 16:00 Weight used for dosin.5 kg Estimated Creatinine Clearance: 79 Goal Trough: 10-15 mcg/mL Pharmacy Plan for Drug Dosing: Pharmacy Service will continue to monitor and adjust dosing as required. Follow-Up Labs: Trough Vancomycin Labs to be done on [date and time ordered]: 08/06/19 @0800
[2019-08-04] MEDS: Metoprolol Tartrate 50 MG Tablet PO (22:04)
[2019-08-04] MEDS: APIXABAN 5 MG TABLET PO (22:04)
[2019-08-04] MEDS: Collagenase 30gm Tube 1 APPLIC TOPICAL (22:05)
[2019-08-04] MEDS: 0.9% Saline Lock 10 ML Syringe IV (22:06)
[2019-08-05] VITALS (11 sets, daily range): BP systolic 98–117; BP diastolic 55–62; PULSE 94–119; RESP 18–22; TEMP 37.1–38.7; O2SAT 94–95
[2019-08-05 01:15] LABS: Probe Check PASS; Staph aureus DNA By PCR POSITIVE (Negative)
[2019-08-05 01:17] LABS: M R Staph aureus DNA By PCR POSITIVE (Negative)
[2019-08-05] MEDS: Acetaminophen 325 MG Tablet 650 MG PO (03:14)
[2019-08-05 06:16] LABS: Absolute Lymphocyte Count 0.64 X10^3/uL (0.83-4.51); Absolute Neutrophil Count 9.2 X10^3/uL (2.0-7.7); Basophil# 0.02 X10^3/uL; Basophil% 0.2 % (0-1); Eosinophil# 0.12 X10^3/uL; Eosinophils% 1.2 % (0-5); Hematocrit 26.1 % (40-54); Hemoglobin 8.2 g/dL (13.0-16.5); Lymphocyte # 0.64 X10^3/ul (4.0); Lymphocyte % 6.1 % (19-41); Mean Corp Hgb Conc 31.4 g/dL (32-36); Mean Corpuscular Hgb 26.5 pg (27.0-32.0); Mean Corpuscular Volume 84.2 fL (80-94); Mean Platelet Vol. 9.9 fl (6.2-12.0); Monocyte# 0.43 X10^3/uL; Monocyte% 4.1 % (0-10); NRBC Flagged by Analyzer 0 % (0-5); Neutrophil # 9.17 X10^3/uL (2.7-7.7); Platelet Count 327 K/mm3 (150-450); RBC Distribution Width CV 16.8 % (11.6-14.6); RBC Distribution Width SD 51.8 fl (35.1-43.9); White Blood Count 10.4 K/mm3 (4.4-11.0)
[2019-08-05 06:35] LABS: Anion Gap 8 (5-15); BUN 18 mg/dL (7-18); BUN/Creat Ratio 25.6 RATIO (10-20); Calcium,Total 8.3 mg/dL (8.5-10.1); Chloride 108 mmol/L (98-107); EST Glomerular Filtration Rate 115 mL/min (>60); Est Glom Filt Rate - Afr Amer 140 mL/min (>60); Estimated Creatinine Clearance 65.19 ml/min; Glucose 100 mg/dL (74-106); Potassium 3.6 mmol/L (3.5-5.1); Sodium Level 140 mmol/L (136-145)
[2019-08-05] MEDS: Metoprolol Tartrate 50 MG Tablet PO ×2 (09:40→14:36)
[2019-08-05] MEDS: APIXABAN 5 MG TABLET PO (09:40)
[2019-08-05] MEDS: Collagenase 30gm Tube 1 APPLIC TOPICAL (09:41)
--- NOTE | 2019-08-05 09:56 | NURSING ---
wound photo: right plantar/medial foot
--- NOTE | 2019-08-05 09:57 | NURSING ---
wound photo: right heel/posterior leg/lat foot
--- NOTE | 2019-08-05 10:02 | NURSING ---
wound photo: right ray
--- NOTE | 2019-08-05 10:04 | NURSING ---
wound photo: right posterior thigh
[2019-08-05] MEDS: Metoprolol Tartrate 25 MG Tablet PO (11:41)
--- NOTE | 2019-08-05 12:23 | CON.PCM_ITS ---
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 (2) Cellulitis of right leg Status: Acute (3) Other specified peripheral vascular diseases Status: Chronic (4) Failure to thrive Status: Chronic Qualifiers: (5) Knee contracture Status: Chronic (6) Ulcer of right foot with fat layer exposed Status: Chronic (7) Malnutrition Status: Chronic (8) Pressure ulcer, heel, right, unstageable Status: Chronic (9) Venous insufficiency Status: Chronic (10) Delayed wound healing Status: Chronic Reason for Consult Date of Consultation: 08/05/19 Reason for Consultation: Ulcers of right lower leg and foot with cellulitis History of Present Illness: The patient is a 78 year old M is known to Dr. Cleary who has been following him for his lower extremity ulcers of his right lower extremity at the [facility]. Patient relates that 3 days ago he started noticing some redness and increasing tenderness/pain to his right foot and lower leg. Patient states this was slowly getting worse and he presented to the emergency room last evening where he was admitted for these issues. Patient has ulcers to right foot, right heel, and right lower extremity. Patient was very agitated during his exam today and stated multiple times that he wanted to mariza someone for his negligent treatment in the past. Patient shouting loudly multiple times and his told him multiple times to calm down and relax. The patient currently denies any feelings of nausea, vomiting, fever, chills. [] Past Medical History Past Medical History (Chronic Problems): Chronic Problems (Last Reviewed 08/04/19 @ 19:52 by Kendall Modi DO) Other specified peripheral vascular diseases (Chronic) Failure to thrive (Chronic) Knee contracture (Chronic) Ulcer of right foot with fat layer exposed (Chronic) Malnutrition (Chronic) Contracture of knee joint (Chronic) Pressure ulcer, heel, right, unstageable (Chronic) Alcohol abuse (Chronic) Essential hypertension (Chronic) 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) Venous insufficiency (Chronic) CKD (chronic kidney disease) stage 3, GFR 30-59 ml/min (Chronic) Anemia (Chronic) Delayed wound healing (Chronic) Nonischemic cardiomyopathy (Chronic) Chronic systolic CHF (congestive heart failure) (Chronic) Neuropathic pain, leg, 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) Medical History: Medical History (Last Reviewed 08/04/19 @ 19:52 by Kendall Modi DO) Essential hypertension (Chronic) I10 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) L97.912 Venous insufficiency (Chronic) I87.2 CKD (chronic kidney disease) stage 3, GFR 30-59 ml/min (Chronic) N18.3 Anemia (Chronic) D64.9 Delayed wound healing (Chronic) T14.8XXD Nonischemic cardiomyopathy (Chronic) I42.8 Chronic systolic CHF (congestive heart failure) (Chronic) I50.22 Chronic atrial fibrillation (Acute) I48.2 with RVR BPH loc w/o ur obs/LUTS N40.0 Allergies codeine Adverse Reaction (Verified 08/04/19 16:11) Nausea Home Medications: Ambulatory Orders Medication Instructions Recorded Apixaban [Eliquis] 5 mg PO BID 05/24/17 Collagenase [Santyl] 1 applic TOPICAL DAILY #1 tube 04/20/19 furosemide 20 mg tablet 20 mg PO DAILY 06/10/19 traMADol [Ultram] 1 tab PO Q6H PRN PRN 06/10/19 Metoprolol Tartrate [Lopressor 50 mg PO BID 08/04/19 (beta min)] Surgical History: Surgical History (Last Reviewed 08/04/19 @ 19:52 by Kendall Modi DO) History of left above knee amputation Onset Date: ~10/03/18 Z89.612 History of appendectomy Onset Date: ~1994 Z90.49 History of tonsillectomy Z90.89 Surgical History: appendectomy, herniorrhaphy, - - Hand surgery. left AKA Psychiatric History: No pertinent psych hx Lives: Spouse/ Significant Other Smoking Status: Current some day smoker Tobacco Use: Cigars - *Family History Maternal Family History: Family History (Last Reviewed 08/04/19 @ 19:52 by Kendall Modi DO) Mother Alzheimers disease Grandmother Alzheimers disease Brother Cancer History Items: Dementia Paternal Family History: Family History (Last Reviewed 08/04/19 @ 19:52 by Kendall Modi DO) Mother Alzheimers disease Grandmother Alzheimers disease Brother Cancer History Items: - - venous ulcers Review of Systems Constitutional: Denies: Chills, Fever Eyes: Denies: Blurred vision, Double vision HEENT: Denies: Head Aches, Sinus Congestion, Sinus Drainage Cardiovascular: Denies: Chest Pain, Palpitations Respiratory: Denies: Cough, Shortness of breath at rest, Sputum production Gastrointestinal: Denies: Abdominal Pain, Nausea, Vomiting Musculoskeletal: Reports: Leg Pain Skin: Reports: - - Ulcers to right lower extremity Psychiatric: Denies: Anxiety, Depression Hematologic/ Lymphatic: Denies: Easy Bruising, Easy Bleeding Patient Problems: Active and Suspected Problems (Last Reviewed 08/04/19 @ 19:52 by Kendall Modi DO) Sepsis (Acute) Osteomyelitis of foot, right, acute (Acute) Cellulitis of right leg (Acute) - Physical Exam Vitals/I&O's: Vital Signs Temp Pulse Resp BP Pulse Ox 98.8 F 112 H 22 H 98/55 L 94 08/05/19 08:23 08/05/19 11:41 08/05/19 08:33 08/05/19 08:23 08/05/19 08:33 Oxygen Delivery Method Room Air Weight: 74.5 kg Body Mass Index (BMI) 21.7 Intake and Output for Last 24 Hours 08/03/19 08/04/19 08/05/19 23:59 23:59 23:59 Intake Total 1325.00 / 1525.00 2379.5 / 2379.5 Balance 1325.00 / 1525.00 2379.5 / 2379.5 General: Alert, Oriented x3, No apparent distress Extremities: No cyanosis, Capillary Refill Less than 3 Seconds - to digits, Diminished Peripheral Pulses, Edema - right foot and lower leg, - - Right rigid knee contracture with knee esentially at 90 degrees. Left AKA noted. Skin: Ulcer/ Wound - Necrotic unstageable ulcer to the right heel with malodor noted to the area. Slight maceration to the distal edge. Ulcers also noted to the right medial foot, right lateral foot, as well as ulcers to the right lower extremity. All of these ulcers are noted to be down to fat layer except for the right medial foot ulcer where some tendon is visible. All of these bases are mixture of devitalized subcutaneous tissue, adherent slough, fibrotic tissue, biofilm, granular tissue. No nena purulence noted. There is no probing to bone, no tracking, no undermining. There is surrounding erythema to the foot and lower leg. Musculoskeletal: Tenderness - Some tenderness with manipulation of ulcer sites Neurological: Sensory exam intact to light touch and pain Psych/Mental Status: Normal Affect, Appropriate Microbiology Past 72 Hours 08/04/19 22:50 Ulcer, Decubitus - Leg, Right Gram Stain - Final Laboratory Results 08/04/19 16:00: WBC 11.2 H, RBC 3.96 L, Hgb 10.4 L, Hct 33.8 L, MCV 85.4, MCH 26.3 L, MCHC 30.8 L, RDW Std Deviation 51.6 H, RDW Coeff of Reinier 16.7 H, Plt Count 411, MPV 10.4, Immature Gran % (Auto) 0.400, Neut % (Auto) 72.8 H, Lymph % (Auto) 15.7 L, Galax % (Auto) 10.0, Eos % (Auto) 0.8, Baso % (Auto) 0.3, Absolute Neuts (auto) 8.2 H, Absolute Lymphs (auto) 1.76, Nucleated RBC % 0, ESR 51 H 08/04/19 16:00: PT 17.6 H, INR 1.5, APTT 40.2 H 08/04/19 16:00: Sodium 140, Potassium 3.5, Chloride 105, Carbon Dioxide 28.0, Anion Gap 7, BUN 20 H, Creatinine 0.88, Estim Creat Clear Calc 79.45, Est GFR (MDRD) Af Amer 108, Est GFR (MDRD) Non-Af 90, BUN/Creatinine Ratio 22.8 H, Glucose 90, Calcium 8.7, Total Bilirubin 0.60, AST 44 H, ALT 24, Alkaline Phosphatase 67, C-React Prot Ext Range 113.00 H, Total Protein 7.6, Albumin 2.5 L, Globulin 5.1 H, Albumin/Globulin Ratio 0.5 L 08/04/19 16:00: Lactic Acid 1.4 08/04/19 18:43: Urine Color Yellow, Urine Clarity Sl. Cloudy, Urine pH 5.0, Ur Specific Chaplin 1.025, Urine Protein 30 H, Urine Glucose (UA) Normal, Urine Ketones 5 H, Urine Occult Blood 25 H, Urine Nitrite Negative, Urine Bilirubin 1 H, Urine Urobilinogen 1 H, Ur Leukocyte Esterase 25 H, Urine RBC 0-5 SEEN, Urine WBC 0-5 SEEN, Ur Squamous Epith Cells 0-5 SEEN, Amorphous Sediment 1+ URATE, Urine Bacteria 0 SEEN, Hyaline Casts 0-5 SEEN, Urine Mucus RARE 08/04/19 22:50: S.aureus Protein A PCR POSITIVE H, MRSA (PCR) POSITIVE H 08/05/19 05:44: WBC 10.4, RBC 3.10 L, Hgb 8.2 L, Hct 26.1 L, MCV 84.2, MCH 26.5 L, MCHC 31.4 L, RDW Std Deviation 51.8 H, RDW Coeff of Reinier 16.8 H, Plt Count 327, MPV 9.9, Immature Gran % (Auto) 0.400, Neut % (Auto) 88.0 H, Lymph % (Auto) 6.1 L, Galax % (Auto) 4.1, Eos % (Auto) 1.2, Baso % (Auto) 0.2, Absolute Neuts (auto) 9.2 H, Absolute Lymphs (auto) 0.64 L, Nucleated RBC % 0 08/05/19 05:44: Sodium 140, Potassium 3.6, Chloride 108 H, Carbon Dioxide 24.0, Anion Gap 8, BUN 18, Creatinine 0.70, Estim Creat Clear Calc 65.19, Est GFR (MDRD) Af Amer 140, Est GFR (MDRD) Non-Af 115, BUN/Creatinine Ratio 25.6 H, Glucose 100, Calcium 8.3 L Current Medications Acetaminophen (Tylenol) 650 mg PO Q6H PRN PRN PRN Reason: Pain Score 1-3/Temp > 100.7 F Last Admin: 08/05/19 03:14 Dose: 650 mg Documented by: Apixaban (Eliquis) 5 mg PO BID [facility] Last Admin: 08/05/19 09:40 Dose: 5 mg Documented by: Collagenase (Santyl) 1 applic TOPICAL DAILY [facility]; Protocol Last Admin: 08/05/19 09:41 Dose: 1 applic Documented by: Dextrose (D50w Syringe) 0 gm IV X1 PRN; Protocol PRN Reason: Hypoglycemia Glucagon () 1 mg IM .X1 PRN PRN Reason: Hypoglycemia Vancomycin IV Pharmacy to Dose (1 ea/ Sodium Chloride) 500 mls @ 250 mls/hr IV PRN PRN; Protocol PRN Reason: Rx to Dose Piperacillin Sod/Tazobactam (Sod 3.375 gm/ Sodium Chloride) 50 mls @ 12.5 mls/hr IV Q8 [facility] Last Infusion: 08/05/19 09:41 Dose: Infused Documented by: Sodium Chloride () 250 mls @ 15 mls/hr IV .[id number] PRN PRN Reason: Saline Flush Last Infusion: 08/05/19 10:44 Dose: 15 mls/hr Documented by: Vancomycin HCl 750 mg/ Sodium (Chloride) 265 mls @ 250 mls/hr IV Q12H [facility] Last Infusion: 08/05/19 10:44 Dose: Infused Documented by: Melatonin (Melatonin) 3 mg PO QHS PRN PRN PRN Reason: INSOMNIA Metoprolol Tartrate (Lopressor (Beta Min)) 75 mg PO BID [facility] Nutritional Formula (Lactose Free) (Ensure Enlive) 120 ml PO 4X/DAY [facility] Last Admin: 08/05/19 09:40 Dose: 120 ml Documented by: Ondansetron HCl (Zofran) 4 mg IV Q8H PRN PRN PRN Reason: NAUSEA/VOMITING Oxycodone HCl (Oxyir) 5 mg PO Q4H PRN PRN PRN Reason: Pain Score 4-5/10 Oxycodone HCl (Oxyir) 10 mg PO Q4H PRN PRN PRN Reason: Pain Score 6-10/10 Sodium Chloride () 10 - 40 ml IV UD PRN PRN Reason: SALINE FLUSH Last Admin: 08/04/19 22:06 Dose: 10 ml Documented by: Tramadol HCl (Ultram) 50 mg PO Q6H PRN PRN PRN Reason: Pain Score 1-3/10 Assessment/Plan All Active Problems (Last Reviewed 08/04/19 @ 19:52 by Kendall Modi DO) Sepsis (Acute) Osteomyelitis of foot, right, acute (Acute) Cellulitis of right leg (Acute) Chronic atrial fibrillation (Acute) This 78-year-old male was consulted to podiatry for ulcers to the right lower leg as well as the right heel and foot. WBC is 10.4 today. ESR and CRP taken yesterday were both elevated. Patient is currently afebrile. Patient's leg u lcers were cultured yesterday and preliminary results are showing gram-positive cocci and gram-negative rods. Patient is currently on IV antibiotics and infectious disease has been consulted. The right lower extremity CT scan was read by radiologist as showing no acute osteomyelitis or abscess, diffuse right lower extremity cellulitis with ulcers, and mild arthrosis with osteopenia. Patient is unable to undergo MRI due to his rigid knee contracture. Patient's dressing was taken down and each ulcer site was carefully evaluated. A selective debridement was performed to the right medial foot ulcer removing devitalized subcutaneous tissue. No nena purulence appreciated to this site. The patient did get agitated during the exam multiple times yelling outbursts about suing different doctors. He relates that he is not trying to take it out on me, but he was frustrated. Patient is very hard to keep on track and keep on one subject. Patient states that his foot is sore enough and is not allowing me to debride any of his ulcer sites any further today. There is malodor noted most notably from the right heel ulcer. Slight maceration noted to this area with some very slight bogginess. This ulcer is unstageable due to the overlying eschar and this site. Again, patient would not allow me to fully evaluate this area. As has been discussed with him in the past by multiple other physicians, I again discussed the option of having a below-knee or above knee amputation with the patient's chronic ulcers as well as chronic hospitalizations on top of having a knee contracture which does not allow him to properly keep his ulcer sites offloaded. Patient states that he would much prefer to be transferred to [facility] and under the supervision of the surgeon that performed his left above-knee amputation. He relates that she is the best doctor is been around and she is the only one that he trusts. He relates that he would like her to evaluate him and to proceed forward with an above-knee amputation. Again, I made other suggestions such as more extensive bedside or operating room debridements, and patient is not interested in this at this time. I discussed all of the risks and potential benefits of this and patient relates that he understands and that he knows he is at risks for loss of limb or even loss of life in conjunction with foot/leg infection. A Betadine wet-to-dry dressing was applied to the patient's right heel and right medial foot ulcer sites. The remaining ulcer sites were then dressed with Santyl to the base followed by dry sterile dressing. This was done with assistance of Tasneem Arreola. The importance of keeping all these ulcer sites offloaded was discussed in great detail again with this patient. He says that he understands this, but says that it is impossible with his knee contracture. I discussed this case in detail with Dr. Granger and related that the patient wishes to be transferred to [facility]. Continued medical management and DVT prophylaxis appreciated per primary team. Podiatry will continue to follow this patient while in house.
[2019-08-05] MEDS: traMADol 50 MG Tablet PO (12:36)
--- NOTE | 2019-08-05 12:43 | NURSING ---
Dr Diana had been in to see patient. Did some debridement to the medial/plantar foot wound. is recommending further debridement, but patient is refusing for surgery to be done here. pt states the only person he will let operate on him is Dr Cole at [facility] who performed his other amputation. Dr Diana talked with hospitalist Dr Granger about transfer. had been present and questions were answered by Dr Diana.
--- NOTE | 2019-08-05 12:46 | CASEMGMT ---
Social Work Note Per internal revenue service agent questions, pt has completed HCPOA and LW but not provided copy to [facility] and is not able to bring in copies. Aliya Niño COORDINATOR VOLUNTEER SERVICES, MANAGER LOCATION
--- NOTE | 2019-08-05 12:47 | CASEMGMT ---
Social Work Note Per wire weaver cloth questions, pt has completed HCPOA and LW but not provided copy to [facility] and is not able to bring in copies. Aliya Niño PIANO MAKER, REAL ESTATE CLOSING COORDINATOR
--- NOTE | 2019-08-05 13:51 | DS.PCM_ITS ---
Discharge Date and Diagnosis Date of Admission: 08/04/19 Date of Discharge: 08/05/19 - Primary Discharge Diagnosis Active and Suspected Problems (Last Reviewed 08/04/19 @ 19:52 by Kendall Modi DO) Sepsis (Acute) Osteomyelitis of foot, right, acute (Acute) Cellulitis of right leg (Acute) - Secondary Discharge Diagnosis Chronic Problems (Last Reviewed 08/04/19 @ 19:52 by Kendall Modi DO) Other specified peripheral vascular diseases (Chronic) Failure to thrive (Chronic) Knee contracture (Chronic) Ulcer of right foot with fat layer exposed (Chronic) Malnutrition (Chronic) Contracture of knee joint (Chronic) Pressure ulcer, heel, right, unstageable (Chronic) Alcohol abuse (Chronic) Essential hypertension (Chronic) 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) Venous insufficiency (Chronic) CKD (chronic kidney disease) stage 3, GFR 30-59 ml/min (Chronic) Anemia (Chronic) Delayed wound healing (Chronic) Nonischemic cardiomyopathy (Chronic) Chronic systolic CHF (congestive heart failure) (Chronic) Neuropathic pain, leg, 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) Hospital Course and Treatment Consultations 08/04/19 20:43 Consult: Onc/Wound/adult health clinical nurse specialist Routine Comment: Operations: None Summary of Care Provided: The patient is a 78 year old M with history of peripheral neuropathy, left above-knee amputation was admitted with right lower leg erythema and multiple ulcer below knee level. X-ray showed cellulitis and concerning for osteomyelitis. Patient was tachycardic, febrile. She was further admitted on MedSur floor with IV fluids, vancomycin and Zosyn. Field Case Manager was consulted. His opinion was right lower leg multiple ulceration with deep tissue infection with necrotic tissue. Patient could not have MRI because of contracture of left lower leg. Left lower extremity CT was done which shows no acute osteomyelitis or abscess but diffuse right lower extremity cellulitis with ulcers, mild osteoarthritis with osteopenia. Field Case Manager Dr.Jack Phelps debridement with removal of devitalized subcutaneous tissue. No nena purulence was noticed. Patient gets often agitated. He recommended amputation left above-knee amputation for multiple nonhealing, necrotic ulcer with neuropathy history. Patient wants to be transferred to [facility] where previous right above-knee amputation was performed by Dr. Dionne Cole. [facility] was called and patient accepted by hospitalist and transferred with orthopedic surgeon consult Dr. Dionne Cole. Clinical Impression(s) from Imaging Studies Foot X-Ray 08/04/19 16:50 IMPRESSION: Extensive soft tissue swelling. Possible osteomyelitis. 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 Mild tachycardia, heart rate in 100-100 tenths. Blood pressure 108/55. Shunt has contracture of the right lower extremity with multiple ulcers below knee. - Physical Exam Vitals/I&O's: Vital Signs Temp Pulse Resp BP Pulse Ox 98.8 F 112 H 22 H 98/55 L 94 08/05/19 08:23 08/05/19 11:41 08/05/19 08:33 08/05/19 08:23 08/05/19 08:33 Oxygen Delivery Method Room Air Weight: 164 lb 3.91 oz Body Mass Index (BMI) 21.7 Intake and Output for Last 24 Hours 08/03/19 08/04/19 08/05/19 23:59 23:59 23:59 Intake Total 1325.00 / 1525.00 2379.5 / 2379.5 Balance 1325.00 / 1525.00 2379.5 / 2379.5 General: Alert, Oriented x3, Cooperative HEENT: Atraumatic, PERRLA, EOMI, Normocephalic Neck: Supple, No JVD, Negative Carotid Bruits Lungs: Clear to auscultation, No rhonchi, No wheeze, No rales, Diminished Cardiovascular: Regular rate, Regular Rhythm, Normal S1, Normal S2, No murmurs Abdomen: Bowel Sounds Present, Soft, Non Tender, Non-Distended Extremities: No edema, Capillary Refill Less than 3 Seconds Skin: Ulcer/ Wound - Multiple ulcer over right lower leg. 1 over right metatarsal head, second large ulcer covered with discharge over heel, third over lateral margin of foot. Fourth posterior lateral of leg. And fifth 2 ulcer on the anterior part of leg, ray Musculoskeletal: Arthritic Changes, Muscle Wasting, - - Left above-knee amputation Neurological: Cranial nerves II-XII grossly intact, Neuro grossly intact, - - Chronic peripheral neuropathy Psych/Mental Status: Normal Affect, Appropriate Microbiology Past 72 Hours 08/04/19 22:50 Ulcer, Decubitus - Leg, Right Gram Stain - Final Laboratory Results 08/04/19 16:00: WBC 11.2 H, RBC 3.96 L, Hgb 10.4 L, Hct 33.8 L, MCV 85.4, MCH 26.3 L, MCHC 30.8 L, RDW Std Deviation 51.6 H, RDW Coeff of Reinier 16.7 H, Plt Count 411, MPV 10.4, Immature Gran % (Auto) 0.400, Neut % (Auto) 72.8 H, Lymph % (Auto) 15.7 L, [place] % (Auto) 10.0, Eos % (Auto) 0.8, Baso % (Auto) 0.3, Absolute Neuts (auto) 8.2 H, Absolute Lymphs (auto) 1.76, Nucleated RBC % 0, ESR 51 H 08/04/19 16:00: PT 17.6 H, INR 1.5, APTT 40.2 H 08/04/19 16:00: Sodium 140, Potassium 3.5, Chloride 105, Carbon Dioxide 28.0, Anion Gap 7, BUN 20 H, Creatinine 0.88, Estim Creat Clear Calc 79.45, Est GFR (MDRD) Af Amer 108, Est GFR (MDRD) Non-Af 90, BUN/Creatinine Ratio 22.8 H, Glucose 90, Calcium 8.7, Total Bilirubin 0.60, AST 44 H, ALT 24, Alkaline Phosphatase 67, C-React Prot Ext Range 113.00 H, Total Protein 7.6, Albumin 2.5 L, Globulin 5.1 H, Albumin/Globulin Ratio 0.5 L 08/04/19 16:00: Lactic Acid 1.4 08/04/19 18:43: Urine Color Yellow, Urine Clarity Sl. Cloudy, Urine pH 5.0, Ur Specific [place] 1.025, Urine Protein 30 H, Urine Glucose (UA) Normal, Urine Ketones 5 H, Urine Occult Blood 25 H, Urine Nitrite Negative, Urine Bilirubin 1 H, Urine Urobilinogen 1 H, Ur Leukocyte Esterase 25 H, Urine RBC 0-5 SEEN, Urine WBC 0-5 SEEN, Ur Squamous Epith Cells 0-5 SEEN, Amorphous Sediment 1+ URATE, Urine Bacteria 0 SEEN, Hyaline Casts 0-5 SEEN, Urine Mucus RARE 08/04/19 22:50: S.aureus Protein A PCR POSITIVE H, MRSA (PCR) POSITIVE H 08/05/19 05:44: WBC 10.4, RBC 3.10 L, Hgb 8.2 L, Hct 26.1 L, MCV 84.2, MCH 26.5 L, MCHC 31.4 L, RDW Std Deviation 51.8 H, RDW Coeff of Reinier 16.8 H, Plt Count 327, MPV 9.9, Immature Gran % (Auto) 0.400, Neut % (Auto) 88.0 H, Lymph % (Auto) 6.1 L, [place] % (Auto) 4.1, Eos % (Auto) 1.2, Baso % (Auto) 0.2, Absolute Neuts (auto) 9.2 H, Absolute Lymphs (auto) 0.64 L, Nucleated RBC % 0 08/05/19 05:44: Sodium 140, Potassium 3.6, Chloride 108 H, Carbon Dioxide 24.0, Anion Gap 8, BUN 18, Creatinine 0.70, Estim Creat Clear Calc 65.19, Est GFR (MDRD) Af Amer 140, Est GFR (MDRD) Non-Af 115, BUN/Creatinine Ratio 25.6 H, Glucose 100, Calcium 8.3 L Current Medications Acetaminophen (Tylenol) 650 mg PO Q6H PRN PRN PRN Reason: Pain Score 1-3/Temp > 100.7 F Last Admin: 08/05/19 03:14 Dose: 650 mg Documented by: Apixaban (Eliquis) 5 mg PO BID [facility] Last Admin: 08/05/19 09:40 Dose: 5 mg Documented by: Collagenase (Santyl) 1 applic TOPICAL DAILY [facility]; Protocol Last Admin: 08/05/19 09:41 Dose: 1 applic Documented by: Dextrose (D50w Syringe) 0 gm IV X1 PRN; Protocol PRN Reason: Hypoglycemia Glucagon () 1 mg IM .X1 PRN PRN Reason: Hypoglycemia Vancomycin IV Pharmacy to Dose (1 ea/ Sodium Chloride) 500 mls @ 250 mls/hr IV PRN PRN; Protocol PRN Reason: Rx to Dose Piperacillin Sod/Tazobactam (Sod 3.375 gm/ Sodium Chloride) 50 mls @ 12.5 mls/hr IV Q8 [facility] Last Infusion: 08/05/19 09:41 Dose: Infused Documented by: Sodium Chloride () 250 mls @ 15 mls/hr IV .[id number] PRN PRN Reason: Saline Flush Last Infusion: 08/05/19 10:44 Dose: 15 mls/hr Documented by: Vancomycin HCl 750 mg/ Sodium (Chloride) 265 mls @ 250 mls/hr IV Q12H [facility] Last Infusion: 08/05/19 10:44 Dose: Infused Documented by: Sodium Chloride () 1,000 mls @ 250 mls/hr IV .Q4H ONE Stop: 08/05/19 17:30 Melatonin (Melatonin) 3 mg PO QHS PRN PRN PRN Reason: INSOMNIA Metoprolol Tartrate (Lopressor (Beta Min)) 50 mg PO X1 ONE Stop: 08/05/19 13:29 Metoprolol Tartrate (Lopressor (Beta Min)) 100 mg PO BID [facility] Nutritional Formula (Lactose Free) (Ensure Enlive) 120 ml PO 4X/DAY [facility] Last Admin: 08/05/19 09:40 Dose: 120 ml Documented by: Ondansetron HCl (Zofran) 4 mg IV Q8H PRN PRN PRN Reason: NAUSEA/VOMITING Oxycodone HCl (Oxyir) 5 mg PO Q4H PRN PRN PRN Reason: Pain Score 4-5/10 Oxycodone HCl (Oxyir) 10 mg PO Q4H PRN PRN PRN Reason: Pain Score 6-10/10 Sodium Chloride () 10 - 40 ml IV UD PRN PRN Reason: SALINE FLUSH Last Admin: 08/04/19 22:06 Dose: 10 ml Documented by: Tramadol HCl (Ultram) 50 mg PO Q6H PRN PRN PRN Reason: Pain Score 1-3/10 Last Admin: 08/05/19 12:36 Dose: 50 mg Documented by: Home Medications: Medications to take at Discharge Apixaban [Eliquis] 5 mg PO BID 05/24/17 Collagenase [Santyl] 1 applic TOPICAL DAILY #1 tube 04/20/19 furosemide 20 mg tablet 20 mg PO DAILY 06/10/19 traMADol [Ultram] 1 tab PO Q6H PRN PRN 06/10/19 Metoprolol Tartrate [Lopressor (beta min)] 50 mg PO BID 08/04/19 Primary Care Physician: Phoebe Daniels MD [Primary Care Provider] - Medical Necessity - Tobacco Use Smoking Status: Current some day smoker Tobacco Use: Cigars Meaningful Use Info Meaningful Use Diagnoses (Choose all that apply): None applicable Code Visit Inpatient E&M: 33829 Disch Hosp
[2019-08-05] MEDS: 0.9% Normal Saline 1,000 ML 250 ML IV (14:18)
--- NOTE | 2019-08-05 14:58 | CON.PCM_ITS ---
Problem List (1) Osteomyelitis of foot, right, acute Status: Acute Reason for Consult: osteo Consulted by: Dr. Granger History of Present Illness: The patient is a 78 year old M with PAD, recurrent osteo, LLE BKA, who presented with several days of worsening RLE redness, pain, drainage, odor, fever. Had been at [facility]. Last admit here at end of May, discharged on po abx. Has been following with wound care, vascular surgery, ortho. Last saw Dr. Cleary at wound center 07/31. Leg worsened, taken to ED, admitted on vanc/cefepime. Wound cx pending, seen by Dr. Diana with podiatry. Amputation recommended, and pt requested transfer to [facility]. Full ROS performed and neg except as noted above. - Medical History Past Medical History (Chronic Problems): Chronic Problems (Last Reviewed 08/04/19 @ 19:52 by Kendall Modi DO) Other specified peripheral vascular diseases (Chronic) Failure to thrive (Chronic) Knee contracture (Chronic) Ulcer of right foot with fat layer exposed (Chronic) Malnutrition (Chronic) Contracture of knee joint (Chronic) Pressure ulcer, heel, right, unstageable (Chronic) Alcohol abuse (Chronic) Essential hypertension (Chronic) 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) Venous insufficiency (Chronic) CKD (chronic kidney disease) stage 3, GFR 30-59 ml/min (Chronic) Anemia (Chronic) Delayed wound healing (Chronic) Nonischemic cardiomyopathy (Chronic) Chronic systolic CHF (congestive heart failure) (Chronic) Neuropathic pain, leg, 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) Allergies/Adverse Reactions: Allergies codeine Adverse Reaction (Verified 08/04/19 16:11) Nausea Home Medications: Ambulatory Orders Medication Instructions Recorded Apixaban [Eliquis] 5 mg PO BID 05/24/17 Collagenase [Santyl] 1 applic TOPICAL DAILY #1 tube 04/20/19 furosemide 20 mg tablet 20 mg PO DAILY 06/10/19 traMADol [Ultram] 1 tab PO Q6H PRN PRN 06/10/19 Metoprolol Tartrate [Lopressor 50 mg PO BID 08/04/19 (beta sumanth)] - Social History SMOKING STATUS:: Former smoker Vital Signs Temp Pulse Resp BP Pulse Ox 98.8 F 104 H 22 H 101/62 94 08/05/19 08:23 08/05/19 14:36 08/05/19 08:33 08/05/19 14:36 08/05/19 08:33 Oxygen Delivery Method Room Air Weight: 74.5 kg Body Mass Index (BMI) 21.7 Microbiology Past 72 Hours 08/04/19 22:50 Gram Stain - Final Ulcer, Decubitus - Leg, Right Laboratory Tests Past 24 Hrs 08/04/19 08/04/19 08/04/19 16:00 16:00 16:00 WBC 11.2 H RBC 3.96 L Hgb 10.4 L Hct 33.8 L MCV 85.4 MCH 26.3 L MCHC 30.8 L RDW Std Deviation 51.6 H RDW Coeff of Reinier 16.7 H Plt Count 411 MPV 10.4 Immature Gran % (Auto) 0.400 Neut % (Auto) 72.8 H Lymph % (Auto) 15.7 L Butts % (Auto) 10.0 Eos % (Auto) 0.8 Baso % (Auto) 0.3 Absolute Neuts (auto) 8.2 H Absolute Lymphs (auto) 1.76 Nucleated RBC % 0 ESR 51 H PT 17.6 H INR 1.5 APTT 40.2 H Sodium 140 Potassium 3.5 Chloride 105 Carbon Dioxide 28.0 Anion Gap 7 BUN 20 H Creatinine 0.88 Estim Creat Clear Calc 79.45 Est GFR (MDRD) Af Amer 108 Est GFR (MDRD) Non-Af 90 BUN/Creatinine Ratio 22.8 H Glucose 90 Lactic Acid Calcium 8.7 Total Bilirubin 0.60 AST 44 H ALT 24 Alkaline Phosphatase 67 C-React Prot Ext Range 113.00 H Total Protein 7.6 Albumin 2.5 L Globulin 5.1 H Albumin/Globulin Ratio 0.5 L Urine Color Urine Clarity Urine pH Ur Specific [place] Urine Protein Urine Glucose (UA) Urine Ketones Urine Occult Blood Urine Nitrite Urine Bilirubin Urine Urobilinogen Ur Leukocyte Esterase Urine RBC Urine WBC Ur Squamous Epith Cells Amorphous Sediment Urine Bacteria Hyaline Casts Urine Mucus S.aureus Protein A PCR MRSA (PCR) 08/04/19 08/04/19 08/04/19 16:00 18:43 22:50 WBC RBC Hgb Hct MCV MCH MCHC RDW Std Deviation RDW Coeff of Reinier Plt Count MPV Immature Gran % (Auto) Neut % (Auto) Lymph % (Auto) Butts % (Auto) Eos % (Auto) Baso % (Auto) Absolute Neuts (auto) Absolute Lymphs (auto) Nucleated RBC % ESR PT INR APTT Sodium Potassium Chloride Carbon Dioxide Anion Gap BUN Creatinine Estim Creat Clear Calc Est GFR (MDRD) Af Amer Est GFR (MDRD) Non-Af BUN/Creatinine Ratio Glucose Lactic Acid 1.4 Calcium Total Bilirubin AST ALT Alkaline Phosphatase C-React Prot Ext Range Total Protein Albumin Globulin Albumin/Globulin Ratio Urine Color Yellow Urine Clarity Sl. Cloudy Urine pH 5.0 Ur Specific [place] 1.025 Urine Protein 30 H Urine Glucose (UA) Normal Urine Ketones 5 H Urine Occult Blood 25 H Urine Nitrite Negative Urine Bilirubin 1 H Urine Urobilinogen 1 H Ur Leukocyte Esterase 25 H Urine RBC 0-5 SEEN Urine WBC 0-5 SEEN Ur Squamous Epith Cells 0-5 SEEN Amorphous Sediment 1+ URATE Urine Bacteria 0 SEEN Hyaline Casts 0-5 SEEN Urine Mucus RARE S.aureus Protein A PCR POSITIVE H MRSA (PCR) POSITIVE H 08/05/19 08/05/19 05:44 05:44 WBC 10.4 RBC 3.10 L Hgb 8.2 L Hct 26.1 L MCV 84.2 MCH 26.5 L MCHC 31.4 L RDW Std Deviation 51.8 H RDW Coeff of Reinier 16.8 H Plt Count 327 MPV 9.9 Immature Gran % (Auto) 0.400 Neut % (Auto) 88.0 H Lymph % (Auto) 6.1 L Butts % (Auto) 4.1 Eos % (Auto) 1.2 Baso % (Auto) 0.2 Absolute Neuts (auto) 9.2 H Absolute Lymphs (auto) 0.64 L Nucleated RBC % 0 ESR PT INR APTT Sodium 140 Potassium 3.6 Chloride 108 H Carbon Dioxide 24.0 Anion Gap 8 BUN 18 Creatinine 0.70 Estim Creat Clear Calc 65.19 Est GFR (MDRD) Af Amer 140 Est GFR (MDRD) Non-Af 115 BUN/Creatinine Ratio 25.6 H Glucose 100 Lactic Acid Calcium 8.3 L Total Bilirubin AST ALT Alkaline Phosphatase C-React Prot Ext Range Total Protein Albumin Globulin Albumin/Globulin Ratio Urine Color Urine Clarity Urine pH Ur Specific [place] Urine Protein Urine Glucose (UA) Urine Ketones Urine Occult Blood Urine Nitrite Urine Bilirubin Urine Urobilinogen Ur Leukocyte Esterase Urine RBC Urine WBC Ur Squamous Epith Cells Amorphous Sediment Urine Bacteria Hyaline Casts Urine Mucus S.aureus Protein A PCR MRSA (PCR) - Other Studies Radiology: [] reviewed Other Studies: [] Route of nutrition/ use of supplements: [] Nutritional Intake: [] IV Site: [] Austin Catheter: [] - Physical Exam General: Alert, Oriented x3, Cooperative, No apparent distress HEENT: Atraumatic, PERRLA, EOMI Neck: Supple, No Nodes Lungs: Clear to auscultation, Normal air movement Cardiovascular: Regular rate, Regular Rhythm Abdomen: Soft, Non Tender, Non-Distended Extremities: No edema, Diminished Peripheral Pulses Skin: Ulcer/ Wound - reviewed photos IV Site: Peripheral, without redness Musculoskeletal: No Tenderness to Palpation of Joints or Extremities Neurological: Cranial nerves II-XII grossly intact - Assessment/Plan Antibiotics: [] Assessment/Plan: [] Active and Suspected Problems (Last Reviewed 08/04/19 @ 19:52 by Kendall Modi DO) Sepsis (Acute) Osteomyelitis of foot, right, acute (Acute) Cellulitis of right leg (Acute) Fever, tachycardia. Wound cx pending. Transfer to [facility] planned for amputation with Dr. Cole. I can follow him there. Cont vanc/cefepime. Prior cxs with alcaligenes, providencia, serratia, MRSA, CoNS, corynebacteria. Will follow, thank you, d/w primary team
--- NOTE | 2019-08-05 15:48 | NURSING ---
report called to [facility] for discharge. spoke with NUNO Dobbins.
== END 2019-08-05 16:15 | disposition short-term general hospital (02) | DRG 570 ==
LOC: ED 17:10 → MS3 20:38
PROVIDERS: Emergency Provider Emergency Medicine; Family Provider Internal Medicine; PCP Internal Medicine; Visit Provider Internal Medicine
DX: L03.115 Cellulitis of right lower limb (principal); A41.9 Sepsis, unspecified organism; I13.0 Hypertensive heart and chronic kidney disease with heart failure and stage 1 through stage 4 chronic kidney disease, or unspecified chronic kidney disease; I50.22 Chronic systolic (congestive) heart failure; I42.8 Other cardiomyopathies; I48.20 Chronic atrial fibrillation, unspecified; E44.0 Moderate protein-calorie malnutrition; N18.3 Chronic kidney disease, stage 3 (moderate); R62.7 Adult failure to thrive; M24.569 Contracture, unspecified knee; L97.512 Non-pressure chronic ulcer of other part of right foot with fat layer exposed; L89.619 Pressure ulcer of right heel, unspecified stage; I87.2 Venous insufficiency (chronic) (peripheral); I73.9 Peripheral vascular disease, unspecified; D63.1 Anemia in chronic kidney disease; Z89.612 Acquired absence of left leg above knee; N40.0 Benign prostatic hyperplasia without lower urinary tract symptoms; Z79.899 Other long term (current) drug therapy; Z79.02 Long term (current) use of antithrombotics/antiplatelets; Z79.891 Long term (current) use of opiate analgesic; Z68.23 Body mass index [BMI] 23.0-23.9, adult; F17.290 Nicotine dependence, other tobacco product, uncomplicated; M85.80 Other specified disorders of bone density and structure, unspecified site; M19.90 Unspecified osteoarthritis, unspecified site
CPT/HCPCS: 36415; 73630; 73701; 80048; 80053; 81001; 83605; 85025; 85610; 85652; 85730; 86140; 87040; 87070; 87075; 87076; 87077; 87186; 87205; 87640; 93922; 97802; 99285; J7030; J7050; Q9967; A4216

== ENCOUNTER → 2020-07-03 | Outpatient (CLI) | payer MEDICARE, OTHER, SELFPAY ==
[2019-08-04 20:49] VITALS: BMI 21.7
--- NOTE | 2020-07-03 10:28 | MRI_ITS ---
STUDY: MRI LOWER EXTREMITY RIGHT THIGH WITH AND WITHOUT CONTRAST REASON FOR EXAM: Male, 79 years old. PT SCANNED LYING ON RIGHT SIDE, LEGS CONTRACTED UNABLE TO STRAIGHTENosteomyelitis right distal femur, HX bilat above knee amputation TECHNIQUE: Standardized fat and water weighted pulse sequences were obtained in all 3 orthogonal planes, post contrast administration. IV Dotarem 15ml was administered for the contrast portion of the examination. COMPARISON: None. FINDINGS: Edema of the subcutaneous fat of the distal to the above knee amputation. No loculated fluid collection to suggest abscess. Normal quadriceps, adductor and hamstring muscles. Normal quadriceps extensor mechanism with a normal rectus femoris, vastus medialis, intermedius and lateralis muscles. Normal femur. MRI/Lower Ext No Joint W/WO Cont IMPRESSION: Edema of the soft tissues distally at the above-knee amputation site but no abscess or osteomyelitis. Electronically Signed: David Duran MD at 9:10 EDT Tel , Service support ,
[2020-07-03 11:30] LABS: EGFR FINGERSTICK > 60.0000 mL/min (>60)
== END | disposition home or self-care (01) ==
LOC: MRI 10:25
PROVIDERS: PCP Internal Medicine; Referring Provider Internal Medicine Infectious Disease; Visit Provider Internal Medicine Infectious Disease
DX: M86.8X8 Other osteomyelitis, other site (principal)
CPT/HCPCS: 73720; A9575

== ENCOUNTER → 2020-07-21 | Outpatient (CLI) | payer MEDICARE, OTHER, SELFPAY ==
[2019-08-04 20:49] VITALS: BMI 21.7
== END | disposition home or self-care (01) ==
LOC: LABSPEC 17:01
PROVIDERS: PCP Internal Medicine; Referring Provider Internal Medicine Infectious Disease; Visit Provider Internal Medicine Infectious Disease
DX: M86.9 Osteomyelitis, unspecified (principal)
CPT/HCPCS: 87070; 87077; 87186; 87205

== ENCOUNTER → 2020-09-16 | Outpatient (CLI) | payer MEDICARE, OTHER, SELFPAY ==
[2019-08-04 20:49] VITALS: BMI 21.7
== END | disposition home or self-care (01) ==
PROVIDERS: PCP Internal Medicine; Referring Provider Internal Medicine Infectious Disease; Visit Provider Internal Medicine Infectious Disease
DX: M86.9 Osteomyelitis, unspecified (principal)
CPT/HCPCS: 87070; 87077; 87186; 87205

== ENCOUNTER 2020-11-04 07:42 | Emergency (ER) | payer MEDICARE, OTHER, SELFPAY ==
[2020-09-30 15:01] VITALS: BMI 22.8
[2020-11-04 07:43] VITALS: BP 171/116; PULSE 106; RESP 20; TEMP 36.6; O2SAT 97; BMI 64.7
--- NOTE | 2020-11-04 09:03 | ED.DCSUM_ITS ---
History of Present Illness Chief Complaint: Fall Informant: Patient Onset: Today Current Severity: Mild Maximum Severity: Moderate Narrative: Patient presents secondary to left shoulder pain after a fall. Patient states he fell out of bed this morning injuring his left shoulder. He is left-hand dominant. Patient has bilateral AKA and does rely on his arms to help him transfer. He denies striking his head or any other injury. - Past Medical History (1) CKD (chronic kidney disease) stage 3, GFR 30-59 ml/min Status: Chronic (2) Chronic atrial fibrillation Status: Chronic (3) Chronic systolic CHF (congestive heart failure) Status: Chronic (4) Essential hypertension Status: Chronic (5) Nonischemic cardiomyopathy Status: Chronic (6) PAOD (peripheral arterial occlusive disease) Status: Chronic Past Medical History - Allergies and Home Meds Allergies/Adverse Reactions: Allergies codeine Adverse Reaction (Verified 11/04/20 07:45) Nausea Primary Care Physician: Phoebe Daniels MD [Primary Care Provider] - Surgical History: appendectomy, herniorrhaphy, - - Hand surgery. left AKA Lives: Spouse/ Significant Other Smoking Status: Former smoker - Family History Maternal Family History: Family History (Last Reviewed 09/30/20 @ 15:19 by Michelle Mendoza) Mother Alzheimers disease Grandmother Alzheimers disease Brother Cancer Family History: Reports: Dementia Paternal Family History: Family History (Last Reviewed 09/30/20 @ 15:19 by Michelle Mendoza) Mother Alzheimers disease Grandmother Alzheimers disease Brother Cancer Family History: Reports: - - venous ulcers Review of Systems General: Denies: Chills, Fever Eyes: Denies: Visual changes - bilaterally ENT: Denies: Bilateral ear pain Cardiovascular: Denies: Chest pain Respiratory: Denies: Dyspnea, Cough Gastrointestinal: Denies: Abdominal pain, Nausea, Vomiting, Diarrhea Musculoskeletal: Reports: Extremity Pain Skin: Denies: Rash Neurological: Denies: Headache Hematologic: Denies: Easy bruising, Easy bleeding Allergy: Denies: Uticaria Physical Exam Vital Signs/Narrative: Vital Signs Temp Pulse Resp BP Pulse Ox 11/04/20 07:43 97.9 F 106 H 20 H 171/116 H 97 Inital Vital Signs reviewed: Yes General: Well nourished, Well developed Head: Normocephalic ENT: Moist mucous membranes Neck: Supple Cardiovascular: Irregular, Tachycardia Respiratory: No distress, CTA bilaterally Abdomen: Soft, Nontender Extremities: - - Tenderness diffusely around the left shoulder. Decreased range of motion secondary to pain. No tenderness over the mid to distal humerus, elbow, forearm, or hand. No overlying skin changes. Neurological: Alert, Oriented x3 Psychological: Normal affect Diagnostic/Tx/Re-eval Impressions Shoulder X-Ray 11/04/20 09:33 IMPRESSION: Nondisplaced fracture involving the lateral distal aspect of the left clavicle. Electronically Signed: Thor Mccallum MD at 9:56 EST , Service support , 11/04/20 09:33 Shoulder min 2 Views [RAD] Stat - Medical Decision Making X-ray does confirm lateral left clavicle fracture on my review. Radiologist interpretation is also reviewed. Because the patient does rely on his arms for transfers secondary to his lower extremity amputations I do have concern about him going home. Social work met with the patient and he did agree to go to a retirement. While awaiting acceptance there patient has now changed his mind stating that he has a home nurse that comes and wants to go home instead. He is requesting a Reynold lift and and over the bed table. Social work is working on this for him. Sling will be placed on the left arm and patient will be discharged per his instructions. He understands that he cannot weight-bear on that left arm. ED Disposition - Plan for ED Patient: Disposition: Home or Assisted Living Diagnosis: Closed left clavicular fracture Instructions: ED Fracture, Clavicle Referrals: Phoebe Daniels MD [Primary Care Provider] - 1-2 Weeks Tiffany Anne DO [STAFF PHYSICIAN] - 1 Week
--- NOTE | 2020-11-04 09:33 | RAD_ITS ---
STUDY: X-RAY - LEFT SHOULDER REASON FOR EXAM: Male, 80 years old. Pt. Fell this morning TECHNIQUE: 3 view(s) of the shoulder. COMPARISON: Comparison is made with prior study dated 03/18/2017. FINDINGS: Nondisplaced fracture of the lateral distal aspect of the left clavicle. There is mild degenerative arthrosis of the glenohumeral articulation. There is degenerative arthrosis of the acromioclavicular joint without inferior osseous spur formation. Normal acromion. Normal humeral head and visualized proximal humerus. The soft tissue structures are unremarkable. Normal visualized pulmonary apex. RAD/Shoulder min 2 Views IMPRESSION: Nondisplaced fracture involving the lateral distal aspect of the left clavicle. Electronically Signed: Thor Mccallum MD at 9:56 EST , Service support ,
--- NOTE | 2020-11-04 11:45 | CM.ED ---
Social Work Consult: Custodial Placement Informant: Dr. Roa Met with patient in room. Introduced self and social media campaign manager role. Patient agreeable to speak with this social media campaign manager. Patient lives at home with spouse. Patient has bilateral AKA and primarily transfers by using arms. Patient has a motorized wheelchair that patient fell out of today while transferring. Patient reports to have a nurse that checks in with patient daily for an hour that patient private pays for. Patient reports that patient spouse is limited help for patient. Patient reports to manage all own finances and to primarily use [place] transportation. Patient PCP is Dr. Daniels. This social media campaign manager inquired about patient plans/thoughts currently. Patient reports to have a desire to return to home but to be concerned about how patient would manage own care in the home due to patient now having a broken left clavicle. Patient states I am going to need to go somewhere. This social media campaign manager provided patient with list of in-network nursing homes in relationship to patient geographical region for home address. Patient choose [facility] as first choice for long-term placement. Patient aware that plan would be for patient to discharge to the long-term from the Emergency Room today. Patient agreeable to plan for long-term placement for strengthening. [facility]phone call to [facility] Referral information provided. [facility] reports to have an open bed and that the three day stay under Medicare is continuing to be waived. Clinical information faxed. [facility] to review and get back to this social media campaign manager. Updated medical team on above. PLAN: [facility] pending approval. Maryjane GRULLON, TIMO
[2020-11-04 12:46] VITALS: BP 124/77; PULSE 112; RESP 15
[2020-11-04] MEDS: traMADol 50 MG Tablet 100 MG PO (12:46)
[2020-11-04 13:24] VITALS: BP 124/77; PULSE 104; RESP 19
--- NOTE | 2020-11-04 14:16 | CASEMGMT ---
Social Work This social worker palliative care notified by nursing staff that patient is now wanting to return to home with spouse. This social worker palliative care met with patient in room. Patient states I am going home. Patient states I do not want the COVID-19. Patient reports to have spoken to my nurse and to have decided to return to living in the community. Patient request for an order for a Reynold and bedside table. This social worker palliative care inquired if patient would like assistance setting up Reynold and Bedside Table, patient denied needing assistance with setting up DME and states my nurse will get it. Patient reports no concerns with returning to home I will be fine. This social worker palliative care inquired as to how patient plans to get home. Patient reports plan to call [employer] transportation for a ride home and to have [employer] bring a wheelchair. Patient called [employer] while this social worker palliative care was in the room and said transportation will be here in 10min. Patient reports to be aware of the concerns/risk to returning to home. Active support and listening provided. Patient A&Ox3. Dr. Roa signing scripts for mentioned DME. Scripts provided to patient. Medical team updated and aware of patient plan. Telephone call to [facility]. This social worker palliative care canceled referral. Maryjane GRULLON, TIMO
== END 2020-11-04 13:44 | disposition home or self-care (01) ==
PROVIDERS: Emergency Provider Emergency Medicine; PCP Internal Medicine
DX: S42.035A Nondisplaced fracture of lateral end of left clavicle, initial encounter for closed fracture (principal); Z89.611 Acquired absence of right leg above knee; Z89.612 Acquired absence of left leg above knee; I13.0 Hypertensive heart and chronic kidney disease with heart failure and stage 1 through stage 4 chronic kidney disease, or unspecified chronic kidney disease; I50.22 Chronic systolic (congestive) heart failure; N18.30 Chronic kidney disease, stage 3 unspecified; I48.20 Chronic atrial fibrillation, unspecified; Z79.02 Long term (current) use of antithrombotics/antiplatelets; Z79.899 Other long term (current) drug therapy; Z87.891 Personal history of nicotine dependence; W06.XXXA Fall from bed, initial encounter; Y93.89 Activity, other specified; Y92.003 Bedroom of unspecified non-institutional (private) residence as the place of occurrence of the external cause; Y99.8 Other external cause status
CPT/HCPCS: 73030; 99285

== ENCOUNTER 2021-12-09 08:11 | Outpatient (CLI) | payer MEDICARE, OTHER, SELFPAY ==
--- NOTE | 2021-12-09 08:17 | ECHOD_ITS ---
Reason For Study: AFIB/FLUTTER Procedure This was a 2D Doppler, Color Flow transthoracic echocardiogram. The study was technically difficult. Exam performed in wheelchair. Exam performed in department. Left Ventricle Normal LV size. Left ventricular systolic function is normal. The estimated ejection fraction is 55 %. No regional wall motion abnormalities noted. Right Ventricle Normal RV size. Normal systolic function. Atria The left atrium is severely enlarged. The right atrium is moderately enlarged. Mitral Valve There is mild mitral annular calcification. Mild (1+) eccentric mitral valve insufficiency. Tricuspid Valve Normal tricuspid valve. Mild (1+) tricuspid valve insufficiency. Pulmonary artery systolic pressure is 30 mmHg. Aortic Valve Trisinus/trileaflet aortic valve. Pulmonic Valve Normal pulmonic valve. Great Vessels Normal aortic root. The pulmonary artery is normal size. Normal inferior vena cava. Pericardium/Pleural No pericardial effusion. MMode/2D Measurements & Calculations LVIDd: 4.5 cm IVSd: 1.4 cm Ao root diam: 3.7 cm LVIDs: 3.2 cm LVPWd: 1.4 cm RVDd: 3.5 cm FS: 29.4 % LAV(MOD-bp): 126.3 ml LA A4 area: 34.6 cm2 LA dimension(2D): 4.9 cm LAV(MOD-bp) Indexed: 62.9 ml/m2 LAV(MOD-sp2): 110.3 ml LAV(MOD-sp4): 113.1 ml RA A4 area: 24.4 cm2 Doppler Measurements & Calculations MV E max katherine: 95.4 cm/sec Ao V2 max: 93.7 cm/sec LV V1 max: 71.4 cm/sec Ao max P.5 mmHg LV V1 max P.0 mmHg PA V2 max: 81.5 cm/sec TR max katherine: 252.9 cm/sec TR max P.6 mmHg ECHO/Echo Complete Interpretation Summary Normal LV size. Left ventricular systolic function is normal. The estimated ejection fraction is 55 %. There is mild mitral annular calcification. Mild (1+) eccentric mitral valve insufficiency. The left atrium is severely enlarged. The right atrium is moderately enlarged. Ordering Physician: Shilo Birmingham Referring Physician: Phoebe Daniels Performed By: Siri Dominguez, JUAN CARLOS, RVT
== END 2021-12-09 23:59 | disposition home or self-care (01) ==
LOC: CVS 08:13
PROVIDERS: PCP Internal Medicine; Referring Provider Internal Medicine Cardiovascular Disease; Visit Provider Internal Medicine Cardiovascular Disease
DX: I48.11 Longstanding persistent atrial fibrillation (principal); I48.92 Unspecified atrial flutter
CPT/HCPCS: 93306

== ENCOUNTER → 2022-01-06 | Outpatient (CLI) | payer MEDICARE, OTHER, SELFPAY | END | disposition home or self-care (01) | PROVIDERS: PCP Internal Medicine; Referring Provider Internal Medicine Infectious Disease; Visit Provider Internal Medicine Infectious Disease | DX: T87.89 Other complications of amputation stump (principal) | CPT/HCPCS: 87070; 87075; 87077; 87186; 87205 ==

== ENCOUNTER → 2022-01-21 | Outpatient (CLI) | payer MEDICARE, OTHER, SELFPAY ==
[2022-01-21 12:33] LABS: Absolute Lymphocyte Count 1.09 X10^3/uL (0.83-4.51); Absolute Neutrophil Count 4.4 X10^3/uL (2.0-7.7); Basophil# 0.05 X10^3/uL; Basophil% 0.8 % (0-1); Eosinophil# 0.17 X10^3/uL; Eosinophils% 2.6 % (0-5); Hematocrit 45.6 % (40-54); Hemoglobin 14.5 g/dL (13.0-16.5); Lymphocyte # 1.09 X10^3/ul (0.83-4.51); Lymphocyte % 16.8 % (19-41); Mean Corp Hgb Conc 31.8 g/dL (32-36); Mean Corpuscular Hgb 30.2 pg (27.0-32.0); Mean Platelet Vol. 10.4 fl (6.2-12.0); Monocyte# 0.77 X10^3/uL; Monocyte% 11.9 % (0-10); NRBC Flagged by Analyzer 0 % (0-5); Neutrophil # 4.38 X10^3/uL (2.7-7.7); Neutrophil % 67.6 % (47-70); Platelet Count 190 K/mm3 (150-450); RBC Distribution Width CV 15.3 % (11.6-14.6); RBC Distribution Width SD 53.4 fl (35.1-43.9); White Blood Count 6.5 K/mm3 (4.4-11.0)
[2022-01-21 12:39] LABS: Vitamin D,25 Hydroxy 16.4 ng/mL
[2022-01-21 12:52] LABS: ALB/GLOB Ratio 0.9 RATIO (0.9-2.4); AST(SGOT) 18 U/L (15-37); Alanine Aminotransfer ALT/SGPT 22 U/L (16-61); Albumin, Serum 3.5 g/dL (3.2-5.0); Alkaline Phosphatase 108 U/L (45-117); Anion Gap 3 (5-15); BUN 21 mg/dL (7-18); Chloride 109 mmol/L (98-107); Cholesterol 162 mg/dL (200); EST Glomerular Filtration Rate 76 mL/min (>60); Est Glom Filt Rate - Afr Amer 92 mL/min (>60); Globulin 3.7 g/dL (2.2-4.2); Glucose 110 mg/dL (74-106); High Density Lipoprotein 60 mg/dL; Potassium 4.4 mmol/L (3.5-5.1); Protein, Total 7.2 g/dL (6.4-8.2); Sodium Level 141 mmol/L (136-145); Thyroid Stim Hormone (TSH) 0.86 uIU/mL (0.358-3.74); Triglycerides 49 mg/dL; Very Low Density Lipoprotein 10 mg/dL (5-40)
== END | disposition home or self-care (01) ==
LOC: BIMLAB 09:07
PROVIDERS: PCP Internal Medicine; Referring Provider Internal Medicine; Visit Provider Internal Medicine
DX: I10 Essential (primary) hypertension (principal); I48.11 Longstanding persistent atrial fibrillation; E55.9 Vitamin D deficiency, unspecified; Z12.5 Encounter for screening for malignant neoplasm of prostate
CPT/HCPCS: 36415; 80053; 80061; 82306; 84153; 84443; 85025; 87070; 87075; 87077; 87186; 87205; G0103

== ENCOUNTER → 2022-08-16 | Outpatient (CLI) | payer MEDICARE, OTHER, SELFPAY | END | disposition home or self-care (01) | LOC: LABSPEC 08-17 13:20 | PROVIDERS: PCP Internal Medicine; Visit Provider Internal Medicine Infectious Disease | DX: S81.801A Unspecified open wound, right lower leg, initial encounter (principal) ==

== ENCOUNTER 2023-01-08 09:00 | Emergency (ER) | payer MEDICARE, OTHER, SELFPAY ==
[2023-01-08 09:01] VITALS: BP 154/86; PULSE 102; RESP 16; TEMP 36.6; O2SAT 99; BMI 66.5
--- NOTE | 2023-01-08 09:27 | EX.ED.DYSGE1 ---
HPI History of Present Illness Chief Complaint: Wound Detail of Chief Complaint: Abscess Informant: patient Narrative Narrative: Patient presents complaining of recurrent abscess to his right stump. 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 The distal aspect of the stump has had a recurrent abscess that he has been treated for 15 times. He states he has been following with Dr. Moya from infectious disease. His last course of antibiotics was 6 weeks to cover for MRSA. He states that he did well for about 60 days but then noted recurrent symptoms again over the past couple days. He called both infectious disease and his primary care doctor on Monday but has not heard back so presented to the emergency room. [facility] Medical History Afib Amputation leg, bilat Anemia BPH loc w/o ur obs/LUTS CKD (chronic kidney disease) stage 3, GFR 30-59 ml/min Contracture of knee joint Delayed wound healing Essential hypertension Failure to thrive Gout Hypoglycemia Knee contracture Longstanding persistent atrial fibrillation Neuropathic pain, leg, bilateral Neuropathy Nonischemic cardiomyopathy Osteomyelitis of foot, right, acute Other specified peripheral vascular diseases Peripheral vascular occlusive disease Pressure ulcer, heel, right, unstageable Skin cancer Ulcer of right lower extremity with fat layer exposed Venous insufficiency Home Medications HI-Low bed #1 ea 07/25/22 [Rx Last Taken Unknown] apixaban 5 mg tablet 5 mg PO BID BLOOD THINNER #180 tabs 07/25/22 [Rx Last Taken Unknown] hanidcap placard ##1 07/25/22 [Rx Last Taken Unknown] metoprolol tartrate 100 mg tablet 100 mg PO BID blood pressure #180 tabs 07/25/22 [Rx Last Taken Unknown] linezolid 600 mg tablet 600 mg PO BID #20 tabs 01/08/23 [Rx Last Taken Unknown] Allergy/AdvReac Type Severity Reaction Status Date / Time codeine AdvReac Nausea Verified 01/08/23 09:03 Family History Mother Alzheimers disease Grandmother Alzheimers disease Brother Cancer prostate Surgical History History of appendectomy (1994) History of hernia repair 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/2019) History of tonsillectomy Social History Smoking Status: Former smoker how long ago did patient quit smokin years ago alcohol intake: current alcohol intake frequency: a few times a month Alcohol type: beer substance use type: does not use caffeine: Yes Type: coffee Number of servings: 7 what type of physical activity do you participate in: none ROS ROS ED Constitutional Constitutional ED: Reports fever(s) and subjective; Denies chills Eyes Eyes: Denies change in vision ENT ENT ED: Denies rhinorrhea or sore throat Cardiovascular Cardiovascular: Denies chest pain or palpitations Respiratory/Chest Respiratory/Chest: Reports cough; Denies dyspnea Gastrointestinal Gastrointestinal: Denies abdominal pain, diarrhea, nausea or vomiting Genitourinary Genitourinary ED: Denies dysuria Musculoskeletal Musculoskeletal: Reports extremity pain; Denies back pain Integumentary Reports abscess; Denies Abrasions or rash Neurologic Neurologic: Denies headache(s) or weakness Psychiatric Psychiatric: Denies anxiety or depression Endocrine Endocrinology: Denies polydipsia or polyuria Allergic/Immunologic Allergic/Immunologic ED: Denies lip swelling or urticaria EXAM Physical Exam Const Vital Signs: 01/08/23 09:01 Temperature 97.8 F Temperature Source Temporal Pulse Rate 102 H Respiratory Rate 16 Blood Pressure 154/86 H Blood Pressure Mean 108 Pulse Ox 99 Oxygen Delivery Method Room Air Positive well nourished and well developed General Appearance ED: well developed HEENT Reports normocephalic and head/scalp atraumatic Eyes PERRL and EOMs intact bilaterally Neck supple Chest Wall inspection of chest normal and palpation of chest normal Resp normal respiratory effort and clear to auscultation bilaterally Cardio regular rate and regular rhythm GI normal to inspection, nondistended, normoactive bowel sounds Palpation: soft Extremity Extremity Narrative: Bilateral lower extremity amputations of the mid thigh. Distal aspect of the right stump has a small cutaneous abscess measuring approximate 2 cm in diameter. No surrounding cellulitis. Neuro oriented x3 Sensorium / Orientation: alert Psych mental status grossly normal MDM MDM MDM Narrative Medical decision making narrative: Labwork obtained to evaluate for leukocytosis, anemia, and electrolyte derangement. Lab Data Labs: Laboratory Results - last 24 hr 01/08/23 01/08/23 09:50 09:50 WBC 9.6 RBC 5.21 Hgb 15.5 Hct 49.5 MCV 95.0 H MCH 29.8 MCHC 31.3 L RDW Std Deviation 51.5 H RDW Coeff of Reinier 14.6 Plt Count 211 MPV 10.3 Immature Gran % (Auto) 0.200 Neut % (Auto) 76.8 H Lymph % (Auto) 10.9 L [place] % (Auto) 9.1 Eos % (Auto) 2.6 Baso % (Auto) 0.4 Absolute Neuts (auto) 7.3 Absolute Lymphs (auto) 1.04 Nucleated RBC % 0 Sodium 139 Potassium 4.1 Chloride 105 Carbon Dioxide 28.0 Anion Gap 6 BUN 22 H Creatinine 1.02 Estim Creat Clear Calc 63.77 Est GFR (MDRD) Af Amer 90 Est GFR (MDRD) Non-Af 74 BUN/Creatinine Ratio 21.6 H Glucose 101 Calcium 9.8 Treatment and Re-Evaluation :: CBC and chemistry studies are unremarkable. White count is normal with no left shift. Patient consented for I&D of right leg abscess. 1 cc of 1% lidocaine is infused locally. A stab incision is made with a #11 blade. There is return of pus and blood. Wound culture is obtained and sent. Wound is cleansed and dressing applied. Patient had been on linezolid previously via ID for treatment of similar abscess. I will write him another course of linezolid and have him follow-up with Dr Moya. Discharge Plan Triage Chief Complaint: Wound ED Provider: Mayi Roa Dx/Rx/DC Orders Clinical Impression: Cutaneous abscess Instructions: ED Abscess Incision And Drainage Prescriptions: New linezolid 600 mg tablet 600 mg PO BID Qty: 20 0RF No Action apixaban 5 mg tablet 5 mg PO BID Qty: 180 3RF metoprolol tartrate 100 mg tablet 100 mg PO BID Qty: 180 3RF (DME) HI-Low bed See Rx Instructions .Route .MEDSUPPLY Qty: 1 0RF Rx Instructions: 5 year rx 07/25/22-07/25/27 (DME) jerry contreras See Rx Instructions .Route .MEDSUPPLY Qty: 1 0RF Rx Instructions: 5 year rx 07/25/22-07/25/27 Primary Care Provider: Brittany Quiroga Referrals: Brittany Quiroga MD [Primary Care Provider] - Pedro Moya MD [Med Staff - Active Staff] - 5-7 Days Disposition Disposition: Home, Self Care
[2023-01-08 10:00] LABS: Absolute Lymphocyte Count 1.04 X10^3/uL (0.83-4.51); Absolute Neutrophil Count 7.3 X10^3/uL (2.0-7.7); Basophil# 0.04 X10^3/uL; Basophil% 0.4 % (0-1); Eosinophil# 0.25 X10^3/uL; Eosinophils% 2.6 % (0-5); Hematocrit 49.5 % (40-54); Hemoglobin 15.5 g/dL (13.0-16.5); Lymphocyte # 1.04 X10^3/ul (0.83-4.51); Lymphocyte % 10.9 % (19-41); Mean Corp Hgb Conc 31.3 g/dL (32-36); Mean Corpuscular Hgb 29.8 pg (27.0-32.0); Mean Platelet Vol. 10.3 fl (6.2-12.0); Monocyte# 0.87 X10^3/uL; Monocyte% 9.1 % (0-10); NRBC Flagged by Analyzer 0 % (0-5); Neutrophil # 7.33 X10^3/uL (2.7-7.7); Neutrophil % 76.8 % (47-70); Platelet Count 211 K/mm3 (150-450); RBC Distribution Width CV 14.6 % (11.6-14.6); RBC Distribution Width SD 51.5 fl (35.1-43.9); Red Blood Count 5.21 M/mm3 (4.6-6.2); White Blood Count 9.6 K/mm3 (4.4-11.0)
[2023-01-08 10:13] LABS: Anion Gap 6 (5-15); BUN 22 mg/dL (7-18); BUN/Creat Ratio 21.6 RATIO (10-20); Calcium,Total 9.8 mg/dL (8.5-10.1); Chloride 105 mmol/L (98-107); Creatinine, Serum 1.02 mg/dL (0.70-1.30); EST Glomerular Filtration Rate 74 mL/min (>60); Est Glom Filt Rate - Afr Amer 90 mL/min (>60); Estimated Creatinine Clearance 63.77 ml/min; Glucose 101 mg/dL (74-106); Potassium 4.1 mmol/L (3.5-5.1); Sodium Level 139 mmol/L (136-145)
[2023-01-08] MEDS: Lidocaine 1% (20 ml mdv) 20 ML Vial INFILT (10:52)
[2023-01-08] MEDS: Linezolid 600 MG Tablet PO (11:17)
== END 2023-01-08 11:20 | disposition home or self-care (01) ==
PROVIDERS: Emergency Provider Emergency Medicine; PCP Internal Medicine; Visit Provider Emergency Medicine
DX: L02.415 Cutaneous abscess of right lower limb (principal); Z89.611 Acquired absence of right leg above knee; T87.89 Other complications of amputation stump; I10 Essential (primary) hypertension; Z87.891 Personal history of nicotine dependence
CPT/HCPCS: 10060; 80048; 85025; 87040; 87070; 87077; 87186; 87205; 99284; A4216

== ENCOUNTER → 2023-08-02 | Outpatient (CLI) | payer MEDICARE, OTHER, SELFPAY ==
[2023-08-02 15:56] LABS: Absolute Lymphocyte Count 1.95 X10^3/uL (0.83-4.51); Absolute Neutrophil Count 4.6 X10^3/uL (2.0-7.7); Basophil# 0.05 X10^3/uL; Basophil% 0.7 % (0-1); Eosinophil# 0.17 X10^3/uL; Eosinophils% 2.3 % (0-5); Hematocrit 45.6 % (40-54); Hemoglobin 14.7 g/dL (13.0-16.5); Lymphocyte # 1.95 X10^3/ul (0.83-4.51); Lymphocyte % 26.2 % (19-41); Mean Corp Hgb Conc 32.2 g/dL (32-36); Mean Corpuscular Hgb 31.1 pg (27.0-32.0); Mean Corpuscular Volume 96.4 fL (80-94); Mean Platelet Vol. 10.7 fl (6.2-12.0); Monocyte# 0.64 X10^3/uL; Monocyte% 8.6 % (0-10); NRBC Flagged by Analyzer 0 % (0-5); Neutrophil # 4.63 X10^3/uL (2.7-7.7); Neutrophil % 62.1 % (47-70); Platelet Count 207 K/mm3 (150-450); RBC Distribution Width CV 14.4 % (11.6-14.6); RBC Distribution Width SD 50.8 fl (35.1-43.9); Red Blood Count 4.73 M/mm3 (4.6-6.2); White Blood Count 7.5 K/mm3 (4.4-11.0)
[2023-08-02 16:38] LABS: ALB/GLOB Ratio 0.9 RATIO (0.9-2.4); AST(SGOT) 14 U/L (15-37); Alanine Aminotransfer ALT/SGPT 21 U/L (16-61); Albumin, Serum 3.3 g/dL (3.2-5.0); Alkaline Phosphatase 71 U/L (45-117); Anion Gap 6 (5-15); BUN 21 mg/dL (7-18); BUN/Creat Ratio 22.6 RATIO (10-20); Calcium,Total 8.9 mg/dL (8.5-10.1); Chloride 110 mmol/L (98-107); Cholesterol 156 mg/dL (200); Creatinine, Serum 0.93 mg/dL (0.70-1.30); EST Glomerular Filtration Rate 83 mL/min (>60); Est Glom Filt Rate - Afr Amer 100 mL/min (>60); Globulin 3.8 g/dL (2.2-4.2); Glucose 85 mg/dL (74-106); High Density Lipoprotein 48 mg/dL; PSA,Total - Annual Screen 7.31 ng/mL (0.00-4.00); Potassium 3.9 mmol/L (3.5-5.1); Protein, Total 7.1 g/dL (6.4-8.2); Sodium Level 143 mmol/L (136-145); Thyroid Stim Hormone (TSH) 0.71 uIU/mL (0.358-3.74); Triglycerides 87 mg/dL; Very Low Density Lipoprotein 17 mg/dL (5-40)
== END | disposition home or self-care (01) ==
LOC: LAB 15:07
PROVIDERS: PCP Internal Medicine; Visit Provider Internal Medicine
DX: I48.11 Longstanding persistent atrial fibrillation (principal); I73.9 Peripheral vascular disease, unspecified; N18.30 Chronic kidney disease, stage 3 unspecified; I12.9 Hypertensive chronic kidney disease with stage 1 through stage 4 chronic kidney disease, or unspecified chronic kidney disease; Z12.5 Encounter for screening for malignant neoplasm of prostate
CPT/HCPCS: 36415; 80053; 80061; 84153; 84443; 85025; G0103

== ENCOUNTER 2023-12-11 13:04 | Emergency (ER) | payer MEDICARE, SELFPAY ==
[2023-12-11] VITALS (7 sets, daily range): BP systolic 140–166; BP diastolic 85–120; PULSE 100–114; RESP 17–26; TEMP 36.6–36.9; O2SAT 92–96; BMI 81.1
--- NOTE | 2023-12-11 14:28 | EDS_ITS ---
HPI History of Present Illness Chief Complaint: Abd Pain Informant: patient Onset/Context/Timing Onset: Today Narrative Narrative: Patient presents secondary to abdominal pain. He states he has pancreatic insufficiency and recently saw Dr. Sanchez on the . He is not currently on any medications for this. Today he has had increased periumbilical pain with vomiting and diarrhea. He does not believe he has had any blood associated with either his vomitus or stool. No fever or chills. PFSH [facility] Medical History Afib Amputation leg, bilat Anemia BPH loc w/o ur obs/LUTS CKD (chronic kidney disease) stage 3, GFR 30-59 ml/min Contracture of knee joint Delayed wound healing Essential hypertension Failure to thrive Gout Hypoglycemia Knee contracture Longstanding persistent atrial fibrillation Neuropathic pain, leg, bilateral Neuropathy Nonischemic cardiomyopathy Osteomyelitis of foot, right, acute Other specified peripheral vascular diseases Peripheral vascular occlusive disease Pressure ulcer, heel, right, unstageable Skin cancer Ulcer of right lower extremity with fat layer exposed Venous insufficiency Home Medications jerry contreras ##1 07/25/22 [Rx Last Taken Unknown] PB8- Probiotic PO 01/30/23 [History Last Taken Unknown] doxycycline hyclate 100 mg capsule 100 mg PO BID 01/30/23 [History Last Taken Unknown] vit d3 PO 08/02/23 [History Last Taken Unknown] apixaban 5 mg tablet 5 mg PO BID BLOOD THINNER #180 tabs 09/22/23 [Rx Last Taken Unknown] metoprolol tartrate 100 mg tablet 100 mg PO BID blood pressure #180 tabs 09/22/23 [Rx Last Taken Unknown] HI-Low bed #1 ea 10/25/23 [Rx Last Taken Unknown] hydrocodone-acetaminophen 5-325mg 5mg-325mg 1 tab PO Q6H PRN PRN Pain 3 days #10 TABLETS 12/11/23 [Rx Last Taken Unknown] metoclopramide HCl 10 mg tablet (Reglan) 10 mg PO Q6H PRN nausea and vomiting #14 tabs 12/11/23 [Rx Last Taken Unknown] Allergy/AdvReac Type Severity Reaction Status Date / Time codeine AdvReac Nausea Verified 12/11/23 13:11 Family History Mother Alzheimers disease Grandmother Alzheimers disease Brother Cancer prostate Surgical History History of appendectomy (1994) History of hernia repair 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/2019) History of tonsillectomy Social History Smoking Status: Current some day smoker tobacco type: cigarettes and cigars how long ago did patient quit smokin years ago alcohol intake: current alcohol intake frequency: a few times a month Alcohol type: beer substance use type: does not use caffeine: Yes Type: coffee Number of servings: 7 what type of physical activity do you participate in: none ROS ROS ED Constitutional Constitutional ED: Denies chills or fever(s) Eyes Eyes: Denies discharge from eye(s) ENT ENT ED: Denies discharge from eye(s), rhinorrhea or sore throat Cardiovascular Cardiovascular: Denies chest pain or palpitations Respiratory/Chest Respiratory/Chest: Denies cough or dyspnea Gastrointestinal Gastrointestinal: Reports abdominal pain, diarrhea, nausea and vomiting Genitourinary Genitourinary ED: Denies dysuria Musculoskeletal Musculoskeletal: Denies back pain or extremity pain Integumentary Denies Abrasions or rash Neurologic Neurologic: Denies headache(s) or weakness Allergic/Immunologic Allergic/Immunologic ED: Denies lip swelling or urticaria EXAM Physical Exam Const Vital Signs: 12/11/23 13:09 12/11/23 14:30 12/11/23 15:00 Temperature 97.8 F Temperature Source Temporal Pulse Rate 114 H 101 H 112 H Respiratory Rate 18 26 H 25 H Blood Pressure 160/120 H 166/106 H 155/96 H Blood Pressure Mean 133 123 112 Pulse Ox 96 93 92 Oxygen Delivery Method Room Air 12/11/23 16:00 Temperature Temperature Source Pulse Rate 111 H Respiratory Rate 21 H Blood Pressure 150/87 H Blood Pressure Mean 105 Pulse Ox 92 Oxygen Delivery Method Positive well nourished and well developed General Appearance ED: well developed HEENT Reports moist mucous membranes Eyes EOMs intact bilaterally Chest Wall inspection of chest normal and palpation of chest normal Resp normal respiratory effort and clear to auscultation bilaterally Cardio Rate: tachycardic Rhythm: abnormal rhythm irregularly irregular GI GI Narrative: Abdomen soft with mild diffuse tenderness. Hypoactive but present bowel sounds are noted. Extremity Extremity Narrative: Bilateral lower extremity below the knee amputations. Neuro oriented x3 Psych Mood & Affect: anxious MDM MDM MDM Narrative Medical decision making narrative: IV line established. Patient given fentanyl and Zofran along with IV fluids. Labwork obtained to evaluate for leukocytosis, anemia, and electrolyte derangement. Patient will undergo CT scan of the abdomen pelvis, but I will evaluate his renal function before ordering the CT. History & Record Review Discussion w/independent historian: Patient Lab Data Attestation: I reviewed the patient's lab results. Labs: Laboratory Results - last 24 hr 12/11/23 13:25 WBC 15.1 H RBC 5.29 Hgb 15.7 Hct 49.5 MCV 93.6 MCH 29.7 MCHC 31.7 L RDW Std Deviation 50.2 H RDW Coeff of Reinier 14.4 Plt Count 216 MPV 10.9 Immature Gran % (Auto) 0.400 Neut % (Auto) 89.6 H Lymph % (Auto) 4.1 L [place] % (Auto) 5.3 Eos % (Auto) 0.3 Baso % (Auto) 0.3 Absolute Neuts (auto) 13.5 H Absolute Lymphs (auto) 0.61 L Nucleated RBC % 0 Sodium 142 Potassium 4.1 Chloride 111 H Carbon Dioxide 27.0 Anion Gap 4 L BUN 24 H Creatinine 0.95 Estim Creat Clear Calc 58.27 Est GFR (MDRD) Af Amer 98 Est GFR (MDRD) Non-Af 81 BUN/Creatinine Ratio 25.3 H Glucose 118 H Calcium 9.6 Total Bilirubin 0.70 Direct Bilirubin 0.31 H AST 21 ALT 21 Alkaline Phosphatase 84 Total Protein 7.7 Albumin 3.7 Globulin 4.0 Lipase 21 Radiography Diagnostic Testing: Clinical Impression(s) from Imaging Studies Abdomen/Pelvis CT 12/11/23 15:06 IMPRESSION: Increased linear markings at the lung bases suggestive of atelectasis and/or scarring. Fluid distended stomach. Small right renal cyst. Sigmoid diverticulosis. Electronically Signed: Thor Mccallum MD at 16:00 EDT , Treatment and Re-Evaluation :: CBC was a white count of 15.1 with 89% neutrophils. Hemoglobin is normal at 15.7. Chemistry studies reveal normal potassium at 4.1. BUN is 24 and creatinine 0.95. Glucose is 118. LFTs significant only for direct bili slightly elevated at 0.31. Lipase is normal at 21. CT scan of the abdomen pelvis IV contrast reveals atelectasis at the lung bases. Fluid distended stomach is noted along with a small right renal cyst. Sigmoid diverticulosis is seen with no evidence of acute inflammation. On repeat evaluation patient resting comfortably. I will get him a prescription for Reglan and [place]. I did do an [facility] report and he has not had any narcotics in over a year. I will only write him 10 tabs. Return instructions provided. Discharge Plan Triage Chief Complaint: Abd Pain ED Provider: Mayi Roa Dx/Rx/DC Orders Clinical Impression: Gastroenteritis Instructions: ED Gastroenteritis, Viral (Adult) Prescriptions: New metoclopramide HCl [Reglan] 10 mg tablet 10 mg PO Q6H PRN (Reason: nausea and vomiting) Qty: 14 0RF hydrocodone-acetaminophen 5-325 mg tablet 1 tab PO Q6H PRN PRN (Reason: Pain) 3 Days Qty: 10 0RF No Action (DME) sharoniddora placard See Rx Instructions .Route .MEDSUPPLY Qty: 1 0RF Rx Instructions: 5 year rx 07/25/22-07/25/27 doxycycline hyclate 100 mg capsule 100 mg PO BID PB8- Probiotic PO metoprolol tartrate 100 mg tablet 100 mg PO BID Qty: 180 3RF apixaban 5 mg tablet 5 mg PO BID Qty: 180 3RF vit d3 PO (DME) HI-Low bed See Rx Instructions .Route .MEDSUPPLY Qty: 1 0RF Rx Instructions: 5 year RX 10/25/2023-10/25/2028 DX S88.911A amputation RLL S88.912A amputation LLL Primary Care Provider: Brittany Quiroga Referrals: Brittany Quiroga MD [Primary Care Provider] - Larry Sanchez MD [Non-Staff] - As soon as possible Disposition Disposition: Home, Self Care
[2023-12-11 14:42] LABS: Absolute Lymphocyte Count 0.61 X10^3/uL (0.83-4.51); Absolute Neutrophil Count 13.5 X10^3/uL (2.0-7.7); Basophil# 0.04 X10^3/uL; Basophil% 0.3 % (0-1); Eosinophil# 0.05 X10^3/uL; Eosinophils% 0.3 % (0-5); Hematocrit 49.5 % (40-54); Hemoglobin 15.7 g/dL (13.0-16.5); Lymphocyte # 0.61 X10^3/ul (0.83-4.51); Lymphocyte % 4.1 % (19-41); Mean Corp Hgb Conc 31.7 g/dL (32-36); Mean Corpuscular Hgb 29.7 pg (27.0-32.0); Mean Corpuscular Volume 93.6 fL (80-94); Mean Platelet Vol. 10.9 fl (6.2-12.0); Monocyte% 5.3 % (0-10); NRBC Flagged by Analyzer 0 % (0-5); Neutrophil # 13.49 X10^3/uL (2.7-7.7); Neutrophil % 89.6 % (47-70); Platelet Count 216 K/mm3 (150-450); RBC Distribution Width CV 14.4 % (11.6-14.6); RBC Distribution Width SD 50.2 fl (35.1-43.9); Red Blood Count 5.29 M/mm3 (4.6-6.2); White Blood Count 15.1 K/mm3 (4.4-11.0)
[2023-12-11] MEDS: fentaNYL 100 MCG/2 ML Ampul 25 MCG IV (14:42)
[2023-12-11] MEDS: Ondansetron 4 MG/2 ML Vial IV (14:42)
[2023-12-11] MEDS: 0.9% Normal Saline (1000mL) 1,000 ML 150 ML IV (14:45)
[2023-12-11 15:00] LABS: AST(SGOT) 21 U/L (15-37); Alanine Aminotransfer ALT/SGPT 21 U/L (16-61); Albumin, Serum 3.7 g/dL (3.2-5.0); Alkaline Phosphatase 84 U/L (45-117); Anion Gap 4 (5-15); BUN 24 mg/dL (7-18); BUN/Creat Ratio 25.3 RATIO (10-20); Bilirubin, Direct 0.31 mg/dL (0.00-0.30); Calcium,Total 9.6 mg/dL (8.5-10.1); Chloride 111 mmol/L (98-107); Creatinine, Serum 0.95 mg/dL (0.70-1.30); EST Glomerular Filtration Rate 81 mL/min (>60); Est Glom Filt Rate - Afr Amer 98 mL/min (>60); Estimated Creatinine Clearance 58.27 ml/min; Glucose 118 mg/dL (74-106); Lipase 21 U/L (13-75); Potassium 4.1 mmol/L (3.5-5.1); Protein, Total 7.7 g/dL (6.4-8.2); Sodium Level 142 mmol/L (136-145)
--- NOTE | 2023-12-11 15:06 | CT_ITS ---
STUDY: CT ABDOMEN AND PELVIS WITH CONTRAST REASON FOR EXAM: Male, 83 years old. Abdominal pain. RADIATION DOSAGE (If Supplied By Facility): CTDIvol = ( 18.72 ) mGy, DLP = ( 1333.62 ) mGycm TECHNIQUE: Transaxial images were obtained from the dome of the diaphragm to the symphysis pubis without oral contrast. IV 100mL Isovue-300 was administered. Sagittal and coronal images were reconstructed. Individualized dose optimization techniques were used for this CT. COMPARISON: None. FINDINGS: Increased linear markings at the lung bases with areas of confluence more prominent at the left base suggestive of atelectasis and/or scarring. Coronary artery calcification. Normal liver. Normal gallbladder and extrahepatic biliary system. Normal spleen. Normal pancreas. Normal bilateral adrenal glands. 1.3 cm cyst in the posterior midportion of the right kidney. Normal left kidney. Fluid distention of the stomach. Normal small intestine. There are multiple colonic diverticula consistent with diverticulosis. There are surgical clips in the region of the appendix consistent with a prior appendectomy. There is scattered atherosclerotic calcification of the abdominal aorta, without a demonstrated aneurysm. Normal inferior vena cava. Normal retroperitoneum. Normal urinary bladder. There are prostatic calcifications. Evidence of prior left inguinal hernia repair. There are degenerative changes of the visualized lumbar spine. CT/Abdomen/Pelvis W IV Cont ONLY IMPRESSION: Increased linear markings at the lung bases suggestive of atelectasis and/or scarring. Fluid distended stomach. Small right renal cyst. Sigmoid diverticulosis. Electronically Signed: Thor Mccallum MD at 16:00 EDT ,
--- NOTE | 2023-12-11 16:23 | ED.RN ---
Pt placed on O2 for low pulse ox when sleeping. Pt removed O2 stating it dorsey and that he won't be wearing it. RN provided education on reason for pt to wear the O2. Pt denies need.
--- NOTE | 2023-12-11 17:15 | ED.RN ---
[facility] CALLED, ETA 2 HOURS ([id number])
--- NOTE | 2023-12-11 17:18 | ED.RN ---
[facility] CALLED, ETA 2 HOURS ([id number])
[2023-12-11] MEDS: Metoclopramide 10 MG/2 ML Vial 5 MG IV (17:52)
[2023-12-11] MEDS: fentaNYL 100 MCG/2 ML Ampul 12.5 MCG IV (17:52)
== END 2023-12-11 19:35 | disposition home or self-care (01) ==
PROVIDERS: Emergency Provider Emergency Medicine; PCP Internal Medicine; Visit Provider Emergency Medicine
DX: K52.9 Noninfective gastroenteritis and colitis, unspecified (principal); N18.30 Chronic kidney disease, stage 3 unspecified; F17.210 Nicotine dependence, cigarettes, uncomplicated; K86.89 Other specified diseases of pancreas; I12.9 Hypertensive chronic kidney disease with stage 1 through stage 4 chronic kidney disease, or unspecified chronic kidney disease
CPT/HCPCS: 74177; 80048; 80076; 82653; 82705; 83690; 83993; 85025; 96361; 96374; 96375; 96376; 99283; Q9967; J2405

== ENCOUNTER → 2023-12-11 | Outpatient (CLI) | payer MEDICARE, SELFPAY ==
[2023-12-18 22:06] LABS: Calprotectin, Stool 50 ug/g (0-120); Fats, Neutral Normal (.); Fats, Total Normal (.)
[2023-12-19 14:09] LABS: Pancreatic Elastase, Fecal 58 (>200)
== END | disposition home or self-care (01) ==
PROVIDERS: PCP Internal Medicine; Referring Provider Internal Medicine Gastroenterology; Visit Provider Internal Medicine Gastroenterology
DX: R19.7 Diarrhea, unspecified (principal)
CPT/HCPCS: 82653; 82705; 83993

== ENCOUNTER → 2024-12-19 | Outpatient (CLI) | payer MEDICARE, SELFPAY ==
[2024-12-19 17:39] LABS: Absolute Lymphocyte Count 1.62 X10^3/uL (0.83-4.51); Basophil# 0.03 X10^3/uL; Basophil% 0.4 % (0-1); Eosinophil# 0.13 X10^3/uL; Eosinophils% 1.7 % (0-5); Hematocrit 45.7 % (40-54); Hemoglobin 14.8 g/dL (13.0-16.5); Lymphocyte # 1.62 X10^3/ul (0.83-4.51); Lymphocyte % 21.2 % (19-41); Mean Corp Hgb Conc 32.4 g/dL (32-36); Mean Corpuscular Hgb 29.9 pg (27.0-32.0); Mean Corpuscular Volume 92.3 fL (80-94); Mean Platelet Vol. 11.3 fl (6.2-12.0); Monocyte# 0.79 X10^3/uL; Monocyte% 10.4 % (0-10); NRBC Flagged by Analyzer 0 % (0-5); Neutrophil # 5.04 X10^3/uL (2.7-7.7); Platelet Count 200 K/mm3 (150-450); RBC Distribution Width CV 14.6 % (11.6-14.6); RBC Distribution Width SD 49.4 fl (35.1-43.9); Red Blood Count 4.95 M/mm3 (4.6-6.2); White Blood Count 7.6 K/mm3 (4.4-11.0)
[2024-12-19 18:41] LABS: ALB/GLOB Ratio 1.4 RATIO (0.9-2.4); AST(SGOT) 19 U/L (<=37); Alanine Aminotransfer ALT/SGPT 12 U/L (<=46); Albumin, Serum 4.3 g/dL (3.4-4.8); Alkaline Phosphatase 76 U/L (40-129); Anion Gap 11 (5-15); BUN 24 mg/dL (4-19); BUN/Creat Ratio 24.6 RATIO (10-20); Calcium,Total 9.9 mg/dL (7.6-11.0); Carbon Dioxide 25.4 mmol/L (21.0-32.0); Chloride 106 mmol/L (98-108); Creatinine, Serum 0.98 mg/dL (0.70-1.20); EST Glomerular Filtration Rate 76 (>60); Globulin 3.1 g/dL (2.2-4.2); Glucose 95 mg/dL (70-99); Hepatitis C Antibody Nonreactive (Nonreactive); Potassium 4.3 mmol/L (3.3-5.1); Protein, Total 7.4 g/dL (5.9-8.4); Sodium Level 143 mmol/L (133-145)
[2024-12-19 18:59] LABS: Thyroid Stim Hormone (TSH) 0.637 uIU/mL (0.300-4.200); Vitamin D,25 Hydroxy 19.4 ng/mL (30-100)
== END | disposition home or self-care (01) ==
LOC: LAB 16:11
PROVIDERS: PCP Internal Medicine; Referring Provider Family Medicine Geriatric Medicine; Visit Provider Family Medicine Geriatric Medicine
DX: I10 Essential (primary) hypertension (principal); E78.5 Hyperlipidemia, unspecified; E55.9 Vitamin D deficiency, unspecified; Z13.89 Encounter for screening for other disorder
CPT/HCPCS: 36415; 80053; 82306; 84443; 85025; 86803

== ENCOUNTER → 2025-06-24 | Outpatient (CLI) | payer MEDICARE, SELFPAY ==
[2025-06-24 15:25] LABS: Hematocrit 46.6 % (40-54); Hemoglobin 15.0 g/dL (13.0-16.5); Immature Granulocytes Count 0.020 X10^3/uL (0.0-0.0); Mean Corp Hgb Conc 32.2 g/dL (32-36); Mean Corpuscular Volume 93.0 fL (80-94); Mean Platelet Vol. 10.8 fl (6.2-12.0); NRBC Flagged by Analyzer 0 % (0-5); Platelet Count 181 K/mm3 (150-450); RBC Distribution Width CV 14.1 % (11.6-14.6); RBC Distribution Width SD 47.8 fl (35.1-43.9); Red Blood Count 5.01 M/mm3 (4.6-6.2); White Blood Count 6.4 K/mm3 (4.4-11.0)
[2025-06-24 16:36] LABS: AST(SGOT) 20 U/L (<=37); Alanine Aminotransfer ALT/SGPT 11 U/L (<=46); Albumin, Serum 4.2 g/dL (3.4-4.8); Alkaline Phosphatase 77 U/L (40-129); Anion Gap 11 (5-15); BUN 22 mg/dL (4-19); BUN/Creat Ratio 23.3 RATIO (10-20); Calcium,Total 9.5 mg/dL (7.6-11.0); Carbon Dioxide 27.0 mmol/L (21.0-32.0); Chloride 104 mmol/L (98-108); Globulin 3.1 g/dL (2.2-4.2); Glucose 123 mg/dL (70-99); Potassium 4.2 mmol/L (3.3-5.1); Vitamin D,25 Hydroxy 17.0 ng/mL (30-100)
[2025-06-24 23:14] LABS: Xtra Tube Kwok EXTRA TUBE
== END | disposition home or self-care (01) ==
LOC: POLAB3 15:12
PROVIDERS: PCP Family Medicine Geriatric Medicine; Visit Provider Family Medicine Geriatric Medicine
DX: I10 Essential (primary) hypertension (principal); E03.9 Hypothyroidism, unspecified; E55.9 Vitamin D deficiency, unspecified
CPT/HCPCS: 36415; 80053; 82306; 84443; 85025

== ENCOUNTER → 2025-08-13 07:06 | Outpatient (REF) | payer MEDICARE, SELFPAY ==
[2025-08-13 08:41] LABS: Hematocrit 43.4 % (40-54); Hemoglobin 13.8 g/dL (13.0-16.5); Mean Corp Hgb Conc 31.8 g/dL (32-36); Mean Corpuscular Volume 94.3 fL (80-94); Mean Platelet Vol. 11.1 fl (6.2-12.0); Platelet Count 200 K/mm3 (150-450); RBC Distribution Width CV 14.4 % (11.6-14.6); RBC Distribution Width SD 50.1 fl (35.1-43.9); Red Blood Count 4.60 M/mm3 (4.6-6.2); White Blood Count 6.8 K/mm3 (4.4-11.0)
[2025-08-13 09:20] LABS: Anion Gap 12 (5-15); BUN 19 mg/dL (4-19); BUN/Creat Ratio 20.2 RATIO (10-20); Calcium,Total 8.9 mg/dL (7.6-11.0); Carbon Dioxide 24.4 mmol/L (21.0-32.0); Chloride 104 mmol/L (98-108); Glucose 87 mg/dL (70-99); Potassium 4.0 mmol/L (3.3-5.1)
== END ==
LOC: OLS.SW 07:06
PROVIDERS: PCP Family Medicine Geriatric Medicine; Visit Provider Family Medicine
DX: I10 Essential (primary) hypertension (principal); E78.5 Hyperlipidemia, unspecified
CPT/HCPCS: 36415; 80048; 85027